=== PATIENT | male | born 1935 | race Caucasian/White ===

== ENCOUNTER 2023-09-01 16:44 | Inpatient (IN) ==
[2023-09-01] MEDS ORDERED: ACETAMINOPHEN 1,000 MG/100 ML VIAL IV STA (17:03)
[2023-09-01] MEDS ORDERED: ONDANSETRON INJ 2 MG/ML 2 ML VIAL IV STA (17:03)
[2023-09-01] MEDS ORDERED: LIDOCAINE/EPINEPH/TETRACAINE 1 EA SYR EXT STA (17:09)
--- NOTE | 2023-09-01 17:09 | Emergency Department Note ---
Impression & Plan Fall, Head injury, Contusion of scalp, Cervical strain, acute, Pneumonia ED Provider Note NAME: DWAYNE ASIF JR AGE: 87 SEX: M : 1935 ARRIVES VIA: Ambulance INFORMANT: Patient, the patient's significant other ED PROVIDER(S): Phill Zheng DO CHIEF COMPLAINT: Head injury HPI: The patient is an 87-year-old male who presented to the emergency department by ambulance after head injury. The patient was getting out of his vehicle. He tried to get his walker but states he fell backwards. He lost his balance and hit the back of his head. He also complains of upper neck pain. The patient arrived via ambulance. He complains of pain all over he has skin tears to both elbows. He complains of left hip pain which is not new. He also complains of headache. The patient does take anticoagulation. He was placed in a collar for cervical spine immobilization prior to arrival. ROS: See above HPI for pertinent positives & negatives. A total of 10 systems reviewed and were otherwise negative. PAST MEDICAL HISTORY: See Below PAST SURGICAL HISTORY: See Below FAMILY HISTORY: See Below SOCIAL HISTORY: See Below HOME MEDICATIONS: See Below ALLERGIES: See Below VITALS: See Below PHYSICAL EXAMINATION: GENERAL: Patient is awake alert in no acute distress patient is resting comfortably and showing no signs of anxiety EYES: The conjunctivae are clear. The pupils are round and reactive. EARS, NOSE, MOUTH AND THROAT: The nose is without any evidence of any deformity. There was swelling and hematoma noted to the back of the occipital scalp. There was a small abrasion but no active bleeding was noted. NECK: rigid cervical collar was placed prior to arrival. It remains in place at this time. RESPIRATORY: Normal respiratory effort is noted there is no evidence of wheezing rhonchi or rales CARDIOVASCULAR: Regular rate and rhythm noted there no murmurs rubs or gallops normal S1 normal S2. GASTROINTESTINAL: The abdomen is soft. Abdomen is nontender. BACK: No midline tenderness or or step-off noted range of motion in flexion extension as well as rotation no signs of muscle spasm noted MUSCULOSKELETAL/EXTREMITIES: There is no evidence of gross deformity full range of motion is noted in the hips and shoulders. There was pain with range of motion testing of the left hip as well as both elbows. No deformity was noted. SKIN: Pedal edema was noted bilaterally. Skin tears were noted on both elbows. NEUROLOGIC: Patient is awake alert and oriented x3. Strength was diminished but symmetric. MEDICAL DECISION MAKING: The patient is an 87-year-old male who presented to the emergency department for an evaluation after a fall. The patient had a fall where he struck the back of his head. He did have a hematoma on the back of his head. There is no area requiring suturing. The patient was placed in a cervical collar prior to arrival. He did have some neck pain. I discussed the patient's laboratory and radiographic studies with him. Given his age and comorbidities I do feel this pneumonia may require further inpatient management. For this reason I [facility] have agreed to evaluate the patient in the emergency department for further management and disposition. Triage Nursing notes reviewed. Prior medical records reviewed Vital Signs: reviewed and remarkable for bradycardia Differential diagnosis: Fracture, dislocation, contusion, intra-abdominal, pneumothorax, intrathoracic, intracranial, neurologic, compartment syndrome, rhabdomyolysis, as well as other pathologies. ER treatment provided: See below Diagnostics interpreted by me: ECG: EKG was obtained in the emergency department. My interpretation is ventricular paced rhythm at 50 bpm. There was no otoe-missouria beats noted. This was compared to a tracing from July 13, 2018. The earlier tracing does reveal atrial fibrillation with a right bundle branch block pattern. Cardiac Monitoring: An order was placed for continuous cardiac monitoring. The monitor shows a rate of 50 bpm with paced rhythm. Laboratory studies: As stated above and show below. Imaging studies: See below. Radiographic imaging was reviewed by myself Consultation(s): I discussed this case with Dr Lofton who [facility]. Past Med/Surg History Medical History (Updated 09/01/23 @ 21:49 by Phill Zheng DO) Arthritis Atrial fibrillation with rapid ventricular response Congestive heart failure Gait abnormality Ischemic cardiomyopathy Microcytic anemia Myocardial Infarction Pacemaker Permanent atrial fibrillation Systolic heart failure TIA (transient ischemic attack) Surgical History H/O hernia repair H/O percutaneous transluminal coronary angioplasty History of appendectomy Family History Father Stroke syndrome Sister Coronary heart disease Mother Cardiac disorder Social History Smoking Status: Unknown if ever smoked Cigarettes Per Day: 20; Second Hand Exposure: No; Do You Dip or Chew Tobacco: No; Hx Alcohol Use: No Hx Substance Use: No Preferred Language: Lao Communication Ability: Effective Visual Impairment: No Limitations Hearing Ability: Normal Quality Control Lead Required: No Beliefs That Will Affect Care: None Current Living Situation: Spouse Current Living Situation Comment: Michelle independent living Feels Safe at Home: Yes Childhood Exposure to Second-Hand Smoke: No caffeine: Yes Dental Care, Regularly: Yes Physical Activity Frequency: 1-2 Times per Week Seatbelt Use: always Sunscreen Use: No Assistive Devices: Walker Allergies Allergies Allergy/AdvReac Type Severity Reaction Status Date / Time No Known Allergies Allergy Verified 09/01/23 20:21 Home Meds Home Medications Medication Instructions Recorded Confirmed nitroglycerin 0.4 mg sublingual 0.4 mg PO UD PRN Chest Pain ##0 07/06/14 09/01/23 tablet rosuvastatin 5 mg tablet 5 mg PO MWF ##0 07/06/14 09/01/23 clopidogrel 75 mg tablet 75 mg PO HS #0 tabs 03/26/18 09/01/23 coenzyme Q10 200 mg capsule 200 mg PO DAILY ##0 03/26/18 09/01/23 digoxin 125 mcg (0.125 mg) tablet 0.125 mg PO 3XWK ##0 03/26/18 09/01/23 furosemide 20 mg tablet 40 mg PO QAM #0 tabs 03/26/18 09/01/23 cholecalciferol (vitamin D3) 50 2,000 units PO DAILY #0 tabs 07/14/19 09/01/23 mcg (2,000 unit) tablet cetirizine 10 mg tablet 10 mg PO DAILY 07/16/20 09/01/23 sacubitril 24 mg-valsartan 26 mg 0.5 tab PO BID 07/16/20 02/23/23 tablet (Entresto) ipratropium bromide 21 mcg (0.03 1 spray intranasal UD 09/01/23 09/01/23 %) nasal spray levothyroxine 75 mcg tablet 75 mcg PO DAILYBB 09/01/23 09/01/23 metoprolol succinate 50 mg 50 mg PO UD 09/01/23 09/01/23 tablet,extended release 24 hr warfarin 5 mg tablet See Rx Instructions .Route .COMPLEX 09/01/23 09/01/23 Previous Rx's Medication Instructions Recorded diclofenac sodium 1 % topical gel 2 g topical QID PRN back pain #100 02/10/22 grams Results & Data (ED) Vital Signs Vital Signs - 24 hr 09/01/23 16:57 09/01/23 17:03 09/01/23 17:08 Temperature 36.7 C Temperature Source Axillary Pulse Rate 51 L 57 L Pulse Rate from SpO2 Sensor Respiratory Rate 20 Blood Pressure 128/80 Blood Pressure [Left Arm] Blood Pressure Mean 96 Blood Pressure Mean [Left Arm] Pulse Oximetry 94 94 Oxygen Delivery Method Room Air Room Air Sepsis Recent Fever Within 48 Hours No Sepsis New/Unexplained Change in Mental Status N/A Sepsis Action Taken by Nursing No Action Required 09/01/23 19:47 09/01/23 16:56 09/01/23 17:00 Temperature Temperature Source Pulse Rate 51 L 50 L Pulse Rate from SpO2 Sensor 51 L 50 L Respiratory Rate 13 18 Blood Pressure Blood Pressure [Left Arm] 120/75 Blood Pressure Mean Blood Pressure Mean [Left Arm] 90 Pulse Oximetry 94 94 Oxygen Delivery Method Sepsis Recent Fever Within 48 Hours Sepsis New/Unexplained Change in Mental Status Sepsis Action Taken by Nursing 09/01/23 17:10 09/01/23 17:20 09/01/23 17:30 Temperature Temperature Source Pulse Rate 50 L 51 L Pulse Rate from SpO2 Sensor 50 L 50 L 50 L Respiratory Rate 20 21 Blood Pressure Blood Pressure [Left Arm] Blood Pressure Mean Blood Pressure Mean [Left Arm] Pulse Oximetry 95 97 95 Oxygen Delivery Method Sepsis Recent Fever Within 48 Hours Sepsis New/Unexplained Change in Mental Status Sepsis Action Taken by Nursing 09/01/23 17:40 09/01/23 17:50 09/01/23 18:00 Temperature Temperature Source Pulse Rate 51 L 50 L 50 L Pulse Rate from SpO2 Sensor 51 L 49 L 50 L Respiratory Rate 25 H 21 19 Blood Pressure Blood Pressure [Left Arm] Blood Pressure Mean Blood Pressure Mean [Left Arm] Pulse Oximetry 91 98 96 Oxygen Delivery Method Sepsis Recent Fever Within 48 Hours Sepsis New/Unexplained Change in Mental Status Sepsis Action Taken by Nursing 09/01/23 18:10 09/01/23 18:20 09/01/23 18:30 Temperature Temperature Source Pulse Rate 50 L 50 L 50 L Pulse Rate from SpO2 Sensor 50 L 50 L 50 L Respiratory Rate 22 22 22 Blood Pressure Blood Pressure [Left Arm] Blood Pressure Mean Blood Pressure Mean [Left Arm] Pulse Oximetry 95 95 97 Oxygen Delivery Method Sepsis Recent Fever Within 48 Hours Sepsis New/Unexplained Change in Mental Status Sepsis Action Taken by Nursing 09/01/23 18:40 09/01/23 18:50 09/01/23 19:17 Temperature Temperature Source Pulse Rate 50 L 50 L 54 L Pulse Rate from SpO2 Sensor 50 L Respiratory Rate 21 15 Blood Pressure Blood Pressure [Left Arm] Blood Pressure Mean Blood Pressure Mean [Left Arm] Pulse Oximetry 95 91 Oxygen Delivery Method Sepsis Recent Fever Within 48 Hours Sepsis New/Unexplained Change in Mental Status Sepsis Action Taken by Nursing 09/01/23 19:20 09/01/23 19:30 09/01/23 19:40 Temperature Temperature Source Pulse Rate 52 L 50 L 50 L Pulse Rate from SpO2 Sensor 50 L 50 L Respiratory Rate 23 21 14 Blood Pressure Blood Pressure [Left Arm] Blood Pressure Mean Blood Pressure Mean [Left Arm] Pulse Oximetry 96 96 Oxygen Delivery Method Sepsis Recent Fever Within 48 Hours Sepsis New/Unexplained Change in Mental Status Sepsis Action Taken by Nursing 09/01/23 21:00 Temperature Temperature Source Pulse Rate 50 L Pulse Rate from SpO2 Sensor Respiratory Rate Blood Pressure Blood Pressure [Left Arm] Blood Pressure Mean Blood Pressure Mean [Left Arm] Pulse Oximetry Oxygen Delivery Method Sepsis Recent Fever Within 48 Hours Sepsis New/Unexplained Change in Mental Status Sepsis Action Taken by Long-Term Medications Current Medication List: was personally reviewed by me Laboratory Data Attestation: I reviewed the patient's lab results. 09/01/23 15:01 09/01/23 15:01 Lab Results 09/01/23 09/01/23 09/01/23 Range/Units 15:01 15:01 15:01 WBC 6.92 (4.8-10.8) K/ul RBC 4.06 L (4.70-6.10) M/uL Hgb 14.1 (14.0-18.0) g/dl Hct 40.7 L (42.0-52.0) % MCV 100.2 H (80.0-100.0) fL MCH 34.7 H (25.0-34.0) pg MCHC 34.6 (32.0-36.0) g/dL RDW Std Deviation 50.9 H (36.4-46.3) fL RDW Coeff of Ming 13.8 (11.5-14.5) % Plt Count 167 (130-400) K/uL MPV 10.5 (9.4-12.4) fL Immature Gran % (Auto) 0.9 % Neut % (Auto) 69.8 % Lymph % (Auto) 19.9 % Island % (Auto) 7.1 % Eos % (Auto) 1.7 % Baso % (Auto) 0.6 % Neut # (Auto) 4.83 (1.40-6.50) K/uL Lymph # (Auto) 1.38 (1.20-3.40) K/uL Island # (Auto) 0.49 (0.11-0.59) K/uL Eos # (Auto) 0.12 (0.00-0.50) K/uL Baso # (Auto) 0.04 (0.00-0.20) K/uL Immature Gran # (Auto) 0.06 (0.01-0.20) K/uL PT 27.6 H (9.0-12.0) Seconds INR 2.7 H (0.9-1.1) APTT 32.3 H (21.0-31.0) Seconds PTT Ratio 1.1 Sodium 140 (136-145) mmol/L Potassium 4.4 (3.5-5.1) mmol/L Chloride 107 (98-107) mmol/L Carbon Dioxide 27 (21-32) mmol/L Anion Gap 6 (3-11) BUN 28 H (6-23) mg/dl Creatinine 1.05 (0.6-1.4) mg/dl Est Cr Clr Drug Dosing Not Reportable Est GFR ( Amer) 73.1 ml/min Est GFR (Non-Af Amer) 63.1 ml/min BUN/Creatinine Ratio 26.7 H (10-20) Glucose 109 H (70-99(Fasting)) mg/dl Lactate (0.4-2.0) mmol/L Calcium 9.5 (8.6-10.3) mg/dl Magnesium 2.1 (1.7-2.4) mg/dl Total Bilirubin 1.0 (0.2-1.0) mg/dl AST 24 (13-39) U/L ALT 17 (7-52) U/L Alkaline Phosphatase 76 (34-104) U/L Troponin I High Sens 55.6 H* (0-20) pg/ml C-Reactive Protein < 0.50 (0-0.5) mg/dl Total Protein 7.0 (6.0-8.3) gm/dl Albumin 3.9 (3.4-5.0) gm/dl Globulin 3.1 (2.5-4.0) gm/dl Albumin/Globulin Ratio 1.3 (0.9-2) Procalcitonin (0-0.5) ng/ml TSH 6.583 H (0.300-4.500) uIu/ml Free T4 1.03 (0.61-1.60) ng/dl Digoxin (0.8-2.0) ng/ml Adenovirus (PCR) (NotDetected) B. pertussis DNA (PCR) (NotDetected) B.parapertussis DNA PCR (NotDetected) C. pneumoniae DNA (PCR) (NotDetected) Coronavirus OC43 (PCR) (NotDetected) Coronavirus HKU1 (PCR) (NotDetected) Coronavirus 229E (PCR) (NotDetected) SARS-CoV-2 (PCR) (NotDetected) Coronavirus NL63 (PCR) (NotDetected) Human Metapneumovir PCR (NotDetected) Influenza Type A (PCR) (NotDetected) Influenza Type B (PCR) (NotDetected) M. pneumoniae (PCR) (NotDetected) Parainfluenza 1 (PCR) (NotDetected) Parainfluenza 2 (PCR) (NotDetected) Parainfluenza 3 (PCR) (NotDetected) Parainfluenza 4 (PCR) (NotDetected) RSV (PCR) (NotDetected) Entero/Rhino (PCR) (NotDetected) 09/01/23 09/01/23 09/01/23 Range/Units 15:01 15:01 18:43 WBC (4.8-10.8) K/ul RBC (4.70-6.10) M/uL Hgb (14.0-18.0) g/dl Hct (42.0-52.0) % MCV (80.0-100.0) fL MCH (25.0-34.0) pg MCHC (32.0-36.0) g/dL RDW Std Deviation (36.4-46.3) fL RDW Coeff of Ming (11.5-14.5) % Plt Count (130-400) K/uL MPV (9.4-12.4) fL Immature Gran % (Auto) % Neut % (Auto) % Lymph % (Auto) % Island % (Auto) % Eos % (Auto) % Baso % (Auto) % Neut # (Auto) (1.40-6.50) K/uL Lymph # (Auto) (1.20-3.40) K/uL Island # (Auto) (0.11-0.59) K/uL Eos # (Auto) (0.00-0.50) K/uL Baso # (Auto) (0.00-0.20) K/uL Immature Gran # (Auto) (0.01-0.20) K/uL PT (9.0-12.0) Seconds INR (0.9-1.1) APTT (21.0-31.0) Seconds PTT Ratio Sodium (136-145) mmol/L Potassium (3.5-5.1) mmol/L Chloride (98-107) mmol/L Carbon Dioxide (21-32) mmol/L Anion Gap (3-11) BUN (6-23) mg/dl Creatinine (0.6-1.4) mg/dl Est Cr Clr Drug Dosing Est GFR ( Amer) ml/min Est GFR (Non-Af Amer) ml/min BUN/Creatinine Ratio (10-20) Glucose (70-99(Fasting)) mg/dl Lactate (0.4-2.0) mmol/L Calcium (8.6-10.3) mg/dl Magnesium (1.7-2.4) mg/dl Total Bilirubin (0.2-1.0) mg/dl AST (13-39) U/L ALT (7-52) U/L Alkaline Phosphatase (34-104) U/L Troponin I High Sens (0-20) pg/ml C-Reactive Protein (0-0.5) mg/dl Total Protein (6.0-8.3) gm/dl Albumin (3.4-5.0) gm/dl Globulin (2.5-4.0) gm/dl Albumin/Globulin Ratio (0.9-2) Procalcitonin < 0.05 (0-0.5) ng/ml TSH (0.300-4.500) uIu/ml Free T4 (0.61-1.60) ng/dl Digoxin 0.5 L (0.8-2.0) ng/ml Adenovirus (PCR) Not Detected (NotDetected) B. pertussis DNA (PCR) Not Detected (NotDetected) B.parapertussis DNA PCR Not Detected (NotDetected) C. pneumoniae DNA (PCR) Not Detected (NotDetected) Coronavirus OC43 (PCR) Not Detected (NotDetected) Coronavirus HKU1 (PCR) Not Detected (NotDetected) Coronavirus 229E (PCR) Not Detected (NotDetected) SARS-CoV-2 (PCR) Not Detected (NotDetected) Coronavirus NL63 (PCR) Not Detected (NotDetected) Human Metapneumovir PCR Not Detected (NotDetected) Influenza Type A (PCR) Not Detected (NotDetected) Influenza Type B (PCR) Not Detected (NotDetected) M. pneumoniae (PCR) Not Detected (NotDetected) Parainfluenza 1 (PCR) Not Detected (NotDetected) Parainfluenza 2 (PCR) Not Detected (NotDetected) Parainfluenza 3 (PCR) Not Detected (NotDetected) Parainfluenza 4 (PCR) Not Detected (NotDetected) RSV (PCR) Not Detected (NotDetected) Entero/Rhino (PCR) Not Detected (NotDetected) 09/01/23 09/01/23 Range/Units 19:48 19:48 WBC (4.8-10.8) K/ul RBC (4.70-6.10) M/uL Hgb (14.0-18.0) g/dl Hct (42.0-52.0) % MCV (80.0-100.0) fL MCH (25.0-34.0) pg MCHC (32.0-36.0) g/dL RDW Std Deviation (36.4-46.3) fL RDW Coeff of Ming (11.5-14.5) % Plt Count (130-400) K/uL MPV (9.4-12.4) fL Immature Gran % (Auto) % Neut % (Auto) % Lymph % (Auto) % Island % (Auto) % Eos % (Auto) % Baso % (Auto) % Neut # (Auto) (1.40-6.50) K/uL Lymph # (Auto) (1.20-3.40) K/uL Island # (Auto) (0.11-0.59) K/uL Eos # (Auto) (0.00-0.50) K/uL Baso # (Auto) (0.00-0.20) K/uL Immature Gran # (Auto) (0.01-0.20) K/uL PT (9.0-12.0) Seconds INR (0.9-1.1) APTT (21.0-31.0) Seconds PTT Ratio Sodium (136-145) mmol/L Potassium (3.5-5.1) mmol/L Chloride (98-107) mmol/L Carbon Dioxide (21-32) mmol/L Anion Gap (3-11) BUN (6-23) mg/dl Creatinine (0.6-1.4) mg/dl Est Cr Clr Drug Dosing Est GFR ( Amer) ml/min Est GFR (Non-Af Amer) ml/min BUN/Creatinine Ratio (10-20) Glucose (70-99(Fasting)) mg/dl Lactate 1.5 (0.4-2.0) mmol/L Calcium (8.6-10.3) mg/dl Magnesium (1.7-2.4) mg/dl Total Bilirubin (0.2-1.0) mg/dl AST (13-39) U/L ALT (7-52) U/L Alkaline Phosphatase (34-104) U/L Troponin I High Sens 57.4 H* (0-20) pg/ml C-Reactive Protein < 0.50 (0-0.5) mg/dl Total Protein (6.0-8.3) gm/dl Albumin (3.4-5.0) gm/dl Globulin (2.5-4.0) gm/dl Albumin/Globulin Ratio (0.9-2) Procalcitonin (0-0.5) ng/ml TSH (0.300-4.500) uIu/ml Free T4 (0.61-1.60) ng/dl Digoxin (0.8-2.0) ng/ml Adenovirus (PCR) (NotDetected) B. pertussis DNA (PCR) (NotDetected) B.parapertussis DNA PCR (NotDetected) C. pneumoniae DNA (PCR) (NotDetected) Coronavirus OC43 (PCR) (NotDetected) Coronavirus HKU1 (PCR) (NotDetected) Coronavirus 229E (PCR) (NotDetected) SARS-CoV-2 (PCR) (NotDetected) Coronavirus NL63 (PCR) (NotDetected) Human Metapneumovir PCR (NotDetected) Influenza Type A (PCR) (NotDetected) Influenza Type B (PCR) (NotDetected) M. pneumoniae (PCR) (NotDetected) Parainfluenza 1 (PCR) (NotDetected) Parainfluenza 2 (PCR) (NotDetected) Parainfluenza 3 (PCR) (NotDetected) Parainfluenza 4 (PCR) (NotDetected) RSV (PCR) (NotDetected) Entero/Rhino (PCR) (NotDetected) Administered Medications Discontinued Medications Acetaminophen (Ofirmev) 1,000 mg in 100 mls @ 400 mls/hr IV NOW STA Stop: 09/01/23 17:17 Last Infusion: 09/01/23 18:02 Dose: 0 mls/hr Documented By: Admin: 09/01/23 17:47 Dose: 400 mls/hr Documented By: SAW Ceftriaxone Sodium (Rocephin) 2,000 mg in 50 mls @ 100 mls/hr IV NOW STA Stop: 09/01/23 20:18 Last Infusion: 09/01/23 20:50 Dose: 0 mls/hr Documented By: Admin: 09/01/23 20:04 Dose: 100 mls/hr Documented By: MELY Lidocaine (Lidocaine/Epineph/Tetracaine 1 Ea Syr) 1 each EXT NOW STA Stop: 09/01/23 17:10 Last Admin: 09/01/23 17:47 Dose: 1 each Documented By: ML Ondansetron HCl (Ondansetron Inj 2 Mg/Ml 2 Ml Vial) 4 mg IV NOW STA Stop: 09/01/23 17:04 Last Admin: 09/01/23 17:47 Dose: 4 mg Documented By: ML Imaging Data Attestation: I personally reviewed and interpreted this imaging study as follows: My Impression: 1 view chest x-ray was obtained in the emergency department. My interpretation is no free air, right upper lobe infiltrate was noted, final report below. CT of the brain was obtained in the emergency department. My interpretation is no intracranial hemorrhage or mass effect, final report below. X-ray of the left hip and pelvis was obtained in the emergency department. My interpretation is no definite fracture, final report below. Radiologist's Impression: Cervical Spine CT 09/01/23 17:03 Exam(s): CT C SPINE EXAM: CT Cervical Spine Without Intravenous Contrast CLINICAL HISTORY: Reason for exam: fall. TECHNIQUE: Axial computed tomography images of the cervical spine without intravenous contrast. CTDI is 37.22 mGy and DLP is 1229.05 mGy-cm. Automated exposure control was utilized for the study. A dose lowering technique was utilized adhering to the principles of ALARA. COMPARISON: No relevant prior studies available. FINDINGS: The vertebral body heights are maintained. The craniocervical junction is intact. The atlanto-dens interval is maintained. The dens is intact. There is no spondylolisthesis. Multilevel cervical spondylosis and degenerative disc disease. Straightening of the cervical lordosis. The unenhanced neck soft tissues are grossly unremarkable. The visualized lung apices are grossly clear. IMPRESSION: No acute fracture or subluxation of the cervical spine. Electronically signed by: Danial Kapoor MD 09/01/23 19:51 PM Chest X-Ray 09/01/23 17:03 XR chest 1V portable HISTORY: weakness COMPARISON: Chest 01/28/2022. FINDINGS: No pneumothorax. No pleural effusions. The cardiac silhouette remains enlarged. There is a left-sided pacemaker/defibrillator again noted. No evidence for pulmonary edema. The left lung is clear. There is a new right upper lobe hazy airspace opacity. This likely represents a pneumonia. IMPRESSION: 1. A new right upper lobe airspace opacity which likely represents a pneumonia. 1-2 month chest x-ray follow-up recommended to ensure resolution. 2. Stable cardiomegaly. ACT 112: Negative or not required by law. Electronically signed by: Anatoliy Cardoza M.D. 09/01/2023 5:52 PM Elbow X-Ray 09/01/23 17:03 XR elbow LT min 3V routine, XR elbow RT min 3V routine CLINICAL HISTORY: fall. Bilateral elbow pain. COMPARISON STUDY: None. FINDINGS: Posterior soft tissue swelling within the bilateral elbows. No fracture or dislocation within the right or left elbow. No elbow effusions. Vascular calcifications are noted. IMPRESSION: No fractures within the right or left elbow. ACT 112: Negative or not required by law. Electronically signed by: Anatoliy Cardoza M.D. 09/01/2023 5:54 PM Elbow X-Ray 09/01/23 17:03 XR elbow LT min 3V routine, XR elbow RT min 3V routine CLINICAL HISTORY: fall. Bilateral elbow pain. COMPARISON STUDY: None. FINDINGS: Posterior soft tissue swelling within the bilateral elbows. No fracture or dislocation within the right or left elbow. No elbow effusions. Vascular calcifications are noted. IMPRESSION: No fractures within the right or left elbow. ACT 112: Negative or not required by law. Electronically signed by: Anatoliy Cardoza M.D. 09/01/2023 5:[address] 09/01/23 17:03 Exam(s): CT HEAD Without Contrast EXAM: CT Head Without Intravenous Contrast CLINICAL HISTORY: Reason for exam: fall. TECHNIQUE: Axial computed tomography images of the head/brain without intravenous contrast. CTDI is 37.22 mGy and DLP is 1229.05 mGy-cm. Automated exposure control was utilized for the study. A dose lowering technique was utilized adhering to the principles of ALARA. COMPARISON: No relevant prior studies available. FINDINGS: No acute intracranial hemorrhage. No midline shift or mass effect. The territorial alcala-white matter differentiation is maintained throughout. Age-related cerebral volume loss. Periventricular and subcortical white matter hypoattenuation, consistent with chronic microangiopathy. The visualized orbits appear grossly unremarkable. The calvarium is intact. The visualized paranasal sinuses and mastoid air cells are grossly clear. IMPRESSION: No acute intracranial hemorrhage, midline shift, or mass effect. Electronically signed by: Danial Kapoor MD 09/01/23 19:51 PM Hip/Pelvis X-Ray 09/01/23 17:03 XR hip LT 2V w pelvis CLINICAL HISTORY: fall. Pelvic pain. COMPARISON STUDY: Pelvis and hips 12/07/2013. FINDINGS: No acute fracture or dislocation within the pelvis or hips. Vascular calcifications are noted. The sacrum appears intact. Moderate to severe right hip osteoarthritis. There is severe left hip osteoarthritis with [id number] articulation, large osteophytes, and subchondral sclerosis. There is flattening of the superior aspect of the femoral head which is likely due to the long- standing severe osteoarthritis. A superimposed avascular necrosis would be difficult to exclude. IMPRESSION: 1. No acute fracture or dislocation within the pelvis or hips. 2. 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 3. There is flattening of the superior aspect of the femoral head which is likely due to the long-standing severe osteoarthritis. A superimposed avascular necrosis would be difficult to exclude. ACT 112: Negative or not required by law. Electronically signed by: Anatoliy Cardoza M.D. 09/01/2023 5:57 PM Discharge Plan Visit Data Chief Complaint: Fall Stated Complaint: FALL ED Provider: Phill Zheng Discharge Problem: Fall, Head injury, Contusion of scalp, Cervical strain, acute, Pneumonia Patient Disposition: Being Evaluated by Hospitalist Forms Stand Alone Forms: [facility] [employer] Prescriptions Prescriptions: No Action nitroglycerin 0.4 mg Tablet, Sublingual 0.4 mg PO UD PRN (Reason: Chest Pain) Qty: 0 rosuvastatin 5 mg Tablet 5 mg PO MWF Qty: 0 Patient Comments: PM clopidogrel 75 mg Tablet 75 mg PO HS Qty: 0 digoxin 125 mcg Tablet 0.125 mg PO 3XWK Qty: 0 Patient Comments: TAKE , , WED Rx Instructions: PT TAKES Wednesday AND WEDNESDAY furosemide 20 mg Tablet 40 mg PO QAM Qty: 0 coenzyme Q10 200 mg Capsule 200 mg PO DAILY Qty: 0 cholecalciferol (vitamin D3) 2,000 unit tablet 2,000 units PO DAILY Qty: 0 Entresto 24-26 mg tablet 0.5 tab PO BID cetirizine 10 mg tablet 10 mg PO DAILY diclofenac sodium 1 % gel 2 g topical QID PRN (Reason: back pain) Qty: 100 2RF Rx Instructions: apply to back metoprolol succinate 50 mg tablet extended release 24 hr 50 mg PO UD Rx Instructions: take 2 tablets in the morning and 1 & 1/2 tablet in the evening ipratropium bromide 21 mcg (0.03 %) spray,non-aerosol 1 spray INTRANASAL UD levothyroxine 75 mcg tablet 75 mcg PO DAILYBB Rx Instructions: Take 1 tablet by mouth once daily warfarin 5 mg tablet See Rx Instructions .ROUTE .COMPLEX Rx Instructions: 2.5 mg orally in the evening of MON,WED,FRI....take 5 mg all other days Referrals Referrals: PCP,NO [Physician] -
[2023-09-01 17:38] LABS: Alanine Aminotransferase 17 U/L (7-52); Albumin Globulin Ratio 1.3 (0.9-2); Albumin Level 3.9 gm/dl (3.4-5.0); Alkaline Phosphatase 76 U/L (34-104); Anion Gap 6 (3-11); Aspartate Aminotransferase 24 U/L (13-39); BUN Creatinine Ratio 26.7 (10-20); Blood Urea Nitrogen 28 mg/dl (6-23); Calcium 9.5 mg/dl (8.6-10.3); Carbon Dioxide 27 mmol/L (21-32); Chloride 107 mmol/L (98-107); Est GFR (African American) 73.1 ml/min; Est GFR (Non-African American) 63.1 ml/min; Globulin 3.1 gm/dl (2.5-4.0); Glucose 109 mg/dl (70-99(Fasting)); Magnesium 2.1 mg/dl (1.7-2.4); Potassium 4.4 mmol/L (3.5-5.1); Sodium 140 mmol/L (136-145)
[2023-09-01 17:39] LABS: Basophils # (auto) 0.04 K/uL (0.00-0.20); Basophils % (auto) 0.6 %; Eosinophils # (auto) 0.12 K/uL (0.00-0.50); Eosinophils % (auto) 1.7 %; Hematocrit (blood only) 40.7 % (42.0-52.0); Hemoglobin 14.1 g/dl (14.0-18.0); Immature Granulocytes # (auto) 0.06 K/uL (0.01-0.20); Immature Granulocytes % (auto) 0.9 %; Lymphocytes # (auto) 1.38 K/uL (1.20-3.40); Lymphocytes % (auto) 19.9 %; Mean Corpuscular Hemoglobin 34.7 pg (25.0-34.0); Mean Corpuscular Hgb Conc 34.6 g/dL (32.0-36.0); Mean Corpuscular Volume 100.2 fL (80.0-100.0); Mean Platelet Volume 10.5 fL (9.4-12.4); Monocytes # (auto) 0.49 K/uL (0.11-0.59); Monocytes % (auto) 7.1 %; Neutrophils # (auto) 4.83 K/uL (1.40-6.50); Neutrophils % (auto) 69.8 %; Platelet Count 167 K/uL (130-400); RDW Coefficient of Variation 13.8 % (11.5-14.5); RDW Standard Deviation 50.9 fL (36.4-46.3); Red Blood Count 4.06 M/uL (4.70-6.10); White Blood Count 6.92 K/ul (4.8-10.8)
[2023-09-01 17:47] LABS: INR 2.7 (0.9-1.1); Partial Thromboplastin Ratio 1.1; Partial Thromboplastin Time 32.3 Seconds (21.0-31.0); Prothrombin Time 27.6 Seconds (9.0-12.0)
--- NOTE | 2023-09-01 17:53 | XRay Report ---
XR chest 1V portable HISTORY: weakness COMPARISON: Chest 01/28/2022. FINDINGS: No pneumothorax. No pleural effusions. The cardiac silhouette remains enlarged. There is a left-sided pacemaker/defibrillator again noted. No evidence for pulmonary edema. The left lung is bay ar. There is a new right upper lobe hazy airspace opacity. This likely represents a pneumonia. IMPRESSION: 1. A new right upper lobe airspace opacity which likely represents a pneumonia. 1-2 month chest x-ray follow-up recommended to ensure resolution. 2. Stable cardiomegaly. ACT 112: Negative or not required by law. Electronically signed by: Anatoliy Cardoza M.D. 09/01/2023 5:52 PM
[2023-09-01 17:54] LABS: Thyroid Stimulating Hormone 6.583 uIu/ml (0.300-4.500)
--- NOTE | 2023-09-01 17:55 | XRay Report ---
XR elbow LT min 3V routine, XR elbow RT min 3V routine CLINICAL HISTORY: fall. Bilateral elbow pain. COMPARISON STUDY: None. FINDINGS: Posterior soft tissue swelling within the bilateral elbows. No fracture or dislocation with in the right or left elbow. No elbow effusions. Vascular calcifications are noted. IMPRESSION: No fractures within the right or left elbow. ACT 112: Negative or not required by law. Electronically signed by: Anatoliy Cardoza M.D. 09/01/2023 5:54 PM
--- NOTE | 2023-09-01 17:58 | XRay Report ---
XR hip LT 2V w pelvis CLINICAL HISTORY: fall. Pelvic pain. COMPARISON STUDY: Pelvis and hips 12/07/2013. FINDINGS: No acute fracture or dislocation within the pelvis or hips. Vascular calcifications are not ed. The sacrum appears intact. Moderate to severe right hip osteoarthritis. There is severe left hip osteoarthritis with [id number]-bj-[id number] articulation, large osteophytes, and subchondral sclerosis. There is flattening of the superior aspect of the femoral head which is likely due to the long-standing sever e osteoarthritis. A superimposed avascular necrosis would be difficult to exclude. IMPRESSION: 1. No acute fracture or dislocation within the pelvis or hips. 2. 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 3. There is flattening of the superior aspect of the femoral head which is likely due to the long-sta nding severe osteoarthritis. A superimposed avascular necrosis would be difficult to exclude. ACT 112: Negative or not required by law. Electronically signed by: Anatoliy Cardoza M.D. 09/01/2023 5:57 PM
[2023-09-01 18:03] LABS: Troponin I High Sensitivity 55.6 pg/ml (0-20)
[2023-09-01 18:27] LABS: T4 Free Thyroxine 1.03 ng/dl (0.61-1.60)
[2023-09-01 18:55] LABS: C Reactive Protein < 0.50 mg/dl (0-0.5)
[2023-09-01] MEDS ORDERED: cefTRIAXone SODIUM 2,000 MG/50 ML BAG IV STA (19:49)
--- NOTE | 2023-09-01 19:51 | CT Scan Report ---
Exam(s): CT HEAD Without Contrast EXAM: CT Head Without Intravenous Contrast CLINICAL HISTORY: Reason for exam: fall. TECHNIQUE: Axial computed tomography images of the head/brain without intravenous contrast. CTDI is 37.22 mGy and DLP is 1229.05 mGy-cm. Automated exposure control was utilized for the study. A dose lowering technique was utilized adhering to the principles of ALARA. COMPARISON: No relevant prior studies available. FINDINGS: No acute intracranial hemorrhage. No midline shift or mass effect. The territorial alcala-white matter differentiation is maintained throughout. Age-related cerebral volume loss. Periventricular and subcortical white matter hypoattenuation, consistent with chronic microangiopathy. The visualized orbits appear grossly unremarkable. The calvarium is intact. The visualized paranasal sinuses and mastoid air cells are grossly clear. IMPRESSION: No acute intracranial hemorrhage, midline shift, or mass effect. Electronically signed by: Danial Kapoor MD 09/01/23 19:51 PM
[2023-09-01 19:53] LABS: Adenovirus PCR Not Detected (NotDetected); Bordetella parapertussis PCR Not Detected (NotDetected); Bordetella pertussis PCR Not Detected (NotDetected); Chlamydia pneumoniae PCR Not Detected (NotDetected); Coronavirus 229E PCR Not Detected (NotDetected); Coronavirus CoV-2 (COVID19)PCR Not Detected (NotDetected); Coronavirus HKU1 PCR Not Detected (NotDetected); Coronavirus NL63 PCR Not Detected (NotDetected); Coronavirus OC43PCR Not Detected (NotDetected); Human Metapneumovirus PCR Not Detected (NotDetected); Influenza A PCR Not Detected (NotDetected); Influenza B PCR Not Detected (NotDetected); Mycoplasma pneumoniae PCR Not Detected (NotDetected); Parainfluenza Virus 1 PCR Not Detected (NotDetected); Parainfluenza Virus 2 PCR Not Detected (NotDetected); Parainfluenza Virus 3 PCR Not Detected (NotDetected); Parainfluenza Virus 4 PCR Not Detected (NotDetected); Respiratory Syncytial VirusPCR Not Detected (NotDetected); Rhinovirus/Enterovirus PCR Not Detected (NotDetected)
--- NOTE | 2023-09-01 19:53 | CT Scan Report ---
Exam(s): CT C SPINE EXAM: CT Cervical Spine Without Intravenous Contrast CLINICAL HISTORY: Reason for exam: fall. TECHNIQUE: Axial computed tomography images of the cervical spine without intravenous contrast. CTDI is 37.22 mGy and DLP is 1229.05 mGy-cm. Automated exposure control was utilized for the study. A dose lowering technique was utilized adhering to the principles of ALARA. COMPARISON: No relevant prior studies available. FINDINGS: The vertebral body heights are maintained. The craniocervical junction is intact. The atlanto-dens interval is maintained. The dens is intact. There is no spondylolisthesis. Multilevel cervical spondylosis and degenerative disc disease. Straightening of the cervical lordosis. The unenhanced neck soft tissues are grossly unremarkable. The visualized lung apices are grossly clear. IMPRESSION: No acute fracture or subluxation of the cervical spine. Electronically signed by: Danial Kapoor MD 09/01/23 19:51 PM
[2023-09-01 20:25] LABS: C Reactive Protein < 0.50 mg/dl (0-0.5)
[2023-09-01 20:51] LABS: Troponin I High Sensitivity 57.4 pg/ml (0-20)
[2023-09-01 21:53] LABS: Creatine Kinase 60 U/L (30-223)
[2023-09-01] MEDS ORDERED: AMPICILLIN/SULBACTAM SOD 3,000 MG in SODIUM CHLOR 0.9% MINI-B 100 ML IV STA (22:32)
--- NOTE | 2023-09-01 22:32 | History & Physical Report ---
Date of Service September 01, 2023 Assessment & Plan (1) Aspiration pneumonia: Plan: Possible esophageal dysfunction No sepsis for now. Traumatic scalp hematoma secondary to recurrent falls/ambulatory dysfunction hx A-fib on Coumadin, INR therapeutic Asymptomatic troponin elevation chronic systolic heart failure (EF 20 to 24%, TTE 2021) status post ICD, patient euvolemic valvular heart disease (mild MR, severe TR) hypertension, stable hyperlipidemia, on statin Rx hypothyroidism, TSH slightly elevated memory impairment as per records past tobacco abuse OBS Medical telemetry given troponin elevation Unasyn followed by Augmentin course [employer] eval, aspiration precautions Appropriate to hold Plavix/Coumadin for now given scalp hematoma Follow H&H, vitamin K reversal if with significant hemoglobin drop Cardiology consult Re: Recurrent falls, ambulatory dysfunction, history Coumadin Rx PT OT eval DVT prophylaxis. SCDs if INR less than 2 while Coumadin on hold re: scalp hematoma Full code Patient family requesting updates providers. Ms. Cary Larson (spouse), contact #[phone]. Ms. Bea Brown (daughter), contact #[phone]. Text document was generated using [employer] voice recognition software. It may contain grammatical or spelling errors. Kindly contact undersigned for clarification of any documentation item in question. History of Present Illness Chief Complaint: Fall Primary Care Provider: Aftab Perla MD History obtained from patient, family, and records. 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 Last confinement 2017 for sepsis secondary to aspiration pneumonitis. Patient seen at [facility] last month for follow-up visit. Concern for ambulatory dysfunction secondary to left knee issues. Patient losing balance easily. 2 falls in 1 month as per documentation. Benefits of anticoagulation still appear to outweigh risks as per note. Patient coughing more than usual the last few days as per . Junky cough symptoms. Occasional sensation of food getting stuck in his throat as per . No recent COVID-19 contacts. Patient was getting out of the vehicle when he lost his balance causing him to fall backwards as he tried to get to his walker. Bleeding wound at the back of the head. Achy head and upper neck pain. No chest pain, no SOB. No syncope/LOC. IV ceftriaxone administered at the ER. 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 Allergies Allergy/AdvReac Type Severity Reaction Status Date / Time No Known Allergies Allergy Verified 09/02/23 08:02 Home Medications Medication Instructions Recorded Confirmed Type nitroglycerin 0.4 mg sublingual 0.4 mg PO UD PRN Chest Pain ##0 07/06/14 09/01/23 History tablet rosuvastatin 5 mg tablet 5 mg PO MWF ##0 07/06/14 09/01/23 History clopidogrel 75 mg tablet 75 mg PO HS #0 tabs 03/26/18 09/01/23 History coenzyme Q10 200 mg capsule 200 mg PO QAM ##0 03/26/18 09/01/23 History digoxin 125 mcg (0.125 mg) tablet 0.125 mg PO 3XWK ##0 03/26/18 09/01/23 History furosemide 20 mg tablet 40 mg PO QAM #0 tabs 03/26/18 09/01/23 History cholecalciferol (vitamin D3) 50 2,000 units PO DAILY #0 tabs 07/14/19 09/01/23 History mcg (2,000 unit) tablet cetirizine 10 mg tablet 10 mg PO QAM 07/16/20 09/01/23 History sacubitril 24 mg-valsartan 26 mg 0.5 tab PO AMPM 07/16/20 09/01/23 History tablet (Entresto) ipratropium bromide 21 mcg (0.03 2 spray intranasal BID PRN rhinitis 09/01/23 09/01/23 History %) nasal spray levothyroxine 75 mcg tablet 75 mcg PO DAILYBB 09/01/23 09/01/23 History metoprolol succinate 50 mg 50 mg PO UD 09/01/23 09/01/23 History tablet,extended release 24 hr warfarin 5 mg tablet See Rx Instructions .Route .COMPLEX 09/01/23 09/01/23 History Past Med/Surg History Medical History (System 09/02/23 @ 08:02 by Faiza Pompa) Microcytic anemia Gait abnormality Permanent atrial fibrillation Ischemic cardiomyopathy Systolic heart failure Arthritis Myocardial Infarction Pacemaker Congestive heart failure TIA (transient ischemic attack) Atrial fibrillation with rapid ventricular response Surgical History (System 09/02/23 @ 08:02 by Faiza Pompa) H/O hernia repair History of appendectomy H/O percutaneous transluminal coronary angioplasty Family History (System 09/02/23 @ 08:02 by Faiza Pompa) Father Stroke syndrome Sister Coronary heart disease Mother Cardiac disorder Social History (System 09/02/23 @ 08:02 by Faiza Pompa) Smoking Status: Former smoker Cigarettes Per Day: 20; Second Hand Exposure: Yes; Do You Dip or Chew Tobacco: No; Hx Alcohol Use: Yes Alcohol type: beer Hx Substance Use: No Preferred Language: Salvadorean Communication Ability: Effective Visual Impairment: No Limitations Hearing Ability: Normal Cardiology Specialist Required: No Beliefs That Will Affect Care: None Current Living Situation: Spouse Current Living Situation Comment: Independent living at [facility] Feels Safe at Home: Yes Childhood Exposure to Second-Hand Smoke: No caffeine: Yes Dental Care, Regularly: Yes Physical Activity Frequency: 1-2 Times per Week Seatbelt Use: always Sunscreen Use: No Assistive Devices: Walker Review of Systems Review of Systems: As per HPI, all other systems reviewed and negative Physical Exam Physical Exam: GENERAL: Comfortable, slightly anxious, no respiratory distress SKIN: Pallor, warm HEENT: Alopecia, tender contusion posterior scalp, pale palpebral conjunctivae, no ptosis, dry buccal mucosa NECK : Supple, no tenderness CHEST : CTA, no tenderness HEART : Bradycardic, systolic murmur ABDOMEN: Some distention, nontender EXTREMITIES : Dressing noted over elbows, no LE swelling/tenderness, no other conspicuous deformities noted NEUROLOGIC : Coherent, no facial asymmetry, gait and stance not assessed Results & Data Results & Data Vital Signs (Past 12 Hours) Vital Signs Temp Pulse Pulse Resp BP BP Pulse Ox 09/01/23 21:54 50 L 14 134/89 95 09/01/23 21:00 50 L 09/01/23 19:40 50 L 14 96 09/01/23 19:30 50 L 21 96 09/01/23 19:20 52 L 23 09/01/23 19:17 54 L 09/01/23 18:50 50 L 15 91 09/01/23 18:40 50 L 21 95 09/01/23 18:30 50 L 22 97 09/01/23 18:20 50 L 22 95 09/01/23 18:10 50 L 22 95 09/01/23 18:00 50 L 19 96 09/01/23 17:50 50 L 21 98 09/01/23 17:40 51 L 25 H 91 09/01/23 17:30 51 L 21 95 09/01/23 17:20 97 09/01/23 17:10 50 L 20 95 09/01/23 17:00 50 L 18 94 09/01/23 16:56 51 L 13 94 09/01/23 19:47 120/75 09/01/23 17:08 94 09/01/23 17:03 36.7 C 57 L 20 128/80 94 09/01/23 16:57 51 L O2 Del Method 09/01/23 21:54 Room Air 09/01/23 21:00 09/01/23 19:40 09/01/23 19:30 09/01/23 19:20 09/01/23 19:17 09/01/23 18:50 09/01/23 18:40 09/01/23 18:30 09/01/23 18:20 09/01/23 18:10 09/01/23 18:00 09/01/23 17:50 09/01/23 17:40 09/01/23 17:30 09/01/23 17:20 09/01/23 17:10 09/01/23 17:00 09/01/23 16:56 09/01/23 19:47 09/01/23 17:08 Room Air 09/01/23 17:03 Room Air 09/01/23 16:57 Laboratory Results Laboratory Results WBC 6.92 K/ul (4.8-10.8) 09/01/23 15:01 RBC 4.06 M/uL (4.70-6.10) L 09/01/23 15:01 Hgb 14.1 g/dl (14.0-18.0) 09/01/23 15:01 Hct 40.7 % (42.0-52.0) L 09/01/23 15:01 MCV 100.2 fL (80.0-100.0) H 09/01/23 15:01 MCH 34.7 pg (25.0-34.0) H 09/01/23 15:01 MCHC 34.6 g/dL (32.0-36.0) 09/01/23 15:01 RDW Std Deviation 50.9 fL (36.4-46.3) H 09/01/23 15:01 RDW Coeff of Ming 13.8 % (11.5-14.5) 09/01/23 15:01 Plt Count 167 K/uL (130-400) 09/01/23 15:01 MPV 10.5 fL (9.4-12.4) 09/01/23 15:01 Immature Gran % (Auto) 0.9 % 09/01/23 15:01 Neut % (Auto) 69.8 % 09/01/23 15:01 Lymph % (Auto) 19.9 % 09/01/23 15:01 Pondera % (Auto) 7.1 % 09/01/23 15:01 Eos % (Auto) 1.7 % 09/01/23 15:01 Baso % (Auto) 0.6 % 09/01/23 15:01 Neut # (Auto) 4.83 K/uL (1.40-6.50) 09/01/23 15:01 Lymph # (Auto) 1.38 K/uL (1.20-3.40) 09/01/23 15:01 Pondera # (Auto) 0.49 K/uL (0.11-0.59) 09/01/23 15:01 Eos # (Auto) 0.12 K/uL (0.00-0.50) 09/01/23 15:01 Baso # (Auto) 0.04 K/uL (0.00-0.20) 09/01/23 15:01 Immature Gran # (Auto) 0.06 K/uL (0.01-0.20) 09/01/23 15:01 PT 27.6 Seconds (9.0-12.0) H 09/01/23 15:01 INR 2.7 (0.9-1.1) H 09/01/23 15:01 APTT 32.3 Seconds (21.0-31.0) H 09/01/23 15:01 PTT Ratio 1.1 09/01/23 15:01 Sodium 140 mmol/L (136-145) 09/01/23 15:01 Potassium 4.4 mmol/L (3.5-5.1) 09/01/23 15:01 Chloride 107 mmol/L (98-107) 09/01/23 15:01 Carbon Dioxide 27 mmol/L (21-32) 09/01/23 15:01 Anion Gap 6 (3-11) 09/01/23 15:01 BUN 28 mg/dl (6-23) H 09/01/23 15:01 Creatinine 1.05 mg/dl (0.6-1.4) 09/01/23 15:01 Est Cr Clr Drug Dosing Not Reportable 09/01/23 15:01 Est GFR ( Amer) 73.1 ml/min 09/01/23 15:01 Est GFR (Non-Af Amer) 63.1 ml/min 09/01/23 15:01 BUN/Creatinine Ratio 26.7 (10-20) H 09/01/23 15:01 Glucose 109 mg/dl (70-99(Fasting)) H 09/01/23 15:01 Lactate 1.5 mmol/L (0.4-2.0) 09/01/23 19:48 Calcium 9.5 mg/dl (8.6-10.3) 09/01/23 15:01 Magnesium 2.1 mg/dl (1.7-2.4) 09/01/23 15:01 Total Bilirubin 1.0 mg/dl (0.2-1.0) 09/01/23 15:01 AST 24 U/L (13-39) 09/01/23 15:01 ALT 17 U/L (7-52) 09/01/23 15:01 Alkaline Phosphatase 76 U/L (34-104) 09/01/23 15:01 Total Creatine Kinase 60 U/L (30-223) 09/01/23 19:48 Troponin I High Sens 57.4 pg/ml (0-20) H* 09/01/23 19:48 C-Reactive Protein < 0.50 mg/dl (0-0.5) 09/01/23 19:48 Total Protein 7.0 gm/dl (6.0-8.3) 09/01/23 15:01 Albumin 3.9 gm/dl (3.4-5.0) 09/01/23 15:01 Globulin 3.1 gm/dl (2.5-4.0) 09/01/23 15:01 Albumin/Globulin Ratio 1.3 (0.9-2) 09/01/23 15:01 Procalcitonin < 0.05 ng/ml (0-0.5) 09/01/23 15:01 TSH 6.583 uIu/ml (0.300-4.500) H 09/01/23 15:01 Free T4 1.03 ng/dl (0.61-1.60) 09/01/23 15:01 Digoxin 0.5 ng/ml (0.8-2.0) L 09/01/23 15:01 Adenovirus (PCR) Not Detected (NotDetected) 09/01/23 18:43 B. pertussis DNA (PCR) Not Detected (NotDetected) 09/01/23 18:43 B.parapertussis DNA PCR Not Detected (NotDetected) 09/01/23 18:43 C. pneumoniae DNA (PCR) Not Detected (NotDetected) 09/01/23 18:43 Coronavirus OC43 (PCR) Not Detected (NotDetected) 09/01/23 18:43 Coronavirus HKU1 (PCR) Not Detected (NotDetected) 09/01/23 18:43 Coronavirus 229E (PCR) Not Detected (NotDetected) 09/01/23 18:43 SARS-CoV-2 (PCR) Not Detected (NotDetected) 09/01/23 18:43 Coronavirus NL63 (PCR) Not Detected (NotDetected) 09/01/23 18:43 Human Metapneumovir PCR Not Detected (NotDetected) 09/01/23 18:43 Influenza Type A (PCR) Not Detected (NotDetected) 09/01/23 18:43 Influenza Type B (PCR) Not Detected (NotDetected) 09/01/23 18:43 M. pneumoniae (PCR) Not Detected (NotDetected) 09/01/23 18:43 Parainfluenza 1 (PCR) Not Detected (NotDetected) 09/01/23 18:43 Parainfluenza 2 (PCR) Not Detected (NotDetected) 09/01/23 18:43 Parainfluenza 3 (PCR) Not Detected (NotDetected) 09/01/23 18:43 Parainfluenza 4 (PCR) Not Detected (NotDetected) 09/01/23 18:43 RSV (PCR) Not Detected (NotDetected) 09/01/23 18:43 Entero/Rhino (PCR) Not Detected (NotDetected) 09/01/23 18:[address] 09/01/23 17:03 Exam(s): CT C SPINE EXAM: CT Cervical Spine Without Intravenous Contrast CLINICAL HISTORY: Reason for exam: fall. TECHNIQUE: Axial computed tomography images of the cervical spine without intravenous contrast. CTDI is 37.22 mGy and DLP is 1229.05 mGy-cm. Automated exposure control was utilized for the study. A dose lowering technique was utilized adhering to the principles of ALARA. COMPARISON: No relevant prior studies available. FINDINGS: The vertebral body heights are maintained. The craniocervical junction is intact. The atlanto-dens interval is maintained. The dens is intact. There is no spondylolisthesis. Multilevel cervical spondylosis and degenerative disc disease. Straightening of the cervical lordosis. The unenhanced neck soft tissues are grossly unremarkable. The visualized lung apices are grossly clear. IMPRESSION: No acute fracture or subluxation of the cervical spine. Electronically signed by: Danial Kapoor MD 09/01/23 19:51 PM Chest X-Ray 09/01/23 17:03 XR chest 1V portable HISTORY: weakness COMPARISON: Chest 01/28/2022. FINDINGS: No pneumothorax. No pleural effusions. The cardiac silhouette remains enlarged. There is a left-sided pacemaker/defibrillator again noted. No evidence for pulmonary edema. The left lung is clear. There is a new right upper lobe hazy airspace opacity. This likely represents a pneumonia. IMPRESSION: 1. A new right upper lobe airspace opacity which likely represents a pneumonia. 1-2 month chest x-ray follow-up recommended to ensure resolution. 2. Stable cardiomegaly. ACT 112: Negative or not required by law. Electronically signed by: Anatoliy Cardoza M.D. 09/01/2023 5:52 PM Elbow X-Ray 09/01/23 17:03 XR elbow LT min 3V routine, XR elbow RT min 3V routine CLINICAL HISTORY: fall. Bilateral elbow pain. COMPARISON STUDY: None. FINDINGS: Posterior soft tissue swelling within the bilateral elbows. No fracture or dislocation within the right or left elbow. No elbow effusions. Vascular calcifications are noted. IMPRESSION: No fractures within the right or left elbow. ACT 112: Negative or not required by law. Electronically signed by: Anatoliy Cardoza M.D. 09/01/2023 5:[address] 09/01/23 17:03 Exam(s): CT HEAD Without Contrast EXAM: CT Head Without Intravenous Contrast CLINICAL HISTORY: Reason for exam: fall. TECHNIQUE: Axial computed tomography images of the head/brain without intravenous contrast. CTDI is 37.22 mGy and DLP is 1229.05 mGy-cm. Automated exposure control was utilized for the study. A dose lowering technique was utilized adhering to the principles of ALARA. COMPARISON: No relevant prior studies available. FINDINGS: No acute intracranial hemorrhage. No midline shift or mass effect. The territorial alcala-white matter differentiation is maintained throughout. Age-related cerebral volume loss. Periventricular and subcortical white matter hypoattenuation, consistent with chronic microangiopathy. The visualized orbits appear grossly unremarkable. The calvarium is intact. The visualized paranasal sinuses and mastoid air cells are grossly clear. IMPRESSION: No acute intracranial hemorrhage, midline shift, or mass effect. Electronically signed by: Danial Kapoor MD 09/01/23 19:51 PM Hip/Pelvis X-Ray 09/01/23 17:03 XR hip LT 2V w pelvis CLINICAL HISTORY: fall. Pelvic pain. COMPARISON STUDY: Pelvis and hips 12/07/2013. FINDINGS: No acute fracture or dislocation within the pelvis or hips. Vascular calcifications are noted. The sacrum appears intact. Moderate to severe right hip osteoarthritis. There is severe left hip osteoarthritis with [id number] articulation, large osteophytes, and subchondral sclerosis. There is flattening of the superior aspect of the femoral head which is likely due to the long- standing severe osteoarthritis. A superimposed avascular necrosis would be difficult to exclude. IMPRESSION: 1. No acute fracture or dislocation within the pelvis or hips. 2. 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 3. There is flattening of the superior aspect of the femoral head which is likely due to the long-standing severe osteoarthritis. A superimposed avascular necrosis would be difficult to exclude. ACT 112: Negative or not required by law. Electronically signed by: Anatoliy Cardoza M.D. 09/01/2023 5:57 PM Diagnostic Findings EKG as per my interpretation : Rate 50, paced rhythm
[2023-09-01 23:35] LABS: Hematocrit (blood only) 36.4 % (42.0-52.0); Hemoglobin 12.6 g/dl (14.0-18.0)
[2023-09-02] MEDS ORDERED: PHYTONADIONE 10 MG in DEXTROSE 5% 50 ML IV ONE (00:45)
[2023-09-02] MEDS ORDERED: PROMETHAZINE HCL 6.25 MG in SODIUM CHLORIDE 0.9% 50 ML IV PRN (00:47)
[2023-09-02 04:57] LABS: Basophils # (auto) 0.05 K/uL (0.00-0.20); Basophils % (auto) 0.6 %; Eosinophils # (auto) 0.18 K/uL (0.00-0.50); Eosinophils % (auto) 2.3 %; Hematocrit (blood only) 36.5 % (42.0-52.0); Hemoglobin 12.5 g/dl (14.0-18.0); Immature Granulocytes # (auto) 0.02 K/uL (0.01-0.20); Immature Granulocytes % (auto) 0.3 %; Lymphocytes # (auto) 1.22 K/uL (1.20-3.40); Lymphocytes % (auto) 15.5 %; Mean Corpuscular Hemoglobin 34.5 pg (25.0-34.0); Mean Corpuscular Hgb Conc 34.2 g/dL (32.0-36.0); Mean Corpuscular Volume 100.8 fL (80.0-100.0); Mean Platelet Volume 10.5 fL (9.4-12.4); Monocytes # (auto) 0.66 K/uL (0.11-0.59); Monocytes % (auto) 8.4 %; Neutrophils # (auto) 5.76 K/uL (1.40-6.50); Neutrophils % (auto) 72.9 %; Platelet Count 136 K/uL (130-400); RDW Coefficient of Variation 13.6 % (11.5-14.5); RDW Standard Deviation 50.8 fL (36.4-46.3); Red Blood Count 3.62 M/uL (4.70-6.10); White Blood Count 7.89 K/ul (4.8-10.8)
[2023-09-02 05:10] LABS: BUN Creatinine Ratio 26.4 (10-20); Calcium 9.1 mg/dl (8.6-10.3); Creatinine Clr Calc Pharmacy 49.4 ml/min; Est GFR (African American) 69.1 ml/min; Est GFR (Non-African American) 59.6 ml/min; Potassium 4.6 mmol/L (3.5-5.1)
[2023-09-02 05:42] LABS: INR 2.6 (0.9-1.1); Prothrombin Time 26.9 Seconds (9.0-12.0)
[2023-09-02 07:24] LABS: Troponin I High Sensitivity 59.7 pg/ml (0-20)
--- NOTE | 2023-09-02 09:36 | Hospitalist Progress Note ---
Date of Service September 02, 2023 Assessment & Plan (1) Aspiration pneumonia: Plan: He has a new right upper airspace opacity likely representing a pneumonia. Continues on Unasyn at this time remains afebrile and oxygenating 94% on room air. (2) Delirium: Plan: likely hospital induced delirium. With no focal neurologic deficits, and mental status unchanged throughout today, I don't feel a repeat CT head is needed at this time. (3) Contusion of scalp: Plan: Traumatic scalp hematoma secondary to recurrent falls/ambulatory dysfunction (4) Fall: Plan: PT OT (5) Warfarin-induced coagulopathy: Plan: INR this morning was 2.6. He received vitamin K 10 mg IV for reversal. No excessive bleeding is noted. (6) Anemia: Plan: Mild anemia with a hemoglobin of 12.5 initially 14.1 on admission. Continue to trend in setting of recent bleed on Coumadin. (7) CKD (chronic kidney disease), stage III: Plan: Chronic, creatinine at baseline. Continue to avoid nephrotoxic substances as able. (8) Coronary artery disease: Plan: Known history of ischemic cardiomyopathy. Elevated troponin likely secondary to acute illness in the setting of structural heart disease. Troponin trend reveals no acceleration upward. He is not demonstrating signs or symptoms of ACS at this time. Continue medical therapy. (9) ICD (implantable cardioverter-defibrillator) in place: (10) HTN (hypertension): Plan: Chronic, controlled, continue current therapy (11) Hypothyroidism: Plan: Slightly hypothyroid with a TSH of 6.5. Recheck in outpatient setting. For now continue home levothyroxine. (12) Ischemic cardiomyopathy: Plan: Chronic heart failure with reduced ejection fraction, compensated. Continue guideline directed medical therapy. (13) Permanent atrial fibrillation: Plan: Chronic, stable. Continue digoxin, metoprolol per home regimen. Warfarin reversal given head trauma and therapeutic INR. Cardiology had a long dis cussion with patient and regarding risk versus benefit of long-term anticoagulation as it relates to his frequent falls and risk of injury. Recommended at least temporarily holding warfarin at this time and will plan to reassess in the outpatient setting SCDs Full code Disposition-continue telemetry monitoring I discussed the plan with his who was seated at bedside and all questions w ere answered to her satisfaction. Zully Mcgill DO [facility] and Anticipated Discharge Date Admission Date: September 01, 2023 Subjective 87-year-old man presented status post fall with head injury and scalp abrasion on Coumadin. Today patient is delirious with no focal neurologic deficit on exam He is intermittently following instructions reports he has been this way since this morning when she arrived Some hallucinations present Physical Exam Physical Exam: CONSTITUTIONAL: WNWD, vitals as above, lying in bed, generally NAD EYES: EOMI bilaterally, PERRL, normal conjunctivae, no scleral icterus ENT: external ear and nose normal, NECK: trachea midline RESPIRATORY: clear to auscultation bilaterally, no crackles, rales or wheezes, normal respiratory effort CARDIOVASCULAR: regular rate and rhythm, S1 and 2 heard without murmurs, gallops or rubs, no JVD, no peripheral edema CHEST: inspection of chest was normal GASTROINTESTINAL: soft, nontender, ND, no guarding MUSCULOSKELETAL: strength 5/5 throughout, head is normocephalic and atraumatic SKIN: warm and dry, superficial laceration in crown of head-covered wtih optifoam. NEUROLOGIC: CN 2-12 grossly intact, no sensory deficit, awake, normal speech, no tremor PSYCHIATRIC: alert cooperative with exam for the most part, disoriented, language grossly intact Results & Data Results & Data Vital Signs (Past 12 Hours) Vital Signs Temp Pulse Pulse Resp BP Pulse Ox Pulse Ox 09/02/23 08:14 36.5 C 50 L 18 122/72 93 09/02/23 07:35 50 L 09/02/23 06:00 50 L 09/02/23 05:30 09/02/23 05:20 36.6 C 50 L 18 138/77 93 09/02/23 01:44 36.8 C 56 L 17 112/64 98 09/02/23 01:30 36.8 C 51 L 17 134/89 94 09/02/23 00:47 17 09/02/23 00:47 96 09/01/23 23:00 50 L 17 134/89 98 09/01/23 21:54 50 L 14 134/89 95 O2 Del Method O2 Del Method 09/02/23 08:14 Room Air 09/02/23 07:35 09/02/23 06:00 09/02/23 05:30 Room Air 09/02/23 05:20 Room Air 09/02/23 01:44 Room Air 09/02/23 01:30 Room Air 09/02/23 00:47 09/02/23 00:47 Room Air 09/01/23 23:00 Room Air 09/01/23 21:54 Room Air Laboratory Results Short CBC 09/01/23 09/01/23 09/02/23 Range/Units 15:01 23:25 04:12 WBC 6.92 7.89 (4.8-10.8) K/ul Hgb 14.1 12.6 L 12.5 L (14.0-18.0) g/dl Hct 40.7 L 36.4 L 36.5 L (42.0-52.0) % Plt Count 167 136 (130-400) K/uL BMP 09/01/23 09/02/23 15:01 04:12 Sodium 140 140 Potassium 4.4 4.6 Chloride 107 109 H Carbon Dioxide 27 25 BUN 28 H 29 H Creatinine 1.05 1.10 Glucose 109 H 111 H Calcium 9.5 9.1 Cardiac Enzymes 09/01/23 Range/Units 19:48 Total Creatine Kinase 60 (30-223) U/L Liver Function 09/01/23 Range/Units 15:01 Total Bilirubin 1.0 (0.2-1.0) mg/dl AST 24 (13-39) U/L ALT 17 (7-52) U/L Alkaline Phosphatase 76 (34-104) U/L Albumin 3.9 (3.4-5.0) gm/dl Medications Administered Current Inpatient Medications Acetaminophen (Acetaminophen 325 Mg Tab) 650 mg PO Q4H PRN PRN Reason: Pain or Fever Stop: 10/02/23 00:46 Amoxicillin/Clavulanate Potassium (Amoxicillin/Clavulanate 875 Mg Tab) 1 tab PO BIDM [facility]; Protocol Stop: 09/09/23 07:59 Cetirizine HCl (Cetirizine Hcl 10 Mg Tablet) 10 mg PO QAM [facility] Stop: 10/02/23 08:59 Digoxin (Digoxin 0.125 Mg Tab) 0.125 mg PO TuThSa@1600 [facility] Stop: 10/02/23 15:59 Promethazine HCl 6.25 mg/ (Sodium Chloride) 50.25 mls @ 201 mls/hr IV Q6H PRN PRN Reason: Nausea And Vomiting Stop: 10/02/23 00:46 Levothyroxine Sodium (Levothyroxine Sodium 75 Mcg Tablet) 75 mcg PO DAILYBB [facility] Stop: 10/02/23 06:29 Metoprolol Succinate (Metoprolol Succ 25mg Ext Rel Tab) 25 mg PO BID [facility] Stop: 10/02/23 08:59 Rosuvastatin Calcium (Rosuvastatin Calcium 5 Mg Tab) 5 mg PO MoWeFr@0900 [facility] Stop: 10/03/23 08:59 Sacubitril/Valsartan (Valsartan/Sacubitril 26/24mg Tab) 0.5 tab PO BID [facility] Stop: 10/02/23 08:59 (3) Contusion of scalp Encounter type: initial encounter Qualified Code(s): S00.03XA - Contusion of scalp, initial encounter (4) Fall Encounter type: initial encounter Qualified Code(s): W19.XXXA - Unspecified fall, initial encounter
[2023-09-02] MEDS: AMOXICILLIN/CLAVULANATE 875 MG TAB PO SCH ×2 (09:52→17:58)
[2023-09-02] MEDS: LEVOTHYROXINE SODIUM 75 MCG TABLET PO SCH (09:52)
[2023-09-02] MEDS: CETIRIZINE HCL 10 MG TABLET PO SCH (09:52)
[2023-09-02] MEDS: VALSARTAN/SACUBITRIL 26/24MG TAB PO SCH ×2 (09:53→20:31)
[2023-09-02] MEDS: METOPROLOL SUCC 25MG EXT REL TAB PO SCH ×2 (09:53→20:28)
--- NOTE | 2023-09-02 14:27 | Cardiology Consultation ---
Date of Consultation September 02, 2023 Assessment & Plan (1) Fall: (2) Head injury: (3) Warfarin-induced coagulopathy: (4) Permanent atrial fibrillation: (5) Gait abnormality: (6) Pneumonia: Plan Complex 79-year-old male admitted with mechanical fall and diagnosed with pneum onia via chest x-ray. Cardiology consultation requested regarding chronic anticoagulation. I had a long discussion with the patient and his regarding the risk versus benefit of long-term anticoagulation as relates to his frequent falls and risk of injury. Recommend at least temporarily holding warfarin at this time. Patient and his are agreeable. This can be reassessed in the outpatient setting with consideration for restarting oral anticoagulation if patient is placed in a monitored setting or fall risk can be mitigated. Recommend restart outpatient furosemide, 20 mg daily. Restart clopidogrel in a.m. 09/03/2023 pending review of repeat INR. Continue other cardiovascular medications including digoxin, Entresto, rosuvastatin, metoprolol succinate. History of Present Illness Reason for Consultation: Paroxysmal atrial fibrillation on Coumadin with recurrent falls Requesting Physician: Dr. Diggs Attending Physician: Zully Mcgill DO History of Present Illness 87-year-old patient with complex cardiovascular history noted below presents to the emergency department after a mechanical fall after trying to exit his vehicle. Patient apparently missed his walker, fell to the ground and struck his head. He is a poor historian due to underlying dementia. is present at bedside who aids with history. She reports frequent falls occurring on at least a biweekly basis. He is a excoriation/contusion of his left elbow currently. They continue to live independently at the [facility]. voiced concern regarding declining short-term memory over the past few weeks. Patient denies chest pain or shortness of breath. Patient has not received oral diuretic therapy since admission. voices concern. Telemetry reveals atrial fibrillation with ventricular paced rhythm at 50 bpm. Patient otherwise hemodynamically stable since admission with adequate blood pressure control. No significant hypotension. Cardiovascular history: 1. 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 2. History of acute decompensation in the setting of elevated heart rate, receiving stenting to the recannulated left anterior descending and attempted stent into the proximal right coronary artery in May 2014. 3. Severe ischemic cardiomyopathy, LVEF 20 to 24%, HFrEF 4. Volume status: Stable chronic mild hypervolemia. 5. History of atrial fibrillation and chronic atrial flutter 6. Chronic coumadin anticoagulation 7. Status post January 2013 single-chamber ICD implantation 8. Status post January 28, 2022 attempted upgrade to a biventricular ICD, unsuccessful, status post single-chamber ICD generator exchange by Dr. Davidson at [facility] 9. Frequent ventricular ectopy Allergies Allergy/AdvReac Type Severity Reaction Status Date / Time No Known Allergies Allergy Verified 09/02/23 08:02 Home Medications Medication Instructions Recorded Confirmed Type nitroglycerin 0.4 mg sublingual 0.4 mg PO UD PRN Chest Pain ##0 07/06/14 09/01/23 History tablet rosuvastatin 5 mg tablet 5 mg PO MWF ##0 07/06/14 09/01/23 History clopidogrel 75 mg tablet 75 mg PO HS #0 tabs 03/26/18 09/01/23 History coenzyme Q10 200 mg capsule 200 mg PO QAM ##0 03/26/18 09/01/23 History digoxin 125 mcg (0.125 mg) tablet 0.125 mg PO 3XWK ##0 03/26/18 09/01/23 History furosemide 20 mg tablet 40 mg PO QAM #0 tabs 03/26/18 09/01/23 History cholecalciferol (vitamin D3) 50 2,000 units PO DAILY #0 tabs 07/14/19 09/01/23 History mcg (2,000 unit) tablet cetirizine 10 mg tablet 10 mg PO QAM 07/16/20 09/01/23 History sacubitril 24 mg-valsartan 26 mg 0.5 tab PO AMPM 07/16/20 09/01/23 History tablet (Entresto) ipratropium bromide 21 mcg (0.03 2 spray intranasal BID PRN rhinitis 09/01/23 09/01/23 History %) nasal spray levothyroxine 75 mcg tablet 75 mcg PO DAILYBB 09/01/23 09/01/23 History metoprolol succinate 50 mg 50 mg PO UD 09/01/23 09/01/23 History tablet,extended release 24 hr warfarin 5 mg tablet See Rx Instructions .Route .COMPLEX 09/01/23 09/01/23 History Patient History Medical History Microcytic anemia Gait abnormality Permanent atrial fibrillation Ischemic cardiomyopathy Systolic heart failure Arthritis Myocardial Infarction Pacemaker Congestive heart failure TIA (transient ischemic attack) Atrial fibrillation with rapid ventricular response Surgical History H/O hernia repair History of appendectomy H/O percutaneous transluminal coronary angioplasty Family History Father Stroke syndrome Sister Coronary heart disease Mother Cardiac disorder Social History Smoking Status: Former smoker Cigarettes Per Day: 20; Second Hand Exposure: Yes; Do You Dip or Chew Tobacco: No; Hx Alcohol Use: Yes Alcohol type: beer Hx Substance Use: No Preferred Language: Greek Communication Ability: Effective Visual Impairment: No Limitations Hearing Ability: Normal Plasterer Stucco Required: No Beliefs That Will Affect Care: None Current Living Situation: Spouse Current Living Situation Comment: Independent living at [facility] Feels Safe at Home: Yes Childhood Exposure to Second-Hand Smoke: No caffeine: Yes Dental Care, Regularly: Yes Physical Activity Frequency: 1-2 Times per Week Seatbelt Use: always Sunscreen Use: No Assistive Devices: Cane and Walker Review of Systems Review of Systems: Unobtainable due to cognitive status Physical Exam Constitutional: well nourished; no acute distress Respiratory: normal respiratory effort; no respiratory distress and no labored breathing Auscultation: no crackles, no rales and no wheezes Cardiovascular: Rate/Rhythm: regular rate, regular rhythm and + bradycardic Heart Sounds: normal S1, normal S2 and + murmur (1/6 systolic ejection murmur) Vessels: femoral pulses present; no JVD and no carotid bruit Extremities: + edema (2+ bilateral ankle edema) Gastrointestinal (Abdomen): Inspection/Auscultation: normal bowel sounds; abdomen not distended Percussion/Palpation: abdomen soft; abdomen nontender, no guarding and abdomen not rigid Neurologic: CN's II-XI intact bilaterally and moves all extremities; no focal motor deficits Results & Data Vital Signs (Past 12 Hours) Vital Signs Temp Pulse Pulse Resp BP Pulse Ox O2 Del Method 09/02/23 11:01 36.5 C 50 L 16 111/68 95 Room Air 09/02/23 09:55 Room Air 09/02/23 08:14 36.5 C 50 L 18 122/72 93 Room Air 09/02/23 07:35 50 L 09/02/23 06:00 50 L 09/02/23 05:30 Room Air 09/02/23 05:20 36.6 C 50 L 18 138/77 93 Room Air Laboratory Results Cardiac Enzymes 09/01/23 09/01/23 09/01/23 Range/Units 15:01 19:48 23:25 AST 24 (13-39) U/L Troponin I High Sens 55.6 H* 57.4 H* 64.2 H* (0-20) pg/ml 09/02/23 Range/Units 04:12 AST (13-39) U/L Troponin I High Sens 59.7 H* (0-20) pg/ml Coagulation 09/01/23 09/02/23 Range/Units 15:01 04:12 PT 27.6 H 26.9 H (9.0-12.0) Seconds APTT 32.3 H (21.0-31.0) Seconds CBC 09/01/23 09/01/23 09/02/23 Range/Units 15:01 23:25 04:12 WBC 6.92 7.89 (4.8-10.8) K/ul RBC 4.06 L 3.62 L (4.70-6.10) M/uL Hgb 14.1 12.6 L 12.5 L (14.0-18.0) g/dl Hct 40.7 L 36.4 L 36.5 L (42.0-52.0) % Plt Count 167 136 (130-400) K/uL Neut # (Auto) 4.83 5.76 (1.40-6.50) K/uL Lymph # (Auto) 1.38 1.22 (1.20-3.40) K/uL [place] # (Auto) 0.49 0.66 H (0.11-0.59) K/uL Eos # (Auto) 0.12 0.18 (0.00-0.50) K/uL Baso # (Auto) 0.04 0.05 (0.00-0.20) K/uL Comprehensive Metabolic Panel 09/01/23 09/02/23 Range/Units 15:01 04:12 Sodium 140 140 (136-145) mmol/L Potassium 4.4 4.6 (3.5-5.1) mmol/L Chloride 107 109 H (98-107) mmol/L Carbon Dioxide 27 25 (21-32) mmol/L BUN 28 H 29 H (6-23) mg/dl Creatinine 1.05 1.10 (0.6-1.4) mg/dl Glucose 109 H 111 H (70-99(Fasting)) mg/dl Calcium 9.5 9.1 (8.6-10.3) mg/dl AST 24 (13-39) U/L ALT 17 (7-52) U/L Alkaline Phosphatase 76 (34-104) U/L Total Protein 7.0 (6.0-8.3) gm/dl Albumin 3.9 (3.4-5.0) gm/dl Intake and Output 09/01/23 09/02/23 09/02/23 22:59 06:59 14:59 Intake Total 150 / 301 151 / 301 240 / 240 Output Total 300 / 300 Balance 150 / 301 151 / 301 -60 / -60 Intake: IV 150 / 301 151 / 301 Acetaminophen 1,000 mg In 100 100 / 100 ml @ 400 mls/hr IV NOW STA Rx#: [id number] Ampicillin/Sulbactam Sod 3,000 100 / 100 mg In Sodium Chlor 0.9% Mini-B 100 ml @ 200 mls/hr IV NOW STA Rx#:[id number] Phytonadione 10 mg In Dextrose 51 / 51 5% 50 ml @ 102 mls/hr IV ONE ONE Rx#:[id number] cefTRIAXone SODIUM 2,000 mg In 50 / 50 50 ml @ 100 mls/hr IV NOW STA Rx#:[id number] Oral 0 / 0 240 / 240 Output: Urine 300 / 300 Other: # Unmeasured Voids 1 Weight 86.3 kg 86.3 kg Weight Measurement Method [facility] (1) Fall Encounter type: initial encounter Qualified Code(s): W19.XXXA - Unspecified fall, initial encounter (2) Head injury Encounter type: initial encounter Qualified Code(s): S09.90XA - Unspecified injury of head, initial encounter (6) Pneumonia Laterality: right Lung location: upper lobe of lung Pneumonia type: due to unspecified organism Qualified Code(s): J18.9 - Pneumonia, unspecified organism
[2023-09-02] MEDS ORDERED: FUROSEMIDE 20 MG TAB PO SCH (14:30)
[2023-09-02 14:58] LABS: Appearance Urine Clear (Clear); Bilirubin Urine Negative (Negative); Blood Urine Negative (Negative); Color Urine Dark Yellow; Glucose Urine UA Negative (Negative); Ketones Urine Trace (Negative); Leukocyte Esterase Urine Negative (Negative); Nitrite Urine Negative (Negative); Protein Urine Negative (Negative); Specific Gravity Urine 1.027 (1.000-1.030); Urobilinogen Urine Negative (Negative)
[2023-09-02] MEDS: DIGOXIN 0.125 MG TAB PO SCH (15:11)
[2023-09-02] MEDS: ACETAMINOPHEN 325 MG TAB PO PRN (20:30)
[2023-09-03] MEDS ORDERED: OLANZapine 10 MG/2.1 ML SDV IM PRN (02:32)
[2023-09-03] MEDS ORDERED: OLANZapine 10 MG/2.1 ML SDV IM STA (02:32)
[2023-09-03] MEDS ORDERED: ALBUT/IPRATROP 3MG/0.5MG NEB 3 ML VIAL NEB STA (02:32)
[2023-09-03] MEDS ORDERED: FUROSEMIDE INJ 20 MG/2 ML VIAL IV ONE (03:43)
[2023-09-03 05:04] LABS: BUN Creatinine Ratio 24.6 (10-20); Calcium 9.4 mg/dl (8.6-10.3); Creatinine Clr Calc Pharmacy 44.6 ml/min; Est GFR (Non-African American) 52.6 ml/min; Potassium 4.7 mmol/L (3.5-5.1)
[2023-09-03 05:56] LABS: Hematocrit (blood only) 38.9 % (42.0-52.0); Hemoglobin 13.1 g/dl (14.0-18.0); Mean Corpuscular Hemoglobin 34.3 pg (25.0-34.0); Mean Corpuscular Hgb Conc 33.7 g/dL (32.0-36.0); Mean Corpuscular Volume 101.8 fL (80.0-100.0); Mean Platelet Volume 10.8 fL (9.4-12.4); Platelet Count 132 K/uL (130-400); RDW Standard Deviation 52.4 fL (36.4-46.3); Red Blood Count 3.82 M/uL (4.70-6.10); White Blood Count 10.12 K/ul (4.8-10.8)
[2023-09-03] MEDS: LEVOTHYROXINE SODIUM 75 MCG TABLET PO SCH (06:57)
--- NOTE | 2023-09-03 07:14 | XRay Report ---
XR chest 1V portable HISTORY: Hypoxia. COMPARISON: Chest 09/01/2023. FINDINGS: No pneumothorax. No pleural effusions. The cardiac silhouette remains enlarged. Left-sided pacemaker again noted. Diffuse interstitial/vascular thickening and hazy airspace opacities have prog ressed. This is consistent with pulmonary edema. Right upper lobe airspace opacities are again noted likely representing a pneumonia. IMPRESSION: 1. Interval progression of the pulmonary edema. 2. Right upper lobe airspace opacities persist and likely represents a pneumonia. ACT 112: Negative or not required by law. Electronically signed by: Anatoliy Cardoza M.D. 09/03/2023 7:12 AM
--- NOTE | 2023-09-03 07:41 | Electrocardiogram Report ---
Test Reason : Blood Pressure : / mmHG Vent. Rate : 050 BPM Atrial Rate : 053 BPM P-R Int : 000 ms QRS Dur : 202 ms QT Int : 488 ms P-R-T Axes : 000 -77 122 degrees QTc Int : 444 ms Ventricular-paced rhythm Abnormal ECG When compared with ECG of 13-JUL-2018 14:43, Previous ECG has undetermined rhythm, needs review Confirmed by Faisal Fernandes ([id number]) on 09/02/2023 12:00:09 PM Referred By: REFERRED SELF Confirmed By:Yash Fernandse
[2023-09-03] MEDS: METOPROLOL SUCC 25MG EXT REL TAB PO SCH ×2 (09:07→21:33)
[2023-09-03] MEDS: AMOXICILLIN/CLAVULANATE 875 MG TAB PO SCH (09:16)
[2023-09-03] MEDS: ROSUVASTATIN CALCIUM 5 MG TAB PO SCH (09:17)
[2023-09-03] MEDS: CETIRIZINE HCL 10 MG TABLET PO SCH (09:17)
[2023-09-03] MEDS: VALSARTAN/SACUBITRIL 26/24MG TAB PO SCH ×2 (09:17→21:31)
[2023-09-03] MEDS ORDERED: AMPICILLIN SOD/SULBACTAM SOD 3 GM VIAL IV SCH (09:30)
--- NOTE | 2023-09-03 09:34 | Hospitalist Progress Note ---
Date of Service September 03, 2023 Assessment & Plan (1) Aspiration pneumonia: Plan: He has a new right upper airspace opacity likely representing a pneumonia. Was switched to Augmentin however not tolerating p.o. after being somnolent from Zyprexa overnight. Switch back to Unasyn and will continue until he is reliably tolerating p.o. again. Continues to oxygenate well on room air. (2) Delirium: Plan: likely hospital induced delirium. Received Zyprexa overnight. Repeat head CT was negative. Delirium appears to have resolved. High risk for recurrent delirium episodes while in the hospital. (3) Contusion of scalp: Plan: Traumatic scalp hematoma secondary to recurrent falls/ambulatory dysfunction (4) Fall: Plan: PT OT (5) Warfarin-induced coagulopathy: Plan: He received vitamin K 10 mg IV for reversal. No excessive bleeding is noted. Continue to avoid warfarin at this time (6) Anemia: Plan: Anemia has improved today to 13.1. Warfarin has been stopped at this time by cardiology. Plans to restart Plavix in AM. Continue to watch for any bleeding. (7) CKD (chronic kidney disease), stage III: Plan: Chronic, creatinine at baseline. Continue to avoid nephrotoxic substances as able. (8) Coronary artery disease: Plan: Known history of ischemic cardiomyopathy. Elevated troponin likely secondary to acute illness in the setting of structural heart disease. Troponin trend reveals no acceleration upward. He is not demonstrating signs or symptoms of ACS at this time. Continue medical therapy. (9) ICD (implantable cardioverter-defibrillator) in place: (10) HTN (hypertension): Plan: Chronic, controlled, continue current therapy (11) Hypothyroidism: Plan: Slightly hypothyroid with a TSH of 6.5. Recheck in outpatient setting. For now continue home levothyroxine. (12) Ischemic cardiomyopathy: Plan: Chronic heart failure with reduced ejection fraction, compensated. Continue guideline directed medical therapy. (13) Permanent atrial fibrillation: Plan: Chronic, stable. Continue digoxin, metoprolol per home regimen. Warfarin reversal given head trauma and therapeutic INR. Cardiology had a long discussion with patient and regarding risk versus benefit of long-term anticoagulation as it relates to his frequent falls and risk of injury. Recommended at least temporarily holding warfarin at this time and will plan to reassess in the outpatient setting SCDs Full code Disposition-continue telemetry monitoring I discussed the plan with his who was seated at bedside and all questions were answered to her satisfaction. Zully Mcgill DO [facility] and Anticipated Discharge Date Admission Date: September 02, 2023 Subjective 87-year-old man presented status post fall with head injury and scalp abrasion on Coumadin. Patient with some delirium overnight received Zyprexa and was somnolent per primary RN this morning. Repeat head CT revealed no intracranial abnormality When I arrived at bedside his was feeding him lunch and the patient was awake and oriented. He felt clinically improved and denied any pain shortness of breath or other issues agreed that he looked better. Physical Exam Physical Exam: CONSTITUTIONAL: WNWD, vitals as above, NAD EYES: EOMI bilaterally, PERRL, normal conjunctivae, no scleral icterus ENT: external ear and nose normal, NECK: trachea midline RESPIRATORY: clear to auscultation bilaterally, no crackles, rales or wheezes, normal respiratory effort CARDIOVASCULAR: regular rate and rhythm, S1 and 2 heard without murmurs, gallops or rubs, no JVD, no peripheral edema CHEST: inspection of chest was normal GASTROINTESTINAL: soft, nontender, ND, no guarding MUSCULOSKELETAL: strength 5/5 throughout, head is normocephalic and atraumatic SKIN: warm and dry, superficial laceration in crown of head-covered wtih optifoam. NEUROLOGIC: CN 2-12 grossly intact, no sensory deficit, awake, normal speech, no tremor PSYCHIATRIC: alert cooperative with exam for the most part, oriented, language grossly intact Results & Data Results & Data Vital Signs (Past 12 Hours) Vital Signs Temp Pulse Pulse Resp BP Pulse Ox O2 Del Method 09/03/23 07:54 62 09/03/23 07:20 36.9 C 49 L 17 118/57 L 93 Nasal Cannula 09/03/23 03:04 50 L 19 90 Nasal Cannula 09/03/23 02:26 36.5 C 50 L 20 136/62 89 L Nasal Cannula 09/03/23 00:00 50 L 09/02/23 23:00 36.3 C L 50 L 18 128/77 92 Nasal Cannula O2 Flow Rate 09/03/23 07:54 09/03/23 07:20 4 09/03/23 03:04 4 09/03/23 02:26 2 09/03/23 00:00 09/02/23 23:00 3 Laboratory Results Short CBC 09/03/23 Range/Units 04:27 WBC 10.12 (4.8-10.8) K/ul Hgb 13.1 L (14.0-18.0) g/dl Hct 38.9 L (42.0-52.0) % Plt Count 132 (130-400) K/uL BMP 09/03/23 04:27 Sodium 141 Potassium 4.7 Chloride 106 Carbon Dioxide 25 BUN 30 H Creatinine 1.22 Glucose 120 H Calcium 9.4 Urine 09/02/23 Range/Units 13:30 Urine Color Dark Yellow Urine Appearance Clear (Clear) Urine pH 5.0 (4.5-7.5) Ur Specific [place] 1.027 (1.000-1.030) Urine Protein Negative (Negative) Urine Glucose (UA) Negative (Negative) Diagnostic Findings Chest X-Ray 09/03/23 02:32 XR chest 1V portable HISTORY: Hypoxia. COMPARISON: Chest 09/01/2023. FINDINGS: No pneumothorax. No pleural effusions. The cardiac silhouette remains enlarged. Left-sided pacemaker again noted. Diffuse interstitial/vascular thickening and hazy airspace opacities have progressed. This is consistent with pulmonary edema. Right upper lobe airspace opacities are again noted likely representing a pneumonia. IMPRESSION: 1. Interval progression of the pulmonary edema. 2. Right upper lobe airspace opacities persist and likely represents a pneumonia. ACT 112: Negative or not required by law. Electronically signed by: Anatoliy Cardoza M.D. 09/03/2023 7:12 AM Medications Administered Current Inpatient Medications Acetaminophen (Acetaminophen 325 Mg Tab) 650 mg PO Q4H PRN PRN Reason: Pain or Fever Stop: 10/02/23 00:46 Last Admin: 09/02/23 20:30 Dose: 650 mg Amoxicillin/Clavulanate Potassium (Amoxicillin/Clavulanate 875 Mg Tab) 1 tab PO BIDM [facility]; Protocol Stop: 09/09/23 07:59 Last Admin: 09/03/23 09:16 Dose: Not Given Ampicillin Sodium/Sulbactam Sodium (Ampicillin Sod/Sulbactam Sod 3 Gm Vial) 3 mg IV Q6H [facility]; Protocol Stop: 09/10/23 09:29 Cetirizine HCl (Cetirizine Hcl 10 Mg Tablet) 10 mg PO QAM [facility] Stop: 10/02/23 08:59 Last Admin: 09/03/23 09:17 Dose: Not Given Digoxin (Digoxin 0.125 Mg Tab) 0.125 mg PO TuThSa@1600 [facility] Stop: 10/02/23 15:59 Last Admin: 09/02/23 15:11 Dose: Not Given Furosemide (Furosemide 20 Mg Tab) 20 mg PO QAM [facility] Stop: 10/04/23 14:29 Promethazine HCl 6.25 mg/ (Sodium Chloride) 50.25 mls @ 201 mls/hr IV Q6H PRN PRN Reason: Nausea And Vomiting Stop: 10/02/23 00:46 Levothyroxine Sodium (Levothyroxine Sodium 75 Mcg Tablet) 75 mcg PO DAILYBB [facility] Stop: 10/02/23 06:29 Last Admin: 09/03/23 06:57 Dose: 75 mcg Metoprolol Succinate (Metoprolol Succ 25mg Ext Rel Tab) 25 mg PO BID [facility] Stop: 10/02/23 08:59 Last Admin: 09/03/23 09:07 Dose: Not Given Olanzapine (Olanzapine 10 Mg/2.1 Ml Sdv) 2.5 mg IM Q4H PRN PRN Reason: Agitation Stop: 10/03/23 02:31 Rosuvastatin Calcium (Rosuvastatin Calcium 5 Mg Tab) 5 mg PO MoWeFr@0900 [facility] Stop: 10/03/23 08:59 Last Admin: 09/03/23 09:17 Dose: Not Given Sacubitril/Valsartan (Valsartan/Sacubitril 26/24mg Tab) 0.5 tab PO BID [facility] Stop: 10/02/23 08:59 Last Admin: 09/03/23 09:17 Dose: Not Given (3) Contusion of scalp Encounter type: initial encounter Qualified Code(s): S00.03XA - Contusion of scalp, initial encounter (4) Fall Encounter type: initial encounter Qualified Code(s): W19.XXXA - Unspecified fall, initial encounter
--- NOTE | 2023-09-03 10:57 | CT Scan Report ---
CT head/brain wo con CLINICAL HISTORY: 87 years-old Male with r/o bleed, change in MS after fall on warfarin. TECHNIQUE: Multiple axial CT images of the head were obtained without contrast. A dose lowering tech nique was utilized adhering to the principles of ALARA. CT DOSE: 627.18 mGy.cm COMPARISON: None. FINDINGS: No acute intracranial hemorrhage, midline shift, intracranial mass, hydrocephalus, territorial ischem ia or abnormal extra-axial collection. Involutional changes with white matter hypodensities. The calvarium is intact. Prior bilateral lens repair. The paranasal sinuses, mastoid air cells, and m iddle ear cavities are clear. IMPRESSION: No acute intracranial abnormality. ACT 112: Negative or not required by law. The above report was generated using voice recognition software. It may contain grammatical, syntax o r spelling errors. Electronically signed by: oRbb Hernández M.D. 09/03/2023 10:56 AM
[2023-09-03] MEDS: UNASYN 3000MG / NS q6h IV SCH ×3 (11:47→21:31)
--- NOTE | 2023-09-03 13:17 | Cardiology Progress Note ---
Date of Service September 03, 2023 Assessment & Plan (1) Fall: (2) Head injury: (3) Warfarin-induced coagulopathy: (4) Permanent atrial fibrillation: (5) Gait abnormality: (6) Pneumonia: Plan Complex 79-year-old male admitted with mechanical fall and diagnosed with pneumonia via chest x-ray. Cardiology consultation requested regarding chronic anticoagulation. Warfarin discontinued due to fall risk. Reassess as outpatient with consideration for restarting oral anticoagulation if patient is placed in a monitored setting. Outpatient furosemide 20 mg daily, restarted. Restart clopidogrel pending review of repeat INR. Continue other cardiovascular medications including digoxin, Entresto, rosuvastatin, metoprolol succinate. Cardiology will sign off. Please call with additional questions/concerns. Admission and Anticipated Discharge Date Admission Date: September 02, 2023 Subjective Patient seen and examined at the bedside. Agitated overnight receiving Zyprexa. Arousable to verbal stimuli. Currently not answering questions appropriately however following commands. Moves all extremities. Review of Systems Review of Systems: All systems reviewed & are unremarkable except as noted in Subjective Physical Exam Constitutional: well nourished; no acute distress Respiratory: normal respiratory effort; no respiratory distress and no labored breathing Auscultation: no crackles, no rales and no wheezes Cardiovascular: Rate/Rhythm: regular rate, regular rhythm and + bradycardic Heart Sounds: normal S1, normal S2 and + murmur (1/6 systolic ejection murmur) Vessels: femoral pulses present; no JVD and no carotid bruit Extremities: + edema (1+ bilateral ankle edema) Gastrointestinal (Abdomen): Inspection/Auscultation: normal bowel sounds; abdomen not distended Percussion/Palpation: abdomen soft; abdomen nontender, no guarding and abdomen not rigid Neurologic: CN's II-XI intact bilaterally and moves all extremities; no focal motor deficits Results & Data Vital Signs (Past 12 Hours) Vital Signs Temp Pulse Pulse Resp BP Pulse Ox O2 Del Method 09/03/23 11:25 37.5 C 51 L 16 138/81 94 Nasal Cannula 09/03/23 09:28 Nasal Cannula 09/03/23 07:54 62 09/03/23 07:20 36.9 C 49 L 17 118/57 L 93 Nasal Cannula 09/03/23 03:04 50 L 19 90 Nasal Cannula 09/03/23 02:26 36.5 C 50 L 20 136/62 89 L Nasal Cannula O2 Flow Rate 09/03/23 11:25 4 09/03/23 09:28 4 09/03/23 07:54 09/03/23 07:20 4 09/03/23 03:04 4 09/03/23 02:26 2 Laboratory Results CBC 09/03/23 Range/Units 04:27 WBC 10.12 (4.8-10.8) K/ul RBC 3.82 L (4.70-6.10) M/uL Hgb 13.1 L (14.0-18.0) g/dl Hct 38.9 L (42.0-52.0) % Plt Count 132 (130-400) K/uL Comprehensive Metabolic Panel 09/03/23 Range/Units 04:27 Sodium 141 (136-145) mmol/L Potassium 4.7 (3.5-5.1) mmol/L Chloride 106 (98-107) mmol/L Carbon Dioxide 25 (21-32) mmol/L BUN 30 H (6-23) mg/dl Creatinine 1.22 (0.6-1.4) mg/dl Glucose 120 H (70-99(Fasting)) mg/dl Calcium 9.4 (8.6-10.3) mg/dl Intake and Output 09/02/23 09/03/23 09/03/23 22:59 06:59 14:59 Intake Total 0 / 240 100 / 100 Output Total 100 / 1500 1100 / 1500 Balance -100 / -1260 -1100 / -1260 100 / 100 Intake: IV 100 / 100 Ampicillin/Sulbactam Sod 3,000 100 / 100 mg In Sodium Chlor 0.9% Mini-B 100 ml @ 200 mls/hr IV Q6H [facility] Rx#:[id number] Oral 0 / 240 Output: Urine 100 / 400 Urine Amount (Catheter) 1100 / 1100 Straight 1100 / 1100 Other: Other Intake Source sips # Unmeasured Voids 1 1 Weight 75.2 kg Weight Measurement Method Built in [facility] (1) Fall Encounter type: initial encounter Qualified Code(s): W19.XXXA - Unspecified fall, initial encounter (2) Head injury Encounter type: initial encounter Qualified Code(s): S09.90XA - Unspecified injury of head, initial encounter (6) Pneumonia Laterality: right Lung location: upper lobe of lung Pneumonia type: due to unspecified organism Qualified Code(s): J18.9 - Pneumonia, unspecified organism
[2023-09-03 15:49] LABS: INR 1.4 (0.9-1.1); Prothrombin Time 14.7 Seconds (9.0-12.0)
[2023-09-04] MEDS: UNASYN 3000MG / NS q6h IV SCH ×4 (04:36→21:57)
[2023-09-04] MEDS: LEVOTHYROXINE SODIUM 75 MCG TABLET PO SCH (04:37)
[2023-09-04 05:26] LABS: Hematocrit (blood only) 36.7 % (42.0-52.0); Hemoglobin 12.8 g/dl (14.0-18.0); Mean Corpuscular Hemoglobin 34.7 pg (25.0-34.0); Mean Corpuscular Hgb Conc 34.9 g/dL (32.0-36.0); Mean Corpuscular Volume 99.5 fL (80.0-100.0); Mean Platelet Volume 11.1 fL (9.4-12.4); Nucleated RBC # (auto) 0.02 K/uL (0.00-0.12); Nucleated RBC % (auto) 0.2 %; Platelet Count 125 K/uL (130-400); RDW Coefficient of Variation 13.6 % (11.5-14.5); RDW Standard Deviation 49.7 fL (36.4-46.3); Red Blood Count 3.69 M/uL (4.70-6.10); White Blood Count 11.83 K/ul (4.8-10.8)
[2023-09-04 05:41] LABS: BUN Creatinine Ratio 24.3 (10-20); Creatinine Clr Calc Pharmacy 47.2 ml/min; Est GFR (African American) 65.5 ml/min; Est GFR (Non-African American) 56.5 ml/min; Potassium 3.8 mmol/L (3.5-5.1)
[2023-09-04] MEDS: METOPROLOL SUCC 25MG EXT REL TAB PO SCH ×2 (07:37→19:57)
[2023-09-04] MEDS: VALSARTAN/SACUBITRIL 26/24MG TAB PO SCH ×2 (07:38→19:57)
[2023-09-04] MEDS: CETIRIZINE HCL 10 MG TABLET PO SCH (07:39)
[2023-09-04] MEDS: CLOPIDOGREL BISULFATE 75 MG TAB PO SCH (07:51)
--- NOTE | 2023-09-04 09:29 | Hospitalist Progress Note ---
Date of Service September 04, 2023 Assessment & Plan (1) Aspiration pneumonia: Plan: He has a new right upper airspace opacity likely representing a pneumonia. Was switched to Augmentin however not tolerating p.o. after being somnolent from Zyprexa overnight. Switch back to Unasyn and will continue until he is reliably tolerating p.o. again. Continues to oxygenate well on room air. (2) Delirium: Plan: likely hospital induced delirium. Received Zyprexa overnight. Repeat head CT was negative. Delirium appears to have resolved. High risk for recurrent delirium episodes while in the hospital. (3) Contusion of scalp: Plan: Traumatic scalp hematoma secondary to recurrent falls/ambulatory dysfunction (4) Fall: Plan: PT OT (5) Warfarin-induced coagulopathy: Plan: He received vitamin K 10 mg IV for reversal. No excessive bleeding is noted. Continue to avoid warfarin at this time (6) Anemia: Plan: Anemia has improved today to 13.1. Warfarin has been stopped at this time by cardiology. Plans to restart Plavix in AM. Continue to watch for any bleeding. (7) CKD (chronic kidney disease), stage III: Plan: Chronic, creatinine at baseline. Continue to avoid nephrotoxic substances as able. (8) Coronary artery disease: Plan: Known history of ischemic cardiomyopathy. Elevated troponin likely secondary to acute illness in the setting of structural heart disease. Troponin trend reveals no acceleration upward. He is not demonstrating signs or symptoms of ACS at this time. Continue medical therapy. (9) ICD (implantable cardioverter-defibrillator) in place: (10) HTN (hypertension): Plan: Chronic, controlled, continue current therapy (11) Hypothyroidism: Plan: Slightly hypothyroid with a TSH of 6.5. Recheck in outpatient setting. For now continue home levothyroxine. (12) Ischemic cardiomyopathy: Plan: Chronic heart failure with reduced ejection fraction, compensated. Continue guideline directed medical therapy. (13) Permanent atrial fibrillation: Plan: Chronic, stable. Continue digoxin, metoprolol per home regimen. Warfarin reversal given head trauma and therapeutic INR. Cardiology had a long discussion with patient and regarding risk versus benefit of long-term anticoagulation as it relates to his frequent falls and risk of injury. Recommended at least temporarily holding warfarin at this time and will plan to reassess in the outpatient setting SCDs Full code Disposition-continue telemetry monitoring I discussed the plan with his who was seated at bedside and all questions were answered to her satisfaction. Zully Mcgill DO [facility] Hospitalist Admission and Anticipated Discharge Date Admission Date: September 02, 2023 Subjective 87-year-old man presented status post fall with head injury and scalp abrasion on Coumadin. poor sleep overnight per his who is at bedside. patient is fatigued and confused unable to follow instructions removing his medical devices this am and placed in mitts for a period of time for safety now at bedside and helping to reorient him. he did eat lunch but didn't eat any breakfast this morning I reviewed the results of the head CT and labwork today with his . Physical Exam Physical Exam: CONSTITUTIONAL: WNWD, vitals as above, NAD EYES: pupils are round and equal bilaterally, normal conjunctivae, no scleral icterus ENT: external ear and nose normal, MMM NECK: trachea midline RESPIRATORY: clear to auscultation bilaterally, no crackles, rales or wheezes, normal respiratory effort CARDIOVASCULAR: regular rate and rhythm, S1 and 2 heard without murmurs, gallops or rubs, no JVD, no peripheral edema CHEST: inspection of chest was normal GASTROINTESTINAL: soft, nontender, ND, no guarding MUSCULOSKELETAL: strength 5/5 throughout, head is normocephalic and atraumatic SKIN: warm and dry, superficial laceration in crown of head-covered wtih optifoam. NEUROLOGIC: CN 2-12 grossly intact, no sensory deficit, awake, normal speech, no tremor PSYCHIATRIC: somnolent, delirious. Results & Data Results & Data Vital Signs (Past 12 Hours) Vital Signs Temp Pulse Pulse Resp BP Pulse Ox O2 Del Method 09/04/23 08:20 36.7 C 55 L 18 134/76 93 Nasal Cannula 09/04/23 07:46 61 09/04/23 02:56 36.5 C 64 18 145/71 H 92 Nasal Cannula 09/03/23 23:33 36.5 C 58 L 18 122/46 L 94 Nasal Cannula 09/03/23 22:00 68 09/03/23 21:30 Nasal Cannula O2 Flow Rate 09/04/23 08:20 5 09/04/23 07:46 09/04/23 02:56 4 09/03/23 23:33 4 09/03/23 22:00 09/03/23 21:30 4 Laboratory Results Short CBC 09/04/23 Range/Units 04:42 WBC 11.83 H (4.8-10.8) K/ul Hgb 12.8 L (14.0-18.0) g/dl Hct 36.7 L (42.0-52.0) % Plt Count 125 L (130-400) K/uL BMP 09/04/23 04:42 Sodium 140 Potassium 3.8 Chloride 106 Carbon Dioxide 25 BUN 28 H Creatinine 1.15 Glucose 77 Calcium 9.0 Medications Administered Current Inpatient Medications Acetaminophen (Acetaminophen 325 Mg Tab) 650 mg PO Q4H PRN PRN Reason: Pain or Fever Stop: 10/02/23 00:46 Last Admin: 09/02/23 20:30 Dose: 650 mg Cetirizine HCl (Cetirizine Hcl 10 Mg Tablet) 10 mg PO [facility] Stop: 10/02/23 08:59 Last Admin: 09/04/23 07:39 Dose: 10 mg Clopidogrel Bisulfate (Clopidogrel Bisulfate 75 Mg Tab) 75 mg PO [facility] Stop: 10/04/23 08:59 Last Admin: 09/04/23 07:51 Dose: 75 mg Digoxin (Digoxin 0.125 Mg Tab) 0.125 mg PO TuThSa@1600 [facility] Stop: 10/02/23 15:59 Last Admin: 09/02/23 15:11 Dose: Not Given Furosemide ([facility]ide 20 Mg Tab) [facility] Stop: 10/04/23 14:29 Promethazine HCl 6.25 mg/ (Sodium Chloride) 50.25 mls @ 201 mls/hr IV Q6H PRN PRN Reason: Nausea And Vomiting Stop: 10/02/23 00:46 Ampicillin Sodium/Sulbactam Sodium 3,000 mg/ Sodium Chloride 100 mls @ 200 mls/hr IV Q6H [facility] Stop: 09/10/23 09:59 Last Infusion: 09/04/23 05:18 Dose: Infused Levothyroxine Sodium (Levothyroxine Sodium 75 Mcg Tablet) 75 mcg PO DAILYBB [facility] Stop: 10/02/23 06:29 Last Admin: 09/04/23 04:37 Dose: 75 mcg Metoprolol Succinate (Metoprolol Succ 25mg Ext Rel Tab) 25 mg PO BID [facility] Stop: 10/02/23 08:59 Last Admin: 09/04/23 07:37 Dose: 25 mg Olanzapine (Olanzapine 10 Mg/2.1 Ml Sdv) 2.5 mg IM Q4H PRN PRN Reason: Agitation Stop: 10/03/23 02:31 Rosuvastatin Calcium (Rosuvastatin Calcium 5 Mg Tab) 5 mg PO MoWeFr@0900 [facility] Stop: 10/03/23 08:59 Last Admin: 09/03/23 09:17 Dose: Not Given Sacubitril/Valsartan (Valsartan/Sacubitril 26/24mg Tab) 0.5 tab PO BID [facility] Stop: 10/02/23 08:59 Last Admin: 09/04/23 07:38 Dose: 0.5 tab (1) Aspiration pneumonia Aspiration pneumonia type: unspecified (3) Contusion of scalp Encounter type: initial encounter Qualified Code(s): S00.03XA - Contusion of scalp, initial encounter (4) Fall Encounter type: initial encounter Qualified Code(s): W19.XXXA - Unspecified fall, initial encounter (10) HTN (hypertension) Hypertension type: primary hypertension Qualified Code(s): I10 - Essential (primary) hypertension (11) Hypothyroidism Hypothyroidism type: unspecified Qualified Code(s): E03.9 - Hypothyroidism, unspecified
[2023-09-04] MEDS: ACETAMINOPHEN 325 MG TAB PO PRN (10:27)
[2023-09-04] MEDS: FUROSEMIDE 20 MG TAB PO SCH (14:36)
[2023-09-04] MEDS: DIGOXIN 0.125 MG TAB PO SCH (15:50)
[2023-09-04] MEDS ORDERED: MELATONIN 3 MG TAB PO PRN (19:29)
[2023-09-04] MEDS ORDERED: ALBUT/IPRATROP 3MG/0.5MG NEB 3 ML VIAL NEB STA (19:30)
[2023-09-04] MEDS ORDERED: OLANZAPINE 2.5 MG TAB PO STA (19:41)
--- NOTE | 2023-09-04 19:53 | XRay Report ---
XR chest 1V portable CLINICAL HISTORY: low o2 TECHNIQUE: Single frontal radiograph of the chest was obtained. Comparison: Comparison is made to chest radiograph 09/03/2023 FINDINGS: Lines and tubes are stable. Cardiomegaly is noted. Reticular interstitial opacities are seen. Interva l improvement in multifocal airspace opacities. No evidence of pleural effusion or pneumothorax. IMPRESSION: Interval improvement in multifocal airspace opacities compatible with improving pneumonia. ACT 112: Negative or not required by law. Electronically signed by: Berny Aguila M.D. 09/04/2023 7:52 PM
[2023-09-04 19:54] LABS: Base Excess ABG 0.4 mEq/L (-9-1.8); HCO3 ABG 23 mmol/L (19-24); Oxygen Saturation ABG 95.8 % (90-95); PCO2 ABG 30 mmHg (35-46); PO2 ABG 71 mmHg (80-95); pH ABG 7.49 (7.35-7.45)
[2023-09-04 19:56] LABS: Allen Test Pos (Pos)
--- NOTE | 2023-09-05 01:34 | Communication Note ---
Date of Service: September 05, 2023 Dark red bloody drainage noted in patient's Vanegas catheter as per RN. Patient was pulling on his Vanegas catheter yesterday prior to mitts placement. Patient currently without pain complaints. AP Traumatic hematuria H&H now Hold Plavix for now Bladder irrigation as needed Urology consult
[2023-09-05 02:35] LABS: Appearance Urine Turbid (Clear); Bilirubin Urine 1+ (Negative); Blood Urine 3+ (Negative); Color Urine Red; Glucose Urine UA Negative (Negative); Ketones Urine Trace (Negative); Leukocyte Esterase Urine Trace (Negative); Nitrite Urine Positive (Negative); Protein Urine 3+ (Negative); Urobilinogen Urine Positive (Negative)
[2023-09-05 02:38] LABS: Bacteria Urine Negative (Negative); Epithelial Cell Urine 0-5 /lpf (0-5); RBC Urine >30 /hpf (0-4)
[2023-09-05 03:03] LABS: Calcium 8.2 mg/dl (8.6-10.3); Creatinine Clr Calc Pharmacy 98.7 ml/min; Est GFR (African American) 91.5 ml/min; Magnesium 1.8 mg/dl (1.7-2.4); Phosphorus 2.3 mg/dl (2.5-4.9); Potassium 3.9 mmol/L (3.5-5.1)
[2023-09-05 03:10] LABS: Hematocrit (blood only) 32.6 % (42.0-52.0); Hemoglobin 11.3 g/dl (14.0-18.0); Mean Corpuscular Hemoglobin 34.7 pg (25.0-34.0); Mean Corpuscular Hgb Conc 34.7 g/dL (32.0-36.0); Mean Platelet Volume 10.7 fL (9.4-12.4); Nucleated RBC # (auto) 0.02 K/uL (0.00-0.12); Nucleated RBC % (auto) 0.2 %; Platelet Count 109 K/uL (130-400); RDW Coefficient of Variation 13.6 % (11.5-14.5); RDW Standard Deviation 49.9 fL (36.4-46.3); Red Blood Count 3.26 M/uL (4.70-6.10); White Blood Count 9.16 K/ul (4.8-10.8)
[2023-09-05] MEDS: UNASYN 3000MG / NS q6h IV SCH ×4 (04:43→21:38)
[2023-09-05] MEDS: LEVOTHYROXINE SODIUM 75 MCG TABLET PO SCH ×3 (04:43→05:56)
[2023-09-05 07:57] LABS: Hematocrit (blood only) 35.4 % (42.0-52.0); Hemoglobin 12.6 g/dl (14.0-18.0)
--- NOTE | 2023-09-05 08:26 | Urology Consultation ---
Date of Consultation September 05, 2023 Assessment & Plan (1) Gross hematuria: Plan 87-year-old male who developed hematuria after pulling on his catheter Vanegas catheter is draining light pink urine. No clots in tubing. Recommend observation. Nursing can hand irrigate as necessary. Given that we have a cause for his hematuria he does not require hematuria work-up in the future Vanegas catheter management per primary team Anticoagulation per primary team. From urologic perspective, he can continue anticoagulation based on current consistency of urine Urology to sign off History of Present Illness Reason for Consultation: Hematuria Attending Physician: Zully Mcgill, History of Present Illness 87-year-old male admitted to the hospital for aspiration pneumonia on 09/01/2023. Based on hospital documentation, he was pulling on his catheter prior to mitts placement and then developed hematuria. Review of labs this morning shows a white blood cell count of 9.1, hemoglobin of 12.6, creatinine of 0.82 and a urinalysis that was positive for nitrates, trace leukocyte esterase, greater than 30 RBCs, 10-30 WBCs and negative for bacteria. Patient has not had any cross-sectional imaging of his abdomen or pelvis. Vanegas catheter is draining light pink urine. Patient is resting comfortably. Allergies Allergy/AdvReac Type Severity Reaction Status Date / Time No Known Allergies Allergy Verified 09/02/23 08:02 Home Medications Medication Instructions Recorded Confirmed Type nitroglycerin 0.4 mg sublingual 0.4 mg PO UD PRN Chest Pain ##0 07/06/14 09/01/23 History tablet rosuvastatin 5 mg tablet 5 mg PO MWF ##0 07/06/14 09/01/23 History clopidogrel 75 mg tablet 75 mg PO HS #0 tabs 03/26/18 09/01/23 History coenzyme Q10 200 mg capsule 200 mg PO QAM ##0 03/26/18 09/01/23 History digoxin 125 mcg (0.125 mg) tablet 0.125 mg PO 3XWK ##0 03/26/18 09/01/23 History furosemide 20 mg tablet 40 mg PO QAM #0 tabs 03/26/18 09/01/23 History cholecalciferol (vitamin D3) 50 2,000 units PO DAILY #0 tabs 07/14/19 09/01/23 History mcg (2,000 unit) tablet cetirizine 10 mg tablet 10 mg PO QAM 07/16/20 09/01/23 History sacubitril 24 mg-valsartan 26 mg 0.5 tab PO AMPM 07/16/20 09/01/23 History tablet (Entresto) ipratropium bromide 21 mcg (0.03 2 spray intranasal BID PRN rhinitis 09/01/23 09/01/23 History %) nasal spray levothyroxine 75 mcg tablet 75 mcg PO DAILYBB 09/01/23 09/01/23 History metoprolol succinate 50 mg 50 mg PO UD 09/01/23 09/01/23 History tablet,extended release 24 hr warfarin 5 mg tablet See Rx Instructions .Route .COMPLEX 09/01/23 09/01/23 History Patient History Medical History (Updated 09/05/23 @ 10:49 by Angel Fay MD) Microcytic anemia Gait abnormality Permanent atrial fibrillation Ischemic cardiomyopathy Systolic heart failure Arthritis Myocardial Infarction Pacemaker Congestive heart failure TIA (transient ischemic attack) Atrial fibrillation with rapid ventricular response Surgical History H/O hernia repair History of appendectomy H/O percutaneous transluminal coronary angioplasty Family History Father Stroke syndrome Sister Coronary heart disease Mother Cardiac disorder Social History Smoking Status: Former smoker Cigarettes Per Day: 20; Second Hand Exposure: Yes; Do You Dip or Chew Tobacco: No; Hx Alcohol Use: Yes Alcohol type: beer Hx Substance Use: No Preferred Language: Maori Communication Ability: Effective Visual Impairment: No Limitations Hearing Ability: Normal Closer On Required: No Beliefs That Will Affect Care: None Current Living Situation: Spouse Current Living Situation Comment: Independent living at [facility] Feels Safe at Home: Yes Childhood Exposure to Second-Hand Smoke: No caffeine: Yes Dental Care, Regularly: Yes Physical Activity Frequency: 1-2 Times per Week Seatbelt Use: always Sunscreen Use: No Assistive Devices: Cane and Walker Review of Systems Review of Systems: 14 point review of systems negative outs isidra of what is listed above in HPI Physical Exam Physical Exam: General: Alert and oriented, no acute distress HEENT: Normocephalic, mucous membranes moist Pulmonary: Nonlabored respirations Abdomen: Nondistended : Vanegas catheter draining light pink urine. Extremities: Moves all 4 spontaneously Neuro: No gross deficits Skin: Warm, dry, no rashes noted Results & Data Vital Signs (Past 12 Hours) Vital Signs Temp Pulse Pulse Resp BP Pulse Ox O2 Del Method 09/05/23 05:03 36.8 C 63 20 117/55 L 95 Nasal Cannula 09/04/23 23:17 36.5 C 62 18 129/82 94 Nasal Cannula 09/04/23 22:20 70 O2 Flow Rate 09/05/23 05:03 3 09/04/23 23:17 3 09/04/23 22:20 PG Care Time/CCT Total # of Minutes Spent Total Time Spent with Patient: Total time spent is greater than 50% in coordination of care (as documented) at patient's floor/unit and/or counseling patient: Coding Level of Care Code 46122 INT INP/OBS CARE 2/55MIN Diagnoses Gross hematuria R31.0
[2023-09-05] MEDS: VALSARTAN/SACUBITRIL 26/24MG TAB PO SCH ×2 (08:35→20:20)
[2023-09-05] MEDS: METOPROLOL SUCC 25MG EXT REL TAB PO SCH ×2 (08:35→20:20)
[2023-09-05] MEDS: FUROSEMIDE 20 MG TAB PO SCH (08:38)
[2023-09-05] MEDS: CETIRIZINE HCL 10 MG TABLET PO SCH (08:39)
--- NOTE | 2023-09-05 09:23 | Hospitalist Progress Note ---
Date of Service September 05, 2023 Assessment & Plan (1) Aspiration pneumonia: Plan: He has a new right upper airspace opacity likely representing a pneumonia. Cont Unasyn for now. Continues to oxygenate well on room air. (2) Delirium: Plan: likely hospital induced delirium in the setting of pneumonia. Repeat head CT was negative. Recurrent delirium state, cont to reorient and ensure pain is well controlled. (3) Contusion of scalp: Plan: Traumatic scalp hematoma-resolved and optifoam has been removed. secondary to recurrent falls/ambulatory dysfunction (4) Fall: Plan: PT OT (5) Warfarin-induced coagulopathy: Plan: He received vitamin K 10 mg IV for reversal. No excessive bleeding is noted. Continue to avoid warfarin at this time per cardiology. (6) Anemia: Plan: Hb stable-new gross hematuria 2/2 traumatic damian manipulation per patient. Warfarin has been stopped at this time by cardiology. hold plavix which was restarted on 09/04. Per urology there are no clots in tubing and observation is recommended. Nurses can hand irrigate as necessary. We will allow hematuria to resolve more prior to restarting Plavix. (7) CKD (chronic kidney disease), stage III: Plan: Chronic, creatinine at baseline. Continue to avoid nephrotoxic substances as able. (8) Gross hematuria: Plan: per plan above. (9) Coronary artery disease: Plan: Known history of ischemic cardiomyopathy. Elevated troponin likely secondary to acute illness in the setting of structural heart disease. Troponin trend reveals no acceleration upward. He is not demonstrating signs or symptoms of ACS at this time. Continue medical therapy. (10) ICD (implantable cardioverter-defibrillator) in place: (11) HTN (hypertension): Plan: Chronic, controlled, continue current therapy (12) Hypothyroidism: Plan: Slightly hypothyroid with a TSH of 6.5. Recheck in outpatient setting. For now continue home levothyroxine. (13) Ischemic cardiomyopathy: Plan: Chronic heart failure with reduced ejection fraction, compensated. Continue guideline directed medical therapy. (14) Permanent atrial fibrillation: Plan: Chronic, stable. Continue digoxin, metoprolol per home regimen. Warfarin reversal given head trauma and therapeutic INR. Cardiology had a long discu ssion with patient and regarding risk versus benefit of long-term anticoagulation as it relates to his frequent falls and risk of injury. No coumadin moving forward. SCDs Full code Disposition-rehab pending resolution of delirium Zully Mcgill DO [facility] Hospitalist Admission and Anticipated Discharge Date Admission Date: September 02, 2023 Subjective 87-year-old man presented status post fall with head injury and scalp abrasion on Coumadin. pt still somewhat confused but not currently combative he is not oriented but trying to cooperate, unable to fully follow instructions ROS limited secondary ongoing delirium Physical Exam Physical Exam: CONSTITUTIONAL: WNWD, vitals as above, NAD, restraint mitts are in place. EYES: pupils are round and equal bilaterally, normal conjunctivae, no scleral icterus ENT: external ear and nose normal, MMM NECK: trachea midline RESPIRATORY: clear to auscultation bilaterally, no crackles, rales or wheezes, normal respiratory effort CARDIOVASCULAR: regular rate and rhythm, S1 and 2 heard without murmurs, gallops or rubs, no JVD, no peripheral edema CHEST: inspection of chest was normal GASTROINTESTINAL: soft, nontender, ND, no guarding MUSCULOSKELETAL: strength 5/5 throughout, head is normocephalic and mild ecchymosis to crown of head-healing well SKIN: warm and dry, NEUROLOGIC: CN 2-12 grossly intact, no sensory deficit, awake, normal speech, no tremor PSYCHIATRIC: alert, disoriented, deliriuous Results & Data Results & Data Vital Signs (Past 12 Hours) Vital Signs Temp Pulse Resp BP Pulse Ox O2 Del Method O2 Flow Rate 09/05/23 05:03 36.8 C 63 20 117/55 L 95 Nasal Cannula 3 09/04/23 23:17 36.5 C 62 18 129/82 94 Nasal Cannula 3 Laboratory Results Short CBC 09/05/23 09/05/23 Range/Units 02:24 07:38 WBC 9.16 (4.8-10.8) K/ul Hgb 11.3 L 12.6 L (14.0-18.0) g/dl Hct 32.6 L 35.4 L (42.0-52.0) % Plt Count 109 L (130-400) K/uL BMP 09/05/23 02:24 Sodium 138 Potassium 3.9 Chloride 106 Carbon Dioxide 26 BUN 23 Creatinine 0.82 D Glucose 112 H Calcium 8.2 L Urine 09/05/23 Range/Units 02:09 Urine Color Red Urine Appearance Turbid A (Clear) Urine pH 7.0 (4.5-7.5) Ur Specific [place] 1.020 (1.000-1.030) Urine Protein 3+ H (Negative) Urine Glucose (UA) Negative (Negative) Medications Administered Current Inpatient Medications Acetaminophen (Acetaminophen 325 Mg Tab) 650 mg PO Q4H PRN PRN Reason: Pain or Fever Stop: 10/02/23 00:46 Last Admin: 09/04/23 10:27 Dose: 650 mg Cetirizine HCl (Cetirizine Hcl 10 Mg Tablet) 10 mg PO [facility] Stop: 10/02/23 08:59 Last Admin: 09/05/23 08:39 Dose: 10 mg Clopidogrel Bisulfate (Clopidogrel Bisulfate 75 Mg Tab) 75 mg PO [facility] Stop: 10/04/23 08:59 Last Admin: 09/04/23 07:51 Dose: 75 mg Digoxin (Digoxin 0.125 Mg Tab) 0.125 mg PO TuThSa@1600 [facility] Stop: 10/02/23 15:59 Last Admin: 09/04/23 15:50 Dose: Not Given Furosemide (Furosemide 20 Mg Tab) [facility] [place] [place] Stop: 10/04/23 14:29 Last Admin: 09/05/23 08:38 Dose: 20 mg Promethazine HCl 6.25 mg/ (Sodium Chloride) 50.25 mls @ 201 mls/hr IV Q6H PRN PRN Reason: Nausea And Vomiting Stop: 10/02/23 00:46 Ampicillin Sodium/Sulbactam Sodium 3,000 mg/ Sodium Chloride 100 mls @ 200 mls/hr IV Q6H [facility] Stop: 09/10/23 09:59 Last Admin: 09/05/23 08:39 Dose: 200 mls/hr Levothyroxine Sodium (Levothyroxine Sodium 75 Mcg Tablet) 75 mcg PO DAILYBB [facility] Stop: 10/02/23 06:29 Last Admin: 09/05/23 05:56 Dose: 75 mcg Melatonin (Melatonin 3 Mg Tab) 3 mg PO HS PRN PRN Reason: Sleep Stop: 10/04/23 19:28 Metoprolol Succinate (Metoprolol Succ 25mg Ext Rel Tab) 25 mg PO BID [facility] Stop: 10/02/23 08:59 Last Admin: 09/05/23 08:35 Dose: 25 mg Olanzapine (Olanzapine 10 Mg/2.1 Ml Sdv) 2.5 mg IM Q4H PRN PRN Reason: Agitation Stop: 10/03/23 02:31 Rosuvastatin Calcium (Rosuvastatin Calcium 5 Mg Tab) 5 mg PO MoWeFr@0900 [facility] Stop: 10/03/23 08:59 Last Admin: 09/03/23 09:17 Dose: Not Given Sacubitril/Valsartan (Valsartan/Sacubitril 26/24mg Tab) 0.5 tab PO BID [facility] Stop: 10/02/23 08:59 Last Admin: 09/05/23 08:35 Dose: 0.5 tab (1) Aspiration pneumonia Aspiration pneumonia type: unspecified (3) Contusion of scalp Encounter type: initial encounter Qualified Code(s): S00.03XA - Contusion of scalp, initial encounter (4) Fall Encounter type: initial encounter Qualified Code(s): W19.XXXA - Unspecified fall, initial encounter (11) HTN (hypertension) Hypertension type: primary hypertension Qualified Code(s): I10 - Essential (primary) hypertension (12) Hypothyroidism Hypothyroidism type: unspecified Qualified Code(s): E03.9 - Hypothyroidism, unspecified
[2023-09-05] MEDS ORDERED: ALBUMIN 25% 25 GM/100 ML VIAL IV ONE (23:42)
[2023-09-06] MEDS: UNASYN 3000MG / NS q6h IV SCH ×4 (02:59→21:07)
[2023-09-06] MEDS: LEVOTHYROXINE SODIUM 75 MCG TABLET PO SCH (05:19)
[2023-09-06] MEDS: VALSARTAN/SACUBITRIL 26/24MG TAB PO SCH ×2 (08:37→21:04)
[2023-09-06] MEDS: METOPROLOL SUCC 25MG EXT REL TAB PO SCH ×2 (08:37→21:04)
[2023-09-06] MEDS: FUROSEMIDE 20 MG TAB PO SCH (08:38)
[2023-09-06] MEDS: ROSUVASTATIN CALCIUM 5 MG TAB PO SCH (08:38)
--- NOTE | 2023-09-06 10:35 | Hospitalist Progress Note ---
Date of Service September 06, 2023 Assessment & Plan (1) Aspiration pneumonia: Plan: He has a new right upper airspace opacity likely representing a pneumonia. Cont Unasyn for now-EOT 09/07. Continues to oxygenate well on room air. (2) Delirium: Plan: likely hospital induced delirium in the setting of pneumonia. Repeat head CT was negative. Recurrent delirium state, cont to reorient and ensure pain is well controlled. Start empiric tylenol to treat pain related to damian trauma. notes he takes Tylenol regularly at home, also. (3) Contusion of scalp: Plan: Traumatic scalp hematoma-resolved and optifoam has been removed. secondary to recurrent falls/ambulatory dysfunction (4) Fall: Plan: PT OT (5) Warfarin-induced coagulopathy: Plan: He received vitamin K 10 mg IV for reversal. No excessive bleeding is noted. Continue to avoid warfarin at this time per cardiology. (6) Anemia: Plan: Hb stable-new gross hematuria 2/2 traumatic damian manipulation per patient. Warfarin has been stopped at this time by cardiology. hold plavix which was restarted on 09/04. Per urology there are no clots in tubing and observation is recommended. Nurses can hand irrigate as necessary. We will allow hematuria to resolve more prior to restarting Plavix. (7) CKD (chronic kidney disease), stage III: Plan: Chronic, creatinine at baseline. Continue to avoid nephrotoxic substances as able. (8) Gross hematuria: Plan: per plan above. (9) Coronary artery disease: Plan: Known history of ischemic cardiomyopathy. Elevated troponin likely secondary to acute illness in the setting of structural heart disease. Troponin trend reveals no acceleration upward. He is not demonstrating signs or symptoms of ACS at this time. Continue medical therapy. (10) ICD (implantable cardioverter-defibrillator) in place: (11) HTN (hypertension): Plan: Chronic, controlled, continue current therapy (12) Hypothyroidism: Plan: Slightly hypothyroid with a TSH of 6.5. Recheck in outpatient setting. For now continue home levothyroxine. (13) Ischemic cardiomyopathy: Plan: Chronic heart failure with reduced ejection fraction, compensated. Continue guideline directed medical therapy. (14) Permanent atrial fibrillation: Plan: Chronic, stable. Continue digoxin, metoprolol per home regimen. Warfarin reversal given head trauma and therapeutic INR. Cardiology had a long discussion with patient and regarding risk versus benefit of long-term anticoagulation as it relates to his frequent falls and risk of injury. No coumadin moving forward. SCDs Full code Disposition-rehab pending resolution of delirium DO Darci Willams Hospitalist Admission and Anticipated Discharge Date Admission Date: September 02, 2023 Subjective 87-year-old man presented status post fall with head injury and scalp abrasion on Coumadin. pt still somewhat confused but not currently combative failed TOV last night and had damian replaced for AUR persistent tugging and damian trauma overnight Urology updated about ongoing hematuria with clots. pt clearly has some pain but is on no pain medications. discussed with and daughter at bedside about scheduled IV APAP and they verbalized agreement. Physical Exam Physical Exam: CONSTITUTIONAL: WNWD, vitals as above, slightly distressed when trying to get out of bed. EYES: pupils are round and equal bilaterally, normal conjunctivae, no scleral icterus ENT: external ear and nose normal, MMM NECK: trachea midline RESPIRATORY: clear to auscultation bilaterally, no crackles, rales or wheezes, normal respiratory effort CARDIOVASCULAR: regular rate and rhythm, S1 and 2 heard without murmurs, gallops or rubs, no JVD, no peripheral edema CHEST: inspection of chest was normal GASTROINTESTINAL: soft, nontender, ND, no guarding : damian in place with gross hematuria present MUSCULOSKELETAL: strength 5/5 throughout, head is normocephalic and mild ecchymosis to crown of head-healing well SKIN: warm and dry, NEUROLOGIC: CN 2-12 grossly intact, no sensory deficit, awake, normal speech, no tremor PSYCHIATRIC: alert, disoriented, delirious Results & Data Results & Data Vital Signs (Past 12 Hours) Vital Signs Temp Pulse Resp BP Pulse Ox O2 Del Method 09/06/23 07:45 36.4 C L 66 18 147/78 H 90 Room Air 09/05/23 23:04 37 C 71 18 147/81 H 92 Room Air Medications Administered Current Inpatient Medications Acetaminophen (Acetaminophen 325 Mg Tab) 650 mg PO Q4H PRN PRN Reason: Pain or Fever Stop: 10/02/23 00:46 Last Admin: 09/04/23 10:27 Dose: 650 mg Clopidogrel Bisulfate (Clopidogrel Bisulfate 75 Mg Tab) 75 mg PO QAM [facility] Stop: 10/04/23 08:59 Last Admin: 09/04/23 07:51 Dose: 75 mg Digoxin (Digoxin 0.125 Mg Tab) 0.125 mg PO TuThSa@1600 [facility] Stop: 10/02/23 15:59 Last Admin: 09/04/23 15:50 Dose: Not Given Furosemide (Furosemide 20 Mg Tab) 20 mg PO QAM [facility] Stop: 10/04/23 14:29 Last Admin: 09/06/23 08:38 Dose: 20 mg Promethazine HCl 6.25 mg/ (Sodium Chloride) 50.25 mls @ 201 mls/hr IV Q6H PRN PRN Reason: Nausea And Vomiting Stop: 10/02/23 00:46 Ampicillin Sodium/Sulbactam Sodium 3,000 mg/ Sodium Chloride 100 mls @ 200 mls/hr IV Q6H [facility] Stop: 09/07/23 22:00 Last Infusion: 09/06/23 10:03 Dose: Infused Levothyroxine Sodium (Levothyroxine Sodium 75 Mcg Tablet) 75 mcg PO DAILYBB [facility] Stop: 10/02/23 06:29 Last Admin: 09/06/23 05:19 Dose: 75 mcg Melatonin (Melatonin 3 Mg Tab) 3 mg PO HS PRN PRN Reason: Sleep Stop: 10/04/23 19:28 Metoprolol Succinate (Metoprolol Succ 25mg Ext Rel Tab) 25 mg PO BID [facility] Stop: 10/02/23 08:59 Last Admin: 09/06/23 08:37 Dose: 25 mg Olanzapine (Olanzapine 10 Mg/2.1 Ml Sdv) 2.5 mg IM Q4H PRN PRN Reason: Agitation Stop: 10/03/23 02:31 Last Admin: 09/06/23 02:31 Dose: 2.5 mg Rosuvastatin Calcium (Rosuvastatin Calcium 5 Mg Tab) 5 mg PO [id number] [facility] Stop: 10/03/23 08:59 Last Admin: 09/06/23 08:38 Dose: 5 mg Sacubitril/Valsartan (Valsartan/Sacubitril 26/24mg Tab) 0.5 tab PO BID [facility] Stop: 10/02/23 08:59 Last Admin: 09/06/23 08:37 Dose: 0.5 tab (1) Aspiration pneumonia Aspiration pneumonia type: unspecified (3) Contusion of scalp Encounter type: initial encounter Qualified Code(s): S00.03XA - Contusion of scalp, initial encounter (4) Fall Encounter type: initial encounter Qualified Code(s): W19.XXXA - Unspecified fall, initial encounter (11) HTN (hypertension) Hypertension type: primary hypertension Qualified Code(s): I10 - Essential (primary) hypertension (12) Hypothyroidism Hypothyroidism type: unspecified Qualified Code(s): E03.9 - Hypothyroidism, unspecified
--- NOTE | 2023-09-06 12:22 | Urology Progress Note ---
Date of Service September 06, 2023 Assessment & Plan (1) Gross hematuria: Plan 87-year-old male who developed hematuria after pulling on his catheter. Urology asked to revisit patient due to worsening hematuria after pulling on catheter. Vanegas catheter is in place due to urinary retention. Patient was been pulling on his catheter again causing worsening hematuria. Vanegas catheter is currently draining light pink urine. No clots in tubing. Patient currently has bilateral mitts in place. Recommend continue with observation. Nursing can hand irrigate catheter as necessary. Given that we have a cause for his hematuria he does not require hematuria work-up in the future. Vanegas catheter management per primary team. Anticoagulation per primary team. From urologic perspective, he can continue anticoagulation based on current consistency of urine. Urology to sign off. Admission and Anticipated Discharge Date Admission Date: September 02, 2023 Subjective Urology asked by RN/hospitalist to reevaluate patient for hematuria. Per RN, patient had pulled at catheter and it was draining red urine with some clots noted. Patient is awake and sitting up in bed, no apparent distress. Family at bedside. He is alert. Offers no complaints. Vanegas patent and draining light pink urine in tubing. Review of Systems Review of Systems: Unobtainable due to cognitive status Physical Exam Physical Exam: General: well-appearing, no acute distress HEENT: Normocephalic Pulmonary: Nonlabored respirations Abdomen: Nondistended Extremities: Moves all 4 spontaneously, bilateral hands with mitts Psych: alert, oriented to person Skin: Warm, dry : Vanegas patent and draining clear pink urine Results & Data Vital Signs (Past 12 Hours) Vital Signs Temp Pulse Resp BP Pulse Ox O2 Del Method O2 Flow Rate 09/06/23 11:33 Nasal Cannula 3 09/06/23 11:27 36.8 C 60 17 138/76 92 Room Air 09/06/23 07:45 36.4 C L 66 18 147/78 H 90 Room Air PG Care Time/CCT Total # of Minutes Spent Total Time Spent with Patient: Total time spent is greater than 50% in coordination of care (as documented) at patient's floor/unit and/or counseling patient: Coding Level of Care Code 19953 SUB INP/OBS CARE 1/25MIN Diagnoses Gross hematuria R31.0
[2023-09-06] MEDS: ACETAMINOPHEN 1,000 MG/100 ML VIAL IV SCH (17:22)
[2023-09-07] MEDS: ACETAMINOPHEN 1,000 MG/100 ML VIAL IV SCH ×2 (01:11→08:33)
[2023-09-07] MEDS: UNASYN 3000MG / NS q6h IV SCH ×4 (04:55→21:43)
[2023-09-07 05:16] LABS: Hematocrit (blood only) 34.6 % (42.0-52.0); Hemoglobin 12.2 g/dl (14.0-18.0); Mean Corpuscular Hemoglobin 34.6 pg (25.0-34.0); Mean Corpuscular Hgb Conc 35.3 g/dL (32.0-36.0); Mean Platelet Volume 10.8 fL (9.4-12.4); Nucleated RBC # (auto) 0.02 K/uL (0.00-0.12); Nucleated RBC % (auto) 0.3 %; Platelet Count 121 K/uL (130-400); RDW Coefficient of Variation 13.6 % (11.5-14.5); Red Blood Count 3.53 M/uL (4.70-6.10); White Blood Count 7.75 K/ul (4.8-10.8)
[2023-09-07 05:37] LABS: BUN Creatinine Ratio 22.8 (10-20); Calcium 8.2 mg/dl (8.6-10.3); Creatinine Clr Calc Pharmacy 56.1 ml/min; Est GFR (African American) 85.8 ml/min; Potassium 3.5 mmol/L (3.5-5.1)
[2023-09-07] MEDS: LEVOTHYROXINE SODIUM 75 MCG TABLET PO SCH (06:05)
[2023-09-07] MEDS: FUROSEMIDE 20 MG TAB PO SCH (08:36)
[2023-09-07] MEDS: METOPROLOL SUCC 25MG EXT REL TAB PO SCH ×2 (08:36→21:47)
[2023-09-07] MEDS: VALSARTAN/SACUBITRIL 26/24MG TAB PO SCH ×2 (08:36→21:48)
--- NOTE | 2023-09-07 10:07 | Hospitalist Progress Note ---
Date of Service September 07, 2023 Assessment & Plan (1) Aspiration pneumonia: Plan: He has a new right upper airspace opacity likely representing a pneumonia. Cont Unasyn for now-EOT 09/07. Continues to oxygenate well on room air. (2) Delirium: Plan: likely hospital induced delirium in the setting of pneumonia. Repeat head CT was negative. Recurrent delirium state, cont to reorient and ensure pain is well controlled. Start empiric tylenol to treat pain related to damian trauma. notes he takes Tylenol regularly at home, also. *delirium resolved. (3) Contusion of scalp: Plan: Traumatic scalp hematoma-resolved and optifoam has been removed. secondary to recurrent falls/ambulatory dysfunction (4) Fall: Plan: PT OT (5) Warfarin-induced coagulopathy: Plan: He received vitamin K 10 mg IV for reversal. Continue to avoid warfarin at this time per cardiology. Currently with ongoinng hematuria but no decrease in H/H. Resume Plavix when able. (6) Anemia: Plan: Hb stable-new gross hematuria 2/2 traumatic damian manipulation per patient. Warfarin has been stopped at this time by cardiology. hold plavix which was restarted on 09/04. Per urology there are no clots in tubing and observation is recommended. Nurses can hand irrigate as necessary. We will allow hematuria to resolve more prior to restarting Plavix. (7) CKD (chronic kidney disease), stage III: Plan: Chronic, creatinine at baseline. Continue to avoid nephrotoxic substances as able. (8) Gross hematuria: Plan: per plan above. (9) Coronary artery disease: Plan: Known history of ischemic cardiomyopathy. Elevated troponin likely secondary to acute illness in the setting of structural heart disease. Troponin trend r eveals no acceleration upward. He is not demonstrating signs or symptoms of ACS at this time. Continue medical therapy. (10) ICD (implantable cardioverter-defibrillator) in place: (11) HTN (hypertension): Plan: Chronic, controlled, continue current therapy (12) Hypothyroidism: Plan: Slightly hypothyroid with a TSH of 6.5. Recheck in outpatient setting. For now continue home levothyroxine. (13) Ischemic cardiomyopathy: Plan: Chronic heart failure with reduced ejection fraction, compensated. Continue guideline directed medical therapy. (14) Permanent atrial fibrillation: Plan: Chronic, stable. Continue digoxin, metoprolol per home regimen. Warfarin reversal given head trauma and therapeutic INR. Cardiology had a long discussion with patient and regarding risk versus benefit of long-term anticoagulation as it relates to his frequent falls and risk of injury. No coumadin moving forward. SCDs Full code Disposition-rehab pending resolution of delirium Zully Mcgill DO [facility] Hospitalist Admission and Anticipated Discharge Date Admission Date: September 02, 2023 Subjective 87-year-old man presented status post fall with head injury and scalp abrasion on Coumadin. delirium resolved today although slightly fatigued on the scheduled Tylenol continuing this for now per and daughter who are excited for his improvement. patient denies pain today and is oriented and tolerating PO Physical Exam Physical Exam: CONSTITUTIONAL: WNWD, vitals as above, NAD EYES: pupils are round and equal bilaterally, normal conjunctivae, no scleral icterus ENT: external ear and nose normal, MMM NECK: trachea midline RESPIRATORY: clear to auscultation bilaterally, no crackles, rales or wheezes, normal respiratory effort CARDIOVASCULAR: regular rate and rhythm, S1 and 2 heard without murmurs, gallops or rubs, no JVD, no peripheral edema CHEST: inspection of chest was normal GASTROINTESTINAL: soft, nontender, ND, no guarding : damian in place with gross hematuria present MUSCULOSKELETAL: strength 5/5 throughout, head is normocephalic and mild ecchymosis to crown of head-healing well SKIN: warm and dry, NEUROLOGIC: CN 2-12 grossly intact, no sensory deficit, awake, normal speech, no tremor PSYCHIATRIC: alert, disoriented, delirious Results & Data Results & Data Vital Signs (Past 12 Hours) Vital Signs Temp Pulse Resp BP Pulse Ox O2 Del Method 09/07/23 07:46 36.5 C 57 L 17 112/67 94 Room Air 09/07/23 03:00 36.9 C 55 L 18 128/76 93 Room Air 09/06/23 22:53 36.7 C 66 20 126/64 95 Room Air 09/06/23 22:25 Room Air Laboratory Results Short CBC 09/07/23 Range/Units 04:32 WBC 7.75 (4.8-10.8) K/ul Hgb 12.2 L (14.0-18.0) g/dl Hct 34.6 L (42.0-52.0) % Plt Count 121 L (130-400) K/uL BMP 09/07/23 04:32 Sodium 137 Potassium 3.5 Chloride 105 Carbon Dioxide 25 BUN 21 Creatinine 0.92 Glucose 87 Calcium 8.2 L Medications Administered Current Inpatient Medications Clopidogrel Bisulfate (Clopidogrel Bisulfate 75 Mg Tab) 75 mg PO QAM [facility] Stop: 10/04/23 08:59 Last Admin: 09/04/23 07:51 Dose: 75 mg Digoxin (Digoxin 0.125 Mg Tab) 0.125 mg PO TuThSa@1600 [facility] Stop: 10/02/23 15:59 Last Admin: 09/04/23 15:50 Dose: Not Given Furosemide (F[facility]semide 20 Mg Tab) [facility] Stop: 10/04/23 14:29 Last Admin: 09/07/23 08:36 Dose: 20 mg Promethazine HCl 6.25 mg/ (Sodium Chloride) 50.25 mls @ 201 mls/hr IV Q6H PRN PRN Reason: Nausea And Vomiting Stop: 10/02/23 00:46 Ampicillin Sodium/Sulbactam Sodium 3,000 mg/ Sodium Chloride 100 mls @ 200 mls/hr IV Q6H [facility] Stop: 09/07/23 22:00 Last Infusion: 09/07/23 09:46 Dose: 200 mls/hr Acetaminophen (Ofirmev) 1,000 mg in 100 mls @ 400 mls/hr IV Q8H [facility] Stop: 09/07/23 16:59 Last Infusion: 09/07/23 08:54 Dose: Infused Levothyroxine Sodium (Levothyroxine Sodium 75 Mcg Tablet) 75 mcg PO DAILYBB [facility] Stop: 10/02/23 06:29 Last Admin: 09/07/23 06:05 Dose: 75 mcg Melatonin (Melatonin 3 Mg Tab) 3 mg PO HS PRN PRN Reason: Sleep Stop: 10/04/23 19:28 Last Admin: 09/06/23 21:10 Dose: 3 mg Metoprolol Succinate (Metoprolol Succ 25mg Ext Rel Tab) 25 mg PO BID [facility] Stop: 10/02/23 08:59 Last Admin: 09/07/23 08:36 Dose: 25 mg Olanzapine (Olanzapine 10 Mg/2.1 Ml Sdv) 2.5 mg IM Q4H PRN PRN Reason: Agitation Stop: 10/03/23 02:31 Last Admin: 09/06/23 02:31 Dose: 2.5 mg Rosuvastatin Calcium (Rosuvastatin Calcium 5 Mg Tab) 5 mg PO MoWeFr@0900 [facility] Stop: 10/03/23 08:59 Last Admin: 09/06/23 08:38 Dose: 5 mg Sacubitril/Valsartan (Valsartan/Sacubitril 26/24mg Tab) 0.5 tab PO BID [facility] Stop: 10/02/23 08:59 Last Admin: 09/07/23 08:36 Dose: 0.5 tab (1) Aspiration pneumonia Aspiration pneumonia type: unspecified (3) Contusion of scalp Encounter type: initial encounter Qualified Code(s): S00.03XA - Contusion of scalp, initial encounter (4) Fall Encounter type: initial encounter Qualified Code(s): W19.XXXA - Unspecified fall, initial encounter (11) HTN (hypertension) Hypertension type: primary hypertension Qualified Code(s): I10 - Essential (primary) hypertension (12) Hypothyroidism Hypothyroidism type: unspecified Qualified Code(s): E03.9 - Hypothyroidism, unspecified
--- NOTE | 2023-09-07 10:54 | XRay Report ---
SINGLE VIEW CHEST CLINICAL HISTORY: Follow-up pneumonia FINDINGS: An AP, portable, upright chest radiograph is compared to study dated 09/04/2023. Correlation is made with chest CT dated 07/11/2018. The examination is degraded by portable technique and patient rotation. A single lead cardiac AICD is unchanged in position and partially obscures the left upper chest. The heart is enlarged noting atherosclerotic calcification of the thoracic aorta. There is pul monary vascular congestion. Emphysema and chronic interstitial thickening similar to previous. There is increasing airspace consolidation in the right upper lobe. Consolidation is again seen at both brandan g bases. Small pleural effusions are suspected. No pneumothorax is seen. The skeletal structures are osteopenic. The bony thorax is grossly intact. IMPRESSION: 1. Cardiomegaly and AICD. There is mild pulmonary vascular congestion. 2. Emphysema. 3. There is increasing airspace consolidation in the right upper lobe as well as persistent bibasilar opacities. The appearance favors multifocal pneumonia. Clinical correlation will be essential and ra diographic follow-up to resolution is recommended. 4. Suspect small pleural effusions. ACT 112: Negative or not required by law. Electronically signed by: Venkata Timmons M.D. 09/07/2023 10:53 AM
[2023-09-07] MEDS: DIGOXIN 0.125 MG TAB PO SCH (16:40)
[2023-09-07] MEDS: ACETAMINOPHEN 500 MG TAB PO SCH (16:40)
--- OUTSIDE RECORDS SUMMARY | 2023-09-08 00:35 | External Medical Summary | Summary of Care ---
Author Name Unknown Organization [facility] Address [address] [facility] [place] [address] Phone [phone] Care Team Providers Care Credit Reference Clerk Name Role Phone Aftab Perla MD Primary Care Provider + Reason for Visit * Reason Onset Date Comments Test Results 08/31/2023 Encounter Details Date Type Department Care Team (Late st Contact Info) Description 08/31/2023 Telephone Cardiology, [facility] [address] [place] [address] Wilmar Lay PA-C [address] [place] [id number] Test Results Allergies No known active allergiesdocumented as of this encounter (statuses as of 09/01/2023) Medications Medication Sig Dispensed Refills Start Date End Date Status VITAMIN D 2000 UNITS PO TABS one tablet daily 0 Activ e nitroglycerin (NITROSTAT) 0.4 MG SUBLIndications:Cor onary artery disease involving [place] coronary artery of [place] heart without angina pectoris,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 25 Tab 11 07/21/2016 Active Additional Information Patient not taking.Reported on 08/31/2023 Coenzyme Q10 (COQ10) 200 MG CAPS Take 1 Cap by mouth daily. 0 Active Cetirizine HCl 10 MG Oral Capsule Take 1 Capsule by mouth in the morning. 0 Active Levothyroxine Sodium 75 MCG Oral Tablet (Levoxyl) Take 1 Tablet by mouth in the morning. 0 10/22/2022 Active Clopidogrel Bisulfate 75 MG Oral Tablet (pLAVix)Indications :Permanent atrial fibrillation (HCC) Take 1 tablet by mouth once daily 90 Tablet 3 12/29/2022 Active Metoprolol Succinate ER 50 MG Oral Tablet Extended Release 24 Hour (toPROL XL)Indications:Atri al fibrillation, unspecified type (HCC) Take 2 in the morning , 1 1/2 in the evening 315 Tablet 3 01/07/2023 Active Furosemide 20 MG Oral Tablet (Lasix)Indications: Heart failure, systolic, due to CAD Take 2 tablets by mouth in the morning. 180 Tablet 3 02/17/2023 Active Additional Information Patient taking differently: 20 mg Oral Daily(AM), Take 2 tablets by mouth in the morning., Reported on 08/09/2023 Warfarin Sodium 5 MG Oral Tablet (Coumadin)Indicatio ns:Atrial fibrillation (HCC) TAKE 1/2 (ONE-HALF) TABLET BY MOUTH ON WEDNESDAY, WEDNESDAY AND WEDNESDAY AND 1 TABLET ALL OTHER DAYS. 70 Tablet 3 03/08/2023 Active Rosuvastatin Calcium 5 MG Oral Tablet (Crestor)Indication s:Heart failure, systolic, due to CAD,Ischemic cardiomyopathy,AICD (automatic cardioverter/defibr illator) present,Coronary artery disease of [place] artery of [place] heart with stable angina pectoris (HCC) Take 1 Tablet by mouth once a day on Wednesday, Wednesday, and Wednesday only. TAKE 1 TABLET BY MOUTH ON WEDNESDAY, WEDNESDAY AND WEDNESDAY 39 Tablet 3 05/14/2023 Active Entresto 24-26 MG Oral Tablet (sacubitril-valsart an 24-26 mg per tab)Indications:Isc hemic cardiomyopathy,Hear t failure, systolic, due to CAD Take 1/2 tab each am and pm 90 Tablet 3 08/09/2023 Active Digoxin 125 MCG Oral Tablet (Lanoxin)Indication s:Coronary artery disease involving [place] coronary artery of [place] heart without angina pectoris,Chronic atrial fibrillation (HCC) TAKE 1 TABLET BY MOUTH ON WEDNESDAY, WEDNESDAY AND WEDNESDAY 30 Tablet 3 08/16/2023 Active Ipratropium [place] 0.03 % Nasal Solution (Atrovent)Indicatio ns:Post-nasal drip Administer 2 Sprays into each nostril 2 times a day as needed for Rhinitis. for runny nose 30 mL 1 08/31/2023 Active documented as of this encounter (statuses as of 09/01/2023) Active Problems Problem Noted Date Diagnosed Date Acquired hypothyroidism 08/31/2023 History of compression fracture of spine 023 AICD (automatic cardioverter/defibrillator) pres ent 02/10/2013 Heart failure, systolic, due to CAD 01/06/2013 Ischemic cardiomyopathy 01/06/2013 Atrial fibrillation 01/06/2013 CAD (coronary artery disease) 07/25/2012 documented as of this encounter (statuses as of 09/01/2023) Resolved Problems Problem Noted Date Diagnosed Date Resolved Date Myocardial infarction 07/25/20122022 documented as of this encounter (statuses as of 09/01/2023) Immunizations Name Administration Dates Next Due COVID-19 mRNA, LNP-s, No Pre serve, 2-Dose Series (Moderna) 04/14/2022,09/09/2021,01/21/2021,2020 DTaP Dipth/Tet/Acell Pertussis (Infanrix), Peds 07/29/2017 Seasonal Influenza, Quadriva lent Hd (Fluzone Hd) 08/09/2023 Seasonal Influenza, Quadriva lent Hd, 65+ Yrs 08/11/2022,08/05/2021 Seasonal Influenza, Split, I IV3, With Preserve, Inj 07/29/2017,08/08/2012 TDAP (age 10 and older)(Boostrix) 07/29/2017 documented as of this encounter Social History Tobacco Use Types Packs/Day Years Used Date Smoking Tobacco: Former Cigarettes 1 45 Q uit: 03/27/1995 Pipe Smokeless Tobacco: Never Alcohol Use Standard Drinks/Week Comments Not Currently 0 (1 standard drink = 0.6 oz pur e alcohol) occasionally Sex and Gender Information Value Date Recorded Sex Assigned at Male 08/31/2023 10:00 AM EDT Gender Identity Male 08/31/2023 10:00 AM EDT Sexual Orientation Straight 08/31/2023 10 :00 AM EDT Job Start Date Occupation Industry Not on file Not on file Not on file documented as of this encounter Miscellaneous Notes * Telephone Encounter - Nasra Barrios CMA - 09/01/2023 2:39 PM EDT Letter mailed. * Telephone Encounter - Nasra Barrios CMA - 09/01/2023 2:37 PM EDT ----- Message from Wilmar Lay PA-C sent at 08/31/2023 7:38 PM EDT ----- ok * Telephone Encounter - Nasra Barrios CMA - 08/31/2023 4:03 PM EDT ----- Message from Wilmar Lay PA-C sent at 08/31/2023 2:14 PM EDT ----- Stable documented in this encounter Plan of Treatment Upcoming Encounters Date Type Department Care Team (Late st Contact Info) Description 10/11/2023 11:30 AM EST Anticoagulation Pharmacy, [facility] [address] [place] [address] Pharmacist1, [facility] [address] [place] [address] 02/18/2024 1:00 PM EDT Office Visit Cardiology, [facility] [address] [facility] [facility] [place] [address] Wilmar Lay PA-C [address] [place] [address] 03/07/2024 3:00 PM EDT Office Visit General Internal Medicine [facility] [place] [address] [place] [address] Aftab Perla MD [address] [facility] [place] [address] 03/31/2024 11:00 AM EDT Cardiac Studies Cardiology, [facility] [address] [place] [address] [facility] [address] [place] [address] 09/29/2024 9:00 AM EST Office Visit Neurology [employer] [address] [place] [address] Clifton Bey, DO [address] [place] [address] Health Maintenance Due Date Last Done Comments Pneumococcal Vaccine: 65+ Years (1 - PCV) 1941 COVID-19 Vaccine (6 - 2022- season) 2023 09/29/2022, 04/14/2022, 09/09/2021, Additional history exists DIG LEVEL FOR MEDICATION MONITORING YEARLY 08/31/2024 08/31/2023, 06/12/2022, 01/27/2022, Additional history exists Depression Screening 08/31/2024 08/31/2023 TSH 08/31/2024 08/31/2023, /03/2023, 12/29/2022, Additional history exists DTaP,Tdap,and Td Vaccines (3 - Td or Tdap) 07/29/2027 07/29/2017, 07/29/2017 Zoster Vaccines Completed 01/28/2019, 11/06/2018 Influenza Vaccine (FLU shot) Completed 07/2023, 08/11/2022, 08/05/2021, Additional history exists GARDASIL-HPV IMMUNIZATION SERIES Aged Out No longer eligible based on patient's age to complete this topic Hepatitis B Aged Out No longer eligi ble based on patient's age to complete this topic MENINGOCOCCAL (MENACTRA/MENVEO) Aged Out No longer eligible based on patient's age to complete this topic documented as of this encounter Medical Devices Not on filedocumented as of this encounter Care Teams Credit Reference Clerk Relationship Specialty Start Date End Date Aftab Perla MD [address] [place] [address] [address] PCP - General Internal Medicine 08/09/23 documented as of this encounter
--- OUTSIDE RECORDS SUMMARY | 2023-09-08 00:35 | External Medical Summary | Summary of Care ---
Author Name Unknown Organization [facility] Address [address] [facility] [place] [address] Phone [phone] Care Team Providers Care Electric Serviceman Name Role Phone Aftab Perla MD Primary Care Provider + Reason for Visit * Reason Comments Dosage Adjustment In Person (Anticoag Cl inic) Encounter Details Date Type Department Care Team (Latest Contact Info) Description 08/31/2023 10:50 AM EDT Anticoagulation Pharmacy, [facility] [address] [place] [address] Pharmacist1, [facility] [address] [facility] [place] [address] Permanent atrial fibrillation (HCC)*; Myocardial infarction, unspecified MA type, unspecified artery (HCC); Atrial fibrillation, unspecified type (HCC); Anticoagulation management encounter; retirement 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 therapy Allergies No known active allergiesdocumented as of this encounter (statuses as of 08/31/2023) Medications Medication Sig Dispensed Refills Start Date End Date Status VITAMIN D 2000 UNITS PO TABS one tablet daily 0 Activ e nitroglycerin (NITROSTAT) 0.4 MG SUBLIndications:Cor onary artery disease involving [place] coronary artery of [place] heart without angina pectoris,Myocardial infarction involving other [...] (automatic cardioverter/defibr illator) present,Coronary artery disease of [place] artery of [place] heart with stable angina pectoris (HCC) Take [...] Oral Tablet (Lanoxin)Indication s:Coronary artery disease involving [place] coronary artery of [place] heart without angina pectoris,Chronic atrial fibrillation (HCC) TAKE 1 TABLET BY MOUTH ON WEDNESDAY, WEDNESDAY AND WEDNESDAY 30 Tablet 3 08/16/2023 Active Ipratropium [place] 0.03 % Nasal Solution (Atrovent)Indicatio ns:Post-nasal drip Administer 2 Sprays into each nostril 2 times a day as needed for Rhinitis. for runny nose 30 mL 1 08/31/2023 Active documented as of this encounter (statuses as of 08/31/2023) Active Problems Problem Noted Date Diagnosed Date Acquired hypothyroidism 08/31/2023 History of compression fracture of spine 023 AICD (automatic cardioverter/defibrillator) pres ent 02/10/2013 Heart failure, systolic, due to CAD 01/06/2013 Ischemic cardiomyopathy 01/06/2013 Atrial fibrillation 01/06/2013 CAD (coronary artery disease) 07/25/2012 documented as of this encounter (statuses as of 08/31/2023) Resolved Problems Problem Noted Date Diagnosed Date Resolved Date Myocardial infarction 07/25/20122022 documented as of this encounter (statuses as of 08/31/2023) Immunizations Name Administration Dates Next Due COVID-19 [...] on file documented as of this encounter Progress Notes * Anibal Mcfarland RPh - 08/31/2023 10:39 AM EDT Medication Therapy Disease Management - Anticoagulation Lucian Larson Jr. 1935 Patient Findings Negatives: Signs/symptoms of thrombosis, Signs/symptoms of bleeding, Change in health, Change in alcohol use, Change in activity, Upcoming invasive procedure, Missed doses, Extra doses, Change in medications, Change in diet/appetite, Bruising INR Result As of 08/31/2023 INR goal: 2.0-3.0 INR used for dosin.6 (08/31/2023) Warfarin Plan As of 08/31/2023 Full warfarin instructions: 5 mg every Wed, Wed, Wed; 2.5 mg all other days Next INR check: 10/11/2023 Repeat PT/INR in 6 week(s) Weekly dose: not changed Anibal Caceres RPh, CACP, CDE Clinical Pharmacist Medication Therapy Management [facility] 08/31/2023 11:01 AM documented in this encounter Plan of Treatment Upcoming Encounters Date Type Department Care Team (Late st Contact Info) Description 10/11/2023 11:30 AM EST Anticoagulation Pharmacy, [facility] [address] [place] [address] Pharmacist1, [facility] [address] [place] [address] 02/18/2024 1:00 PM EDT Office Visit Cardiology, [facility] [address] [place] [address] Wilmar Lay PA-C [address] [place] [address] 03/07/2024 3:00 PM EDT Office Visit General Internal Medicine [facility] [address] [place] [address] Aftab Perla MD [address] [place] [address] 03/31/2024 11:00 AM EDT Cardiac Studies Cardiology, [facility] [address] [place] [address] [facility] [address] [place] [address] 09/29/2024 9:00 AM EST Office Visit Neurology [facility] [place] [address] [place] [id number] Clifton Bey, DO [address] [place] [address] Health Maintenance Due Date Last Done Comments Pneumococcal Vaccine: 65+ Years (1 - PCV) 1941 DIG LEVEL FOR MEDICATION MONITORING YEARLY 06/12/2023 06/12/2022, 01/27/2022, 10/06/2021, Additional history exists COVID-19 Vaccine (2022- season) 2023 09/29/2022, 04/14/2022, 09/09/2021, Additional history exists TSH 02/24/2024 02/23/2023, 12/03, 10/28/2022, Additional history exists Depression Screening 08/31/2024 08/31/2023 DTaP,Tdap,and Td Vaccines (3 - Td or [...] Not on filedocumented as of this encounter Procedures Procedure Name Priority Date/Time Associated Diagnosis Comments INR FINGERSTICK, POINT OF CARE STAT 08/31/2023 10:41 AM EDT Myocardial infarction, unspecified MA type, unspecified artery (HCC) Atrial fibrillation, unspecified type (HCC) Anticoagulation management encounter retirement 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 therapy documented in this encounter Results * INR FINGERSTICK, POINT OF CARE (08/31/2023 10:41 AM EDT) Fingerstick INR 2.6 INR 11:28 AM EDT [facility] Blood 08/31/2023 10:4 1 AM EDT 08/31/2023 11:28 AM EDT Narrative [facility] - 08/31/2023 11:28 AM EDT Therapeutic ranges for non-operative patients: Prophylaxsis/treatment of DVT: (Range:2.0-3.0) Treatment of pulmonary embolism:(Range:2.0-3.0) Prevention of systemic embolism from: -tissue heart valves -acute myocardial infarction -valvular heart disease -atrial fibrillation (Range: 2.0-3.0) Mechanical prosthetic valves: (Range: 2.5-3.5) Anibal Caceres V, [facility] POINT OF CARE TE ST DOCKED DEVICE UNSOLICITED RESULTS [facility] [address] [place] [address] documented in this encounter Visit Diagnoses Diagnosis Permanent atrial fibrillation (HCC)- Primary Atrial fibrillation Myocardial infarction, unspecified MA type, unspecified artery (HCC) Atrial fibrillation, unspecified type (HCC) Anticoagulation management encounter Encounter for therapeutic drug monitoring retirement 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 therapy documented in this encounter Care Teams Electric Serviceman Relationship Specialty Start Date End Date Aftab Perla MD [address] [place] [address] PCP - General Internal Medicine 08/09/23 documented as of this encounter
--- OUTSIDE RECORDS SUMMARY | 2023-09-08 00:36 | External Medical Summary ---
Author Name Unknown Address Unknown Organization K09[facility] [place] [address] Laboratory Report Ordering Provider Test Date Status JENNIFER LOPEZ V 08/31/2023 10:41:29 Final Therapeutic ranges for non-o perative patients:
Prophylaxsis/treatment of DVT: (Range:2.0-3.0)
Treatment of pulmonary embolism:(Range:2.0-3.0)
Prevention of systemic embolism from:
-tissue heart valves
-acute myocardial infarction
-valvular heart disease
-atrial fibrillation
(Range: 2.0-3.0)
Mechanical prosthetic valves: (Range: 2.5-3.5) Observation Date Value Abnormality Reference (Units ) Status INR in Capillary blood by Coagulation assay 08/31/2023 10:41:29 2.6 (INR) Final Performing Location [facility] [place] [address]
--- OUTSIDE RECORDS SUMMARY | 2023-09-08 00:36 | External Medical Summary ---
Author Name Unknown Address Unknown Organization [id number]:[facility] [place] [address] Laboratory Report Ordering Provider Test Date Status ANDRÉS KEITH 08/31/2023 10:48:19 Final Observation Date Value Abnormality Reference (Units ) Status WBC, Total 08/31/2023 10:48:19 6.60 4.00-10.8 0 (K/uL) Final RBC 08/31/2023 10:48:19 3.86 4.50-5.25 (M/uL) Final Hemoglobin 08/31/2023 10:48:19 13.2 Below low normal 14 .0-16.8 (g/dL) Final HCT 08/31/2023 10:48:19 40.3 40.0-48.4 (%) Final MCV 08/31/2023 10:48:19 104.4 82.0-99.5 (fL) Final MCH 08/31/2023 10:48:19 34.2 27.0-34.0 (pg) Final MCHC 08/31/2023 10:48:19 32.8 32.0-36.0 (g/dL) Final RDW 08/31/2023 10:48:19 13.9 11.5-15.5 (%) Final Platelets 08/31/2023 10:48:19 165 140-400 (K /uL) Final MPV 08/31/2023 10:48:19 10.2 6.6-11.1 ( fL) Final Performing Location [facility] [place] [address]
--- OUTSIDE RECORDS SUMMARY | 2023-09-08 00:36 | External Medical Summary ---
Author Name Unknown Address Unknown Organization K01:[facility] [place] [address] [place] [address] Laboratory Report Ordering Provider Test Date Status ROXANA MAYA 08/31/2023 10:48:19 Final Recommended trough therapeut ic ranges:
0.5 to 0.8 for heart failure
0.5 to 1.1 for atrial fibrillation Observation Date Value Abnormality Reference (Units ) Status Digoxin 08/31/2023 10:48:19 <0.4 Below low normal 0.5 -1.1 (ng/mL) Final Performing Location [facility] [place] [address] [place] [address]
--- OUTSIDE RECORDS SUMMARY | 2023-09-08 00:36 | External Medical Summary | Summary of Care ---
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 25 Tab 11 07/21/2016 Active Coenzyme Q10 (COQ10) 200 MG CAPS Take 1 Cap by mouth daily. 0 Active Cetirizine HCl 10 MG Oral Capsule Take 1 Capsule by mouth in the morning. 0 Active Levothyroxine Sodium 75 MCG Oral Tablet (Levoxyl) Take 1 Tablet by mouth in the morning. 0 10/22/2022 Active Clopidogrel Bisulfate 75 MG Oral Tablet (pLAVix)Indicatio ns:Permanent atrial fibrillation (HCC) Take 1 tablet by mouth once daily 90 Tablet 3 12/29/2022 Active Metoprolol Succinate ER 50 MG Oral Tablet Extended Release 24 Hour (toPROL XL)Indications:At rial fibrillation, unspecified type (HCC) Take 2 in the morning , 1 1/2 in the evening 315 Tablet 3 01/07/2023 Active Furosemide 20 MG Oral Tablet (Lasix)Indication s:Heart failure, systolic, due to CAD Take 2 tablets by mouth in the morning. 180 Tablet 3 02/17/2023 Active Additional Information Patient taking differently: 20 mg Oral Daily(AM), Take 2 tablets by mouth in the morning., Reported on 08/09/2023 Warfarin Sodium 5 MG Oral Tablet (Coumadin)Indicat ions:Atrial fibrillation (HCC) TAKE 1/2 (ONE-HALF) TABLET BY MOUTH ON WEDNESDAY, WEDNESDAY AND WEDNESDAY AND 1 TABLET ALL OTHER DAYS. 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,Chronic atrial fibrillation (HCC) TAKE 1 TABLET BY MOUTH ON WEDNESDAY, WEDNESDAY AND WEDNESDAY 30 Tablet 3 08/16/2023 Active Digoxin 125 MCG Oral Tablet (Lanoxin)Indicati ons: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,Chronic atrial fibrillation (HCC) TAKE ONE TABLET BY MOUTH ON WEDNESDAY, WEDNESDAY AND WEDNESDAY 28 Tablet 11 07/01/2022 08/16/20 Discontinued documented as of this encounter (statuses as of 08/16/2023) Active Problems Problem Noted Date AICD (automatic cardioverter/defibrillat or) present 02/10/2013 Heart failure, systolic, due to CAD 06/2013 Ischemic cardiomyopathy 01/06/2013 Atrial fibrillation 01/06/2013 CAD (coronary artery disease) 07/25/2012 [place] (myocardial infarction) 07/25/2012 documented as of this encounter (statuses as of 08/16/2023) Immunizations Name Administration Dates Next Due COVID-19 mRNA, LNP-s, No Pre serve, 2-Dose Series (Moderna) 04/14/2022,09/09/2021,01/21/2021,2020 DTaP Dipth/Tet/Acell Pertussis (Infanrix), Peds 07/29/2017 Seasonal Influenza, Quadriva lent Hd (Fluzone Hd) 08/09/2023 Seasonal Influenza, Quadriva lent Hd, 65+ Yrs 08/11/2022,08/05/2021 Seasonal Influenza, Split, I IV3, With Preserve, Inj 07/29/2017,08/08/2012 documented as of this encounter Social History Tobacco Use Types Packs/Day Years Used Date Smoking Tobacco: Former Cigarettes 1 45 Q uit: 03/27/1995 Pipe Smokeless Tobacco: Never Alcohol Use Standard Drinks/Week Comments Yes 0 (1 standard drink = 0.6 oz pur e alcohol) occasionally Sex Assigned at Date Recorded Not on file Job Start Date Occupation Industry Not on file Not on file Not on file documented as of this encounter Miscellaneous Notes * Telephone Encounter - Zulma Lay PA-C - 08/16/2023 2:00 PM EDTSigned Prescriptions: Disp Refills Digoxin 125 MCG Oral Tablet (Lanoxin) 30 Tab*3 Sig: TAKE 1 TABLET BY MOUTH ON WEDNESDAY, WEDNESDAY AND WEDNESDAY Authorizing Provider: ZULMA LAY * Telephone Encounter - Nasra Barrios CMA - 08/16/2023 1:22 PM EDTPending Prescriptions: Disp Refills Digoxin 125 MCG Oral Tablet (Lanoxin) 30 Tab*3 Sig: TAKE 1 TABLET BY MOUTH ON WEDNESDAY, WEDNESDAY AND WEDNESDAY * Telephone Encounter - Nasra Barrios CMA - 08/16/2023 1:21 PM EDT Did you pend patient's preferred pharmacy and medication before forwarding?yes [facility] [id number] [address] [place] Pending Prescriptions: Disp Refills Digoxin 125 MCG Oral Tablet (Lanoxin) [Ph*30 Tab*3 Sig: TAKE 1 TABLET BY MOUTH ON WEDNESDAY, WEDNESDAY AND WEDNESDAY Last Visit: 08/09/2023 (in office), Visit date not found (telemedicine) Next Visit: 02/18/2024 If no future appointments scheduled, and last appointment is greater than a year ago, please schedule patient for a follow-up appointment Last date the medication was ordered: Is this request for a controlled substance?No Urine Drug Screen:No results found for this or any previous visit. Patient Phone Numbers Labs: Lab Results Component Value Date/Time CREAT 1.3 (H) 10/28/2022 03:16 PM CREAT 1.4 (H) 07/23/2020 11:28 AM POTASSIUM 4.4 11/05/2022 10:58 AM POTASSIUM 4.4 07/23/2020 11:28 AM TSH 3.75 12/29/2022 10:53 AM TSH 4.50 (H) 07/23/2020 11:28 AM LDLCALC 67 02/07/2021 11:35 AM LDLCALC 68 01/11/2018 11:41 AM LDLDIRECT 58 06/12/2022 11:41 AM LDLDIRECT 72 05/24/2019 01:32 PM ALT 13 06/12/2022 11:41 AM ALT 20 07/23/2020 11:28 AM HGBA1C 5.7 (H) 06/12/2022 11:41 AM HGBA1C 5.4 06/30/2016 10:59 AM documented in this encounter Plan of Treatment Upcoming Encounters Date Type Specialty Care Team Description 08/31/2023 Office Visit Internal Medicine Aftab Perla MD [address] [place] [address] 08/31/2023 Anticoagulation Pharmacy Pharmacist, [facility] [address] [facility] [place] [address] 02/18/2024 Office Visit Cardiology Zulma Lay PA-C [address] [place] [address] 03/31/2024 Cardiac Studies Cardiology [facility] [address] [place] [address] Health Maintenance Due Date Last Done Comments Pneumococcal Vaccine: 65+ Years (1 - PCV) 1941 Depression Screening 1947 DIG LEVEL FOR MEDICATION MONITORING YEARLY 06/12/2023 06/12/2022, 01/27/2022, 10/06/2021, Additional history exists COVID-19 Vaccine ( - 2022- season) 2023 09/29/2022, 04/14/2022, 09/09/2021, Additional history exists TSH 12/29/2023 12/29/2022, 10/02, 06/12/2022, Additional history exists DTaP,Tdap,and Td Vaccines (2 - Tdap) 07/29/2027 07/29/2017 Zoster Vaccines Completed 01/28/2019, 11/06/2018 Influenza [...] Not on filedocumented as of this encounter Visit Diagnoses Diagnosis 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
--- OUTSIDE RECORDS SUMMARY | 2023-09-08 00:36 | External Medical Summary ---
Author Name Unknown Address Unknown Organization K01:[facility] [place] [address] [place] [address] Laboratory Report Ordering Provider Test Date Status ANDRÉS KEITH 08/31/2023 10:48:19 Final Observation Date Value Abnormality Reference (Units ) Status Reagin Ab [Presence] in Serum by RPR 08/31/2023 10:48:19 Nonreactive Nonreactive Final Performing Location [facility] [place] [address] [place] [address]
--- OUTSIDE RECORDS SUMMARY | 2023-09-08 00:36 | External Medical Summary | Summary of Care ---
Author Name Unknown Organization [facility] Address [address] [facility] [place] [address] Phone [phone] Care Team Providers Care Business Process Engineer Name Role Phone Hank Oshea MD Primary Care Provider Reason for Visit * Reason Comments Dosage Adjustment In Person (Anticoag Cl inic) Encounter Details Date Type Department Care Team Description 06/01/2023 Anticoagulation Pharmacy, [facility] [address] [place] [address] Pharmacist1, [facility] [address] [facility] [place] [address] [place] (myocardial infarction) (HCC)*; Chronic atrial fibrillation (HCC); Myocardial infarction, unspecified [place] type, unspecified artery (HCC); Atrial fibrillation, unspecified type (HCC); Anticoagulation management encounter; USP 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 therapy Allergies No known active allergiesdocumented as of this encounter (statuses as of 06/01/2023) Medications Medication Sig Dispensed Refills Start Date End Date Status VITAMIN D 2000 UNITS PO TABS one tablet daily 0 Active nitroglycerin (NITROSTAT) 0.4 MG SUBLIndications:Salo nary artery disease involving three affiliated coronary artery of three affiliated heart without angina pectoris,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 25 Tab 11 07/21/2016 Active Coenzyme Q10 (COQ10) 200 MG CAPS Take 1 Cap by mouth daily. 0 Active Cetirizine HCl 10 MG Oral Capsule Take 1 Capsule by mouth in the morning. 0 Active Digoxin 125 MCG Oral Tablet (Lanoxin)Indications :Coronary artery disease involving three affiliated coronary artery of three affiliated heart without angina pectoris,Chronic atrial fibrillation (HCC) TAKE ONE TABLET BY MOUTH ON WEDNESDAY, WEDNESDAY AND WEDNESDAY 28 Tablet 11 07/01/2022 Active Entresto 24-26 MG Oral Tablet (sacubitril-valsarta n 24-26 mg per tab)Indications:Isch emic cardiomyopathy,Heart failure, systolic, due to CAD (HCC) Take 1/2 tab each am and pm 90 Tablet 3 09/07/2022 Active Levothyroxine Sodium 75 MCG Oral Tablet (Levoxyl) Take 1 Tablet by mouth in the morning. 0 10/22/2022 Active Clopidogrel Bisulfate 75 MG Oral Tablet (pLAVix)Indications: Permanent atrial fibrillation (HCC) Take 1 tablet by mouth once daily 90 Tablet 3 12/29/2022 Active Metoprolol Succinate ER 50 MG Oral Tablet Extended Release 24 Hour (toPROL XL)Indications:Atria l fibrillation, unspecified type (HCC) Take 2 in the morning , 1 1/2 in the evening 315 Tablet 3 01/07/2023 Active Furosemide 20 MG Oral Tablet (Lasix)Indications:H eart failure, systolic, due to CAD (HCC) Take 2 tablets by mouth in the morning. 180 Tablet 3 02/17/2023 Active Warfarin Sodium 5 MG Oral Tablet (Coumadin)Indication s:Atrial fibrillation (HCC) TAKE 1/2 (ONE-HALF) TABLET BY MOUTH ON WEDNESDAY, WEDNESDAY AND WEDNESDAY AND 1 TABLET ALL OTHER DAYS. 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 TAKE 1 TABLET BY MOUTH ON WEDNESDAY, WEDNESDAY AND WEDNESDAY 39 Tablet 3 05/14/2023 Active documented as of this encounter (statuses as of 06/01/2023) Active Problems Problem Noted Date AICD (automatic cardioverter/defibrillat or) present 02/10/2013 Heart failure, systolic, due to CAD 06/2013 Ischemic cardiomyopathy 01/06/2013 Atrial fibrillation 01/06/2013 CAD (coronary artery disease) 07/25/2012 [place] (myocardial infarction) 07/25/2012 documented as of this encounter (statuses as of 06/01/2023) Immunizations Name Administration Dates Next Due COVID-19 mRNA, LNP-s, No Pre serve, 2-Dose Series (Moderna) 04/14/2022,09/09/2021,01/21/2021,2020 DTaP - Dipth/Tet/Acell Pertussis 07/29/2017 Seasonal Influenza, Quadriva lent Hd, 65+ Yrs [...] of this encounter Progress Notes * Anibal Raymundo RPh - 06/01/2023 2:50 PM EDT [phone] ([place]) Agree with plan as documented. Anibal Caceres RPh, CACP, CDE Clinical Pharmacist Medication Therapy [facility] 06/01/2023 2:50 PM * Annie Banks, PHARM Student - 06/01/2023 2:13 PM EDT Images from the original note were not included. Medication Therapy Disease Management - Anticoagulation Patient: Lucian Reynolds Neo Navarro. | : 1935 Subjective Patient-Reported Symptoms: Patient Findings Negatives: Signs/symptoms of thrombosis, Signs/symptoms of bleeding, Change in health, Change in alcohol use, Change in activity, Upcoming invasive procedure, Missed doses, Extra doses, Change in medications, Change in diet/appetite, Bruising Objective Current Warfarin Dose As of 06/01/2023 Warfarin maintenance plan: 2.5 mg (5 mg x 0.5) every Mon, Wed, Fri; 5 mg (5 mg x 1) all other days INR Result As of 06/01/2023 INR goal: 2.0-3.0 INR used for dosin.5 (06/01/2023) Assessment & Plan Warfarin Plan As of 06/01/2023 Full warfarin instructions: 06/01: Hold; Otherwise 2.5 mg every Mon, Wed, Fri; 5 mg all other days Next INR check: 07/06/2023 Repeat PT/INR in 5 week(s) Weekly dose: not changed Additional Dosing Information: Annie Banks, PHARM Student Clinical Pharmacist 06/01/2023, 2:13 PM documented in this encounter Plan of Treatment Upcoming Encounters Date Type Specialty Care Team Description 07/06/2023 Anticoagulation Pharmacy Pharmacist1, [facility] [address] [place] [address] 08/23/2023 Office Visit Cardiology Wilmar Lay PA-C [address] [place] [address] 08/31/2023 Office Visit Internal Medicine Aftab Perla MD [address] [facility] [place] [address] 03/31/2024 Cardiac Studies [facility] [address] [place] [address] Health Maintenance Due Date Last Done Comments Pneumococcal Vaccine: 65+ Years (1 - PCV) 1941 Depression Screening, Annual for Pts 12 and Over 1947 DIG LEVEL FOR MEDICATION MONITORING YEARLY 06/12/2023 06/12/2022, 01/27/2022, 10/06/2021, Additional history exists Influenza Vaccine (FLU shot) (#1) 2023 08/11/2022, 08/05/2021, 07/16/2020, Additional history exists TSH 12/29/2023 12/29/2022, 10/02, 06/12/2022, Additional history exists DTaP,Tdap,and Td Vaccines (2 - Tdap) 07/29/2027 07/29/2017 Zoster Vaccines Completed 01/28/2019, 11/06/2018 COVID-19 Vaccine Completed 09/29/2022, , 09/09/2021, Additional history exists GARDASIL-HPV IMMUNIZATION SERIES Aged [...] Comments INR FINGERSTICK, POINT OF CARE STAT 06/01/2023 2:18 PM EDT Myocardial infarction, unspecified [place] type, unspecified artery (HCC) Atrial fibrillation, unspecified type (HCC) Anticoagulation management encounter vermin exterminator 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 therapy documented in this encounter Results * INR FINGERSTICK, POINT OF CARE (06/01/2023 2:18 PM EDT) Fingerstick INR 3.5 INR 2:28 PM EDT [facility] Blood 06/01/2023 2:18 PM EDT 06/01/2023 2:28 PM EDT Narrative [facility] - 06/01/2023 2:28 PM EDT Therapeutic ranges for non-operative patients: Prophylaxsis/treatment of DVT: (Range:2.0-3.0) Treatment of pulmonary embolism:(Range:2.0-3.0) Prevention of systemic embolism from: -tissue heart valves -acute myocardial infarction -valvular heart disease -atrial fibrillation (Range: 2.0-3.0) Mechanical prosthetic valves: (Range: 2.5-3.5) Anibal Raymundo RPh LAB POINT OF CARE TE ST DOCKED DEVICE UNSOLICITED RESULTS [facility] [address] [place] [address] documented in this encounter Visit Diagnoses Diagnosis [place] (myocardial infarction) (HCC)- Primary Acute myocardial infarction, unspecified site, episode of care unspecified Chronic atrial fibrillation (HCC) Atrial fibrillation Myocardial infarction, unspecified [place] type, unspecified artery (HCC) Atrial fibrillation, unspecified type (HCC) Anticoagulation management encounter Encounter for therapeutic drug monitoring USP 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 therapy documented in this encounter Care Teams Business Process Engineer Relationship Specialty Start Date End Date Hank Oshea MD [address] [address] PCP - General Internal Medicine 08/13/14 documented as of this encounter"
--- OUTSIDE RECORDS SUMMARY | 2023-09-08 00:36 | External Medical Summary | Summary of Care ---
Author Name Unknown Organization [facility] Address [address] [facility] [address] Phone [phone] Care Team Providers Care Senior Merchandiser Name Role Phone Aftab Perla MD Primary Care Provider + Encounter Details Date Type Department Care Team (Late st Contact Info) Description 08/31/2023 Orders Only General Internal Medicine [facility] [address] [facility] [place] [id number] Aftab Perla MD [facility] [address] Allergies No known active allergiesdocumented as of this encounter (statuses as of 08/31/2023) Medications Medication Sig Dispensed Refills Start Date End Date Status VITAMIN D 2000 UNITS PO TABS one tablet daily 0 Activ e nitroglycerin (NITROSTAT) 0.4 MG SUBLIndications:Cor onary artery disease involving [place] coronary artery of [place] heart without angina pectoris,Myocardial infarction involving other [...] (automatic cardioverter/defibr illator) present,Coronary artery disease of [place] artery of [place] heart with stable angina pectoris (HCC) Take [...] Oral Tablet (Lanoxin)Indication s:Coronary artery disease involving [place] coronary artery of [place] heart without angina pectoris,Chronic atrial fibrillation (HCC) TAKE 1 TABLET BY MOUTH ON WEDNESDAY, WEDNESDAY AND WEDNESDAY 30 Tablet 3 08/16/2023 Active documented as of this encounter (statuses as of 08/31/2023) Active Problems Problem Noted Date Diagnosed Date AICD (automatic cardioverter/defibrillator) pres ent 02/10/2013 Heart failure, systolic, due to CAD 01/06/2013 Ischemic cardiomyopathy 01/06/2013 Atrial fibrillation 01/06/2013 CAD (coronary artery disease) 07/25/2012 [place] (myocardial infarction) 07/25/2012 documented as of this [...] Information Value Date Recorded Sex Assigned at Not on file Gender Identity Not on file Sexual Orientation Not on file Job Start Date Occupation Industry Not on file Not on file Not on file documented as of this encounter Plan of Treatment Upcoming Encounters Date Type Department Care Team (Late st Contact Info) Description 08/31/2023 10:00 AM EDT Office Visit General Internal Medicine [facility] [address] [place] [address] Aftab Perla MD [address] [facility] [place] [address] 08/31/2023 10:50 AM EDT Anticoagulation Pharmacy, [facility] [place] [address] [place] [address] Pharmacist1, [facility] [address] [place] [address] 02/18/2024 1:00 PM EDT Office Visit Cardiology, [facility] [address] [place] [address] Wilmar Lay, PA-C [address] [place] [address] 03/31/2024 11:00 AM EDT Cardiac Studies Cardiology, [facility] [address] [place] [address] [place] [address] [place] [address] Health Maintenance Due Date Last Done Comments Pneumococcal Vaccine: 65+ Years (1 - PCV) 1941 Depression Screening 1947 DIG LEVEL FOR MEDICATION MONITORING YEARLY 06/12/2023 06/12/2022, 01/27/2022, 10/06/2021, Additional history exists COVID-19 Vaccine (2022- season) 2023 09/29/2022, 04/14/2022, 09/09/2021, Additional history exists TSH 12/29/2023 02/23/2023, 12/03, 10/28/2022, Additional history exists DTaP,Tdap,and Td Vaccines (2 [...] Procedure Name Priority Date/Time Associated Diagnosis Comments CHEMISTRY-OUTSIDE Routine 02/23/2023 TSH Routine 02/23/2023 XR CHEST 2 VIEWS Routine 08/15/2018 XR CHEST 2 VIEWS Routine 07/20/2018 XR CHEST 1 VIEW Routine 07/11/2018 XR CHEST 1 VIEW Routine 03/26/2018 XR CHEST 1 VIEW Routine 10/20/2016 documented in this encounter Results * (ABNORMAL) TSH (02/23/2023) TSH - OUTSIDE LAB 5.547(A) 0.300 - 4.500 UIU/ML OUTSIDE LAB (SEE SCANNED REPORT) Blood Venous blood specimen / Unknown 02/23/2023 Hank Oshea MD LAB BLOOD ORDERABLES OUTSIDE LAB (SEE SCANNED REPORT) * (ABNORMAL) CHEMISTRY-OUTSIDE (02/23/2023) Not all results display below - see scan for full detail OUTSIDE LAB (SEE SCANNED REPORT) Comment:SEE SCAN - CBC,CHEM, A1C,BILIRUBIN,TP,LIPID,TSH CREATININE-OUTSID E LAB 1.31 0.6 - 1.4 MG/DL OUTSIDE LAB (SEE SCANNED REPORT) EGFR-OUTSIDE LAB 48.3 ML/MIN OUT SIDE LAB (SEE SCANNED REPORT) POTASSIUM-OUTSIDE LAB 4.8 3.5 - 5.1 MMOL/L OUTSIDE LAB (SEE SCANNED REPORT) GLUCOSE-OUTSIDE LAB 96 70 - 99 MG/DL OUTSIDE LAB (SEE SCANNED REPORT) HOURS FASTING OUTSID E LAB (SEE SCANNED REPORT) TRIGLYCERIDES-OUT SIDE LAB 84 0 - 150 MG/DL OUTSIDE LAB (SEE SCANNED REPORT) CHOLESTEROL-OUTSI DE LAB 128 0 - 200 MG/DL OUTSIDE LAB (SEE SCANNED REPORT) HDL-OUTSIDE LAB 53 40 - 60 MG/DL OUTSIDE LAB (SEE SCANNED REPORT) CHOL/HDL RATIO-OUTSIDE LAB 2.4 0 - 5 OUTSIDE LA B (SEE SCANNED REPORT) LDL (CALCULATED)-OUTS ROMULO LAB 68 <100 MG/DL OUTSIDE LAB (SEE SCANNED REPORT) LDL (DIRECT MEASURE)-OUTSIDE LAB OUTSIDE LAB (SEE SCANNED REPORT) HEMOGLOBIN, M7Z-HEJUPTH LAB 5.9(A) 4.5 - 5.6 % OUTSIDE LAB (SEE SCANNED REPORT) PHOSPHORUS-OUTSID E LAB OUTSIDE LAB (SEE SCANNED REPORT) PTH-OUTSIDE LAB OUTS ROMULO LAB (SEE SCANNED REPORT) MICROALBUMIN RATIO-OUTSIDE LAB OUTSIDE LA B (SEE SCANNED REPORT) PROTEIN, UA-OUTSIDE LAB OUTSIDE LAB (SEE SCANNED REPORT) HEMOGLOBIN-OUTSID E LAB 14.1 14.0 - 18.0 G/DL OUTSIDE LAB (SEE SCANNED REPORT) 02/23/2023 Hank Oshea MD LABORATORY OUTSIDE LAB (SEE SCANNED REPORT) * XR CHEST 2 VIEWS (08/15/2018) Anatomical Region Laterality Modality Chest Other 08/15/2018 Hank Oshea MD RADIOLOGY (RAD GENER AL) * XR CHEST 2 VIEWS (07/20/2018) Anatomical Region Laterality Modality Chest Other 07/20/2018 Hank Oshea MD RADIOLOGY (RAD GENER AL) * XR CHEST 1 VIEW (07/11/2018) Anatomical Region Laterality Modality Chest Other 07/11/2018 Akilah Coppola MD RADIOLOGY ( RAD GENERAL) * XR CHEST 1 VIEW (03/26/2018) Anatomical Region Laterality Modality Chest Other 03/26/2018 Hemant Jo DO RADIOLOGY (RAD GE NERAL) * XR CHEST 1 VIEW (10/20/2016) Anatomical Region Laterality Modality Chest Other 10/20/2016 Oracio Chan Jr., MD RADIOLOG Y (RAD GENERAL) documented in this encounter Care Teams Senior Merchandiser Relationship Specialty Start Date End Date Aftab Perla MD [address] [place] [address] PCP - General Internal Medicine 08/09/23 documented as of this encounter
--- OUTSIDE RECORDS SUMMARY | 2023-09-08 00:36 | External Medical Summary | Summary of Care ---
Author Name Unknown Organization [facility] Address [address] [facility] [place] [address] Phone [phone] Care Team Providers Care Animal Assistant Name Role Phone Hank Oshae MD Primary Care Provider [phone] Encounter Details Date Type Department Care Team Description 08/06/2023 Result Scan Unspecified Department Denis Langston MD [address] [place], [place] [phone] <No scans attached> Allergies No known active allergiesdocumented as of this encounter (statuses as of 08/06/2023) Medications Medication Sig Dispensed Refills Start Date End Date Status VITAMIN D 2000 UNITS PO TABS one tablet daily 0 Active nitroglycerin (NITROSTAT) 0.4 MG SUBLIndications:Salo nary artery disease involving [place] coronary artery of [place] heart without angina pectoris,Myocardial infarction involving other [...] Oral Tablet (Lanoxin)Indications :Coronary artery disease involving [place] coronary artery of [place] heart without angina pectoris,Chronic atrial fibrillation (HCC) TAKE ONE TABLET BY MOUTH ON WEDNESDAY, WEDNESDAY AND WEDNESDAY 28 Tablet 11 07/01/2022 Active Entresto 24-26 MG Oral Tablet (sacubitril-valsarta n 24-26 mg per tab)Indications:Isch emic cardiomyopathy,Heart failure, systolic, due to CAD Take 1/2 [...] (Lasix)Indications:H eart failure, systolic, due to CAD Take 2 tablets by mouth in the morning. 180 Tablet 3 02/17/2023 Active Warfarin Sodium 5 MG Oral Tablet (Coumadin)Indication s:Atrial fibrillation (HCC) TAKE 1/2 (ONE-HALF) TABLET BY MOUTH ON WEDNESDAY, WEDNESDAY AND WEDNESDAY AND 1 TABLET ALL OTHER DAYS. 70 Tablet 3 03/08/2023 Active Rosuvastatin Calcium 5 MG Oral Tablet (Crestor)Indications :Heart failure, systolic, due to CAD,Ischemic cardiomyopathy,AICD (automatic cardioverter/defibri llator) present,Coronary artery disease of [place] artery of [place] heart with stable angina pectoris (HCC) Take 1 Tablet by mouth once a day on Wednesday, Wednesday, and Wednesday only. TAKE 1 TABLET BY MOUTH ON WEDNESDAY, WEDNESDAY AND WEDNESDAY 39 Tablet 3 05/14/2023 Active documented as of this encounter (statuses as of 08/06/2023) Active Problems Problem Noted Date AICD (automatic cardioverter/defibrillat or) present 02/10/2013 Heart failure, systolic, due to CAD 06/2013 Ischemic cardiomyopathy 01/06/2013 Atrial fibrillation 01/06/2013 CAD (coronary artery disease) 07/25/2012 [place] (myocardial infarction) 07/25/2012 documented as of this encounter (statuses as of 08/06/2023) Immunizations Name Administration Dates Next Due COVID-19 mRNA, LNP-s, No Pre serve, 2-Dose Series (Moderna) 04/14/2022,09/09/2021,01/21/2021,2020 DTaP Dipth/Tet/Acell Pertussis (Infanrix), Peds 07/29/2017 Seasonal Influenza, Quadriva kena Hd, 65+ Yrs 08/11/2022,08/05/2021 Seasonal Influenza, Split, [...] Encounters Date Type Specialty Care Team Description 08/09/2023 Office Visit Cardiology Wilmar Lay PA-C [address] [place] [phone] 08/31/2023 Office Visit Internal Medicine [facility] [address] 08/31/2023 [facility] Pharmac[facility], [facility] [address] 03/31/2024 Cardiac Studies Cardiology [facility] [address] [place] [address] Health Maintenance Due Date Last Done Comments Pneumococcal Vaccine: 65+ Years (1 - PCV) 1941 Depression Screening 1947 DIG LEVEL FOR MEDICATION MONITORING YEARLY 06/12/2023 06/12/2022, 01/27/2022, 10/06/2021, Additional history exists COVID-19 Vaccine (2022- season) 2023 09/29/2022, 04/14/2022, 09/09/2021, Additional history exists Influenza Vaccine (FLU shot) (#1) 2023 08/11/2022, 08/05/2021, 07/16/2020, Additional history exists TSH 12/29/2023 12/29/2022, 10/02, 06/12/2022, Additional history exists DTaP,Tdap,and Td Vaccines (2 - Tdap) 07/29/2027 07/29/2017 Zoster Vaccines Completed 01/28/2019, 11/06/2018 GARDASIL-HPV IMMUNIZATION SERIES Aged Out No longer [...] Procedure Name Priority Date/Time Associated Diagnosis Comments CARDIOLOGY SCANNED RESULT 08/06/2023 documented in this encounter Results * CARDIOLOGY SCANNED RESULT (08/06/2023) 08/06/2023 Denis Langston MD OTHER documented in this encounter Care Teams Animal Assistant Relationship Specialty Start Date End Date Hank Oshea MD [address] [address] PCP - General Internal Medicine 08/13/14 documented as of this encounter
--- OUTSIDE RECORDS SUMMARY | 2023-09-08 00:36 | External Medical Summary ---
Author Name Unknown Address Unknown Organization [id number]:LABORATORY [facility] - [address] [place] [address] Laboratory Report Ordering Provider Test Date Status ROXANA MAYA 08/31/2023 10:48:19 Final Observation Date Value Abnormality Reference (Units ) Status TSH 08/31/2023 10:48:19 5.37 Above high normal 0. 27-4.20 (uIU/mL) Final Performing Location LABORATORY [facility] - [address] [place] [address]
--- OUTSIDE RECORDS SUMMARY | 2023-09-08 00:36 | External Medical Summary | Summary of Care ---
Author Name Unknown Organization [facility] Address [address] [facility] [place] [address] Phone [phone] Care Team Providers Care Imposer Name Role Phone Hank Oshea MD Primary Care Provider Reason for Visit * Reason Comments Dosage Adjustment In Person (Anticoag Cl inic) Encounter Details Date Type Department Care Team Description 07/06/2023 Anticoagulation Pharmacy, [facility] 200 [facility] [place] [address] Pharmacist1, [facility] 200 [facility] [place] [address] Myocardial infarction, unspecified [place] type, unspecified artery (HCC)*; Chronic atrial fibrillation (HCC); Atrial fibrillation, unspecified type (HCC); Anticoagulation management encounter; intermodal customer service 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 therapy Allergies No known active allergiesdocumented as of this encounter (statuses as of 07/06/2023) Medications Medication Sig Dispensed Refills Start Date End Date Status VITAMIN D 2000 UNITS PO TABS one tablet daily 0 Active nitroglycerin (NITROSTAT) 0.4 MG SUBLIndications:Salo nary artery disease involving [place] coronary artery of [place] heart without angina pectoris,Myocardial infarction involving other [...] Oral Tablet (Lanoxin)Indications :Coronary artery disease involving [place] coronary artery of [place] heart without angina pectoris,Chronic atrial fibrillation (HCC) [...] (automatic cardioverter/defibri llator) present,Coronary artery disease of [place] artery of [place] heart with stable angina pectoris (HCC) Take 1 Tablet by mouth once a day on Wednesday, Wednesday, and Wednesday only. TAKE 1 TABLET BY MOUTH ON WEDNESDAY, WEDNESDAY AND WEDNESDAY 39 Tablet 3 05/14/2023 Active documented as of this encounter (statuses as of 07/06/2023) Active Problems Problem Noted Date AICD (automatic cardioverter/defibrillat or) present 02/10/2013 Heart failure, systolic, due to CAD 06/2013 Ischemic cardiomyopathy 01/06/2013 Atrial fibrillation 01/06/2013 CAD (coronary artery disease) 07/25/2012 [place] (myocardial infarction) 07/25/2012 documented as of this encounter (statuses as of 07/06/2023) Immunizations Name Administration Dates Next Due COVID-19 [...] Progress Notes * Anibal Raymundo RPh - 07/06/2023 1:53 PM EDT Images from the original note were not included. Medication Therapy Disease Management - Anticoagulation Lucian Larson Jr. 1935 Patient Findings Negatives: Signs/symptoms of thrombosis, Signs/symptoms of bleeding, Change in health, Change in alcohol use, Change in activity, Upcoming invasive procedure, Missed doses, Extra doses, Change in medications, Change in diet/appetite, Bruising INR Result As of 07/06/2023 INR goal: 2.0-3.0 INR used for dosin.5 (07/06/2023) Warfarin Plan As of 07/06/2023 Full warfarin instructions: 07/06: Hold; Otherwise 5 mg every Wed, Wed, Wed; 2.5 mg all other days Next INR check: 08/03/2023 Repeat PT/INR in 4 week(s) Weekly dose: decreased Anibal Caceres RPh, CACP, CDE Clinical Pharmacist Medication Therapy Management Clinic 07/06/2023 1:59 PM documented in this encounter Plan of Treatment Upcoming Encounters Date Type Specialty Care Team Description 08/03/2023 Anticoagulation Pharmacy Pharmacist1, [facility] [address] [facility] [place] [place] [address] 08/23/2023 Office Visit Cardiology Wilmar Lay PA-C [address] [place] [address] 08/31/2023 Office Visit Internal Medicine Aftab Perla MD 200 [facility] [place] [address] 03/31/2024 Cardiac Studies Cardiology [facility] [address] [place] [address] Health Maintenance Due Date Last Done Comments Pneumococcal Vaccine: 65+ Years (1 - PCV) 1941 Depression Screening, Annual for Pts 12 and Over 1947 DIG LEVEL FOR MEDICATION MONITORING YEARLY 06/12/2023 06/12/2022, 01/27/2022, 10/06/2021, Additional history exists Influenza Vaccine (FLU shot) (#1) 2023 08/11/2022, 08/05/2021, 07/16/2020, Additional history exists TSH 12/29/2023 12/29/2022, 12/06/2022, 06/12/2022, Additional history exists DTaP,Tdap,and Td Vaccines [...] Comments INR FINGERSTICK, POINT OF CARE STAT 07/06/2023 1:56 PM EDT Myocardial infarction, unspecified MN type, unspecified artery (HCC) Atrial fibrillation, unspecified type (HCC) Anticoagulation management encounter intermodal customer service 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 therapy documented in this encounter Results * INR FINGERSTICK, POINT OF CARE (07/06/2023 1:56 PM EDT) Fingerstick INR 3.5 INR 1:58 PM EDT [facility] 56- Blood 07/06/2023 1:56 PM EDT 07/06/2023 1:58 PM EDT Narrative [facility] 56- - 07/06/2023 1:58 PM EDT Therapeutic ranges for non-operative patients: Prophylaxsis/treatment of DVT: (Range:2.0-3.0) Treatment of pulmonary embolism:(Range:2.0-3.0) Prevention of systemic embolism from: -tissue heart valves -acute myocardial infarction -valvular heart disease -atrial fibrillation (Range: 2.0-3.0) Mechanical prosthetic valves: (Range: 2.5-3.5) Anibal Nicki V, [facility] LAB POINT OF CARE TE ST DOCKED DEVICE UNSOLICITED RESULTS [facility] 56- [address] [place] [address] documented in this encounter Visit Diagnoses Diagnosis Myocardial infarction, unspecified [place] type, unspecified artery (HCC)- Primary Chronic atrial fibrillation (HCC) Atrial fibrillation Atrial fibrillation, unspecified type (HCC) Anticoagulation management encounter Encounter for therapeutic drug monitoring [facility] 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 therapy documented in this encounter Care Teams Imposer Relationship Specialty Start Date End Date Hank Oshea MD [address] [place] [address] PCP - General Internal Medicine 08/13/14 documented as of this encounter
--- OUTSIDE RECORDS SUMMARY | 2023-09-08 00:36 | External Medical Summary | Summary of Care ---
Author Name Unknown Organization [facility] Address [address] [place] [address] Phone [phone] Care Team Providers Care Swing Frame Grinder Operator Name Role Phone Aftab Perla MD Primary Care Provider + Reason for Referral * Evaluate & Treat - Unlimited Visits (Within 30 days (routine)) - Authorized Specialty Diagnoses / Procedures Referred By Contmarilynn t Referred To Contact Neurology Diagnoses Memory change Aftab Perla MD [address] [place] [address] Dr [facility] [id number] Referral ID Status Reason Start Date Expiration Date Visits Requested Visits Authorized [id number] Authorized Specialty Services Required 3 [phone] Question Answer Referral Priority Within 30 days (routine) Where [facility] this [facility] be scheduled[facility] NEUROLOGY REFERRAL QUESTIONS Memory/Cognition Reason for Visit * Reason Comments NEW PATIENT Patient presents to establish care today due to previous PCP retiring. Patient's is presents and states concerns for Lucian having a constant nasal drip. Patient's also states that memory has been a concern, last memory test was in January of 2023. 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)*; AICD (automatic cardioverter/defibril lator) present; Heart failure, systolic, due to CAD ; Ischemic cardiomyopathy; Permanent atrial fibrillation (HCC); History of compression fracture of spine; Memory change; Hip arthritis; Acquired hypothyroidism; Post-nasal drip Allergies No known active allergiesdocumented as of this encounter (statuses as of 08/31/2023) Medications Medication Sig Dispensed Refills Start Date End Date Status VITAMIN D 2000 UNITS PO TABS one tablet daily 0 Activ e nitroglycerin (NITROSTAT) 0.4 MG SUBLIndications:Cor onary artery disease involving wales coronary artery of wales heart without angina pectoris,Myocardial infarction involving other [...] (automatic cardioverter/defibr illator) present,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) Take [...] Oral Tablet (Lanoxin)Indication s:Coronary artery disease involving wales coronary artery of wales heart without angina pectoris,Chronic atrial fibrillation (HCC) TAKE 1 TABLET BY MOUTH ON WEDNESDAY, WEDNESDAY AND WEDNESDAY 30 Tablet 3 08/16/2023 Active Ipratropium Massena 0.03 % Nasal Solution (Atrovent)Indicatio ns:Post-nasal drip [...] on file documented as of this encounter Last Filed Vital Signs Vital Sign Reading Time Taken Comments Blood Pressure 104/60 08/31/2023 9:55 AM EDT Pulse 53 08/31/2023 9:55 AM EDT Temperature 35.7 C (96.2 F) 08/31/2023 9:55 AM ED T Respiratory Rate - - Oxygen Saturation 98% 08/31/2023 9:55 AM EDT Inhaled Oxygen Concentration - - Weight 77.5 kg (170 lb 14.4 oz) 08/31/2023 9:55 AM EDT Height 171.5 cm (5' 7.5") 08/31/2023 9:55 AM EDT Body Mass Index 26.37 08/31/2023 9:55 AM EDT documented in this encounter Progress Notes * Aftab Perla MD - 08/31/2023 10:15 AM EDT Chief Complaint Patient presents with NEW PATIENT Patient presents to establish care today due to previous PCP retiring. Patient's is presents and states concerns for Lucian having a constant nasal drip. Patient's also states that memory has been a concern, last memory test was in January of 2023. SUBJECTIVE: Lucian Larson Jr. is a 87 year old male with PMH as below who presents for establishment. Feels ok overall. H/o cad, atrial fib, heart failure, has aicd. Sees cardiology. Occasional palpitations but chronic, no cp, pressure and no aicd firings. notes runny nose for long time mostly with eating. No nose bleeds, fevers, chills. Also memory slowly worse, trouble with short term. Not driving anymore. Didn't discuss with previous pcp. No wondering or getting lost. H/o chronic back pain 2/2 falls, compression, fx, uses walker Patient Active Problem List Diagnosis Code CAD (coronary artery disease) I25.10 Heart failure, systolic, due to CAD I50.20, I25.10 Ischemic cardiomyopathy I25.5 Atrial fibrillation (HCC) I48.91 AICD (automatic cardioverter/defibrillator) present Z95.810 Acquired hypothyroidism E03.9 History of compression fracture of spine Z87.81 Current Outpatient Medications Medication Sig Dispense Refill VITAMIN D 2000 UNITS PO TABS one tablet daily Coenzyme Q10 (COQ10) 200 MG CAPS Take 1 Cap by mouth daily. Cetirizine HCl 10 MG Oral Capsule Take 1 Capsule by mouth in the morning. Levothyroxine Sodium 75 MCG Oral Tablet (Levoxyl) Take 1 Tablet by mouth in the morning. Clopidogrel Bisulfate 75 MG Oral Tablet (pLAVix) Take 1 tablet by mouth once daily 90 Tablet 3 Metoprolol Succinate ER 50 MG Oral Tablet Extended Release 24 Hour (toPROL XL) Take 2 in the morning , 1 1/2 in the evening 315 Tablet 3 Furosemide 20 MG Oral Tablet (Lasix) Take 2 tablets by mouth in the morning. (Patient taking differently: Take 1 Tablet by mouth in the morning. Take 2 tablets by mouth in the morning..) 180 Tablet 3 Warfarin Sodium 5 MG Oral Tablet (Coumadin) TAKE 1/2 (ONE-HALF) TABLET BY MOUTH ON WEDNESDAY, WEDNESDAY AND WEDNESDAY AND 1 TABLET ALL OTHER DAYS. 70 Tablet 3 Rosuvastatin Calcium 5 MG Oral Tablet (Crestor) Take 1 Tablet by mouth once a day on Wednesday, Wednesday, and Wednesday only. TAKE 1 TABLET BY MOUTH ON WEDNESDAY, WEDNESDAY AND WEDNESDAY 39 Tablet 3 Entresto 24-26 MG Oral Tablet (sacubitril-valsartan 24-26 mg per tab) Take 1/2 tab each am and pm 90 Tablet 3 Digoxin 125 MCG Oral Tablet (Lanoxin) TAKE 1 TABLET BY MOUTH ON WEDNESDAY, WEDNESDAY AND WEDNESDAY 30 Tablet 3 Ipratropium Massena 0.03 % Nasal Solution (Atrovent) Administer 2 Sprays into each nostril 2 times a day as needed for Rhinitis. for runny nose 30 mL 1 nitroglycerin (NITROSTAT) 0.[address] 1 Tab under the tongue as needed for Pain, Chest. (Patient not taking: Reported on 08/31/2023) 25 Tab 11 No current facility-administered medications for this visit. Review of patient's allergies indicates: No Known Allergies Health Maintenance Due Topic Date Due Pneumococcal Vaccine: 65+ Years (1 - PCV) Never done Depression Screening Never done DIG LEVEL FOR MEDICATION MONITORING YEARLY 06/12/2023 COVID-19 Vaccine (2022-24 season) 2023 ROS: CONSTITUTIONAL: No weakness, and No fevers, sweats, or chills EYE: No recent significant change in vision and No eye pain, redness, discharge EARS: No ear pain, No drainage, No tinnitus or vertigo, and No recent change in hearing PULMONARY: No cough, sputum, or hemoptysis, No wheezing, No rales, No shortness of breath, and No recent change in breathing CARDIOVASCULAR: No chest pain, No shortness of breath, No dyspnea on exertion, No orthopnea, No paroxysmal nocturnal dyspnea, No edema, and No syncope GASTROINTESTINAL: No abdominal pain, No change in bowel habits, No significant heartburn, No significant change in appetite, No nausea, vomiting, diarrhea, or constipation, No hematemesis, No blood in stools or black tarry stools, No abdominal bloating or early satiety, and No dysphagia ALL OTHER SYSTEMS NEGATIVE I reviewed social, PMH, PSH, and family history and updated where needed. Social History Socioeconomic History Marital status: Spouse name: Not on file Number of children: Not on file Years of education: Not on file Highest education level: Not on file Occupational History Not on file Tobacco Use Smoking status: Former Packs/day: 1.00 Years: 45.00 Additional pack years: 0.00 Total pack years: 45.00 Types: Cigarettes, Pipe Quit date: 03/27/1995 Years since quittin.4 Smokeless tobacco: Never Vaping Use Vaping Use: Never used Substance and Sexual Activity Alcohol use: Not Currently Comment: occasionally Drug use: No Sexual activity: Not on file Other Topics Concern Not on file Social History Narrative Not on file Social Determinants of Health Financial Resource Strain: Not on file Food Insecurity: Not on file Transportation Needs: Not on file Physical Activity: Not on file Stress: Not on file Social Connections: Not on file Intimate Partner Violence: Not on file Housing Stability: Not on file Past Medical History: Diagnosis Date Acquired hypothyroidism 08/31/2023 Past Surgical History: Procedure Laterality Date INSERT/REPLACE DEFIBRILLATOR W/TRANSVERSE LEAD(S) 02/02/2013 NON-THOR ICD LEADS AND GENERATOR IMPLANT performed [place] Dre Gonzalez [place] [facility] [place] History Problem Relation Age of Onset Heart disease Mother Stroke Father Heart Disorder Sister Heart disease Sister Heart Disorder Sister Heart disease Sister OBJECTIVE: PHYSICAL EXAM: BP 104/60 | Pulse 53 | Temp 35.7 C (96.2 F) | Ht 1.715 m (5' 7.5") | Wt 77.5 kg (170 lb 14.4 oz) | SpO2 98% | BMI 26.37 kg/m | BSA 1.92 m General: alert and no distress Head: Normocephalic, No masses, lesions, or abnormalities Eye Exam: conjunctiva are pink and non-injected, sclera clear Ears: External ears normal, Canals clear, TM's Normal Heart: regular rate & rhythm, no murmur, no gallops, PMI non-displaced, S-1 normal, and S-2 normal Nose: mild erythema Lungs: normal respiratory rate and rhythm, lungs clear to auscultation Abdomen: abdomen soft and non-tender Extremities: no edema, no clubbing, no cyanosis Neuro Exam: alert with fluent speech, stands on own, needs aid to table,. Walks with walker Psych: normal affect, no flight of ideas or tangential thought, good eye contact, no pressured speech MMSE: 20/30 10.9.23 cardiology: Options of management discussed with patient and who was present for the entire visit. Via shared decision making, will continue current therapies as presently prescribed. Benefits of anticoagulation still appear to outweigh risks. DME order completed and provided for a rolling walker. Nonfasting laboratory work ordered to be obtained when evaluated by new PCP later this month. Seasonal influenza vaccination administered by the nursing staff as requested by the patient. Routine cardiology follow-up in 6 months time or as needed. ER with emergencies. 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) (Primary) Seems stable Cont coumadin, metoprolol, entresto, rosuvastatin Sees cardiology AICD (automatic cardioverter/defibrillator) present Follows with cardiology Heart failure, systolic, due to CAD Euvolemic here Cont entresto, furosemide, metoprolol, coumadin Ischemic cardiomyopathy As above Permanent atrial fibrillation (HCC) Cont metoprolol, warfarin History of compression fracture of spine Cont walker Memory change - VITAMIN B12; Future; Expected date: 08/31/2023 - COMPREHENSIVE METABOLIC PANEL; Future; Expected date: 08/31/2023 - RPR; Future; Expected date: 08/31/2023 - MINI-MENTAL QUESTIONNAIRE SCAN (MMSE) OP - CBC WITH WBC DIFFERENTIAL; Future; Expected date: 08/31/2023 Seems decreased, perhaps vascular dementia. Will check labs, get neurology aid Cont no driving Hip arthritis Cont walker Acquired hypothyroidism - TSH; Future; Expected date: 08/31/2023 Cont levothyroxine Post-nasal drip - Ipratropium Massena 0.03 % Nasal Solution (Atrovent); Administer 2 Sprays into each nostril 2 times a day as needed for Rhinitis. for runny nose Perhaps gustatory rhinitis, trial of above Follow Up: Return in about 6 months (around 02/29/2024), or if symptoms worsen or fail to improve, for Labs Today. | For: Labs Today Aftba Perla MD documented in this encounter Nursing Notes * Gen Vilchis CMA - 08/31/2023 9:49 AM EDT Chief Complaint Patient presents with NEW PATIENT Patient presents to establish care today due to previous PCP retiring. Patient's is presents and states concerns for Lucian having a constant nasal drip. Patient's also states that memory has been a concern, last memory test was in January of 2023. 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 [address] [place] [address] Wilmar Lay PA-C [address] [address] 03/07/2024 3:00 PM EDT Office Visit General Internal Medicine [facility] [place] [address] [place] [address] Aftab Perla MD [address] [facility] [address] [place] [address] 03/31/2024 11:00 AM EDT Cardiac Studies Cardiology, [facility] [address] [place] [place] [address] [facility] [address] [facility] [place] [address] [address] 09/29/2024 9:00 AM EST Office Visit Neurology [facility] [address] [facility], [place] [address] Clifton Bey, DO [address] [place] [address] Scheduled Orders Name Type Priority Associated Diagnoses Orde r Schedule VITAMIN B12 Lab Routine Memory change Expected: 08/31/2023 (Approximate), Expires: 08/30/2024 TSH Lab Routine Acquired hypothyroidism Expected: 08/31/2023 (Approximate), Expires: 08/30/2024 COMPREHENSIVE METABOLIC PANEL Lab Routine Memory change Expected: 08/31/2023 (Approximate), Expires: 08/30/2024 RPR Lab Routine Memory change Expected: 08/31/2023 (Approximate), Expires: 08/30/2024 CBC WITH WBC DIFFERENTIAL Lab Routine Memory change Expected: 08/31/2023 (Approximate), Expires: 08/31/2024 Scheduled Referrals Name Type Priority Associated Diagnoses Orde r Schedule NEUROLOGY REFERRAL OP Referral Within 30 days (routine) Memory change Ordered: 08/31/2023 Health Maintenance Due Date Last Done Comments Pneumococcal Vaccine: 65+ Years (1 - PCV) 1940 DIG LEVEL FOR MEDICATION MONITORING YEARLY 06/12/2023 06/12/2022, 01/27/2022, 10/06/2021, Additional history exists COVID-19 Vaccine ( - 2022-24 season) 2023 09/29/2022, 04/14/2022, 09/09/2021, Additional history [...] encounter Visit Diagnoses Diagnosis 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)- Primary AICD (automatic cardioverter/defibrillator) present Automatic implantable cardiac defibrillator in situ Heart failure, systolic, due to CAD Unspecified systolic heart failure Ischemic cardiomyopathy Other specified forms of chronic ischemic heart disease Permanent atrial fibrillation (HCC) Atrial fibrillation History of compression fracture of spine Personal history of traumatic fracture Memory change Memory loss Hip arthritis Unspecified arthropathy, pelvic region and thigh Acquired hypothyroidism Unspecified hypothyroidism Post-nasal drip Postnasal drip Permanent atrial fibrillation (HCC)- Primary Atrial fibrillation Myocardial infarction, unspecified VT type, unspecified artery (HCC) Atrial fibrillation, unspecified type (HCC) Anticoagulation management encounter Encounter for therapeutic drug monitoring 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
--- OUTSIDE RECORDS SUMMARY | 2023-09-08 00:36 | External Medical Summary | Summary of Care ---
Author Name Unknown Organization [facility] Address [address] [facility] [place] [address] Phone [phone] Care Team Providers Care All Terrain Vehicle Technician Name Role Phone Hank Oshea MD Primary Care Provider Reason for Visit * Reason Comments Dosage Adjustment In Person (Anticoag Cl inic) Encounter Details Date Type Department Care Team Description 08/03/2023 Anticoagulation Pharmacy, [facility] [address] [facility] [place] [address] Pharmacist1, [facility] [address] [facility] [place] [address] Myocardial infarction, unspecified SD type, unspecified artery (HCC)*; Chronic atrial fibrillation (HCC); Atrial fibrillation, unspecified type (HCC); Anticoagulation management encounter; nursing home 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 therapy Allergies No known active allergiesdocumented as of this encounter (statuses as of 08/03/2023) Medications Medication Sig Dispensed Refills Start Date End Date Status VITAMIN D 2000 UNITS PO TABS one tablet daily 0 Active nitroglycerin (NITROSTAT) 0.4 MG SUBLIndications:Salo nary artery disease involving ottawa coronary artery of ottawa heart without angina pectoris,Myocardial infarction involving other [...] Oral Tablet (Lanoxin)Indications :Coronary artery disease involving ottawa coronary artery of ottawa heart without angina pectoris,Chronic atrial fibrillation (HCC) [...] (automatic cardioverter/defibri llator) present,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 TAKE 1 TABLET BY MOUTH ON WEDNESDAY, WEDNESDAY AND WEDNESDAY 39 Tablet 3 05/14/2023 Active documented as of this encounter (statuses as of 08/03/2023) Active Problems Problem Noted Date AICD (automatic cardioverter/defibrillat or) present 02/10/2013 Heart failure, systolic, due to CAD 06/2013 Ischemic cardiomyopathy 01/06/2013 Atrial fibrillation 01/06/2013 CAD (coronary artery disease) 07/25/2012 SD (myocardial infarction) 07/25/2012 documented as of this encounter (statuses as of 08/03/2023) Immunizations Name Administration Dates Next Due COVID-19 mRNA, LNP-s, No Pre serve, 2-Dose Series (Moderna) 04/14/2022,09/09/2021,01/21/2021,2020 DTaP Dipth/Tet/Acell Pertussis (Infanrix), Peds 07/29/2017 Seasonal Influenza, Quadriva lent Hd, 65+ [...] Progress Notes * Anibal Raymundo RPh - 08/03/2023 1:34 PM EDT Medication Therapy Disease Management - Anticoagulation Lucian Larson Jr. 1935 Patient Findings Negatives: Signs/symptoms of thrombosis, Signs/symptoms of bleeding, Change in health, Change in alcohol use, Change in activity, Upcoming invasive procedure, Missed doses, Extra doses, Change in medications, Change in diet/appetite, Bruising INR Result As of 08/03/2023 INR goal: 2.0-3.0 INR used for dosin.9 (08/03/2023) Warfarin Plan As of 08/03/2023 Full warfarin instructions: 5 mg every Wed, Wed, Wed; 2.5 mg all other days No change documented: Anibal Raymundo RPh Next INR check: 08/31/2023 Repeat PT/INR in 4 week(s) Weekly dose: not changed Anibal Caceres RPh, CACP, CDE Clinical Pharmacist Medication Therapy Management [facility] 08/03/2023 1:39 PM documented in this encounter Plan of Treatment Upcoming Encounters Date Type Specialty Care Team Description 08/31/2023 Office Visit Internal Medicine [facility]ab Perla [facility] [address] [facility] [address] 08/31/2023 Anticoagulation Pharmacy Pharmacist1, [facility] [address] [facility] [place] [address] 02/14/2024 Office Visit Cardiology Wilmar Lay PA-C [address] [place] [address] 03/31/2024 Cardiac Studies Cardiology [facility] [address] [place] [address] Health Maintenance Due Date Last Done Comments [...] Comments INR FINGERSTICK, POINT OF CARE STAT 08/03/2023 1:37 PM EDT Myocardial infarction, unspecified SD type, unspecified artery (HCC) Atrial fibrillation, unspecified type (HCC) 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 documented in this encounter Results * INR FINGERSTICK, POINT OF CARE (08/03/2023 1:37 PM EDT) Fingerstick INR 2.9 INR 1:38 PM EDT [facility] Blood 08/03/2023 1:37 PM EDT 08/03/2023 1:38 PM EDT Narrative [facility] - 08/03/2023 1:38 PM EDT Therapeutic ranges for non-operative patients: Prophylaxsis/treatment of DVT: (Range:2.0-3.0) Treatment of pulmonary embolism:(Range:2.0-3.0) Prevention of systemic embolism from: -tissue heart valves -acute myocardial infarction -valvular heart disease -atrial fibrillation (Range: 2.0-3.0) Mechanical prosthetic valves: (Range: 2.5-3.5) Anibal Nicki V, [facility] LAB POINT OF CARE TE ST DOCKED DEVICE UNSOLICITED RESULTS [facility] [address] [place], [place] [id number] documented in this encounter Visit Diagnoses Diagnosis Myocardial infarction, unspecified SD type, unspecified artery (HCC)- Primary Chronic atrial fibrillation (HCC) Atrial fibrillation Atrial fibrillation, unspecified type (HCC) Anticoagulation management encounter Encounter for therapeutic drug monitoring nursing home 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 therapy documented in this encounter Care Teams All Terrain Vehicle Technician Relationship Specialty Start Date End Date Hank Oshea MD [address] [address] PCP - General Internal Medicine 08/13/14 documented as of this encounter
--- OUTSIDE RECORDS SUMMARY | 2023-09-08 00:36 | External Medical Summary ---
Author Name Unknown Address Unknown Organization [id number]:[facility] [place] [address] Laboratory Report Ordering Provider Test Date Status ANDRÉS KEITH 08/31/2023 10:48:19 Final Observation Date Value Abnormality Reference (Units ) Status SYNC LEUKOCYTES IN BLOOD BY AUTOMATED COUNT 08/31/2023 10:48:19 6.60 4.00-10.80 (K/uL) Final Segs 08/31/2023 10:48:19 57.5 40.0-75.0 (%) Final Lymphs % 08/31/2023 10:48:19 27.0 18.0-42.0 (%) Final Monos 08/31/2023 10:48:19 12.0 Above high normal 1.0-11.0 (%) Final Eosinophils 08/31/2023 10:48:19 3.0 0.0-6.0 (%) Final Basos 08/31/2023 10:48:19 0.5 0.0-2.0 (%) Final Absolute Segs 08/31/2023 10:48:19 3.80 1.80-7.70 (K/uL) Final Lymphs, absolute 08/31/2023 10:48:19 1.78 1.00-4.80 (K/ul) Final Monos, Abs 08/31/2023 10:48:19 0.79 0.00-1.10 (K/uL) Final Eos, Abs 08/31/2023 10:48:19 0.20 0.00-0.70 (K/uL) Final Basos, Abs 08/31/2023 10:48:19 0.03 0.00-0.20 (K/uL) Final Performing Location [facility] [place] [address]
--- OUTSIDE RECORDS SUMMARY | 2023-09-08 00:36 | External Medical Summary ---
Author Name Unknown Address Unknown Organization K01:[facility]ATORY [facility] - [address] [place] [address] Laboratory Report Ordering Provider Test Date Status ANDRÉS KEITH 08/31/2023 10:48:19 Final Observation Date Value Abnormality Reference (Units ) Status Vitamin B12 08/31/2023 10:48:19 [phone] (pg/mL) Final Performing Location [facility] - [address] [place] [address]
--- OUTSIDE RECORDS SUMMARY | 2023-09-08 00:36 | External Medical Summary | Summary of Care ---
Author Name Unknown Organization [facility] Address [address] [place] [address] Phone [phone] Care Team Providers Care Manager Of Development Name Role Phone Aftab Perla MD Primary Care Provider + Reason for Visit * Reason Comments Outpatient Testing Encounter Details Date Type Department Care Team (Late st Contact Info) Description 08/31/2023 10:40 AM EDT Laboratory Laboratory [facility] [address] [place] [address] [facility] Lab [facility] [address] [place] [address] Abnormal TSH; Acquired hypothyroidism; Ischemic cardiomyopathy; Encounter for monitoring diuretic therapy; Chronic atrial fibrillation (HCC); Memory change Allergies No known active allergiesdocumented as of this encounter (statuses as of 08/31/2023) Medications Medication Sig Dispensed Refills Start Date End Date Status VITAMIN D 2000 UNITS PO TABS one tablet daily 0 Activ e nitroglycerin (NITROSTAT) 0.4 MG SUBLIndications:Cor onary artery disease involving [place] coronary artery of [place] heart without angina pectoris,Myocardial infarction involving other [...] (automatic cardioverter/defibr illator) present,Coronary artery disease of [place] artery of [place] heart with stable angina pectoris (HCC) Take [...] Oral Tablet (Lanoxin)Indication s:Coronary artery disease involving [place] coronary artery of [place] heart without angina pectoris,Chronic atrial fibrillation (HCC) TAKE 1 TABLET BY MOUTH ON WEDNESDAY, WEDNESDAY AND WEDNESDAY 30 Tablet 3 08/16/2023 Active Ipratropium Harrison 0.03 % Nasal Solution (Atrovent)Indicatio ns:Post-nasal drip [...] Description 10/11/2023 11:30 AM EST Anticoagulation Pharmacy, [facility] [address] [facility] [place] [address] Pharmacist1, [facility] [address] [facility] [place] [address] 02/18/2024 1:00 PM EDT Office Visit Cardiology, [facility] [address] [facility] [place] [address] Wilmar Lay PA-C [address] [place] [address] 03/07/2024 3:00 PM EDT Office Visit General Internal Medicine [facility] [address] [facility] [place] [address] Aftab Perla MD [address] [facility] [place] [address] 03/31/2024 11:00 AM EDT Cardiac Studies Cardiology, [facility] [address] [facility] [place] [address] Gigi, [facility] [address] [facility] [place] [address] 09/29/2024 9:00 AM EST Office Visit Neurology [facility] [address] [facility] [place] [address] Clifton Bey, DO [address] [place] [address] Pending Results Name Type Priority Associated Diagnoses Date /Time TSH Lab Routine Abnormal TSH Acquired hypothyroidism 08/31/2023 10:48 AM EDT COMPREHENSIVE METABOLIC PANEL Lab Routine Ischemic cardiomyopathy Encounter for monitoring diuretic therapy 08/31/2023 10:48 AM EDT DIGOXIN LEVEL Lab Routine Ischemic cardiomyopathy Chronic atrial fibrillation (HCC) 08/31/2023 10:48 AM EDT VITAMIN B12 Lab Routine Memory change 08/31/2023 10:48 AM EDT RPR Lab Routine Memory change 08/31/2023 10:48 AM EDT Health Maintenance Due Date Last Done Comments Pneumococcal Vaccine: 65+ Years (1 - PCV) 1940 DIG LEVEL FOR MEDICATION MONITORING YEARLY 06/12/2023 06/12/2022, 01/27/2022, 10/06/2021, Additional history exists COVID-19 Vaccine (6 - 2022-24 season) 2023 09/29/2022, 04/14/2022, 09/09/2021, [...] Procedure Name Priority Date/Time Associated Diagnosis Comments DIFFERENTIAL, AUTOMATED Routine 08/31/2023 10:48 AM EDT Memory change CBC Routine 08/31/2023 10:48 AM EDT Memory change CBC Routine 08/31/2023 10:48 AM EDT Memory change documented in this encounter Results * (ABNORMAL) DIFFERENTIAL, AUTOMATED (08/31/2023 10:48 AM EDT) WBC 6.60 4.00 - 10.80 K/uL 08/31/2023 11:05 AM EDT [facility] [place] 56-02 Neutrophils % 57.5 40.0 - 75.0 % 08/31/2023 11:05 AM EDT [facility] 56- Lymphocytes % 27.0 18.0 - 42.0 % 08/31/2023 11:05 AM EDT [facility] 56-02 Monocytes % 12.0(H) 1.0 - 11.0 % 08/31/2023 11:05 AM EDT [facility] 56- Eosinophils % 3.0 0.0 - 6.0 % 08/31/2023 11:05 AM EDT [facility] 56- Basophils % 0.5 0.0 - 2.0 % 08/31/2023 11:05 AM EDT [facility] 56- Absolute Neutrophils 3.80 1.80 - 7.70 K/uL 08/31/2023 11:05 AM EDT [facility] 56- Absolute Lymphocytes 1.78 1.00 - 4.80 K/ul 08/31/2023 11:05 AM EDT [facility] 56- Absolute Monocytes 0.79 0.00 - 1.10 K/uL 08/31/2023 11:05 AM EDT [facility] 56-02 Absolute Eosinophils 0.20 0.00 - 0.70 K/uL 08/31/2023 11:05 AM EDT [facility] 56-02 Absolute Basophils 0.03 0.00 - 0.20 K/uL 08/31/2023 11:05 AM T [facility] 56-02 Blood Venous blood specimen / Unknown Venipuncture / Unknown 08/31/2023 10:48 AM EDT 08/31/2023 10:48 AM EDT Aftab Perla MD LAB BLOOD ORDERA BLES [facility] 56-[address] [place] [address] * (ABNORMAL) CBC (08/31/2023 10:48 AM EDT) WBC 6.60 4.00 - 10.80 K/uL 08/31/2023 11:05 AM EDT [facility] 56- RBC 3.86 4.50 - 5.25 M/uL 08/31/2023 11:05 AM EDT [facility] 56-02 HGB 13.2(L) 14.0 - 16.8 g/dL 08/31/2023 11:05 AM EDT [facility] 56 HCT 40.3 40.0 - 48.4 % 08/31/2023 11:05 AM EDT [facility] 56 MCV 104.4 82.0 - 99.5 fL 08/31/2023 11:05 AM EDT [address] MCH 34.2 27.0 - 34.0 pg 08/31/2023 11:05 AM EDT [address] MCHC 32.8 32.0 - 36.0 g/dL 08/31/2023 11:05 AM EDT [place] [address] RDW 13.9 11.5 - 15.5 % 08/31/2023 11:05 AM EDT [facility] 56 PLT 165 140 - 400 K/uL 08/31/2023 11:05 AM T [address] MPV 10.2 6.6 - 11.1 fL 08/31/2023 11:05 AM EDT [facility] 56 Blood Venous blood specimen / Unknown Venipuncture / Unknown 08/31/2023 10:48 AM EDT 08/31/2023 10:48 AM EDT Aftab Perla MD LAB BLOOD ORDERA BLES Performing Organization Address City/State/[facility] Co de Phone Number [facility] [address] [place] [address] documented in this encounter Visit Diagnoses Diagnosis Abnormal TSH Other abnormal clinical finding Acquired hypothyroidism Unspecified hypothyroidism Ischemic cardiomyopathy Other specified forms of chronic ischemic heart disease Encounter for monitoring diuretic therapy Encounter for therapeutic drug monitoring Chronic atrial fibrillation (HCC) Atrial fibrillation Memory change Memory loss documented in this encounter Care Teams Manager Of Development Relationship Specialty Start Date End Date [facility] Perla [facility] [address] [facility] [address] [facility] - General Internal Medicine 08/09/23 documented as of this encounter
--- OUTSIDE RECORDS SUMMARY | 2023-09-08 00:36 | External Medical Summary ---
Author Name Unknown Address Unknown Organization [id number]:[facility] [place] [address] Laboratory Report Ordering Provider Test Date Status JENNIFER LOPEZ V 07/06/2023 13:56:49 Final Therapeutic ranges for non-o perative patients:
Prophylaxsis/treatment of DVT: (Range:2.0-3.0)
Treatment of pulmonary embolism:(Range:2.0-3.0)
Prevention of systemic embolism from:
-tissue heart valves
-acute myocardial infarction
-valvular heart disease
-atrial fibrillation
(Range: 2.0-3.0)
Mechanical prosthetic valves: (Range: 2.5-3.5) Observation Date Value Abnormality Reference (Units ) Status INR in Capillary blood by Coagulation assay 07/06/2023 13:56:49 3.5 (INR) Final Performing Location [facility] [place] [address]
--- OUTSIDE RECORDS SUMMARY | 2023-09-08 00:36 | External Medical Summary | Summary of Care ---
Author Name Unknown Organization [facility] Address [address] [facility] [place] [address] Phone [phone] Care Team Providers Care Horse Trader Name Role Phone Aftab Perla MD Primary Care Provider + Reason for Visit * Reason Onset Date Comments Follow Up Medication Administration 08/09/2023 Flu an d/or Pneumo Inj Encounter Details Date Type Department Care Team Description 08/09/2023 Office Visit Cardiology, [facility] [address] [place] [address] Wilmar Lay PA-C [address] [place] [id number] Need for prophylactic vaccination and inoculation against influenza*; Ischemic cardiomyopathy; AICD (automatic cardioverter/defibrill ator) present; Chronic atrial fibrillation (HCC); Encounter for monitoring diuretic therapy; Abnormal TSH; Acquired hypothyroidism; Heart failure, systolic, due to CAD ; Ambulatory dysfunction Allergies No known active allergiesdocumented as of this encounter (statuses as of 08/09/2023) Medications Medication Sig Dispensed Refills Start Date End Date Status VITAMIN D 2000 UNITS PO TABS one tablet daily 0 Activ e nitroglycerin (NITROSTAT) 0.4 MG SUBLIndications:Co ronary artery disease involving tanacross coronary artery of tanacross heart without angina pectoris,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 25 Tab 11 07/21/2016 Active Coenzyme Q10 (COQ10) 200 MG CAPS Take 1 Cap by mouth daily. 0 Active Cetirizine HCl 10 MG Oral Capsule Take 1 Capsule by mouth in the morning. 0 Active Digoxin 125 MCG Oral Tablet (Lanoxin)Indicatio ns:Coronary artery disease involving tanacross coronary artery of tanacross heart without angina pectoris,Chronic atrial fibrillation (HCC) TAKE ONE TABLET BY MOUTH ON WEDNESDAY, WEDNESDAY AND WEDNESDAY 28 Tablet 11 07/01/2022 Active Levothyroxine Sodium 75 MCG Oral Tablet (Levoxyl) Take 1 Tablet by mouth in the morning. 0 10/22/2022 Active Clopidogrel Bisulfate 75 MG Oral Tablet (pLAVix)Indication s:Permanent atrial fibrillation (HCC) Take 1 tablet by mouth once daily 90 Tablet 3 12/29/2022 Active Metoprolol Succinate ER 50 MG Oral Tablet Extended Release 24 Hour (toPROL XL)Indications:Atr ial fibrillation, unspecified type (HCC) Take 2 in the morning , 1 1/2 in the evening 315 Tablet 3 01/07/2023 Active Furosemide 20 MG Oral Tablet (Lasix)Indications :Heart failure, systolic, due to CAD Take 2 tablets by mouth in the morning. 180 Tablet 3 02/17/2023 Active Additional Information Patient taking differently: 20 mg Oral Daily(AM), Take 2 tablets by mouth in the morning., Reported on 08/09/2023 Warfarin Sodium 5 MG Oral Tablet (Coumadin)Indicati ons:Atrial fibrillation (HCC) TAKE 1/2 (ONE-HALF) TABLET BY MOUTH ON WEDNESDAY, WEDNESDAY AND WEDNESDAY AND 1 TABLET ALL OTHER DAYS. 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 TAKE 1 TABLET BY MOUTH ON WEDNESDAY, WEDNESDAY AND WEDNESDAY 39 Tablet 3 05/14/2023 Active Entresto 24-26 MG Oral Tablet (sacubitril-valsar frazier 24-26 mg per tab)Indications:Is chemic cardiomyopathy,Hea rt failure, systolic, due to CAD Take 1/2 tab each am and pm 90 Tablet 3 08/09/2023 Active Entresto 24-26 MG Oral Tablet (sacubitril-valsar frazier 24-26 mg per tab)Indications:Is chemic cardiomyopathy,Hea rt failure, systolic, due to CAD Take 1/2 tab each am and pm 90 Tablet 3 09/07/2022 3 Discontinue d(Refill) documented as of this encounter (statuses as of 08/09/2023) Active Problems Problem Noted Date AICD (automatic cardioverter/defibrillat or) present 02/10/2013 Heart failure, systolic, due to CAD 06/2013 Ischemic cardiomyopathy 01/06/2013 Atrial fibrillation 01/06/2013 CAD (coronary artery disease) 07/25/2012 [place] (myocardial infarction) 07/25/2012 documented as of this encounter (statuses as of 08/09/2023) Immunizations Name Administration Dates Next Due COVID-19 [...] Q uit: 03/27/1995 Pipe Smokeless Tobacco: Never Tobacco Cessation:Counseling Given: Not Answered Alcohol Use Standard Drinks/Week Comments Yes 0 (1 standard drink = 0.6 oz pur e alcohol) occasionally Sex Assigned at Date Recorded Not on file Job Start Date Occupation Industry Not on file Not on file Not on file documented as of this encounter Last Filed Vital Signs Vital Sign Reading Time Taken Comments Blood Pressure 106/68 08/09/2023 10:28 AM EDT Pulse 54 08/09/2023 10:28 AM EDT Temperature - - Respiratory Rate 16 08/09/2023 10:28 AM EDT Oxygen Saturation - - Inhaled Oxygen Concentration - - Weight 75.5 kg (166 lb 8 oz) 08/09/2023 10:28 AM EDT Height - - Body Mass Index 23.89 01/13/2022 12:34 PM EDT documented in this encounter Patient Instructions * Patient Instructions* Eva Ortiz CMA - 08/09/2023 10:39 AM EDT ~~PATIENT INSTRUCTIONS FOR FLU SHOT~~ Possible side effects of influenza vaccine, (flu shot), are usually mild and include: 1. Soreness or redness at injection site 2. Low grade fever 3. Body aches You may use Tylenol/Acetaminophen as needed for these symptoms. LET YOUR DOCTOR KNOW IMMEDIATELY IF YOU HAVE DIFFICULTY BREATHING OR SWALLOWING, EXPERIENCE ITCHINGOF FEET OR HANDS, HAVE SWELLING OF EYES, FACE OR INSIDE OF NOSE. documented in this encounter Progress Notes * Eva Ortiz CMA - 08/09/2023 10:39 AM EDT PRE - ADMINISTRATION DOCUMENTATION Are you experiencing any cold symptoms or fever? No Have you had Guillain-[place] Syndrome (an illness that causes paralysis) within the last 6 weeks? No Have you had the flu shot in the past? YES Have you ever had a reaction to the flu shot? No Eva Ortiz CMA, 08/09/2023 10:39 AM Immunization Administration Documentation Time Out Procedure Performed: Yes Patient Identified (Ask Name/Date of ): Yes Does the patient have a fever greater than 101 degrees today? No Patient allergic to latex? No [facility] Stock: No Immunization(s) verified: Yes, Immunization Name: Flu, VIS Sheet(s) given: Yes Verified Side and Site: Yes Verified Shot(s) with Parent(s)/Patient: Yes * Wilmar Lay PA-C - 08/09/2023 10:38 AM EDT History of Present Illness: Lucian Larson Jr. Is a very pleasant 87-year-old male who was last seen in this office by Dr. Langston on January 07, 2023 Scheduled to establish care with Dr. Perla on 08/31/2023 following the halfway of Dr. Hank Oshea No chest pain. No tachypalpitations. Stable shortness of breath. Able to move from room to room in the house with a walker Chronic cough productive of phlegm only, unchanged. No orthopnea, PND, or increased edema. Down 5 pounds since last evaluation in this office in December 2022 No near syncope or syncope. No fevers or chills. No epistaxis, hemoptysis, melena, hematochezia, orhematuria. Ambulatory dysfunction. Back issues. Left knee issues. Notes that the left leg is "almost worthlessto me." Looses balance easily Fall x 2 about 1 month ago Patient Active Problem List Diagnosis Code CAD (coronary artery disease) I25.10 [place] (myocardial infarction) ([facility]) I21.9 Heart failure, systolic, due to CAD I50.20, I25.10 Ischemic cardiomyopathy I25.5 Atrial fibrillation ([facility]) I48.91 AICD (automatic cardioverter/defibrillator) present Z95.810 Review of patient's allergies indicates: No Known Allergies Current Outpatient Medications Medication Sig Dispense Refill VITAMIN D 2000 UNITS PO TABS one tablet daily nitroglycerin (NITROSTAT) 0.[address] 1 Tab under the tongue as needed for Pain, Chest. 25 Tab 11 Coenzyme Q10 (COQ10) 200 MG CAPS Take 1 Cap by mouth daily. Cetirizine HCl 10 MG Oral Capsule Take 1 Capsule by mouth in the morning. Digoxin 125 MCG Oral Tablet (Lanoxin) TAKE ONE TABLET BY MOUTH ON WEDNESDAY, WEDNESDAY AND WEDNESDAY 28Tablet 11 Levothyroxine Sodium 75 MCG Oral Tablet (Levoxyl) [...] each am and pm 90 Tablet 3 No current facility-administered medications for this visit. Reflective of today's changes OBJECTIVE/PHYSICAL EXAMINATION: BP 106/68 (BP Site: Left Arm, BP Position: Sitting, BP Cuff Size: Regular) | Pulse 54 | Resp 16 | Wt 75.5 kg (166 lb 8 oz) | BMI 23.89 kg/m | BSA 1.93 m General: A&Ox3. NAD. HENT: Normocephalic. Atraumatic. Eyes: PER. Conjunctiva pink, sclera clear. Neck: No carotid bruits. No overt JVD. Heart: Distant heart sounds. Regular at 50 bpm. Soft systolic murmur. No rub. No gallop. Lungs: Clear. Decreased at the left base. Abdomen: +BS. Soft. Nontender. No masses or organomegaly. Extremities: 1+ distal edema. No clubbing. No cyanosis. Limited neurological examination is without focal deficits. Pulses: radial=2/4, posterior tibial=2/4. Data: January 13, 2022 TTE Interpretation Summary (as per Dr. Langston): The left ventricular cavity size is mildly enlarged. The wall thickness is normal in segments with normal wall motion. The septal motion is abnormal consistent with right ventricular pacemaker. There is severe diffuse LV dysfunction withakinesis of the inferior, anteroseptal and inferoseptal orr and entire apex. The lateral wall contracts most vigorously is mildly hypokinetic. The qualitative LV ejection fraction is 20-24% (severely reduced). The left atrium is severely enlarged (>48 ml/m^2,). The aortic valve is mildly calcified. Aortic stenosis is absent. Mild mitral regurgitation is present. Severe tricuspid regurgitation is present. The estimated pulmonary artery systolic pressure is 35-40mm Hg. Patient status post January 28, 2022 attempted upgrade to a biventricular ICD, unsuccessful, undergoing status post single-chamber ICD generator exchange by Dr. Davidson Device interrogation on September 01, 2022 demonstrated appropriate function. Medtronic single-chamber ICD with backup pacemaker set VVIR, 50 bpm. Estimated remaining longevity: 10.9 years. RV paced 53.7%. Elevated average ventricular rates noted since August. Optivol below threshold. Device interrogation on August 04, 2023 personally reviewed. Appropriate function. Remaining longevity: 10.4 years. Mode: VVIR with lower rate set at 50 bpm. Ventricular paced 48%. Time in AT/AF 0. OptiVol 2.0 fluid index below threshold. PVC singles: 45.8 per hour from May 05, 2023 to August 04, 2023. Four reported episodes of nonsustained ventricular tachycardia. Selected laboratory work performed through PCP on February 23, 2023: H&H 14.1 and 41.1. Platelet count 177 K. sodium 141. Potassium 4.8. Chloride 104. Bicarb 28. BUN 27. Creatinine 1.31. Hemoglobin A1c 5.9%. Calcium 9.8. AST 23. ALT 13. Alk- phos 75. Total cholesterol 128. LDL 58. HDL 53. Triglycerides 84. TSH 5.547. EKG performed on August 09, 2023 personally reviewed, appears to reveal ventricular paced complexeswith occasional PVCs. ASSESSMENT: Atherosclerotic coronary disease with prior anterior myocardial infarction in 1994. History of acute decompensation in the setting of elevated heart rate, receiving stenting to the recannulated left anterior descending and attempted stent into the proximal right coronary artery in May 2014. Severe ischemic cardiomyopathy, LVEF 20 to 24%, HFrEF Volume status: Stable chronic mild hypervolemia. History of atrial fibrillation and chronic atrial flutter Chronic coumadin anticoagulation Status post January 2013 single-chamber ICD implantation Status post January 28, 2022 attempted upgrade to a biventricular ICD, unsuccessful, status post single-chamber ICD generator exchange by Dr. Davidson at [facility] Frequent ventricular ectopy Atherosclerotic coronary disease Dyslipidemia. LDL 58 mg/dL on 02/23/2023 Options discussed with patient and . Plan as outlined below. RECOMMENDATIONS/PLAN: Options of management discussed with patient and who was present for theentire visit. Via shared decision making, will continue [...] time or as needed. ER with emergencies. Wilmar Lay PA-C Department of Cardiology documented in this encounter Procedure Notes * Ramirez Richardson DO - 08/09/2023 10:43 AM EDTAssociated Order(s): EKG REASON FOR STUDY: check RV pacing CONCLUSIONS: Ventricular-paced rhythm with occasional Premature ventricular complexes with ventricular escape complexes Abnormal ECG When compared with ECG of 28-OCT-2022 14:46, Electronic pacemaker detected has replaced Atrial flutter Vent. rate has decreased BY 70 BPM Ventricular Rate: 50 Atrial Rate: 60 QRS Duration: 200 QT/QTc: 494/450 ms P-R-T [place]: 0 : -80 : 105 degrees documented in this encounter Nursing Notes * Eva Ortiz CMA - 08/09/2023 10:23 AM EDT Examination Room: 3 Name: Lucian Larson Date of : (1935). Reason for Visit: 7M f/u Interim Hospitalization(s): none Problems/Concerns: denies Chest Pain/SOB: Denies CP or unusual SOB [facility] Discussed: Not applicable [facility] is a way you can talk to your provider online through e-mail. Would you like to sign up? I can activate it for you? DECLINES Patient was instructed to not get up on the exam table until directed and assisted by their provider; patient is to remain seated in the chair/ wheelchair/ exam table for fall prevention and safety reasons. Patient is aware to have assistance to step down off exam table with personnel. Patient voiced full comprehension of instructions. documented in this encounter Plan of Treatment Upcoming Encounters Date Type Specialty Care Team Description 08/31/2023 Office Visit Internal Medicine Aftab Perla MD [address] [facility] [place] [id number] 08/31/2023 Anticoagulation Pharmacy Pharmacist1, [facility] [address] [facility] [place] [address] 02/18/2024 Office Visit Cardiology Wilmar Lay PA-C [address] [place] [address] 03/31/2024 Cardiac Studies Cardiology [facility] [address] [place] [address] Scheduled Orders Name Type Priority Associated Diagnoses Orde r Schedule TSH Lab Routine Abnormal TSH Acquired hypothyroidism Expected: 08/10/2023, Expires: 08/09/2024 COMPREHENSIVE METABOLIC PANEL Lab Routine Ischemic cardiomyopathy Encounter for monitoring diuretic therapy Expected: 08/10/2023, Expires: 08/09/2024 DIGOXIN LEVEL Lab Routine Ischemic cardiomyopathy Chronic atrial fibrillation (HCC) Expected: 08/10/2023, Expires: 08/09/2024 Health Maintenance Due Date Last Done Comments [...] Procedure Name Priority Date/Time Associated Diagnosis Comments MT ECG ROUTINE ECG W/LEAST 12 LDS I&R ONLY Routine 08/09/2023 10:43 AM EDT Ischemic cardiomyopathy AICD (automatic cardioverter/defibril lator) present Chronic atrial fibrillation (HCC) documented in this encounter Results * EKG (08/09/2023 10:43 AM EDT) 08/09/2023 10:4 3 AM EDT Procedure Note Ramirez Richardson DO - 08/09/2023 10:43 AM EDT REASON FOR STUDY: check RV pacing CONCLUSIONS: Ventricular-paced rhythm with occasional Premature ventricular complexeswith ventricular escape complexes Abnormal ECG When compared with ECG of 28-OCT-2022 14:46, Electronic pacemaker detected has replaced Atrial flutter Vent. rate has decreased BY 70 BPM Ventricular Rate: 50 Atrial Rate: 60 QRS Duration: 200 QT/QTc: 494/450 ms P-R-T [place]: 0 : -80 : 105 degrees Wilmar Lay PA-C EKG [facility] CARDIOLOG[facility] documented in this encounter Visit Diagnoses Diagnosis Need for prophylactic vaccination and inoculation against influenza- Primary Ischemic cardiomyopathy Other specified forms of chronic ischemic heart disease AICD (automatic cardioverter/defibrillator) present Automatic implantable cardiac defibrillator in situ Chronic atrial fibrillation (HCC) Atrial fibrillation Encounter for monitoring diuretic therapy Encounter for therapeutic drug monitoring Abnormal TSH Other abnormal clinical finding Acquired hypothyroidism Unspecified hypothyroidism Heart failure, systolic, due to CAD Unspecified systolic heart failure Ambulatory dysfunction documented in this encounter Care Teams Horse Trader Relationship Specialty Start Date End Date Aftab Perla MD [address] [place] [address] PCP - General Internal Medicine 08/09/23 documented as of this encounter
--- OUTSIDE RECORDS SUMMARY | 2023-09-08 00:36 | External Medical Summary ---
Author Name Unknown Address Unknown Organization [id number] [address] [place] [address] Laboratory Report Ordering Provider Test Date Status ROXANA MAYA 08/31/2023 10:48:19 Final Observation Date Value Abnormality Reference (Units ) Status BUN 08/31/2023 10:48:19 28 Above high normal 6-20 (mg/dL) Final Creatinine 08/31/2023 10:48:19 1.1 0.6-1.2 (mg/dL) Final Glomerular filtration rate/1.73 sq M.predicted [Volume Rate/Area] in Serum, Plasma or Blood by Creatinine-based formula (CKD-EPI) 08/31/2023 10:48:19 63 >=60 (mL/min) Final eGFR is calculated based on the CKD-EPI 2020 equation SODIUM 08/31/2023 10:48:19 142 135-146 (m mol/L) Final Potassium 08/31/2023 10:48:19 4.9 3.5-5.1 (m mol/L) Final Cl 08/31/2023 10:48:19 105 98-107 (mm ol/L) Final CO2 08/31/2023 10:48:19 27 22-32 (mmo l/L) Final Anion gap 08/31/2023 10:48:19 10 7-15 (mmol /L) Final Glucose 08/31/2023 10:48:19 69 Below low normal 70- 120 (mg/dL) Final Albumin 08/31/2023 10:48:19 4.1 3.8-5.0 (g /dL) Final AST (Aspartate aminotransferase) 08/31/2023 10:48:19 24 10-50 (U/L) Fin al Alk Phos 08/31/2023 10:48:19 87 35-130 (U/ L) Final Bilirubin, Total 08/31/2023 10:48:19 0.8 <=1 .2 (mg/dL) Final Calcium 08/31/2023 10:48:19 9.9 8.4-10.2 ( mg/dL) Final Protein 08/31/2023 10:48:19 6.7 6.0-8.3 (g /dL) Final ALT (Alanine aminotransferase) 08/31/2023 10:48:19 17 10-50 (U/L) Pedro geronimo Performing Location [facility] [address] [place] [address]
--- OUTSIDE RECORDS SUMMARY | 2023-09-08 00:36 | External Medical Summary ---
Author Name Unknown Address Unknown Organization [id number]:[facility] [place] [address] Laboratory Report Ordering Provider Test Date Status JENNIFER LOPEZ V 08/03/2023 13:37:57 Final Therapeutic ranges for non-o perative patients:
Prophylaxsis/treatment of DVT: (Range:2.0-3.0)
Treatment of pulmonary embolism:(Range:2.0-3.0)
Prevention of systemic embolism from:
-tissue heart valves
-acute myocardial infarction
-valvular heart disease
-atrial fibrillation
(Range: 2.0-3.0)
Mechanical prosthetic valves: (Range: 2.5-3.5) Observation Date Value Abnormality Reference (Units ) Status INR in Capillary blood by Coagulation assay 08/03/2023 13:37:57 2.9 (INR) Final Performing Location [facility] [address]
--- OUTSIDE RECORDS SUMMARY | 2023-09-08 00:37 | External Medical Summary ---
Author Name Unknown Address Unknown Organization [id number] [place] [address] Laboratory Report Ordering Provider Test Date Status JENNIFER LOPEZ V 06/01/2023 14:18:48 Final Therapeutic ranges for non-o perative patients:
Prophylaxsis/treatment of DVT: (Range:2.0-3.0)
Treatment of pulmonary embolism:(Range:2.0-3.0)
Prevention of systemic embolism from:
-tissue heart valves
-acute myocardial infarction
-valvular heart disease
-atrial fibrillation
(Range: 2.0-3.0)
Mechanical prosthetic valves: (Range: 2.5-3.5) Observation Date Value Abnormality Reference (Units ) Status INR in Capillary blood by Coagulation assay 06/01/2023 14:18:48 3.5 (INR) Final Performing Location [facility] [place] [address]
--- OUTSIDE RECORDS SUMMARY | 2023-09-08 00:37 | External Medical Summary | Summary of Care ---
Author Name Unknown Organization [facility] Address [address] [facility] [place] [address] Phone [phone] Care Team Providers Care Practice Managers Name Role Phone Hank Oshea MD Primary Care Provider [phone] Reason for Visit * Reason Comments Defibrillator Clinic Encounter Details Date Type Department Care Team Description 03/25/2023 Cardiac Studies Cardiology, [facility] [address] [place] [address] [place], [facility] [address] [place] [address] Ischemic cardiomyopathy*; Chronic atrial fibrillation (HCC); AICD (automatic cardioverter/defibril lator) present; [place] (myocardial infarction) ([facility]) Allergies No known active allergiesdocumented as of this encounter (statuses as of 03/25/2023) Medications Medication Sig Dispensed Refills Start Date End Date Status VITAMIN D 2000 UNITS PO TABS one tablet daily 0 Active nitroglycerin (NITROSTAT) 0.4 MG SUBLIndications:Salo nary artery disease involving [place] coronary artery of [place] heart without angina pectoris,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 25 Tab 11 07/21/2016 Active Coenzyme Q10 (COQ10) 200 MG CAPS Take 1 Cap by mouth daily. 0 Active Cetirizine HCl 10 MG Oral Capsule Take 1 Capsule by mouth in the morning. 0 Active Rosuvastatin Calcium 5 MG Oral Tablet (Crestor)Indications :Heart failure, systolic, due to CAD (HCC),Ischemic cardiomyopathy,AICD (automatic cardioverter/defibri llator) present,Coronary artery disease of [place] artery of [place] heart with stable angina pectoris (HCC) Take 1 tablet on Wed, Wed, and Wed 45 Tablet 3 04/17/2022 Active Digoxin 125 MCG Oral Tablet (Lanoxin)Indications :Coronary artery disease involving [place] coronary artery of [place] heart without angina pectoris,Chronic atrial fibrillation (HCC) [...] OTHER DAYS. 70 Tablet 3 03/08/2023 Active documented as of this encounter (statuses as of 03/25/2023) Active Problems Problem Noted Date AICD (automatic cardioverter/defibrillat or) present 02/10/2013 Heart failure, systolic, due to CAD 06/2013 Ischemic cardiomyopathy 01/06/2013 Atrial fibrillation 01/06/2013 CAD (coronary artery disease) 07/25/2012 [place] (myocardial infarction) 07/25/2012 documented as of this encounter (statuses as of 03/25/2023) Immunizations Name Administration Dates Next Due COVID-19 [...] as of this encounter Progress Notes * GHULAM Pino - 03/25/2023 11:01 AM EDT In office device check performed. Providers see scanned report in scans tab. Return in 1 year for an DC visit. Auto remotes every 91 days in [facility]. Tech: Addi Vaughn III Wafer Production Worker: Dr. Langston documented in this encounter Plan of Treatment Upcoming Encounters Date Type Specialty Care Team Description 04/20/2023 Anticoagulation Pharmacy Pharmacist1, [facility] [address] [facility] [place], [place] [address] 04/22/2023 Office Visit Cardiology Wilmar Lay PA-C [address] [place] [address] 03/31/2024 Cardiac Studies Cardiology [place], [facility] [address] [place] [address] Scheduled Orders Name Type Priority Associated Diagnoses Orde r Schedule SINGLE-LEAD DEFIBRILLATOR + REPROGRAM Procedures Routine Ischemic cardiomyopathy Chronic atrial fibrillation (HCC) AICD (automatic cardioverter/defibrilla tor) present [place] (myocardial infarction) (HCC) Ordered: 03/25/2023 Health Maintenance Due Date Last Done Comments Pneumococcal Vaccine: 65+ Years (1 - PCV) 1941 Depression Screening, Annual for Pts 12 and Over 1947 DIG LEVEL FOR MEDICATION MONITORING YEARLY 06/12/2023 06/12/2022, 01/27/2022, 10/06/2021, Additional history exists TSH 12/29/2023 12/29/2022, 10/02, 06/12/2022, Additional history exists DTaP,Tdap,and Td Vaccines (2 - Tdap) 07/29/2027 07/29/2017 Zoster Vaccines Completed 01/28/2019, 11/06/2018 Influenza Vaccine (FLU shot) Completed 09/2022, 08/05/2021, 07/16/2020, Additional history exists COVID-19 Vaccine Completed 09/29/2022, , 09/09/2021, Additional [...] as of this encounter Visit Diagnoses Diagnosis Ischemic cardiomyopathy- Primary Other specified forms of chronic ischemic heart disease Chronic atrial fibrillation (HCC) Atrial fibrillation AICD (automatic cardioverter/defibrillator) present Automatic implantable cardiac defibrillator in situ [place] (myocardial infarction) (HCC) Acute myocardial infarction, unspecified site, episode of care unspecified documented in this encounter Care Teams Practice Managers Relationship Specialty Start Date End Date Hank Oshea MD [address] [address] PCP - General Internal Medicine 08/13/14 documented as of this encounter
--- OUTSIDE RECORDS SUMMARY | 2023-09-08 00:37 | External Medical Summary | Summary of Care ---
Author Name Unknown Organization [facility] Address [address] [facility] [place] [address] Phone [phone] Care Team Providers Care Food Services Director Name Role Phone Hank Oshea MD Primary Care Provider [phone] Reason for Visit * Reason Comments eRx-Medication Refill Encounter Details Date Type Department Care Team Description 05/10/2023 Refill Cardiology, [facility] [address] [facility] [address] Zulma Lay PA-C [address] [place] [address] Heart failure, systolic, due to CAD (HCC); Ischemic cardiomyopathy; AICD (automatic cardioverter/defibrillat or) present; Coronary artery disease of [place] artery of [place] heart with stable angina pectoris (HCC) Allergies No known active allergiesdocumented as of this encounter (statuses as of 05/10/2023) Medications Medication Sig Dispensed Refills Start Date End Date Status VITAMIN D 2000 UNITS PO TABS one tablet daily 0 Active nitroglycerin (NITROSTAT) 0.4 MG SUBLIndications:Co ronary artery disease involving [place] coronary artery of [place] heart without angina pectoris,Myocardia l infarction involving [...] Oral Tablet (Lanoxin)Indicatio ns:Coronary artery disease involving [place] coronary artery of [place] heart without angina pectoris,Chronic atrial fibrillation (HCC) TAKE ONE TABLET BY MOUTH ON WEDNESDAY, WEDNESDAY AND WEDNESDAY 28 Tablet 11 07/01/2022 Active Entresto 24-26 MG Oral Tablet (sacubitril-valsar frazier 24-26 mg per tab)Indications:Is chemic cardiomyopathy,Hea rt failure, systolic, due to CAD (HCC) Take [...] (Lasix)Indications :Heart failure, systolic, due to CAD (HCC) Take 2 tablets by mouth in the morning. 180 Tablet 3 02/17/2023 Active Warfarin Sodium 5 MG Oral Tablet (Coumadin)Indicati ons:Atrial fibrillation (HCC) TAKE 1/2 (ONE-HALF) TABLET BY MOUTH ON WEDNESDAY, WEDNESDAY AND WEDNESDAY AND 1 TABLET ALL OTHER DAYS. 70 Tablet 3 03/08/2023 Active Rosuvastatin Calcium 5 MG Oral Tablet (Crestor)Indicatio ns:Heart failure, systolic, due to CAD (HCC),Ischemic cardiomyopathy,AIC D (automatic cardioverter/defib rillator) present,Coronary artery disease of [place] artery of [place] heart with stable angina pectoris (HCC) TAKE 1 TABLET BY MOUTH ON WEDNESDAY, WEDNESDAY AND WEDNESDAY 36 Tablet 0 05/10/2023 Active Rosuvastatin Calcium 5 MG Oral Tablet (Crestor)Indicatio ns:Heart failure, systolic, due to CAD (HCC),Ischemic cardiomyopathy,AIC D (automatic cardioverter/defib rillator) present,Coronary artery disease of [place] artery of [place] heart with stable angina pectoris (HCC) Take 1 tablet on Wed, Wed, and Wed 45 Tablet 3 04/17/2022 3 Discontinued documented as of this encounter (statuses as of 05/10/2023) Active Problems Problem Noted Date AICD (automatic cardioverter/defibrillat or) present 02/10/2013 Heart failure, systolic, due to CAD 06/2013 Ischemic cardiomyopathy 01/06/2013 Atrial fibrillation 01/06/2013 CAD (coronary artery disease) 07/25/2012 [place] (myocardial infarction) 07/25/2012 documented as of this encounter (statuses as of 05/10/2023) Immunizations Name Administration Dates Next Due COVID-19 [...] Telephone Encounter - Zulma Lay PA-C - 05/10/2023 11:59 AM EDTSigned Prescriptions: Disp Refills Rosuvastatin Calcium 5 MG Oral Tablet (Cre*36 Tab*0 Sig: TAKE 1 TABLET BY MOUTH ON WEDNESDAY, WEDNESDAY AND WEDNESDAY Authorizing Provider: ZULMA LAY * Telephone Encounter - Nasra Barrios CMA - 05/10/2023 11:33 AM EDTPending Prescriptions: Disp Refills Rosuvastatin Calcium 5 MG Oral Tablet 36 Tab*0 Sig: TAKE 1 TABLET BY MOUTH ON WEDNESDAY, WEDNESDAY AND WEDNESDAY * Telephone Encounter - Nasra Barrios CMA - 05/10/2023 11:32 AM EDT Did you pend patient's preferred pharmacy and medication before forwarding?yes Pharmacy: [facility] [phone] [address] [place] Pending Prescriptions: Disp Refills Rosuvastatin Calcium 5 MG Oral Tablet (Cr*36 Tab*0 Sig: TAKE 1 TABLET BY MOUTH ON WEDNESDAY, WEDNESDAY AND WEDNESDAY Last Visit: 01/07/2023 (in office), Visit date not found (telemedicine) Next Visit: 08/23/2023 If no future appointments scheduled, and last [...] Encounters Date Type Specialty Care Team Description 06/01/2023 [facility], [facility] [address] 08/23/2023 Office Visit Cardiology Zulma Lay PA-C [address] [place] [address] 08/31/2023 Office Visit Internal Medicine Aftab Perla MD [address] [facility] [place] [address] 03/31/2024 Cardiac Studies Cardiology [facility] [address] [place] [address] Health Maintenance Due Date Last Done Comments [...] as of this encounter Visit Diagnoses Diagnosis Heart failure, systolic, due to CAD (HCC) Unspecified systolic heart failure Ischemic cardiomyopathy Other specified forms of chronic ischemic heart disease AICD (automatic cardioverter/defibrillator) present Automatic implantable cardiac defibrillator in situ Coronary artery disease of [place] artery of [place] heart with stable angina pectoris (HCC) documented in this encounter Care Teams Food Services Director Relationship Specialty Start Date End Date Hank Oshea MD [address] [place] [address] PCP - General Internal Medicine 08/13/14 documented as of this encounter
--- OUTSIDE RECORDS SUMMARY | 2023-09-08 00:37 | External Medical Summary | Summary of Care ---
Author Name Unknown Organization [facility] Address [address] [facility] [place] [address] Phone [phone] Care Team Providers Care Emergency Service Restorer Name Role Phone Hank Oshea MD Primary Care Provider [phone] Reason for Visit * Reason Onset Date Comments Med Request 05/13/2023 Encounter Details Date Type Department Care Team Description 05/13/2023 Telephone Cardiology, [facility] [address] [place] [address] Wilmar Lay PA-C [address] [place] [address] Med Request Allergies No known active allergiesdocumented as of this encounter (statuses as of 05/13/2023) Medications Medication Sig Dispensed Refills Start Date End Date Status VITAMIN D 2000 UNITS PO TABS one tablet daily 0 Active nitroglycerin (NITROSTAT) 0.4 MG SUBLIndications:Co ronary artery disease involving [place] coronary artery of [place] heart without angina pectoris,Myocardia l infarction involving [...] Oral Tablet (Lanoxin)Indicatio ns:Coronary artery disease involving [place] coronary artery of [place] heart without angina pectoris,Chronic atrial fibrillation (HCC) [...] (automatic cardioverter/defib rillator) present,Coronary artery disease of [place] artery of [place] heart with stable angina pectoris (HCC) Take 1 Tablet by mouth once a day on Wednesday, Wednesday, and Wednesday only. TAKE 1 TABLET BY MOUTH ON WEDNESDAY, WEDNESDAY AND WEDNESDAY 39 Tablet 3 05/14/2023 Active Rosuvastatin Calcium 5 MG Oral Tablet (Crestor)Indicatio ns:Heart failure, systolic, due to CAD (HCC),Ischemic cardiomyopathy,AIC D (automatic cardioverter/defib rillator) present,Coronary artery disease of [place] artery of [place] heart with stable angina pectoris (HCC) TAKE 1 TABLET BY MOUTH ON WEDNESDAY, WEDNESDAY AND WEDNESDAY 36 Tablet 0 05/10/2023 3 Discontinue d(Refill) documented as of this encounter (statuses as of 05/13/2023) Active Problems Problem Noted Date AICD (automatic cardioverter/defibrillat or) present 02/10/2013 Heart failure, systolic, due to CAD 06/2013 Ischemic cardiomyopathy 01/06/2013 Atrial fibrillation 01/06/2013 CAD (coronary artery disease) 07/25/2012 [place] (myocardial infarction) 07/25/2012 documented as of this encounter (statuses as of 05/13/2023) Immunizations Name Administration Dates Next Due COVID-19 [...] encounter Miscellaneous Notes * Telephone Encounter - Rebel Durant LPN - 05/13/2023 1:39 PM EDT Added refills as last prescription sent with none. Did you pend patient's preferred pharmacy and medication before forwarding?yes Pharmacy: [facility] [address] [address] [place] Pending Prescriptions: Disp Refills Rosuvastatin Calcium 5 MG Oral Tablet (Cr*39 Tab*3 Sig: Take 1 Tablet by mouth once a [...] appointment Last date the medication was ordered: 05/10/23 Is this request for a controlled substance?No [...] Care Team Description 06/01/2023 Anticoagulation Pharmacy Pharmacist1, [facility] [address] [place] [address] 08/23/2023 Office Visit Cardiology Wilmar Lay PA-C [address] [place] [address] 08/31/2023 Office Visit Internal Medicine Aftab Perla MD [address] [place] [address] 03/31/2024 Cardiac Studies Cardiology [facility] [address] [place] [address] Health Maintenance Due Date Last Done Comments [...] defibrillator in situ Coronary artery disease of [place] artery of [place] heart with stable angina pectoris (HCC) documented in this encounter Care Teams Emergency Service Restorer Relationship Specialty Start Date End Date Hank Oshea MD [address] [address] PCP - General Internal Medicine 08/13/14 documented as of this encounter
--- OUTSIDE RECORDS SUMMARY | 2023-09-08 00:37 | External Medical Summary ---
Author Name Unknown Address Unknown Organization K09:[facility] [place] [address] Laboratory Report Ordering Provider Test Date Status JENNIFER LOPEZ V 04/20/2023 14:10:38 Final Therapeutic ranges for non-o perative patients:
Prophylaxsis/treatment of DVT: (Range:2.0-3.0)
Treatment of pulmonary embolism:(Range:2.0-3.0)
Prevention of systemic embolism from:
-tissue heart valves
-acute myocardial infarction
-valvular heart disease
-atrial fibrillation
(Range: 2.0-3.0)
Mechanical prosthetic valves: (Range: 2.5-3.5) Observation Date Value Abnormality Reference (Units ) Status INR in Capillary blood by Coagulation assay 04/20/2023 14:10:38 2.6 (INR) Final Performing Location [facility] [place] [address]
--- OUTSIDE RECORDS SUMMARY | 2023-09-08 00:37 | External Medical Summary | Summary of Care ---
Author Name Unknown Organization [facility] Address [address] [facility] [place] [address] Phone [phone] Care Team Providers Care Gas Furnace Installer Name Role Phone Hank Oshea MD Primary Care Provider Reason for Visit * Reason Comments eRx-Medication Refill Encounter Details Date Type Department Care Team Description 02/16/2023 Refill Cardiology, [facility] [address] [place] [address] Wilmar Lay PA-Nettie [address] [place] [address] Heart failure, systolic, due to CAD (HCC)* Allergies No known active allergiesdocumented as of this encounter (statuses as of 02/17/2023) Medications Medication Sig Dispensed Refills Start Date End Date Status VITAMIN D 2000 UNITS PO TABS one tablet daily 0 Active nitroglycerin (NITROSTAT) 0.4 MG SUBLIndications:Co ronary artery disease involving [place] coronary artery of [place] heart without angina pectoris,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 25 Tab 11 07/21/2016 Active Coenzyme Q10 (COQ10) 200 MG CAPS Take 1 Cap by mouth daily. 0 Active Cetirizine HCl 10 MG Oral Capsule Take 1 Capsule by mouth in the morning. 0 Active Warfarin Sodium 5 MG Oral Tablet (Coumadin)Indicati ons:Atrial fibrillation (HCC) TAKE 1/2 TAB MON, WED, FRI (2.5mg) AND ONE TAB (5MG) ALL OTHER DAYS 70 Tablet 3 03/06/2022 Active Rosuvastatin Calcium 5 MG Oral Tablet (Crestor)Indicatio ns:Heart failure, systolic, due to CAD (HCC),Ischemic cardiomyopathy,AIC D (automatic cardioverter/defib rillator) present,Coronary artery disease of [place] artery of [place] heart with stable angina pectoris (HCC) Take 1 tablet on Wed, Wed, and Wed 45 Tablet 3 04/17/2022 Active Digoxin 125 MCG Oral Tablet (Lanoxin)Indicatio ns:Coronary artery disease involving [place] coronary artery of [place] heart without angina pectoris,Chronic atrial fibrillation (HCC) [...] the morning. 180 Tablet 3 02/17/2023 Active Furosemide 20 MG Oral Tablet (Lasix) Take 2 Tablets by mouth in the morning. 270 Tablet 3 01/01/2022 3 Discontinued documented as of this encounter (statuses as of 02/17/2023) Active Problems Problem Noted Date AICD (automatic cardioverter/defibrillat or) present 02/10/2013 Heart failure, systolic, due to CAD 06/2013 Ischemic cardiomyopathy 01/06/2013 Atrial fibrillation 01/06/2013 CAD (coronary artery disease) 07/25/2012 [place] (myocardial infarction) 07/25/2012 documented as of this encounter (statuses as of 02/17/2023) Immunizations Name Administration Dates Next Due COVID-19 [...] encounter Miscellaneous Notes * Telephone Encounter - Wesly Mancia MD - 02/17/2023 2:08 PM EDTSigned Prescriptions: Disp Refills Furosemide 20 MG Oral Tablet (Lasix) 180 Ta*3 Sig: Take 2 tablets by mouth in the morning. Authorizing Provider: WESLY MANCIA * Telephone Encounter - JUAN Whitfield - 02/17/2023 11:28 AM EDTPending Prescriptions: Disp Refills Furosemide 20 MG Oral Tablet (Lasix) 180 Ta*3 Sig: Take 2 tablets by mouth in the morning. * Telephone Encounter - JUAN Whitfield - 02/17/2023 11:25 AM EDT Did you pend patient's preferred pharmacy and medication before forwarding?yes Pharmacy: [facility] [address] [address] [place] Pending Prescriptions: Disp Refills Furosemide 20 MG Oral Tablet (Lasix) [Pha*180 Ta*3 Sig: Take 2 tablets by mouth in the morning. Last Visit: 01/07/2023 (in office), Visit date not found (telemedicine) Next Visit: 03/25/2023 If no future appointments scheduled, and last appointment is greater than a year ago, please schedule patient for a follow-up appointment Last date the medication was ordered: 01-01-2022 Is this request for a controlled substance?No [...] Encounters Date Type Specialty Care Team Description 03/23/2023 Anticoagulation Pharmacy Pharmacist1, [facility] [address] [place] [address] 03/25/2023 Cardiac Studies Cardiology [facility] [address] [place] [address] 04/22/2023 Office Visit Cardiology Wilmar Lay PA-C [address] [place] [address] Health Maintenance Due Date Last Done Comments Pneumococcal Vaccine: 65+ Years (1 - PCV) 1941 Depression Screening, Annual for Pts 12 and Over 1947 Zoster Vaccines (1 of 2) 1984 COVID-19 Vaccine (5 - Booster for Moderna series) 06/09/2022 04/14/2022, 09/09/2021, 01/21/2021, Additional history exists DIG LEVEL FOR MEDICATION MONITORING YEARLY 06/12/2023 06/12/2022, 01/27/2022, 10/06/2021, Additional history exists TSH FOR THYROID MEDICATION MONITORING YEARLY 12/29/2023 12/29/2022, 10/28/2022, 06/12/2022, Additional history exists DTaP,Tdap,and Td Vaccines (2 - Tdap) 07/29/2027 07/29/2017 Influenza Vaccine (FLU shot) Completed 09/2022, 08/05/2021, 07/16/2020, Additional history exists GARDASIL-HPV IMMUNIZATION SERIES Aged [...] Diagnosis Heart failure, systolic, due to CAD (HCC)- Primary Unspecified systolic heart failure documented in this encounter Care Teams Gas Furnace Installer Relationship Specialty Start Date End Date Hank Oshae MD [address] [address] PCP - General Internal Medicine 08/13/14 documented as of this encounter
--- OUTSIDE RECORDS SUMMARY | 2023-09-08 00:37 | External Medical Summary | Summary of Care ---
Author Name Unknown Organization [facility] Address [address] [place] [address] Phone [phone] Care Team Providers Care Obiee Architect Name Role Phone Hank Oshea MD Primary Care Provider Reason for Visit * Reason Comments Dosage Adjustment In Person (Anticoag Cl inic) Encounter Details Date Type Department Care Team Description 04/20/2023 Anticoagulation Pharmacy, [facility] [address] [place] [address] Pharmacist1, [facility] [address] [facility] [place] [address] Myocardial infarction, unspecified [place] type, unspecified artery (HCC)*; Chronic atrial fibrillation (HCC); Atrial fibrillation, unspecified type (HCC); Anticoagulation management encounter; shelter 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 therapy Allergies No known active allergiesdocumented as of this encounter (statuses as of 04/20/2023) Medications Medication Sig Dispensed Refills Start Date End Date Status VITAMIN D 2000 UNITS PO TABS one tablet daily 0 Active nitroglycerin (NITROSTAT) 0.4 MG SUBLIndications:Salo nary artery disease involving [place] coronary artery of [place] heart without angina pectoris,Myocardial infarction involving other [...] (automatic cardioverter/defibri llator) present,Coronary artery disease of [place] artery of [place] heart with stable angina pectoris (HCC) Take 1 tablet on Wed, Wed, and Wed 45 Tablet 3 04/17/2022 Active Digoxin 125 MCG Oral Tablet (Lanoxin)Indications :Coronary artery disease involving [place] coronary artery of [place] heart without angina pectoris,Chronic atrial fibrillation (HCC) [...] as of this encounter (statuses as of 04/20/2023) Active Problems Problem Noted Date AICD (automatic cardioverter/defibrillat or) present 02/10/2013 Heart failure, systolic, due to CAD 06/2013 Ischemic cardiomyopathy 01/06/2013 Atrial fibrillation 01/06/2013 CAD (coronary artery disease) 07/25/2012 [place] (myocardial infarction) 07/25/2012 documented as of this encounter (statuses as of 04/20/2023) Immunizations Name Administration Dates Next Due COVID-19 [...] Progress Notes * Anibal Raymundo RPh - 04/20/2023 2:07 PM EDT Medication Therapy Disease Management - Anticoagulation Lucian Larson Jr. 1935 Patient Findings Negatives: Signs/symptoms of thrombosis, Signs/symptoms of bleeding, Change in health, Change in alcohol use, Change in activity, Upcoming invasive procedure, Missed doses, Extra doses, Change in medications, Change in diet/appetite, Bruising INR Result As of 04/20/2023 INR goal: 2.0-3.0 INR used for dosin.6 (04/20/2023) Warfarin Plan As of 04/20/2023 Full warfarin instructions: 2.5 mg every Mon, Wed, Fri; 5 mg all other days No change documented: Anibal Raymundo RPh Next INR check: 06/01/2023 Repeat PT/INR in 6 week(s) Weekly dose: not changed Anibal Caceres RPh, CACP, CDE Clinical Pharmacist Medication Therapy Management [facility] 04/20/2023 2:13 PM documented in this encounter Plan of Treatment Upcoming Encounters Date Type Specialty Care Team Description 06/01/2023 Anticoagulation Pharmacy Pharmacist1, [facility] [address] [facility] [place] [address] 08/23/2023 Office Visit Cardiology Wilmar Lay PA-C [address] [place] [address] 03/31/2024 Cardiac Studies Cardiology [facility] [address] [place] [address] Health Maintenance Due Date Last Done Comments [...] Comments INR FINGERSTICK, POINT OF CARE STAT 04/20/2023 2:10 PM EDT Myocardial infarction, unspecified NC type, unspecified artery (HCC) Atrial fibrillation, unspecified type (HCC) 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 documented in this encounter Results * INR FINGERSTICK, POINT OF CARE (04/20/2023 2:10 PM EDT) Fingerstick INR 2.6 INR 2:11 PM EDT [facility] 56 Blood 04/20/2023 2:10 PM EDT 04/20/2023 2:11 PM EDT Narrative [facility] 56- - 04/20/2023 2:11 PM EDT Therapeutic ranges for non-operative patients: Prophylaxsis/treatment of DVT: (Range:2.0-3.0) Treatment of pulmonary embolism:(Range:2.0-3.0) Prevention of systemic embolism from: -tissue heart valves -acute myocardial infarction -valvular heart disease -atrial fibrillation (Range: 2.0-3.0) Mechanical prosthetic valves: (Range: 2.5-3.5) Anibal Nicki V, RPh LAB POINT OF CARE TE ST DOCKED DEVICE UNSOLICITED RESULTS [facility] [address] [place] [address] documented in this encounter Visit Diagnoses Diagnosis Myocardial infarction, unspecified NC type, unspecified artery (HCC)- Primary Chronic atrial fibrillation (HCC) Atrial fibrillation Atrial fibrillation, unspecified type (HCC) Anticoagulation management encounter Encounter for therapeutic drug monitoring shelter 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 therapy documented in this encounter Care Teams Obiee Architect Relationship Specialty Start Date End Date Hank Oshea MD [address] [address] PCP - General Internal Medicine 08/13/14 documented as of this encounter
--- OUTSIDE RECORDS SUMMARY | 2023-09-08 00:37 | External Medical Summary | Summary of Care ---
Author Name Unknown Organization [facility] Address [address] [facility] [place] [address] Phone [phone] Care Team Providers Care Auto Fleet Manager Name Role Phone Hank Oshea MD Primary Care Provider Reason for Visit * Reason Comments Dosage Adjustment In Person (Anticoag Cl inic) Encounter Details Date Type Department Care Team Description 03/23/2023 Anticoagulation Pharmacy, [facility] [address] [place] [address] Pharmacist1, [facility] 200 [facility] [place] [address] Myocardial infarction, unspecified [place] type, unspecified artery (HCC)*; Chronic atrial fibrillation (HCC); Atrial fibrillation, unspecified type (HCC); Anticoagulation management encounter; 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 Allergies No known active allergiesdocumented as of this encounter (statuses as of 03/23/2023) Medications Medication Sig Dispensed Refills Start Date End Date Status VITAMIN D 2000 UNITS PO TABS one tablet daily 0 Active nitroglycerin (NITROSTAT) 0.4 MG SUBLIndications:Salo nary artery disease involving [place] coronary artery of [place] heart without angina pectoris,Myocardial infarction involving other [...] (automatic cardioverter/defibri llator) present,Coronary artery disease of [place] artery of [place] heart with stable angina pectoris (HCC) Take 1 tablet on Wed, Wed, and Wed 45 Tablet 3 04/17/2022 Active Digoxin 125 MCG Oral Tablet (Lanoxin)Indications :Coronary artery disease involving [place] coronary artery of [place] heart without angina pectoris,Chronic atrial fibrillation (HCC) [...] as of this encounter (statuses as of 03/23/2023) Active Problems Problem Noted Date AICD (automatic cardioverter/defibrillat or) present 02/10/2013 Heart failure, systolic, due to CAD 06/2013 Ischemic cardiomyopathy 01/06/2013 Atrial fibrillation 01/06/2013 CAD (coronary artery disease) 07/25/2012 [place] (myocardial infarction) 07/25/2012 documented as of this encounter (statuses as of 03/23/2023) Immunizations Name Administration Dates Next Due COVID-19 [...] Progress Notes * Anibal Raymundo RPh - 03/23/2023 10:56 AM EDT Images from the original note were not included. Medication Therapy Disease Management - Anticoagulation Lucian Larson Jr. 1935 Patient Findings Negatives: Signs/symptoms of thrombosis, Signs/symptoms of bleeding, Change in health, Change in alcohol use, Change in activity, Upcoming invasive procedure, Missed doses, Extra doses, Change in medications, Change in diet/appetite, Bruising INR Result As of 03/23/2023 INR goal: 2.0-3.0 INR used for dosin.4 (03/23/2023) Warfarin Plan As of 03/23/2023 Full warfarin instructions: 03/23: 10 mg; Otherwise 2.5 mg every Mon, Wed, Fri; 5 mg all other days Next INR check: 04/20/2023 Repeat PT/INR in 4 week(s) Weekly dose: not changed Anibal Caceres RPh, CACP, CDE Clinical Pharmacist Medication Therapy Management Clinic 03/23/2023 11:01 AM documented in this encounter Plan of Treatment Upcoming Encounters Date Type Specialty Care Team Description 03/25/2023 Cardiac Studies [facility]iology [facility] [address] [place] [phone] 04/20/2023 Anticoagulation Pharmacy Pharmacist1, [facility] [address] [place] [address] 04/22/2023 Office Visit Cardiology Wilmar Lay PA-C [address] [place] [address] Health Maintenance Due Date Last Done Comments Pneumococcal Vaccine: 65+ Years (1 - PCV) 1941 Depression Screening, Annual for Pts 12 and Over 1947 COVID-19 Vaccine (5 - Booster for Moderna [...] Comments INR FINGERSTICK, POINT OF CARE STAT 03/23/2023 10:59 AM EDT Myocardial infarction, unspecified SC type, unspecified artery (HCC) Atrial fibrillation, unspecified type (HCC) Anticoagulation management encounter senior living 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 therapy documented in this encounter Results * INR FINGERSTICK, POINT OF CARE (03/23/2023 10:59 AM EDT) Fingerstick INR 1.4 INR 11:00 AM EDT [facility] 56- Blood 03/23/2023 10:5 9 AM EDT 03/23/2023 11:00 AM EDT Narrative [facility] 56- - 03/23/2023 11:00 AM EDT Therapeutic ranges for non-operative patients: Prophylaxsis/treatment of DVT: (Range:2.0-3.0) Treatment of pulmonary embolism:(Range:2.0-3.0) Prevention of systemic embolism from: -tissue heart valves -acute myocardial infarction -valvular heart disease -atrial fibrillation (Range: 2.0-3.0) Mechanical prosthetic valves: (Range: 2.5-3.5) Anibal Nicki V, RPh LAB POINT OF CARE TE ST DOCKED DEVICE UNSOLICITED RESULTS [facility] [address] [place] [address] documented in this encounter Visit Diagnoses Diagnosis Myocardial infarction, unspecified SC type, unspecified artery (HCC)- Primary Chronic atrial fibrillation (HCC) Atrial fibrillation Atrial fibrillation, unspecified type (HCC) Anticoagulation management encounter Encounter for therapeutic drug monitoring 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
--- OUTSIDE RECORDS SUMMARY | 2023-09-08 00:37 | External Medical Summary | Summary of Care ---
Author Name Unknown Organization [facility] Address [address] [facility] [place] [address] Phone [phone] Care Team Providers Care National Accounts Recruiter Name Role Phone Hank Oshea MD Primary Care Provider [phone] Encounter Details Date Type Department Care Team Description 03/31/2023 Result Scan Unspecified Department Denis Langston MD [address] [place] [address] <No scans attached> Allergies No known active allergiesdocumented as of this encounter (statuses as of 04/08/2023) Medications Medication Sig Dispensed Refills Start Date End Date Status VITAMIN D 2000 UNITS PO TABS one tablet daily 0 Active nitroglycerin (NITROSTAT) 0.4 MG SUBLIndications:Salo nary artery disease involving [place] coronary artery of [place] heart without angina pectoris,Myocardial infarction involving other [...] (automatic cardioverter/defibri llator) present,Coronary artery disease of [place] artery of [place] heart with stable angina pectoris (HCC) Take 1 tablet on Mon, Wed, and Wed 45 Tablet 3 04/17/2022 Active Digoxin 125 MCG Oral Tablet (Lanoxin)Indications :Coronary artery disease involving [place] coronary artery of [place] heart without angina pectoris,Chronic atrial fibrillation (HCC) [...] as of this encounter (statuses as of 04/08/2023) Active Problems Problem Noted Date AICD (automatic cardioverter/defibrillat or) present 02/10/2013 Heart failure, systolic, due to CAD 06/2013 Ischemic cardiomyopathy 01/06/2013 Atrial fibrillation 01/06/2013 CAD (coronary artery disease) 07/25/2012 [place] (myocardial infarction) 07/25/2012 documented as of this encounter (statuses as of 04/08/2023) Immunizations Name Administration Dates Next Due COVID-19 [...] Care Team Description 04/20/2023 Anticoagulation Pharmacy Pharmacist1, [facility] [address] [facility] [address] 04/22/2023 Office Visit Cardiology Wilmar Lay PA-C [address] [place] [address] 03/31/2024 Cardiac Studies [facility] [address] [place] [address] Health Maintenance Due Date Last Done Comments [...] Date/Time Associated Diagnosis Comments CARDIOLOGY SCANNED RESULT 03/31/2023 documented in this encounter Results * CARDIOLOGY SCANNED RESULT (03/31/2023) 03/31/2023 Denis Langston MD OTHER documented in this encounter Care Teams National Accounts Recruiter Relationship Specialty Start Date End Date Hank Oshea MD [address] [place] [address] PCP - General Internal Medicine 08/13/14 documented as of this encounter
--- OUTSIDE RECORDS SUMMARY | 2023-09-08 00:37 | External Medical Summary | Summary of Care ---
Author Name Unknown Organization [facility] Address [address] [facility] [place] [address] Phone [phone] Care Team Providers Care Food And Nutrition Supervisor Name Role Phone Hank Oshea MD Primary Care Provider [phone] Encounter Details Date Type Department Care Team Description 02/11/2023 Result Scan Unspecified Department Denis Langston MD [address] [place] [address] <No scans attached> Allergies No known active allergiesdocumented as of this encounter (statuses as of 02/11/2023) Medications Medication Sig Dispensed Refills Start Date End Date Status VITAMIN D 2000 UNITS PO TABS one tablet daily 0 Active nitroglycerin (NITROSTAT) 0.4 MG SUBLIndications:Coron [place] artery disease involving [place] coronary artery of [place] heart without angina pectoris,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 25 Tab 11 07/21/2016 Active Coenzyme Q10 (COQ10) 200 MG CAPS Take 1 Cap by mouth daily. 0 Active Cetirizine HCl 10 MG Oral Capsule Take 1 Capsule by mouth in the morning. 0 Active Furosemide 20 MG Oral Tablet (Lasix) Take 2 Tablets by mouth in the morning. 270 Tablet 3 01/01/2022 Active Warfarin Sodium 5 MG Oral Tablet (Coumadin)Indications :Atrial fibrillation (HCC) TAKE 1/2 TAB MON, WED, FRI (2.5mg) AND ONE TAB (5MG) ALL OTHER DAYS 70 Tablet 3 03/06/2022 Active Rosuvastatin Calcium 5 MG Oral Tablet (Crestor)Indications: Heart failure, systolic, due to CAD (HCC),Ischemic cardiomyopathy,AICD (automatic cardioverter/defibril lator) present,Coronary artery disease of [place] artery of [place] heart with stable angina pectoris (HCC) Take 1 tablet on Mon, Wed, and Wed 45 Tablet 3 04/17/2022 Active Digoxin 125 MCG Oral Tablet (Lanoxin)Indications: Coronary artery disease involving [place] coronary artery of [place] heart without angina pectoris,Chronic atrial fibrillation (HCC) TAKE ONE TABLET BY MOUTH ON WEDNESDAY, WEDNESDAY AND WEDNESDAY 28 Tablet 11 07/01/2022 Active Entresto 24-26 MG Oral Tablet (sacubitril-valsartan 24-26 mg per tab)Indications:Ische maryam cardiomyopathy,Heart failure, systolic, due to CAD (HCC) Take 1/2 tab each am and pm 90 Tablet 3 09/07/2022 Active Levothyroxine Sodium 75 MCG Oral Tablet (Levoxyl) Take 1 Tablet by mouth in the morning. 0 10/22/2022 Active Clopidogrel Bisulfate 75 MG Oral Tablet (pLAVix)Indications:P ermanent atrial fibrillation (HCC) Take 1 tablet by mouth once daily 90 Tablet 3 12/29/2022 Active Metoprolol Succinate ER 50 MG Oral Tablet Extended Release 24 Hour (toPROL XL)Indications:Atrial fibrillation, unspecified type (HCC) Take 2 in the morning , 1 1/2 in the evening 315 Tablet 3 01/07/2023 Active documented as of this encounter (statuses as of 02/11/2023) Active Problems Problem Noted Date AICD (automatic cardioverter/defibrillat or) present 02/10/2013 Heart failure, systolic, due to CAD 06/2013 Ischemic cardiomyopathy 01/06/2013 Atrial fibrillation 01/06/2013 CAD (coronary artery disease) 07/25/2012 [place] (myocardial infarction) 07/25/2012 documented as of this encounter (statuses as of 02/11/2023) Immunizations Name Administration Dates Next Due COVID-19 [...] Care Team Description 03/23/2023 Anticoagulation Pharmacy Pharmacist1, [facility] [address] [facility], [place] [id number] 03/25/2023 Cardiac Studies [facility]iology [facility] [address] [place] [address] 04/22/2023 Office Visit Cardiology Wilmar Lay PA-C [address] [place] [phone] Health Maintenance Due Date Last Done Comments [...] Date/Time Associated Diagnosis Comments CARDIOLOGY SCANNED RESULT 02/11/2023 documented in this encounter Results * CARDIOLOGY SCANNED RESULT (02/11/2023) 02/11/2023 Denis Langston MD OTHER documented in this encounter Care Teams Food And Nutrition Supervisor Relationship Specialty Start Date End Date Hank Oshea MD [address] [place] [address] PCP - General Internal Medicine 08/13/14 documented as of this encounter
--- OUTSIDE RECORDS SUMMARY | 2023-09-08 00:37 | External Medical Summary | Summary of Care ---
Author Name Unknown Organization [facility] Address [address] [facility] [place] [address] Phone [phone] Care Team Providers Care Oncology Navigator Name Role Phone Hank Oshea MD Primary Care Provider [phone] Encounter Details Date Type Department Care Team Description 05/12/2023 Result Scan Unspecified Department Denis Langston MD [address] [place], [place] [id number] <No scans attached> Allergies No known active allergiesdocumented as of this encounter (statuses as of 05/12/2023) Medications Medication Sig Dispensed Refills Start Date End Date Status VITAMIN D 2000 UNITS PO TABS one tablet daily 0 Active nitroglycerin (NITROSTAT) 0.4 MG SUBLIndications:Salo nary artery disease involving [place] coronary artery of [place] heart without angina pectoris,Myocardial infarction involving other [...] Oral Tablet (Lanoxin)Indications :Coronary artery disease involving [place] coronary artery of [place] heart without angina pectoris,Chronic atrial fibrillation (HCC) [...] (automatic cardioverter/defibri llator) present,Coronary artery disease of [place] artery of [place] heart with stable angina pectoris (HCC) TAKE 1 TABLET BY MOUTH ON WEDNESDAY, WEDNESDAY AND WEDNESDAY 36 Tablet 0 05/10/2023 Active documented as of this encounter (statuses as of 05/12/2023) Active Problems Problem Noted Date AICD (automatic cardioverter/defibrillat or) present 02/10/2013 Heart failure, systolic, due to CAD 06/2013 Ischemic cardiomyopathy 01/06/2013 Atrial fibrillation 01/06/2013 CAD (coronary artery disease) 07/25/2012 [place] (myocardial infarction) 07/25/2012 documented as of this encounter (statuses as of 05/12/2023) Immunizations Name Administration Dates Next Due COVID-19 [...] Care Team Description 06/01/2023 Anticoagulation Pharmacy Pharmacist1, [facility] [address] [place] [address] 08/23/2023 Office Visit Cardiology Wilmar Lay PA-C [address] [place] [address] 08/31/2023 Office Visit Internal Medicine Aftab Perla MD [address] [facility] [place] [address] 03/31/2024 Cardiac Studies Cardiology [facility] [address] [facility] [place] [address] Health Maintenance Due Date Last Done Comments [...] Date/Time Associated Diagnosis Comments CARDIOLOGY SCANNED RESULT 05/12/2023 documented in this encounter Results * CARDIOLOGY SCANNED RESULT (05/12/2023) 05/12/2023 Denis Langston MD OTHER documented in this encounter Care Teams Oncology Navigator Relationship Specialty Start Date End Date Hank Oshea MD [address] [place] [address] PCP - General Internal Medicine 08/13/14 documented as of this encounter
--- OUTSIDE RECORDS SUMMARY | 2023-09-08 00:37 | External Medical Summary ---
Author Name Unknown Address Unknown Organization K[facility] [place] [address] Laboratory Report Ordering Provider Test Date Status JENNIFER LOPEZ V 03/23/2023 10:59:08 Final Therapeutic ranges for non-o perative patients:
Prophylaxsis/treatment of DVT: (Range:2.0-3.0)
Treatment of pulmonary embolism:(Range:2.0-3.0)
Prevention of systemic embolism from:
-tissue heart valves
-acute myocardial infarction
-valvular heart disease
-atrial fibrillation
(Range: 2.0-3.0)
Mechanical prosthetic valves: (Range: 2.5-3.5) Observation Date Value Abnormality Reference (Units ) Status INR in Capillary blood by Coagulation assay 03/23/2023 10:59:08 1.4 (INR) Final Performing Location [facility] [place] [address]
--- OUTSIDE RECORDS SUMMARY | 2023-09-08 00:38 | External Medical Summary | Summary of Care ---
Author Name Unknown Organization [facility] Address [address] [facility] [place] [address] Phone [phone] Care Team Providers Care Career Guidance Technician Name Role Phone Hank Oshea MD Primary Care Provider [phone] Reason for Visit * Reason Comments Follow Up Encounter Details Date Type Department Care Team Description 01/07/2023 Office Visit Cardiology, [facility] [place] [address] [place] [phone] Denis Langston MD [address] [place] [address] Ischemic cardiomyopathy*; Atrial fibrillation, unspecified type (HCC); ICD (implantable cardioverter-defibrill ator), single, in situ Allergies No known active allergiesdocumented as of this encounter (statuses as of 01/07/2023) Medications Medication Sig Dispensed Refills Start Date End Date Status VITAMIN D 2000 UNITS PO TABS one tablet daily 0 Active nitroglycerin (NITROSTAT) 0.4 MG SUBLIndications:Co ronary artery disease involving [place] coronary artery of [place] heart without angina pectoris,Myocardia l infarction involving [...] (Coumadin)Indicati ons:Atrial fibrillation (HCC) TAKE 1/2 TAB WED, WED, WED (2.5mg) AND ONE TAB (5MG) ALL OTHER DAYS 70 Tablet 3 03/06/2022 Active Rosuvastatin Calcium 5 MG Oral Tablet (Crestor)Indicatio ns:Heart failure, systolic, due to CAD (HCC),Ischemic cardiomyopathy,AIC D (automatic cardioverter/defib rillator) present,Coronary artery disease of [place] artery of [place] heart with stable angina pectoris (HCC) Take 1 tablet on Wed, Wed, and Wed 45 Tablet 3 04/17/2022 Active Digoxin 125 MCG Oral Tablet (Lanoxin)Indicatio ns:Coronary artery disease involving [place] coronary artery of [place] heart without angina pectoris,Chronic atrial fibrillation (HCC) TAKE ONE TABLET BY MOUTH ON WEDNESDAY, WEDNESDAY AND WEDNESDAY 28 Tablet 11 07/01/2022 Active Entresto 24-26 MG Oral Tablet (sacubitril-valsar fraizer 24-26 mg per tab)Indications:Is chemic cardiomyopathy,Hea rt [...] the evening 315 Tablet 3 01/07/2023 Active Metoprolol Succinate ER 50 MG Oral Tablet Extended Release 24 Hour (toPROL XL)Indications:Atr ial fibrillation, unspecified type (HCC) Take 1.5 Tablets by mouth in the morning and 1.5 Tablets before bedtime. 270 Tablet 3 10/28/2022 3 Discontinued documented as of this encounter (statuses as of 01/07/2023) Active Problems Problem Noted Date AICD (automatic cardioverter/defibrillat or) present 02/10/2013 Heart failure, systolic, due to CAD 06/2013 Ischemic cardiomyopathy 01/06/2013 Atrial fibrillation 01/06/2013 CAD (coronary artery disease) 07/25/2012 IA (myocardial infarction) 07/25/2012 documented as of this encounter (statuses as of 01/07/2023) Immunizations Name Administration Dates Next Due COVID-19 [...] Sign Reading Time Taken Comments Blood Pressure 112/66 01/07/2023 11:30 AM EST Pulse 112 01/07/2023 11:30 AM EST Temperature 36.5 C (97.7 F) 01/07/2023 11:[address] Respiratory Rate 20 01/07/2023 11:30 AM EST Oxygen Saturation 92% 01/07/2023 11:30 AM EST Inhaled Oxygen Concentration - - Weight 77.8 kg (171 lb 9.6 oz) 01/07/2023 11:30 AM EST Height - - Body Mass Index 24.62 01/13/2022 12:34 PM EDT documented in this encounter Progress Notes * Denis Langston MD - 01/07/2023 11:53 AM EST January 07, 2023 Cardiology Follow Up Referring Provider: PCP: HANK OSHEA [address] [place] [address] [phone] Chief Complaint: Follow-up ischemic cardiomyopathy SUBJECTIVE: Lucian Larson Jr. is a 85 year old year old male with ongoing cardiac issues 1. 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 2. Ischemic cardiomyopathy EF 20 to 25% with chronic systolic heart failure 3. Single lead prophylactic pacer/ cardiac defibrillator in January 2013. Generator exchange December 2021 4. Acute decompensation in the setting of elevated heart rate, receiving stenting to the recannulated left anterior descending and attempted stent into the proximal right coronary artery in May 2014. 5. Chronic atrial fibrillation/flutter 6. Hyperlipidemia, on therapy. Patient presents today doing relatively well. Denies any signs or symptoms of congestive heart failure. Weight has been stable. No worsening edema. No chest pains, dizziness, lightheadedness syncope or near syncope. No tachy palpitations. No defibrillator activation. No irritation at device insertion site He has been aware of chroni pain at prior area of excoriation on right metatarsal Patient Active Problem List Diagnosis Code CAD (coronary artery disease) I25.10 IA (myocardial infarction) ([facility]) I21.9 Heart failure, systolic, due to CAD ([facility]) I50.20, I25.10 Ischemic cardiomyopathy I25.5 Atrial fibrillation ([facility]) I48.91 AICD (automatic cardioverter/defibrillator) present Z95.810 Review [...] 1 Capsule by mouth in the morning. Furosemide 20 MG Oral Tablet (Lasix) Take 2 Tablets by mouth in the morning. 270 Tablet 3 Warfarin Sodium 5 MG Oral Tablet (Coumadin) TAKE 1/2 TAB MON, WED, WED (2.5mg) AND ONE TAB (5MG) ALL OTHER DAYS 70 Tablet 3 Rosuvastatin Calcium 5 MG Oral Tablet (Crestor) Take 1 tablet on Wed, Wed, and Wed 45 Tablet 3 Digoxin 125 MCG Oral Tablet (Lanoxin) TAKE ONE TABLET BY MOUTH ON WEDNESDAY, WEDNESDAY AND WEDNESDAY 28 Tablet 11 Entresto 24-26 MG Oral Tablet (sacubitril-valsartan 24-26 mg per tab) Take 1/2 tab each am and pm 90 Tablet 3 Levothyroxine Sodium 75 MCG Oral Tablet (Levoxyl) Take 1 Tablet by mouth in the morning. Metoprolol Succinate ER 50 MG Oral Tablet Extended Release 24 Hour (toPROL XL) Take 1.5 Tabletsby mouth in the morning and 1.5 Tablets before bedtime. 270 Tablet 3 Clopidogrel Bisulfate 75 MG Oral Tablet (pLAVix) Take 1 tablet by mouth once daily 90 Tablet 3 No current facility-administered medications for this visit. OBJECTIVE/PHYSICAL EXAMINATION: BP 112/66 (BP Site: Left Arm, BP Position: Sitting, BP Cuff Size: Regular) | Pulse 112 | Temp 36.5 C (97.7 F) | Resp 20 | Wt 77.8 kg (171 lb 9.6 oz) | SpO2 92% | BMI 24.62 kg/m | BSA 1.96 m General: Age-appropriate male in no acute distress Head: normocephalic, no masses, lesions, tenderness or abnormalities Eyes: conjunctiva are pink and non-injected, sclera clear Throat: clear Nares: without discharge Neck: supple, no adenopathy, no bruits, normal jugular venous pulse, no hepatojugular reflux, no carotid bruits Chest: normal shape and normal respiratory effort , defibrillator site without tenderness Lungs: clear to auscultation and percussion Cardiac Exam: -irregular no murmur, gallop or rub - normal S-1, normal S-2 Abdomen: abdomen soft, non-tender, no abnormal masses, no hepatosplenomegaly, no abdominal bruit, no femoral bruit Musculoskeletal: no gait disturbance, no joint inflammation, no deforming arthritis Extremities: Trivial only edema, no cyanosis, pulses intact 2+/4 Callus and abraded site over left metatarsal Neuro: grossly normal exam Data: Pacemaker defibrillator interrogation December 13, 2022 No high rate episodes of significance No device discharge 6% ventricular pacing Lipid Panel Results: February 07, 2021: LDL 67, HDL 52 ASSESSMENT: 87 year old year old male with chronic stable ischemic heart disease and Ischemic cardiomyopathy with stable compensated chronic congestive heart failure on optimal medicalregimen including Entresto, metoprolol succinate, rosuvastatin and clopidogrel. Patient appropriately anticoagulated with warfarin for atrial fibrillation No change in cardiac status PLAN: Increase metoprolol succinate to 100 mg a.m., 75 mg p.m. for further heart rate, blood pressure control and antiarrhythmic therapy Recommended podiatry appointment DISPOSITION: Return 6 months time or symptoms dictate otherwise Denis Langston MD Cardiology, [facility] [place] [address] [facility] [place] [address] documented in this encounter Nursing Notes * Eva Ortiz CMA - 01/07/2023 11:27 AM EST Examination Room: 14 Name: Lucian Rodolfo Larson Jr. Date of : (1935). Reason for Visit: 3M f/u Interim Hospitalization(s): none Problems/Concerns: States he has been having "problems" with his feet, more so on L foot. States L great toe had a wound that has healed but toes are still sore. Chest Pain/SOB: Denies unusual SOB [facility] Discussed: Not applicable [facility] is a way you can talk to [...] Encounters Date Type Specialty Care Team Description 02/09/2023 Anticoagulation Pharmacy Pharmacist1, [facility] [address] [place] [address] 03/25/2023 Cardiac Studies Cardiology [place], [facility] [address] [facility] [place] [address] 04/22/2023 Office Visit Cardiology Wilmar Lay PA-C [address] [place] [address] Health Maintenance Due Date Last Done Comments [...] specified forms of chronic ischemic heart disease Atrial fibrillation, unspecified type (HCC) ICD (implantable cardioverter-defibrillator), single, in situ documented in this encounter Care Teams Career Guidance Technician Relationship Specialty Start Date End Date Hank Oshea MD [address] [place] [address] PCP - General Internal Medicine 08/13/14 documented as of this encounter
--- OUTSIDE RECORDS SUMMARY | 2023-09-08 00:38 | External Medical Summary | Summary of Care ---
Author Name Unknown Organization [facility] Address [address] [facility] [address] Phone [phone] Care Team Providers Care Resistor Winder Name Role Phone Hank Oshea MD Primary Care Provider Reason for Visit * Reason Comments Outpatient Testing Encounter Details Date Type Department Care Team Description 12/29/2022 Laboratory Laboratory [facility] [address] [place] [address] [facility] [address] [place] [address] Acquired hypothyroidism Allergies No known active allergiesdocumented as of this encounter (statuses as of 12/29/2022) Medications Medication Sig Dispensed Refills Start Date End Date Status VITAMIN D 2000 UNITS PO TABS one tablet daily 0 Activ e nitroglycerin (NITROSTAT) 0.4 MG SUBLIndications:Cor onary artery disease involving [place] coronary artery of [place] heart without angina pectoris,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 25 Tab 11 07/21/2016 Active Additional Information Patient not taking.Reported on 10/28/2022 Coenzyme Q10 (COQ10) 200 MG CAPS Take 1 Cap by mouth daily. 0 Active Cetirizine HCl 10 MG Oral Capsule Take 1 Capsule by mouth in the morning. 0 Active Clopidogrel Bisulfate 75 MG Oral Tablet (pLAVix)Indications :Permanent atrial fibrillation (HCC) Take 1 Tablet by mouth daily. 90 Tablet 3 10/06/2021 Active Furosemide 20 MG Oral Tablet (Lasix) Take 2 Tablets by mouth in the morning. 270 Tablet 3 01/01/2022 Active Warfarin Sodium 5 MG Oral Tablet (Coumadin)Indicatio ns:Atrial fibrillation (HCC) TAKE 1/2 TAB MON, WED, WED (2.5mg) AND ONE TAB (5MG) ALL OTHER DAYS 70 Tablet 3 03/06/2022 Active Rosuvastatin Calcium 5 MG Oral Tablet (Crestor)Indication s:Heart failure, systolic, due to CAD (HCC),Ischemic cardiomyopathy,AICD (automatic cardioverter/defibr illator) present,Coronary artery disease of [place] artery of [place] heart with stable angina pectoris (HCC) Take 1 tablet on Mon, Wed, and Wed 45 Tablet 3 04/17/2022 Active Digoxin 125 MCG Oral Tablet (Lanoxin)Indication s:Coronary artery disease involving [place] coronary artery of [place] heart without angina pectoris,Chronic atrial fibrillation (HCC) TAKE ONE TABLET BY MOUTH ON WEDNESDAY, WEDNESDAY AND WEDNESDAY 28 Tablet 11 07/01/2022 Active Entresto 24-26 MG Oral Tablet (sacubitril-valsart an 24-26 mg per tab)Indications:Isc hemic cardiomyopathy,Hear t failure, systolic, due to CAD (HCC) Take 1/2 tab each am and pm 90 Tablet 3 09/07/2022 Active Levothyroxine Sodium 75 MCG Oral Tablet (Levoxyl) Take 1 Tablet by mouth in the morning. 0 10/22/2022 Active Metoprolol Succinate ER 50 MG Oral Tablet Extended Release 24 Hour (toPROL XL)Indications:Atri al fibrillation, unspecified type (HCC) Take 1.5 Tablets by mouth in the morning and 1.5 Tablets before bedtime. 270 Tablet 3 10/28/2022 Active documented as of this encounter (statuses as of 12/29/2022) Active Problems Problem Noted Date AICD (automatic cardioverter/defibrillat or) present 02/10/2013 Heart failure, systolic, due to CAD 06/2013 Ischemic cardiomyopathy 01/06/2013 Atrial fibrillation 01/06/2013 CAD (coronary artery disease) 07/25/2012 AR (myocardial infarction) 07/25/2012 documented as of this encounter (statuses as of 12/29/2022) Immunizations Name Administration Dates Next Due COVID-19 [...] Encounters Date Type Specialty Care Team Description 12/29/2022 Anticoagulation Pharmacy Pharmacist1, [facility] [address] [facility], [place] [id number] Myocardial infarction, unspecified AR type, unspecified artery (HCC)*; Chronic atrial fibrillation (HCC) 01/07/2023 Office Visit Cardiology Denis Langston MD [address] [place] [address] 03/25/2023 Cardiac Studies Cardiology [facility] [address] [place] [address] Pending Results Name Type Priority Associated Diagnoses Date /Time TSH Lab Routine Acquired hypothyroidism 12/29/2022 10:53 AM EST Health Maintenance Due Date Last Done Comments [...] exists TSH FOR THYROID MEDICATION MONITORING YEARLY 10/28/2023 10/28/2022, 06/12/2022, 10/06/2021, Additional history exists DTaP,Tdap,and Td Vaccines (2 [...] as of this encounter Visit Diagnoses Diagnosis Acquired hypothyroidism Unspecified hypothyroidism Myocardial infarction, unspecified AR type, unspecified artery (HCC)- Primary Chronic atrial fibrillation (HCC) Atrial fibrillation documented in this encounter Care Teams Resistor Winder Relationship Specialty Start Date End Date Hank Oshea MD [address] [place] [address] PCP - General Internal Medicine 08/13/14 documented as of this encounter
--- OUTSIDE RECORDS SUMMARY | 2023-09-08 00:38 | External Medical Summary ---
Author Name Unknown Address Unknown Organization K09:[facility] [place] [address] Laboratory Report Ordering Provider Test Date Status JENNIFER LOPEZ V 02/09/2023 11:03:11 Final Therapeutic ranges for non-o perative patients:
Prophylaxsis/treatment of DVT: (Range:2.0-3.0)
Treatment of pulmonary embolism:(Range:2.0-3.0)
Prevention of systemic embolism from:
-tissue heart valves
-acute myocardial infarction
-valvular heart disease
-atrial fibrillation
(Range: 2.0-3.0)
Mechanical prosthetic valves: (Range: 2.5-3.5) Observation Date Value Abnormality Reference (Units ) Status INR in Capillary blood by Coagulation assay 02/09/2023 11:03:11 2.6 (INR) Final Performing Location [facility] [place] [id number]
--- OUTSIDE RECORDS SUMMARY | 2023-09-08 00:38 | External Medical Summary | Summary of Care ---
Author Name Unknown Organization [facility] Address [address] [facility] [address] Phone [phone] Care Team Providers Care Booster Station Operator Name Role Phone Hank Oshea MD Primary Care Provider [phone] Reason for Visit * Reason Comments Dosage Adjustment In Person (Anticoag Cl inic) Encounter Details Date Type Department Care Team Description 12/29/2022 Anticoagulation Pharmacy, [facility] [address] [facility] [place] [address] Pharmacist1, [facility] [address] [facility] [place] [address] Myocardial infarction, unspecified [place] type, unspecified artery (HCC)*; Chronic atrial fibrillation (HCC); Atrial fibrillation, unspecified type (HCC); Anticoagulation management encounter; director long term care 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 therapy Allergies No known active allergiesdocumented as of this encounter (statuses as of 12/29/2022) Medications Medication Sig Dispensed Refills Start Date End Date Status VITAMIN D 2000 UNITS PO TABS one tablet daily 0 Activ e nitroglycerin (NITROSTAT) 0.4 MG SUBLIndications:Cor onary artery disease involving [place] coronary artery of [place] heart without angina pectoris,Myocardial infarction involving other [...] (automatic cardioverter/defibr illator) present,Coronary artery disease of [place] artery of [place] heart with stable angina pectoris (HCC) Take 1 tablet on Wed, Wed, and Wed 45 Tablet 3 04/17/2022 Active Digoxin 125 MCG Oral Tablet (Lanoxin)Indication s:Coronary artery disease involving [place] coronary artery of [place] heart without angina pectoris,Chronic atrial fibrillation (HCC) [...] fibrillation 01/06/2013 CAD (coronary artery disease) 07/25/2012 VA (myocardial infarction) 07/25/2012 documented as of this [...] Progress Notes * Anibal Raymundo RPh - 12/29/2022 11:08 AM EST Images from the original note were not included. Medication Therapy Disease Management - Anticoagulation Lucian Larson Jr. 1935 Patient Findings Negatives: Signs/symptoms of thrombosis, Signs/symptoms of bleeding, Change in health, Change in alcohol use, Change in activity, Upcoming invasive procedure, Missed doses, Extra doses, Change in medications, Change in diet/appetite, Bruising INR Result As of 12/29/2022 INR goal: 2.0-3.0 INR used for dosin.9 (12/29/2022) Warfarin Plan As of 12/29/2022 Full warfarin instructions: 2.5 mg every Mon, Wed, Fri; 5 mg all other days No change documented: Anibal Raymundo RPh Next INR check: 02/09/2023 Repeat PT/INR in 6 week(s) Weekly dose: not changed Anibal Caceres RPh, CACP, CDE Clinical Pharmacist Medication Therapy Management Clinic 12/29/2022 11:14 AM documented in this encounter Plan of Treatment Upcoming Encounters Date Type Specialty Care Team Description 01/07/2023 Office Visit Cardiology Denis Langston MD [address] [place] [address] 02/09/2023 Anticoagulation Pharmacy Pharmacist1, [facility] [address] [facility] [place] [address] 03/25/2023 Cardiac Studies [facility]iology [facility] [address] [place] [address] Health Maintenance Due Date Last Done Comments [...] Comments INR FINGERSTICK, POINT OF CARE STAT 12/29/2022 11:11 AM EST Myocardial infarction, unspecified VA type, unspecified artery (HCC) Atrial fibrillation, unspecified type (HCC) Anticoagulation management encounter assisted 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 therapy documented in this encounter Results * INR FINGERSTICK, POINT OF CARE (12/29/2022 11:11 AM EST) Fingerstick INR 1.9 INR 11:12 AM EST [facility] 56-02 Blood 12/29/2022 11:1 1 AM EST 12/29/2022 11:12 AM EST Narrative [facility] 56-02 - 12/29/2022 11:12 AM EST Therapeutic ranges for non-operative patients: Prophylaxsis/treatment of DVT: (Range:2.0-3.0) Treatment of pulmonary embolism:(Range:2.0-3.0) Prevention of systemic embolism from: -tissue heart valves -acute myocardial infarction -valvular heart disease -atrial fibrillation (Range: 2.0-3.0) Mechanical prosthetic valves: (Range: 2.5-3.5) Anibal Nicki V, RPh LAB POINT OF CARE TE ST DOCKED DEVICE UNSOLICITED RESULTS [facility] [address] [place] [address] documented in this encounter Visit Diagnoses Diagnosis Myocardial infarction, unspecified [place] type, unspecified artery (HCC)- Primary Chronic atrial fibrillation (HCC) Atrial fibrillation Atrial fibrillation, unspecified type (HCC) Anticoagulation management encounter Encounter for therapeutic drug monitoring director long term care 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 therapy documented in this encounter Care Teams Booster Station Operator Relationship Specialty Start Date End Date Hank Oshea MD [address] [address] PCP - General Internal Medicine 08/13/14 documented as of this encounter
--- OUTSIDE RECORDS SUMMARY | 2023-09-08 00:38 | External Medical Summary | Summary of Care ---
Author Name Unknown Organization [place] [address] Care Team Providers Care Crop And Soil Scientist Name Role Phone Hank Oshea MD Primary Care Provider [phone] Encounter Details Date Type Department Care Team Description 12/18/2022 Result Scan Unspecified Department Denis Langston MD [address] [place], [place] [id number] <No scans attached> Allergies No known active allergiesdocumented as of this encounter (statuses as of 12/18/2022) Medications Medication Sig Dispensed Refills Start Date End Date Status VITAMIN D 2000 UNITS PO TABS one tablet daily 0 Activ e nitroglycerin (NITROSTAT) 0.4 MG SUBLIndications:Cor onary artery disease involving [place] coronary artery of [place] heart without angina pectoris,Myocardial infarction involving other [...] (automatic cardioverter/defibr illator) present,Coronary artery disease of [place] artery of [place] heart with stable angina pectoris (HCC) Take 1 tablet on Wed, Wed, and Wed 45 Tablet 3 04/17/2022 Active Digoxin 125 MCG Oral Tablet (Lanoxin)Indication s:Coronary artery disease involving [place] coronary artery of [place] heart without angina pectoris,Chronic atrial fibrillation (HCC) [...] as of this encounter (statuses as of 12/18/2022) Active Problems Problem Noted Date AICD (automatic cardioverter/defibrillat or) present 02/10/2013 Heart failure, systolic, due to CAD 06/2013 Ischemic cardiomyopathy 01/06/2013 Atrial fibrillation 01/06/2013 CAD (coronary artery disease) 07/25/2012 [place] (myocardial infarction) 07/25/2012 documented as of this encounter (statuses as of 12/18/2022) Immunizations Name Administration Dates Next Due COVID-19 [...] Date Type Specialty Care Team Description 12/29/2022 Laboratory Laboratory [place], [facility] [address] [place] [address] 12/29/2022 Anticoagulation Pharmacy Pharmacist, [facility] [address] [place] [address] 01/07/2023 Office Visit Cardiology Denis Langston MD [address] [place] [address] 03/25/2023 Cardiac Studies Cardiology [facility] [address] [place] [address] Health Maintenance Due Date Last Done Comments [...] Date/Time Associated Diagnosis Comments CARDIOLOGY SCANNED RESULT 12/18/2022 documented in this encounter Results * CARDIOLOGY SCANNED RESULT (12/18/2022) 12/18/2022 Denis Langston MD OTHER documented in this encounter Care Teams Crop And Soil Scientist Relationship Specialty Start Date End Date Hank Oshea MD [address] [address] PCP - General Internal Medicine 08/13/14 documented as of this encounter
--- OUTSIDE RECORDS SUMMARY | 2023-09-08 00:38 | External Medical Summary | Summary of Care ---
Author Name Unknown Organization [facility] Address [address] [facility] [address] Phone [phone] Care Team Providers Care Painter Structural Steel Name Role Phone Hank Oshea MD Primary Care Provider Reason for Visit * Reason Comments Outpatient Testing Encounter Details Date Type Department Care Team Description 12/29/2022 Laboratory [facility] [place] [address] [place] [address] [facility] [address] [place] [address] Acquired hypothyroidism Allergies No known active allergiesdocumented as of this encounter (statuses as of 12/30/2022) Medications Medication Sig Dispensed Refills Start Date End Date Status VITAMIN D 2000 UNITS PO TABS one tablet daily 0 Activ e nitroglycerin (NITROSTAT) 0.4 MG SUBLIndications:C oronary artery disease involving [place] coronary artery of [place] heart without angina pectoris,Myocardi al infarction involving [...] Active Warfarin Sodium 5 MG Oral Tablet (Coumadin)Indicat ions:Atrial fibrillation (HCC) TAKE 1/2 TAB MON, WED, WED (2.5mg) AND ONE TAB (5MG) ALL OTHER DAYS 70 Tablet 3 03/06/2022 Active Rosuvastatin Calcium 5 MG Oral Tablet (Crestor)Indicati ons:Heart failure, systolic, due to CAD (HCC),Ischemic cardiomyopathy,AI CD (automatic cardioverter/defi brillator) present,Coronary artery disease of [place] artery of [place] heart with stable angina pectoris (HCC) Take 1 tablet on Wed, Wed, and Wed 45 Tablet 3 04/17/2022 Active Digoxin 125 MCG Oral Tablet (Lanoxin)Indicati ons:Coronary artery disease involving [place] coronary artery of [place] heart without angina pectoris,Chronic atrial fibrillation (HCC) TAKE ONE TABLET BY MOUTH ON WEDNESDAY, WEDNESDAY AND WEDNESDAY 28 Tablet 11 07/01/2022 Active Entresto 24-26 MG Oral Tablet (sacubitril-valsa rtan 24-26 mg per tab)Indications:I schemic cardiomyopathy,He art failure, systolic, due to CAD (HCC) Take 1/2 tab each am and pm 90 Tablet 3 09/07/2022 Active Levothyroxine Sodium 75 MCG Oral Tablet (Levoxyl) Take 1 Tablet by mouth in the morning. 0 10/22/2022 Active Metoprolol Succinate ER 50 MG Oral Tablet Extended Release 24 Hour (toPROL XL)Indications:At rial fibrillation, unspecified type (HCC) Take 1.5 Tablets by mouth in the morning and 1.5 Tablets before bedtime. 270 Tablet 3 10/28/2022 Active Clopidogrel Bisulfate 75 MG Oral Tablet (pLAVix)Indicatio ns:Permanent atrial fibrillation (HCC) Take 1 Tablet by mouth daily. 90 Tablet 3 10/06/2021 12/29/19 23 Discontinued documented as of this encounter (statuses as of 12/30/2022) Active Problems Problem Noted Date AICD (automatic cardioverter/defibrillat or) present 02/10/2013 Heart failure, systolic, due to CAD 06/2013 Ischemic cardiomyopathy 01/06/2013 Atrial fibrillation 01/06/2013 CAD (coronary artery disease) 07/25/2012 DC (myocardial infarction) 07/25/2012 documented as of this encounter (statuses as of 12/30/2022) Immunizations Name Administration Dates Next Due COVID-19 [...] as of this encounter Miscellaneous Notes * Result Encounter Note - Wilmar Lay PA-C - 12/29/2022 10:47 PM EST ok documented in this encounter Plan of Treatment Upcoming Encounters Date Type Specialty Care Team Description 01/07/2023 Office Visit Cardiology Denis Langston MD [address] [place] [address] 02/09/2023 Anticoagulation Pharmacy Pharmacist1, [facility] [address] [place] [address] 03/25/2023 Cardiac Studies Cardiology [place] [address] [place] [address] Health Maintenance Due Date Last Done Comments [...] Procedure Name Priority Date/Time Associated Diagnosis Comments TSH Routine 12/29/2022 10:53 AM EST Acquired hypothyroidism documented in this encounter Results * TSH (12/29/2022 10:53 AM EST) TSH 3.75 0.27 - 4.20 uIU/mL 12/29/2022 7:43 PM EST LABORATORY [facility] Blood Venous blood specimen / Unknown Venipuncture / Unknown 12/29/2022 10:53 AM EST 12/29/2022 10:53 AM EST Wilmar Lay PA-C LAB BLOOD ORDERABLE S [facility] [address] [facility] [place] [address] documented in this encounter Visit Diagnoses Diagnosis Acquired hypothyroidism Unspecified hypothyroidism documented in this encounter Care Teams Painter Structural Steel Relationship Specialty Start Date End Date Hank Oshea MD [address] [address] PCP - General Internal Medicine 08/13/14 documented as of this encounter
--- OUTSIDE RECORDS SUMMARY | 2023-09-08 00:38 | External Medical Summary ---
Author Name Unknown Address Unknown Organization [id number]:[facility] [address] Laboratory Report Ordering Provider Test Date Status ARSH MAYAO 11/05/2022 10:58:14 Final Observation Date Value Abnormality Reference (Units ) Status Potassium 11/05/2022 10:58:14 4.4 3.5-5.1 (m mol/L) Final Performing Location [facility] [place] [address]
--- OUTSIDE RECORDS SUMMARY | 2023-09-08 00:38 | External Medical Summary ---
Author Name Unknown Address Unknown Organization K09:[facility] [place] [address] Laboratory Report Ordering Provider Test Date Status JENNIFER LOPEZ V 11/16/2022 10:48:18 Final Therapeutic ranges for non-o perative patients:
Prophylaxsis/treatment of DVT: (Range:2.0-3.0)
Treatment of pulmonary embolism:(Range:2.0-3.0)
Prevention of systemic embolism from:
-tissue heart valves
-acute myocardial infarction
-valvular heart disease
-atrial fibrillation
(Range: 2.0-3.0)
Mechanical prosthetic valves: (Range: 2.5-3.5) Observation Date Value Abnormality Reference (Units ) Status INR in Capillary blood by Coagulation assay 11/16/2022 10:48:18 2.8 (INR) Final Performing Location [facility] [address]
--- OUTSIDE RECORDS SUMMARY | 2023-09-08 00:38 | External Medical Summary | Summary of Care ---
Author Name Unknown Organization [place] [address] Care Team Providers Care Neck Pinner Name Role Phone Hank Oshea MD Primary Care Provider [phone] Reason for Visit * Reason Onset Date Comments Test Results 10/29/2022 Encounter Details Date Type Department Care Team Description 10/29/2022 Telephone Cardiology, [facility] [address] [employer] [place] [address] Wilmar Lay PA-C [address] [place] [address] Test Results (/) Allergies No known active allergiesdocumented as of this encounter (statuses as of 11/16/2022) Medications Medication Sig Dispensed Refills Start Date End Date Status VITAMIN D 2000 UNITS PO TABS one tablet daily 0 Activ e nitroglycerin (NITROSTAT) 0.4 MG SUBLIndications:Cor onary artery disease involving [place] coronary artery of [place] heart without angina pectoris,Myocardial infarction involving other [...] (automatic cardioverter/defibr illator) present,Coronary artery disease of [place] artery of [place] heart with stable angina pectoris (HCC) Take 1 tablet on Wed, Wed, and Wed 45 Tablet 3 04/17/2022 Active Digoxin 125 MCG Oral Tablet (Lanoxin)Indication s:Coronary artery disease involving [place] coronary artery of [place] heart without angina pectoris,Chronic atrial fibrillation (HCC) [...] as of this encounter (statuses as of 11/16/2022) Active Problems Problem Noted Date AICD (automatic cardioverter/defibrillat or) present 02/10/2013 Heart failure, systolic, due to CAD 06/2013 Ischemic cardiomyopathy 01/06/2013 Atrial fibrillation 01/06/2013 CAD (coronary artery disease) 07/25/2012 LA (myocardial infarction) 07/25/2012 documented as of this encounter (statuses as of 11/16/2022) Immunizations Name Administration Dates Next Due COVID-19 [...] encounter Miscellaneous Notes * Telephone Encounter - KEITH Brown - 10/29/2022 10:47 AM EST Spoke with pt. Pt is scheduled for labs 11/05/22 and 12/29/22. * Telephone Encounter - Yina Elizondo RN - 10/29/2022 10:36 AM EST Called, spoke with patient's spouse. Spouse verbalizing understanding of given results/recommendations below. Denies use of MVI, salt substitutes, or NSAIDS. Agreeable to plan for repeat lab work as per below. -Scheduling, please assist with lab work appointment next week and in 2 months as per below. Orders placed. * Telephone Encounter - Yina Elizondo RN - 10/29/2022 10:30 AM EST ----- Message from Wilmar Lay PA-C sent at 10/29/2022 8:05 AM EST ----- Laboratory work shows mild hyperkalemia, ? true verses other (hemolysis). Kidney dysfunction is stable. Encourage a low potassium diet. No multi-vitamin. No salt substitutes. No NSAIDs. Repeat potassium level early next week. If persistent or progressive hyperkalemia will need to reduce/hold Entresto. TSH is mildly abnormal. Would not adjust levothyroxine dosing at this time. Reassess TSH in 2 months. Very mild anemia. Check ferritin, iron screen, TSH, and B12. documented in this encounter Plan of Treatment Upcoming Encounters Date Type Specialty Care Team Description 12/14/2022 Cardiac Studies Cardiology [facility] [address] [place] [address] 12/29/2022 Laboratory Laboratory [facility] [address] [place] [address] 12/29/2022 Anticoagulation Pharmacy Pharmacist, [facility] [address] [place] [address] 01/07/2023 Office Visit Cardiology Denis Langston MD [address] [place] [address] 03/25/2023 Cardiac Studies Cardiology [facility] [address] [facility] [place] [address] Scheduled Orders Name Type Priority Associated Diagnoses Orde r Schedule TSH Lab Routine Acquired hypothyroidism Expected: 12/29/2022 (Approximate), Expires: 10/29/2023 Health Maintenance Due Date Last Done Comments [...] Not on filedocumented as of this encounter Results * VITAMIN B12 (11/05/2022 10:58 AM EST) Vitamin B12 571 232 - 1,245 pg/mL 11/05/2022 10:09 PM EST [facility] Blood Venous blood specimen / Unknown Venipuncture / Unknown 11/05/2022 10:58 AM EST 11/05/2022 10:58 AM EST Wilmar Lay PA-C LAB BLOOD ORDERABLE S LAB[facility]ATORY [facility] [address] [place] [address] * IRON SCREEN, INCLUDING TIBC (11/05/2022 10:58 AM EST) Iron 93 45 - 176 ug/dL 11/05/2022 8:57 PM EST [facility] Iron Binding Capacity 257 250 - 425 ug/dL 11/05/2022 8:57 PM EST [facility] Transferrin Saturation Percent 36 15 - 55 % 11/05/2022 8:57 PM EST [facility] Blood Venous blood specimen / Unknown Venipuncture / Unknown 11/05/2022 10:58 AM EST 11/05/2022 10:58 AM EST Wilmar TERRE[place]-C LAB BLOOD ORDERABLE S [facility] [address] [place] [address] * FERRITIN (11/05/2022 10:58 AM EST) Ferritin 246 30 - 400 ng/mL 11/05/2022 10:09 PM EST [facility] Blood Venous blood specimen / Unknown Venipuncture / Unknown 11/05/2022 10:58 AM EST 11/05/2022 10:58 AM EST Wilmar TERRELL-C LAB BLOOD ORDERABLE S Performing Organization Address City/[facility]/ZIP Co de Phone Number [facility] [address] [place] [address] * POTASSIUM (11/05/2022 10:58 AM EST) Potassium 4.4 3.5 - 5.1 mmol/L 11/05/2022 1:14 PM EST [facility] Blood Venous blood specimen / Unknown Venipuncture / Unknown 11/05/2022 10:58 AM EST 11/05/2022 10:58 AM EST Wilmar TERRE[place]-C LAB BLOOD ORDERABLE S [facility] [address] [place] [address] documented in this encounter Visit Diagnoses Diagnosis Hyperkalemia- Primary Hyperpotassemia Mild anemia Anemia, unspecified Acquired hypothyroidism Unspecified hypothyroidism Other dietary vitamin B12 deficiency anemia documented in this encounter Care Teams Neck Pinner Relationship Specialty Start Date End Date Hank Oshea MD [address] [address] PCP - General Internal Medicine 08/13/14 documented as of this encounter
--- OUTSIDE RECORDS SUMMARY | 2023-09-08 00:38 | External Medical Summary ---
Author Name Unknown Address Unknown Organization K01:[facility] [address] [place] [address] Laboratory Report Ordering Provider Test Date Status ROXANA MAYA 11/05/2022 10:58:14 Final Observation Date Value Abnormality Reference (Units ) Status Ferritin 11/05/2022 10:58:14 246 30-400 (ng /mL) Final Performing Location [facility] - [address] [place] [address]
--- OUTSIDE RECORDS SUMMARY | 2023-09-08 00:38 | External Medical Summary ---
Author Name Unknown Address Unknown Organization K01:[facility] [address] [place] [address] Laboratory Report Ordering Provider Test Date Status ARSH MAYAO 11/05/2022 10:58:14 Final Observation Date Value Abnormality Reference (Units ) Status Vitamin B12 11/05/2022 10:58:14 255 610-8240 (pg/mL) Final Performing Location [facility] - [address] [place] [address]
--- OUTSIDE RECORDS SUMMARY | 2023-09-08 00:38 | External Medical Summary ---
Author Name Unknown Address Unknown Organization K09:[facility] [place] [address] Laboratory Report Ordering Provider Test Date Status JENNIFER LOPEZ V 12/29/2022 11:11:13 Final Therapeutic ranges for non-o perative patients:
Prophylaxsis/treatment of DVT: (Range:2.0-3.0)
Treatment of pulmonary embolism:(Range:2.0-3.0)
Prevention of systemic embolism from:
-tissue heart valves
-acute myocardial infarction
-valvular heart disease
-atrial fibrillation
(Range: 2.0-3.0)
Mechanical prosthetic valves: (Range: 2.5-3.5) Observation Date Value Abnormality Reference (Units ) Status INR in Capillary blood by Coagulation assay 12/29/2022 11:11:13 1.9 (INR) Final Performing Location [facility] [place] [address]
--- OUTSIDE RECORDS SUMMARY | 2023-09-08 00:38 | External Medical Summary | Summary of Care ---
Author Name Unknown Organization [place] [address] Care Team Providers Care Supervisor Assembly Name Role Phone Hank Oshea MD Primary Care Provider Reason for Visit * Reason Comments Dosage Adjustment In Person (Anticoag Cl inic) Encounter Details Date Type Department Care Team Description 10/05/2022 Anticoagulation Pharmacy, [facility] [address] [facility] [place] [address] Pharmacist1, [facility] [address] [facility] [place] [address] Myocardial infarction, unspecified NC type, unspecified artery (HCC)*; Chronic atrial fibrillation (HCC); Atrial fibrillation, unspecified type (HCC); Anticoagulation management encounter; director of institutional research 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 therapy Allergies No known active allergiesdocumented as of this encounter (statuses as of 11/03/2022) Medications Medication Sig Dispensed Refills Start Date End Date Status VITAMIN D 2000 UNITS PO TABS one tablet daily 0 Active nitroglycerin (NITROSTAT) 0.4 MG SUBLIndications: Coronary artery disease involving [place] coronary artery of [place] heart without angina pectoris,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 25 Tab 11 6 Active Additional Information Patient not taking.Reported on 10/28/2022 Coenzyme Q10 (COQ10) 200 MG CAPS Take 1 Cap by mouth daily. 0 Active Cetirizine HCl 10 MG Oral Capsule Take 1 Capsule by mouth in the morning. 0 Active Clopidogrel Bisulfate 75 MG Oral Tablet (pLAVix)Indicati ons:Permanent atrial fibrillation (HCC) Take 1 Tablet by mouth daily. 90 Tablet 3 1 Active Furosemide 20 MG Oral Tablet (Lasix) Take 2 Tablets by mouth in the morning. 270 Tablet 3 2 Active Warfarin Sodium 5 MG Oral Tablet (Coumadin)Indica tions:Atrial fibrillation (HCC) TAKE 1/2 TAB MON, WED, FRI (2.5mg) AND ONE TAB (5MG) ALL OTHER DAYS 70 Tablet 3 2 Active Rosuvastatin Calcium 5 MG Oral Tablet (Crestor)Indicat ions:Heart failure, systolic, due to CAD (HCC),Ischemic cardiomyopathy,A ICD (automatic cardioverter/def ibrillator) present,Coronary artery disease of [place] artery of [place] heart with stable angina pectoris (HCC) Take 1 tablet on Mon, Wed, and Wed 45 Tablet 3 2 Active Digoxin 125 MCG Oral Tablet (Lanoxin)Indicat ions:Coronary artery disease involving [place] coronary artery of [place] heart without angina pectoris,Chronic atrial fibrillation (HCC) TAKE ONE TABLET BY MOUTH ON WEDNESDAY, WEDNESDAY AND WEDNESDAY 28 Tablet 11 2 Active Entresto 24-26 MG Oral Tablet (sacubitril-vals ivon 24-26 mg per tab)Indications: Ischemic cardiomyopathy,H eart failure, systolic, due to CAD (HCC) Take 1/2 tab each am and pm 90 Tablet 3 2 Active levothyroxine (LEVOXYL) 50 MCG Tablet Take 75 mcg by mouth daily. 3 9 10/28/20 22 Discontinued(Med ication/Dose Changed) Metoprolol Succinate ER 50 MG Oral Tablet Extended Release 24 Hour (toPROL XL)Indications:A trial fibrillation, unspecified type (HCC) Take 1 tablet by mouth twice daily 180 Tablet 3 2 10/28/20 22 Discontinued documented as of this encounter (statuses as of 11/03/2022) Active Problems Problem Noted Date AICD (automatic cardioverter/defibrillat or) present 02/10/2013 Heart failure, systolic, due to CAD 06/2013 Ischemic cardiomyopathy 01/06/2013 Atrial fibrillation 01/06/2013 CAD (coronary artery disease) 07/25/2012 NC (myocardial infarction) 07/25/2012 documented as of this encounter (statuses as of 11/03/2022) Immunizations Name Administration Dates Next Due COVID-19 [...] as of this encounter Progress Notes * John Raymundo RPh - 10/05/2022 10:59 AM EST Images from the original note were not included. Medication Therapy Disease Management - Anticoagulation Lucian Larson Jr. 1935 Patient Findings Positives: Change in diet/appetite (eating less vitamin k foods.) Negatives: Signs/symptoms of thrombosis, Signs/symptoms of bleeding, Change in health, Change in alcohol use, Change in activity, Upcoming invasive procedure, Missed doses, Extra doses, Change in medications, Bruising INR Result As of 10/05/2022 INR goal: 2.0-3.0 INR used for dosin.5 (10/05/2022) Warfarin Plan As of 10/05/2022 Full warfarin instructions: 10/05: Hold; Otherwise 2.5 mg every Mon, Wed, Fri; 5 mg all other days; Starting 10/05/2022 Next INR check: 11/16/2022 Repeat PT/INR in 6 week(s) Weekly dose: not changed John Caceres RPh, CACP, CDE Clinical Pharmacist Medication Therapy Management [facility] 10/05/2022 11:06 AM documented in this encounter Miscellaneous Notes * Addendum Note - John Raymundo RPh - 11/03/2022 11:48 AM ESTAddended by: JOHN BUTTERFIELD on: 11/03/2022 11:48 AM Modules accepted: Level of Service documented in this encounter Plan of Treatment Upcoming Encounters Date Type Specialty Care Team Description 11/05/2022 Laboratory [facility] [place], Lab Scenery [address] [place] [address] 11/16/2022 Anticoagulation Pharmacy Pharmacist1, [facility] [address] [place] [address] 12/14/2022 Cardiac Studies Cardiology [facility] [address] [facility] [place] [address] 12/29/2022 Laboratory [facility] [place], Lab Scenery [address] [place] [address] 01/07/2023 Office Visit Cardiology Denis Langston MD [address] [facility] [place] [address] 03/25/2023 Cardiac Studies Cardiology [facility] [address] [facility] [place] [address] Health Maintenance Due Date Last Done Comments [...] Comments INR FINGERSTICK, POINT OF CARE STAT 10/05/2022 11:02 AM EST Myocardial infarction, unspecified NC type, unspecified artery (HCC) Atrial fibrillation, unspecified type (HCC) Anticoagulation management encounter director of institutional research 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 therapy documented in this encounter Results * INR FINGERSTICK, POINT OF CARE (10/05/2022 11:02 AM EST) Fingerstick INR 3.5 INR 11:04 AM EST [employer] [place] [address] Blood 10/05/2022 11:0 2 AM EST 10/05/2022 11:[address] [facility] [employer] [place] 56-[facility] - 10/05/2022 11:04 AM EST Therapeutic ranges for non-operative patients: Prophylaxsis/treatment of DVT: (Range:2.0-3.0) Treatment of pulmonary embolism:(Range:2.0-3.0) Prevention of systemic embolism from: -tissue heart valves -acute myocardial infarction -valvular heart disease -atrial fibrillation (Range: 2.0-3.0) Mechanical prosthetic valves: (Range: 2.5-3.5) John Caceres V [facility] LAB POINT OF CARE TE ST DOCKED DEVICE UNSOLICITED RESULTS [facility] [place] [address] [place] [address] documented in this encounter Visit Diagnoses Diagnosis Myocardial infarction, unspecified NC type, unspecified artery (HCC)- Primary Chronic atrial fibrillation (HCC) Atrial fibrillation Atrial fibrillation, unspecified type (HCC) Anticoagulation management encounter Encounter for therapeutic drug monitoring director of institutional research 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 therapy documented in this encounter Care Teams Supervisor Assembly Relationship Specialty Start Date End Date Hank Oshea MD [address] [address] PCP - General Internal Medicine 08/13/14 documented as of this encounter
--- OUTSIDE RECORDS SUMMARY | 2023-09-08 00:38 | External Medical Summary | Summary of Care ---
Author Name Unknown Organization [facility] Address [address] [facility] [address] Phone [phone] Care Team Providers Care Isolation Washer Name Role Phone Hank Oshea MD Primary Care Provider [phone] Reason for Visit * Reason Comments Dosage Adjustment In Person (Anticoag Cl inic) Encounter Details Date Type Department Care Team Description 02/09/2023 Anticoagulation Pharmacy, [facility] [address] [place] [address] Pharmacist1, [facility] 200 [facility] [place] [address] [address] elevation myocardial infarction involving left main coronary artery (HCC)*; Paroxysmal atrial fibrillation (HCC); Myocardial infarction, unspecified VA type, unspecified artery (HCC); Atrial fibrillation, unspecified type (HCC); Anticoagulation management encounter; technician terminal and repeater 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 therapy Allergies No known active allergiesdocumented as of this encounter (statuses as of 02/09/2023) Medications Medication Sig Dispensed Refills Start Date End Date Status VITAMIN D 2000 UNITS PO TABS one tablet daily 0 Active nitroglycerin (NITROSTAT) 0.4 MG SUBLIndications:Coron richardson artery disease involving samish coronary artery of samish heart without angina pectoris,Myocardial infarction involving other [...] (Coumadin)Indications :Atrial fibrillation (HCC) TAKE 1/2 TAB WED, WED, WED (2.5mg) AND ONE TAB (5MG) ALL OTHER DAYS 70 Tablet 3 03/06/2022 Active Rosuvastatin Calcium 5 MG Oral Tablet (Crestor)Indications: Heart failure, systolic, due to CAD (HCC),Ischemic cardiomyopathy,AICD (automatic cardioverter/defibril lator) present,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) Take 1 tablet on Wed, Wed, and Wed 45 Tablet 3 04/17/2022 Active Digoxin 125 MCG Oral Tablet (Lanoxin)Indications: Coronary artery disease involving samish coronary artery of samish heart without angina pectoris,Chronic atrial fibrillation (HCC) [...] as of this encounter (statuses as of 02/09/2023) Active Problems Problem Noted Date AICD (automatic cardioverter/defibrillat or) present 02/10/2013 Heart failure, systolic, due to CAD 06/2013 Ischemic cardiomyopathy 01/06/2013 Atrial fibrillation 01/06/2013 CAD (coronary artery disease) 07/25/2012 VA (myocardial infarction) 07/25/2012 documented as of this encounter (statuses as of 02/09/2023) Immunizations Name Administration Dates Next Due COVID-19 [...] Progress Notes * Anibal Raymundo RPh - 02/09/2023 11:00 AM EDT Medication Therapy Disease Management - Anticoagulation Lucian Larson Jr. 1935 Patient Findings Negatives: Signs/symptoms of thrombosis, Signs/symptoms of bleeding, Change in health, Change in alcohol use, Change in activity, Upcoming invasive procedure, Missed doses, Extra doses, Change in medications, Change in diet/appetite, Bruising INR Result As of 02/09/2023 INR goal: 2.0-3.0 INR used for dosin.6 (02/09/2023) Warfarin Plan As of 02/09/2023 Full warfarin instructions: 2.5 mg every Mon, Wed, Fri; 5 mg all other days No change documented: Anibal Raymundo RPh Next INR check: 03/23/2023 Repeat PT/INR in 6 week(s) Weekly dose: not changed nAibal Caceres RPh, CACP, CDE Clinical Pharmacist Medication Therapy Management Clinic 02/09/2023 11:05 AM documented in this encounter Plan of Treatment Upcoming Encounters Date Type Specialty Care Team Description 03/23/2023 Anticoagulation Pharmacy Pharmacist1, [facility] [address] [place], [place] [address] 03/25/2023 Cardiac Studies Cardiology Isi Yu [facility] [address] [place] [address] 04/22/2023 Office Visit Cardiology Wilmar Lay PA-C [address] [place] [address] Health Maintenance Due Date Last Done Comments [...] Comments INR FINGERSTICK, POINT OF CARE STAT 02/09/2023 11:03 AM EDT Myocardial infarction, unspecified VA type, unspecified artery (HCC) Atrial fibrillation, unspecified type (HCC) Anticoagulation management encounter technician terminal and repeater 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 therapy documented in this encounter Results * INR FINGERSTICK, POINT OF CARE (02/09/2023 11:03 AM EDT) Fingerstick INR 2.6 INR 11:04 AM EDT [facility] 56-02 Blood 02/09/2023 11:0 3 AM EDT 02/09/2023 11:04 AM EDT Narrative [facility] 56-02 - 02/09/2023 11:04 AM EDT Therapeutic ranges for non-operative patients: Prophylaxsis/treatment of DVT: (Range:2.0-3.0) Treatment of pulmonary embolism:(Range:2.0-3.0) Prevention of systemic embolism from: -tissue heart valves -acute myocardial infarction -valvular heart disease -atrial fibrillation (Range: 2.0-3.0) Mechanical prosthetic valves: (Range: 2.5-3.5) Anibal Nicki V, [facility] LAB POINT OF CARE TE ST DOCKED DEVICE UNSOLICITED RESULTS [facility] [address] [place], [place] [id number] documented in this encounter Visit Diagnoses Diagnosis ST elevation myocardial infarction involving left main coronary artery (HCC)- Primary Acute myocardial infarction of other anterior wall, initial episode of care Paroxysmal atrial fibrillation (HCC) Atrial fibrillation Myocardial infarction, unspecified VA type, unspecified artery (HCC) Atrial fibrillation, unspecified type (HCC) Anticoagulation management encounter Encounter for therapeutic drug monitoring [facility] 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 therapy documented in this encounter Care Teams Isolation Washer Relationship Specialty Start Date End Date Hank Oshea MD [address] [place] [address] PCP - General Internal Medicine 08/13/14 documented as of this encounter
--- OUTSIDE RECORDS SUMMARY | 2023-09-08 00:38 | External Medical Summary ---
Author Name Unknown Address Unknown Organization K01:[place] [place] [address] [place] [address] Laboratory Report Ordering Provider Test Date Status ARSH MAYAO 12/29/2022 10:53:33 Final Observation Date Value Abnormality Reference (Units ) Status TSH 12/29/2022 10:53:33 3.75 0.27-4.20 (uIU/mL) Final Performing Location LABORATORY [facility] - [address] [place] [address]
--- OUTSIDE RECORDS SUMMARY | 2023-09-08 00:38 | External Medical Summary | Summary of Care ---
Author Name Unknown Organization [place] [address] Care Team Providers Care Record Cutter Name Role Phone Hank Oshea MD Primary Care Provider [phone] Reason for Visit * Reason Comments Dosage Adjustment In Person (Anticoag Cl inic) Encounter Details Date Type Department Care Team Description 11/16/2022 Anticoagulation Pharmacy, [facility] 200 [facility] [place] [address] Pharmacist1, [facility] 200 [facility] [place] [address] Myocardial infarction, unspecified [place] type, unspecified artery (HCC)*; Atrial fibrillation, unspecified type (HCC); Anticoagulation management encounter; 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 Allergies No known active allergiesdocumented as of this encounter (statuses as of 11/16/2022) Medications Medication Sig Dispensed Refills Start Date End Date Status VITAMIN D 2000 UNITS PO TABS one tablet daily 0 Activ e nitroglycerin (NITROSTAT) 0.4 MG SUBLIndications:Cor onary artery disease involving kaibab coronary artery of kaibab heart without angina pectoris,Myocardial infarction involving other [...] (automatic cardioverter/defibr illator) present,Coronary artery disease of kaibab artery of kaibab heart with stable angina pectoris (HCC) Take 1 tablet on Wed, Wed, and Wed 45 Tablet 3 04/17/2022 Active Digoxin 125 MCG Oral Tablet (Lanoxin)Indication s:Coronary artery disease involving kaibab coronary artery of kaibab heart without angina pectoris,Chronic atrial fibrillation (HCC) [...] as of this encounter Progress Notes * Luiza Raza RPh - 11/16/2022 10:39 AM EST Medication Therapy Disease Management - Anticoagulation Patient: Lucian Larson Jr. : 1935 Current Warfarin Dose As of 11/16/2022 Warfarin maintenance plan: 2.5 mg (5 mg x 0.5) every Mon, Wed, Fri; 5 mg (5 mg x 1) all other days;Starting 11/16/2022 Patient-Reported Symptoms: Patient Findings Positives: Change in medications (Metoprolol increased by cardiology) Negatives: Signs/symptoms of thrombosis, Signs/symptoms of bleeding, Change in health, Change in alcohol use, Change in activity, Upcoming invasive procedure, Missed doses, Extra doses, Change in diet/appetite, Bruising INR Result As of 11/16/2022 INR goal: 2.0-3.0 INR used for dosin.8 (11/16/2022) Warfarin Plan As of 11/16/2022 Full warfarin instructions: 2.5 mg every Mon, Wed, Fri; 5 mg all other days; Starting 11/16/2022 No change documented: Luiza Raza RPh Next INR check: 12/29/2022 Additional Dosing Information: Repeat PT/INR in 6 week(s) Weekly dose: not changed Luiza Raza [facility] Clinical Pharmacist 11/16/2022, 10:44 AM documented in this encounter Plan of Treatment Upcoming Encounters Date Type Specialty Care Team Description 12/14/2022 Cardiac Studies Cardiology [facility] [address] [facility] [place] [address] 12/29/2022 Laboratory Laboratory [place], Lab Scenery [address] [place] [address] 12/29/2022 Anticoagulation Pharmacy Pharmacist, [facility] [address] [place] [address] 01/07/2023 Office Visit Cardiology Denis [facility]ston MD [facility] [place] [address] 03/25/2023 Cardiac Studies Cardiology [facility] [address] [place] [address] Health Maintenance Due Date Last Done Comments [...] Comments INR FINGERSTICK, POINT OF CARE STAT 11/16/2022 10:48 AM EST Myocardial infarction, unspecified IN type, unspecified artery (HCC) Atrial fibrillation, unspecified type (HCC) Anticoagulation management encounter [facility] 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 therapy documented in this encounter Results * INR FINGERSTICK, POINT OF CARE (11/16/2022 10:48 AM EST) Fingerstick INR 2.8 INR 10:53 AM EST [facility] 56-02 Blood 11/16/2022 10:4 8 AM EST 11/16/2022 10:53 AM EST Narrative [facility] 56-02 - 11/16/2022 10:53 AM EST Therapeutic ranges for non-operative patients: Prophylaxsis/treatment of DVT: (Range:2.0-3.0) Treatment of pulmonary embolism:(Range:2.0-3.0) Prevention of systemic embolism from: -tissue heart valves -acute myocardial infarction -valvular heart disease -atrial fibrillation (Range: 2.0-3.0) Mechanical prosthetic valves: (Range: 2.5-3.5) Anibal Caceres V [facility] LAB POINT OF CARE TE ST DOCKED DEVICE UNSOLICITED RESULTS [facility] [address] [place], [place] [phone] documented in this encounter Visit Diagnoses Diagnosis Myocardial infarction, unspecified IN type, unspecified artery (HCC)- Primary Atrial fibrillation, unspecified type (HCC) Anticoagulation management encounter Encounter for therapeutic drug monitoring [facility] 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 therapy documented in this encounter Care Teams Record Cutter Relationship Specialty Start Date End Date Hank Oshea MD [address] [place] [address] PCP - General Internal Medicine 08/13/14 documented as of this encounter
--- OUTSIDE RECORDS SUMMARY | 2023-09-08 00:38 | External Medical Summary | Summary of Care ---
Author Name Unknown Organization [facility] Address [address] [facility] [place] [address] Phone [phone] Care Team Providers Care Math Professor Name Role Phone Hank Oshea MD Primary Care Provider [phone] Reason for Visit * Reason Comments eRx-Medication Refill Encounter Details Date Type Department Care Team Description 12/28/2022 Refill Cardiology, [facility] [address] [facility] [place] [address] Zulma Lay PA-Nettie [address] [place] [address] Permanent atrial fibrillation (HCC) Allergies No known active allergiesdocumented as of this encounter (statuses as of 12/29/2022) Medications Medication Sig Dispensed Refills Start Date End Date Status VITAMIN D 2000 UNITS PO TABS one tablet daily 0 Activ e nitroglycerin (NITROSTAT) 0.4 MG SUBLIndications:C oronary artery disease involving aniak coronary artery of aniak heart without angina pectoris,Myocardi al infarction involving [...] (automatic cardioverter/defi brillator) present,Coronary artery disease of aniak artery of aniak heart with stable angina pectoris (HCC) Take 1 tablet on Mon, Wed, and Wed 45 Tablet 3 04/17/2022 Active Digoxin 125 MCG Oral Tablet (Lanoxin)Indicati ons:Coronary artery disease involving aniak coronary artery of aniak heart without angina pectoris,Chronic atrial fibrillation (HCC) [...] once daily 90 Tablet 3 12/29/2022 Active Clopidogrel Bisulfate 75 MG Oral Tablet [...] Telephone Encounter - Zulma Lay PA-C - 12/29/2022 4:42 PM ESTSigned Prescriptions: Disp Refills Clopidogrel Bisulfate 75 MG Oral Tablet (p*90 Tab*3 Sig: Take 1 tablet by mouth once daily Authorizing Provider: ZULMA LAY * Telephone Encounter - Beatrice Samuels LPN - 12/29/2022 9:34 AM ESTPending Prescriptions: Disp Refills Clopidogrel Bisulfate 75 MG Oral Tablet (p*90 Tab*3 Sig: Take 1 tablet by mouth once daily * Telephone Encounter - Beatrice Samuels LPN - 12/29/2022 9:33 AM EST Did you pend patient's preferred pharmacy and medication before forwarding?yes Pharmacy: [facility] [address] [place] [address] [place] Pending Prescriptions: Disp Refills Clopidogrel Bisulfate 75 MG Oral Tablet (*90 Tab*0 Sig: Take 1 tablet by mouth once daily Last Visit: 10/28/2022 (in office), Visit date not found (telemedicine) Next Visit: 01/07/2023 If no future appointments scheduled, and last appointment is greater than a year ago, please schedule patient for a follow-up appointment Last date the medication was ordered: 10/03/2021 Is this request for a controlled substance?No Urine Drug Screen:No results found for this or any previous visit. Patient Phone Numbers Labs: Lab Results Component Value Date/Time CREAT 1.3 (H) 10/28/2022 03:16 PM CREAT 1.4 (H) 07/23/2020 11:28 AM POTASSIUM 4.4 11/05/2022 10:58 AM POTASSIUM 4.4 07/23/2020 11:28 AM TSH 4.63 (H) 10/28/2022 03:16 PM TSH 4.50 (H) 07/23/2020 11:28 AM LDLCALC [...] Denis Langston MD [address] [place] [address] 02/09/2023 Anticoagulation Pharmacy Pharmacist1, [facility] 200 [place] [address] 03/25/2023 Cardiac Studies Cardiology [place] [address] [place] [address] Health Maintenance Due Date Last Done Comments [...] as of this encounter Visit Diagnoses Diagnosis Permanent atrial fibrillation (HCC) Atrial fibrillation documented in this encounter Care Teams Math Professor Relationship Specialty Start Date End Date Hank Oshea MD [address] [address] PCP - General Internal Medicine 08/13/14 documented as of this encounter
--- OUTSIDE RECORDS SUMMARY | 2023-09-08 00:38 | External Medical Summary ---
Author Name Unknown Address Unknown Organization K01:[place] [facility] [place] [address] [place] [address] Laboratory Report Ordering Provider Test Date Status ROXANA MAYA 11/05/2022 10:58:14 Final Observation Date Value Abnormality Reference (Units ) Status Iron 11/05/2022 10:58:14 93 45-176 (ug /dL) Final Iron-binding capacity 11/05/2022 10:58:14 257 250-425 (ug/dL) Final Transferrin Sat % 11/05/2022 10:58:14 36 15 -55 (%) Final Performing Location LABORATORY C - [address] [place] [address]
--- OUTSIDE RECORDS SUMMARY | 2023-09-08 00:38 | External Medical Summary | Summary of Care ---
Author Name Unknown Organization [facility] Address [address] [facility] [place] [address] Phone [phone] Care Team Providers Care Garbage Truck Dispatcher Name Role Phone Hank Oshea MD Primary Care Provider Reason for Visit * Reason Comments Defibrillator Clinic Encounter Details Date Type Department Care Team Description 02/04/2023 Documentation Cardiology, [facility] [address] [place] [address] Denis Langston MD [address] [place] [address] Allergies No known active allergiesdocumented as of this encounter (statuses as of 02/04/2023) Medications Medication Sig Dispensed Refills Start Date End Date Status VITAMIN D 2000 UNITS PO TABS one tablet daily 0 Active nitroglycerin (NITROSTAT) 0.4 MG SUBLIndications:Coron richardson artery disease involving ugashik coronary artery of ugashik heart without angina pectoris,Myocardial infarction involving other [...] (automatic cardioverter/defibril lator) present,Coronary artery disease of ugashik artery of ugashik heart with stable angina pectoris (HCC) Take 1 tablet on Mon, Wed, and Wed 45 Tablet 3 04/17/2022 Active Digoxin 125 MCG Oral Tablet (Lanoxin)Indications: Coronary artery disease involving ugashik coronary artery of ugashik heart without angina pectoris,Chronic atrial fibrillation (HCC) [...] as of this encounter (statuses as of 02/04/2023) Active Problems Problem Noted Date AICD (automatic cardioverter/defibrillat or) present 02/10/2013 Heart failure, systolic, due to CAD 06/2013 Ischemic cardiomyopathy 01/06/2013 Atrial fibrillation 01/06/2013 CAD (coronary artery disease) 07/25/2012 [place] (myocardial infarction) 07/25/2012 documented as of this encounter (statuses as of 02/04/2023) Immunizations Name Administration Dates Next Due COVID-19 [...] encounter Progress Notes * GHULAM Pino - 02/04/2023 3:55 PM EDT Remote transmission received and reviewed. Providers see scanned report in scans tab. documented in this encounter Plan of Treatment Upcoming Encounters Date Type Specialty Care Team Description 02/09/2023 Anticoagulation Pharmacy Pharmacist1, [facility] [address] [facility] [place] [address] 03/25/2023 Cardiac Studies Cardiology [facility] [address] [place] [address] 04/22/2023 Office Visit Cardiology Wilmar Lay PA-C [address] [place] [address] Health Maintenance Due Date Last Done Comments [...] filedocumented as of this encounter Care Teams Garbage Truck Dispatcher Relationship Specialty Start Date End Date Hank Oshea MD [address] [place] [address] PCP - General Internal Medicine 08/13/14 documented as of this encounter
--- OUTSIDE RECORDS SUMMARY | 2023-09-08 00:38 | External Medical Summary | Summary of Care ---
Author Name Unknown Organization [place] [address] Care Team Providers Care Airplane Captain Name Role Phone Hank Oshea MD Primary Care Provider [phone] Reason for Visit * Reason Comments Outpatient Testing Encounter Details Date Type Department Care Team Description 11/05/2022 Laboratory [facility] [place] [address] [place] [address] [facility] Lab [facility] [address] [place] [address] Hyperkalemia; Mild anemia; Other dietary vitamin B12 deficiency anemia Allergies No known active allergiesdocumented as of this encounter (statuses as of 11/05/2022) Medications Medication Sig Dispensed Refills Start Date End Date Status VITAMIN D 2000 UNITS PO TABS one tablet daily 0 Activ e nitroglycerin (NITROSTAT) 0.4 MG SUBLIndications:Cor onary artery disease involving havasupai coronary artery of havasupai heart without angina pectoris,Myocardial infarction involving other [...] (automatic cardioverter/defibr illator) present,Coronary artery disease of havasupai artery of havasupai heart with stable angina pectoris (HCC) Take 1 tablet on Mon, Wed, and Wed 45 Tablet 3 04/17/2022 Active Digoxin 125 MCG Oral Tablet (Lanoxin)Indication s:Coronary artery disease involving havasupai coronary artery of havasupai heart without angina pectoris,Chronic atrial fibrillation (HCC) [...] as of this encounter (statuses as of 11/05/2022) Active Problems Problem Noted Date AICD (automatic cardioverter/defibrillat or) present 02/10/2013 Heart failure, systolic, due to CAD 06/2013 Ischemic cardiomyopathy 01/06/2013 Atrial fibrillation 01/06/2013 CAD (coronary artery disease) 07/25/2012 [place] (myocardial infarction) 07/25/2012 documented as of this encounter (statuses as of 11/05/2022) Immunizations Name Administration Dates Next Due COVID-19 mRNA, LNP-s, No Pre serve, 2-Dose Series (Moderna) 04/14/2022,09/09/2021,01/21/2021,2020 DTaP - Dipth/Tet/Acell Pertussis 07/29/2017 Seasonal Influenza, Quadriva deborat Hd, 65+ Yrs 08/11/2022,08/05/2021 Seasonal Influenza, Split, [...] Encounters Date Type Specialty Care Team Description 11/16/2022 Anticoagulation Pharmacy Pharmacist1, [facility] [address] [place] [address] 12/14/2022 Cardiac Studies Cardiology [facility] [address] [facility] [address] 12/29/2022 Laboratory Laboratory [facility] 200 [facility] [place] [address] 01/07/2023 Office Visit Cardiology Denis Langston MD 132 [facility] [place] [address] 03/25/2023 Cardiac Studies Cardiology [facility] 132 [facility] [place] [address] Pending Results Name Type Priority Associated Diagnoses Date /Time POTASSIUM Lab Routine Hyperkalemia 11/05/2022 10:58 AM EST FERRITIN Lab Routine Mild anemia 11/05/2022 10:58 AM EST IRON SCREEN, INCLUDING TIBC Lab Routine Mild anemia 11/05/2022 10:58 AM EST VITAMIN B12 Lab Routine Mild anemia Other dietary vitamin B12 deficiency anemia 11/05/2022 10:58 AM EST Health Maintenance Due Date Last [...] as of this encounter Visit Diagnoses Diagnosis Hyperkalemia Hyperpotassemia Mild anemia Anemia, unspecified Other dietary vitamin B12 deficiency anemia documented in this encounter Care Teams Airplane Captain Relationship Specialty Start Date End Date Hank Oshea MD [address] [place] [address] PCP - General Internal Medicine 08/13/14 documented as of this encounter
--- OUTSIDE RECORDS SUMMARY | 2023-09-08 00:38 | External Medical Summary | Summary of Care ---
Author Name Unknown Organization [place] [address] Care Team Providers Care Meteorological Engineer Name Role Phone Hank Oshea MD Primary Care Provider [phone] Reason for Visit * Reason Onset Date Comments Test Results 11/06/2022 Encounter Details Date Type Department Care Team Description 11/06/2022 Telephone Cardiology, [facility] [address] [place] [address] Wilmar Lay PA-C [address] [place] [address] Test Results Allergies No known active allergiesdocumented as of this encounter (statuses as of 11/06/2022) Medications Medication Sig Dispensed Refills Start Date End Date Status VITAMIN D 2000 UNITS PO TABS one tablet daily 0 Activ e nitroglycerin (NITROSTAT) 0.4 MG SUBLIndications:Cor onary artery disease involving [place] coronary artery of [place] heart without angina pectoris,Myocardial infarction involving other [...] (automatic cardioverter/defibr illator) present,Coronary artery disease of [place] artery of [place] heart with stable angina pectoris (HCC) Take 1 tablet on Wed, Wed, and Wed 45 Tablet 3 04/17/2022 Active Digoxin 125 MCG Oral Tablet (Lanoxin)Indication s:Coronary artery disease involving [place] coronary artery of [place] heart without angina pectoris,Chronic atrial fibrillation (HCC) [...] as of this encounter (statuses as of 11/06/2022) Active Problems Problem Noted Date AICD (automatic cardioverter/defibrillat or) present 02/10/2013 Heart failure, systolic, due to CAD 06/2013 Ischemic cardiomyopathy 01/06/2013 Atrial fibrillation 01/06/2013 CAD (coronary artery disease) 07/25/2012 [place] (myocardial infarction) 07/25/2012 documented as of this encounter (statuses as of 11/06/2022) Immunizations Name Administration Dates Next Due COVID-19 [...] Telephone Encounter - Rebel Durant LPN - 11/06/2022 4:40 PM EST Called patient and informed of Wilmar's messages. Patient verbalized understanding. ----- Message from Wilmar Lay PA-C sent at 11/06/2022 8:34 AM EST ----- ok * Telephone Encounter - Rebel Durant LPN - 11/06/2022 4:40 PM EST ----- Message from Wilmar Lay PA-C sent at 11/05/2022 5:33 PM EST ----- Potassium level has returned to normal, 4.4 mmol/L. Continue as prescribed. documented in this encounter Plan of Treatment Upcoming Encounters Date Type Specialty Care Team Description 11/16/2022 Anticoagulation Pharmacy Pharmacist1, [facility] [address] [place], [place] [id number] 12/14/2022 Cardiac Studies Cardiology [facility] 132 [place] [address] 12/29/2022 Laboratory Laboratory [facility] [address] [place], [place] [address] 01/07/2023 Office Visit Cardiology Denis Langston MD [address] [place] [address] 03/25/2023 Cardiac Studies Cardiology [facility] Pacer [facility] [address] [place] [address] Health Maintenance Due Date Last Done Comments [...] filedocumented as of this encounter Care Teams Meteorological Engineer Relationship Specialty Start Date End Date Hank Oshea MD [address] [address] PCP - General Internal Medicine 08/13/14 documented as of this encounter
--- OUTSIDE RECORDS SUMMARY | 2023-09-08 00:38 | External Medical Summary | Summary of Care ---
Author Name Unknown Organization [place] [address] Care Team Providers Care Scanning Clerk Name Role Phone Hank Oshea MD Primary Care Provider Reason for Visit * Reason Comments Defibrillator Clinic Encounter Details Date Type Department Care Team Description 12/14/2022 Cardiac Studies Cardiology, [facility] [place] [address] [place], Pacer Clinic [facility] 132 [facility] [place] [address] Ischemic cardiomyopathy*; Chronic atrial fibrillation (HCC); AICD (automatic cardioverter/defibril lator) present Allergies No known active allergiesdocumented as of this encounter (statuses as of 12/14/2022) Medications Medication Sig Dispensed Refills Start Date End Date Status VITAMIN D 2000 UNITS PO TABS one tablet daily 0 Activ e nitroglycerin (NITROSTAT) 0.4 MG SUBLIndications:Cor onary artery disease involving [place] coronary artery of [place] heart without angina pectoris,Myocardial infarction involving other [...] (automatic cardioverter/defibr illator) present,Coronary artery disease of [place] artery of [place] heart with stable angina pectoris (HCC) Take 1 tablet on Mon, Wed, and Wed 45 Tablet 3 04/17/2022 Active Digoxin 125 MCG Oral Tablet (Lanoxin)Indication s:Coronary artery disease involving [place] coronary artery of [place] heart without angina pectoris,Chronic atrial fibrillation (HCC) [...] as of this encounter (statuses as of 12/14/2022) Active Problems Problem Noted Date AICD (automatic cardioverter/defibrillat or) present 02/10/2013 Heart failure, systolic, due to CAD 06/2013 Ischemic cardiomyopathy 01/06/2013 Atrial fibrillation 01/06/2013 CAD (coronary artery disease) 07/25/2012 [place] (myocardial infarction) 07/25/2012 documented as of this encounter (statuses as of 12/14/2022) Immunizations Name Administration Dates Next Due COVID-19 [...] encounter Progress Notes * GHULAM Pino - 12/14/2022 9:17 AM EST Remote received and reviewed. Please see scanned report under cardiac studies tab. documented in this encounter Plan of Treatment Upcoming Encounters Date Type Specialty Care Team Description 12/29/2022 Laboratory Laboratory [place], Lab Scenery [address] [place] [address] 12/29/2022 Anticoagulation Pharmacy Pharmacist, [facility] Sp [address] [place] [address] 01/07/2023 Office Visit Cardiology Denis Langston MD [address] [place] [address] 03/25/2023 Cardiac Studies Cardiology [facility] [address] [place] [address] Scheduled Orders Name Type Priority Associated Diagnoses Orde r Schedule DEFIBRILLATOR REMOTE INTERROGATION EVAL/INTERP,TO 90D Procedures Routine Ischemic cardiomyopathy Chronic atrial fibrillation (HCC) AICD (automatic cardioverter/defibrilla tor) present Ordered: 12/14/2022 PACER/ICD REMOTE DATA CAPTURE/TECH REVIEW,90D Procedures Routine Ischemic cardiomyopathy Chronic atrial fibrillation (HCC) AICD (automatic cardioverter/defibrilla tor) present Ordered: 12/14/2022 Health Maintenance Due Date Last Done Comments [...] present Automatic implantable cardiac defibrillator in situ documented in this encounter Care Teams Scanning Clerk Relationship Specialty Start Date End Date Hank Oshea MD [address] [address] PCP - General Internal Medicine 08/13/14 documented as of this encounter
--- OUTSIDE RECORDS SUMMARY | 2023-09-08 00:39 | External Medical Summary | Summary of Care ---
Author Name Unknown Organization [place] [address] Care Team Providers Care Pipeline Controller Name Role Phone Hank Oshea MD Primary Care Provider Reason for Visit * Reason Onset Date Comments FYI 10/28/2022 Encounter Details Date Type Department Care Team Description 10/28/2022 Telephone Cardiology, [facility] [address] [place] [address] Wilmar Lay PA-C [address] [facility] [place] [address] FYI Allergies No known active allergiesdocumented as of this encounter (statuses as of 10/29/2022) Medications Medication Sig Dispensed Refills Start Date End Date Status VITAMIN D 2000 UNITS PO TABS one tablet daily 0 Activ e nitroglycerin (NITROSTAT) 0.4 MG SUBLIndications:Cor onary artery disease involving [place] coronary artery of [place] heart without angina pectoris,Myocardial infarction involving other [...] (automatic cardioverter/defibr illator) present,Coronary artery disease of [place] artery of [place] heart with stable angina pectoris (HCC) Take 1 tablet on Wed, Wed, and Wed 45 Tablet 3 04/17/2022 Active Digoxin 125 MCG Oral Tablet (Lanoxin)Indication s:Coronary artery disease involving [place] coronary artery of [place] heart without angina pectoris,Chronic atrial fibrillation (HCC) [...] as of this encounter (statuses as of 10/29/2022) Active Problems Problem Noted Date AICD (automatic cardioverter/defibrillat or) present 02/10/2013 Heart failure, systolic, due to CAD 06/2013 Ischemic cardiomyopathy 01/06/2013 Atrial fibrillation 01/06/2013 CAD (coronary artery disease) 07/25/2012 CT (myocardial infarction) 07/25/2012 documented as of this encounter (statuses as of 10/29/2022) Immunizations Name Administration Dates Next Due COVID-19 [...] encounter Miscellaneous Notes * Telephone Encounter - Wilmar Lay PA-C - 10/29/2022 9:58 AM EST Noted. Wilmar Hoover * Telephone Encounter - KEITH Avelar - 10/28/2022 4:48 PM EST pts called the medication she said Wilmar Lay wanted to know Levothyroxine Sodium 75 MCG Oral Tablet (Levoxyl) Has been at 75 mcg for at least a year All the other medications are correct and pt has been taking them for at least a year or more Thank you KEITH Avelar documented in this encounter Plan of Treatment Upcoming Encounters Date Type Specialty Care Team Description 11/16/2022 Anticoagulation Pharmacy Pharmacist1, [facility] Sp [address] [place] [address] 12/14/2022 [facility] [address] [place] [address] 01/07/2023 Office Visit Cardiology Denis Langston MD [address] [place] [address] 03/25/2023 Cardiac Studies Cardiology Isi Yu [facility] [address] [place] [address] Health Maintenance Due Date Last Done Comments [...] filedocumented as of this encounter Care Teams Pipeline Controller Relationship Specialty Start Date End Date Hank Oshea MD [address] [place] [address] PCP - General Internal Medicine 08/13/14 documented as of this encounter
--- OUTSIDE RECORDS SUMMARY | 2023-09-08 00:39 | External Medical Summary | Summary of Care ---
Author Name Unknown Organization [place] [address] Care Team Providers Care Wafer Production Worker Name Role Phone Hank Oshea MD Primary Care Provider [phone] Reason for Visit * Reason Onset Date Comments FYI 10/28/2022 Encounter Details Date Type Department Care Team Description 10/28/2022 Telephone Cardiology, [facility] [address] [employer] [place] [address] Wilmar Lay PA-C [address] [employer] [facility] [place] [address] FYI Allergies No known active allergiesdocumented as of this encounter (statuses as of 10/28/2022) Medications Medication Sig Dispensed Refills Start Date End Date Status VITAMIN D 2000 UNITS PO TABS one tablet daily 0 Activ e nitroglycerin (NITROSTAT) 0.4 MG SUBLIndications:Cor onary artery disease involving [place] coronary artery of [place] heart without angina pectoris,Myocardial infarction involving other [...] (automatic cardioverter/defibr illator) present,Coronary artery disease of [place] artery of [place] heart with stable angina pectoris (HCC) Take 1 tablet on Wed, Wed, and Wed 45 Tablet 3 04/17/2022 Active Digoxin 125 MCG Oral Tablet (Lanoxin)Indication s:Coronary artery disease involving [place] coronary artery of [place] heart without angina pectoris,Chronic atrial fibrillation (HCC) [...] as of this encounter (statuses as of 10/28/2022) Active Problems Problem Noted Date AICD (automatic cardioverter/defibrillat or) present 02/10/2013 Heart failure, systolic, due to CAD 06/2013 Ischemic cardiomyopathy 01/06/2013 Atrial fibrillation 01/06/2013 CAD (coronary artery disease) 07/25/2012 [place] (myocardial infarction) 07/25/2012 documented as of this encounter (statuses as of 10/28/2022) Immunizations Name Administration Dates Next Due COVID-19 [...] Miscellaneous Notes * Telephone Encounter - KEITH Avelar - [...] Care Team Description 11/16/2022 Anticoagulation Pharmacy Pharmacist1, [facility] 200 [place] [address] 12/14/2022 Cardiac Studies Cardiology [facility] 132 [facility] [place] [address] 01/07/2023 Office Visit Cardiology Denis Langston MD 132 [facility] [place] [address] 03/25/2023 Cardiac Studies Cardiology [facility] Pacer [facility] 132 [facility] [place] [address] Health Maintenance Due Date Last Done Comments [...] exists TSH FOR THYROID MEDICATION MONITORING YEARLY 06/12/2023 06/12/2022, 10/06/2021, 03/21/2021, Additional history exists DTaP,Tdap,and Td Vaccines (2 [...] filedocumented as of this encounter Care Teams Wafer Production Worker Relationship Specialty Start Date End Date Hank Oshea MD [address] [address] PCP - General Internal Medicine 08/13/14 documented as of this encounter
--- OUTSIDE RECORDS SUMMARY | 2023-09-08 00:39 | External Medical Summary ---
Author Name Unknown Address Unknown Organization [id number]:[facility] [place] [address] [place] [address] Laboratory Report Ordering Provider Test Date Status ROXANA MAYA 10/28/2022 15:16:52 Final Observation Date Value Abnormality Reference (Units ) Status WBC, Total 10/28/2022 15:16:52 6.42 4.00-10.8 0 (K/uL) Final RBC 10/28/2022 15:16:52 3.96 4.50-5.25 (M/uL) Final Hemoglobin 10/28/2022 15:16:52 13.5 Below low normal 14 .0-16.8 (g/dL) Final HCT 10/28/2022 15:16:52 40.2 40.0-48.4 (%) Final MCV 10/28/2022 15:16:52 101.5 82.0-99.5 (fL) Final MCH 10/28/2022 15:16:52 34.1 27.0-34.0 (pg) Final MCHC 10/28/2022 15:16:52 33.6 32.0-36.0 (g/dL) Final RDW 10/28/2022 15:16:52 13.6 11.5-15.5 (%) Final Platelets 10/28/2022 15:16:52 154 140-400 (K /uL) Final MPV 10/28/2022 15:16:52 10.4 6.6-11.1 ( fL) Final Performing Location [facility] [address] [place] [address]
--- OUTSIDE RECORDS SUMMARY | 2023-09-08 00:39 | External Medical Summary | Summary of Care ---
Author Name Unknown Organization [place] [address] Care Team Providers Care Curriculum And Instruction Specialist Name Role Phone Hank Oshea MD Primary Care Provider Reason for Visit * Reason Comments Dosage Adjustment In Person (Anticoag Cl inic) Encounter Details Date Type Department Care Team Description 10/05/2022 Anticoagulation Pharmacy, [facility] 200 [place] [address] Pharmacist1, [facility] 200 [place] [address] Myocardial infarction, unspecified [place] type, unspecified artery (HCC)*; Chronic atrial fibrillation (HCC); Atrial fibrillation, unspecified type (HCC); Anticoagulation management encounter; [facility] 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 therapy Allergies No known active allergiesdocumented as of this encounter (statuses as of 10/05/2022) Medications Medication Sig Dispensed Refills Start Date End Date Status VITAMIN D 2000 UNITS PO TABS one tablet daily 0 Active nitroglycerin (NITROSTAT) 0.4 MG SUBLIndications:Coron [place] artery disease involving [place] coronary artery of [place] heart without angina pectoris,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 25 Tab 11 07/21/2016 Active Coenzyme Q10 (COQ10) 200 MG CAPS Take 1 Cap by mouth daily. 0 Active Cetirizine HCl (ZYRTEC ALLERGY) 10 MG Capsule Take 10 mg by mouth daily. 0 Active levothyroxine (LEVOXYL) 50 MCG Tablet Take 75 mcg by mouth daily. 3 07/30/2019 Active Clopidogrel Bisulfate 75 MG Oral Tablet (pLAVix)Indications:P ermanent atrial fibrillation (HCC) Take 1 Tablet by mouth daily. 90 Tablet 3 10/06/2021 Active Furosemide 20 MG Oral Tablet (Lasix) Take by mouth 40 mg daily . 270 Tablet 3 01/01/2022 Active Warfarin Sodium 5 MG Oral Tablet (Coumadin)Indications :Atrial fibrillation (HCC) TAKE 1/2 TAB MON, WED, WED (2.5mg) AND ONE TAB (5MG) ALL OTHER DAYS 70 Tablet 3 03/06/2022 Active Metoprolol Succinate ER 50 MG Oral Tablet Extended Release 24 Hour (toPROL XL)Indications:Atrial fibrillation, unspecified type (HCC) Take 1 tablet by mouth twice daily 180 Tablet 3 04/01/2022 Active Rosuvastatin Calcium 5 MG Oral Tablet (Crestor)Indications: Heart failure, systolic, due to CAD (HCC),Ischemic cardiomyopathy,AICD (automatic cardioverter/defibril lator) present,Coronary artery disease of [place] artery of [place] heart with stable angina pectoris (HCC) Take 1 tablet on Wed, Wed, and Wed 45 Tablet 3 04/17/2022 Active Digoxin 125 MCG Oral Tablet (Lanoxin)Indications: Coronary artery disease involving [place] coronary artery of [place] heart without angina pectoris,Chronic atrial fibrillation (HCC) TAKE ONE TABLET BY MOUTH ON WEDNESDAY, WEDNESDAY AND WEDNESDAY 28 Tablet 11 07/01/2022 Active Entresto 24-26 MG Oral Tablet (sacubitril-valsartan 24-26 mg per tab)Indications:Ische maryam cardiomyopathy,Heart failure, systolic, due to CAD (HCC) Take 1/2 tab each am and pm 90 Tablet 3 09/07/2022 Active documented as of this encounter (statuses as of 10/05/2022) Active Problems Problem Noted Date AICD (automatic cardioverter/defibrillat or) present 02/10/2013 Heart failure, systolic, due to CAD 06/2013 Ischemic cardiomyopathy 01/06/2013 Atrial fibrillation 01/06/2013 CAD (coronary artery disease) 07/25/2012 [place] (myocardial infarction) 07/25/2012 documented as of this encounter (statuses as of 10/05/2022) Immunizations Name Administration Dates Next Due COVID-19 mRNA, LNP-s, No Pre serve, 2-Dose Series (Moderna) 04/14/2022,09/09/2021,01/21/2021, 021 DTaP - Dipth/Tet/Acell Pertussis 07/29/2017 Seasonal Influenza, Split, I IV3, With Preserve, [...] Progress Notes * Anibal Raymundo RPh - 10/05/2022 10:59 AM EST [...] 10/05/2022 11:06 AM documented in this encounter Plan of Treatment Upcoming Encounters Date Type Specialty Care Team Description 10/15/2022 Pharmacy Mortgage Loan Counselor, Pharmacy Reimbursement [address] [place] [address] 10/28/2022 Office Visit Cardiology Wilmar Lay PA-C 132 [facility] [place] [address] 11/16/2022 Anticoagulation Pharmacy Pharmacist1, [facility] Sp 200 [facility], [place] [address] 12/14/2022 Cardiac Studies Cardiology [facility] [address] [place] [address] 01/07/2023 Office Visit Cardiology Denis Langston MD [address] [place] [address] 03/25/2023 Cardiac Studies Cardiology [facility] [address] [place] [address] Health Maintenance Due Date Last Done Comments Hepatitis B (1 of 3 - 3-dose series) 1935 Pneumococcal Vaccine: 65+ Years (1 - PCV) 1940 Depression Screening, Annual for Pts 12 and Over 1946 Zoster Vaccines (1 of 2) 1984 COVID-19 Vaccine (5 - Booster for Moderna series) 06/09/2022 04/14/2022, 09/09/2021, 01/21/2021, Additional history exists Influenza Vaccine (FLU shot) (#1) 2022 07/29/2017, 08/08/2012 DIG LEVEL FOR MEDICATION MONITORING YEARLY 06/12/2023 06/12/2022, 01/27/2022, 10/06/2021, Additional history exists TSH FOR THYROID MEDICATION MONITORING YEARLY 06/12/2023 06/12/2022, 10/06/2021, 03/21/2021, Additional history exists DTaP,Tdap,and Td Vaccines (2 - Tdap) 07/29/2027 07/29/2017 GARDASIL-HPV IMMUNIZATION SERIES Aged Out No longer [...] 10/05/2022 11:02 AM EST Myocardial infarction, unspecified [place] type, unspecified artery (HCC) Atrial fibrillation, unspecified type (HCC) Anticoagulation management encounter [facility] 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 therapy documented in this encounter Results * INR FINGERSTICK, POINT OF CARE (10/05/2022 11:02 AM EST) Fingerstick INR 3.5 INR 11:04 AM EST [facility] Blood 10/05/2022 11:0 2 AM EST 10/05/2022 11:04 AM EST Narrative [facility] - 10/05/2022 11:04 AM EST Therapeutic ranges for non-operative patients: Prophylaxsis/treatment of DVT: (Range:2.0-3.0) Treatment of pulmonary embolism:(Range:2.0-3.0) Prevention of systemic embolism from: -tissue heart valves -acute myocardial infarction -valvular heart disease -atrial fibrillation (Range: 2.0-3.0) Mechanical prosthetic valves: (Range: 2.5-3.5) Anibal Caceres V, [facility] POINT OF CARE TE ST DOCKED DEVICE UNSOLICITED RESULTS [facility] [address] [place], [place] [id number] documented in this encounter Visit Diagnoses Diagnosis Myocardial infarction, unspecified [place] type, unspecified artery (HCC)- Primary Chronic atrial fibrillation (HCC) Atrial fibrillation Atrial fibrillation, unspecified type (HCC) Anticoagulation management encounter Encounter for therapeutic drug monitoring ocean transportation intermediary 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 therapy documented in this encounter Care Teams Curriculum And Instruction Specialist Relationship Specialty Start Date End Date Hank Oshea MD PCP - General Internal Medicine 08/13/14 documented as of this encounter
--- OUTSIDE RECORDS SUMMARY | 2023-09-08 00:39 | External Medical Summary | Summary of Care ---
Author Name Unknown Organization [place] [address] Care Team Providers Care Environmental Journalist Name Role Phone Hank Oshea MD Primary Care Provider [phone] Reason for Visit * Reason Comments Follow Up 6 month follow up. O ff balance at times. Denies chest pain, palpitations, dizziness, SOB and edema. Encounter Details Date Type Department Care Team Description 10/28/2022 Office Visit Cardiology, [facility] [address] [facility] [place] [id number] Wilmar Lay PA-C [address] [facility] [place] [address] Ischemic cardiomyopathy*; Heart failure, systolic, due to CAD (HCC); Chronic atrial fibrillation (HCC); Dyslipidemia, goal LDL below 70; Atrial flutter, unspecified type (HCC); Other forms of dyspnea; Atrial fibrillation, unspecified type ([facility]) Allergies No known active allergiesdocumented as of this encounter (statuses as of 10/31/2022) Medications Medication Sig Dispensed Refills Start Date End Date Status VITAMIN D 2000 UNITS PO TABS one tablet daily 0 Active nitroglycerin (NITROSTAT) 0.4 MG SUBLIndications: Coronary artery disease involving levelock coronary artery of levelock heart without angina pectoris,Myocard ial infarction involving [...] (automatic cardioverter/def ibrillator) present,Coronary artery disease of levelock artery of levelock heart with stable angina pectoris (HCC) Take 1 tablet on Wed, Wed, and Wed 45 Tablet 3 2 Active Digoxin 125 MCG Oral Tablet (Lanoxin)Indicat ions:Coronary artery disease involving levelock coronary artery of levelock heart without angina pectoris,Chronic atrial fibrillation (HCC) TAKE ONE TABLET BY MOUTH ON WEDNESDAY, WEDNESDAY AND WEDNESDAY 28 Tablet 11 2 Active Entresto 24-26 MG Oral Tablet (sacubitril-vals ivon 24-26 mg per tab)Indications: Ischemic cardiomyopathy,H eart failure, systolic, due to CAD (HCC) Take 1/2 tab each am and pm 90 Tablet 3 2 Active Levothyroxine Sodium 75 MCG Oral Tablet (Levoxyl) Take 1 Tablet by mouth in the morning. 0 2 Active Metoprolol Succinate ER 50 MG Oral Tablet Extended Release 24 Hour (toPROL XL)Indications:A trial fibrillation, unspecified type (HCC) Take 1.5 Tablets by mouth in the morning and 1.5 Tablets before bedtime. 270 Tablet 3 2 Active levothyroxine (LEVOXYL) 50 MCG Tablet Take 75 mcg by mouth daily. 3 9 10/28/20 22 Discontinued(Med ication/Dose Changed) Metoprolol Succinate ER 50 MG Oral Tablet Extended Release 24 Hour (toPROL XL)Indications:A trial fibrillation, unspecified type (HCC) Take 1 tablet by mouth twice daily 180 Tablet 3 2 10/28/20 22 Discontinued documented as of this encounter (statuses as of 10/31/2022) Active Problems Problem Noted Date AICD (automatic cardioverter/defibrillat or) present 02/10/2013 Heart failure, systolic, due to CAD 06/2013 Ischemic cardiomyopathy 01/06/2013 Atrial fibrillation 01/06/2013 CAD (coronary artery disease) 07/25/2012 DC (myocardial infarction) 07/25/2012 documented as of this encounter (statuses as of 10/31/2022) Immunizations Name Administration Dates Next Due COVID-19 [...] Sign Reading Time Taken Comments Blood Pressure 110/64 10/28/2022 2:27 PM EST Pulse 72 10/28/2022 2:27 PM EST Temperature 36.2 C (97.2 F) 10/28/2022 2:27 PM ES T Respiratory Rate 16 10/28/2022 2:27 PM EST Oxygen Saturation - - Inhaled Oxygen Concentration - - Weight 77.6 kg (171 lb) 10/28/2022 2:27 PM EST Height - - Body Mass Index 24.54 01/13/2022 12:34 PM EDT documented in this encounter Progress Notes * Wilmar Lay PA-C - 10/28/2022 2:37 PM EST History of Present Illness: Lucian Larson Jr. Is a very pleasant 86-year-old male here today for general cardiology follow-up Device check in September 2022 reviewed today, notable for decreased percentage of pacing, increasedheart rates EKG obtained today (October 28, 2022) due to the above, personally reviewed, revealing atrial flutter with a ventricular rate of 120 bpm, with 2:1 conduction, LAD, RBBB, old septal infarct, lateral T wave changes. QTc 446 ms. No interim medication changes. Both the patient and believe he is taking metoprolol 50 mg twice a day and digoxin three days per week though will verify today. Feeling pretty good. No tachypalpitations. No increased or unusual shortness of breath. No chest pain. Chronic cough productive of phlegm only, unchanged. No orthopnea, PND, or increased edema. Weight unchanged compared to prior evaluation. No lightheadedness, dizziness, near syncope, or syncope. No fevers or chills. No epistaxis, hemoptysis, melena, hematochezia, or hematuria. + Ambulatory dysfunction, now utilizing a rolling walker with wheels and breaks. Patient Active Problem List Diagnosis Code CAD (coronary artery disease) I25.10 DC (myocardial infarction) ([facility]) I21.9 Heart failure, systolic, due to CAD ([facility]) I50.20, I25.10 Ischemic cardiomyopathy I25.5 Atrial fibrillation ([facility]) I48.91 AICD (automatic cardioverter/defibrillator) present Z95.810 Review of patient's allergies indicates: No Known Allergies Current Outpatient Medications Medication Sig Dispense Refill VITAMIN D 2000 UNITS PO TABS one tablet daily Coenzyme Q10 (COQ10) 200 MG CAPS Take 1 Cap by mouth daily. Cetirizine HCl 10 MG Oral Capsule Take 1 Capsule by mouth in the morning. Clopidogrel Bisulfate 75 MG Oral Tablet (pLAVix) Take 1 Tablet by mouth daily. 90 Tablet 3 Furosemide 20 MG Oral Tablet (Lasix) Take 2 Tablets by mouth in the morning. 270 Tablet 3 Warfarin Sodium 5 MG Oral Tablet (Coumadin) TAKE 1/2 TAB MON, WED, FRI (2.5mg) [...] 1.5 Tablets before bedtime. 270 Tablet 3 nitroglycerin (NITROSTAT) 0.[address] 1 Tab under the tongue as needed for Pain, Chest. (Patient not taking: Reported on 10/28/2022) 25 Tab 11 No current facility-administered medications for this visit. Reflective of today's changes OBJECTIVE/PHYSICAL EXAMINATION: BP 110/64 | Pulse 72 | Temp 36.2 C (97.2 F) | Resp 16 | Wt 77.6 kg (171 lb) | BMI 24.54 kg/m | BSA 1.96 m General: A&Ox3. NAD. HENT: Normocephalic. Atraumatic. Eyes: PER. Conjunctiva pink, sclera clear. Neck: No carotid bruits. No overt JVD. Heart: Distant heart sounds. Irregularly irregular 120 bpm. No murmur appreciated. No rub. No gallop. PMI is nondisplaced. Lungs: Bibasilar rales. Decreased at the left base. Abdomen: +BS. Soft. Nontender. No masses or organomegaly. Extremities: Trace to 1+ edema. No clubbing. No cyanosis. Limited neurological [...] pulmonary artery systolic pressure is 35-40mm Hg. Device interrogation on September 01, 2022 demonstrated appropriate function. Medtronic single-chamber ICD with backup pacemaker set VVIR, 50 bpm. Estimated remaining longevity: 10.9 years. RV paced 53.7%. Elevated average ventricular rates noted since August. Optivol below threshold. Component 06/12/2022 BUN 26 (H) Creatinine 1.3 (H) Estimated Glomerular Filtration Rate 53 (L) Sodium 140 Potassium 4.9 Chloride 101 CO2 26 Anion Gap 13 Glucose 82 Albumin 4.3 AST 20 Alkaline Phosphatase 108 Bilirubin, Total 0.9 Calcium 9.7 Protein 7.1 ALT 13 WBC 6.47 RBC 4.23 HGB 13.9 (L) HCT 41.8 MCV 98.8 MCH 32.9 MCHC 33.3 RDW 14.2 PLT 152 MPV 10.5 Hemoglobin A1C 5.7 (H) Estimated Average Glucose 117 LDL Cholesterol (Direct Measure) 58 Magnesium 2.3 Digoxin Level 0.9 TSH 2.08 ASSESSMENT: 1. Atrial flutter with rapid ventricular response, asymptomatic, chronically anticoagulated with Coumadin due to history of chronic atrial fibrillation 2. Systolic congestive heart failure. Volume status: Asymptomatic mild hypervolemia 3. 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 4. History of acute decompensation in the setting of elevated heart rate, receiving stenting to therecannulated left anterior descending and attempted stent into the proximal right coronary artery in May 2014. 5. Severe ischemic cardiomyopathy, with LVEF 20 to 24%. 6. Status post January 2013 single-chamber ICD implantation 7. Status post January 28, 2022 attempted upgrade to a biventricular ICD, unsuccessful, status post single-chamber ICD generator exchange by Dr. aDvidson at [facility] 8. Frequent ventricular ectopy 9. Atherosclerotic coronary disease 10. Dyslipidemia. LDL 58 mg/dL on 06/12/2022. Options discussed with patient and . Plan as outlined below. RECOMMENDATIONS/PLAN: 1. Nonfasting laboratory work today. 2. Verify all medications, specifically metoprolol and digoxin. 3. If taking metoprolol succinate 50 mg twice per day and digoxin 3 days per week, increase metoprolol succinate dosing to 75 mg twice per day for heart rate control. 4. Device interrogation due next on December 14, 2022. Benefits, use, and risks of the above explained. Instructions written. Medication list updated. Prescription for metoprolol sent to the pharmacy of his choice electronically. Laboratory work ordered.Cardiology follow-up in 2-3 months or as needed. ER with emergencies. Wilmar Lay PA-C Department of Cardiology documented in this encounter Procedure Notes * Rod Jane Jr., DO - 10/28/2022 2:46 PM ESTAssociated Order(s): EKG REASON FOR STUDY: elevated hr on device check CONCLUSIONS: Atrial flutter with 2:1 A-V conduction Left axis deviation Right bundle branch block Septal infarct , age undetermined T wave abnormality, consider lateral ischemia Abnormal ECG When compared with ECG of 13-JAN-2022 12:03, Atrial flutter has replaced Electronic pacemaker detected Vent. rate has increased BY 70 BPM Ventricular Rate: 120 Atrial Rate: 240 QRS Duration: 138 QT/QTc: 316/446 ms P-R-T [place]: -66 : -71 : 152 degrees documented in this encounter Nursing Notes * Rebel Durant LPN - 10/28/2022 2:27 PM EST Patient identified by full name and date of Chief Complaint Patient presents with Follow Up 6 month follow up. Off balance at times. Denies chest pain, palpitations, dizziness, SOB and edema. Examination Room: 2 Name: Lucian Larson Jr. Date of : (1935). Reason for Visit: 6 month follow up Interim Hospitalization(s): Denies Problems/Concerns: See chief complaint Chest Pain/SOB: Denies [facility] Discussed: Not applicable [...] Laboratory [facility] [place], Lab Scen[address] [place] [address] 11/16/2022 Anticoagulation Pharmacy Pharmacist1, [facility] [address] [place] [address] 12/14/2022 Cardiac Studies Cardiology [facility] [address] [facility] [address] 12/29/2022 Laboratory Laboratory [place], Lab Scenery [address] [place] [address] 01/07/2023 Office Visit Cardiology Denis Langston MD [address] [facility] [address] 03/25/2023 Cardiac Studies Cardiology [facility] [address] [facility] [place] [address] Health Maintenance Due Date Last Done Comments [...] Procedure Name Priority Date/Time Associated Diagnosis Comments [place] ECG ROUTINE ECG W/LEAST 12 LDS W/I&R Routine 10/28/2022 2:46 PM EST Atrial flutter, unspecified type (HCC) documented in this encounter Results * MAGNESIUM (10/28/2022 3:16 PM EST) Magnesium 2.5 1.5 - 2.6 mg/dL 10/28/2022 10:16 PM EST LAB[facility]AT[facility] Blood Venous blood specimen / Unknown Venipuncture / Unknown 10/28/2022 3:16 PM EST 10/28/2022 3:16 PM EST Wilmar Lay PA-C LAB BLOOD ORDERABLE S LABORATORY [facility] [address] [place] [address] * (ABNORMAL) BASIC METABOLIC PANEL (10/28/2022 3:16 PM EST) BUN 27(H) 6 - 20 mg/dL 10/28/2022 9:55 PM EST LABORATORY [facility] Creatinine 1.3(H) 0.6 - 1.2 mg/dL 10/28/2022 9:55 PM EST LAB[facility]ORY [facility] Estimated Glomerular Filtration Rate 52(L) >=60 mL/min 10/28/2022 9:55 PM EST LAB[facility]ORY [facility] Comment:eGFR is calculated b ased on the CKD-EPI 2020 equation Sodium 142 135 - 146 mmol/L 10/28/2022 9:55 PM EST [facility] Potassium 5.3(H) 3.5 - 5.1 mmol/L 10/28/2022 9:55 PM EST [facility] Chloride 105 98 - 107 mmol/L 10/28/2022 9:55 PM EST [facility] CO2 29 22 - 32 mmol/L 10/28/2022 9:55 PM EST [facility] Anion Gap 8 7 - 15 mmol/L 10/28/2022 9:55 PM EST [facility] Glucose 74 70 - 120 mg/dL 10/28/2022 9:55 PM EST [facility] Calcium 9.6 8.4 - 10.2 mg/dL 10/28/2022 9:55 PM EST [facility] Blood Venous blood specimen / Unknown Venipuncture / Unknown 10/28/2022 3:16 PM EST 10/28/2022 3:16 PM EST Wilmar Lay PA-C LAB BLOOD ORDERABLE S LABORATORY [facility] [address] [place] [address] * (ABNORMAL) CBC (10/28/2022 3:16 PM EST) WBC 6.42 4.00 - 10.80 K/uL 10/28/2022 3:23 PM EST LABORATORY [place] 57-10 RBC 3.96 4.50 - 5.25 M/uL 10/28/2022 3:23 PM EST LABORATORY [place] 57-10 HGB 13.5(L) 14.0 - 16.8 g/dL 10/28/2022 3:23 PM EST LABORATORY [place] 57-10 HCT 40.2 40.0 - 48.4 % 10/28/2022 3:23 PM EST LABORATORY [place] 57-10 MCV 101.5 82.0 - 99.5 fL 10/28/2022 3:23 PM EST LAB[facility]ORY [facility] 57-10 MCH 34.1 27.0 - 34.0 pg 10/28/2022 3:23 PM EST LABORATORY [facility] 57-10 MCHC 33.6 32.0 - 36.0 g/dL 10/28/2022 3:23 PM EST LABORATORY [facility] 57-10 RDW 13.6 11.5 - 15.5 % 10/28/2022 3:23 PM EST LABORATORY [facility] 57-10 PLT 154 140 - 400 K/uL 10/28/2022 3:23 PM EST LABORATORY [facility] 57-10 MPV 10.4 6.6 - 11.1 fL 10/28/2022 3:23 PM EST LABORATORY [facility] 57-10 Blood Venous blood specimen / Unknown Venipuncture / Unknown 10/28/2022 3:16 PM EST 10/28/2022 3:16 PM EST Wilmar Shah Rosanne TERRELL-C LAB BLOOD ORDERABLE S LABORATORY [place] 57-10 [address] [place] [address] * (ABNORMAL) TSH (10/28/2022 3:16 PM EST) TSH 4.63(H) 0.27 - 4.20 uIU/mL 10/28/2022 10:48 PM EST LABORATORY [facility] Blood Venous blood specimen / Unknown Venipuncture / Unknown 10/28/2022 3:16 PM EST 10/28/2022 3:16 PM EST Wilmar Shah Rosanne PA-C LAB BLOOD ORDERABLE S LAB[facility]ATORY [facility] [address] [place] [address] * EKG (10/28/2022 2:46 PM EST) 10/28/2022 2:46 PM EST Procedure Note Rod José Miguel Buck Jr., DO - 10/28/2022 2:46 PM EST REASON FOR STUDY: elevated hr on device check CONCLUSIONS: Atrial flutter with 2:1 A-V conduction Left axis deviation Right bundle branch block Septal infarct , age undetermined T wave abnormality, consider lateral ischemia Abnormal ECG When compared with ECG of 13-JAN-2022 12:03, Atrial flutter has replaced Electronic pacemaker detected Vent. rate has increased BY 70 BPM Ventricular Rate: 120 Atrial Rate: 240 QRS Duration: 138 QT/QTc: 316/446 ms P-R-T [place]: -66 : -71 : 152 degrees Wilmar Lay PA-C EKG Performing Organization Address City/State/[facility] Co de Phone Number [facility] documented in this encounter Visit Diagnoses Diagnosis Ischemic cardiomyopathy- Primary Other specified forms of chronic ischemic heart disease Heart failure, systolic, due to CAD (HCC) Unspecified systolic heart failure Chronic atrial fibrillation (HCC) Atrial fibrillation Dyslipidemia, goal LDL below 70 Other and unspecified hyperlipidemia Atrial flutter, unspecified type (HCC) Other forms of dyspnea Atrial fibrillation, unspecified type (HCC) documented in this encounter Care Teams Environmental Journalist Relationship Specialty Start Date End Date Hank Oshea MD [address] [place] [address] PCP - General Internal Medicine 08/13/14 documented as of this encounter"
--- OUTSIDE RECORDS SUMMARY | 2023-09-08 00:39 | External Medical Summary | Summary of Care ---
Author Name Unknown Organization [place] [address] Care Team Providers Care Dental Manager Name Role Phone Hank Oshea MD Primary Care Provider Reason for Visit * Reason Comments Defibrillator Clinic Encounter Details Date Type Department Care Team Description 09/02/2022 Cardiac Studies Cardiology, [facility] [place] [address] [place], Pacer Clinic [facility] 132 [facility] [address] Ischemic cardiomyopathy*; Chronic atrial fibrillation (HCC); AICD (automatic cardioverter/defibril lator) present Allergies No known active allergiesdocumented as of this encounter (statuses as of 09/02/2022) Medications Medication Sig Dispensed Refills Start Date End Date Status VITAMIN D 2000 UNITS PO TABS one tablet daily 0 Active nitroglycerin (NITROSTAT) 0.4 MG SUBLIndications:Coron richardson artery disease involving tanana coronary artery of tanana heart without angina pectoris,Myocardial infarction involving other [...] mouth daily. 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) Take 1 tablet on Wed, Wed, and Wed 45 Tablet 3 04/17/2022 Active Digoxin 125 MCG Oral Tablet (Lanoxin)Indications: Coronary artery disease involving tanana coronary artery of tanana heart without angina pectoris,Chronic atrial fibrillation (HCC) TAKE ONE TABLET BY MOUTH ON WEDNESDAY, WEDNESDAY AND WEDNESDAY 28 Tablet 11 07/01/2022 Active documented as of this encounter (statuses as of 09/02/2022) Active Problems Problem Noted Date AICD (automatic cardioverter/defibrillat or) present 02/10/2013 Heart failure, systolic, due to CAD 06/2013 Ischemic cardiomyopathy 01/06/2013 Atrial fibrillation 01/06/2013 CAD (coronary artery disease) 07/25/2012 NV (myocardial infarction) 07/25/2012 documented as of this encounter (statuses as of 09/02/2022) Immunizations Name Administration Dates Next Due COVID-19 mRNA, LNP-s, No Pre serve, 2-Dose Series (Moderna) 04/14/2022,09/09/2021,01/21/2021, 021 DTaP - Dipth/Tet/Acell Pertussis 07/29/2017 Seasonal Influenza, Split, I IV3, With Preserve, Inj 07/29/2017,08/08/2012 documented as of this encounter Social History Tobacco Use Types Packs/Day Years Used Date Former Smoker Cigarettes, Pipe 1 45 Quit: 03/27/1995 Smokeless Tobacco: Never Used Alcohol Use Standard Drinks/Week Comments Yes 0 (1 standard drink = 0.6 oz pur e alcohol) occasionally Alcohol Habits Answer Date Recorded How often do you have a drink containing alcohol ? Not asked How many drinks containing a lcohol do you have on a typical day when you are drinking? Not asked How often do you have six or more drinks on one occasion? Not asked Comment: occasionally 11/17/2012 Sex Assigned at Date Recorded Not on file Job Start Date Occupation Industry Not on file Not on file Not on file documented as of this encounter Progress Notes * GHULAM Pino - 09/02/2022 1:41 PM EDT REMOTE MONITORING TRANSMISSION - DEFIBRILLATOR -- 09/02/2022 TYPE OF VISIT: This is a scheduled remote monitoring transmission. INDICATION: I25.5 Ischemic cardiomyopathy (primary encounter diagnosis) I48.20 Chronic atrial fibrillation (HCC) Z95.810 AICD (automatic cardioverter/defibrillator) present IMPLANTING PHYSICIAN:Dr. Cindi Davidson DO. IMPLANT/DEVICE HISTORY:January 28, 2022 CURRENT SYSTEM: ICD:MedtronicModel:Vis ia AF MRI [id number] RV lead:MedtronicModel:[id number] SN: [id number](02-02-2013) OLDSYSTEM: ICD: Medtronic, model - Eric II VR [id number] SN: [id number] Implant: 02-02-2013(Explanted 01/28/22) Abandoned leads: None ALERTS/ADVISORIES:None PATIENT EVALUATION: Presenting rhythm : RV paced rhythm DEVICE EVALUATION: RV Auto threshold: 0.625 volts at 0.4 msec Sensin.8 mV Pacing impedance:475 ohms Percentage paced:53.7 % HVLI: 52 ohms Battery: 3.02 volts (10.9 years) PANCHO: 2.73 volts Charge time: 3.9 seconds Short V-V intervals: 0 PVC singles: 150.9 / hour in a 105 day period (this is an increase) AF episodes:16 with an Atrial Fibrillation [place] of 0.1 %. The longest episode is 24 minutes. Thoracic impedance monitoring: Fluid index reveals a baseline thoracic impedance indicating normal fluid status. VT/VF episodes (since last evaluation): 7 VT nonsustained episodes of which the longest is 3 seconds with a ventricular rate of 162 bpm. 145 VT episodes of which the longest is 1 minute and 38 seconds with a ventricular rate of 135 bpm (Report showing night heart rates over 85 bpm for 7 days) Past VT/VF episodes: First shock: 0 Most recent shock: 0 Total ICD shocks/ATP therapy: Appropriate shocks: 0 Inappropriate shocks: 0 ATP therapy: 0 FINAL ICD PARAMETERS: Pacemaker mode/rate:VVIRat 50bpm RV Amplitude: 1.5Volts Pulse width:0. 4msec VT detection:ON Rate - 167 - 200 bpm(Burst ( 3 ), 35 joules x5) FVT detection:OFF VF detection:ON Rate - >200bpm ( ATP during charging, 35 joules x 6 ) Mode switch:OFF IMPRESSION: Normal defibrillator function. Adequate battery reserve PLAN: The next remote monitoring transmission is scheduled for 3 months. Nurse: Addi Vaughn [facility] PATROL JUDGE: Dr. Langston This patient was seen in the Heart Rhythm Device clinic by the device hazardous waste technician. The device function was found to be normal. No changes were made to the programmed parameters. I have personally reviewed the results of the device evaluation and I agree with the hazardous waste technician's finding, conclusions and disposition. Denis Langston MD documented in this encounter Plan of Treatment Upcoming Encounters Date Type Specialty Care Team Description 10/05/2022 Anticoagulation Pharmacy Pharmacist1, [facility] 200 [facility] [place] [place] [address] 10/15/2022 Pharmacy Ssis Developer, Pharmacy Reimbursement [address] [place] [address] 10/28/2022 Office Visit Cardiology Wilmar Lay PA-C [address] [place] [address] 12/14/2022 Cardiac Studies Cardiology [facility] [address] [place] [address] 01/07/2023 Office Visit Cardiology Denis Langston MD [address] [place] [address] 03/25/2023 Cardiac Studies Cardiology [facility] [address] [place] [address] Scheduled Orders Name Type Priority Associated Diagnoses Orde r Schedule DEFIBRILLATOR REMOTE INTERROGATION EVAL/INTERP,TO 90D Procedures Routine Ischemic cardiomyopathy Chronic atrial fibrillation (HCC) AICD (automatic cardioverter/defibrilla tor) present Ordered: 09/02/2022 PACER/ICD REMOTE DATA CAPTURE/TECH REVIEW,90D Procedures Routine Ischemic cardiomyopathy Chronic atrial fibrillation (HCC) AICD (automatic cardioverter/defibrilla tor) present Ordered: 09/02/2022 Health Maintenance Due Date Last Done Comments [...] this topic documented as of this encounter Implants Not on filedocumented as of this encounter Visit Diagnoses Diagnosis Ischemic cardiomyopathy- Primary Other specified forms of chronic ischemic heart disease Chronic atrial fibrillation (HCC) Atrial fibrillation AICD (automatic cardioverter/defibrillator) present Automatic implantable cardiac defibrillator in situ documented in this encounter Advance Directives Documents on File Type Date Recorded Patient Intermediate Card Tender Expl anation Advanced Directive Advanced Directive Advanced Directive Advanced Directive Advanced Directive Advanced Directive Advanced Directive Advanced Directive Advanced Directive Advanced Directive Advanced Directive Advanced Directive Advanced Directive Advanced Directive Advanced Directive Advanced Directive Advanced Directive Advanced Directive Advanced Directive Advanced Directive Advanced Directive Advanced Directive Advanced Directive Advanced Directive Advanced Directive Advanced Directive Advanced Directive Advanced Directive Advanced Directive Advanced Directive Advanced Directive Advanced Directive Advanced Directive Advanced Directive Advanced Directive Advanced Directive Advanced Directive Advanced Directive Advanced Directive Advanced Directive Advanced Directive Advanced Directive Advanced Directive Advanced Directive Advanced Directive Advanced Directive Advanced Directive Advanced Directive Advanced Directive Advanced Directive Advanced Directive Advanced Directive Advanced Directive Advanced Directive Advanced Directive Advanced Directive Advanced Directive Advanced Directive Advanced Directive Advanced Directive Advanced Directive Advanced Directive Advanced Directive Advanced Directive Advanced Directive Advanced Directive Advanced Directive Advanced Directive Advanced Directive Advanced Directive Advanced Directive Advanced Directive Advanced Directive Advanced Directive Advanced Directive Advanced Directive Advanced Directive Advanced Directive Advanced Directive Advanced Directive Advanced Directive Advanced Directive Advanced Directive Advanced Directive Advanced Directive Advanced Directive Advanced Directive Advanced Directive Advanced Directive Advanced Directive Advanced Directive Advanced Directive Advanced Directive Advanced Directive Advanced Directive Advanced Directive Advanced Directive Advanced Directive 01/26/2013 11:57 AM Care Teams Dental Manager Relationship Specialty Start Date End Date Hank Oshea MD PCP - General Internal Medicine 08/13/14 documented as of this encounter
--- OUTSIDE RECORDS SUMMARY | 2023-09-08 00:39 | External Medical Summary ---
Author Name Unknown Address Unknown Organization K09:[facility] [place] [address] Laboratory Report Ordering Provider Test Date Status JENNIFER LOPEZ V 10/05/2022 11:02:53 Final Therapeutic ranges for non-o perative patients:
Prophylaxsis/treatment of DVT: (Range:2.0-3.0)
Treatment of pulmonary embolism:(Range:2.0-3.0)
Prevention of systemic embolism from:
-tissue heart valves
-acute myocardial infarction
-valvular heart disease
-atrial fibrillation
(Range: 2.0-3.0)
Mechanical prosthetic valves: (Range: 2.5-3.5) Observation Date Value Abnormality Reference (Units ) Status INR in Capillary blood by Coagulation assay 10/05/2022 11:02:53 3.5 (INR) Final Performing Location [facility] [place] [address]
--- OUTSIDE RECORDS SUMMARY | 2023-09-08 00:39 | External Medical Summary ---
Author Name Unknown Address Unknown Organization K01:[facility] [address] [place] [address] Laboratory Report Ordering Provider Test Date Status ROXANA MAYA 10/28/2022 15:16:52 Final Observation Date Value Abnormality Reference (Units ) Status Magnesium 10/28/2022 15:16:52 2.5 1.5-2.6 (m g/dL) Final Performing Location [facility] [address] [place] [address]
--- OUTSIDE RECORDS SUMMARY | 2023-09-08 00:39 | External Medical Summary | Summary of Care ---
Author Name Unknown Organization [place] [address] Care Team Providers Care Pv Design Engineer Name Role Phone Hank Oshea MD Primary Care Provider Reason for Visit * Reason Comments Dosage Adjustment In Person (Anticoag Cl inic) Encounter Details Date Type Department Care Team Description 08/24/2022 Anticoagulation Pharmacy, [facility] 200 [facility] [place] [address] Pharmacist1, [facility] 200 [facility] [address] Myocardial infarction, unspecified MS type, unspecified artery (HCC)*; Atrial fibrillation, unspecified type (HCC); Anticoagulation management encounter; 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 Allergies No known active allergiesdocumented as of this encounter (statuses as of 08/24/2022) Medications Medication Sig Dispensed Refills Start Date End Date Status VITAMIN D 2000 UNITS PO TABS one tablet daily 0 Active nitroglycerin (NITROSTAT) 0.4 MG SUBLIndications:Coron richardson artery disease involving lumbee coronary artery of lumbee heart without angina pectoris,Myocardial infarction involving other [...] (automatic cardioverter/defibril lator) present,Coronary artery disease of lumbee artery of lumbee heart with stable angina pectoris (HCC) Take 1 tablet on Wed, Wed, and Wed 45 Tablet 3 04/17/2022 Active Digoxin 125 MCG Oral Tablet (Lanoxin)Indications: Coronary artery disease involving lumbee coronary artery of lumbee heart without angina pectoris,Chronic atrial fibrillation (HCC) TAKE ONE TABLET BY MOUTH ON WEDNESDAY, WEDNESDAY AND WEDNESDAY 28 Tablet 11 07/01/2022 Active documented as of this encounter (statuses as of 08/24/2022) Active Problems Problem Noted Date AICD (automatic cardioverter/defibrillat or) present 02/10/2013 Heart failure, systolic, due to CAD 06/2013 Ischemic cardiomyopathy 01/06/2013 Atrial fibrillation 01/06/2013 CAD (coronary artery disease) 07/25/2012 MS (myocardial infarction) 07/25/2012 documented as of this encounter (statuses as of 08/24/2022) Immunizations Name Administration Dates Next Due COVID-19 [...] Progress Notes * Anibal Raymundo RPh - 08/24/2022 10:55 AM EDT Medication Therapy Disease Management - Anticoagulation Lucian Larson Jr. 1935 Patient Findings Negatives: Signs/symptoms of thrombosis, Signs/symptoms of bleeding, Change in health, Change in alcohol use, Change in activity, Upcoming invasive procedure, Missed doses, Extra doses, Change in medications, Change in diet/appetite, Bruising INR Result As of 08/24/2022 INR goal: 2.0-3.0 INR used for dosin.4 (08/24/2022) Warfarin Plan As of 08/24/2022 Full warfarin instructions: 2.5 mg every Mon, Wed, Fri; 5 mg all other days No change documented: Anibal Raymundo RPh Next INR check: 10/05/2022 Repeat PT/INR in 6 week(s) Weekly dose: not changed Anibal Caceres RPh, CACP, CDE Clinical Pharmacist Medication Therapy Management Clinic 08/24/2022 11:01 AM documented in this encounter Plan of Treatment Upcoming Encounters Date Type Specialty Care Team Description 09/02/2022 Cardiac Studies Cardiology [place], Pacer Clinic Antonella [place] 132 [facility] [place] [address] 10/05/2022 Anticoagulation Pharmacy Pharmacist1, [facility] 200 [facility] [address] 10/15/2022 Pharmacy Turret Lathe Machinist, Pharmacy Reimbursement [address] [place], [place] [id number] 10/28/2022 Office Visit Cardiology [facility] [address] 12/14/2022 Cardiac Studies Cardiology [facility] 132 [facility] [place] [address] 01/07/2023 Office Visit Cardiology Denis Langston MD 132 [facility] [place] [address] 03/25/2023 Cardiac Studies Cardiology [facility] [place] [address] Scheduled Orders Name Type Priority Associated Diagnoses Orde r Schedule PT INR Lab Routine Myocardial infarction, unspecified MS type, unspecified artery (HCC) Atrial fibrillation, unspecified type (HCC) Anticoagulation management encounter 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 Every 6 Weeks for 26 Occurrences starting 08/24/2022 until 08/24/2023 INR FINGERSTICK, POINT OF CARE Point of Care Testing - Unsolicited Results STAT Myocardial infarction, unspecified MS type, unspecified artery (HCC) Atrial fibrillation, unspecified type (HCC) Anticoagulation management encounter intermediate 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 therapy Every 2 Weeks for 26 Occurrences starting 08/24/2022 until 08/24/2023, 1 completed Health Maintenance Due Date Last Done Comments [...] Comments INR FINGERSTICK, POINT OF CARE STAT 08/24/2022 11:00 AM EDT Myocardial infarction, unspecified MS type, unspecified artery (HCC) Atrial fibrillation, unspecified type (HCC) Anticoagulation management encounter 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 documented in this encounter Results * INR FINGERSTICK, POINT OF CARE (08/24/2022 11:00 AM EDT) Fingerstick INR 2.4 INR [facility] 56-02 Specimen Blood Narrative [facility] [place] [facility]-02 - 08/24/2022 11:01 AM EDT Therapeutic ranges for non-operative patients: Prophylaxsis/treatment of DVT: (Range:2.0-3.0) Treatment of pulmonary embolism:(Range:2.0-3.0) Prevention of systemic embolism from: -tissue heart valves -acute myocardial infarction -valvular heart disease -atrial fibrillation (Range: 2.0-3.0) Mechanical prosthetic valves: (Range: 2.5-3.5) Performing Organization Address City/State/[facility] Co de Phone Number [facility] [place] [phone] [place] [address] documented in this encounter Visit Diagnoses Diagnosis Myocardial infarction, unspecified MS type, unspecified artery (HCC)- Primary Atrial fibrillation, unspecified type (HCC) Anticoagulation management encounter Encounter for therapeutic drug monitoring intermediate 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 therapy documented in this encounter Advance Directives Documents on File Type Date Recorded Patient Cosmetologist Expl anation Advanced Directive Advanced Directive Advanced [...] Advanced Directive 01/26/2013 11:57 AM Care Teams Pv Design Engineer Relationship Specialty Start Date End Date Hank Oshea MD PCP - General Internal Medicine 08/13/14 documented as of this encounter
--- OUTSIDE RECORDS SUMMARY | 2023-09-08 00:39 | External Medical Summary | Summary of Care ---
Author Name Unknown Organization [place] [address] Care Team Providers Care Inspector And Sorter Name Role Phone Hank Oshea MD Primary Care Provider Reason for Visit * Reason Comments Outpatient Testing Encounter Details Date Type Department Care Team Description 10/28/2022 Laboratory Laboratory, [facility] 132 [facility] [place] [address] [facility] [address] Atrial flutter, unspecified type (HCC); Other forms of dyspnea Allergies No known active allergiesdocumented as of this encounter (statuses as of 10/28/2022) Medications Medication Sig Dispensed Refills Start Date End Date Status VITAMIN D 2000 UNITS PO TABS one tablet daily 0 Activ e nitroglycerin (NITROSTAT) 0.4 MG SUBLIndications:Cor onary artery disease involving pamunkey coronary artery of pamunkey heart without angina pectoris,Myocardial infarction involving other [...] (automatic cardioverter/defibr illator) present,Coronary artery disease of pamunkey artery of pamunkey heart with stable angina pectoris (HCC) Take 1 tablet on Wed, Wed, and Wed 45 Tablet 3 04/17/2022 Active Digoxin 125 MCG Oral Tablet (Lanoxin)Indication s:Coronary artery disease involving pamunkey coronary artery of pamunkey heart without angina pectoris,Chronic atrial fibrillation (HCC) [...] fibrillation 01/06/2013 CAD (coronary artery disease) 07/25/2012 AL (myocardial infarction) 07/25/2012 documented as of this [...] Care Team Description 11/16/2022 Anticoagulation Pharmacy Pharmacist1, [facility] [address] [place] [address] 12/14/2022 Cardiac Studies Cardiology [facility] 132 [place] [address] 01/07/2023 Office Visit Cardiology Denis Langston MD [address] [place] [address] 03/25/2023 Cardiac Studies Cardiology [facility] [address] [place] [address] Pending Results Name Type Priority Associated Diagnoses Date /Time TSH Lab Routine Atrial flutter, unspecified type (HCC) Other forms of dyspnea 10/28/2022 3:16 PM EST BASIC METABOLIC PANEL Lab Routine Atrial flutter, unspecified type (HCC) 10/28/2022 3:16 PM EST MAGNESIUM Lab Routine Atrial flutter, unspecified type (HCC) 10/28/2022 3:16 PM EST Health Maintenance Due Date Last Done [...] Procedure Name Priority Date/Time Associated Diagnosis Comments CBC Routine 10/28/2022 3:16 PM EST Atrial flutter, unspecified type (HCC) documented in this encounter Results * (ABNORMAL) CBC (10/28/2022 3:16 PM EST) [...] fL 10/28/2022 3:23 PM EST [facility] [place] [facility]10 MCH 34.1 27.0 - 34.0 pg 10/28/2022 3:23 PM EST [facility] [place] 57-10 MCHC 33.6 32.0 - 36.0 g/dL 10/28/2022 3:23 PM EST [facility] [place] [facility]10 RDW 13.6 11.5 - 15.5 % 10/28/2022 3:23 PM EST [facility] [place] [facility]-10 PLT 154 140 - 400 K/uL 10/28/2022 3:23 PM EST [facility] [place] [facility]-10 MPV 10.4 6.6 - 11.1 fL 10/28/2022 3:23 PM EST [facility] [place] [facility]10 Blood Venous blood specimen / Unknown Venipuncture / Unknown 10/28/2022 3:16 PM EST 10/28/2022 3:16 PM EST [place] Alyssa Rosanne ZHENG LAB BLOOD ORDERABLE S [facility] [place] [facility]10 132 [facility] [place] [address] documented in this encounter Visit Diagnoses Diagnosis Atrial flutter, unspecified type (HCC) Other forms of dyspnea documented in this encounter Care Teams Inspector And Sorter Relationship Specialty Start Date End Date Hank Oshea MD [address] [address] PCP - General Internal Medicine 08/13/14 documented as of this encounter
--- OUTSIDE RECORDS SUMMARY | 2023-09-08 00:39 | External Medical Summary | Summary of Care ---
Author Name Unknown Organization [place] [address] Care Team Providers Care It Systems Administrator Name Role Phone Hank Oshea MD Primary Care Provider [phone] Reason for Visit * Reason Onset Date Comments FYI 10/28/2022 Encounter Details Date Type Department Care Team Description 10/28/2022 Telephone Cardiology, [facility] [address] [place] [address] Wilmar Lay PA-C [address] [place] [address] FYI Allergies No known active allergiesdocumented as of this encounter (statuses as of 10/29/2022) Medications Medication Sig Dispensed Refills Start Date End Date Status VITAMIN D 2000 UNITS PO TABS one tablet daily 0 Activ e nitroglycerin (NITROSTAT) 0.4 MG SUBLIndications:Cor onary artery disease involving [place] coronary artery of [place] heart without angina pectoris,Myocardial infarction involving [...] (automatic cardioverter/defibr illator) present,Coronary artery disease of [place] artery of [place] heart with stable angina pectoris (HCC) Take 1 tablet on Wed, Wed, and Wed 45 Tablet 3 04/17/2022 Active Digoxin 125 MCG Oral Tablet (Lanoxin)Indication s:Coronary artery disease involving [place] coronary artery of [place] heart without angina pectoris,Chronic atrial fibrillation [...] Care Team Description 11/16/2022 Anticoagulation Pharmacy Pharmacist1, [facility] 200 [place] [address] 12/14/2022 Cardiac Studies Cardiology [facility]i [facility] 132 [facility] [place] [address] 01/07/2023 Office Visit Cardiology Denis Langston MD 132 [facility] [place] [address] 03/25/2023 Cardiac Studies Cardiology [facility] Pacer [facility] 132 [facility] [place] [address] Health Maintenance Due Date Last Done Comments [...] filedocumented as of this encounter Care Teams It Systems Administrator Relationship Specialty Start Date End Date Hank Oshea MD [address] [address] PCP - General Internal Medicine 08/13/14 documented as of this encounter
--- OUTSIDE RECORDS SUMMARY | 2023-09-08 00:39 | External Medical Summary | Summary of Care ---
Author Name Unknown Organization [place] [address] Care Team Providers Care Cable Splicer Name Role Phone Hank Oshea MD Primary Care Provider [phone] Reason for Visit * Reason Comments Patient Assistance Program Encounter Details Date Type Department Care Team Description 10/15/2022 Pharmacy Pharmacy, [place] [address] [place] [address] Coordinator, Pharmacy Reimbursement [address], [place] [id number] Myocardial infarction, unspecified NV type, unspecified artery (HCC)* Allergies No known active allergiesdocumented as of this encounter (statuses as of 10/16/2022) Medications Medication Sig Dispensed Refills Start Date End Date Status VITAMIN D 2000 UNITS PO TABS one tablet daily 0 Active nitroglycerin (NITROSTAT) 0.4 MG SUBLIndications:Coron richardson artery disease involving [place] coronary artery of [place] heart without angina pectoris,Myocardial infarction involving other [...] (automatic cardioverter/defibril lator) present,Coronary artery disease of [place] artery of [place] heart with stable angina pectoris (HCC) Take 1 tablet on Wed, Wed, and Wed 45 Tablet 3 04/17/2022 Active Digoxin 125 MCG Oral Tablet (Lanoxin)Indications: Coronary artery disease involving [place] coronary artery of mak[place] heart without angina pectoris,Chronic atrial fibrillation (HCC) TAKE ONE TABLET BY MOUTH ON WEDNESDAY, WEDNESDAY AND WEDNESDAY 28 Tablet 11 07/01/2022 Active Entresto 24-26 MG Oral Tablet (sacubitril-valsartan 24-26 mg per tab)Indications:Ische maryam cardiomyopathy,Heart failure, systolic, due to CAD (HCC) Take 1/2 tab each am and pm 90 Tablet 3 09/07/2022 Active documented as of this encounter (statuses as of 10/16/2022) Active Problems Problem Noted Date AICD (automatic cardioverter/defibrillat or) present 02/10/2013 Heart failure, systolic, due to CAD 06/2013 Ischemic cardiomyopathy 01/06/2013 Atrial fibrillation 01/06/2013 CAD (coronary artery disease) 07/25/2012 NV (myocardial infarction) 07/25/2012 documented as of this encounter (statuses as of 10/16/2022) Immunizations Name Administration Dates Next Due COVID-19 [...] as of this encounter Progress Notes * KEITH Palomares - 10/15/2022 4:33 PM EST Follow up needs to be made topatient Coverage:[facility] [address] [place] [address] Patient Phone Numbers RX:Entresto 11/25-Recvd pt raj message, pt approved with [employer] until 10/31/22 per approval office recvd and scanned. Added pt to sched for end of year for re-enrollment 10/15-spoke with pt and spouse, advsd they brought forms to Dr. Lay;s office a few weeks ago. Not showing scanned in chart. Called [employer], everything has been recvd and is approved. Pt to recvapproval in November per rep. Made pt aware. KEITH Palomares [facility] 10/15/2022, 4:37 PM documented in this encounter Plan of Treatment Upcoming Encounters Date Type Specialty Care Team Description 10/28/2022 Office Visit Cardiology Wilmar Lay PA-C [address] [place] [address] 11/16/2022 Anticoagulation Pharmacy Pharmacist1, [facility] [address] [facility] [place] [address] 12/14/2022 Cardiac Studies Cardiology [facility] [address] [place] [address] 01/07/2023 Office Visit Cardiology Denis Langston MD [address] [place] [address] 03/25/2023 Cardiac Studies Cardiology Gigi Pacer [facility] [address] [place] [address] Health Maintenance Due Date Last Done Comments [...] as of this encounter Visit Diagnoses Diagnosis Myocardial infarction, unspecified NV type, unspecified artery (HCC)- Primary documented in this encounter Care Teams Cable Splicer Relationship Specialty Start Date End Date Hank Oshea MD PCP - General Internal Medicine 08/13/14 documented as of this encounter
--- OUTSIDE RECORDS SUMMARY | 2023-09-08 00:39 | External Medical Summary | Summary of Care ---
Author Name Unknown Organization [place] [address] Care Team Providers Care Design Leader Name Role Phone Hank Oshea MD Primary Care Provider [phone] Reason for Visit * Reason Onset Date Comments Medication Refill 09/07/2022 Encounter Details Date Type Department Care Team Description 09/07/2022 Refill Cardiology, [facility] [address] [employer] [facility] [place] [address] Zulma Lay PA-C [address] [employer] [place] [address] Ischemic cardiomyopathy; Heart failure, systolic, due to CAD (HCC) Allergies No known active allergiesdocumented as of this encounter (statuses as of 09/07/2022) Medications Medication Sig Dispensed Refills Start Date End Date Status VITAMIN D 2000 UNITS PO TABS one tablet daily 0 Active nitroglycerin (NITROSTAT) 0.4 MG SUBLIndications:Co ronary artery disease involving [place] coronary artery of [place] heart without angina pectoris,Myocardia l infarction involving [...] (pLAVix)Indication s:Permanent atrial fibrillation (HCC) Take 1 Tablet by [...] XL)Indications:Atr ial fibrillation, unspecified type (HCC) Take 1 tablet by mouth twice daily 180 Tablet 3 04/01/2022 Active Rosuvastatin Calcium 5 MG Oral Tablet (Crestor)Indicatio ns:Heart failure, systolic, due to CAD (HCC),Ischemic cardiomyopathy,AIC D (automatic cardioverter/defib rillator) present,Coronary artery disease of [place] artery of [place] heart with stable angina pectoris (HCC) Take 1 tablet on Wed, Wed, and Wed 45 Tablet 3 04/17/2022 Active Digoxin 125 MCG Oral Tablet (Lanoxin)Indicatio ns:Coronary artery disease involving [place] coronary artery of [place] heart without angina pectoris,Chronic atrial fibrillation (HCC) TAKE ONE TABLET BY MOUTH ON WEDNESDAY, WEDNESDAY AND WEDNESDAY 28 Tablet 11 07/01/2022 Active Entresto 24-26 MG Oral Tablet (sacubitril-valsar frazier 24-26 mg per tab)Indications:Is chemic cardiomyopathy,Hea rt failure, systolic, due to CAD (HCC) Take 1/2 tab each am and pm 90 Tablet 3 09/07/2022 Active Entresto 24-26 MG Oral Tablet (sacubitril-valsar frazier 24-26 mg per tab)Indications:Is chemic cardiomyopathy,Hea rt failure, systolic, due to CAD (HCC) Take 1/2 tab each am and pm 90 Tablet 3 10/06/2021 09/07/2022 Discontinue d(Refill) documented as of this encounter (statuses as of 09/07/2022) Active Problems Problem Noted Date AICD (automatic cardioverter/defibrillat or) present 02/10/2013 Heart failure, systolic, due to CAD 06/2013 Ischemic cardiomyopathy 01/06/2013 Atrial fibrillation 01/06/2013 CAD (coronary artery disease) 07/25/2012 [place] (myocardial infarction) 07/25/2012 documented as of this encounter (statuses as of 09/07/2022) Immunizations Name Administration Dates Next Due COVID-19 [...] Telephone Encounter - Zulma Lay PA-C - 09/07/2022 3:04 PM ESTSigned Prescriptions: Disp Refills Entresto 24-26 MG Oral Tablet (sacubitril-*90 Tab*3 Sig: Take 1/2 tab each am and pm Authorizing Provider: ZULMA LAY * Telephone Encounter - Rebel Durant LPN - 09/07/2022 2:02 PM EST Did you pend patient's preferred pharmacy and medication before forwarding?yes Pharmacy: Pending Prescriptions: Disp Refills Entresto 24-26 MG Oral Tablet (sacubitril*90 Tab*3 Sig: Take 1/2 tab each am and pm Last Visit: 04/17/2022 (in office), Visit date not found (telemedicine) Next Visit: 10/28/2022 If no future appointments scheduled, and last appointment is greater than a year ago, please schedule patient for a follow-up appointment Last date the medication was ordered: 10/06/21 Is this request for a controlled substance?No Urine Drug Screen:No results found for this or any previous visit. Patient Phone Numbers Labs: Lab Results Component Value Date/Time CREAT 1.3 (H) 06/12/2022 11:41 AM CREAT 1.4 (H) 07/23/2020 11:28 AM POTASSIUM 4.9 06/12/2022 11:41 AM POTASSIUM 4.4 07/23/2020 11:28 AM TSH 2.08 06/12/2022 11:41 AM TSH 4.50 (H) 07/23/2020 11:28 AM [...] Care Team Description 10/05/2022 Anticoagulation Pharmacy Pharmacist1, [facility] [address] [facility] [place] [address] 10/15/2022 Pharmacy Security Systems Integrator, Pharmacy Reimbursement [address] [place] [address] 10/28/2022 Office Visit Cardiology Zulma Lay PA-C [address] [facility] [address] 12/14/2022 Cardiac Studies Cardiology [place], [facility] [address] [place] [address] 01/07/2023 Office Visit Cardiology Denis Langston MD [address] [place] [address] 03/25/2023 Cardiac Studies Cardiology Marcelino [facility] [address] [place] [address] Health Maintenance Due Date Last Done Comments [...] of this encounter Visit Diagnoses Diagnosis Ischemic cardiomyopathy Other specified forms of chronic ischemic heart disease Heart failure, systolic, due to CAD (HCC) Unspecified systolic heart failure documented in this encounter Care Teams Design Leader Relationship Specialty Start Date End Date Hank Oshea MD PCP - General Internal Medicine 08/13/14 documented as of this encounter
--- OUTSIDE RECORDS SUMMARY | 2023-09-08 00:39 | External Medical Summary ---
Author Name Unknown Address Unknown Organization [id number][place] [place] [address] [place] [address] Laboratory Report Ordering Provider Test Date Status ROXANA MAYA 10/28/2022 15:16:52 Final Observation Date Value Abnormality Reference (Units ) Status BUN 10/28/2022 15:16:52 27 Above high normal 6-20 (mg/dL) Final Creatinine 10/28/2022 15:16:52 1.3 Above high normal 0.6-1.2 (mg/dL) Final Glomerular filtration rate/1.73 sq M.predicted [Volume Rate/Area] in Serum, Plasma or Blood by Creatinine-based formula (CKD-EPI) 10/28/2022 15:16:52 52 Below low normal >=60 (mL/min) Final eGFR is calculated based on the CKD-EPI 2020 equation SODIUM 10/28/2022 15:16:52 142 135-146 (m mol/L) Final Potassium 10/28/2022 15:16:52 5.3 Above high normal 3. 5-5.1 (mmol/L) Final Cl 10/28/2022 15:16:52 105 98-107 (mm ol/L) Final CO2 10/28/2022 15:16:52 29 22-32 (mmo l/L) Final Anion gap 10/28/2022 15:16:52 8 7-15 (mmol /L) Final Glucose 10/28/2022 15:16:52 74 70-120 (mg /dL) Final Calcium 10/28/2022 15:16:52 9.6 8.4-10.2 ( mg/dL) Final Performing Location [facility] [place] [address] [place] [address]
--- OUTSIDE RECORDS SUMMARY | 2023-09-08 00:39 | External Medical Summary ---
Author Name Unknown Address Unknown Organization K09:[facility] [place] [address] Laboratory Report Ordering Provider Test Date Status JENNIFER LOPEZ V 08/24/2022 11:00:17 Final Therapeutic ranges for non-o perative patients:
Prophylaxsis/treatment of DVT: (Range:2.0-3.0)
Treatment of pulmonary embolism:(Range:2.0-3.0)
Prevention of systemic embolism from:
-tissue heart valves
-acute myocardial infarction
-valvular heart disease
-atrial fibrillation
(Range: 2.0-3.0)
Mechanical prosthetic valves: (Range: 2.5-3.5) Observation Date Value Abnormality Reference (Units ) Status INR in Capillary blood by Coagulation assay 08/24/2022 11:00:17 2.4 (INR) Final Performing Location [facility] [place] [address]
--- OUTSIDE RECORDS SUMMARY | 2023-09-08 00:39 | External Medical Summary ---
Author Name Unknown Address Unknown Organization K01[place] [place] [address] [place] [address] Laboratory Report Ordering Provider Test Date Status ROXANA MAYA 10/28/2022 15:16:52 Final Observation Date Value Abnormality Reference (Units ) Status TSH 10/28/2022 15:16:52 4.63 Above high normal 0. 27-4.20 (uIU/mL) Final Performing Location LAB[facility]ATORY [facility] - [address] [place] [address]
--- OUTSIDE RECORDS SUMMARY | 2023-09-08 00:40 | External Medical Summary | Summary of Care ---
Author Name Unknown Organization [place] [address] Care Team Providers Care Technology Education Teacher Name Role Phone Hank Oshea MD Primary Care Provider [phone] Encounter Details Date Type Department Care Team Description 06/12/2022 Orders Only Laboratory [facility] Deborah Stapleton [address] [facility] [address] Hank Oshea MD [address] [facility] [address] [place] [address] Hyperglycemia*; Iron deficiency anemia; Essential (primary) hypertension; Hypothyroidism Allergies No known active allergiesdocumented as of this encounter (statuses as of 06/12/2022) Medications Medication Sig Dispensed Refills Start Date End Date Status VITAMIN D 2000 UNITS PO TABS one tablet daily 0 Active nitroglycerin (NITROSTAT) 0.4 MG SUBLIndications:Coron richardson artery disease involving [place] coronary artery of [place] heart without angina pectoris,Myocardial infarction involving [...] mcg by mouth daily. 3 07/30/2019 Active Digoxin 125 MCG Oral Tablet (Lanoxin)Indications: Coronary artery disease involving [place] coronary artery of [place] heart without angina pectoris,Chronic atrial fibrillation (HCC) TAKE 1 TABLET BY MOUTH ON WEDNESDAY, WEDNESDAY AND WEDNESDAY. 28 Tab 11 05/12/2021 Active Clopidogrel Bisulfate 75 MG Oral Tablet [...] (automatic cardioverter/defibril lator) present,Coronary artery disease of [place] artery of [place] heart with stable angina pectoris (HCC) Take 1 tablet on Mon, Wed, and Fri 45 Tablet 3 04/17/2022 Active documented as of this encounter (statuses as of 06/12/2022) Active Problems Problem Noted Date AICD (automatic cardioverter/defibrillat or) present 02/10/2013 Heart failure, systolic, due to CAD 06/2013 Ischemic cardiomyopathy 01/06/2013 Atrial fibrillation 01/06/2013 CAD (coronary artery disease) 07/25/2012 [place] (myocardial infarction) 07/25/2012 documented as of this encounter (statuses as of 06/12/2022) Immunizations Name Administration Dates Next Due COVID-19 [...] Encounters Date Type Specialty Care Team Description 07/16/2022 Anticoagulation Pharmacy Pharmacist1, [facility] [address] [place] [address] 07/21/2022 Office Visit Cardiology Wilmar Lay PA-C [address] [facility] [address] 09/02/2022 Cardiac Studies Cardiology [facility] [address] 10/15/2022 Pharmacy [place]on, Pharmacy Reimbursement [address] [place], [place] [phone] 12/14/2022 Cardiac Studies Cardiology [facility] [address] [facility] [place] [address] 01/07/2023 Office Visit Cardiology Denis Langston MD [address] [facility] [place] [address] 03/25/2023 Cardiac Studies Cardiology [place], Pacer [address] [place] [address] Pending Results Name Type Priority Associated Diagnoses Date /Time HEMOGLOBIN A1C Lab Routine Hyperglycemia Iron deficiency anemia Essential (primary) hypertension Hypothyroidism 06/12/2022 11:41 AM EDT Scheduled Orders Name Type Priority Associated Diagnoses Orde r Schedule HEMOGLOBIN A1C Lab Routine Hyperglycemia Iron deficiency anemia Essential (primary) hypertension Hypothyroidism Expected: 06/12/2022, Expires: 06/12/2023 Health Maintenance Due Date Last Done Comments Pneumococcal Vaccine: 65+ Years (1 - PCV) 1940 Depression Screening, Annual for Pts 12 and Over 1946 Zoster Vaccines (1 of 2) 1984 Influenza Vaccine (FLU shot) (#1) 2022 07/29/2017, 08/08/2012 TSH FOR THYROID MEDICATION MONITORING YEARLY 10/06/2022 10/06/2021, 03/21/2021, 02/07/2021, Additional history exists DIG LEVEL FOR MEDICATION MONITORING YEARLY 01/27/2023 01/27/2022, 10/06/2021, 03/14/2020, Additional history exists DTaP,Tdap,and Td Vaccines (2 - Tdap) 07/29/2027 07/29/2017 COVID-19 Vaccine Completed 04/14/2022, 07/2021, 01/21/2021, Additional history exists GARDASIL-HPV IMMUNIZATION SERIES Aged [...] filedocumented as of this encounter Results * (ABNORMAL) CBC (06/12/2022 11:41 AM EDT) WBC 6.47 4.00 - 10.80 K/uL LAB[facility] [place] 56-02 RBC 4.23 4.50 - 5.25 M/uL [facility] [place] 56-02 HGB 13.9(L) 14.0 - 16.8 g/dL [facility] [place] 56-02 HCT 41.8 40.0 - 48.4 % LABORATORY [facility] 56- MCV 98.8 82.0 - 99.5 fL LABORATORY [facility] 56- MCH 32.9 27.0 - 34.0 pg LABORATORY [facility] 56- MCHC 33.3 32.0 - 36.0 g/dL [facility] [place] 56- RDW 14.2 11.5 - 15.5 % LABORATORY [facility] 56- PLT 152 140 - 400 K/uL LABORATORY [facility] 56- MPV 10.5 6.6 - 11.1 fL LABORATORY [facility] 56- Specimen Blood - Venous blood specime n (specimen) Performing Organization Address City/State/[facility] Co de Phone Number LAB[facility]ATORY [place] [address] [address] [place], [place] [phone] documented in this encounter Visit Diagnoses Diagnosis Hyperglycemia- Primary Other abnormal glucose Iron deficiency anemia Iron deficiency anemia, unspecified Essential (primary) hypertension Unspecified essential hypertension Hypothyroidism Unspecified hypothyroidism documented in this encounter Advance Directives Documents on File Type Date Recorded Patient Composite Technician Expl anation Advanced Directive Advanced Directive Advanced [...] Advanced Directive 01/26/2013 11:57 AM Care Teams Technology Education Teacher Relationship Specialty Start Date End Date Hank Oshea MD [address] [facility] [address] [facility] [address] [place] [address] PCP - General Internal Medicine 08/13/14 documented as of this encounter
--- OUTSIDE RECORDS SUMMARY | 2023-09-08 00:40 | External Medical Summary | Summary of Care ---
Author Name Unknown Organization [place] [address] Care Team Providers Care Bonding Agent Name Role Phone Hank Oshea MD Primary Care Provider [phone] Reason for Visit * Reason Comments Outpatient Testing Encounter Details Date Type Department Care Team Description 06/12/2022 Laboratory Laboratory [address] [place] [address] [place] [address] [facility] Lab [facility] [address] [place] [address] Hyperglycemia; Iron deficiency anemia; Essential (primary) hypertension; Hypothyroidism Allergies No known active allergiesdocumented as of this encounter (statuses as of 06/12/2022) Medications Medication Sig Dispensed Refills Start Date End Date Status VITAMIN D 2000 UNITS PO TABS one tablet daily 0 Active nitroglycerin (NITROSTAT) 0.4 MG SUBLIndications:Coron richardson artery disease involving [place] coronary artery of [place] heart without angina pectoris,Myocardial infarction involving other [...] Oral Tablet (Lanoxin)Indications: Coronary artery disease involving [place] coronary artery of [place] heart without angina pectoris,Chronic atrial fibrillation (HCC) [...] (automatic cardioverter/defibril lator) present,Coronary artery disease of [place] artery of [place] heart with stable angina pectoris (HCC) Take [...] Care Team Description 07/16/2022 Anticoagulation Pharmacy Pharmacist1, [facility] [address] [address] 07/21/2022 Office Visit Cardiology Wilmar Lay PA-C [facility] [address] 09/02/2022 Cardiac Studies Cardiology [facility] [address] 10/15/2022 Pharmacy Guillotine Operator, Pharmacy Reimbursement [address] [place], [place] [id number] 12/14/2022 Cardiac Studies Cardiology [facility] [address] [facility] [place] [address] 01/07/2023 Office Visit Cardiology Denis Langston MD [address] [facility] [place] [address] 03/25/2023 Cardiac Studies Cardiology [facility], Pac[facility] [address] [place] [address] Pending Results Name Type Priority Associated Diagnoses Date /Time HEMOGLOBIN A1C Lab Routine Hyperglycemia Iron deficiency anemia Essential (primary) hypertension Hypothyroidism 06/12/2022 11:41 AM EDT Health Maintenance Due Date Last [...] Priority Date/Time Associated Diagnosis Comments CBC Routine 06/12/2022 11:41 AM EDT Hyperglycemia Iron deficiency anemia Essential (primary) hypertension Hypothyroidism documented in this encounter Results * (ABNORMAL) CBC (06/12/2022 11:41 AM EDT) WBC 6.47 4.00 - 10.80 K/uL LAB[facility] [place] 56-02 RBC 4.23 4.50 - 5.25 M/uL [facility] [place] 56-02 HGB 13.9(L) 14.0 - 16.8 g/dL [facility] [place] 56-02 HCT 41.8 40.0 - 48.4 % [facility] 56- MCV 98.8 82.0 - 99.5 fL LABORATORY [facility]3] 56- MCH 32.9 27.0 - 34.0 pg LABORATORY [facility]3] 56- MCHC 33.3 32.0 - 36.0 g/dL LAB[facility] [place] 56- RDW 14.2 11.5 - 15.5 % LAB[facility]ORY [facility] 56- PLT 152 140 - 400 K/uL LABORATORY [facility]3] 56- MPV 10.5 6.6 - 11.1 fL LABORATORY [facility] 56- Specimen Blood - Venous blood specime n (specimen) LAB[facility]ATORY [place] [address] [address] [place] [address] documented in this encounter Visit Diagnoses Diagnosis Hyperglycemia Other abnormal glucose Iron deficiency anemia Iron deficiency anemia, unspecified Essential (primary) hypertension Unspecified essential hypertension Hypothyroidism Unspecified hypothyroidism documented in this encounter Advance Directives Documents on File Type Date Recorded Patient Supervisor Carbon Paper Coating Expl anation Advanced Directive Advanced Directive Advanced [...] Advanced Directive 01/26/2013 11:57 AM Care Teams Bonding Agent Relationship Specialty Start Date End Date Hank Oshea MD [address] [place] [address] PCP - General Internal Medicine 08/13/14 documented as of this encounter
--- OUTSIDE RECORDS SUMMARY | 2023-09-08 00:40 | External Medical Summary | Summary of Care ---
Author Name Unknown Organization [place] [address] Care Team Providers Care Culturist Name Role Phone Hank Oshea MD Primary Care Provider [phone] Reason for Visit * Reason Comments Dosage Adjustment In Person (Anticoag Cl inic) Encounter Details Date Type Department Care Team Description 06/12/2022 Anticoagulation Pharmacy, [facility] [address] [place] [address] Pharmacist2, [facility] [address] [place] [address] Myocardial infarction, unspecified [place] type, unspecified artery (HCC)*; Atrial fibrillation, unspecified type (HCC); Anticoagulation management encounter; 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 Allergies No known active allergiesdocumented as of this encounter (statuses as of 06/12/2022) Medications Medication Sig Dispensed Refills Start Date End Date Status VITAMIN D 2000 UNITS PO TABS one tablet daily 0 Active nitroglycerin (NITROSTAT) 0.4 MG SUBLIndications:Coron richards[place] artery disease involving [place] coronary artery of [place] heart without angina pectoris,Myocardial infarction involving other [...] Oral Tablet (Lanoxin)Indications: Coronary artery disease involving [place] coronary artery of [place] heart without angina pectoris,Chronic atrial fibrillation (HCC) [...] (automatic cardioverter/defibril lator) present,Coronary artery disease of [place] artery of [place] heart with stable angina pectoris (HCC) Take [...] as of this encounter Progress Notes * Faisal Ramos RPh - 06/12/2022 11:19 AM EDT Images from the original note were not included. Medication Therapy Disease Management - Anticoagulation Patient: Lucian Larson Jr. : 1935 Current Warfarin Dose As of 06/12/2022 Warfarin maintenance plan: 2.5 mg (5 mg x 0.5) every Mon, Wed, Fri; 5 mg (5 mg x 1) all other days Patient-Reported Symptoms: Patient Findings Negatives: Signs/symptoms of thrombosis, Signs/symptoms of bleeding, Change in health, Change in alcohol use, Change in activity, Upcoming invasive procedure, Missed doses, Extra doses, Change in medications, Change in diet/appetite, Bruising INR Result As of 06/12/2022 INR goal: 2.0-3.0 INR used for dosin.4 (06/12/2022) Warfarin Plan As of 06/12/2022 Full warfarin instructions: 06/12: Hold; Otherwise 2.5 mg every Mon, Wed, Fri; 5 mg all other days Next INR check: 07/16/2022 Additional Dosing Information: Repeat PT/INR in 5 week(s) Weekly dose: not changed [facility] Clinical Pharmacist 06/12/2022, 11:19 AM Electronically signed by [facility] at 06/12/2022 11:28 AM EDT documented in this encounter Plan of Treatment Upcoming Encounters Date Type Specialty Care Team Description 07/16/2022 Anticoagulation Pharmacy Pharmacist1, [facility] [address] [facility] [place] [address] 07/21/2022 Office Visit Cardiology Wilmar Lay PA-C [address] [place] [address] 09/02/2022 Cardiac Studies [facility] [address] [facility] [address] 10/15/2022 Pharmacy Labor Conciliator, Pharmacy Reimbursement [address] [place] [address] 12/14/2022 Cardiac Studies Cardiology [facility] [address] [place] [address] 01/07/2023 Office Visit Cardiology [facility] [address] [facility] [address] 03/25/2023 Cardiac Studies Cardiology [facility] [address] [facility] [address] Health Maintenance Due Date Last Done Comments [...] Comments INR FINGERSTICK, POINT OF CARE STAT 06/12/2022 11:23 AM EDT Atrial fibrillation, unspecified type (HCC) Myocardial infarction, unspecified [place] type, unspecified artery (HCC) 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 documented in this encounter Results * INR FINGERSTICK, POINT OF CARE (06/12/2022 11:23 AM EDT) Fingerstick INR 3.4 INR [facility] 56-02 Specimen Blood Narrative [facility] 56-02 - 06/12/2022 11:27 AM EDT Therapeutic ranges for non-operative patients: Prophylaxsis/treatment of DVT: (Range:2.0-3.0) Treatment of pulmonary embolism:(Range:2.0-3.0) Prevention of systemic embolism from: -tissue heart valves -acute myocardial infarction -valvular heart disease -atrial fibrillation (Range: 2.0-3.0) Mechanical prosthetic valves: (Range: 2.5-3.5) [facility] 56-[address] [place], [place] [id number] documented in this encounter Visit Diagnoses Diagnosis Myocardial infarction, unspecified [place] type, unspecified artery (HCC)- Primary Atrial fibrillation, unspecified type (HCC) Anticoagulation management encounter Encounter for therapeutic drug monitoring 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 documented in this encounter Advance Directives Documents on File Type Date Recorded Patient Cable 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
--- OUTSIDE RECORDS SUMMARY | 2023-09-08 00:40 | External Medical Summary | Summary of Care ---
Author Name Unknown Organization [facility] [address] Care Team Providers Care Energy Derivatives Trader Name Role Phone Hank Oshea MD Primary Care Provider [phone] Reason for Visit * Reason Comments eRx-Medication Refill Encounter Details Date Type Department Care Team Description 06/28/2022 Refill Cardiology, [facility] [address] [place] [address] Denis Langston MD [address] [facility] [place] [address] Coronary artery disease involving [place] coronary artery of [place] heart without angina pectoris; Chronic atrial fibrillation (HCC) Allergies No known active allergiesdocumented as of this encounter (statuses as of 07/01/2022) Medications Medication Sig Dispensed Refills Start Date End Date Status VITAMIN D 2000 UNITS PO TABS one tablet daily 0 Active nitroglycerin (NITROSTAT) 0.4 MG SUBLIndications:Co ronary artery disease involving [place] coronary artery of [place] heart without angina pectoris,Myocardia l infarction involving [...] 10/06/2021 Active Entresto 24-26 MG Oral Tablet (sacubitril-valsar [...] (automatic cardioverter/defib rillator) present,Coronary artery disease of [place] artery of [place] heart with stable angina pectoris (HCC) Take 1 tablet on Wed, Wed, and Wed 45 Tablet 3 04/17/2022 Active Digoxin 125 MCG Oral Tablet (Lanoxin)Indicatio ns:Coronary artery disease involving [place] coronary artery of [place] heart without angina pectoris,Chronic atrial fibrillation (HCC) TAKE ONE TABLET BY MOUTH ON WEDNESDAY, WEDNESDAY AND WEDNESDAY 28 Tablet 11 07/01/2022 Active Digoxin 125 MCG Oral Tablet (Lanoxin)Indicatio ns:Coronary artery disease involving [place] coronary artery of [place] heart without angina pectoris,Chronic atrial fibrillation (HCC) TAKE 1 TABLET BY MOUTH ON WEDNESDAY, WEDNESDAY AND WEDNESDAY. 28 Tab 11 05/12/2021 2 Discontinued documented as of this encounter (statuses as of 07/01/2022) Active Problems Problem Noted Date AICD (automatic cardioverter/defibrillat or) present 02/10/2013 Heart failure, systolic, due to CAD 06/2013 Ischemic cardiomyopathy 01/06/2013 Atrial fibrillation 01/06/2013 CAD (coronary artery disease) 07/25/2012 SC (myocardial infarction) 07/25/2012 documented as of this encounter (statuses as of 07/01/2022) Immunizations Name Administration Dates Next Due COVID-19 [...] Telephone Encounter - Zulma Lay PA-C - 07/01/2022 10:34 AM EDT Signed Prescriptions: Disp Refills Digoxin 125 MCG Oral Tablet (Lanoxin) 28 Tab*11 Sig: TAKE ONE TABLET BY MOUTH ON WEDNESDAY, WEDNESDAY AND WEDNESDAY Authorizing Provider: ZULMA LAY * Telephone Encounter - Rafiq Miramontes RN - 07/01/2022 9:13 AM EDT Pending Prescriptions: Disp Refills Digoxin 125 MCG Oral Tablet (Lanoxin) [Ph*28 Tab*11 Sig: TAKE ONE TABLET BY MOUTH ON WEDNESDAY, WEDNESDAY AND WEDNESDAY * Telephone Encounter - Rafiq Miramontes RN - 07/01/2022 9:13 AM EDT Pending Prescriptions: Disp Refills Digoxin 125 MCG Oral Tablet (Lanoxin) [Ph*28 Tab*11 Sig: TAKE ONE TABLET BY MOUTH ON WEDNESDAY, WEDNESDAY AND WEDNESDAY Last Visit: 04/17/2022 (in office), Visit date not found (telemedicine) Next Visit: 07/21/2022 Last medication order date: 05/12/2021 Have you choosen a preferred pharm?? yes Patient Active Problem List Diagnosis Code CAD (coronary artery disease) I25.10 SC (myocardial infarction) ([facility]) I21.9 Heart failure, systolic, due to CAD ([facility]) I50.20, I25.10 Ischemic cardiomyopathy I25.5 Atrial fibrillation ([facility]) I48.91 AICD (automatic cardioverter/defibrillator) present Z95.810 Labs: Lab Results Component Value Date/Time CREATININE - [facility] 1.3 (H) 06/12/2022 11:41 AM CREATININE - [facility] 1.4 (H) 07/23/2020 11:28 AM Lab Results Component Value Date/Time POTASSIUM - [facility] 4.9 06/12/2022 11:41 AM POTASSIUM - [facility] 4.4 07/23/2020 11:28 AM Lab Results Component Value Date/Time TSH - [facility] 2.08 06/12/2022 11:41 AM TSH - [facility] 4.50 (H) 07/23/2020 11:28 AM Lab Results Component Value Date/Time LDL CHOLESTEROL (CALCULATED) - [facility] 67 02/07/2021 11:35 AM LDL CHOLESTEROL (CALCULATED) - [facility] 68 01/11/2018 11:41 AM LDL CHOLESTEROL (CALCULATED) - [facility] 60 06/30/2016 10:59 AM LDL CHOLESTEROL (DIRECT MEASURE) - [facility] 58 06/12/2022 11:41 AM LDL CHOLESTEROL (DIRECT MEASURE) - [facility] 72 05/24/2019 01:32 PM Lab Results Component Value Date/Time ALT - [facility] 13 06/12/2022 11:41 AM ALT - [facility] 20 07/23/2020 11:28 AM Hemoglobin AIC Results: Lab Results Component Value Date/Time HEMOGLOBIN A1C - [facility] 5.7 (H) 06/12/2022 11:41 AM HEMOGLOBIN A1C - [facility] 5.4 06/30/2016 10:59 AM documented in this encounter Plan of Treatment Upcoming Encounters Date Type Specialty Care Team Description 07/16/2022 Anticoagulation Pharmacy Pharmacist1, [address] [address] 07/21/2022 Office Visit Cardiology Zulma Lay PANan [address] [facility] [place] [address] 09/02/2022 Cardiac Studies Cardiology [facility] [address] [facility] [place] [address] 10/15/2022 Pharmacy Heel Breaster, Pharmacy Reimbursement [address] [place], [place] [id number] 12/14/2022 Cardiac Studies Cardiology [facility] [address] [facility] [place] [address] 01/07/2023 Office Visit Cardiology Denis Langston MD [address] [facility] [place] [address] 03/25/2023 Cardiac Studies Cardiology [facility] [address] [facility] [place] [address] Health Maintenance Due Date Last Done Comments [...] Visit Diagnoses Diagnosis Coronary artery disease involving [place] coronary artery of [place] heart without angina pectoris Chronic atrial fibrillation (HCC) Atrial fibrillation documented in this encounter Advance Directives Documents on File Type Date Recorded Patient Birdcage Assembler Expl anation Advanced Directive Advanced Directive Advanced [...] Advanced Directive 01/26/2013 11:57 AM Care Teams Energy Derivatives Trader Relationship Specialty Start Date End Date Hank Oshea MD PCP - General Internal Medicine 08/13/14 documented as of this encounter
--- OUTSIDE RECORDS SUMMARY | 2023-09-08 00:40 | External Medical Summary | Summary of Care ---
Author Name Unknown Organization [place] [address] Care Team Providers Care Spot Welder Body Assembly Name Role Phone Hank Oshea MD Primary Care Provider [phone] Reason for Visit * Reason Comments Follow Up Encounter Details Date Type Department Care Team Description 04/17/2022 Office Visit Cardiology, [facility] [address] [place] [address] Wilmar Lay PA-Nettie [address] [place] [address] Coronary artery disease of [place] artery of [place] heart with stable angina pectoris (HCC)*; Heart failure, systolic, due to CAD (HCC); Ischemic cardiomyopathy; AICD (automatic cardioverter/defibrill ator) present; Chronic atrial fibrillation (HCC); Acquired hypothyroidism; Dyslipidemia, goal LDL below 70; Hypomagnesemia Allergies No known active allergiesdocumented as of this encounter (statuses as of 06/15/2022) Medications Medication Sig Dispensed Refills Start Date End Date Status VITAMIN D 2000 UNITS PO TABS one tablet daily 0 Active nitroglycerin (NITROSTAT) 0.4 MG SUBLIndications:Co ronary artery disease involving [place] coronary artery of [place] heart without angina pectoris,Myocardia l infarction involving [...] 07/30/2019 Active Digoxin 125 MCG Oral Tablet (Lanoxin)Indicatio ns:Coronary artery disease involving [place] coronary artery of [place] heart without angina pectoris,Chronic atrial fibrillation (HCC) [...] Active Rosuvastatin Calcium 5 MG Oral Tablet (Crestor)Tseringtio ns:Heart failure, systolic, due to CAD (HCC),Ischemic cardiomyopathy,AIC D (automatic cardioverter/defib rillator) present,Coronary artery disease of [place] artery of [place] heart with stable angina pectoris (HCC) Take 1 tablet on Mon, Wed, and Fri 45 Tablet 3 04/17/2022 Active Rosuvastatin Calcium 5 MG Oral Tablet (Crestor)Tseringtio ns:Heart failure, systolic, due to CAD (HCC),Ischemic cardiomyopathy,AIC D (automatic cardioverter/defib rillator) present,CAD (coronary artery disease) TAKE 1 TABLET BY MOUTH EVERY OTHER DAY 45 Tab 4 03/24/2021 04/17/2022 Discontinue d(Refill) documented as of this encounter (statuses as of 06/15/2022) Active Problems Problem Noted Date AICD (automatic cardioverter/defibrillat or) present 02/10/2013 Heart failure, systolic, due to CAD 06/2013 Ischemic cardiomyopathy 01/06/2013 Atrial fibrillation 01/06/2013 CAD (coronary artery disease) 07/25/2012 ME (myocardial infarction) 07/25/2012 documented as of this encounter (statuses as of 06/15/2022) Immunizations Name Administration Dates Next Due COVID-19 mRNA, LNP-s, No Pre serve, 2-Dose Series (Moderna) 04/14/2022,09/09/2021,01/21/2021, 021 DTaP - Dipth/Tet/Acell Pertussis 07/29/2017 Seasonal Influenza, Split, I IV3, With Preserve, Inj 07/29/2017,08/08/2012 documented as of this encounter Social History Tobacco Use Types Packs/Day Years Used Date Former Smoker Cigarettes, Pipe 1 45 Quit: 03/27/1995 Smokeless Tobacco: Never Used Tobacco Cessation:Counseling Given: Yes Alcohol Use Standard Drinks/Week Comments Yes 0 [...] Sign Reading Time Taken Comments Blood Pressure 100/58 04/17/2022 1:27 PM EDT Pulse 74 04/17/2022 1:27 PM EDT Temperature - - Respiratory Rate 18 04/17/2022 1:27 PM EDT Oxygen Saturation - - Inhaled Oxygen Concentration - - Weight 77.6 kg (171 lb) 04/17/2022 1:27 PM EDT Height - - Body Mass Index 24.54 01/13/2022 12:34 PM EDT documented in this encounter Progress Notes * Wilmar Lay PA-C - 04/17/2022 1:30 PM EDT History of Present Illness: Lucian Larson Jr. Is a very pleasant 86-year-old male here today for general cardiology follow-up Status post January 28, 2022 attempted upgrade to a biventricular ICD, unsuccessful, status post single-chamber ICD generator exchange by Dr. Davidson at [facility] Notes plans to go to [facility] today for the flounder. notes that he has cut furosemide downto 40 mg/day due to urinary issues. Weight is actually down 9 lb from last evaluation in this office by the undersigned, without worsening of the chronic lower extremity peripheral edema. He continues to have a mild intermittent cough. Dyspnea is stable. No significant lightheadedness or dizziness with positional changes. No near syncope or syncope. No fevers or chills. No exertional chest pain. No pleuritic chest pain. No palpitations. No device discharges. No orthopnea. No PND. No melena or hematochezia. Patient Active Problem List Diagnosis Code CAD (coronary artery disease) I25.10 ME (myocardial infarction) ([facility]) I21.9 Heart failure, systolic, due to CAD ([facility]) I50.20, I25.10 Ischemic cardiomyopathy I25.5 Atrial fibrillation ([facility]) I48.91 AICD (automatic cardioverter/defibrillator) present Z95.810 [...] 1 Cap by mouth daily. Cetirizine HCl (ZYRTEC ALLERGY) 10 MG Capsule Take 10 mg by mouth daily. levothyroxine (LEVOXYL) 50 MCG Tablet Take 75 mcg by mouth daily. 3 Digoxin 125 MCG Oral Tablet (Lanoxin) TAKE 1 TABLET BY MOUTH ON WEDNESDAY, WEDNESDAY AND WEDNESDAY.28 Tab 11 Clopidogrel Bisulfate 75 MG Oral Tablet (pLAVix) Take 1 Tablet by mouth daily. 90 Tablet 3 Entresto 24-26 MG Oral Tablet (sacubitril-valsartan 24-26 mg per tab) Take 1/2 tab each am and pm 90 Tablet 3 Furosemide 20 MG Oral Tablet (Lasix) Take by mouth 40 mg daily . 270 Tablet 3 Warfarin Sodium 5 MG Oral Tablet (Coumadin) TAKE 1/2 TAB MON, WED, WED (2.5mg) AND ONE TAB (5MG) ALL OTHER DAYS 70 Tablet 3 Metoprolol Succinate ER 50 MG Oral Tablet Extended Release 24 Hour (toPROL XL) Take 1 tablet bymouth twice daily 180 Tablet 3 Rosuvastatin Calcium 5 MG Oral Tablet (Crestor) Take 1 tablet on Wed, Wed, and Wed 45 Tablet 3 No current facility-administered medications for this visit. OBJECTIVE/PHYSICAL EXAMINATION: BP 100/58 (BP Site: Left Arm, BP Position: Sitting, BP Cuff Size: Large) | Pulse 74 | Resp 18 | Wt 77.6 kg (171 lb) | BMI 24.54 kg/m | BSA 1.96 m BP on my examination was 110/60 General: A&Ox3. NAD. HENT: Normocephalic. Atraumatic. Eyes: PER. Conjunctiva pink, sclera clear. Neck: No carotid bruits. + JVD. Heart: Distant heart sounds. Irregularly irregular 76 bpm. No murmur appreciated. No rub. No gallop. PMI is nondisplaced. Lungs: Bibasilar rales. Decreased at the left base. Abdomen: +BS. Soft. Nontender. No masses or organomegaly. Extremities: 1+ edema. No clubbing. No cyanosis. There is what appears to be a healing blister/wound over the medial most aspect of the distal left 1st metatarsal, without evidence drainage, infection/cellulitis Limited neurological examination is without focal deficits. [...] pressure is 35-40mm Hg. Device interrogation on February 05, 2022 demonstrated appropriate function. This is a Medtronic single-chamber ICD with backup pacemaker set VVIR, 50 bpm. Estimated remaining longevity: 11.1 years. RV paced 87.5%. ASSESSMENT: 1. Systolic congestive heart failure. Volume status: Asymptomatic mild hypervolemia 2. 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 3. History of acute decompensation in the setting of elevated heart rate, receiving stenting to therecannulated left anterior descending and attempted stent into the proximal right coronary artery in May 2014. 4. Severe ischemic cardiomyopathy, with LVEF 20 to 24%. 5. Status post January 2013 single-chamber ICD implantation, generator exchange on January 28, 2022 6. Chronic atrial fibrillation. 7. Chronic coumadin anticoagulation 8. Frequent ventricular ectopy 9. Atherosclerotic coronary disease 10. Dyslipidemia. LDL 67 mg/dL on 02/07/2021 Options discussed with patient and . Plan as outlined below. RECOMMENDATIONS/PLAN: Options of management discussed with patient and . Via shared decision making we have decided to continue current therapies as prescribed. Laboratory work ordered with orders printed and provided, to be obtained when evaluated by PCP in May. Device interrogation due next on May 20, 2022. General measures discussed regarding the healing wound on the left foot. Routine cardiology follow-up in 3 months time or as needed. ER with emergencies. Wilmar Lay PA-C Department of Cardiology documented in this encounter Nursing Notes * Marquis Pratt LPN - 04/17/2022 1:28 PM EDT Examination Room: 2 Name: Lucian Larson JrDylan Date of : (1935) Reason for Visit: f/u Interim Hospitalization(s): denies Problems/Concerns: denies at appt this time Chest Pain/SOB: denies My [facility] is a way you can [...] comprehension of instructions. documented in this encounter Miscellaneous Notes * Result QuickNote - Wilmar Lay PA-C - 06/15/2022 9:37 AM EDT OK/stable documented in this encounter Plan of Treatment Upcoming Encounters Date Type Specialty Care Team Description 07/16/2022 Anticoagulation Pharmacy Pharmacist1, [facility] [address] [facility] [place] [address] 07/21/2022 Office Visit Cardiology Wilmar Lay PA-C 132 [facility] [place] [address] 09/02/2022 Cardiac Studies Cardiology [facility] 132 [facility] [place] [address] 10/15/2022 Pharmacy Bread Wrapping Machine Feeder, Pharmacy Reimbursement [address], [place] [id number] 12/14/2022 Cardiac Studies Cardiology [facility] 132 [facility] [place] [address] 01/07/2023 Office Visit Cardiology Denis Langston MD 132 [facility] [place] [address] 03/25/2023 Cardiac Studies Cardiology [facility] 132 [facility] [place] [id number] Health Maintenance Due Date Last Done Comments [...] Procedure Name Priority Date/Time Associated Diagnosis Comments COMPREHENSIVE METABOLIC PANEL Routine 06/12/2022 11:41 AM EDT Chronic atrial fibrillation (HCC) Dyslipidemia, goal LDL below 70 TSH Routine 06/12/2022 11:41 AM EDT Acquired hypothyroidism MAGNESIUM Routine 06/12/2022 11:41 AM EDT Hypomagnesemia LDL CHOLESTEROL (DIRECT MEASURE) Routine 06/12/2022 11:41 AM EDT Dyslipidemia, goal LDL below 70 DIGOXIN LEVEL Routine 06/12/2022 11:41 AM EDT Heart failure, systolic, due to CAD (HCC) Chronic atrial fibrillation (HCC) documented in this encounter Results * TSH (06/12/2022 11:41 AM EDT) TSH 2.08 0.27 - 4.20 uIU/mL [facility] Specimen Blood - Venous blood specime n (specimen) Performing Organization Address City/[facility]/ZIP Co de Phone Number [facility] [address] [place] [address] * DIGOXIN LEVEL (06/12/2022 11:41 AM EDT) Digoxin Level 0.9 0.5 - 2.0 ng/mL [facility] Specimen Blood - Venous blood specime n (specimen) Performing Organization Address City/[facility]/ZIP Co de Phone Number [facility] [address] [place] [address] * MAGNESIUM (06/12/2022 11:41 AM EDT) Magnesium 2.3 1.5 - 2.6 mg/dL [facility]ORY [facility] 56-02 Specimen Blood - Venous blood specime n (specimen) Performing Organization Address [facility]/ZIP Co de Phone Number [facility] [address]- [address] [place] [address] * (ABNORMAL) COMPREHENSIVE METABOLIC PANEL (06/12/2022 11:41 AM EDT) Pathologist [facility] BUN 26(H) 6 - 20 mg/dL LABORATORY STAT E [facility] - Creatinine 1.3(H) 0.6 - 1.2 mg/dL [place] [address] Estimated Glomerular Filtration Rate 53(L)Comment:eGFR is calculated based on the CKD-EPI 2020 equation >=60 mL/min [facility] [place] 56- Sodium 140 135 - 146 mmol/L [facility] 56- Potassium 4.9 3.5 - 5.1 mmol/L [facility] 56- Chloride 101 98 - 107 mmol/L [facility] [place] 56- CO2 26 22 - 32 mmol/L [facility] 56- Anion Gap 13 7 - 15 mmol/L LAB[facility]ATORY [facility] TE [facility] 56- Glucose 82 70 - 120 mg/dL [facility] 56- Albumin 4.3 3.8 - 5.0 g/dL [facility] [place] 56-02 AST 20 10 - 50 U/L LAB[facility]ATORY STAT E [facility] 56- Alkaline Phosphatase 108 35 - 130 U/L LAB[facility]ATORY [place] [address] Bilirubin, Total 0.9 <=1.2 mg/dL [facility] [place] [address] Calcium 9.7 8.4 - 10.2 mg/dL [facility] [place] [address] Protein 7.1 6.0 - 8.3 g/dL [facility] [place] [address] ALT 13 10 - 50 U/L LAB[facility]ORY [facility] 56- Specimen Blood - Venous blood specime n (specimen) Performing Organization Address City/[facility] Co de Phone Number LAB[facility]ATORY [place] [address] [place] [address] * LDL CHOLESTEROL (DIRECT MEASURE) (06/12/2022 11:41 AM EDT) LDL Cholesterol (Direct Measure) 58 Comment: LDL Cholesterol Reference Ranges (mg/dL): <70 Target level for high risk ASCVD patient <100 Optimal for general population 100-129 Near optimal for general population 130-159 Borderline high 160-189 High >=190 Very high <=129 mg/dL [facility] Specimen Blood - Venous blood specime n (specimen) Performing Organization Address City/[facility] Co de Phone Number [facility] [address] [place] [address] documented in this encounter Visit Diagnoses Diagnosis Coronary artery disease of [place] artery of [place] heart with stable angina pectoris (HCC)- Primary Heart failure, systolic, due to CAD (HCC) Unspecified systolic heart failure Ischemic cardiomyopathy Other specified forms of chronic ischemic heart disease AICD (automatic cardioverter/defibrillator) present Automatic implantable cardiac defibrillator in situ Chronic atrial fibrillation (HCC) Atrial fibrillation Acquired hypothyroidism Unspecified hypothyroidism Dyslipidemia, goal LDL below 70 Other and unspecified hyperlipidemia Hypomagnesemia Disorders of magnesium metabolism documented in this encounter Advance Directives Documents on File Type Date Recorded Patient Hypercil Core Transformer Assembler Expl anation Advanced Directive Advanced Directive [...] Advanced Directive 01/26/2013 11:57 AM Care Teams Spot Welder Body Assembly Relationship Specialty Start Date End Date Hank Oshea MD [address] [address] PCP - General Internal Medicine 08/13/14 documented as of this encounter"
--- OUTSIDE RECORDS SUMMARY | 2023-09-08 00:40 | External Medical Summary ---
Author Name Unknown Address Unknown Organization K01:LABORATORY C - [address] [place] [address] Laboratory Report Ordering Provider Test Date Status ROXANA MAYA 06/12/2022 11:41:15 Final Observation Date Value Abnormality Reference (Units ) Status LDL, (direct) 06/12/2022 11:41:15 58 <=129 (mg/dL) Final LDL Cholesterol Reference Ra nges (mg/dL):
<70 Target level for high risk ASCVD patient
<100 Optimal for general population
100-129 Near optimal for general population
130-159 Borderline high
160-189 High
>=190 Very high Performing Location [facility] - [address] [place] [address]
--- OUTSIDE RECORDS SUMMARY | 2023-09-08 00:40 | External Medical Summary ---
Author Name Unknown Address Unknown Organization [id number]:LAB[facility]ATORY [facility] - [address] [place] [address] Laboratory Report Ordering Provider Test Date Status ROXANA MAYA 06/12/2022 11:41:15 Final Observation Date Value Abnormality Reference (Units ) Status TSH 06/12/2022 11:41:15 2.08 0.27-4.20 (uIU/mL) Final Performing Location [facility] - [address] [place] [address]
--- OUTSIDE RECORDS SUMMARY | 2023-09-08 00:40 | External Medical Summary ---
Author Name Unknown Address Unknown Organization K09:[facility] [place] [address] Laboratory Report Ordering Provider Test Date Status DOV JORGE 06/12/2022 11:41:15 Final Observation Date Value Abnormality Reference (Units ) Status WBC, Total 06/12/2022 11:41:15 6.47 4.00-10.8 0 (K/uL) Final RBC 06/12/2022 11:41:15 4.23 4.50-5.25 (M/uL) Final Hemoglobin 06/12/2022 11:41:15 13.9 Below low normal 14 .0-16.8 (g/dL) Final HCT 06/12/2022 11:41:15 41.8 40.0-48.4 (%) Final MCV 06/12/2022 11:41:15 98.8 82.0-99.5 (fL) Final MCH 06/12/2022 11:41:15 32.9 27.0-34.0 (pg) Final MCHC 06/12/2022 11:41:15 33.3 32.0-36.0 (g/dL) Final RDW 06/12/2022 11:41:15 14.2 11.5-15.5 (%) Final Platelets 06/12/2022 11:41:15 152 140-400 (K /uL) Final MPV 06/12/2022 11:41:15 10.5 6.6-11.1 ( fL) Final Performing Location [facility] [place] [address]
--- OUTSIDE RECORDS SUMMARY | 2023-09-08 00:40 | External Medical Summary ---
Author Name Unknown Address Unknown Organization K01:LABORATORY [facility] - [address] [place] [address] Laboratory Report Ordering Provider Test Date Status DOV JORGE 06/12/2022 11:41:16 Final Observation Date Value Abnormality Reference (Units ) Status HbA1C 06/12/2022 11:41:16 5.7 Above high normal 4. 0-5.6 (%) Final The use of HbA1c to monitor glycemic status is based on normal hemoglobin and HbA composition. This test should not be used in patients with abnormal hemoglobin that affects the half life of the red blood cell or the in vivo glycation rates. Glucose, estimated average 06/12/2022 11:41:16 117 <126 (mg/dL) Final Performing Location [facility]ORY [facility] - [address] [facility] [address]
--- OUTSIDE RECORDS SUMMARY | 2023-09-08 00:40 | External Medical Summary | Summary of Care ---
Author Name Unknown Organization [place] [address] Care Team Providers Care Mechanical Manager Name Role Phone Hank Oshea MD Primary Care Provider [phone] Reason for Visit * Reason Comments Outpatient Testing Encounter Details Date Type Department Care Team Description 06/12/2022 Laboratory [address] [place] [address] [place] [address] [facility] [address] [place] [address] Hyperglycemia; Iron deficiency anemia; Essential (primary) hypertension; Hypothyroidism Allergies No known active allergiesdocumented as of this encounter (statuses as of 06/12/2022) Medications Medication Sig Dispensed Refills Start Date End Date Status VITAMIN D 2000 UNITS PO TABS one tablet daily 0 Active nitroglycerin (NITROSTAT) 0.4 MG SUBLIndications:Coron richard[place] artery disease involving [place] coronary artery of [place] heart without angina pectoris,Myocardial infarction involving other [...] Oral Tablet (Lanoxin)Indications: Coronary artery disease involving [place] coronary artery of [place] heart without angina pectoris,Chronic atrial fibrillation (HCC) [...] (automatic cardioverter/defibril lator) present,Coronary artery disease of [place] artery of [place] heart with stable angina pectoris (HCC) Take 1 tablet on Mon, Wed, and Fri 45 Tablet 3 04/17/2022 Active documented as of this encounter (statuses as of 06/12/2022) Active Problems Problem Noted Date AICD (automatic cardioverter/defibrillat or) present 02/10/2013 Heart failure, systolic, due to CAD 06/2013 Ischemic cardiomyopathy 01/06/2013 Atrial fibrillation 01/06/2013 CAD (coronary artery disease) 07/25/2012 IL (myocardial infarction) 07/25/2012 documented as of this [...] Care Team Description 07/16/2022 Anticoagulation Pharmacy Pharmacist1, [facility] [address] [address] 07/21/2022 Office Visit Cardiology Wilmar Lay PA-C [facility] [address] 09/02/2022 Cardiac Studies Cardiology [facility] [address] 10/15/2022 Pharmacy Land Lease Information Clerk, Pharmacy Reimbursement [address] [place], [place] [id number] 12/14/2022 Cardiac Studies Cardiology [facility] 132 [facility] [place] [address] 01/07/2023 Office Visit Cardiology Denis Langston MD 132 [facility] [place] [address] 03/25/2023 Cardiac Studies Cardiology [facility] [address] [place] [address] Pending Results Name Type Priority Associated Diagnoses Date /Time CBC Lab Routine Hyperglycemia Iron deficiency anemia Essential (primary) hypertension Hypothyroidism 06/12/2022 11:41 AM EDT HEMOGLOBIN A1C Lab Routine Hyperglycemia Iron deficiency [...] as of this encounter Visit Diagnoses Diagnosis Hyperglycemia Other abnormal glucose Iron deficiency anemia Iron deficiency anemia, unspecified Essential (primary) hypertension Unspecified essential hypertension Hypothyroidism Unspecified hypothyroidism documented in this encounter Advance Directives Documents on File Type Date Recorded Patient Non Destructive Evaluation Technician Expl anation Advanced Directive Advanced Directive [...] Advanced Directive 01/26/2013 11:57 AM Care Teams Mechanical Manager Relationship Specialty Start Date End Date Hank Oshea MD [address] [place] [address] PCP - General Internal Medicine 08/13/14 documented as of this encounter
--- OUTSIDE RECORDS SUMMARY | 2023-09-08 00:40 | External Medical Summary | Summary of Care ---
Author Name Unknown Organization [place] [address] Care Team Providers Care Revenue Cycle Administrator Name Role Phone Hank Oshea MD Primary Care Provider [phone] Reason for Visit * Reason Onset Date Comments Medication Refill 06/15/2022 Encounter Details Date Type Department Care Team Description 06/15/2022 Refill Cardiology, [facility] [address] [facility] [place] [address] Wilmar Lay PA-C 132 [facility] [place] [address] Allergies No known active allergiesdocumented as of this encounter (statuses as of 06/15/2022) Medications Medication Sig Dispensed Refills Start Date End Date Status VITAMIN D 2000 UNITS PO TABS one tablet daily 0 Active nitroglycerin (NITROSTAT) 0.4 MG SUBLIndications:Coron richardson artery disease involving [place] coronary artery of [place] heart without angina pectoris,Myocardial infarction involving other [...] Oral Tablet (Lanoxin)Indications: Coronary artery disease involving [place] coronary artery of [place] heart without angina pectoris,Chronic atrial fibrillation (HCC) [...] (automatic cardioverter/defibril lator) present,Coronary artery disease of [place] artery of [place] heart with stable angina pectoris (HCC) Take [...] encounter Miscellaneous Notes * Telephone Encounter - DENISE Rojo - 06/15/2022 9:24 AM EDT Pt calling to request Rosuvastatin. Informed pt that RX is available at their pharmacy. Pt verbalized understanding and stated they will check with their pharmacy regarding this medication. Thanks, William Drummond t [facility] Refill Call Center 06/15/2022,9:24 AM documented in this encounter Plan of Treatment Upcoming Encounters Date Type Specialty Care Team Description 07/16/2022 Anticoagulation Pharmacy Pharmacist1, [facility] [address] [place] [address] 07/21/2022 Office Visit Cardiology Wilmar Lay PA-C 132 [facility] [place] [address] 09/02/2022 Cardiac Studies Cardiology [facility] [address] [place] [address] 10/15/2022 Pharmacy Communications Tower Climber, Pharmacy Reimbursement [facility] [address] 12/14/2022 Cardiac Studies Cardiology [facility] 132 [facility] [place] [address] 01/07/2023 Office Visit Cardiology Denis Langston MD 132 [facility] [place] [address] 03/25/2023 Cardiac Studies Cardiology [facility] 132 [facility] [place] [address] Health Maintenance Due Date Last Done Comments [...] Not on filedocumented as of this encounter Advance Directives Documents on File Type Date Recorded Patient Theatre Instructor Expl anation Advanced Directive Advanced Directive Advanced [...] Advanced Directive 01/26/2013 11:57 AM Care Teams Revenue Cycle Administrator Relationship Specialty Start Date End Date Hank Oshea MD [address] [address] PCP - General Internal Medicine 08/13/14 documented as of this encounter
--- OUTSIDE RECORDS SUMMARY | 2023-09-08 00:40 | External Medical Summary ---
Author Name Unknown Address Unknown Organization K01:[facility] - [address] [place] [address] Laboratory Report Ordering Provider Test Date Status ROXANA MAYA 06/12/2022 11:41:15 Final Observation Date Value Abnormality Reference (Units ) Status Digoxin 06/12/2022 11:41:15 0.9 0.5-2.0 (n g/mL) Final Performing Location [facility] - [address] [place] [address]
--- OUTSIDE RECORDS SUMMARY | 2023-09-08 00:40 | External Medical Summary | Summary of Care ---
Author Name Unknown Organization [place] [address] Care Team Providers Care Ream Cutter Name Role Phone Hank Oshea MD Primary Care Provider [phone] Reason for Visit * Reason Comments Appointment Encounter Details Date Type Department Care Team Description 07/16/2022 Anticoagulation Pharmacy, [facility] 200 [facility] [place] [address] Pharmacist1, [facility] 200 [facility] [place] [address] Myocardial infarction, unspecified [place] type, unspecified artery (HCC)*; Chronic atrial fibrillation (HCC); Atrial fibrillation, unspecified type (HCC); Anticoagulation management encounter; terminal gauger 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 therapy Allergies No known active allergiesdocumented as of this encounter (statuses as of 07/16/2022) Medications Medication Sig Dispensed Refills Start Date End Date Status VITAMIN D 2000 UNITS PO TABS one tablet daily 0 Active nitroglycerin (NITROSTAT) 0.4 MG SUBLIndications:Coron richardson artery disease involving [place] coronary artery of [place] heart without angina pectoris,Myocardial infarction involving other [...] (automatic cardioverter/defibril lator) present,Coronary artery disease of [place] artery of [place] heart with stable angina pectoris (HCC) Take 1 tablet on Wed, Wed, and Wed 45 Tablet 3 04/17/2022 Active Digoxin 125 MCG Oral Tablet (Lanoxin)Indications: Coronary artery disease involving [place] coronary artery of [place] heart without angina pectoris,Chronic atrial fibrillation (HCC) TAKE ONE TABLET BY MOUTH ON WEDNESDAY, WEDNESDAY AND WEDNESDAY 28 Tablet 11 07/01/2022 Active documented as of this encounter (statuses as of 07/16/2022) Active Problems Problem Noted Date AICD (automatic cardioverter/defibrillat or) present 02/10/2013 Heart failure, systolic, due to CAD 06/2013 Ischemic cardiomyopathy 01/06/2013 Atrial fibrillation 01/06/2013 CAD (coronary artery disease) 07/25/2012 OK (myocardial infarction) 07/25/2012 documented as of this encounter (statuses as of 07/16/2022) Immunizations Name Administration Dates Next Due COVID-19 [...] Progress Notes * Anibal Raymundo RPh - 07/16/2022 11:26 AM EDT Medication Therapy Disease Management - Anticoagulation Lucian Larson Jr. 1935 Patient Findings Negatives: Signs/symptoms of thrombosis, Signs/symptoms of bleeding, Change in health, Change in alcohol use, Change in activity, Upcoming invasive procedure, Missed doses, Extra doses, Change in medications, Change in diet/appetite, Bruising INR Result As of 07/16/2022 INR goal: 2.0-3.0 INR used for dosin.5 (07/16/2022) Warfarin Plan As of 07/16/2022 Full warfarin instructions: 2.5 mg every Mon, Wed, Fri; 5 mg all other days No change documented: Anibal Raymundo RPh Next INR check: 08/27/2022 Repeat PT/INR in 6 week(s) Weekly dose: not changed Anibal Caceres RPh, CACP, CDE Clinical Pharmacist Medication Therapy [facility] 07/16/2022 11:32 AM documented in this encounter Plan of Treatment Upcoming Encounters Date Type Specialty Care Team Description 07/21/2022 Office Visit [facility] [address] 08/27/2022 Anticoagulation Pharmacy Pharmacist1, [facility] 200 [facility], [place] [address] 09/02/2022 Cardiac Studies Cardiology [facility] [address] 10/15/2022 Pharmacy Bailing Machine Operator, Pharmacy Reimbursement [address] [place] [address] 12/14/2022 Cardiac Studies Cardiology [facility] 132 [facility] [place] [address] 01/07/2023 Office Visit Cardiology Denis [facility] [address] 03/25/2023 Cardiac Studies Cardiology [facility] 132 [facility] [place] [address] Health Maintenance Due Date Last Done Comments [...] Comments INR FINGERSTICK, POINT OF CARE STAT 07/16/2022 11:30 AM EDT Atrial fibrillation, unspecified type (HCC) Myocardial infarction, unspecified [place] type, unspecified artery (HCC) Anticoagulation management encounter [facility] 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 therapy documented in this encounter Results * INR FINGERSTICK, POINT OF CARE (07/16/2022 11:30 AM EDT) Fingerstick INR 2.5 INR LAB[facility]ORY [facility] 56-02 Specimen Blood Narrative [facility] [place] [facility]- - 07/16/2022 11:33 AM EDT Therapeutic ranges for non-operative patients: Prophylaxsis/treatment of DVT: (Range:2.0-3.0) Treatment of pulmonary embolism:(Range:2.0-3.0) Prevention of systemic embolism from: -tissue heart valves -acute myocardial infarction -valvular heart disease -atrial fibrillation (Range: 2.0-3.0) Mechanical prosthetic valves: (Range: 2.5-3.5) LAB[facility] [place] [facility]- [address] [place], [place] [id number] documented in this encounter Visit Diagnoses Diagnosis Myocardial infarction, unspecified [place] type, unspecified artery (HCC)- Primary Chronic atrial fibrillation (HCC) Atrial fibrillation Atrial fibrillation, unspecified type (HCC) Anticoagulation management encounter Encounter for therapeutic drug monitoring [facility] 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 therapy documented in this encounter Advance Directives Documents on File Type Date Recorded Patient Clearance Center Manager Expl anation Advanced Directive Advanced Directive Advanced [...] Advanced Directive 01/26/2013 11:57 AM Care Teams Ream Cutter Relationship Specialty Start Date End Date Hank Oshea MD PCP - General Internal Medicine 08/13/14 documented as of this encounter
--- OUTSIDE RECORDS SUMMARY | 2023-09-08 00:40 | External Medical Summary ---
Author Name Unknown Address Unknown Organization K09:[facility] [place] [address] Laboratory Report Ordering Provider Test Date Status SHANIA MEYRE 07/16/2022 11:30:30 Final Therapeutic ranges for non-o perative patients:
Prophylaxsis/treatment of DVT: (Range:2.0-3.0)
Treatment of pulmonary embolism:(Range:2.0-3.0)
Prevention of systemic embolism from:
-tissue heart valves
-acute myocardial infarction
-valvular heart disease
-atrial fibrillation
(Range: 2.0-3.0)
Mechanical prosthetic valves: (Range: 2.5-3.5) Observation Date Value Abnormality Reference (Units ) Status INR in Capillary blood by Coagulation assay 07/16/2022 11:30:30 2.5 (INR) Final Performing Location [facility] [place] [address]
--- OUTSIDE RECORDS SUMMARY | 2023-09-08 00:41 | External Medical Summary ---
Author Name Unknown Address Unknown Organization K09:[facility] [place] [address] Laboratory Report Ordering Provider Test Date Status SHANIA MEYER 06/12/2022 11:23:05 Final Therapeutic ranges for non-o perative patients:
Prophylaxsis/treatment of DVT: (Range:2.0-3.0)
Treatment of pulmonary embolism:(Range:2.0-3.0)
Prevention of systemic embolism from:
-tissue heart valves
-acute myocardial infarction
-valvular heart disease
-atrial fibrillation
(Range: 2.0-3.0)
Mechanical prosthetic valves: (Range: 2.5-3.5) Observation Date Value Abnormality Reference (Units ) Status INR in Capillary blood by Coagulation assay 06/12/2022 11:23:05 3.4 (INR) Final Performing Location [facility] [place] [address]
--- OUTSIDE RECORDS SUMMARY | 2023-09-08 00:41 | External Medical Summary ---
Author Name Unknown Address Unknown Organization K09:[facility] [place] [address] Laboratory Report Ordering Provider Test Date Status ARSH MAYAO 06/12/2022 11:41:15 Final Observation Date Value Abnormality Reference (Units ) Status Magnesium 06/12/2022 11:41:15 2.3 1.5-2.6 (m g/dL) Final Performing Location [facility] [place] [address]
--- OUTSIDE RECORDS SUMMARY | 2023-09-08 00:41 | External Medical Summary ---
Author Name Unknown Address Unknown Organization K09:[facility] [place] [address] Laboratory Report Ordering Provider Test Date Status SHANIA MEYER 02/19/2022 13:18:50 Final Therapeutic ranges for non-o perative patients:
Prophylaxsis/treatment of DVT: (Range:2.0-3.0)
Treatment of pulmonary embolism:(Range:2.0-3.0)
Prevention of systemic embolism from:
-tissue heart valves
-acute myocardial infarction
-valvular heart disease
-atrial fibrillation
(Range: 2.0-3.0)
Mechanical prosthetic valves: (Range: 2.5-3.5) Observation Date Value Abnormality Reference (Units ) Status INR in Capillary blood by Coagulation assay 02/19/2022 13:18:50 4.8 (INR) Final Performing Location [facility] [place] [address]
--- OUTSIDE RECORDS SUMMARY | 2023-09-08 00:41 | External Medical Summary ---
Author Name Unknown Address Unknown Organization K09:[facility] [place] [address] Laboratory Report Ordering Provider Test Date Status SHANIA MEYER 03/06/2022 13:56:33 Final Therapeutic ranges for non-o perative patients:
Prophylaxsis/treatment of DVT: (Range:2.0-3.0)
Treatment of pulmonary embolism:(Range:2.0-3.0)
Prevention of systemic embolism from:
-tissue heart valves
-acute myocardial infarction
-valvular heart disease
-atrial fibrillation
(Range: 2.0-3.0)
Mechanical prosthetic valves: (Range: 2.5-3.5) Observation Date Value Abnormality Reference (Units ) Status INR in Capillary blood by Coagulation assay 03/06/2022 13:56:33 2.3 (INR) Final Performing Location [facility] [place] [address]
--- OUTSIDE RECORDS SUMMARY | 2023-09-08 00:41 | External Medical Summary | Summary of Care ---
Author Name Unknown Organization [place] [address] Care Team Providers Care Ring Attacher Name Role Phone Hank Oshea MD Primary Care Provider [phone] Reason for Visit * Reason Comments Defibrillator Clinic Encounter Details Date Type Department Care Team Description 05/20/2022 Cardiac Studies Cardiology, [facility] [place] [address] [place], [facility] 132 [facility] [place] [address] Ischemic cardiomyopathy*; Chronic atrial fibrillation (HCC); AICD (automatic cardioverter/defibril lator) present Allergies No known active allergiesdocumented as of this encounter (statuses as of 05/20/2022) Medications Medication Sig Dispensed Refills Start Date End Date Status VITAMIN D 2000 UNITS PO TABS one tablet daily 0 Active nitroglycerin (NITROSTAT) 0.4 MG SUBLIndications:Coron richardson artery disease involving [place] coronary artery of [place] heart without angina pectoris,Myocardial infarction involving other [...] Oral Tablet (Lanoxin)Indications: Coronary artery disease involving [place] coronary artery of [place] heart without angina pectoris,Chronic atrial fibrillation (HCC) [...] (automatic cardioverter/defibril lator) present,Coronary artery disease of [place] artery of [place] heart with stable angina pectoris (HCC) Take 1 tablet on Mon, Wed, and Fri 45 Tablet 3 04/17/2022 Active documented as of this encounter (statuses as of 05/20/2022) Active Problems Problem Noted Date AICD (automatic cardioverter/defibrillat or) present 02/10/2013 Heart failure, systolic, due to CAD 06/2013 Ischemic cardiomyopathy 01/06/2013 Atrial fibrillation 01/06/2013 CAD (coronary artery disease) 07/25/2012 NC (myocardial infarction) 07/25/2012 documented as of this encounter (statuses as of 05/20/2022) Immunizations Name Administration Dates Next Due COVID-19 [...] as of this encounter Progress Notes * Addi Vaughn TECH - 05/20/2022 10:45 AM EDT REMOTE MONITORING TRANSMISSION - DEFIBRILLATOR -- 05/20/2022 TYPE OF VISIT: This is a scheduled remote monitoring transmission. INDICATION: I25.5 Ischemic cardiomyopathy (primary encounter diagnosis) I48.20 Chronic atrial fibrillation (HCC) Z95.810 AICD (automatic cardioverter/defibrillator) present IMPLANTING PHYSICIAN: Dr. Cindi Davidson DO. IMPLANT/DEVICE HISTORY: January 28, 2022 CURRENT SYSTEM: ICD: Medtronic Model: Visia AF MRI [id number] SN: [id number] RV lead: Medtronic Model: 6935-65 SN: [id number] (02-02-2013) OLD SYSTEM: ICD: Medtronic, model - Eric II VR [id number] SN: [id number] Implant: 02-02-2013 (Explanted 01/28/22) Abandoned leads: None ALERTS/ADVISORIES: None PATIENT EVALUATION: Presenting rhythm : RV paced rhythm DEVICE EVALUATION: RV Auto threshold: 0.5 volts at 0.4 msec Sensin.1 mV Pacing impedance:475 ohms Percentage paced:96.2 % HVLI: 52 ohms Battery: 3.13 volts (11 years) PANCHO: 2.73 volts Charge time: 3.9 seconds Short V-V intervals: 0 PVC singles: 33.6 / hour in a 88 day period Mode switch episodes: N/A Thoracic impedance monitoring: Fluid index reveals a baseline thoracic impedance indicating normal fluid status. VT/VF episodes (since last evaluation): 2 VT nonsustained episodes of which the longest is 1 seconds with a ventricular rate of 200 bpm. 65 VT episodes of which the longest is 1 minute and 31 secondswith a ventricular rate of 142 bpm Past VT/VF episodes: First shock: 0 Most recent shock: 0 Total ICD shocks/ATP therapy: Appropriate shocks: 0 Inappropriate shocks: 0 ATP therapy: 0 FINAL ICD PARAMETERS: Pacemaker mode/rate: VVIR at 50 bpm RV Amplitude: 1.5 Volts Pulse width: 0.4 msec VT detection: ON Rate - 167 - 200 bpm (Burst ( 3 ), 35 joules x 5 ) FVT detection: OFF VF detection: ON Rate - >200 bpm ( ATP during charging, 35 joules x 6 ) Mode switch: OFF IMPRESSION: Normal defibrillator function. Adequate battery reserve Patient has had a significant increase in the number of VT episodes. PLAN: The next remote monitoring transmission is scheduled for 3 months. Nurse: Addi Vaughn [facility] SWIM INSTRUCTOR: Dr. Langston This patient was interrogated remotely via the Heart Rhythm Device clinic by the device clinic nurse. The device function was found to be normal. No changes were made to the programmed parameters. I have personally reviewed the results of the device evaluation and I agree with the nurse's finding, conclusions and disposition. Denis Langston MD documented in this encounter Plan of Treatment Upcoming Encounters Date Type Specialty Care Team Description 06/12/2022 Anticoagulation Pharmacy Pharmacist2, [facility] 200 [facility] [place] [address] 07/21/2022 Office Visit Cardiology Wilmar Lay PA-C 132 [facility] [place] [address] 09/02/2022 Cardiac Studies Cardiology [place], [facility] 132 [facility] [place] [address] 10/15/2022 Pharmacy Manager Of Merchandising, Pharmacy Reimbursement [address] [place] [address] 12/14/2022 Cardiac Studies Cardiology [facility] 132 [facility] [place] [address] 01/07/2023 Office Visit Cardiology [facility] [place] [address] 03/25/2023 Cardiac Studies Cardiology [facility] 132 [facility] [place] [address] Scheduled Orders Name Type Priority Associated Diagnoses Orde r Schedule DEFIBRILLATOR REMOTE INTERROGATION EVAL/INTERP,TO 90D Procedures Routine Ischemic cardiomyopathy Chronic atrial fibrillation (HCC) AICD (automatic cardioverter/defibrilla tor) present Ordered: 05/20/2022 PACER/ICD REMOTE DATA CAPTURE/TECH REVIEW,90D Procedures Routine Ischemic cardiomyopathy Chronic atrial fibrillation (HCC) AICD (automatic cardioverter/defibrilla tor) present Ordered: 05/20/2022 Health Maintenance Due Date Last Done Comments [...] Documents on File Type Date Recorded Patient Jewel Sawyer Expl anation Advanced Directive Advanced Directive Advanced [...] Advanced Directive 01/26/2013 11:57 AM Care Teams Ring Attacher Relationship Specialty Start Date End Date Hank Oshea MD [address] [address] PCP - General Internal Medicine 08/13/14 documented as of this encounter
--- OUTSIDE RECORDS SUMMARY | 2023-09-08 00:41 | External Medical Summary ---
Author Name Unknown Address Unknown Organization K0G:[facility] [place] [facility] - [address] [place] [address] Laboratory Report Ordering Provider Test Date Status SHANIA MEYER 02/05/2022 12:00:53 Final Warfarin Therapy
INR: 2 .0-3.0 conventional anticoagulation
INR: 2.5- 3.5 high intensity anticoagulation Observation Date Value Abnormality Reference (Units ) Status PT 02/05/2022 12:00:53 32.0 Above high normal 11 .5-14.6 (seconds) Final INR 02/05/2022 12:00:53 3.12 Above high normal 0. 84-1.14 Final Performing Location [facility] 0 - [address] [place] [address]
--- OUTSIDE RECORDS SUMMARY | 2023-09-08 00:41 | External Medical Summary | Summary of Care ---
Author Name Unknown Organization [place] [address] Care Team Providers Care Destination Imagination Coordinator Name Role Phone Hank Oshea MD Primary Care Provider [phone] Reason for Visit * Reason Comments Defibrillator Clinic Encounter Details Date Type Department Care Team Description 02/05/2022 Cardiac Studies Cardiology, [facility] [place] [address] [place], Pacer [facility] 132 [facility] [place] [place] [address] Ischemic cardiomyopathy*; Chronic atrial fibrillation (HCC); AICD (automatic cardioverter/defibril lator) present Allergies No known active allergiesdocumented as of this encounter (statuses as of 02/12/2022) Medications Medication Sig Dispensed Refills Start Date End Date Status VITAMIN D 2000 UNITS PO TABS one tablet daily 0 Activ e nitroglycerin (NITROSTAT) 0.4 MG SUBLIndications:Cor onary artery disease involving [place] coronary artery of [place] heart without angina pectoris,Myocardial infarction involving other [...] mcg by mouth daily. 3 07/30/2019 Active Metoprolol Succinate ER 50 MG Oral Tablet Extended Release 24 Hour (toPROL XL)Indications:Atri al fibrillation, unspecified type (HCC) Take 1 tablet by mouth twice daily 182 Tab 3 03/21/2021 Active Rosuvastatin Calcium 5 MG Oral Tablet (Crestor)Indication s:Heart failure, systolic, due to CAD (HCC),Ischemic cardiomyopathy,AICD (automatic cardioverter/defibr illator) present,CAD (coronary artery disease) TAKE 1 TABLET BY MOUTH EVERY OTHER DAY 45 Tab 4 03/24/2021 Active Additional Information Patient taking differently: (No instructions reported), Reported on 01/13/2022 Warfarin Sodium 5 MG Oral Tablet (Coumadin)Indicatio ns:Atrial fibrillation (HCC) TAKE TWO TABS (10MG) BY MOUTH ON WEDNESDAY AND ONE TAB (5MG) ALL OTHER DAYS 40 Tab 11 05/12/2021 Active Additional Information Patient taking differently: 5 mg Oral DAILY, (No instructions reported), Reported on 10/06/2021 Digoxin 125 MCG Oral Tablet (Lanoxin)Indication s:Coronary artery disease involving [place] coronary artery of [place] heart without angina pectoris,Chronic atrial fibrillation (HCC) TAKE 1 TABLET BY MOUTH ON WEDNESDAY, WEDNESDAY AND WEDNESDAY. 28 Tab 11 05/12/2021 Active Clopidogrel Bisulfate 75 MG Oral Tablet (pLAVix)Indications :Permanent atrial fibrillation (HCC) Take 1 Tablet by mouth daily. 90 Tablet 3 10/06/2021 Active Entresto 24-26 MG Oral Tablet (sacubitril-valsart an 24-26 mg per tab)Indications:Isc hemic cardiomyopathy,Hear t failure, systolic, due to CAD (HCC) Take 1/2 tab each am and pm 90 Tablet 3 10/06/2021 Active Furosemide 20 MG Oral Tablet (Lasix) Take by mouth 3 Tablets in the morning. 270 Tablet 3 01/01/2022 Active documented as of this encounter (statuses as of 02/12/2022) Active Problems Problem Noted Date AICD (automatic cardioverter/defibrillat or) present 02/10/2013 Heart failure, systolic, due to CAD 06/2013 Ischemic cardiomyopathy 01/06/2013 Atrial fibrillation 01/06/2013 CAD (coronary artery disease) 07/25/2012 [place] (myocardial infarction) 07/25/2012 documented as of this encounter (statuses as of 02/12/2022) Immunizations Name Administration Dates Next Due COVID-19 mRNA, LNP-s, No Pre serve, 2-Dose Series (Moderna) 01/21/2021,12/24/2020 DTaP - Dipth/Tet/Acell Pertussis 07/29/2017 Seasonal Influenza, Split, IIV3, With Preserve, Inj 07/29/2017,08/08/2012 documented as of [...] encounter Progress Notes * GHULAM Pino - 02/05/2022 3:11 PM EDT HEART RHYTHM DEVICE CLINIC - SINGLE CHAMBER DEFIBRILLATOR -- 02/05/2022 TYPE OF VISIT:Post implant - wound/pacemaker (1 -3 weeks) Routine single chamber defibrillator follow. INDICATION: I25.5 Ischemic cardiomyopathy (primary encounter diagnosis) I48.20 Chronic atrial fibrillation (HCC) Z95.810 AICD (automatic cardioverter/defibrillator) present IMPLANTING PHYSICIAN: Dr. Cindi Davidson DO. IMPLANT/DEVICE HISTORY: January 28, 2022 CURRENT SYSTEM: ICD: Medtronic Model: Visia AF MRI [id number] SN: [id number] RV lead: Medtronic Model: 6935-65 SN: [id number] (02-02-2013) OLD SYSTEM: ICD: Medtronic, model - Eric II VR [id number] SN: [id number] Implant: 02-02-2013 (Explanted 01/28/22) Abandoned leads: None ALERTS/ADVISORIES: None PATIENT EVALUATION: Symptoms: No dizziness, palpitations, syncope, or presyncope. Pocket evaluation: Left pectoral device pocket appears to be healing. Tegaderm and telfa dressing removed. No drainage is noted. Incision edges are in approximation. Surgical adhesive is intact to incision. Resolving ecchymosis is noted. Area is soft to palpation. Patient denies any problems upon questioning. Patient had a rash on his lower abdomen and back and was instructed to call if it did not improve or if it got worse. Intrinsic rhythm: Atrial FIbrillation with intact AV node function. DEVICE EVALUATION: R V Pacing threshold: 0.5 volts at 0.4 msec Sensin.3 mV Pacing impedance: 456 ohms Percentage paced: 87.5 % HVLI: 50 ohms Thoracic impedance monitoring: initializing Battery: 3.15 volts PANCHO: 2.73 volts Charge time: Not yet measured- seconds Short V-V intervals: 0 PVC singles: 35.1 / hour in a 8 day period (this is a new device ) Oral anticoagulant therapy: Plavix, Coumadin Rate/Rhythm medication: Digoxin, Metoprolol VT/VF episodes (since last evaluation): 1VT nonsustained episodes of which the longest is 2 secondswith a ventricular rate of 169 bpm. 6 VT episodes of which the longest is 9 hours with a ventricular rate of 158 bpm Past VT/VF episodes: First shock: 0 [...] joules x 6 ) Mode switch: OFF PARAMETER CHANGES: None IMPRESSION: Normal single chamber defibrillator function. Adequate battery reserve PLAN: Patient teaching about new devices and device follow explained. Cleanse area with antibacterial soap and pat dry Advoidance of dental procedures for 6 months Carry an ID card that contains information about your pacemaker. You can show this card if your pacemaker sets off a metal detector. You should also show it to avoid screening with a hand-held security wand. Keep your cell phone away from your pacemaker. Dont carry the phone in your shirt pocket, even when its turned off. Avoid strong magnets. Examples are those used in MRIs or in hand-held security wands. Avoid strong electrical higgins. Examples are those made by radio transmitting towers, ham radios, and heavy-duty electrical equipment. Avoid leaning over the open dennis of a running car. A running engine creates an electrical field. Patient given a new remote monitoring transmission schedule for every 14 weeks until next Heart Rhythm Device Clinic. Return to Heart Rhythm Device Clinic in 56 weeks. Nurse: Addi Vaughn [facility] INSTRUCTOR: Dr. Davidson The patient was seen in Heart Rhythm clinic by the automotive paint technician. The ICD function, including battery reserve, lead impedence, pacemaker thresholds and amplitudes, were found to be normal. No changes were made in the device parameters. I have personally reviewed the results of the device evaluation, and I agree with the automotive paint technician's findings, conclusions and disposition. Cindi Davidson [place] [address] documented in this encounter Plan of Treatment Upcoming Encounters Date Type Specialty Care Team Description 02/19/2022 Anticoagulation Pharmacy Pharmacist1, [facility] [address] [facility], [place] [address] 04/17/2022 Office Visit Cardiology Wilmar Lay PA-C [address] [place] [address] 05/20/2022 Cardiac Studies Cardiology Nirali Y[facility] 132 [place] [address] 09/02/2022 Cardiac Studies Cardiology Marcelino [facility] [address] 10/15/2022 Pharmacy Machine Castings Plasterer, Pharmacy Reimbursement [address], [place] [id number] 12/14/2022 Cardiac Studies Cardiology [facility] [address] [place] [address] 03/25/2023 Cardiac Studies Cardiology [facility] [address] [place] [address] Scheduled Orders Name Type Priority Associated Diagnoses Orde r Schedule POSTOP F-UP VISIT IN GLOBAL Procedures Routine Ischemic cardiomyopathy Chronic atrial fibrillation (HCC) AICD (automatic cardioverter/defibrillato r) present Ordered: 02/05/2022 Health Maintenance Due Date Last Done Comments Depression Screening, Annual for Pts 12 and Over 1946 Zoster Vaccines (1 of 2) 1984 Pneumococcal Vaccine: 65+ Years (1 of 1 - PPSV23) 1999 COVID-19 Vaccine (3 - Booster for Moderna series) 06/23/2021 01/21/2021, 12/24/2020 Influenza Vaccine (FLU shot) (Season Ended) 2022 07/29/2017, 08/08/2012 TSH FOR THYROID MEDICATION MONITORING YEARLY 10/06/2022 10/06/2021, 03/21/2021, 02/07/2021, Additional history exists DIG LEVEL FOR MEDICATION MONITORING YEARLY 01/27/2023 01/27/2022, 10/06/2021, 03/14/2020, Additional history exists DIABETES SCREEN EVERY 3 YRS-AGE 45 AND ABOVE 01/27/2025 01/27/2022, 01/13/2022, 01/01/2022, Additional history exists DTaP,Tdap,and Td Vaccines (2 - Tdap) 07/29/2027 07/29/2017 GARDASIL-HPV IMMUNIZATION SERIES Aged Out No longer eligible based on patient's age to complete this topic MENINGOCOCCAL (MENACTRA/MENVEO) Aged Out No longer eligible based on patient's age to complete this topic documented as of this encounter Implants Not on filedocumented as of this encounter Procedures Procedure Name Priority Date/Time Associated Diagnosis Comments SINGLE-LEAD DEFIBRILLATOR + REPROGRAM Routine 02/05/2022 Ischemic cardiomyopathy Chronic atrial fibrillation (HCC) AICD (automatic cardioverter/defibrill ator) present documented in this encounter Results * SINGLE-LEAD DEFIBRILLATOR + REPROGRAM (02/05/2022) Specimen Narrative documented in this encounter Visit Diagnoses Diagnosis Ischemic cardiomyopathy- Primary Other specified forms of chronic ischemic heart disease Chronic atrial fibrillation (HCC) Atrial fibrillation AICD (automatic cardioverter/defibrillator) present Automatic implantable cardiac defibrillator in situ documented in this encounter Advance Directives Documents on File Type Date Recorded Patient Manager Intermediate Expl anation Advanced Directive Advanced Directive Advanced [...] Advanced Directive 01/26/2013 11:57 AM Care Teams Destination Imagination Coordinator Relationship Specialty Start Date End Date Hank Oshea MD [address] [address] PCP - General Internal Medicine 08/13/14 documented as of this encounter
--- OUTSIDE RECORDS SUMMARY | 2023-09-08 00:41 | External Medical Summary | Summary of Care ---
Author Name Unknown Organization [place] [address] Care Team Providers Care Gun Repair Clerk Name Role Phone Hank Oshea MD Primary Care Provider Reason for Visit * Reason Comments Dosage Adjustment Via Phone (anticoag Cl inic) Encounter Details Date Type Department Care Team Description 02/05/2022 Anticoagulation Pharmacy, [facility] 200 [facility] [place] [address] Pharmacist2, [facility] [address] [facility] [place] [address] Atrial fibrillation, unspecified type (HCC)* Allergies No known active allergiesdocumented as of this encounter (statuses as of 02/05/2022) Medications Medication Sig Dispensed Refills Start Date [...] as of this encounter (statuses as of 02/05/2022) Active Problems Problem Noted Date AICD (automatic cardioverter/defibrillat or) present 02/10/2013 Heart failure, systolic, due to CAD 06/2013 Ischemic cardiomyopathy 01/06/2013 Atrial fibrillation 01/06/2013 CAD (coronary artery disease) 07/25/2012 NM (myocardial infarction) 07/25/2012 documented as of this encounter (statuses as of 02/05/2022) Immunizations Name Administration Dates Next Due COVID-19 [...] of this encounter Progress Notes * Luiza Masters, [facility] - 02/05/2022 3:15 PM EDT Images from the original note were not included. Medication Therapy Disease Management - Anticoagulation Patient: Lucian Larson Jr. : 1935 Contacts Type Contact Phone 02/05/2022 03:16 PM EDT Phone (Outgoing) Lucian Larson Jr. (Self) [phone] (H) spoke to Current Warfarin Dose As of 02/05/2022 Warfarin maintenance plan: 2.5 mg (5 mg x 0.5) every Mon; 5 mg (5 mg x 1) all other days Patient-Reported Symptoms: Patient Findings Negatives: Signs/symptoms of thrombosis, Signs/symptoms of bleeding, Change in health, Change in alcohol use, Change in activity, Upcoming invasive procedure, Missed doses, Extra doses, Change in medications, Change in diet/appetite, Bruising INR Result As of 02/05/2022 INR goal: 2.0-3.0 INR used for dosin.12 (02/05/2022) Warfarin Plan As of 02/05/2022 Full warfarin instructions: 2.5 mg every Mon, Fri; 5 mg all other days Next INR check: 02/19/2022 Additional Dosing Information: Repeat PT/INR in 2 week(s) Weekly dose: decreased Luiza Paz [facility] Clinical Pharmacist 02/05/2022, 3:15 PM documented in this encounter Plan of Treatment Upcoming Encounters Date Type Specialty Care Team Description 02/19/2022 Anticoagulation Pharmacy Pharmacist1, [facility] 200 [place] [address] 04/17/2022 Office Visit Cardiology Wilmar Lay PA-C [address] [place] [address] 05/20/2022 Cardiac Studies Cardiology [facility] [address] [facility] [address] 09/02/2022 Cardiac Studies Cardiology [facility] [address] [place] [address] 10/15/2022 Pharmacy Hearing Examiner, Pharmacy Reimbursement [address] [place], [place] [id number] 12/14/2022 Cardiac Studies Cardiology [facility] [address] [place] [address] 03/25/2023 Cardiac Studies Cardiology [facility] [address] [place] [address] Health Maintenance Due Date Last Done Comments [...] as of this encounter Visit Diagnoses Diagnosis Atrial fibrillation, unspecified type (HCC)- Primary documented in this encounter Advance Directives Documents on File Type Date Recorded Patient Software Controls Engineer Expl anation Advanced Directive Advanced Directive Advanced [...] Advanced Directive 01/26/2013 11:57 AM Care Teams Gun Repair Clerk Relationship Specialty Start Date End Date Hank Oshea MD [address] [address] PCP - General Internal Medicine 08/13/14 documented as of this encounter
--- OUTSIDE RECORDS SUMMARY | 2023-09-08 00:41 | External Medical Summary | Summary of Care ---
Author Name Unknown Organization [place] [address] Care Team Providers Care Dental Prosthetist Name Role Phone Hank Oshea MD Primary Care Provider [phone] Reason for Visit * Reason Comments Dosage Adjustment In Person (Anticoag Cl inic) Encounter Details Date Type Department Care Team Description 03/06/2022 Anticoagulation Pharmacy, [facility] 200 [facility] [place] [address] Pharmacist[address], [facility] 200 [facility] [place] [address] Atrial fibrillation, unspecified type (HCC)*; Myocardial infarction, unspecified [place] type, unspecified artery (HCC); Anticoagulation management encounter; extermination inspector 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 therapy; Atrial fibrillation (HCC) Allergies No known active allergiesdocumented as of this encounter (statuses as of 03/06/2022) Medications Medication Sig Dispensed Refills Start Date End Date Status VITAMIN D 2000 UNITS PO TABS one tablet daily 0 Activ e nitroglycerin (NITROSTAT) 0.4 MG SUBLIndications:C oronary artery disease involving [place] coronary artery of [place] heart without angina pectoris,Myocardi al infarction involving [...] XL)Indications:At rial fibrillation, unspecified type (HCC) Take 1 tablet by mouth twice daily 182 Tab 3 03/21/2021 Active Rosuvastatin Calcium 5 MG Oral Tablet (Crestor)Indicati ons:Heart failure, systolic, due to CAD (HCC),Ischemic cardiomyopathy,AI CD (automatic cardioverter/defi brillator) present,CAD (coronary artery disease) TAKE 1 TABLET BY MOUTH EVERY OTHER DAY 45 Tab 4 03/24/2021 Active Additional Information Patient taking differently: (No instructions reported), Reported on 01/13/2022 Digoxin 125 MCG Oral Tablet (Lanoxin)Indicati ons:Coronary artery disease involving [place] coronary artery of [place] heart without angina pectoris,Chronic atrial fibrillation (HCC) TAKE 1 TABLET BY MOUTH ON WEDNESDAY, WEDNESDAY AND WEDNESDAY. 28 Tab 11 05/12/2021 Active Clopidogrel Bisulfate 75 MG Oral Tablet (pLAVix)Indicatio ns:Permanent atrial fibrillation (HCC) Take 1 Tablet by mouth daily. 90 Tablet 3 10/06/2021 Active Entresto 24-26 MG Oral Tablet (sacubitril-valsa [...] (Coumadin)Indicat ions:Atrial fibrillation (HCC) TAKE 1/2 TAB WED, WED, WED (2.5mg) AND ONE TAB (5MG) ALL OTHER DAYS 70 Tablet 3 03/06/2022 Active Warfarin Sodium 5 MG Oral Tablet (Coumadin)Indicat ions:Atrial fibrillation (HCC) TAKE TWO TABS (10MG) BY MOUTH ON WEDNESDAY AND ONE TAB (5MG) ALL OTHER DAYS 40 Tab 11 05/12/2021 2 Discontinue d(Refill) documented as of this encounter (statuses as of 03/06/2022) Active Problems Problem Noted Date AICD (automatic cardioverter/defibrillat or) present 02/10/2013 Heart failure, systolic, due to CAD 06/2013 Ischemic cardiomyopathy 01/06/2013 Atrial fibrillation 01/06/2013 CAD (coronary artery disease) 07/25/2012 PA (myocardial infarction) 07/25/2012 documented as of this encounter (statuses as of 03/06/2022) Immunizations Name Administration Dates Next Due COVID-19 [...] this encounter Progress Notes * Luiza Masters, [facility] - 03/06/2022 1:53 PM EDT Medication Therapy Disease Management - Anticoagulation Patient: Lucian Larson Jr. : 1935 Current Warfarin Dose As of 03/06/2022 Warfarin maintenance plan: 2.5 mg (5 mg x 0.5) every Mon, Wed, Fri; 5 mg (5 mg x 1) all other days Patient-Reported Symptoms: Patient Findings Positives: Change in medications (reports PCP stopped his back cream which he said was interacting (possibly voltaren?)) Negatives: Signs/symptoms of thrombosis, Signs/symptoms of bleeding, Change in health, Change in alcohol use, Change in activity, Upcoming invasive procedure, Missed doses, Extra doses, Change in diet/appetite, Bruising INR Result As of 03/06/2022 INR goal: 2.0-3.0 INR used for dosin.3 (03/06/2022) Warfarin Plan As of 03/06/2022 Full warfarin instructions: 2.5 mg every Mon, Wed, Fri; 5 mg all other days No change documented: Luiza Masters RPh Next INR check: 04/03/2022 Additional Dosing Information: Repeat PT/INR in 4 week(s) Weekly dose: not changed Luiza Paz RPh Clinical Pharmacist 03/06/2022, 1:54 PM documented in this encounter Plan of Treatment Upcoming Encounters Date Type Specialty Care Team Description 04/03/2022 Anticoagulation Pharmacy Pharmacist1, [facility] [address] 04/17/2022 Office Visit Cardiology [facility]C [facility] [place] [address] 05/20/2022 Cardiac Studies Cardiology Marcelino [facility] 132 [facility] [place] [address] 09/02/2022 Cardiac Studies Cardiology [facility] [address] [place] [address] 10/15/2022 Pharmacy Development Director, Pharmacy Reimbursement [address] [place], [place] [id number] 12/14/2022 Cardiac Studies Cardiology [facility] [address] [place] [address] 03/25/2023 Cardiac Studies Cardiology [facility] [place] [address] Health Maintenance Due Date Last Done Comments [...] Comments INR FINGERSTICK, POINT OF CARE STAT 03/06/2022 1:56 PM EDT Atrial fibrillation, unspecified type (HCC) Myocardial infarction, unspecified [place] type, unspecified artery (HCC) Anticoagulation management encounter [facility] 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 therapy documented in this encounter Results * INR FINGERSTICK, POINT OF CARE (03/06/2022 1:56 PM EDT) Fingerstick INR 2.3 INR [facility] 56-02 Specimen Blood Narrative [facility] [place] [facility]-02 - 03/06/2022 1:58 PM EDT Therapeutic ranges for non-operative patients: Prophylaxsis/treatment of DVT: (Range:2.0-3.0) Treatment of pulmonary embolism:(Range:2.0-3.0) Prevention of systemic embolism from: -tissue heart valves -acute myocardial infarction -valvular heart disease -atrial fibrillation (Range: 2.0-3.0) Mechanical prosthetic valves: (Range: 2.5-3.5) Performing Organization Address City/State/[facility] de Phone Number [facility] [place] [phone] [place] [address] documented in this encounter Visit Diagnoses Diagnosis Atrial fibrillation, unspecified type (HCC)- Primary Myocardial infarction, unspecified [place] type, unspecified artery (HCC) Anticoagulation management encounter Encounter for therapeutic drug monitoring extermination inspector 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 therapy documented in this encounter Advance Directives Documents on File Type Date Recorded Patient Payroll Accounting Manager Expl anation Advanced Directive Advanced Directive [...] Directive 01/26/2013 11:57 AM Care Teams Dental Prosthetist Relationship Specialty Start Date End Date Hank Oshea MD [address] [address] PCP - General Internal Medicine 08/13/14 documented as of this encounter
--- OUTSIDE RECORDS SUMMARY | 2023-09-08 00:41 | External Medical Summary | Summary of Care ---
Author Name Unknown Organization [place] [address] Care Team Providers Care Bolt Machine Operator Name Role Phone Hank Oshea MD Primary Care Provider [phone] Reason for Visit * Reason Comments Outpatient Testing Encounter Details Date Type Department Care Team Description 02/05/2022 Laboratory Laboratory, [facility] 132 [facility] [place] [address] [facility] [address] Atrial fibrillation, unspecified type (HCC); Myocardial infarction, unspecified ID type, unspecified artery (HCC); Anticoagulation management encounter; truck terminal manager 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 therapy Allergies No known active allergiesdocumented as of this encounter (statuses as of 02/05/2022) Medications Medication Sig Dispensed Refills Start Date End Date Status VITAMIN D 2000 UNITS PO TABS one tablet daily 0 Activ e nitroglycerin (NITROSTAT) 0.4 MG SUBLIndications:Cor onary artery disease involving creek coronary artery of creek heart without angina pectoris,Myocardial infarction involving other [...] Oral Tablet (Lanoxin)Indication s:Coronary artery disease involving creek coronary artery of creek heart without angina pectoris,Chronic atrial fibrillation (HCC) [...] fibrillation 01/06/2013 CAD (coronary artery disease) 07/25/2012 ID (myocardial infarction) 07/25/2012 documented as of this [...] Encounters Date Type Specialty Care Team Description 02/05/2022 Anticoagulation Pharmacy Pharmacist2, [facility] [place] [address] Atrial fibrillation, unspecified type (HCC)* 02/19/2022 Anticoagulation Pharmacy Pharmacist1, [facility] 200 [facility] [place] [address] 04/17/2022 Office Visit Cardiology Wilmar Lay PA-C [address] [place] [address] 05/20/2022 [facility]iac Studies [facility] 132 [place] [address] 09/02/2022 Cardiac Studies Cardiology Gigi [facility] [address] [place] [address] 10/15/2022 Pharmacy Golf Tournament Consultant, Pharmacy Reimbursement [address] [place] [address] 12/14/2022 Cardiac Studies Cardiology [facility] [address] 03/25/2023 Cardiac Studies Cardiology [facility] 132 [facility] [place] [address] Health Maintenance Due Date Last Done Comments [...] Procedure Name Priority Date/Time Associated Diagnosis Comments PT INR Routine 02/05/2022 12:00 PM EDT Atrial fibrillation, unspecified type (HCC) Myocardial infarction, unspecified ID type, unspecified artery (HCC) Anticoagulation management encounter truck terminal manager 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 therapy documented in this encounter Results * (ABNORMAL) PT INR (02/05/2022 12:00 PM EDT) Prothrombin Time 32.0(H) 11.5 - 14.6 seconds [facility] [place] [facility] INR 3.12(H) 0.84 - 1.14 [facility] [place] [facility] [facility] Specimen Blood - Venous blood specime n (specimen) Narrative [facility]-10 - 02/05/2022 12:38 PM EDT Warfarin Therapy INR: 2.0-3.0 conventional anticoagulation INR: 2.5-3.5 high intensity anticoagulation Performing Organization Address City/State/[facility] Co de Phone Number [facility] [place] [facility]10 [address] [place] [address] documented in this encounter Visit Diagnoses Diagnosis Atrial fibrillation, unspecified type (HCC) Myocardial infarction, unspecified ID type, unspecified artery (HCC) Anticoagulation management encounter Encounter for therapeutic drug monitoring truck terminal manager 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 therapy Atrial fibrillation, unspecified type (HCC)- Primary documented in this encounter Advance Directives Documents on File Type Date Recorded Patient Student Records Coordinator Expl anation Advanced Directive Advanced Directive Advanced [...] Advanced Directive 01/26/2013 11:57 AM Care Teams Bolt Machine Operator Relationship Specialty Start Date End Date Hank Oshea MD [address] [place] [address] PCP - General Internal Medicine 08/13/14 documented as of this encounter
--- OUTSIDE RECORDS SUMMARY | 2023-09-08 00:41 | External Medical Summary | Summary of Care ---
Author Name Unknown Organization [place] [address] Care Team Providers Care Lime Kiln Operator Name Role Phone Hank Oshea MD Primary Care Provider [phone] Reason for Visit * Reason Comments Follow Up Encounter Details Date Type Department Care Team Description 04/17/2022 Office Visit Cardiology, [facility] [address] [place] [address] Wilmar Lay PA-Nettie [address] [place] [address] Coronary artery disease of [place] artery of [place] heart with stable angina pectoris (HCC)*; Heart failure, systolic, due to CAD (HCC); Ischemic cardiomyopathy; AICD (automatic cardioverter/defibrill ator) present; Chronic atrial fibrillation (HCC); Acquired hypothyroidism; Dyslipidemia, goal LDL below 70; Hypomagnesemia Allergies No known active allergiesdocumented as of this encounter (statuses as of 04/18/2022) Medications Medication Sig Dispensed Refills Start Date End Date Status VITAMIN D 2000 UNITS PO TABS one tablet daily 0 Active nitroglycerin (NITROSTAT) 0.4 MG SUBLIndications:Co ronary artery disease involving [place] coronary artery of [place] heart without angina pectoris,Myocardia l infarction involving [...] Oral Tablet (Lanoxin)Indicatio ns:Coronary artery disease involving [place] coronary artery of [place] heart without angina pectoris,Chronic atrial fibrillation [...] (automatic cardioverter/defib rillator) present,Coronary artery disease of [place] artery of [place] heart with stable angina pectoris (HCC) Take [...] as of this encounter (statuses as of 04/18/2022) Active Problems Problem Noted Date AICD (automatic cardioverter/defibrillat or) present 02/10/2013 Heart failure, systolic, due to CAD 06/2013 Ischemic cardiomyopathy 01/06/2013 Atrial fibrillation 01/06/2013 CAD (coronary artery disease) 07/25/2012 MS (myocardial infarction) 07/25/2012 documented as of this encounter (statuses as of 04/18/2022) Immunizations Name Administration Dates Next Due COVID-19 [...] ICD generator exchange by Dr. Davidson at [facility] Notes plans to go to [facility] today for the flounder. notes that he [...] Diagnosis Code CAD (coronary artery disease) I25.10 MS (myocardial infarction) ([facility]) I21.9 Heart failure, systolic, due to CAD ([facility]) I50.20, I25.10 Ischemic cardiomyopathy I25.5 Atrial fibrillation ([facility]) I48.91 AICD (automatic cardioverter/defibrillator) present [...] Encounters Date Type Specialty Care Team Description 05/01/2022 Anticoagulation Pharmacy Pharmacist1, [facility] [address] [facility] [place] [address] 05/20/2022 Cardiac Studies Cardiology [facility] 132 [facility] [place] [address] 07/21/2022 Office Visit Cardiology Wilmar Lay PA-C 132 [facility] [place] [address] 09/02/2022 Cardiac Studies Cardiology [facility] 132 [facility] [place] [address] 10/15/2022 Pharmacy Physicians Assistant, Pharmacy Reimbursement [address] [place], [place] [id number] 12/14/2022 Cardiac Studies Cardiology [facility] 132 [facility] [place] [address] 01/07/2023 Office Visit Cardiology Denis Langston MD 132 [facility] [place] [address] 03/25/2023 Cardiac Studies Cardiology [facility] 132 [facility] [place] [address] Scheduled Orders Name Type Priority Associated Diagnoses Orde r Schedule LDL CHOLESTEROL (DIRECT MEASURE) Lab Routine Dyslipidemia, goal LDL below 70 Ordered: 04/17/2022 COMPREHENSIVE METABOLIC PANEL Lab Routine Chronic atrial fibrillation (HCC) Dyslipidemia, goal LDL below 70 Ordered: 04/17/2022 MAGNESIUM Lab Routine Hypomagnesemia Ordered: 04/17/2022 DIGOXIN LEVEL Lab Routine Heart failure, systolic, due to CAD (HCC) Chronic atrial fibrillation (HCC) Ordered: 04/17/2022 TSH Lab Routine Acquired hypothyroidism Ordered: 04/17/2022 Health Maintenance Due Date Last Done Comments Pneumococcal Vaccine: 65+ Years (1 - PCV) 1940 Depression Screening, Annual for Pts 12 and Over 1946 Zoster Vaccines (1 of 2) 1984 Influenza Vaccine (FLU shot) (Season Ended) 2022 [...] Visit Diagnoses Diagnosis Coronary artery disease of [place] artery of [place] heart with stable angina pectoris (HCC)- Primary [...] Documents on File Type Date Recorded Patient Record Changer Expl anation Advanced Directive Advanced Directive Advanced [...] Advanced Directive 01/26/2013 11:57 AM Care Teams Lime Kiln Operator Relationship Specialty Start Date End Date Hank Oshea MD [address] [place] [address] PCP - General Internal Medicine 08/13/14 documented as of this encounter"
--- OUTSIDE RECORDS SUMMARY | 2023-09-08 00:41 | External Medical Summary | Summary of Care ---
Author Name Unknown Organization [place] [address] Care Team Providers Care Arranger Assembler Name Role Phone Hank Oshea MD Primary Care Provider [phone] Reason for Visit * Reason Comments Dosage Adjustment In Person (Anticoag Cl inic) Encounter Details Date Type Department Care Team Description 04/03/2022 Anticoagulation Pharmacy, [facility] 200 [facility] [place] [address] Pharmacist1, [facility] 200 [place] [address] Myocardial infarction, unspecified [place] type, unspecified artery (HCC)*; Atrial fibrillation, unspecified type (HCC); Anticoagulation management encounter; occupational work experience teacher 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 therapy Allergies No known active allergiesdocumented as of this encounter (statuses as of 04/03/2022) Medications Medication Sig Dispensed Refills Start Date End Date Status VITAMIN D 2000 UNITS PO TABS one tablet daily 0 Activ e nitroglycerin (NITROSTAT) 0.4 MG SUBLIndications:Cor onary artery disease involving enterprise coronary artery of enterprise heart without angina pectoris,Myocardial infarction involving other [...] mcg by mouth daily. 3 07/30/2019 Active Rosuvastatin Calcium 5 MG Oral Tablet (Crestor)Indication s:Heart failure, systolic, due to CAD (HCC),Ischemic cardiomyopathy,AICD (automatic cardioverter/defibr illator) present,CAD (coronary artery disease) TAKE 1 TABLET BY MOUTH EVERY OTHER DAY 45 Tab 4 03/24/2021 Active Additional Information Patient taking differently: (No instructions reported), Reported on 01/13/2022 Digoxin 125 MCG Oral Tablet (Lanoxin)Indication s:Coronary artery disease involving enterprise coronary artery of enterprise heart without angina pectoris,Chronic atrial fibrillation (HCC) [...] twice daily 180 Tablet 3 04/01/2022 Active documented as of this encounter (statuses as of 04/03/2022) Active Problems Problem Noted Date AICD (automatic cardioverter/defibrillat or) present 02/10/2013 Heart failure, systolic, due to CAD 06/2013 Ischemic cardiomyopathy 01/06/2013 Atrial fibrillation 01/06/2013 CAD (coronary artery disease) 07/25/2012 TN (myocardial infarction) 07/25/2012 documented as of this encounter (statuses as of 04/03/2022) Immunizations Name Administration Dates Next Due COVID-19 [...] Progress Notes * Anibal Raymundo RPh - 04/03/2022 10:54 AM EDT Images from the original note were not included. Medication Therapy Disease Management - Anticoagulation Lucian Larson Jr. 1935 Patient Findings Negatives: Signs/symptoms of thrombosis, Signs/symptoms of bleeding, Change in health, Change in alcohol use, Change in activity, Upcoming invasive procedure, Missed doses, Extra doses, Change in medications, Change in diet/appetite, Bruising INR Result As of 04/03/2022 INR goal: 2.0-3.0 INR used for dosin.8 (04/03/2022) Warfarin Plan As of 04/03/2022 Full warfarin instructions: 04/03: 5 mg; Otherwise 2.5 mg every Mon, Wed, Fri; 5 mg all other days Next INR check: 05/01/2022 Repeat PT/INR in 4 week(s) Weekly dose: not changed Anibal Caceres RPh, CACP, CDE Clinical Pharmacist [facility] 04/03/2022 11:00 AM documented in this encounter Plan of Treatment Upcoming Encounters Date Type Specialty Care Team Description 04/17/2022 Office Visit Cardiology Wilmar Lay PA-C 132 [facility] [place] [address] 05/01/2022 Anticoagulation Pharmacy Pharmacist1, [facility] 200 [facility] [address] 05/20/2022 Cardiac Studies Cardiology [facility] 132 [facility] [place] [address] 09/02/2022 Cardiac Studies Cardiology [facility] 132 [facility] [place] [address] 10/15/2022 Pharmacy Didactic Program In Dietetics Director, Pharmacy Reimbursement [address] [place] [address] 12/14/2022 Cardiac Studies Cardiology [facility] 132 [facility] [place] [address] 03/25/2023 Cardiac Studies Cardiology [facility] 132 [facility] [address] Health Maintenance Due Date Last Done Comments Pneumococcal Vaccine: 65+ Years (1 - PCV) 1940 Depression Screening, Annual for Pts 12 and Over 1946 Zoster Vaccines (1 of 2) 1984 COVID-19 Vaccine (3 - Booster for Moderna [...] Comments INR FINGERSTICK, POINT OF CARE STAT 04/03/2022 10:57 AM EDT Atrial fibrillation, unspecified type (HCC) Myocardial infarction, unspecified TN type, unspecified artery (HCC) Anticoagulation management encounter occupational work experience teacher 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 therapy documented in this encounter Results * INR FINGERSTICK, POINT OF CARE (04/03/2022 10:57 AM EDT) Fingerstick INR 1.8 INR [facility] 56-02 Specimen Blood Narrative [facility] 56- - 04/03/2022 10:59 AM EDT Therapeutic ranges for non-operative patients: Prophylaxsis/treatment of DVT: (Range:2.0-3.0) Treatment of pulmonary embolism:(Range:2.0-3.0) Prevention of systemic embolism from: -tissue heart valves -acute myocardial infarction -valvular heart disease -atrial fibrillation (Range: 2.0-3.0) Mechanical prosthetic valves: (Range: 2.5-3.5) Performing Organization Address City/State/[facility] Co de Phone Number [facility] [place] [address] [place] [address] documented in this encounter Visit Diagnoses Diagnosis Myocardial infarction, unspecified TN type, unspecified artery (HCC)- Primary Atrial fibrillation, unspecified type (HCC) Anticoagulation management encounter Encounter for therapeutic drug monitoring detention 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 therapy documented in this encounter Advance Directives Documents on File Type Date Recorded Patient Dye Range Operator Cloth Expl anation Advanced Directive Advanced Directive Advanced [...] Advanced Directive 01/26/2013 11:57 AM Care Teams Arranger Assembler Relationship Specialty Start Date End Date Hank Oshea MD [address] [address] PCP - General Internal Medicine 08/13/14 documented as of this encounter
--- OUTSIDE RECORDS SUMMARY | 2023-09-08 00:41 | External Medical Summary ---
Author Name Unknown Address Unknown Organization K09:[facility]- [address] [place] [address] Laboratory Report Ordering Provider Test Date Status ROXANA MAYA 06/12/2022 11:41:15 Final Observation Date Value Abnormality Reference (Units ) Status BUN 06/12/2022 11:41:15 26 Above high normal 6-20 (mg/dL) Final Creatinine 06/12/2022 11:41:15 1.3 Above high normal 0.6-1.2 (mg/dL) Final Glomerular filtration rate/1.73 sq M.predicted [Volume Rate/Area] in Serum, Plasma or Blood by Creatinine-based formula (CKD-EPI) 06/12/2022 11:41:15 53 Below low normal >=60 (mL/min) Final eGFR is calculated based on the CKD-EPI 2020 equation Sodium 06/12/2022 11:41:15 140 135-146 (m mol/L) Final Potassium 06/12/2022 11:41:15 4.9 3.5-5.1 (m mol/L) Final Cl 06/12/2022 11:41:15 101 98-107 (mm ol/L) Final CO2 06/12/2022 11:41:15 26 22-32 (mmo l/L) Final Anion gap 06/12/2022 11:41:15 13 7-15 (mmol /L) Final Glucose 06/12/2022 11:41:15 82 70-120 (mg /dL) Final Albumin 06/12/2022 11:41:15 4.3 3.8-5.0 (g /dL) Final AST (Aspartate aminotransferase) 06/12/2022 11:41:15 20 10-50 (U/L) Final Alk Phos 06/12/2022 11:41:15 108 35-130 (U/ L) Final Bilirubin, Total 06/12/2022 11:41:15 0.9 <=1 .2 (mg/dL) Final Calcium 06/12/2022 11:41:15 9.7 8.4-10.2 ( mg/dL) Final Protein 06/12/2022 11:41:15 7.1 6.0-8.3 (g /dL) Final ALT (Alanine aminotransferase) 06/12/2022 11:41:15 13 10-50 (U/L) Final Performing Location [facility]- 76 [address] [place] [address]
--- OUTSIDE RECORDS SUMMARY | 2023-09-08 00:41 | External Medical Summary | Summary of Care ---
Author Name Unknown Organization [place] [address] Care Team Providers Care Dumping Machine Operator Name Role Phone Hank Oshea MD Primary Care Provider [phone] Reason for Visit * Reason Comments Dosage Adjustment In Person (Anticoag Cl inic) Encounter Details Date Type Department Care Team Description 05/01/2022 Anticoagulation Pharmacy, [facility] 200 [facility] [place] [address] Pharmacist1, [facility] 200 [facility] [place] [address] Type 2 myocardial infarction (HCC)*; Longstanding persistent atrial fibrillation (HCC); Atrial fibrillation, unspecified type (HCC); Myocardial infarction, unspecified [place] type, unspecified artery (HCC); Anticoagulation management encounter; [facility] 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 therapy Allergies No known active allergiesdocumented as of this encounter (statuses as of 05/01/2022) Medications Medication Sig Dispensed Refills Start Date End Date Status VITAMIN D 2000 UNITS PO TABS one tablet daily 0 Active nitroglycerin (NITROSTAT) 0.4 MG SUBLIndications:Coron richardson artery disease involving [place] coronary artery of [place] heart without angina pectoris,Myocardial infarction involving other [...] Oral Tablet (Lanoxin)Indications: Coronary artery disease involving [place] coronary artery of [place] heart without angina pectoris,Chronic atrial fibrillation (HCC) [...] (automatic cardioverter/defibril lator) present,Coronary artery disease of [place] artery of [place] heart with stable angina pectoris (HCC) Take 1 tablet on Mon, Wed, and Fri 45 Tablet 3 04/17/2022 Active documented as of this encounter (statuses as of 05/01/2022) Active Problems Problem Noted Date AICD (automatic cardioverter/defibrillat or) present 02/10/2013 Heart failure, systolic, due to CAD 06/2013 Ischemic cardiomyopathy 01/06/2013 Atrial fibrillation 01/06/2013 CAD (coronary artery disease) 07/25/2012 SC (myocardial infarction) 07/25/2012 documented as of this encounter (statuses as of 05/01/2022) Immunizations Name Administration Dates Next Due COVID-19 [...] Progress Notes * Anibal Raymundo RPh - 05/01/2022 11:39 AM EDT Medication Therapy Disease Management - Anticoagulation Lucian Larson Jr. 1935 Patient Findings Negatives: Signs/symptoms of thrombosis, Signs/symptoms of bleeding, Change in health, Change in alcohol use, Change in activity, Upcoming invasive procedure, Missed doses, Extra doses, Change in medications, Change in diet/appetite, Bruising INR Result As of 05/01/2022 INR goal: 2.0-3.0 INR used for dosin.3 (05/01/2022) Warfarin Plan As of 05/01/2022 Full warfarin instructions: 2.5 mg every Mon, Wed, Fri; 5 mg all other days No change documented: Anibal Raymundo RPh Next INR check: 06/12/2022 Repeat PT/INR in 6 week(s) Weekly dose: not changed Anibal Caceres RPh, CACP, CDE Clinical Pharmacist [facility] 05/01/2022 11:47 AM documented in this encounter Plan of Treatment Upcoming Encounters Date Type Specialty Care Team Description 05/20/2022 Cardiac Studies Cardiology [facility] [address] [place] [address] 06/12/2022 Anticoagulation Pharmacy Pharmacist2, [facility] 200 [place] [address] 07/21/2022 Office Visit Cardiology Wilmar Lay PALashawnC 132 [facility] [place] [address] 09/02/2022 Cardiac Studies Cardiology [facility] 132 [facility] [place] [address] 10/15/2022 Pharmacy Waiter/Waitress Cocktail Lounge, Pharmacy Reimbursement [address] [place], [place] [phone] 12/14/2022 Cardiac Studies Cardiology [facility] 132 [facility] [place] [address] 01/07/2023 Office Visit Cardiology Denis Langston MD 132 [facility] [place] [address] 03/25/2023 Cardiac Studies Cardiology [facility] 132 [facility] [place] [address] Health Maintenance Due Date Last Done Comments [...] Comments INR FINGERSTICK, POINT OF CARE STAT 05/01/2022 11:44 AM EDT Atrial fibrillation, unspecified type (HCC) Myocardial infarction, unspecified SC type, unspecified artery (HCC) Anticoagulation management encounter [facility] 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 therapy documented in this encounter Results * INR FINGERSTICK, POINT OF CARE (05/01/2022 11:44 AM EDT) Fingerstick INR 2.3 [facility]R [facility] Specimen Blood Narrative [facility] 56- - 05/01/2022 11:50 AM EDT Therapeutic ranges for non-operative patients: Prophylaxsis/treatment of DVT: (Range:2.0-3.0) Treatment of pulmonary embolism:(Range:2.0-3.0) Prevention of systemic embolism from: -tissue heart valves -acute myocardial infarction -valvular heart disease -atrial fibrillation (Range: 2.0-3.0) Mechanical prosthetic valves: (Range: 2.5-3.5) [facility] [address]- [address] [place], [place] [phone] documented in this encounter Visit Diagnoses Diagnosis Myocardial infarction, unspecified SC type, unspecified artery (HCC) Longstanding persistent atrial fibrillation (HCC) Atrial fibrillation, unspecified type (HCC) Anticoagulation management encounter Encounter for therapeutic drug monitoring [facility] 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 therapy documented in this encounter Advance Directives Documents on File Type Date Recorded Patient Scratcher Expl anation Advanced Directive Advanced Directive Advanced [...] Advanced Directive 01/26/2013 11:57 AM Care Teams Dumping Machine Operator Relationship Specialty Start Date End Date Hank Oshea MD [address] [address] PCP - General Internal Medicine 08/13/14 documented as of this encounter
--- OUTSIDE RECORDS SUMMARY | 2023-09-08 00:41 | External Medical Summary | Summary of Care ---
Author Name Unknown Organization [place] [address] Care Team Providers Care Sandblast Or Shotblast Equipment Tender Name Role Phone Hank Oshea MD Primary Care Provider Reason for Visit * Reason Comments Dosage Adjustment In Person (Anticoag Cl inic) Encounter Details Date Type Department Care Team Description 02/19/2022 Anticoagulation Pharmacy, [facility] [address] [place] [address] Pharmacist1, [facility] [address] [place] [address] ST elevation myocardial infarction involving left main coronary artery (HCC)*; Paroxysmal atrial fibrillation (HCC); Atrial fibrillation, unspecified type (HCC); Myocardial infarction, unspecified ND type, unspecified artery (HCC); Anticoagulation management encounter; oil heaterman 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 therapy Allergies No known active allergiesdocumented as of this encounter (statuses as of 02/19/2022) Medications Medication Sig Dispensed Refills Start Date End Date Status VITAMIN D 2000 UNITS PO TABS one tablet daily 0 Activ e nitroglycerin (NITROSTAT) 0.4 MG SUBLIndications:Cor onary artery disease involving yocha dehe coronary artery of yocha dehe heart without angina pectoris,Myocardial infarction involving other [...] Oral Tablet (Lanoxin)Indication s:Coronary artery disease involving yocha dehe coronary artery of yocha dehe heart without angina pectoris,Chronic atrial fibrillation (HCC) [...] as of this encounter (statuses as of 02/19/2022) Active Problems Problem Noted Date AICD (automatic cardioverter/defibrillat or) present 02/10/2013 Heart failure, systolic, due to CAD 06/2013 Ischemic cardiomyopathy 01/06/2013 Atrial fibrillation 01/06/2013 CAD (coronary artery disease) 07/25/2012 ND (myocardial infarction) 07/25/2012 documented as of this encounter (statuses as of 02/19/2022) Immunizations Name Administration Dates Next Due COVID-19 [...] as of this encounter Progress Notes * Ellen Gutierrez, [facility] - 02/19/2022 1:06 PM EDT Images from the original note were not included. Medication Therapy Disease Management - Anticoagulation Patient: Lucian Rodolfo Larson Jr. : 1935 Current Warfarin Dose As of 02/19/2022 Warfarin maintenance plan: 2.5 mg (5 mg x 0.5) every Mon, Fri; 5 mg (5 mg x 1) all other days Patient-Reported Symptoms: Patient Findings Negatives: Signs/symptoms of thrombosis, Signs/symptoms of bleeding, Change in health, Change in alcohol use, Change in activity, Upcoming invasive procedure, Missed doses, Extra doses, Change in medications, Change in diet/appetite, Bruising INR Result As of 02/19/2022 INR goal: 2.0-3.0 INR used for dosin.8 (02/19/2022) Warfarin Plan As of 02/19/2022 Full warfarin instructions: 02/19: Hold; Otherwise 2.5 mg every Mon, Wed, Wed; 5 mg all other days Next INR check: 03/06/2022 Additional Dosing Information: Repeat PT/INR in 2 week(s) Weekly dose: decreased Ellen Gutierrez RPh Clinical Pharmacist 02/19/2022, 1:06 PM documented in this encounter Plan of Treatment Upcoming Encounters Date Type Specialty Care Team Description 03/06/2022 Anticoagulation Pharmacy Pharmacist1, [facility] [address] [place] [address] 04/17/2022 Office Visit Cardiology Wilmar Lay PA-C [address] [facility] [place] [address] 05/20/2022 Cardiac Studies Cardiology [facility] [address] 09/02/2022 Cardiac Studies Cardiology [facility] [address] [facility] [address] 10/15/2022 Pharmacy Straw Hat Washer Operator, Pharmacy Reimbursement [address] [place], [place] [id number] 12/14/2022 Cardiac Studies Cardiology [facility] [address] [facility] [address] 03/25/2023 Cardiac Studies Cardiology [facility] [address] [facility] [address] Health Maintenance Due Date Last Done Comments [...] Comments INR FINGERSTICK, POINT OF CARE STAT 02/19/2022 1:18 PM EDT Atrial fibrillation, unspecified type (HCC) Myocardial infarction, unspecified ND type, unspecified artery (HCC) Anticoagulation management encounter oil heaterman 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 therapy documented in this encounter Results * INR FINGERSTICK, POINT OF CARE (02/19/2022 1:18 PM EDT) Fingerstick INR 4.8 INR [facility]02 Specimen Blood Narrative [facility] 56- - 02/19/2022 1:25 PM EDT Therapeutic ranges for non-operative patients: Prophylaxsis/treatment of DVT: (Range:2.0-3.0) Treatment of pulmonary embolism:(Range:2.0-3.0) Prevention of systemic embolism from: -tissue heart valves -acute myocardial infarction -valvular heart disease -atrial fibrillation (Range: 2.0-3.0) Mechanical prosthetic valves: (Range: 2.5-3.5) [facility] [place] [address] [place] [address] documented in this encounter Visit Diagnoses Diagnosis Myocardial infarction, unspecified ND type, unspecified artery (HCC) Paroxysmal atrial fibrillation (HCC) Atrial fibrillation Atrial fibrillation, unspecified type (HCC) Anticoagulation management encounter Encounter for therapeutic drug monitoring oil heaterman 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 therapy documented in this encounter Advance Directives Documents on File Type Date Recorded Patient Impregnating Machine Operator Expl anation Advanced Directive Advanced Directive Advanced [...] Advanced Directive 01/26/2013 11:57 AM Care Teams Sandblast Or Shotblast Equipment Tender Relationship Specialty Start Date End Date Hank Oshea MD [address] [address] PCP - General Internal Medicine 08/13/14 documented as of this encounter
--- OUTSIDE RECORDS SUMMARY | 2023-09-08 00:41 | External Medical Summary ---
Author Name Unknown Address Unknown Organization K09:[facility] [place] [address] Laboratory Report Ordering Provider Test Date Status SHANIA MEYER 05/01/2022 11:44:27 Final Therapeutic ranges for non-o perative patients:
Prophylaxsis/treatment of DVT: (Range:2.0-3.0)
Treatment of pulmonary embolism:(Range:2.0-3.0)
Prevention of systemic embolism from:
-tissue heart valves
-acute myocardial infarction
-valvular heart disease
-atrial fibrillation
(Range: 2.0-3.0)
Mechanical prosthetic valves: (Range: 2.5-3.5) Observation Date Value Abnormality Reference (Units ) Status INR in Capillary blood by Coagulation assay 05/01/2022 11:44:27 2.3 (INR) Final Performing Location [facility] [place] [address]
--- OUTSIDE RECORDS SUMMARY | 2023-09-08 00:41 | External Medical Summary | Summary of Care ---
Author Name Unknown Organization [place] [address] Care Team Providers Care Livestock Agent Name Role Phone Hank Oshea MD Primary Care Provider [phone] Reason for Visit * Reason Comments eRx-Medication Refill Encounter Details Date Type Department Care Team Description 03/30/2022 Refill Cardiology, 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 25 Tab 11 6 Active Coenzyme Q10 (COQ10) 200 MG CAPS Take 1 Cap by mouth daily. 0 Active Cetirizine HCl (ZYRTEC ALLERGY) 10 MG Capsule Take 10 mg by mouth daily. 0 Active levothyroxine (LEVOXYL) 50 MCG Tablet Take 75 mcg by mouth daily. 3 9 Active Rosuvastatin Calcium 5 MG Oral Tablet (Crestor)Indicati ons:Heart failure, systolic, due to CAD (HCC),Ischemic cardiomyopathy,AI CD (automatic cardioverter/defi brillator) present,CAD (coronary artery disease) TAKE 1 TABLET BY MOUTH EVERY OTHER DAY 45 Tab 4 1 Active Additional Information Patient taking differently: (No instructions reported), Reported on 01/13/2022 Digoxin 125 MCG Oral Tablet (Lanoxin)Indicati ons:Coronary artery disease involving apache coronary artery of apache heart without angina pectoris,Chronic atrial fibrillation (HCC) TAKE 1 TABLET BY MOUTH ON WEDNESDAY, WEDNESDAY AND WEDNESDAY. 28 Tab 11 1 Active Clopidogrel Bisulfate 75 MG Oral Tablet (pLAVix)Indicatio ns:Permanent atrial fibrillation (HCC) Take 1 Tablet by mouth daily. 90 Tablet 3 1 Active Entresto 24-26 MG Oral Tablet (sacubitril-valsa rtan 24-26 mg per tab)Indications:I schemic cardiomyopathy,He art failure, systolic, due to CAD (HCC) Take 1/2 tab each am and pm 90 Tablet 3 1 Active Furosemide 20 MG Oral Tablet (Lasix) Take by mouth 3 Tablets in the morning. 270 Tablet 3 2 Active Warfarin Sodium 5 MG Oral Tablet (Coumadin)Indicat ions:Atrial fibrillation (HCC) TAKE 1/2 TAB MON, WED, WED (2.5mg) AND ONE TAB (5MG) ALL OTHER DAYS 70 Tablet 3 2 Active Metoprolol Succinate ER 50 MG Oral Tablet Extended Release 24 Hour (toPROL XL)Indications:At rial fibrillation, unspecified type (HCC) Take 1 tablet by mouth twice daily 180 Tablet 3 2 Active Metoprolol Succinate ER 50 MG Oral Tablet Extended Release 24 Hour (toPROL XL)Indications:At rial fibrillation, unspecified type (HCC) Take 1 tablet by mouth twice daily 182 Tab 3 1 04/01/20 22 Discontinued documented as of this encounter (statuses as of 04/01/2022) Active Problems Problem Noted Date AICD (automatic cardioverter/defibrillat or) present 02/10/2013 Heart failure, systolic, due to CAD 06/2013 Ischemic cardiomyopathy 01/06/2013 Atrial fibrillation 01/06/2013 CAD (coronary artery disease) 07/25/2012 [place] (myocardial infarction) 07/25/2012 documented as of this encounter (statuses as of 04/01/2022) Immunizations Name Administration Dates Next Due COVID-19 [...] Telephone Encounter - Zulma Lay PA-C - 04/01/2022 1:57 PM EDT Signed Prescriptions: Disp Refills Metoprolol Succinate ER 50 MG Oral Tablet *180 Ta*3 Sig: Take 1 tablet by mouth twice daily Authorizing Provider: ZULMA LAY * Telephone Encounter - Beatrice Samuels LPN - 04/01/2022 1:50 PM EDT Pending Prescriptions: Disp Refills Metoprolol Succinate ER 50 MG Oral Tablet*180 Ta*3 Sig: Take 1 tablet by mouth twice daily * Telephone Encounter - Beatrice Samuels LPN - 04/01/2022 1:49 PM EDT Pending Prescriptions: Disp Refills Metoprolol Succinate ER 50 MG Oral Tablet *180 Ta*3 Sig: Take 1 tablet by mouth twice daily * Telephone Encounter - Herlinda Palmer CPhT - 04/01/2022 10:07 AM EDT Did you pend patient's preferred pharmacy and medication before forwarding?yes Pending Prescriptions: Disp Refills Metoprolol Succinate ER 50 MG Oral Tablet*8 Tabl*0 Sig: Take 1 tablet by mouth twice daily Last Visit: 01/13/2022 (in office), Visit date not found (telemedicine) Next Visit: 04/17/2022 If no future appointments scheduled, and last appointment is greater than a year ago, please schedule patient for a follow-up appointment Last date the medication was ordered: 03.21.21 Pharmacy: [facility] [address] [place] [address] [address] Is this request for a controlled substance?No Urine Drug Screen:No results found for this or any previous visit. Patient Phone Numbers Labs: Lab Results Component Value Date/Time CREAT 1.4 (H) 01/27/2022 09:36 AM CREAT 1.4 (H) 07/23/2020 11:28 AM POTASSIUM 4.4 01/27/2022 09:36 AM POTASSIUM 4.4 07/23/2020 11:28 AM TSH 3.11 10/06/2021 02:17 PM TSH 4.50 (H) 07/23/2020 11:28 AM LDLCALC 67 02/07/2021 11:35 AM LDLCALC 68 01/11/2018 11:41 AM LDLDIRECT 72 05/24/2019 01:32 PM ALT 14 01/27/2022 09:36 AM ALT 20 07/23/2020 11:28 AM HGBA1C 5.4 06/30/2016 10:59 AM documented in this encounter Plan of Treatment Upcoming Encounters Date Type Specialty Care Team Description 04/03/2022 Anticoagulation Pharmacy Pharmacist1, [facility] [address] [place] [address] 04/17/2022 Office Visit Cardiology Zulma Lay PA-C 132 [facility] [place] [address] 05/20/2022 Cardiac Studies Cardiology Marcelino [facility] 132 [facility] [place] [address] 09/02/2022 Cardiac Studies Cardiology Gigi [facility] [address] 10/15/2022 Pharmacy Sales Vice President, Pharmacy Reimbursement [address] [facility] [place] [id number] 12/14/2022 Cardiac Studies Cardiology Gigi [facility] 132 [facility] [place] [address] 03/25/2023 Cardiac Studies Cardiology Gigi [facility] [address] [facility] [place] [address] Health Maintenance Due Date Last Done Comments [...] Diagnoses Diagnosis Atrial fibrillation, unspecified type (HCC) documented in this encounter Advance Directives Documents on File Type Date Recorded 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
--- OUTSIDE RECORDS SUMMARY | 2023-09-08 00:41 | External Medical Summary ---
Author Name Unknown Address Unknown Organization K09:[facility] [place] [address] Laboratory Report Ordering Provider Test Date Status SHANIA MEYER 04/03/2022 10:57:13 Final Therapeutic ranges for non-o perative patients:
Prophylaxsis/treatment of DVT: (Range:2.0-3.0)
Treatment of pulmonary embolism:(Range:2.0-3.0)
Prevention of systemic embolism from:
-tissue heart valves
-acute myocardial infarction
-valvular heart disease
-atrial fibrillation
(Range: 2.0-3.0)
Mechanical prosthetic valves: (Range: 2.5-3.5) Observation Date Value Abnormality Reference (Units ) Status INR in Capillary blood by Coagulation assay 04/03/2022 10:57:13 1.8 (INR) Final Performing Location [facility] [place] [address]
--- OUTSIDE RECORDS SUMMARY | 2023-09-08 00:42 | External Medical Summary | Summary of Care ---
Author Name Unknown Organization [place] [address] Care Team Providers Care Rest Room Attendant Name Role Phone Hank Oshea MD Primary Care Provider [phone] Reason for Visit * Reason Onset Date Comments Patient Instructions 01/13/2022 Encounter Details Date Type Department Care Team Description 01/13/2022 Telephone Cardiology Giancarlo Patel [address] [place] [address] Cindi Davidson DO [address] [place] [id number] Patient Instructions Allergies No known active allergiesdocumented as of this encounter (statuses as of 01/13/2022) Medications Medication Sig Dispensed Refills Start Date End Date Status VITAMIN D 2000 UNITS PO TABS one tablet daily 0 Activ e nitroglycerin (NITROSTAT) 0.4 MG SUBLIndications:Cor onary artery disease involving venetie ira coronary artery of venetie ira heart without angina pectoris,Myocardial infarction involving other [...] Oral Tablet (Lanoxin)Indication s:Coronary artery disease involving venetie ira coronary artery of venetie ira heart without angina pectoris,Chronic atrial fibrillation (HCC) [...] the morning. 270 Tablet 3 01/01/2022 Active Hospital, Clinic, or Other Facility Administered Medication Ordered Dose Route Frequency Start Date End Date Status perflutren lipid microsphere inj SUSP 1.956 mgIndications:Other ill-defined heart diseases,Ischemic cardiomyopathy 1.956 mg IV ONCE PRN 01/13/2022 01/13/2022 Active documented as of this encounter (statuses as of 01/13/2022) Active Problems Problem Noted Date AICD (automatic cardioverter/defibrillat or) present 02/10/2013 Heart failure, systolic, due to CAD 06/2013 Ischemic cardiomyopathy 01/06/2013 Atrial fibrillation 01/06/2013 CAD (coronary artery disease) 07/25/2012 [place] (myocardial infarction) 07/25/2012 documented as of this encounter (statuses as of 01/13/2022) Immunizations Name Administration Dates Next Due COVID-19 [...] encounter Miscellaneous Notes * Telephone Encounter - DIANNA Stark - 01/13/2022 1:33 PM EDT Device Instructions Procedure Date: 01/28/22 Time: 10 am Location: [facility] Main Entrance- Outpatient Registration [address] [place] [address] Patient/Family member was notified via phone/written instructions given at office visit. Nothing to eat or drink after midnight, You may have clear liquids 4 hours prior to procedure No caffeine 24 hours prior to procedure Arrive at [facility] at 9 am in the Medical Treatment Unit/Same Day Surgery Desk and check in at the registration desk. Arrive at the time given to you by the PAT dept and check in at the registration desk. Meds to hold AM of procedure include- Lasix (furosemide) and any over the counter vitamins, Fish oil and/or Vit E. Pt may take all other medications regularly scheduled that morning including aspirin and Plavix. Additional labs or testing needed: due by 01/20/22 Have INR (warfarin/coumadin lab work) drawn 01/26 at [facility] Bring all of your medications with you in their original containers. Use Chlorhexidine wipes after shower the evening prior to the procedure. Follow instructions onthe wipes. DO NOT BATH/SHOWER the morning of the procedure. You may remain at [facility] Overnight for observation. Wound check in [facility] with Clinic Nurse will be scheduled. You will need a COVID screening 4 days prior to the procedure. Call Neema at [phone] ext [phone] with any questions or concerns. documented in this encounter Plan of Treatment Upcoming Encounters Date Type Specialty Care Team Description 01/13/2022 Laboratory Laboratory Woody Morrell [address] [place] [address] Arrived 01/24/2022 Nurse Only Ancillary Petros, Pre Surgical Covid Testing Antonella [address] [place] [address] 01/29/2022 Anticoagulation Pharmacy Pharmacist1, [facility] [address] [facility] [address] 02/05/2022 Cardiac Studies Cardiology Isi Yu [facility] Antonella Morrell [address] [place] [address] 02/16/2022 Cardiac Studies Cardiology Isi Yu [facility] Antonella Morrell [address] [place] [address] 03/18/2022 Cardiac Studies Cardiology Isi Yu [facility] Antonella Morrell [address] [place] [address] 04/17/2022 Office Visit Cardiology Wilmar Lay PA-C [address] [place] [address] 04/20/2022 Cardiac Studies Cardiology [facility] 132 [facility] [place] [address] 05/20/2022 Cardiac Studies Cardiology [facility] 132 [facility] [place], [place] [address] 06/22/2022 Cardiac Studies [facility]iology [facility] [place] [address] 08/04/2022 Cardiac Studies Cardiology [facility] [place] [address] 10/15/2022 Pharmacy Design Cell Engineer, Pharmacy Reimbursement [address] [place], [place] [phone] Health Maintenance Due Date Last Done Comments Depression Screening, Annual for Pts 12 and Over 1947 Zoster Vaccines (1 of 2) 1984 Pneumococcal Vaccine: 65+ Years (1 of 1 - PPSV23) 1999 COVID-19 Vaccine (3 - Booster for Moderna series) 06/23/2021 01/21/2021, 12/24/2020 Influenza Vaccine (FLU shot) (#1) 2021 07/29/2017, 08/08/2012 DIG LEVEL FOR MEDICATION MONITORING YEARLY 10/06/2022 10/06/2021, 03/14/2020, 05/24/2019, Additional history exists TSH FOR THYROID MEDICATION MONITORING YEARLY 10/06/2022 10/06/2021, 03/21/2021, 02/07/2021, Additional history exists DIABETES SCREEN EVERY 3 YRS-AGE 45 AND ABOVE 01/01/2025 01/01/2022, 10/20/2021, 10/06/2021, Additional history exists DTaP,Tdap,and Td Vaccines [...] Documents on File Type Date Recorded 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
--- OUTSIDE RECORDS SUMMARY | 2023-09-08 00:42 | External Medical Summary | Summary of Care ---
Author Name Unknown Organization [place] [address] Care Team Providers Care Consulting Analyst Name Role Phone Hank Oshea MD Primary Care Provider [phone] Reason for Visit * Reason Comments Consultation Encounter Details Date Type Department Care Team Description 01/13/2022 Office Visit Cardiology, [facility] [address] [facility] [place] [id number] Cindi Davidson, [address] [facility] [place] [id number] ICD (implantable cardioverter-defibrilla tor) battery depletion*; Bradycardia; Ischemic cardiomyopathy; Chronic atrial fibrillation (HCC); 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; Heart failure, systolic, due to CAD (HCC); Pre-operative cardiovascular examination Allergies No known active allergiesdocumented as of this encounter (statuses as of 01/28/2022) Medications Medication Sig Dispensed Refills Start Date End Date Status VITAMIN D 2000 UNITS PO TABS one tablet daily 0 Activ e nitroglycerin (NITROSTAT) 0.4 MG SUBLIndications:C oronary artery disease involving nondalton coronary artery of 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 pectoris,Myocardi al infarction involving [...] 01/13/2022 Warfarin Sodium 5 MG Oral Tablet (Coumadin)Indicat ions:Atrial fibrillation (HCC) TAKE TWO TABS (10MG) BY MOUTH ON WEDNESDAY AND ONE TAB (5MG) ALL OTHER DAYS 40 Tab 11 05/12/2021 Active Additional Information Patient taking differently: 5 mg Oral DAILY, (No instructions reported), Reported on 10/06/2021 Digoxin 125 MCG Oral Tablet (Lanoxin)Indicati ons: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 270 Tablet 3 01/01/2022 Active Doxycycline Hyclate 100 MG Oral CapsuleIndication s:Community acquired pneumonia of left upper lobe of lung Take 1 Capsule by mouth 2 times a day. 20 Capsule 0 10/21/2021 2 Discontinue d(Medicatio n List Clean Up) Hospital, Clinic, or Other Facility Administered Medication Ordered Dose Route Frequency Start Date End Date Status perflutren lipid microsphere inj SUSP 1.956 mgIndications:Other ill-defined heart diseases,Ischemic cardiomyopathy 1.956 mg IV ONCE PRN 01/13/2022 01/13/2022 Ended documented as of this encounter (statuses as of 01/28/2022) Active Problems Problem Noted Date AICD (automatic cardioverter/defibrillat or) present 02/10/2013 Heart failure, systolic, due to CAD 06/2013 Ischemic cardiomyopathy 01/06/2013 Atrial fibrillation 01/06/2013 CAD (coronary artery disease) 07/25/2012 OR (myocardial infarction) 07/25/2012 documented as of this encounter (statuses as of 01/28/2022) Immunizations Name Administration Dates Next Due COVID-19 [...] Sign Reading Time Taken Comments Blood Pressure 108/62 01/13/2022 12:34 PM EDT Pulse 60 01/13/2022 12:34 PM EDT Temperature - - Respiratory Rate 16 01/13/2022 12:34 PM EDT Oxygen Saturation - - Inhaled Oxygen Concentration - - Weight 81.6 kg (180 lb) 01/13/2022 12:34 PM EDT Height 177.8 cm (5' 10") 01/13/2022 12:34 PM EDT Body Mass Index 25.83 01/13/2022 12:34 PM EDT documented in this encounter Patient Instructions * Patient Instructions* Cindi Davidson DO - 01/13/2022 1:22 PM EDT Lab work Friday 01/26 and COVID test documented in this encounter Progress Notes * Cindi Davidson DO - 01/13/2022 12:54 PM EDT Subjective Lucian Larsno Jr. is a 86 year old male. Chief Complaint Patient presents with Consultation Pt referred to EP due to ICD nearing PANCHO and consideration of upgrade Referring Providers: Wilmar Lay Cardiac Problems; CAD OR in 1994 with PCI to LAD and attempted PCI to RCA in 05/2014 Permanent AF/flutter on digoxin and toprol and coumadin [id number] 4 (age, CAD CHF) ICM EF 20-24% s/p VVI ICD 01/2013 Chronic heart failure with reduced EF, NYHA Class II HPI: HPI Pt presents with his today Pt has had some lightheadedness and dizziness with unsteady balance as falls Pt has been seen by general cardiology a few times in the last month where lasix has had to be titrate up due to possible CHF. His ICD is nearing PANCHO He is ventricular pacing a lot and was referred to EP for possible upgrade to BiV ICD Pt reports SOB and cough but has improved since the increase in lasix PMH: Patient Active Problem List Diagnosis Code CAD (coronary artery disease) I25.10 OR (myocardial infarction) ([facility]) I21.9 Heart failure, systolic, due to CAD ([facility]) I50.20, I25.10 Ischemic cardiomyopathy I25.5 Atrial fibrillation ([facility]) I48.91 AICD (automatic cardioverter/defibrillator) present Z95.810 Current Outpatient Medications Medication Sig Dispense Refill [...] Take 75 mcg by mouth daily. 3 Metoprolol Succinate ER 50 MG Oral Tablet Extended Release 24 Hour (toPROL XL) Take 1 tablet bymouth twice daily 182 Tab 3 Rosuvastatin Calcium 5 MG Oral Tablet (Crestor) TAKE 1 TABLET BY MOUTH EVERY OTHER DAY (Patienttaking differently: ) 45 Tab 4 Warfarin Sodium 5 MG Oral Tablet (Coumadin) TAKE TWO TABS (10MG) BY MOUTH ON WEDNESDAY AND ONE TAB(5MG) ALL OTHER DAYS (Patient taking differently: Take 5 mg by mouth daily.) 40 Tab 11 Digoxin 125 MCG Oral Tablet (Lanoxin) TAKE [...] Tablets in the morning. 270 Tablet 3 Current Facility-Administered Medications Medication Dose Route Frequency Provider Last Rate Last Admin perflutren lipid microsphere inj SUSP 1.956 mg 1.956 mg Intravenous Once PRN Denis Langston MD 1.956 mg at 01/13/22 1217 PMH CAD OR in 1994 with PCI to LAD and attempted PCI to RCA in 05/2014 Permanent AF/flutter on digoxin and toprol and coumadin [id number] 4 (age, CAD CHF) ICM EF 20-24% s/p VVI ICD 01/2013 Chronic heart failure with reduced EF, NYHA Class II Past Surgical History: Procedure Laterality Date INSERT/REPLACE DEFIBRILLATOR W/TRANSVERSE LEAD(S) 02/02/2013 NON-THOR ICD LEADS AND GENERATOR IMPLANT performed by Dre Gonzalez MD at [facility] Review of patient's allergies indicates: No Known Allergies FMH: No SCD Social History Socioeconomic History Marital status: Spouse name: Not on file Number of children: Not on file Years of education: Not on file Highest education level: Not on file Occupational History Not on file Tobacco Use Smoking status: Former Smoker Packs/day: 1.00 Years: 45.00 Pack years: 45.00 Types: Cigarettes, Pipe Quit date: 03/27/1995 Years since quittin.8 Smokeless tobacco: Never Used Substance and Sexual Activity Alcohol use: Yes Comment: occasionally Drug use: No Sexual activity: [...] on file Housing Stability: Not on file Review of Systems Constitutional: Positive for activity change and fatigue. Negative for chills, fever and unexpectedweight change. HENT: Negative for postnasal drip, rhinorrhea and sinus pressure. Eyes: Negative for visual disturbance. Respiratory: Positive for shortness of breath. Cardiovascular: Positive for leg swelling. Negative for chest pain and palpitations. Gastrointestinal: Negative for blood in stool, constipation, diarrhea, nausea and vomiting. Genitourinary: Negative for dysuria and hematuria. Musculoskeletal: Positive for gait problem. Skin: Negative for rash. Neurological: Positive for dizziness, weakness and light-headedness. Negative for syncope. Objective BP 108/62 | Pulse 60 | Resp 16 | Ht 1.778 m (5' 10") | Wt 81.6 kg (180 lb) | BMI 25.83 kg/m | BSA2.01 m Physical Exam Vitals and nursing note reviewed. Constitutional: General: He is awake. Appearance: Normal appearance. He is well-developed. HENT: Head: Normocephalic and atraumatic. Eyes: General: No scleral icterus. Extraocular Movements: Extraocular movements intact. Neck: Vascular: Normal carotid pulses. No carotid bruit or JVD. Cardiovascular: Rate and Rhythm: Regular rhythm. Bradycardia present. Pulses: Carotid pulses are 2+ on the right side and 2+ on the left side. Radial pulses are 2+ on the right side and 2+ on the left side. Posterior tibial pulses are 2+ on the right side and 2+ on the left side. Heart sounds: S1 normal and S2 normal. Murmur heard. Systolic murmur is present with a grade of 2/6. Pulmonary: Effort: Pulmonary effort is normal. Breath sounds: Normal breath sounds. No decreased breath sounds, wheezing, rhonchi or rales. Chest: Comments: Left pectoral region; ICD site no evidence of threatened erosion Abdominal: General: Abdomen is flat. Palpations: Abdomen is soft. Musculoskeletal: Cervical back: Neck supple. Skin: General: Skin is warm and dry. Neurological: General: No focal deficit present. Mental Status: He is alert and oriented to person, place, and time. Psychiatric: Attention and Perception: Attention normal. Mood and Affect: Mood normal. Speech: Speech normal. Behavior: Behavior normal. Behavior is cooperative. Thought Content: Thought content normal. Cognition and Memory: Cognition normal. Judgment: Judgment normal. RESULTS: ECG: Today: [employer] 40bpm With underlying AF/flutter 03/14/2020: ST 103bpm? Based on my review cannot exclude Atrial flutter not ST 1st degree AV block RBBB 05/24/2019: AF 84bpm RBBB LAFB 07/05/2015: [employer]IVER 40bpm 06/07/2014: Atrial flutter 107bpm RBBB ICD Interrogation: 01/12/2022: ICD implanted 02/02/2013 [employer] 91% Battery 2.6V has not flipped to PANCHO yet Echocardiogram: 01/13/2022: The left ventricular cavity size is mildly enlarged. The wall thickness is normal in segments with normal wall motion. The septal motion is abnormal consistent with right ventricular pacemaker. There is severe diffuse LV dysfunction with akinesis of the inferior , anteroseptal and inferoseptal orr and entire apex. The lateral wall contracts most vigorously is mildly hypokinetic The qualitative LV ejection fraction is 20-24% (severely reduced). The left atrium is severely enlarged (>48 ml/m^2,). The aortic valve is mildly calcified. Aortic stenosis is absent. Mild mitral regurgitation is present. Severe tricuspid regurgitation is present. The estimated pulmonary artery systolic pressure is 35-40mm Hg. IV Septum 1.1cm 07/10/2019: The rhythm during the transthoracic echo examination was atrial fibrillation with controlled ventriculr response. The qualitative LV ejection fraction is 20-24% (severely reduced). The anterior septum appears thinned and severely hypokinetic to akinetic. The base and mid inferoseptum appears thinned and akinetic. The base and mid inferior wall is akinetic. The base posterior wall is akinetic. The remaining left ventricular myocardial wall segments are severely hypokinetic. Mild aortic valve sclerosis is present. Mild mitral regurgitation is present. Mild tricuspid regurgitation is present. The estimated pulmonary artery systolic pressure is 36mm Hg. Compared to last available study changes are noted as follows: Moderate left atrial enlargement andmild pulmonary hypertension now present. IV septum 1cm Lab Work Reviewed: Component Latest Ref Rng & Units 02/07/2021 10/06/2021 01/01/2022 BUN 6 - 20 mg/dL 23 (H) 30 (H) Creatinine 0.6 - 1.2 mg/dL 1.3 (H) 1.5 (H) Estimated Glomerular Filtration Rate >=60 mL/min 50 (L) 46 (L) Sodium 135 - 146 mmol/L 141 141 Potassium 3.5 - 5.1 mmol/L 4.9 5.2 (H) Chloride 98 - 107 mmol/L 104 102 CO2 22 - 32 mmol/L 27 29 Anion Gap 7 - 15 mmol/L 10 10 Glucose 70 - 120 mg/dL 121 (H) 81 Albumin 3.8 - 5.0 g/dL 4.1 AST 10 - 50 U/L 22 Alkaline Phosphatase 35 - 130 U/L 109 Bilirubin, Total <=1.2 mg/dL 0.7 Calcium 8.4 - 10.2 mg/dL 9.9 9.9 Protein 6.0 - 8.3 g/dL 6.9 ALT 10 - 50 U/L 15 WBC 4.00 - 10.80 K/uL 6.74 RBC 4.50 - 5.25 M/uL 4.24 (L) HGB 14.0 - 16.8 g/dL 14.0 HCT 40.0 - 48.4 % 41.4 MCV 82.0 - 99.5 fL 97.6 MCH 27.0 - 34.0 pg 33.0 MCHC 32.0 - 36.0 g/dL 33.8 RDW 11.5 - 15.5 % 14.3 PLT 140 - 400 K/uL 173 MPV 6.6 - 11.1 fL 10.1 Triglycerides <=174 mg/dL 90 Cholesterol <200 mg/dL 137 HDL Cholesterol >39 mg/dL 52 Non-HDL Cholesterol <=159 mg/dL 85 LDL Cholesterol <=129 mg/dL 67 BNP (NT-PRO-BNP) <300 pg/mL 2,939 (H) Digoxin Level 0.5 - 2.0 ng/mL <0.4 (L) Magnesium 1.5 - 2.6 mg/dL 2.6 TSH 0.27 - 4.20 uIU/mL 3.11 ASSESSMENT: 1. Bradycardia-CHB 2. ICD PANCHO 3. CAD OR in 1994 with PCI to LAD and attempted PCI to RCA in 05/2014 4. Permanent AF/flutter on digoxin and toprol and coumadin [id number] 4 (age, CAD CHF) 5. ICM EF 20-24% s/p VVI ICD 01/2013 6. Chronic heart failure with reduced EF, NYHA Class II PLAN: -I reviewed the cardiac conduction system with the patient and his and how it relates to his condition of TBS -Recommend upgrade to a BiV ICD -Discussed procedure and risks which include but are not limited to arrhythmias, strokes, heart attacks, injury to with blood vessels/lungs or chamber of the heart, , bleeding and infection withthe patient and the family; they expressed an understanding and wish to proceed. -Procedure 01/28 -Hold coumadin night before; goal INR for the procedure 2-2.3 -Lab work closer to procedure -COVID test closer to procedure -Device and wound check 1 week after the procedure -Continue with general cardiology f/u -EP f/u PRN Cindi Davidson DO documented in this encounter Procedure Notes * Denis Langston MD - 01/13/2022 12:03 PM EDT Associated Order(s): EKG REASON FOR STUDY: AF, icm CONCLUSIONS: Ventricular-paced rhythm Abnormal ECG When compared with ECG of 14-MAR-2020 14:20, Electronic pacemaker detected has replaced Sinus rhythm Vent. rate has decreased BY 53 BPM Ventricular Rate: 50 Atrial Rate: 32 QRS Duration: 208 QT/QTc: 502/457 ms P-R-T Crawford: 0 : -74 : 124 degrees documented in this encounter Plan of Treatment Upcoming Encounters Date Type Specialty Care Team Description 02/05/2022 Cardiac Studies Cardiology Gigi Paceekta [address] [place] [address] 02/10/2022 Anticoagulation Pharmacy Pharmacist1, [facility] [address] [facility], [place] [address] 02/16/2022 [facility]iac [facility] [place] [address] 03/18/2022 Cardiac Studies Cardiology [facility] [address] [place] [address] 04/17/2022 Office Visit Cardiology Wilmar Lay PA-C [address] [place] [address] 04/20/2022 [facility]iac Studies [facility] [address] [place] [address] 05/20/2022 Cardiac Studies Cardiology [facility] [address] [place] [address] 06/22/2022 Cardiac Studies [facility] [address] [place] [address] 08/04/2022 Cardiac Studies Cardiology [facility] [address] [facility] [address] 10/15/2022 Pharmacy Pediatric Hospitalist, Pharmacy Reimbursement [address] [facility] [place] [address] Scheduled Procedures Name Priority Associated Diagnoses Date/Ti me ONE LV LEAD REPLACEMENT Ischemic cardiomyopathy Atrial fibrillation, unspecified type (HCC) CHF (congestive heart failure) (HCC) 01/28/2022 10:00 AM EDT Health Maintenance Due Date Last Done Comments Depression Screening, Annual for Pts 12 and Over 1947 Zoster Vaccines (1 of 2) 1984 Pneumococcal Vaccine: 65+ Years (1 of 1 - PPSV23) 1999 COVID-19 Vaccine (3 - Booster for Moderna series) 06/23/2021 01/21/2021, 12/24/2020 Influenza Vaccine (FLU shot) (#1) 2021 07/29/2017, 08/08/2012 TSH FOR THYROID MEDICATION MONITORING [...] Procedure Name Priority Date/Time Associated Diagnosis Comments SC ECG ROUTINE ECG W/LEAST 12 LDS W/I&R Routine 01/13/2022 12:03 PM EDT 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 Ischemic cardiomyopathy Chronic atrial fibrillation (HCC) Heart failure, systolic, due to CAD (HCC) documented in this encounter Results * (ABNORMAL) COMPREHENSIVE METABOLIC PANEL (01/27/2022 9:36 AM EDT) BUN 30(H) 6 - 20 mg/dL [facility] 56-02 Creatinine 1.4(H) 0.6 - 1.2 mg/dL [facility] 56-02 Estimated Glomerular Filtration Rate 50(L)Comment:eGFR is calculated based on the CKD-EPI 2020 equation >=60 mL/min [place] [address] Sodium 143 135 - 146 mmol/L [place] [address] Potassium 4.4 3.5 - 5.1 mmol/L [place] [address] Chloride 103 98 - 107 mmol/L [place] [address] CO2 27 22 - 32 mmol/L [place] [address] Anion Gap 13 7 - 15 mmol/L [place] [address] Glucose 109 70 - 120 mg/dL [place] [address] Albumin 4.3 3.8 - 5.0 g/dL [place] [address] AST 23 10 - 50 U/L [place] [address] Alkaline Phosphatase 93 35 - 130 U/L [place] [address] Bilirubin, Total 0.8 <=1.2 mg/dL [place] [address] Calcium 10.0 8.4 - 10.2 mg/dL [place] [address] Protein 6.8 6.0 - 8.3 g/dL [place] [address] ALT 14 10 - 50 U/L [address] Specimen Blood - Venous blood specime n (specimen) Performing Organization Address [facility]/ZIP Co de Phone Number [place] [address] [place] [address] * (ABNORMAL) DIGOXIN LEVEL (01/27/2022 9:36 AM EDT) Digoxin Level <0.4(L) 0.5 - 2.0 ng/mL [facility] Specimen Blood - Venous blood specime n (specimen) Performing Organization Address City/[facility]/ZIP Co de Phone Number [facility] [address] [place] [address] * (ABNORMAL) PT INR (01/27/2022 9:36 AM EDT) Prothrombin Time 24.3(H) 11.5 - 14.[address] INR 2.18(H) 0.84 - 1.14 [facility] 56- Specimen Blood - Venous blood specime n (specimen) Narrative [facility] 56 - 01/27/2022 10:08 AM EDT Warfarin Therapy INR: 2.0-3.0 conventional anticoagulation INR: 2.5-3.5 high intensity anticoagulation Performing Organization Address City/[facility] Co de Phone Number [place] [address] [address] [place] [address] * (ABNORMAL) CBC (01/27/2022 9:36 AM EDT) [facility] WBC 7.10 4.00 - 10.80 K/uL [place] [address] RBC 4.42(L) 4.50 - 5.25 M/uL [place] [address] HGB 14.3 14.0 - 16.8 g/dL [place] [address] HCT 43.0 40.0 - 48.4 % [facility] [place] [address] MCV 97.3 82.0 - 99.5 fL [facility] [place] [address] MCH 32.4 27.0 - 34.0 pg [facility] [place] [address] MCHC 33.3 32.0 - 36.0 g/dL [place] [address] RDW 14.1 11.5 - 15.5 % [facility] [place] [address] PLT 161 140 - 400 K/uL [place] [address] MPV 10.4 6.6 - 11.1 fL [facility] [place] [address] Specimen Blood - Venous blood specime n (specimen) Performing Organization Address [facility] de Phone Number [place] [address] [address] [place] [address] * SARS-COV-2 (COVID-19), NAAT (01/24/2022 11:28 AM EDT) [facility] SARS-CoV-2 (COVID-19) Result Negative Comment: 2019 Novel Coronavirus not detected. This automated test was developed and its performance characteristics determined by [employer]. It has not been cleared or approved by the U.S. Food and Drug Administration (FDA). FDA does not require this test to go thru premarket FDA review. This test is used for clinical purposes. It should not be regarded as investigational or for research. This laboratory is certified under the Clinical Laboratory Improvement Amendments (CLIA) as qualified to perform high complexity clinical laboratory testing. This test is a nucleic acid amplification test (NAAT), a reverse transcriptase polymerase chain reaction (RT-PCR) test, or a Centers for Disease Control-acceptable equivalent. The test is performed in a high complexity Clinical Laboratory Improvement Amendments-(CLIA) certified laboratory. The test is acceptable for SARS-CoV-2 diagnosis, surveillance, and travel within the [place] and to most countries. Please check with local testing authorities about requirements before travel. Negative LABORATORY [facility] Specimen Upper Respiratory - Swab spe cimen from nasal mid-turbinate (specimen) Performing Organization Address [facility] de Phone Number LABORATORY [facility] [address] [place] [address] * EKG (01/13/2022 12:03 PM EDT) Specimen Procedure Note Denis Langston MD - 01/13/2022 12:03 PM EDT REASON FOR STUDY: AF, icm CONCLUSIONS: Ventricular-paced rhythm Abnormal ECG When compared with ECG of 14-MAR-2020 14:20, Electronic pacemaker detected has replaced Sinus rhythm Vent. rate has decreased BY 53 BPM Ventricular Rate: 50 Atrial Rate: 32 QRS Duration: 208 QT/QTc: 502/457 ms P-R-T Crawford: 0 : -74 : 124 degrees Performing Organization Address [facility] de Phone Number [facility] documented in this encounter Visit Diagnoses Diagnosis ICD (implantable cardioverter-defibrillator) battery depletion- Primary Bradycardia Other specified cardiac dysrhythmias Ischemic cardiomyopathy Other specified forms of chronic ischemic heart disease Chronic atrial fibrillation (HCC) Atrial fibrillation 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
--- OUTSIDE RECORDS SUMMARY | 2023-09-08 00:42 | External Medical Summary | Summary of Care ---
Author Name Unknown Organization [place] [address] Care Team Providers Care Materials Inspector Name Role Phone Hank Oshea MD Primary Care Provider [phone] Reason for Visit * Reason Comments Defibrillator Clinic remote Encounter Details Date Type Department Care Team Description 01/12/2022 Cardiac Studies Cardiology, [facility] [place] [address] [place], Pacer Clinic [facility] [address] [facility] [place] [address] AICD (automatic cardioverter/defibril lator) present*; Ischemic cardiomyopathy; Chronic atrial fibrillation (HCC) Allergies No known active allergiesdocumented as of this encounter (statuses as of 01/12/2022) Medications Medication Sig Dispensed Refills Start Date End Date Status VITAMIN D 2000 UNITS PO TABS one tablet daily 0 Activ e nitroglycerin (NITROSTAT) 0.4 MG SUBLIndications:Cor onary artery disease involving [place] coronary artery of [place] heart without angina pectoris,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 25 Tab 11 07/21/2016 Active Additional Information Patient not taking. Reported on 01/01/2022 Coenzyme Q10 (COQ10) 200 MG CAPS Take [...] 03/24/2021 Active Additional Information Patient taking differently: TAKES 1/2 TABLET BY MOUTH EVERY OTHER DAY, Reported on 01/01/2022 Warfarin Sodium 5 MG Oral Tablet (Coumadin)Indicatio ns:Atrial fibrillation (HCC) TAKE TWO TABS (10MG) BY MOUTH ON WEDNESDAY AND ONE TAB (5MG) ALL OTHER DAYS 40 Tab 11 05/12/2021 Active Additional Information Patient taking differently: 5 mg Oral DAILY, (No instructions reported), Reported on 10/06/2021 Digoxin 125 MCG Oral Tablet (Lanoxin)Indication s:Coronary artery disease involving [place] coronary artery of [place] heart without angina pectoris,Chronic atrial fibrillation (HCC) [...] and pm 90 Tablet 3 10/06/2021 Active Doxycycline Hyclate 100 MG Oral CapsuleIndications: Community acquired pneumonia of left upper lobe of lung Take 1 Capsule by mouth 2 times a day. 20 Capsule 0 10/21/2021 Active Additional Information Patient not taking. Reported on 12/02/2021 Furosemide 20 MG Oral Tablet (Lasix) Take by mouth 3 Tablets in the morning. 270 Tablet 3 01/01/2022 Active documented as of this encounter (statuses as of 01/12/2022) Active Problems Problem Noted Date AICD (automatic cardioverter/defibrillat or) present 02/10/2013 Heart failure, systolic, due to CAD 06/2013 Ischemic cardiomyopathy 01/06/2013 Atrial fibrillation 01/06/2013 CAD (coronary artery disease) 07/25/2012 [place] (myocardial infarction) 07/25/2012 documented as of this encounter (statuses as of 01/12/2022) Immunizations Name Administration Dates Next Due COVID-19 [...] as of this encounter Progress Notes * Taylor Blunt LPN - 01/12/2022 10:51 AM EDT REMOTE MONITORING TRANSMISSION - DEFIBRILLATOR -- 01/12/2022 TYPE OF VISIT: Scheduled transmission. INDICATION: Z95.810 AICD (automatic cardioverter/defibrillator) present (primary encounter diagnosis) I25.5 Ischemic cardiomyopathy I48.20 Chronic atrial fibrillation (HCC) DEVICE INFORMATION: IMPLANTING PHYSICIAN: Dr. Gonzalez IMPLANT/DEVICE HISTORY: February 02, 2013 CURRENT SYSTEM: ICD: Medtronic, model - Eric II VR [id number] SN: [id number] Implant: 02-02-2013 RV Lead: Medtronic, Model - [id number] SN: [id number]: 02-02-2013 Abandoned leads: none ALERTS/ADVISORIES:none PATIENT EVALUATION: Presenting rhythm : ventricular paced. DEVICE EVALUATION: R V Auto threshold: Not measured Sensin.8 mV Pacing impedance: 532 ohms Percentage paced: 91 % HVLI: 59 ohms Battery: 2.60 volts PANCHO: 2.63 volts Charge time: 12.8 seconds Short V-V intervals: 0 PVC singles: 84 / hour in a 30 day period which shows an increase. Mode switch episodes: 0 VT/VF episodes (since last evaluation): 0 Past VT/VF episodes: First shock: 0 Most recent shock: 0 Total ICD shocks/ATP therapy: Appropriate shocks: 0 Inappropriate shocks: 0 ATP therapy: 0 FINAL ICD PARAMETERS: Pacemaker mode/rate: VVI at 20 bpm RV Amplitude: 1.5 volts Pulse width: 0.5 msec VT detection: OFF FVT detection: ON Rate - 188-231 bpm VF detection: ON Rate - 188 bpm IMPRESSION: Normal defibrillator function Battery: 2.60 volts - Medtronic devices must measure elective replacement voltage on 3 consecutive days to trigger the PANCHO status. PLAN: The next remote monitoring transmission is scheduled for 02/16/2022. Nurse: Taylor Blunt LPN CLOTHING SALES ASSISTANT: Dr Langston This patient was interrogated remotely via the Heart Rhythm Device clinic by the device clinic nurse. The device function was found to be normal with battery life approaching PANCHO. No changes were made to the programmed parameters. I have personally reviewed the results of the device evaluation and I agree with the nurse's finding, conclusions and disposition. Expect device to reach PANCHO shortly Denis Langston MD documented in this encounter Plan of Treatment Upcoming Encounters Date Type Specialty Care Team Description 01/13/2022 Cardiac Studies Cardiac Studies 01/13/2022 Office Visit Cardiology Cindi Davidson, DO [address] [facility] [place] [address] 01/29/2022 Anticoagulation Pharmacy Pharmacist1, [facility] 200 [facility] [place] [address] 02/16/2022 Cardiac Studies Cardiology [place], Pacer Clinic [address] [place] [address] 03/18/2022 Cardiac Studies Cardiology Gigi [facility] [address] [place], [place] [address] 04/17/2022 Office Visit Cardiology Wilmar Lay PA-C [address] [place] [address] 04/20/[address] [facility] [address] [place] [address] 05/20/2022 Cardiac [facility] [address] [place], [place] [address] 06/22/2022 Cardiac Studies Cardiology Marcelino [facility] [address] [place] [address] 08/04/2022 Cardiac Studies Cardiology Marcelino [facility] [address] [place] [address] 10/15/2022 Pharmacy Geothermal Technician, Pharmacy Reimbursement [address] [place], [place] [id number] Scheduled Orders Name Type Priority Associated Diagnoses Orde r Schedule DEFIBRILLATOR REMOTE INTERROGATION EVAL/INTERP,TO 90D Procedures Routine Ischemic cardiomyopathy AICD (automatic cardioverter/defibrilla tor) present Chronic atrial fibrillation (HCC) Ordered: 01/12/2022 PACER/ICD REMOTE DATA CAPTURE/TECH REVIEW,90D Procedures Routine Ischemic cardiomyopathy AICD (automatic cardioverter/defibrilla tor) present Chronic atrial fibrillation (HCC) Ordered: 01/12/2022 Health Maintenance Due Date Last Done Comments [...] as of this encounter Visit Diagnoses Diagnosis AICD (automatic cardioverter/defibrillator) present- Primary Automatic implantable cardiac defibrillator in situ Ischemic cardiomyopathy Other specified forms of chronic ischemic heart disease Chronic atrial fibrillation (HCC) Atrial fibrillation documented in this encounter Advance Directives Documents on File Type Date Recorded Patient Supervisor Records Change Expl anation Advanced Directive Advanced Directive Advanced [...] Advanced Directive 01/26/2013 11:57 AM Care Teams Materials Inspector Relationship Specialty Start Date End Date Hank Oshea MD [address], [place] [address] PCP - General Internal Medicine 08/13/14 documented as of this encounter
--- OUTSIDE RECORDS SUMMARY | 2023-09-08 00:42 | External Medical Summary | Summary of Care ---
Author Name Unknown Organization [place] [address] Care Team Providers Care Child Therapist Name Role Phone Hank Oshea MD Primary Care Provider Reason for Visit * Reason Comments Outpatient Testing Encounter Details Date Type Department Care Team Description 01/01/2022 Laboratory Laboratory, [facility] 132 [facility] [place] [address] [facility] [address] Encounter for monitoring diuretic therapy Allergies No known active allergiesdocumented as of this encounter (statuses as of 01/01/2022) Medications Medication Sig Dispensed Refills Start Date End Date Status VITAMIN D 2000 UNITS PO TABS one tablet daily 0 Activ e nitroglycerin (NITROSTAT) 0.4 MG SUBLIndications:Cor onary artery disease involving [place] coronary artery of [place] heart without angina pectoris,Myocardial infarction involving other [...] Oral Tablet (Lanoxin)Indication s:Coronary artery disease involving [place] coronary artery of [place] heart without angina pectoris,Chronic atrial fibrillation (HCC) [...] as of this encounter (statuses as of 01/01/2022) Active Problems Problem Noted Date AICD (automatic cardioverter/defibrillat or) present 02/10/2013 Heart failure, systolic, due to CAD 06/2013 Ischemic cardiomyopathy 01/06/2013 Atrial fibrillation 01/06/2013 CAD (coronary artery disease) 07/25/2012 [place] (myocardial infarction) 07/25/2012 documented as of this encounter (statuses as of 01/01/2022) Immunizations Name Administration Dates Next Due COVID-19 [...] Encounters Date Type Specialty Care Team Description 01/12/2022 Cardiac Studies Cardiology [address]igi [address] [address] 01/13/2022 Office Visit Cardiology Cindi Davidson, DO [address] [place], [place] [address] [address] 01/29/2022 Anticoagulation Pharmacy Pharmacist1, [facility] [address] [facility] [place] [address] 02/16/2022 Cardiac Studies Cardiology Marcelino [facility] 132 [place] [address] 03/18/2022 Cardiac Studies Cardiology [facility] [address] [place] [address] 04/20/2022 Cardiac Studies Cardiology Gigi [facility] [address] [place] [address] 05/07/2022 Office Visit Cardiology Wilmar Lay PA-C [address] [place] [address] 05/20/2022 Cardiac Studies Cardiology Gigi [facility] [address] [place] [address] 06/22/2022 Cardiac [facility] [address] [place] [address] 08/04/2022 Cardiac Studies Cardiology Gigi [facility] [address] [place] [address] 10/15/2022 Pharmacy Note Specialist, Pharmacy Reimbursement [address] [place], [place] [id number] Pending Results Name Type Priority Associated Diagnoses Date /Time BASIC METABOLIC PANEL Lab Routine Encounter for monitoring diuretic therapy 01/01/2022 3:46 PM EST Health Maintenance Due Date Last [...] SCREEN EVERY 3 YRS-AGE 45 AND ABOVE 10/20/2024 10/20/2021, 10/06/2021, 02/07/2021, Additional history exists DTaP,Tdap,and Td Vaccines (2 - Tdap) 07/29/2027 07/29/2017 GARDASIL-HPV IMMUNIZATION SERIES Aged Out No longer eligible based on patient's age to complete this topic MENINGOCOCCAL (MENACTRA/MENVEO) Aged Out No longer eligible based on patient's age to complete this topic documented as of this encounter Implants Not on filedocumented as of this encounter Visit Diagnoses Diagnosis Encounter for monitoring diuretic therapy Encounter for therapeutic drug monitoring documented in this encounter Advance Directives Documents on File Type Date Recorded Patient Bulk Loader Expl anation Advanced Directive Advanced Directive Advanced [...] Advanced Directive 01/26/2013 11:57 AM Care Teams Child Therapist Relationship Specialty Start Date End Date Hank Oshea MD [address] [address] PCP - General Internal Medicine 08/13/14 documented as of this encounter
--- OUTSIDE RECORDS SUMMARY | 2023-09-08 00:42 | External Medical Summary | Summary of Care ---
Author Name Unknown Organization [place] [address] Care Team Providers Care Fish Straightener Name Role Phone Hank Oshea MD Primary Care Provider [phone] Reason for Visit * Reason Onset Date Comments COVID-19 Screening 01/25/2022 Encounter Details Date Type Department Care Team Description 01/25/2022 Telephone COVID19 Screening [facility] DEPT CLOSED 08/12/21 [address] [place] [id number], Automated Provider COVID-19 Screening Allergies No known active allergiesdocumented as of this encounter (statuses as of 01/26/2022) Medications Medication Sig Dispensed Refills Start Date End Date Status VITAMIN D 2000 UNITS PO TABS one tablet daily 0 Activ e nitroglycerin (NITROSTAT) 0.4 MG SUBLIndications:Cor onary artery disease involving [place] coronary artery of [place] heart without angina pectoris,Myocardial infarction involving other [...] Oral Tablet (Lanoxin)Indication s:Coronary artery disease involving [place] coronary artery of [place] heart without angina pectoris,Chronic atrial fibrillation (HCC) [...] as of this encounter (statuses as of 01/26/2022) Active Problems Problem Noted Date AICD (automatic cardioverter/defibrillat or) present 02/10/2013 Heart failure, systolic, due to CAD 06/2013 Ischemic cardiomyopathy 01/06/2013 Atrial fibrillation 01/06/2013 CAD (coronary artery disease) 07/25/2012 [place] (myocardial infarction) 07/25/2012 documented as of this encounter (statuses as of 01/26/2022) Immunizations Name Administration Dates Next Due COVID-19 [...] encounter Miscellaneous Notes * Telephone Encounter - [facility] - 01/26/2022 12:44 AM EDT Outreach Attempts IVR Call Jan 25 2022 9:09AM Answered - Success Results COVID: Negative IVR Message: Frank Epstein. Your COVID-19 from 01/24/2022 00:00:00 results are negative. This means you are NOT infected with coronavirus 19. If your cold/flu symptoms last longer than 7 days or get worse, contact your primary care physician. If you don't have a primary care physician, [facility] to the nearest [facility] or urgent care clinic. To establish care with a [facility] provider, please call [phone]. Practice social distancing and good hand hygiene to keep yourself and others safe. Your results are also available for your reference in your [email or web address] account under 'Test & Lab Results.' If you are not enrolled in [email or web address], you can create an account by going to [email or web address]. You will also receive a letter in the mail with your results. If you are a [employer] staff member or employee, when you receive your result, please call [facility] between 7 a.m. and 4 p.m. at [phone]. Notify them of your test results and for instructions on returning to work after your quarantine period. Press 1 if you would like to speak with a nurse, press 2 to hear this message again. documented in this encounter Plan of Treatment Upcoming Encounters Date Type Specialty Care Team Description 01/26/2022 Anticoagulation Pharmacy Pharmacist1, [facility] [address] [place] [address] 01/28/2022 Surgery Surgery Cindi Davidson, DO 400 [facility] [place] [address] ONE LV LEAD REPLACEMENT 02/05/2022 Cardiac Studies Cardiology Gigi Pacer [facility] Petros [address] [place] [address] 02/16/2022 Cardiac Studies Cardiology Gigi Pacer [facility] [address] [place] [address] 03/18/2022 Cardiac Studies Cardiology Gigi Pacer [facility] Antonella [place] [address] [place] [address] 04/17/2022 Office Visit Cardiology Wilmar Lay PA-C [address] [place] [address] 04/20/2022 Cardiac Studies Cardiology Marcelino Pacer [facility] [place] [address] [place] [address] 05/20/2022 Cardiac Studies Cardiology Gigi Pacer [facility] Antonella [place] [address] [place] [address] 06/22/2022 Cardiac Studies [facility]iology [facility] [place] [address] [place] [address] 08/04/2022 Cardiac Studies Cardiology [facility], Pacer [facility] 132 [place] [address] 10/15/2022 Pharmacy Microsoft Systems Engineer, Pharmacy Reimbursement [address] [place] [address] Scheduled Procedures Name Priority Associated Diagnoses [...] SCREEN EVERY 3 YRS-AGE 45 AND ABOVE 01/13/2025 01/13/2022, 01/01/2022, 10/20/2021, Additional history exists DTaP,Tdap,and Td Vaccines (2 [...] Documents on File Type Date Recorded Patient Risk Prevention Engineer Expl anation Advanced Directive Advanced Directive [...] Advanced Directive 01/26/2013 11:57 AM Care Teams Fish Straightener Relationship Specialty Start Date End Date Hank Oshea MD [address] [address] PCP - General Internal Medicine 08/13/14 documented as of this encounter
--- OUTSIDE RECORDS SUMMARY | 2023-09-08 00:42 | External Medical Summary ---
Author Name Unknown Address Unknown Organization K09:[facility] [place] [address] Laboratory Report Ordering Provider Test Date Status BETSYSHANIA 01/26/2022 12:00:42 Final Therapeutic ranges for non-o perative patients:
Prophylaxsis/treatment of DVT: (Range:2.0-3.0)
Treatment of pulmonary embolism:(Range:2.0-3.0)
Prevention of systemic embolism from:
-tissue heart valves
-acute myocardial infarction
-valvular heart disease
-atrial fibrillation
(Range: 2.0-3.0)
Mechanical prosthetic valves: (Range: 2.5-3.5) Observation Date Value Abnormality Reference (Units ) Status INR in Capillary blood by Coagulation assay 01/26/2022 12:00:42 3.2 (INR) Final Performing Location [place] [address]
--- OUTSIDE RECORDS SUMMARY | 2023-09-08 00:42 | External Medical Summary | Summary of Care ---
Author Name Unknown Organization [place] [address] Care Team Providers Care Ski Patroller Name Role Phone Hank Oshea MD Primary Care Provider [phone] Reason for Visit * Reason Onset Date Comments Procedure 01/22/202201/28 Encounter Details Date Type Department Care Team Description 01/22/2022 Telephone Pharmacy, [facility] Deborah [place] 200 [place] [address] Pharmacist1, [facility] 200 [facility] [place] [address] Procedure (01/28) Allergies No known active allergiesdocumented as of this encounter (statuses as of 01/22/2022) Medications Medication Sig Dispensed Refills Start Date [...] as of this encounter (statuses as of 01/22/2022) Active Problems Problem Noted Date AICD (automatic cardioverter/defibrillat or) present 02/10/2013 Heart failure, systolic, due to CAD 06/2013 Ischemic cardiomyopathy 01/06/2013 Atrial fibrillation 01/06/2013 CAD (coronary artery disease) 07/25/2012 [place] (myocardial infarction) 07/25/2012 documented as of this encounter (statuses as of 01/22/2022) Immunizations Name Administration Dates Next Due COVID-19 [...] encounter Miscellaneous Notes * Telephone Encounter - Luiza Masters RPh - 01/22/2022 3:32 PM EDT Medication Therapy Disease Management - Anticoagulation Patient: Lucian Reynolds Neo Whitney : 1935 Current Warfarin Dose As of 01/22/2022 Warfarin maintenance plan: 5 mg (5 mg x 1) every day Patient-Reported Symptoms: Patient Findings Positives: Upcoming invasive procedure (ICD change on 01/28. Dr. Davidson wants INR 2.0-2.3 on 01/26. Patient to hold warfarin night before. ) INR Result As of 01/22/2022 INR goal: 2.0-3.0 INR used for dosing: No new INR was available at the time of this encounter. Warfarin Plan As of 01/22/2022 Full warfarin instructions: 01/24: 2.5 mg; 01/25: 2.5 mg; 01/27: Hold; Otherwise 5 mg every day Next INR check: 01/26/2022 Additional Dosing Information: Repeat PT/INR in 4 day(s) Weekly dose: patient's dose slightly in preparation for INR on Wednesday as he's been high last two INRs. Spoke to patient's , she's aware. Luiza Paz [facility] Clinical Pharmacist 01/22/2022, 3:32 PM * Telephone Encounter - KEITH Sofia - 01/22/2022 1:39 PM EDT [facility] on 01/28. It states on the paperwork that labs are due by 01/26. Does he need to do anything with his coumadin? Please advise. Thanks! Patient Phone Numbers documented in this encounter Plan of Treatment Upcoming Encounters Date Type Specialty Care Team Description 01/24/2022 Nurse Only Ancillary [place], Pre Surgical Covid Testing Antonella [address] [place] [address] 01/26/2022 Anticoagulation Pharmacy Pharmacist1, [facility] 200 [place] [address] 01/28/2022 Surgery Surgery Cindi Davidson, DO 400 [facility] [place] [id number] ONE LV LEAD REPLACEMENT 02/05/2022 Cardiac Studies Cardiology Marcel[facility], [facility] [address] [place] [address] 02/16/2022 Cardiac Studies Cardiology [facility], Pacer [facility] Antonella [place] [address] [place] [address] 03/18/2022 Cardiac Studies Cardiology Marcelino Pacer [facility] Antonella [place] [address] [place] [address] 04/17/2022 Office Visit Cardiology Wilmar Lay PA-C [address] [place] [address] 04/20/2022 Cardiac Studies Cardiology [facility] [address] [place] [address] 05/20/2022 Cardiac Studies Cardiology [facility] [address] [place] [address] 06/22/2022 Cardiac Studies Cardiology [facility] [address] [place] [address] 08/04/2022 Cardiac Studies Cardiology [facility] [address] [place] [address] 10/15/2022 Pharmacy Monorail Crane Operator, Pharmacy Reimbursement [address] [place], [place] [id number] Scheduled Procedures Name Priority Associated Diagnoses Date/Ti [...] Diagnosis Atrial fibrillation, unspecified type (HCC)- Primary Ischemic cardiomyopathy Other specified forms of chronic ischemic heart disease Atrial fibrillation, unspecified type (HCC) CHF (congestive heart failure) (HCC) Congestive heart failure, unspecified documented in this encounter Advance Directives Documents on File Type Date Recorded Patient Hot Top Liner Expl anation Advanced Directive Advanced Directive Advanced [...] Advanced Directive 01/26/2013 11:57 AM Care Teams Ski Patroller Relationship Specialty Start Date End Date Hank Oshea MD [address] [address] PCP - General Internal Medicine 08/13/14 documented as of this encounter
--- OUTSIDE RECORDS SUMMARY | 2023-09-08 00:42 | External Medical Summary | Summary of Care ---
Author Name Unknown Organization [place] [address] Care Team Providers Care Business Systems Advisor Name Role Phone Hank Oshea MD Primary Care Provider [phone] Reason for Referral * Precert (Within 10 days (routine)) - Authorized Specialty Diagnoses / Procedures Referred By Contac t Referred To Contact Cardiac Studies Diagnoses Ischemic cardiomyopathy Procedures ECHO, COMPLETE (2D), TRANS-THORACIC Wilmar Lay PA-C [address] [place] [id number] Referral ID Status Reason Start Date Expiration Date V isits Requested Visits Authorized [id number] Authorized Precert 01/15/2022 1 1 Reason for Visit * Reason Comments Follow Up Encounter Details Date Type Department Care Team Description 01/01/2022 Office Visit Cardiology, [facility] [address] [place] [address] Wilmar Lay PA-C [address] [place] [address] Encounter for monitoring diuretic therapy*; Ischemic cardiomyopathy; Chronic atrial fibrillation (HCC); AICD (automatic cardioverter/defibrill ator) present; Coronary artery disease involving [place] coronary artery of [place] heart without angina pectoris; Heart failure, systolic, due to CAD (HCC) Allergies No known active allergiesdocumented as of this encounter (statuses as of 01/04/2022) Medications Medication Sig Dispensed Refills Start Date End Date Status VITAMIN D 2000 UNITS PO TABS one tablet daily 0 Activ e nitroglycerin (NITROSTAT) 0.4 MG SUBLIndications:C oronary artery disease involving [place] coronary artery of [place] heart without angina pectoris,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 25 Tab 11 6 Active Additional Information Patient not taking. Reported on 01/01/2022 Coenzyme Q10 (COQ10) 200 MG CAPS Take 1 Cap by mouth daily. 0 Active Cetirizine HCl (ZYRTEC ALLERGY) 10 MG Capsule Take 10 mg by mouth daily. 0 Active levothyroxine (LEVOXYL) 50 MCG Tablet Take 75 mcg by mouth daily. 3 9 Active Metoprolol Succinate ER 50 MG Oral Tablet Extended Release 24 Hour (toPROL XL)Indications:At rial fibrillation, unspecified type (HCC) Take 1 tablet by mouth twice daily 182 Tab 3 1 Active Rosuvastatin Calcium 5 MG Oral Tablet (Crestor)Indicati ons:Heart failure, systolic, due to CAD (HCC),Ischemic cardiomyopathy,AI CD (automatic cardioverter/defi brillator) present,CAD (coronary artery disease) TAKE 1 TABLET BY MOUTH EVERY OTHER DAY 45 Tab 4 1 Active Additional Information Patient taking differently: TAKES 1/2 TABLET BY MOUTH EVERY OTHER DAY, Reported on 01/01/2022 Warfarin Sodium 5 MG Oral Tablet (Coumadin)Indicat ions:Atrial fibrillation (HCC) TAKE TWO TABS (10MG) BY MOUTH ON WEDNESDAY AND ONE TAB (5MG) ALL OTHER DAYS 40 Tab 11 1 Active Additional Information Patient taking differently: 5 mg Oral DAILY, (No instructions reported), Reported on 10/06/2021 Digoxin 125 MCG Oral Tablet (Lanoxin)Indicati ons:Coronary artery disease involving [place] coronary artery of [place] heart without angina pectoris,Chronic atrial fibrillation [...] and pm 90 Tablet 3 1 Active Doxycycline Hyclate 100 MG Oral CapsuleIndication s:Community acquired pneumonia of left upper lobe of lung Take 1 Capsule by mouth 2 times a day. 20 Capsule 0 1 Active Additional Information Patient not taking. Reported on 12/02/2021 Furosemide 20 MG Oral Tablet (Lasix) Take by mouth 3 Tablets in the morning. 270 Tablet 3 2 Active Furosemide 20 MG Oral Tablet (Lasix) Take by mouth 3 Tablets in the morning. 270 Tablet 3 2 01/02/20 22 Discontinued documented as of this encounter (statuses as of 01/04/2022) Active Problems Problem Noted Date AICD (automatic cardioverter/defibrillat or) present 02/10/2013 Heart failure, systolic, due to CAD 06/2013 Ischemic cardiomyopathy 01/06/2013 Atrial fibrillation 01/06/2013 CAD (coronary artery disease) 07/25/2012 MA (myocardial infarction) 07/25/2012 documented as of this encounter (statuses as of 01/04/2022) Immunizations Name Administration Dates Next Due COVID-19 [...] Sign Reading Time Taken Comments Blood Pressure 100/54 01/01/2022 3:06 PM EST Pulse 72 01/01/2022 3:06 PM EST irreg ular Temperature 36.6 C (97.9 F) 01/01/2022 3:06 PM ES T Respiratory Rate 16 01/01/2022 3:06 PM EST Oxygen Saturation - - Inhaled Oxygen Concentration - - Weight 81.6 kg (180 lb) 01/01/2022 3:06 PM EST Height - - Body Mass Index 25.83 03/21/2018 12:57 PM EDT documented in this encounter Progress Notes * Wilmar Lay PA-C - 01/01/2022 3:20 PM EST History of Present Illness: Lucian Larson Jr. Is a very pleasant 86-year-old male here today for close cardiology follow-up. The patient was last seen in this office on December 02, 2021, presentingat that time with volume overload. Furosemide was increased to 60 mg per day without difficulty, without adverse reaction. He returns today noting some improvement in the cough productive of mucus, perhaps some improvement in dyspnea, and improvement in the lower extremity peripheral edema. His weight is down 5 lb from last evaluation. He has stable lightheadedness/dizziness with some positional changes, unchanged. No near syncope or syncope. No chest pain. No palpitations. No orthopnea. No PND. No melena. No hematochezia. No device alarms or discharges. Device interrogation scheduled for January 12, 2022. Patient scheduled to see Electrophysiology on January 13, 2022. Patient Active Problem List Diagnosis Code CAD (coronary artery disease) I25.10 MA (myocardial infarction) ([facility]) I21.9 Heart failure, systolic, due to CAD ([facility]) I50.20, I25.10 Ischemic cardiomyopathy I25.5 Atrial fibrillation ([facility]) I48.91 AICD (automatic cardioverter/defibrillator) present [...] tablet bymouth twice daily 182 Tab 3 Warfarin Sodium 5 MG Oral Tablet [...] Tablets in the morning. 270 Tablet 3 nitroglycerin (NITROSTAT) 0.[address] 1 Tab under the tongue as needed for Pain, Chest. (Patient not taking: Reported on 01/01/2022 ) 25 Tab 11 Rosuvastatin Calcium 5 MG Oral Tablet (Crestor) TAKE 1 TABLET BY MOUTH EVERY OTHER DAY (Patienttaking differently: TAKES 1/2 TABLET BY MOUTH EVERY OTHER DAY ) 45 Tab 4 Doxycycline Hyclate 100 MG Oral Capsule Take 1 Capsule by mouth 2 times a day. (Patient not taking: Reported on 12/02/2021 ) 20 Capsule 0 No current facility-administered medications for this visit. OBJECTIVE/PHYSICAL EXAMINATION: BP 100/54 (BP Site: Left Arm, BP Position: Sitting, BP Cuff Size: Large) | Pulse 72 Comment: irregular | Temp 36.6 C (97.9 F) (Infrared ) | Resp 16 | Wt 81.6 kg (180 lb) | BMI 25.83 kg/m | BSA 2.01 m General: A&Ox3. NAD. HENT: Normocephalic. Atraumatic. Eyes: PER. Conjunctiva pink, sclera clear. Neck: No carotid bruits. + JVD. Heart: Distant heart sounds. Irregularly irregular 80 bpm. No murmur appreciated. No rub. No gallop. PMI is nondisplaced. Lungs: Bibasilar rales. Decreased at the left base. Abdomen: +BS. Soft. Nontender. No masses or organomegaly. Extremities: 1+ pitting edema. No clubbing. No cyanosis. Limited neurological examination is without focal deficits. Pulses: radial=2/4, posterior tibial=2/4. Data: July 10, 2019 TTE Interpretation Summary (as per Dr. Richardson): The rhythm during the transthoracic echo examination was atrial fibrillation with controlled ventriculr response. The qualitative LV ejection fraction is 20-24% (severely reduced). The anterior septum appears thinned and severely hypokinetic to akinetic. The base and mid inferoseptum appears thinned and akinetic. The base and midinferior wall is akinetic. The base posterior wall is akinetic. The remaining left ventricular myocardial wall segments are severely hypokinetic. Mild aortic valve sclerosis is present. Mild mitral regurgitation is present. Mild tricuspid regurgitation is present. The estimated pulmonary artery systolic pressure is 36mm Hg. Compared to last available study changes are noted as follows: Moderate left atrial enlargement and mild pulmonary hypertension now present. December 12, 2021 device interrogation. Medtronic Model - Eric II VR [id number] (SN: [id number]). RVLead: Medtronic, Model - 6935 (SN: [id number]). Implant Date: 02-02-2013. Battery voltage: 2.61 V. PANCHO 2.63 V. Backup pacemaker set VVI, 50 bpm. Ventricular paced 98.1%. ASSESSMENT: 1. Improved evidence of acute decompensated systolic congestive heart failure 2. 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 3. History of acute decompensation in the setting of elevated heart rate, receiving stenting to therecannulated left anterior descending and attempted stent into the proximal right coronary artery in May 2014. 4. Severe ischemic cardiomyopathy, with LVEF 20 to 24%. 5. Status post January 2013 single-chamber ICD implantation, with dwindling battery longevity. 6. Chronic atrial fibrillation. 7. Chronic coumadin anticoagulation 8. Frequent ventricular ectopy 9. Atherosclerotic coronary disease 10. Dyslipidemia. Options discussed with patient and . Plan as outlined below. RECOMMENDATIONS/PLAN: 1. Basic metabolic panel today, considering further titration of furosemide 80 mg/day. If hypokalemia noted would reconsider very low dose spironolactone. 2. Continue the reduced dose of Entresto, 1/2 tablet twice per day for now. Reconsider titration back to 1 tablet twice per day if/when blood pressure permits. 3. ? Resting echocardiography when in to see Dr. Davidson on January 13, 2022 4. Future generator exchange verses device upgrade discussed once again. 5. General cardiology follow-up in 2-3 months or as needed. 6. ER with emergencies. Wilmar Lay PA-C Department of Cardiology documented in this encounter Nursing Notes * aRfiq Miramontes RN - 01/01/2022 3:05 PM EST Examination Room: room 2 Name: Lucian Larson Jr. Date of : (1935). Reason for Visit: for follow-up Interim Hospitalization(s): denies Problems/Concerns: denies Chest Pain/SOB: denies [facility] Discussed: Not applicable [facility] is a way you can talk to your provider online through e-mail. Would you like to sign up? I can activate it for you? ALREADY ACTIVE Patient was instructed to not get up [...] Care Team Description 01/12/2022 Cardiac Studies Cardiology Isi Yu [address] [place] [address] 01/13/2022 Cardiac Studies Cardiac Studies 01/13/2022 Office Visit Cardiology Cindi Davidson DO [address] [place], [place] [address] [address] 01/29/2022 [facility] Pharmacist1, [address] [place] [address] 02/16/2022 Cardiac Studies Cardiology N[facility]i [facility] [address] [place], [place] [address] 03/18/2022 Cardiac Studies [facility] [address] [place] [address] 04/17/2022 Office Visit Cardiology Wilmar Lay PA-C [address] [place], [place] [address] 04/20/2022 Cardiac Studies Cardiology Gigi [facility] [address] [place] [address] 05/20/2022 [facility] [address] [place] [address] 06/22/2022 Cardiac Studies Cardiology Gigi [facility] [address] [facility] [place] [address] 08/04/2022 [facility]iac [facility] [address] [place] [address] 10/15/2022 Pharmacy Batch Operator, Pharm[facility] Reimbursement [id number] Scheduled Orders Name Type Priority Associated Diagnoses Orde r Schedule ECHO, COMPLETE (2D), TRANS-THORACIC Echocardiology Routine Ischemic cardiomyopathy Expected: 01/15/2022, Expires: 01/01/2023 Health Maintenance Due Date Last Done Comments [...] as of this encounter Results * (ABNORMAL) BASIC METABOLIC PANEL (01/01/2022 3:46 PM EST) BUN 30(H) 6 - 20 mg/dL [facility] Creatinine 1.5(H) 0.6 - 1.2 mg/dL [facility] Estimated Glomerular Filtration Rate 46(L)Comment:eGFR is calculated based on the CKD-EPI 2020 equation >=60 mL/min [facility] Sodium 141 135 - 146 mmol/L [facility] Potassium 5.2(H) 3.5 - 5.1 mmol/L [facility] Chloride 102 98 - 107 mmol/L [facility] CO2 29 22 - 32 mmol/L [facility] Anion Gap 10 7 - 15 mmol/L [facility] Glucose 81 70 - 120 mg/dL [facility] Calcium 9.9 8.4 - 10.2 mg/dL [facility] Specimen Blood - Venous blood specime n (specimen) Performing Organization Address City/State/[facility] Co de Phone Number [facility]ATORY [facility] [address] [place] [address] documented in this encounter Visit Diagnoses Diagnosis Encounter for monitoring diuretic therapy- Primary Encounter for therapeutic drug monitoring Ischemic cardiomyopathy Other specified forms of chronic ischemic heart disease Chronic atrial fibrillation (HCC) Atrial fibrillation AICD (automatic cardioverter/defibrillator) present Automatic implantable cardiac defibrillator in situ Coronary artery disease involving [place] coronary artery of [place] heart without angina pectoris Heart failure, systolic, due to CAD (HCC) Unspecified systolic heart failure documented in this encounter Advance Directives Documents on File Type Date Recorded Patient Provider Engagement Executive Expl anation Advanced Directive Advanced Directive Advanced [...] Advanced Directive 01/26/2013 11:57 AM Care Teams Business Systems Advisor Relationship Specialty Start Date End Date Hank Oshea MD [address] [address] PCP - General Internal Medicine 08/13/14 documented as of this encounter"
--- OUTSIDE RECORDS SUMMARY | 2023-09-08 00:42 | External Medical Summary ---
Author Name Unknown Address Unknown Organization [id number]:LABORATORY [facility] [address] - [address] [place] [address] Laboratory Report Ordering Provider Test Date Status ROXANA MAYA 01/13/2022 14:02:22 Final Observation Date Value Abnormality Reference (Units ) Status BUN 01/13/2022 14:02:22 27 Above high normal 6-20 (mg/dL) Final Creatinine 01/13/2022 14:02:22 1.3 Above high normal 0.6-1.2 (mg/dL) Final Glomerular filtration rate/1.73 sq M.predicted [Volume Rate/Area] in Serum, Plasma or Blood by Creatinine-based formula (CKD-EPI) 01/13/2022 14:02:22 52 Below low normal >=60 (mL/min) Final eGFR is calculated based on the CKD-EPI 2020 equation Sodium 01/13/2022 14:02:22 140 135-146 (m mol/L) Final Potassium 01/13/2022 14:02:22 4.7 3.5-5.1 (m mol/L) Final Cl 01/13/2022 14:02:22 101 98-107 (mm ol/L) Final CO2 01/13/2022 14:02:22 27 22-32 (mmo l/L) Final Anion gap 01/13/2022 14:02:22 12 7-15 (mmol /L) Final Glucose 01/13/2022 14:02:22 92 70-120 (mg /dL) Final Calcium 01/13/2022 14:02:22 10.0 8.4-10.2 ( mg/dL) Final Performing Location [facility] [address] - [address] [place] [address]
--- OUTSIDE RECORDS SUMMARY | 2023-09-08 00:42 | External Medical Summary ---
Author Name Unknown Address Unknown Organization [id number]:[facility] [place] [address] Laboratory Report Ordering Provider Test Date Status CAROLINE BEVERLY 01/27/2022 09:36:30 Final Observation Date Value Abnormality Reference (Units ) Status WBC, Total 01/27/2022 09:36:30 7.10 4.00-10.8 0 (K/uL) Final RBC 01/27/2022 09:36:30 4.42 Below low normal 4.5 0-5.25 (M/uL) Final Hemoglobin 01/27/2022 09:36:30 14.3 14.0-16.8 (g/dL) Final HCT 01/27/2022 09:36:30 43.0 40.0-48.4 (%) Final MCV 01/27/2022 09:36:30 97.3 82.0-99.5 (fL) Final MCH 01/27/2022 09:36:30 32.4 27.0-34.0 (pg) Final MCHC 01/27/2022 09:36:30 33.3 32.0-36.0 (g/dL) Final RDW 01/27/2022 09:36:30 14.1 11.5-15.5 (%) Final Platelets 01/27/2022 09:36:30 161 140-400 (K /uL) Final MPV 01/27/2022 09:36:30 10.4 6.6-11.1 ( fL) Final Performing Location [facility] [place] [address]
--- OUTSIDE RECORDS SUMMARY | 2023-09-08 00:42 | External Medical Summary | Summary of Care ---
Author Name Unknown Organization [place] [address] Care Team Providers Care Express Manager Name Role Phone Hank Oshea MD Primary Care Provider [phone] Reason for Visit * Reason Onset Date Comments Test Results 01/05/2022 Encounter Details Date Type Department Care Team Description 01/05/2022 Telephone Cardiology, [facility] [address] [place] [address] Wilmar Lay PA-C [address] [place] [address] Test Results Allergies No known active allergiesdocumented as of this encounter (statuses as of 01/05/2022) Medications Medication Sig Dispensed Refills Start Date End Date Status VITAMIN D 2000 UNITS PO TABS one tablet daily 0 Activ e nitroglycerin (NITROSTAT) 0.4 MG SUBLIndications:Cor onary artery disease involving [place] coronary artery of [place] heart without angina pectoris,Myocardial infarction involving other [...] Oral Tablet (Lanoxin)Indication s:Coronary artery disease involving [place] coronary artery of [place] heart without angina pectoris,Chronic atrial fibrillation (HCC) [...] as of this encounter (statuses as of 01/05/2022) Active Problems Problem Noted Date AICD (automatic cardioverter/defibrillat or) present 02/10/2013 Heart failure, systolic, due to CAD 06/2013 Ischemic cardiomyopathy 01/06/2013 Atrial fibrillation 01/06/2013 CAD (coronary artery disease) 07/25/2012 NV (myocardial infarction) 07/25/2012 documented as of this encounter (statuses as of 01/05/2022) Immunizations Name Administration Dates Next Due COVID-19 [...] encounter Miscellaneous Notes * Telephone Encounter - Yina Elizondo RN - 01/05/2022 12:48 PM EST Called, spoke with patient's spouse. Spouse verbalizing understanding of given results/recommendations. Lab order placed. 01/12/22 appointment is remote device check. Will have lab work done 01/13/22 when here for echo. * Telephone Encounter - Yina Elizondo RN - 01/05/2022 12:45 PM EST ----- Message from Wilmar Lay PA-C sent at 01/02/2022 7:50 AM EST ----- Stable renal dysfunction. Mild hyperkalemia - 5.2mmol/L, ? secondary to hemolysis Check a basic metabolic panel on January 12, 2022 Continue medications as prescribed for now. documented in this encounter Plan of Treatment Upcoming Encounters Date Type Specialty Care Team Description 01/12/2022 [facility] [address] [place] [address] 01/13/2022 Cardiac Studies Cardiac Studies 01/13/2022 Office Visit Cardiology Cindi Davidson, DO [address] [facility] [place] [address] 01/29/2022 Anticoagulation Pharmacy Pharmacist1, [address] [place] [address] 02/16/2022 Cardiac Studies Cardiology [facility]ella [place] [place] [address] 03/18/2022 Cardiac Studies Cardiology [facility] Antonella Morrell [address] [place] [address] 04/17/2022 Office Visit Cardiology Wilmar Lay PA-C [facility] [place] [address] 04/20/2022 Cardiac Studies Cardiology [facility] Antonella Morrell [address] [place] [address] 05/20/2022 Cardiac Studies Cardiology [facility] Antonella Morrell [address] [place] [address] 06/22/2022 [facility] [address] [place] [address] 08/04/2022 Cardiac Studies Cardiology [facility], [facility] [address] [facility] [place] [address] 10/15/2022 Pharmacy Youth Support Worker, Pharmacy Reimbursement [address] [facility] [place] [address] Scheduled Orders Name Type Priority Associated Diagnoses Orde r Schedule BASIC METABOLIC PANEL Lab Routine Hyperkalemia Expected: 01/13/2022 (Approximate), Expires: 01/05/2023 Health Maintenance Due Date Last Done Comments [...] as of this encounter Visit Diagnoses Diagnosis Hyperkalemia- Primary Hyperpotassemia documented in this encounter Advance Directives Documents on File Type Date Recorded Patient Outbound Sales Advisor Expl anation Advanced Directive Advanced Directive Advanced [...] Advanced Directive 01/26/2013 11:57 AM Care Teams Express Manager Relationship Specialty Start Date End Date Hank Oshea MD [address] [address] PCP - General Internal Medicine 08/13/14 documented as of this encounter
--- OUTSIDE RECORDS SUMMARY | 2023-09-08 00:42 | External Medical Summary ---
Author Name Unknown Address Unknown Organization K01:[facility] [address] [place] [address] Laboratory Report Ordering Provider Test Date Status SIRIA,ZAJOHNNIE 01/27/2022 09:36:30 Final Observation Date Value Abnormality Reference (Units ) Status Digoxin 01/27/2022 09:36:30 <0.4 Below low normal 0.5 -2.0 (ng/mL) Final Performing Location [facility] [address] [place] [address]
--- OUTSIDE RECORDS SUMMARY | 2023-09-08 00:42 | External Medical Summary | Summary of Care ---
Author Name Unknown Organization [place] [address] Care Team Providers Care Management Coordinator Name Role Phone Hank Oshea MD Primary Care Provider [phone] Encounter Details Date Type Department Care Team Description 01/28/2022 Result Scan Cardiology Giancarlo Patel [address] [place] [address] Cindi Davidson, [address] [place] [address] <No scans attached> Allergies No known active allergiesdocumented as of this encounter (statuses as of 01/30/2022) Medications Medication Sig Dispensed Refills Start Date End Date Status VITAMIN D 2000 UNITS PO TABS one tablet daily 0 Activ e nitroglycerin (NITROSTAT) 0.4 MG SUBLIndications:Cor onary artery disease involving [place] coronary artery of [place] heart without angina pectoris,Myocardial infarction involving other [...] Oral Tablet (Lanoxin)Indication s:Coronary artery disease involving [place] coronary artery of [place] heart without angina pectoris,Chronic atrial fibrillation (HCC) [...] as of this encounter (statuses as of 01/30/2022) Active Problems Problem Noted Date AICD (automatic cardioverter/defibrillat or) present 02/10/2013 Heart failure, systolic, due to CAD 06/2013 Ischemic cardiomyopathy 01/06/2013 Atrial fibrillation 01/06/2013 CAD (coronary artery disease) 07/25/2012 IA (myocardial infarction) 07/25/2012 documented as of this encounter (statuses as of 01/30/2022) Immunizations Name Administration Dates Next Due COVID-19 [...] Team Description 02/05/2022 Cardiac Studies Cardiology [facility] [address] [place] [address] 02/10/2022 Anticoagulation Pharmacy Pharmacist1, [address] [address] 02/16/2022 Cardiac Studies Cardiology [facility] [address] [place] [address] 03/18/2022 Cardiac Studies Cardiology [facility] [place] [address] [facility] [place] [address] 04/17/2022 Office Visit Cardiology Wilmar Lay PA-C [address] [place] [address] 04/20/2022 [facility] [place] [address] [place] [address] 05/20/2022 Cardiac Studies Cardiology [facility] [address] [place] [address] 06/22/2022 Cardiac Studies Cardiology [facility] 132 [facility] [place] [address] 08/04/2022 Cardiac Studies Cardiology [facility] [place] [address] 10/15/2022 Pharmacy Cutter Brake Lining, Pharmacy Reimbursement [address] [place] [address] Health Maintenance Due Date Last Done [...] Procedure Name Priority Date/Time Associated Diagnosis Comments OUTSIDE LAB RESULTS 01/28/2022 RADIOLOGY SCANNED RESULT 01/28/2022 documented in this encounter Results * RADIOLOGY SCANNED RESULT (01/28/2022) Specimen Narrative * OUTSIDE LAB RESULTS (01/28/2022) Specimen Narrative documented in this encounter Advance Directives Documents on File Type Date Recorded Patient Metal Sander Expl anation Advanced Directive Advanced Directive Advanced [...] Advanced Directive 01/26/2013 11:57 AM Care Teams Management Coordinator Relationship Specialty Start Date End Date Hank Oshea MD [address] [address] PCP - General Internal Medicine 08/13/14 documented as of this encounter
--- OUTSIDE RECORDS SUMMARY | 2023-09-08 00:42 | External Medical Summary ---
Author Name Unknown Address Unknown Organization [id number]:[facility] [place] [address] Laboratory Report Ordering Provider Test Date Status CAROLINE BEVERLY 01/27/2022 09:36:30 Final Warfarin Therapy
INR: 2 .0-3.0 conventional anticoagulation
INR: 2.5- 3.5 high intensity anticoagulation Observation Date Value Abnormality Reference (Units ) Status PT 01/27/2022 09:36:30 24.3 Above high normal 11 .5-14.6 (seconds) Final INR 01/27/2022 09:36:30 2.18 Above high normal 0. 84-1.14 Final Performing Location [facility] [place] [address]
--- OUTSIDE RECORDS SUMMARY | 2023-09-08 00:42 | External Medical Summary | Summary of Care ---
Author Name Unknown Organization [place] [address] Care Team Providers Care Hatchery Supervisor Name Role Phone Hank Oshea MD Primary Care Provider Reason for Visit * Reason Comments Dosage Adjustment In Person (Anticoag Cl inic) Encounter Details Date Type Department Care Team Description 01/26/2022 Anticoagulation Pharmacy, [facility] [address] [facility] [place] [address] Pharmacist1, [facility] 200 [facility] [place] [address] Atrial fibrillation, unspecified type (HCC)*; Myocardial infarction, unspecified ME type, unspecified artery (HCC); Anticoagulation management encounter; custodial 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 therapy Allergies No known active allergiesdocumented as of this encounter (statuses as of 01/26/2022) Medications Medication Sig Dispensed Refills Start Date End Date Status VITAMIN D 2000 UNITS PO TABS one tablet daily 0 Activ e nitroglycerin (NITROSTAT) 0.4 MG SUBLIndications:Cor onary artery disease involving [place] coronary artery of [place] heart without angina pectoris,Myocardial infarction involving other [...] Oral Tablet (Lanoxin)Indication s:Coronary artery disease involving [place] coronary artery of [place] heart without angina pectoris,Chronic atrial fibrillation (HCC) [...] as of this encounter Progress Notes * Haven Vallejo, [facility] - 01/26/2022 11:55 AM EDT Images from the original note were not included. Medication Therapy Disease Management - Anticoagulation Patient: Lucian Larson Jr. : 1935 Current Warfarin Dose As of 01/26/2022 Warfarin maintenance plan: 5 mg (5 mg x 1) every day Per last [facility] note, "Upcoming invasive procedure (ICD change on 01/28. Dr. Davidson wants INR 2.0-2.3 on 01/26. Patient to hold warfarin night before." Patient-Reported Symptoms: Patient Findings Negatives: Signs/symptoms of thrombosis, Signs/symptoms of bleeding, Change in health, Change in alcohol use, Change in activity, Upcoming invasive procedure, Missed doses, Extra doses, Change in medications, Change in diet/appetite, Bruising Comments: Patient still supratherapeutic despite decreased dose. Message sent to Dr Davidson. Will plan to have patient hold today 01/26 and tomorrow 01/27. Maintenance dose decreased as well due to supratherapeutic INR. INR Result As of 01/26/2022 INR goal: 2.0-3.0 INR used for dosin.2 (01/26/2022) Warfarin Plan As of 01/26/2022 Full warfarin instructions: 01/26: Hold; 01/27: Hold; Otherwise 2.5 mg every Mon; 5 mg all other days Next INR check: 02/10/2022 Additional Dosing Information: Repeat PT/INR in 2 week(s) Weekly dose: decreased Haven Vallejo [facility] Clinical Pharmacist 01/26/2022, 11:55 AM documented in this encounter Plan of Treatment Upcoming Encounters Date Type Specialty Care Team Description 01/28/2022 Surgery Surgery Cindi Davidson, DO [address] [place] [address] [place] [address] ONE LV LEAD REPLACEMENT 02/05/2022 Cardiac Studies Cardiology [facility] [address] [place] [address] 02/10/2022 Anticoagulation Pharmacy Pharmacist1, [facility] 200 [place] [address] 02/16/2022 Cardiac Studies Cardiology [facility] [address] [place] [address] 03/18/2022 Cardiac Studies Cardiology [facility] [address] [place] [address] 04/17/2022 Office Visit Cardiology Wilmar Lay PA-C [address] [place] [address] 04/20/2022 Cardiac Studies Cardiology [facility] [address] [place] [address] 05/20/2022 Cardiac Studies [facility] [address] 06/22/2022 Cardiac Studies Cardiology [facility] 132 [facility] [place] [address] 08/04/2022 Cardiac Studies Cardiology [facility] 132 [facility] [place] [address] 10/15/2022 Pharmacy Driver Service Technician, Pharmacy Reimbursement [address] [place] [address] Scheduled Procedures Name Priority Associated [...] Comments INR FINGERSTICK, POINT OF CARE STAT 01/26/2022 12:00 PM EDT Atrial fibrillation, unspecified type (HCC) Myocardial infarction, unspecified ME type, unspecified artery (HCC) 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 documented in this encounter Results * INR FINGERSTICK, POINT OF CARE (01/26/2022 12:00 PM EDT) Fingerstick INR 3.2 INR [facility] 56-02 Specimen Blood Narrative [facility] [place] 56-02 - 01/26/2022 12:10 PM EDT Therapeutic ranges for non-operative patients: Prophylaxsis/treatment of DVT: (Range:2.0-3.0) Treatment of pulmonary embolism:(Range:2.0-3.0) Prevention of systemic embolism from: -tissue heart valves -acute myocardial infarction -valvular heart disease -atrial fibrillation (Range: 2.0-3.0) Mechanical prosthetic valves: (Range: 2.5-3.5) Performing Organization Address City/State/[facility] Co de Phone Number [facility] [place] [address] [place], [place] [phone] documented in this encounter Visit Diagnoses Diagnosis Atrial fibrillation, unspecified type (HCC)- Primary Myocardial infarction, unspecified ME type, unspecified artery (HCC) Anticoagulation management encounter Encounter for therapeutic drug monitoring custodial 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 therapy Ischemic cardiomyopathy Other specified forms of chronic ischemic heart disease Atrial fibrillation, unspecified type (HCC) CHF (congestive heart failure) (HCC) Congestive heart failure, unspecified documented in this encounter Advance Directives Documents on File Type Date Recorded Patient Environmental Remediation Specialist Expl anation Advanced Directive Advanced Directive Advanced [...] Advanced Directive 01/26/2013 11:57 AM Care Teams Hatchery Supervisor Relationship Specialty Start Date End Date Hank Oshea MD [address] [facility] [address] [place] [address] PCP - General Internal Medicine 08/13/14 documented as of this encounter
--- OUTSIDE RECORDS SUMMARY | 2023-09-08 00:42 | External Medical Summary ---
Author Name Unknown Address Unknown Organization K09:[facility] [place] [address] [place] [address] Laboratory Report Ordering Provider Test Date Status CAROLINE BEVERLY 01/27/2022 09:36:30 Final Observation Date Value Abnormality Reference (Units ) Status BUN 01/27/2022 09:36:30 30 Above high normal 6-20 (mg/dL) Final Creatinine 01/27/2022 09:36:30 1.4 Above high normal 0.6-1.2 (mg/dL) Final Glomerular filtration rate/1.73 sq M.predicted [Volume Rate/Area] in Serum, Plasma or Blood by Creatinine-based formula (CKD-EPI) 01/27/2022 09:36:30 50 Below low normal >=60 (mL/min) Final eGFR is calculated based on the CKD-EPI 2020 equation Sodium 01/27/2022 09:36:30 143 135-146 (m mol/L) Final Potassium 01/27/2022 09:36:30 4.4 3.5-5.1 (m mol/L) Final Cl 01/27/2022 09:36:30 103 98-107 (mm ol/L) Final CO2 01/27/2022 09:36:30 27 22-32 (mmo l/L) Final Anion gap 01/27/2022 09:36:30 13 7-15 (mmol /L) Final Glucose 01/27/2022 09:36:30 109 70-120 (mg /dL) Final Albumin 01/27/2022 09:36:30 4.3 3.8-5.0 (g /dL) Final AST (Aspartate aminotransferase) 01/27/2022 09:36:30 23 10-50 (U/L) Final Alk Phos 01/27/2022 09:36:30 93 35-130 (U/ L) Final Bilirubin, Total 01/27/2022 09:36:30 0.8 <=1 .2 (mg/dL) Final Calcium 01/27/2022 09:36:30 10.0 8.4-10.2 ( mg/dL) Final Protein 01/27/2022 09:36:30 6.8 6.0-8.3 (g /dL) Final ALT (Alanine aminotransferase) 01/27/2022 09:36:30 14 10-50 (U/L) Final Performing Location [facility] [place] [address] [place] [address]
--- OUTSIDE RECORDS SUMMARY | 2023-09-08 00:42 | External Medical Summary ---
Author Name Unknown Address Unknown Organization K01:[facility] - [address] [facility] [address] Laboratory Report Ordering Provider Test Date Status CAROLINE BEVERLY 01/24/2022 11:28:54 Final For PreSurgery, Procedure, O B Admit, or Surveillance testing - Nasal Turbinate source preferred.

For Symptomatic testing - Nasopharyngeal source preferred.
null Observation Date Value Abnormality Reference (Units ) Status SARS Coronavirus 2 01/24/2022 11:28:54 Negative N egative Final 2018 Novel Coronavirus not d etected.

This automated test was developed and its performance characteristics determined by [employer]. It has not been cleared or approved [...] local testing authorities about requirements before travel. Performing Location [facility] - [address] [facility] [address]
--- OUTSIDE RECORDS SUMMARY | 2023-09-08 00:42 | External Medical Summary | Summary of Care ---
Author Name Unknown Organization [place] [address] Care Team Providers Care Supervisor Dental Laboratory Name Role Phone Hank Oshea MD Primary Care Provider Encounter Details Date Type Department Care Team Description 01/26/2022 Telephone Pharmacy, [facility] [place] [address] [place] [address] [facility] [address] [facility] [place] [address] Allergies No known active allergiesdocumented as of this encounter (statuses as of 01/26/2022) Medications Medication Sig Dispensed Refills Start Date End Date Status VITAMIN D 2000 UNITS PO TABS one tablet daily 0 Activ e nitroglycerin (NITROSTAT) 0.4 MG SUBLIndications:Cor onary artery disease involving [place] coronary artery of [place] heart without angina pectoris,Myocardial infarction involving other [...] Oral Tablet (Lanoxin)Indication s:Coronary artery disease involving [place] coronary artery of [place] heart without angina pectoris,Chronic atrial fibrillation [...] fibrillation 01/06/2013 CAD (coronary artery disease) 07/25/2012 [place] (myocardial infarction) 07/25/2012 documented as of this [...] encounter Miscellaneous Notes * Telephone Encounter - Cindi Davidson DO - 01/26/2022 4:06 PM EDT Ok thank you * Telephone Encounter - Haven Vallejo RPh - 01/26/2022 12:30 PM EDT Images from the original note were not included. Frank Davidson, Patient seen by coumadin clinic today and despite decreased dose INR was still supratherapeutic at 3.2. Will plan for patient to HOLD coumadin both today (01/26) and tomorrow (01/27) prior to his procedure with you 01/28. INR Result As of 01/26/2022 INR goal: 2.0-3.0 INR used for dosin.2 (01/26/2022) Warfarin Plan As of 01/26/2022 Full warfarin instructions: 01/26: Hold; 01/27: Hold; Otherwise 2.5 mg every Mon; 5 mg all other days Next INR check: 02/10/2022 Please let us know if you would like us to proceed differently. Thank you! Haven Vallejo RPh, PharmD -[employer] Application Development Team Lead Medication Therapy Disease Management 01/26/2022, 12:32 PM [phone] documented in this encounter Plan of Treatment Upcoming Encounters Date Type Specialty Care Team Description 01/28/2022 Surgery [facility]indi Davidson[facility] DO [facility] [phone] ONE LV LEAD REPLACEMENT 02/05/2022 Cardiac Studies Cardiology [facility] [address] [place], [place] [address] 02/10/2022 Anticoagulation Pharmacy Pharmacist1, [employer] 200 [place] [address] 02/16/2022 Cardiac Studies Cardiology [facility] [address] [place] [address] 03/18/2022 Cardiac Studies [facility] [address] [place], [place] [address] 04/17/2022 Office Visit Cardiology Wilmar Lay PA-C [address] [place], [place] [address] 04/20/2022 Cardiac Studies Cardiology [facility] Pacer [facility] [address] [place], [place] [address] 05/20/2022 Cardiac Studies [facility] [address] [place] [address] 06/22/2022 Cardiac Studies Cardiology [facility] [address] [place] [address] 08/04/2022 Cardiac Studies Cardiology [place] [address] [place] [address] 10/15/2022 Pharmacy Retail Service Technician, Pharmacy Reimbursement [address] [facility] [place] [address] Scheduled Procedures Name Priority Associated Diagnoses [...] Documents on File Type Date Recorded Patient Technology Manager Expl anation Advanced Directive Advanced Directive [...] Advanced Directive 01/26/2013 11:57 AM Care Teams Supervisor Dental Laboratory Relationship Specialty Start Date End Date Hank Oshea MD [address] [address] PCP - General Internal Medicine 08/13/14 documented as of this encounter
--- OUTSIDE RECORDS SUMMARY | 2023-09-08 00:43 | External Medical Summary | Summary of Care ---
Author Name Unknown Organization [place] [address] Care Team Providers Care Telecom Network Manager Name Role Phone Hank Oshea MD Primary Care Provider [phone] Reason for Visit * Reason Comments Defibrillator Clinic device is nearing R RT Encounter Details Date Type Department Care Team Description 12/12/2021 Cardiac Studies Cardiology, [facility] [place] [address] [place] [address] [place], [facility] [address] [facility] [place] [address] Ischemic cardiomyopathy*; Chronic atrial fibrillation (HCC); AICD (automatic cardioverter/defibril lator) present Allergies No known active allergiesdocumented as of this encounter (statuses as of 12/12/2021) Medications Medication Sig Dispensed Refills Start Date End Date Status VITAMIN D 2000 UNITS PO TABS one tablet daily 0 Activ e nitroglycerin (NITROSTAT) 0.4 MG SUBLIndications:Cor onary artery disease involving upper [place] coronary artery of upper [place] heart without angina pectoris,Myocardial infarction involving [...] OTHER DAY 45 Tab 4 03/24/2021 Active Warfarin Sodium 5 MG Oral Tablet (Coumadin)Indicatio ns:Atrial fibrillation (HCC) TAKE TWO TABS (10MG) BY MOUTH ON WEDNESDAY AND ONE TAB (5MG) ALL OTHER DAYS 40 Tab 11 05/12/2021 Active Additional Information Patient taking differently: 5 mg Oral DAILY, (No instructions reported), Reported on 10/06/2021 Digoxin 125 MCG Oral Tablet (Lanoxin)Indication s:Coronary artery disease involving upper [place] coronary artery of upper [place] heart without angina pectoris,Chronic atrial fibrillation [...] Tablets in the morning. 270 Tablet 3 12/02/2021 Active documented as of this encounter (statuses as of 12/12/2021) Active Problems Problem Noted Date AICD (automatic cardioverter/defibrillat or) present 02/10/2013 Heart failure, systolic, due to CAD 06/2013 Ischemic cardiomyopathy 01/06/2013 Atrial fibrillation 01/06/2013 CAD (coronary artery disease) 07/25/2012 [place] (myocardial infarction) 07/25/2012 documented as of this encounter (statuses as of 12/12/2021) Immunizations Name Administration Dates Next Due DTaP - Dipth/Tet/Acell Pertussis 07/29/2017 Seasonal Influenza, [...] encounter Progress Notes * GHULAM Pino - 12/12/2021 1:30 PM EST HEART RHYTHM DEVICE [facility] - SINGLE CHAMBER DEFIBRILLATOR -- 12/12/2021 TYPE OF VISIT:Evaluation of battery status / abnormal magnet rate Routine single chamber defibrillator follow. INDICATION: I25.5 Ischemic cardiomyopathy (primary encounter diagnosis) I48.20 Chronic atrial fibrillation (HCC) Z95.810 AICD (automatic cardioverter/defibrillator) present IMPLANTING PHYSICIAN: Dr. Gonzalez IMPLANT/DEVICE HISTORY: February 02, 2013 CURRENT SYSTEM: ICD: Medtronic, model - Eric II VR [id number] SN: [id number] RV Lead: Medtronic, Model - 6935 SN: [id number]: 02-02-2013 Abandoned leads: none ALERTS/ADVISORIES:none PATIENT EVALUATION: Symptoms:No dizziness, palpitations, syncope, or presyncope. Pocket evaluation:Left pectoral device pocket is healthy without erythema, swelling, pain, or drainage. Patient denies any problems upon questioning. Intrinsic rhythm:Atrial fibrillation. DEVICE EVALUATION: R V Pacing threshold:0.5volts at 0.4msec Sensin.0 mV Pacing impedance:551ohms Percentage paced:98.1% HVLI: 62ohms Thoracic impedance monitoring:N/A Battery:2.61volts PANCHO:2.63volts Charge time:12.8seconds Short V-V intervals:0 PVC singles counter :49.2per hour over a 10 day period.(This is a decrease.) Oral anticoagulant therapy:Coumadin, Plavix Rate/Rhythm medication: Digoxin,Metoprolol VT/VF episodes (since last evaluation):0 Past VT/VF episodes: First shock: Most recent shock: Total ICD shocks/ATP therapy: Appropriate shocks: Inappropriate shocks: ATP therapy: FINAL ICD PARAMETERS: Pacemaker mode/rate:VVIat 40bpm RV Amplitude:1.5Volts Pulse width:0.5msec VT detection: Off FVT detection: 188-231 bpm (Burst x 1, 25J, 35J x 4) VF detection: >188 bpm (ATP during charging, 25J, 35J x 5) Mode switch:OFF PARAMETER CHANGES: None IMPRESSION: Normal single chamber defibrillator function. Adequate battery reserve PLAN: Patient given a new[employer] monitoring transmission schedule for every month until next [facility].Return to [facility] Device [facility] in 7 months if the device doesn't reach ORDER RUNNER by that time. Alert tone demonstrated so the pateint knows what it will sound like when his device reaches ORDER RUNNER. Nurse: Addi Vaughn [facility] PASSENGER LOCOMOTIVE ENGINEER:Dr. Langston This patient was seen in the [...] Encounters Date Type Specialty Care Team Description 12/18/2021 Anticoagulation Pharmacy Pharmacist1, [facility] [address] [facility] [place] [address] 01/01/2022 Office Visit Cardiology Wilmar Lay PA-C [address] [facility] [place] [address] 01/12/2022 Cardiac Studies Cardiology [facility] [address] [facility] [place] [address] 01/13/2022 Office Visit Cardiology Cindi Davidson, DO [address] [facility] [place] [id number] 02/16/2022 Cardiac Studies Cardiology [facility] [address] [facility] [place] [address] 03/18/2022 Cardiac Studies Cardiology [facility] [place] [address] 04/20/2022 Cardiac Studies Cardiology [facility] [place] [address] 05/20/2022 Cardiac Studies Cardiology [facility] [address] [facility] [place] [address] 06/22/2022 Cardiac Studies Cardiology Gigi [address] [place] [address] 08/04/2022 Cardiac Studies Cardiology [facility] [address] [facility] [place] [address] 10/15/2022 Pharmacy Clinic Specialist, Pharmacy Reimbursement [address] [place] [address] Scheduled Orders Name Type Priority Associated Diagnoses Orde r Schedule SINGLE-LEAD DEFIBRILLATOR + REPROGRAM Procedures Routine Ischemic cardiomyopathy Chronic atrial fibrillation (HCC) AICD (automatic cardioverter/defibrilla tor) present Ordered: 12/12/2021 Health Maintenance Due Date Last Done Comments COVID-19 Vaccine (1) 1940 Pneumococcal Vaccine: 65+ Years (1 of 2 - PPSV23) 1941 Depression Screening, Annual for Pts 12 and Over 1946 Zoster Vaccines (1 of 2) 1984 Influenza Vaccine (FLU shot) (#1) 2021 07/29/2017, [...] Documents on File Type Date Recorded Patient Haz Tech Expl anation Advanced Directive Advanced Directive Advanced [...] Advanced Directive 01/26/2013 11:57 AM Care Teams Telecom Network Manager Relationship Specialty Start Date End Date Hank Oshea MD [address] [place] [address] PCP - General Internal Medicine 08/13/14 documented as of this encounter
--- OUTSIDE RECORDS SUMMARY | 2023-09-08 00:43 | External Medical Summary | Summary of Care ---
Author Name Unknown Organization [place] [address] Care Team Providers Care Lap Cutter Name Role Phone Hank Oshea MD Primary Care Provider [phone] Reason for Visit * Reason Comments Patient Assistance Program Encounter Details Date Type Department Care Team Description 11/25/2021 Pharmacy Pharmacy, [place] [address] [place] [address] Coordinator, Pharmacy Reimbursement [address] [place], [place] [id number] Atrial fibrillation, unspecified type (HCC)* Allergies No known active allergiesdocumented as of this encounter (statuses as of 11/25/2021) Medications Medication Sig Dispensed Refills Start Date End Date Status VITAMIN D 2000 UNITS PO TABS one tablet daily 0 Activ e nitroglycerin (NITROSTAT) 0.4 MG SUBLIndications:Cor onary artery disease involving [place] coronary artery of [place] heart without angina pectoris,Myocardial infarction involving other [...] mcg by mouth daily. 3 07/30/2019 Active Furosemide 20 MG Oral Tablet (Lasix)Indications: Heart failure, systolic, due to CAD (HCC) Take 1 tablet by mouth once daily 90 Tab 4 03/24/2021 Active Metoprolol Succinate ER 50 MG Oral [...] Oral Tablet (Lanoxin)Indication s:Coronary artery disease involving [place] coronary artery of [place] heart without angina pectoris,Chronic atrial fibrillation (HCC) [...] a day. 20 Capsule 0 10/21/2021 Active documented as of this encounter (statuses as of 11/25/2021) Active Problems Problem Noted Date AICD (automatic cardioverter/defibrillat or) present 02/10/2013 Heart failure, systolic, due to CAD 06/2013 Ischemic cardiomyopathy 01/06/2013 Atrial fibrillation 01/06/2013 CAD (coronary artery disease) 07/25/2012 [place] (myocardial infarction) 07/25/2012 documented as of this encounter (statuses as of 11/25/2021) Immunizations Name Administration Dates Next Due DTaP [...] encounter Progress Notes * KEITH Palomares - 11/25/2021 3:35 PM EST Follow up needs to be made topatient Coverage:[facility] a and b[facility] [address] [facility] [place] [address] Patient Phone Numbers RX:Entresto 11/25-Recvd pt raj message, pt approved with [employer] until 10/31/22 per approval office recvd and scanned. Added pt to sched for end of year for re-enrollment. KEITH Palomares Pharmaceutical Sizing Machine Tender 11/25/2021, 3:36 PM documented in this encounter Plan of Treatment Upcoming Encounters Date Type Specialty Care Team Description 12/02/2021 Cardiac Studies Cardiology [facility] [address] [place] [address] 12/02/2021 Office Visit Cardiology Wilmar Lay PA-C [address] [place] [address] 12/18/2021 Anticoagulation Pharmacy Pharmacist1, [facility] [address] [place] [address] 10/15/2022 Pharmacy Power Operator, Pharmacy Reimbursement [address] [place] [address] Health Maintenance Due Date Last Done Comments COVID-19 Vaccine (1) 1940 Pneumococcal Vaccine: 65+ Years (1 of 2 - PPSV23) 1940 Depression Screening, Annual for Pts 12 and Over 1946 Zoster Vaccines (1 of 2) 1984 Influenza Vaccine (FLU shot) (#1) 2021 07/29/2017, 08/08/2012 DIABETES SCREEN EVERY 3 YRS-AGE 45 AND [...] Documents on File Type Date Recorded Patient Welding Lead Burner Expl anation Advanced Directive Advanced Directive Advanced [...] Advanced Directive 01/26/2013 11:57 AM Care Teams Lap Cutter Relationship Specialty Start Date End Date Hank Oshea MD [address] [facility] [address] [place] [address] [place] [address] PCP - General Internal Medicine 08/13/14 documented as of this encounter
--- OUTSIDE RECORDS SUMMARY | 2023-09-08 00:43 | External Medical Summary | Summary of Care ---
Author Name Unknown Organization [place] [address] Care Team Providers Care Bush And Vine Fruit Crop Farmer Name Role Phone Hank Oshea MD Primary Care Provider [phone] Reason for Visit * Reason Comments Follow Up Encounter Details Date Type Department Care Team Description 12/02/2021 Office Visit Cardiology, [facility] [address] [place] [address] Wilmar Lay PA-C [address] [facility] [place] [address] Ischemic cardiomyopathy*; Chronic atrial fibrillation (HCC); AICD (automatic cardioverter/defibrill ator) present; Coronary artery disease involving [place] coronary artery of still[place] heart without angina pectoris; Heart failure, systolic, due to CAD (HCC) Allergies No known active allergiesdocumented as of this encounter (statuses as of 12/04/2021) Medications Medication Sig Dispensed Refills Start Date End Date Status VITAMIN D 2000 UNITS PO TABS one tablet daily 0 Activ e nitroglycerin (NITROSTAT) 0.4 MG SUBLIndications:C oronary artery disease involving [place] coronary artery of [place] heart without angina pectoris,Myocardi al infarction involving [...] OTHER DAY 45 Tab 4 1 Active Warfarin Sodium 5 MG Oral Tablet (Coumadin)Indicat ions:Atrial fibrillation (HCC) TAKE TWO TABS (10MG) BY MOUTH ON WEDNESDAY AND ONE TAB (5MG) ALL OTHER DAYS 40 Tab 11 1 Active Additional Information Patient taking differently: 5 mg Oral DAILY, (No instructions reported), Reported on 10/06/2021 Digoxin 125 MCG Oral Tablet (Lanoxin)Indicati ons:Coronary artery disease involving [place] coronary artery of [place] heart without angina pectoris,Chronic atrial fibrillation (HCC) [...] 2 Active Furosemide 20 MG Oral Tablet (Lasix)Indication s:Heart failure, systolic, due to CAD (HCC) Take 1 tablet by mouth once daily 90 Tab 4 12/02/19 22 Discontinued documented as of this encounter (statuses as of 12/04/2021) Active Problems Problem Noted Date AICD (automatic cardioverter/defibrillat or) present 02/10/2013 Heart failure, systolic, due to CAD 06/2013 Ischemic cardiomyopathy 01/06/2013 Atrial fibrillation 01/06/2013 CAD (coronary artery disease) 07/25/2012 [place] (myocardial infarction) 07/25/2012 documented as of this encounter (statuses as of 12/04/2021) Immunizations Name Administration Dates Next Due DTaP [...] Sign Reading Time Taken Comments Blood Pressure 110/58 12/02/2021 2:22 PM EST Pulse 65 12/02/2021 2:22 PM EST Temperature 35.7 C (96.3 F) 12/02/2021 2:22 PM ES T Respiratory Rate 12 12/02/2021 2:22 PM EST Oxygen Saturation - - Inhaled Oxygen Concentration - - Weight 84 kg (185 lb 1.9 oz) 12/02/2021 2:22 PM EST Height - - Body Mass Index 26.56 03/21/2018 12:57 PM EDT documented in this encounter Progress Notes * Wilmar Lay PA-C - 12/02/2021 2:34 PM EST History of Present Illness: Lucian Reynolds Neo Whitney Is a very pleasant 86-year-old male here today for close cardiology follow-up. Patient returns today feeling okay. He continues to have a cough productive of mucus, stable dyspnea, ongoing lower extremity peripheral edema. Weight is up 2 lb from last evaluation in this office. No chest pain. No palpitations. No device alarms or discharges. No orthopnea. No PND. No positional dizziness. No syncope. No melena. No hematochezia. Patient Active Problem List Diagnosis Code CAD (coronary artery disease) I25.10 [place] (myocardial infarction) ([facility]) I21.9 Heart failure, systolic, due to CAD ([facility]) I50.20, I25.10 Ischemic cardiomyopathy I25.5 Atrial fibrillation ([facility]) I48.91 AICD (automatic cardioverter/defibrillator) present Z95.810 [...] Take 75 mcg by mouth daily. 3 Furosemide 20 MG Oral Tablet (Lasix) Take 1 tablet by mouth once daily (Patient taking differently: 40 mg . ) 90 Tab 4 Metoprolol Succinate ER 50 MG Oral Tablet Extended Release 24 Hour (toPROL XL) Take 1 tablet bymouth twice daily 182 Tab 3 Rosuvastatin Calcium 5 MG Oral Tablet (Crestor) TAKE 1 TABLET BY MOUTH EVERY OTHER DAY 45 Tab 4 Warfarin Sodium 5 MG [...] each am and pm 90 Tablet 3 Doxycycline Hyclate 100 MG Oral Capsule Take 1 Capsule by mouth 2 times a day. (Patient not taking: Reported on 12/02/2021 ) 20 Capsule 0 No current facility-administered medications for this visit. OBJECTIVE/PHYSICAL EXAMINATION: BP 110/58 | Pulse 65 | Temp 35.7 C (96.3 F) (Tympanic) | Resp 12 | Wt 84 kg (185 lb 1.9 oz) | BMI 26.56 kg/m | BSA 2.04 m General: A&Ox3. NAD. HENT: Normocephalic. Atraumatic. Eyes: PER. Conjunctiva pink, sclera clear. Neck: No carotid bruits. + JVD. Heart: Distant heart sounds. Irregularly irregular 80 bpm. No murmur appreciated. No rub. No gallop. PMI is nondisplaced. Lungs: Bibasilar rales. Decreased at the left base. Abdomen: +BS. Soft. Nontender. No masses or organomegaly. Extremities: 2+ left greater than right lower extremity edema. No clubbing. No cyanosis. Limited neurological [...] enlargement and mild pulmonary hypertension now present. November 02, 2021 device interrogation. [employer] Model - Eric II VR [id number] (SN: [id number]). RV Lead: Medtronic, Model - 6935 (SN: [id number]). Implant Date: 02-02-2013. Battery voltage: 2.62 V, nearing MACHINE BOBBIN WINDER. PANCHO 2.63 V. Backup pacemaker set VVI, 50 bpm. RV paced 0.2%. No VT or VF. PVC singles: 92.8per hour which is down from 489.[address] scan of the chest from October 20, 2021 independently reviewed, discussed with patient and wifetoday. ASSESSMENT: 1. Decompensated systolic congestive heart failure signs and symptoms. 2. 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 3. History of acute decompensation in the setting of elevated heart rate, receiving stenting to therecannulated left anterior descending and attempted stent into the proximal right coronary artery in May 2014. 4. Severe ischemic cardiomyopathy, with LVEF 20 to 24%. 5. Status post January 2013 ICD implantation, with dwindling battery longevity. 6. Chronic atrial fibrillation. 7. Chronic coumadin anticoagulation 8. Frequent ventricular ectopy 9. Atherosclerotic coronary disease 10. Dyslipidemia. Options discussed with patient and . Plan as outlined below. RECOMMENDATIONS/PLAN: 1. Increase furosemide from 40 mg/day to 60 mg/day. 2. Continue Entresto at 1/2 tablet twice a day for now, reconsidering titration back to one tablet twice per day at follow-up. 3. Nonfasting laboratory work and general cardiology follow-up in 3 to 4 weeks, or as needed. 4. Appointment with Electrophysiology, Dr. Davidson, RE: battery depletion, ? Future device upgrade 5. ER with emergencies. Wilmar Lay PA-C Department of Cardiology Component Latest Ref Rng & Units 02/07/2021 10/06/2021 10/20/2021 BUN 6 - 20 mg/dL 26 (H) 23 (H) 24 (H) Creatinine 0.6 - 1.2 mg/dL 1.3 (H) 1.3 (H) 1.3 (H) Estimated Glomerular Filtration Rate >=60 mL/min 49.4 (L) 50 (L) 50 (L) Sodium 135 - 146 mmol/L 141 141 142 Potassium 3.5 - 5.1 mmol/L 5.0 4.9 4.9 Chloride 98 - 107 mmol/L 104 104 104 CO2 22 - 32 mmol/L 27 27 29 Anion Gap 7 - 15 mmol/L 10 10 9 Glucose 70 - 120 mg/dL 58 (L) 121 (H) 87 Albumin 3.8 - 5.0 g/dL 4.4 4.1 AST 10 - 50 U/L 30 22 Alkaline Phosphatase 35 - 130 U/L 98 109 Bilirubin, Total <=1.2 mg/dL 0.7 0.7 Calcium 8.4 - 10.2 mg/dL 10.1 9.9 9.8 Protein 6.0 - 8.3 g/dL 7.1 6.9 ALT 10 - 50 U/L 21 15 WBC 4.00 - 10.80 K/uL 6.74 RBC 4.50 - 5.25 M/uL 4.24 (L) HGB 14.0 - 16.8 g/dL 14.0 HCT 40.0 - 48.4 % 41.4 MCV 82.0 - 99.5 fL 97.6 MCH 27.0 - 34.0 pg 33.0 MCHC 32.0 - 36.0 g/dL 33.8 RDW 11.5 - 15.5 % 14.3 Plt 140 - 400 K/uL 173 MPV 6.6 - 11.1 fL 10.1 BNP (NT-PRO-BNP) <300 pg/mL 2,939 (H) Digoxin Level 0.5 - 2.0 ng/mL <0.4 (L) Magnesium 1.5 - 2.6 mg/dL 2.6 TSH 0.27 - 4.20 uIU/mL 3.11 documented in this encounter Nursing Notes * Sosa Cotter LPN - 12/02/2021 3:48 PM EST Device interrogation completed today to check for MACHINE BOBBIN WINDER. I demonstrated alert tone for pt and . Neither were able to heat it on high. Advised pt keep rescheduled appt on 12/12 for follow up. * Sosa Cotter LPN - 12/02/2021 2:21 PM EST Examination Room: 1 Name: Lucian Reynolds Neo Whitney Date of : (1935). Reason for Visit: follow up Interim Hospitalization(s): denies Problems/Concerns: none Chest Pain/SOB: denies [facility] Discussed: Not applicable [facility] is a way you can talk to your provider online through e-mail. Would you like to sign up? I can activate it for you? NO Patient was instructed to not get up [...] Encounters Date Type Specialty Care Team Description 12/12/2021 Cardiac Studies Cardiology [facility] [address] [facility] [place] [address] 12/18/2021 Anticoagulation Pharmacy Pharmacist1, [facility] [address] [facility] [address] 01/01/2022 Office Visit Cardiology Wilmar Lay PA-C [address] [facility] [place] [address] 01/13/2022 Office Visit Cardiology Cindi Davidson Gabriela, DO [facility] [id number] 10/15/2022 Pharmacy Sole Molding Machine Operator, Pharmacy Reimbursement [address] [place] [address] Health Maintenance Due Date Last [...] defibrillator in situ Coronary artery disease involving [place] coronary artery of still[place] heart without angina pectoris Heart failure, systolic, due to CAD (HCC) Unspecified systolic heart failure documented in this encounter Advance Directives Documents on File Type Date Recorded Patient Studio Receptionist Expl anation Advanced Directive Advanced Directive Advanced [...] Advanced Directive 01/26/2013 11:57 AM Care Teams Bush And Vine Fruit Crop Farmer Relationship Specialty Start Date End Date Hank Oshea MD [address] [address] PCP - General Internal Medicine 08/13/14 documented as of this encounter"
--- OUTSIDE RECORDS SUMMARY | 2023-09-08 00:43 | External Medical Summary | Summary of Care ---
Author Name Unknown Organization [place] [address] Care Team Providers Care Debate Director Name Role Phone Hank Oshea MD Primary Care Provider [phone] Reason for Visit * Reason Onset Date Comments Information 11/25/2021 Encounter Details Date Type Department Care Team Description 11/25/2021 Telephone Cardiology, [facility] [address] [place] [address] Denis Langston MD [address] [facility] [place] [address] Information Allergies No known active allergiesdocumented as of this encounter (statuses as of 11/26/2021) Medications Medication Sig Dispensed Refills Start Date End Date Status VITAMIN D 2000 UNITS PO TABS one tablet daily 0 Activ e nitroglycerin (NITROSTAT) 0.4 MG SUBLIndications:Cor onary artery disease involving [place] coronary artery of [place] heart without angina pectoris,Myocardial infarction involving other [...] Oral Tablet (Lanoxin)Indication s:Coronary artery disease involving [place] coronary artery of [place] heart without angina pectoris,Chronic atrial fibrillation (HCC) [...] as of this encounter (statuses as of 11/26/2021) Active Problems Problem Noted Date AICD (automatic cardioverter/defibrillat or) present 02/10/2013 Heart failure, systolic, due to CAD 06/2013 Ischemic cardiomyopathy 01/06/2013 Atrial fibrillation 01/06/2013 CAD (coronary artery disease) 07/25/2012 [place] (myocardial infarction) 07/25/2012 documented as of this encounter (statuses as of 11/26/2021) Immunizations Name Administration Dates Next Due DTaP [...] encounter Miscellaneous Notes * Telephone Encounter - Rafiq Miramontes RN - 11/25/2021 12:27 PM EST Received a letter from [employer] and it stated the patient has been approved for Entresto until 10/31/2022. Copy of the letter sent to [facility] documented in this encounter Plan of Treatment Upcoming Encounters Date Type Specialty Care Team Description 12/02/2021 [facility] [address] [place] [address] 12/02/2021 Office Visit Cardiology Wilmar Lay PA-C [address] [place] [address] 12/18/2021 Anticoagulation Pharmacy Pharmacist1, [facility] [address] 10/15/2022 Pharmacy Book Sorter, [facility]imbursement [address] [facility] [address] Health Maintenance Due Date Last Done [...] Documents on File Type Date Recorded Patient Apprenticeship Training Representative Expl anation Advanced Directive Advanced Directive Advanced [...] Advanced Directive 01/26/2013 11:57 AM Care Teams Debate Director Relationship Specialty Start Date End Date Hank Oshea MD [address] [address] PCP - General Internal Medicine 08/13/14 documented as of this encounter
--- OUTSIDE RECORDS SUMMARY | 2023-09-08 00:43 | External Medical Summary ---
Author Name Unknown Address Unknown Organization [id number]:[facility] - [facility] [address] [place] [address] Laboratory Report Ordering Provider Test Date Status ROXANA MAYA 01/01/2022 15:46:06 Final Observation Date Value Abnormality Reference (Units ) Status BUN 01/01/2022 15:46:06 30 Above high normal 6-20 (mg/dL) Final Creatinine 01/01/2022 15:46:06 1.5 Above high normal 0.6-1.2 (mg/dL) Final Glomerular filtration rate/1.73 sq M.predicted [Volume Rate/Area] in Serum, Plasma or Blood by Creatinine-based formula (CKD-EPI) 01/01/2022 15:46:06 46 Below low normal >=60 (mL/min) Final eGFR is calculated based on the CKD-EPI 2020 equation Sodium 01/01/2022 15:46:06 141 135-146 (m mol/L) Final Potassium 01/01/2022 15:46:06 5.2 Above high normal 3. 5-5.1 (mmol/L) Final Cl 01/01/2022 15:46:06 102 98-107 (mm ol/L) Final CO2 01/01/2022 15:46:06 29 22-32 (mmo l/L) Final Anion gap 01/01/2022 15:46:06 10 7-15 (mmol /L) Final Glucose 01/01/2022 15:46:06 81 70-120 (mg /dL) Final Calcium 01/01/2022 15:46:06 9.9 8.4-10.2 ( mg/dL) Final Performing Location [facility] - [address] [place] [address]
--- OUTSIDE RECORDS SUMMARY | 2023-09-08 00:43 | External Medical Summary | Summary of Care ---
Author Name Unknown Organization [place] [address] Care Team Providers Care Tire Center Supervisor Name Role Phone Hank Oshea MD Primary Care Provider [phone] Reason for Visit * Reason Comments Dosage Adjustment In Person (Anticoag Cl inic) Encounter Details Date Type Department Care Team Description 12/18/2021 Anticoagulation Pharmacy, [facility] [address] [place] [address] Pharmacist1, [facility] [address] [place] [address] Atrial fibrillation, unspecified type (HCC)*; Myocardial infarction, unspecified [place] type, unspecified artery (HCC); Anticoagulation management encounter; 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 Allergies No known active allergiesdocumented as of this encounter (statuses as of 12/18/2021) Medications Medication Sig Dispensed Refills Start Date End Date Status VITAMIN D 2000 UNITS PO TABS one tablet daily 0 Activ e nitroglycerin (NITROSTAT) 0.4 MG SUBLIndications:Cor onary artery disease involving [place] coronary artery of [place] heart without angina pectoris,Myocardial infarction involving other [...] Tablet (Lanoxin)Indication s:Coronary artery disease involving [place] coronary artery of [place] heart without angina pectoris,Chronic atrial fibrillation (HCC) [...] as of this encounter (statuses as of 12/18/2021) Active Problems Problem Noted Date AICD (automatic cardioverter/defibrillat or) present 02/10/2013 Heart failure, systolic, due to CAD 06/2013 Ischemic cardiomyopathy 01/06/2013 Atrial fibrillation 01/06/2013 CAD (coronary artery disease) 07/25/2012 [place] (myocardial infarction) 07/25/2012 documented as of this encounter (statuses as of 12/18/2021) Immunizations Name Administration Dates Next Due DTaP [...] of this encounter Progress Notes * Luiza Masters RPh - 12/18/2021 11:31 AM EST Medication Therapy Disease Management - Anticoagulation Patient: Lucian Larson Jr. : 1935 Current Warfarin Dose As of 12/18/2021 Warfarin maintenance plan: 5 mg (5 mg x 1) every day Patient-Reported Symptoms: Patient Findings Negatives: Signs/symptoms of thrombosis, Signs/symptoms of bleeding, Change in health, Change in alcohol use, Change in activity, Upcoming invasive procedure, Missed doses, Extra doses, Change in medications, Change in diet/appetite, Bruising INR Result As of 12/18/2021 INR goal: 2.0-3.0 INR used for dosin.0 (12/18/2021) Warfarin Plan As of 12/18/2021 Full warfarin instructions: 5 mg every day Next INR check: 01/29/2022 Additional Dosing Information: Repeat PT/INR in 6 week(s) Weekly dose: not changed Luiza Paz RPh Clinical Pharmacist 12/18/2021, 11:31 AM documented in this encounter Plan of Treatment Upcoming Encounters Date Type Specialty Care Team Description 01/01/2022 Office Visit Cardiology Wilmar Lay PA-C [address] [place] [address] 01/12/2022 Cardiac Studies Cardiology Gigi Pacer [facility] Antonella Morrell [address] [place] [address] 01/13/2022 Office Visit Cardiology Cindi Davidson, DO [address] [facility] [place] [id number] 01/29/2022 Anticoagulation Pharmacy Pharmacist1, [facility] 200 [place] [address] 02/16/2022 Cardiac Studies Cardiology [facility] Pacer [facility] Antonella Morrell [address] [place] [address] 03/18/2022 Cardiac Studies Cardiology Gigi Pacer [facility] Antonella Morrell [address] [place] [address] 04/20/2022 Cardiac Studies Cardiology Gigi Pacer [facility] Antonella Morrell [address] [place] [address] 05/20/2022 Cardiac Studies Cardiology Gigi Pacer [facility] Antonella Morrell [address] [place] [address] 06/22/2022 Cardiac Studies Cardiology Gigi Pacer [facility] Antonella Morrell [address] [place] [address] 08/04/2022 Cardiac Studies Cardiology Marcelino, [facility] [address] [facility] [place] [address] 10/15/2022 Pharmacy Medical Unit Secretary, Pharmacy Reimbursement [address] [facility] [place] [address] Health Maintenance Due Date Last Done Comments [...] Comments INR FINGERSTICK, POINT OF CARE STAT 12/18/2021 11:34 AM EST Atrial fibrillation, unspecified type (HCC) Myocardial infarction, unspecified [place] type, unspecified artery (HCC) Anticoagulation management encounter senior care 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 therapy documented in this encounter Results * INR FINGERSTICK, POINT OF CARE (12/18/2021 11:34 AM EST) Fingerstick INR 3.0 INR [facility]-02 Specimen Blood Narrative [facility] [place] [facility] - 12/18/2021 11:46 AM EST Therapeutic ranges for non-operative patients: Prophylaxsis/treatment of DVT: (Range:2.0-3.0) Treatment of pulmonary embolism:(Range:2.0-3.0) Prevention of systemic embolism from: -tissue heart valves -acute myocardial infarction -valvular heart disease -atrial fibrillation (Range: 2.0-3.0) Mechanical prosthetic valves: (Range: 2.5-3.5) Performing Organization Address City/State/[facility] Co de Phone Number [facility] [place] [address] [place] [address] documented in this encounter Visit Diagnoses Diagnosis Atrial fibrillation, unspecified type (HCC)- Primary Myocardial infarction, unspecified [place] type, unspecified artery (HCC) Anticoagulation management encounter Encounter for therapeutic drug monitoring 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
--- OUTSIDE RECORDS SUMMARY | 2023-09-08 00:43 | External Medical Summary | Summary of Care ---
Author Name Unknown Organization [place] [address] Care Team Providers Care Miller Wood Flour Name Role Phone Hank Oshea MD Primary Care Provider [phone] Encounter Details Date Type Department Care Team Description 12/02/2021 Result Scan Unspecified Department <No scans attached> Allergies No known active allergiesdocumented as of this encounter (statuses as of 12/03/2021) Medications Medication Sig Dispensed Refills Start Date [...] as of this encounter (statuses as of 12/03/2021) Active Problems Problem Noted Date AICD (automatic cardioverter/defibrillat or) present 02/10/2013 Heart failure, systolic, due to CAD 06/2013 Ischemic cardiomyopathy 01/06/2013 Atrial fibrillation 01/06/2013 CAD (coronary artery disease) 07/25/2012 [place] (myocardial infarction) 07/25/2012 documented as of this encounter (statuses as of 12/03/2021) Immunizations Name Administration Dates Next Due DTaP [...] Description 12/12/2021 Cardiac Studies Cardiology Isi Yu [facility] [address] [place] [address] 12/18/2021 Anticoagulation Pharmacy Pharmacist1, [facility] [address] [place] [address] 01/01/2022 Office Visit Cardiology Wilmar Lay PA-C [address] [place] [address] 01/13/2022 Office Visit Cardiology Cindi Davidson, DO [address] [place], [place] [phone] 10/15/2022 Pharmacy Therapist Rrt, Pharmacy Reimbursement [address] [place] [address] Health Maintenance Due Date Last [...] Date/Time Associated Diagnosis Comments CARDIOLOGY SCANNED RESULT 12/02/2021 documented in this encounter Results * CARDIOLOGY SCANNED RESULT (12/02/2021) Specimen Narrative documented in this encounter Advance Directives Documents on File Type Date Recorded Patient Used Car Lot Attendant Expl anation Advanced Directive Advanced Directive Advanced [...] Advanced Directive 01/26/2013 11:57 AM Care Teams Miller Wood Flour Relationship Specialty Start Date End Date Hank Oshea MD [address] [address] PCP - General Internal Medicine 08/13/14 documented as of this encounter
--- OUTSIDE RECORDS SUMMARY | 2023-09-08 00:43 | External Medical Summary ---
Author Name Unknown Address Unknown Organization K09:[facility] [place] [address] Laboratory Report Ordering Provider Test Date Status SHANIA MEYER 12/18/2021 11:34:32 Final Observation Date Value Abnormality Reference (Units ) Status INR in Capillary blood by Coagulation assay 12/18/2021 11:34:32 3.0 (INR) Final Performing Location [facility] [place] [address]
--- OUTSIDE RECORDS SUMMARY | 2023-09-08 00:44 | External Medical Summary | Summary of Care ---
Author Name Unknown Organization [place] [address] Care Team Providers Care Oracle Fusion Middleware Developer Name Role Phone Hank Oshea MD Primary Care Provider [phone] Reason for Visit * Reason Comments Patient Assistance Program Encounter Details Date Type Department Care Team Description 11/18/2021 Pharmacy Pharmacy, [place] [address], [place] [phone] Coordinator, Pharmacy Reimbursement [address] [place], [place] [phone] Ischemic cardiomyopathy* Allergies No known active allergiesdocumented as of this encounter (statuses as of 11/20/2021) Medications Medication Sig Dispensed Refills Start Date End Date Status VITAMIN D 2000 UNITS PO TABS one tablet daily 0 Activ e nitroglycerin (NITROSTAT) 0.4 MG SUBLIndications:Cor onary artery disease involving [place] coronary artery of [...] Oral Tablet (Lanoxin)Indication s:Coronary artery disease involving [place] coronary artery of [...] as of this encounter (statuses as of 11/20/2021) Active Problems Problem Noted Date AICD (automatic cardioverter/defibrillat or) present 02/10/2013 Heart failure, systolic, due to CAD 06/2013 Ischemic cardiomyopathy 01/06/2013 Atrial fibrillation 01/06/2013 CAD (coronary artery disease) 07/25/2012 [place] (myocardial infarction) 07/25/2012 documented as of this encounter (statuses as of 11/20/2021) Immunizations Name Administration Dates Next Due DTaP [...] as of this encounter Progress Notes * Ana Hagen, KEITH - 11/18/2021 11:29 AM EST Follow up needs to be made topatient Coverage:mdcr a and b/[address] [facility] [address] Patient Phone Numbers RX:Entresto Patient needs to re-enroll w/ [employer] pap, will call and assess for pace/pacenet first, then pursue pap if needed. 10/07-Tried to call patient, keeps ringing and then automated message stating mailbox not in service. Mailed pap forms for [employer] to home with return envelope. Will attempt again in two week to check on forms. 10/21-called pt, confirmed he did recv forms in mail and brought to 's office in which they tld pt they will complete and fax in. Will check back next week to check for forms to be scannedand ensure were faxed. 10/30-Unable to locate any scan of forms in chart, called Dr. Lay's office spoke with Rachana who reached out to nurse in office, navdeep forms were completed and faxed. He will send to me so I can follow up with Brunilda on status. Added pt to my schedule for next week to call Brunilda and check status 11/06-Call Brunilda spoke with Fredrick she doesn't see anytihng on file, advsd will re-fax as I cannot account for the initial fax sent by drs office. Refaxed, rep advsd 7-10 days to follow up and check status 11/18-Called [employer]-per automated message, they will have re-enrollment decisions made by end of December and will contact patient at the time their re- enrollment is processed. Spoke with spouse made aware of time frame, Added to sched to follow up in Dec. KEITH Palomares Pharmaceutical Applications Engineering Manager 11/18/2021, 11:56 AM documented in this encounter Plan of Treatment Upcoming Encounters Date Type Specialty Care Team Description 12/02/2021 Cardiac Studies Cardiology Isi Yu [facility] [address] [place] [address] 12/02/2021 Office Visit Cardiology Wilmar Lay PA-C [address] [place] [address] 12/18/2021 Anticoagulation Pharmacy Pharmacist1, [facility] [address] [facility], [place] [phone] Health Maintenance Due Date Last Done Comments [...] specified forms of chronic ischemic heart disease documented in this encounter Advance Directives Documents on File Type Date Recorded Patient Hot Sealing Machine Operator Expl anation Advanced Directive Advanced [...] Advanced Directive 01/26/2013 11:57 AM Care Teams Oracle Fusion Middleware Developer Relationship Specialty Start Date End Date Hank Oshea MD [address] [place] [address] PCP - General Internal Medicine 08/13/14 documented as of this encounter
--- OUTSIDE RECORDS SUMMARY | 2023-09-08 00:44 | External Medical Summary | Summary of Care ---
Author Name Unknown Organization [place] [address] Care Team Providers Care Clothing Examiner Name Role Phone Hank Oshea MD Primary Care Provider [phone] Reason for Visit * Reason Comments Patient Assistance Program Encounter Details Date Type Department Care Team Description 11/18/2021 Pharmacy Pharmacy, [place] [address] [place] [address] Coordinator, Pharmacy Reimbursement [address] [place], [place] [phone] Ischemic cardiomyopathy* Allergies No known active allergiesdocumented as of this encounter (statuses as of 11/18/2021) Medications Medication Sig Dispensed Refills Start Date End Date Status VITAMIN D 2000 UNITS PO TABS one tablet daily 0 Activ e nitroglycerin (NITROSTAT) 0.4 MG SUBLIndications:Cor onary artery disease involving [place] coronary artery [...] Oral Tablet (Lanoxin)Indication s:Coronary artery disease involving [place] coronary artery [...] as of this encounter (statuses as of 11/18/2021) Active Problems Problem Noted Date AICD (automatic cardioverter/defibrillat or) present 02/10/2013 Heart failure, systolic, due to CAD 06/2013 Ischemic cardiomyopathy 01/06/2013 Atrial fibrillation 01/06/2013 CAD (coronary artery disease) 07/25/2012 [place] (myocardial infarction) 07/25/2012 documented as of this encounter (statuses as of 11/18/2021) Immunizations Name Administration Dates Next Due DTaP [...] to be made topatient Coverage:mdcr a and b/[address] [facility] [address] Patient Phone Numbers [email or web address]:Entresto Patient needs to [...] the time their re- enrollment is processed. Added to sched to follow up in Dec. KEITH Palomares Pharmaceutical Skid Worker 11/18/2021, 11:56 AM documented in this encounter Plan of Treatment Upcoming Encounters Date Type Specialty Care Team Description 11/20/2021 Anticoagulation Pharmacy Pharmacist1, [facility] [address] [facility] [address] 12/02/2021 Cardiac Studies Cardiology Isi [facility] [address] [place] [address] 12/02/2021 Office Visit Cardiology Wilmar Lay PA-C [address] [place] [address] Health Maintenance Due Date Last Done Comments [...] Documents on File Type Date Recorded Patient Boiler Attendant Expl anation Advanced Directive Advanced Directive [...] Advanced Directive 01/26/2013 11:57 AM Care Teams Clothing Examiner Relationship Specialty Start Date End Date Hank Oshea MD [address] [address] PCP - General Internal Medicine 08/13/14 documented as of this encounter
--- OUTSIDE RECORDS SUMMARY | 2023-09-08 00:44 | External Medical Summary | Summary of Care ---
Author Name Unknown Organization [place] [address] Care Team Providers Care Visual Display Associate Name Role Phone Hank Oshea MD Primary Care Provider [phone] Reason for Visit * Reason Comments Patient Assistance Program Encounter Details Date Type Department Care Team Description 11/06/2021 Pharmacy Pharmacy, [place] [address] [place] [address] Coordinator, Pharmacy Reimbursement [address] [place], [place] [phone] Ischemic cardiomyopathy* Allergies No known active allergiesdocumented as of this encounter (statuses as of 11/06/2021) Medications Medication Sig Dispensed Refills Start Date End Date Status VITAMIN D 2000 UNITS PO TABS one tablet daily 0 Activ e nitroglycerin (NITROSTAT) 0.4 MG SUBLIndications:Cor onary artery disease involving [place] coronary artery of [place] heart without angina pectoris,Myocardial infarction involving other [...] Oral Tablet (Lanoxin)Indication s:Coronary artery disease involving [place] coronary artery of [place] heart without angina pectoris,Chronic atrial fibrillation (HCC) [...] as of this encounter (statuses as of 11/06/2021) Active Problems Problem Noted Date AICD (automatic cardioverter/defibrillat or) present 02/10/2013 Heart failure, systolic, due to CAD 06/2013 Ischemic cardiomyopathy 01/06/2013 Atrial fibrillation 01/06/2013 CAD (coronary artery disease) 07/25/2012 [place] (myocardial infarction) 07/25/2012 documented as of this encounter (statuses as of 11/06/2021) Immunizations Name Administration Dates Next Due DTaP [...] Progress Notes * Ana Hagen, KEITH - 11/06/2021 10:17 AM EST Follow up needs to be made topatient Coverage:mdcr a and b/[address] [facility] [address] Patient Phone Numbers [email or web address]:Entresto Patient needs to [...] 7-10 days to follow up and check status. KEITH Palomares Pharmaceutical Process Engineering Manager 11/06/2021, 2:11 PM documented in this encounter Plan of Treatment Upcoming Encounters Date Type Specialty Care Team Description 11/17/2021 Anticoagulation Pharmacy Pharmacist1, [facility] [address] [place] [address] 11/18/2021 Pharmacy Tram Operator, Pharmacy Reimbursement [address] [facility] [place] [phone] 12/02/2021 [facility] [address] [facility] [place] [address] 12/02/2021 Office Visit Cardiology Wilmar Lay PA-C [address] [facility] [place] [place] [address] Health Maintenance Due Date Last Done Comments [...] Documents on File Type Date Recorded Patient Home Service Consultant Expl anation Advanced Directive Advanced Directive Advanced [...] Advanced Directive 01/26/2013 11:57 AM Care Teams Visual Display Associate Relationship Specialty Start Date End Date Hank Oshea MD [address] [address] PCP - General Internal Medicine 08/13/14 documented as of this encounter
--- OUTSIDE RECORDS SUMMARY | 2023-09-08 00:44 | External Medical Summary ---
Author Name Unknown Address Unknown Organization K09:[facility] [place] [address] Laboratory Report Ordering Provider Test Date Status SHANIA MEYER 11/20/2021 11:42:28 Final Observation Date Value Abnormality Reference (Units ) Status INR in Capillary blood by Coagulation assay 11/20/2021 11:42:28 3.7 (INR) Final Performing Location [facility] [place] [address]
--- OUTSIDE RECORDS SUMMARY | 2023-09-08 00:44 | External Medical Summary | Summary of Care ---
Author Name Unknown Organization [facility] [address] Care Team Providers Care Airveyor Operator Name Role Phone Hank Oshea MD Primary Care Provider [phone] Reason for Visit * Reason Comments Defibrillator Clinic Encounter Details Date Type Department Care Team Description 11/03/2021 Cardiac Studies Cardiology, [facility] [address] [facility] [place] [address] [place], [facility]er [facility] [address] [facility] [place] [address] Ischemic cardiomyopathy*; Chronic atrial fibrillation (HCC); AICD (automatic cardioverter/defibril lator) present Allergies No known active allergiesdocumented as of this encounter (statuses as of 11/03/2021) Medications Medication Sig Dispensed Refills Start Date End Date Status VITAMIN D 2000 UNITS PO TABS one tablet daily 0 Activ e nitroglycerin (NITROSTAT) 0.4 MG SUBLIndications:Cor onary artery disease involving [place] coronary artery of [place] heart without angina pectoris,Myocardial infarction involving other [...] Oral Tablet (Lanoxin)Indication s:Coronary artery disease involving [place] coronary artery of [place] heart without angina pectoris,Chronic atrial fibrillation (HCC) [...] as of this encounter (statuses as of 11/03/2021) Active Problems Problem Noted Date AICD (automatic cardioverter/defibrillat or) present 02/10/2013 Heart failure, systolic, due to CAD 06/2013 Ischemic cardiomyopathy 01/06/2013 Atrial fibrillation 01/06/2013 CAD (coronary artery disease) 07/25/2012 [place] (myocardial infarction) 07/25/2012 documented as of this encounter (statuses as of 11/03/2021) Immunizations Name Administration Dates Next Due DTaP [...] encounter Progress Notes * GHULAM Pino - 11/03/2021 9:08 AM EST REMOTE MONITORING TRANSMISSION - DEFIBRILLATOR -- 11/03/2021 TYPE OF VISIT: This is a scheduled remote monitoring transmission. INDICATION: I25.5 Ischemic cardiomyopathy (primary encounter diagnosis) I48.20 Chronic atrial fibrillation (HCC) Z95.810 AICD (automatic cardioverter/defibrillator) present IMPLANTING PHYSICIAN:Dre Gonzalez M.D. IMPLANT/DEVICE HISTORY:02/02/2013 CURRENT SYSTEM: ICD:MedtronicModel:[id number] SN:[id number] RV lead:MedtronicModel:[id number] SN:[id number] Abandoned leads:None ALERTS/ADVISORIES:None PATIENT EVALUATION: Presenting rhythm :RV sensed. DEVICE EVALUATION: R V Auto threshold: Not measured Sensin.4mV Pacing impedance:532ohms Percentage paced:0.2% HVLI:60ohms Battery:2.62volts PANCHO:2.63volts Charge time:12.8seconds Short V-V intervals:1 PVC singles counter :92.8per hour over a35day period. (this is a decrease) Thoracic impedance monitoring:N/A VT/VF episodes (since last evaluation):0 Past VT/VF episodes: First shock:02/02/2013with implant procedure. Most recent shock:same Total ICD shocks/ATP therapy: Appropriate shocks:1 Inappropriate shocks:0 ATP therapy:0 FINAL ICD PARAMETERS: Pacemaker mode/rate:[id number] RV Amplitude:1.5volts Pulse width:0.5msec VT detection:OFF FVT detection:ON Rate - 188- 231bpm(Burst (1), 25joules, 35 joules x 4 ) VF detection:ON Rate - 188bpm ( ATP during charging,25 joules,35 joules x5) Mode switch:Not available IMPRESSION: Normal defibrillator function. Battery is nearing STRATEGIC MARKETING SPECIALIST PLAN: The patient is scheduled for an [facility] visit in 1 month to monitor device longevity. Nurse: Addi Vaughn [facility] PULP MAKER: Dr. Langston This patient was interrogated remotely [...] Encounters Date Type Specialty Care Team Description 11/06/2021 Pharmacy Commercial Sales Representative, Pharmacy Reimbursement [address] [place] [address] 11/17/2021 Anticoagulation Pharmacy Pharmacist1, [facility] [address] [place] [address] 12/02/2021 Office Visit Cardiology [facility] [place] [address] 12/04/2021 Cardiac Studies Cardiology [place], [facility] 132 [facility] [place] [address] Scheduled Orders Name Type Priority Associated Diagnoses Orde r Schedule DEFIBRILLATOR REMOTE INTERROGATION EVAL/INTERP,TO 90D Procedures Routine Ischemic cardiomyopathy Chronic atrial fibrillation (HCC) AICD (automatic cardioverter/defibrilla tor) present Ordered: 11/03/2021 PACER/ICD REMOTE DATA CAPTURE/TECH REVIEW,90D Procedures Routine Ischemic cardiomyopathy Chronic atrial fibrillation (HCC) AICD (automatic cardioverter/defibrilla tor) present Ordered: 11/03/2021 Health Maintenance Due Date Last Done Comments [...] Documents on File Type Date Recorded Patient Natural Gas Basis Trader Expl anation Advanced Directive Advanced Directive Advanced [...] Advanced Directive 01/26/2013 11:57 AM Care Teams Airveyor Operator Relationship Specialty Start Date End Date Hank Oshea MD [address] [place] [address] [place], [place] [address] PCP - General Internal Medicine 08/13/14 documented as of this encounter
--- OUTSIDE RECORDS SUMMARY | 2023-09-08 00:44 | External Medical Summary | Summary of Care ---
Author Name Unknown Organization [place] [address] Care Team Providers Care Auto Tire Recapper Name Role Phone Hank Oshea MD Primary Care Provider [phone] Reason for Visit * Reason Comments Patient Assistance Program Encounter Details Date Type Department Care Team Description 10/21/2021 Pharmacy Pharmacy, [place] [address] [place] [address] Coordinator, Pharmacy Reimbursement [address], [place] [id number] Ischemic cardiomyopathy* Allergies No known active allergiesdocumented as of this encounter (statuses as of 10/21/2021) Medications Medication Sig Dispensed Refills Start Date End Date Status VITAMIN D 2000 UNITS PO TABS one tablet daily 0 Activ e nitroglycerin (NITROSTAT) 0.4 MG SUBLIndications:Cor onary artery disease involving [place] coronary artery of [place] heart without angina pectoris,Myocardial infarction involving other [...] Oral Tablet (Lanoxin)Indication s:Coronary artery disease involving [place] coronary artery of [place] heart without angina pectoris,Chronic atrial fibrillation (HCC) [...] as of this encounter (statuses as of 10/21/2021) Active Problems Problem Noted Date AICD (automatic cardioverter/defibrillat or) present 02/10/2013 Heart failure, systolic, due to CAD 06/2013 Ischemic cardiomyopathy 01/06/2013 Atrial fibrillation 01/06/2013 CAD (coronary artery disease) 07/25/2012 [place] (myocardial infarction) 07/25/2012 documented as of this encounter (statuses as of 10/21/2021) Immunizations Name Administration Dates Next Due DTaP [...] encounter Progress Notes * KEITH Palomares - 10/21/2021 12:42 PM EST Follow up needs to be made to patient Coverage:mdcr a and b/[address] [address] Patient Phone Numbers RX:Entresto Patient needs to [...] forms to be scannedand ensure were faxed. KEITH Palomares Pharmaceutical Airport Refueling Handler 10/21/2021, 12:44 PM documented in this encounter Plan of Treatment Upcoming Encounters Date Type Specialty Care Team Description 10/29/2021 Pharmacy Tight Cooper, Pharmacy Reimbursement [address] [place] [address] 11/03/2021 Cardiac Studies Cardiology [place] [facility] [address] [facility] [place] [address] 11/17/2021 Anticoagulation Pharmacy Pharmacist1, [facility] [address] [facility] [place] [address] 12/02/2021 Office Visit Cardiology Wil[facility] Lay [facility]-C [address] [facility] [place] [address] 12/04/2021 Cardiac Studies Cardiology [place] [facility] [address] [place] [address] Health Maintenance Due Date Last Done Comments [...] Td Vaccines (2 - Tdap) 07/29/2027 07/29/2017 MENINGOCOCCAL (MENACTRA/MENVEO) Aged Out No longer eligible based on patient's age to complete this topic documented as of this encounter Implants Not on filedocumented as of this encounter Visit Diagnoses Diagnosis Ischemic cardiomyopathy- Primary Other specified forms of chronic ischemic heart disease documented in this encounter Advance Directives Documents on File Type Date Recorded Patient Gate Supervisor Expl anation Advanced Directive Advanced Directive Advanced [...] Advanced Directive 01/26/2013 11:57 AM Care Teams Auto Tire Recapper Relationship Specialty Start Date End Date Hank Oshea MD [address] [facility] [address] [place] [address] PCP - General Internal Medicine 08/13/14 documented as of this encounter
--- OUTSIDE RECORDS SUMMARY | 2023-09-08 00:44 | External Medical Summary | Summary of Care ---
Author Name Unknown Organization [place] [address] Care Team Providers Care Handbag Stitcher Name Role Phone Hank Oshea MD Primary Care Provider [phone] Reason for Visit * Reason Comments Patient Assistance Program Encounter Details Date Type Department Care Team Description 11/18/2021 Pharmacy Pharmacy, [place] [address] [place], [place] [phone] Coordinator, Pharmacy Reimbursement [address] [place], [place] [phone] Ischemic cardiomyopathy* Allergies No known active allergiesdocumented as of this encounter (statuses as of 11/25/2021) Medications Medication Sig Dispensed Refills Start Date End Date Status VITAMIN D 2000 UNITS PO TABS one tablet daily 0 Activ e nitroglycerin (NITROSTAT) 0.4 MG SUBLIndications:Cor onary artery disease involving [place] coronary artery of [place] heart without angina pectoris,Myocardial infarction involving other [...] Oral Tablet (Lanoxin)Indication s:Coronary artery disease involving [place] coronary artery of [place] heart without angina pectoris,Chronic atrial fibrillation (HCC) [...] to be made topatient Coverage:mdcr a and b/[address] [facility] [address] Patient Phone Numbers RX:Entresto Patient needs to [...] follow up in Dec. KEITH Palomares Pharmaceutical Facility Coordinator 11/18/2021, 11:56 AM documented in this encounter Plan of Treatment Upcoming Encounters Date Type Specialty Care Team Description 12/02/2021 Cardiac Studies Cardiology [facility] [address] [place] [address] 12/02/2021 Office Visit Cardiology Wilmar Lay PA-C [address] [place] [address] 12/18/2021 Anticoagulation Pharmacy Pharmacist1, [facility] [address] [facility], [place] [phone] Health Maintenance Due Date Last Done Comments [...] Documents on File Type Date Recorded Patient International Project Manager Expl anation Advanced Directive Advanced Directive [...] Advanced Directive 01/26/2013 11:57 AM Care Teams Handbag Stitcher Relationship Specialty Start Date End Date Hank Oshea MD [address] [place] [address] PCP - General Internal Medicine 08/13/14 documented as of this encounter
--- OUTSIDE RECORDS SUMMARY | 2023-09-08 00:44 | External Medical Summary | Summary of Care ---
Author Name Unknown Organization [place] [address] Care Team Providers Care Computer Lab Assistant Name Role Phone Hank Oshea MD Primary Care Provider [phone] Reason for Visit * Reason Comments Follow Up Encounter Details Date Type Department Care Team Description 10/20/2021 Office Visit Cardiology, [facility] [address] [place] [address] Wilmar Lay PA-C [address] [facility] [place] [address] Heart failure, systolic, due to CAD (HCC)*; Ischemic cardiomyopathy; Rib deformity; Chronic atrial fibrillation (HCC); AICD (automatic cardioverter/defibrill ator) present; Coronary artery disease involving [place] coronary artery of [place] heart without angina pectoris Allergies No known active allergiesdocumented as of this encounter (statuses as of 10/21/2021) Medications Medication Sig Dispensed Refills Start Date End Date Status VITAMIN D 2000 UNITS PO TABS one tablet daily 0 Activ e nitroglycerin (NITROSTAT) 0.4 MG SUBLIndications:Cor onary artery disease involving [place] coronary artery of [place] heart without angina pectoris,Myocardial infarction involving other [...] Oral Tablet (Lanoxin)Indication s:Coronary artery disease involving [place] coronary artery of [place] heart without angina pectoris,Chronic atrial fibrillation (HCC) [...] and pm 90 Tablet 3 10/06/2021 Active documented as of this encounter (statuses [...] Sign Reading Time Taken Comments Blood Pressure 106/58 10/20/2021 12:47 PM EST Pulse 84 10/20/2021 12:47 PM EST Temperature 35.4 C (95.7 F) 10/20/2021 1 2:47 PM EST Respiratory Rate 12 10/20/2021 12:4 7 PM EST Oxygen Saturation - - Inhaled Oxygen Concentration - - Weight 83.4 kg (183 lb 12.8 oz) 021 12:47 PM EST Height - - Body Mass Index 26.37 03/21/2018 12:57 PM EDT documented in this encounter Progress Notes * Wilmar Lay PA-C - 10/20/2021 1:00 PM EST History of Present Illness: Lucian Larson Jr. Is a 85 year old male here today for close cardiology follow-up. The patient was last seen in this office on October 06, 2021, presenting at that time with evidence of volume overload, acute decompensated systolic congestive heart failure. Laboratory work at that time was OK/stable and is available in the EMR for review (also faxed to the patient's PCP - FYI) Furosemide was increased to 40 mg/day. Chest x-ray showed mild age indeterminate deformities of a couple lower left ribs for which follow- up CT scan of the chest is being obtained to evaluate further. Patient returns today, accompanied by his , feeling okay. He notes that every day heseems to get better and better. Peripheral edema has improved but not resolved. Exertional dyspnea has been stable. No chest pain. No palpitations. No device alarms or discharges. No orthopnea. No PND. No positional dizziness. No syncope. No melena. No hematochezia. No constipation unless he eats cheese. Patient Active Problem List Diagnosis Code CAD (coronary artery disease) I25.10 [place] (myocardial infarction) ([facility]) I21.9 Heart failure, systolic, due to CAD ([facility]) I50.20, I25.10 Ischemic cardiomyopathy I25.5 Atrial fibrillation ([facility]) I48.91 AICD (automatic cardioverter/defibrillator) present Z95.810 [...] by mouth once daily 90 Tab 4 Metoprolol Succinate ER 50 [...] medications for this visit. OBJECTIVE/PHYSICAL EXAMINATION: BP 106/58 | Pulse 84 | Temp 35.4 C (95.7 F) (Tympanic) | Resp 12 | Wt 83.4 kg (183 lb 12.8 oz) | BMI 26.37 kg/m | BSA 2.03 m General: A&Ox3. NAD. HENT: Normocephalic. Atraumatic. Eyes: PER. Conjunctiva pink, sclera clear. Neck: No carotid bruits. + JVD. Heart: Distant heart sounds. Irregularly irregular 80 bpm. No murmur appreciated. No rub. No gallop. PMI is nondisplaced. Lungs: Right basilar rales. Decreased at the left base. Abdomen: +BS. Soft. Nontender. No masses or organomegaly. Extremities: 1+ left greater than right lower extremity edema. [...] enlargement and mild pulmonary hypertension now present. Device interrogation on 09/29/2021 demonstrated normal ICD function. Medtronic Model - Eric II [id number] (SN: [id number]). RV Lead: Medtronic, Model - 6935 (SN: [id number]). Implant Date: 02-02-2013. Battery voltage: 2.63 V. PANCHO 2.63 V. Backup pacemaker set VVI, 50 bpm. RV paced 0.1%. One episode of NS-VT on 09/23/2021 at 03:55, one second in duration. PVC singles: 489.8 per hour. ASSESSMENT: 1. Improved evidence of acute decompensated [...] and . Plan as outlined below. RECOMMENDATIONS/PLAN: Continue as prescribed for now. Basic metabolic panel today. If hypokalemia observed would consider the addition of low-dose spironolactone. Follow-up CT scan of the chest is lidya obtained later on this afternoon, RE: Abnormal CXR. Cardiology follow-up with the above, in 4-6 weeks, or as needed. ER with emergencies. Wilmar Lay PA-C Department of Cardiology documented in this encounter Nursing Notes * Sosa Cotter LPN - 10/20/2021 12:46 PM EST Pt here for close follow up HF. Denies any c/o. Currently Lasix dose is 40mg daily. documented in this encounter Plan of Treatment Upcoming Encounters Date Type Specialty Care Team Description 10/21/2021 Pharmacy Education Department Chair, Pharmacy Reimbursement [address] [place] [facility] [place] [facility] [place] [address] Ischemic cardiomyopathy* 10/29/2021 Pharmacy Education Department Chair, Pharmacy Reimbursement [address] [place] [address] 11/03/2021 Cardiac [facility]er [address] [place] [address] 11/17/2021 Anticoagulation Pharmacy Pharmacist1, [facility] [address] [facility] [address] 12/02/2021 Office Visit Cardiology Wilmar Lay PA-C [address] [place] [address] 12/04/2021 Cardiac Studies Cardiology [place], Pacer Clinic [facility] [address] [place] [address] Health Maintenance Due Date Last Done Comments [...] filedocumented as of this encounter Results * BASIC METABOLIC PANEL (10/20/2021 1:50 PM EST) BUN 24(H) 6 - 20 mg/dL [facility] Creatinine 1.3(H) 0.6 - 1.2 mg/dL [facility] Estimated Glomerular Filtration Rate 50(L)Comment:If patient is , multiply estimated GFR by 1.159. >=60 mL/min [facility]10 Sodium 142 135 - 146 mmol/L [facility] Potassium 4.9 3.5 - 5.1 mmol/L [facility]10 Chloride 104 98 - 107 mmol/L [facility] CO2 29 22 - 32 mmol/L [facility] Anion Gap 9 7 - 15 mmol/L [facility] Glucose 87 70 - 120 mg/dL [facility] Calcium 9.8 8.4 - 10.2 mg/dL [facility] Specimen Blood - Venous blood specime n (specimen) [facility] [address] [place] [address] documented in this encounter Visit Diagnoses Diagnosis Heart failure, systolic, due to CAD (HCC)- Primary Unspecified systolic heart failure Ischemic cardiomyopathy Other specified forms of chronic ischemic heart disease 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 Chronic atrial fibrillation (HCC) Atrial fibrillation AICD (automatic cardioverter/defibrillator) present Automatic implantable cardiac defibrillator in situ Coronary artery disease involving pal[place] coronary artery of pala heart without angina pectoris Ischemic cardiomyopathy- Primary Other specified forms of chronic ischemic heart disease documented in this encounter Advance Directives Documents on File Type Date Recorded Patient Screw Machine Adjuster Automatic Expl anation Advanced Directive Advanced Directive Advanced [...] Advanced Directive 01/26/2013 11:57 AM Care Teams Computer Lab Assistant Relationship Specialty Start Date End Date Hank Oshea MD [address] [place] [address] PCP - General Internal Medicine 08/13/14 documented as of this encounter"
--- OUTSIDE RECORDS SUMMARY | 2023-09-08 00:44 | External Medical Summary | Summary of Care ---
Author Name Unknown Organization [place] [address] Care Team Providers Care Medical Nurse Name Role Phone Hank Oshea MD Primary Care Provider [phone] Reason for Visit * Reason Onset Date Comments Test Results 10/21/2021 Encounter Details Date Type Department Care Team Description 10/21/2021 Telephone Cardiology, [facility] [address] [employer] [place] [address] Wilmar Lay PA-C [address] [employer] [facility] [place] [address] Test Results Allergies No known active allergiesdocumented as of this encounter (statuses as of 10/21/2021) Medications Medication Sig Dispensed Refills Start Date End Date Status VITAMIN D 2000 UNITS PO TABS one tablet daily 0 Activ e nitroglycerin (NITROSTAT) 0.4 MG SUBLIndications:Cor onary artery disease involving [place] coronary artery of [place] heart without angina pectoris,Myocardial infarction involving other [...] Oral Tablet (Lanoxin)Indication s:Coronary artery disease involving [place] coronary artery of [place] heart without angina pectoris,Chronic atrial fibrillation (HCC) [...] 02/10/2013 Heart failure, systolic, due to CAD /06/2013 Ischemic cardiomyopathy 01/06/2013 Atrial fibrillation 01/06/2013 CAD (coronary artery disease) 07/25/2012 [place] (myocardial infarction) 07/25/2012 documented as of this [...] encounter Miscellaneous Notes * Telephone Encounter - Anibal Raymundo RPh - 10/21/2021 2:16 PM EST Patient Phone Numbers Patient was started on Doxycycline 100mg BID today for 10 days. Spoke to patient's and instructed her to contact the clinic if patient develops any unusual bruising or bleeding. If not, continuecurrent dose of Coumadin and come to clinic as scheduled. Anibal Caceres RPh, LIZZIE, ANSONE Clinical Pharmacist Medication Therapy Management [facility] 10/21/2021, 2:18 PM * Telephone Encounter - Rebel Durant LPN - 10/21/2021 10:40 AM EST Called patient and informed of Wilmar's message. Patient verbalized understanding. Medication pended.Faxed to PCP. JOII to [facility] Pharmacist. ----- Message from Wilmar Lay PA-C sent at 10/21/2021 10:34 AM EST ----- CT scan confirms subacute left 6th and 7th ribs fracture deformities A small consolidation is seen in the anterior left upper lobe most consistent with early pneumonia. Additional findings include a couple of sub 4 mm pulmonary nodules, mild emphysema, scattered basilar scarring and postinflammatory/infectious changes, Bochdalek hernia, known ischemic cardiomyopathy. Recommend Doxycycline 100 mg twice a day x 10 days for the left upper lobe pneumonia. CC: [facility], PCP documented in this encounter Plan of Treatment Upcoming Encounters Date Type Specialty Care Team Description 10/21/2021 Pharmacy Ladies Locker Room Attendant, Pharmacy Reimbursement [address] [place] [address] Ischemic cardiomyopathy* 10/29/2021 Pharmacy Ladies Locker Room Attendant, Pharmacy Reimbursement [address] [place], [place] [id number] 11/03/2021 [facility] [address] 11/17/2021 Anticoagulation Pharmacy Pharmacist1, [facility] [address] [place] [address] 12/02/2021 Office Visit Cardiology Wilmar Lay [facility]C [facility] [address] 12/04/2021 Cardiac Studies Cardiology [facility] [address] [facility] [place] [address] Health Maintenance Due Date Last Done Comments [...] specified forms of chronic ischemic heart disease Community acquired pneumonia of left upper lobe of lung- Primary documented in this encounter Advance Directives Documents on File Type Date Recorded Patient Banking Manager Expl anation Advanced Directive Advanced Directive [...] Advanced Directive 01/26/2013 11:57 AM Care Teams Medical Nurse Relationship Specialty Start Date End Date Hank Oshea MD [address] [place] [address] PCP - General Internal Medicine 08/13/14 documented as of this encounter
--- OUTSIDE RECORDS SUMMARY | 2023-09-08 00:44 | External Medical Summary | Summary of Care ---
Author Name Unknown Organization [place] [address] Care Team Providers Care Channel Layer Name Role Phone Hank Oshea MD Primary Care Provider [phone] Reason for Visit * Reason Comments Patient Assistance Program Encounter Details Date Type Department Care Team Description 10/29/2021 Pharmacy Pharmacy, [place] [address] [place] [address] Coordinator, Pharmacy Reimbursement [address], [place] [id number] Ischemic cardiomyopathy* Allergies No known active allergiesdocumented as of this encounter (statuses as of 10/30/2021) Medications Medication Sig Dispensed Refills Start Date End Date Status VITAMIN D 2000 UNITS PO TABS one tablet daily 0 Activ e nitroglycerin (NITROSTAT) 0.4 MG SUBLIndications:Cor onary artery disease involving [place] coronary artery of [place] heart without angina pectoris,Myocardial infarction involving other [...] Oral Tablet (Lanoxin)Indication s:Coronary artery disease involving [place] coronary artery of [place] heart without angina pectoris,Chronic atrial fibrillation (HCC) [...] as of this encounter (statuses as of 10/30/2021) Active Problems Problem Noted Date AICD (automatic cardioverter/defibrillat or) present 02/10/2013 Heart failure, systolic, due to CAD 06/2013 Ischemic cardiomyopathy 01/06/2013 Atrial fibrillation 01/06/2013 CAD (coronary artery disease) 07/25/2012 MS (myocardial infarction) 07/25/2012 documented as of this encounter (statuses as of 10/30/2021) Immunizations Name Administration Dates Next Due DTaP [...] encounter Progress Notes * KEITH Palomares - 10/30/2021 12:42 PM EST Follow up needs to be made topatient Coverage:mdcr a and b/[address] [facility] [id number] Patient Phone Numbers RX:Entresto Patient needs to [...] who reached out to nurse in office, advsd forms were completed and faxed. He will send to me so I can follow up with [employer] on status. Added pt to my schedule for next week to call [employer] and check status. KEITH Palomares Pharmaceutical English Lecturer 10/30/2021, 1:10 PM documented in this encounter Plan of Treatment Upcoming Encounters Date Type Specialty Care Team Description 11/03/2021 Cardiac Studies Cardiology [facility] [place] [address] 11/06/2021 Pharmacy Food Service Representative, Pharmacy Reimbursement [address] [facility] [place] [phone] 11/17/2021 Anticoagulation Pharmacy Pharmacist1, [address], [place] [phone] 12/02/2021 Office Visit Cardiology [facility] Lay [facility]C [facility] [address] 12/04/2021 Cardiac Studies Cardiology Gigi Balsam [place] [facility] 132 [facility] [place] [address] Health Maintenance Due Date Last Done Comments [...] Documents on File Type Date Recorded Patient Electrical Systems Drafter Expl anation Advanced Directive Advanced Directive Advanced [...] Advanced Directive 01/26/2013 11:57 AM Care Teams Channel Layer Relationship Specialty Start Date End Date Hank Oshea MD [address] [address] PCP - General Internal Medicine 08/13/14 documented as of this encounter
--- OUTSIDE RECORDS SUMMARY | 2023-09-08 00:44 | External Medical Summary | Summary of Care ---
Author Name Unknown Organization [place] [address] Care Team Providers Care Oil Changer Name Role Phone Hank Oshea MD Primary Care Provider [phone] Reason for Visit * Reason Comments Dosage Adjustment In Person (Anticoag Cl inic) Encounter Details Date Type Department Care Team Description 11/20/2021 Anticoagulation Pharmacy, [facility] 200 [facility] [place] [address] Pharmacist1, [facility] 200 [facility] [place] [address] Atrial fibrillation, unspecified type (HCC)*; Myocardial infarction, unspecified OR type, unspecified artery (HCC); Anticoagulation management encounter; alf 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 therapy Allergies No [...] Progress Notes * Luiza Masters RPh - 11/20/2021 11:39 AM EST Images from the original note were not included. Medication Therapy Disease Management - Anticoagulation Patient: Lucian Larson Jr. : 1935 Current Warfarin Dose As of 11/20/2021 Warfarin maintenance plan: 5 mg (5 mg x 1) every day Patient-Reported Symptoms: Patient Findings Negatives: Signs/symptoms of thrombosis, Signs/symptoms of bleeding, Change in health, Change in alcohol use, Change in activity, Upcoming invasive procedure, Missed doses, Extra doses, Change in medications, Change in diet/appetite, Bruising INR Result As of 11/20/2021 INR goal: 2.0-3.0 INR used for dosin.7 (11/20/2021) Warfarin Plan As of 11/20/2021 Full warfarin instructions: 11/20: Hold; Otherwise 5 mg every day Next INR check: 12/18/2021 Additional Dosing Information: Repeat PT/INR in 4 week(s) Weekly dose: not changed Luiza Paz RP Clinical Pharmacist 11/20/2021, 11:39 AM documented in this encounter Plan of Treatment Upcoming Encounters Date Type Specialty Care Team Description 12/02/2021 Cardiac Studies Cardiology [facility] [place] [facility] [address] [place] [address] 12/02/2021 Office Visit Cardiology Wilmar Lay PA-C [address] [place] [address] 12/18/2021 Anticoagulation Pharmacy Pharmacist1, [facility] 200 [facility] [phone] Health Maintenance Due Date Last Done Comments [...] Comments INR FINGERSTICK, POINT OF CARE STAT 11/20/2021 11:42 AM EST Atrial fibrillation, unspecified type (HCC) Myocardial infarction, unspecified OR type, unspecified artery (HCC) Anticoagulation management encounter alf 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 therapy documented in this encounter Results * INR FINGERSTICK, POINT OF CARE (11/20/2021 11:42 AM EST) Fingerstick INR 3.7 INR [facility] 56-02 Specimen Blood Narrative LAB[facility] [place] 56- - 11/20/2021 11:51 AM EST Therapeutic ranges for non-operative patients: Prophylaxsis/treatment of DVT: (Range:2.0-3.0) Treatment of pulmonary embolism:(Range:2.0-3.0) Prevention of systemic embolism from: -tissue heart valves -acute myocardial infarction -valvular heart disease -atrial fibrillation (Range: 2.0-3.0) Mechanical prosthetic valves: (Range: 2.5-3.5) [facility] [place] [address] [place] [address] documented in this encounter Visit Diagnoses Diagnosis Atrial fibrillation, unspecified type (HCC)- Primary Myocardial infarction, unspecified OR type, unspecified artery (HCC) Anticoagulation management encounter Encounter for therapeutic drug monitoring termite helper 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 therapy documented in this encounter Advance Directives Documents on File Type Date Recorded Patient Machine Marker Expl anation Advanced Directive Advanced Directive Advanced [...] Advanced Directive 01/26/2013 11:57 AM Care Teams Oil Changer Relationship Specialty Start Date End Date Hank Oshea MD [address] [place] [address] PCP - General Internal Medicine 08/13/14 documented as of this encounter
--- OUTSIDE RECORDS SUMMARY | 2023-09-08 00:45 | External Medical Summary ---
Author Name Unknown Address Unknown Organization K0G:LAB[facility]ATORY [facility] [address] - [address] [place] [address] Laboratory Report Ordering Provider Test Date Status ROXANA MAYA 10/06/2021 14:17:45 Final Observation Date Value Abnormality Reference (Units ) Status PT 10/06/2021 14:17:45 26.6 Above high normal 11 .5-14.6 (seconds) Final INR 10/06/2021 14:17:45 2.45 Above high normal 0. 84-1.14 Final Performing Location [facility] 57-[address] 0 - [address] [place] [address]
--- OUTSIDE RECORDS SUMMARY | 2023-09-08 00:45 | External Medical Summary | Summary of Care ---
Author Name Unknown Organization [place] [address] Care Team Providers Care Ore Grader Name Role Phone Hank Oshea MD Primary Care Provider [phone] Reason for Visit * Reason Comments Outpatient Testing Encounter Details Date Type Department Care Team Description 10/20/2021 Laboratory Laboratory, [facility] [place] [address] [facility] 132 [facility] [address] Heart failure, systolic, due to CAD (HCC) Allergies No known active allergiesdocumented as of this encounter (statuses as of 10/20/2021) Medications Medication Sig Dispensed Refills Start Date End Date Status VITAMIN D 2000 UNITS PO TABS one tablet daily 0 Activ e nitroglycerin (NITROSTAT) 0.4 MG SUBLIndications:Cor onary artery disease involving [place] coronary artery of [place] heart without angina pectoris,Myocardial infarction involving other [...] Oral Tablet (Lanoxin)Indication s:Coronary artery disease involving [place] coronary artery of [place] heart without angina pectoris,Chronic atrial fibrillation (HCC) [...] as of this encounter (statuses as of 10/20/2021) Active Problems Problem Noted Date AICD (automatic cardioverter/defibrillat or) present 02/10/2013 Heart failure, systolic, due to CAD 06/2013 Ischemic cardiomyopathy 01/06/2013 Atrial fibrillation 01/06/2013 CAD (coronary artery disease) 07/25/2012 [place] (myocardial infarction) 07/25/2012 documented as of this encounter (statuses as of 10/20/2021) Immunizations Name Administration Dates Next Due DTaP [...] Encounters Date Type Specialty Care Team Description 10/20/2021 Imaging Radiology Rib deformity; Abnormal chest x-ray 10/21/2021 Pharmacy Metal Alloy Scientist, Pharmacy Reimbursement [address] [place], [place] [phone] 11/03/2021 Cardiac Studies Cardiology [facility] 132 [facility] [place] [address] 11/17/2021 Anticoagulation Pharmacy Pharmacist1, [facility] [address] [place] [address] 12/02/2021 Office Visit Cardiology Wilmar Lay PA-C 132 [facility] [place] [address] 12/04/2021 Cardiac Studies Cardiology [facility] 132 [facility] [place] [address] Pending Results Name Type Priority Associated Diagnoses Date /Time BASIC METABOLIC PANEL Lab Routine Heart failure, systolic, due to CAD (HCC) 10/20/2021 1:50 PM EST Health Maintenance Due Date Last Done Comments COVID-19 Vaccine (1) 1940 Pneumococcal Vaccine: 65+ Years (1 of 2 - PPSV23) 1941 Zoster Vaccines (1 of 2) 1984 *DEPRESSION SCREENING,ANNUAL FOR PTS 12 AND OVER 12/02/2014 Influenza Vaccine (FLU shot) (#1) 2021 07/29/2017, 08/08/2012 DIABETES SCREEN EVERY 3 YRS-AGE 45 AND ABOVE 10/06/2024 10/06/2021, 02/07/2021, 07/23/2020, Additional history exists DTaP,Tdap,and Td Vaccines (2 - Tdap) 07/29/2027 07/29/2017 MENINGOCOCCAL (MENACTRA/MENVEO) Aged Out No longer eligible based on patient's age to complete this topic documented as of this encounter Implants Not on filedocumented as of this encounter Visit Diagnoses Diagnosis 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
--- OUTSIDE RECORDS SUMMARY | 2023-09-08 00:45 | External Medical Summary ---
Author Name Unknown Address Unknown Organization K0G:[facility] [place] [address] - [address] [place] [address] Laboratory Report Ordering Provider Test Date Status ROXANA MAYA 10/20/2021 13:50:31 Final Observation Date Value Abnormality Reference (Units ) Status BUN 10/20/2021 13:50:31 24 Above high normal 6-20 (mg/dL) Final Creatinine 10/20/2021 13:50:31 1.3 Above high normal 0.6-1.2 (mg/dL) Final Glomerular filtration rate/1.73 sq M.predicted [Volume Rate/Area] in Serum, Plasma or Blood by Creatinine-based formula (CKD-EPI) 10/20/2021 13:50:31 50 Below low normal >=60 (mL/min) Final If patient is Americ an, multiply estimated GFR by 1.159. Sodium 10/20/2021 13:50:31 142 135-146 (m mol/L) Final Potassium 10/20/2021 13:50:31 4.9 3.5-5.1 (m mol/L) Final Cl 10/20/2021 13:50:31 104 98-107 (mm ol/L) Final CO2 10/20/2021 13:50:31 29 22-32 (mmo l/L) Final Anion gap 10/20/2021 13:50:31 9 7-15 (mmol /L) Final Glucose 10/20/2021 13:50:31 87 70-120 (mg /dL) Final Calcium 10/20/2021 13:50:31 9.8 8.4-10.2 ( mg/dL) Final Performing Location [facility] 0 - [address] [place] [address]
--- OUTSIDE RECORDS SUMMARY | 2023-09-08 00:45 | External Medical Summary ---
Author Name Unknown Address Unknown Organization K01:LABORATORY C - [address] [place] [address] Laboratory Report Ordering Provider Test Date Status ROXANA MAYA 10/06/2021 14:17:45 Final Observation Date Value Abnormality Reference (Units ) Status BNP, Pro-hormone 10/06/2021 14:17:45 2939 Above high no rmal <300 (pg/mL) Final Performing Location [facility] - [address] [place] [address]
--- OUTSIDE RECORDS SUMMARY | 2023-09-08 00:45 | External Medical Summary ---
Author Name Unknown Address Unknown Organization K01:LABORATORY [facility] - [address] [place] [address] Laboratory Report Ordering Provider Test Date Status ROXANA MAYA 10/06/2021 14:17:45 Final Observation Date Value Abnormality Reference (Units ) Status Digoxin 10/06/2021 14:17:45 <0.4 Below low normal 0.5 -2.0 (ng/mL) Final Performing Location LABORATORY C - [address] [place] [address]
--- OUTSIDE RECORDS SUMMARY | 2023-09-08 00:45 | External Medical Summary ---
Author Name Unknown Address Unknown Organization K01:LABORATORY [facility] [place] [place] - [address] [place] [address] Laboratory Report Ordering Provider Test Date Status ROXANA MAYA 10/06/2021 14:17:45 Final Observation Date Value Abnormality Reference (Units ) Status TSH 10/06/2021 14:17:45 3.11 0.27-4.20 (uIU/mL) Final Performing Location [facility] - [address] [place] [address]
--- OUTSIDE RECORDS SUMMARY | 2023-09-08 00:45 | External Medical Summary ---
Author Name Unknown Address Unknown Organization K01:[facility] - [address] [place] [address] Laboratory Report Ordering Provider Test Date Status ROXANA MAYA 10/06/2021 14:17:45 Final Observation Date Value Abnormality Reference (Units ) Status Magnesium 10/06/2021 14:17:45 2.6 1.5-2.6 (m g/dL) Final Performing Location [facility] - [address] [place] [address]
--- OUTSIDE RECORDS SUMMARY | 2023-09-08 00:45 | External Medical Summary | Summary of Care ---
Author Name Unknown Organization [place] [address] Care Team Providers Care Cherry Picker Operator Name Role Phone Hank Oshea MD Primary Care Provider [phone] Reason for Visit * Reason Comments Defibrillator Clinic Encounter Details Date Type Department Care Team Description 09/29/2021 Cardiac Studies Cardiology, [facility] 132 [facility] [place] [address] [place], Pac[facility] 132 [facility] [place] [address] Ischemic cardiomyopathy*; Chronic atrial fibrillation (HCC); AICD (automatic cardioverter/defibril lator) present Allergies No known active allergiesdocumented as of this encounter (statuses as of 09/29/2021) Medications Medication Sig Dispensed Refills Start Date End Date Status VITAMIN D 2000 UNITS PO TABS one tablet daily 0 Active nitroglycerin (NITROSTAT) 0.4 MG SUBLIndications:Coronar y artery disease involving [place] coronary artery of [place] heart without angina pectoris,Myocardial infarction involving other [...] Active Clopidogrel Bisulfate 75 MG Oral Tablet (pLAVix)Indications:Per manent atrial fibrillation (HCC) Take 1 Tab by mouth daily. 90 Tab 3 12/16/2020 Active Furosemide 20 MG Oral Tablet (Lasix)Indications:Hear t failure, systolic, due to CAD (HCC) Take 1 tablet by mouth once daily 90 Tab 4 03/24/2021 Active Metoprolol Succinate ER 50 MG Oral Tablet Extended Release 24 Hour (toPROL XL)Indications:Atrial fibrillation, unspecified type (HCC) Take 1 tablet by mouth twice daily 182 Tab 3 03/21/2021 Active Rosuvastatin Calcium 5 MG Oral Tablet (Crestor)Indications:He art failure, systolic, due to CAD (HCC),Ischemic cardiomyopathy,AICD (automatic cardioverter/defibrilla tor) present,CAD (coronary artery disease) TAKE 1 TABLET BY MOUTH EVERY OTHER DAY 45 Tab 4 03/24/2021 Active Entresto 24-26 MG Oral Tablet (sacubitril-valsartan 24-26 mg per tab)Indications:Heart failure, systolic, due to CAD (HCC),Ischemic cardiomyopathy Take 1/2 tab each am and pm 90 Tab 3 04/04/2021 Active Warfarin Sodium 5 MG Oral Tablet (Coumadin)Indications:A trial fibrillation (HCC) TAKE TWO TABS (10MG) BY MOUTH ON WEDNESDAY AND ONE TAB (5MG) ALL OTHER DAYS 40 Tab 11 05/12/2021 Active Digoxin 125 MCG Oral Tablet (Lanoxin)Indications:Co ronary artery disease involving camp[place] coronary artery of campo heart without angina pectoris,Chronic atrial fibrillation (HCC) TAKE 1 TABLET BY MOUTH ON WEDNESDAY, WEDNESDAY AND WEDNESDAY. 28 Tab 11 05/12/2021 Active documented as of this encounter (statuses as of 09/29/2021) Active Problems Problem Noted Date AICD (automatic cardioverter/defibrillat or) present 02/10/2013 Heart failure, systolic, due to CAD 06/2013 Ischemic cardiomyopathy 01/06/2013 Atrial fibrillation 01/06/2013 CAD (coronary artery disease) 07/25/2012 OR (myocardial infarction) 07/25/2012 documented as of this encounter (statuses as of 09/29/2021) Immunizations Name Administration Dates Next Due DTaP [...] encounter Progress Notes * GHULAM Pino - 09/29/2021 8:57 AM EST REMOTE MONITORING TRANSMISSION - DEFIBRILLATOR -- 09/29/2021 TYPE OF VISIT: This is a scheduled remote monitoring transmission. INDICATION: I25.5 Ischemic cardiomyopathy (primary encounter diagnosis) I48.20 Chronic atrial fibrillation (HCC) Z95.810 AICD (automatic cardioverter/defibrillator) present IMPLANTING PHYSICIAN:Dre Gonzalez M.D. IMPLANT/DEVICE HISTORY:02/02/2013 CURRENT SYSTEM: ICD:MedtronicModel:[id number] SN:[id number] RV lead:MedtronicModel:[id number] SN:[id number] Abandoned leads:None ALERTS/ADVISORIES:None PATIENT EVALUATION: Presenting rhythm :Atrial fibrillation. DEVICE EVALUATION: R V Auto threshold: Not measured Sensin.5mV Pacing impedance:475ohms Percentage paced: 0.1% HVLI:52ohms Battery:2.63volts PANCHO:2.63volts Charge time:11.9seconds Short V-V intervals:0 PVC singles counter :489.8per hour over a 26day period. (this is an increase) Thoracic impedance monitoring:N/A VT/VF episodes (since last evaluation):1 VT nonsustained episodes of which the longest is 1 seconds with a ventricular rate of 214 bpm Past VT/VF episodes: First shock:02/02/2013with implant procedure. Most recent shock:same Total ICD shocks/ATP therapy: Appropriate shocks:1 Inappropriate shocks:0 ATP therapy:0 FINAL ICD PARAMETERS: Pacemaker mode/rate:[id number] RV Amplitude:1.5volts Pulse width:0.5msec VT detection:OFF FVT detection:ON Rate - 188- 231bpm(Burst (1), 25joules, 35 joules x 4 ) VF detection:ON Rate - 188bpm ( ATP during charging,25 joules,35 joules x5) Mode switch:Not available IMPRESSION: Normal defibrillator function. Battery is nearing KITCHEN SUPERVISOR PLAN: The next remote monitoring transmission is scheduled for 1 month to monitor device longevity. Nurse: Addi Vaughn [facility] BAND LOG MILL AND CARRIAGE OPERATOR: Dr. Langston This patient was interrogated remotely [...] Encounters Date Type Specialty Care Team Description 10/06/2021 Office Visit Cardiology [facility] Lay [facility]C [facility] [address] 10/10/2021 Anticoagulation Pharmacy Pharmacist1, [facility] [address] 11/03/2021 Cardiac Studies Cardiology [place], Pacer [facility] 132 [facility] [place] [address] 12/04/2021 Cardiac Studies Cardiology [place], Pac[facility] 132 [facility] [place] [address] Scheduled Orders Name Type Priority Associated Diagnoses Orde r Schedule DEFIBRILLATOR REMOTE INTERROGATION EVAL/INTERP,TO 90D Procedures Routine Ischemic cardiomyopathy Chronic atrial fibrillation (HCC) AICD (automatic cardioverter/defibrilla tor) present Ordered: 09/29/2021 PACER/ICD REMOTE DATA CAPTURE/TECH REVIEW,90D Procedures Routine Ischemic cardiomyopathy Chronic atrial fibrillation (HCC) AICD (automatic cardioverter/defibrilla tor) present Ordered: 09/29/2021 Health Maintenance Due Date Last Done Comments Pneumococcal Vaccine: 65+ Years (1 of 2 - PPSV23) 1941 COVID-19 Vaccine (1) 1947 Zoster Vaccines (1 of 2) 1984 *DEPRESSION SCREENING,ANNUAL FOR PTS 12 AND OVER 12/02/2014 Influenza Vaccine (FLU shot) (#1) 2021 07/29/2017, 08/08/2012 DIABETES SCREEN EVERY 3 YRS-AGE 45 AND ABOVE 02/08/2024 02/07/2021, 07/23/2020, 04/15/2020, Additional history exists DTaP,Tdap,and Td Vaccines (2 [...] Documents on File Type Date Recorded Patient Billiard Parlor Manager Expl anation Advanced Directive Advanced Directive [...] Advanced Directive 01/26/2013 11:57 AM Care Teams Cherry Picker Operator Relationship Specialty Start Date End Date Hank Oshea MD [address] [address] PCP - General Internal Medicine 08/13/14 documented as of this encounter
--- OUTSIDE RECORDS SUMMARY | 2023-09-08 00:45 | External Medical Summary | Summary of Care ---
Author Name Unknown Organization [place] [address] Care Team Providers Care Impact Hammer Operator Name Role Phone Hank Oshea MD Primary Care Provider [phone] Reason for Referral * Precert (Within 10 days (routine)) - Authorized Specialty Diagnoses / Procedures Referred By Sandy maki Referred To Contact Radiology Diagnoses Rib deformity Abnormal chest x-ray Procedures CT CHEST WO CONTRAST Wilmar Lay PA-C [address] [facility] [place] [place] [address] Referral ID Status Reason Start Date Expiration Date V isits Requested Visits Authorized [id number] Authorized 10/10/2021 1 1 Reason for Visit * Reason Onset Date Comments Test Results 10/08/2021 Encounter Details Date Type Department Care Team Description 10/08/2021 Telephone Cardiology, [facility] [address] [place] [address] Wilmar Lay PA-C [address] [facility] [place] [place] [address] Test Results Allergies No known active allergiesdocumented as of this encounter (statuses as of 10/09/2021) Medications Medication Sig Dispensed Refills Start Date End Date Status VITAMIN D 2000 UNITS PO TABS one tablet daily 0 Activ e nitroglycerin (NITROSTAT) 0.4 MG SUBLIndications:Cor onary artery disease involving dry creek coronary artery of dry creek heart without angina pectoris,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 25 Tab 11 07/21/2016 Active Additional Information Patient not taking. Reported on 10/06/2021 Coenzyme Q10 (COQ10) 200 MG CAPS Take [...] Oral Tablet (Lanoxin)Indication s:Coronary artery disease involving dry creek coronary artery of dry creek heart without angina pectoris,Chronic atrial fibrillation [...] as of this encounter (statuses as of 10/09/2021) Active Problems Problem Noted Date AICD (automatic cardioverter/defibrillat or) present 02/10/2013 Heart failure, systolic, due to CAD 06/2013 Ischemic cardiomyopathy 01/06/2013 Atrial fibrillation 01/06/2013 CAD (coronary artery disease) 07/25/2012 NJ (myocardial infarction) 07/25/2012 documented as of this encounter (statuses as of 10/09/2021) Immunizations Name Administration Dates Next Due DTaP [...] * Telephone Encounter - KEITH Brown - 10/09/2021 3:12 PM EST Spoke with pt's . Pt is scheduled 10/20/[address] * Telephone Encounter - Yina Elizondo RN - 10/09/2021 11:00 AM EST Called, spoke with patient/spouse. Both verbalizing understanding of results/recommendations. Agreeable to proceed with Chest CT. Order pended. Will contact [facility] CT department to push images from 2018 over. MELVIN Corado [facility] Radiology. Scheduling, please assist in arranging. Patient/spouse prefer to schedule CT for 10/20/21 to match around time of follow up with Wilmar if possible to lessen travel. * Telephone Encounter - Yina Elizondo RN - 10/09/2021 10:56 AM EST Images from the original note were not included. MARCE Dickinson Pool/Class Age indeterminate deformities of the posterolateral left 9th and 10th ribs. A CT scan of the chest would be needed to evaluate further. Note: Patient has previously undergone a CT scan of the chest at [facility] on July 11, 2018. Itwould be best if these images were made available so that the radiologist can compare, if patient elects to proceed. * Telephone Encounter - KEITH Schmitt - 10/08/2021 3:47 PM EST Who is Requesting Test Results: Patient's Primary Care Provider : Dr. Hank Oshea Tests Results Requested : XR ribs/chest Date of Test : 10/06/21 Location of Test: [facility] Ordering Provider: Wilmar Lay PA-C Callback Number: [phone] Patient has been made aware that the turnaround time for test results are typically as follows: Laboratory results = within 2 days Urine Cultures = within 2-3 days depending on growth within the culture Pathology results (biopsy results/PAP) = 1-2 weeks Radiology results = within 1 week Cologuard results = within 2 weeks from the shipment date COVID testing = results are on average 7 days documented in this encounter Plan of Treatment Upcoming Encounters Date Type Specialty Care Team Description 10/20/2021 Office Visit Cardiology Wilmar Lay PA-C [address] [place] [address] [place] [address] 10/20/2021 Imaging Radiology 10/21/2021 Pharmacy Training Designer, Pharmacy Reimbursement [address] [place] [address] 11/03/2021 Cardiac Studies Cardiology [facility] [address] [place] [address] 11/17/2021 Anticoagulation Pharmacy Pharmacist1, [facility] [address] [place] [address] 12/04/2021 Cardiac Studies Cardiology [facility] [address] [place] [address] Scheduled Orders Name Type Priority Associated Diagnoses Orde r Schedule CT CHEST WO CONTRAST Medical Imaging Routine Rib deformity Abnormal chest x-ray Expected: 10/10/2021 (Approximate), Expires: 11/09/2022 Health Maintenance Due Date Last Done Comments [...] of this encounter Visit Diagnoses Diagnosis 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
--- OUTSIDE RECORDS SUMMARY | 2023-09-08 00:45 | External Medical Summary | Summary of Care ---
Author Name Unknown Organization [place] [address] Care Team Providers Care Radio Communication Coordinator Name Role Phone Hank Oshea MD Primary Care Provider [phone] Reason for Visit * Reason Onset Date Comments Test Results 10/21/2021 Encounter Details Date Type Department Care Team Description 10/21/2021 Telephone Cardiology, [facility] [address] [employer] [place] [address] Wilmar Lay PA-C [address] [employer] [facility] [place] [address] Test Results Allergies No known active allergiesdocumented [...] Patient verbalized understanding. Medication pended.Faxed to PCP. FYI to [facility]ag Clinic Pharmacist. ----- Message from [...] Type Specialty Care Team Description 10/21/2021 Pharmacy Shipping Services Sales Representative, Pharmacy Reimbursement [address] [facility] [place] [address] 11/03/2021 Cardiac Studies Cardiology [facility] [address] [facility] [place] [address] 11/17/2021 Anticoagulation Pharmacy Pharmacist1, [facility] [address] [place] [address] 12/02/2021 Office Visit Cardiology Wilmar Lay PA-C [address] [facility] [place] [address] 12/04/2021 Cardiac Studies Cardiology [facility] [address] [facility] [place] [address] Health Maintenance Due Date Last Done Comments [...] as of this encounter Visit Diagnoses Diagnosis Community acquired pneumonia of left upper lobe of lung- Primary documented in this encounter Advance Directives Documents on File Type Date Recorded Patient Communications Planner Expl anation Advanced Directive Advanced Directive Advanced [...] Advanced Directive 01/26/2013 11:57 AM Care Teams Radio Communication Coordinator Relationship Specialty Start Date End Date Hank Oshea MD [address] [address] PCP - General Internal Medicine 08/13/14 documented as of this encounter
--- OUTSIDE RECORDS SUMMARY | 2023-09-08 00:45 | External Medical Summary | Summary of Care ---
Author Name Unknown Organization [place] [address] Care Team Providers Care Deaf And Hard Of Hearing Teacher Name Role Phone Hank Oshea MD Primary Care Provider [phone] Reason for Visit * Reason Comments Follow Up Encounter Details Date Type Department Care Team Description 10/06/2021 Office Visit Cardiology, [facility] [address] [place] [address] Wilmar Lay PA-C [address] [facility] [place] [address] Ischemic cardiomyopathy*; Chronic atrial fibrillation (HCC); AICD (automatic cardioverter/defibrill ator) present; Coronary artery disease involving [place] coronary artery of [place] heart without angina pectoris; ICD (implantable cardioverter-defibrill ator) battery depletion; Heart failure, systolic, due to CAD (HCC); ICD (implantable cardioverter-defibrill ator), single, in situ; Cough; Fall from ground level; Encounter for monitoring diuretic therapy; Permanent atrial fibrillation (HCC) Allergies No known active allergiesdocumented as of this encounter (statuses as of 10/07/2021) Medications Medication Sig Dispensed Refills Start Date End Date Status VITAMIN D 2000 UNITS PO TABS one tablet daily 0 Activ e nitroglycerin (NITROSTAT) 0.4 MG SUBLIndications:Cor onary artery disease involving [place] coronary artery of [place] heart without angina pectoris,Myocardial infarction involving other [...] Oral Tablet (Lanoxin)Indication s:Coronary artery disease involving [place] coronary artery of sen[place] heart without angina pectoris,Chronic atrial fibrillation (HCC) [...] and pm 90 Tablet 3 10/06/2021 Active Clopidogrel Bisulfate 75 MG Oral Tablet (pLAVix)Indications :Permanent atrial fibrillation (HCC) Take 1 Tab by mouth daily. 90 Tab 3 12/16/2020 Discontinu ed(Refill) Entresto 24-26 MG Oral Tablet (sacubitril-valsart an 24-26 mg per tab)Indications:Hea rt failure, systolic, due to CAD (HCC),Ischemic cardiomyopathy Take 1/2 tab each am and pm 90 Tab 3 04/04/2021 Discontinu ed(Refill) documented as of this encounter (statuses as of 10/07/2021) Active Problems Problem Noted Date AICD (automatic cardioverter/defibrillat or) present 02/10/2013 Heart failure, systolic, due to CAD 06/2013 Ischemic cardiomyopathy 01/06/2013 Atrial fibrillation 01/06/2013 CAD (coronary artery disease) 07/25/2012 NJ (myocardial infarction) 07/25/2012 documented as of this encounter (statuses as of 10/07/2021) Immunizations Name Administration Dates Next Due DTaP [...] Sign Reading Time Taken Comments Blood Pressure 120/72 10/06/2021 1:10 PM EST Pulse - - Temperature 36.2 C (97.1 F) 10/06/2021 1:10 PM ES T Respiratory Rate 18 10/06/2021 1:10 PM EST Oxygen Saturation - - Inhaled Oxygen Concentration - - Weight 83 kg (183 lb) 10/06/2021 1:10 PM EST Height - - Body Mass Index 26.26 03/21/2018 12:57 PM EDT documented in this encounter Progress Notes * Wilmar Lay PA-C - 10/06/2021 1:33 PM EST History of Present Illness: Lucian Larson Jr. Is a 85 year old male here today for routine cardiology follow-up evaluation. Ambulation is via a rolling walker. Fell a few weeks ago, on a rainy day like this, over at friends, mechanical in etiology, falling on the driveway on to his left side. He did not hit his head. Concerned about his left anterior ribs. INR scheduled for Wednesday. of Osiel ye ars concerned about volume overload, noting that he typically furosemide at least 1 day per week when leaving the house. + Cough. + Exertional dyspnea. No chest pain. No palpitations. No device alarms or discharges. No orthopnea. No PND. No dizziness. No syncope. No melena or hematochezia. Patient Active Problem List Diagnosis Code CAD (coronary artery disease) I25.10 NJ (myocardial infarction) ([facility]) I21.9 Heart failure, systolic, due to CAD ([facility]) I50.20, I25.10 Ischemic cardiomyopathy I25.5 Atrial fibrillation ([facility]) I48.91 AICD (automatic cardioverter/defibrillator) present Z95.810 Review of patient's allergies indicates: No Known Allergies Current Outpatient Medications Medication Sig Dispense Refill Coenzyme Q10 (COQ10) 200 MG CAPS Take [...] each am and pm 90 Tablet 3 VITAMIN D 2000 UNITS PO TABS one tablet daily nitroglycerin (NITROSTAT) 0.[address] 1 Tab under the tongue as needed for Pain, Chest. (Patient not taking: Reported on 10/06/2021) 25 Tab 11 No current facility-administered medications for this visit. OBJECTIVE/PHYSICAL EXAMINATION: BP 120/72 (BP Site: Left Arm, BP Position: Sitting, BP Cuff Size: Regular) | Temp 36.2 C (97.1 F) (Infrared ) | Resp 18 | Wt 83 kg (183 lb) | BMI 26.26 kg/m | BSA 2.02 m General: A&Ox3. NAD. HENT: Normocephalic. Atraumatic. [...] ICD function. Medtronic Model - Eric II [id number] (SN: [id number]). RV Lead: Medtronic, Model - 6935 (SN: [id number]). Implant Date: 02-02-2013. Battery voltage: 2.63 V. PANCHO 2.63 V. Backup pacemaker set VVI, 50 bpm. RV paced 0.1%. One episode of NS-VT on 09/23/2021 at 03:55, one second in duration. PVC singles: 489.8 per hour. ASSESSMENT: 1. Volume overload, acute decompensated systolic congestive heart failure 2. [...] . Plan as outlined below. RECOMMENDATIONS/PLAN: 1. Chest x-rays today 2. Nonfasting laboratory work today 3. Increase furosemide to 40 mg/day at least until follow-up. 4. If hypokalemia observed would consider the addition of low-dose spironolactone next. 5. Future device exchange discussed. 6. General measures discussed regarding ambulatory dysfunction. Instructions written. Benefits, use, and risks of the above explained to patient and . Medication list updated. Clopidogrel refilled as requested. Entresto to be sent to the pharmacy assistance program through [employer]. Cardiology follow-up with the above, in 2 weeks, or as needed. ER with emergencies. Wilmar Lay PA-C Department of Cardiology documented in this encounter Nursing Notes * Rafiq Miramontes RN - 10/06/2021 1:08 PM EST Examination Room: room 3 Name: Lucian Larson Jr. Date of : (1935). Reason for Visit: for follow up Interim Hospitalization(s): denies Problems/Concerns: fewll A few weeks asgo did not seek medical care. Bruising of hsi left leg foot and toes. Has a lump on his left bottom rib cage. Chest Pain/SOB: denies [facility] Discussed: Not applicable [facility] is a way you can talk to your provider online through e-mail. Would you like to sign up? I can activate it for you? NO INTERNET ACCESS Patient was instructed to not get up [...] Encounters Date Type Specialty Care Team Description 10/07/2021 Pharmacy Sheep Sorter, Pharmacy Reimbursement [address] [place] [address] 10/07/2021 Anticoagulation Pharmacy Pharmacist1, [facility] [address] [facility] [address] Myocardial infarction, unspecified NJ type, unspecified artery (HCC)*; Atrial fibrillation, unspecified type (HCC) 10/20/2021 Office Visit Cardiology Wilmar Lay PA-C [address] [facility] [place] [address] 11/03/2021 Cardiac Studies Cardiology [facility] [place] [address] 11/17/2021 Anticoagulation Pharmacy Pharmacist1, [facility] [address] [facility] [address] 12/04/2021 Cardiac Studies Cardiology [facility] [address] [facility] [place] [address] Pending Results Name Type Priority Associated Diagnoses Date /Time XR RIBS UNILATERAL W/PA CHEST MINIMUM 3 VIEWS Medical Imaging Routine Cough Fall from ground level 10/06/2021 2:51 PM EST Health Maintenance Due Date Last [...] filedocumented as of this encounter Results * PT INR (10/06/2021 2:17 PM EST) Prothrombin Time 26.6(H) 11.5 - 14.6 seconds [facility] INR 2.45(H) 0.84 - 1.14 [facility] Specimen Blood - Venous blood specime n (specimen) Narrative [facility] - 10/06/2021 2:48 PM EST Warfarin Therapy INR: 2.0-3.0 conventional anticoagulation INR: 2.5-3.5 high intensity anticoagulation [facility] 57-[address] [place] [address] * TSH WITH FREE T4 IF INDICATED (10/06/2021 2:17 PM EST) TSH 3.11 0.27 - 4.20 uIU/mL [facility] Specimen Blood - Venous blood specime n (specimen) Performing Organization Address [facility] de Phone Number [facility] [address] [place] [address] * MAGNESIUM (10/06/2021 2:17 PM EST) Magnesium 2.6 1.5 - 2.6 mg/dL [facility] Specimen Blood - Venous blood specime n (specimen) Performing Organization Address [facility] Phone Number [facility] [address] [place] [address] * DIGOXIN LEVEL (10/06/2021 2:17 PM EST) Digoxin Level <0.4(L) 0.5 - 2.0 ng/mL [facility] Specimen Blood - Venous blood specime n (specimen) Performing Organization Address [facility] Phone Number [facility] [address] [place] [address] * BNP (NT-PROBNP) (10/06/2021 2:17 PM EST) BNP (NT-PRO-BNP) 2,939(H) <300 pg/mL [facility] Specimen Blood - Venous blood specime n (specimen) [facility] - 10/07/2021 9:44 AM EST Exclude Heart Failure: <300 pg/mL Diagnose Heart Failure: Age <50 yr: >450 pg/mL 50-75 yr: >900 pg/mL >75 yr: >1800 pg/mL GFR is 30-59 mL/min: >1200 pg/mL or Age-adjusted values GFR <30 mL/min: do not use, not reliable Prognostic threshold: 1000 pg/mL Performing Organization Address [facility] de Phone Number [facility] [address] [place] [address] * CBC (10/06/2021 2:17 PM EST) WBC 6.74 4.00 - 10.80 K/uL [facility] RBC 4.24(L) 4.50 - 5.25 M/uL [facility] HGB 14.0 14.0 - 16.8 g/dL [facility] HCT 41.4 40.0 - 48.4 % [facility] MCV 97.6 82.0 - 99.5 fL [facility] MCH 33.0 27.0 - 34.0 pg [facility]10 MCHC 33.8 32.0 - 36.0 g/dL [facility]10 RDW 14.3 11.5 - 15.5 % [facility]10 Plt 173 140 - 400 K/uL [facility]10 MPV 10.1 6.6 - 11.1 fL [facility]10 Specimen Blood - Venous blood specime n (specimen) [facility]10 [address] [facility] [place] [address] * COMPREHENSIVE METABOLIC PANEL (10/06/2021 2:17 PM EST) BUN 23(H) 6 - 20 mg/dL [facility] Creatinine 1.3(H) 0.6 - 1.2 mg/dL [facility] 57[facility]10 Estimated Glomerular Filtration Rate 50(L)Comment:If patient is , multiply estimated GFR by 1.159. >=60 mL/min [facility] 57[facility]10 Sodium 141 135 - 146 mmol/L [facility] 57[facility]10 Potassium 4.9 3.5 - 5.1 mmol/L [facility] 57[facility]10 Chloride 104 98 - 107 mmol/L [facility] 57[facility]10 CO2 27 22 - 32 mmol/L [facility]10 Anion Gap 10 7 - 15 mmol/L [facility] Glucose 121(H) 70 - 120 mg/dL [facility] 57[facility]10 Albumin 4.1 3.8 - 5.0 g/dL [facility] 57[facility]10 AST 22 10 - 50 U/L [facility] [place] [facility] Alkaline Phosphatase 109 35 - 130 U/L [facility] 57[facility]10 Bilirubin, Total 0.7 <=1.2 mg/dL [facility] 57[facility]10 Calcium 9.9 8.4 - 10.2 mg/dL [facility]10 Protein 6.9 6.0 - 8.3 g/dL [facility]10 ALT 15 10 - 50 U/L [facility]10 Specimen Blood - Venous blood specime n (specimen) Performing Organization Address City/State/[facility] Co de Phone Number [facility] [address] [place] [address] documented in this encounter Visit Diagnoses Diagnosis Ischemic cardiomyopathy- Primary Other specified forms of chronic ischemic heart disease Chronic atrial fibrillation (HCC) Atrial fibrillation AICD (automatic cardioverter/defibrillator) present Automatic implantable cardiac defibrillator in situ Coronary artery disease involving [place]-cay[place] coronary artery of seneca-cay[place] heart without angina pectoris ICD (implantable cardioverter-defibrillator) battery depletion Heart failure, systolic, due to CAD (HCC) Unspecified systolic heart failure ICD (implantable cardioverter-defibrillator), single, in situ Cough Fall from ground level Encounter for monitoring diuretic therapy Encounter for therapeutic drug monitoring Permanent atrial fibrillation (HCC) Atrial fibrillation Myocardial infarction, unspecified NJ type, unspecified artery (HCC)- Primary Atrial fibrillation, unspecified type (HCC) documented in this encounter Advance Directives Documents on File Type Date Recorded Patient Neuropsychology Medical Consultant Expl anation Advanced Directive Advanced Directive [...] Advanced Directive 01/26/2013 11:57 AM Care Teams Deaf And Hard Of Hearing Teacher Relationship Specialty Start Date End Date Hank Oshea MD [address], [place] [id number] PCP - General Internal Medicine 08/13/14 documented as of this encounter"
--- OUTSIDE RECORDS SUMMARY | 2023-09-08 00:45 | External Medical Summary | Summary of Care ---
Author Name Unknown Organization [place] [address] Care Team Providers Care Media Sales Consultant Name Role Phone Hank Oshea MD Primary Care Provider [phone] Encounter Details Date Type Department Care Team Description 10/06/2021 [facility]ation [facility] [place] [address] [facility] [address] Encounter for monitoring diuretic therapy; Chronic atrial fibrillation (HCC); Cough Allergies No known active allergiesdocumented as of this encounter (statuses as of 10/08/2021) Medications Medication Sig Dispensed Refills Start Date End Date Status VITAMIN D 2000 UNITS PO TABS one tablet daily 0 Activ e nitroglycerin (NITROSTAT) 0.4 MG SUBLIndications:Cor onary artery disease involving [place] coronary artery of ho-chunk heart without angina pectoris,Myocardial infarction involving other [...] Oral Tablet (Lanoxin)Indication s:Coronary artery disease involving ho-[place] coronary artery of ho-chunk heart without angina pectoris,Chronic atrial fibrillation (HCC) [...] by mouth daily. 90 Tab 3 12/16/2020 1 Discontinu ed(Refill) Entresto 24-26 MG Oral Tablet (sacubitril-valsart an 24-26 mg per tab)Indications:Hea rt failure, systolic, due to CAD (HCC),Ischemic cardiomyopathy Take 1/2 tab each am and pm 90 Tab 3 04/04/2021 1 Discontinu ed(Refill) documented as of this encounter (statuses as of 10/08/2021) Active Problems Problem Noted Date AICD (automatic cardioverter/defibrillat or) present 02/10/2013 Heart failure, systolic, due to CAD 06/2013 Ischemic cardiomyopathy 01/06/2013 Atrial fibrillation 01/06/2013 CAD (coronary artery disease) 07/25/2012 CA (myocardial infarction) 07/25/2012 documented as of this encounter (statuses as of 10/08/2021) Immunizations Name Administration Dates Next Due DTaP [...] on file documented as of this encounter Nursing Notes * Entry Data - 10/07/2021 5:33 AM EST Automated conversion to a Documentation Encounter documented in this encounter Miscellaneous Notes * Result Andre - Wilmar Lay PA-C - 10/07/2021 12:23 PM EST ok * Result Andre - Wilmar Lay PA-C - 10/07/2021 10:51 AM EST Labs are OK/stable. Repeat a basic metabolic panel at follow-up Please fax laboratory work results to PCP, Dr. Hank Oshea MD ([facility]) documented in this encounter Plan of Treatment Upcoming Encounters Date Type Specialty Care Team Description 10/20/2021 Office Visit Cardiology [facility] Lay [facility] [place] [address] 10/21/2021 Pharmacy Granite Sandblaster Apprentice, Pharmacy Reimbursement [address] [place], [place] [id number] 11/03/2021 Cardiac Studies Cardiology [facility] [place] [facility] [place] [address] 11/17/2021 Anticoagulation Pharmacy Pharmacist1, [facility] 200 [facility] [place] [address] 12/04/2021 Cardiac Studies Cardiology [facility] 132 [facility] [address] Health Maintenance Due Date Last Done Comments [...] Name Priority Date/Time Associated Diagnosis Comments TSH WITH FREE T4 IF INDICATED Routine 10/06/2021 2:17 PM EST Chronic atrial fibrillation (HCC) BNP (NT-PROBNP) Routine 10/06/2021 2:17 PM EST Cough COMPREHENSIVE METABOLIC PANEL Routine 10/06/2021 2:17 PM EST Encounter for monitoring diuretic therapy PT INR Routine 10/06/2021 2:17 PM EST Chronic atrial fibrillation (HCC) CBC Routine 10/06/2021 2:17 PM EST Chronic atrial fibrillation (HCC) MAGNESIUM Routine 10/06/2021 2:17 PM EST Encounter for monitoring diuretic therapy DIGOXIN LEVEL Routine 10/06/2021 2:17 PM EST Chronic atrial fibrillation (HCC) documented in this encounter Results * PT INR (10/06/2021 2:17 PM EST) Prothrombin Time 26.6(H) 11.5 - 14.6 seconds [facility] 57-10 INR 2.45(H) 0.84 - 1.14 [facility] 57-10 Specimen Blood - Venous blood specime n (specimen) Narrative [facility] 57-10 - 10/06/2021 2:48 PM EST Warfarin Therapy INR: 2.0-3.0 conventional anticoagulation INR: 2.5-3.5 high intensity anticoagulation Performing Organization Address City/[facility]/ZIP Co de Phone Number [facility] 57-10 [address] [place] [address] * TSH WITH FREE T4 IF INDICATED (10/06/2021 2:17 PM EST) TSH 3.11 0.27 - 4.20 uIU/mL [facility] Specimen Blood - Venous blood specime n (specimen) [facility] [address] [place] [address] * MAGNESIUM (10/06/2021 2:17 PM EST) Magnesium 2.6 1.5 - 2.6 mg/dL [facility] Specimen Blood - Venous blood specime n (specimen) Performing Organization Address [facility] de Phone Number LAB[facility] [address] [place] [address] * DIGOXIN LEVEL (10/06/2021 2:17 PM EST) Digoxin Level <0.4(L) 0.5 - 2.0 ng/mL [facility] Specimen Blood - Venous blood specime n (specimen) Performing Organization Address [facility] de Phone Number [facility] [address] [place] [address] * BNP (NT-PROBNP) (10/06/2021 2:17 PM EST) BNP (NT-PRO-BNP) 2,939(H) <300 pg/mL [facility] Specimen Blood - Venous blood specime n (specimen) [facility] - 10/07/2021 9:44 AM EST Exclude Heart Failure: <300 pg/mL Diagnose Heart Failure: Age <50 yr: >450 pg/mL 50-75 yr: >900 pg/mL >75 yr: >1800 pg/mL GFR is 30-59 mL/min: >1200 pg/mL or Age-adjusted values GFR <30 mL/min: do not use, not reliable Prognostic threshold: 1000 pg/mL Performing Organization Address [facility] de Phone Number [facility] [address] [place] [address] * CBC (10/06/2021 2:17 PM EST) WBC [...] 33.8 32.0 - 36.0 g/dL [facility] [place] 57-10 RDW 14.3 11.5 - 15.5 % [facility] P[facility] [place] 57-10 Plt 173 140 - 400 K/uL LAB[facility]ORY PO [facility] [place] 57-10 MPV 10.1 6.6 - 11.1 fL [facility] [place] 57-10 Specimen Blood - Venous blood specime n (specimen) Performing Organization Address City/[facility]/ZIP Co de Phone Number [facility] [place] 57-10 [facility] [place] [address] * COMPREHENSIVE METABOLIC PANEL (10/06/2021 2:17 PM EST) BUN 23(H) 6 - 20 mg/dL [facility] [place] 57-10 Creatinine 1.3(H) 0.6 - 1.2 mg/dL [facility] [place] 57-10 Estimated Glomerular Filtration Rate 50(L)Comment:If patient is , multiply estimated GFR by 1.159. >=60 mL/min [facility] [place] 57-10 Sodium 141 135 - 146 mmol/L [facility] [place] 57-10 Potassium 4.9 3.5 - 5.1 mmol/L [facility] [place] 57-10 Chloride 104 98 - 107 mmol/L [facility] [place] 57-10 CO2 27 22 - 32 mmol/L [facility] [place] 57-10 Anion Gap 10 7 - 15 mmol/L [facility] [place] 57-10 Glucose 121(H) 70 - 120 mg/dL [facility] [place] 57-10 Albumin 4.1 3.8 - 5.0 g/dL [facility] [place] 57-10 AST 22 10 - 50 U/L [facility] [place] 57-10 Alkaline Phosphatase 109 35 - 130 U/L [facility] [place] 57-10 Bilirubin, Total 0.7 <=1.2 mg/dL [facility] [place] 57-10 Calcium 9.9 8.4 - 10.2 mg/dL [facility] [place] 57-10 Protein 6.9 6.0 - 8.3 g/dL [facility] [place] 57-10 ALT 15 10 - 50 U/L [facility] [place] 57-10 Specimen Blood - Venous blood specime n (specimen) Performing Organization Address City/[facility]/ZIP Co de Phone Number [facility] [place] 57-10 [address] [place] [address] documented in this encounter Visit Diagnoses Diagnosis Encounter for monitoring diuretic therapy Encounter for therapeutic drug monitoring Chronic atrial fibrillation (HCC) Atrial fibrillation Cough documented in this encounter Advance Directives Documents on File Type Date Recorded Patient Chief Clinical Dietitian Expl anation Advanced Directive Advanced Directive Advanced [...] Advanced Directive 01/26/2013 11:57 AM Care Teams Media Sales Consultant Relationship Specialty Start Date End Date Hank Oshea MD [address] [address] PCP - General Internal Medicine 08/13/14 documented as of this encounter
--- OUTSIDE RECORDS SUMMARY | 2023-09-08 00:45 | External Medical Summary | Summary of Care ---
Author Name Unknown Organization [place] [address] Care Team Providers Care Clinical Medical Assistant Name Role Phone Hank Oshea MD Primary Care Provider Reason for Referral * Precert (Within 10 days (routine)) - Authorized Specialty Diagnoses / Procedures Referred By Sandy maki Referred To Contact Radiology Diagnoses Rib deformity Abnormal chest x-ray Procedures CT CHEST WO CONTRAST Wilmar Lay PA-C 132 [employer] [place] [address] Referral ID Status Reason Start Date Expiration Date V isits Requested Visits Authorized [id number] Authorized 10/10/2021 1 1 Reason for Visit * Reason Onset Date Comments Test Results 10/08/2021 Encounter Details Date Type Department Care Team Description 10/08/2021 Telephone Cardiology, [facility] [address] [place] [address] Wilmar Lay PA-C [address] [facility] [address] Test Results Allergies No known active allergiesdocumented as of this encounter (statuses as of 10/10/2021) Medications Medication Sig Dispensed Refills Start Date End Date Status VITAMIN D 2000 UNITS PO TABS one tablet daily 0 Activ e nitroglycerin (NITROSTAT) 0.4 MG SUBLIndications:Cor onary artery disease involving [place] coronary artery of wiyot heart without angina pectoris,Myocardial infarction involving other [...] Oral Tablet (Lanoxin)Indication s:Coronary artery disease involving wiyot coronary artery of wiyot heart without angina pectoris,Chronic atrial fibrillation (HCC) [...] as of this encounter (statuses as of 10/10/2021) Active Problems Problem Noted Date AICD (automatic cardioverter/defibrillat or) present 02/10/2013 Heart failure, systolic, due to CAD 06/2013 Ischemic cardiomyopathy 01/06/2013 Atrial fibrillation 01/06/2013 CAD (coronary artery disease) 07/25/2012 MS (myocardial infarction) 07/25/2012 documented as of this encounter (statuses as of 10/10/2021) Immunizations Name Administration Dates Next Due DTaP [...] Miscellaneous Notes * Telephone Encounter - KEITH Maradiaga - 10/10/2021 9:15 AM EST 07/11/18 CT Imaging and report loaded into PACS and now can be viewed through [employer]. * Telephone Encounter - KEITH Brown - 10/09/2021 3:12 PM EST Spoke with pt's . Pt is scheduled 10/20/[address] * Telephone Encounter - Yina Elizondo RN - 10/09/2021 11:00 AM EST Called, spoke with patient/spouse. Both verbalizing understanding of results/recommendations. Agreeable to proceed with Chest CT. Order pended. Will contact [facility] CT department to push images from 2018 over. [facility]. Scheduling, please assist in arranging. Patient/spouse [...] a CT scan of the chest at [facility] on July 11, 2018. Itwould be best [...] Ordering Provider: Wilmar Lay PA-C Callback Number: [phone] Patient has been made aware that the [...] Office Visit Cardiology Wil[facility] Lay [facility]-C [facility] [address] 10/20/2021 Imaging Radiology 10/21/2021 Pharmacy Senior Producer, Pharmacy Reimbursement [address] [place] [address] 11/03/2021 Cardiac Studies Cardiology [facility] [address] 11/17/2021 Anticoagulation Pharmacy Pharmacist1, [facility] 200 [place] [address] 12/04/2021 Cardiac Studies Cardiology [facility] [address] [facility] [address] Scheduled Orders Name Type Priority Associated Diagnoses [...] Documents on File Type Date Recorded Patient Media/Instructional Designer Expl anation Advanced Directive Advanced Directive Advanced [...] Advanced Directive 01/26/2013 11:57 AM Care Teams Clinical Medical Assistant Relationship Specialty Start Date End Date Hank Oshea MD [address] [address] PCP - General Internal Medicine 08/13/14 documented as of this encounter
--- OUTSIDE RECORDS SUMMARY | 2023-09-08 00:45 | External Medical Summary ---
Author Name Unknown Address Unknown Organization K0G:[facility] [place] 57-10 - [address] [place] [address] Laboratory Report Ordering Provider Test Date Status ROXANA MAYA 10/06/2021 14:17:45 Final Observation Date Value Abnormality Reference (Units ) Status BUN 10/06/2021 14:17:45 23 Above high normal 6-20 (mg/dL) Final Creatinine 10/06/2021 14:17:45 1.3 Above high normal 0.6-1.2 (mg/dL) Final Glomerular filtration rate/1.73 sq M.predicted [Volume Rate/Area] in Serum, Plasma or Blood by Creatinine-based formula (CKD-EPI) 10/06/2021 14:17:45 50 Below low normal >=60 (mL/min) Final If patient is [place] an, multiply estimated GFR by 1.159. Sodium 10/06/2021 14:17:45 141 135-146 (m mol/L) Final Potassium 10/06/2021 14:17:45 4.9 3.5-5.1 (m mol/L) Final Cl 10/06/2021 14:17:45 104 98-107 (mm ol/L) Final CO2 10/06/2021 14:17:45 27 22-32 (mmo l/L) Final Anion gap 10/06/2021 14:17:45 10 7-15 (mmol /L) Final Glucose 10/06/2021 14:17:45 121 Above high normal 70 -120 (mg/dL) Final Albumin 10/06/2021 14:17:45 4.1 3.8-5.0 (g /dL) Final AST (Aspartate aminotransferase) 10/06/2021 14:17:45 22 10-50 (U/L) Fin al Alk Phos 10/06/2021 14:17:45 109 35-130 (U/ L) Final Bilirubin, Total 10/06/2021 14:17:45 0.7 <=1 .2 (mg/dL) Final Calcium 10/06/2021 14:17:45 9.9 8.4-10.2 ( mg/dL) Final Protein 10/06/2021 14:17:45 6.9 6.0-8.3 (g /dL) Final ALT (Alanine aminotransferase) 10/06/2021 14:17:45 15 10-50 (U/L) Pedro geronimo Performing Location [facility] 57-1 0 - [address] [place] [address]
--- OUTSIDE RECORDS SUMMARY | 2023-09-08 00:45 | External Medical Summary | Summary of Care ---
Author Name Unknown Organization [place] [address] Care Team Providers Care Telegraphic Service Dispatcher Name Role Phone Hank Oshea MD Primary Care Provider [phone] Reason for Visit * Reason Onset Date Comments Test Results 10/21/2021 Encounter Details Date Type Department Care Team Description 10/21/2021 Telephone Cardiology, [facility] [address] [employer] [address] [place] [address] Wilmar Lay PA-C [address] [employer] [facility] [place] [address] Test Results Allergies No known active allergiesdocumented as of this encounter (statuses as of 10/21/2021) Medications Medication Sig Dispensed Refills Start Date End Date Status VITAMIN D 2000 UNITS PO TABS one tablet daily 0 Activ e nitroglycerin (NITROSTAT) 0.4 MG SUBLIndications:Cor onary artery disease involving [place] coronary artery of [place] heart without angina pectoris,Myocardial infarction involving other [...] Oral Tablet (Lanoxin)Indication s:Coronary artery disease involving [place] coronary artery of [place] heart without angina pectoris,Chronic atrial fibrillation (HCC) [...] Encounter - Rebel Durant LPN - 10/21/2021 8:03 AM EST Called patient and spoke to his spouse and informed of Wilmar's message. Patient's spouse verbalized understanding. ----- Message from Wilmar Lay PA-C sent at 10/20/2021 10:10 PM EST ----- Stable. Continue as prescribed. Please notify via telephone. documented in this encounter Plan of Treatment Upcoming Encounters Date Type Specialty Care Team Description 10/21/2021 Pharmacy Cash Management Associate, Pharmacy Reimbursement [address] [place], [place] [id number] 11/03/2021 Cardiac Studies Cardiology [place], [facility] [address] [place] [address] 11/17/2021 Anticoagulation Pharmacy Pharmacist1, [facility] [address] 12/02/2021 Office Visit Cardiology Wilmar Lay PA-C [address] [place] [address] 12/04/2021 [facility] [address] [place] [address] Health Maintenance Due Date Last Done Comments [...] Documents on File Type Date Recorded Patient Business Office Coordinator Expl anation Advanced Directive Advanced Directive [...] Advanced Directive 01/26/2013 11:57 AM Care Teams Telegraphic Service Dispatcher Relationship Specialty Start Date End Date Hank Oshea MD [address] [place] [address] PCP - General Internal Medicine 08/13/14 documented as of this encounter
--- OUTSIDE RECORDS SUMMARY | 2023-09-08 00:45 | External Medical Summary | Summary of Care ---
Author Name Unknown Organization [place] [address] Care Team Providers Care High School Coordinator Name Role Phone Hank Oshea MD Primary Care Provider [phone] Reason for Visit * Reason Comments Patient Assistance Program Encounter Details Date Type Department Care Team Description 10/07/2021 Pharmacy Pharmacy, [facility] [address] [place] [address] Coordinator, Pharmacy Reimbursement [address] [place], [place] [id number] Ischemic cardiomyopathy* Allergies No known active allergiesdocumented as of this encounter (statuses as of 10/07/2021) Medications Medication Sig Dispensed Refills Start Date End Date Status VITAMIN D 2000 UNITS PO TABS one tablet daily 0 Activ e nitroglycerin (NITROSTAT) 0.4 MG SUBLIndications:Cor onary artery disease involving [place] coronary artery of [...] Oral Tablet (Lanoxin)Indication s:Coronary artery disease involving [place] coronary artery of [...] encounter Progress Notes * KEITH Palomares - 10/07/2021 11:47 AM EST Follow up needs to be made to [place] [place] [address] [place] [address] Patient Phone Numbers RX:Entresto Patient needs to re-enroll w/ [employer] pap, will call and assess for pace/pacenet first, then pursue pap if needed. 10/07-Tried to call patient, keeps ringing and then automated message stating mailbox not in service. Mailed pap forms for [employer] to home with return envelope. Will attempt again in two week to check on forms. KEITH Palomares Pharmaceutical Pathological Technician 10/07/2021, 1:54 PM documented in this encounter Plan of Treatment Upcoming Encounters Date Type Specialty Care Team Description 10/07/2021 Anticoagulation Pharmacy Pharmacist1, [facility] 200 [facility] [place] [address] Myocardial infarction, unspecified VT type, unspecified artery (HCC)*; Atrial fibrillation, unspecified type (HCC) 10/20/2021 Office Visit Cardiology Wilmar Lay PA-C 132 [facility] [place] [address] 10/21/2021 Pharmacy Phone Specialist, Pharmacy Reimbursement [address] [place] [address] 11/03/2021 Cardiac Studies Cardiology [facility] [address] [place] [address] 11/17/2021 Anticoagulation Pharmacy Pharmacist1, [facility] [address] [place] [address] 12/04/2021 Cardiac Studies Cardiology [facility] [address] [place] [address] Health Maintenance Due Date Last Done Comments [...] specified forms of chronic ischemic heart disease Myocardial infarction, unspecified VT type, unspecified artery (HCC)- Primary Atrial fibrillation, unspecified type (HCC) documented in this encounter Advance Directives Documents on File Type Date Recorded Patient Bark Skinner Expl anation Advanced Directive Advanced Directive Advanced [...] Advanced Directive 01/26/2013 11:57 AM Care Teams High School Coordinator Relationship Specialty Start Date End Date Hank Oshea MD [address] [facility] [address] [place] [address] PCP - General Internal Medicine 08/13/14 documented as of this encounter
--- OUTSIDE RECORDS SUMMARY | 2023-09-08 00:45 | External Medical Summary ---
Author Name Unknown Address Unknown Organization K0G:[facility]ORY [facility] [place] 57-10 - [address] [place] [address] Laboratory Report Ordering Provider Test Date Status ROXANA MAYA 10/06/2021 14:17:45 Final Observation Date Value Abnormality Reference (Units ) Status WBC, Total 10/06/2021 14:17:45 6.74 4.00-10.8 0 (K/uL) Final RBC 10/06/2021 14:17:45 4.24 Below low normal 4.5 0-5.25 (M/uL) Final Hemoglobin 10/06/2021 14:17:45 14.0 14.0-16.8 (g/dL) Final HCT 10/06/2021 14:17:45 41.4 40.0-48.4 (%) Final MCV 10/06/2021 14:17:45 97.6 82.0-99.5 (fL) Final MCH 10/06/2021 14:17:45 33.0 27.0-34.0 (pg) Final MCHC 10/06/2021 14:17:45 33.8 32.0-36.0 (g/dL) Final RDW 10/06/2021 14:17:45 14.3 11.5-15.5 (%) Final Platelets 10/06/2021 14:17:45 173 140-400 (K /uL) Final MPV 10/06/2021 14:17:45 10.1 6.6-11.1 ( fL) Final Performing Location [facility]ORY [facility] [place] 57-1 0 - [address] [place] [address]
--- OUTSIDE RECORDS SUMMARY | 2023-09-08 00:45 | External Medical Summary | Summary of Care ---
Author Name Unknown Organization [place] [address] Care Team Providers Care Make Up Worker Name Role Phone Hank Oshea MD Primary Care Provider [phone] Reason for Visit * Reason Comments Defibrillator Clinic device nearing BIT SHARPENER Encounter Details Date Type Department Care Team Description 09/01/2021 Cardiac Studies Cardiology, [facility] [address] [place] [address] [place], Pacer Clinic [facility] 132 [facility] [place] [address] Ischemic cardiomyopathy*; Chronic atrial fibrillation (HCC); AICD (automatic cardioverter/defibril lator) present Allergies No known active allergiesdocumented as of this encounter (statuses as of 09/08/2021) Medications Medication Sig Dispensed Refills Start Date End Date Status VITAMIN D 2000 UNITS PO TABS one tablet daily 0 Active nitroglycerin (NITROSTAT) 0.4 MG SUBLIndications:Coronar y artery disease involving [place] coronary artery [...] Oral Tablet (Lanoxin)Indications:Co ronary artery disease involving [place] coronary artery of [place] heart without angina pectoris,Chronic atrial fibrillation (HCC) TAKE 1 TABLET BY MOUTH ON WEDNESDAY, WEDNESDAY AND WEDNESDAY. 28 Tab 11 05/12/2021 Active documented as of this encounter (statuses as of 09/08/2021) Active Problems Problem Noted Date AICD (automatic cardioverter/defibrillat or) present 02/10/2013 Heart failure, systolic, due to CAD 06/2013 Ischemic cardiomyopathy 01/06/2013 Atrial fibrillation 01/06/2013 CAD (coronary artery disease) 07/25/2012 NC (myocardial infarction) 07/25/2012 documented as of this encounter (statuses as of 09/08/2021) Immunizations Name Administration Dates Next Due DTaP [...] encounter Progress Notes * GHULAM Pino - 09/04/2021 2:55 PM EDT REMOTE MONITORING TRANSMISSION - DEFIBRILLATOR -- 09/02/2021 TYPE OF VISIT: This is a scheduled remote monitoring transmission. INDICATION: I25.5 Ischemic cardiomyopathy (primary encounter diagnosis) I48.20 Chronic atrial fibrillation (HCC) Z95.810 AICD (automatic cardioverter/defibrillator) present IMPLANTING PHYSICIAN:Dre Gonzaelz M.D. IMPLANT/DEVICE HISTORY:02/02/2013 CURRENT SYSTEM: ICD:MedtronicModel:[id number] SN:[id number] RV lead:MedtronicModel:[id number] SN:[id number] Abandoned leads:None ALERTS/ADVISORIES:None PATIENT EVALUATION: Presenting rhythm :Atrial fibrillation. DEVICE EVALUATION: R V Auto threshold: Not measured Sensin.8mV Pacing impedance:532ohms Percentage paced: 0.3 % HVLI:65ohms Battery:2.63volts PANCHO:2.63volts Charge time:12.8seconds Short V-V intervals:0 PVC singles counter :163.6per hour over a 36day period. (this is an increase) Thoracic impedance monitoring:N/A VT/VF episodes (since last evaluation):0 Past VT/VF episodes: First shock:02/02/2013with implant procedure. Most recent shock:same Total ICD shocks/ATP therapy: Appropriate shocks:1 Inappropriate shocks:0 ATP therapy:0 FINAL ICD PARAMETERS: Pacemaker mode/rate:[id number] RV Amplitude:1.5volts Pulse width:0.5msec VT detection:OFF FVT detection:ON Rate - 188- 231bpm(Burst (1), 25joules, 35 joules x 4 ) VF detection:ON Rate - 188bpm ( ATP during charging,25 joules,35 joules x5) Mode switch:Not available IMPRESSION: Normal defibrillator function. Battery is nearing BIT SHARPENER PLAN: The next remote monitoring transmission is scheduled for 1 month to monitor device longevity. Nurse: [facility] M[facility]KER:Dr. Langston This patient was interrogated remotely via [...] Encounters Date Type Specialty Care Team Description 09/29/2021 Cardiac Studies Cardiology [facility], Pacer [facility] [address] [facility] [address] 10/06/2021 Office Visit Cardiology Wilmar Lay PA-C [address] [facility] [address] 10/10/2021 Anticoagulation Pharmacy Pharmacist1, [facility] [address] [place] [address] 11/03/2021 Cardiac Studies Cardiology [facility], Pacer [facility] [address] [facility] [place] [address] 12/04/2021 Cardiac Studies [facility], Pacer [facility] 132 [place] [address] Scheduled Orders Name Type Priority Associated Diagnoses Orde r Schedule DEFIBRILLATOR REMOTE INTERROGATION EVAL/INTERP,TO 90D Procedures Routine Ischemic cardiomyopathy Chronic atrial fibrillation (HCC) AICD (automatic cardioverter/defibrilla tor) present Ordered: 09/04/2021 PACER/ICD REMOTE DATA CAPTURE/TECH REVIEW,90D Procedures Routine Ischemic cardiomyopathy Chronic atrial fibrillation (HCC) AICD (automatic cardioverter/defibrilla tor) present Ordered: 09/04/2021 Health Maintenance Due Date Last Done Comments [...] Documents on File Type Date Recorded Patient Hydraulic Controls Technician Expl anation Advanced Directive Advanced Directive [...] Advanced Directive 01/26/2013 11:57 AM Care Teams Make Up Worker Relationship Specialty Start Date End Date Hank Oshea MD [address] [facility] [address] [place] [address] PCP - General Internal Medicine 08/13/14 documented as of this encounter
--- OUTSIDE RECORDS SUMMARY | 2023-09-08 00:46 | External Medical Summary | Summary of Care ---
Author Name Unknown Organization [place] [address] Care Team Providers Care Acting Section Chief Name Role Phone Hank Oshea MD Primary Care Provider Reason for Visit * Reason Comments Dosage Adjustment In Person (Anticoag Cl inic) Encounter Details Date Type Department Care Team Description 08/29/2021 Anticoagulation Pharmacy, [facility] [address] [facility] [place] [place] [address] Pharmacist1, [facility] 200 [facility] [place] [id number] Myocardial infarction, unspecified AR type, unspecified artery (HCC)*; Chronic atrial fibrillation (HCC); Atrial fibrillation, unspecified type (HCC); Anticoagulation management encounter; ocean transportation intermediary 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 therapy Allergies No Known Active Allergiesdocumented as of this encounter (statuses as of 08/29/2021) Medications Medication Sig Dispensed Refills Start Date End Date Status VITAMIN D 2000 UNITS PO TABS one tablet daily 0 Active nitroglycerin (NITROSTAT) 0.4 MG SUBLIndications:Coronar y artery disease involving [place] coronary artery of [place] heart without angina pectoris,Myocardial infarction involving other [...] Oral Tablet (Lanoxin)Indications:Co ronary artery disease involving [place] coronary artery of [place] heart without angina pectoris,Chronic atrial fibrillation (HCC) TAKE 1 TABLET BY MOUTH ON WEDNESDAY, WEDNESDAY AND WEDNESDAY. 28 Tab 11 05/12/2021 Active documented as of this encounter (statuses as of 08/29/2021) Active Problems Problem Noted Date AICD (automatic cardioverter/defibrillat or) present 02/10/2013 Heart failure, systolic, due to CAD 06/2013 Ischemic cardiomyopathy 01/06/2013 Atrial fibrillation 01/06/2013 CAD (coronary artery disease) 07/25/2012 AR (myocardial infarction) 07/25/2012 documented as of this encounter (statuses as of 08/29/2021) Immunizations Name Administration Dates Next Due DTaP - Dipth/Tet/Acell Pertussis 07/29/2017 Seasonal Influenza, Split, IIV3, With Preserve, Inj 07/29/2017,08/08/2012 documented as of this encounter Social History Tobacco Use Types Packs/Day Years Used Date Former Smoker Cigarettes, Pipe 1 44 Quit: 03/27/1995 Smokeless Tobacco: Never Used Alcohol Use Drinks/Week oz/Week Comments Yes occasionally Sex Assigned at Date Recorded Not on file Job Start Date Occupation Industry Not on file Not on file Not on file documented as of this encounter Progress Notes * Anibal Mcfarland RPh - 08/29/2021 11:53 AM EDT Images from the original note were not included. Medication Therapy Disease Management - Anticoagulation Lucian Larson Jr. 1935 Patient Findings Negatives: Signs/symptoms of thrombosis, Signs/symptoms of bleeding, Change in health, Change in alcohol use, Change in activity, Upcoming invasive procedure, Missed doses, Extra doses, Change in medications, Change in diet/appetite, Bruising INR Result As of 08/29/2021 INR goal: 2.0-3.0 INR used for dosin.3 (08/29/2021) Warfarin Plan As of 08/29/2021 Full warfarin instructions: 08/29: 2.5 mg; Otherwise 5 mg every day Next INR check: 10/10/2021 Repeat PT/INR in 6 week(s) Weekly dose: not changed Anibal Caceres RPh, CACP, CDE Clinical Pharmacist Medication Therapy Management Clinic 08/29/2021 11:59 AM documented in this encounter Plan of Treatment Upcoming Encounters Date Type Specialty Care Team Description 09/01/2021 [facility] [address] [facility] [place] [address] [phone] 09/29/2021 [facility] [address] [place] [address] [phone] 10/06/2021 Office Visit Cardiology Wilmar Lay PA-C [address] [facility] [place] [address] [phone] 10/10/2021 Anticoagulation Pharmacy Pharmacist1, [facility] 200 [place] [address] 11/03/2021 Cardiac Studies Cardiology [facility] 132 [facility], [place] [address] [phone] 12/04/2021 Cardiac Studies Cardiology [facility] 132 [place] [address] [phone] Health Maintenance Due Date Last Done Comments [...] Comments INR FINGERSTICK, POINT OF CARE STAT 08/29/2021 11:56 AM EDT Atrial fibrillation, unspecified type (HCC) Myocardial infarction, unspecified AR type, unspecified artery (HCC) Anticoagulation management encounter half-way 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 therapy documented in this encounter Results * INR FINGERSTICK, POINT OF CARE (08/29/2021 11:56 AM EDT) Fingerstick INR 3.3 INR [facility]-02 Specimen Blood Narrative Performed At Therapeutic ranges for non-operative patients: Prophylaxsis/treatment of DVT: (Range:2.0-3.0) Treatment of pulmonary embolism:(Range:2.0-3.0) Prevention of systemic embolism from: -tissue heart valves -acute myocardial infarction -valvular heart disease -atrial fibrillation (Range: 2.0-3.0) Mechanical prosthetic valves: (Range: 2.5-3.5) [facility] 56- Performing Organization Address City/State/[facility] Co de Phone Number [facility] [address]- [address] [place] [address] documented in this encounter Visit Diagnoses Diagnosis Myocardial infarction, unspecified AR type, unspecified artery (HCC)- Primary Chronic atrial fibrillation (HCC) Atrial fibrillation Atrial fibrillation, unspecified type (HCC) Anticoagulation management encounter Encounter for therapeutic drug monitoring half-way 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 therapy documented in this encounter Advance Directives Documents on File Type Date Recorded Patient Electrical Accessories I Assembler Expl anation Advanced Directive Advanced Directive 01/26/2013 11:57 AM Advanced Directive Advanced Directive Advanced Directive Advanced [...]
--- OUTSIDE RECORDS SUMMARY | 2023-09-08 00:46 | External Medical Summary ---
Author Name Unknown Address Unknown Organization K09:[facility] [address] Laboratory Report Ordering Provider Test Date Status SHEKHAR COLBERT 06/17/2021 11:24:00 Final Observation Date Value Abnormality Reference (Units ) Status INR in Capillary blood by Coagulation assay 06/17/2021 11:24:00 2.7 (INR) Final Performing Location [facility] [address]
--- OUTSIDE RECORDS SUMMARY | 2023-09-08 00:46 | External Medical Summary | Summary of Care ---
Author Name Unknown Organization [place] [address] Care Team Providers Care Ceramic Engineering Professor Name Role Phone Hank Oshea MD Primary Care Provider [phone] Reason for Visit * Reason Comments Defibrillator Clinic Encounter Details Date Type Department Care Team Description 05/12/2021 Cardiac Studies Cardiology, [facility] 132 [facility] [place] [address] [place], Pacer Clinic [facility] [address] [facility] [place] [address] [phone] Ischemic cardiomyopathy*; AICD (automatic cardioverter/defibril lator) present; ICD (implantable cardioverter-defibril lator) battery depletion Allergies No Known Active Allergiesdocumented as of this encounter (statuses as of 05/12/2021) Medications Medication Sig Dispensed Refills Start Date End Date Status VITAMIN D 2000 UNITS PO TABS one tablet daily 0 Active nitroglycerin (NITROSTAT) 0.4 MG SUBLIndications:Coronar y artery disease involving [place] coronary artery of [place] heart without angina pectoris,Myocardial infarction involving other [...] Oral Tablet (Lanoxin)Indications:Co ronary artery disease involving [place] coronary artery of [place] heart without angina pectoris,Chronic atrial fibrillation (HCC) TAKE 1 TABLET BY MOUTH ON WEDNESDAY, WEDNESDAY AND WEDNESDAY. 28 Tab 11 05/12/2021 Active documented as of this encounter (statuses as of 05/12/2021) Active Problems Problem Noted Date AICD (automatic cardioverter/defibrillat or) present 02/10/2013 Heart failure, systolic, due to CAD 06/2013 Ischemic cardiomyopathy 01/06/2013 Atrial fibrillation 01/06/2013 CAD (coronary artery disease) 07/25/2012 [place] (myocardial infarction) 07/25/2012 documented as of this encounter (statuses as of 05/12/2021) Immunizations Name Administration Dates Next Due DTaP [...] as of this encounter Progress Notes * Sosa Cotter, SHAMA - 05/12/2021 10:21 AM EDT This patient was interrogated remotely via the Heart Rhythm Device clinic by the device clinic nurse. The device function was found to be normal. No changes were made to the programmed parameters. I have personally reviewed the results of the device evaluation and I agree with the nurse's finding, conclusions and disposition. Denis Langston MD REMOTE MONITORING TRANSMISSION - DEFIBRILLATOR -- 05/12/2021 TYPE OF VISIT: This is a scheduled remote monitoring transmission. INDICATION: I25.5 Ischemic cardiomyopathy (primary encounter diagnosis) I48.91 Atrial fibrillation (HCC) Z95.810 AICD (automatic cardioverter/defibrillator) present Z45.02 ICD (implantable cardioverter-defibrillator) battery depletion IIMPLANTING PHYSICIAN:Dre Gonzalez M.D. IMPLANT/DEVICE HISTORY:02/02/2013 CURRENT SYSTEM: ICD:MedtronicModel:[id number] SN:[id number] RV lead:MedtronicModel:[id number] SN:[id number] Abandoned leads: None ALERTS/ADVISORIES: none PATIENT EVALUATION: Presenting rhythm : Normal sinus rhythm with intact AV node function. DEVICE EVALUATION: Atrial R V Auto threshold: --- volts at --- msec Sensin.4 mV Pacing impedance: 532 ohms Percentage paced 1.7 % HVLI: 58 ohms Battery: 2.64 volts PANCHO: 2.63 volts Charge time: 11.9 seconds Short V-V intervals: 0 PVC singles: 176 / hour in a 30 day period (this is increased ) Mode switch episodes: 0 Thoracic impedance monitoring: NA VT/VF episodes (since last evaluation): 0 Past VT/VF episodes: First shock: 02/02/2013 @ impalnt Most recent shock: same Total ICD shocks/ATP therapy: Appropriate shocks: 1 Inappropriate shocks: ATP therapy: FINAL ICD PARAMETERS: Pacemaker mode/rate: VVI at 50 bpm Atrial RV Amplitude: 1.5 volts Pulse width: 0.4 msec VT detection:OFF FVT detection:ON Rate - 188-231bpm(Burst (1), 25joules, 35 joules x 4 ) VF detection:ON Rate - 188bpm ( ATP during charging,25 joules,35 joules x5) Mode switch:Not available IMPRESSION: Normal defibrillator function. Stable pacing and sensing thresholds PLAN: The next remote monitoring transmission is scheduled for 1 mo. Nurse: Sosa Cotter LPN SLAG WHEELER: documented in this encounter Plan of Treatment Upcoming Encounters Date Type Specialty Care Team Description 05/16/2021 Anticoagulation Pharmacy Pharmacist1, [facility] [address] [place] [address] 06/16/2021 [facility] [address] [place] [address] [phone] 07/28/2021 Cardiac Studies Cardiology [facility], Pacer [facility] [address] [place] [address] [phone] 10/06/2021 Office Visit Cardiology Wilmar Lay PA-C [address] [place] [address] [phone] Scheduled Orders Name Type Priority Associated Diagnoses Orde r Schedule PACER/ICD REMOTE DATA CAPTURE/TECH REVIEW,90D Procedures Routine Ischemic cardiomyopathy AICD (automatic cardioverter/defibrillat or) present ICD (implantable cardioverter-defibrillat or) battery depletion Ordered: 05/12/2021 Health Maintenance Due Date Last Done Comments Pneumococcal Vaccine: 65+ Years (1 of 2 - PPSV23) 1941 COVID-19 Vaccine (1) 1947 Zoster Vaccines (1 of 2) 1984 *DEPRESSION SCREENING,ANNUAL FOR PTS 12 AND OVER 12/02/2014 *DIG LEVEL FOR MEDICATION MONITORING EVERY 6 MONTHS 03/17/2021 Influenza Vaccine (FLU shot) (#1) 2021 07/29/2017, [...] Procedure Name Priority Date/Time Associated Diagnosis Comments DEFIBRILLATOR REMOTE INTERROGATION EVAL/INTERP,TO 90D Routine 05/11/2021 Ischemic cardiomyopathy AICD (automatic cardioverter/defibril lator) present ICD (implantable cardioverter-defibril lator) battery depletion documented in this encounter Results * DEFIBRILLATOR REMOTE INTERROGATION EVAL/INTERP,TO 90D (05/11/2021) Specimen Narrative Performed At documented in this encounter Visit Diagnoses Diagnosis Ischemic cardiomyopathy- Primary Other specified forms of chronic ischemic heart disease AICD (automatic cardioverter/defibrillator) present Automatic implantable cardiac defibrillator in situ ICD (implantable cardioverter-defibrillator) battery depletion documented in this encounter Advance Directives Documents on File Type Date Recorded Patient Assistant Store Leader Expl 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 Advanced Directive Advanced Directive Advanced Directive Advanced Directive
--- OUTSIDE RECORDS SUMMARY | 2023-09-08 00:46 | External Medical Summary | Summary of Care ---
Author Name Unknown Organization [place] [address] Care Team Providers Care Merchandise For Resale Purchasing Agent Name Role Phone Hank Oshea MD Primary Care Provider [phone] Reason for Visit * Reason Comments eRx-Medication Refill Encounter Details Date Type Department Care Team Description 05/12/2021 Refill Cardiology, [facility] [place] [address] Wilmar Lay PA-C [address] [facility] [place] [address] [phone] Coronary artery disease involving quinault coronary artery of quinault heart without angina pectoris; Chronic atrial fibrillation (HCC) Allergies No Known Active Allergiesdocumented as of this encounter (statuses as of 05/12/2021) Medications Medication Sig Dispensed Refills Start Date End Date Status VITAMIN D 2000 UNITS PO TABS one tablet daily 0 Active nitroglycerin (NITROSTAT) 0.4 MG SUBLIndications:Salo nary artery disease involving quina[place] coronary artery of [...] (pLAVix)Indications: Permanent atrial fibrillation (HCC) Take 1 Tab by mouth daily. 90 Tab 3 12/16/2020 Active Furosemide 20 MG Oral Tablet (Lasix)Indications:H eart failure, systolic, due to CAD (HCC) Take 1 tablet by mouth once daily 90 Tab 4 03/24/2021 Active Metoprolol Succinate ER 50 MG Oral Tablet Extended Release 24 Hour (toPROL XL)Indications:Atria l fibrillation, unspecified type (HCC) Take 1 tablet by mouth twice daily 182 Tab 3 03/21/2021 Active Rosuvastatin Calcium 5 MG Oral Tablet (Crestor)Indications :Heart failure, systolic, due to CAD (HCC),Ischemic cardiomyopathy,AICD (automatic cardioverter/defibri llator) present,CAD (coronary artery disease) TAKE 1 TABLET BY MOUTH EVERY OTHER DAY 45 Tab 4 03/24/2021 Active Entresto 24-26 MG Oral Tablet (sacubitril-valsarta n 24-26 mg per tab)Indications:Hear t failure, systolic, due to CAD (HCC),Ischemic cardiomyopathy Take 1/2 tab each am and pm 90 Tab 3 04/04/2021 Active Digoxin 125 MCG Oral Tablet (Lanoxin)Indications :Coronary artery disease involving quina[place] coronary artery of quinault heart without angina pectoris,Chronic atrial fibrillation (HCC) TAKE 1 TABLET BY MOUTH ON WEDNESDAY, WEDNESDAY AND WEDNESDAY. 28 Tab 11 05/12/2021 Active digoxin (LANOXIN) 125 mcg TabletIndications:Co ronary artery disease involving quina[place] coronary artery of quina[place] heart without angina pectoris,Chronic atrial fibrillation (HCC) TAKE ONE TABLET BY MOUTH ON ., ., AND WED. 45 Tab 3 03/14/2020 Discontinued documented as of this encounter (statuses as of 05/12/2021) Active Problems Problem Noted Date AICD (automatic cardioverter/defibrillat or) present 02/10/2013 Heart failure, systolic, due to CAD 06/2013 Ischemic cardiomyopathy 01/06/2013 Atrial fibrillation 01/06/2013 CAD (coronary artery disease) 07/25/2012 HI (myocardial infarction) 07/25/2012 documented as of this [...] Telephone Encounter - Wesly Mancia MD - 05/12/2021 9:57 AM EDT Signed Prescriptions: Disp Refills Digoxin 125 MCG Oral Tablet (Lanoxin) 28 Tab 11 Sig: TAKE 1 TABLET BY MOUTH ON WEDNESDAY, WEDNESDAY AND WEDNESDAY. Authorizing Provider: WESLY MANCIA * Telephone Encounter - Yina Elizondo RN - 05/12/2021 9:40 AM EDT Pending Prescriptions: Disp Refills Digoxin 125 MCG Oral Tablet (Lanoxin) [Ph*28 Tab 11 Sig: TAKE 1 TABLET BY MOUTH ON WEDNESDAY, WEDNESDAY AND WEDNESDAY. * Telephone Encounter - Yina Elizondo RN - 05/12/2021 9:39 AM EDT Pending Prescriptions: Disp Refills Digoxin 125 MCG Oral Tablet (Lanoxin) [Ph*28 Tab 0 Sig: TAKE 1 TABLET BY MOUTH ON WEDNESDAY, WEDNESDAY AND WEDNESDAY. Last Office/Telemedicine Visit: 04/04/2021 Next Office Visit: 06/16/2021 Scheduled Provider(s): Isi Yu If no future appointments scheduled, and last appointment is greater than a year ago, please schedule patient for a follow-up appointment Last date the medication was ordered: Pharmacy: [facility] [id number] Is this request for a controlled substance?No Urine Drug Screen:No results found for this or any previous visit. Patient Phone Numbers Labs: Lab Results Component Value Date/Time CREAT 1.3 (H) 02/07/2021 11:36 AM CREAT 1.4 (H) 07/23/2020 11:28 AM POTASSIUM 5.0 02/07/2021 11:36 AM POTASSIUM 4.4 07/23/2020 11:28 AM TSH 2.94 03/21/2021 11:34 AM TSH 4.50 (H) 07/23/2020 11:28 AM LDLCALC 67 02/07/2021 11:35 AM LDLCALC 68 01/11/2018 11:41 AM LDLDIRECT 72 05/24/2019 01:32 PM ALT 21 02/07/2021 11:36 AM ALT 20 07/23/2020 11:28 AM HGBA1C 5.4 06/30/2016 10:59 AM documented in this encounter Plan of Treatment Upcoming Encounters Date Type Specialty Care Team Description 05/12/2021 Cardiac Studies Cardiology Isi Yu [address] [facility] [place] [address] [phone] 05/16/2021 Anticoagulation Pharmacy Pharmacist1, [facility] [address] [place] [address] 06/16/2021 Cardiac Studies Cardiology Isi Yu [address] [place] [address] [phone] 07/28/2021 Cardiac Studies Cardiology Isi Yu [address] [facility] [place] [address] [phone] 10/06/2021 Office Visit Cardiology Wilmar Lay PA-C [address] [facility] [place] [address] [phone] Health Maintenance Due Date Last Done Comments [...] Visit Diagnoses Diagnosis Coronary artery disease involving [place] coronary artery of quina[place] heart without angina pectoris Chronic atrial fibrillation (HCC) Atrial fibrillation documented in this encounter Advance Directives Documents on File Type Date Recorded Patient Animal Control Licensing Worker Expl 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 Advanced Directive Advanced Directive Advanced Directive Advanced Directive
--- OUTSIDE RECORDS SUMMARY | 2023-09-08 00:46 | External Medical Summary | Summary of Care ---
Author Name Unknown Organization [place] [address] Care Team Providers Care Glass Glazier Name Role Phone Hank Oshea MD Primary Care Provider [phone] Reason for Visit * Reason Comments Dosage Adjustment In Person (Anticoag Cl inic) Encounter Details Date Type Department Care Team Description 05/16/2021 Anticoagulation Pharmacy, [facility] [address] [facility] [place] [address] Pharmacist1, [facility] [address] [facility] [place], [place] [id number] Atrial fibrillation, unspecified type (HCC)*; Anticoagulation management encounter; assisted 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 therapy Allergies No Known Active Allergiesdocumented as of this encounter (statuses as of 05/16/2021) Medications Medication Sig Dispensed Refills Start Date End Date Status VITAMIN D 2000 UNITS PO TABS one tablet daily 0 Active nitroglycerin (NITROSTAT) 0.4 MG SUBLIndications:Coronar y artery disease involving [place] coronary artery of [place] heart without angina pectoris,Myocardial infarction involving other [...] Oral Tablet (Lanoxin)Indications:Co ronary artery disease involving [place] coronary artery of ely sh[place]one heart without angina pectoris,Chronic atrial fibrillation (HCC) TAKE 1 TABLET BY MOUTH ON WEDNESDAY, WEDNESDAY AND WEDNESDAY. 28 Tab 11 05/12/2021 Active documented as of this encounter (statuses as of 05/16/2021) Active Problems Problem Noted Date AICD (automatic cardioverter/defibrillat or) present 02/10/2013 Heart failure, systolic, due to CAD 06/2013 Ischemic cardiomyopathy 01/06/2013 Atrial fibrillation 01/06/2013 CAD (coronary artery disease) 07/25/2012 DC (myocardial infarction) 07/25/2012 documented as of this encounter (statuses as of 05/16/2021) Immunizations Name Administration Dates Next Due DTaP [...] of this encounter Progress Notes * Luiza Nguyen RPh - 05/16/2021 11:17 AM EDT Medication Therapy Disease Management - Anticoagulation Patient: Lucian Larson JrDylan : 1935 Current Warfarin Dose As of 05/16/2021 Warfarin maintenance plan: 2.5 mg (5 mg x 0.5) every Fri; 5 mg (5 mg x 1) all other days Patient-Reported Symptoms: Patient Findings Negatives: Signs/symptoms of thrombosis, Signs/symptoms of bleeding, Change in health, Change in alcohol use, Change in activity, Upcoming invasive procedure, Missed doses, Extra doses, Change in medications, Change in diet/appetite, Bruising INR Result As of 05/16/2021 INR goal: 2.0-3.0 INR used for dosin.6 (05/16/2021) Warfarin Plan As of 05/16/2021 Full warfarin instructions: 2.5 mg every Fri; 5 mg all other days No change documented: Luiza Masters RPh Next INR check: 06/17/2021 Additional Dosing Information: Repeat PT/INR in 4 week(s) Weekly dose: not changed Luiza Paz татьяна Clinical Pharmacist 05/16/2021, 11:17 AM documented in this encounter Plan of Treatment Upcoming Encounters Date Type Specialty Care Team Description 06/16/2021 Cardiac Studies Cardiology Isi Yu [address] [place] [address] [phone] 06/17/2021 Anticoagulation Pharmacy Pharmacist, [facility] [address] [facility] [place] [address] 07/28/2021 Cardiac Studies Cardiology G[facility] Morrell [address] [place] [address] [phone] 10/06/2021 Office Visit Cardiology Wilmar Lay PA-C [address] [place] [address] [phone] Health Maintenance Due Date Last Done Comments [...] Comments INR FINGERSTICK, POINT OF CARE STAT 05/16/2021 11:20 AM EDT Anticoagulation management encounter rn long term care 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 therapy documented in this encounter Results * INR FINGERSTICK, POINT OF CARE (05/16/2021 11:20 AM EDT) Fingerstick INR 2.6 INR [facility]-02 Specimen Blood Narrative Performed At Therapeutic ranges for non-operative patients: Prophylaxsis/treatment of DVT: (Range:2.0-3.0) Treatment of pulmonary embolism:(Range:2.0-3.0) Prevention of systemic embolism from: -tissue heart valves -acute myocardial infarction -valvular heart disease -atrial fibrillation (Range: 2.0-3.0) Mechanical prosthetic valves: (Range: 2.5-3.5) [facility] [place] [address] [facility] [address] [place] [address] documented in this encounter Visit Diagnoses Diagnosis Atrial fibrillation, unspecified type (HCC)- Primary Anticoagulation management encounter Encounter for therapeutic drug monitoring rn long term care 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 therapy documented in this encounter Advance Directives Documents on File Type Date Recorded Patient Bit Bender Expl anation Advanced Directive Advanced Directive 01/26/2013 [...]
--- OUTSIDE RECORDS SUMMARY | 2023-09-08 00:46 | External Medical Summary | Summary of Care ---
Author Name Unknown Organization [place] [address] Care Team Providers Care Medical Terminologist Name Role Phone Hank Oshea MD Primary Care Provider [phone] Reason for Visit * Reason Comments Defibrillator Clinic Encounter Details Date Type Department Care Team Description 07/28/2021 Cardiac Studies Cardiology, [facility] [address] [facility] [place] [address] [place] [address] [facility] [place] [address] [phone] Ischemic cardiomyopathy*; Chronic atrial fibrillation (HCC); AICD (automatic cardioverter/defibril lator) present Allergies No Known Active Allergiesdocumented as of this encounter (statuses as of 07/28/2021) Medications Medication Sig Dispensed Refills Start Date End Date Status VITAMIN D 2000 UNITS PO TABS one tablet daily 0 Active nitroglycerin (NITROSTAT) 0.4 MG SUBLIndications:Coronar y artery disease involving [place] coronary artery of [place] heart without angina pectoris,Myocardial infarction involving other [...] Oral Tablet (Lanoxin)Indications:Co ronary artery disease involving [place] coronary artery of que[place] heart without angina pectoris,Chronic atrial fibrillation (HCC) TAKE 1 TABLET BY MOUTH ON WEDNESDAY, WEDNESDAY AND WEDNESDAY. 28 Tab 11 05/12/2021 Active documented as of this encounter (statuses as of 07/28/2021) Active Problems Problem Noted Date AICD (automatic cardioverter/defibrillat or) present 02/10/2013 Heart failure, systolic, due to CAD 06/2013 Ischemic cardiomyopathy 01/06/2013 Atrial fibrillation 01/06/2013 CAD (coronary artery disease) 07/25/2012 [place] (myocardial infarction) 07/25/2012 documented as of this encounter (statuses as of 07/28/2021) Immunizations Name Administration Dates Next Due DTaP [...] Progress Notes * Addi Vaughn TECH - 07/28/2021 11:15 AM EDT HEART RHYTHM DEVICE CLINIC - SINGLE CHAMBER DEFIBRILLATOR -- 07/28/2021 TYPE OF VISIT:Evaluation of battery status / abnormal magnet rate Routine single chamber defibrillator follow. INDICATION: I25.5 Ischemic cardiomyopathy (primary encounter diagnosis) I48.20 Chronic atrial fibrillation (HCC) Z95.810 AICD (automatic cardioverter/defibrillator) present IMPLANTING PHYSICIAN: Dr. Gonzalez IMPLANT/DEVICE HISTORY: February 02, 2013 CURRENT SYSTEM: ICD: Medtronic, model - Eric II VR [id number] SN: [id number] RV Lead: Medtronic, Model - [id number] SN: [id number]: 02-02-2013 Abandoned leads: none ALERTS/ADVISORIES:none PATIENT EVALUATION: Symptoms:No dizziness, palpitations, syncope, or presyncope. Pocket evaluation:Left pectoral device pocket is healthy without erythema, swelling, pain, or drainage. Patient denies any problems upon questioning. Intrinsic rhythm:Atrial fibrillation. DEVICE EVALUATION: R V Pacing threshold:0.5volts at 0.4msec Sensin.3 mV Pacing impedance:532ohms Percentage paced:27.8% HVLI: 66ohms Thoracic impedance monitoring:N/A Battery:2.63volts PANCHO:2.63volts Charge time:11.9seconds Short V-V intervals:0 PVC singles counter : 125.7 per hour over a 13 month period. (This is an increase.) Oral anticoagulant therapy:Coumadin, Plavix Rate/Rhythm medication: Digoxin, Metoprolol VT/VF episodes (since last evaluation): 1 VT nonsustained episodes of which the longest is <1 seconds with a ventricular rate of 194 bpm Past VT/VF episodes: First shock: Most recent [...] chamber defibrillator function. Adequate battery reserve PLAN: Patient's device doesn't give an estimated longevity. Patient given a new auto remote monitoring transmission schedule for every 4 weeks until next Heart Rhythm Device Clinic. Return to Heart Rhythm Device Clinic in 16 weeks if the device doesn't reach SECURITY OPERATIONS SPECIALIST by then. Alert tone demonstrated so the pateint knows wheat it will sound like when his device reaches SECURITY OPERATIONS SPECIALIST. Patient is requesting Dr. Davidson for [facility] generator [facility]. [facility]: Dr. Langston This patient was seen in [...] Encounters Date Type Specialty Care Team Description 08/27/2021 Cardiac Studies Cardiology N[facility]i [facility] [address] [facility] [place] [address] [phone] 08/29/2021 Anticoagulation Pharmacy Pharmacist1, [facility] [address] 09/29/2021 Cardiac Studies Cardiology [facility]i [facility] [address] [place] [address] [phone] 10/06/2021 Office Visit Cardiology Wilmar Lay PA-C [address] [facility] [place] [address] [phone] 11/03/2021 Cardiac Studies Cardiology [facility] [address] [facility] [place] [address] [phone] 12/04/2021 [facility] [address] [facility] [place] [address] [phone] Scheduled Orders Name Type Priority Associated Diagnoses Orde r Schedule SINGLE-LEAD DEFIBRILLATOR + REPROGRAM Procedures Routine Ischemic cardiomyopathy Chronic atrial fibrillation (HCC) AICD (automatic cardioverter/defibrilla tor) present Ordered: 07/28/2021 Health Maintenance Due Date Last Done Comments [...] Documents on File Type Date Recorded Patient Bag Filler Expl anation Advanced Directive Advanced Directive 01/26/2013 [...]
--- OUTSIDE RECORDS SUMMARY | 2023-09-08 00:46 | External Medical Summary | Summary of Care ---
Author Name Unknown Organization [place] [address] Care Team Providers Care Air Defense Artillery Senior Sergeant Name Role Phone Hank Oshea MD Primary Care Provider [phone] Reason for Visit * Reason Onset Date Comments Fax 05/12/2021 TSH result/Dr Gabo carcamo Encounter Details Date Type Department Care Team Description 05/12/2021 Telephone Access Center, [place] [facility] [address] [facility] [address] *DO NOT REMOVE THIS DEPARTMENT* [place] [address] Name, No Fax (TSH result/Dr Oshea) Allergies No Known Active Allergiesdocumented as of this encounter (statuses as of 05/12/2021) Medications Medication Sig Dispensed Refills Start Date End Date Status VITAMIN D 2000 UNITS PO TABS one tablet daily 0 Active nitroglycerin (NITROSTAT) 0.4 MG SUBLIndications:Coronar y artery disease involving [place] coronary artery [...] Oral Tablet (Lanoxin)Indications:Co ronary artery disease involving [place] coronary artery [...] encounter Miscellaneous Notes * Telephone Encounter - Christine Cochran OSA - 05/12/2021 1:03 PM EDT Caller requesting the following information to be faxed: Name/Company of caller: [employer]/ Information requested to be faxed: 03/21/21 lab results, was supposed to go to PCP and it didnt Fax number: [phone] Attention to Name/Company: Dr Hank Oshea Any additional information?: I faxed it and got confirmation of receipt. documented in this encounter Plan of Treatment Upcoming Encounters Date Type Specialty Care Team Description 05/12/2021 Cardiac Studies Cardiology G[facility] [address] [facility] [place] [address] [phone] Ischemic cardiomyopathy*; AICD (automatic cardioverter/defibrillato r) present; ICD (implantable cardioverter-defibrillato r) battery depletion 05/16/2021 Anticoagulation Pharmacy Pharmacist1, [facility] [address] [facility] [address] 06/16/2021 Cardiac Studies Cardiology [facility] [address] [place] [address] [phone] 07/28/2021 Cardiac Studies Cardiology G[facility] Antonella Morrell [address] [place] [address] [phone] 10/06/2021 Office Visit Cardiology Wilmar Lay PA-C [address] [place] [address] [phone] Health Maintenance Due Date Last Done Comments [...] Documents on File Type Date Recorded Patient Speech Instructor Expl 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 Advanced Directive Advanced Directive Advanced Directive Advanced Directive
--- OUTSIDE RECORDS SUMMARY | 2023-09-08 00:46 | External Medical Summary | Summary of Care ---
Author Name Unknown Organization [place] [address] Care Team Providers Care Postdoctoral Research Associate Name Role Phone Hank Oshea MD Primary Care Provider [phone] Reason for Visit * Reason Comments Follow Up Encounter Details Date Type Department Care Team Description 04/04/2021 Office Visit Cardiology, [facility] [address] [place] [address] Denis Langston MD [address] [facility] [place] [address] [phone] Ischemic cardiomyopathy*; Heart failure, systolic, due to CAD (HCC); ICD (implantable cardioverter-defibrill ator), single, in situ Allergies No Known Active Allergiesdocumented as of this encounter (statuses as of 04/04/2021) Medications Medication Sig Dispensed Refills Start Date End Date Status VITAMIN D 2000 UNITS PO TABS one tablet daily 0 Active nitroglycerin (NITROSTAT) 0.4 MG SUBLIndications:Coron richardson artery disease involving [place] coronary artery [...] mcg by mouth daily. 3 07/30/2019 Active warfarin sodium (COUMADIN) 5 MG TabletIndications:Atr ial fibrillation (HCC) TAKE 10MG (2 TABLETS) BY MOUTH ON WEDNESDAY AND 5MG (1 TABLET) ALL OTHER DAYS. 110 Tab 3 02/13/2020 Active digoxin (LANOXIN) 125 mcg TabletIndications:Cor onary artery disease involving [place] coronary artery of [place] heart without angina pectoris,Chronic atrial fibrillation (HCC) TAKE ONE TABLET BY MOUTH ON ., ., AND SAT. 45 Tab 3 03/14/2020 Active Clopidogrel Bisulfate 75 MG Oral Tablet (pLAVix)Indications:P ermanent atrial fibrillation (HCC) Take 1 Tab by mouth daily. 90 Tab 3 12/16/2020 Active Furosemide 20 MG Oral Tablet (Lasix)Indications:He art failure, systolic, due to CAD (HCC) [...] to CAD (HCC),Ischemic cardiomyopathy,AICD (automatic cardioverter/defibril lator) present,CAD (coronary artery disease) TAKE 1 TABLET BY MOUTH EVERY OTHER DAY 45 Tab 4 03/24/2021 Active Entresto 24-26 MG Oral Tablet (sacubitril-valsartan 24-26 mg per tab)Indications:Heart failure, systolic, due to CAD (HCC),Ischemic cardiomyopathy Take 1/2 tab each am and pm 90 Tab 3 04/04/2021 Active sacubitril-valsartan 24-26 mg per tab (ENTRESTO) 24-26 MG TABSIndications:Heart failure, systolic, due to CAD (HCC),Ischemic cardiomyopathy Take 1 Tab by mouth 2 times a day. 180 Tab 3 02/05/2020 04/04/2021 Discontinued (Refill) documented as of this encounter (statuses as of 04/04/2021) Active Problems Problem Noted Date AICD (automatic cardioverter/defibrillat or) present 02/10/2013 Heart failure, systolic, due to CAD 06/2013 Ischemic cardiomyopathy 01/06/2013 Atrial fibrillation 01/06/2013 CAD (coronary artery disease) 07/25/2012 [place] (myocardial infarction) 07/25/2012 documented as of this encounter (statuses as of 04/04/2021) Immunizations Name Administration Dates Next Due DTaP [...] Sign Reading Time Taken Comments Blood Pressure 122/84 04/04/2021 2:47 PM EDT Pulse 68 04/04/2021 2:47 PM EDT regul ar Temperature 36.6 C (97.8 F) 04/04/2021 2:47 PM ED T Respiratory Rate 16 04/04/2021 2:47 PM EDT Oxygen Saturation - - Inhaled Oxygen Concentration - - Weight 84.4 kg (186 lb) 04/04/2021 2:47 PM EDT Height - - Body Mass Index 26.69 03/21/2018 12:57 PM EDT documented in this encounter Progress Notes * Denis Langston MD - 04/04/2021 3:02 PM EDT April 04, 2021 Cardiology Follow Up Referring Provider: PCP: HANK OSHEA [address] [place] [address] [phone] Chief Complaint: Follow-up ischemic cardiomyopathy SUBJECTIVE: Lucian Larson Jr. is a 85 year old year old male with ongoing cardiac issues 1. 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 2. Ischemic cardiomyopathy secondary to #1. 3. Single lead prophylactic pacer/ cardiac defibrillator in January 2013. [employer] D 284 VRC 4. Acute decompensation in the setting of elevated heart rate, receiving stenting to the recannulated left anterior descending and attempted stent into the proximal right coronary artery in May 2014. 5. Chronic atrial fibrillation. 6. Hyperlipidemia, on therapy. Patient presents today doing well. Denies any signs or symptoms of congestive heart failure. Weighthas been stable. No worsening edema. No chest pains, dizziness, lightheadedness syncope or near syncope. Has been taking medications as prescribed without difficulty. No fevers or chills. Has slowed somewhat with ambulation and activities but otherwise no complaints. Patient Active Problem List Diagnosis Code CAD (coronary artery disease) I25.10 [place] (myocardial infarction) ([facility]) I21.9 Heart failure, systolic, due to CAD ([facility]) I50.20, I25.10 Ischemic cardiomyopathy I25.5 Atrial fibrillation ([facility]) I48.91 AICD (automatic cardioverter/defibrillator) present Z95.810 Review of patient's allergies indicates: No Known Allergies Current Outpatient Medications Medication Sig Dispense Refill Furosemide 20 MG Oral Tablet (Lasix) Take 1 tablet by mouth once daily 90 Tab 4 Rosuvastatin Calcium 5 MG Oral Tablet (Crestor) TAKE 1 TABLET BY MOUTH EVERY OTHER DAY 45 Tab 4 Metoprolol Succinate ER 50 MG Oral Tablet Extended Release 24 Hour (toPROL XL) Take 1 tablet bymouth twice daily 182 Tab 3 Clopidogrel Bisulfate 75 MG Oral Tablet (pLAVix) Take 1 Tab by mouth daily. 90 Tab 3 digoxin (LANOXIN) 125 mcg Tablet TAKE ONE TABLET BY MOUTH ON ., ., AND SAT. 45 Tab 3 warfarin sodium (COUMADIN) 5 MG Tablet TAKE 10MG (2 TABLETS) BY MOUTH ON WEDNESDAY AND 5MG (1 TABLET) ALL OTHER DAYS. 110 Tab 3 sacubitril-valsartan 24-26 mg per tab (ENTRESTO) 24-26 MG TABS Take 1 Tab by mouth 2 times a day. (Patient taking differently: Take 1 Tab by mouth 2 times a day. Take 1/2 tab each am and pm) 180 Tab 3 Cetirizine HCl (ZYRTEC ALLERGY) 10 MG Capsule Take 10 mg by mouth daily. levothyroxine (LEVOXYL) 50 MCG Tablet Take 75 mcg by mouth daily. 3 Coenzyme Q10 (COQ10) 200 MG CAPS Take 1 Cap by mouth daily. VITAMIN D 2000 UNITS PO TABS one tablet daily nitroglycerin (NITROSTAT) 0.[address] 1 Tab under the tongue as needed for Pain, Chest. 25 Tab 11 OBJECTIVE/PHYSICAL EXAMINATION: BP 122/84 (BP Site: Left Arm, BP Position: Sitting, BP Cuff Size: Regular) | Pulse 68 Comment: regular | Temp 36.6 C (97.8 F) (Tympanic) | Resp 16 | Wt 84.4 kg (186 lb) | BMI 26.69 kg/m | BSA 2.04 m General: Age-appropriate male in no acute [...] no joint inflammation, no deforming arthritis Extremities: no edema, no cyanosis, pulses intact 2+/4 Neuro: grossly normal exam Data: Pacemaker defibrillator interrogation April 03, 2021 No high rate episodes of significance No device discharge Battery voltage 2.64 volts/PANCHO 2.63 volts Lipid Panel Results: February 07, 2021: LDL 67, HDL 52 ASSESSMENT: 85 year old year old male with chronic stable ischemic heart disease and Ischemic cardiomyopathy with stable compensated chronic congestive heart failure on optimal medicalregimen including Entresto, metoprolol succinate, rosuvastatin and clopidogrel. Patient appropriately anticoagulated with warfarin for atrial fibrillation No change in cardiac status PLAN: Continue all current therapies Prophylactic defibrillator approaching PANCHO. Discussed management in detail with patient and . DISPOSITION: Return 6 months time or symptoms dictate otherwise Denis Langston MD Cardiology, [address] [address] documented in this encounter Nursing Notes * Rafiq Miramontes RN - 04/04/2021 2:46 PM EDT Examination Room: room 14 Name: Lucian Larson Jr. Date of : (1935). Reason for Visit: for follow up Interim Hospitalization(s): denies Problems/Concerns: denies Chest Pain/SOB: denies My [facility] is a [...] Encounters Date Type Specialty Care Team Description 05/02/2021 Anticoagulation Pharmacy Pharmacist1, [facility] [address] [facility] [address] 05/12/2021 Cardiac Studies Cardiology [facility] [address] [facility] [facility] [place] [address] [phone] 06/16/2021 [facility] [address] [facility] [place] [address] [phone] 07/28/2021 Cardiac Studies [facility] [address] [facility] [facility] [place] [address] [phone] 10/06/2021 Office Visit Cardiology Wilmar Lay PA-C [address] [place] [address] [phone] Health Maintenance Due Date Last Done Comments Pneumococcal Vaccine: 65+ Years (1 of 2 - PPSV23) 1941 COVID-19 Vaccine (1) 1946 Zoster Vaccines (1 of 2) 1984 *DEPRESSION SCREENING,ANNUAL FOR PTS 12 AND OVER 12/02/2014 *DIG LEVEL FOR MEDICATION MONITORING EVERY 6 MONTHS 03/17/2021 Influenza Vaccine (FLU shot) (Season Ended) 2021 07/29/2017, 08/08/2012 DIABETES SCREEN EVERY 3 [...] failure ICD (implantable cardioverter-defibrillator), single, in situ documented in this encounter Advance Directives Documents on File Type Date Recorded Patient Polyethylene Combiner Expl 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 Advanced Directive Advanced Directive Advanced Directive"
--- OUTSIDE RECORDS SUMMARY | 2023-09-08 00:46 | External Medical Summary ---
Author Name Unknown Address Unknown Organization K09:[facility] [place] [place] [address] Laboratory Report Ordering Provider Test Date Status SHANIA MEYER 07/18/2021 11:48:27 Final Observation Date Value Abnormality Reference (Units ) Status INR in Capillary blood by Coagulation assay 07/18/2021 11:48:27 2.6 (INR) Final Performing Location [facility] [place] [address]
--- OUTSIDE RECORDS SUMMARY | 2023-09-08 00:46 | External Medical Summary | Summary of Care ---
Author Name Unknown Organization [place] [address] Care Team Providers Care Needle Grinder Name Role Phone Hank Oshea MD Primary Care Provider Reason for Visit * Reason Comments Dosage Adjustment In Person (Anticoag Cl inic) Encounter Details Date Type Department Care Team Description 07/18/2021 Anticoagulation Pharmacy, [facility] [address] [facility] [place] [address] Pharmacist1, [facility] [address] [facility] [place] [id number] Atrial fibrillation, unspecified type (HCC)*; Myocardial infarction, unspecified [place] type, unspecified artery (HCC); Anticoagulation management encounter; 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 28 Tab 11 05/12/2021 Active documented as of this encounter (statuses as of 07/18/2021) Active Problems Problem Noted Date AICD (automatic cardioverter/defibrillat or) present 02/10/2013 Heart failure, systolic, due to CAD 06/2013 Ischemic cardiomyopathy 01/06/2013 Atrial fibrillation 01/06/2013 CAD (coronary artery disease) 07/25/2012 [place] (myocardial infarction) 07/25/2012 documented as of this encounter (statuses as of 07/18/2021) Immunizations Name Administration Dates Next Due DTaP [...] Progress Notes * Luiza Nguyen RPh - 07/18/2021 11:32 AM EDT Medication Therapy Disease Management - Anticoagulation Patient: Lucian Larson JrDylan : 1935 Current Warfarin Dose As of 07/18/2021 Warfarin maintenance plan: 5 mg (5 mg x 1) every day Patient-Reported Symptoms: Patient Findings Negatives: Signs/symptoms of thrombosis, Signs/symptoms of bleeding, Change in health, Change in alcohol use, Change in activity, Upcoming invasive procedure, Missed doses, Extra doses, Change in medications, Change in diet/appetite, Bruising INR Result As of 07/18/2021 INR goal: 2.0-3.0 INR used for dosin.6 (07/18/2021) Warfarin Plan As of 07/18/2021 Full warfarin instructions: 5 mg every day No change documented: Luiza Masters RPh Next INR check: 08/29/2021 Additional Dosing Information: Repeat PT/INR in 6 week(s) Weekly dose: not changed Luiza Paz RPh Clinical Pharmacist 07/18/2021, 11:32 AM documented in this encounter Plan of Treatment Upcoming Encounters Date Type Specialty Care Team Description 07/28/2021 Cardiac Studies Cardiology [facility] 132 [facility] [place] [address] [phone] 08/29/2021 Anticoagulation Pharmacy Pharmacist, [facility] [address] [facility] [place] [address] 10/06/2021 Office Visit Cardiology Wilmar Lay PA-C 132 [facility] [place] [address] [phone] Scheduled Orders Name Type Priority Associated Diagnoses Orde r Schedule PT INR Lab Routine Atrial fibrillation, unspecified type (HCC) Myocardial infarction, unspecified [place] type, unspecified artery (HCC) Anticoagulation management encounter alf 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 therapy 26 Occurrences starting 07/18/2021 until 07/18/2022 INR FINGERSTICK, POINT OF CARE Point of Care Testing - Unsolicited Results STAT Atrial fibrillation, unspecified type (HCC) Myocardial infarction, unspecified [place] type, unspecified artery (HCC) Anticoagulation management encounter alf 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 therapy Every 2 Weeks for 26 Occurrences starting 07/18/2021 until 07/18/2022, 1 completed Health Maintenance Due Date Last [...] Comments INR FINGERSTICK, POINT OF CARE STAT 07/18/2021 11:48 AM EDT Atrial fibrillation, unspecified type (HCC) Myocardial infarction, unspecified [place] type, unspecified artery (HCC) Anticoagulation management encounter alf 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 therapy documented in this encounter Results * INR FINGERSTICK, POINT OF CARE (07/18/2021 11:48 AM EDT) Fingerstick INR 2.6 INR [facility] Specimen Blood Narrative Performed At Therapeutic ranges for non-operative patients: Prophylaxsis/treatment of DVT: (Range:2.0-3.0) Treatment of pulmonary embolism:(Range:2.0-3.0) Prevention of systemic embolism from: -tissue heart valves -acute myocardial infarction -valvular heart disease -atrial fibrillation (Range: 2.0-3.0) Mechanical prosthetic valves: (Range: 2.5-3.5) [facility] [place] 56- Performing Organization Address City/State/[facility] Co de Phone Number [facility] [address]- [address] [place] [address] documented in this encounter Visit Diagnoses Diagnosis Atrial fibrillation, unspecified type (HCC)- Primary Myocardial infarction, unspecified [place] type, unspecified artery (HCC) Anticoagulation management encounter Encounter for therapeutic drug monitoring 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
--- OUTSIDE RECORDS SUMMARY | 2023-09-08 00:46 | External Medical Summary | Summary of Care ---
Author Name Unknown Organization [place] [address] Care Team Providers Care Physician Office Secretary Name Role Phone Hank Oshea MD Primary Care Provider Reason for Visit * Reason Comments Dosage Adjustment In Person (Anticoag Cl inic) Encounter Details Date Type Department Care Team Description 06/17/2021 Anticoagulation Pharmacy, [facility] 200 [facility] [place] [address] Pharmacist1, [facility] 200 [facility] [place] [phone] Myocardial infarction, unspecified [place] type, unspecified artery (HCC)*; Atrial fibrillation, unspecified type (HCC); Anticoagulation management encounter; 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 Allergies No Known Active Allergiesdocumented as of this encounter (statuses as of 06/17/2021) Medications Medication Sig Dispensed Refills Start Date End Date Status VITAMIN D 2000 UNITS PO TABS one tablet daily 0 Active nitroglycerin (NITROSTAT) 0.4 MG SUBLIndications:Coronar y artery disease involving [place] coronary artery of [place] heart without angina pectoris,Myocardial infarction involving other [...] Oral Tablet (Lanoxin)Indications:Co ronary artery disease involving [place] coronary artery of [place] heart without angina pectoris,Chronic atrial fibrillation (HCC) TAKE 1 TABLET BY MOUTH ON WEDNESDAY, WEDNESDAY AND WEDNESDAY. 28 Tab 11 05/12/2021 Active documented as of this encounter (statuses as of 06/17/2021) Active Problems Problem Noted Date AICD (automatic cardioverter/defibrillat or) present 02/10/2013 Heart failure, systolic, due to CAD 06/2013 Ischemic cardiomyopathy 01/06/2013 Atrial fibrillation 01/06/2013 CAD (coronary artery disease) 07/25/2012 [place] (myocardial infarction) 07/25/2012 documented as of this encounter (statuses as of 06/17/2021) Immunizations Name Administration Dates Next Due DTaP [...] Progress Notes * Anibal Mcfarland RPh - 06/17/2021 11:20 AM EDT Medication Therapy Disease Management - Anticoagulation Lucian Larson Jr. 1935 Patient Findings Negatives: Signs/symptoms of thrombosis, Signs/symptoms of bleeding, Change in health, Change in alcohol use, Change in activity, Upcoming invasive procedure, Missed doses, Extra doses, Change in medications, Change in diet/appetite, Bruising INR Result As of 06/17/2021 INR goal: 2.0-3.0 INR used for dosin.7 (06/17/2021) Warfarin Plan As of 06/17/2021 Full warfarin instructions: 5 mg every day Next INR check: 07/18/2021 Repeat PT/INR in 4 week(s) Weekly dose: not changed Anibal Caceres RPh, CACP, CDE Clinical Pharmacist Medication Therapy Management Clinic 06/17/2021 11:28 AM documented in this encounter Plan of Treatment Upcoming Encounters Date Type Specialty Care Team Description 07/18/2021 Anticoagulation Pharmacy Pharmacist, [facility] [address] [facility] [place] [address] 07/28/2021 Cardiac Studies Cardiology [facility] [address] [place] [address] [phone] 10/06/2021 Office Visit Cardiology Wilmar Lay PA-C 132 [facility] [place] [address] [phone] Health Maintenance Due Date Last Done Comments [...] Comments INR FINGERSTICK, POINT OF CARE STAT 06/17/2021 11:24 AM EDT Anticoagulation management encounter 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 documented in this encounter Results * INR FINGERSTICK, POINT OF CARE (06/17/2021 11:24 AM EDT) Fingerstick INR 2.7 INR [facility]-02 Specimen Blood Narrative Performed At Therapeutic ranges for non-operative patients: Prophylaxsis/treatment of DVT: (Range:2.0-3.0) Treatment of pulmonary embolism:(Range:2.0-3.0) Prevention of systemic embolism from: -tissue heart valves -acute myocardial infarction -valvular heart disease -atrial fibrillation (Range: 2.0-3.0) Mechanical prosthetic valves: (Range: 2.5-3.5) [facility] [place] [address] [facility] [address] [place] [address] documented in this encounter Visit Diagnoses Diagnosis Myocardial infarction, unspecified [place] type, unspecified artery (HCC)- Primary Atrial fibrillation, unspecified type (HCC) Anticoagulation management encounter Encounter for therapeutic drug monitoring snf 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 therapy documented in this encounter Advance Directives Documents on File Type Date Recorded Patient Rate Inserter Expl anation Advanced Directive Advanced Directive 01/26/2013 [...]
--- OUTSIDE RECORDS SUMMARY | 2023-09-08 00:46 | External Medical Summary | Summary of Care ---
Author Name Unknown Organization [place] [address] Care Team Providers Care Overhead Crane Truck Loader Name Role Phone Hank Oshea MD Primary Care Provider [phone] Reason for Visit * Reason Comments Defibrillator Clinic Encounter Details Date Type Department Care Team Description 04/03/2021 Cardiac Studies Cardiology, [facility] [address] [facility] [place] [address] [place], Pacer Clinic [facility] [address] [facility] [place] [address] [phone] Ischemic cardiomyopathy*; Atrial fibrillation, unspecified type (HCC); AICD (automatic cardioverter/defibril lator) present Allergies No Known Active Allergiesdocumented as of this encounter (statuses as of 04/03/2021) Medications Medication Sig Dispensed Refills Start Date End Date Status VITAMIN D 2000 UNITS PO TABS one tablet daily 0 Active nitroglycerin (NITROSTAT) 0.4 MG SUBLIndications:Rascon ry artery disease involving false pass coronary artery of false pass heart without angina pectoris,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 25 Tab 11 07/21/2016 Active Coenzyme Q10 (COQ10) 200 MG CAPS Take 1 Cap by mouth daily. 0 Active Cetirizine HCl (ZYRTEC ALLERGY) 10 MG Capsule Take 10 mg by mouth daily. 0 Active levothyroxine (LEVOXYL) 50 MCG Tablet Take 1 Tab by mouth daily. 3 07/30/2019 Active sacubitril-valsartan 24-26 mg per tab (ENTRESTO) 24-26 MG TABSIndications:Heart failure, systolic, due to CAD (HCC),Ischemic cardiomyopathy Take 1 Tab by mouth 2 times a day. 180 Tab 3 02/05/2020 Active Additional Information Patient taking differently: 1 Tab Oral BID, Take 1/2 tab each am and pm, Reported on 08/12/2020 warfarin sodium (COUMADIN) 5 MG TabletIndications:Atri al fibrillation (HCC) TAKE 10MG (2 TABLETS) BY MOUTH ON WEDNESDAY AND 5MG (1 TABLET) ALL OTHER DAYS. 110 Tab 3 02/13/2020 Active digoxin (LANOXIN) 125 mcg TabletIndications:Salo nary artery disease involving false pass coronary artery of false pass heart without angina pectoris,Chronic atrial fibrillation (HCC) TAKE ONE TABLET BY MOUTH ON ., ., AND SAT. 45 Tab 3 03/14/2020 Active Clopidogrel Bisulfate 75 MG Oral Tablet (pLAVix)Indications:Pe rmanent atrial fibrillation (HCC) Take 1 Tab by mouth daily. 90 Tab 3 12/16/2020 Active Furosemide 20 MG Oral Tablet (Lasix)Indications:Hea rt failure, systolic, due to CAD (HCC) Take 1 tablet by mouth once daily 90 Tab 4 03/24/2021 Active Metoprolol Succinate ER 50 MG Oral Tablet Extended Release 24 Hour (toPROL XL)Indications:Atrial fibrillation, unspecified type (HCC) Take 1 tablet by mouth twice daily 182 Tab 3 03/21/2021 Active Rosuvastatin Calcium 5 MG Oral Tablet (Crestor)Indications:H eart failure, systolic, due to CAD (HCC),Ischemic cardiomyopathy,AICD (automatic cardioverter/defibrill ator) present,CAD (coronary artery disease) TAKE 1 TABLET BY MOUTH EVERY OTHER DAY 45 Tab 4 03/24/2021 Active documented as of this encounter (statuses as of 04/03/2021) Active Problems Problem Noted Date AICD (automatic cardioverter/defibrillat or) present 02/10/2013 Heart failure, systolic, due to CAD 06/2013 Ischemic cardiomyopathy 01/06/2013 Atrial fibrillation 01/06/2013 CAD (coronary artery disease) 07/25/2012 ND (myocardial infarction) 07/25/2012 documented as of this encounter (statuses as of 04/03/2021) Immunizations Name Administration Dates Next Due DTaP [...] of this encounter Progress Notes * Addi Vaughn, GHULAM - 04/03/2021 12:35 PM EDT REMOTE MONITORING TRANSMISSION - DEFIBRILLATOR -- 04/03/2021 TYPE OF VISIT: This is a scheduled remote monitoring transmission. INDICATION: I25.5 Ischemic cardiomyopathy (primary encounter diagnosis) I48.91 Atrial fibrillation, unspecified type (HCC) Z95.810 AICD (automatic cardioverter/defibrillator) present IMPLANTING PHYSICIAN:Dre Gonzalez M.D. IMPLANT/DEVICE HISTORY:02/02/2013 CURRENT SYSTEM: ICD:MedtronicModel:[id number] SN:[id number] RV lead:MedtronicModel:[id number] SN:[id number] Abandoned leads:None ALERTS/ADVISORIES:None PATIENT EVALUATION: Presenting rhythm :Normal sinus rhythm. DEVICE EVALUATION: R V Auto threshold: Not measured Sensin.0mV Pacing impedance: 494ohms Percentage paced: 0.5 % HVLI:57ohms Battery:2.64volts PANCHO:2.63volts Charge time:11.9seconds Short V-V intervals:0 PVC singles counter :132.2per hour over a 90 day period. (this is a decrease) Thoracic impedance monitoring:N/A VT/VF episodes (since last evaluation):1 VT nonsustained episodes of which the longest is 2 seconds with a ventricular rate of 205 bpm Past VT/VF episodes: First shock:02/02/2013with implant procedure. Most recent shock:same Total ICD shocks/ATP therapy: Appropriate shocks:1 Inappropriate shocks:0 ATP therapy:0 FINAL ICD PARAMETERS: Pacemaker mode/rate:[id number] RV Amplitude:1.5volts Pulse width:0.5msec VT detection:OFF FVT detection:ON Rate - 188- 231bpm(Burst (1), 25joules, 35 joules x 4 ) VF detection:ON Rate - 188bpm ( ATP during charging,25 joules,35 joules x5) Mode switch:Not available IMPRESSION: Normal defibrillator function. Adequate battery reserve PLAN: The patient is scheduled for an DC visit in 3 months. Device is nearing ELECTROSTATIC PAINTER and will send an autoalert if it reaches ELECTROSTATIC PAINTER prior to there patient's next visit. I will schedule two auto remotes to monitor device longevity. Nurse: Addi Vaughn [facility] AUTOMATIC FOLDER SEAMER: Dr. Langston This patient was interrogated remotely [...] Encounters Date Type Specialty Care Team Description 04/04/2021 Office Visit Cardiology Denis Langston MD [address] [facility] [place] [address] [phone] 05/02/2021 Anticoagulation Pharmacy Pharmacist1, [facility] [address] [facility] [place] [address] 05/12/2021 Cardiac Studies Cardiology Isi Yu [facility] [address] [facility] [place] [address] [phone] 06/16/2021 Cardiac Studies Cardiology Isi Yu [facility] Antonella Morrell [address] [facility] [place] [address] [phone] 07/28/2021 Cardiac Studies Cardiology Gigi Pacer [facility] [address] [place] [address] [phone] Scheduled Orders Name Type Priority Associated Diagnoses Orde r Schedule DEFIBRILLATOR REMOTE INTERROGATION EVAL/INTERP,TO 90D Procedures Routine Ischemic cardiomyopathy Atrial fibrillation, unspecified type (HCC) AICD (automatic cardioverter/defibrill ator) present Ordered: 04/03/2021 PACER/ICD REMOTE DATA CAPTURE/TECH REVIEW,90D Procedures Routine Ischemic cardiomyopathy Atrial fibrillation, unspecified type (HCC) AICD (automatic cardioverter/defibrill ator) present Ordered: 04/03/2021 Health Maintenance Due Date Last Done Comments [...] heart disease Atrial fibrillation, unspecified type (HCC) AICD (automatic cardioverter/defibrillator) present Automatic implantable cardiac defibrillator in situ documented in this encounter Advance Directives Documents on File Type Date Recorded Patient Golf Player Assistant Expl 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 Advanced Directive Advanced Directive
--- OUTSIDE RECORDS SUMMARY | 2023-09-08 00:46 | External Medical Summary ---
Author Name Unknown Address Unknown Organization K[facility] [place] [address] Laboratory Report Ordering Provider Test Date Status SHEKHAR COLBERT 05/16/2021 11:20:55 Final Observation Date Value Abnormality Reference (Units ) Status INR in Capillary blood by Coagulation assay 05/16/2021 11:20:55 2.6 (INR) Final Performing Location [facility] [place] [address]
--- OUTSIDE RECORDS SUMMARY | 2023-09-08 00:46 | External Medical Summary | Summary of Care ---
Author Name Unknown Organization [place] [address] Care Team Providers Care Web Content Specialist Name Role Phone Hank Oshea MD Primary Care Provider [phone] Reason for Visit * Reason Comments eRx-Medication Refill Encounter Details Date Type Department Care Team Description 05/12/2021 Refill Cardiology, [facility] [address] [facility] [place] [address] Wesly Langston MD [address] [facility] [place] [address] [phone] Atrial fibrillation (HCC) Allergies No Known Active Allergiesdocumented as of this encounter (statuses as of 05/12/2021) Medications Medication Sig Dispensed Refills Start Date End Date Status VITAMIN D 2000 UNITS PO TABS one tablet daily 0 Active nitroglycerin (NITROSTAT) 0.4 MG SUBLIndications:Coron richardson artery disease involving [place] coronary artery of [place] heart without angina pectoris,Myocardial infarction involving other [...] Oral Tablet (Coumadin)Indications :Atrial fibrillation (HCC) TAKE TWO TABS (10MG) BY MOUTH ON WEDNESDAY AND ONE TAB (5MG) ALL OTHER DAYS 40 Tab 11 05/12/2021 Active warfarin sodium (COUMADIN) 5 MG TabletIndications:Atr ial fibrillation (HCC) TAKE 10MG (2 TABLETS) BY MOUTH ON WEDNESDAY AND 5MG (1 TABLET) ALL OTHER DAYS. 110 Tab 3 02/13/2020 05/12/2021 Discontinued digoxin (LANOXIN) 125 mcg TabletIndications:Cor onary artery disease involving [place] coronary artery of [place] heart without angina pectoris,Chronic atrial fibrillation (HCC) TAKE ONE TABLET BY MOUTH ON ., ., AND SAT. 45 Tab 3 03/14/2020 05/12/2021 Discontinued documented as of this encounter (statuses [...] Miscellaneous Notes * Telephone Encounter - Wesly Langston MD - 05/12/2021 9:57 AM EDT Signed Prescriptions: Disp Refills Warfarin Sodium 5 MG Oral Tablet (Coumadin)40 Tab 11 Sig: TAKE TWO TABS (10MG) BY MOUTH ON WEDNESDAY AND ONE TAB (5MG) ALL OTHER DAYS Authorizing Provider: WESLY LANGSTON * Telephone Encounter - Yina Elizondo RN - 05/12/2021 9:38 AM EDT Pending Prescriptions: Disp Refills Warfarin Sodium 5 MG Oral Tablet (Coumadi*40 Tab 11 Sig: TAKE TWO TABS (10MG) BY MOUTH ON WEDNESDAY AND ONE TAB (5MG) ALL OTHER DAYS * Telephone Encounter - Yina Elizondo RN - 05/12/2021 9:38 AM EDT Pending Prescriptions: Disp Refills Warfarin Sodium 5 MG Oral Tablet (Coumadi*32 Tab 0 Sig: TAKE TWO TABS (10MG) BY MOUTH ON WEDNESDAY AND ONE TAB (5MG) ALL OTHER DAYS Last Office/Telemedicine Visit: 04/04/2021 Next Office Visit: 06/16/2021 Scheduled Provider(s): Isi Yu If no future appointments scheduled, and last appointment is greater than a year ago, please schedule patient for a follow-up appointment Last date the medication was ordered: Pharmacy: [facility] [address] [address] [place] [address] Is this request for a [...] Description 05/12/2021 Cardiac Studies Cardiology Isi Yu [facility] Antonella Morrell [address] [place] [address] [phone] 05/16/2021 Anticoagulation Pharmacy Pharmacist1, [facility] [address] [facility] [place] [address] 06/16/2021 Cardiac Studies Cardiology Isi Yu [facility] Antonella Morrell [address] [place] [address] [phone] 07/28/2021 Cardiac Studies Cardiology Isi Yu [facility] [address] [place] [address] [phone] 10/06/2021 Office Visit Cardiology Wilmar Lay PA-C [address] [place] [address] [phone] Health Maintenance Due Date Last Done Comments [...] of this encounter Visit Diagnoses Diagnosis Atrial fibrillation (HCC) Atrial fibrillation documented in this encounter Advance Directives Documents on File Type Date Recorded Patient Mechanical Maintenance Technician Expl 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 Advanced Directive Advanced Directive Advanced Directive Advanced Directive
--- OUTSIDE RECORDS SUMMARY | 2023-09-08 00:46 | External Medical Summary | Summary of Care ---
Author Name Unknown Organization [place] [address] Care Team Providers Care Senior Wind Turbine Technician Name Role Phone Hank Oshea MD Primary Care Provider [phone] Reason for Visit * Reason Comments Defibrillator Clinic Encounter Details Date Type Department Care Team Description 06/16/2021 Cardiac Studies Cardiology, [facility] [address] [facility] [place] [address] [place], Pacer Clinic [facility] [address] [facility] [place] [address] [phone] Ischemic cardiomyopathy*; Chronic atrial fibrillation (HCC); AICD (automatic cardioverter/defibril lator) present Allergies No Known Active Allergiesdocumented as of this encounter (statuses as of 06/16/2021) Medications Medication Sig Dispensed Refills Start Date End Date Status VITAMIN D 2000 UNITS PO TABS one tablet daily 0 Active nitroglycerin (NITROSTAT) 0.4 MG SUBLIndications:Coronar y artery disease involving [place] coronary artery of [place] heart without angina pectoris,Myocardial infarction involving other [...] Oral Tablet (Lanoxin)Indications:Co ronary artery disease involving [place] coronary artery of [place] heart without angina pectoris,Chronic atrial fibrillation (HCC) TAKE 1 TABLET BY MOUTH ON WEDNESDAY, WEDNESDAY AND WEDNESDAY. 28 Tab 11 05/12/2021 Active documented as of this encounter (statuses as of 06/16/2021) Active Problems Problem Noted Date AICD (automatic cardioverter/defibrillat or) present 02/10/2013 Heart failure, systolic, due to CAD 06/2013 Ischemic cardiomyopathy 01/06/2013 Atrial fibrillation 01/06/2013 CAD (coronary artery disease) 07/25/2012 MS (myocardial infarction) 07/25/2012 documented as of this encounter (statuses as of 06/16/2021) Immunizations Name Administration Dates Next Due DTaP [...] Progress Notes * Addi Vaughn TECH - 06/16/2021 4:15 PM EDT REMOTE MONITORING TRANSMISSION - DEFIBRILLATOR -- 06/16/2021 TYPE OF VISIT: This is a scheduled remote monitoring transmission. INDICATION: I25.5 Ischemic cardiomyopathy (primary encounter diagnosis) I48.20 Chronic atrial fibrillation (HCC) Z95.810 AICD (automatic cardioverter/defibrillator) present IMPLANTING PHYSICIAN:Dre Gonzalez M.D. IMPLANT/DEVICE HISTORY:02/02/2013 CURRENT SYSTEM: ICD:MedtronicModel:[id number] SN:[id number] RV lead:MedtronicModel:[id number] SN:[id number] Abandoned leads:None ALERTS/ADVISORIES:None PATIENT EVALUATION: Presenting rhythm :Normalsinus rhythm. DEVICE EVALUATION: R V Auto threshold: Not measured Sensin.5mV Pacing impedance: 551ohms Percentage paced: 22 % HVLI:60ohms Battery:2.63volts PANCHO:2.63volts Charge time:11.9seconds Short V-V intervals:0 PVC singles counter :121.9per hour over a 39day period. (this is a decrease) Thoracic impedance monitoring:N/A VT/VF episodes (since last evaluation):0 Past VT/VF episodes: First shock:02/02/2013with implant procedure. Most recent shock:same Total ICD shocks/ATP therapy: Appropriate shocks:1 Inappropriate shocks:0 ATP therapy:0 FINAL ICD PARAMETERS: Pacemaker mode/rate:[id number] RV Amplitude:1.5volts Pulse width:0.5msec VT detection:OFF FVT detection:ON Rate - 188- 231bpm(Burst (1), 25joules, 35 joules x 4 ) VF detection:ON Rate - 188bpm ( ATP during charging,25 joules,35 joules x5) Mode switch:Not available IMPRESSION: Normal defibrillator function. Adequate battery reserve PLAN: The patient is scheduled frank [facility] visit in 1 months to monitor device longevity. Nurse: Addi Vaughn [facility] COMPLAINT COORDINATOR:Dr. Langston This patient was interrogated remotely via [...] Encounters Date Type Specialty Care Team Description 06/17/2021 Anticoagulation Pharmacy Pharmacist1, [facility] [address] [facility] [place] [address] 07/28/2021 Cardiac Studies Cardiology [place], Pacer Clinic [facility] [address] [place] [address] [phone] 10/06/2021 Office Visit Cardiology Wilmar Lay PA-C [address] [facility] [place] [address] [phone] Scheduled Orders Name Type Priority Associated Diagnoses Orde r Schedule DEFIBRILLATOR REMOTE INTERROGATION EVAL/INTERP,TO 90D Procedures Routine Ischemic cardiomyopathy Chronic atrial fibrillation (HCC) AICD (automatic cardioverter/defibrilla tor) present Ordered: 06/16/2021 PACER/ICD REMOTE DATA CAPTURE/[facility] REVIEW,90D Procedures Routine Ischemic cardiomyopathy Chronic atrial fibrillation (HCC) AICD (automatic cardioverter/defibrilla tor) present Ordered: 06/16/2021 Health Maintenance Due Date Last Done Comments [...] Documents on File Type Date Recorded Patient Hr Operations Advisor Expl anation Advanced Directive Advanced Directive 01/26/2013 [...]
--- OUTSIDE RECORDS SUMMARY | 2023-09-08 00:46 | External Medical Summary ---
Author Name Unknown Address Unknown Organization K09[facility] [place] [address] Laboratory Report Ordering Provider Test Date Status SHEKHAR COLBERT 05/02/2021 11:19:08 Final Observation Date Value Abnormality Reference (Units ) Status INR in Capillary blood by Coagulation assay 05/02/2021 11:19:08 3.7 (INR) Final Performing Location [facility] [place] [address]
--- OUTSIDE RECORDS SUMMARY | 2023-09-08 00:46 | External Medical Summary | Summary of Care ---
Author Name Unknown Organization [place] [address] Care Team Providers Care Airframe And Powerplant Mechanic Name Role Phone Hank Oshea MD Primary Care Provider [phone] Reason for Visit * Reason Comments Dosage Adjustment In Person (Anticoag Cl inic) Encounter Details Date Type Department Care Team Description 05/02/2021 Anticoagulation Pharmacy, [facility] [address] [facility] [place] [address] Pharmacist1, [facility] 200 [facility] [place] [id number] Atrial fibrillation, unspecified type (HCC)*; Anticoagulation management encounter; custodial 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 therapy Allergies No Known Active Allergiesdocumented as of this encounter (statuses as of 05/02/2021) Medications Medication Sig Dispensed Refills Start Date End Date Status VITAMIN D 2000 UNITS PO TABS one tablet daily 0 Active nitroglycerin (NITROSTAT) 0.4 MG SUBLIndications:Coronary artery disease involving [place] coronary artery of [place] heart without angina pectoris,Myocardial infarction involving [...] 07/30/2019 Active warfarin sodium (COUMADIN) 5 MG TabletIndications:Atrial fibrillation (HCC) TAKE 10MG (2 TABLETS) BY MOUTH ON WEDNESDAY AND 5MG (1 TABLET) ALL OTHER DAYS. 110 Tab 3 02/13/2020 Active digoxin (LANOXIN) 125 mcg TabletIndications:Rascon ry artery disease involving [place] coronary artery of [place] heart without angina pectoris,Chronic atrial fibrillation (HCC) TAKE ONE TABLET BY MOUTH ON ., ., AND SAT. 45 Tab 3 03/14/2020 Active Clopidogrel Bisulfate 75 MG Oral Tablet (pLAVix)Indications:Perm anent atrial fibrillation (HCC) Take 1 Tab by mouth daily. 90 Tab 3 12/16/2020 Active Furosemide 20 MG Oral Tablet (Lasix)Indications:Heart failure, systolic, due to CAD (HCC) Take 1 tablet by mouth once daily 90 Tab 4 03/24/2021 Active Metoprolol Succinate ER 50 MG Oral Tablet Extended Release 24 Hour (toPROL XL)Indications:Atrial fibrillation, unspecified type (HCC) Take 1 tablet by mouth twice daily 182 Tab 3 03/21/2021 Active Rosuvastatin Calcium 5 MG Oral Tablet (Crestor)Indications:Hea rt failure, systolic, due to CAD (HCC),Ischemic cardiomyopathy,AICD (automatic cardioverter/defibrillat or) present,CAD (coronary artery disease) TAKE 1 TABLET BY MOUTH EVERY OTHER DAY 45 Tab 4 03/24/2021 Active Entresto 24-26 MG Oral Tablet (sacubitril-valsartan 24-26 mg per tab)Indications:Heart failure, systolic, due to CAD (HCC),Ischemic cardiomyopathy Take 1/2 tab each am and pm 90 Tab 3 04/04/2021 Active documented as of this encounter (statuses as of 05/02/2021) Active Problems Problem Noted Date AICD (automatic cardioverter/defibrillat or) present 02/10/2013 Heart failure, systolic, due to CAD 06/2013 Ischemic cardiomyopathy 01/06/2013 Atrial fibrillation 01/06/2013 CAD (coronary artery disease) 07/25/2012 [place] (myocardial infarction) 07/25/2012 documented as of this encounter (statuses as of 05/02/2021) Immunizations Name Administration Dates Next Due DTaP [...] as of this encounter Progress Notes * Reina Barrios RPh - 05/02/2021 11:15 AM EDT Images from the original note were not included. Medication Therapy Disease Management - Anticoagulation Patient: Lucian aLrson : 1935 Current Warfarin Dose As of 05/02/2021 Warfarin maintenance plan: 5 mg (5 mg x 1) every day Patient-Reported Symptoms: Patient Findings Negatives: Signs/symptoms of thrombosis, Signs/symptoms of bleeding, Change in health, Change in alcohol use, Change in activity, Upcoming invasive procedure, Missed doses, Extra doses, Change in medications, Change in diet/appetite, Bruising INR Result As of 05/02/2021 INR goal: 2.0-3.0 INR used for dosin.7 (05/02/2021) Warfarin Plan As of 05/02/2021 Full warfarin instructions: 05/02: Hold; Otherwise 2.5 mg every Wed; 5 mg all other days Next INR check: 05/16/2021 Additional Dosing Information: Repeat PT/INR in 2 week(s) Weekly dose: decreased Reina Barrios [facility] Clinical Pharmacist 05/02/2021, 11:15 AM documented in this encounter Plan of Treatment Upcoming Encounters Date Type Specialty Care Team Description 05/12/2021 Cardiac Studies Cardiology Nirali Yur [facility] [address] [place] [address] [phone] 05/16/2021 Anticoagulation Pharmacy Pharmacist1, [facility] [address] [facility] [address] 06/16/2021 Cardiac Studies Cardiology Gigi Pomeroyr [facility] [address] [facility] [place] [address] [phone] 07/28/2021 [facility] [address] [place] [address] [phone] 10/06/2021 Office Visit Cardiology Wilmar Lay PA-C [address] [place] [address] [phone] Health Maintenance Due Date Last Done Comments [...] Comments INR FINGERSTICK, POINT OF CARE STAT 05/02/2021 11:19 AM EDT Anticoagulation management encounter terminal operator 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 therapy documented in this encounter Results * INR FINGERSTICK, POINT OF CARE (05/02/2021 11:19 AM EDT) Fingerstick INR 3.7 INR [facility] Specimen Blood Narrative Performed At Therapeutic ranges for non-operative patients: Prophylaxsis/treatment of DVT: (Range:2.0-3.0) Treatment of pulmonary embolism:(Range:2.0-3.0) Prevention of systemic embolism from: -tissue heart valves -acute myocardial infarction -valvular heart disease -atrial fibrillation (Range: 2.0-3.0) Mechanical prosthetic valves: (Range: 2.5-3.5) [facility] 56-02 Performing Organization Address City/State/[facility] Co de Phone Number [facility] [address]- [address] [place] [address] documented in this encounter Visit Diagnoses Diagnosis Atrial fibrillation, unspecified type (HCC)- Primary Anticoagulation management encounter Encounter for therapeutic drug monitoring terminal operator 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 therapy documented in this encounter Advance Directives Documents on File Type Date Recorded Patient Extrusion Process Operator Expl 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 Advanced Directive Advanced Directive Advanced Directive Advanced Directive
--- OUTSIDE RECORDS SUMMARY | 2023-09-08 00:46 | External Medical Summary ---
Author Name Unknown Address Unknown Organization [id number]:[facility] [place] [address] Laboratory Report Ordering Provider Test Date Status SHANIA MEYER 08/29/2021 11:56:42 Final Observation Date Value Abnormality Reference (Units ) Status INR in Capillary blood by Coagulation assay 08/29/2021 11:56:42 3.3 (INR) Final Performing Location [facility] [place] [address]
--- OUTSIDE RECORDS SUMMARY | 2023-09-08 00:47 | External Medical Summary ---
Author Name Unknown Address Unknown Organization [id number]:[facility] [place] [address] [place] [address] Laboratory Report Ordering Provider Test Date Status NATALIE KENDALL 02/07/2021 11:35:58 Final Observation Date Value Abnormality Reference (Units ) Status TSH 02/07/2021 11:35:58 6.15 Above high normal 0. 27-4.20 (uIU/mL) Final Performing Location [facility] [address] [place] [address]
--- OUTSIDE RECORDS SUMMARY | 2023-09-08 00:47 | External Medical Summary ---
Author Name Unknown Address Unknown Organization [id number]:[facility] [place] [address] [place] [address] Laboratory Report Ordering Provider Test Date Status NATALIE KENDALL 03/21/2021 11:34:30 Final Observation Date Value Abnormality Reference (Units ) Status TSH 03/21/2021 11:34:30 2.94 0.27-4.20 (uIU/mL) Final Performing Location [facility] - [address] [place] [address]
--- OUTSIDE RECORDS SUMMARY | 2023-09-08 00:47 | External Medical Summary | Summary of Care ---
Author Name Unknown Organization [place] [address] Care Team Providers Care Ocean Fishing Guide Name Role Phone Hank Oshea MD Primary Care Provider [phone] Reason for Visit * Reason Comments Dosage Adjustment In Person (Anticoag Cl inic) Encounter Details Date Type Department Care Team Description 02/07/2021 Anticoagulation Pharmacy, [facility] [address] [facility] [place] [address] Pharmacist1, [facility] [address] [facility] [place], [place] [id number] Atrial fibrillation, unspecified type (HCC)*; Anticoagulation management encounter; prison 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 therapy Allergies No Known Active Allergiesdocumented as of this encounter (statuses as of 02/07/2021) Medications Medication Sig Dispensed Refills Start Date End Date Status VITAMIN D 2000 UNITS PO TABS one tablet daily 0 Active nitroglycerin (NITROSTAT) 0.4 MG SUBLIndications:Rascon ry artery disease involving [place] coronary artery of [place] heart without angina pectoris,Myocardial infarction involving other [...] Tab by mouth daily. 3 07/30/2019 Active furosemide (LASIX) 20 MG Tablet Take 1 Tab by mouth daily. 90 Tab 3 01/02/2020 Active sacubitril-valsartan 24-26 mg per tab (ENTRESTO) [...] OTHER DAYS. 110 Tab 3 02/13/2020 Active rosuvastatin (CRESTOR) 5 MG TabletIndications:Hear t failure, systolic, due to CAD (HCC),Ischemic cardiomyopathy,AICD (automatic cardioverter/defibrill ator) present,CAD (coronary artery disease) TAKE 1 TABLET BY MOUTH EVERY OTHER DAY 45 Tab 5 02/13/2020 Active digoxin (LANOXIN) 125 mcg TabletIndications:Salo nary artery disease involving [place] coronary artery of [place] heart without angina pectoris,Chronic atrial fibrillation (HCC) TAKE ONE TABLET BY MOUTH ON ., ., AND SAT. 45 Tab 3 03/14/2020 Active metoprolol succinate XL (TOPROL XL) 50 MG [id number]:Atrial fibrillation, unspecified type (HCC) Take 1 Tab by mouth 2 times a day. 182 Tab 3 03/22/2020 Active Clopidogrel Bisulfate 75 MG Oral Tablet (pLAVix)Indications:Pe rmanent atrial fibrillation (HCC) Take 1 Tab by mouth daily. 90 Tab 3 12/16/2020 Active documented as of this encounter (statuses as of 02/07/2021) Active Problems Problem Noted Date AICD (automatic cardioverter/defibrillat or) present 02/10/2013 Heart failure, systolic, due to CAD 06/2013 Ischemic cardiomyopathy 01/06/2013 Atrial fibrillation 01/06/2013 CAD (coronary artery disease) 07/25/2012 ND (myocardial infarction) 07/25/2012 documented as of this encounter (statuses as of 02/07/2021) Immunizations Name Administration Dates Next Due DTaP - Dipth/Tet/Acell Pertussis 07/29/2017 Seasonal Influenza, Trivalen t, with Preserve, 3yr & Above, Split 07/29/2017,08/08/2012 documented as of this encounter Social [...] as of this encounter Progress Notes * Chelsy Bradshaw RPh - 02/07/2021 11:27 AM EDT Medication Therapy Disease Management - Anticoagulation Patient: Lucian Larson : 1935 Current Warfarin Dose As of 02/07/2021 Warfarin maintenance plan: 5 mg (5 mg x 1) every day Patient-Reported Symptoms: Patient Findings Negatives: Signs/symptoms of thrombosis, Signs/symptoms of bleeding, Change in health, Change in alcohol use, Change in activity, Upcoming invasive procedure, Missed doses, Extra doses, Change in medications, Change in diet/appetite, Bruising INR Result As of 02/07/2021 INR goal: 2.0-3.0 INR used for dosin.4 (02/07/2021) Warfarin Plan As of 02/07/2021 Full warfarin instructions: 5 mg every day No change documented: Chelsy Bradshaw RPh Next INR check: 03/21/2021 Additional Dosing Information: Repeat PT/INR in 6 week(s) Weekly dose: not changed Chelsy Bradshaw RPh Clinical Pharmacist 02/07/2021, 11:27 AM documented in this encounter Plan of Treatment Upcoming Encounters Date Type Specialty Care Team Description 03/21/2021 Anticoagulation Pharmacy Pharmacist1, [facility] [address] [facility] [place] [address] 04/03/2021 Cardiac Studies Cardiology Isi Yu [facility] [address] [place] [address] [phone] 04/04/2021 Office Visit Cardiology Denis Langston MD [address] [place] [address] [phone] 07/28/2021 Cardiac Studies Cardiology [facility], Pacer [address] [place] [address] [phone] Health Maintenance Due Date Last Done Comments Pneumococcal Vaccine: 65+ Years (1 of 2 - PPSV23) 1941 Zoster Vaccines (1 of 2) 1984 *DEPRESSION SCREENING,ANNUAL FOR PTS 12 AND OVER 12/02/2014 Influenza Vaccine (FLU shot) (#1) 2020 07/29/2017, 08/08/2012 DIABETES SCREEN EVERY 3 YRS-AGE 45 AND ABOVE 07/23/2023 07/23/2020, 04/15/2020, 03/14/2020, Additional history exists DTaP,Tdap,and Td Vaccines (2 - Tdap) 07/29/2027 07/29/2017 MENINGOCOCCAL (MENACTRA/MENVEO) Aged Out No longer eligible based on patient's age to complete this topic documented as of this encounter Implants Not on filedocumented as of this encounter Visit Diagnoses Diagnosis Atrial fibrillation, unspecified type (HCC)- Primary Anticoagulation management encounter 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
--- OUTSIDE RECORDS SUMMARY | 2023-09-08 00:47 | External Medical Summary ---
Author Name Unknown Address Unknown Organization K09:[facility] [place] [place] [address] Laboratory Report Ordering Provider Test Date Status NATALIE KENDALL 02/07/2021 11:35:57 Final Observation Date Value Abnormality Reference (Units ) Status SYNC LEUKOCYTES IN BLOOD BY AUTOMATED COUNT 02/07/2021 11:35:57 7.38 4.00-10.80 (K/uL) Final Segs 02/07/2021 11:35:57 50.0 40.0-75.0 (%) Final Lymphs % 02/07/2021 11:35:57 34.1 18.0-42.0 (%) Final Monos 02/07/2021 11:35:57 11.8 Above high normal 1.0-11.0 (%) Final Eosinophils 02/07/2021 11:35:57 3.8 0.0-6.0 (%) Final Basos 02/07/2021 11:35:57 0.3 0.0-2.0 (%) Final Absolute Segs 02/07/2021 11:35:57 3.69 1.80-7.70 (K/uL) Final Lymphs, absolute 02/07/2021 11:35:57 2.52 1.00-4.80 (K/ul) Final Monos, Abs 02/07/2021 11:35:57 0.87 0.00-1.10 (K/uL) Final Eos, Abs 02/07/2021 11:35:57 0.28 0.00-0.70 (K/uL) Final Basos, Abs 02/07/2021 11:35:57 0.02 0.00-0.20 (K/uL) Final Performing Location [facility] [place] [address]
--- OUTSIDE RECORDS SUMMARY | 2023-09-08 00:47 | External Medical Summary | Summary of Care ---
Author Name Unknown Organization [place] [address] Care Team Providers Care Scrap Separator Name Role Phone Hank Oshea MD Primary Care Provider [phone] Reason for Visit * Reason Onset Date Comments Medication Refill 12/16/2020 Encounter Details Date Type Department Care Team Description 12/16/2020 Refill Cardiology, [facility] [address] [place] [address] Wesly Langston MD 132 [facility] [place] [address] [phone] Permanent atrial fibrillation (HCC) Allergies No Known Active Allergiesdocumented as of this encounter (statuses as of 12/16/2020) Medications Medication Sig Dispensed Refills Start Date End Date Status VITAMIN D 2000 UNITS PO TABS one tablet daily 0 Active nitroglycerin (NITROSTAT) 0.4 MG SUBLIndications:Salo nary artery disease involving ramona coronary artery of ramona heart without angina pectoris,Myocardial infarction involving other [...] 24-26 mg per tab (ENTRESTO) 24-26 MG TABSIndications:Hear t failure, systolic, due to CAD (HCC),Ischemic cardiomyopathy Take 1 Tab by mouth 2 times a day. 180 Tab 3 02/05/2020 Active Additional Information Patient taking differently: 1 Tab Oral BID, Take 1/2 tab each am and pm, Reported on 08/12/2020 warfarin sodium (COUMADIN) 5 MG TabletIndications:At rial fibrillation (HCC) TAKE 10MG (2 TABLETS) BY MOUTH ON WEDNESDAY AND 5MG (1 TABLET) ALL OTHER DAYS. 110 Tab 3 02/13/2020 Active rosuvastatin (CRESTOR) 5 MG TabletIndications:He art failure, systolic, due to CAD (HCC),Ischemic cardiomyopathy,AICD (automatic cardioverter/defibri llator) present,CAD (coronary artery disease) TAKE 1 TABLET BY MOUTH EVERY OTHER DAY 45 Tab 5 02/13/2020 Active digoxin (LANOXIN) 125 mcg TabletIndications:Co ronary artery disease involving ramona coronary artery of ramona heart without angina pectoris,Chronic atrial fibrillation (HCC) TAKE ONE TABLET BY MOUTH ON ., ., AND SAT. 45 Tab 3 03/14/2020 Active metoprolol succinate XL (TOPROL XL) 50 MG [id number]:Atri al fibrillation, unspecified type (HCC) Take 1 Tab by mouth 2 times a day. 182 Tab 3 03/22/2020 Active Clopidogrel Bisulfate 75 MG Oral Tablet (pLAVix)Indications: Permanent atrial fibrillation (HCC) Take 1 Tab by mouth daily. 90 Tab 3 12/16/2020 Active clopidogrel (PLAVIX) 75 MG TabletIndications:Pe rmanent atrial fibrillation (HCC) Take 1 Tab by mouth daily. 90 Tab 3 12/14/2019 1 Discontinue d(Refill) documented as of this encounter (statuses as of 12/16/2020) Active Problems Problem Noted Date AICD (automatic cardioverter/defibrillat or) present 02/10/2013 Heart failure, systolic, due to CAD 06/2013 Ischemic cardiomyopathy 01/06/2013 Atrial fibrillation 01/06/2013 CAD (coronary artery disease) 07/25/2012 PR (myocardial infarction) 07/25/2012 documented as of this encounter (statuses as of 12/16/2020) Immunizations Name Administration Dates Next Due DTaP [...] Telephone Encounter - Wesly Langston MD - 12/16/2020 3:09 PM EST Signed Prescriptions: Disp Refills Clopidogrel Bisulfate 75 MG Oral Tablet (p*90 Tab 3 Sig: Take 1 Tab by mouth daily. Authorizing Provider: WESLY LANGSTON * Telephone Encounter - Rafiq Miramontes RN - 12/16/2020 11:36 AM EST Pending Prescriptions: Disp Refills Clopidogrel Bisulfate 75 MG Oral Tablet (*90 Tab 3 Sig: Take 1 Tab by mouth daily. * Telephone Encounter - Rafiq Miramontes RN - 12/16/2020 11:35 AM EST Pending Prescriptions: Disp Refills Clopidogrel Bisulfate 75 MG Oral Tablet (*90 Tab 3 Sig: Take 1 Tab by mouth daily. Last Office/Telemedicine Visit: 08/12/2020 Next Office Visit: 01/02/2021 Scheduled Provider(s): Pacer Amberly Yu Last medication order date: 12/14/2019 Have you choosen a preferred pharm?? yes Patient Active Problem List Diagnosis Code CAD (coronary artery disease) I25.10 PR (myocardial infarction) ([facility]) I21.9 Heart failure, systolic, due to CAD ([facility]) I50.20, I25.10 Ischemic cardiomyopathy I25.5 Atrial fibrillation ([facility]) I48.91 AICD (automatic cardioverter/defibrillator) present Z95.810 Labs: Lab Results Component Value Date/Time CREATININE - [facility] 1.4 (H) 07/23/2020 11:28 AM Lab Results Component Value Date/Time POTASSIUM - [facility] 4.4 07/23/2020 11:28 AM Lab Results Component Value Date/Time TSH - [facility] 4.50 (H) 07/23/2020 11:28 AM Lab Results Component Value Date/Time LDL CHOLESTEROL (CALCULATED) - [facility] 68 01/11/2018 11:41 AM LDL CHOLESTEROL (CALCULATED) - [facility] 60 06/30/2016 10:59 AM LDL CHOLESTEROL (DIRECT MEASURE) - [facility] 72 05/24/2019 01:32 PM Lab Results Component Value Date/Time ALT - [facility] 20 07/23/2020 11:28 AM Hemoglobin AIC Results: Lab Results Component Value Date/Time HEMOGLOBIN A1C - [facility] 5.4 06/30/2016 10:59 AM * Telephone Encounter - Cindy Roche, spray technician - 12/16/2020 11:19 AM EST Pending Prescriptions: Disp Refills Clopidogrel Bisulfate 75 MG Oral Tablet (*90 Tab 3 Sig: Take 1 Tab by mouth daily. Last Office/Telemedicine Visit: 08/12/2020 Next Office Visit: 01/02/2021 Scheduled Provider(s): Pacer Amberly Yu If no future appointments scheduled, and last appointment is greater than a year ago, please schedule patient for a follow-up appointment Last date the medication was ordered: 12/14/2019 Pharmacy: [facility] [address] [place] Is this request for a controlled substance?No Urine Drug Screen:No results found for this or any previous visit. Patient Phone Numbers Labs: Lab Results Component Value Date/Time CREAT 1.4 (H) 07/23/2020 11:28 AM POTASSIUM 4.4 07/23/2020 11:28 AM TSH 4.50 (H) 07/23/2020 11:28 AM LDLCALC 68 01/11/2018 11:41 AM LDLDIRECT 72 05/24/2019 01:32 PM ALT 20 07/23/2020 11:28 AM HGBA1C 5.4 06/30/2016 10:59 AM documented in this encounter Plan of Treatment Upcoming Encounters Date Type Specialty Care Team Description 12/27/2020 Anticoagulation Pharmacy Pharmacist1, [facility] [address] [place] [address] 01/02/2021 Cardiac Studies Cardiology [facility] [address] [facility] [place] [address] [phone] 04/03/2021 Cardiac Studies Cardiology [facility] [address] [facility] [place] [address] [phone] 04/04/2021 Office Visit Cardiology Wesly Lansgton [facility] [address] [facility] [place] [address] [phone] 07/28/2021 Cardiac Studies Cardiology [facility] [address] [facility] [place] [address] [phone] Health Maintenance Due Date Last Done Comments Zoster Vaccines (1 of 2) 1984 Pneumococcal Vaccine: 65+ Years (1 of 1 - PPSV23) 1999 *DEPRESSION SCREENING,ANNUAL FOR PTS 12 AND OVER [...] Documents on File Type Date Recorded Patient Roaster Supervisor Expl anation Advanced Directive Advanced Directive 01/26/2013 11:57 AM Advanced Directive Advanced Directive Advanced Directive Advanced Directive Advanced Directive Advanced Directive Advanced Directive Advanced Directive Advanced Directive Advanced Directive Advanced Directive Advanced Directive Advanced Directive Advanced Directive Advanced Directive
--- OUTSIDE RECORDS SUMMARY | 2023-09-08 00:47 | External Medical Summary | Summary of Care ---
Author Name Unknown Organization [place] [address] Care Team Providers Care Dental Associate Name Role Phone Hank Oshea MD Primary Care Provider [phone] Reason for Visit * Reason Comments eRx-Medication Refill Encounter Details Date Type Department Care Team Description 03/21/2021 Refill Cardiology, [facility] [address] [facility] [place] [address] [address] [place], [address] [facility] [place] [address] [phone] Heart failure, systolic, due to CAD (HCC)* Allergies No Known Active Allergiesdocumented as of this encounter (statuses as of 03/24/2021) Medications Medication Sig Dispensed Refills Start Date End Date Status VITAMIN D 2000 UNITS PO TABS one tablet daily 0 Activ e nitroglycerin (NITROSTAT) 0.4 MG SUBLIndications:Cor onary artery disease involving [place] coronary artery of [place] heart without angina pectoris,Myocardial infarction involving other [...] Tab by mouth daily. 3 07/30/2019 Active sacubitril-valsarta n 24-26 mg per tab (ENTRESTO) 24-26 MG TABSIndications:Hea rt failure, systolic, due to CAD (HCC),Ischemic cardiomyopathy Take 1 Tab by mouth 2 times a day. 180 Tab 3 02/05/2020 Active Additional Information Patient taking differently: 1 Tab Oral BID, Take 1/2 tab each am and pm, Reported on 08/12/2020 warfarin sodium (COUMADIN) 5 MG TabletIndications:A trial fibrillation (HCC) TAKE 10MG (2 TABLETS) BY MOUTH ON WEDNESDAY AND 5MG (1 TABLET) ALL OTHER DAYS. 110 Tab 3 02/13/2020 Active digoxin (LANOXIN) 125 mcg TabletIndications:C oronary artery disease involving [place] coronary artery of [place] heart without angina pectoris,Chronic atrial fibrillation (HCC) TAKE ONE TABLET BY MOUTH ON ., ., AND WED. 45 Tab 3 03/14/2020 Active Clopidogrel Bisulfate 75 MG Oral Tablet (pLAVix)Indications :Permanent atrial fibrillation (HCC) Take 1 Tab by mouth daily. 90 Tab 3 12/16/2020 Active Furosemide 20 MG Oral Tablet (Lasix)Indications: Heart failure, systolic, due to CAD (HCC) Take 1 tablet by mouth once daily 90 Tab 4 03/24/2021 Active Metoprolol Succinate ER 50 MG Oral Tablet Extended Release 24 Hour (toPROL XL)Indications:Atri al fibrillation, unspecified type (HCC) Take 1 tablet by mouth twice daily 182 Tab 3 03/21/2021 Active furosemide (LASIX) 20 MG Tablet Take 1 Tab by mouth daily. 90 Tab 3 01/02/2020 1 Discontinued rosuvastatin (CRESTOR) 5 MG TabletIndications:H eart failure, systolic, due to CAD (HCC),Ischemic cardiomyopathy,AICD (automatic cardioverter/defibr illator) present,CAD (coronary artery disease) TAKE 1 TABLET BY MOUTH EVERY OTHER DAY 45 Tab 5 02/13/2020 1 Discontinued documented as of this encounter (statuses as of 03/24/2021) Active Problems Problem Noted Date AICD (automatic cardioverter/defibrillat or) present 02/10/2013 Heart failure, systolic, due to CAD 06/2013 Ischemic cardiomyopathy 01/06/2013 Atrial fibrillation 01/06/2013 CAD (coronary artery disease) 07/25/2012 [place] (myocardial infarction) 07/25/2012 documented as of this encounter (statuses as of 03/24/2021) Immunizations Name Administration Dates Next Due DTaP [...] Telephone Encounter - Zulma Lay PA-C - 03/24/2021 11:54 AM EDT Signed Prescriptions: Disp Refills Furosemide 20 MG Oral Tablet (Lasix) 90 Tab 4 Sig: Take 1 tablet by mouth once daily Authorizing Provider: ZULMA LAY * Telephone Encounter - Sosa Cotter LPN - 03/24/2021 8:16 AM EDT Pending Prescriptions: Disp Refills Furosemide 20 MG Oral Tablet (Lasix) [Pha*90 Tab 4 Sig: Take 1 tablet by mouth once daily * Telephone Encounter - Sosa Cotter LPN - 03/24/2021 8:15 AM EDT Pending Prescriptions: Disp Refills Furosemide 20 MG Oral Tablet (Lasix) [Pha*90 Tab 0 Sig: Take 1 tablet by mouth once daily Last Office/Telemedicine Visit: 08/12/2020 Next Office Visit: 04/03/2021 Scheduled Provider(s): Isi Yu If no future appointments scheduled, and last appointment is greater than a year ago, please schedule patient for a follow-up appointment Last date the medication was ordered: 1 yr Pharmacy: [facility] [address] Is this request for a controlled [...] Encounters Date Type Specialty Care Team Description 04/03/2021 Cardiac Studies Cardiology Isi Yu [address] [place] [address] [phone] 04/04/2021 Office Visit Cardiology Denis Langston MD [address] [place] [address] [phone] 05/02/2021 Anticoagulation Pharmacy Pharmacist, [facility] [address] [facility] [address] 07/28/2021 Cardiac Studies Cardiology [place] [address] [place] [address] [phone] Health Maintenance Due Date Last Done Comments [...] Documents on File Type Date Recorded Patient 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
--- OUTSIDE RECORDS SUMMARY | 2023-09-08 00:47 | External Medical Summary ---
Author Name Unknown Address Unknown Organization [id number]:[facility] [address] [place] [address] Laboratory Report Ordering Provider Test Date Status NATALIE KENDALL 02/07/2021 11:36:00 Final Observation Date Value Abnormality Reference (Units ) Status BUN 02/07/2021 11:36:00 26 Above high normal 6-20 (mg/dL) Final Creatinine 02/07/2021 11:36:00 1.3 Above high normal 0.6-1.2 (mg/dL) Final Glomerular filtration rate/1.73 sq M.predicted [Volume Rate/Area] in Serum, Plasma or Blood by Creatinine-based formula (CKD-EPI) 02/07/2021 11:36:00 49.4 Below low normal >=60.0 (mL/min) Final If patient is Americ an, multiply estimated GFR by 1.159. Sodium 02/07/2021 11:36:00 141 135-146 (m mol/L) Final Potassium 02/07/2021 11:36:00 5.0 3.5-5.1 (m mol/L) Final Cl 02/07/2021 11:36:00 104 98-107 (mm ol/L) Final CO2 02/07/2021 11:36:00 27 22-32 (mmo l/L) Final Anion gap 02/07/2021 11:36:00 10 7-15 (mmol /L) Final Glucose 02/07/2021 11:36:00 58 Below low normal 70- 120 (mg/dL) Final Albumin 02/07/2021 11:36:00 4.4 3.8-5.0 (g /dL) Final AST (Aspartate aminotransferase) 02/07/2021 11:36:00 30 10-50 (U/L) Fin al Alk Phos 02/07/2021 11:36:00 98 35-130 (U/ L) Final Bilirubin, Total 02/07/2021 11:36:00 0.7 <=1 .2 (mg/dL) Final Calcium 02/07/2021 11:36:00 10.1 8.4-10.2 ( mg/dL) Final Protein 02/07/2021 11:36:00 7.1 6.0-8.3 (g /dL) Final ALT (Alanine aminotransferase) 02/07/2021 11:36:00 21 10-50 (U/L) Pedro geronimo Performing Location [facility] [address] [place] [address]
--- OUTSIDE RECORDS SUMMARY | 2023-09-08 00:47 | External Medical Summary | Summary of Care ---
Author Name Unknown Organization [place] [address] Care Team Providers Care Structural Technician Name Role Phone Hank Oshea MD Primary Care Provider [phone] Reason for Visit * Reason Comments Dosage Adjustment In Person (Anticoag Cl inic) Encounter Details Date Type Department Care Team Description 12/27/2020 Anticoagulation Pharmacy, [facility] [address] [facility] [place] [address] Pharmacist1, [facility] [address] [facility] [place], [place] [id number] Anticoagulation management encounter*; custodial 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 therapy Allergies No Known Active Allergiesdocumented as of this encounter (statuses as of 12/27/2020) Medications Medication Sig Dispensed Refills Start Date End Date Status VITAMIN D 2000 UNITS PO TABS one tablet daily 0 Active nitroglycerin (NITROSTAT) 0.4 MG SUBLIndications:Rascon ry artery disease involving [place] coronary artery of [...] 125 mcg TabletIndications:Salo nary artery disease involving [place] coronary artery of [place] heart without angina pectoris,Chronic atrial fibrillation (HCC) TAKE ONE TABLET BY MOUTH ON ., ., AND SAT. 45 Tab 3 03/14/2020 Active metoprolol succinate XL (TOPROL XL) 50 MG [id number]:Atrial fibrillation, unspecified type (HCC) Take 1 Tab by mouth 2 times a day. 182 Tab 3 03/22/2020 Active Clopidogrel Bisulfate 75 MG Oral Tablet (pLAVix)Indications:Pe rmanent atrial fibrillation (HCC) Take 1 Tab by mouth daily. 90 Tab 3 12/16/2020 Active documented as of this encounter (statuses as of 12/27/2020) Active Problems Problem Noted Date AICD (automatic cardioverter/defibrillat or) present 02/10/2013 Heart failure, systolic, due to CAD 06/2013 Ischemic cardiomyopathy 01/06/2013 Atrial fibrillation 01/06/2013 CAD (coronary artery disease) 07/25/2012 [place] (myocardial infarction) 07/25/2012 documented as of this encounter (statuses as of 12/27/2020) Immunizations Name Administration Dates Next Due DTaP [...] as of this encounter Progress Notes * Kindra Garcia RP - 12/27/2020 11:36 AM EST Medication Therapy Disease Management - Anticoagulation Patient: Lucian Larson : 1935 Current Warfarin Dose As of 12/27/2020 Warfarin maintenance plan: 5 mg (5 mg x 1) every day Patient-Reported Symptoms: Patient Findings Negatives: Signs/symptoms of thrombosis, Signs/symptoms of bleeding, Change in health, Change in alcohol use, Change in activity, Upcoming invasive procedure, Missed doses, Extra doses, Change in medications, Change in diet/appetite, Bruising INR Result As of 12/27/2020 INR goal: 2.0-3.0 INR used for dosin.8 (12/27/2020) Warfarin Plan As of 12/27/2020 Full warfarin instructions: 5 mg every day No change documented: Kindra Garcia татьяна Next INR check: 02/07/2021 Additional Dosing Information: Repeat PT/INR in 6 week(s) Weekly dose: not changed Kindra Garcia [facility] Clinical Pharmacist 12/27/2020, 11:36 AM documented in this encounter Plan of Treatment Upcoming Encounters Date Type Specialty Care Team Description 01/02/2021 Cardiac Studies Cardiology [place], [facility] [address] [place] [address] [phone] 02/07/2021 Anticoagulation Pharmacy Pharmacist1, [facility] [address] [facility] [place] [address] 04/03/2021 Cardiac Studies Cardiology [facility] [place] [address] [facility] [place] [address] [phone] 04/04/2021 Office Visit Cardiology Denis Langston MD [address] [place] [address] [phone] 07/28/2021 Cardiac Studies Cardiology Isi Yu [facility] [address] [place] [address] [phone] Scheduled Orders Name Type Priority Associated Diagnoses Orde r Schedule PT INR Lab Routine Anticoagulation management encounter custodial 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 therapy 26 Occurrences starting 12/27/2020 until 12/27/2021 INR FINGERSTICK, POINT OF CARE Point of Care Testing - Unsolicited Results STAT Anticoagulation management encounter custodial 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 therapy Every 2 Weeks for 26 Occurrences starting 12/27/2020 until 12/27/2021, 1 completed Health Maintenance Due Date Last [...] Comments INR FINGERSTICK, POINT OF CARE STAT 12/27/2020 11:40 AM EST Anticoagulation management encounter 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 therapy documented in this encounter Results * INR FINGERSTICK, POINT OF CARE (12/27/2020 11:40 AM EST) Fingerstick INR 2.8 INR [facility] Specimen Blood Narrative Performed At Therapeutic ranges for non-operative patients: Prophylaxsis/treatment of DVT: (Range:2.0-3.0) Treatment of pulmonary embolism:(Range:2.0-3.0) Prevention of systemic embolism from: -tissue heart valves -acute myocardial infarction -valvular heart disease -atrial fibrillation (Range: 2.0-3.0) Mechanical prosthetic valves: (Range: 2.5-3.5) [facility] [address] Performing Organization Address City/State/[facility] Co de Phone Number [facility] [address] [place] [address] documented in this encounter Visit Diagnoses Diagnosis Anticoagulation management encounter- Primary Encounter for therapeutic drug monitoring 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 therapy documented in this encounter Advance Directives Documents on File Type Date Recorded Patient Dianetic Counselor Expl anation Advanced Directive Advanced Directive 01/26/2013 11:57 AM Advanced Directive Advanced Directive Advanced Directive Advanced Directive Advanced Directive Advanced Directive Advanced Directive Advanced Directive Advanced Directive Advanced Directive Advanced Directive Advanced Directive Advanced Directive Advanced Directive Advanced Directive Advanced Directive
--- OUTSIDE RECORDS SUMMARY | 2023-09-08 00:47 | External Medical Summary ---
Author Name Unknown Address Unknown Organization K09:[facility] [place] [address] Laboratory Report Ordering Provider Test Date Status SHEKHAR COLBERT 03/21/2021 11:29:46 Final Observation Date Value Abnormality Reference (Units ) Status INR in Capillary blood by Coagulation assay 03/21/2021 11:29:46 3.1 (INR) Final Performing Location [facility] [place] [address]
--- OUTSIDE RECORDS SUMMARY | 2023-09-08 00:47 | External Medical Summary ---
Author Name Unknown Address Unknown Organization K09:[facility] [place] [address] Laboratory Report Ordering Provider Test Date Status NATALIE KENDALL 02/07/2021 11:35:57 Final Observation Date Value Abnormality Reference (Units ) Status WBC, Total 02/07/2021 11:35:57 7.38 4.00-10.8 0 (K/uL) Final RBC 02/07/2021 11:35:57 4.41 Below low normal 4.5 0-5.25 (M/uL) Final Hemoglobin 02/07/2021 11:35:57 14.4 14.0-16.8 (g/dL) Final HCT 02/07/2021 11:35:57 43.6 40.0-48.4 (%) Final MCV 02/07/2021 11:35:57 98.9 82.0-99.5 (fL) Final MCH 02/07/2021 11:35:57 32.7 27.0-34.0 (pg) Final MCHC 02/07/2021 11:35:57 33.0 32.0-36.0 (g/dL) Final RDW 02/07/2021 11:35:57 13.7 11.5-15.5 (%) Final Platelets 02/07/2021 11:35:57 171 140-400 (K /uL) Final MPV 02/07/2021 11:35:57 10.2 6.6-11.1 ( fL) Final Performing Location [facility] [place] [address]
--- OUTSIDE RECORDS SUMMARY | 2023-09-08 00:47 | External Medical Summary | Summary of Care ---
Author Name Unknown Organization [place] [address] Care Team Providers Care Electrotyper Name Role Phone Hank Oshea MD Primary Care Provider [phone] Reason for Visit * Reason Comments Dosage Adjustment In Person (Anticoag Cl inic) Encounter Details Date Type Department Care Team Description 03/21/2021 Anticoagulation Pharmacy, [facility] 200 [place] [address] Pharmacist1, [facility] 200 [facility] [place] [id number] Atrial fibrillation, unspecified type (HCC)*; Anticoagulation management encounter; 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; Hypothyroidism Allergies No Known Active Allergiesdocumented as of this encounter (statuses as of 03/21/2021) Medications Medication Sig Dispensed Refills Start Date End Date Status VITAMIN D 2000 UNITS PO TABS one tablet daily 0 Active nitroglycerin (NITROSTAT) 0.4 MG SUBLIndications:Rascon ry artery disease involving [place] coronary artery of [place] heart without angina pectoris,Myocardial infarction involving [...] 125 mcg TabletIndications:Salo nary artery disease involving [place] coronary artery of [place] heart without angina pectoris,Chronic atrial fibrillation (HCC) TAKE ONE TABLET BY MOUTH ON ., ., AND SAT. 45 Tab 3 03/14/2020 Active metoprolol succinate XL (TOPROL XL) 50 MG [id number]:Atrial fibrillation, unspecified type (HCC) Take 1 Tab by mouth 2 times a day. 182 Tab 3 03/22/2020 Active Clopidogrel Bisulfate 75 MG Oral Tablet (pLAVix)Indications:Pe rmanent atrial fibrillation (HCC) Take 1 Tab by mouth daily. 90 Tab 3 12/16/2020 Active documented as of this encounter (statuses as of 03/21/2021) Active Problems Problem Noted Date AICD (automatic cardioverter/defibrillat or) present 02/10/2013 Heart failure, systolic, due to CAD 06/2013 Ischemic cardiomyopathy 01/06/2013 Atrial fibrillation 01/06/2013 CAD (coronary artery disease) 07/25/2012 [place] (myocardial infarction) 07/25/2012 documented as of this encounter (statuses as of 03/21/2021) Immunizations Name Administration Dates Next Due DTaP [...] Progress Notes * Luiza Nguyen RPh - 03/21/2021 11:26 AM EDT Images from the original note were not included. Medication Therapy Disease Management - Anticoagulation Patient: Lucian Larson : 1935 Current Warfarin Dose As of 03/21/2021 Warfarin maintenance plan: 5 mg (5 mg x 1) every day Patient-Reported Symptoms: Patient Findings Negatives: Signs/symptoms of thrombosis, Signs/symptoms of bleeding, Change in health, Change in alcohol use, Change in activity, Upcoming invasive procedure, Missed doses, Extra doses, Change in medications, Change in diet/appetite, Bruising INR Result As of 03/21/2021 INR goal: 2.0-3.0 INR used for dosin.1 (03/21/2021) Warfarin Plan As of 03/21/2021 Full warfarin instructions: 5 mg every day No change documented: Luiza Masters RPh Next INR check: 05/02/2021 Additional Dosing Information: Repeat PT/INR in 6 week(s) Weekly dose: not changed Luiza Paz RPh Clinical Pharmacist 03/21/2021, 11:26 AM documented in this encounter Plan of Treatment Upcoming Encounters Date Type Specialty Care Team Description 04/03/2021 Cardiac Studies Cardiology Isi Yu [facility] [address] [place] [address] [phone] 04/04/2021 Office Visit Cardiology Denis Langston MD [address] [place] [address] [phone] 05/02/2021 Anticoagulation Pharmacy Pharmacist1, [facility] [address] [place] [address] 07/28/2021 Cardiac Studies Cardiology [facility] 132 [facility] [place] [address] [phone] Pending Results Name Type Priority Associated Diagnoses Date /Time TSH Lab Routine Hypothyroidism 03/21/2021 11:34 AM EDT Health Maintenance Due Date Last [...] Comments INR FINGERSTICK, POINT OF CARE STAT 03/21/2021 11:29 AM EDT Anticoagulation management encounter [facility] 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 therapy documented in this encounter Results * INR FINGERSTICK, POINT OF CARE (03/21/2021 11:29 AM EDT) Fingerstick INR 3.1 INR [facility] Specimen Blood Narrative Performed At Therapeutic ranges for non-operative patients: Prophylaxsis/treatment of DVT: (Range:2.0-3.0) Treatment of pulmonary embolism:(Range:2.0-3.0) Prevention of systemic embolism from: -tissue heart valves -acute myocardial infarction -valvular heart disease -atrial fibrillation (Range: 2.0-3.0) Mechanical prosthetic valves: (Range: 2.5-3.5) [facility] Performing Organization Address City/State/[facility] Co de Phone Number [facility] [address] [place] [address] documented in this encounter Visit Diagnoses Diagnosis Atrial fibrillation, unspecified type (HCC)- Primary Anticoagulation management encounter Encounter for therapeutic drug monitoring 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 Hypothyroidism Unspecified hypothyroidism documented in this encounter Advance Directives Documents on File Type Date Recorded Patient Machine Operator General Expl 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
--- OUTSIDE RECORDS SUMMARY | 2023-09-08 00:47 | External Medical Summary | Summary of Care ---
Author Name Unknown Organization [place] [address] Care Team Providers Care Cement Or Concrete Finishing Supervisor Name Role Phone Hank Oshea MD Primary Care Provider [phone] Reason for Visit * Reason Comments eRx-Medication Refill Encounter Details Date Type Department Care Team Description 03/21/2021 Refill Cardiology, [facility] [address] [facility] [place] [address] Zulma Lay PA-C [address] [facility] [place] [address] [phone] Atrial fibrillation, unspecified type (HCC) Allergies No Known Active Allergiesdocumented as of this encounter (statuses as of 03/21/2021) Medications Medication Sig Dispensed Refills Start Date End Date Status VITAMIN D 2000 UNITS PO TABS one tablet daily 0 Activ e nitroglycerin (NITROSTAT) 0.4 MG SUBLIndications:Cor onary artery disease involving [place] coronary artery of [place] heart without angina pectoris,Myocardial infarction involving other [...] mouth daily. 90 Tab 3 01/02/2020 Active sacubitril-valsarta n 24-26 mg per tab [...] 3 02/13/2020 Active rosuvastatin (CRESTOR) 5 MG TabletIndications:H eart failure, systolic, due to CAD (HCC),Ischemic cardiomyopathy,AICD (automatic cardioverter/defibr illator) present,CAD (coronary artery disease) TAKE 1 TABLET BY MOUTH EVERY OTHER DAY 45 Tab 5 02/13/2020 Active digoxin (LANOXIN) 125 mcg TabletIndications:C oronary artery disease involving [place] coronary artery of [place] heart without angina pectoris,Chronic atrial fibrillation (HCC) TAKE ONE TABLET BY MOUTH ON ., ., AND SAT. 45 Tab 3 03/14/2020 Active Clopidogrel Bisulfate 75 MG Oral Tablet (pLAVix)Indications :Permanent atrial fibrillation (HCC) Take 1 Tab by mouth daily. 90 Tab 3 12/16/2020 Active Metoprolol Succinate ER 50 MG Oral Tablet Extended Release 24 Hour (toPROL XL)Indications:Atri al fibrillation, unspecified type (HCC) Take 1 tablet by mouth twice daily 182 Tab 3 03/21/2021 Active metoprolol succinate XL (TOPROL XL) 50 MG [id number]:Atr ial fibrillation, unspecified type (HCC) Take 1 Tab by mouth 2 times a day. 182 Tab 3 03/22/2020 1 Discontinued documented as of this encounter (statuses as of 03/21/2021) Active Problems Problem Noted Date AICD (automatic cardioverter/defibrillat or) present 02/10/2013 Heart failure, systolic, due to CAD 06/2013 Ischemic cardiomyopathy 01/06/2013 Atrial fibrillation 01/06/2013 CAD (coronary artery disease) 07/25/2012 [place] (myocardial infarction) 07/25/2012 documented as of this [...] Telephone Encounter - Zulma Lay PA-C - 03/21/2021 3:58 PM EDT Signed Prescriptions: Disp Refills Metoprolol Succinate ER 50 MG Oral Tablet *182 Tab3 Sig: Take 1 tablet by mouth twice daily Authorizing Provider: ZULMA LAY * Telephone Encounter - Campbell Maharaj RP - 03/21/2021 3:06 PM EDT Pending Prescriptions: Disp Refills Metoprolol Succinate ER 50 MG Oral Tablet*182 Tab3 Sig: Take 1 tablet by mouth twice daily * Telephone Encounter - Campbell Maharaj RP - 03/21/2021 3:06 PM EDT Telepharmacy is not delegated to approve refills for medications from this specialty. Please approve if appropriate. Thanks, Campbell Maharaj, January.Ph. Clinical Pharmacist Telepharmacy [phone] 03/21/2021,3:06 PM Electronically signed by Campbell Maharaj [facility] at 03/21/2021 3:06 PM EDT * Telephone Encounter - Herlinda Palmer CPhT - 03/21/2021 1:58 PM EDT Pending Prescriptions: Disp Refills Metoprolol Succinate ER 50 MG Oral Tablet*182 Tab0 Sig: Take 1 tablet by mouth twice daily Last Office/Telemedicine Visit: 08/12/2020 Next Office Visit: 04/03/2021 Scheduled Provider(s): Pacejanuary Yu If no future appointments scheduled, and last appointment is greater than a year ago, please schedule patient for a follow-up appointment Last date the medication was ordered: 03.22.2020 Pharmacy: [facility] Is this request for a controlled substance?No Urine Drug Screen:No results found for this or any previous visit. Patient Phone Numbers Labs: Lab Results Component Value Date/Time CREAT 1.3 (H) 02/07/2021 11:36 AM CREAT 1.4 (H) 07/23/2020 11:28 AM POTASSIUM 5.0 02/07/2021 11:36 AM POTASSIUM 4.4 07/23/2020 11:28 AM TSH 6.15 (H) 02/07/2021 11:35 AM TSH 4.50 (H) 07/23/2020 11:28 AM LDLCALC 67 02/07/2021 11:35 AM LDLCALC 68 01/11/2018 11:41 AM LDLDIRECT 72 05/24/2019 01:32 PM ALT 21 02/07/2021 11:36 AM ALT 20 07/23/2020 11:28 AM HGBA1C 5.4 06/30/2016 10:59 AM documented in this encounter Plan of Treatment Upcoming Encounters Date Type Specialty Care Team Description 04/03/2021 Cardiac Studies Cardiology [facility], [facility] [address] [place] [address] [phone] 04/04/2021 Office Visit Cardiology Denis Langston MD [address] [place] [address] [phone] 05/02/2021 Anticoagulation Pharmacy Pharmacist1, [facility] [address] [place] [address] 07/28/2021 Cardiac Studies Cardiology [facility] [address] [place] [address] [phone] Health Maintenance Due Date Last Done Comments [...] Documents on File Type Date Recorded Patient Well Drill Operator Rotary Drill Expl 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
--- OUTSIDE RECORDS SUMMARY | 2023-09-08 00:47 | External Medical Summary ---
Author Name Unknown Address Unknown Organization [id number]:[facility] - [address] [place] [address] Laboratory Report Ordering Provider Test Date Status NATALIE KENDALL 02/07/2021 11:35:58 Final Observation Date Value Abnormality Reference (Units ) Status Triglyceride 02/07/2021 11:35:58 90 <=174 ( mg/dL) Final Triglyceride Reference Range s (mg/dL):
<150 Acceptable
150-174 Borderline high
175-499 High
>=500 Very high Cholesterol 02/07/2021 11:35:58 137 <200 (mg /dL) Final Total Cholesterol Reference Ranges (mg/dL):
<200 Desirable
200-239 Borderline high
>=240 High HDL 02/07/2021 11:35:58 52 >39 (mg/dL ) Final HDL Cholesterol Reference Ra nges (mg/dL):
>=60 High (Desirable)
<50 Low (Undesirable) For Females
<40 Low (Undesirable) For Males NON-HDL CHOLESTEROL 02/07/2021 11:35:58 85 <=159 (mg/dL) Final Non-HDL Cholesterol Referenc e Range (mg/dL):
<100 Target level for high risk ASCVD patient
<130 Optimal for general population
130-159 Near optimal for general population
160-189 Borderline High
190-219 High
>=220 Very High LDL, (calculated) 02/07/2021 11:35:58 67 <= 129 (mg/dL) Final LDL Cholesterol Reference Ra nges (mg/dL):
<70 Target level for high risk ASCVD patient
<100 Optimal for general population
100-129 Near optimal for general population
130-159 Borderline high
160-189 High
>=190 Very high Performing Location [facility] - [address] [facility] [address]
--- OUTSIDE RECORDS SUMMARY | 2023-09-08 00:47 | External Medical Summary | Summary of Care ---
Author Name Unknown Organization [place] [address] Care Team Providers Care Collection Systems Administrator Name Role Phone Hank Oshea MD Primary Care Provider [phone] Reason for Visit * Reason Comments Defibrillator Clinic Encounter Details Date Type Department Care Team Description 01/02/2021 Cardiac Studies Cardiology, [facility] [address] [facility] [place] [address] [place], [facility] [address] [facility] [place] [address] [phone] Ischemic cardiomyopathy*; Atrial fibrillation, unspecified type (HCC); AICD (automatic cardioverter/defibril lator) present Allergies No Known Active Allergiesdocumented as of this encounter (statuses as of 01/02/2021) Medications Medication Sig Dispensed Refills Start Date End Date Status VITAMIN D 2000 UNITS PO TABS one tablet daily 0 Active nitroglycerin (NITROSTAT) 0.4 MG SUBLIndications:Rascon ry artery disease involving [place] coronary artery of [place] heart without angina pectoris,Myocardial infarction involving other [...] 125 mcg TabletIndications:Salo nary artery disease involving [place] coronary artery of [place] heart without angina pectoris,Chronic atrial fibrillation (HCC) TAKE ONE TABLET BY MOUTH ON ., ., AND SAT. 45 Tab 3 03/14/2020 Active metoprolol succinate XL (TOPROL XL) 50 MG [id number]:Atrial fibrillation, unspecified type (HCC) Take 1 Tab by mouth 2 times a day. 182 Tab 3 03/22/2020 Active Clopidogrel Bisulfate 75 MG Oral Tablet (pLAVix)Indications:Pe rmanent atrial fibrillation (HCC) Take 1 Tab by mouth daily. 90 Tab 3 12/16/2020 Active documented as of this encounter (statuses as of 01/02/2021) Active Problems Problem Noted Date AICD (automatic cardioverter/defibrillat or) present 02/10/2013 Heart failure, systolic, due to CAD 06/2013 Ischemic cardiomyopathy 01/06/2013 Atrial fibrillation 01/06/2013 CAD (coronary artery disease) 07/25/2012 [place] (myocardial infarction) 07/25/2012 documented as of this encounter (statuses as of 01/02/2021) Immunizations Name Administration Dates Next Due DTaP [...] Progress Notes * Addi Vaughn TECH - 01/02/2021 9:15 AM EST REMOTE MONITORING TRANSMISSION - DEFIBRILLATOR -- 01/02/2021 TYPE OF VISIT: This is a scheduled remote monitoring transmission. INDICATION: I25.5 Ischemic cardiomyopathy (primary encounter diagnosis) I48.91 Atrial fibrillation, unspecified type (HCC) Z95.810 AICD (automatic cardioverter/defibrillator) present IMPLANTING PHYSICIAN:Dre Gonzalez M.D. IMPLANT/DEVICE HISTORY:02/02/2013 CURRENT SYSTEM: ICD:MedtronicModel:[id number] SN:[id number] RV lead:MedtronicModel:[id number] SN:[id number] Abandoned leads:None ALERTS/ADVISORIES:None PATIENT EVALUATION: Presenting rhythm :Normal sinus rhythm. DEVICE EVALUATION: R V Auto threshold:Not measured Sensin.1mV Pacing impedance:551ohms Percentage paced:0.5 % HVLI:63ohms Battery:2.67volts PANCHO:2.63volts Charge time:11.4seconds Short V-V intervals:0 PVC singles counter : 240 per hour over a 92 day period. (this is a significant increase) Thoracic impedance monitoring:N/A VT/VF episodes (since last evaluation):2 VT nonsustained episodes of which the longest is 1 seconds with a ventricular rate of 194 bpm Past VT/VF episodes: First shock:02/02/2013with implant procedure. Most recent shock:same Total ICD shocks/ATP therapy: Appropriate shocks:1 Inappropriate shocks:0 ATP therapy:0 FINAL ICD PARAMETERS: Pacemaker mode/rate:VVIat 50bpm RV Amplitude:1.5volts Pulse width:0.5msec VT detection:OFF FVT detection:ON Rate - 188- 231bpm(Burst (1), 25joules, 35 joules x 4 ) VF detection:ON Rate - 188bpm ( ATP during charging,25 joules,35 joules x5) Mode switch:Not available IMPRESSION: Normal defibrillator function. Adequate battery reserve PLAN: The next remote monitoring transmission is scheduled for 3 months. Nurse: GHULAM Pino TIN PLATER: Dr. Langston This patient was interrogated remotely [...] Encounters Date Type Specialty Care Team Description 02/07/2021 Anticoagulation Pharmacy Pharmacist1, [facility] [address] [facility] [address] 04/03/2021 Cardiac Studies Cardiology [place], [facility] [address] [place] [address] [phone] 04/04/2021 Office Visit Cardiology Denis Langston MD [address] [facility] [address] [phone] 07/28/2021 Cardiac Studies Cardiology [facility] [place] [address] [address] [phone] Scheduled Orders Name Type Priority Associated Diagnoses Orde r Schedule DEFIBRILLATOR REMOTE INTERROGATION EVAL/INTERP,TO 90D Procedures Routine Ischemic cardiomyopathy Atrial fibrillation, unspecified type (HCC) AICD (automatic cardioverter/defibrill ator) present Ordered: 01/02/2021 PACER/ICD REMOTE DATA CAPTURE/TECH REVIEW,90D Procedures Routine Ischemic cardiomyopathy Atrial fibrillation, unspecified type (HCC) AICD (automatic cardioverter/defibrill ator) present Ordered: 01/02/2021 Health Maintenance Due Date Last Done Comments [...] Documents on File Type Date Recorded Patient Vacuum Extractor Operator Expl anation Advanced Directive Advanced Directive 01/26/2013 11:57 AM Advanced Directive Advanced Directive Advanced Directive Advanced Directive Advanced Directive Advanced Directive Advanced Directive Advanced Directive Advanced Directive Advanced Directive Advanced Directive Advanced Directive Advanced Directive Advanced Directive Advanced Directive Advanced Directive
--- OUTSIDE RECORDS SUMMARY | 2023-09-08 00:47 | External Medical Summary ---
Author Name Unknown Address Unknown Organization K09:[facility] [place] [address] Laboratory Report Ordering Provider Test Date Status SHEKHAR COLBERT 02/07/2021 11:33:44 Final Observation Date Value Abnormality Reference (Units ) Status INR in Capillary blood by Coagulation assay 02/07/2021 11:33:44 2.4 (INR) Final Performing Location [facility] [place] [address]
--- OUTSIDE RECORDS SUMMARY | 2023-09-08 00:47 | External Medical Summary ---
Author Name Unknown Address Unknown Organization K09:[facility] [place] [address] Laboratory Report Ordering Provider Test Date Status SHEKHAR COLBERT 12/27/2020 11:40:16 Final Observation Date Value Abnormality Reference (Units ) Status INR in Capillary blood by Coagulation assay 12/27/2020 11:40:16 2.8 (INR) Final Performing Location [facility] [place] [address]
--- OUTSIDE RECORDS SUMMARY | 2023-09-08 00:47 | External Medical Summary | Summary of Care ---
Author Name Unknown Organization [place] [address] Care Team Providers Care E Mail System Administrator Name Role Phone Hank Oshea MD Primary Care Provider [phone] Reason for Visit * Reason Comments eRx-Medication Refill Encounter Details Date Type Department Care Team Description 03/21/2021 Refill Cardiology, [facility] [address] [place] [address] Denis Langston MD [address] [facility] [place] [address] [phone] Heart failure, systolic, due to CAD (HCC); Ischemic cardiomyopathy; AICD (automatic cardioverter/defibrillat or) present; CAD (coronary artery disease) Allergies No Known Active Allergiesdocumented as of this encounter (statuses as of 03/24/2021) Medications Medication Sig Dispensed Refills Start Date End Date Status VITAMIN D 2000 UNITS PO TABS one tablet daily 0 Activ e nitroglycerin (NITROSTAT) 0.4 MG SUBLIndications:Cor onary artery disease involving [place] coronary artery of [place] heart without angina pectoris,Myocardial infarction involving [...] 125 mcg TabletIndications:C oronary artery disease involving [place] coronary artery of [place] heart without angina pectoris,Chronic atrial fibrillation [...] OTHER DAY 45 Tab 4 03/24/2021 Active furosemide (LASIX) 20 MG Tablet Take [...] 11:54 AM EDT Signed Prescriptions: Disp Refills Rosuvastatin Calcium 5 MG Oral Tablet (Cre*45 Tab 4 Sig: TAKE 1 TABLET BY MOUTH EVERY OTHER DAY Authorizing Provider: ZULMA LAY * Telephone Encounter - Sosa Cotter LPN - 03/24/2021 8:11 AM EDT Pending Prescriptions: Disp Refills Rosuvastatin Calcium 5 MG Oral Tablet (Cr*45 Tab 4 Sig: TAKE 1 TABLET BY MOUTH EVERY OTHER DAY * Telephone Encounter - Sosa Cotter LPN - 03/24/2021 8:10 AM EDT Pending Prescriptions: Disp Refills Rosuvastatin Calcium 5 MG Oral Tablet (Cr*45 Tab 0 Sig: TAKE 1 TABLET BY MOUTH EVERY OTHER DAY Last Office/Telemedicine Visit: 08/12/2020 Next Office Visit: 04/03/2021 Scheduled Provider(s): Isi Yu If no future appointments scheduled, and last appointment is greater than a year ago, please schedule patient for a follow-up appointment Last date the medication was ordered: 11 mo Pharmacy: [facility] [address] [address] [place] Is this request for a [...] Studies Cardiology Isi Yu [address] [place] [address] [phone] 04/04/2021 Office Visit Cardiology Denis Langston MD [address] [place] [address] [phone] 05/02/2021 Anticoagulation Pharmacy Pharmacist1, [facility] [address] [facility] [place] [address] 07/28/2021 Cardiac Studies Cardiology Isi [facility] [address] [facility] [place] [address] [phone] Health Maintenance Due Date Last Done Comments [...] present Automatic implantable cardiac defibrillator in situ CAD (coronary artery disease) Coronary atherosclerosis of unspecified type of vessel, [place] or graft documented in this encounter Advance Directives Documents on File Type Date Recorded Patient Geophysical Laboratory Chief Expl 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
--- OUTSIDE RECORDS SUMMARY | 2023-09-08 00:48 | External Medical Summary | Summary of Care ---
Author Name Unknown Organization [place] [address] Care Team Providers Care Mobile Lounge Driver Name Role Phone Hank Oshea MD Primary Care Provider [phone] Reason for Visit * Reason Comments Congestive Heart Failure Encounter Details Date Type Department Care Team Description 08/13/2020 Pharmacy Pharmacy[facility] [address] [facility] [address] [facility] [address] [facility] [address] Atrial fibrillation, unspecified type (HCC)* Allergies No Known Active Allergiesdocumented as of this encounter (statuses as of 08/13/2020) Medications Medication Sig Dispensed Refills Start Date End Date Status VITAMIN D 2000 UNITS PO TABS one tablet daily 0 Active nitroglycerin (NITROSTAT) 0.4 MG SUBLIndications:Rascon ry artery disease involving [place] coronary artery of [place] heart without angina pectoris,Myocardial infarction involving other [...] Tab by mouth daily. 3 07/30/2019 Active clopidogrel (PLAVIX) 75 MG TabletIndications:Perm anent atrial fibrillation (HCC) Take 1 Tab by mouth daily. 90 Tab 3 12/14/2019 Active furosemide (LASIX) 20 MG Tablet Take [...] 125 mcg TabletIndications:Salo nary artery disease involving [place] coronary artery of [place] heart without angina pectoris,Chronic atrial fibrillation (HCC) TAKE ONE TABLET BY MOUTH ON ., ., AND SAT. 45 Tab 3 03/14/2020 Active metoprolol succinate XL (TOPROL XL) 50 MG [id number]:Atrial fibrillation, unspecified type (HCC) Take 1 Tab by mouth 2 times a day. 182 Tab 3 03/22/2020 Active documented as of this encounter (statuses as of 08/13/2020) Active Problems Problem Noted Date AICD (automatic cardioverter/defibrillat or) present 02/10/2013 Heart failure, systolic, due to CAD 06/2013 Ischemic cardiomyopathy 01/06/2013 Atrial fibrillation 01/06/2013 CAD (coronary artery disease) 07/25/2012 [place] (myocardial infarction) 07/25/2012 documented as of this encounter (statuses as of 08/13/2020) Immunizations Name Administration Dates Next Due DTaP [...] as of this encounter Progress Notes * Viola Hernandez [facility] - 08/13/2020 8:[address] Langston's notes: patient is doing very well. Tolerating medication regimen and he recommends no changes at this time. At this time, [facility] will sign off as patient is no longer actively requiring medication changes, if he does in future would be happy to resume care with a new referral. Viola Hernandez, Pharm D Clinical Pharmacist 08/13/2020, 8:26 AM documented in this encounter Plan of Treatment Upcoming Encounters Date Type Specialty Care Team Description 09/03/2020 Anticoagulation Pharmacy Pharmacist1, [facility] [address] [facility] [address] 10/03/2020 Cardiac Studies [facility] [address] [facility] [address] [phone] 01/02/2021 Cardiac Studies Cardiology [facility] [address] [facility] [place] [address] [phone] 04/03/2021 Cardiac Studies Cardiology [facility] [address] [facility] [place] [address] [phone] 04/04/2021 Office Visit Cardiology [facility] MD [address] [facility] [place] [address] [phone] 07/28/2021 Cardiac Studies Cardiology [facility] [address] [facility] [place] [address] [phone] Health Maintenance Due Date Last Done Comments [...] Documents on File Type Date Recorded Patient Electronic Funds Transfer Coordinator Expl anation Advanced Directive Advanced Directive 01/26/2013 11:57 AM Advanced Directive Advanced Directive Advanced Directive Advanced Directive Advanced Directive Advanced Directive Advanced Directive Advanced Directive Advanced Directive Advanced Directive
--- OUTSIDE RECORDS SUMMARY | 2023-09-08 00:48 | External Medical Summary | Summary of Care ---
Author Name Unknown Organization [place] [address] Care Team Providers Care Sensitized Paper Tester Name Role Phone Hank Oshea MD Primary Care Provider Reason for Visit * Reason Comments Defibrillator Clinic Encounter Details Date Type Department Care Team Description 10/03/2020 Cardiac Studies Cardiology, [facility] [address] [facility] [place] [address] [place], Pacer Clinic [facility] 132 [facility] [place] [address] [phone] Ischemic cardiomyopathy*; Atrial fibrillation (HCC); AICD (automatic cardioverter/defibril lator) present Allergies No Known Active Allergiesdocumented as of this encounter (statuses as of 10/03/2020) Medications Medication Sig Dispensed Refills Start Date End Date Status VITAMIN D 2000 UNITS PO TABS one tablet daily 0 Active nitroglycerin (NITROSTAT) 0.4 MG SUBLIndications:Rascon ry artery disease involving [place] coronary artery of [place] heart without angina pectoris,Myocardial infarction involving other [...] 125 mcg TabletIndications:Salo nary artery disease involving [place] coronary artery of [place] heart without angina pectoris,Chronic atrial fibrillation (HCC) TAKE ONE TABLET BY MOUTH ON ., ., AND SAT. 45 Tab 3 03/14/2020 Active metoprolol succinate XL (TOPROL XL) 50 MG [id number]:Atrial fibrillation, unspecified type (HCC) Take 1 Tab by mouth 2 times a day. 182 Tab 3 03/22/2020 Active documented as of this encounter (statuses as of 10/03/2020) Active Problems Problem Noted Date AICD (automatic cardioverter/defibrillat or) present 02/10/2013 Heart failure, systolic, due to CAD 06/2013 Ischemic cardiomyopathy 01/06/2013 Atrial fibrillation 01/06/2013 CAD (coronary artery disease) 07/25/2012 NE (myocardial infarction) 07/25/2012 documented as of this encounter (statuses as of 10/03/2020) Immunizations Name Administration Dates Next Due DTaP [...] this encounter Progress Notes * Addi Vaughn, TECH - 10/02/2020 3:54 PM EST REMOTE MONITORING TRANSMISSION - DEFIBRILLATOR -- 10/03/2020 TYPE OF VISIT: This is a scheduled remote monitoring transmission. INDICATION: I25.5 Ischemic cardiomyopathy (primary encounter diagnosis) I48.91 Atrial fibrillation (HCC) Z95.810 AICD (automatic cardioverter/defibrillator) present IMPLANTING PHYSICIAN: Dre Gonzalez M.D. IMPLANT/DEVICE HISTORY: 02/02/2013 CURRENT SYSTEM: ICD: Medtronic Model: I930EVD SN: [id number] RV lead: Medtronic Model: 6935 SN: [id number] Abandoned leads: None ALERTS/ADVISORIES: None PATIENT EVALUATION: Presenting rhythm : Normal sinus rhythm with intact AV node function. DEVICE EVALUATION: R V Auto threshold: Not measured Sensin.8 mV Pacing impedance:627 ohms Percentage paced:96.1 % HVLI: 67 ohms Battery: 2.71 volts PANCHO: 2.63 volts Charge time: 11.4 seconds Short V-V intervals: 0 PVC singles counter : 18.0 per hour over a 96 day period. Thoracic impedance monitoring: N/A VT/VF episodes (since last evaluation): 0 Past VT/VF episodes: First shock: 02/02/2013 with implant procedure. Most recent shock: same Total ICD shocks/ATP therapy: Appropriate shocks: 1 Inappropriate shocks: 0 ATP therapy: 0 FINAL ICD PARAMETERS: Pacemaker mode/rate: VVI at 50 bpm RV Amplitude: 1.5 volts Pulse width: 0.5 msec VT detection: OFF FVT detection: ON Rate - 188-231 bpm (Burst ( 1 ), 25 joules, 35 joules x 4 ) VF detection: ON Rate - 188 bpm ( ATP during charging, 25 joules, 35 joules x 5 ) Mode switch:Not available IMPRESSION: Normal defibrillator function. Adequate battery reserve PLAN: The next remote monitoring transmission is scheduled for 3 months. Nurse: GHULAM Pino GEAR NICKER: Dr. Langston This patient was interrogated remotely [...] Encounters Date Type Specialty Care Team Description 10/15/2020 Anticoagulation Pharmacy Pharmacist1, [facility] [address] [place] [address] 01/02/2021 Cardiac Studies Cardiology [place], Pacer [facility] [address] [facility], [place] [address] [phone] 04/03/2021 Cardiac Studies Cardiology [facility] Pacer [facility] [address] [place] [address] [phone] 04/04/2021 Office Visit Cardiology Denis Langston MD [address] [place] [address] [phone] 07/28/2021 [facility] [address] [place] [address] [phone] Scheduled Orders Name Type Priority Associated Diagnoses Orde r Schedule DEFIBRILLATOR REMOTE INTERROGATION EVAL/INTERP,TO 90D Procedures Routine Ischemic cardiomyopathy Atrial fibrillation (HCC) AICD (automatic cardioverter/defibrilla tor) present Ordered: 10/02/2020 PACER/ICD REMOTE DATA CAPTURE/TECH REVIEW,90D Procedures Routine Ischemic cardiomyopathy Atrial fibrillation (HCC) AICD (automatic cardioverter/defibrilla tor) present Ordered: 10/02/2020 Health Maintenance Due Date Last Done Comments [...] forms of chronic ischemic heart disease Atrial fibrillation (HCC) Atrial fibrillation AICD (automatic cardioverter/defibrillator) present Automatic implantable cardiac defibrillator in situ documented in this encounter Advance Directives Documents on File Type Date Recorded Patient Farm Implement Engine Mechanic Expl anation Advanced Directive Advanced Directive 01/26/2013 11:57 AM Advanced Directive Advanced Directive Advanced Directive Advanced Directive Advanced Directive Advanced Directive Advanced Directive Advanced Directive Advanced Directive Advanced Directive Advanced Directive Advanced Directive
--- OUTSIDE RECORDS SUMMARY | 2023-09-08 00:48 | External Medical Summary | Summary of Care ---
Author Name Unknown Organization [place] [address] Care Team Providers Care Management Architect Name Role Phone Hank Oshea MD Primary Care Provider [phone] Reason for Visit * Reason Comments Dosage Adjustment In Person (Anticoag Cl inic) Encounter Details Date Type Department Care Team Description 11/29/2020 Anticoagulation Pharmacy, [facility] [address] [facility] [place] [address] Pharmacist1, [facility] [address] [facility] [place] [id number] Atrial fibrillation, unspecified type (HCC)*; Anticoagulation management encounter; intermission coordinator 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 therapy; Myocardial infarction, unspecified DE type, unspecified artery (HCC) Allergies No Known Active Allergiesdocumented as of this encounter (statuses as of 11/29/2020) Medications Medication Sig Dispensed Refills Start Date End Date Status VITAMIN D 2000 UNITS PO TABS one tablet daily 0 Active nitroglycerin (NITROSTAT) 0.4 MG SUBLIndications:Rascon ry artery disease involving [place] coronary artery of [place] heart without angina pectoris,Myocardial infarction involving other [...] 125 mcg TabletIndications:Salo nary artery disease involving [place] coronary artery of [place] heart without angina pectoris,Chronic atrial fibrillation (HCC) TAKE ONE TABLET BY MOUTH ON ., ., AND SAT. 45 Tab 3 03/14/2020 Active metoprolol succinate XL (TOPROL XL) 50 MG [id number]:Atrial fibrillation, unspecified type (HCC) Take 1 Tab by mouth 2 times a day. 182 Tab 3 03/22/2020 Active documented as of this encounter (statuses as of 11/29/2020) Active Problems Problem Noted Date AICD (automatic cardioverter/defibrillat or) present 02/10/2013 Heart failure, systolic, due to CAD 06/2013 Ischemic cardiomyopathy 01/06/2013 Atrial fibrillation 01/06/2013 CAD (coronary artery disease) 07/25/2012 DE (myocardial infarction) 07/25/2012 documented as of this encounter (statuses as of 11/29/2020) Immunizations Name Administration Dates Next Due DTaP [...] Progress Notes * Luiza Nguyen RPh - 11/29/2020 11:41 AM EST Medication Therapy Disease Management - Anticoagulation Patient: Lucian Larson : 1935 Current Warfarin Dose As of 11/29/2020 Warfarin maintenance plan: 5 mg (5 mg x 1) every day Patient-Reported Symptoms: Patient Findings Positives: Change in diet/appetite (possibly less greens) Negatives: Signs/symptoms of thrombosis, Signs/symptoms of bleeding, Change in health, Change in alcohol use, Change in activity, Upcoming invasive procedure, Missed doses, Extra doses, Change in medications, Bruising INR Result As of 11/29/2020 INR goal: 2.0-3.0 INR used for dosin.4 (11/29/2020) Warfarin Plan As of 11/29/2020 Full warfarin instructions: 11/29: Hold; Otherwise 5 mg every day Next INR check: 12/27/2020 Additional Dosing Information: Repeat PT/INR in 4 week(s) Weekly dose: not changed - hold warfarin today Haven Vallejo PharmD Candidate 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 Clinical Pharmacist 11/29/2020, 11:41 AM documented in this encounter Plan of Treatment Upcoming Encounters Date Type Specialty Care Team Description 12/27/2020 Anticoagulation Pharmacy Pharmacist1, [facility] [address] [facility] [place] [address] 01/02/2021 Cardiac Studies Cardiology [facility] [address] [place] [address] [phone] 04/03/2021 Cardiac Studies Cardiology [facility] [address] [place], [place] [address] [phone] 04/04/2021 Office Visit Cardiology Denis Langston MD [address] [place] [address] [phone] 07/28/2021 Cardiac Studies Cardiology [facility] [address] [place] [address] [phone] Health Maintenance Due Date Last Done Comments [...] Name Priority Date/Time Associated Diagnosis Comments INR FINGERSTICK STAT 11/29/2020 11:39 AM EST Anticoagulation management encounter intermission coordinator 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 therapy documented in this encounter Results * INR FINGERSTICK (11/29/2020 11:39 AM EST) FINGERSTICK INR 3.4 INR [facility] THERAPEUTIC RANGE Comment: Therapeutic ranges for non-operative patients: Prophylaxsis/treatmen t of DVT: (Range:2.0-3.0) Treatment of pulmonary embolism:(Range:2.0-3 .0) Prevention of systemic embolism from: -tissue heart valves -acute myocardial infarction -valvular heart disease -atrial fibrillation (Range: 2.0-3.0) Mechanical prosthetic valves: (Range: 2.5-3.5) [facility] Specimen Performing Organization Address City/State/[facility] Co de Phone Number [facility] [address] [place] [address] documented in this encounter Visit Diagnoses Diagnosis Atrial fibrillation, unspecified type (HCC)- Primary Anticoagulation management encounter Encounter for therapeutic drug monitoring intermission coordinator 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 therapy Myocardial infarction, unspecified DE type, unspecified artery (HCC) documented in this encounter Advance Directives Documents on File Type Date Recorded Patient Psychiatric Orderly Expl anation Advanced Directive Advanced Directive 01/26/2013 11:57 AM Advanced Directive Advanced Directive Advanced Directive Advanced Directive Advanced Directive Advanced Directive Advanced Directive Advanced Directive Advanced Directive Advanced Directive Advanced Directive Advanced Directive Advanced Directive Advanced Directive Advanced Directive
--- OUTSIDE RECORDS SUMMARY | 2023-09-08 00:48 | External Medical Summary ---
Author Name Unknown Address Unknown Organization R:IT USE ONLY!!! Laboratory Report Ordering Provider Test Date Status FIDELINA HOBSON [facility] 09/03/2020 11:37:00 Final Observation Date Value Abnormality Reference (Units ) Status INR in Capillary blood by Coagulation assay 09/03/2020 11:51 2.3 (INR) Final Days in therapeutic INR range/Days INR result determined [Ratio] 09/03/2020 11:51 Final Therapeutic ranges for non-o perative patients:
Prophylaxsis/treatment of DVT: (Range:2.0-3.0)
Treatment of pulmonary embolism:(Range:2.0-3.0)
Prevention of systemic embolism from:
-tissue heart valves
-acute myocardial infarction
-valvular heart disease
-atrial fibrillation
(Range: 2.0-3.0)
Mechanical prosthetic valves: (Range: 2.5-3.5) Performing Location IT USE ONLY!!!
--- OUTSIDE RECORDS SUMMARY | 2023-09-08 00:48 | External Medical Summary | Summary of Care ---
Author Name Unknown Organization [place] [address] Care Team Providers Care Mower Mechanic Name Role Phone Hank Oshea MD Primary Care Provider [phone] Reason for Visit * Reason Comments Dosage Adjustment In Person (Anticoag Cl inic) Encounter Details Date Type Department Care Team Description 10/15/2020 Anticoagulation Pharmacy, [facility] [address] [place] [address] Pharmacist1, [facility] 200 [facility] [place] [id number] Atrial fibrillation, unspecified type (HCC)*; Anticoagulation management encounter; terminal superintendent 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 therapy Allergies No Known Active Allergiesdocumented as of this encounter (statuses as of 10/15/2020) Medications Medication Sig Dispensed Refills Start Date End Date Status VITAMIN D 2000 UNITS PO TABS one tablet daily 0 Active nitroglycerin (NITROSTAT) 0.4 MG SUBLIndications:Rascon ry artery disease involving [place] coronary artery of [place] heart without angina pectoris,Myocardial infarction involving other [...] 125 mcg TabletIndications:Salo nary artery disease involving [place] coronary artery of [place] heart without angina pectoris,Chronic atrial fibrillation (HCC) TAKE ONE TABLET BY MOUTH ON ., ., AND SAT. 45 Tab 3 03/14/2020 Active metoprolol succinate XL (TOPROL XL) 50 MG [id number]:Atrial fibrillation, unspecified type (HCC) Take 1 Tab by mouth 2 times a day. 182 Tab 3 03/22/2020 Active documented as of this encounter (statuses as of 10/15/2020) Active Problems Problem Noted Date AICD (automatic cardioverter/defibrillat or) present 02/10/2013 Heart failure, systolic, due to CAD 06/2013 Ischemic cardiomyopathy 01/06/2013 Atrial fibrillation 01/06/2013 CAD (coronary artery disease) 07/25/2012 NC (myocardial infarction) 07/25/2012 documented as of this encounter (statuses as of 10/15/2020) Immunizations Name Administration Dates Next Due DTaP [...] as of this encounter Progress Notes * Juany Richards [facility] - 10/15/2020 12:02 PM EST Medication Therapy Disease Management - Anticoagulation Patient: Lucian Larson : 1935 Current Warfarin Dose As of 10/15/2020 Warfarin maintenance plan: 5 mg (5 mg x 1) every day Patient-Reported Symptoms: Patient Findings Negatives: Signs/symptoms of thrombosis, Signs/symptoms of bleeding, Change in health, Change in alcohol use, Change in activity, Upcoming invasive procedure, Missed doses, Extra doses, Change in medications, Change in diet/appetite, Bruising INR Result As of 10/15/2020 INR goal: 2.0-3.0 INR used for dosin.8 (10/15/2020) Warfarin Plan As of 10/15/2020 Full warfarin instructions: 5 mg every day Next INR check: 11/26/2020 Additional Dosing Information: Repeat PT/INR in 6 week(s) Weekly dose: not changed Juany Richards [facility] Clinical Pharmacist 10/15/2020, 12:02 PM documented in this encounter Plan of Treatment Upcoming Encounters Date Type Specialty Care Team Description 11/26/2020 Anticoagulation Pharmacy Pharmacist1, [facility] [address] [place] [address] 01/02/2021 Cardiac Studies Cardiology [facility] 132 [facility] [place] [address] [phone] 04/03/2021 Cardiac Studies Cardiology [facility], [facility] [address] [place] [address] [phone] 04/04/2021 Office Visit Cardiology Denis Langston MD [address] [place] [address] [phone] 07/28/2021 Cardiac Studies Cardiology [facility] [address] [place] [address] [phone] Health Maintenance Due Date Last Done Comments [...] Date/Time Associated Diagnosis Comments INR FINGERSTICK STAT 10/15/2020 11:31 AM EST Anticoagulation management encounter terminal superintendent 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 therapy documented in this encounter Results * INR FINGERSTICK (10/15/2020 11:31 AM EST) FINGERSTICK INR 2.8 INR [facility] THERAPEUTIC RANGE Comment: Therapeutic ranges for non-operative patients: Prophylaxsis/treatmen t of DVT: (Range:2.0-3.0) Treatment of pulmonary embolism:(Range:2.0-3 .0) Prevention of systemic embolism from: -tissue heart valves -acute myocardial infarction -valvular heart disease -atrial fibrillation (Range: 2.0-3.0) Mechanical prosthetic valves: (Range: 2.5-3.5) [facility] Specimen [facility] [address] [facility] [address] documented in this encounter Visit Diagnoses Diagnosis Atrial fibrillation, unspecified type (HCC)- Primary Anticoagulation management encounter Encounter for therapeutic drug monitoring terminal superintendent 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 therapy documented in this encounter Advance Directives Documents on File Type Date Recorded Patient Aerosol Line Operator Expl anation Advanced Directive Advanced Directive 01/26/2013 11:57 AM Advanced Directive Advanced Directive Advanced Directive Advanced Directive Advanced Directive Advanced Directive Advanced Directive Advanced Directive Advanced Directive Advanced Directive Advanced Directive Advanced Directive Advanced Directive
--- OUTSIDE RECORDS SUMMARY | 2023-09-08 00:48 | External Medical Summary ---
Author Name Unknown Address Unknown Organization R:IT USE ONLY!!! Laboratory Report Ordering Provider Test Date Status FIDELINA HOBSON [facility] 11/29/2020 11:39:00 Final Observation Date Value Abnormality Reference (Units ) Status INR in Capillary blood by Coagulation assay 11/29/2020 12:05 3.4 (INR) Final Days in therapeutic INR range/Days INR result determined [Ratio] 11/29/2020 12:05 Final Therapeutic ranges for non-o perative patients:
Prophylaxsis/treatment of DVT: (Range:2.0-3.0)
Treatment of pulmonary embolism:(Range:2.0-3.0)
Prevention of systemic embolism from:
-tissue heart valves
-acute myocardial infarction
-valvular heart disease
-atrial fibrillation
(Range: 2.0-3.0)
Mechanical prosthetic valves: (Range: 2.5-3.5) Performing Location IT USE ONLY!!!
--- OUTSIDE RECORDS SUMMARY | 2023-09-08 00:48 | External Medical Summary | Summary of Care ---
Author Name Unknown Organization [facility] [place] [address] Care Team Providers Care Pet Technologist Name Role Phone Hank Oshea MD Primary Care Provider [phone] Reason for Visit * Reason Comments Follow Up 4 month folklow up Encounter Details Date Type Department Care Team Description 08/12/2020 Office Visit Cardiology, [facility] 132 [facility] [place] [address] Denis Langston MD 132 [facility] [place] [address] [phone] Ischemic cardiomyopathy*; Heart failure, systolic, due to CAD (HCC) Allergies No Known Active Allergiesdocumented as of this encounter (statuses as of 08/12/2020) Medications Medication Sig Dispensed Refills Start Date End Date Status VITAMIN D 2000 UNITS PO TABS one tablet daily 0 Active nitroglycerin (NITROSTAT) 0.4 MG SUBLIndications:Rascon ry artery disease involving [place] coronary artery of yurok heart without angina pectoris,Myocardial infarction involving other [...] 125 mcg TabletIndications:Salo nary artery disease involving yurok coronary artery of yurok heart without angina pectoris,Chronic atrial fibrillation (HCC) TAKE ONE TABLET BY MOUTH ON ., ., AND SAT. 45 Tab 3 03/14/2020 Active metoprolol succinate XL (TOPROL XL) 50 MG [id number]:Atrial fibrillation, unspecified type (HCC) Take 1 Tab by mouth 2 times a day. 182 Tab 3 03/22/2020 Active documented as of this encounter (statuses as of 08/12/2020) Active Problems Problem Noted Date AICD (automatic cardioverter/defibrillat or) present 02/10/2013 Heart failure, systolic, due to CAD 06/2013 Ischemic cardiomyopathy 01/06/2013 Atrial fibrillation 01/06/2013 CAD (coronary artery disease) 07/25/2012 PA (myocardial infarction) 07/25/2012 documented as of this encounter (statuses as of 08/12/2020) Immunizations Name Administration Dates Next Due DTaP [...] Sign Reading Time Taken Comments Blood Pressure 124/86 08/12/2020 4:00 PM EDT Pulse 56 08/12/2020 4:00 PM EDT regul ar Temperature 36.8 C (98.2 F) 08/12/2020 4:00 PM ED T Respiratory Rate 16 08/12/2020 4:00 PM EDT Oxygen Saturation - - Inhaled Oxygen Concentration - - Weight 82.6 kg (182 lb) 08/12/2020 4:00 PM EDT Height - - Body Mass Index 26.11 03/21/2018 12:57 PM EDT documented in this encounter Progress Notes * Denis Langston MD - 08/12/2020 4:14 PM EDT 08/12/2020 Cardiology Follow Up Referring Provider: PCP: HANK OSHEA [address] [place] [address] [phone] Chief Complaint: Follow-up ischemic cardiomyopathy SUBJECTIVE: Lucian Reynolds Neo Dylan is a 84 year old year old male with ongoing cardiac issues 1. 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 2. Ischemic cardiomyopathy secondary to #1. 3. Prior implantable cardiac defibrillator in January 2013. 4. Acute decompensation in the setting of elevated heart rate, receiving stenting to the recannulated left anterior descending and attempted stent into the proximal right coronary artery in May 2014. 5. Chronic atrial fibrillation. 6. Hyperlipidemia, on therapy. Patient presents today doing well. Denies any signs or symptoms of congestive heart failure. Weightis been stable. No worsening edema. Tolerating medications no significant dizziness or lightheadedness. No chest pains tachy palpitations syncope or near syncope. Appetite is good. No difficulties taking medications on current regimen. No bleeding issues melena hematochezia A Complete Review of 10 Systems is as stated above or negative. Patient Active Problem List Diagnosis Code CAD (coronary artery disease) I25.10 PA (myocardial infarction) ([facility]) I21.9 Heart failure, systolic, due to CAD ([facility]) I50.20, I25.10 Ischemic cardiomyopathy I25.5 Atrial fibrillation ([facility]) I48.91 AICD (automatic cardioverter/defibrillator) present Z95.810 Review of patient's allergies indicates: No Known Allergies Current Outpatient Medications Medication Sig Dispense Refill metoprolol succinate XL (TOPROL XL) 50 MG TB24 Take 1 Tab by mouth 2 times a day. 182 Tab 3 digoxin (LANOXIN) 125 mcg Tablet TAKE ONE TABLET BY MOUTH ON ., ., AND SAT. 45 Tab 3 rosuvastatin (CRESTOR) 5 MG Tablet TAKE 1 TABLET BY MOUTH EVERY OTHER DAY 45 Tab 5 warfarin sodium (COUMADIN) 5 MG Tablet TAKE [...] each am and pm) 180 Tab 3 furosemide (LASIX) 20 MG Tablet Take 1 Tab by mouth daily. 90 Tab 3 clopidogrel (PLAVIX) 75 MG Tablet Take 1 Tab by mouth daily. 90 Tab 3 Cetirizine HCl (ZYRTEC ALLERGY) 10 MG Capsule Take 10 mg by mouth daily. levothyroxine (LEVOXYL) 50 MCG Tablet Take 1 Tab by mouth daily. 3 Coenzyme Q10 (COQ10) 200 MG CAPS Take 1 Cap by mouth daily. VITAMIN D 2000 UNITS PO TABS one tablet daily nitroglycerin (NITROSTAT) 0.[address] 1 Tab under the tongue as needed for Pain, Chest. 25 Tab 11 OBJECTIVE/PHYSICAL EXAMINATION: BP 124/86 (BP Site: Left Arm, BP Position: Sitting, BP Cuff Size: Regular) | Pulse 56 Comment: regular | Temp 36.8 C (98.2 F) (Tympanic) | Resp 16 | Wt 82.6 kg (182 lb) | BMI 26.11 kg/m | BSA 2.02 m General: no acute distress and stated age Head: normocephalic, no masses, lesions, tenderness or abnormalities Eyes: conjunctiva are pink and non-injected, sclera clear Throat: clear Nares: without discharge Neck: supple, no adenopathy, no bruits, normal jugular venous pulse, no hepatojugular reflux, no carotid bruits Chest: normal shape and normal respiratory effort Lungs: clear to auscultation and percussion Cardiac Exam: - regular rate & rhythm, no murmur, gallop or rub - normal S-1, normal S-2 Abdomen: abdomen soft, non-tender, no abnormal masses, no hepatosplenomegaly, no abdominal bruit, no femoral bruit Musculoskeletal: no gait disturbance, no joint inflammation, no deforming arthritis Extremities: no edema, no cyanosis, pulses intact 2+/4 Neuro: grossly normal exam Data: Pacemaker defibrillator interrogation June 27, 2009 No high rate episodes of significance No device discharge Battery voltage 2.79 volts/PANCHO 2.63 volts Lipid Panel Results: LIPID PANEL Boris Dt/Tm Resulted Value Status HOURS FASTING (hours) 01/11/18 11:41A 01/11/18 0 F TRIGLYCERIDES (mg/dL) 01/11/18 11:41A 01/11/18 79 F CHOLESTEROL (mg/dL) 01/11/18 11:41A 01/11/18 133 F HDL (mg/dL) 01/11/18 11:41A 01/11/18 49 F CHOL/HDL RATIO ( ) 01/11/18 11:41A 01/11/18 2.7 F LDL (CALCULATED) (mg/dL) 01/11/18 11:41A 01/11/18 68 F ASSESSMENT: 84 year old year old male Ischemic cardiomyopathy with stable compensated chronic congestive heart failure on optimal medicalregimen including Entresto, metoprolol succinate, rosuvastatin and clopidogrel. Patient appropriately anticoagulated with warfarin for atrial fibrillation PLAN: Continue all current therapies Patient report any change in symptoms with CHF instructions well reinforce DISPOSITION: Return 6 months time or symptoms dictate otherwise Denis Langston MD Cardiology, [address] [place] [address] documented in this encounter Nursing Notes * Rafiq Miramontes RN - 08/12/2020 4:10 PM EDT Examination Room: room 15 Name: Lucian Larson Jr. Date of : (1935). Reason for Visit: 4 month return Interim Hospitalization(s): denies Problems/Concerns: denies Chest Pain/SOB: denies My [facility] is a way you can talk to your provider online through e-mail. Would you like to sign up? I can activate it for you? NO INTERNET ACCESS documented in this encounter Plan of Treatment Upcoming Encounters Date Type Specialty Care Team Description 08/13/2020 Pharmacy Pharmacy [facility] 132 [facility] [place] [address] 09/03/2020 Anticoagulation Pharmacy Pharmacist, [facility] 200 [facility] [place] [address] 10/03/2020 Cardiac Studies Cardiology [facility] [address] [place] [address] [phone] 01/02/2021 Cardiac Studies [facility]iology [facility] [place] [address] [phone] 04/03/2021 Cardiac Studies Cardiology [facility] [address] [facility] [place] [address] [phone] 04/04/2021 Office Visit Cardiology Denis Langston MD [address] [place] [address] [phone] 07/28/2021 Cardiac Studies Cardiology [facility] [address] [place] [address] [phone] Health Maintenance Due Date Last Done Comments [...] Documents on File Type Date Recorded Patient Shop Manager Expl anation Advanced Directive Advanced Directive 01/26/2013 11:57 AM Advanced Directive Advanced Directive Advanced Directive Advanced Directive Advanced Directive Advanced Directive Advanced Directive Advanced Directive Advanced Directive Advanced Directive"
--- OUTSIDE RECORDS SUMMARY | 2023-09-08 00:48 | External Medical Summary | Summary of Care ---
Author Name Unknown Organization [place] [address] Care Team Providers Care Crew Person Name Role Phone Hank Oshea MD Primary Care Provider [phone] Reason for Visit * Reason Comments Dosage Adjustment In Person (Anticoag Cl inic) Encounter Details Date Type Department Care Team Description 09/03/2020 Anticoagulation Pharmacy, [facility] 200 [place] [address] Pharmacist1, [facility] 200 [facility] [place] [id number] Myocardial infarction, unspecified [place] type, unspecified artery (HCC)*; Anticoagulation management encounter; terminal operations supervisor 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 therapy; Atrial fibrillation, unspecified type (HCC) Allergies No Known Active Allergiesdocumented as of this encounter (statuses as of 09/17/2020) Medications Medication Sig Dispensed Refills Start Date End Date Status VITAMIN D 2000 UNITS PO TABS one tablet daily 0 Active nitroglycerin (NITROSTAT) 0.4 MG SUBLIndications:Rascon ry artery disease involving [place] coronary artery of [place] heart without angina pectoris,Myocardial infarction involving [...] 125 mcg TabletIndications:Salo nary artery disease involving [place] coronary artery of [place] heart without angina pectoris,Chronic atrial fibrillation (HCC) TAKE ONE TABLET BY MOUTH ON ., ., AND SAT. 45 Tab 3 03/14/2020 Active metoprolol succinate XL (TOPROL XL) 50 MG [id number]:Atrial fibrillation, unspecified type (HCC) Take 1 Tab by mouth 2 times a day. 182 Tab 3 03/22/2020 Active documented as of this encounter (statuses as of 09/17/2020) Active Problems Problem Noted Date AICD (automatic cardioverter/defibrillat or) present 02/10/2013 Heart failure, systolic, due to CAD 06/2013 Ischemic cardiomyopathy 01/06/2013 Atrial fibrillation 01/06/2013 CAD (coronary artery disease) 07/25/2012 [place] (myocardial infarction) 07/25/2012 documented as of this encounter (statuses as of 09/17/2020) Immunizations Name Administration Dates Next Due DTaP [...] Progress Notes * Anibal Mcfarland RPh - 09/03/2020 11:34 AM EST Medication Therapy Disease Management - Anticoagulation Lucian Larson Jr. 1935 Patient Findings Negatives: Signs/symptoms of thrombosis, Signs/symptoms of bleeding, Change in health, Change in alcohol use, Change in activity, Upcoming invasive procedure, Missed doses, Extra doses, Change in medications, Change in diet/appetite, Bruising INR Result As of 09/03/2020 INR goal: 2.0-3.0 INR used for dosin.3 (09/03/2020) Warfarin Plan As of 09/03/2020 Full warfarin instructions: 5 mg every day No change documented: Anibal Raymundo RPh Next INR check: 10/15/2020 Repeat PT/INR in 6 week(s) Weekly dose: not changed Marcy Gauthier Student Pharmacist [facility] 09/03/2020, 11:43 AM Anibal Caceres RPh, JUVEP, CDE Clinical Pharmacist [facility] 09/03/2020 11:42 AM documented in this encounter Miscellaneous Notes * Addendum Note - Luiza Weir RPh - 09/17/2020 10:25 AM EST Addended by: LUIZA WEIR on: 09/17/2020 10:25 AM Modules accepted: Level of Service documented in this encounter Plan of Treatment Upcoming Encounters Date Type Specialty Care Team Description 10/03/2020 [facility] [address] [place] [address] [phone] 10/15/2020 Anticoagulation Pharmacy Pharmacist1, [facility] 200 [place] [address] 01/02/2021 Cardiac Studies Cardiology [facility] 132 [place] [address] [phone] 04/03/2021 Cardiac Studies Cardiology [facility] 132 [place] [address] [phone] 04/04/2021 Office Visit Cardiology Denis Langston MD 132 [place] [address] [phone] 07/28/2021 Cardiac Studies Cardiology [facility] 132 [place] [address] [phone] Health Maintenance Due Date Last Done Comments Zoster Vaccines (1 of 2) 1984 Pneumococcal Vaccine: 65+ Years (1 of 1 - PPSV23) 1999 *DEPRESSION SCREENING,ANNUAL FOR PTS 12 AND OVER 12/02/2014 Influenza Vaccine (FLU shot) (#1) 2020 07/29/2017, 08/08/2012 *URINE PROTEIN ONCE FOR HTN-DIPSTICK ACCEPTABLE 09/04/2020 DIABETES SCREEN EVERY 3 YRS-AGE 45 AND ABOVE 07/23/2023 07/23/2020, 04/15/2020, 03/14/2020, Additional history exists DTaP,Tdap,and Td Vaccines (2 - Tdap) 07/29/2027 07/29/2017 MENINGOCOCCAL (MENACTRA/MENVEO) Aged Out No longer eligible based on patient's age to complete this topic documented as of this encounter Implants Not on filedocumented as of this encounter Visit Diagnoses Diagnosis Myocardial infarction, unspecified [place] type, unspecified artery (HCC)- Primary Anticoagulation management encounter Encounter for therapeutic drug monitoring group home 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 therapy Atrial fibrillation, unspecified type (HCC) documented in this encounter Advance Directives Documents on File Type Date Recorded Patient Administrative Receptionist Expl anation Advanced Directive Advanced Directive 01/26/2013 11:57 AM Advanced Directive Advanced Directive Advanced Directive Advanced Directive Advanced Directive Advanced Directive Advanced Directive Advanced Directive Advanced Directive Advanced Directive Advanced Directive
--- OUTSIDE RECORDS SUMMARY | 2023-09-08 00:48 | External Medical Summary | Summary of Care ---
Author Name Unknown Organization [place] [address] Care Team Providers Care Healthcare Business Analyst Name Role Phone Hank Oshea MD Primary Care Provider [phone] Reason for Visit * Reason Comments Dosage Adjustment Via Phone (anticoag Cl inic) Encounter Details Date Type Department Care Team Description 07/24/2020 Anticoagulation Pharmacy, [facility] 200 [facility] [place] [address] Pharmacist2, [facility] 200 [facility] [place] [id number] Myocardial infarction, unspecified [place] type, unspecified artery (HCC)*; Atrial fibrillation, unspecified type (HCC) Allergies No Known Active Allergiesdocumented as of this encounter (statuses as of 07/23/2020) Medications Medication Sig Dispensed Refills Start Date End Date Status VITAMIN D 2000 UNITS PO TABS one tablet daily 0 Active nitroglycerin (NITROSTAT) 0.4 MG SUBLIndications:Coronary artery disease involving eastern [place] coronary artery of [place] heart without angina pectoris,Myocardial infarction involving other [...] 3 07/30/2019 Active clopidogrel (PLAVIX) 75 MG TabletIndications:Perman ent atrial fibrillation Take 1 Tab by mouth daily. 90 Tab 3 12/14/2019 Active furosemide (LASIX) 20 MG Tablet Take 1 Tab by mouth daily. 90 Tab 3 01/02/2020 Active sacubitril-valsartan 24-26 mg per tab (ENTRESTO) 24-26 MG TABSIndications:Heart failure, systolic, due to CAD (HCC),Ischemic cardiomyopathy Take 1 Tab by mouth 2 times a day. 180 Tab 3 02/05/2020 Active warfarin sodium (COUMADIN) 5 MG TabletIndications:Atrial fibrillation (HCC) TAKE 10MG (2 TABLETS) BY MOUTH ON WEDNESDAY AND 5MG (1 TABLET) ALL OTHER DAYS. 110 Tab 3 02/13/2020 Active rosuvastatin (CRESTOR) 5 MG TabletIndications:Heart failure, systolic, due to CAD (HCC),Ischemic cardiomyopathy,AICD (automatic cardioverter/defibrillat or) present,CAD (coronary artery disease) TAKE 1 TABLET BY MOUTH EVERY OTHER DAY 45 Tab 5 02/13/2020 Active digoxin (LANOXIN) 125 mcg TabletIndications:Rascon ry artery disease involving eastern [place] coronary artery of eastern [place] heart without angina pectoris,Chronic atrial fibrillation TAKE ONE TABLET BY MOUTH ON ., ., AND SAT. 45 Tab 3 03/14/2020 Active metoprolol succinate XL (TOPROL XL) 50 MG [id number]:Atrial fibrillation, unspecified type (HCC) Take 1 Tab by mouth 2 times a day. 182 Tab 3 03/22/2020 Active documented as of this encounter (statuses as of 07/23/2020) Active Problems Problem Noted Date AICD (automatic cardioverter/defibrillat or) present 02/10/2013 Heart failure, systolic, due to CAD 06/2013 Ischemic cardiomyopathy 01/06/2013 Atrial fibrillation 01/06/2013 CAD (coronary artery disease) 07/25/2012 [place] (myocardial infarction) 07/25/2012 documented as of this encounter (statuses as of 07/23/2020) Immunizations Name Administration Dates Next Due DTaP [...] file Not on file Not on file COVID-19 Exposure Response Date Recorded In the last month, have you been in contact with someone who was confirmed or suspected to have Coronavirus / COVID-19? No / Unsure 06/27/2020 12:59 PM EDT documented as of this encounter Progress Notes * Anibal Mcfarland RPh - 07/23/2020 3:56 PM EDT Medication Therapy Disease Management - Anticoagulation Lucian Larson Jr. 1935 Patient Findings Negatives: Signs/symptoms of thrombosis, Signs/symptoms of bleeding, Change in health, Change in alcohol use, Change in activity, Upcoming invasive procedure, Missed doses, Extra doses, Change in medications, Change in diet/appetite, Bruising INR Result As of 07/24/2020 INR goal: 2.0-3.0 INR used for dosin.66 (07/23/2020) Warfarin Plan As of 07/24/2020 Full warfarin instructions: 5 mg every day No change documented: Anibal Raymundo RPh Next INR check: 09/03/2020 Repeat PT/INR in 6 week(s) Weekly dose: not changed Anibal Caceres RPh, CACP, CDE Clinical Pharmacist [facility] 07/23/2020 4:01 PM documented in this encounter Plan of Treatment Upcoming Encounters Date Type Specialty Care Team Description 08/12/2020 Office Visit Cardiology Denis Langston MD 132 [place] [address] [phone] 08/13/2020 Pharmacy Pharmacy [facility] [address] [place] [address] 09/03/2020 Anticoagulation Pharmacy Pharmacist, [facility] 200 [facility] [address] 10/03/2020 Cardiac Studies Cardiology [facility] 132 [place] [address] [phone] 01/02/[address] [facility] [address] [place] [address] [phone] 04/03/2021 [facility] [address] [facility] [place] [address] [phone] 07/28/[address] [facility] [address] [facility] [place] [address] [phone] Health Maintenance Due Date Last Done Comments [...] unspecified [place] type, unspecified artery (HCC)- Primary Atrial fibrillation, unspecified type (HCC) documented in this encounter Advance Directives Documents on File Type Date Recorded Patient Personal Care Service Provider Expl anation Advanced Directive Advanced Directive 01/26/2013 11:57 AM Advanced Directive Advanced Directive Advanced Directive Advanced Directive Advanced Directive Advanced Directive Advanced Directive Advanced Directive
--- OUTSIDE RECORDS SUMMARY | 2023-09-08 00:48 | External Medical Summary | Summary of Care ---
Author Name Unknown Organization [place] [address] Care Team Providers Care Child Care Development Specialist Name Role Phone Hank Oshea MD Primary Care Provider [phone] Reason for Visit * Reason Comments Dosage Adjustment In Person (Anticoag Cl inic) Encounter Details Date Type Department Care Team Description 09/03/2020 Anticoagulation Pharmacy, [facility] 200 [place] [address] Pharmacist1, [facility] 200 [facility] [place] [id number] Myocardial infarction, unspecified [place] type, unspecified artery (HCC)*; Anticoagulation management encounter; watermelon inspector 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 therapy; Atrial fibrillation, unspecified type (HCC) Allergies No Known Active Allergiesdocumented as of this encounter (statuses as of 09/03/2020) Medications Medication Sig Dispensed Refills Start Date End Date Status VITAMIN D 2000 UNITS PO TABS one tablet daily 0 Active nitroglycerin (NITROSTAT) 0.4 MG SUBLIndications:Rascon ry artery disease involving [place] coronary artery of [place]osh[place] heart without angina pectoris,Myocardial infarction involving other [...] 125 mcg TabletIndications:Salo nary artery disease involving [place]osh[place]ai[place] coronary artery of [place]osh[place]-paiute heart without angina pectoris,Chronic atrial fibrillation (HCC) TAKE ONE TABLET BY MOUTH ON ., ., AND SAT. 45 Tab 3 03/14/2020 Active metoprolol succinate XL (TOPROL XL) 50 MG [id number]:Atrial fibrillation, unspecified type (HCC) Take 1 Tab by mouth 2 times a day. 182 Tab 3 03/22/2020 Active documented as of this encounter (statuses as of 09/03/2020) Active Problems Problem Noted Date AICD (automatic cardioverter/defibrillat or) present 02/10/2013 Heart failure, systolic, due to CAD 06/2013 Ischemic cardiomyopathy 01/06/2013 Atrial fibrillation 01/06/2013 CAD (coronary artery disease) 07/25/2012 [place] (myocardial infarction) 07/25/2012 documented as of this encounter (statuses as of 09/03/2020) Immunizations Name Administration Dates Next Due DTaP [...] Clinic 09/03/2020, 11:43 AM Anibal Caceres RPh, CACOlivier, CDE Clinical Pharmacist [facility] 09/03/2020 11:42 AM documented in this encounter Plan of Treatment Upcoming Encounters Date Type Specialty Care Team Description 10/03/2020 Cardiac Studies Cardiology [place], [facility] 132 [facility] [place] [address] [phone] 10/15/2020 Anticoagulation Pharmacy Pharmacist1, [facility] 200 [facility] [place] [address] 01/02/2021 Cardiac Studies Cardiology [place], [facility] 132 [facility] [place] [address] [phone] 04/03/2021 Cardiac Studies Cardiology [facility] [address] [place] [address] [phone] 04/04/2021 Office Visit Cardiology Denis Langston MD [address] [place], [place] [address] [phone] 07/28/2021 Cardiac Studies Cardiology [facility] [address] [place] [address] [phone] Health Maintenance Due Date Last Done Comments [...] encounter Visit Diagnoses Diagnosis Myocardial infarction, unspecified [place] type, unspecified artery (HCC)- Primary Anticoagulation management encounter Encounter for therapeutic drug monitoring watermelon inspector 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 therapy Atrial fibrillation, unspecified type (HCC) documented in this encounter Advance Directives Documents on File Type Date Recorded Patient Supervisor Wound Expl anation Advanced Directive Advanced Directive 01/26/2013 11:57 AM Advanced Directive Advanced Directive Advanced Directive Advanced Directive Advanced Directive Advanced Directive Advanced Directive Advanced Directive Advanced Directive Advanced Directive Advanced Directive
--- OUTSIDE RECORDS SUMMARY | 2023-09-08 00:48 | External Medical Summary ---
Author Name Unknown Address Unknown Organization R:IT USE ONLY!!! Laboratory Report Ordering Provider Test Date Status FIDELINA HOBSON [facility] 10/15/2020 11:31:00 Final Observation Date Value Abnormality Reference (Units ) Status INR in Capillary blood by Coagulation assay 10/15/2020 11:36 2.8 (INR) Final Days in therapeutic INR range/Days INR result determined [Ratio] 10/15/2020 11:36 Final Therapeutic ranges for non-o perative patients:
Prophylaxsis/treatment of DVT: (Range:2.0-3.0)
Treatment of pulmonary embolism:(Range:2.0-3.0)
Prevention of systemic embolism from:
-tissue heart valves
-acute myocardial infarction
-valvular heart disease
-atrial fibrillation
(Range: 2.0-3.0)
Mechanical prosthetic valves: (Range: 2.5-3.5) Performing Location IT USE ONLY!!!
--- OUTSIDE RECORDS SUMMARY | 2023-09-08 00:48 | External Medical Summary | Summary of Care ---
Author Name Unknown Organization [place] [address] Care Team Providers Care Glass Cutting Machine Feeder Name Role Phone Hank Oshea MD Primary Care Provider [phone] Encounter Details Date Type Department Care Team Description 09/03/2020 Orders Only Pharmacy, [place] Braulio Nicole [address] [place] [address] Pharmacist1, [facility] [address] [facility] [place] [address] Allergies No Known Active Allergiesdocumented as of this encounter (statuses as of 09/03/2020) Medications Medication Sig Dispensed Refills Start Date End Date Status VITAMIN D 2000 UNITS PO TABS one tablet daily 0 Active nitroglycerin (NITROSTAT) 0.4 MG SUBLIndications:Rascon ry artery disease involving [place] coronary artery of [place] heart without angina pectoris,Myocardial infarction involving other [...] 125 mcg TabletIndications:Salo nary artery disease involving [place] coronary artery of [place] heart without angina pectoris,Chronic atrial fibrillation (HCC) TAKE ONE TABLET BY MOUTH ON ., ., AND SAT. 45 Tab 3 03/14/2020 Active metoprolol succinate XL (TOPROL XL) 50 MG [id number]:Atrial fibrillation, unspecified type (HCC) Take 1 Tab [...] Care Team Description 10/03/2020 Cardiac Studies Cardiology [facility] 132 [facility] [place] [address] [phone] 10/15/2020 Anticoagulation Pharmacy Pharmacist1, [facility] 200 [facility] [place] [address] 01/02/2021 [facility] [address] [phone] 04/03/2021 Cardiac Studies Cardiology [facility] 132 [facility] [place] [address] [phone] 04/04/2021 Office Visit Cardiology Denis [facility]ston [facility] [address] [phone] 07/28/2021 Cardiac Studies Cardiology [facility] [place] [address] [phone] Health Maintenance Due Date Last Done Comments [...] Priority Date/Time Associated Diagnosis Comments INR FINGERSTICK Routine 09/03/2020 11:37 AM EST documented in this encounter Results * INR FINGERSTICK (09/03/2020 11:37 AM EST) FINGERSTICK INR 2.3 INR [facility] THERAPEUTIC RANGE Comment: Therapeutic ranges for non-operative patients: Prophylaxsis/treatmen t of DVT: (Range:2.0-3.0) Treatment of pulmonary embolism:(Range:2.0-3 .0) Prevention of systemic embolism from: -tissue heart valves -acute myocardial infarction -valvular heart disease -atrial fibrillation (Range: 2.0-3.0) Mechanical prosthetic valves: (Range: 2.5-3.5) [facility] Specimen [facility] [address] [facility] [place] [address] documented in this encounter Advance Directives Documents on File Type Date Recorded Patient Supervising Nurse Expl anation Advanced Directive Advanced Directive 01/26/2013 11:57 AM Advanced Directive Advanced Directive Advanced Directive Advanced Directive Advanced Directive Advanced Directive Advanced Directive Advanced Directive Advanced Directive Advanced Directive Advanced Directive
--- OUTSIDE RECORDS SUMMARY | 2023-09-08 00:49 | External Medical Summary | Summary of Care ---
Author Name Unknown Organization [place] [address] Care Team Providers Care Daily Release And Dupe Printer Name Role Phone Hank Oshea MD Primary Care Provider [phone] Encounter Details Date Type Department Care Team Description 03/14/2020 CardioDiagnostic Study Unspecified Department EKG Report Allergies No Known Allergiesdocumented as of this encounter (statuses as of 04/01/2020) Medications Medication Sig Dispensed Refills Start Date End Date Status VITAMIN D 2000 UNITS PO TABS one tablet daily 0 Active nitroglycerin (NITROSTAT) 0.4 MG SUBLIndications:Coronary artery disease involving venetie ira coronary artery [...] 125 mcg TabletIndications:Rascon ry artery disease involving venetie ira coronary artery of ven[place] ir[place] heart without angina pectoris,Chronic atrial fibrillation TAKE ONE TABLET BY MOUTH ON ., ., AND SAT. 45 Tab 3 03/14/2020 Active documented as of this encounter (statuses as of 04/01/2020) Active Problems Problem Noted Date AICD (automatic cardioverter/defibrillat or) present 02/10/2013 Heart failure, systolic, due to CAD 06/2013 Ischemic cardiomyopathy 01/06/2013 Atrial fibrillation 01/06/2013 CAD (coronary artery disease) 07/25/2012 NV (myocardial infarction) 07/25/2012 documented as of this encounter (statuses as of 04/01/2020) Immunizations Name Administration Dates Next Due DTaP [...] file Not on file Not on file Travel History Travel Start Travel End No recent travel history rafael ilable. COVID-19 Exposure Response Date Recorded In the last month, have you been in contact with someone who was confirmed or suspected to have Coronavirus / COVID-19? No / Unsure 03/14/2020 1:30 PM EDT documented as of this encounter Procedure Notes * Sheldon Orozco, - 03/14/2020 2:20 PM EDT Associated Order(s): EKG REPORT REASON FOR STUDY: CONCLUSIONS: Sinus tachycardia with 1st degree AV block Left axis deviation Right bundle branch block Septal infarct , age undetermined T wave abnormality, consider inferolateral ischemia unchanged Ventricular Rate: 103 Atrial Rate: 103 MD Interval: 252 QRS Duration: 156 QT/QTc: 370/484 ms P-R-T [place]: -22 : -40 : 192 degrees documented in this encounter Plan of Treatment Upcoming Encounters Date Type Specialty Care Team Description 04/18/2020 Anticoagulation Pharmacy , [facility] [address] [place] [address] [phone] 04/24/2020 Pharmacy Pharmacy [facility] [address] [place] [address] 06/24/2020 Cardiac Studies Cardiology [facility] [address] [place] [address] [phone] 08/12/2020 Office Visit Cardiology Denis Langston MD [address] [facility] [place] [address] [phone] Health Maintenance Due Date Last Done Comments Zoster Vaccines (1 of 2) 1984 Pneumococcal Vaccine: 65+ Years (1 of 2 - PCV13) 1999 *DEPRESSION SCREENING,ANNUAL FOR PTS 12 AND OVER 12/02/2014 Influenza Vaccine (FLU shot) (Season Ended) 2020 07/29/2017, 08/08/2012 DIABETES SCREEN EVERY 3 YRS-AGE 45 AND ABOVE 03/14/2023 03/14/2020, 09/12/2019, 05/24/2019, Additional history exists DTaP,Tdap,and Td Vaccines (2 - Tdap) 07/29/2027 07/29/2017 MENINGOCOCCAL (MENACTRA/MENVEO) Aged Out No longer eligible based on patient's age to complete this topic documented as of this encounter Implants Not on filedocumented as of this encounter Procedures Procedure Name Priority Date/Time Associated Diagnosis Comments EKG REPORT 03/14/2020 2:20 PM EDT documented in this encounter Results * EKG REPORT (03/14/2020 2:20 PM EDT) Specimen Procedure Note Sheldon Orozco, DO - 03/14/2020 2:20 PM EDT REASON FOR STUDY: CONCLUSIONS: Sinus tachycardia with 1st degree AV block Left axis deviation Right bundle branch block Septal infarct , age undetermined T wave abnormality, consider inferolateral ischemia unchanged Ventricular Rate: 103 Atrial Rate: 103 MD Interval: 252 QRS Duration: 156 QT/QTc: 370/484 ms P-R-T [place]: -22 : -40 : 192 degrees documented in this encounter Advance Directives Documents on File Type Date Recorded Patient Wheel Of Fortune Dealer Expl anation Advanced Directive Advanced Directive 01/26/2013 11:57 AM Advanced Directive Advanced Directive Advanced Directive Advanced Directive Advanced Directive Advanced Directive
--- OUTSIDE RECORDS SUMMARY | 2023-09-08 00:49 | External Medical Summary | Summary of Care ---
Author Name Unknown Organization [place] [address] Care Team Providers Care Heater Operator Helper Name Role Phone Hank Oshea MD Primary Care Provider [phone] Reason for Visit * Reason Comments medication change Encounter Details Date Type Department Care Team Description 03/20/2020 Refill Cardiology, [facility] [place] [address] Zulma Lay PA-C [address] [facility] [place] [address] [phone] Atrial fibrillation, unspecified type (HCC)*; Heart failure, systolic, due to CAD (HCC); Ischemic cardiomyopathy Allergies No Known Allergiesdocumented as of this encounter (statuses as of 03/22/2020) Medications Medication Sig Dispensed Refills Start Date End Date Status VITAMIN D 2000 UNITS PO TABS one tablet daily 0 Active nitroglycerin (NITROSTAT) 0.4 MG SUBLIndications:Coron richardson artery disease involving [place] coronary artery of [...] 3 07/30/2019 Active clopidogrel (PLAVIX) 75 MG TabletIndications:Per manent atrial fibrillation Take 1 Tab by mouth [...] 02/05/2020 Active warfarin sodium (COUMADIN) 5 MG TabletIndications:Atr ial fibrillation (HCC) TAKE 10MG (2 TABLETS) BY MOUTH ON WEDNESDAY AND 5MG (1 TABLET) ALL OTHER DAYS. 110 Tab 3 02/13/2020 Active rosuvastatin (CRESTOR) 5 MG TabletIndications:Hea rt failure, systolic, due to CAD (HCC),Ischemic cardiomyopathy,AICD (automatic cardioverter/defibril lator) present,CAD (coronary artery disease) TAKE 1 TABLET BY MOUTH EVERY OTHER DAY 45 Tab 5 02/13/2020 Active digoxin (LANOXIN) 125 mcg TabletIndications:Cor onary artery disease involving [place]osh[place] coronary artery of [place]osh[place] heart without angina pectoris,Chronic atrial fibrillation TAKE ONE TABLET BY MOUTH ON ., ., AND SAT. 45 Tab 3 03/14/2020 Active metoprolol succinate XL (TOPROL XL) 50 MG [id number]:Atria l fibrillation, unspecified type (HCC) Take 1 Tab by mouth 2 times a day. 182 Tab 3 03/22/2020 Active carvedilol (COREG) 12.5 MG TabletIndications:Cor onary artery disease involving [place]osh[place] coronary artery of [place]osh[place] heart without angina pectoris,Chronic atrial fibrillation Take 1 Tab by mouth 2 times a day. with food 180 Tab 3 03/14/2020 03/22/2020 Discontinued (Medication/ Dose Changed) documented as of this encounter (statuses as of 03/22/2020) Active Problems Problem Noted Date AICD (automatic cardioverter/defibrillat or) present 02/10/2013 Heart failure, systolic, due to CAD 06/2013 Ischemic cardiomyopathy 01/06/2013 Atrial fibrillation 01/06/2013 CAD (coronary artery disease) 07/25/2012 NV (myocardial infarction) 07/25/2012 documented as of this encounter (statuses as of 03/22/2020) Immunizations Name Administration Dates Next Due DTaP [...] PM EDT documented as of this encounter Miscellaneous Notes * Telephone Encounter - Zulma Lay PA-C - 03/22/2020 9:56 AM EDT Signed Prescriptions: Disp Refills metoprolol succinate XL (TOPROL XL) 50 MG *182 Tab3 Sig: Take 1 Tab by mouth 2 times a day. Authorizing Provider: ZULMA LAY * Telephone Encounter - Luis Rodgers RN - 03/22/2020 9:38 AM EDT Spoke with Loren. Explained all instructions below. They are agreeable. Sent to [facility]. They requested 90 day supply. Explained to take Coreg until Metoprolol available. Verbalized understanding of all instructions. Luis Rodgers RN * Telephone Encounter - Luis Rodgers RN - 03/20/2020 1:56 PM EDT From Zulma Lay PAC: Replace Carvedilol (Coreg) 12.5 mg twice a day with metoprolol succinate 50 mg twice a day. Do NOT let any time lapse when changing from carvedilol to metoprolol. Zulma Lay PA-C Department of Cardiology Called pt on phone to discuss above med changes. No answer, left VM. Provided the [phone] ([phone]) phone number for call back. -Nicolas Rodgers RN documented in this encounter Plan of Treatment Upcoming Encounters Date Type Specialty Care Team Description 04/18/2020 Anticoagulation Pharmacy [address] [place] [address] [phone] 04/24/2020 Pharmacy Pharmacy [facility] [place] [address] 06/24/2020 Cardiac Studies Cardiology [facility] [address] [facility] [place] [address] [phone] 08/12/2020 Office Visit Cardiology Denis [facility]ston MD [facility] [place] [address] [phone] Health Maintenance Due Date Last Done Comments [...] Diagnosis Atrial fibrillation, unspecified type (HCC)- Primary Heart failure, systolic, due to CAD (HCC) Unspecified systolic heart failure Ischemic cardiomyopathy Other specified forms of chronic ischemic heart disease documented in this encounter Advance Directives Documents on File Type Date Recorded Patient Jewelry Manager Expl anation Advanced Directive Advanced Directive 01/26/2013 11:57 AM Advanced Directive Advanced Directive Advanced Directive Advanced Directive Advanced Directive Advanced Directive
--- OUTSIDE RECORDS SUMMARY | 2023-09-08 00:49 | External Medical Summary | Summary of Care ---
Author Name Unknown Organization [place] [address] Care Team Providers Care Education Assistant Name Role Phone Hank Oshea MD Primary Care Provider [phone] Reason for Visit * Reason Comments medication change Encounter Details Date Type Department Care Team Description 03/20/2020 Refill Cardiology, [facility] [place] [address] Zulma Lay PA-C [address] [facility] [place] [address] [phone] Atrial fibrillation, unspecified type (HCC)*; Heart failure, systolic, due to CAD (HCC); Ischemic cardiomyopathy Allergies No Known Allergiesdocumented as of this encounter (statuses as of 03/22/2020) Medications Medication Sig Dispensed Refills Start Date End Date Status VITAMIN D 2000 UNITS PO TABS one tablet daily 0 Active nitroglycerin (NITROSTAT) 0.4 MG SUBLIndications:Coron richardson artery disease involving torres martinez coronary artery of torres martinez heart without angina pectoris,Myocardial infarction involving other [...] 125 mcg TabletIndications:Cor onary artery disease involving torres martinez coronary artery of torres martinez heart without angina pectoris,Chronic atrial fibrillation TAKE ONE TABLET BY MOUTH ON ., ., AND SAT. 45 Tab 3 03/14/2020 Active metoprolol succinate XL (TOPROL XL) 50 MG [id number]:Atria l fibrillation, unspecified type (HCC) Take 1 Tab by mouth 2 times a day. 182 Tab 3 03/22/2020 Active carvedilol (COREG) 12.5 MG TabletIndications:Cor onary artery disease involving torres martinez coronary artery of torres martinez heart without angina pectoris,Chronic atrial fibrillation Take [...] instructions below. They are agreeable. Sent to [facility]. They requested 90 day supply. Explained to [...] changes. No answer, left VM. Provided the [phone] ([phone]) phone number for call back. -Nicolas Rodgers RN documented in this encounter Plan of Treatment Upcoming Encounters Date Type Specialty Care Team Description 04/18/2020 Anticoagulation Pharmacy [address] [place] [address] [phone] 04/24/2020 Pharmacy Pharmacy [facility] [address] [facility] [place] [address] 06/24/2020 Cardiac Studies Cardiology Isi [facility] [address] [facility] [place] [address] [phone] 08/12/2020 Office Visit Cardiology Denis [facility] [place] [address] [phone] Health Maintenance Due Date Last Done Comments [...] Documents on File Type Date Recorded Patient Naturalist Expl anation Advanced Directive Advanced Directive 01/26/2013 11:57 AM Advanced Directive Advanced Directive Advanced Directive Advanced Directive Advanced Directive Advanced Directive
--- OUTSIDE RECORDS SUMMARY | 2023-09-08 00:49 | External Medical Summary | Summary of Care ---
Author Name Unknown Organization [facility] [address] Care Team Providers Care Affiliate Marketing Coordinator Name Role Phone Hank Oshea MD Primary Care Provider [phone] Reason for Visit * Reason Comments Dosage Adjustment Via Phone (anticoag Cl inic) Congestive Heart Failure Encounter Details Date Type Department Care Team Description 06/25/2020 Pharmacy Pharmacy, [facility] [address] [facility] 132 [place] [address] Heart failure, systolic, due to CAD (HCC)* Allergies No Known Allergiesdocumented as of this encounter (statuses as of 06/25/2020) Medications Medication Sig Dispensed Refills Start Date End Date Status VITAMIN D 2000 UNITS PO TABS one tablet daily 0 Active nitroglycerin (NITROSTAT) 0.4 MG SUBLIndications:Coronary artery disease involving robinson coronary artery of robinson heart without angina pectoris,Myocardial infarction involving other [...] 125 mcg TabletIndications:Rascon ry artery disease involving robinson coronary artery of robinson heart without angina pectoris,Chronic atrial fibrillation TAKE ONE TABLET BY MOUTH ON ., ., AND SAT. 45 Tab 3 03/14/2020 Active metoprolol succinate XL (TOPROL XL) 50 MG [id number]:Atrial fibrillation, unspecified type (HCC) Take 1 Tab by mouth 2 times a day. 182 Tab 3 03/22/2020 Active documented as of this encounter (statuses as of 06/25/2020) Active Problems Problem Noted Date AICD (automatic cardioverter/defibrillat or) present 02/10/2013 Heart failure, systolic, due to CAD 06/2013 Ischemic cardiomyopathy 01/06/2013 Atrial fibrillation 01/06/2013 CAD (coronary artery disease) 07/25/2012 NC (myocardial infarction) 07/25/2012 documented as of this encounter (statuses as of 06/25/2020) Immunizations Name Administration Dates Next Due DTaP [...] have Coronavirus / COVID-19? No / Unsure 06/11/2020 11:26 AM EDT documented as of this encounter Progress Notes * Viola Hernandez RPh - 06/25/2020 8:17 AM EDT No updates at this time. Follow up after Dr. Langston appointment on 08/12. Viola Hernandez, Pharm D Clinical Pharmacist 06/25/2020, 8:18 AM documented in this encounter Plan of Treatment Upcoming Encounters Date Type Specialty Care Team Description 06/27/2020 Cardiac Studies Cardiology [facility] 132 [facility] [place] [address] [phone] 07/23/2020 Anticoagulation Pharmacy [address] [place] [address] [address] [place] [address] 08/12/2020 Office Visit Cardiology [facility] [place] [address] [phone] 08/13/[address] [facility] 132 [place] [address] Health Maintenance Due Date Last Done Comments Zoster Vaccines (1 of 2) 1984 Pneumococcal Vaccine: 65+ Years (1 of 2 - PCV13) 1999 *DEPRESSION SCREENING,ANNUAL FOR PTS 12 AND OVER 12/02/2014 Influenza Vaccine (FLU shot) (#1) 2020 07/29/2017, 08/08/2012 DIABETES SCREEN EVERY 3 YRS-AGE 45 AND ABOVE 04/15/2023 04/15/2020, 03/14/2020, 09/12/2019, Additional history exists DTaP,Tdap,and Td Vaccines (2 [...] Documents on File Type Date Recorded Patient Manufacturing Group Leader Expl anation Advanced Directive Advanced Directive 01/26/2013 11:57 AM Advanced Directive Advanced Directive Advanced Directive Advanced Directive Advanced Directive Advanced Directive
--- OUTSIDE RECORDS SUMMARY | 2023-09-08 00:49 | External Medical Summary ---
Author Name Unknown Address [address] [place] [address] [address] Phone Organization K09:[facility] [address] [place] [address] Laboratory Report Ordering Provider Test Date Status DOV JORGE 07/23/2020 11:28:00 Final Observation Date Value Abnormality Reference (Units ) Status BUN 07/23/2020 12:41 25 Above high normal 6-20 (mg/dL) Final Creatinine 07/23/2020 12:41 1.4 Above high normal 0.6- 1.2 (mg/dL) Final E Glom Filt Rate 07/23/2020 12:41 45.1 Below low normal >60 Final If patient is [place], multiply estimated GFR by 1.159. Sodium 07/23/2020 12:41 142 135-146 (mmol /L) Final Potassium 07/23/2020 12:41 4.4 3.5-5.1 (mmol /L) Final Cl 07/23/2020 12:41 103 98-107 (mmol/ L) Final CO2 07/23/2020 12:41 28 22-32 (mmol/L ) Final Anion gap 07/23/2020 12:41 11 7-15 (mmol/L) Final Glucose 07/23/2020 12:41 40 Below lower panic limits 70-120 (mg/dL) Final Albumin 07/23/2020 12:41 4.7 3.8-5.0 (g/dL ) Final AST (Aspartate aminotransferase) 07/23/2020 12:41 27 10-50 (U/L) Final Alk Phos 07/23/2020 12:41 87 0-153 (U/L) F inal Bilirubin, Total 07/23/2020 12:41 0.8 0-1.2 (mg/dL) Final Calcium 07/23/2020 12:41 10.2 8.4-10.2 (mg/ dL) Final Protein 07/23/2020 12:41 7.4 6.0-8.3 (g/dL ) Final ALT (Alanine aminotransferase) 07/23/2020 12:41 20 10-50 (U/L) Final Performing Location [facility] [address] [place] [address]
--- OUTSIDE RECORDS SUMMARY | 2023-09-08 00:49 | External Medical Summary ---
Author Name Unknown Address [address] [place] [address] Phone Organization K09:[facility] 200 [facility] [place] [address] Laboratory Report Ordering Provider Test Date Status DOV JORGE 07/23/2020 11:28:00 Final Observation Date Value Abnormality Reference (Units ) Status WBC, Total 07/23/2020 11:39 8.42 4.00-10.80 ( K/uL) Final RBC 07/23/2020 11:39 4.64 4.50-5.25 (M/ uL) Final Hemoglobin 07/23/2020 11:39 15.1 14.0-16.8 (g /dL) Final HCT 07/23/2020 11:39 44.9 40.0-48.4 (%) Final MCV 07/23/2020 11:39 96.8 82.0-99.5 (fL ) Final MCH 07/23/2020 11:39 32.5 27.0-34.0 (pg ) Final MCHC 07/23/2020 11:39 33.6 32.0-36.0 (g/ dL) Final RDW 07/23/2020 11:39 14.3 11.5-15.5 (%) Final Platelets 07/23/2020 11:39 155 140-400 (K/uL ) Final MPV 07/23/2020 11:39 10.4 6.6-11.1 (fL) Final Segs 07/23/2020 11:39 48.5 40-75 (%) Fin al Lymphs % 07/23/2020 11:39 37.6 18-42 (%) Fin al Monos 07/23/2020 11:39 11.0 1-11 (%) Fin al Eosinophils 07/23/2020 11:39 2.5 0-6 (%) F inal Basos 07/23/2020 11:39 0.4 0-2 (%) Fin al Neutrophils [#/volume] in Blood 07/23/2020 11:39 4.08 1.8-7.7 (K/uL) Final Lymphs, absolute 07/23/2020 11:39 3.17 1.0-4. 8 (K/uL) Final Monos, Abs 07/23/2020 11:39 0.93 0.0-1.1 (K/u L) Final Eos, Abs 07/23/2020 11:39 0.21 0.0-0.7 (K/uL ) Final Basos, Abs 07/23/2020 11:39 0.03 0.0-0.2 (K/u L) Final Performing Location [facility] [address] [place] [address]
--- OUTSIDE RECORDS SUMMARY | 2023-09-08 00:49 | External Medical Summary ---
Author Name Unknown Address [address] [place] [address] [address] Phone Organization [id number]:[facility] State Brooke martins [address] [place] [address] Laboratory Report Ordering Provider Test Date Status KIMMY TURNER 07/23/2020 11:25:00 Final Observation Date Value Abnormality Reference (Units ) Status PT 07/23/2020 12:06 28.7 Above high normal 11.5- 14.6 (seconds) Final INR 07/23/2020 12:06 2.66 Above high normal 0.84- 1.14 Final Performing Location [facility] [address] [place] [address]
--- OUTSIDE RECORDS SUMMARY | 2023-09-08 00:49 | External Medical Summary | Summary of Care ---
Author Name Unknown Organization [place] [address] Care Team Providers Care Skip Pit Worker Name Role Phone Hank Oshea MD Primary Care Provider [phone] Reason for Visit * Reason Comments Follow Up Encounter Details Date Type Department Care Team Description 03/14/2020 Office Visit Cardiology, [facility] [address] [place] [address] Wilmar Lay PA-C [address] [facility] [place] [address] [phone] Coronary artery disease involving [place] coronary artery of [place] heart without angina pectoris*; Chronic atrial fibrillation; Heart failure, systolic, due to CAD (HCC); Ischemic cardiomyopathy; Acquired hypothyroidism; Anemia, unspecified type; Encounter for monitoring diuretic therapy; Bradycardia Allergies No Known Allergiesdocumented as of this encounter (statuses as of 03/18/2020) Medications Medication Sig Dispensed Refills Start Date End Date Status VITAMIN D 2000 UNITS PO TABS one tablet daily 0 Active nitroglycerin (NITROSTAT) 0.4 MG SUBLIndications:Coron richardson artery disease involving [place] coronary artery [...] OTHER DAY 45 Tab 5 02/13/2020 Active carvedilol (COREG) 12.5 MG TabletIndications:Cor onary artery disease involving [place] coronary artery of [place] heart without angina pectoris,Chronic atrial fibrillation Take 1 Tab by mouth 2 times a day. with food 180 Tab 3 03/14/2020 Active digoxin (LANOXIN) 125 mcg TabletIndications:Cor onary artery disease involving [place] coronary artery of [place] heart without angina pectoris,Chronic atrial fibrillation TAKE ONE TABLET BY MOUTH ON TUES., THURS., AND SAT. 45 Tab 3 03/14/2020 Active carvedilol (COREG) 12.5 MG TabletIndications:Cor onary artery disease involving [place] coronary artery of [place] heart without angina pectoris,Chronic atrial fibrillation Take 1 Tab by mouth 2 times a day. with food 180 Tab 3 05/24/2019 03/14/2020 Discontinued (Refill) digoxin (LANOXIN) 125 mcg TabletIndications:Cor onary artery disease involving [place] coronary artery of [place] heart without angina pectoris,Chronic atrial fibrillation TAKE ONE TABLET BY MOUTH ON TUES., THURS., AND SAT. 45 Tab 3 05/24/2019 03/14/2020 Discontinued (Refill) documented as of this encounter (statuses as of 03/18/2020) Active Problems Problem Noted Date AICD (automatic cardioverter/defibrillat or) present 02/10/2013 Heart failure, systolic, due to CAD 06/2013 Ischemic cardiomyopathy 01/06/2013 Atrial fibrillation 01/06/2013 CAD (coronary artery disease) 07/25/2012 DE (myocardial infarction) 07/25/2012 documented as of this encounter (statuses as of 03/18/2020) Immunizations Name Administration Dates Next Due DTaP - Dipth/Tet/Acell Pertussis 07/29/2017 Seasonal Influenza, Trivalen t, with Preserve, 3yr & Above, Split 07/29/2017,08/08/2012 documented as of this encounter Social History Tobacco Use Types Packs/Day Years Used Date Former Smoker Cigarettes, Pipe 1 45 Quit: 03/27/1995 Smokeless Tobacco: Never Used Tobacco Cessation:Counseling Given: Yes Alcohol Use Drinks/Week oz/Week Comments Yes occasionally [...] PM EDT documented as of this encounter Last Filed Vital Signs Vital Sign Reading Time Taken Comments Blood Pressure 108/64 03/14/2020 2:02 PM EDT Pulse 58 03/14/2020 2:02 PM EDT Temperature - - Respiratory Rate 16 03/14/2020 2:02 PM EDT Oxygen Saturation - - Inhaled Oxygen Concentration - - Weight 80 kg (176 lb 6.4 oz) 03/14/2020 2:02 PM EDT Height - - Body Mass Index 25.31 03/21/2018 12:57 PM EDT documented in this encounter Progress Notes * Densi Langston MD - 03/18/2020 11:44 AM EDT Yes that would be good * Wilmar Lay PA-C - 03/14/2020 2:29 PM EDT SUBJECTIVE: Lucian Rodolfo Larson Jr. Is a 84 year old male here today for cardiology evaluation. Coat Maker is Dr. Denis Langston. Last seen in this office by the undersigned on August 31, 2019. Ramipril transition to Entresto. + Intermittently tired, off balance, and weak. No syncope. No chest pain. No sublingual nitroglycerin use. No palpitations. No ICD discharges. Stable shortness of breath withactivity. No resting or nocturnal dyspnea, orthopnea, or PND. Chronic distal left lower extremity peripheral edema. Ambulation is via cane. No melena or hematochezia. History: 1. Atherosclerotic coronary disease with prior anterior [...] atrial fibrillation. 6. Hyperlipidemia, on therapy. Patient Active Problem List Diagnosis Code CAD (coronary artery disease) I25.10 DE (myocardial infarction) ([facility]) I21.9 Heart failure, systolic, due to CAD ([facility]) I50.20, I25.10 Ischemic cardiomyopathy I25.5 Atrial fibrillation ([facility]) I48.91 AICD (automatic cardioverter/defibrillator) present Z95.810 Review of patient's allergies indicates: No Known Allergies Current Outpatient Medications Medication Sig Dispense Refill carvedilol (COREG) 12.5 MG Tablet Take 1 Tab by mouth 2 times a day. with food 180 Tab 3 digoxin (LANOXIN) 125 mcg Tablet [...] 2 times a day. 180 Tab 3 furosemide (LASIX) 20 MG [...] CAPS Take 1 Cap by mouth daily. nitroglycerin (NITROSTAT) 0.[address] 1 Tab under the tongue as needed for Pain, Chest. 25 Tab 11 VITAMIN D 2000 UNITS PO TABS one tablet daily OBJECTIVE/PHYSICAL EXAMINATION: BP 108/64 | Pulse 58 | Resp 16 | Wt 176 lbs 6.4 oz (80.015kg) | BMI 25.31 kg/m | BSA 1.99 m Blood pressure my evaluation was 86/50, equal in both arms. Heart rate was around 100 bpm. General:A&Ox3. NAD. HEENT: Normocephalic. Atraumatic. PER. Conjunctiva pink, sclera clear. No carotid bruits. No JVD. No HJR. Heart: Regular around 100 bpm. No murmur. No rub. No gallop. PMI is nondisplaced. Lungs: Clear to auscultation. Abdomen: +BS. Soft. Nontender. No masses or organomegaly. Extremities: Mild edema. No clubbing. No cyanosis. Limited neurological [...] pulmonary hypertension now present. Device interrogation on December 18, 2019 revealed normal ICD function. Medtronic Model - Eric IIVR [id number] (SN: [id number]). RV Lead: Medtronic, Model - 6935 (SN: [id number]). Implant Date: 02-02-2013. Battery voltage: 2.91 V. PANCHO 2.63 V. Backup pacemaker set VVI, 40 bpm. RV paced 21.4%. No ventricular arrhythmias. PVC singles: 82.4 per hour. EKG today demonstrates atrial fibrillation with a ventricular rate of 103 bpm ASSESSMENT: 1. Symptomatic hypotension 2. 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 His backup pacer is set at 40 bpm with patient RV pacing 21.4% of the time. 3. Severe ischemic cardiomyopathy with LVEF 20% 4. Systolic congestive heart failure with stable mild decompensated. 5. Chronic atrial fibrillation. 6. Chronic coumadin anticoagulation 7. Stable atherosclerotic coronary disease 8. Dyslipidemia. Options discussed with patient and . Plan as outlined below. RECOMMENDATIONS/PLAN: 1. Nonfasting laboratory work today 2. Device interrogation and reprogramming today by the [employer] abrasives sales representative, increasing the lower rate on the backup pacemaker from 40 bpm to 50 bpm. 3. Decrease Entresto to 1/2 tablet twice per day due to the symptomatic hypotension 4. ? titration of digoxin versus switching Carvedilol to metoprolol 5. ? Future device upgrade to a biventricular pacemaker Instructions written. Benefits, use, and risks of the above explained to patient and . Prescriptions for carvedilol digoxin refilled and printed as requested. Cardiology follow-up with the above,with Dr. Langston in 3 months, or as needed. ER with emergencies. Wilmar Lay PA-C Department of Cardiology Device interrogation today demonstrates appropriate function with adequate battery reserve. Batteryvoltage is 2.83 V with an HAZARDOUS MATERIAL TECHNICIAN of 2.63 V. Backup pacemaker set VVI with lower rate of 40 bpm. Rhythmis now ventricular paced 10.7% of the time. Since March 03, 2019 the device is detected 9 episodes of n onsustained ventricular tachycardia and 2 episodes of FVT however upon further review these episodes of FVT are actually atrial fibrillation with a rapid ventricular response. No shocks were delivered however antitachycardia pacing was deployed. PVC singles: 254.4 per hour over the last 12 months. Programming changes made today included increasing the lower rate from 40 bpm to 50 bpm. Addendum: With the patient's low blood pressure and intermittently increased heart rates I think hemay be best served by switching carvedilol to metoprolol succinate. Will change Coreg 12.5 mg twicea day to Toprol XL 50 mg twice a day. Wilmar Lay PA-C Department of Cardiology documented in this encounter Nursing Notes * Marquis Pratt LPN - 03/14/2020 2:04 PM EDT Examination Room: 7 Name: Lucian Larson Jr. Date of : (1935) Reason for Visit: f/u Interim Hospitalization(s): denies Problems/Concerns: denies cardiac concerns at this time Chest Pain/SOB: denies My [facility] is a way you can talk to your provider online through e-mail. Would you like to sign up? I can activate it for you? DECLINES documented in this encounter Miscellaneous Notes * Result DavinNoteliezer - Wilmar Lay PA-C - 03/18/2020 10:33 AM EDT Recheck TSH and PRP in 1 month documented in this encounter Plan of Treatment Upcoming Encounters Date Type Specialty Care Team Description 03/20/2020 Pharmacy Pharmacy [facility] [address] [place] [address] 04/18/2020 Anticoagulation Pharmacy [facility] [address] [facility] [address] [phone] 06/24/2020 Cardiac Studies Cardiology Isi Yu [facility] [address] [place] [address] [phone] 08/12/2020 Office Visit Cardiology Denis Langston MD [address] [place] [address] [phone] Scheduled Orders Name Type Priority Associated Diagnoses Orde r Schedule EKG EKG Routine Bradycardia Ordered: 03/14/2020 Health Maintenance Due Date Last Done Comments [...] Procedure Name Priority Date/Time Associated Diagnosis Comments BASIC METAB PANEL, BMP Routine 03/14/2020 3:18 PM EDT Heart failure, systolic, due to CAD (HCC) Encounter for monitoring diuretic therapy HGB Routine 03/14/2020 3:18 PM EDT Anemia, unspecified type HCT Routine 03/14/2020 3:18 PM EDT Anemia, unspecified type TSH Routine 03/14/2020 3:18 PM EDT Acquired hypothyroidism DIGOXIN-LEVEL Routine 03/14/2020 3:18 PM EDT Chronic atrial fibrillation documented in this encounter Results * TSH (03/14/2020 3:18 PM EDT) TSH 4.34(H) 0.27 - 4.2 uIU/mL [facility] Specimen Performing Organization Address City/State/Zipcod e Phone Number [facility] [address] [place] [address] * HCT (03/14/2020 3:18 PM EDT) HCT 40.7 40.0 - 48.4 % [facility] Specimen Performing Organization Address [facility] e Phone Number [facility] Room [address] [place] [address] * HGB (03/14/2020 3:18 PM EDT) HGB 14.0 14.0 - 16.8 g/dL [facility] Specimen Performing Organization Address [facility] e Phone Number [facility] [address] [place] [address] * DIGOXIN-LEVEL (03/14/2020 3:18 PM EDT) DIGOXIN <0.2(L) 0.5 - 2.0 ng/mL [facility] Specimen Performing Organization Address [facility] e Phone Number [facility] [address] [place] [address] * BASIC METAB PANEL, BMP (03/14/2020 3:18 PM EDT) BUN 26(H) 6 - 20 mg/dL [facility] CREATININE 1.5(H) 0.6 - 1.2 mg/dL [facility] E GLOM FILT RATE 41.8(L)Comment:If patient is , multiply estimated GFR by 1.159. >60 [facility] SODIUM 141 135 - 146 mmol/L [facility] POTASSIUM 4.9 3.5 - 5.1 mmol/L [facility] CHLORIDE 103 98 - 107 mmol/L [facility] CO2 27 22 - 32 mmol/L [facility] ANION GAP 11 7 - 15 mmol/L [facility] GLUCOSE 84 70 - 120 mg/dL [facility] CALCIUM 9.6 8.4 - 10.2 mg/dL [facility] Specimen Performing Organization Address [facility] e Phone Number [facility] [address] [place] [address] documented in this encounter Visit Diagnoses Diagnosis Coronary artery disease involving [place] coronary artery of [place] heart without angina pectoris- Primary Chronic atrial fibrillation Atrial fibrillation Heart failure, systolic, due to CAD (HCC) Unspecified systolic heart failure Ischemic cardiomyopathy Other specified forms of chronic ischemic heart disease Acquired hypothyroidism Unspecified hypothyroidism Anemia, unspecified type Encounter for monitoring diuretic therapy Encounter for therapeutic drug monitoring Bradycardia Other specified cardiac dysrhythmias documented in this encounter Advance Directives Documents on File Type Date Recorded Patient Renewable Energy Consultant Expl anation Advanced Directive Advanced Directive 01/26/2013 11:57 AM Advanced Directive Advanced Directive Advanced Directive Advanced Directive Advanced Directive Advanced Directive"
--- OUTSIDE RECORDS SUMMARY | 2023-09-08 00:49 | External Medical Summary | Summary of Care ---
Author Name Unknown Organization [facility] [place] [address] Care Team Providers Care Truck Despatcher Name Role Phone Hank Oshea MD Primary Care Provider [phone] Reason for Visit * Reason Comments Dosage Adjustment Via Phone (anticoag Cl inic) Congestive Heart Failure Encounter Details Date Type Department Care Team Description 04/24/2020 Pharmacy Pharm[facility], [facility] [address] [facility] [address] [employer] [place] [address] Myocardial infarction, unspecified [place] type, unspecified artery (HCC)* Allergies No Known Allergiesdocumented as of this encounter (statuses as of 04/24/2020) Medications Medication Sig Dispensed Refills Start Date End Date Status VITAMIN D 2000 UNITS PO TABS one tablet daily 0 Active nitroglycerin (NITROSTAT) 0.4 MG SUBLIndications:Coronary artery disease involving [place] coronary artery of [place] heart without angina pectoris,Myocardial infarction involving other [...] 125 mcg TabletIndications:Rascon [place] artery disease involving [place] coronary artery of [place] heart without angina pectoris,Chronic atrial fibrillation TAKE ONE TABLET BY MOUTH ON ., ., AND SAT. 45 Tab 3 03/14/2020 Active metoprolol succinate XL (TOPROL XL) 50 MG [id number]:Atrial fibrillation, unspecified type (HCC) Take 1 Tab by mouth 2 times a day. 182 Tab 3 03/22/2020 Active documented as of this encounter (statuses as of 04/24/2020) Active Problems Problem Noted Date AICD (automatic cardioverter/defibrillat or) present 02/10/2013 Heart failure, systolic, due to CAD 06/2013 Ischemic cardiomyopathy 01/06/2013 Atrial fibrillation 01/06/2013 CAD (coronary artery disease) 07/25/2012 TN (myocardial infarction) 07/25/2012 documented as of this encounter (statuses as of 04/24/2020) Immunizations Name Administration Dates Next Due DTaP [...] have Coronavirus / COVID-19? No / Unsure 04/15/2020 1:06 PM EDT documented as of this encounter Progress Notes * Viola Hernandez, [facility] - 04/24/2020 9:28 AM EDT BP Readings from Last 3 Encounters: 03/14/20 108/64 08/31/19 112/70 05/24/19 120/72 Pulse Readings from Last 3 Encounters: 03/14/20 58 08/31/19 50 05/24/19 68 Wt Readings from Last 3 Encounters: 03/14/20 80 kg (176 lb 6.4 oz) 08/31/19 77.6 kg (171 lb) 05/24/19 75.9 kg (167 lb 6.4 oz) CREATININE(mg/dL) Boris Dt/Tm Resulted Value Status 04/15/20 1:08P 04/15/20 1.3* FINAL 03/14/20 3:18P 03/14/20 1.5* FINAL 09/12/19 11:41A 09/12/19 1.2 FINAL SODIUM(mmol/L) Boris Dt/Tm Resulted Value Status 04/15/20 1:08P 04/15/20 141 FINAL 03/14/20 3:18P 03/14/20 141 FINAL 09/12/19 11:41A 09/12/19 141 FINAL POTASSIUM(mmol/L) Boris Dt/Tm Resulted Value Status 04/15/20 1:08P 04/15/20 4.4 FINAL 03/14/20 3:18P 03/14/20 4.9 FINAL 09/12/19 11:41A 09/12/19 4.9 FINAL Patient had repeat labs which are stable at this time. Follow up after pacer clinic on 06/24. Viola Hernandez, Pharm D Clinical Pharmacist 04/24/2020, 9:38 AM Electronically signed by Viola Hernandez [facility] at 04/24/2020 9:39 AM EDT documented in this encounter Plan of Treatment Upcoming Encounters Date Type Specialty Care Team Description 06/11/2020 Anticoagulation Pharmacy Radha Cabrera [facility] [address] [facility], [place] [address] 06/24/2020 Cardiac Studies Cardiology [facility] [place] [address] [phone] 06/25/2020 Pharmacy Pharmacy [facility] [address] 08/12/2020 Office Visit Cardiology [facility] Langston [facility] [address] [facility] [place] [address] [phone] Health Maintenance Due Date Last Done Comments [...] unspecified [place] type, unspecified artery (HCC)- Primary documented in this encounter Advance Directives Documents on File Type Date Recorded Patient Computer Forensics Investigator Expl anation Advanced Directive Advanced Directive 01/26/2013 11:57 AM Advanced Directive Advanced Directive Advanced Directive Advanced Directive Advanced Directive Advanced Directive
--- OUTSIDE RECORDS SUMMARY | 2023-09-08 00:49 | External Medical Summary | Summary of Care ---
Author Name Unknown Organization [place] [address] Care Team Providers Care Desk Monitor Name Role Phone Hank Oshea MD Primary Care Provider [phone] Encounter Details Date Type Department Care Team Description 06/11/2020 Orders Only Pharmacy, [place] Braulio Nicole [address] [place] [address] Pharmacist1, [facility] [address] [facility] [place] [address] Allergies No Known Allergiesdocumented as of this encounter (statuses as of 06/11/2020) Medications Medication Sig Dispensed Refills Start Date End Date Status VITAMIN D 2000 UNITS PO TABS one tablet daily 0 Active nitroglycerin (NITROSTAT) 0.4 MG SUBLIndications:Coronary artery disease involving [place] coronary artery [...] 125 mcg TabletIndications:Ras[place] ry artery disease involving [place] coronary artery of [place] heart without angina pectoris,Chronic atrial fibrillation TAKE ONE TABLET BY MOUTH ON ., ., AND SAT. 45 Tab 3 03/14/2020 Active metoprolol succinate XL (TOPROL XL) 50 MG [id number]:Atrial fibrillation, unspecified type (HCC) Take 1 Tab by mouth 2 times a day. 182 Tab 3 03/22/2020 Active documented as of this encounter (statuses as of 06/11/2020) Active Problems Problem Noted Date AICD (automatic cardioverter/defibrillat or) present 02/10/2013 Heart failure, systolic, due to CAD 06/2013 Ischemic cardiomyopathy 01/06/2013 Atrial fibrillation 01/06/2013 CAD (coronary artery disease) 07/25/2012 [place] (myocardial infarction) 07/25/2012 documented as of this encounter (statuses as of 06/11/2020) Immunizations Name Administration Dates Next Due DTaP [...] AM EDT documented as of this encounter Plan of Treatment Upcoming Encounters Date Type Specialty Care Team Description 06/24/2020 Cardiac Studies Cardiology [facility] [place] [address] [phone] 06/25/2020 Pharmacy Pharmacy [facility] [address] 07/23/2020 Anticoagulation Pharmacy Pharmacist, [facility] [address] [facility] [place] [address] 08/12/2020 Office Visit Cardiology Denis [facility]ston MD [address] [facility] [address] [phone] Health Maintenance Due Date Last Done Comments [...] Date/Time Associated Diagnosis Comments INR FINGERSTICK Routine 06/11/2020 11:42 AM EDT documented in this encounter Results * INR FINGERSTICK (06/11/2020 11:42 AM EDT) FINGERSTICK INR 3.2 INR [facility] THERAPEUTIC RANGE Comment: Therapeutic ranges for non-operative patients: Prophylaxsis/treatmen t of DVT: (Range:2.0-3.0) Treatment of pulmonary embolism:(Range:2.0-3 .0) Prevention of systemic embolism from: -tissue heart valves -acute myocardial infarction -valvular heart disease -atrial fibrillation (Range: 2.0-3.0) Mechanical prosthetic valves: (Range: 2.5-3.5) [facility] Specimen Performing Organization Address City/State[facility] e Phone Number [facility] [address] [place] [address] documented in this encounter Advance Directives Documents on File Type Date Recorded Patient Crib Attendant Expl anation Advanced Directive Advanced Directive 01/26/2013 11:57 AM Advanced Directive Advanced Directive Advanced Directive Advanced Directive Advanced Directive Advanced Directive
--- OUTSIDE RECORDS SUMMARY | 2023-09-08 00:49 | External Medical Summary ---
Author Name Unknown Address Unknown Organization R:IT USE ONLY!!! Laboratory Report Ordering Provider Test Date Status [facility] 06/11/2020 11:42:00 Final Observation Date Value Abnormality Reference (Units ) Status INR in Capillary blood by Coagulation assay 06/11/2020 11:54 3.2 (INR) Final Days in therapeutic INR range/Days INR result determined [Ratio] 06/11/2020 11:54 Final Therapeutic ranges for non-o perative patients:
Prophylaxsis/treatment of DVT: (Range:2.0-3.0)
Treatment of pulmonary embolism:(Range:2.0-3.0)
Prevention of systemic embolism from:
-tissue heart valves
-acute myocardial infarction
-valvular heart disease
-atrial fibrillation
(Range: 2.0-3.0)
Mechanical prosthetic valves: (Range: 2.5-3.5) Performing Location IT USE ONLY!!!
--- OUTSIDE RECORDS SUMMARY | 2023-09-08 00:49 | External Medical Summary ---
Author Name Unknown Address [address] [facility] [place] [address] Phone Organization [id number]:[facility] [employer] [address] [facility] [place] [address] Laboratory Report Ordering Provider Test Date Status ROXANA MAYA 04/15/2020 13:08:00 Final Observation Date Value Abnormality Reference (Units ) Status BUN 04/15/2020 14:15 22 Above high normal 6-20 (mg/dL) Final Creatinine 04/15/2020 14:15 1.3 Above high normal 0.6- 1.2 (mg/dL) Final E Glom Filt Rate 04/15/2020 14:15 48.4 Below low normal >60 Final If patient is [place] an, multiply estimated GFR by 1.159. Sodium 04/15/2020 14:15 141 135-146 (mmol /L) Final Potassium 04/15/2020 14:15 4.4 3.5-5.1 (mmol /L) Final Cl 04/15/2020 14:15 103 98-107 (mmol/ L) Final CO2 04/15/2020 14:15 26 22-32 (mmol/L ) Final Anion gap 04/15/2020 14:15 12 7-15 (mmol/L) Final Glucose 04/15/2020 14:15 96 70-120 (mg/dL ) Final Calcium 04/15/2020 14:15 9.6 8.4-10.2 (mg/ dL) Final Performing Location [facility] [employer] [address] [facility] [place] [address]
--- OUTSIDE RECORDS SUMMARY | 2023-09-08 00:49 | External Medical Summary | Summary of Care ---
Author Name Unknown Organization [place] [address] Care Team Providers Care Doughnut Glazier Name Role Phone Hank Oshea MD Primary Care Provider [phone] Reason for Visit * Reason Comments Follow Up Encounter Details Date Type Department Care Team Description 03/14/2020 Office Visit Cardiology, [facility] [address] [place] [address] Wilmar Lay PA-C [address] [facility] [place] [address] [phone] Coronary artery disease involving [place] coronary artery of [place] heart without angina pectoris*; Chronic atrial fibrillation; [...] 0.4 MG SUBLIndications:Coron richardson artery disease involving [place] coronary artery of [place] heart without angina pectoris,Myocardial infarction involving other [...] 12.5 MG TabletIndications:Cor onary artery disease involving [place] coronary artery of [place] heart without angina pectoris,Chronic atrial fibrillation Take 1 Tab by mouth 2 times a day. with food 180 Tab 3 03/14/2020 Active digoxin (LANOXIN) 125 mcg TabletIndications:Cor onary artery disease involving [place] coronary artery of [place] heart without angina pectoris,Chronic atrial fibrillation TAKE ONE TABLET BY MOUTH ON TUES., THURS., AND SAT. 45 Tab 3 03/14/2020 Active carvedilol (COREG) 12.5 MG TabletIndications:Cor onary artery disease involving [place] coronary artery of [place] heart without angina pectoris,Chronic atrial fibrillation Take 1 Tab by mouth 2 times a day. with food 180 Tab 3 05/24/2019 03/14/2020 Discontinued (Refill) digoxin (LANOXIN) 125 mcg TabletIndications:Cor onary artery disease involving [place] coronary artery of [place] heart without angina pectoris,Chronic atrial fibrillation TAKE [...] Progress Notes * Denis Langston MD - 03/18/2020 11:44 AM EDT Yes that would be good * Wilmar Lay PA-C - 03/14/2020 2:29 PM EDT SUBJECTIVE: Lucian Rodolfo Larson Jr. Is a 84 year old male here today for cardiology evaluation. Surg Tech is Dr. Denis Langston. Last seen in [...] (coronary artery disease) I25.10 [place] (myocardial infarction) ([facility]) I21.9 Heart failure, systolic, due to CAD ([facility]) I50.20, I25.10 Ischemic cardiomyopathy I25.5 Atrial fibrillation ([facility]) I48.91 AICD (automatic cardioverter/defibrillator) present [...] ICD function. Medtronic Model - Eric IIVR [id number] (SN: [id number]). RV Lead: Medtronic, Model - 6935 (SN: [id number]). Implant Date: 02-02-2013. Battery voltage: 2.91 V. [...] interrogation and reprogramming today by the Medtronic site safety representative, increasing the lower rate on the [...] reserve. Batteryvoltage is 2.83 V with an SOUND TESTER of 2.63 V. Backup pacemaker set VVI [...] Specialty Care Team Description 03/20/2020 Pharmacy Pharmacy [facility] [address] [place] [address] 04/18/2020 [facility]ticoagulation Pharm[facility] [address] [phone] 06/24/2020 Cardiac Studies Cardiology [facility] [address] [place] [address] [phone] 08/12/2020 Office Visit Cardiology Denis Langston MD [address] [place] [address] [phone] Scheduled Orders Name Type Priority Associated Diagnoses [...] EDT) TSH 4.34(H) 0.27 - 4.2 uIU/mL [facility] Specimen Performing Organization Address City/State/Zipcod e Phone Number [facility] [address] [place] [address] * HCT (03/14/2020 3:18 PM EDT) HCT 40.7 40.0 - 48.4 % [facility] OM Specimen Performing Organization Address [facility] e Phone Number [facility] ROOM [facility] Quinn [facility]le[facility] Room [address] [place] [address] * HGB (03/14/2020 3:18 PM EDT) HGB 14.0 14.0 - 16.8 g/dL [facility] WOOD [facility] PHLE[facility] ROOM Specimen Performing Organization Address [facility] e Phone Number [facility] QUINN [facility] PHLE[facility] ROOM [facility] [address] [place] [address] * DIGOXIN-LEVEL (03/14/2020 3:18 PM EDT) DIGOXIN <0.2(L) 0.5 - 2.0 ng/mL [facility] NTER Specimen Performing Organization Address [facility] e Phone Number [facility] [address] [place] [address] * BASIC METAB PANEL, BMP (03/14/2020 3:18 [...] WOOD LAB PROCESSING Specimen Performing Organization Address [facility] e Phone Number [facility]ella [facility] Processing [address] [place] [address] documented in this encounter Visit Diagnoses Diagnosis Coronary artery disease involving [place] coronary artery of [place] heart without angina pectoris- Primary Chronic atrial [...] Documents on File Type Date Recorded Patient Forms Designer Expl anation Advanced Directive Advanced Directive 01/26/2013 11:57 AM Advanced Directive Advanced Directive Advanced Directive Advanced Directive Advanced Directive Advanced Directive"
--- OUTSIDE RECORDS SUMMARY | 2023-09-08 00:49 | External Medical Summary | Summary of Care ---
Author Name Unknown Organization [place] [address] Care Team Providers Care Retail Sales Associate Name Role Phone Hank Oshea MD Primary Care Provider [phone] Reason for Visit * Reason Comments Dosage Adjustment Via Phone (anticoag Cl inic) Encounter Details Date Type Department Care Team Description 03/14/2020 Anticoagulation Pharmacy, [facility] [address] [place] [address] Sp, [facility] [address] [facility] [place] [id number] Atrial fibrillation, unspecified type (HCC)*; Myocardial infarction, unspecified [place] type, unspecified artery (HCC) Allergies No Known Allergiesdocumented as of this encounter (statuses as of 03/14/2020) Medications Medication Sig Dispensed Refills Start Date End Date Status VITAMIN D 2000 UNITS PO TABS one tablet daily 0 Active nitroglycerin (NITROSTAT) 0.4 MG SUBLIndications:Coronary artery disease involving [place] coronary artery of [place] heart without angina pectoris,Myocardial infarction involving other [...] 5 02/13/2020 Active carvedilol (COREG) 12.5 MG TabletIndications:[place] artery disease involving [place] coronary artery of [place] heart without angina pectoris,Chronic atrial fibrillation Take 1 Tab by mouth 2 times a day. with food 180 Tab 3 03/14/2020 Active digoxin (LANOXIN) 125 mcg TabletIndications:[place] artery disease involving [place] coronary artery of [place] heart without angina pectoris,Chronic atrial fibrillation TAKE ONE TABLET BY MOUTH ON ., TH., AND SAT. 45 Tab 3 03/14/2020 Active documented as of this encounter (statuses as of 03/14/2020) Active Problems Problem Noted Date AICD (automatic cardioverter/defibrillat or) present 02/10/2013 Heart failure, systolic, due to CAD 06/2013 Ischemic cardiomyopathy 01/06/2013 Atrial fibrillation 01/06/2013 CAD (coronary artery disease) 07/25/2012 [place] (myocardial infarction) 07/25/2012 documented as of this encounter (statuses as of 03/14/2020) Immunizations Name Administration Dates Next Due DTaP [...] Progress Notes * Luiza Nguyen RPh - 03/14/2020 3:30 PM EDT Medication Therapy Disease Management - Anticoagulation Patient: Lucian Larson Jr. : 1935 Contacts Type Contact Phone 03/14/2020 03:32 PM Phone (Outgoing) Lucian Larson Jr. (Self) [phone] (H) Left Message Current Warfarin Dose As of 03/14/2020 Warfarin maintenance plan: 5 mg (5 mg x 1) every day Patient-Reported Symptoms: INR Result As of 03/14/2020 INR goal: 2.0-3.0 INR used for dosin.25 (03/14/2020) Warfarin Plan As of 03/14/2020 Full warfarin instructions: 5 mg every day No change documented: Luiza Masters RPh Next INR check: 05/09/2020 Additional Dosing Information: Repeat PT/INR in 8 week(s) [temp extended testing freq due to COVID-19 concerns] Weekly dose: not changed Luiza Paz RPh Clinical Pharmacist 03/14/2020, 3:31 PM documented in this encounter Plan of Treatment Upcoming Encounters Date Type Specialty Care Team Description 03/15/2020 Pharmacy Pharmacy [facility]ella [address] [facility] [place] [address] 04/18/2020 Anticoagulation Pharmacy [facility] [address] [facility] [address] [phone] 06/24/2020 [facility] [address] [place] [address] [phone] 08/12/2020 Office Visit Cardiology Denis Langston MD [address] [place] [address] [phone] Health Maintenance Due Date Last Done Comments Zoster Vaccines (1 of 2) 1984 Pneumococcal Vaccine: 65+ Years (1 of 2 - PCV13) 1999 *DEPRESSION SCREENING,ANNUAL FOR PTS 12 AND OVER 12/02/2014 Influenza Vaccine (FLU shot) (Season Ended) 2020 07/29/2017, 08/08/2012 DIABETES SCREEN EVERY 3 YRS-AGE 45 AND ABOVE 09/12/2022 09/12/2019, 05/24/2019, 01/11/2018, Additional history exists DTaP,Tdap,and Td Vaccines (2 - Tdap) 07/29/2027 07/29/2017 MENINGOCOCCAL (MENACTRA/MENVEO) Aged Out No longer eligible based on patient's age to complete this topic documented as of this encounter Implants Not on filedocumented as of this encounter Visit Diagnoses Diagnosis Atrial fibrillation, unspecified type (HCC)- Primary Myocardial infarction, unspecified [place] type, unspecified artery (HCC) documented in this encounter Advance Directives Documents on File Type Date Recorded Patient Milling General Superintendent Expl anation Advanced Directive Advanced Directive 01/26/2013 11:57 AM Advanced Directive Advanced Directive Advanced Directive Advanced Directive Advanced Directive Advanced Directive
--- OUTSIDE RECORDS SUMMARY | 2023-09-08 00:49 | External Medical Summary ---
Author Name Unknown Address [address] [facility] [place] [address] Phone Organization K0G:[facility] [employer] [facility] [place] [address] Laboratory Report Ordering Provider Test Date Status KIMMY TURNER 04/15/2020 13:13:00 Final Observation Date Value Abnormality Reference (Units ) Status PT 04/15/2020 13:52 26.5 Above high normal 11.5- 14.6 (seconds) Final INR 04/15/2020 13:52 2.41 Above high normal 0.84- 1.14 Final Performing Location [facility] Antonella Morrell [address] [facility] [place] [address]
--- OUTSIDE RECORDS SUMMARY | 2023-09-08 00:49 | External Medical Summary | Summary of Care ---
Author Name Unknown Organization [place] [address] Care Team Providers Care Foreign Agent Name Role Phone Hank Oshea MD Primary Care Provider [phone] Reason for Visit * Reason Comments Dosage Adjustment In Person (Anticoag Cl inic) Encounter Details Date Type Department Care Team Description 06/11/2020 Anticoagulation Pharmacy, [facility] [address] [facility] [place] [address] Pharmacist1, [facility] 200 [facility] [place] [id number] Atrial fibrillation, unspecified type (HCC)*; Myocardial infarction, unspecified [place] type, unspecified artery (HCC) Allergies No Known Allergiesdocumented as of this encounter (statuses as of 06/11/2020) Medications Medication Sig Dispensed Refills Start Date End Date Status VITAMIN D 2000 UNITS PO TABS one tablet daily 0 Active nitroglycerin (NITROSTAT) 0.4 MG SUBLIndications:Coronary artery disease involving [place] coronary artery of [place] heart without angina pectoris,Myocardial infarction involving other [...] 125 mcg TabletIndications:Rascon ry artery disease involving [place] coronary artery of [place] heart without angina pectoris,Chronic atrial fibrillation TAKE ONE TABLET BY MOUTH ON ., ., AND SAT. 45 Tab 3 03/14/2020 Active metoprolol succinate XL (TOPROL XL) 50 MG [id number]:Atrial fibrillation, unspecified type (HCC) Take 1 Tab [...] Progress Notes * Anibal Mcfarland RPh - 06/11/2020 1:36 PM EDT I agree with the medication decision and date of next INR. Anibal Caceres RPh, CACP, CDE Clinical Pharmacist Medication Therapy Management [facility] 06/11/2020, 1:36 PM * Juany Richards RPh - 06/11/2020 11:36 AM EDT Medication Therapy Disease Management - Anticoagulation Patient: Lucian Larson Jr. : 1935 Current Warfarin Dose As of 06/11/2020 Warfarin maintenance plan: 5 mg (5 mg x 1) every day Patient-Reported Symptoms: Patient Findings Negatives: Signs/symptoms of thrombosis, Signs/symptoms of bleeding, Change in health, Change in alcohol use, Change in activity, Upcoming invasive procedure, Missed doses, Extra doses, Change in medications, Change in diet/appetite, Bruising INR Result As of 06/11/2020 INR goal: 2.0-3.0 INR used for dosin.2! (06/11/2020) Warfarin Plan As of 06/11/2020 Full warfarin instructions: 06/11: 2.5 mg; Otherwise 5 mg every day Next INR check: 07/23/2020 Additional Dosing Information: Repeat PT/INR in 6 week(s) Weekly dose: not changed Juany Richards [facility] Clinical Pharmacist 06/11/2020, 11:45 AM documented in this encounter Plan of Treatment Upcoming Encounters Date Type Specialty Care Team Description 06/24/2020 Cardiac Studies Cardiology [facility], [facility] [address] [place] [address] [phone] 06/25/2020 [facility] [address] [place] [address] 07/23/2020 Anticoagulation Pharmacy Pharmacist, [facility] [address] [facility] [place] [address] 08/12/2020 Office Visit Cardiology Denis Langston MD [address] [place] [address] [phone] Health Maintenance Due Date Last Done Comments [...] unspecified type (HCC)- Primary Myocardial infarction, unspecified ND type, unspecified artery (HCC) documented in this encounter Advance Directives Documents on File Type Date Recorded Patient Demand Generator Manager Expl anation Advanced Directive Advanced Directive 01/26/2013 11:57 AM Advanced Directive Advanced Directive Advanced Directive Advanced Directive Advanced Directive Advanced Directive
--- OUTSIDE RECORDS SUMMARY | 2023-09-08 00:49 | External Medical Summary ---
Author Name Unknown Address [facility] [place] [facility] [place] [address] Phone Organization K01:[place] [address] [address] [place] [id number] Laboratory Report Ordering Provider Test Date Status ARSH MAYAO 04/15/2020 13:08:00 Final Observation Date Value Abnormality Reference (Units ) Status TSH 04/15/2020 18:38 3.95 0.27-4.2 (uIU /mL) Final Performing Location [address] [address]
--- OUTSIDE RECORDS SUMMARY | 2023-09-08 00:49 | External Medical Summary | Summary of Care ---
Author Name Unknown Organization [facility] [place] [address] Care Team Providers Care Biological Inspector Name Role Phone Hank Oshea MD Primary Care Provider [phone] Reason for Visit * Reason Comments Defibrillator Clinic Encounter Details Date Type Department Care Team Description 06/27/2020 Cardiac Studies Cardiology, [facility] [address] [facility] [place] [address] [place], [facility] 132 [facility] [place] [address] [phone] Ischemic cardiomyopathy*; Atrial fibrillation, unspecified type (HCC); AICD (automatic cardioverter/defibril lator) present Allergies No Known Allergiesdocumented as of this encounter (statuses as of 06/27/2020) Medications Medication Sig Dispensed Refills Start Date End Date Status VITAMIN D 2000 UNITS PO TABS one tablet daily 0 Active nitroglycerin (NITROSTAT) 0.4 MG SUBLIndications:Coronary artery disease involving [place] coronary artery of [place] heart without angina pectoris,Myocardial infarction involving other [...] 125 mcg TabletIndications:Rascon ry artery disease involving [place] coronary artery of [place] heart without angina pectoris,Chronic atrial fibrillation TAKE ONE TABLET BY MOUTH ON ., ., AND SAT. 45 Tab 3 03/14/2020 Active metoprolol succinate XL (TOPROL XL) 50 MG [id number]:Atrial fibrillation, unspecified type (HCC) Take 1 Tab by mouth 2 times a day. 182 Tab 3 03/22/2020 Active documented as of this encounter (statuses as of 06/27/2020) Active Problems Problem Noted Date AICD (automatic cardioverter/defibrillat or) present 02/10/2013 Heart failure, systolic, due to CAD 06/2013 Ischemic cardiomyopathy 01/06/2013 Atrial fibrillation 01/06/2013 CAD (coronary artery disease) 07/25/2012 [place] (myocardial infarction) 07/25/2012 documented as of this encounter (statuses as of 06/27/2020) Immunizations Name Administration Dates Next Due DTaP [...] this encounter Progress Notes * Addi Vaughn Alyssa, TECH - 06/27/2020 1:33 PM EDT HEART RHYTHM DEVICE CLINIC - SINGLE CHAMBER DEFIBRILLATOR -- 06/27/2020 TYPE OF VISIT:Threshold testing. Routine single chamber defibrillator follow. INDICATION: I25.5 Ischemic cardiomyopathy (primary encounter diagnosis) I48.91 Atrial fibrillation, unspecified type (HCC) Z95.810 AICD (automatic cardioverter/defibrillator) present IMPLANTING PHYSICIAN: Dr. Gonzalez IMPLANT/DEVICE HISTORY: February 02, 2013 CURRENT SYSTEM: ICD: Medtronic, model - Eric II VR [id number] SN: [id number] RV Lead: Medtronic, Model - 6935 SN: [id number]: 02-02-2013 Abandoned leads: none ALERTS/ADVISORIES:none PATIENT EVALUATION: Symptoms: No dizziness, palpitations, syncope, or presyncope. Pocket evaluation: Left pectoral device pocket is healthy without erythema, swelling, pain, or drainage. Patient denies any problems upon questioning. Intrinsic rhythm: RV paced still at 30 bpm. DEVICE EVALUATION: R V Pacing threshold: 0.5 volts at 0.4 msec Sensing: paced at 30 bpm Pacing impedance: 494 ohms Percentage paced: 22.2 % HVLI: 60 ohms Thoracic impedance monitoring: N/A Battery: 2.79 volts PANCHO: 2.63 volts Charge time: 10.5 seconds Short V-V intervals: 0 PVC singles counter : 109.5 per hour over a 105 day period. (This is a decrease.) Oral anticoagulant therapy: Coumadin, Plavix Rate/Rhythm medication: Digoxin, Metoprolol VT/VF episodes (since last evaluation): 1 VT nonsustained episodes of which the longest is 1 seconds with a ventricular rate of 200 bpm Past VT/VF episodes: First shock: Most recent shock: Total ICD shocks/ATP therapy: Appropriate shocks: Inappropriate shocks: ATP therapy: FINAL ICD PARAMETERS: Pacemaker mode/rate: VVI at 40 bpm RV Amplitude: 2.0 Volts Pulse width: 0.5 msec VT detection: Off FVT detection: 188-231 bpm (Burst x 1, 25J, 35J x 4) VF detection: >188 bpm (ATP during charging, 25J, 35J x 5) Mode switch: OFF PARAMETER CHANGES: None IMPRESSION: Normal single chamber defibrillator function. Adequate battery reserve PLAN: Patient given a new auto remote monitoring transmission schedule for every 14 weeks until next Heart Rhythm Device Clinic. Return to Heart Rhythm Device Clinic in 56 weeks. Nurse: Addi Vaughn [facility] CAR RENTAL SALES ASSISTANT: Dr. Langston This patient was seen in [...] Encounters Date Type Specialty Care Team Description 07/23/2020 Anticoagulation Pharmacy Pharmacist, [facility] [address] 08/12/2020 Office Visit Cardiology [facility] [address] [phone] 08/13/2020 Pharmacy Pharm[facility] [address] 10/03/2020 Cardiac Studies Cardiology [facility] [address] [facility] [place] [address] [phone] 01/02/2021 Cardiac Studies Cardiology [facility] [place] [address] [phone] 04/03/2021 Cardiac Studies Cardiology [facility] 132 [place] [address] [phone] 07/28/2021 [facility] 132 [place] [address] [phone] Scheduled Orders Name Type Priority Associated Diagnoses Orde r Schedule SINGLE-LEAD DEFIBRILLATOR + REPROGRAM Procedures Routine Ischemic cardiomyopathy Atrial fibrillation, unspecified type (HCC) AICD (automatic cardioverter/defibrill ator) present Ordered: 06/27/2020 Health Maintenance Due Date Last Done Comments [...] Documents on File Type Date Recorded Patient Director Of Donor Relations Expl anation Advanced Directive Advanced Directive 01/26/2013 11:57 AM Advanced Directive Advanced Directive Advanced Directive Advanced Directive Advanced Directive Advanced Directive
--- OUTSIDE RECORDS SUMMARY | 2023-09-08 00:49 | External Medical Summary | Summary of Care ---
Author Name Unknown Organization [place] [address] Care Team Providers Care Wood Dowel Machine Operator Name Role Phone Hank Oshea MD Primary Care Provider [phone] Reason for Visit * Reason Comments Dosage Adjustment Via Phone (anticoag Cl inic) Encounter Details Date Type Department Care Team Description 04/18/2020 Anticoagulation Pharmacy, [facility] [address] [facility] [place] [address] [facility] [address] [facility] [place] [id number] Myocardial infarction, unspecified MA type, unspecified artery (HCC)*; Atrial fibrillation, unspecified type (HCC) Allergies No Known Allergiesdocumented as of this encounter (statuses as of 04/18/2020) Medications Medication Sig Dispensed Refills Start Date End Date Status VITAMIN D 2000 UNITS PO TABS one tablet daily 0 Active nitroglycerin (NITROSTAT) 0.4 MG SUBLIndications:Coronary artery disease involving [place] coronary artery of [place] heart without angina pectoris,Myocardial infarction involving other [...] 125 mcg TabletIndications:Rascon ry artery disease involving [place] coronary artery of [place] heart without angina pectoris,Chronic atrial fibrillation TAKE ONE TABLET BY MOUTH ON ., ., AND SAT. 45 Tab 3 03/14/2020 Active metoprolol succinate XL (TOPROL XL) 50 MG [id number]:Atrial fibrillation, unspecified type (HCC) Take 1 Tab by mouth 2 times a day. 182 Tab 3 03/22/2020 Active documented as of this encounter (statuses as of 04/18/2020) Active Problems Problem Noted Date AICD (automatic cardioverter/defibrillat or) present 02/10/2013 Heart failure, systolic, due to CAD 06/2013 Ischemic cardiomyopathy 01/06/2013 Atrial fibrillation 01/06/2013 CAD (coronary artery disease) 07/25/2012 MA (myocardial infarction) 07/25/2012 documented as of this encounter (statuses as of 04/18/2020) Immunizations Name Administration Dates Next Due DTaP [...] Progress Notes * Luiza Nguyen RPh - 04/18/2020 11:50 AM EDT Medication Therapy Disease Management - Anticoagulation Patient: Lucian Larson Jr. : 1935 Contacts Type Contact Phone 04/18/2020 12:26 PM Phone (Outgoing) Lucian Larson Jr. (Self) [phone] (H) Spoke to Patient Current Warfarin Dose As of 04/18/2020 Warfarin maintenance plan: 5 mg (5 mg x 1) every day Patient-Reported Symptoms: Patient Findings Negatives: Signs/symptoms of thrombosis, Signs/symptoms of bleeding, Change in health, Change in alcohol use, Change in activity, Upcoming invasive procedure, Missed doses, Extra doses, Change in medications, Change in diet/appetite, Bruising INR Result As of 04/18/2020 INR goal: 2.0-3.0 INR used for dosin.41 (04/15/2020) Warfarin Plan As of 04/18/2020 Full warfarin instructions: 5 mg every day No change documented: Luiza Masters RPh Next INR check: 06/11/2020 Additional Dosing Information: Repeat PT/INR in 7 week(s) Weekly dose: not changed Luiza Paz RPh Clinical Pharmacist 04/18/2020, 12:26 PM documented in this encounter Plan of Treatment Upcoming Encounters Date Type Specialty Care Team Description 04/24/2020 Pharmacy Pharmacy Amanda Morrell [address] [place] [id number] 06/11/2020 Anticoagulation Pharmacy [facility] [address] [place] [address] 06/24/2020 Cardiac Studies Cardiology [facility] [address] [place] [address] [phone] 08/12/2020 Office Visit Cardiology Denis Langston MD [address] [place] [address] [phone] Health Maintenance Due Date Last Done Comments [...] encounter Visit Diagnoses Diagnosis Myocardial infarction, unspecified MA type, unspecified artery (HCC)- Primary Atrial fibrillation, unspecified type (HCC) documented in this encounter Advance Directives Documents on File Type Date Recorded Patient Laboratory Assistant Expl anation Advanced Directive Advanced Directive 01/26/2013 11:57 AM Advanced Directive Advanced Directive Advanced Directive Advanced Directive Advanced Directive Advanced Directive
--- OUTSIDE RECORDS SUMMARY | 2023-09-08 00:49 | External Medical Summary | Summary of Care ---
Author Name Unknown Organization [place] [address] Care Team Providers Care Software Consultant Name Role Phone Hank Oshea MD Primary Care Provider [phone] Reason for Visit * Reason Comments Dosage Adjustment Via Phone (anticoag Cl inic) Congestive Heart Failure Encounter Details Date Type Department Care Team Description 03/20/2020 [facility] [address] [facility] 132 [facility] [place] [address] Heart failure, systolic, due to CAD (HCC)* Allergies No Known Allergiesdocumented as of this encounter (statuses as of 03/20/2020) Medications Medication Sig Dispensed Refills Start Date End Date Status VITAMIN D 2000 UNITS PO TABS one tablet daily 0 Active nitroglycerin (NITROSTAT) 0.4 MG SUBLIndications:Coronary artery disease involving [place] coronary artery of [place] heart without angina pectoris,Myocardial infarction involving other [...] 12.5 MG TabletIndications:Rascon ry artery disease involving [place] coronary artery of [place] heart without angina pectoris,Chronic atrial fibrillation Take 1 Tab by mouth 2 times a day. with food 180 Tab 3 03/14/2020 Active digoxin (LANOXIN) 125 mcg TabletIndications:Rascon ry artery disease involving [place] coronary artery of [place] heart without angina pectoris,Chronic atrial fibrillation TAKE ONE TABLET BY MOUTH ON ., ., AND SAT. 45 Tab 3 03/14/2020 Active documented as of this encounter (statuses as of 03/20/2020) Active Problems Problem Noted Date AICD (automatic cardioverter/defibrillat or) present 02/10/2013 Heart failure, systolic, due to CAD 06/2013 Ischemic cardiomyopathy 01/06/2013 Atrial fibrillation 01/06/2013 CAD (coronary artery disease) 07/25/2012 SC (myocardial infarction) 07/25/2012 documented as of this encounter (statuses as of 03/20/2020) Immunizations Name Administration Dates Next Due DTaP [...] this encounter Progress Notes * Viola Hernandez RP - 03/20/2020 8:15 AM EDT Per cardiology, patient to repeat lab work in 1 month. No changes to medications. Due to low BP, if not improved would rotate from carvedilol to metoprolol. Also digoxin level was low as well, would consider increase in frequency of digoxin for symptom management. Follow up in 1 month with repeat lab work. Viola Hernandez, Pharm D Clinical Pharmacist 03/20/2020, 8:16 AM documented in this encounter Plan of Treatment Upcoming Encounters Date Type Specialty Care Team Description 04/18/2020 [address] [address] [phone] 04/24/2020 Pharmacy Pharmacy [facility] [address] 06/24/2020 Cardiac Studies Cardiology [facility] 132 [facility] [place] [address] [phone] 08/12/2020 Office Visit Cardiology Denis Langston MD 132 [facility] [place] [address] [phone] Health Maintenance Due Date Last Done Comments [...] Documents on File Type Date Recorded Patient Police Booking Officer Expl anation Advanced Directive Advanced Directive 01/26/2013 11:57 AM Advanced Directive Advanced Directive Advanced Directive Advanced Directive Advanced Directive Advanced Directive
--- OUTSIDE RECORDS SUMMARY | 2023-09-08 00:50 | External Medical Summary ---
Author Name Unknown Address [address] [place] [address] Phone Organization K0G:IRAIS Morrell [address] [place] [address] [place] [address] Laboratory Report Ordering Provider Test Date Status ROXANA MAYA 03/14/2020 15:18:00 Final Observation Date Value Abnormality Reference (Units ) Status Hemoglobin 03/14/2020 15:24 14.0 14.0-16.8 (g /dL) Final Performing Location [facility] Antonella Morrell 132 [facility] [place] [address]
--- OUTSIDE RECORDS SUMMARY | 2023-09-08 00:50 | External Medical Summary | Summary of Care ---
Author Name Unknown Organization [place] [address] Care Team Providers Care Line Painting Machine Operator Name Role Phone Hank Oshea MD Primary Care Provider [phone] Reason for Visit * Reason Comments Dosage Adjustment Via Phone (anticoag Cl inic) Congestive Heart Failure Encounter Details Date Type Department Care Team Description 02/01/2020 Pharmacy Pharmacy, [facility] [address] [facility] [address] [place] [address] Atrial fibrillation, unspecified type (HCC)* Allergies No Known Allergiesdocumented as of this encounter (statuses as of 02/01/2020) Medications Medication Sig Dispensed Refills Start Date End Date Status VITAMIN D 2000 UNITS PO TABS one tablet daily 0 Active nitroglycerin (NITROSTAT) 0.4 MG SUBLIndications:Coronar y artery disease involving [place] coronary artery of [place] heart without angina pectoris,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 25 Tab 11 07/21/2016 Active warfarin sodium (COUMADIN) 5 MG TabletIndications:Atria l fibrillation (HCC) 10 mg F, 5mg all other days 110 Tab 3 03/03/2019 Active Coenzyme Q10 (COQ10) 200 MG CAPS Take by mouth daily. 0 Active carvedilol (COREG) 12.5 MG TabletIndications:Coron richardson artery disease involving [place] coronary artery of [place] heart without angina pectoris,Chronic atrial fibrillation Take 1 Tab by mouth 2 times a day. with food 180 Tab 3 05/24/2019 Active digoxin (LANOXIN) 125 mcg TabletIndications:Coron richardson artery disease involving [place] coronary artery of [place] heart without angina pectoris,Chronic atrial fibrillation TAKE ONE TABLET BY MOUTH ON ., ., AND SAT. 45 Tab 3 05/24/2019 Active rosuvastatin (CRESTOR) 5 MG TabletIndications:Heart failure, systolic, due to CAD (HCC),Ischemic cardiomyopathy,AICD (automatic cardioverter/defibrilla tor) present,CAD (coronary artery disease) Take 1 tablet every other day 45 Tab 3 08/22/2019 Active Cetirizine HCl (ZYRTEC ALLERGY) 10 MG Capsule Take 10 mg by mouth daily. 0 Active levothyroxine (LEVOXYL) 50 MCG Tablet Take 1 Tab by mouth daily. 3 07/30/2019 Active clopidogrel (PLAVIX) 75 MG TabletIndications:Perma nent atrial fibrillation Take 1 Tab by mouth daily. 90 Tab 3 12/14/2019 Active furosemide (LASIX) 20 MG Tablet Take 1 Tab by mouth daily. 90 Tab 3 01/02/2020 Active sacubitril-valsartan 24-26 mg per tab (ENTRESTO) 24-26 MG TABS Take 1 Tab by mouth 2 times a day. 60 Tab 5 01/26/2020 Active documented as of this encounter (statuses as of 02/01/2020) Active Problems Problem Noted Date AICD (automatic cardioverter/defibrillat or) present 02/10/2013 Heart failure, systolic, due to CAD 06/2013 Ischemic cardiomyopathy 01/06/2013 Atrial fibrillation 01/06/2013 CAD (coronary artery disease) 07/25/2012 MA (myocardial infarction) 07/25/2012 documented as of this encounter (statuses as of 02/01/2020) Immunizations Name Administration Dates Next Due DTaP [...] End No recent travel history rafael ilable. documented as of this encounter Progress Notes * Viola Hernandez RPh - 02/01/2020 9:35 AM EDT Cards appointment cancelled. Follow up after appointment on 03/14 Viola Hernandez, Pharm D Clinical Pharmacist 02/01/2020, 9:36 AM documented in this encounter Plan of Treatment Upcoming Encounters Date Type Specialty Care Team Description 02/12/2020 [facility]ticoagulation Pharmacy [facility] [address] [facility] [address] 03/14/2020 [facility] Visit [facility]iology [facility] [address] [phone] 03/15/2020 Pharmacy Pharmacy [facility] [address] 03/22/2020 Cardiac Studies Cardiology [facility] [address] [facility] [place] [address] [phone] 08/12/2020 Office Visit Cardiology Denis Langston MD [address] [facility] [place] [address] [phone] Health Maintenance Due Date Last Done Comments Zoster Vaccines (1 of 2) 1984 Pneumococcal Vaccine: 65+ Years (1 of 2 - PCV13) 1999 *DEPRESSION SCREENING,ANNUAL FOR PTS 12 AND OVER 12/02/2014 Influenza Vaccine (FLU shot) (#1) 2019 07/29/2017, 08/08/2012 DIABETES SCREEN EVERY 3 YRS-AGE [...] Documents on File Type Date Recorded Patient Seed Expert Expl anation Advanced Directive Advanced Directive 01/26/2013 11:57 AM Advanced Directive Advanced Directive Advanced Directive Advanced Directive Advanced Directive Advanced Directive
--- OUTSIDE RECORDS SUMMARY | 2023-09-08 00:50 | External Medical Summary | Summary of Care ---
Author Name Unknown Organization [place] [address] Care Team Providers Care Clearance Cutter Name Role Phone Hank Oshea MD Primary Care Provider [phone] Reason for Visit * Reason Comments Medication Refill Encounter Details Date Type Department Care Team Description 01/26/2020 [facility], [facility] [place] [address] Zulma Lay PA-C [facility] [place] [address] [phone] Allergies No Known Allergiesdocumented as of this encounter (statuses as of 01/26/2020) Medications Medication Sig Dispensed Refills Start Date End Date Status VITAMIN D 2000 UNITS PO TABS one tablet daily 0 Active nitroglycerin (NITROSTAT) 0.4 MG SUBLIndications:Cor onary artery disease involving [place] coronary artery of [place] heart without angina pectoris,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 25 Tab 11 07/21/2016 Active warfarin sodium (COUMADIN) 5 MG TabletIndications:A trial fibrillation (HCC) 10 mg F, 5mg all other days 110 Tab 3 03/03/2019 Active Coenzyme Q10 (COQ10) 200 MG CAPS Take by mouth daily. 0 Active carvedilol (COREG) 12.5 MG TabletIndications:C oronary artery disease involving [place] coronary artery of [place] heart without angina pectoris,Chronic atrial fibrillation Take 1 Tab by mouth 2 times a day. with food 180 Tab 3 05/24/2019 Active digoxin (LANOXIN) 125 mcg TabletIndications:C oronary artery disease involving [place] coronary artery of [place] heart without angina pectoris,Chronic atrial fibrillation TAKE ONE TABLET BY MOUTH ON ., ., AND SAT. 45 Tab 3 05/24/2019 Active rosuvastatin (CRESTOR) 5 MG TabletIndications:H eart failure, systolic, due to CAD (HCC),Ischemic cardiomyopathy,AICD (automatic cardioverter/defibr illator) present,CAD (coronary artery disease) Take 1 tablet every other day 45 Tab 3 08/22/2019 Active Cetirizine HCl (ZYRTEC ALLERGY) 10 MG Capsule Take 10 mg by mouth daily. 0 Active levothyroxine (LEVOXYL) 50 MCG Tablet Take 1 Tab by mouth daily. 3 07/30/2019 Active clopidogrel (PLAVIX) 75 MG TabletIndications:P ermanent atrial fibrillation Take 1 Tab by mouth daily. 90 Tab 3 12/14/2019 Active furosemide (LASIX) 20 MG Tablet Take 1 Tab by mouth daily. 90 Tab 3 01/02/2020 Active sacubitril-valsarta n 24-26 mg per tab (ENTRESTO) 24-26 MG TABS Take 1 Tab by mouth 2 times a day. 60 Tab 5 01/26/2020 Active sacubitril-valsarta n 24-26 mg per tab (ENTRESTO) 24-26 MG TABS Take 1 Tab by mouth 2 times a day. 60 Tab 1 07/12/2019 01/26/2020 Discontinued( Refill) documented as of this encounter (statuses as of 01/26/2020) Active Problems Problem Noted Date AICD (automatic cardioverter/defibrillat or) present 02/10/2013 Heart failure, systolic, due to CAD 06/2013 Ischemic cardiomyopathy 01/06/2013 Atrial fibrillation 01/06/2013 CAD (coronary artery disease) 07/25/2012 [place] (myocardial infarction) 07/25/2012 documented as of this encounter (statuses as of 01/26/2020) Immunizations Name Administration Dates Next Due DTaP [...] Travel End No recent travel history rafael campa. documented as of this encounter Miscellaneous Notes * Telephone Encounter - Zulma Lay PA-C - 01/26/2020 4:01 PM EDT Signed Prescriptions: Disp Refills sacubitril-valsartan 24-26 mg per tab (ENT*60 Tab 5 Sig: Take 1 Tab by mouth 2 times a day. Authorizing Provider: ZULMA LAY * Telephone Encounter - Yina Elizondo RN - 01/26/2020 3:48 PM EDT Pending Prescriptions: Disp Refills sacubitril-valsartan 24-26 mg per tab (EN*60 Tab 5 Sig: Take 1 Tab by mouth 2 times a day. * Telephone Encounter - Yina Elizondo RN - 01/26/2020 3:47 PM EDT Requesting hard copy of script. Do not sign until in office. * Telephone Encounter - Carlita Betancourt CPhT - 01/26/2020 3:06 PM EDT is requesting a hard copy mailed to her. The address is [address] [place] [address] Pending Prescriptions: Disp Refills sacubitril-valsartan 24-26 mg per tab (EN*60 Tab 1 Sig: Take 1 Tab by mouth 2 times a day. Last Office Visit: 08/31/2019 Next Office Visit: 03/14/2020 Scheduled Provider(s): Zulma Lay PA-C If no future appointments scheduled, and last appointment is greater than a year ago, please schedule patient for a follow-up appointment Last date the medication was ordered: 07/12/2019 Pharmacy: Is this request for a controlled substance?No Urine Drug Screen:No results found for this or any previous visit. Patient Phone Numbers Labs: Lab Results Component Value Date/Time CREAT 1.2 09/12/2019 11:41 AM POTASSIUM 4.9 09/12/2019 11:41 AM TSH 2.62 05/24/2019 01:32 PM LDLCALC 68 01/11/2018 11:41 AM LDLDIRECT 72 05/24/2019 01:32 PM ALT 21 05/24/2019 01:32 PM HGBA1C 5.4 06/30/2016 10:59 AM documented in this encounter Plan of Treatment Upcoming Encounters Date Type Specialty Care Team Description 02/01/2020 Pharmacy [facility] [address] [place] [address] 02/12/2020 Anticoagulation Pharmacy [facility] [address] 03/14/2020 Office Visit Cardiology Zulma Lay PA-C [address] [place] [address] [phone] 03/22/2020 Cardiac Studies Cardiology [facility] [address] [place] [address] [phone] 08/12/2020 Office Visit Cardiology Denis Langston MD [address] [place] [address] [phone] Health Maintenance Due Date Last Done Comments [...] Documents on File Type Date Recorded Patient Display Department Manager Expl anation Advanced Directive Advanced Directive 01/26/2013 11:57 AM Advanced Directive Advanced Directive Advanced Directive Advanced Directive Advanced Directive Advanced Directive
--- OUTSIDE RECORDS SUMMARY | 2023-09-08 00:50 | External Medical Summary ---
Author Name Unknown Address [facility] [place] [address] Phone Organization K01:[place] [address] [facility] [address] Laboratory Report Ordering Provider Test Date Status ROXANA MAYA 03/14/2020 15:18:00 Final Observation Date Value Abnormality Reference (Units ) Status Digoxin 03/14/2020 20:48 <0.2 Below low normal 0.5-2. 0 (ng/mL) Final Performing Location [address] [address]
--- OUTSIDE RECORDS SUMMARY | 2023-09-08 00:50 | External Medical Summary ---
Author Name Unknown Address 132 [facility] [place] [address] Phone Organization K0G:Katiuska [place] Morrell 132 [facility] [place] [address] Laboratory Report Ordering Provider Test Date Status JOHNNYONEAL 03/14/2020 14:27:00 Final Observation Date Value Abnormality Reference (Units ) Status PT 03/14/2020 15:07 25.1 Above high normal 11.5- 14.6 (seconds) Final INR 03/14/2020 15:07 2.25 Above high normal 0.84- 1.14 Final Performing Location [facility] Antonella Morrell [address] [place] [address]
--- OUTSIDE RECORDS SUMMARY | 2023-09-08 00:50 | External Medical Summary | Summary of Care ---
Author Name Unknown Organization [place] [address] Care Team Providers Care Ham Passer Name Role Phone Hank Oshea MD Primary Care Provider [phone] Reason for Visit * Reason Comments Dosage Adjustment In Person (Anticoag Cl inic) Encounter Details Date Type Department Care Team Description 01/01/2020 Anticoagulation Pharmacy, [facility] 200 [facility] [place] [address] [facility] [address] [place] [address] Myocardial infarction, unspecified NM type, unspecified artery (HCC)*; Atrial fibrillation, unspecified type (HCC); Anticoagulation management encounter; skilled nursing 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 therapy Allergies No Known Allergiesdocumented as of this encounter (statuses as of 01/01/2020) Medications Medication Sig Dispensed Refills Start Date End Date Status VITAMIN D 2000 UNITS PO TABS one tablet daily 0 Active nitroglycerin (NITROSTAT) 0.4 MG SUBLIndications:Coronar y artery disease involving [place] coronary artery of [place] heart without angina pectoris,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 25 Tab 11 07/21/2016 Active furosemide (LASIX) 20 MG Tablet Take 1 Tab by mouth daily. 90 Tab 3 11/24/2018 Active warfarin sodium (COUMADIN) 5 MG TabletIndications:Atria l fibrillation (HCC) 10 mg F, 5mg all other days 110 Tab 3 03/03/2019 Active Coenzyme Q10 (COQ10) 200 MG CAPS Take by mouth daily. 0 Active carvedilol (COREG) 12.5 MG TabletIndications:Coron richardson artery disease involving [place] coronary artery of klam[place] heart without angina pectoris,Chronic atrial fibrillation Take 1 Tab by mouth 2 times a day. with food 180 Tab 3 05/24/2019 Active digoxin (LANOXIN) 125 mcg TabletIndications:Coron richardson artery disease involving [place] coronary artery of [place] heart without angina pectoris,Chronic atrial fibrillation TAKE ONE TABLET BY MOUTH ON TUES., THURS., AND SAT. 45 Tab 3 05/24/2019 Active sacubitril-valsartan 24-26 mg per tab (ENTRESTO) 24-26 MG TABS Take 1 Tab by mouth 2 times a day. 60 Tab 1 07/12/2019 Active rosuvastatin (CRESTOR) 5 MG TabletIndications:Heart failure, [...] mouth daily. 90 Tab 3 12/14/2019 Active documented as of this encounter (statuses as of 01/01/2020) Active Problems Problem Noted Date AICD (automatic cardioverter/defibrillat or) present 02/10/2013 Heart failure, systolic, due to CAD 06/2013 Ischemic cardiomyopathy 01/06/2013 Atrial fibrillation 01/06/2013 CAD (coronary artery disease) 07/25/2012 NM (myocardial infarction) 07/25/2012 documented as of this encounter (statuses as of 01/01/2020) Immunizations Name Administration Dates Next Due DTaP [...] Progress Notes * Anibal Mcfarland RPh - 01/01/2020 11:36 AM EST Medication Therapy Disease Management - Anticoagulation Lucian Larson 1935 Description 5mg daily (5mg tabs) Patient Findings Negatives: Signs/symptoms of thrombosis, Signs/symptoms of bleeding, Change in health, Change in alcohol use, Change in activity, Upcoming invasive procedure, Missed doses, Extra doses, Change in medications, Change in diet/appetite, Bruising INR Result As of 01/01/2020 INR goal: 2.0-3.0 INR used for dosin.2 (01/01/2020) Warfarin Plan As of 01/01/2020 Full warfarin instructions: 5 mg every day No change documented: Anibal Raymundo RPh Next INR check: 02/12/2020 Repeat PT/INR in 6 week(s) Weekly dose: not changed Anibal Caceres RPh, CACP, CDE Clinical Pharmacist Medication Therapy Management [facility] 01/01/2020 11:41 AM documented in this encounter Plan of Treatment Upcoming Encounters Date Type Specialty Care Team Description 01/31/2020 Office Visit Cardiology Wilmar Lay PA-C [address] [place] [address] [phone] 02/01/2020 Pharmacy Pharmacy [facility] [address] [place] [address] 02/12/2020 Anticoagulation Pharmacy Radha Cabrera [facility] [address] [facility] [place] [address] 03/22/2020 Cardiac Studies Cardiology Isi Yu [facility] [address] [place] [address] [phone] 08/12/2020 Office Visit Cardiology Denis Langston MD [address] [place] [address] [phone] Health Maintenance Due Date Last Done Comments [...] Date/Time Associated Diagnosis Comments INR FINGERSTICK STAT 01/01/2020 11:39 AM EST Atrial fibrillation, unspecified type (HCC) Myocardial infarction, unspecified NM type, unspecified artery (HCC) Anticoagulation management encounter skilled nursing 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 therapy documented in this encounter Results * INR FINGERSTICK (01/01/2020 11:39 AM EST) FINGERSTICK INR 2.2 INR [facility] THERAPEUTIC RANGE Comment: Therapeutic ranges for non-operative patients: Prophylaxsis/treatmen t of DVT: (Range:2.0-3.0) Treatment of pulmonary embolism:(Range:2.0-3 .0) Prevention of systemic embolism from: -tissue heart valves -acute myocardial infarction -valvular heart disease -atrial fibrillation (Range: 2.0-3.0) Mechanical prosthetic valves: (Range: 2.5-3.5) [facility] Specimen Performing Organization Address City/State/Zipcod e Phone Number [facility] [address] [place] [address] documented in this encounter Visit Diagnoses Diagnosis Myocardial infarction, unspecified NM type, unspecified artery (HCC)- Primary Atrial fibrillation, unspecified type (HCC) Anticoagulation management encounter Encounter for therapeutic drug monitoring medical terminologist 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 therapy documented in this encounter Advance Directives Documents on File Type Date Recorded Patient Disability Examiner Expl anation Advanced Directive Advanced Directive 01/26/2013 11:57 AM Advanced Directive Advanced Directive Advanced Directive Advanced Directive Advanced Directive Advanced Directive
--- OUTSIDE RECORDS SUMMARY | 2023-09-08 00:50 | External Medical Summary | Summary of Care ---
Author Name Unknown Organization [place] [address] Care Team Providers Care Solutions Executive Security Name Role Phone Hank Oshea MD Primary Care Provider [phone] Reason for Visit * Reason Comments eRx-Medication Refill Encounter Details Date Type Department Care Team Description 02/12/2020 Refill Cardiology, [facility] 132 [facility] [place] [address] Wesly Langston MD 132 [facility] [place] [address] [phone] Heart failure, systolic, due to CAD (HCC); Ischemic cardiomyopathy; AICD (automatic cardioverter/defibrillat or) present; CAD (coronary artery disease) Allergies No Known Allergiesdocumented as of this encounter (statuses as of 02/13/2020) Medications Medication Sig Dispensed Refills Start Date End Date Status VITAMIN D 2000 UNITS PO TABS one tablet daily 0 Active nitroglycerin (NITROSTAT) 0.4 MG SUBLIndications:Coron richardson artery disease involving [place] coronary artery of [place] heart without angina pectoris,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 25 Tab 11 07/21/2016 Active Coenzyme Q10 (COQ10) 200 MG CAPS Take by mouth daily. 0 Active carvedilol (COREG) 12.5 MG TabletIndications:Cor onary artery disease involving [place] coronary artery of [place] heart without angina pectoris,Chronic atrial fibrillation Take 1 Tab by mouth 2 times a day. with food 180 Tab 3 05/24/2019 Active digoxin (LANOXIN) 125 mcg TabletIndications:Cor onary artery disease involving [place] coronary artery of [place] heart without angina pectoris,Chronic atrial fibrillation TAKE ONE TABLET BY MOUTH ON ., ., AND SAT. 45 Tab 3 05/24/2019 Active Cetirizine HCl (ZYRTEC ALLERGY) 10 MG [...] OTHER DAY 45 Tab 5 02/13/2020 Active rosuvastatin (CRESTOR) 5 MG TabletIndications:Hea rt failure, systolic, due to CAD (HCC),Ischemic cardiomyopathy,AICD (automatic cardioverter/defibril lator) present,CAD (coronary artery disease) Take 1 tablet every other day 45 Tab 3 08/22/2019 02/13/2020 Discontinued documented as of this encounter (statuses as of 02/13/2020) Active Problems Problem Noted Date AICD (automatic cardioverter/defibrillat or) present 02/10/2013 Heart failure, systolic, due to CAD 06/2013 Ischemic cardiomyopathy 01/06/2013 Atrial fibrillation 01/06/2013 CAD (coronary artery disease) 07/25/2012 IA (myocardial infarction) 07/25/2012 documented as of this encounter (statuses as of 02/13/2020) Immunizations Name Administration Dates Next Due DTaP [...] have Coronavirus / COVID-19? No / Unsure 01/26/2020 3:02 PM EDT documented as of this encounter Miscellaneous Notes * Telephone Encounter - Wesly Langston MD - 02/13/2020 9:13 AM EDT Signed Prescriptions: Disp Refills rosuvastatin (CRESTOR) 5 MG Tablet 45 Tab 5 Sig: TAKE 1 TABLET BY MOUTH EVERY OTHER DAY Authorizing Provider: WESLY LANGSTON * Telephone Encounter - Yina Elizondo RN - 02/13/2020 8:52 AM EDT Pending Prescriptions: Disp Refills rosuvastatin (CRESTOR) 5 MG Tablet [Pharm*45 Tab 5 Sig: TAKE 1 TABLET BY MOUTH EVERY OTHER DAY * Telephone Encounter - Yina Elizondo RN - 02/13/2020 8:43 AM EDT Pending Prescriptions: Disp Refills rosuvastatin (CRESTOR) 5 MG Tablet [Pharm*45 Tab 0 Sig: TAKE 1 TABLET BY MOUTH EVERY OTHER DAY Last Office Visit: 08/31/2019 Next Office Visit: 03/14/2020 Scheduled Provider(s): Wilmar Lay PA-C If no future appointments scheduled, and last appointment is greater than a year ago, please schedule patient for a follow-up appointment Last date the medication was ordered: Pharmacy: [facility] [address] [place] [address] BISI KASHIF TERRELL Is this request for a controlled [...] Encounters Date Type Specialty Care Team Description 03/14/2020 Office Visit Cardiology Wilmar Lay PA-C [address] [place] [address] [phone] 03/14/2020 Laboratory Laboratory Woody Morrell [address] [place] [address] [phone] 03/14/2020 Anticoagulation Pharmacy [facility] [address] [facility] [address] 03/15/2020 Pharmacy Pharmacy [facility] [place] [address] [place] [address] 03/22/2020 Cardiac Studies Cardiology Isi Yu [facility] [address] [place] [address] [phone] 08/12/2020 Office Visit Cardiology Wesly Langston MD [address] [place] [address] [phone] Health Maintenance Due Date Last Done Comments [...] Coronary atherosclerosis of unspecified type of vessel, [place] or graft documented in this encounter Advance Directives Documents on File Type Date Recorded Patient Councillor [employer] Expl anation Advanced Directive Advanced Directive 01/26/2013 11:57 AM Advanced Directive Advanced Directive Advanced Directive Advanced Directive Advanced Directive Advanced Directive
--- OUTSIDE RECORDS SUMMARY | 2023-09-08 00:50 | External Medical Summary | Summary of Care ---
Author Name Unknown Organization [place] [address] Care Team Providers Care Scheduler Conveyor Name Role Phone Hank Oshea MD Primary Care Provider Reason for Visit * Reason Comments Dosage Adjustment Via Phone (anticoag Cl inic) Congestive Heart Failure Encounter Details Date Type Department Care Team Description 12/19/2019 [facility] [address] [facility] 132 [facility] [place] [address] Heart failure, systolic, due to CAD (HCC)* Allergies No Known Allergiesdocumented as of this encounter (statuses as of 12/19/2019) Medications Medication Sig Dispensed Refills Start Date End Date Status VITAMIN D 2000 UNITS PO TABS one tablet daily 0 Active nitroglycerin (NITROSTAT) 0.4 MG SUBLIndications:Coronar y artery disease involving [place] [...] 12.5 MG TabletIndications:Coron richardson artery disease involving [place] coronary artery of [place] heart without angina pectoris,Chronic atrial fibrillation Take 1 Tab by mouth 2 times a day. with food 180 Tab 3 05/24/2019 Active digoxin (LANOXIN) 125 mcg TabletIndications:Coron richardson artery disease involving [place] coronary artery of [place] heart without angina pectoris,Chronic atrial fibrillation TAKE ONE TABLET BY MOUTH ON TU., TH., AND SAT. 45 Tab 3 05/24/2019 Active [...] as of this encounter (statuses as of 12/19/2019) Active Problems Problem Noted Date AICD (automatic cardioverter/defibrillat or) present 02/10/2013 Heart failure, systolic, due to CAD 06/2013 Ischemic cardiomyopathy 01/06/2013 Atrial fibrillation 01/06/2013 CAD (coronary artery disease) 07/25/2012 CA (myocardial infarction) 07/25/2012 documented as of this encounter (statuses as of 12/19/2019) Immunizations Name Administration Dates Next Due DTaP [...] this encounter Progress Notes * Viola Hernandez татьяна - 12/19/2019 1:56 PM EST No cardiac updates at this time. Follow up after appointment on 01/30 with cards. Viloa Hernandez, Pharm D Clinical Pharmacist 12/19/2019, 1:59 PM documented in this encounter Plan of Treatment Upcoming Encounters Date Type Specialty Care Team Description 01/01/2020 Anticoagulation Pharmacy [facility] [address] [facility] [place] [address] 01/31/2020 Office Visit Cardiology Wilmar Lay PA-C [address] [facility] [place] [address] [phone] 02/01/2020 Pharmacy Pharmacy Morrell, [facility] [address] [facility] [place] [address] 03/22/2020 Cardiac Studies Cardiology Isi Yu [facility] [address] [facility] [place] [address] [phone] 08/12/2020 Office Visit Cardiology Denis Langston MD [address] [facility] [place] [address] [phone] Health Maintenance Due Date Last Done Comments [...] Documents on File Type Date Recorded Patient Public Health Director Expl anation Advanced Directive Advanced Directive 01/26/2013 11:57 AM Advanced Directive Advanced Directive Advanced Directive Advanced Directive Advanced Directive
--- OUTSIDE RECORDS SUMMARY | 2023-09-08 00:50 | External Medical Summary ---
Author Name Unknown Address [address] [facility] [place] [address] Phone Organization K0G:[facility] Antonella Morrell 132 [facility] [place] [address] Laboratory Report Ordering Provider Test Date Status ROXANA MAYA 03/14/2020 15:18:00 Final Observation Date Value Abnormality Reference (Units ) Status HCT 03/14/2020 15:24 40.7 40.0-48.4 (%) Final Performing Location [facility] [employer] [address] [place] [address]
--- OUTSIDE RECORDS SUMMARY | 2023-09-08 00:50 | External Medical Summary | Summary of Care ---
Author Name Unknown Organization [place] [address] Care Team Providers Care Chief Airline Radio Operator Name Role Phone Hank Oshea MD Primary Care Provider [phone] Reason for Visit * Reason Comments eRx-Medication Refill Encounter Details Date Type Department Care Team Description 02/12/2020 Refill Cardiology, [facility] 132 [facility] [place] [address] Buck Whitney, Rod Valdez DO 132 [place] [address] [phone] Atrial fibrillation (HCC) Allergies No Known Allergiesdocumented as of this encounter (statuses as of 02/13/2020) Medications Medication Sig Dispensed Refills Start Date End Date Status VITAMIN D 2000 UNITS PO TABS one tablet daily 0 Active nitroglycerin (NITROSTAT) 0.4 MG SUBLIndications:Coron richardson artery disease involving [place] coronary artery of [place] heart without angina pectoris,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 25 Tab 11 07/21/2016 Active Coenzyme Q10 (COQ10) 200 MG CAPS Take by mouth daily. 0 Active carvedilol (COREG) 12.5 MG TabletIndications:Cor onary artery disease involving [place] coronary artery of klamath heart without angina pectoris,Chronic atrial fibrillation Take 1 Tab by mouth 2 times a day. with food 180 Tab 3 05/24/2019 Active digoxin (LANOXIN) 125 mcg TabletIndications:Cor onary artery disease involving [place] coronary artery of [place] heart without angina pectoris,Chronic atrial fibrillation TAKE ONE TABLET BY MOUTH ON ., ., AND SAT. 45 Tab 3 05/24/2019 Active rosuvastatin (CRESTOR) 5 MG TabletIndications:Hea rt [...] OTHER DAYS. 110 Tab 3 02/13/2020 Active warfarin sodium (COUMADIN) 5 MG TabletIndications:Atr ial fibrillation (HCC) 10 mg F, 5mg all other days 110 Tab 3 03/03/2019 02/13/2020 Discontinued documented as of this encounter [...] Telephone Encounter - Wesly Mancia MD - 02/13/2020 8:44 AM EDT Signed Prescriptions: Disp Refills warfarin sodium (COUMADIN) 5 MG Tablet 110 Tab3 Sig: TAKE 10MG (2 TABLETS) BY MOUTH ON WEDNESDAY AND 5MG (1 TABLET) ALL OTHER DAYS. Authorizing Provider: WESLY MANCIA * Telephone Encounter - Yina Elizondo RN - 02/13/2020 8:43 AM EDT Pending Prescriptions: Disp Refills warfarin sodium (COUMADIN) 5 MG Tablet [P*110 Tab3 Sig: TAKE 10MG (2 TABLETS) BY MOUTH ON WEDNESDAY AND 5MG (1 TABLET) ALL OTHER DAYS. * Telephone Encounter - Yina Elizondo RN - 02/13/2020 8:42 AM EDT Pending Prescriptions: Disp Refills warfarin sodium (COUMADIN) 5 MG Tablet [P*110 Tab3 Sig: TAKE 10MG (2 TABLETS) BY MOUTH ON WEDNESDAY AND 5MG (1 TABLET) ALL OTHER DAYS. Last Office Visit: 08/31/2019 Next Office Visit: 03/14/2020 Scheduled Provider(s): Wilmar Lay PA-C If no future appointments scheduled, and last appointment is greater than a year ago, please schedule patient for a follow-up appointment Last date the medication was ordered: Pharmacy: [facility] [address] [place] [address] BISI TERRELL Is this request for a [...] Wilmar Lay PA-C [address] [place] [address] [phone] 03/14/2020 Laboratory Laboratory Woody Morrell [address] [place] [address] [phone] 03/14/2020 Anticoagulation Pharmacy [facility] [address] [place] [address] 03/15/2020 Pharmacy Pharmacy Petros Neligia [facility] [place] [address] [place] [address] 03/22/2020 Cardiac Studies Cardiology Isi Yu [facility] Morrell [address] [place] [address] [phone] 08/12/2020 Office Visit Cardiology Wesly Mancia MD [address] [place] [address] [phone] Health Maintenance Due Date Last Done Comments [...] Documents on File Type Date Recorded Patient Welder Apprentice Arc Expl anation Advanced Directive Advanced Directive 01/26/2013 11:57 AM Advanced Directive Advanced Directive Advanced Directive Advanced Directive Advanced Directive Advanced Directive
--- OUTSIDE RECORDS SUMMARY | 2023-09-08 00:50 | External Medical Summary ---
Author Name Unknown Address 132 [facility] [place] [address] Phone Organization K0G:[facility] [employer] [facility] [place] [address] Laboratory Report Ordering Provider Test Date Status ROXANA MAYA 03/14/2020 15:18:00 Final Observation Date Value Abnormality Reference (Units ) Status BUN 03/14/2020 16:38 26 Above high normal 6-20 (mg/dL) Final Creatinine 03/14/2020 16:38 1.5 Above high normal 0.6- 1.2 (mg/dL) Final E Glom Filt Rate 03/14/2020 16:38 41.8 Below low normal >60 Final If patient is [place] an, multiply estimated GFR by 1.159. Sodium 03/14/2020 16:38 141 135-146 (mmol /L) Final Potassium 03/14/2020 16:38 4.9 3.5-5.1 (mmol /L) Final Cl 03/14/2020 16:38 103 98-107 (mmol/ L) Final CO2 03/14/2020 16:38 27 22-32 (mmol/L ) Final Anion gap 03/14/2020 16:38 11 7-15 (mmol/L) Final Glucose 03/14/2020 16:38 84 70-120 (mg/dL ) Final Calcium 03/14/2020 16:38 9.6 8.4-10.2 (mg/ dL) Final Performing Location [facility] [employer] [address] [facility] [place] [address]
--- OUTSIDE RECORDS SUMMARY | 2023-09-08 00:50 | External Medical Summary | Summary of Care ---
Author Name Unknown Organization [place] [address] Care Team Providers Care Wardrobe Specialist Name Role Phone Hank Oshea MD Primary Care Provider [phone] Reason for Visit * Reason Comments Fax Encounter Details Date Type Department Care Team Description 01/01/2020 Telephone Cardiology, [facility] [place] [address] Wilmar Lay PA-C [address] [facility] [place] [address] [phone] Fax Allergies No Known Allergiesdocumented as of this encounter (statuses as of 01/01/2020) Medications Medication Sig Dispensed Refills Start Date End Date Status VITAMIN D 2000 UNITS PO TABS one tablet daily 0 Active nitroglycerin (NITROSTAT) 0.4 MG SUBLIndications:Coronar y artery disease involving [place] coronary artery of [place] heart without angina pectoris,Myocardial infarction involving other [...] 12.5 MG TabletIndications:Coron richardson artery disease involving [place] coronary artery of [place] heart without angina pectoris,Chronic atrial fibrillation Take 1 Tab by mouth 2 times a day. with food 180 Tab 3 05/24/2019 Active digoxin (LANOXIN) 125 mcg TabletIndications:Coron richardson artery disease involving [place] coronary artery of [place] heart without angina pectoris,Chronic atrial fibrillation TAKE ONE TABLET BY MOUTH ON ., TH., AND SAT. 45 Tab 3 05/24/2019 [...] rafael ilable. documented as of this encounter Miscellaneous Notes * Telephone Encounter - Christine Cochran OSA - 01/01/2020 7:26 AM EST FAX CONFIRMATION RECEIVED * Telephone Encounter - Christine Cochran OSA - 01/01/2020 7:21 AM EST Caller requesting the following information to be faxed: Name/Company of caller: [employer] Information requested to be faxed: Last cardio note Fax number: [phone] Attention to Name/Company: [employer] Any additional information?: n/a documented in this encounter Plan of Treatment Upcoming Encounters Date Type Specialty Care Team Description 01/01/2020 Anticoagulation Pharmacy [facility] [address] [facility] [address] 01/31/2020 Office Visit Cardiology Wilmar Lay PA-C 132 [facility] [place] [address] [phone] 02/01/2020 Pharmacy [facility] 132 [facility] [place] [address] 03/22/2020 Cardiac Studies Cardiology Isi Yu [facility] [place] [address] [phone] 08/12/2020 Office Visit Cardiology [facility] [address] [facility] [place] [address] [phone] Health Maintenance Due Date Last Done Comments [...] Documents on File Type Date Recorded Patient [place] Operator Expl anation Advanced Directive Advanced Directive 01/26/2013 11:57 AM Advanced Directive Advanced Directive Advanced Directive Advanced Directive Advanced Directive
--- OUTSIDE RECORDS SUMMARY | 2023-09-08 00:50 | External Medical Summary | Summary of Care ---
Author Name Unknown Organization [place] [address] Care Team Providers Care [employer] Team Member Name Role Phone Hank Oshea MD Primary Care Provider [phone] Reason for Visit * Reason Comments Patient Assistance Program Encounter Details Date Type Department Care Team Description 11/22/2019 Pharmacy Pharmacy, [facility] [address] [place] [address] Coordinator, Pharmacy Reimbursement, [facility] [address] [place] [address] Heart failure, systolic, due to CAD (HCC)* Allergies No Known Allergiesdocumented as of this encounter (statuses as of 11/24/2019) Medications Medication Sig Dispensed Refills Start Date End Date Status VITAMIN D 2000 UNITS PO TABS one tablet daily 0 Active nitroglycerin (NITROSTAT) 0.4 MG SUBLIndications:Coronar y artery disease involving [place] coronary artery of [place] heart without angina pectoris,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 25 Tab 11 07/21/2016 Active furosemide (LASIX) 20 MG Tablet Take 1 Tab by mouth daily. 90 Tab 3 11/24/2018 Active clopidogrel (PLAVIX) 75 MG TabletIndications:Perma nent atrial fibrillation Take 1 Tab by mouth daily. 90 Tab 3 11/24/2018 Active warfarin sodium (COUMADIN) 5 MG TabletIndications:Atria l fibrillation (HCC) 10 mg F, 5mg all other days 110 Tab 3 03/03/2019 Active Coenzyme Q10 (COQ10) 200 MG CAPS Take by mouth daily. 0 Active carvedilol (COREG) 12.5 MG TabletIndications:Coron richardson artery disease involving [place] coronary artery of [place] heart without angina pectoris,Chronic atrial fibrillation Take 1 Tab by mouth 2 times a day. with food 180 Tab 3 05/24/2019 Active digoxin (LANOXIN) 125 mcg TabletIndications:Coron richardson artery disease involving [place] coronary artery of [place] heart without angina pectoris,Chronic atrial fibrillation TAKE [...] other day 45 Tab 3 08/22/2019 Active documented as of this encounter (statuses as of 11/24/2019) Active Problems Problem Noted Date AICD (automatic cardioverter/defibrillat or) present 02/10/2013 Heart failure, systolic, due to CAD 06/2013 Ischemic cardiomyopathy 01/06/2013 Atrial fibrillation 01/06/2013 CAD (coronary artery disease) 07/25/2012 [place] (myocardial infarction) 07/25/2012 documented as of this encounter (statuses as of 11/24/2019) Immunizations Name Administration Dates Next Due DTaP [...] as of this encounter Progress Notes * Faiza Apple, KEITH - 11/22/2019 8:[address] refill: Company:[employer]-Phone number Id# [id number] [address] [place] [address] Patient Phone Numbers Rx: Entresto Dose:24-26 BID Quantity: 60 Provider: Denis Langston RX:Entresto Dose: 24-26mg BID Quanity 60 Provider Zip Code: Provider Phone Number: Refill # 1 Next Refill:01/12/20 Enrollment Expires Called [employer] and placed Refill -patient was sent refill November 09-3 month supply. Patient had called on the to request. documented in this encounter Plan of Treatment Upcoming Encounters Date Type Specialty Care Team Description 12/18/2019 Cardiac Studies Cardiology [facility] [address] [facility] [address] [phone] 12/19/2019 [facility] [address] 01/01/2020 Anticoagulation Pharmacy [facility] [address] [place] [address] 03/22/2020 Cardiac Studies Cardiology [facility] [address] [facility] [address] [phone] 08/12/2020 Office Visit Cardiology Denis Langston MD [address] [facility] [place] [address] [phone] Health Maintenance Due Date Last Done Comments [...] Documents on File Type Date Recorded Patient Furniture Arranger Expl anation Advanced Directive Advanced Directive 01/26/2013 11:57 AM Advanced Directive Advanced Directive Advanced Directive Advanced Directive Advanced Directive
--- OUTSIDE RECORDS SUMMARY | 2023-09-08 00:50 | External Medical Summary | Summary of Care ---
Author Name Unknown Organization [place] [address] Care Team Providers Care Band Straightener Name Role Phone Hank Oshea MD Primary Care Provider [phone] Reason for Visit * Reason Comments Medication Refill Encounter Details Date Type Department Care Team Description 12/14/2019 Refill Cardiology, [facility] [address] [facility] [place] [address] Wesly Langston MD 132 [facility] [place] [id number] Permanent atrial fibrillation Allergies No Known Allergiesdocumented as of this encounter (statuses as of 12/14/2019) Medications Medication Sig Dispensed Refills Start Date End Date Status VITAMIN D 2000 UNITS PO TABS one tablet daily 0 Active nitroglycerin (NITROSTAT) 0.4 MG SUBLIndications:Cor onary artery disease involving [place] coronary artery of [place] heart without angina pectoris,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 25 Tab 11 07/21/2016 Active furosemide (LASIX) 20 MG Tablet Take 1 Tab by mouth daily. 90 Tab 3 11/24/2018 Active warfarin sodium (COUMADIN) 5 MG TabletIndications:A trial fibrillation (HCC) 10 mg F, 5mg all other days 110 Tab 3 03/03/2019 Active Coenzyme Q10 (COQ10) 200 MG CAPS Take by mouth daily. 0 Active carvedilol (COREG) 12.5 MG TabletIndications:C oronary artery disease involving [place] coronary artery of [place] heart without angina pectoris,Chronic atrial fibrillation Take 1 Tab by mouth 2 times a day. with food 180 Tab 3 05/24/2019 Active digoxin (LANOXIN) 125 mcg TabletIndications:C oronary artery disease involving [place] coronary artery of [place] heart without angina pectoris,Chronic atrial fibrillation TAKE ONE TABLET BY MOUTH ON ., TH., AND SAT. 45 Tab 3 05/24/2019 Active sacubitril-valsarta n 24-26 mg per tab (ENTRESTO) 24-26 MG TABS Take 1 Tab by mouth 2 times a day. 60 Tab 1 07/12/2019 Active rosuvastatin (CRESTOR) 5 MG TabletIndications:H eart [...] mouth daily. 90 Tab 3 12/14/2019 Active clopidogrel (PLAVIX) 75 MG TabletIndications:P ermanent atrial fibrillation Take 1 Tab by mouth daily. 90 Tab 3 11/24/2018 12/14/2019 Discontinued( Refill) documented as of this encounter (statuses as of 12/14/2019) Active Problems Problem Noted Date AICD (automatic cardioverter/defibrillat or) present 02/10/2013 Heart failure, systolic, due to CAD 06/2013 Ischemic cardiomyopathy 01/06/2013 Atrial fibrillation 01/06/2013 CAD (coronary artery disease) 07/25/2012 [place] (myocardial infarction) 07/25/2012 documented as of this encounter (statuses as of 12/14/2019) Immunizations Name Administration Dates Next Due DTaP [...] Travel End No recent travel history rafael katheryn. documented as of this encounter Miscellaneous Notes * Telephone Encounter - Wesly Langston MD - 12/14/2019 12:24 PM EST Signed Prescriptions: Disp Refills clopidogrel (PLAVIX) 75 MG Tablet 90 Tab 3 Sig: Take 1 Tab by mouth daily. Authorizing Provider: WESLY LANGSTON * Telephone Encounter - Rose Mary Newman CPhT - 12/14/2019 11:02 AM EST Pending Prescriptions: Disp Refills clopidogrel (PLAVIX) 75 MG Tablet 90 Tab 3 Sig: Take 1 Tab by mouth daily. Last Office Visit: 08/31/2019 Next Office Visit: 12/18/2019 Scheduled Provider(s): [facility] If no future appointments scheduled, and last appointment is greater than a year ago, please schedule patient for a follow-up appointment Last date the medication was ordered: 11/24/18 Pharmacy: [facility] [address] [address] [place] Is this request for a controlled substance?No [...] Description 12/18/2019 Cardiac Studies Cardiology [facility] [address] [place] [address] [phone] 12/19/2019 Pharmacy Pharmacy [facility], [facility] [address] [place] [address] 01/01/2020 Anticoagulation Pharmacy Radha Cabrera [facility] [address] [place] [address] 01/31/2020 Office Visit Cardiology Wilmar Lay PA-C [address] [address] [phone] 03/22/2020 Cardiac Studies Cardiology [facility] [address] [place] [address] [phone] 08/12/2020 Office Visit Cardiology Wesly Langston MD 132 [facility] [address] [place] [address] [phone] Health Maintenance Due Date Last Done Comments [...] encounter Visit Diagnoses Diagnosis Permanent atrial fibrillation Atrial fibrillation documented in this encounter Advance Directives Documents on File Type Date Recorded Patient Wardrobe Attendant Expl anation Advanced Directive Advanced Directive 01/26/2013 11:57 AM Advanced Directive Advanced Directive Advanced Directive Advanced Directive Advanced Directive
--- OUTSIDE RECORDS SUMMARY | 2023-09-08 00:50 | External Medical Summary | Summary of Care ---
Author Name Unknown Organization [place] [address] Care Team Providers Care Automotive Parts Counter Person Name Role Phone Hank Oshea MD Primary Care Provider [phone] Reason for Visit * Reason Comments Defibrillator Clinic Encounter Details Date Type Department Care Team Description 12/18/2019 Cardiac Studies Cardiology, [facility] [address] [place] [address] [place] [address] [facility] [place] [address] [phone] Ischemic cardiomyopathy*; ICD (implantable cardioverter-defibril lator), single, in situ Allergies No Known Allergiesdocumented as of this encounter (statuses as of 12/19/2019) Medications Medication Sig Dispensed Refills Start Date End Date Status VITAMIN D 2000 UNITS PO TABS one tablet daily 0 Active nitroglycerin (NITROSTAT) 0.4 MG SUBLIndications:Coronar y artery disease involving [place] coronary artery of [place] heart without angina pectoris,Myocardial infarction involving other [...] 12.5 MG TabletIndications:Coron richardson artery disease involving [place] coronary artery of [place] heart without angina pectoris,Chronic atrial fibrillation Take 1 Tab by mouth 2 times a day. with food 180 Tab 3 05/24/2019 Active digoxin (LANOXIN) 125 mcg TabletIndications:Coron richardson artery disease involving [place] coronary artery of [place] heart without angina pectoris,Chronic atrial fibrillation TAKE [...] as of this encounter Progress Notes * Leeann Gates RN - 12/18/2019 9:37 AM EST REMOTE MONITORING TRANSMISSION - DEFIBRILLATOR -- 12/18/2019 TYPE OF VISIT: This is a scheduled remote monitoring transmission. INDICATION: I25.5 Ischemic cardiomyopathy (primary encounter diagnosis) Z95.810 ICD (implantable cardioverter-defibrillator), single, in situ IMPLANTING PHYSICIAN: Dre Gonzalez M.D. IMPLANT/DEVICE HISTORY: 02/02/2013 CURRENT SYSTEM: ICD: Medtronic Model: [id number] SN: [id number] RV lead: Medtronic Model: 6935 SN: [id number] Abandoned leads: None ALERTS/ADVISORIES: None PATIENT EVALUATION: Presenting rhythm : Normal sinus rhythm with intact AV node function. DEVICE EVALUATION: R V Auto threshold: Not measured Sensin.6 mV Pacing impedance:532 ohms Percentage paced:21.4 % HVLI: 51 ohms Battery: 2.91 volts PANCHO: 2.63 volts Charge time: 10.0 seconds Short V-V intervals: 0 Thoracic impedance monitoring: Not available with this device VT/VF episodes (since last evaluation): 0 Past VT/VF episodes: First shock: 02/02/2013 with implant procedure. Most recent shock: same Total ICD shocks/ATP therapy: Appropriate shocks: 1 Inappropriate shocks: 0 ATP therapy: 0 FINAL ICD PARAMETERS: Pacemaker mode/rate: VVI at 40 bpm RV Amplitude: 1.5 volts Pulse width: 0.5 msec VT detection: OFF FVT detection: ON Rate - 188-231 bpm (Burst ( 1 ), 25 joules, 35 joules x 4 ) VF detection: ON Rate - 188 bpm ( ATP during charging, 25 joules, 35 joules x 5 ) Mode switch:Not available IMPRESSION: Normal defibrillator function. Adequate battery reserve Stable sensing thresholds PLAN: The next remote monitoring transmission is scheduled for 03/22/2020. Nurse: Leeann Gates RN AQUACULTURE PROGRAM DIRECTOR: Denis Langston DO This patient was interrogated remotely via the [...] Encounters Date Type Specialty Care Team Description 12/19/2019 Pharmacy [facility] [address] [place] [address] Heart failure, systolic, due to CAD (HCC)* 01/01/2020 Anticoagulation Pharmacy [place] [address] [place] [address] 01/31/2020 Office Visit Cardiology Wilmar Lay PA-C [address] [place] [address] [phone] 02/01/2020 Pharmacy [facility] [address] [facility] [place] [address] 03/22/2020 Cardiac Studies Cardiology [place], Pac[facility] [address] [facility] [address] [phone] 08/12/2020 Office Visit Cardiology Denis Langston MD [address] [place] [address] [phone] Scheduled Orders Name Type Priority Associated Diagnoses Orde r Schedule PACER/ICD REMOTE DATA CAPTURE/TECH REVIEW,90D Procedures Routine Ischemic cardiomyopathy ICD (implantable cardioverter-defibrillat or), single, in situ Ordered: 12/18/2019 Health Maintenance Due Date Last Done Comments [...] Comments DEFIBRILLATOR REMOTE INTERROGATION EVAL/INTERP,TO 90D Routine 12/18/2019 Ischemic cardiomyopathy ICD (implantable cardioverter-defibril lator), single, in situ documented in this encounter Results * DEFIBRILLATOR REMOTE INTERROGATION EVAL/INTERP,TO 90D (12/18/2019) Specimen Narrative Performed At documented in this encounter Visit Diagnoses Diagnosis Ischemic cardiomyopathy- Primary Other specified forms of chronic ischemic heart disease ICD (implantable cardioverter-defibrillator), single, in situ documented in this encounter Advance Directives Documents on File Type Date Recorded Patient R&D Lab Technician Expl anation Advanced Directive Advanced Directive 01/26/2013 11:57 AM Advanced Directive Advanced Directive Advanced Directive Advanced Directive Advanced Directive
--- OUTSIDE RECORDS SUMMARY | 2023-09-08 00:50 | External Medical Summary | Summary of Care ---
Author Name Unknown Organization [place] [address] Care Team Providers Care Secretary Of State Name Role Phone Hank Oshea MD Primary Care Provider [phone] Reason for Visit * Reason Comments Med Request Encounter Details Date Type Department Care Team Description 02/05/2020 Telephone Cardiology, [facility] [address] [facility] [place] [address] Wilmar Lay PA-C [address] [facility] [address] [phone] Med Request Allergies No Known Allergiesdocumented as of this encounter (statuses as of 02/05/2020) Medications Medication Sig Dispensed Refills Start Date End Date Status VITAMIN D 2000 UNITS PO TABS one tablet daily 0 Active nitroglycerin (NITROSTAT) 0.4 MG SUBLIndications:Coron richardson artery disease involving [place] coronary artery of [place] heart without angina pectoris,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 25 Tab 11 07/21/2016 Active warfarin sodium (COUMADIN) 5 MG TabletIndications:Atr ial fibrillation (HCC) 10 mg F, 5mg all other days 110 Tab 3 03/03/2019 Active Coenzyme Q10 (COQ10) 200 MG CAPS Take by mouth daily. 0 Active carvedilol (COREG) 12.5 MG TabletIndications:Cor onary artery disease involving [place] coronary artery of [place] heart without angina pectoris,Chronic atrial fibrillation Take 1 Tab by mouth 2 times a day. with food 180 Tab 3 05/24/2019 Active digoxin (LANOXIN) 125 mcg TabletIndications:Cor onary artery disease involving [place] coronary artery of [place] heart without angina pectoris,Chronic atrial fibrillation TAKE [...] a day. 180 Tab 3 02/05/2020 Active sacubitril-valsartan 24-26 mg per tab (ENTRESTO) 24-26 MG TABS Take 1 Tab by mouth 2 times a day. 60 Tab 5 01/26/2020 02/05/2020 Discontinued (Refill) documented as of this encounter (statuses as of 02/05/2020) Active Problems Problem Noted Date AICD (automatic cardioverter/defibrillat or) present 02/10/2013 Heart failure, systolic, due to CAD 06/2013 Ischemic cardiomyopathy 01/06/2013 Atrial fibrillation 01/06/2013 CAD (coronary artery disease) 07/25/2012 [place] (myocardial infarction) 07/25/2012 documented as of this encounter (statuses as of 02/05/2020) Immunizations Name Administration Dates Next Due DTaP [...] Telephone Encounter - Rafiq Miramontes RN - 02/05/2020 12:10 PM EDT Paper script mailed to the patient today. * Telephone Encounter - Marquis Pratt LPN - 02/05/2020 11:20 AM EDT Order for PAPER script pended. To be mailed to pt's address, as previously listed. * Telephone Encounter - Cindy Chou PHARM Tech - 02/05/2020 10:39 AM EDT Pt's requesting hard copy of his sacubitril-valsartan 24-26 mg per tab (ENTRESTO) 24-26 MG TABS to be mailed to their home at: [address] [facility] [address] Pt's stating she has to mail this along with her check to new pharmacy. Please advise at your earliest convenience. Thank you, Cindy Chou Resaw Carriage Operator [facility] 02/05/2020, 10:41 AM documented in this encounter Plan of Treatment Upcoming Encounters Date Type Specialty Care Team Description 02/12/2020 Anticoagulation Pharmacy [facility] [address] [place] [address] 03/14/2020 Office Visit Cardiology Wilmar Lay PA-C [address] [place] [address] [phone] 03/15/2020 Pharmacy Pharmacy [facility] [place] [address] [place] [address] 03/22/2020 [facility] [address] [address] [phone] 08/12/2020 Office Visit Cardiology Denis Langston MD [address] [place] [address] [phone] Health Maintenance Due Date Last Done Comments [...] Documents on File Type Date Recorded Patient Hvac Services Professional Expl anation Advanced Directive Advanced Directive 01/26/2013 11:57 AM Advanced Directive Advanced Directive Advanced Directive Advanced Directive Advanced Directive Advanced Directive
--- OUTSIDE RECORDS SUMMARY | 2023-09-08 00:50 | External Medical Summary | Summary of Care ---
Author Name Unknown Organization [facility] [place] [address] Care Team Providers Care Letter Of Credit Document Examiner Name Role Phone Hank Oshea MD Primary Care Provider [phone] Reason for Visit * Reason Comments Order Request Encounter Details Date Type Department Care Team Description 03/14/2020 Telephone Pharmacy, [facility] [address] [facility] [place] [address] [facility] [address] [facility] [place] [address] Order Request Allergies No Known Allergiesdocumented as of this encounter (statuses as of 03/14/2020) Medications Medication Sig Dispensed Refills Start Date End Date Status VITAMIN D 2000 UNITS PO TABS one tablet daily 0 Active nitroglycerin (NITROSTAT) 0.4 MG SUBLIndications:Coronary artery disease involving [place] coronary artery of [place] heart without angina pectoris,Myocardial infarction involving other [...] OTHER DAY 45 Tab 5 02/13/2020 Active documented as of this encounter (statuses [...] encounter Miscellaneous Notes * Telephone Encounter - Viola Hernandez, [facility] - 03/14/2020 2:22 PM EDT INR order placed. Viola Hernandez, Pharm D Clinical Pharmacist 03/14/2020, 2:22 PM * Telephone Encounter - Tierney Davidson OSA - 03/14/2020 2:01 PM EDT Lab calling, please place standing PTINR order in Epic. documented in this encounter Plan of Treatment Upcoming Encounters Date Type Specialty Care Team Description 03/14/2020 Anticoagulation Pharmacy , [facility] [address] [place] [address] [phone] 03/15/2020 Pharmacy Pharmacy [facility] [address] 03/22/2020 Cardiac Studies Cardiology [facility] [address] [facility] [address] [phone] 08/12/2020 Office Visit Cardiology [facility]ensi Langston MD [address] [facility] [place] [address] [phone] Pending Results Name Type Priority Associated Diagnoses Date /Time PT/INR Lab Routine Anticoagulation management encounter [facility] 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 therapy 03/14/2020 2:27 PM EDT Scheduled Orders Name Type Priority Associated Diagnoses Orde r Schedule INR [facility] Lab STAT Anticoagulation management encounter [facility] 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 therapy Every 2 Weeks for 26 Occurrences starting 03/14/2020 until 03/14/2021 PT/INR Lab Routine Anticoagulation management encounter [facility] 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 therapy 26 Occurrences starting 03/14/2020 until 03/14/2021 Health Maintenance Due Date Last Done Comments [...] as of this encounter Visit Diagnoses Diagnosis Anticoagulation management encounter Encounter for therapeutic drug monitoring [facility] 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 therapy documented in this encounter Advance Directives Documents on File Type Date Recorded Patient Teacher Public Health Expl anation Advanced Directive Advanced Directive 01/26/2013 11:57 AM Advanced Directive Advanced Directive Advanced Directive Advanced Directive Advanced Directive Advanced Directive
--- OUTSIDE RECORDS SUMMARY | 2023-09-08 00:50 | External Medical Summary | Summary of Care ---
Author Name Unknown Organization [place] [address] Care Team Providers Care Shoe Polisher Name Role Phone Hank Oshea MD Primary Care Provider [phone] Reason for Visit * Reason Comments Medication Refill Encounter Details Date Type Department Care Team Description 01/02/2020 Refill Cardiology, [facility] 132 [facility] [place] [address] Denis Langston MD 132 [place] [address] [phone] Allergies No Known Allergiesdocumented as of this encounter (statuses as of 01/02/2020) Medications Medication Sig Dispensed Refills Start Date End Date Status VITAMIN D 2000 UNITS PO TABS one tablet daily 0 Active nitroglycerin (NITROSTAT) 0.4 MG SUBLIndications:Cor onary artery disease involving lower brule coronary artery of lower brule heart without angina pectoris,Myocardial infarction involving other [...] 12.5 MG TabletIndications:C oronary artery disease involving lower brule coronary artery of lower b[place] heart without angina pectoris,Chronic atrial fibrillation Take 1 Tab by mouth 2 times a day. with food 180 Tab 3 05/24/2019 Active digoxin (LANOXIN) 125 mcg TabletIndications:C oronary artery disease involving lower b[place] coronary artery of lower b[place] heart without angina pectoris,Chronic atrial fibrillation TAKE [...] mouth daily. 90 Tab 3 01/02/2020 Active furosemide (LASIX) 20 MG Tablet Take 1 Tab by mouth daily. 90 Tab 3 11/24/2018 01/02/2020 Discontinued( Refill) documented as of this encounter (statuses as of 01/02/2020) Active Problems Problem Noted Date AICD (automatic cardioverter/defibrillat or) present 02/10/2013 Heart failure, systolic, due to CAD 06/2013 Ischemic cardiomyopathy 01/06/2013 Atrial fibrillation 01/06/2013 CAD (coronary artery disease) 07/25/2012 DE (myocardial infarction) 07/25/2012 documented as of this encounter (statuses as of 01/02/2020) Immunizations Name Administration Dates Next Due DTaP [...] encounter Miscellaneous Notes * Telephone Encounter - Ramirez De Leon DO - 01/02/2020 4:21 PM EST Signed Prescriptions: Disp Refills furosemide (LASIX) 20 MG Tablet 90 Tab 3 Sig: Take 1 Tab by mouth daily. Authorizing Provider: RAMIREZ DE LEON * Telephone Encounter - Rose Mary Newman CPhT - 01/02/2020 4:07 PM EST Pending Prescriptions: Disp Refills furosemide (LASIX) 20 MG Tablet 90 Tab 3 Sig: Take 1 Tab by mouth daily. Last Office Visit: 08/31/2019 Next Office Visit: 01/31/2020 Scheduled Provider(s): Wilmar Lay PA-C If no future appointments scheduled, and last appointment is greater than a year ago, please schedule patient for a follow-up appointment Last date the medication was ordered: 11/24/18 Pharmacy: [facility] [address] [address] Is this request for a [...] Wilmar Lay PA-C [address] [place] [address] [phone] 02/01/2020 Pharmacy Pharmacy [facility], [facility] [address] [place] [address] 02/12/2020 Anticoagulation Pharmacy [facility] [address] [facility] [place] [address] 03/22/2020 Cardiac Studies Cardiology Isi [facility] [address] [place] [address] [phone] 08/12/2020 Office Visit Cardiology Denis Langston MD [address] [place] [address] [phone] Health Maintenance Due Date Last Done Comments [...] Documents on File Type Date Recorded Patient Acid Conditioning Worker Expl anation Advanced Directive Advanced Directive 01/26/2013 11:57 AM Advanced Directive Advanced Directive Advanced Directive Advanced Directive Advanced Directive Advanced Directive
--- OUTSIDE RECORDS SUMMARY | 2023-09-08 00:50 | External Medical Summary | Summary of Care ---
Author Name Unknown Organization [place] [address] Care Team Providers Care Human Resources Assistant Name Role Phone Hank Oshea MD Primary Care Provider [phone] Reason for Visit * Reason Comments Medication Pre-auth Encounter Details Date Type Department Care Team Description 02/09/2020 Telephone Cardiology, [facility] 132 [facility] [place] [address] Wilmar Lay PA-C [address] [facility] [place] [address] [phone] Medication Pre-auth Allergies No Known Allergiesdocumented as of this encounter (statuses as of 02/09/2020) Medications Medication Sig Dispensed Refills Start Date End Date Status VITAMIN D 2000 UNITS PO TABS one tablet daily 0 Active nitroglycerin (NITROSTAT) 0.4 MG SUBLIndications:Coronary artery disease involving apache coronary artery of apache heart without angina pectoris,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 25 Tab 11 07/21/2016 Active warfarin sodium (COUMADIN) 5 MG TabletIndications:Atrial fibrillation (HCC) 10 mg F, 5mg all other days 110 Tab 3 03/03/2019 Active Coenzyme Q10 (COQ10) 200 MG CAPS Take by mouth daily. 0 Active carvedilol (COREG) 12.5 MG TabletIndications:Rascon ry artery disease involving apache coronary artery of apache heart without angina pectoris,Chronic atrial fibrillation Take 1 Tab by mouth 2 times a day. with food 180 Tab 3 05/24/2019 Active digoxin (LANOXIN) 125 mcg TabletIndications:Rascon ry artery disease involving apache coronary artery of apache heart without angina pectoris,Chronic atrial fibrillation TAKE ONE TABLET BY MOUTH ON ., TH., AND SAT. 45 Tab 3 05/24/2019 Active rosuvastatin (CRESTOR) 5 MG TabletIndications:Heart failure, systolic, due to CAD (HCC),Ischemic cardiomyopathy,AICD (automatic cardioverter/defibrillat or) present,CAD (coronary artery disease) Take 1 tablet [...] a day. 180 Tab 3 02/05/2020 Active documented as of this encounter (statuses as of 02/09/2020) Active Problems Problem Noted Date AICD (automatic cardioverter/defibrillat or) present 02/10/2013 Heart failure, systolic, due to CAD 06/2013 Ischemic cardiomyopathy 01/06/2013 Atrial fibrillation 01/06/2013 CAD (coronary artery disease) 07/25/2012 DE (myocardial infarction) 07/25/2012 documented as of this encounter (statuses as of 02/09/2020) Immunizations Name Administration Dates Next Due DTaP [...] encounter Miscellaneous Notes * Telephone Encounter - Jeffrey Gallagher LPN - 02/09/2020 10:04 AM EDT Received paper from [employer] Pt has been approved to receive Entresto at no cost until 10/31/2020. Paper sent to [facility] and copy mailed to pt. documented in this encounter Plan of Treatment Upcoming Encounters Date Type Specialty Care Team Description 03/14/2020 Office Visit Cardiology Wilmar Lay PA-C 132 [place] [address] [phone] 03/14/2020 Laboratory Laboratory [facility] [address] [place] [address] [phone] 03/14/2020 Anticoagulation Pharmacy [place], Coag [facility] [address] [place] [address] 03/15/2020 Pharmacy Pharmacy [facility], [facility] 132 [place] [address] 03/22/2020 Cardiac Studies Cardiology Isi Yu [facility] [place] [address] [phone] 08/12/2020 Office Visit Cardiology Denis Langston MD [address] [place] [address] [phone] Health Maintenance Due Date Last Done Comments [...] Documents on File Type Date Recorded Patient Electric Wheelchair Repairer Expl anation Advanced Directive Advanced Directive 01/26/2013 11:57 AM Advanced Directive Advanced Directive Advanced Directive Advanced Directive Advanced Directive Advanced Directive
--- OUTSIDE RECORDS SUMMARY | 2023-09-08 00:50 | External Medical Summary ---
Author Name Unknown Address Unknown Organization R:IT USE ONLY!!! Laboratory Report Ordering Provider Test Date Status FIDELINA [facility] 01/01/2020 11:39:00 Final Observation Date Value Abnormality Reference (Units ) Status INR BldC 01/01/2020 11:40 2.2 (INR) Fin al Ds INR range/Ds INR det Patient-Rto 01/01/2020 11:40 Final Therapeutic ranges for non-o perative patients:
Prophylaxsis/treatment of DVT: (Range:2.0-3.0)
Treatment of pulmonary embolism:(Range:2.0-3.0)
Prevention of systemic embolism from:
-tissue heart valves
-acute myocardial infarction
-valvular heart disease
-atrial fibrillation
(Range: 2.0-3.0)
Mechanical prosthetic valves: (Range: 2.5-3.5) Performing Location IT USE ONLY!!!
--- OUTSIDE RECORDS SUMMARY | 2023-09-08 00:50 | External Medical Summary ---
Author Name Unknown Address [facility] [place] [address] Phone Organization K01:[facility] [address] [facility] [address] Laboratory Report Ordering Provider Test Date Status ROXANA MAYA 03/14/2020 15:18:00 Final Observation Date Value Abnormality Reference (Units ) Status TSH 03/14/2020 21:19 4.34 Above high normal 0.27- 4.2 (uIU/mL) Final Performing Location [address] [address]
--- OUTSIDE RECORDS SUMMARY | 2023-09-08 00:51 | External Medical Summary | Summary of Care ---
Author Name Unknown Organization [facility] [place] [address] Care Team Providers Care Machine Rebuilder Name Role Phone Hank Oshea MD Primary Care Provider [phone] Reason for Visit * Reason Comments Forms Request [facility] Patient Ass istance Program Encounter Details Date Type Department Care Team Description 11/09/2019 Telephone Cardiology, [facility] 132 [place] [address] Wilmar Lay PA-C 132 [facility] [place] [address] [phone] Forms Request ([facility] Patient Assistance... Allergies No Known Allergiesdocumented as of this encounter (statuses as of 11/21/2019) Medications Medication Sig Dispensed Refills Start Date End Date Status VITAMIN D 2000 UNITS PO TABS one tablet daily 0 Active nitroglycerin (NITROSTAT) 0.4 MG SUBLIndications:Coronar y artery disease involving coqu[place] coronary artery of [place] heart without angina pectoris,Myocardial infarction involving other [...] 12.5 MG TabletIndications:Coron richardson artery disease involving co[place] coronary artery of [place]qu[place] heart without angina pectoris,Chronic atrial fibrillation Take 1 Tab by mouth 2 times a day. with food 180 Tab 3 05/24/2019 Active digoxin (LANOXIN) 125 mcg TabletIndications:Coron richardson artery disease involving coqu[place] coronary artery of coqu[place] heart without angina pectoris,Chronic atrial fibrillation TAKE [...] Tab by mouth daily. 3 07/30/2019 Active documented as of this encounter (statuses as of 11/21/2019) Active Problems Problem Noted Date AICD (automatic cardioverter/defibrillat or) present 02/10/2013 Heart failure, systolic, due to CAD 06/2013 Ischemic cardiomyopathy 01/06/2013 Atrial fibrillation 01/06/2013 CAD (coronary artery disease) 07/25/2012 DE (myocardial infarction) 07/25/2012 documented as of this encounter (statuses as of 11/21/2019) Immunizations Name Administration Dates Next Due DTaP [...] Telephone Encounter - Yina Elizondo RN - 11/21/2019 10:42 AM EST Forms mailed back as requested. Copy placed for scanning. * Telephone Encounter - Marquis Pratt LPN - 11/09/2019 9:30 AM EST Fax rec'd from [employer] patient assistance program for Entresto. Forms awaiting provider signature. Mail to pt's home address upon completion of pre scriber portion. documented in this encounter Plan of Treatment Upcoming Encounters Date Type Specialty Care Team Description 11/22/2019 Pharmacy Oil Rig Driller, Pharmacy Reimbursement, [facility] [address] [facility] [place] [address] [phone] 12/18/2019 Cardiac Studies Cardiology Movcharan, Pacer [address] [address] [phone] 12/19/2019 [address]acy [address] [address] 01/01/2020 Anticoagulation Pharmacy [facility] [address] [facility] [address] 03/22/2020 Cardiac Studies Cardiology Movall Gattmanr [address] [address] [phone] Health Maintenance Due Date Last Done Comments [...] on File Type Date Recorded Patient Software Engineer Backend Expl anation Advanced Directive Advanced Directive 01/26/2013 11:57 AM Advanced Directive Advanced Directive Advanced Directive Advanced Directive Advanced Directive
--- OUTSIDE RECORDS SUMMARY | 2023-09-08 00:51 | External Medical Summary | Summary of Care ---
Author Name Unknown Organization [place] [address] Care Team Providers Care Rehab Office Coordinator Name Role Phone Hank Oshea MD Primary Care Provider [phone] Reason for Visit * Reason Comments Dosage Adjustment In Person (Anticoag Cl inic) Encounter Details Date Type Department Care Team Description 11/20/2019 Anticoagulation Pharmacy, [facility] [address] [facility] [place] [address] [place] [facility] [address] [facility] [place] [address] Myocardial infarction, unspecified PR type, unspecified artery (HCC)*; Atrial fibrillation, unspecified type (HCC); Anticoagulation management encounter; superintendent terminal 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 therapy Allergies No Known Allergiesdocumented as of this encounter (statuses as of 11/20/2019) Medications Medication Sig Dispensed Refills Start Date End Date Status VITAMIN D 2000 UNITS PO TABS one tablet daily 0 Active nitroglycerin (NITROSTAT) 0.4 MG SUBLIndications:Coronar y artery disease involving [place] coronary artery of [place] heart without angina pectoris,Myocardial infarction involving other [...] 12.5 MG TabletIndications:Coron richardson artery disease involving [place] coronary artery of [place] heart without angina pectoris,Chronic atrial fibrillation Take 1 Tab by mouth 2 times a day. with food 180 Tab 3 05/24/2019 Active digoxin (LANOXIN) 125 mcg TabletIndications:Coron richardson artery disease involving [place] coronary artery of [place] heart without angina pectoris,Chronic atrial fibrillation TAKE [...] as of this encounter (statuses as of 11/20/2019) Active Problems Problem Noted Date AICD (automatic cardioverter/defibrillat or) present 02/10/2013 Heart failure, systolic, due to CAD 06/2013 Ischemic cardiomyopathy 01/06/2013 Atrial fibrillation 01/06/2013 CAD (coronary artery disease) 07/25/2012 PR (myocardial infarction) 07/25/2012 documented as of this encounter (statuses as of 11/20/2019) Immunizations Name Administration Dates Next Due DTaP [...] Progress Notes * Anibal Mcfarland RPh - 11/20/2019 11:23 AM EST Medication Therapy Disease Management - Anticoagulation Lucian Larson 1935 Description 5mg daily (5mg tabs) Patient Findings Negatives: Signs/symptoms of thrombosis, Signs/symptoms of bleeding, Change in health, Change in alcohol use, Change in activity, Upcoming invasive procedure, Missed doses, Extra doses, Change in medications, Change in diet/appetite, Bruising INR Result As of 11/20/2019 INR goal: 2.0-3.0 INR used for dosin.1 (11/20/2019) Warfarin Plan As of 11/20/2019 Full warfarin instructions: 5 mg every day No change documented: Anibal Raymundo RPh Next INR check: 01/01/2020 Repeat PT/INR in 6 week(s) Weekly dose: not changed Anibal Caceres RPh, CACP, CDE Clinical Pharmacist Medication Therapy Management [facility] 11/20/2019 11:29 AM documented in this encounter Plan of Treatment Upcoming Encounters Date Type Specialty Care Team Description 11/22/2019 Pharmacy Punch Operator, Pharmacy [facility], [facility] [address] [facility] [place] [address] 12/18/2019 Cardiac Studies Cardiology Isi Yu [facility] 132 [facility] [place] [address] [phone] 12/19/2019 Pharmacy Pharmacy [facility] [address] [facility] [place] [address] 01/01/2020 Anticoagulation Pharmacy Fonda, [facility] Clinic Scenery [address] [place] [address] 03/22/2020 Cardiac Studies Cardiology Isi Yu [facility] 132 [facility] [place] [address] [phone] Health Maintenance Due Date Last Done Comments Zoster Vaccines (1 of 2) 1984 Pneumococcal Vaccine: 65+ Years (1 of 2 - PCV13) 1999 *DEPRESSION SCREENING,ANNUAL FOR PTS 12 AND OVER 12/02/2014 Influenza Vaccine (FLU shot) (#1) 2019 07/29/2017, 08/08/2012 DIABETES SCREEN EVERY 3 YRS-AGE 45 AND ABOVE 09/12/2022 09/12/2019, 05/24/2019, 01/11/2018, Additional history exists DTaP,Tdap,and Td Vaccines (2 - Tdap) 07/29/2027 07/29/2017 MENINGOCOCCAL (MENACTRA) Aged Out No longer eligible based on patient's age to complete this topic documented as of this encounter Implants Not on filedocumented as of this encounter Procedures Procedure Name Priority Date/Time Associated Diagnosis Comments INR FINGERSTICK STAT 11/20/2019 11:25 AM EST Atrial fibrillation, unspecified type (HCC) Myocardial infarction, unspecified PR type, unspecified artery (HCC) Anticoagulation management encounter superintendent terminal 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 therapy documented in this encounter Results * INR FINGERSTICK (11/20/2019 11:25 AM EST) FINGERSTICK INR 2.1 INR [facility] THERAPEUTIC RANGE Comment: Therapeutic ranges for non-operative patients: Prophylaxsis/treatmen t of DVT: (Range:2.0-3.0) Treatment of pulmonary embolism:(Range:2.0-3 .0) Prevention of systemic embolism from: -tissue heart valves -acute myocardial infarction -valvular heart disease -atrial fibrillation (Range: 2.0-3.0) Mechanical prosthetic valves: (Range: 2.5-3.5) [facility] Specimen Performing Organization Address City/State/Zipcod e Phone Number [facility], [address] [facility] [place] [address] documented in this encounter Visit Diagnoses Diagnosis Myocardial infarction, unspecified PR type, unspecified artery (HCC)- Primary Atrial fibrillation, unspecified type (HCC) Anticoagulation management encounter Encounter for therapeutic drug monitoring prison 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 therapy documented in this encounter Advance Directives Documents on File Type Date Recorded Patient Strand Galvanizer Expl anation Advanced Directive Advanced Directive 01/26/2013 11:57 AM Advanced Directive Advanced Directive Advanced Directive Advanced Directive Advanced Directive
--- OUTSIDE RECORDS SUMMARY | 2023-09-08 00:51 | External Medical Summary | Summary of Care ---
Author Name Unknown Organization [place] [address] Care Team Providers Care Inspector Hairspring Truing Name Role Phone Hank Oshea MD Primary Care Provider [phone] Reason for Visit * Reason Comments Defibrillator Clinic home monitor showin g as disconnected Encounter Details Date Type Department Care Team Description 11/09/2019 Telephone Cardiology, [facility] [address] [facility] [place] [address] Denis Langston MD [address] [facility] [place] [address] [phone] Defibrillator Clinic (home monitor showing... Allergies No Known Allergiesdocumented as of this encounter (statuses as of 11/09/2019) Medications Medication Sig Dispensed Refills Start Date End Date Status VITAMIN D 2000 UNITS PO TABS one tablet daily 0 Active nitroglycerin (NITROSTAT) 0.4 MG SUBLIndications:Coronar y artery disease involving [place] coronary artery of [place] heart without angina pectoris,Myocardial infarction involving other [...] 12.5 MG TabletIndications:Coron richardson artery disease involving [place] coronary artery of [place] heart without angina pectoris,Chronic atrial fibrillation Take 1 Tab by mouth 2 times a day. with food 180 Tab 3 05/24/2019 Active digoxin (LANOXIN) 125 mcg TabletIndications:Coron richardson artery disease involving [place] coronary artery of newtok heart without angina pectoris,Chronic atrial fibrillation TAKE [...] as of this encounter (statuses as of 11/09/2019) Active Problems Problem Noted Date AICD (automatic cardioverter/defibrillat or) present 02/10/2013 Heart failure, systolic, due to CAD 06/2013 Ischemic cardiomyopathy 01/06/2013 Atrial fibrillation 01/06/2013 CAD (coronary artery disease) 07/25/2012 GA (myocardial infarction) 07/25/2012 documented as of this encounter (statuses as of 11/09/2019) Immunizations Name Administration Dates Next Due DTaP [...] encounter Miscellaneous Notes * Telephone Encounter - Addi Vaughn TECH - 11/09/2019 4:19 PM EST I called the patient to ask about his monitor showing on the [employer] network site. He went and checked it and everything was plugged in. Nothing was working. I gave him the number for [employer] support to call and see if they can troubleshoot his home monitor. He is going to call. documented in this encounter Plan of Treatment Upcoming Encounters Date Type Specialty Care Team Description 11/20/2019 Anticoagulation Pharmacy Deborah, Coag Clinic Scenery [address] [place] [address] 11/22/2019 Pharmacy Boot Trimmer, Pharmacy [facility], [facility] [address] [facility] [place] [address] [phone] 12/18/2019 Cardiac Studies Cardiology Julianealllidia, Pacer [facility] 132 [facility] [place] [address] [phone] 12/19/2019 Pharmacy Pharmacy [facility] [address] [facility] [place] [address] 01/05/2020 Office Visit Cardiology [facility] [place] [address] [phone] 03/22/2020 Cardiac Studies Cardiology Julianealley, Pacer [facility] [address] [facility] [place] [address] [phone] Health Maintenance Due Date Last Done Comments [...] Documents on File Type Date Recorded Patient Porcelain Enamel Installer Expl anation Advanced Directive Advanced Directive 01/26/2013 11:57 AM Advanced Directive Advanced Directive Advanced Directive Advanced Directive Advanced Directive
--- OUTSIDE RECORDS SUMMARY | 2023-09-08 00:51 | External Medical Summary | Summary of Care ---
Author Name Unknown Organization [facility] [address] Care Team Providers Care Crm System Administrator Name Role Phone Hank Oshea MD Primary Care Provider [phone] Reason for Visit * Reason Comments Forms Request Encounter Details Date Type Department Care Team Description 09/25/2019 Telephone Cardiology, [facility] 132 [facility] [place] [address] Denis Langston MD 132 [facility] [place] [address] Forms Request Allergies No Known Allergiesdocumented as of this encounter (statuses as of 09/25/2019) Medications Medication Sig Dispensed Refills Start Date End Date Status VITAMIN D 2000 UNITS PO TABS one tablet daily 0 Active nitroglycerin (NITROSTAT) 0.4 MG SUBLIndications:Coronar y artery disease involving [place] band coronary artery of prairie band heart without angina pectoris,Myocardial infarction involving other [...] 12.5 MG TabletIndications:Coron richardson artery disease involving [place] band coronary artery of prairie band heart without angina pectoris,Chronic atrial fibrillation Take 1 Tab by mouth 2 times a day. with food 180 Tab 3 05/24/2019 Active digoxin (LANOXIN) 125 mcg TabletIndications:Coron richardson artery disease involving pra[place] band coronary artery of prairie band heart without angina pectoris,Chronic atrial fibrillation TAKE ONE TABLET BY MOUTH ON ., THURS., AND SAT. 45 Tab 3 05/24/2019 [...] as of this encounter (statuses as of 09/25/2019) Active Problems Problem Noted Date AICD (automatic cardioverter/defibrillat or) present 02/10/2013 Heart failure, systolic, due to CAD 06/2013 Ischemic cardiomyopathy 01/06/2013 Atrial fibrillation 01/06/2013 CAD (coronary artery disease) 07/25/2012 WI (myocardial infarction) 07/25/2012 documented as of this encounter (statuses as of 09/25/2019) Immunizations Name Administration Dates Next Due DTaP [...] Telephone Encounter - Jeffrey Gallagher LPN - 09/25/2019 11:34 AM EST Called patient today regarding his packet for [employer] Patient Assistance Program for his Entresto.We filled out as much as we can on our end, he needs to fill out the rest. Patient did not answer, left a message for him to tell him the packet is ready and to call back if he had any questions. documented in this encounter Plan of Treatment Upcoming Encounters Date Type Specialty Care Team Description 10/16/2019 Anticoagulation Pharmacy [place], [facility] [address] [place] [address] 10/18/2019 Pharmacy Pharmacy [facility] 132 [facility] [place] [address] 11/22/2019 Pharmacy Computer Repair Instructor, Pharmacy [facility] [address] [facility] [place] [address] 12/18/2019 Cardiac Studies Cardiology [facility] [place] [address] [phone] 01/05/2020 Office Visit Cardiology Denis Langston MD [facility] [place] [address] [phone] 03/22/2020 Cardiac Studies Cardiology [facility] [place] [address] [phone] Health Maintenance Due Date Last Done Comments [...] Documents on File Type Date Recorded Patient Fingerprint Expert Expl anation Advanced Directive Advanced Directive 01/26/2013 11:57 AM Advanced Directive Advanced Directive Advanced Directive Advanced Directive Advanced Directive
--- OUTSIDE RECORDS SUMMARY | 2023-09-08 00:51 | External Medical Summary | Summary of Care ---
Author Name Unknown Organization [place] [address] Care Team Providers Care Remote Sensing Technician Name Role Phone Hank Oshea MD Primary Care Provider [phone] Reason for Visit * Reason Comments Forms Request Encounter Details Date Type Department Care Team Description 09/25/2019 Telephone Cardiology, [facility] 132 [facility] [place] [address] Denis Langston MD 132 [place] [address] Forms Request Allergies No Known Allergiesdocumented [...] encounter Miscellaneous Notes * Telephone Encounter - Amy Garcia OSA - 09/25/2019 1:29 PM EST PT returning phone call asking if this paperwork can be mailed to him. Pt verbally verified the address in chart. Please mail. * Telephone Encounter - Jeffrey Gallagher LPN [...] Specialty Care Team Description 10/16/2019 Anticoagulation Pharmacy [place], [facility] [address] [facility] [address] 10/18/2019 Pharmacy Pharmacy [address] [place] [address] 11/22/2019 Pharmacy Machine Sprayer, Pharmacy [facility], [address] [place] [address] [phone] 12/18/2019 Cardiac Studies Cardiology [facility]i Yu [facility] 132 [facility] [address] [phone] 01/05/2020 Office Visit Cardiology Denis Langston MD 132 [facility] [place] [address] [phone] 03/22/2020 Cardiac Studies Cardiology Gigi [facility] [place] [address] [phone] Health Maintenance Due Date Last Done Comments [...] Documents on File Type Date Recorded Patient Kennel Worker Expl anation Advanced Directive Advanced Directive 01/26/2013 11:57 AM Advanced Directive Advanced Directive Advanced Directive Advanced Directive Advanced Directive
--- OUTSIDE RECORDS SUMMARY | 2023-09-08 00:51 | External Medical Summary | Summary of Care ---
Author Name Unknown Organization [place] [address] Care Team Providers Care Change Release Manager Name Role Phone Hank Oshea MD Primary Care Provider [phone] Reason for Visit * Reason Comments Forms Request Encounter Details Date Type Department Care Team Description 09/25/2019 Telephone Cardiology, [facility] 132 [facility] [place] [address] Denis Langston MD 132 [place] [address] Forms Request Allergies No Known Allergiesdocumented as of this encounter (statuses as of 09/25/2019) Medications Medication Sig Dispensed Refills Start Date End Date Status VITAMIN D 2000 UNITS PO TABS one tablet daily 0 Active nitroglycerin (NITROSTAT) 0.4 MG SUBLIndications:Coronar y artery disease involving [place] coronary artery of [place] heart without angina pectoris,Myocardial infarction involving other [...] 12.5 MG TabletIndications:Coron richardson artery disease involving [place] coronary artery of [place] heart without angina pectoris,Chronic atrial fibrillation Take 1 Tab by mouth 2 times a day. with food 180 Tab 3 05/24/2019 Active digoxin (LANOXIN) 125 mcg TabletIndications:Coron richardson artery disease involving [place] coronary artery of [place] heart without angina pectoris,Chronic atrial fibrillation TAKE [...] Specialty Care Team Description 10/16/2019 Anticoagulation Pharmacy [place], [facility] [address] [facility] [address] 10/18/2019 Pharmacy Pharmacy [address] [place] [address] 11/22/2019 Pharmacy Flying Squad Worker, Pharmacy [facility], [address] [place] [address] [phone] 12/18/2019 Cardiac Studies Cardiology Isi [facility] 132 [facility] [address] [phone] 01/05/2020 Office Visit Cardiology Denis Langston MD 132 [facility] [place] [address] [phone] 03/22/2020 Cardiac Studies Cardiology Gigi [facility] 132 [facility] [place] [address] [phone] Health Maintenance Due Date Last Done Comments [...] Documents on File Type Date Recorded Patient Citrus Picker Expl anation Advanced Directive Advanced Directive 01/26/2013 11:57 AM Advanced Directive Advanced Directive Advanced Directive Advanced Directive Advanced Directive
--- OUTSIDE RECORDS SUMMARY | 2023-09-08 00:51 | External Medical Summary ---
Author Name Unknown Address Unknown Organization R:IT USE ONLY!!! Laboratory Report Ordering Provider Test Date Status FIDELINA [facility]BSON [facility] 10/16/2019 11:15:00 Final Observation Date Value Abnormality Reference Status INR BldC 10/16/2019 11:16 3.3 Fin al Ds INR range/Ds INR det Patient-Rto 10/16/2019 11:16 Final Therapeutic ranges for non-o perative patients: Prophylaxsis/treatment of DVT: (Range:2.0-3.0) Treatment of pulmonary embolism:(Range:2.0-3.0) Prevention of systemic embolism from: -tissue heart valves -acute myocardial infarction -valvular heart disease -atrial fibrillation (Range: 2.0-3.0) Mechanical prosthetic valves: (Range: 2.5-3.5) Performing Location IT USE ONLY!!!
--- OUTSIDE RECORDS SUMMARY | 2023-09-08 00:51 | External Medical Summary | Summary of Care ---
Author Name Unknown Organization [place] [address] Care Team Providers Care Truss Assembler Name Role Phone Hank Oshea MD Primary Care Provider [phone] Reason for Visit * Reason Comments Defibrillator Clinic Encounter Details Date Type Department Care Team Description 09/13/2019 Cardiac Studies Cardiology, [facility] 132 [facility] [place] [address] [place], [facility] 132 [facility] [place] [address] [phone] Ischemic cardiomyopathy*; AICD (automatic cardioverter/defibril lator) present Allergies No Known Allergiesdocumented as of this encounter (statuses as of 09/14/2019) Medications Medication Sig Dispensed Refills Start Date End Date Status VITAMIN D 2000 UNITS PO TABS one tablet daily 0 Active nitroglycerin (NITROSTAT) 0.4 MG SUBLIndications:Coronar y artery disease involving [place] coronary artery of [place] heart without angina pectoris,Myocardial infarction involving other [...] 12.5 MG TabletIndications:Coron richardson artery disease involving [place] coronary artery of [place] heart without angina pectoris,Chronic atrial fibrillation Take 1 Tab by mouth 2 times a day. with food 180 Tab 3 05/24/2019 Active digoxin (LANOXIN) 125 mcg TabletIndications:Coron richardson artery disease involving [place] coronary artery of [place] heart without angina pectoris,Chronic atrial fibrillation TAKE [...] as of this encounter (statuses as of 09/14/2019) Active Problems Problem Noted Date AICD (automatic cardioverter/defibrillat or) present 02/10/2013 Heart failure, systolic, due to CAD 06/2013 Ischemic cardiomyopathy 01/06/2013 Atrial fibrillation 01/06/2013 CAD (coronary artery disease) 07/25/2012 [place] (myocardial infarction) 07/25/2012 documented as of this encounter (statuses as of 09/14/2019) Immunizations Name Administration Dates Next Due DTaP [...] Progress Notes * Addi Vaughn TECH - 09/13/2019 9:44 AM EST REMOTE MONITORING TRANSMISSION - DEFIBRILLATOR -- 09/13/2019 TYPE OF VISIT: This is a scheduled remote monitoring transmission. INDICATION: I25.5 Ischemic cardiomyopathy (primary encounter diagnosis) Z95.810 AICD (automatic cardioverter/defibrillator) present IMPLANTING PHYSICIAN: Dr. Gonzalez IMPLANT/DEVICE HISTORY: February 02, 2013 CURRENT SYSTEM: ICD: Medtronic, model - Eric II VR [id number] SN: [id number] RV Lead: Medtronic, Model - [id number] SN: [id number]: 02-02-2013 Abandoned leads: none ALERTS/ADVISORIES:none PATIENT EVALUATION: Presenting rhythm : Normal sinus rhythm with intact AV node function. DEVICE EVALUATION: R V Pacing threshold:-----volts at ----msec Sensin.5mV Pacing impedance:494ohms Percentage paced:0.2% Battery:2.94 volts PANCHO:2.63volts Charge time:10seconds HVLI: 58 ohms Short V-V intervals: 0 PVC singles: 276.4 / hour in a 98 day period (this is a decrease ) Mode switch episodes:0 Monitored episodes: 1 VT nonsustained episodes of which the longest is 2 seconds with a ventricularrate of 211 bpm VT/VF episodes (since last evaluation): 0 Past VT/VF episodes: First shock: 0 Most recent shock: 0 Total ICD shocks/ATP therapy: Appropriate shocks: 0 Inappropriate shocks: 0 ATP therapy: 0 FINAL ICD PARAMETERS: Pacemaker mode/rate:VVIat 40bpm RV Amplitude: 1.5Volts Pulse width:0. 5msec VT detection: Off FVT detection: 188-231 bpm (Burst x 1, 25J, 35J x 4) VF detection: >188 bpm (ATP during charging, 25J, 35J x 5) Mode switch:OFF IMPRESSION: Normal defibrillator function. Normal pacemaker function Adequate battery reserve PLAN: The next remote monitoring transmission is scheduled for 3 months. Nurse: GHULAM Pino RN DIABETES: Dr. Langston This patient was interrogated remotely [...] Specialty Care Team Description 10/16/2019 Anticoagulation Pharmacy [place], [facility]ery [address] [place] [address] 10/18/2019 Pharmacy Pharmacy [facility] [address] 11/22/2019 Pharmacy Bleach Boiler Packer, Pharmacy [facility], [facility] [address] [facility] [place] [address] [phone] 12/18/2019 Cardiac Studies Cardiology [facility]i [facility] [address] [facility] [place] [address] [phone] 01/05/2020 Office Visit Cardiology Denis Langston MD [address] [facility] [place] [address] [phone] 03/22/2020 Cardiac Studies Cardiology [facility]i Yu [facility] [address] [facility] [place] [address] [phone] Scheduled Orders Name Type Priority Associated Diagnoses Orde r Schedule PACER/ICD REMOTE DATA CAPTURE/TECH REVIEW,90D Procedures Routine Ischemic cardiomyopathy AICD (automatic cardioverter/defibrillat or) present Ordered: 09/13/2019 Health Maintenance Due Date Last Done Comments [...] Comments DEFIBRILLATOR REMOTE INTERROGATION EVAL/INTERP,TO 90D Routine 09/13/2019 Ischemic cardiomyopathy AICD (automatic cardioverter/defibril lator) present documented in this encounter Results * DEFIBRILLATOR REMOTE INTERROGATION EVAL/INTERP,TO 90D (09/13/2019) Specimen Narrative Performed At documented in this encounter Visit Diagnoses Diagnosis Ischemic cardiomyopathy- Primary Other specified forms of chronic ischemic heart disease AICD (automatic cardioverter/defibrillator) present Automatic implantable cardiac defibrillator in situ documented in this encounter Advance Directives Documents on File Type Date Recorded Patient Battery Test Engineer Expl anation Advanced Directive Advanced Directive 01/26/2013 11:57 AM Advanced Directive Advanced Directive Advanced Directive Advanced Directive Advanced Directive
--- OUTSIDE RECORDS SUMMARY | 2023-09-08 00:51 | External Medical Summary | Summary of Care ---
Author Name Unknown Organization [place] [address] Care Team Providers Care Administrator Name Role Phone Hank Oshea MD Primary Care Provider [phone] Reason for Visit * Reason Comments Dosage Adjustment Via Phone (anticoag Cl inic) Congestive Heart Failure Encounter Details Date Type Department Care Team Description 10/18/2019 Pharmacy Pharmacy, [facility] [address] [facility] 132 [place] [address] Atrial fibrillation, unspecified type (HCC)* Allergies No Known Allergiesdocumented as of this encounter (statuses as of 10/18/2019) Medications Medication Sig Dispensed Refills Start Date End Date Status VITAMIN D 2000 UNITS PO TABS one tablet daily 0 Active nitroglycerin (NITROSTAT) 0.4 MG SUBLIndications:Coronar y artery disease involving [place] coronary artery of [place] heart without angina pectoris,Myocardial infarction involving other [...] 12.5 MG TabletIndications:Coron richardson artery disease involving [place] coronary artery of [place] heart without angina pectoris,Chronic atrial fibrillation Take 1 Tab by mouth 2 times a day. with food 180 Tab 3 05/24/2019 Active digoxin (LANOXIN) 125 mcg TabletIndications:Coron richardson artery disease involving [place] coronary artery of [place] heart without angina pectoris,Chronic atrial fibrillation TAKE [...] as of this encounter (statuses as of 10/18/2019) Active Problems Problem Noted Date AICD (automatic cardioverter/defibrillat or) present 02/10/2013 Heart failure, systolic, due to CAD 06/2013 Ischemic cardiomyopathy 01/06/2013 Atrial fibrillation 01/06/2013 CAD (coronary artery disease) 07/25/2012 [place] (myocardial infarction) 07/25/2012 documented as of this encounter (statuses as of 10/18/2019) Immunizations Name Administration Dates Next Due DTaP [...] Progress Notes * Viola Hernandez, [facility] - 10/18/2019 9:20 AM EST No updates in status at this time from a cardiology prespective. Follow up in 2 months for status check. Viola Hernandez, Pharm D Clinical Pharmacist 10/18/2019, 9:21 AM documented in this encounter Plan of Treatment Upcoming Encounters Date Type Specialty Care Team Description 11/20/2019 Anticoagulation Pharmacy [place], [facility] Scenery [address] [place] [address] 11/22/2019 Pharmacy Front Office Developer, Pharmacy [facility], [facility] [address] [facility] [place] [address] [phone] 12/18/2019 Cardiac Studies Cardiology Isi Yu [facility] 132 [facility] [place] [address] [phone] 12/19/2019 Pharmacy Pharmacy [facility] 132 [facility] [place] [address] 01/05/2020 Office Visit Cardiology Denis Langston MD 132 [facility] [place] [address] [phone] 03/22/2020 Cardiac Studies Cardiology Isi Yu [facility] 132 [facility] [place] [address] [phone] Health Maintenance Due Date Last Done Comments [...] Documents on File Type Date Recorded Patient Unit Control Clerk Expl anation Advanced Directive Advanced Directive 01/26/2013 11:57 AM Advanced Directive Advanced Directive Advanced Directive Advanced Directive Advanced Directive
--- OUTSIDE RECORDS SUMMARY | 2023-09-08 00:51 | External Medical Summary ---
Author Name Unknown Address Unknown Organization R:IT USE ONLY!!! Laboratory Report Ordering Provider Test Date Status FIDELINA HOBSON [facility] 11/20/2019 11:25:00 Final Observation Date Value Abnormality Reference (Units ) Status INR BldC 11/20/2019 11:27 2.1 (INR) Fin al Ds INR range/Ds INR det Patient-Rto 11/20/2019 11:27 Final Therapeutic ranges for non-o perative patients:
Prophylaxsis/treatment of DVT: (Range:2.0-3.0)
Treatment of pulmonary embolism:(Range:2.0-3.0)
Prevention of systemic embolism from:
-tissue heart valves
-acute myocardial infarction
-valvular heart disease
-atrial fibrillation
(Range: 2.0-3.0)
Mechanical prosthetic valves: (Range: 2.5-3.5) Performing Location IT USE ONLY!!!
--- OUTSIDE RECORDS SUMMARY | 2023-09-08 00:51 | External Medical Summary | Summary of Care ---
Author Name Unknown Organization [place] [address] Care Team Providers Care Hoop Punch And Coiler Operator Name Role Phone Hank Oshea MD Primary Care Provider [phone] Reason for Visit * Reason Comments Forms Request Encounter Details Date Type Department Care Team Description 09/25/2019 Telephone Cardiology, [facility] 132 [facility] [place] [address] Denis Langston MD 132 [place] [address] Forms Request Allergies No Known Allergiesdocumented as of this encounter (statuses as of 09/27/2019) Medications Medication Sig Dispensed Refills Start Date End Date Status VITAMIN D 2000 UNITS PO TABS one tablet daily 0 Active nitroglycerin (NITROSTAT) 0.4 MG SUBLIndications:Coronar y artery disease involving [place] coronary artery of [place] heart without angina pectoris,Myocardial infarction involving other [...] 12.5 MG TabletIndications:Coron richardson artery disease involving [place] coronary artery of [place] heart without angina pectoris,Chronic atrial fibrillation Take 1 Tab by mouth 2 times a day. with food 180 Tab 3 05/24/2019 Active digoxin (LANOXIN) 125 mcg TabletIndications:Coron richardson artery disease involving [place] coronary artery of [place] heart without angina pectoris,Chronic atrial fibrillation TAKE [...] as of this encounter (statuses as of 09/27/2019) Active Problems Problem Noted Date AICD (automatic cardioverter/defibrillat or) present 02/10/2013 Heart failure, systolic, due to CAD 06/2013 Ischemic cardiomyopathy 01/06/2013 Atrial fibrillation 01/06/2013 CAD (coronary artery disease) 07/25/2012 VT (myocardial infarction) 07/25/2012 documented as of this encounter (statuses as of 09/27/2019) Immunizations Name Administration Dates Next Due DTaP [...] Telephone Encounter - Jeffrey Gallagher LPN - 09/27/2019 10:36 AM EST Letters were placed in mail today, sent to address in chart. * Telephone Encounter - Amy Garcia OSA [...] Specialty Care Team Description 10/16/2019 Anticoagulation Pharmacy [place], [facility] [address] [facility] [address] 10/18/2019 [address] [address] 11/22/2019 Pharmacy Energy Administrator, Pharmacy [facility], [facility] [address] [place] [address] [place] [address] [phone] 12/18/2019 Cardiac Studies Cardiology [facility] [address] [phone] 01/05/2020 Office Visit Cardiology Denis Langston MD 132 [facility] [place] [address] [phone] 03/22/2020 [facility] [address] [place] [address] [phone] Health Maintenance Due Date Last Done Comments [...] Documents on File Type Date Recorded Patient Filling Hauler Expl anation Advanced Directive Advanced Directive 01/26/2013 11:57 AM Advanced Directive Advanced Directive Advanced Directive Advanced Directive Advanced Directive
--- OUTSIDE RECORDS SUMMARY | 2023-09-08 00:51 | External Medical Summary | Summary of Care ---
Author Name Unknown Organization [place] [address] Care Team Providers Care Professional Shopper Name Role Phone Hank Oshea MD Primary Care Provider [phone] Reason for Visit * Reason Comments Dosage Adjustment In Person (Anticoag Cl inic) Encounter Details Date Type Department Care Team Description 10/16/2019 Anticoagulation Pharmacy, [facility] 200 [facility] [place] [address] [place] [facility] [address] [facility] [place] [address] Myocardial infarction, unspecified SD type, unspecified artery (HCC)*; Atrial fibrillation, unspecified type (HCC); Anticoagulation management encounter; long term care pharmacist 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 therapy Allergies No Known Allergiesdocumented as of this encounter (statuses as of 10/16/2019) Medications Medication Sig Dispensed Refills Start Date End Date Status VITAMIN D 2000 UNITS PO TABS one tablet daily 0 Active nitroglycerin (NITROSTAT) 0.4 MG SUBLIndications:Coronar y artery disease involving [place] coronary artery of [...] 12.5 MG TabletIndications:Coron richardson artery disease involving [place] coronary artery of [place] heart without angina pectoris,Chronic atrial fibrillation Take 1 Tab by mouth 2 times a day. with food 180 Tab 3 05/24/2019 Active digoxin (LANOXIN) 125 mcg TabletIndications:Coron richardson artery disease involving [place] coronary artery of [place] heart without angina pectoris,Chronic atrial fibrillation TAKE [...] as of this encounter (statuses as of 10/16/2019) Active Problems Problem Noted Date AICD (automatic cardioverter/defibrillat or) present 02/10/2013 Heart failure, systolic, due to CAD 06/2013 Ischemic cardiomyopathy 01/06/2013 Atrial fibrillation 01/06/2013 CAD (coronary artery disease) 07/25/2012 SD (myocardial infarction) 07/25/2012 documented as of this encounter (statuses as of 10/16/2019) Immunizations Name Administration Dates Next Due DTaP [...] Progress Notes * Anibal Mcfarland RPh - 10/16/2019 11:11 AM EST Medication Therapy Disease Management - Anticoagulation Lucian Larson Dylan 1935 Description 10mg F, 5mg all other days (5mg tabs) Patient Findings Negatives: Signs/symptoms of thrombosis, Signs/symptoms of bleeding, Change in health, Change in alcohol use, Change in activity, Upcoming invasive procedure, Missed doses, Extra doses, Change in medications, Change in diet/appetite, Bruising INR Result As of 10/16/2019 INR goal: 2.0-3.0 INR used for dosin.3! (10/16/2019) Warfarin Plan As of 10/16/2019 Full warfarin instructions: 10/16: Hold; Otherwise 5 mg every day Next INR check: 11/20/2019 Repeat PT/INR in 5 week(s) Weekly dose: decreased Anibal Caceres RPh, CACP, CDE Clinical Pharmacist Medication Therapy Management Clinic 10/16/2019 11:18 AM documented in this encounter Plan of Treatment Upcoming Encounters Date Type Specialty Care Team Description 10/18/2019 Pharmacy Pharmacy [facility] 132 [facility] [place] [address] 11/20/2019 Anticoagulation Pharmacy [place] [facility] [address] [place] [address] 11/22/2019 Pharmacy Continuing Education Instructor, Pharmacy [facility] [address] [facility] [place] [address] [phone] 12/18/2019 Cardiac Studies Cardiology [facility] [address] [place] [address] [phone] 01/05/2020 Office Visit Cardiology Denis Langston MD 132 [facility] [place] [address] [phone] 03/22/2020 Cardiac Studies Cardiology [facility], [address] [place] [address] [phone] Scheduled Orders Name Type Priority Associated Diagnoses Orde r Schedule INR FINGERSTICK Lab STAT Atrial fibrillation, unspecified type (HCC) Myocardial infarction, unspecified SD type, unspecified artery (HCC) Anticoagulation management encounter long term care pharmacist 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 therapy Every 2 Weeks for 26 Occurrences starting 10/16/2019 until 10/15/2020, 1 completed Health Maintenance Due Date Last [...] Date/Time Associated Diagnosis Comments INR FINGERSTICK STAT 10/16/2019 11:15 AM EST Atrial fibrillation, unspecified type (HCC) Myocardial infarction, unspecified SD type, unspecified artery (HCC) Anticoagulation management encounter long term care pharmacist 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 therapy documented in this encounter Results * INR FINGERSTICK (10/16/2019 11:15 AM EST) FINGERSTICK INR 3.3 INR [facility] THERAPEUTIC RANGE Comment: Therapeutic ranges for non-operative patients: Prophylaxsis/treatmen t of DVT: (Range:2.0-3.0) Treatment of pulmonary embolism:(Range:2.0-3 .0) Prevention of systemic embolism from: -tissue heart valves -acute myocardial infarction -valvular heart disease -atrial fibrillation (Range: 2.0-3.0) Mechanical prosthetic valves: (Range: 2.5-3.5) [facility] Specimen Performing Organization Address City/State/[facility] Phone Number [facility], [address] [place] [address] documented in this encounter Visit Diagnoses Diagnosis Myocardial infarction, unspecified SD type, unspecified artery (HCC)- Primary Atrial fibrillation, unspecified type (HCC) Anticoagulation management encounter Encounter for therapeutic drug monitoring long term care pharmacist 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 therapy documented in this encounter Advance Directives Documents on File Type Date Recorded Patient Fur Trimmer Expl anation Advanced Directive Advanced Directive 01/26/2013 11:57 AM Advanced Directive Advanced Directive Advanced Directive Advanced Directive Advanced Directive
--- OUTSIDE RECORDS SUMMARY | 2023-09-08 00:52 | External Medical Summary | Summary of Care ---
Author Name Unknown Organization [facility] [place] [address] Care Team Providers Care Food And Beverage Service Manager Name Role Phone Hank Oshea MD Primary Care Provider [phone] Reason for Visit * Reason Comments Dosage Adjustment Via Phone (anticoag Cl inic) Congestive Heart Failure Encounter Details Date Type Department Care Team Description 09/13/2019 Pharmacy Pharmacy, [facility] [place] [address] [facility] [place] [address] Heart failure, systolic, due to CAD (HCC)* Allergies No Known Allergiesdocumented as of this encounter (statuses as of 09/13/2019) Medications Medication Sig Dispensed Refills Start Date End Date Status VITAMIN D 2000 UNITS PO TABS one tablet daily 0 Active nitroglycerin (NITROSTAT) 0.4 MG SUBLIndications:Coronar y artery disease involving [place] coronary artery of iroquois heart without angina pectoris,Myocardial infarction involving other [...] 12.5 MG TabletIndications:Coron richardson artery disease involving [place] coronary artery of iroquois heart without angina pectoris,Chronic atrial fibrillation Take 1 Tab by mouth 2 times a day. with food 180 Tab 3 05/24/2019 Active digoxin (LANOXIN) 125 mcg TabletIndications:Coron richardson artery disease involving [place]ois coronary artery of iroquois heart without angina pectoris,Chronic atrial fibrillation TAKE [...] as of this encounter (statuses as of 09/13/2019) Active Problems Problem Noted Date AICD (automatic cardioverter/defibrillat or) present 02/10/2013 Heart failure, systolic, due to CAD 06/2013 Ischemic cardiomyopathy 01/06/2013 Atrial fibrillation 01/06/2013 CAD (coronary artery disease) 07/25/2012 CT (myocardial infarction) 07/25/2012 documented as of this encounter (statuses as of 09/13/2019) Immunizations Name Administration Dates Next Due DTaP [...] this encounter Progress Notes * Viola Hernandez, [facility] - 09/13/2019 10:40 AM EST BP Readings from Last 3 Encounters: 08/31/19 112/70 05/24/19 120/72 11/24/18 112/66 Pulse Readings from Last 3 Encounters: 08/31/19 50 05/24/19 68 11/24/18 84 Wt Readings from Last 3 Encounters: 08/31/19 77.6 kg (171 lb) 05/24/19 75.9 kg (167 lb 6.4 oz) 11/24/18 76.7 kg (169 lb) CREATININE(mg/dL) Boris Dt/Tm Resulted Value Status 09/12/19 11:41A 09/12/19 1.2 FINAL 05/24/19 1:32P 05/24/19 1.2 FINAL 01/11/18 11:41A 01/11/18 1.3* FINAL POTASSIUM(mmol/L) Boris Dt/Tm Resulted Value Status 09/12/19 11:41A 09/12/19 4.9 FINAL 05/24/19 1:32P 05/24/19 5.0 FINAL 01/11/18 11:41A 01/11/18 4.5 FINAL DIGOXIN(ng/mL) Boris Dt/Tm Resulted Value Status 05/24/19 1:32P 05/24/19 0.4* FINAL 10/27/16 2:27P 10/27/16 <0.3* FINAL 05/16/15 10:57A 05/16/15 0.3* FINAL Patient Phone Numbers Spoke to patient via phone. Reviewed above bmp results that were WNL. Recommending to continue entresto at this time. Patient will contact clinic with any questions/concerns. Will follow up in 4 weeks with status check. Viola Hernandez, Pharm D Clinical Pharmacist 09/13/2019, 10:43 AM documented in this encounter Plan of Treatment Upcoming Encounters Date Type Specialty Care Team Description 10/16/2019 [facility] [place] [address] [place] [address] 10/18/2019 Pharmacy Pharmacy [facility] 132 [facility] [place] [address] 11/22/2019 Pharmacy Bulb Tester, Pharmacy Reimbursement, [facility] [address] [facility] [place] [address] [phone] 12/18/2019 Cardiac Studies Cardiology Isi Yu [facility] 132 [facility] [place] [address] [phone] 01/05/2020 Office Visit Cardiology Denis Langston MD 132 [facility] [place] [address] [phone] 03/22/2020 Cardiac Studies Cardiology [facility] 132 [facility] [place] [address] [phone] Health Maintenance Due Date Last Done Comments [...] Documents on File Type Date Recorded Patient Commercial Sales Consultant Expl anation Advanced Directive Advanced Directive 01/26/2013 11:57 AM Advanced Directive Advanced Directive Advanced Directive Advanced Directive Advanced Directive
--- OUTSIDE RECORDS SUMMARY | 2023-09-08 00:52 | External Medical Summary | Summary of Care ---
Author Name Unknown Organization [place] [address] Care Team Providers Care Social Work Therapist Name Role Phone Hank Oshea MD Primary Care Provider [phone] Reason for Visit * Reason Comments Medication Refill Encounter Details Date Type Department Care Team Description 08/22/2019 Refill Cardiology, [facility] [address] [place] [address] Wilmar Lay PA-C [address] [facility] [place] [address] [phone] Heart failure, systolic, due to CAD (HCC); Ischemic cardiomyopathy; AICD (automatic cardioverter/defibrillat or) present; CAD (coronary artery disease) Allergies No Known Allergiesdocumented as of this encounter (statuses as of 08/22/2019) Medications Medication Sig Dispensed Refills Start Date End Date Status VITAMIN D 2000 UNITS PO TABS one tablet daily 0 Active nitroglycerin (NITROSTAT) 0.4 MG SUBLIndications:Co ronary artery disease involving [place] coronary artery of [place] heart without angina pectoris,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 25 Tab 11 07/21/2016 Active levothyroxine (SYNTHROID) 75 MCG Tablet Take 50 mcg by mouth daily first thing in the morning. (at least 30 min prior to breakfast or other meds) 0 Active ramipril (ALTACE) 2.5 MG Capsule Take 1 Cap by mouth daily. 90 Cap 3 11/03/2018 Active furosemide (LASIX) 20 MG Tablet Take 1 Tab by mouth daily. 90 Tab 3 11/24/2018 Active clopidogrel (PLAVIX) 75 MG TabletIndications: Permanent atrial fibrillation Take 1 Tab by mouth daily. 90 Tab 3 11/24/2018 Active warfarin sodium (COUMADIN) 5 MG TabletIndications: Atrial fibrillation (HCC) 10 mg F, 5mg all other days 110 Tab 3 03/03/2019 Active Coenzyme Q10 (COQ10) 200 MG CAPS Take by mouth daily. 0 Active carvedilol (COREG) 12.5 MG TabletIndications: Coronary artery disease involving [place] coronary artery of [place] heart without angina pectoris,Chronic atrial fibrillation Take 1 Tab by mouth 2 times a day. with food 180 Tab 3 05/24/2019 Active digoxin (LANOXIN) 125 mcg TabletIndications: Coronary artery disease involving [place] coronary artery of [place] heart without angina pectoris,Chronic atrial fibrillation TAKE ONE TABLET BY MOUTH ON ., ., AND SAT. 45 Tab 3 05/24/2019 Active sacubitril-valsart an 24-26 mg per tab (ENTRESTO) 24-26 MG TABS Take 1 Tab by mouth 2 times a day. 60 Tab 1 07/12/2019 Active rosuvastatin (CRESTOR) 5 MG TabletIndications: Heart failure, systolic, due to CAD (HCC),Ischemic cardiomyopathy,AIC D (automatic cardioverter/defib rillator) present,CAD (coronary artery disease) Take 1 tablet every other day 45 Tab 3 08/22/2019 Active rosuvastatin (CRESTOR) 5 MG TabletIndications: Heart failure, systolic, due to CAD (HCC),Ischemic cardiomyopathy,AIC D (automatic cardioverter/defib rillator) present,CAD (coronary artery disease) Take 1 tablet every other day 45 Tab 3 07/24/2019 08/22/2019 Discontinued documented as of this encounter (statuses as of 08/22/2019) Active Problems Problem Noted Date AICD (automatic cardioverter/defibrillat or) present 02/10/2013 Heart failure, systolic, due to CAD 06/2013 Ischemic cardiomyopathy 01/06/2013 Atrial fibrillation 01/06/2013 CAD (coronary artery disease) 07/25/2012 [place] (myocardial infarction) 07/25/2012 documented as of this encounter (statuses as of 08/22/2019) Immunizations Name Administration Dates Next Due DTaP [...] Telephone Encounter - Wesly Mancia MD - 08/22/2019 4:10 PM EDT Signed Prescriptions: Disp Refills rosuvastatin (CRESTOR) 5 MG Tablet 45 Tab 3 Sig: Take 1 tablet every other day Authorizing Provider: WESLY MANCIA * Telephone Encounter - Jasmina Jennings, computer networker - 08/22/2019 3:29 PM EDT Pending Prescriptions: Disp Refills rosuvastatin (CRESTOR) 5 MG Tablet 45 Tab 3 Sig: Take 1 tablet every other day Last Office Visit: 05/24/2019 Next Office Visit: 09/13/2019 Scheduled Provider(s): [facility] If no future appointments scheduled, and last appointment is greater than a year ago, please schedule patient for a follow-up appointment Last date the medication was ordered: 07/24/2019 [facility] [address] [address] Is this request for a controlled substance?No Urine Drug Screen:No results found for this or any previous visit. Patient Phone Numbers Labs: Lab Results Component Value Date/Time CREAT 1.2 05/24/2019 01:32 PM POTASSIUM 5.0 05/24/2019 01:32 PM TSH 2.62 05/24/2019 01:32 PM LDLCALC 68 01/11/2018 11:41 AM LDLDIRECT 72 05/24/2019 01:32 PM ALT 21 05/24/2019 01:32 PM HGBA1C 5.4 06/30/2016 10:59 AM documented in this encounter Plan of Treatment Upcoming Encounters Date Type Specialty Care Team Description 08/24/2019 Pharmacy Pharmacy [facility], [facility] 132 [facility] [place] [address] 08/29/2019 Pharmacy Manager Copy, Pharmacy [facility], [address] [place] [address] [phone] 09/04/2019 Pharmacy Pharmacy [place], [facility] 200 [facility] [place] [place] [address] 09/13/2019 Cardiac Studies Cardiology [facility] [address] [facility] [place] [address] [phone] 12/18/2019 Cardiac Studies Cardiology [facility] 132 [facility] [place] [address] [phone] 01/05/2020 Office Visit Cardiology Wesly Mancia MD 132 [facility] [place] [address] [phone] 03/22/2020 Cardiac Studies [facility] [address] [facility] [place] [address] [phone] Health Maintenance Due Date Last Done Comments Pneumococcal Vaccine: 65+ Years (1 of 2 - PCV13) 1999 *DEPRESSION SCREENING,ANNUAL FOR PTS 12 AND OVER 12/02/2014 Influenza Vaccine (FLU shot) (#1) 2019 07/29/2017, 08/08/2012 DIABETES SCREEN EVERY 3 YRS-AGE 45 AND ABOVE 05/24/2022 05/24/2019, 01/11/2018, 09/21/2017, Additional history exists DTaP,Tdap,and Td Vaccines (2 [...] Coronary atherosclerosis of unspecified type of vessel, [place] or graft documented in this encounter Advance Directives Documents on File Type Date Recorded Patient Director Web Expl anation Advanced Directive Advanced Directive 01/26/2013 11:57 AM Advanced Directive Advanced Directive Advanced Directive Advanced Directive
--- OUTSIDE RECORDS SUMMARY | 2023-09-08 00:52 | External Medical Summary | Summary of Care ---
Author Name Unknown Organization [place] [address] Care Team Providers Care Feeder Operator Automatic Name Role Phone Hank Oshea MD Primary Care Provider [phone] Reason for Visit * Reason Comments Dosage Adjustment Via Phone (anticoag Cl inic) Congestive Heart Failure Encounter Details Date Type Department Care Team Description 08/24/2019 Pharmacy Pharmacy, [facility] [address] [facility] [address] [facility] [place] [address] Heart failure, systolic, due to CAD (HCC)* Allergies No Known Allergiesdocumented as of this encounter (statuses as of 08/24/2019) Medications Medication Sig Dispensed Refills Start Date End Date Status VITAMIN D 2000 UNITS PO TABS one tablet daily 0 Active nitroglycerin (NITROSTAT) 0.4 MG SUBLIndications:Rascon ry artery disease involving [place] coronary artery of [...] 3 11/24/2018 Active clopidogrel (PLAVIX) 75 MG TabletIndications:Perm anent atrial fibrillation Take 1 Tab by mouth daily. 90 Tab 3 11/24/2018 Active warfarin sodium (COUMADIN) 5 MG TabletIndications:Atri al fibrillation (HCC) 10 mg F, 5mg all other days 110 Tab 3 03/03/2019 Active Coenzyme Q10 (COQ10) 200 MG CAPS Take by mouth daily. 0 Active carvedilol (COREG) 12.5 MG TabletIndications:Salo nary artery disease involving [place] coronary artery of [place] heart without angina pectoris,Chronic atrial fibrillation Take 1 Tab by mouth 2 times a day. with food 180 Tab 3 05/24/2019 Active digoxin (LANOXIN) 125 mcg TabletIndications:Salo nary artery disease involving [place] coronary artery of [place]zan[place] heart without angina pectoris,Chronic atrial fibrillation TAKE ONE TABLET BY MOUTH ON ., ., AND SAT. 45 Tab 3 05/24/2019 Active sacubitril-valsartan 24-26 mg per tab (ENTRESTO) 24-26 MG TABS Take 1 Tab by mouth 2 times a day. 60 Tab 1 07/12/2019 Active rosuvastatin (CRESTOR) 5 MG TabletIndications:Hear t failure, systolic, due to CAD (HCC),Ischemic cardiomyopathy,AICD (automatic cardioverter/defibrill ator) present,CAD (coronary artery disease) Take 1 tablet every other day 45 Tab 3 08/22/2019 Active documented as of this encounter (statuses as of 08/24/2019) Active Problems Problem Noted Date AICD (automatic cardioverter/defibrillat or) present 02/10/2013 Heart failure, systolic, due to CAD 06/2013 Ischemic cardiomyopathy 01/06/2013 Atrial fibrillation 01/06/2013 CAD (coronary artery disease) 07/25/2012 MD (myocardial infarction) 07/25/2012 documented as of this encounter (statuses as of 08/24/2019) Immunizations Name Administration Dates Next Due DTaP [...] this encounter Progress Notes * Viola Hernandez [facility] - 08/24/2019 8:11 AM EDT No updates at this time. Follow up in 1 week to see if Entresto will be coming from [employer]. Viola Hernandez, Pharm D Clinical Pharmacist 08/24/2019, 8:12 AM Electronically signed by Viola Hernandez [facility] at 08/24/2019 8:13 AM EDT documented in this encounter Plan of Treatment Upcoming Encounters Date Type Specialty Care Team Description 08/29/2019 Pharmacy Incident Response Manager, Pharmacy [facility], [facility] [address] [facility] [place] [address] [phone] 08/31/2019 Pharmacy Pharmacy [facility] 132 [facility] [place] [address] 09/04/2019 Pharmacy Pharmacy [place], [facility] [address] [facility] [address] 09/13/2019 Cardiac Studies Cardiology [facility] [place] 132 [facility] [place] [address] [phone] 12/18/2019 Cardiac Studies [facility] [address] [facility] [place] [address] [phone] 01/05/2020 Office Visit Cardiology Denis Langston MD 132 [facility] [place] [address] [phone] 03/22/2020 Cardiac Studies Cardiology Isi Yu [facility] [place] 132 [facility] [place] [address] [phone] Health Maintenance Due Date Last Done Comments [...] Documents on File Type Date Recorded Patient Family Support Coordinator Expl anation Advanced Directive Advanced Directive 01/26/2013 11:57 AM Advanced Directive Advanced Directive Advanced Directive Advanced Directive
--- OUTSIDE RECORDS SUMMARY | 2023-09-08 00:52 | External Medical Summary | Summary of Care ---
Author Name Unknown Organization [facility] [address] Care Team Providers Care Body Repairer Name Role Phone Hank Oshea MD Primary Care Provider [phone] Reason for Visit * Reason Comments Defibrillator Clinic Encounter Details Date Type Department Care Team Description 09/13/2019 Cardiac Studies Cardiology, [facility] 132 [place] [address] [place], Pac[facility] 132 [facility] [place] [address] [phone] Ischemic cardiomyopathy*; AICD (automatic cardioverter/defibril lator) present Allergies No Known Allergiesdocumented as of this encounter (statuses as of 09/13/2019) Medications Medication Sig Dispensed Refills Start Date End Date Status VITAMIN D 2000 UNITS PO TABS one tablet daily 0 Active nitroglycerin (NITROSTAT) 0.4 MG SUBLIndications:Coronar y artery disease involving [place] coronary artery of [place] heart without angina pectoris,Myocardial infarction involving other [...] 12.5 MG TabletIndications:Coron richardson artery disease involving [place] coronary artery of [place] heart without angina pectoris,Chronic atrial fibrillation Take 1 Tab by mouth 2 times a day. with food 180 Tab 3 05/24/2019 Active digoxin (LANOXIN) 125 mcg TabletIndications:Coron richardson artery disease involving [place] coronary artery of [place] heart without angina pectoris,Chronic atrial fibrillation TAKE [...] ICD: Medtronic, model - Eric II VR [id number] SN: [id number] RV Lead: Medtronic, Model - [id number] SN: [id number]: 02-02-2013 Abandoned leads: none ALERTS/ADVISORIES:none PATIENT EVALUATION: [...] scheduled for 3 months. Nurse: GHULAM Pino DIE CAST DIE MAKER: Dr. Langsotn This patient was interrogated remotely via the [...] Encounters Date Type Specialty Care Team Description 09/13/2019 Pharmacy [facility] [address] Heart failure, systolic, due to CAD (HCC)* 10/16/2019 Anticoagulation Pharmacy [place], [facility] [address] [facility] [address] 10/18/2019 [facility] [address] 11/22/[address] Jumper, Pharmacy Reimbursement, [address] [place] [address] [phone] 12/18/2019 Cardiac Studies Cardiology [facility] [place] [address] [phone] 01/05/2020 Office Visit Cardiology Denis [facility] [place] [address] [phone] 03/22/2020 Cardiac Studies Cardiology G[facility] [place] [address] [phone] Scheduled Orders Name Type Priority Associated Diagnoses Orde r Schedule DEFIBRILLATOR REMOTE INTERROGATION EVAL/INTERP,TO 90D Procedures Routine Ischemic cardiomyopathy AICD (automatic cardioverter/defibril lator) present Ordered: 09/13/2019 PACER/ICD REMOTE DATA CAPTURE/TECH REVIEW,90D Procedures Routine Ischemic cardiomyopathy AICD (automatic cardioverter/defibril lator) present Ordered: 09/13/2019 Health Maintenance Due Date [...] Documents on File Type Date Recorded Patient Bale Opener Expl anation Advanced Directive Advanced Directive 01/26/2013 11:57 AM Advanced Directive Advanced Directive Advanced Directive Advanced Directive Advanced Directive
--- OUTSIDE RECORDS SUMMARY | 2023-09-08 00:52 | External Medical Summary | Summary of Care ---
Author Name Unknown Organization [place] [address] Care Team Providers Care Supervisor Rose Grading Name Role Phone Hank Oshea MD Primary Care Provider [phone] Reason for Visit * Reason Comments Dosage Adjustment In Person (Anticoag Cl inic) Encounter Details Date Type Department Care Team Description 09/04/2019 Anticoagulation Pharmacy, [facility] 200 [facility] [place] [address] [place] [facility] 200 [facility] [place] [address] Myocardial infarction, unspecified ID type, unspecified artery (HCC)*; Atrial fibrillation, unspecified type (HCC) Allergies No Known Allergiesdocumented as of this encounter (statuses as of 09/04/2019) Medications Medication Sig Dispensed Refills Start Date End Date Status VITAMIN D 2000 UNITS PO TABS one tablet daily 0 Active nitroglycerin (NITROSTAT) 0.4 MG SUBLIndications:Coronar y artery disease involving [place] coronary artery of [...] 12.5 MG TabletIndications:Coron richardson artery disease involving [place] coronary artery of [place] heart without angina pectoris,Chronic atrial fibrillation Take 1 Tab by mouth 2 times a day. with food 180 Tab 3 05/24/2019 Active digoxin (LANOXIN) 125 mcg TabletIndications:Coron richardson artery disease involving [place] coronary artery of [place] heart without angina pectoris,Chronic atrial fibrillation TAKE [...] as of this encounter (statuses as of 09/04/2019) Active Problems Problem Noted Date AICD (automatic cardioverter/defibrillat or) present 02/10/2013 Heart failure, systolic, due to CAD 06/2013 Ischemic cardiomyopathy 01/06/2013 Atrial fibrillation 01/06/2013 CAD (coronary artery disease) 07/25/2012 ID (myocardial infarction) 07/25/2012 documented as of this encounter (statuses as of 09/04/2019) Immunizations Name Administration Dates Next Due DTaP [...] Progress Notes * Anibal Mcfarland RPh - 09/04/2019 11:16 AM EST Medication Therapy Disease Management - Anticoagulation Patient: Lucian Larson Jr. : 1935 Current Warfarin Dose As of 09/04/2019 Warfarin maintenance plan: 10 mg (5 mg x 2) every Fri; 5 mg (5 mg x 1) all other days Patient-Reported Symptoms: Patient Findings Positives: Change in medications Comments: Encresto started, Ramipril stopped INR Result As of 09/04/2019 INR goal: 2.0-3.0 INR used for dosin.1! (09/04/2019) Warfarin Plan As of 09/04/2019 Full warfarin instructions: 10 mg every Fri; 5 mg all other days Next INR check: Additional Dosing Information: Description 10mg F, 5mg all other days (5mg tabs) Anibal Caceres [facility] Clinical Pharmacist 09/04/2019, 11:22 AM documented in this encounter Plan of Treatment Upcoming Encounters Date Type Specialty Care Team Description 09/11/2019 Pharmacy Pharmacy Amanda Morrell [facility] 132 [facility] [place] [address] 09/13/2019 Cardiac Studies Cardiology Iis Yu [facility] 132 [facility] [place] [address] [phone] 10/16/2019 Anticoagulation Pharmacy [place], [facility] [address] [place] [address] 11/22/2019 Pharmacy Health Sciences Department Chair, Pharmacy [facility], [facility] [address] [facility] [place] [address] [phone] 12/18/2019 Cardiac Studies Cardiology Nirali Yur [facility] 132 [facility] [place] [address] [phone] 01/05/2020 Office Visit Cardiology Denis Langston MD [address] [place] [address] [phone] 03/22/2020 Cardiac Studies Cardiology Isi Yu [facility] 132 [place] [address] [phone] Health Maintenance Due Date Last Done Comments [...] encounter Visit Diagnoses Diagnosis Myocardial infarction, unspecified ID type, unspecified artery (HCC)- Primary Atrial fibrillation, unspecified type (HCC) documented in this encounter Advance Directives Documents on File Type Date Recorded Patient Debt Collection Specialist Expl anation Advanced Directive Advanced Directive 01/26/2013 11:57 AM Advanced Directive Advanced Directive Advanced Directive Advanced Directive Advanced Directive
--- OUTSIDE RECORDS SUMMARY | 2023-09-08 00:52 | External Medical Summary | Summary of Care ---
Author Name Unknown Organization [place] [address] Care Team Providers Care Sash Repairer Name Role Phone Hank Oshea MD Primary Care Provider [phone] Reason for Visit * Reason Comments Dosage Adjustment Via Phone (anticoag Cl inic) Congestive Heart Failure Encounter Details Date Type Department Care Team Description 08/31/2019 Pharmacy Pharmacy, [facility] [address] [facility] [place] [address] Heart failure, systolic, due to CAD (HCC)* Allergies No Known Allergiesdocumented as of this encounter (statuses as of 08/31/2019) Medications Medication Sig Dispensed Refills Start Date End Date Status VITAMIN D 2000 UNITS PO TABS one tablet daily 0 Active nitroglycerin (NITROSTAT) 0.4 MG SUBLIndications:Co ronary artery disease involving [place] coronary artery of [place] heart without angina pectoris,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 25 Tab 11 07/21/2016 Active levothyroxine (SYNTHROID) 75 MCG Tablet Take 50 mcg by mouth daily first thing in the morning. (at least 30 min prior to breakfast or other meds) 0 Active furosemide (LASIX) 20 MG Tablet Take [...] 12.5 MG TabletIndications: Coronary artery disease involving [place] coronary artery of [place] heart without angina pectoris,Chronic atrial fibrillation Take 1 Tab by mouth 2 times a day. with food 180 Tab 3 05/24/2019 Active digoxin (LANOXIN) 125 mcg TabletIndications: Coronary artery disease involving [place] coronary artery of [place] heart without angina pectoris,Chronic atrial fibrillation TAKE [...] other day 45 Tab 3 08/22/2019 Active ramipril (ALTACE) 2.5 MG Capsule Take 1 Cap by mouth daily. 90 Cap 3 11/03/2018 08/31/2019 Discontinued documented as of this encounter (statuses as of 08/31/2019) Active Problems Problem Noted Date AICD (automatic cardioverter/defibrillat or) present 02/10/2013 Heart failure, systolic, due to CAD 06/2013 Ischemic cardiomyopathy 01/06/2013 Atrial fibrillation 01/06/2013 CAD (coronary artery disease) 07/25/2012 ID (myocardial infarction) 07/25/2012 documented as of this encounter (statuses as of 08/31/2019) Immunizations Name Administration Dates Next Due DTaP [...] encounter Progress Notes * Viola Hernandez [facility] - 08/31/2019 11:52 AM EDT Patient Phone Numbers Spoke to patient and via phone. They received entresto but had not started yet. Recommend to start rampril now. Patient has not taken yet today. Recommending 36 hour washout period for entresto starting now. Patient will then start entresto BID on 09/03. Patient is agreeable to this plan. Will follow up in 1 week from start date and recommend bmp within 2 weeks of start date. Viola Hernandez, Pharm D Clinical Pharmacist 08/31/2019, 11:58 AM documented in this encounter Plan of Treatment Upcoming Encounters Date Type Specialty Care Team Description 08/31/2019 Office Visit Cardiology Wilmar Lay PA-C [facility] [place] [address] [phone] 09/04/2019 Pharmacy Pharmacy [place], [facility] 200 [facility] [address] 09/11/2019 Pharmacy Pharmacy [facility] 132 [facility] [place] [address] 09/13/2019 Cardiac Studies Cardiology Gigi Pacer [facility] [address] [place] [address] [phone] 11/22/2019 Pharmacy Medical Insurance Coder, Pharmacy [facility], [facility] 531 [facility] [place] [address] [phone] 12/18/2019 Cardiac Studies Cardiology Gigi [facility] [place] [address] [phone] 01/05/2020 Office Visit Cardiology Denis Langston MD [address] [place] [address] [phone] 03/22/2020 Cardiac Studies Cardiology Isi Yu [facility] 132 [place] [address] [phone] Scheduled Orders Name Type Priority Associated Diagnoses Orde r Schedule BASIC METAB PANEL, BMP Lab Routine Heart failure, systolic, due to CAD (HCC) Expected: 09/07/2019 (Approximate), Expires: 08/31/2020 Health Maintenance Due Date Last Done Comments [...] Documents on File Type Date Recorded Patient Seam Closer Expl anation Advanced Directive Advanced Directive 01/26/2013 11:57 AM Advanced Directive Advanced Directive Advanced Directive Advanced Directive
--- OUTSIDE RECORDS SUMMARY | 2023-09-08 00:52 | External Medical Summary | Summary of Care ---
Author Name Unknown Organization [place] [address] Care Team Providers Care Director Of Market Analysis Name Role Phone Hank Oshea MD Primary Care Provider [phone] Reason for Visit * Reason Comments Patient Assistance Program Encounter Details Date Type Department Care Team Description 08/28/2019 Pharmacy Pharmacy, [facility] [address] [place] [address] Coordinator, Pharmacy Reimbursement, [facility] [address] [place] [address] Coronary artery disease involving [place] coronary artery of [place] heart without angina pectoris* Allergies No Known Allergiesdocumented as of this encounter (statuses as of 08/28/2019) Medications Medication Sig Dispensed Refills Start Date End Date Status VITAMIN D 2000 UNITS PO TABS one tablet daily 0 Active nitroglycerin (NITROSTAT) 0.4 MG SUBLIndications:Rascon ry artery disease involving [place] coronary artery of [place] heart without angina pectoris,Myocardial infarction involving other [...] 12.5 MG TabletIndications:Salo nary artery disease involving [place] coronary artery of [place] heart without angina pectoris,Chronic atrial fibrillation Take 1 Tab by mouth 2 times a day. with food 180 Tab 3 05/24/2019 Active digoxin (LANOXIN) 125 mcg TabletIndications:Salo nary artery disease involving [place] coronary artery of [place] heart without angina pectoris,Chronic atrial fibrillation TAKE [...] as of this encounter (statuses as of 08/28/2019) Active Problems Problem Noted Date AICD (automatic cardioverter/defibrillat or) present 02/10/2013 Heart failure, systolic, due to CAD 06/2013 Ischemic cardiomyopathy 01/06/2013 Atrial fibrillation 01/06/2013 CAD (coronary artery disease) 07/25/2012 [place] (myocardial infarction) 07/25/2012 documented as of this encounter (statuses as of 08/28/2019) Immunizations Name Administration Dates Next Due DTaP [...] of this encounter Progress Notes * Faiza Apple OSA - 08/28/2019 2:30 PM EDT Follow up needs made to company Coverage:Medicare Patient ID: [id number] [place] [address] Patient Phone Numbers RX:Entresto Dose: 24-26mg BID Quanity 60 Provider:Denis Langston ID# [id number] Please call [facility] to verify status of application. Phone number: Entresto shipped 08/22 approved 08/18/19. Refill 11/22/19. documented in this encounter Plan of Treatment Upcoming Encounters Date Type Specialty Care Team Description 08/29/2019 Pharmacy Cutter V Groove, Pharmacy Reimbursement, [facility] [address] [place] [address] [phone] Canceled (Barrel Straightener Error) 08/31/2019 Office Visit Cardiology Wilmar Lay PA-C 132 [facility] [place] [address] [phone] 08/31/2019 Pharmacy Pharmacy [facility] 132 [facility] [place] [address] 09/04/2019 Pharmacy Pharmacy [facility] [address] [facility] [address] 09/13/2019 Cardiac Studies Cardiology Nirali Yur [facility] [address] [place] [address] [phone] 11/22/2019 Pharmacy Cutter V Groove, Pharmacy Reimbursement, [facility] [address] [place] [address] [phone] 12/18/2019 Cardiac Studies Cardiology Gigi, Pacer [facility] 132 [place] [address] [phone] 01/05/2020 Office Visit Cardiology Denis Langston MD [address] [address] [phone] 03/22/2020 Cardiac Studies Cardiology Isi Yu [facility] 132 [place] [address] [phone] Health Maintenance Due Date Last Done Comments [...] Visit Diagnoses Diagnosis Coronary artery disease involving [place] coronary artery of [place] heart without angina pectoris- Primary documented in this encounter Advance Directives Documents on File Type Date Recorded Patient Lactation Coordinator Expl anation Advanced Directive Advanced Directive 01/26/2013 11:57 AM Advanced Directive Advanced Directive Advanced Directive Advanced Directive
--- OUTSIDE RECORDS SUMMARY | 2023-09-08 00:52 | External Medical Summary | Summary of Care ---
Author Name Unknown Organization [place] [address] Care Team Providers Care Hides Soaker Name Role Phone Hank Oshea MD Primary Care Provider [phone] Reason for Visit * Reason Comments Dosage Adjustment Via Phone (anticoag Cl inic) Congestive Heart Failure Encounter Details Date Type Department Care Team Description 08/17/2019 Pharmacy Pharmacy, [facility] [place] [address] [facility] [place] [address] Heart failure, systolic, due to CAD (HCC)* Allergies No Known Allergiesdocumented as of this encounter (statuses as of 08/17/2019) Medications Medication Sig Dispensed Refills Start Date End Date Status VITAMIN D 2000 UNITS PO TABS one tablet daily 0 Active nitroglycerin (NITROSTAT) 0.4 MG SUBLIndications:Rascon ry artery disease involving [place] coronary artery of [place] heart without angina pectoris,Myocardial infarction involving other [...] 12.5 MG TabletIndications:Salo nary artery disease involving [place] coronary artery of [place] heart without angina pectoris,Chronic atrial fibrillation Take 1 Tab by mouth 2 times a day. with food 180 Tab 3 05/24/2019 Active digoxin (LANOXIN) 125 mcg TabletIndications:Salo nary artery disease involving [place] coronary artery of [place] heart without angina pectoris,Chronic atrial fibrillation TAKE [...] every other day 45 Tab 3 07/24/2019 Active documented as of this encounter (statuses as of 08/17/2019) Active Problems Problem Noted Date AICD (automatic cardioverter/defibrillat or) present 02/10/2013 Heart failure, systolic, due to CAD 06/2013 Ischemic cardiomyopathy 01/06/2013 Atrial fibrillation 01/06/2013 CAD (coronary artery disease) 07/25/2012 [place] (myocardial infarction) 07/25/2012 documented as of this encounter (statuses as of 08/17/2019) Immunizations Name Administration Dates Next Due DTaP [...] Progress Notes * Viola Hernandez [facility] - 08/17/2019 8:12 AM EDT Patient's pharmacy reimbursement information was sent to [facility] on 08/15. Follow up in 1 week for status check. Viola Hernandez, Pharm D Clinical Pharmacist 08/17/2019, 8:13 AM documented in this encounter Plan of Treatment Upcoming Encounters Date Type Specialty Care Team Description 08/24/2019 Pharmacy Pharmacy [facility] [address] [facility] [place] [address] 08/29/2019 Pharmacy Latex Foam Worker, Pharmacy Reimbursement, [facility] 531 [facility] [place] [address] [phone] 09/04/2019 Pharmacy Pharmacy [place], [facility] 200 [facility] [address] 09/13/2019 Cardiac Studies Cardiology Gigi [facility] 132 [facility] [place] [address] [phone] 12/18/2019 Cardiac Studies [facility] 132 [facility] [place] [address] [phone] 01/05/2020 Office Visit Cardiology Denis Langston MD [address] [facility] [place] [address] [phone] 03/22/2020 Cardiac Studies Cardiology G[facility] [address] [facility] [place] [address] [phone] Health Maintenance Due Date Last Done Comments [...] Documents on File Type Date Recorded Patient Do All Operator Expl anation Advanced Directive Advanced Directive 01/26/2013 11:57 AM Advanced Directive Advanced Directive Advanced Directive Advanced Directive
--- OUTSIDE RECORDS SUMMARY | 2023-09-08 00:52 | External Medical Summary ---
Author Name Unknown Address Unknown Organization R:IT USE ONLY!!! Laboratory Report Ordering Provider Test Date Status FIDELINA HOBSON [facility] 09/04/2019 11:19:00 Final Observation Date Value Abnormality Reference Status INR BldC 09/04/2019 11:20 3.1 Fin al Ds INR range/Ds INR det Patient-Rto 09/04/2019 11:20 Final Therapeutic ranges for non-o perative patients: Prophylaxsis/treatment of DVT: (Range:2.0-3.0) Treatment of pulmonary embolism:(Range:2.0-3.0) Prevention of systemic embolism from: -tissue heart valves -acute myocardial infarction -valvular heart disease -atrial fibrillation (Range: 2.0-3.0) Mechanical prosthetic valves: (Range: 2.5-3.5) Performing Location IT USE ONLY!!!
--- OUTSIDE RECORDS SUMMARY | 2023-09-08 00:52 | External Medical Summary | Summary of Care ---
Author Name Unknown Organization [facility] [place] [address] Care Team Providers Care Mold Stamper Name Role Phone Hank Oshea MD Primary Care Provider [phone] Reason for Visit * Reason Comments Follow Up medication question Encounter Details Date Type Department Care Team Description 08/31/2019 Office Visit Cardiology, [facility] [address] [place] [address] Wilmar Lay PA-C [address] [facility] [place] [address] [phone] Heart failure, systolic, due to CAD (HCC)*; Ischemic cardiomyopathy; AICD (automatic cardioverter/defibrill ator) present; Coronary artery disease involving [place] coronary artery of [place] heart without angina pectoris; Chronic atrial fibrillation Allergies No Known Allergiesdocumented as of this encounter (statuses as of 09/03/2019) Medications Medication Sig Dispensed Refills Start Date End Date Status VITAMIN D 2000 UNITS PO TABS one tablet daily 0 Active nitroglycerin (NITROSTAT) 0.4 MG SUBLIndications:Cor onary artery disease involving [place] coronary artery of [place] heart without angina pectoris,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 25 Tab 11 07/21/2016 Active furosemide (LASIX) 20 MG Tablet Take 1 Tab by mouth daily. 90 Tab 3 11/24/2018 Active clopidogrel (PLAVIX) 75 MG TabletIndications:P ermanent atrial fibrillation Take 1 Tab by mouth daily. 90 Tab 3 11/24/2018 Active warfarin sodium (COUMADIN) 5 MG TabletIndications:A trial fibrillation (HCC) 10 mg F, 5mg all other days 110 Tab 3 03/03/2019 Active Coenzyme Q10 (COQ10) 200 MG CAPS Take by mouth daily. 0 Active carvedilol (COREG) 12.5 MG TabletIndications:C oronary artery disease involving [place] coronary artery of [place] heart without angina pectoris,Chronic atrial fibrillation Take 1 Tab by mouth 2 times a day. with food 180 Tab 3 05/24/2019 Active digoxin (LANOXIN) 125 mcg TabletIndications:C oronary artery disease involving [place] coronary artery of [place] heart without angina pectoris,Chronic atrial fibrillation TAKE [...] Tab by mouth daily. 3 07/30/2019 Active levothyroxine (SYNTHROID) 75 MCG Tablet Take 50 mcg by mouth daily first thing in the morning. (at least 30 min prior to breakfast or other meds) 0 08/31/2019 Discontinued (Medication/ Dose Changed) documented as of this encounter (statuses as of 09/03/2019) Active Problems Problem Noted Date AICD (automatic cardioverter/defibrillat or) present 02/10/2013 Heart failure, systolic, due to CAD 06/2013 Ischemic cardiomyopathy 01/06/2013 Atrial fibrillation 01/06/2013 CAD (coronary artery disease) 07/25/2012 AL (myocardial infarction) 07/25/2012 documented as of this encounter (statuses as of 09/03/2019) Immunizations Name Administration Dates Next Due DTaP [...] rafael ilable. documented as of this encounter Last Filed Vital Signs Vital Sign Reading Time Taken Comments Blood Pressure 112/70 08/31/2019 2:00 PM EDT Pulse 50 08/31/2019 2:00 PM EDT Temperature - - Respiratory Rate 16 08/31/2019 2:00 PM EDT Oxygen Saturation - - Inhaled Oxygen Concentration - - Weight 77.6 kg (171 lb) 08/31/2019 2:00 PM EDT Height - - Body Mass Index 24.54 03/21/2018 12:57 PM EDT documented in this encounter Progress Notes * Wilmar Lay PA-C - 08/31/2019 2:15 PM EDT SUBJECTIVE: Lucian Larson . Is a 83 year old male here today for cardiology evaluation. Route Contractor is Dr. Denis Langston. Last evaluation in this office was with the undersigned on May 24, 2019. Resting echocardiogram obtained at that time revealing severely reduced LV systolic function. Entresto has been approved. He has off of ramipril with plans to start Entresto Wednesday evening. He returns today feeling about the same. No chest pain. No sublingual nitroglycerin use. No palpitations. NoICD discharges. Stable shortness of breath with activity; he describes developing dyspnea requiringhim to rest when walking from the handicapped parking place to the check-in desk. No resting or nocturnal dyspnea, orthopnea, or PND. Chronic distal left lower extremity peripheral edema. Weight is up 4 lb from last evaluation, attributed to eating better with patient stating they had the pressure on me to eat after I lost all that weight.Chronic stable balance issues. Ambulation is via cane. No overt dizziness or syncope. No melena or hematochezia. History: 1. Atherosclerotic [...] Diagnosis Code CAD (coronary artery disease) I25.10 AL (myocardial infarction) ([facility]) I21.9 Heart failure, systolic, due to CAD ([facility]) I50.20, I25.10 Ischemic cardiomyopathy I25.5 Atrial fibrillation ([facility]) I48.91 AICD (automatic cardioverter/defibrillator) present Z95.810 Review of patient's allergies indicates: No Known Allergies Current Outpatient Medications Medication Sig Dispense Refill Cetirizine HCl (ZYRTEC ALLERGY) 10 MG Capsule Take 10 mg by mouth daily. levothyroxine (LEVOXYL) 50 MCG Tablet Take 1 Tab by mouth daily. 3 rosuvastatin (CRESTOR) 5 MG Tablet Take 1 tablet every other day 45 Tab 3 carvedilol (COREG) 12.5 MG Tablet Take 1 Tab by mouth 2 times a day. with food 180 Tab 3 Coenzyme Q10 (COQ10) 200 MG CAPS Take by mouth daily. digoxin (LANOXIN) 125 mcg Tablet TAKE ONE TABLET BY MOUTH ON ., ., AND SAT. 45 Tab 3 warfarin sodium (COUMADIN) 5 MG Tablet 10 mg F, 5mg all other days 110 Tab 3 clopidogrel (PLAVIX) 75 MG Tablet Take 1 Tab by mouth daily. 90 Tab 3 furosemide (LASIX) 20 MG Tablet Take 1 Tab by mouth daily. 90 Tab 3 VITAMIN D 2000 UNITS PO TABS one tablet daily sacubitril-valsartan 24-26 mg per tab (ENTRESTO) 24-26 MG TABS Take 1 Tab by mouth 2 times a day. 60 Tab 1 nitroglycerin (NITROSTAT) 0.[address] 1 Tab under the tongue as needed for Pain, Chest. 25 Tab 11 OBJECTIVE/PHYSICAL EXAMINATION: BP 112/70 | Pulse 50 | Resp 16 | Wt 171 lbs (77.565kg) | BMI 24.54 kg/m | BSA 1.96 m General: A&Ox3. NAD. HEENT: Normocephalic. Atraumatic. PER. Conjunctiva pink, sclera clear. No carotid bruits. No JVD. No HJR. Heart: RRR. No murmur. No rub. No gallop. PMI is nondisplaced. Lungs: Clear to auscultation. Abdomen: +BS. Soft. Nontender. No masses or organomegaly. Extremities: Mildedema. No clubbing. No cyanosis. Limited neurological examination [...] pulmonary hypertension now present. Device interrogation on June 07, 2019 revealed normal ICD function. Medtronic Model - Eric II [id number] (SN: [id number]). RV Lead: Medtronic, Model - 6935 (SN: [id number]). Implant Date: 02-02-2013. Battery voltage: 2.98 V. PANCHO 2.63 V. Backup pacemaker set VVI, 40 bpm. RV paced 0.3%. Three episodes of NS-VT since March 2019, all lasting 2nd. Two occurred on April 20, 2019 in 1 occurred on March 07, 2019. PVC singles: 474.9 per hour which is down from 554 per hour. ASSESSMENT: 1. Stable atherosclerotic coronary disease 2. Severe ischemic cardiomyopathy with LVEF 20% 3. Systolic congestive heart failure with stable mild decompensated. 4. Status post single chamber ICD. 5. Chronic atrial fibrillation. 6. Chronic coumadin anticoagulation 7. Dyslipidemia. LDL 72 mg/dl on 05/24/2019. RECOMMENDATIONS/PLAN: The patient is in the process of transitioning ramipril to Entresto, beginning Entresto Wednesday evening. A basic metabolic panel will be obtained 1 to 2 weeks after starting Entresto. Device interrogation due next on September 13, 2019. Cardiology follow-up with the above, as scheduled with Dr. Langston on January 05, 2020, or as needed with the undersigned in the interim. ER with emergencies. Wilmar Lay PA-C Department of Cardiology documented in this encounter Nursing Notes * Caterina Quigley RN - 08/31/2019 1:58 PM EDT Examination Room: 1 Name: Lucian Reynolds Neo Whitney Date of : (1935). Reason for Visit: Follow up Interim Hospitalization(s): Denied Problems/Concerns: Entresto has been approved and will be strated on Wednesday Chest Pain/SOB: Denied [facility] is a way you can talk to your provider online through e-mail. Would you like to sign up? I can activate it for you? NO documented in this encounter Plan of Treatment Upcoming Encounters Date Type Specialty Care Team Description 09/04/2019 Anticoagulation Pharmacy [place], [facility] Scenery [address] [place] [address] 09/11/2019 Pharmacy Pharmacy [address] [place] [address] 09/13/2019 Cardiac Studies Cardiology [place], Pacer [facility] 132 [facility] [place] [address] [phone] 11/22/2019 Pharmacy Size Cutter, Pharmacy [address] [place] [address] 12/18/2019 Cardiac Studies Cardiology [place], Pacer [facility] 132 [facility] [place] [address] [phone] 01/05/2020 Office Visit Cardiology Denis Langston MD [address] [place] [address] [phone] 03/22/2020 Cardiac Studies Cardiology Isi Yu [facility] [address] [place] [address] [phone] Health Maintenance Due Date Last Done Comments [...] defibrillator in situ Coronary artery disease involving [place] coronary artery of [place] heart without angina pectoris Chronic atrial fibrillation Atrial fibrillation documented in this encounter Advance Directives Documents on File Type Date Recorded Patient Package Liner Expl anation Advanced Directive Advanced Directive 01/26/2013 11:57 AM Advanced Directive Advanced Directive Advanced Directive Advanced Directive"
--- OUTSIDE RECORDS SUMMARY | 2023-09-08 00:52 | External Medical Summary ---
Author Name Unknown Address [address] [place] [address] Phone Organization K09:[facility] [address] [place] [address] Laboratory Report Ordering Provider Test Date Status KIMMY TURNER 09/12/2019 11:41:00 Final Observation Date Value Abnormality Reference Status BUN 09/12/2019 13:46 20 6-20 Fin al Creatinine 09/12/2019 13:46 1.2 0.6-1.2 Fi nal E Glom Filt Rate 09/12/2019 13:46 58.1 Below low normal >60 Final If patient is [place], multiply estimated GFR by 1.159. Sodium 09/12/2019 13:46 141 135-146 Fin al Potassium 09/12/2019 13:46 4.9 3.5-5.1 Fin al Cl 09/12/2019 13:46 104 98-107 Fin al CO2 09/12/2019 13:46 27 22-32 Fin al Anion gap 09/12/2019 13:46 10 7-15 Fin al Glucose 09/12/2019 13:46 48 Below low normal 70-120 Final Calcium 09/12/2019 13:46 9.2 8.4-10.[address]forming [address] [facility] [address] [place] [address]
--- OUTSIDE RECORDS SUMMARY | 2023-09-08 00:52 | External Medical Summary | Summary of Care ---
Author Name Unknown Organization [place] [address] Care Team Providers Care Project Accountant Name Role Phone Hank Oshea MD Primary Care Provider [phone] Reason for Visit * Reason Comments Dosage Adjustment Via Phone (anticoag Cl inic) Congestive Heart Failure Encounter Details Date Type Department Care Team Description 09/11/2019 Pharmacy Pharm[facility] [address] [facility] 132 [place] [address] Atrial fibrillation, unspecified type (HCC)* Allergies No Known Allergiesdocumented as of this encounter (statuses as of 09/11/2019) Medications Medication Sig Dispensed Refills Start Date End Date Status VITAMIN D 2000 UNITS PO TABS one tablet daily 0 Active nitroglycerin (NITROSTAT) 0.4 MG SUBLIndications:Coronar y artery disease involving [place] coronary artery of [place] heart without angina pectoris,Myocardial infarction involving other [...] 12.5 MG TabletIndications:Coron richardson artery disease involving [place] coronary artery of [place] heart without angina pectoris,Chronic atrial fibrillation Take 1 Tab by mouth 2 times a day. with food 180 Tab 3 05/24/2019 Active digoxin (LANOXIN) 125 mcg TabletIndications:Coron [place] artery disease involving [place] coronary artery of [place] heart without angina pectoris,Chronic atrial fibrillation TAKE [...] as of this encounter (statuses as of 09/11/2019) Active Problems Problem Noted Date AICD (automatic cardioverter/defibrillat or) present 02/10/2013 Heart failure, systolic, due to CAD 06/2013 Ischemic cardiomyopathy 01/06/2013 Atrial fibrillation 01/06/2013 CAD (coronary artery disease) 07/25/2012 NM (myocardial infarction) 07/25/2012 documented as of this encounter (statuses as of 09/11/2019) Immunizations Name Administration Dates Next Due DTaP [...] Progress Notes * Viola Hernandez RP - 09/11/2019 11:42 AM EST Patient Phone Numbers Spoke to patient and via phone. Doing well with entresto, states overall feels better. Patientdoes state had some dizziness and vision changes, seem to have improved. Only slight vision change today so far, would like to continue it and will let HF clinic know if continues. Requested bmp, patient will get at [facility] in the next week when able. Will check for BMP results in 1 week. Viola Hernandez, Pharm D Clinical Pharmacist 09/11/2019, 11:46 AM documented in this encounter Plan of Treatment Upcoming Encounters Date Type Specialty Care Team Description 09/13/2019 Cardiac Studies Cardiology Isi Yu [facility] 132 [facility] [place] [address] [phone] 09/18/2019 Pharmacy Pharmacy [facility] [address] [place] [address] [place] [address] 10/16/2019 Anticoagulation Pharmacy [place], [facility] Clinic Scenery [address] [place] [address] 11/22/2019 Pharmacy Hedge Trimmer, Pharmacy [facility], [facility] [address] [facility] [place] [address] [phone] 12/18/2019 Cardiac Studies Cardiology Isi Yu [facility] Antonella [place] [address] [place] [address] [phone] 01/05/2020 Office Visit Cardiology Denis Langston MD [address] [place] [address] [phone] 03/22/2020 Cardiac Studies Cardiology [facility] [address] [place] [address] [phone] Health Maintenance Due Date Last Done Comments [...] Documents on File Type Date Recorded Patient Filler Blender Expl anation Advanced Directive Advanced Directive 01/26/2013 11:57 AM Advanced Directive Advanced Directive Advanced Directive Advanced Directive Advanced Directive
--- OUTSIDE RECORDS SUMMARY | 2023-09-08 00:52 | External Medical Summary | Summary of Care ---
Author Name Unknown Organization [place] [address] Care Team Providers Care Software Configuration Specialist Name Role Phone Hank Oshea MD Primary Care Provider [phone] Encounter Details Date Type Department Care Team Description 09/04/2019 Orders Only Pharmacy, [place] [address] [place] [address] [place] [place] [facility] [address] [place] [address] Allergies No Known Allergiesdocumented as of this [...] rafael ilable. documented as of this encounter Plan of Treatment Upcoming Encounters Date Type Specialty Care Team Description 09/11/2019 Pharmacy Pharmacy [place], [facility] [place] [address] 09/13/2019 Cardiac Studies Cardiology MarcelinolidiaIsi [facility] [address] [place] [address] [phone] 10/16/2019 Anticoagulation Pharmacy [place], [facility] Sc[facility] [address] [place] [address] 11/22/2019 Pharmacy Patternmaker Metal Bench, Pharmacy Reimbursement, [facility] [address] [place] [address] [phone] 12/18/2019 [facility] [address] [place] [address] [phone] 01/05/2020 Office Visit Cardiology Denis Langston MD 132 [facility] [place] [address] [phone] 03/22/2020 [facility] [address] [facility] [place] [address] [phone] Health Maintenance Due Date Last Done Comments [...] Date/Time Associated Diagnosis Comments INR FINGERSTICK Routine 09/04/2019 11:19 AM EST documented in this encounter Results * INR FINGERSTICK (09/04/2019 11:19 AM EST) FINGERSTICK INR 3.1 INR [facility] THERAPEUTIC RANGE Comment: Therapeutic ranges for non-operative patients: Prophylaxsis/treatmen t of DVT: (Range:2.0-3.0) Treatment of pulmonary embolism:(Range:2.0-3 .0) Prevention of systemic embolism from: -tissue heart valves -acute myocardial infarction -valvular heart disease -atrial fibrillation (Range: 2.0-3.0) Mechanical prosthetic valves: (Range: 2.5-3.5) [facility] Specimen Performing Organization Address City/State/Zipcod e Phone Number [facility], [address] [facility] [place] [address] documented in this encounter Advance Directives Documents on File Type Date Recorded Patient Personnel Counselor Expl anation Advanced Directive Advanced Directive 01/26/2013 11:57 AM Advanced Directive Advanced Directive Advanced Directive Advanced Directive Advanced Directive
--- OUTSIDE RECORDS SUMMARY | 2023-09-08 00:53 | External Medical Summary | Summary of Care ---
Author Name Unknown Organization [place] [address] Care Team Providers Care Surgical Coder Name Role Phone Hank Oshea MD Primary Care Provider [phone] Reason for Visit * Reason Comments Patient Assistance Program Encounter Details Date Type Department Care Team Description 08/02/2019 Pharmacy Pharmacy, [place] [address] [place] [address] Coordinator, Pharmacy Reimbursement, [facility] [address] [place] [address] Heart failure, systolic, due to CAD (HCC)* Allergies No Known Allergiesdocumented as of this encounter (statuses as of 08/02/2019) Medications Medication Sig Dispensed Refills Start Date End Date Status VITAMIN D 2000 UNITS PO TABS one tablet daily 0 Active nitroglycerin (NITROSTAT) 0.4 MG SUBLIndications:[place]as[place] ry artery disease involving [place] coronary artery of [place] heart without angina pectoris,Myocardial infarction involving other [...] 12.5 MG TabletIndications:Salo nary artery disease involving [place] coronary artery of [place] heart without angina pectoris,Chronic atrial fibrillation Take 1 Tab by mouth 2 times a day. with food 180 Tab 3 05/24/2019 Active digoxin (LANOXIN) 125 mcg TabletIndications:Salo nary artery disease involving [place] coronary artery of [place] heart without angina pectoris,Chronic atrial fibrillation TAKE [...] as of this encounter (statuses as of 08/02/2019) Active Problems Problem Noted Date AICD (automatic cardioverter/defibrillat or) present 02/10/2013 Heart failure, systolic, due to CAD 06/2013 Ischemic cardiomyopathy 01/06/2013 Atrial fibrillation 01/06/2013 CAD (coronary artery disease) 07/25/2012 AK (myocardial infarction) 07/25/2012 documented as of this encounter (statuses as of 08/02/2019) Immunizations Name Administration Dates Next Due DTaP [...] Progress Notes * Faiza Apple OSA - 08/02/2019 10:00 AM EDT Received call from patient [phone] (home) Patient Phone Numbers Coverage:Medicare Medication:Entresto I spoke to the patients today who advised she mailed the Entresto PAP into 's office and included the self addressed envelope to mail back to me. KEITH Mullins [employer] Laboratory Technician 08/02/2019, 9:37 AM documented in this encounter Plan of Treatment Upcoming Encounters Date Type Specialty Care Team Description 08/04/2019 Pharmacy Pharmacy [place], [facility] [address] [facility] [place] [address] 09/04/2019 Pharmacy Pharmacy Radha Cabrera [facility] [address] [facility] [address] 09/13/2019 [facility] [address] [place] [address] [phone] 12/18/2019 Cardiac Studies Cardiology Gw, [facility] [address] [place] [address] [phone] 01/05/2020 Office Visit Cardiology Denis Langston MD [address] [place] [address] [phone] 03/22/2020 Cardiac Studies [facility]iology [facility] [address] [place] [address] [phone] Health Maintenance Due Date Last Done Comments [...] Documents on File Type Date Recorded Patient Physician In Private Practice Expl anation Advanced Directive Advanced Directive 01/26/2013 11:57 AM Advanced Directive Advanced Directive Advanced Directive Advanced Directive
--- OUTSIDE RECORDS SUMMARY | 2023-09-08 00:53 | External Medical Summary | Summary of Care ---
Author Name Unknown Organization [place] [address] Care Team Providers Care Steaming Cabinet Tender Name Role Phone Hank Oshea MD Primary Care Provider [phone] Reason for Visit * Reason Comments Patient Assistance Program Encounter Details Date Type Department Care Team Description 07/13/2019 Pharmacy Pharmacy, [place] Leif Harding [address] [place] [address] Coordinator, Pharmacy Reimbursement, [facility] [address] [place] [address] Heart failure, systolic, due to CAD (HCC)* Allergies No Known Allergiesdocumented as of this encounter (statuses as of 07/14/2019) Medications Medication Sig Dispensed Refills Start Date End Date Status VITAMIN D 2000 UNITS PO TABS one tablet daily 0 Active nitroglycerin (NITROSTAT) 0.4 MG SUBLIndications:Rascon ry artery disease involving lower [place] coronary artery of [place] heart without angina pectoris,Myocardial infarction involving other [...] mouth daily. 90 Cap 3 11/03/2018 Active rosuvastatin (CRESTOR) 5 MG TabletIndications:Hear t failure, systolic, due to CAD (HCC),Ischemic cardiomyopathy,AICD (automatic cardioverter/defibrill ator) present,CAD (coronary artery disease) Take 1 tablet every other day 45 Tab 3 11/24/2018 Active furosemide (LASIX) 20 MG Tablet Take [...] 12.5 MG TabletIndications:Salo nary artery disease involving lower [place] coronary artery of [place] heart without angina pectoris,Chronic atrial fibrillation (HCC) Take 1 Tab by mouth 2 times a day. with food 180 Tab 3 05/24/2019 Active digoxin (LANOXIN) 125 mcg TabletIndications:Salo nary artery disease involving lower [place] coronary artery of [place] heart without angina pectoris,Chronic atrial fibrillation (HCC) TAKE ONE TABLET BY MOUTH ON ., ., AND SAT. 45 Tab 3 05/24/2019 Active sacubitril-valsartan 24-26 mg per tab (ENTRESTO) 24-26 MG TABS Take 1 Tab by mouth 2 times a day. 60 Tab 1 07/12/2019 Active documented as of this encounter (statuses as of 07/14/2019) Active Problems Problem Noted Date AICD (automatic cardioverter/defibrillat or) present 02/10/2013 Heart failure, systolic, due to CAD 06/2013 Ischemic cardiomyopathy 01/06/2013 Atrial fibrillation 01/06/2013 CAD (coronary artery disease) 07/25/2012 MA (myocardial infarction) 07/25/2012 documented as of this encounter (statuses as of 07/14/2019) Immunizations Name Administration Dates Next Due DTaP [...] Progress Notes * Faiza Apple OSA - 07/13/2019 4:30 PM EDT A [facility] Was wondering if you could look into this patient's Entresto, which is going to cost 250/month and is unaffordable? Could we see if he qualifies for any assistance with that? Thanks much appreciated, Viola [facility] staff will discuss available assistance. Coverage: Medicare RX: Entresto Pace: Provider: Wilmar Lay I called the patient and confirmed according to his income level he should qualify for free drug through [employer]. I mailed him an application with a self addressed return envelope so he can send it back to me once completed so I can forward on to the maltster for consideration. KEITH Mullins Pharmaceutical Heel Builder 07/14/2019, 10:05 AM documented in this encounter Plan of Treatment Upcoming Encounters Date Type Specialty Care Team Description 07/20/2019 Pharmacy Pharmacy Petros [facility] [place] [address] [address] 07/24/2019 Pharmacy Pharmacy Deborah [facility] [address] [facility] [address] 07/28/2019 Pharmacy High Density Finishing Operator, Pharmacy [address] [place] [address] [phone] 09/13/2019 Cardiac Studies Cardiology Gw, [facility] [address] [address] [phone] 12/18/2019 Cardiac Studies Cardiology Gw, [facility] [address] [address] [phone] 01/05/2020 Office Visit Cardiology Denis Langston MD [address] [address] [phone] 03/22/2020 Cardiac Studies Cardiology [place] [address] [place] [address] [phone] Health Maintenance Due Date Last Done Comments [...] Documents on File Type Date Recorded Patient Refrigeration Mechanic Helper Expl anation Advanced Directive Advanced Directive 01/26/2013 11:57 AM Advanced Directive Advanced Directive Advanced Directive Advanced Directive
--- OUTSIDE RECORDS SUMMARY | 2023-09-08 00:53 | External Medical Summary | Summary of Care ---
Author Name Unknown Organization [facility] [address] Care Team Providers Care Yard Attendant Name Role Phone Hank Oshea MD Primary Care Provider Reason for Visit * Reason Comments Patient Assistance Program Encounter Details Date Type Department Care Team Description 07/28/2019 Pharmacy Pharmacy, [place] Leif Harding [address] [address] [address] Coordinator, Pharmacy Reimbursement, [facility] [address] [place] [address] [address] Atrial fibrillation (HCC)* Allergies No Known Allergiesdocumented as of this encounter (statuses as of 07/28/2019) Medications Medication Sig Dispensed Refills Start Date End Date Status VITAMIN D 2000 UNITS PO TABS one tablet daily 0 Active nitroglycerin (NITROSTAT) 0.4 MG SUBLIndications:Rascon ry artery disease involving [place] coronary artery of [place] heart without angina pectoris,Myocardial infarction involving other [...] 12.5 MG TabletIndications:Salo nary artery disease involving [place] coronary artery of hab[place] heart without angina pectoris,Chronic atrial fibrillation Take 1 Tab by mouth 2 times a day. with food 180 Tab 3 05/24/2019 Active digoxin (LANOXIN) 125 mcg TabletIndications:Salo nary artery disease involving [place] coronary artery of [place] heart without angina pectoris,Chronic atrial fibrillation TAKE [...] as of this encounter (statuses as of 07/28/2019) Active Problems Problem Noted Date AICD (automatic cardioverter/defibrillat or) present 02/10/2013 Heart failure, systolic, due to CAD 06/2013 Ischemic cardiomyopathy 01/06/2013 Atrial fibrillation 01/06/2013 CAD (coronary artery disease) 07/25/2012 DE (myocardial infarction) 07/25/2012 documented as of this encounter (statuses as of 07/28/2019) Immunizations Name Administration Dates Next Due DTaP [...] Progress Notes * Faiza Apple OSA - 07/28/2019 9:00 AM EDT Follow up needs made to patient [phone] (home) , Patient Phone Numbers Coverage:Medicare RX:Entresto Provider: Please call patient to verify status of [employer] PAP application for Entresto. Forms sent: 07/14/19 I called and left a message for the patient to advise checking stat of PAP. KEITH Mullins Pharmaceutical Corporate Financial Analyst 07/28/2019, 12:13 PM documented in this encounter Plan of Treatment Upcoming Encounters Date Type Specialty Care Team Description 07/28/2019 Pharmacy Pharmacy [facility] [address] [facility] [place] [address] Heart failure, systolic, due to CAD (HCC)* 08/04/2019 Pharmacy Pharmacy [facility] [address] [place] [address] 09/04/2019 [facility] [address] [place] [address] 09/13/2019 [facility] [address] [place] [address] [phone] 12/18/2019 Cardiac Studies Cardiology Gw, [facility] [address] [place] [address] [phone] 01/05/2020 Office Visit Cardiology Denis Langston MD [address] [address] [phone] 03/22/2020 Cardiac Studies Cardiology [facility] [address] [address] [phone] Health Maintenance Due Date Last Done Comments [...] this encounter Visit Diagnoses Diagnosis Atrial fibrillation (HCC)- Primary Atrial fibrillation documented in this encounter Advance Directives Documents on File Type Date Recorded Patient Poll Clerk Expl anation Advanced Directive Advanced Directive 01/26/2013 11:57 AM Advanced Directive Advanced Directive Advanced Directive Advanced Directive
--- OUTSIDE RECORDS SUMMARY | 2023-09-08 00:53 | External Medical Summary | Summary of Care ---
Author Name Unknown Organization [facility] [place] [address] Care Team Providers Care Keycase Assembler Name Role Phone Hank Oshea MD Primary Care Provider [phone] Reason for Visit * Reason Comments Dosage Adjustment Via Phone (anticoag Cl inic) Congestive Heart Failure Encounter Details Date Type Department Care Team Description 08/04/2019 Pharmacy Pharmacy, [facility] [address] [place] [address] [facility] [address] [place] [address] Heart failure, systolic, due to CAD (HCC)* Allergies No Known Allergiesdocumented as of this encounter (statuses as of 08/04/2019) Medications Medication Sig Dispensed Refills Start Date End Date Status VITAMIN D 2000 UNITS PO TABS one tablet daily 0 Active nitroglycerin (NITROSTAT) 0.4 MG SUBLIndications:Rascon ry artery disease involving [place] coronary artery of [place] heart without angina pectoris,Myocardial infarction involving other [...] 12.5 MG TabletIndications:Salo nary artery disease involving [place] coronary artery of [place] heart without angina pectoris,Chronic atrial fibrillation Take 1 Tab by mouth 2 times a day. with food 180 Tab 3 05/24/2019 Active digoxin (LANOXIN) 125 mcg TabletIndications:Salo nary artery disease involving [place] coronary artery of [place] heart without angina pectoris,Chronic atrial fibrillation TAKE [...] as of this encounter (statuses as of 08/04/2019) Active Problems Problem Noted Date AICD (automatic cardioverter/defibrillat or) present 02/10/2013 Heart failure, systolic, due to CAD 06/2013 Ischemic cardiomyopathy 01/06/2013 Atrial fibrillation 01/06/2013 CAD (coronary artery disease) 07/25/2012 [place] (myocardial infarction) 07/25/2012 documented as of this encounter (statuses as of 08/04/2019) Immunizations Name Administration Dates Next Due DTaP [...] this encounter Progress Notes * Viola Hernandez [facility] - 08/04/2019 8:28 AM EDT Per Pharmacy Reimbursement: patient's mailed Entresto PAP to Dr Langston office. Awaiting case managers to fill out and will then return to pharmacy reimbursement. Follow up in 1 week with status check. Viola Hernandez, Pharm D Clinical Pharmacist 08/04/2019, 8:29 AM documented in this encounter Plan of Treatment Upcoming Encounters Date Type Specialty Care Team Description 08/11/2019 Pharmacy Pharmacy [place], [facility] [place] [address] 09/04/2019 Pharmacy Pharmacy Radha Cabrera [facility] [address] [facility] [address] 09/13/2019 Cardiac Studies Cardiology [place], [facility] [place] [address] [phone] 12/18/2019 Cardiac Studies Cardiology Gw, [facility] 132 [facility] [place] [address] [phone] 01/05/2020 Office Visit Cardiology Denis Langston MD [facility] [place] [address] [phone] 03/22/2020 [facility] 132 [facility] [place] [address] [phone] Health Maintenance Due Date Last Done Comments [...] Documents on File Type Date Recorded Patient Registered Medical Assistant Expl anation Advanced Directive Advanced Directive 01/26/2013 11:57 AM Advanced Directive Advanced Directive Advanced Directive Advanced Directive
--- OUTSIDE RECORDS SUMMARY | 2023-09-08 00:53 | External Medical Summary | Summary of Care ---
Author Name Unknown Organization [facility] [place] [address] Care Team Providers Care Vice President Research Name Role Phone Hank Oshea MD Primary Care Provider [phone] Reason for Visit * Reason Comments Dosage Adjustment Via Phone (anticoag Cl inic) Congestive Heart Failure Encounter Details Date Type Department Care Team Description 08/11/2019 Pharmacy Pharm[facility], [facility] [address] [facility] [address] Heart failure, systolic, due to CAD (HCC)* Allergies No Known Allergiesdocumented as of this encounter (statuses as of 08/11/2019) Medications Medication Sig Dispensed Refills Start Date End Date Status VITAMIN D 2000 UNITS PO TABS one tablet daily 0 Active nitroglycerin (NITROSTAT) 0.4 MG SUBLIndications:Rascon ry artery disease involving [place] coronary artery of [place] heart without angina pectoris,Myocardial infarction involving other [...] 12.5 MG TabletIndications:Salo nary artery disease involving [place] coronary artery of [place] heart without angina pectoris,Chronic atrial fibrillation Take 1 Tab by mouth 2 times a day. with food 180 Tab 3 05/24/2019 Active digoxin (LANOXIN) 125 mcg TabletIndications:Salo nary artery disease involving [place] coronary artery of [place] heart without angina pectoris,Chronic atrial fibrillation TAKE [...] as of this encounter (statuses as of 08/11/2019) Active Problems Problem Noted Date AICD (automatic cardioverter/defibrillat or) present 02/10/2013 Heart failure, systolic, due to CAD 06/2013 Ischemic cardiomyopathy 01/06/2013 Atrial fibrillation 01/06/2013 CAD (coronary artery disease) 07/25/2012 MO (myocardial infarction) 07/25/2012 documented as of this encounter (statuses as of 08/11/2019) Immunizations Name Administration Dates Next Due DTaP [...] Progress Notes * Viola Hernandez RPh - 08/11/2019 8:25 AM EDT No updates at this time regarding pharmacy reimbursement of Entresto. Follow up in 1 week. Viola Hernandez, Pharm D Clinical Pharmacist 08/11/2019, 8:25 AM documented in this encounter Plan of Treatment Upcoming Encounters Date Type Specialty Care Team Description 08/17/2019 Pharmacy Pharmacy [facility] [address] [place] [address] 09/04/2019 Pharmacy Pharmacy Radha [facility] [address] [facility] [address] 09/13/2019 Cardiac Studies Cardiology Gigi [place] [facility] [address] [place] [address] [phone] 12/18/2019 Cardiac Studies Cardiology Gigi [facility] [address] [place] [address] [phone] 01/05/2020 Office Visit Cardiology Denis Langston MD [address] [place] [address] [phone] 03/22/2020 Cardiac Studies Cardiology G[facility] [address] [facility] [place] [address] [phone] Health Maintenance Due Date Last Done Comments [...] Documents on File Type Date Recorded Patient Needleworker Expl anation Advanced Directive Advanced Directive 01/26/2013 11:57 AM Advanced Directive Advanced Directive Advanced Directive Advanced Directive
--- OUTSIDE RECORDS SUMMARY | 2023-09-08 00:53 | External Medical Summary | Summary of Care ---
Author Name Unknown Organization [facility] [address] Care Team Providers Care Prepress Supervisor Name Role Phone Hank Oshea MD Primary Care Provider [phone] Reason for Visit * Reason Comments Patient Assistance Program Encounter Details Date Type Department Care Team Description 08/15/2019 Pharmacy Pharmacy, [place] Leif Harding [address] [place] [address] [address] Coordinator, Pharmacy Reimbursement, [facility] [address] [place] [place] [address] [address] Atrial fibrillation (HCC)* Allergies No Known Allergiesdocumented as of this encounter (statuses as of 08/15/2019) Medications Medication Sig Dispensed Refills Start Date End Date Status VITAMIN D 2000 UNITS PO TABS one tablet daily 0 Active nitroglycerin (NITROSTAT) 0.4 MG SUBLIndications:Rascon ry artery disease involving [place] coronary artery of jackson heart without angina pectoris,Myocardial infarction involving other [...] 12.5 MG TabletIndications:Salo nary artery disease involving [place] coronary artery of jackson heart without angina pectoris,Chronic atrial fibrillation Take 1 Tab by mouth 2 times a day. with food 180 Tab 3 05/24/2019 Active digoxin (LANOXIN) 125 mcg TabletIndications:Salo nary artery disease involving [place] coronary artery of jackson heart without angina pectoris,Chronic atrial fibrillation TAKE [...] as of this encounter (statuses as of 08/15/2019) Active Problems Problem Noted Date AICD (automatic cardioverter/defibrillat or) present 02/10/2013 Heart failure, systolic, due to CAD 06/2013 Ischemic cardiomyopathy 01/06/2013 Atrial fibrillation 01/06/2013 CAD (coronary artery disease) 07/25/2012 NV (myocardial infarction) 07/25/2012 documented as of this encounter (statuses as of 08/15/2019) Immunizations Name Administration Dates Next Due DTaP [...] Progress Notes * Faiza Apple OSA - 08/15/2019 3:15 PM EDT Completed [employer] application for [employer] and proof of income were received on 08/15/19. Scanned to patient files and faxed to [facility] put on schedule to follow up with [facility] for status. KEITH Mullins Pharmaceutical Instrument Maker And Repairer 08/15/2019, 1:17 PM documented in this encounter Plan of Treatment Upcoming Encounters Date Type Specialty Care Team Description 08/17/2019 Pharmacy Pharmacy [facility] [address] [facility] [place] [address] 08/29/2019 Pharmacy Adjutant General, Pharmacy Reimbursement, [facility] [address] [facility] [place] [address] 09/04/2019 Pharmacy Pharmacy [place], [facility] [address] [facility] [address] 09/13/2019 Cardiac Studies Cardiology [facility] [address] [facility] [place] [address] [phone] 12/18/2019 Cardiac Studies Cardiology Gigi [facility] [address] [facility] [place] [address] [phone] 01/05/2020 Office Visit Cardiology Denis Langston MD [address] [facility] [place] [address] [phone] 03/22/2020 Cardiac Studies Cardiology [facility] [address] [facility] [place] [address] [phone] Health Maintenance Due Date Last Done Comments [...] Documents on File Type Date Recorded Patient Yarn Dyer Expl anation Advanced Directive Advanced Directive 01/26/2013 11:57 AM Advanced Directive Advanced Directive Advanced Directive Advanced Directive
--- OUTSIDE RECORDS SUMMARY | 2023-09-08 00:53 | External Medical Summary | Summary of Care ---
Author Name Unknown Organization [place] [address] Care Team Providers Care Chute Worker Name Role Phone Hank Oshea MD Primary Care Provider [phone] Reason for Visit * Reason Comments Medication Refill Encounter Details Date Type Department Care Team Description 07/24/2019 Refill Cardiology, [facility] 132 [facility] [place] [address] Wesly Langston MD 132 [place] [address] [phone] Heart failure, systolic, due to CAD (HCC); Ischemic cardiomyopathy; AICD (automatic cardioverter/defibrillat or) present; CAD (coronary artery disease) Allergies No Known Allergiesdocumented as of this encounter (statuses as of 07/24/2019) Medications Medication Sig Dispensed Refills Start Date End Date Status VITAMIN D 2000 UNITS PO TABS one tablet daily 0 Active nitroglycerin (NITROSTAT) 0.4 MG SUBLIndications:Co ronary artery disease involving assiniboine and sioux coronary artery of assiniboine and sioux heart without angina pectoris,Myocardia l infarction [...] (PLAVIX) 75 MG TabletIndications: Permanent atrial fibrillation (HCC) Take 1 Tab by mouth daily. 90 Tab 3 11/24/2018 Active warfarin sodium (COUMADIN) 5 MG TabletIndications: Atrial fibrillation (HCC) 10 mg F, 5mg all other days 110 Tab 3 03/03/2019 Active Coenzyme Q10 (COQ10) 200 MG CAPS Take by mouth daily. 0 Active carvedilol (COREG) 12.5 MG TabletIndications: Coronary artery disease involving assiniboine and sioux coronary artery of assiniboine and sioux heart without angina pectoris,Chronic atrial fibrillation (HCC) Take 1 Tab by mouth 2 times a day. with food 180 Tab 3 05/24/2019 Active digoxin (LANOXIN) 125 mcg TabletIndications: Coronary artery disease involving assiniboine and sioux coronary artery of assiniboine and sioux heart without angina pectoris,Chronic atrial fibrillation [...] other day 45 Tab 3 07/24/2019 Active rosuvastatin (CRESTOR) 5 MG TabletIndications: Heart failure, systolic, due to CAD (HCC),Ischemic cardiomyopathy,AIC D (automatic cardioverter/defib rillator) present,CAD (coronary artery disease) Take 1 tablet every other day 45 Tab 3 11/24/2018 07/24/2019 Discontinued documented as of this encounter (statuses as of 07/24/2019) Active Problems Problem Noted Date AICD (automatic cardioverter/defibrillat or) present 02/10/2013 Heart failure, systolic, due to CAD 06/2013 Ischemic cardiomyopathy 01/06/2013 Atrial fibrillation 01/06/2013 CAD (coronary artery disease) 07/25/2012 [place] (myocardial infarction) 07/25/2012 documented as of this encounter (statuses as of 07/24/2019) Immunizations Name Administration Dates Next Due DTaP [...] Telephone Encounter - Wesly Langston MD - 07/24/2019 1:10 PM EDT Signed Prescriptions: Disp Refills rosuvastatin (CRESTOR) 5 MG Tablet 45 Tab 3 Sig: Take 1 tablet every other day Authorizing Provider: WESLY LANGSTON * Telephone Encounter - Yina Elizondo RN - 07/24/2019 12:47 PM EDT Pending Prescriptions: Disp Refills rosuvastatin (CRESTOR) 5 MG Tablet 45 Tab 3 Sig: Take 1 tablet every other day * Telephone Encounter - Uzma Flores, cooling tower operator - 07/24/2019 8:32 AM EDT Pt states he was not given the hard copy of the prescription in November. Please review and approve if appropriate. Pending Prescriptions: Disp Refills rosuvastatin (CRESTOR) 5 MG Tablet 45 Tab 3 Sig: Take 1 tablet every other day Last Office Visit: 05/24/2019 Next Office Visit: 09/13/2019 Scheduled Provider(s): [facility] Gw If no future appointments scheduled, and last appointment is greater than a year ago, please schedule patient for a follow-up appointment Last date the medication was ordered: 11/24/2018 Pharmacy: [facility] [address] [place] [address] BISI TERRELL Is this request for a [...] Type Specialty Care Team Description 07/28/2019 Pharmacy Boiler Riveter, Pharmacy [facility], [facility] [address] [facility] [place] [address] [phone] 07/28/2019 Pharmacy Pharmacy [facility] [place] [address] [place] [address] 09/04/2019 Pharmacy Pharmacy Radha Cabrera [facility] Scenery [address] [place] [address] 09/13/2019 Cardiac Studies Cardiology Gw, [facility] [address] [place] [address] [phone] 12/18/2019 Cardiac Studies Cardiology , [facility] [address] [place] [address] [phone] 01/05/2020 Office Visit Cardiology Wesly Langston MD [address] [place] [address] [phone] 03/22/2020 Cardiac Studies Cardiology [facility], [facility] [address] [place] [address] [phone] Health Maintenance Due Date Last Done Comments [...] Coronary atherosclerosis of unspecified type of vessel, assiniboine and sioux or graft documented in this encounter Advance Directives Documents on File Type Date Recorded Patient Bpm Developer Expl anation Advanced Directive Advanced Directive 01/26/2013 11:57 AM Advanced Directive Advanced Directive Advanced Directive Advanced Directive
--- OUTSIDE RECORDS SUMMARY | 2023-09-08 00:53 | External Medical Summary | Summary of Care ---
Author Name Unknown Organization [place] [address] Care Team Providers Care Trouble Shooting Mechanic Name Role Phone Hank Oshea MD Primary Care Provider [phone] Reason for Referral * Evaluate & Treat - Unlimited Visits (Within 10 days (routine)) Status Reason Specialty Diagnoses / Procedures Referred By Contact Referred To Contact Pending Review Specialty Services Required Pharmacist / Pharmacy Diagnoses Ischemic cardiomyopathy Heart failure, systolic, due to CAD (HCC) Wilmar Lay PA-C [address] [facility] [place] [address] Reason for Visit * Reason Comments Test Results Encounter Details Date Type Department Care Team Description 07/11/2019 Telephone Cardiology, [facility] [address] [facility] [address] Caterina Quigley, RN 200 [place] [address] [phone] Test Results Allergies No Known Allergiesdocumented as of this encounter (statuses as of 07/12/2019) Medications Medication Sig Dispensed Refills Start Date End Date Status VITAMIN D 2000 UNITS PO TABS one tablet daily 0 Active nitroglycerin (NITROSTAT) 0.4 MG SUBLIndications:Rascon ry artery disease involving [place] coronary artery of [place] heart without angina pectoris,Myocardial infarction involving [...] 12.5 MG TabletIndications:Salo nary artery disease involving [place] coronary artery of [place] heart without angina pectoris,Chronic atrial fibrillation (HCC) Take 1 Tab by mouth 2 times a day. with food 180 Tab 3 05/24/2019 Active digoxin (LANOXIN) 125 mcg TabletIndications:Salo nary artery disease involving [place] coronary artery of [place] heart without angina pectoris,Chronic atrial fibrillation (HCC) TAKE ONE TABLET BY MOUTH ON ., THURS., AND SAT. 45 Tab 3 05/24/2019 Active documented as of this encounter (statuses as of 07/12/2019) Active Problems Problem Noted Date AICD (automatic cardioverter/defibrillat or) present 02/10/2013 Heart failure, systolic, due to CAD 06/2013 Ischemic cardiomyopathy 01/06/2013 Atrial fibrillation 01/06/2013 CAD (coronary artery disease) 07/25/2012 [place] (myocardial infarction) 07/25/2012 documented as of this encounter (statuses as of 07/12/2019) Immunizations Name Administration Dates Next Due DTaP [...] encounter Miscellaneous Notes * Telephone Encounter - Caterina Quigley RN - 07/11/2019 9:18 AM EDT Spoke to patient and . He is agreeable to [facility] referral and initiation of Entresto. * Telephone Encounter - Caterina Quigley RN - 07/11/2019 9:15 AM EDT ----- Message from Wilmar Lay PA-C sent at 07/11/2019 8:49 AM EDT ----- Systolic function remains severely reduced (ischemic cardiomyopathy). EF 20-24%. Refer to [facility] Clinic, RE: Utilization of Entresto documented in this encounter Plan of Treatment Upcoming Encounters Date Type Specialty Care Team Description 07/12/2019 Pharmacy Pharm[facility] [address] Heart failure, systolic, due to CAD (HCC)* 07/13/2019 Pharmacy Pharmacy [facility] 132 [facility] [place] [address] 07/24/[address] [facility] [address] [facility] [address] 09/13/2019 Cardiac Studies Cardiology , [facility] [address] [place] [address] [phone] 12/18/2019 Cardiac Studies Cardiology , [facility] [address] [place] [address] [phone] 01/05/2020 Office Visit Cardiology Denis Langston MD [address] [place] [address] [phone] 03/22/2020 Cardiac Studies Cardiology Isi Yu [facility] [address] [place] [address] [phone] Scheduled Referrals Name Type Priority Associated Diagnoses Orde r Schedule PHARMACIST MEDS THERAPY MGMT REFERRAL OP Referral Within 10 days (routine) Ischemic cardiomyopathy Heart failure, systolic, due to CAD (HCC) Ordered: 07/11/2019 Health Maintenance Due Date Last Done Comments PNEUMOCOCCAL ADULT 65 YRS AND OVER (1 of 2 - PCV13) 1999 *DEPRESSION [...] Documents on File Type Date Recorded Patient Interior Design Coordinator Expl anation Advanced Directive Advanced Directive 01/26/2013 11:57 AM Advanced Directive Advanced Directive Advanced Directive Advanced Directive
--- OUTSIDE RECORDS SUMMARY | 2023-09-08 00:53 | External Medical Summary | Summary of Care ---
Author Name Unknown Organization [place] [address] Care Team Providers Care Slot Floor Attendant Name Role Phone Hank Oshea MD Primary Care Provider [phone] Reason for Visit * Reason Comments Dosage Adjustment In Person (Anticoag Cl inic) Encounter Details Date Type Department Care Team Description 07/24/2019 Pharmacy Pharmacy, [address] [place] [address] [facility] [address] [place] [address] Atrial fibrillation, unspecified type (HCC)*; Myocardial infarction, unspecified AL type, unspecified artery (HCC); Anticoagulation management encounter; residential 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 therapy Allergies No Known Allergiesdocumented as of this encounter (statuses as of 07/24/2019) Medications Medication Sig Dispensed Refills Start Date End Date Status VITAMIN D 2000 UNITS PO TABS one tablet daily 0 Active nitroglycerin (NITROSTAT) 0.4 MG SUBLIndications:Rascon ry artery disease involving redding coronary artery of redding heart without angina pectoris,Myocardial infarction involving other [...] 12.5 MG TabletIndications:Salo nary artery disease involving redding coronary artery of redding heart without angina pectoris,Chronic atrial fibrillation (HCC) Take 1 Tab by mouth 2 times a day. with food 180 Tab 3 05/24/2019 Active digoxin (LANOXIN) 125 mcg TabletIndications:Salo nary artery disease involving redding coronary artery of redding heart without angina pectoris,Chronic atrial fibrillation (HCC) [...] Progress Notes * Anibal Mcfarland RPh - 07/24/2019 11:26 AM EDT Medication Therapy Disease Management - Anticoagulation Lucian Larson Jr. is an 83 year old male who presents to clinic for anticoagulation management and education. Current Anticoagulation Regimen: warfarin 10mg F, 5mg all other days (5mg tabs) Anticoagulation Medication Adherence: Patient compliant Patient-Reported Symptoms: Bruising: no Bleeding: no Miscellaneous: no Interval Health and/or Dietary Status Changes: No significant health status or dietary changes noted today INR: 3.2 Target range: 2.0-3.0 Recommendations: Skip dose today then resume the current dose of warfarin 10mg F, 5mg all other days (5mg tabs) Follow-up: Patient to repeat PT/INR in 6 week(s) to assess dosing of warfarin for anticoagulation management. Anibal Caceres RPh, CDE, CACP Clinical Pharmacist Medication Therapy Disease Management 07/24/2019, 11:27 AM documented in this encounter Plan of Treatment Upcoming Encounters Date Type Specialty Care Team Description 07/28/2019 Pharmacy Seamless Tube Mill Operator, Pharmacy [facility], [facility] [address] [facility] [place] [address] [phone] 07/28/2019 Pharmacy Pharmacy [place], [facility] Antonella 132 [facility] [place] [address] 09/04/2019 Pharmacy Pharmacy Radha Cabrera Clinic Scenery [address] [place] [address] 09/13/2019 Cardiac Studies Cardiology , [facility] [address] [place] [address] [phone] 12/18/2019 Cardiac Studies Cardiology Gw, [facility] [address] [place] [address] [phone] 01/05/2020 Office Visit Cardiology Denis Langston MD [address] [place] [address] [phone] 03/22/2020 [facility] [address] [place] [address] [phone] Health Maintenance Due Date Last Done Comments [...] Date/Time Associated Diagnosis Comments INR FINGERSTICK STAT 07/24/2019 11:30 AM EDT Atrial fibrillation, unspecified type (HCC) Myocardial infarction, unspecified AL type, unspecified artery (HCC) Anticoagulation management encounter long term care administrator 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 therapy documented in this encounter Results * INR FINGERSTICK (07/24/2019 11:30 AM EDT) FINGERSTICK INR 3.2 INR [facility] THERAPEUTIC RANGE Comment: Therapeutic ranges for non-operative patients: Prophylaxsis/treatmen t of DVT: (Range:2.0-3.0) Treatment of pulmonary embolism:(Range:2.0-3 .0) Prevention of systemic embolism from: -tissue heart valves -acute myocardial infarction -valvular heart disease -atrial fibrillation (Range: 2.0-3.0) Mechanical prosthetic valves: (Range: 2.5-3.5) [facility] Specimen Performing Organization Address City/State/[facility] Phone Number [facility], [address] [facility] [place] [address] documented in this encounter Visit Diagnoses Diagnosis Atrial fibrillation, unspecified type (HCC)- Primary Myocardial infarction, unspecified AL type, unspecified artery (HCC) Anticoagulation management encounter Encounter for therapeutic drug monitoring residential 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 therapy documented in this encounter Advance Directives Documents on File Type Date Recorded Patient Medicine Worker Expl anation Advanced Directive Advanced Directive 01/26/2013 11:57 AM Advanced Directive Advanced Directive Advanced Directive Advanced Directive
--- OUTSIDE RECORDS SUMMARY | 2023-09-08 00:53 | External Medical Summary | Summary of Care ---
Author Name Unknown Organization [place] [address] Care Team Providers Care Final Touch Up Painter Name Role Phone Hank Oshea MD Primary Care Provider [phone] Reason for Visit * Reason Comments Other fax Encounter Details Date Type Department Care Team Description 07/20/2019 Telephone Cardiology, [facility] [address] [place] [address] Wilmar Lay PA-C [address] [facility] [place] [address] [phone] Other (fax) Allergies No Known Allergiesdocumented as of this encounter (statuses as of 07/20/2019) Medications Medication Sig Dispensed Refills Start Date End Date Status VITAMIN D 2000 UNITS PO TABS one tablet daily 0 Active nitroglycerin (NITROSTAT) 0.4 MG SUBLIndications:Rascon ry artery disease involving wy[place] coronary artery of [place] heart without angina pectoris,Myocardial infarction involving other [...] 12.5 MG TabletIndications:Salo nary artery disease involving [place] coronary artery of [place] heart without angina pectoris,Chronic atrial fibrillation (HCC) Take 1 Tab by mouth 2 times a day. with food 180 Tab 3 05/24/2019 Active digoxin (LANOXIN) 125 mcg TabletIndications:Salo nary artery disease involving wy[place] coronary artery of wy[place] heart without angina pectoris,Chronic atrial fibrillation (HCC) TAKE ONE TABLET BY MOUTH ON ., ., AND SAT. 45 Tab 3 05/24/2019 Active sacubitril-valsartan 24-26 mg per tab (ENTRESTO) 24-26 MG TABS Take 1 Tab by mouth 2 times a day. 60 Tab 1 07/12/2019 Active documented as of this encounter (statuses as of 07/20/2019) Active Problems Problem Noted Date AICD (automatic cardioverter/defibrillat or) present 02/10/2013 Heart failure, systolic, due to CAD 06/2013 Ischemic cardiomyopathy 01/06/2013 Atrial fibrillation 01/06/2013 CAD (coronary artery disease) 07/25/2012 [place] (myocardial infarction) 07/25/2012 documented as of this encounter (statuses as of 07/20/2019) Immunizations Name Administration Dates Next Due DTaP [...] Telephone Encounter - Caterina Quigley RN - 07/20/2019 10:30 AM EDT Information faxed as requested * Telephone Encounter - Beatrice Paz OSA - 07/20/2019 7:04 AM EDT Caller requesting the following information faxed: Name/Company of caller: [employer] [facility] office Information requested to be faxed: Cardiology note from 05/24/19, ECHO from 07/10/19 and all labs from05/24/19 Fax number: [phone] Attention to Name/Company: [facility] [facility] office Any additional information?: no documented in this encounter Plan of Treatment Upcoming Encounters Date Type Specialty Care Team Description 07/20/2019 Pharmacy Pharmacy [facility] [address] [place] [address] 07/24/2019 Pharmacy Pharmacy Radha Cabrera [facility] Scene [address] [place] [address] 07/28/2019 Pharmacy Skin Lap Bonder, Pharmacy Reimbursement, [facility] [address] [facility] [place] [address] [phone] 09/13/2019 Cardiac Studies Cardiology Gw, [facility] [address] [place] [address] [phone] 12/18/2019 Cardiac Studies Cardiology Gw, [facility] [address] [place] [address] [phone] 01/05/2020 Office Visit Cardiology Denis Langston MD [address] [place] [address] [phone] 03/22/2020 Cardiac Studies Cardiology Isi Yu [address] [place] [address] [phone] Health Maintenance Due Date Last Done Comments [...]
--- OUTSIDE RECORDS SUMMARY | 2023-09-08 00:53 | External Medical Summary | Summary of Care ---
Author Name Unknown Organization [facility] [place] [address] Care Team Providers Care Tray Filler Name Role Phone Hank Oshea MD Primary Care Provider [phone] Reason for Visit * Reason Comments Medication Question Encounter Details Date Type Department Care Team Description 07/13/2019 Telephone Pharmacy, [facility] 132 [facility] [place] [address] [facility] [address] [facility] [place] [address] Medication Question Allergies No Known Allergiesdocumented as of this encounter (statuses as of 07/27/2019) Medications Medication Sig Dispensed Refills Start Date End Date Status VITAMIN D 2000 UNITS PO TABS one tablet daily 0 Active nitroglycerin (NITROSTAT) 0.4 MG SUBLIndications:Rascon ry artery disease involving bois forte coronary artery of bo[place]te heart without angina pectoris,Myocardial infarction involving other [...] 12.5 MG TabletIndications:Salo nary artery disease involving bo[place] for[place] coronary artery of bois for[place] heart without angina pectoris,Chronic atrial fibrillation Take 1 Tab by mouth 2 times a day. with food 180 Tab 3 05/24/2019 Active digoxin (LANOXIN) 125 mcg TabletIndications:Salo nary artery disease involving bois forte coronary artery of bois forte heart without angina pectoris,Chronic atrial fibrillation TAKE ONE TABLET BY MOUTH ON ., TH., AND SAT. 45 Tab 3 05/24/2019 Active sacubitril-valsartan 24-26 mg per tab (ENTRESTO) 24-26 MG TABS Take 1 Tab by mouth 2 times a day. 60 Tab 1 07/12/2019 Active documented as of this encounter (statuses as of 07/27/2019) Active Problems Problem Noted Date AICD (automatic cardioverter/defibrillat or) present 02/10/2013 Heart failure, systolic, due to CAD 06/2013 Ischemic cardiomyopathy 01/06/2013 Atrial fibrillation 01/06/2013 CAD (coronary artery disease) 07/25/2012 [place] (myocardial infarction) 07/25/2012 documented as of this encounter (statuses as of 07/27/2019) Immunizations Name Administration Dates Next Due DTaP [...] encounter Miscellaneous Notes * Telephone Encounter - iVola Hernandez [facility] - 07/13/2019 9:36 AM EDT Frank, Was wondering if you could look into this patient's Entresto, which is going to cost 250/month and is unaffordable? Could we see if he qualifies for any assistance with that? Thanks much appreciated, Viola CHARLES documented in this encounter Plan of Treatment Upcoming Encounters Date Type Specialty Care Team Description 07/28/2019 Pharmacy Physicist [facility], Pharmacy Reimbursement, [facility] [address] [facility] [place] [address] [phone] 07/28/2019 Pharmacy Pharmacy [facility], [facility] [address] [place] [address] 09/04/2019 Pharmacy Pharmacy Deborah, [facility] [address] [place] [address] 09/13/2019 Cardiac Studies Cardiology , [facility] [address] [place] [address] [phone] 12/18/2019 Cardiac Studies Cardiology , [facility] [address] [place] [address] [phone] 01/05/2020 Office Visit Cardiology Denis Langston MD [address] [place] [address] [phone] 03/22/2020 Cardiac Studies Cardiology Isi Yu [facility] [address] [place] [address] [phone] Health Maintenance Due Date Last Done Comments [...] Documents on File Type Date Recorded Patient Negative Developer Expl anation Advanced Directive Advanced Directive 01/26/2013 11:57 AM Advanced Directive Advanced Directive Advanced Directive Advanced Directive
--- OUTSIDE RECORDS SUMMARY | 2023-09-08 00:53 | External Medical Summary ---
Author Name Unknown Address Unknown Organization R:IT USE ONLY!!! Laboratory Report Ordering Provider Test Date Status [facility] 07/24/2019 11:30:00 Final Observation Date Value Abnormality Reference Status INR BldC 07/24/2019 11:31 3.2 Fin al Ds INR range/Ds INR det Patient-Rto 07/24/2019 11:31 Final Therapeutic ranges for non-o perative patients: Prophylaxsis/treatment of DVT: (Range:2.0-3.0) Treatment of pulmonary embolism:(Range:2.0-3.0) Prevention of systemic embolism from: -tissue heart valves -acute myocardial infarction -valvular heart disease -atrial fibrillation (Range: 2.0-3.0) Mechanical prosthetic valves: (Range: 2.5-3.5) Performing Location IT USE ONLY!!!
--- OUTSIDE RECORDS SUMMARY | 2023-09-08 00:53 | External Medical Summary | Summary of Care ---
Author Name Unknown Organization [place] [address] Care Team Providers Care Detective Chief Name Role Phone Hank Oshea MD Primary Care Provider [phone] Reason for Visit * Reason Comments Pre Cert/Prior Auth ENTRESTO Encounter Details Date Type Department Care Team Description 07/12/2019 Telephone Cardiology, [facility] [place] [address] Wilmar Lay PA-C [address] [facility] [place] [address] [phone] Pre Cert/Prior Auth (ENTRESTO) Allergies No Known Allergiesdocumented as of this encounter (statuses as of 07/25/2019) Medications Medication Sig Dispensed Refills Start Date End Date Status VITAMIN D 2000 UNITS PO TABS one tablet daily 0 Active nitroglycerin (NITROSTAT) 0.4 MG SUBLIndications:Co ronary artery disease involving [place] coronary artery of [place] heart without angina pectoris,Myocardia l infarction involving [...] 12.5 MG TabletIndications: Coronary artery disease involving [place] coronary artery of [place] heart without angina pectoris,Chronic atrial fibrillation (HCC) Take 1 Tab by mouth 2 times a day. with food 180 Tab 3 05/24/2019 Active digoxin (LANOXIN) 125 mcg TabletIndications: Coronary artery disease involving [place] coronary artery of [place] heart without angina pectoris,Chronic atrial fibrillation (HCC) [...] as of this encounter (statuses as of 07/25/2019) Active Problems Problem Noted Date AICD (automatic cardioverter/defibrillat or) present 02/10/2013 Heart failure, systolic, due to CAD 06/2013 Ischemic cardiomyopathy 01/06/2013 Atrial fibrillation 01/06/2013 CAD (coronary artery disease) 07/25/2012 AK (myocardial infarction) 07/25/2012 documented as of this encounter (statuses as of 07/25/2019) Immunizations Name Administration Dates Next Due DTaP [...] Miscellaneous Notes * Telephone Encounter - Viola Hernandez RPh - 07/13/2019 9:35 AM EDT No alternative to Entresto. Will send message to pharmacy reimbursement to see if patient qualifies for assistance with this medication. Viola Hoover * Telephone Encounter - Blanca Henry CPhT - 07/13/2019 9:24 AM EDT [facility] calling saying ENTRESTO, even though approved by drug plan, will cost pt $250. Can something else be prescribed? Thank you, Blanca Henry Property Inspector Pharmacy Refill Call Center 07/13/2019, 9:26 AM * Telephone Encounter - Yina Elizondo RN - 07/12/2019 2:23 PM EDT Fax received in office. Prior authorization approved for Entresto, will place for scanning. * Telephone Encounter - Viola Hernandez RP - 07/12/2019 1:49 PM EDT Will complete PA Viola Hoover * Telephone Encounter - Yina Elizondo RN - 07/12/2019 1:16 PM EDT Prior auth initiated via CoverMyMeds. Prior auth questions available for answering at this time. Prior auth del cid [id number] * Telephone Encounter - Luiza Burkett LPN - 07/12/2019 12:48 PM EDT Received fax from [facility] [address] about needing a pior auth for the entresto 24-26 mg. Insurance plan federal employee program Insurance contact [phone] documented in this encounter Plan of Treatment Upcoming Encounters Date Type Specialty Care Team Description 07/28/2019 Pharmacy Transportation Program Director, Pharmacy [facility], [facility] [address] [facility] [place] [id number] [phone] 07/28/2019 Pharmacy Pharmacy [facility], [facility] [address] [place] [address] 09/04/2019 Pharmacy Pharmacy Radha Cabrera [facility] [address] [place] [address] 09/13/2019 Cardiac Studies Cardiology Gw, [facility] [address] [place] [address] [phone] 12/18/2019 Cardiac Studies Cardiology [facility], [facility] [place] [address] [phone] 01/05/2020 Office Visit Cardiology Denis Langston MD [address] [place] [address] [phone] 03/22/2020 Cardiac Studies Cardiology Isi Yu [facility] [address] [place] [address] [phone] Health Maintenance Due Date Last Done Comments [...] Documents on File Type Date Recorded Patient Training And Quality Manager Expl anation Advanced Directive Advanced Directive 01/26/2013 11:57 AM Advanced Directive Advanced Directive Advanced Directive Advanced Directive
--- OUTSIDE RECORDS SUMMARY | 2023-09-08 00:53 | External Medical Summary | Summary of Care ---
Author Name Unknown Organization [place] [address] Care Team Providers Care Physician Liaison Name Role Phone Hank Oshea MD Primary Care Provider [phone] Reason for Referral * Precert (Routine) Status Reason Specialty Diagnoses / Procedures Referred By Contact Referred To Contact Pending Review Precert Cardiac Studies Diagnoses Heart failure, systolic, due to CAD (HCC) Ischemic cardiomyopathy Procedures ECHO, COMPLETE (2D), TRANS-THORACIC Wilmar Lay PA-C [address] [place] [address] Reason for Visit * Reason Comments Cardiology Study Echo Encounter Details Date Type Department Care Team Description 07/10/2019 Cardiac Studies Cardiac Studies, [facility] [address] [place] [address] Gw, Physical Chemist 1 [address] [place] [address] [phone] Ischemic cardiomyopathy*; Heart failure, systolic, due to CAD (HCC) Allergies No Known Allergiesdocumented as of this encounter (statuses as of 07/10/2019) Medications Medication Sig Dispensed Refills Start Date End Date Status VITAMIN D 2000 UNITS PO TABS one tablet daily 0 Active nitroglycerin (NITROSTAT) 0.4 MG SUBLIndications:Rascon ry artery disease involving [place] coronary artery of [...] 12.5 MG TabletIndications:Salo nary artery disease involving [place] coronary artery of [place] heart without angina pectoris,Chronic atrial fibrillation (HCC) Take 1 Tab by mouth 2 times a day. with food 180 Tab 3 05/24/2019 Active digoxin (LANOXIN) 125 mcg TabletIndications:Salo nary artery disease involving [place] coronary artery of [place] heart without angina pectoris,Chronic atrial fibrillation (HCC) TAKE ONE TABLET BY MOUTH ON ., ., AND SAT. 45 Tab 3 05/24/2019 Active documented as of this encounter (statuses as of 07/10/2019) Active Problems Problem Noted Date AICD (automatic cardioverter/defibrillat or) present 02/10/2013 Heart failure, systolic, due to CAD 06/2013 Ischemic cardiomyopathy 01/06/2013 Atrial fibrillation 01/06/2013 CAD (coronary artery disease) 07/25/2012 [place] (myocardial infarction) 07/25/2012 documented as of this encounter (statuses as of 07/10/2019) Immunizations Name Administration Dates Next Due DTaP [...] of this encounter Progress Notes * Ana Tinsley TECH - 07/10/2019 3:40 PM EDT Echo completed today by food technician per provider order. documented in this encounter Plan of Treatment Upcoming Encounters Date Type Specialty Care Team Description 07/24/2019 Pharmacy Pharmacy [place], [facility] [address] [place] [address] 09/13/2019 Cardiac Studies Cardiology Gw, [facility] [address] [facility] [place] [address] [phone] 12/18/2019 Cardiac Studies Cardiology , [facility] [address] [place] [address] [phone] 01/05/2020 Office Visit Cardiology Denis Langston MD [address] [place] [address] [phone] 03/22/2020 Cardiac Studies Cardiology Isi Yu [facility] [address] [place] [address] [phone] Health Maintenance Due Date Last Done Comments [...] Documents on File Type Date Recorded Patient Perianesthesia Manager Expl anation Advanced Directive Advanced Directive 01/26/2013 11:57 AM Advanced Directive Advanced Directive Advanced Directive Advanced Directive
--- OUTSIDE RECORDS SUMMARY | 2023-09-08 00:53 | External Medical Summary | Summary of Care ---
Author Name Unknown Organization [place] [address] Care Team Providers Care Public Information Director Name Role Phone Hank Oshea MD Primary Care Provider [phone] Reason for Visit * Reason Comments Patient Assistance Program Encounter Details Date Type Department Care Team Description 07/13/2019 Pharmacy Pharmacy, [place] [facility] [address] [place] [address] Coordinator, Pharmacy Reimbursement, formerly [facility] [address] [place] [address] Heart failure, systolic, due to CAD (HCC)* Allergies No Known Allergiesdocumented as of this encounter (statuses as of 07/14/2019) Medications Medication Sig Dispensed Refills Start Date End Date Status VITAMIN D 2000 UNITS PO TABS one tablet daily 0 Active nitroglycerin (NITROSTAT) 0.4 MG SUBLIndications:Rascon ry artery disease involving [place] coronary artery of [place] heart without angina pectoris,Myocardial infarction involving other [...] 12.5 MG TabletIndications:Salo nary artery disease involving [place] coronary artery of [place] heart without angina pectoris,Chronic atrial fibrillation (HCC) Take 1 Tab by mouth 2 times a day. with food 180 Tab 3 05/24/2019 Active digoxin (LANOXIN) 125 mcg TabletIndications:Salo nary artery disease involving [place] coronary artery of [place] heart without angina pectoris,Chronic atrial fibrillation (HCC) [...] new referral was received from Viola Hernandez, [facility], Was wondering if you could look into this patient's Entresto, which is going to cost 250/month and is unaffordable? Could we see if he qualifies for any assistance with that? Thanks much appreciated, Viola [facility] staff will discuss available assistance. Coverage: Medicare RX: Entresto Pace: Provider: Wilmar Lay I called the patient and confirmed according to his income level he should qualify for free drug through [employer]. I mailed him an application with a self addressed return envelope so he can send it back to me once completed so I can forward on to the dye mixer for consideration. KEITH Mullins Pharmaceutical Private Advisor 07/14/2019, 10:05 AM documented in this encounter Plan of Treatment Upcoming Encounters Date Type Specialty Care Team Description 07/20/2019 Pharmacy Pharmacy Petros [facility] [address] [place] [address] 07/24/2019 Pharmacy Pharmacy Radha Cabrera [facility] [address] [address] 09/13/2019 Cardiac Studies Cardiology , [facility] [address] [place] [address] [phone] 12/18/2019 Cardiac Studies Cardiology Gw, [facility] [address] [place] [address] [phone] 01/05/2020 Office Visit Cardiology Denis Langston MD [address] [place] [address] [phone] 03/22/2020 Cardiac Studies Cardiology Isi Yu [facility] [address] [place] [address] [phone] Health Maintenance Due Date Last Done Comments [...] Documents on File Type Date Recorded Patient Retail Custodial Associate Expl anation Advanced Directive Advanced Directive 01/26/2013 11:57 AM Advanced Directive Advanced Directive Advanced Directive Advanced Directive
--- OUTSIDE RECORDS SUMMARY | 2023-09-08 00:53 | External Medical Summary | Summary of Care ---
Author Name Unknown Organization [place] [address] Care Team Providers Care Salon Receptionist Name Role Phone Hank Oshea MD Primary Care Provider [phone] Reason for Visit * Reason Comments Patient Assistance Program Encounter Details Date Type Department Care Team Description 07/21/2019 Pharmacy Pharmacy, [place] [facility] [address] [place] [address] Coordinator, Pharmacy Reimbursement, [facility] [address] [place] [address] Heart failure, systolic, due to CAD (HCC)* Allergies No Known Allergiesdocumented as of this encounter (statuses as of 07/21/2019) Medications Medication Sig Dispensed Refills Start Date End Date Status VITAMIN D 2000 UNITS PO TABS one tablet daily 0 Active nitroglycerin (NITROSTAT) 0.4 MG SUBLIndications:Rascon ry artery disease involving [place] coronary artery of [place] heart without angina pectoris,Myocardial infarction involving other [...] 12.5 MG TabletIndications:Salo nary artery disease involving [place] coronary artery of [place] heart without angina pectoris,Chronic atrial fibrillation (HCC) Take 1 Tab by mouth 2 times a day. with food 180 Tab 3 05/24/2019 Active digoxin (LANOXIN) 125 mcg TabletIndications:Salo nary artery disease involving [place] coronary artery of [place] heart without angina pectoris,Chronic atrial fibrillation (HCC) TAKE ONE TABLET BY MOUTH ON ., ., AND SAT. 45 Tab 3 05/24/2019 Active sacubitril-valsartan 24-26 mg per tab (ENTRESTO) 24-26 MG TABS Take 1 Tab by mouth 2 times a day. 60 Tab 1 07/12/2019 Active documented as of this encounter (statuses as of 07/21/2019) Active Problems Problem Noted Date AICD (automatic cardioverter/defibrillat or) present 02/10/2013 Heart failure, systolic, due to CAD 06/2013 Ischemic cardiomyopathy 01/06/2013 Atrial fibrillation 01/06/2013 CAD (coronary artery disease) 07/25/2012 [place] (myocardial infarction) 07/25/2012 documented as of this encounter (statuses as of 07/21/2019) Immunizations Name Administration Dates Next Due DTaP [...] Progress Notes * Faiza Apple OSA - 07/21/2019 2:30 PM EDT Received call from patient [phone] (home) Patient Phone Numbers Coverage: Medicare Medication:Entresto Patient called and left a message has some questions on [employer] PAP. Called back and left message. KEITH Mullins Pharmaceutical Inspector Wire Products 07/21/2019, 12:10 PM documented in this encounter Plan of Treatment Upcoming Encounters Date Type Specialty Care Team Description 07/24/2019 Pharmacy Pharmacy [place], [facility] [address] [facility] [address] [place] [facility] [address] 07/28/2019 Pharmacy Cartridge [place], Pharmacy [address] [place] [address] [phone] 07/28/2019 Pharmacy Pharmacy [facility] [address] [place] [address] 09/13/2019 Cardiac Studies Cardiology , [facility] [address] [place] [address] [phone] 12/18/2019 Cardiac Studies Cardiology Gw, [facility] [address] [place] [address] [phone] 01/05/2020 Office Visit Cardiology Denis Langston MD [address] [place] [address] [phone] 03/22/2020 Cardiac Studies Cardiology Isi Yu [facility] [address] [place] [address] [phone] Health Maintenance Due Date Last Done Comments [...] Documents on File Type Date Recorded Patient Pediatrician Expl anation Advanced Directive Advanced Directive 01/26/2013 11:57 AM Advanced Directive Advanced Directive Advanced Directive Advanced Directive
--- OUTSIDE RECORDS SUMMARY | 2023-09-08 00:53 | External Medical Summary | Summary of Care ---
Author Name Unknown Organization [place] [address] Care Team Providers Care Mushroom Farmer Name Role Phone Hank Oshae MD Primary Care Provider [phone] Reason for Visit * Reason Comments Dosage Adjustment Via Phone (anticoag Cl inic) Congestive Heart Failure Encounter Details Date Type Department Care Team Description 07/13/2019 Pharmacy Pharmacy, [facility] [address] [facility] [address] Heart failure, systolic, due to CAD (HCC)* Allergies No Known Allergiesdocumented as of this encounter (statuses as of 07/13/2019) Medications Medication Sig Dispensed Refills Start Date End Date Status VITAMIN D 2000 UNITS PO TABS one tablet daily 0 Active nitroglycerin (NITROSTAT) 0.4 MG SUBLIndications:Rascon ry artery disease involving [place] coronary artery of [place] heart without angina pectoris,Myocardial infarction involving other [...] 12.5 MG TabletIndications:Salo nary artery disease involving [place] coronary artery of [place] heart without angina pectoris,Chronic atrial fibrillation (HCC) Take 1 Tab by mouth 2 times a day. with food 180 Tab 3 05/24/2019 Active digoxin (LANOXIN) 125 mcg TabletIndications:Salo nary artery disease involving [place] coronary artery of [place] heart without angina pectoris,Chronic atrial fibrillation (HCC) TAKE ONE TABLET BY MOUTH ON ., TH., AND SAT. 45 Tab 3 05/24/2019 Active sacubitril-valsartan 24-26 mg per tab (ENTRESTO) 24-26 MG TABS Take 1 Tab by mouth 2 times a day. 60 Tab 1 07/12/2019 Active documented as of this encounter (statuses as of 07/13/2019) Active Problems Problem Noted Date AICD (automatic cardioverter/defibrillat or) present 02/10/2013 Heart failure, systolic, due to CAD 06/2013 Ischemic cardiomyopathy 01/06/2013 Atrial fibrillation 01/06/2013 CAD (coronary artery disease) 07/25/2012 [place] (myocardial infarction) 07/25/2012 documented as of this encounter (statuses as of 07/13/2019) Immunizations Name Administration Dates Next Due DTaP [...] encounter Progress Notes * Viola Hernandez [facility] - 07/13/2019 8:34 AM EDT [place] approved for Entresto. Called [facility] pharmacy cost of entresto per month is $250/ Will send message to pharmacy reimbursement to see if patient qualifies for any assistance with this cost. Viola Hernandez, Pharm D Clinical Pharmacist 07/13/2019, 9:35 AM documented in this encounter Plan of Treatment Upcoming Encounters Date Type Specialty Care Team Description 07/20/2019 Pharmacy Pharmacy [place], [facility] [address] [facility] [place] [address] 07/24/2019 Pharmacy Pharmacy Radha Cabrera [facility] [address] [facility] [place] [address] 09/13/2019 Cardiac Studies Cardiology , Remote Card[facility] [address] [facility] [place] [address] [phone] 12/18/2019 Cardiac Studies Cardiology , [facility] [address] [facility] [place] [address] [phone] 01/05/2020 Office Visit Cardiology Denis Langston MD [address] [place] [address] [phone] 03/22/2020 Cardiac Studies Cardiology Gigi [facility] [address] [place] [address] [phone] Health Maintenance Due Date Last Done Comments [...] Documents on File Type Date Recorded Patient Recoverer Expl anation Advanced Directive Advanced Directive 01/26/2013 11:57 AM Advanced Directive Advanced Directive Advanced Directive Advanced Directive
--- OUTSIDE RECORDS SUMMARY | 2023-09-08 00:53 | External Medical Summary | Summary of Care ---
Author Name Unknown Organization [place] [address] Care Team Providers Care Inventory Worker Name Role Phone Hank Oshea MD Primary Care Provider [phone] Reason for Visit * Reason Comments Dosage Adjustment Via Phone (anticoag Cl inic) Congestive Heart Failure Encounter Details Date Type Department Care Team Description 07/12/2019 Pharmacy Pharmacy, [facility] [place] [address] [facility] [place] [address] Heart failure, systolic, due to CAD (HCC)* Allergies No Known Allergiesdocumented as of this encounter (statuses as of 07/12/2019) Medications Medication Sig Dispensed Refills Start Date End Date Status VITAMIN D 2000 UNITS PO TABS one tablet daily 0 Active nitroglycerin (NITROSTAT) 0.4 MG SUBLIndications:Rascon ry artery disease involving [place] coronary artery [...] 12.5 MG TabletIndications:Salo nary artery disease involving [place] coronary artery of [place] heart without angina pectoris,Chronic atrial fibrillation (HCC) Take 1 Tab by mouth 2 times a day. with food 180 Tab 3 05/24/2019 Active digoxin (LANOXIN) 125 mcg TabletIndications:Salo nary artery disease involving [place] coronary artery of [place] heart without angina pectoris,Chronic atrial fibrillation (HCC) [...] Progress Notes * Viola Hernandez RPh - 07/12/2019 8:48 AM EDT Indication for Pharmacist Medication Therapy Management: Diagnosis: heart failure other Initiate Entresto Relevant History: Echo with severely reduced heart function 20-25% Target LDL: LDL less than 70 Other Target: Increase EF Minimum frequency patient should be seen in person for medication management: as appropriate per clinical condition and patient status Current HF Medications: Coreg 12.5 mg BID diogxin 125 mcg daily plavix 75 mg daily Lasix 20 mg daily crestor 5 mg QOD Ramipril 2.5 mg daily Will send Entresto prescription to pharmacy and work on getting PA. Follow up in 1 day with PA status. Viola Hernandez, Pharm D Clinical Pharmacist 07/12/2019, 8:51 AM documented in this encounter Plan of Treatment Upcoming Encounters Date Type Specialty Care Team Description 07/13/2019 Pharmacy Pharmacy [facility] [address] [place] [address] 07/24/2019 Pharmacy Pharmacy Radha Cabrera [facility] [address] [facility] [address] 09/13/2019 Cardiac Studies Cardiology , [facility] [address] [place] [address] [phone] 12/18/2019 Cardiac Studies Cardiology , [facility] [address] [place] [address] [phone] 01/05/2020 Office Visit Cardiology Denis Langston MD [address] [place] [address] [phone] 03/22/2020 Cardiac Studies Cardiology Isi Yu [facility] [address] [place] [address] [phone] Health Maintenance Due Date Last Done Comments [...] Documents on File Type Date Recorded Patient Sampler Ovens Expl anation Advanced Directive Advanced Directive 01/26/2013 11:57 AM Advanced Directive Advanced Directive Advanced Directive Advanced Directive
--- OUTSIDE RECORDS SUMMARY | 2023-09-08 00:53 | External Medical Summary | Summary of Care ---
Author Name Unknown Organization [place] [address] Care Team Providers Care Income Auditor Name Role Phone Hank Oshea MD Primary Care Provider Reason for Visit * Reason Comments Dosage Adjustment Via Phone (anticoag Cl inic) Encounter Details Date Type Department Care Team Description 07/28/2019 Pharmacy Pharmacy, [facility] [address] [facility] [place] [address] [facility] [address] Heart failure, systolic, due to CAD (HCC)* Allergies No Known Allergiesdocumented as of this encounter (statuses as of 07/28/2019) Medications Medication Sig Dispensed Refills Start Date End Date Status VITAMIN D 2000 UNITS PO TABS one tablet daily 0 Active nitroglycerin (NITROSTAT) 0.4 MG SUBLIndications:Rascon ry artery disease involving [place] coronary artery of [place] heart without angina pectoris,Myocardial infarction involving other [...] 12.5 MG TabletIndications:Salo nary artery disease involving [place] coronary artery of [place] heart without angina pectoris,Chronic atrial fibrillation Take 1 Tab by mouth 2 times a day. with food 180 Tab 3 05/24/2019 Active digoxin (LANOXIN) 125 mcg TabletIndications:Salo nary artery disease involving [place] coronary artery of [place] heart without angina pectoris,Chronic atrial fibrillation TAKE [...] this encounter Progress Notes * Viola Hernandez [facility] - 07/28/2019 7:59 AM EDT Patient current filling out [employer] PAP for Entresto per Pharm Reimbursement. Follow up in 1 week with status. Viola Hernandez, Pharm D Clinical Pharmacist 07/28/2019, 8:00 AM documented in this encounter Plan of Treatment Upcoming Encounters Date Type Specialty Care Team Description 07/28/2019 Pharmacy [facility], Pharmacy [facility], [facility] [address] [facility] [place] [address] [phone] 08/04/2019 Pharmacy Pharmacy [facility] [address] [facility] [place] [address] 09/04/2019 Pharmacy Pharmacy Cass[place], [facility] [address] [facility] [address] 09/13/2019 Cardiac Studies Cardiology [facility] [address] [facility] [place] [address] [phone] 12/18/2019 Cardiac Studies Cardiology Gw, [facility] [address] [facility] [place] [address] [phone] 01/05/2020 Office Visit Cardiology Denis Langston MD [address] [facility] [place] [address] [phone] 03/22/2020 Cardiac Studies Cardiology [facility] [address] [facility] [place] [address] [phone] Health Maintenance Due Date Last Done Comments [...] Documents on File Type Date Recorded Patient Component Prep Operator Expl anation Advanced Directive Advanced Directive 01/26/2013 11:57 AM Advanced Directive Advanced Directive Advanced Directive Advanced Directive
--- OUTSIDE RECORDS SUMMARY | 2023-09-08 00:54 | External Medical Summary | Summary of Care ---
Author Name Unknown Organization [place] [address] Care Team Providers Care Purchasing Assistant Name Role Phone Hank Oshea MD Primary Care Provider Reason for Visit * Reason Comments Dosage Adjustment In Person (Anticoag Cl inic) Encounter Details Date Type Department Care Team Description 06/13/2019 Pharmacy Pharmacy, [facility] [address] [place] [address] [facility] [address] [facility] [place] [id number] Myocardial infarction, unspecified IA type, unspecified artery (HCC)*; Chronic atrial fibrillation (HCC); Atrial fibrillation, unspecified type (HCC); Anticoagulation management encounter; 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 with food 180 Tab 3 05/24/2019 Active digoxin (LANOXIN) 125 mcg TabletIndications:Salo nary artery disease involving te[place] coronary artery of te[place] heart without angina pectoris,Chronic atrial fibrillation (HCC) TAKE ONE TABLET BY MOUTH ON ., TH., AND SAT. 45 Tab 3 05/24/2019 Active documented as of this encounter (statuses as of 06/13/2019) Active Problems Problem Noted Date AICD (automatic cardioverter/defibrillat or) present 02/10/2013 Heart failure, systolic, due to CAD 06/2013 Ischemic cardiomyopathy 01/06/2013 Atrial fibrillation 01/06/2013 CAD (coronary artery disease) 07/25/2012 IA (myocardial infarction) 07/25/2012 documented as of this encounter (statuses as of 06/13/2019) Immunizations Name Administration Dates Next Due DTaP [...] Progress Notes * Anibal Mcfarland RPh - 06/13/2019 11:14 AM EDT Medication Therapy Disease Management - Anticoagulation Lucian Larson Jr. is an 83 year old male who presents to clinic for anticoagulation management and education. Current Anticoagulation Regimen: warfarin 10mg F, 5mg all other days (5mg tabs) Anticoagulation Medication Adherence: Patient compliant Patient-Reported Symptoms: Bruising: yes; he has a couple on his left arm, unknown reason Bleeding: yes; his upper left arm bled at [employer] Wednesday, unknown reason Miscellaneous: no Interval Health and/or Dietary Status Changes: No significant health status or dietary changes noted today INR: 3.3 Target range: 2.0-3.0 Recommendations: Skip today's dose then resume the current dose of warfarin 10mg F, 5mg all other days (5mg tabs) Follow-up: Patient to repeat PT/INR in 6 week(s) to assess dosing of warfarin for anticoagulation management. Anibal Caceres RPh, CDE, CACP Clinical Pharmacist Medication Therapy Disease Management 06/13/2019, 11:14 AM documented in this encounter Plan of Treatment Upcoming Encounters Date Type Specialty Care Team Description 07/10/2019 Cardiac Studies Cardiac Studies , Manager [facility] [address] [place] [address] [phone] 07/24/2019 Pharmacy Pharmacy Radha Cabrera [facility] [address] [address] [facility] [place] [address] 09/13/2019 Cardiac Studies Cardiology [facility], [facility] [address] [place] [address] [phone] 12/18/2019 Cardiac Studies Cardiology [facility], [facility] [address] [place] [address] [phone] 01/05/2020 Office Visit Cardiology Denis Langston MD [address] [place] [address] [phone] 03/22/2020 Cardiac Studies Cardiology Isi [facility] [address] [place] [address] [phone] Health Maintenance Due Date Last Done Comments [...] Date/Time Associated Diagnosis Comments INR FINGERSTICK STAT 06/13/2019 11:28 AM EDT Atrial fibrillation, unspecified type (HCC) Myocardial infarction, unspecified IA type, unspecified artery (HCC) Anticoagulation management encounter custodial 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 therapy documented in this encounter Results * INR FINGERSTICK (06/13/2019 11:28 AM EDT) FINGERSTICK INR 3.3 INR [facility] THERAPEUTIC RANGE Comment: Therapeutic ranges for non-operative patients: Prophylaxsis/treatmen t of DVT: (Range:2.0-3.0) Treatment of pulmonary embolism:(Range:2.0-3 .0) Prevention of systemic embolism from: -tissue heart valves -acute myocardial infarction -valvular heart disease -atrial fibrillation (Range: 2.0-3.0) Mechanical prosthetic valves: (Range: 2.5-3.5) [facility] Specimen Performing Organization Address City/State/Zipcod e Phone Number [facility], [address] [facility] [place] [address] documented in this encounter Visit Diagnoses Diagnosis Myocardial infarction, unspecified IA type, unspecified artery (HCC)- Primary Chronic atrial fibrillation (HCC) Atrial fibrillation Atrial fibrillation, unspecified type (HCC) Anticoagulation management encounter Encounter for therapeutic drug monitoring custodial 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 therapy documented in this encounter Advance Directives Documents on File Type Date Recorded Patient Box Tender Expl anation Advanced Directive Advanced Directive 01/26/2013 11:57 AM Advanced Directive Advanced Directive Advanced Directive Advanced Directive
--- OUTSIDE RECORDS SUMMARY | 2023-09-08 00:54 | External Medical Summary ---
Author Name Unknown Address Unknown Organization R:IT USE ONLY!!! Laboratory Report Ordering Provider Test Date Status FIDELINA HOBSON [facility] 05/02/2019 11:29:00 Final Observation Date Value Abnormality Reference Status INR BldC 05/02/2019 11:30 2.5 Fin al Ds INR range/Ds INR det Patient-Rto 05/02/2019 11:30 Final Therapeutic ranges for non-o perative patients: Prophylaxsis/treatment of DVT: (Range:2.0-3.0) Treatment of pulmonary embolism:(Range:2.0-3.0) Prevention of systemic embolism from: -tissue heart valves -acute myocardial infarction -valvular heart disease -atrial fibrillation (Range: 2.0-3.0) Mechanical prosthetic valves: (Range: 2.5-3.5) Performing Location IT USE ONLY!!!
--- OUTSIDE RECORDS SUMMARY | 2023-09-08 00:54 | External Medical Summary | Summary of Care ---
Author Name Unknown Organization [place] [address] Care Team Providers Care First Leveler Name Role Phone Hank Oshea MD Primary Care Provider [phone] Reason for Referral * Precert (Routine) Status Reason Specialty Diagnoses / Procedures Referred By Contact Referred To Contact Pending Review Precert Cardiac Studies Diagnoses Heart failure, systolic, due to CAD (HCC) Ischemic cardiomyopathy Procedures ECHO, COMPLETE (2D), TRANS-THORACIC Wilmar Lay PA-C [address] [address] Reason for Visit * Reason Comments Follow Up 6 month return Encounter Details Date Type Department Care Team Description 05/24/2019 Office Visit Cardiology, [facility] [address] [address] Wilmar Lay PA-C [address] [place] [address] [phone] Ischemic cardiomyopathy*; Coronary artery disease involving telida coronary artery of telida heart without angina pectoris; Chronic atrial fibrillation (HCC); Heart failure, systolic, due to CAD (HCC); Myocardial infarction, unspecified CA type, unspecified artery (HCC); Acquired hypothyroidism; Dyslipidemia, goal LDL below 70; Anticoagulated on Coumadin Allergies No Known Allergiesdocumented as of this encounter (statuses as of 05/28/2019) Medications Medication Sig Dispensed Refills Start Date End Date Status VITAMIN D 2000 UNITS PO TABS one tablet daily 0 Active nitroglycerin (NITROSTAT) 0.4 MG SUBLIndications:Co ronary artery disease involving telida coronary artery of telida heart without angina pectoris,Myocardia l infarction involving [...] 3 11/03/2018 Active rosuvastatin (CRESTOR) 5 MG TabletIndications: Heart [...] 12.5 MG TabletIndications: Coronary artery disease involving telida coronary artery of telida heart without angina pectoris,Chronic atrial fibrillation (HCC) Take 1 Tab by mouth 2 times a day. with food 180 Tab 3 05/24/2019 Active digoxin (LANOXIN) 125 mcg TabletIndications: Coronary artery disease involving telida coronary artery of telida heart without angina pectoris,Chronic atrial fibrillation (HCC) TAKE ONE TABLET BY MOUTH ON TUES., THURS., AND SAT. 45 Tab 3 05/24/2019 Active carvedilol (COREG) 12.5 MG TabletIndications: Coronary artery disease involving telida coronary artery of telida heart without angina pectoris Take 1 Tab by mouth 2 times a day. with food 180 Tab 3 06/08/2018 05/24/2019 Discontinued digoxin (LANOXIN) 125 mcg Tablet TAKE ONE TABLET BY MOUTH ON TUES., THURS., AND SAT. 40 Tab 5 09/26/2018 05/24/2019 Discontinued documented as of this encounter (statuses as of 05/28/2019) Active Problems Problem Noted Date AICD (automatic cardioverter/defibrillat or) present 02/10/2013 Heart failure, systolic, due to CAD 06/2013 Ischemic cardiomyopathy 01/06/2013 Atrial fibrillation 01/06/2013 CAD (coronary artery disease) 07/25/2012 CA (myocardial infarction) 07/25/2012 documented as of this encounter (statuses as of 05/28/2019) Immunizations Name Administration Dates Next Due DTaP [...] Reading Time Taken Comments Blood Pressure 120/72 05/24/2019 12:47 PM EDT Pulse 68 05/24/2019 12:47 PM EDT Temperature - - Respiratory Rate 16 05/24/2019 12:47 PM EDT Oxygen Saturation - - Inhaled Oxygen Concentration - - Weight 75.9 kg (167 lb 6.4 oz) 05/24/2019 12:47 PM EDT Height - - Body Mass Index 24.02 03/21/2018 12:57 PM EDT documented in this encounter Progress Notes * Wilmar Lay PA-C - 05/24/2019 12:54 PM EDT SUBJECTIVE: Lucina Rodolfo Larson Jr. Is a 83 year old male here today for cardiology evaluation. User Experience Lead is Dr. Denis Langston. No chest pain. No sublingual nitroglycerin use. No palpitations. No ICD discharges. Stable shortness of breath. No orthopnea or PND to accompany the increased edema associated with skipping furosemide 1-2 days per week and the recent intake of ham. He notes a chronic stable cough productive of mucous when laying down. No hemoptysis. No night sweats. Weight is down two pounds from last evaluation in this office. Chronic balance issues. Ambulation is via a cane. No overt dizziness, near syncope, or syncope. No melena, hematochezia, or hematuria. History: 1. Atherosclerotic coronary disease with prior [...] Diagnosis Code CAD (coronary artery disease) I25.10 CA (myocardial infarction) ([facility]) I21.9 Heart failure, systolic, due to CAD ([facility]) I50.20, I25.10 Ischemic cardiomyopathy I25.5 Atrial fibrillation ([facility]) I48.91 AICD (automatic cardioverter/defibrillator) present Z95.810 Review [...] ., TH., AND SAT. 45 Tab 3 warfarin sodium (COUMADIN) 5 MG Tablet 10 mg F, 5mg all other days 110 Tab 3 clopidogrel (PLAVIX) 75 MG Tablet Take 1 Tab by mouth daily. 90 Tab 3 furosemide (LASIX) 20 MG Tablet Take 1 Tab by mouth daily. 90 Tab 3 rosuvastatin (CRESTOR) 5 MG Tablet Take 1 tablet every other day 45 Tab 3 ramipril (ALTACE) 2.5 MG Capsule Take 1 Cap by mouth daily. 90 Cap 3 levothyroxine (SYNTHROID) 75 MCG Tablet Take 50 mcg by mouth daily first thing in the morning. (at least 30 min prior to breakfast or other meds) VITAMIN D 2000 UNITS PO TABS one tablet daily nitroglycerin (NITROSTAT) 0.[address] 1 Tab under the tongue as needed for Pain, Chest. 25 Tab 11 OBJECTIVE/PHYSICAL EXAMINATION: BP 120/72 | Pulse 68 | Resp 16 | Wt 167 lbs 6.4 oz (75.932kg) | BMI 24.02 kg/m | BSA 1.94 m General: A&Ox3. NAD. HEENT: Normocephalic. Atraumatic. PER. Conjunctiva pink, sclera clear. No carotid bruits. No JVD. No HJR. Heart: RRR. No murmur. No rub. No gallop. PMI is nondisplaced. Lungs: Clear to auscultation. Abdomen: +BS. Soft. Nontender. No masses or organomegaly. Extremities: Mildedema. No clubbing. No cyanosis. Limited neurological examination is without focal deficits. Pulses: radial=2/4, posterior tibial=2/4. Data: Device interrogation on 03/03/2019 revealed normal ICD function. Medtronic Model - Eric II VR Q340SLP (SN: [id number]). RV Lead: [employer], Model - 6935 (SN: [id number]). Implant Date: 02-02-2013. Battery voltage: 2.97 V. PANCHO 2.63 V. Backup pacemaker set VVI, 40 bpm. RV paced 0.3%. Two episodes of NS-VT since January 2018. EKG today reveals atrial fibrillation with ventricular rate of 84 bpm. Right bundle branch block, left anterior fascicular block, bifascicular block. Old anterior septal infarct. Anterolateral T-waveabnormality, ischemia versus digitalis effect. QTc is 437 ms ASSESSMENT: 1. Stable atherosclerotic coronary disease 2. Severe ischemic cardiomyopathy with LVEF 15-20% in October 2016 3. Mild acute decompensated systolic congestive heart failure. 4. Status post single chamber ICD. 5. Chronic atrial fibrillation. 6. Chronic coumadin anticoagulation 7. Dyslipidemia. LDL 30 mg/dL on March 28, 2018 8. Cough suggestive of allergic rhinitis, postnasal drainage. RECOMMENDATIONS/PLAN: 1. Double furosemide x 2-3 days then resume prior dosing. 2. Reduce sodium intake. 3. Check a CBC, CMP, digoxin level, TSH, and LDL direct today. 4. Refer for resting echocardiogram, reassessment of LV systolic function, considering switching ramipril to Entresto 5. Device interrogation due next on 06/07/2019. 6. Routine cardiology follow-up in [address] Langston or as needed with the undersigned in theinterim 7. ER with emergencies. Wilmar Lay PA-C Department of Cardiology documented in this encounter Procedure Notes * Sheldon Orozco DO - 05/24/2019 12:59 PM EDT Associated Order(s): EKG REASON FOR STUDY: A-fib CONCLUSIONS: Atrial fibrillation Right bundle branch block Left anterior fascicular block Bifascicular block Anteroseptal infarct , age undetermined T wave abnormality, consider lateral ischemia Abnormal ECG When compared with ECG of 05-JUL-2015 11:55, Atrial fibrillation has replaced Electronic pacemaker detected Vent. rate has increased BY 44 BPM Ventricular Rate: 84 Atrial Rate: 241 QRS Duration: 156 QT/QTc: 370/437 ms P-R-T [place]: 0 : -46 : 153 degrees documented in this encounter Nursing Notes * Caterina Quigley RN - 05/24/2019 12:48 PM EDT Examination Room: 2 Name: Lucian Larson JrDylan Date of : (1935). Reason for Visit: 6 month return Interim Hospitalization(s): Denied Problems/Concerns: No problem voiced Chest Pain/SOB: Denied [facility] is a way you can talk to your provider online through e-mail. Would you like to sign up? I can activate it for you? Declined documented in this encounter Miscellaneous Notes * Result Yina Lucero RN - 05/25/2019 3:40 PM EDT Letter sent. Copy faxed to PCP. 05/25/2019 * Result Wilmar Handy PA-C - 05/25/2019 12:08 PM EDT OK Please send lab results to PCP, Dr. Hank Oshea MD documented in this encounter Plan of Treatment Upcoming Encounters Date Type Specialty Care Team Description 06/07/2019 Cardiac Studies Cardiology [facility] [address] [place] [address] [phone] 06/13/2019 Pharmacy Pharmacy [place], [facility] [address] [facility] [place] [address] 07/10/2019 Cardiac Studies Cardiac Studies [facility], Drain Cleaner 1 [address] [address] [phone] 09/13/2019 Cardiac Studies Cardiology [facility], [facility] [address] [place] [address] [phone] 12/18/2019 Cardiac Studies Cardiology [facility] [address] [address] [phone] 01/05/2020 Office Visit Cardiology Denis Langston MD [address] [place] [address] [phone] 03/22/2020 Cardiac Studies Cardiology [facility] [address] [place] [address] [phone] Scheduled Orders Name Type Priority Associated Diagnoses Orde r Schedule ECHO, COMPLETE (2D), TRANS-THORACIC Echocardiology Routine Heart failure, systolic, due to CAD (HCC) Ischemic cardiomyopathy Expected: 05/31/2019, Expires: 11/24/2019 Health Maintenance Due Date Last Done Comments PNEUMOCOCCAL ADULT 65 YRS AND OVER (1 of 2 - PCV13) 1999 *DEPRESSION SCREENING, ANNUAL FOR PTS 18 AND OVER 12/02/2014 *BASIC METABOLIC PANEL (BMP) FOR HTN YEARLY 01/13/2019 *DIG LEVEL FOR MEDICATION MONITORING EVERY 6 MONTHS 03/28/2019 Influenza Vaccine (FLU shot) (#1) 2019 07/29/2017, [...] Procedure Name Priority Date/Time Associated Diagnosis Comments COMPR METAB PANEL Routine 05/24/2019 1:3 2 PM EDT Ischemic cardiomyopathy Dyslipidemia, goal LDL below 70 CBC Routine 05/24/2019 1:32 PM EDT Chronic atrial fibrillation (HCC) Anticoagulated on Coumadin TSH Routine 05/24/2019 1:32 PM EDT Acquired hypothyroidism LDL (DIRECT MEASURE) Routine 05/24/2019 1:32 PM EDT Dyslipidemia, goal LDL below 70 DIGOXIN-LEVEL Routine 05/24/2019 1:32 PM EDT Heart failure, systolic, due to CAD (HCC) Ischemic cardiomyopathy EKG Routine 05/24/2019 12:59 PM EDT Coronary artery disease involving telida coronary artery of telida heart without angina pectoris Chronic atrial fibrillation (HCC) documented in this encounter Results * LDL (DIRECT MEASURE) (05/24/2019 1:32 PM EDT) LDL (DIRECT MEASURE) 72 Comment: LDL CHOLESTEROL REFERENCE RANGES(mg/dL) <100 OPTIMAL GOAL FOR HIGH RISK PATIENTS 100-129NEAR OR ABOVE NORMAL 130-159BORDERLI NE HIGH 160-189HIGH >189 VERY HIGH 0 - 129 mg/dL [facility] Specimen Performing Organization Address City/State/Zipcod e Phone Number [facility], [address] [facility] [address] [place] [address] * TSH (05/24/2019 1:32 PM EDT) TSH 2.62 0.27 - 4.2 uIU/mL [facility] Specimen Performing Organization Address City/[facility] e Phone Number [facility], [address] [place] [address] * DIGOXIN-LEVEL (05/24/2019 1:32 PM EDT) DIGOXIN 0.4(L) 0.5 - 2.0 ng/mL [facility] NTER Specimen Performing Organization Address [facility] e Phone Number [facility], [address] [place] [address] * COMPR METAB PANEL (05/24/2019 1:32 PM EDT) BUN 20 6 - 20 mg/dL [facility] CREATININE 1.2 Comment: GFR should be used to assess renal function.Plasm a/Serum creatinine may not be able to properly reflect renal function in some cases. 0.6 - 1.2 mg/dL [facility] E GLOM FILT RATE 58.1(L)Comment:If patient is , multiply estimated GFR by 1.159. >60 [facility] SODIUM 141 135 - 146 mmol/L [facility] POTASSIUM 5.0 3.5 - 5.1 mmol/L [facility] CHLORIDE 102 98 - 107 mmol/L [facility] CO2 27 22 - 32 mmol/L [facility] ANION GAP 12 7 - 15 mmol/L [facility] GLUCOSE 90 70 - 120 mg/dL [facility] ALBUMIN 4.2 3.8 - 5.0 g/dL [facility] AST 24 10 - 50 U/L [facility] ALKALINE PHOSPHATASE 103 0 - 153 U/L [facility] BILIRUBIN, TOTAL 0.7 0 - 1.2 mg/dL [facility] CALCIUM 9.6 8.4 - 10.2 mg/dL [facility] PROTEIN 7.2 6.0 - 8.3 g/dL [facility] ALT 21 10 - 50 U/L [facility] Specimen Performing Organization Address City/[facility] e Phone Number [facility], [address] [place] [address] * CBC (05/24/2019 1:32 PM EDT) WBC 6.65 4.00 - 10.80 K/uL [facility] RBC 4.36(L) 4.50 - 5.25 M/uL [facility] HGB 14.1 14.0 - 16.8 g/dL [facility] HCT 42.0 40.0 - 48.4 % [facility] MCV 96.3 82.0 - 99.5 fL [facility] MCH 32.3 27.0 - 34.0 pg [facility] MCHC 33.6 32.0 - 36.0 g/dL [facility] RDW 13.8 11.5 - 15.5 % [facility] PLATELET COUNT 182 140 - 400 K/uL [facility] MPV 10.3 6.6 - 11.1 fL [facility] Specimen Performing Organization Address [facility] e Phone Number [facility] Room, [address] [place] [address] * EKG (05/24/2019 12:59 PM EDT) Specimen Procedure Note Sheldon Orozco, - 05/24/2019 12:59 PM EDT REASON FOR STUDY: A-fib CONCLUSIONS: Atrial fibrillation Right bundle branch block Left anterior fascicular block Bifascicular block Anteroseptal infarct , age undetermined T wave abnormality, consider lateral ischemia Abnormal ECG When compared with ECG of 05-JUL-2015 11:55, Atrial fibrillation has replaced Electronic pacemaker detected Vent. rate has increased BY 44 BPM Ventricular Rate: 84 Atrial Rate: 241 QRS Duration: 156 QT/QTc: 370/437 ms P-R-T [place]: 0 : -46 : 153 degrees Performing Organization Address City/[facility] e Phone Number [facility] documented in this encounter Visit Diagnoses Diagnosis Ischemic cardiomyopathy- Primary Other specified forms of chronic ischemic heart disease Coronary artery disease involving telida coronary artery of telida heart without angina pectoris Chronic atrial fibrillation (HCC) Atrial fibrillation Heart failure, systolic, due to CAD (HCC) Unspecified systolic heart failure Myocardial infarction, unspecified CA type, unspecified artery (HCC) Acquired hypothyroidism Unspecified hypothyroidism Dyslipidemia, goal LDL below 70 Other and unspecified hyperlipidemia Anticoagulated on Coumadin Encounter for therapeutic drug monitoring documented in this encounter Advance Directives Documents on File Type Date 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
--- OUTSIDE RECORDS SUMMARY | 2023-09-08 00:54 | External Medical Summary ---
Author Name Unknown Address Unknown Organization R:IT USE ONLY!!! Laboratory Report Ordering Provider Test Date Status [facility] 06/13/2019 11:28:00 Final Observation Date Value Abnormality Reference Status INR BldC 06/13/2019 11:29 3.3 Fin al Ds INR range/Ds INR det Patient-Rto 06/13/2019 11:29 Final Therapeutic ranges for non-o perative patients: Prophylaxsis/treatment of DVT: (Range:2.0-3.0) Treatment of pulmonary embolism:(Range:2.0-3.0) Prevention of systemic embolism from: -tissue heart valves -acute myocardial infarction -valvular heart disease -atrial fibrillation (Range: 2.0-3.0) Mechanical prosthetic valves: (Range: 2.5-3.5) Performing Location IT USE ONLY!!!
--- OUTSIDE RECORDS SUMMARY | 2023-09-08 00:54 | External Medical Summary ---
Author Name Unknown Address [facility] [place] [address] Phone Organization K01:[facility] [address] [id number] Laboratory Report Ordering Provider Test Date Status ROXANA MAYA 05/24/2019 13:32:00 Final Observation Date Value Abnormality Reference Status TSH 05/25/2019 00:17 2.62 0.27-4.2 Fin al Performing Location [address] [address]
--- OUTSIDE RECORDS SUMMARY | 2023-09-08 00:54 | External Medical Summary ---
Author Name Unknown Address [address] [place] [address] Phone Organization K01:[facility] [address] [id number] Laboratory Report Ordering Provider Test Date Status ROXANA MAYA 05/24/2019 13:32:00 Final Observation Date Value Abnormality Reference Status LDL, (direct) 05/24/2019 23:50 72 0-129 Final LDL CHOLESTEROL REFERENCE RA NGES(mg/dL) <100 OPTIMAL GOAL FOR HIGH RISK PATIENTS 100-129 NEAR OR ABOVE NORMAL 130-159 BORDERLINE HIGH 160-189 HIGH >189 VERY HIGH Performing Location [facility] [address] [facility] [address]
--- OUTSIDE RECORDS SUMMARY | 2023-09-08 00:54 | External Medical Summary | Summary of Care ---
Author Name Unknown Organization [place] [address] Care Team Providers Care Market Analyst Name Role Phone Hank Oshea MD Primary Care Provider [phone] Reason for Visit * Reason Comments Dosage Adjustment In Person (Anticoag Cl inic) Encounter Details Date Type Department Care Team Description 05/02/2019 Pharmacy Pharmacy, [address] [place] [address] [place] [facility] [address] [place] [address] Atrial fibrillation, unspecified type (HCC)*; Myocardial infarction, unspecified MT type, unspecified artery (HCC); Anticoagulation management encounter; attache 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 therapy Allergies No Known Allergiesdocumented as of this encounter (statuses as of 05/02/2019) Medications Medication Sig Dispensed Refills Start Date End Date Status VITAMIN D 2000 UNITS PO TABS one tablet daily 0 Active nitroglycerin (NITROSTAT) 0.4 MG SUBLIndications:Rascon ry artery disease involving koy[place] coronary artery of [place] heart without angina pectoris,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 25 Tab 11 07/21/2016 Active levothyroxine (SYNTHROID) 75 MCG Tablet Take 50 mcg by mouth daily first thing in the morning. (at least 30 min prior to breakfast or other meds) 0 Active carvedilol (COREG) 12.5 MG TabletIndications:Salo nary artery disease involving [place] coronary artery of [place] heart without angina pectoris Take 1 Tab by mouth 2 times a day. with food 180 Tab 3 06/08/2018 Active digoxin (LANOXIN) 125 mcg Tablet TAKE ONE TABLET BY MOUTH ON TUES., THURS., AND SAT. 40 Tab 5 09/26/2018 Active ramipril (ALTACE) 2.5 MG Capsule Take [...] other days 110 Tab 3 03/03/2019 Active documented as of this encounter (statuses as of 05/02/2019) Active Problems Problem Noted Date AICD (automatic cardioverter/defibrillat or) present 02/10/2013 Heart failure, systolic, due to CAD 06/2013 Ischemic cardiomyopathy 01/06/2013 Atrial fibrillation 01/06/2013 CAD (coronary artery disease) 07/25/2012 MT (myocardial infarction) 07/25/2012 documented as of this encounter (statuses as of 05/02/2019) Immunizations Name Administration Dates Next Due DTaP [...] this encounter Progress Notes * Anibal Mcfarland RP - 05/02/2019 11:25 AM EDT Medication Therapy Disease Management - Anticoagulation Lucian Larson Jr. is an 83 year old male who presents to clinic for anticoagulation management and education. Current Anticoagulation Regimen: warfarin 10mg F, 5mg all other days (5mg tabs) Anticoagulation Medication Adherence: Patient compliant Patient-Reported Symptoms: Bruising: no Bleeding: no Miscellaneous: no Interval Health and/or Dietary Status Changes: he was more active recently. INR: 2.5 Target range: 2.0-3.0 Recommendations: Continue 10mg F, 5mg all other days (5mg tabs) Follow-up: Patient to repeat PT/INR in 6 week(s) to assess dosing of warfarin for anticoagulation management. Anibal Caceres RPh, CDE, CACP Clinical Pharmacist Medication Therapy Disease Management 05/02/2019, 11:25 AM documented in this encounter Plan of Treatment Upcoming Encounters Date Type Specialty Care Team Description 05/24/2019 Office Visit Cardiology Wilmar Lay PA-C [address] [place] [address] [phone] 06/07/2019 Cardiac Studies Cardiology [facility] [address] [address] [phone] 06/13/2019 Pharmacy Pharmacy [place], [facility] [address] [facility] [place] [address] 09/13/2019 Cardiac Studies Cardiology [facility] [address] [place] [address] [phone] 12/18/2019 Cardiac Studies Cardiology [facility] [address] [place] [address] [phone] 03/22/2020 Cardiac Studies Cardiology [place] [address] [place] [address] [phone] Health Maintenance Due Date Last Done Comments PNEUMOCOCCAL ADULT 65 YRS AND OVER (1 of 2 - PCV13) 1999 *DEPRESSION SCREENING, ANNUAL FOR PTS 18 AND OVER 12/02/2014 *BASIC METABOLIC PANEL (BMP) FOR HTN YEARLY 01/13/2019 *DIG LEVEL FOR MEDICATION MONITORING EVERY 6 MONTHS 03/28/2019 Influenza Vaccine (FLU shot) (#1) 2019 07/29/2017, 08/08/2012 DIABETES SCREEN EVERY 3 YRS-AGE 45 AND ABOVE 01/11/2021 01/11/2018, 09/21/2017, 11/25/2016, Additional history exists DTaP,Tdap,and Td Vaccines (2 - Tdap) 07/29/2027 07/29/2017 MENINGOCOCCAL (MENACTRA) Aged Out No longer eligible based on patient's age to complete this topic documented as of this encounter Implants Not on filedocumented as of this encounter Procedures Procedure Name Priority Date/Time Associated Diagnosis Comments INR FINGERSTICK STAT 05/02/2019 11:29 AM EDT Atrial fibrillation, unspecified type (HCC) Myocardial infarction, unspecified MT type, unspecified artery (HCC) Anticoagulation management encounter snf 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 therapy documented in this encounter Results * INR FINGERSTICK (05/02/2019 11:29 AM EDT) FINGERSTICK INR 2.5 INR [facility] THERAPEUTIC RANGE Comment: Therapeutic ranges for non-operative patients: Prophylaxsis/treatmen t of DVT: (Range:2.0-3.0) Treatment of pulmonary embolism:(Range:2.0-3 .0) Prevention of systemic embolism from: -tissue heart valves -acute myocardial infarction -valvular heart disease -atrial fibrillation (Range: 2.0-3.0) Mechanical prosthetic valves: (Range: 2.5-3.5) [facility] Specimen Performing Organization Address City/State/Zipcod e Phone Number [facility], [address] [place] [address] documented in this encounter Visit Diagnoses Diagnosis Atrial fibrillation, unspecified type (HCC)- Primary Myocardial infarction, unspecified MT type, unspecified artery (HCC) Anticoagulation management encounter Encounter for therapeutic drug monitoring attache 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 therapy documented in this encounter Advance Directives Documents on File Type Date Recorded Patient Pediatric Ophthalmologist Expl anation Advanced Directive Advanced Directive 01/26/2013 11:57 AM Advanced Directive Advanced Directive Advanced Directive Advanced Directive
--- OUTSIDE RECORDS SUMMARY | 2023-09-08 00:54 | External Medical Summary | Summary of Care ---
Author Name Unknown Organization [place] [address] Care Team Providers Care Billet Heater Operator Name Role Phone Hank Oshea MD Primary Care Provider [phone] Reason for Visit * Reason Comments Dosage Adjustment In Person (Anticoag Cl inic) Encounter Details Date Type Department Care Team Description 03/21/2019 Pharmacy Pharmacy, [facility] [address] [place] [address] [place] [facility] [address] [facility] [place] [address] Myocardial infarction, unspecified [place] type, unspecified artery (HCC)*; Atrial fibrillation, unspecified type (HCC); Anticoagulation management encounter; prison 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 therapy Allergies No Known Allergiesdocumented as of this encounter (statuses as of 03/21/2019) Medications Medication Sig Dispensed Refills Start Date End Date Status VITAMIN D 2000 UNITS PO TABS one tablet daily 0 Active nitroglycerin (NITROSTAT) 0.4 MG SUBLIndications:Rascon ry artery disease involving [place] coronary artery of [...] 12.5 MG TabletIndications:Salo nary artery disease involving [place] coronary artery of [place] heart without angina pectoris Take 1 Tab [...] as of this encounter (statuses as of 03/21/2019) Active Problems Problem Noted Date AICD (automatic cardioverter/defibrillat or) present 02/10/2013 Heart failure, systolic, due to CAD 06/2013 Ischemic cardiomyopathy 01/06/2013 Atrial fibrillation 01/06/2013 CAD (coronary artery disease) 07/25/2012 [place] (myocardial infarction) 07/25/2012 documented as of this encounter (statuses as of 03/21/2019) Immunizations Name Administration Dates Next Due DTaP [...] Progress Notes * Anibal Mcfarland RP - 03/21/2019 11:27 AM EDT Medication Therapy Disease Management [...] status or dietary changes noted today INR: 2.5 Target range: 2.0-3.0 Recommendations: Continue 10mg F, 5mg all other days (5mg tabs) Follow-up: Patient to repeat PT/INR in 6 week(s) to assess dosing of warfarin for anticoagulation management. Anibal Caceres RPh, CDE, CACP Clinical Pharmacist Medication Therapy Disease Management 03/21/2019, 11:27 AM documented in this encounter Plan of Treatment Upcoming Encounters Date Type Specialty Care Team Description 05/02/2019 [facility] [address] [facility] [address] 05/24/2019 Office Visit Cardiology Wilmar Lay PA-C [address] [place] [address] [phone] 06/07/2019 Cardiac Studies Cardiology , [facility] [address] [place] [address] [phone] 09/13/2019 Cardiac Studies Cardiology Huang, [facility] [address] [place] [address] [phone] 12/18/2019 Cardiac Studies Cardiology [place], [facility] [address] [place] [address] [phone] 03/22/2020 Cardiac Studies Cardiology [place], [facility] [address] [place] [address] [phone] Health Maintenance Due Date Last Done Comments PNEUMOCOCCAL ADULT 65 YRS AND OVER (1 of 2 - PCV13) 1999 *DEPRESSION SCREENING, ANNUAL FOR PTS 18 AND OVER 12/02/2014 *BASIC METABOLIC PANEL (BMP) FOR HTN YEARLY 01/13/2019 Influenza Vaccine (FLU shot) (Season Ended) 2019 07/29/2017, 08/08/2012 DIABETES SCREEN EVERY 3 [...] Date/Time Associated Diagnosis Comments INR FINGERSTICK STAT 03/21/2019 11:31 AM EDT Atrial fibrillation, unspecified type (HCC) Myocardial infarction, unspecified [place] type, unspecified artery (HCC) Anticoagulation management encounter 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 therapy documented in this encounter Results * INR FINGERSTICK (03/21/2019 11:31 AM EDT) FINGERSTICK INR 2.5 INR [facility] THERAPEUTIC RANGE Comment: Therapeutic ranges for non-operative patients: Prophylaxsis/treatmen t of DVT: (Range:2.0-3.0) Treatment of pulmonary embolism:(Range:2.0-3 .0) Prevention of systemic embolism from: -tissue heart valves -acute myocardial infarction -valvular heart disease -atrial fibrillation (Range: 2.0-3.0) Mechanical prosthetic valves: (Range: 2.5-3.5) [facility] Specimen Performing Organization Address City/State/Zipcod e Phone Number [facility], [address] [place] [address] documented in this encounter Visit Diagnoses Diagnosis Myocardial infarction, unspecified [place] type, unspecified artery (HCC)- Primary Atrial fibrillation, unspecified type (HCC) Anticoagulation management encounter Encounter for therapeutic drug monitoring 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 therapy documented in this encounter Advance Directives Documents on File Type Date Recorded Patient Music Engineer Expl anation Advanced Directive Advanced Directive 01/26/2013 11:57 AM Advanced Directive Advanced Directive Advanced Directive Advanced Directive
--- OUTSIDE RECORDS SUMMARY | 2023-09-08 00:54 | External Medical Summary | Summary of Care ---
Author Name Unknown Organization [place] [address] Care Team Providers Care Veterinary Physiologist Name Role Phone Hank Oshea MD Primary Care Provider [phone] Reason for Visit * Reason Comments Defibrillator Clinic Encounter Details Date Type Department Care Team Description 06/07/2019 Cardiac Studies Card[facility], [facility] [place] [address] [place] [address] [phone] Chronic atrial fibrillation (HCC)*; Ischemic cardiomyopathy; Coronary artery disease involving [place]osh[place]pai[place] coronary artery of shosh[place]paiute heart without angina pectoris; Permanent atrial fibrillation (HCC); AICD (automatic cardioverter/defibril lator) present Allergies No Known Allergiesdocumented as of this encounter (statuses as of 06/09/2019) Medications Medication Sig Dispensed Refills Start Date [...] 12.5 MG TabletIndications:Salo nary artery disease involving [place] coronary artery of shosh[place]paiute heart without angina pectoris,Chronic atrial fibrillation (HCC) Take 1 Tab by mouth 2 times a day. with food 180 Tab 3 05/24/2019 Active digoxin (LANOXIN) 125 mcg TabletIndications:Salo nary artery disease involving [place]ai[place] coronary artery of shoshone[place]paiute heart without angina pectoris,Chronic atrial fibrillation (HCC) TAKE ONE TABLET BY MOUTH ON ES., THURS., AND SAT. 45 Tab 3 05/24/2019 Active documented as of this encounter (statuses as of 06/09/2019) Active Problems Problem Noted Date AICD (automatic cardioverter/defibrillat or) present 02/10/2013 Heart failure, systolic, due to CAD 06/2013 Ischemic cardiomyopathy 01/06/2013 Atrial fibrillation 01/06/2013 CAD (coronary artery disease) 07/25/2012 [place] (myocardial infarction) 07/25/2012 documented as of this encounter (statuses as of 06/09/2019) Immunizations Name Administration Dates Next Due DTaP [...] Progress Notes * Addi Vaughn TECH - 06/07/2019 10:12 AM EDT REMOTE MONITORING TRANSMISSION - DEFIBRILLATOR -- 06/07/2019 TYPE OF VISIT: This is a scheduled remote monitoring transmission. INDICATION: Chronic atrial fibrillation (HCC) [I48.2] - Primary Ischemic cardiomyopathy [I25.5] Coronary artery disease involving shosh[place]pai[place] coronary artery of shosh[place]paiute heart without angina pectoris [I25.10] Permanent atrial fibrillation (HCC) [I48.2] AICD (automatic cardioverter/defibrillator) present [Z95.810] IMPLANTING PHYSICIAN: Dr. Gonzalez IMPLANT/DEVICE HISTORY: February 02, 2013 CURRENT SYSTEM: ICD: Medtronic, model - Eric II VR [id number] SN: [id number] RV Lead: Medtronic, Model - [id number] SN: [id number]: 02-02-2013 Abandoned leads: none ALERTS/ADVISORIES:none PATIENT EVALUATION: Presenting rhythm : Normal sinus rhythm with intact AV node function. DEVICE EVALUATION: R V Pacing threshold: 0.5 volts at 0.4 msec Sensin.0 mV Pacing impedance: 439 ohms Percentage paced: 0.3 % Battery: 2.98 volts PANCHO: 2.63 volts Charge time: 9.8 seconds HVLI: 87 ohms Short V-V intervals: 0 PVC singles: 474.9 / hour in a 96 day period (this is a decrease ) Mode switch episodes:0 Monitored episodes: 3 VT nonsustained episodes of which the longest is 1 seconds with a ventricularrate of 214 bpm VT/VF episodes (since last evaluation): 0 [...] 25J, 35J x 5) Mode switch: OFF IMPRESSION: Normal defibrillator function. Normal pacemaker function Stable pacing and sensing thresholds Adequate battery reserve PLAN: The next remote monitoring transmission is scheduled for 3 months. Nurse: Addi Vaughn [facility] RIP MACHINE OPERATOR: Dr. Langston This patient was interrogated [...] Encounters Date Type Specialty Care Team Description 06/13/2019 Pharmacy [facility]acy [place] [address] [facility] [address] 07/10/2019 Cardiac Studies Cardiac Studies , [employer] [address] [place] [address] [phone] 09/13/2019 Cardiac Studies Cardiology Gw, [facility] [address] [place] [address] 12/18/2019 Cardiac Studies Cardiology Gw, [facility] [address] [place] [address] 01/05/2020 Office Visit Cardiology Denis Langston MD [address] [place] [address] 03/22/2020 Cardiac Studies Cardiology [place], [facility] [address] [place] [address] [phone] Scheduled Orders Name Type Priority Associated Diagnoses Orde r Schedule PACER/ICD REMOTE DATA CAPTURE/TECH REVIEW,90D Procedures Routine Chronic atrial fibrillation (HCC) Ischemic cardiomyopathy Coronary artery disease involving shosh[place] coronary artery of shoshone[place]paiute heart without angina pectoris Permanent atrial fibrillation (HCC) AICD (automatic cardioverter/defibrillato r) present Ordered: 06/07/2019 Health Maintenance Due Date Last Done Comments [...] Comments DEFIBRILLATOR REMOTE INTERROGATION EVAL/INTERP,TO 90D Routine 06/07/2019 Chronic atrial fibrillation (HCC) Ischemic cardiomyopathy Coronary artery disease involving sh[place] coronary artery of shosh[place]paiute heart without angina pectoris Permanent atrial fibrillation (HCC) AICD (automatic cardioverter/defibrill ator) present documented in this encounter Results * DEFIBRILLATOR REMOTE INTERROGATION EVAL/INTERP,TO 90D (06/07/2019) Specimen Narrative Performed At documented in this encounter Visit Diagnoses Diagnosis Chronic atrial fibrillation (HCC)- Primary Atrial fibrillation Ischemic cardiomyopathy Other specified forms of chronic ischemic heart disease Coronary artery disease involving shosh[place]paiute coronary artery of shoshone[place]paiute heart without angina pectoris Permanent atrial fibrillation (HCC) Atrial fibrillation AICD (automatic cardioverter/defibrillator) present Automatic implantable cardiac defibrillator in situ documented in this encounter Advance Directives Documents on File Type Date Recorded Patient Armature Winder Repair Helper Expl anation Advanced Directive Advanced Directive 01/26/2013 11:57 AM Advanced Directive Advanced Directive Advanced Directive Advanced Directive
--- OUTSIDE RECORDS SUMMARY | 2023-09-08 00:54 | External Medical Summary ---
Author Name Unknown Address [facility] [address] [place] [address] Phone Organization K01:[facility] [address] [facility] [place] [address] Laboratory Report Ordering Provider Test Date Status ROXANA MAYA 05/24/2019 13:32:00 Final Observation Date Value Abnormality Reference Status Digoxin 05/24/2019 23:50 0.4 Below low normal 0.5-2. 0 Final Performing Location [facility] [address] [facility] [place] [address]
--- OUTSIDE RECORDS SUMMARY | 2023-09-08 00:54 | External Medical Summary ---
Author Name Unknown Address [address] [facility] [place] [address] Phone Organization K0G:[facility] [address] [facility] [place] [address] Laboratory Report Ordering Provider Test Date Status ROXANA MAYA 05/24/2019 13:32:00 Final Observation Date Value Abnormality Reference Status WBC, Total 05/24/2019 13:51 6.65 4.00-10.80 F inal RBC 05/24/2019 13:51 4.36 Below low normal 4.50-5 .25 Final Hemoglobin 05/24/2019 13:51 14.1 14.0-16.8 Fi nal HCT 05/24/2019 13:51 42.0 40.0-48.4 Fin al MCV 05/24/2019 13:51 96.3 82.0-99.5 Fin al MCH 05/24/2019 13:51 32.3 27.0-34.0 Fin al MCHC 05/24/2019 13:51 33.6 32.0-36.0 Fin al RDW 05/24/2019 13:51 13.8 11.5-15.5 Fin al Platelets 05/24/2019 13:51 182 140-400 Fin al MPV 05/24/2019 13:51 10.3 6.6-11.1 Fin al Performing Location [facility] [address] [facility] [place] [address]
--- OUTSIDE RECORDS SUMMARY | 2023-09-08 00:54 | External Medical Summary ---
Author Name Unknown Address [address] [place] [address] Phone Organization K01:[facility] [address] [facility] [address] Laboratory Report Ordering Provider Test Date Status ROXANA MAYA 05/24/2019 13:32:00 Final Observation Date Value Abnormality Reference Status BUN 05/24/2019 23:50 20 6-20 Fin al Creatinine 05/24/2019 23:50 1.2 0.6-1.2 Fi nal GFR should be used to assess renal function. Plasma/Serum creatinine may not be able to properly reflect renal function in some cases. E Glom Filt Rate 05/24/2019 23:50 58.1 Below low normal >60 Final If patient is [place] an, multiply estimated GFR by 1.159. Sodium 05/24/2019 23:50 141 135-146 Fin al Potassium 05/24/2019 23:50 5.0 3.5-5.1 Fin al Cl 05/24/2019 23:50 102 98-107 Fin al CO2 05/24/2019 23:50 27 22-32 Fin al Anion gap 05/24/2019 23:50 12 7-15 Fin al Glucose 05/24/2019 23:50 90 70-120 Fin al Albumin 05/24/2019 23:50 4.2 3.8-5.0 Fin al AST (Aspartate aminotransferase) 05/24/2019 23:50 24 10-50 Final Alk Phos 05/24/2019 23:50 103 0-153 Fin al Bilirubin, Total 05/24/2019 23:50 0.7 0-1.2 Final Calcium 05/24/2019 23:50 9.6 8.4-10.2 Fin al Protein 05/24/2019 23:50 7.2 6.0-8.3 Fin al ALT (Alanine aminotransferase) 05/24/2019 23:50 21 10-50 Final Performing Location [facility] [address] [facility] [place] [address]
--- OUTSIDE RECORDS SUMMARY | 2023-09-08 00:55 | External Medical Summary ---
Author Name Unknown Address Unknown Organization R:IT USE ONLY!!! Laboratory Report Ordering Provider Test Date Status [facility] 12/06/2018 11:33:00 Final Observation Date Value Abnormality Reference Status INR BldC 12/06/2018 11:34 2.5 Fin al Ds INR range/Ds INR det Patient-Rto 12/06/2018 11:34 Final Therapeutic ranges for non-o perative patients: Prophylaxsis/treatment of DVT: (Range:2.0-3.0) Treatment of pulmonary embolism:(Range:2.0-3.0) Prevention of systemic embolism from: -tissue heart valves -acute myocardial infarction -valvular heart disease -atrial fibrillation (Range: 2.0-3.0) Mechanical prosthetic valves: (Range: 2.5-3.5) Performing Location IT USE ONLY!!!
--- OUTSIDE RECORDS SUMMARY | 2023-09-08 00:55 | External Medical Summary | Summary of Care ---
Author Name Unknown Organization [facility] [address] Care Team Providers Care Compact Assembler Name Role Phone Hank Oshea MD Primary Care Provider Reason for Visit * Reason Comments eRx-Medication Refill Encounter Details Date Type Department Care Team Description 09/26/2018 Refill Cardiology, [facility] [address] [facility] [place] [address] Wesly Mancia MD [address] [place] [address] [phone] Allergies No Known Allergiesas of this encounter Medications Medication Sig Dispensed Refills Start Date End Date Status VITAMIN D 2000 UNITS PO TABS one tablet daily 0 Active nitroglycerin (NITROSTAT) 0.4 MG SUBLIndications:Co ronary artery disease involving ven[place] ir[place] coronary artery of [place] heart without angina pectoris,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 25 Tab 11 07/21/2016 Active ramipril (ALTACE) 2.5 MG Capsule Take 1 Cap by mouth daily. 90 Cap 3 09/13/2017 Active furosemide (LASIX) 20 MG Tablet Take 1 Tab by mouth daily. 90 Tab 3 09/13/2017 Active levothyroxine (SYNTHROID) 75 MCG Tablet Take 50 mcg by mouth daily first thing in the morning. (at least 30 min prior to breakfast or other meds) 0 Active clopidogrel (PLAVIX) 75 MG TabletIndications: Permanent atrial fibrillation (HCC) Take 1 Tab by mouth daily. 90 Tab 3 02/14/2018 Active warfarin sodium (COUMADIN) 5 MG TabletIndications: Atrial fibrillation (HCC) 10 mg F, 5mg all other days 110 Tab 3 03/21/2018 Active rosuvastatin (CRESTOR) 5 MG TabletIndications: Heart failure, systolic, due to CAD (HCC),Ischemic cardiomyopathy,AIC D (automatic cardioverter/defib rillator) present,CAD (coronary artery disease) Take 1 tablet every other day 45 Tab 3 05/02/2018 Active carvedilol (COREG) 12.5 MG TabletIndications: Coronary artery disease involving ven[place] ir[place] coronary artery of ven[place] ir[place] heart without angina pectoris Take 1 Tab by mouth 2 times a day. with food 180 Tab 3 06/08/2018 Active digoxin (LANOXIN) 125 mcg Tablet TAKE ONE TABLET BY MOUTH ON ., ., AND SAT. 40 Tab 5 09/26/2018 Active digoxin (LANOXIN) 125 mcg Tablet 1 tablet on Wednesday, , Wednesday 40 Tab 5 09/13/2017 09/26/2018 Discontinued as of this encounter Active Problems Problem Noted Date AICD (automatic cardioverter/defibrillat or) present 02/10/2013 Heart failure, systolic, due to CAD 06/2013 Ischemic cardiomyopathy 01/06/2013 Atrial fibrillation 01/06/2013 CAD (coronary artery disease) 07/25/2012 [place] (myocardial infarction) 07/25/2012 as of this encounter Immunizations Name Dates Previously Given Next Due DTaP - Dipth/Tet/Acell Pertussis 07/29/2017 Seasonal Influenza, Trivalen t, with Preserve, 3yr & Above, Split 07/29/2017,08/08/2012 as of this encounter Social History Tobacco [...] End No recent travel history rafael ilable. as of this encounter Miscellaneous Notes * Telephone Encounter - Adrian Kuhn DO - 09/26/2018 11:18 AM EST Signed Prescriptions: Disp Refills digoxin (LANOXIN) 125 mcg Tablet 40 Tab 5 Sig: TAKE ONE TABLET BY MOUTH ON TUES., THURS., AND SAT.Authorizing Provider: WESLY MANCIA * Telephone Encounter - Yina Elizondo RN - 09/26/2018 11:06 AM EST Pending Prescriptions: Disp Refills digoxin (LANOXIN) 125 mcg Tablet [Pharmac*40 Tab 5 Sig: TAKE ONE TABLET BY MOUTH ON TUES., THURS., AND SAT. * Telephone Encounter - Kalyani Pool LPN - 09/26/2018 11:05 AM EST Pending Prescriptions: Disp Refills digoxin (LANOXIN) 125 mcg Tablet [Pharmac*40 Tab 5 Sig: TAKE ONE TABLET BY MOUTH ON TUES., THURS., AND SAT. * Telephone Encounter - Kalyani Pool LPN - 09/26/2018 11:05 AM EST Pending Prescriptions: Disp Refills digoxin (LANOXIN) 125 mcg Tablet [Pharmac*40 Tab 5 Sig: TAKE ONE TABLET BY MOUTH ON TUES., THURS., AND SAT. Last Office Visit: 03/21/2018 Next Office Visit: 11/24/2018 Scheduled Provider(s): Wesly Mancia MD Last date the medication was ordered: 09/13/17 Patient Active Problem List Diagnosis Code CAD (coronary artery disease) I25.10 [place] (myocardial infarction) ([facility]) I21.9 Heart failure, systolic, due to CAD ([facility]) I50.20, I25.10 Ischemic cardiomyopathy I25.5 Atrial fibrillation ([facility]) I48.91 AICD (automatic cardioverter/defibrillator) present Z95.810 Labs: CREATININE(mg/dL) Boris Dt/Tm Resulted Value Status 01/11/18 11:41A 01/11/18 1.3* FINAL POTASSIUM(mmol/L) Boris Dt/Tm Resulted Value Status 01/11/18 11:41A 01/11/18 4.5 FINAL TSH(uIU/mL) Boris Dt/Tm Resulted Value Status 07/20/18 11:03A 07/20/18 3.25 FINAL LDL (CALCULATED)(mg/dL) Boris Dt/Tm Resulted Value Status 01/11/18 11:41A 01/11/18 68 FINAL 06/30/16 10:59A 06/30/16 60 FINAL ALT(U/L) Boris Dt/Tm Resulted Value Status 01/11/18 11:41A 01/11/18 <5* FINAL Hemoglobin AIC Results: HEMOGLOBIN, A1C(%) Boris Dt/Tm Resulted Value Status 06/30/16 10:59A 06/30/16 5.4 FINAL in this encounter Plan of Treatment Upcoming Encounters Date Type Specialty Care Team Description 10/11/2018 Pharmacy Pharmacy [facility] [address] [facility] [place] [address] 11/24/2018 Office Visit Cardiology Wesly Mancia MD [address] [facility] [place] [address] Health Maintenance Due Date Last Done Comments PNEUMOCOCCAL ADULT 65 YRS AN D OVER (1 of 2 - PCV13) 1999 *DEPRESSION SCREENING, KRYSTYNA Yoder FOR PTS 18 AND OVER 12/02/2014 *DIG LEVEL FOR MEDICATION MONITORING EVERY 6 MONTHS 03/15/2018 Influenza Vaccine (FLU shot) (#1) 2018 017, 08/08/2012 DIABETES SCREEN EVERY 3 YRS- AGE 45 AND ABOVE 01/11/2021 01/11/2018, 09/21/2017, 11/25/2016, Additional history exists DTaP,Tdap,and Td Vaccines (2 - Tdap) 07/29/2027 07/29/2017 as of this encounter Implants Not on fileas of this encounter Advance Directives Patient has advance care planning documents on file. For more information, please contact: [place] [address]
--- OUTSIDE RECORDS SUMMARY | 2023-09-08 00:55 | External Medical Summary | Summary of Care ---
Author Name Unknown Organization [place] [address] Care Team Providers Care Sfdc Technical Architect Name Role Phone Hank Oshea MD Primary Care Provider [phone] Reason for Visit * Reason Comments Dosage Adjustment In Person (Anticoag Cl inic) Encounter Details Date Type Department Care Team Description 11/08/2018 Pharmacy Pharmacy, [facility] [address] [facility] [place] [address] [facility] [address] [place] [address] Paroxysmal atrial fibrillation (HCC)*; ST elevation myocardial infarction (STEMI), unspecified artery (HCC); Anticoagulation management encounter; manager terminal 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 therapy Allergies No Known Allergiesas of this encounter Medications Medication Sig Dispensed Refills Start Date End Date Status VITAMIN D 2000 UNITS PO TABS one tablet daily 0 Active nitroglycerin (NITROSTAT) 0.4 MG SUBLIndications:Rascon ry artery disease involving [place] coronary artery of [place] heart without angina pectoris,Myocardial infarction involving other [...] meds) 0 Active clopidogrel (PLAVIX) 75 MG TabletIndications:Perm anent atrial fibrillation (HCC) Take 1 Tab by mouth daily. 90 Tab 3 02/14/2018 Active warfarin sodium (COUMADIN) 5 MG TabletIndications:Atri al fibrillation (HCC) 10 mg F, 5mg all other days 110 Tab 3 03/21/2018 Active rosuvastatin (CRESTOR) 5 MG TabletIndications:Hear t failure, systolic, due to CAD (HCC),Ischemic cardiomyopathy,AICD (automatic cardioverter/defibrill ator) present,CAD (coronary artery disease) Take 1 tablet every other day 45 Tab 3 05/02/2018 Active carvedilol (COREG) 12.5 MG TabletIndications:Salo nary artery disease involving [place] coronary artery of sob[place] heart without angina pectoris Take 1 Tab by mouth 2 times a day. with food 180 Tab 3 06/08/2018 Active digoxin (LANOXIN) 125 mcg Tablet TAKE ONE TABLET BY MOUTH ON ., TH., AND SAT. 40 Tab 5 09/26/2018 Active ramipril (ALTACE) 2.5 MG Capsule Take 1 Cap by mouth daily. 90 Cap 3 11/03/2018 Active as of this encounter Active Problems Problem Noted Date AICD (automatic cardioverter/defibrillat or) present 02/10/2013 Heart failure, systolic, due to CAD 06/2013 Ischemic cardiomyopathy 01/06/2013 Atrial fibrillation 01/06/2013 CAD (coronary artery disease) 07/25/2012 [place] (myocardial infarction) 07/25/2012 as of this encounter [...] history rafael ilable. as of this encounter Progress Notes * Anibal Mcfarland RP - 11/08/2018 11:20 AM EST Medication Therapy Disease Management - Anticoagulation Lucian Rodolfo Larson Jr. is an 82 year old male who presents to clinic for anticoagulation management and education. Current Anticoagulation Regimen: warfarin 10mg F, 5mg all other days (5mg tabs) Anticoagulation Medication Adherence: Patient compliant Patient-Reported Symptoms: Bruising: no Bleeding: no Miscellaneous: no Interval Health and/or Dietary Status Changes: Dietary vitamin K intake decreased since last follow-up INR: 3.6 Target range: 2.0-3.0 Recommendations: Skip today's dose then resume the current dose of warfarin 10mg F, 5mg all other days (5mg tabs) Follow-up: Patient to repeat PT/INR in 4 week(s) to assess dosing of warfarin for anticoagulation management. Anibal Caceres, RPh, CDE, CACP Clinical Pharmacist Medication Therapy Disease Management 11/08/2018, 11:20 AM in this encounter Plan of Treatment Upcoming Encounters Date Type Specialty Care Team Description 11/24/2018 Office Visit Cardiology Denis Langston MD [address] [facility] [place] [id number] 12/06/2018 Pharmacy Pharmacy [facility] [address] [facility] [id number] Health Maintenance Due Date Last Done Comments PNEUMOCOCCAL ADULT 65 YRS AN D OVER (1 of 2 - PCV13) 1999 *DEPRESSION SCREENING, KRYSTYNA Yoder FOR PTS 18 AND OVER 12/02/2014 Influenza Vaccine (FLU shot) (#1) 2018 017, 08/08/2012 DIABETES SCREEN EVERY 3 YRS- AGE 45 AND ABOVE 01/11/2021 01/11/2018, 09/21/2017, 11/25/2016, Additional history exists DTaP,Tdap,and Td Vaccines (2 - Tdap) 07/29/2027 07/29/2017 as of this encounter Implants Not on fileas of this encounter Procedures Procedure Name Priority Date/Time Associated Diagnosis Comments INR FINGERSTICK STAT 11/08/2018 11:23 AM EST Paroxysmal atrial fibrillation (HCC) ST elevation myocardial infarction (STEMI), unspecified artery (HCC) Anticoagulation management encounter manager terminal 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 therapy in this encounter Results * INR FINGERSTICK (11/08/2018 11:23 AM EST) FINGERSTICK INR 3.6 INR [facility] THERAPEUTIC RANGE Comment: Therapeutic ranges for non-operative patients: Prophylaxsis/treatment of DVT: (Range:2.0-3.0) Treatment of pulmonary embolism:(Range:2.0-3.0) Prevention of systemic embolism from: -tissue heart valves -acute myocardial infarction -valvular heart disease -atrial fibrillation (Range: 2.0-3.0) Mechanical prosthetic valves: (Range: 2.5-3.5) [facility] Performing Organization Address City/State/[facility] Phone Number [facility], [address] [facility] [place] [address] in this encounter Visit Diagnoses Diagnosis Paroxysmal atrial fibrillation (HCC)- Primary Atrial fibrillation ST elevation myocardial infarction (STEMI), unspecified artery (HCC) Anticoagulation management encounter Encounter for therapeutic drug monitoring manager terminal 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 therapy in this encounter Advance Directives Patient has advance care planning documents on file. For more information, please contact: [facility] [place] [id number]
--- OUTSIDE RECORDS SUMMARY | 2023-09-08 00:55 | External Medical Summary | Summary of Care ---
Author Name Unknown Organization [place] [address] Care Team Providers Care Director Of Procurement Name Role Phone Hank Oshea MD Primary Care Provider [phone] Reason for Visit * Reason Comments Dosage Adjustment In Person (Anticoag Cl inic) Encounter Details Date Type Department Care Team Description 03/21/2019 Pharmacy Pharmacy, [facility] [address] [facility] [place] [address] [facility] [address] [facility] [address] Myocardial infarction, unspecified [place] type, unspecified artery (HCC)*; Atrial fibrillation, unspecified type (HCC); Anticoagulation management encounter; senior care 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 therapy Allergies No Known Allergiesdocumented as of this encounter (statuses as of 03/21/2019) Medications Medication Sig Dispensed Refills Start Date End Date Status VITAMIN D 2000 UNITS PO TABS one tablet daily 0 Active nitroglycerin (NITROSTAT) 0.4 MG SUBLIndications:Rascon ry artery disease involving [place] coronary artery of [place] heart without angina pectoris,Myocardial infarction involving other [...] 12.5 MG TabletIndications:Salo nary artery disease involving [place] coronary artery of [place] heart without angina pectoris Take 1 Tab [...] Specialty Care Team Description 05/02/2019 Pharmacy [facility] [address] [facility] [address] 05/24/2019 Office Visit Cardiology Wilmar Lay PA-C [address] [place] [address] [phone] 06/07/2019 Cardiac Studies Cardiology , [facility] [address] [place] [address] [phone] 09/13/2019 Cardiac Studies Cardiology Huang, [facility] [address] [place] [address] [phone] 12/18/2019 Cardiac Studies Cardiology Huang, [facility] [address] [place] [address] [phone] 03/22/2020 Cardiac Studies Cardiology Gigi, [facility] [address] [place] [address] [phone] Health Maintenance Due Date Last Done Comments [...] type, unspecified artery (HCC) Anticoagulation management encounter rat exterminator 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 therapy documented in this encounter Results * INR FINGERSTICK (03/21/2019 11:31 AM EDT) FINGERSTICK INR 2.5 INR [facility] THERAPEUTIC RANGE Comment: Therapeutic ranges for non-operative patients: Prophylaxsis/treatmen t of DVT: (Range:2.0-3.0) Treatment of pulmonary embolism:(Range:2.0-3 .0) Prevention of systemic embolism from: -tissue heart valves -acute myocardial infarction -valvular heart disease -atrial fibrillation (Range: 2.0-3.0) Mechanical prosthetic valves: (Range: 2.5-3.5) [facility] Specimen Performing Organization Address City/State/Zipcod e Phone Number [facility], [address] [place] [address] documented in this encounter Visit Diagnoses Diagnosis Myocardial infarction, unspecified [place] type, unspecified artery (HCC)- Primary Atrial fibrillation, unspecified type (HCC) Anticoagulation management encounter Encounter for therapeutic drug monitoring rat exterminator 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 therapy documented in this encounter Advance Directives Documents on File Type Date Recorded Patient Bobbin Collector Expl anation Advanced Directive Advanced Directive 01/26/2013 11:57 AM Advanced Directive Advanced Directive Advanced Directive Advanced Directive
--- OUTSIDE RECORDS SUMMARY | 2023-09-08 00:55 | External Medical Summary | Summary of Care ---
Author Name Unknown Organization [place] [address] Care Team Providers Care Aviation Mechanic Name Role Phone Hank Oshea MD Primary Care Provider [phone] Reason for Visit * Reason Comments Dosage Adjustment In Person (Anticoag Cl inic) Encounter Details Date Type Department Care Team Description 10/11/2018 Pharmacy Pharmacy, [facility] [address] [facility] [place] [address] [place] [facility] [address] [place] [address] Paroxysmal atrial fibrillation (HCC)*; ST elevation myocardial infarction (STEMI), unspecified artery (HCC); Anticoagulation management encounter; USP 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 therapy Allergies No Known Allergiesas of this encounter Medications Medication Sig Dispensed Refills Start Date End Date Status VITAMIN D 2000 UNITS PO TABS one tablet daily 0 Active nitroglycerin (NITROSTAT) 0.4 MG SUBLIndications:Rascon ry artery disease involving [place] coronary artery [...] 12.5 MG TabletIndications:Salo nary artery disease involving [place] coronary artery of [place] heart without angina pectoris Take 1 Tab by mouth 2 times a day. with food 180 Tab 3 06/08/2018 Active digoxin (LANOXIN) 125 mcg Tablet TAKE ONE TABLET BY MOUTH ON ., TH., AND SAT. 40 Tab 5 09/26/2018 Active as of this encounter Active Problems Problem Noted Date AICD (automatic cardioverter/defibrillat or) present 02/10/2013 Heart failure, systolic, due to CAD 06/2013 Ischemic cardiomyopathy 01/06/2013 Atrial fibrillation 01/06/2013 CAD (coronary artery disease) 07/25/2012 [place] (myocardial infarction) 07/25/2012 as of this encounter [...] Progress Notes * Anibal Mcfarland RPh - 10/11/2018 11:26 AM EST Medication Therapy Disease Management - Anticoagulation Lucian Rodolfo Larson Jr. is an 82 year old male who presents to clinic for anticoagulation management and education. Current Anticoagulation Regimen: warfarin 10mg F, 5mg all other days (5mg tabs) Anticoagulation Medication Adherence: Patient non-compliant: admits to missing 1 dose 10/04. Patient-Reported Symptoms: Bruising: no Bleeding: no Miscellaneous: no Interval Health and/or Dietary Status Changes: No significant health status or dietary changes noted today INR: 2.4 Target range: 2.0-3.0 Recommendations: Continue 10mg F, 5mg all other days (5mg tabs) Follow-up: Patient to repeat PT/INR in 4 week(s) to assess dosing of warfarin for anticoagulation management. Anibal Caceres, RPh, CDE, CACP Clinical Pharmacist Medication Therapy Disease Management 10/11/2018, 11:26 AM in this encounter Plan of Treatment Upcoming Encounters Date Type Specialty Care Team Description 11/08/2018 Pharmacy [facility]acy [facility] [address] [place] [address] 11/24/2018 Office Visit [facility] [address] Health Maintenance Due Date Last Done [...] Date/Time Associated Diagnosis Comments INR FINGERSTICK STAT 10/11/2018 11:29 AM EST Paroxysmal atrial fibrillation (HCC) ST elevation myocardial infarction (STEMI), unspecified artery (HCC) Anticoagulation management encounter USP 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 therapy in this encounter Results * INR FINGERSTICK (10/11/2018 11:29 AM EST) FINGERSTICK INR 2.4 INR [facility] THERAPEUTIC RANGE Comment: Therapeutic ranges for non-operative patients: Prophylaxsis/treatment of DVT: (Range:2.0-3.0) Treatment of pulmonary embolism:(Range:2.0-3.0) Prevention of systemic embolism from: -tissue heart valves -acute myocardial infarction -valvular heart disease -atrial fibrillation (Range: 2.0-3.0) Mechanical prosthetic valves: (Range: 2.5-3.5) [facility] Performing Organization Address City/State/[facility] Phone Number [facility], [address] [facility] [place] [address] in this encounter Visit Diagnoses Diagnosis Paroxysmal atrial fibrillation (HCC)- Primary Atrial fibrillation ST elevation myocardial infarction (STEMI), unspecified artery (HCC) Anticoagulation management encounter Encounter for therapeutic drug monitoring USP 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 therapy in this encounter Advance Directives Patient has advance care planning documents on file. For more information, please contact: [facility] [place] [phone]
--- OUTSIDE RECORDS SUMMARY | 2023-09-08 00:55 | External Medical Summary ---
Author Name Unknown Address Unknown Organization R:IT USE ONLY!!! Laboratory Report Ordering Provider Test Date Status FIDELINA HOBSON [facility] 03/21/2019 11:31:00 Final Observation Date Value Abnormality Reference Status INR BldC 03/21/2019 15:02 2.5 Fin al Ds INR range/Ds INR det Patient-Rto 03/21/2019 15:02 Final Therapeutic ranges for non-o perative patients: Prophylaxsis/treatment of DVT: (Range:2.0-3.0) Treatment of pulmonary embolism:(Range:2.0-3.0) Prevention of systemic embolism from: -tissue heart valves -acute myocardial infarction -valvular heart disease -atrial fibrillation (Range: 2.0-3.0) Mechanical prosthetic valves: (Range: 2.5-3.5) Performing Location IT USE ONLY!!!
--- OUTSIDE RECORDS SUMMARY | 2023-09-08 00:55 | External Medical Summary ---
Author Name Unknown Address Unknown Organization R:IT USE ONLY!!! Laboratory Report Ordering Provider Test Date Status FIDELINA HOBSON [facility] 02/07/2019 10:58:00 Final Observation Date Value Abnormality Reference Status INR BldC 02/07/2019 11:00 2.2 Fin al Ds INR range/Ds INR det Patient-Rto 02/07/2019 11:00 Final Therapeutic ranges for non-o perative patients: Prophylaxsis/treatment of DVT: (Range:2.0-3.0) Treatment of pulmonary embolism:(Range:2.0-3.0) Prevention of systemic embolism from: -tissue heart valves -acute myocardial infarction -valvular heart disease -atrial fibrillation (Range: 2.0-3.0) Mechanical prosthetic valves: (Range: 2.5-3.5) Performing Location IT USE ONLY!!!
--- OUTSIDE RECORDS SUMMARY | 2023-09-08 00:55 | External Medical Summary ---
Author Name Unknown Address Unknown Organization R:IT USE ONLY!!! Laboratory Report Ordering Provider Test Date Status FIDELINA HOBSON [facility] 11/08/2018 11:23:00 Final Observation Date Value Abnormality Reference Status INR BldC 11/08/2018 11:24 3.6 Fin al Ds INR range/Ds INR det Patient-Rto 11/08/2018 11:24 Final Therapeutic ranges for non-o perative patients: Prophylaxsis/treatment of DVT: (Range:2.0-3.0) Treatment of pulmonary embolism:(Range:2.0-3.0) Prevention of systemic embolism from: -tissue heart valves -acute myocardial infarction -valvular heart disease -atrial fibrillation (Range: 2.0-3.0) Mechanical prosthetic valves: (Range: 2.5-3.5) Performing Location IT USE ONLY!!!
--- OUTSIDE RECORDS SUMMARY | 2023-09-08 00:55 | External Medical Summary | Summary of Care ---
Author Name Unknown Organization [place] [address] Care Team Providers Care Mattress Spring Encaser Name Role Phone Hank Oshea MD Primary Care Provider [phone] Reason for Visit * Reason Comments Dosage Adjustment In Person (Anticoag Cl inic) Encounter Details Date Type Department Care Team Description 12/06/2018 Pharmacy Pharmacy, [facility] [address] [facility] [place] [address] [facility] [address] [facility] [place] [address] Atrial fibrillation, unspecified type (HCC)*; Myocardial infarction, unspecified [place] type, unspecified artery (HCC); Anticoagulation management encounter; 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 Allergies No Known Allergiesdocumented as of this encounter (statuses as of 12/06/2018) Medications Medication Sig Dispensed Refills Start Date [...] coronary artery of [place] heart without angina pectoris Take 1 Tab [...] 5mg all other days 110 Tab 3 11/24/2018 Active documented as of this encounter (statuses as of 12/06/2018) Active Problems Problem Noted Date AICD (automatic cardioverter/defibrillat or) present 02/10/2013 Heart failure, systolic, due to CAD 06/2013 Ischemic cardiomyopathy 01/06/2013 Atrial fibrillation 01/06/2013 CAD (coronary artery disease) 07/25/2012 [place] (myocardial infarction) 07/25/2012 documented as of this encounter (statuses as of 12/06/2018) Immunizations Name Dates Previously Given Next Due [...] this encounter Progress Notes * Anibal Mcfarland [facility] - 12/06/2018 11:31 AM EST Medication Therapy Disease Management - Anticoagulation Lucian Larson Jr. is an 83 year old male who presents to clinic for anticoagulation management and education. Current Anticoagulation Regimen: warfarin 10mg F, 5mg all other days (5mg tabs) Anticoagulation Medication Adherence: Patient compliant Patient-Reported Symptoms: Bruising: no Bleeding: yes, bumped left wrist and it bled some. Miscellaneous: no Interval Health and/or Dietary Status Changes: Previous PT/INR significantly above goal goal, necessitating closer follow-up today INR: 2.5 Target range: 2.0-3.0 Recommendations: Continue 10mg F, 5mg all other days (5mg tabs) Follow-up: Patient to repeat PT/INR in 4 week(s) to assess dosing of warfarin for anticoagulation management. Anibal Caceres RPh, CDE, CACP Clinical Pharmacist Medication Therapy Disease Management 12/06/2018, 11:31 AM documented in this encounter Plan of Treatment Upcoming Encounters Date Type Specialty Care Team Description 12/12/2018 Cardiac Studies Cardiology G[facility], [facility] [address] [place] [address] [phone] 01/03/2019 [facility] [address] [facility] [facility] [address] 03/03/2019 Cardiac Studies Cardiology [facility] [address] [place] [address] [phone] 05/24/2019 Office Visit Cardiology Wilmar Lay PA-C [address] [place] [address] [phone] Health Maintenance Due Date Last Done Comments PNEUMOCOCCAL ADULT 65 YRS AND OVER (1 of 2 - PCV13) 1999 *DEPRESSION SCREENING, ANNUAL FOR PTS 18 AND OVER 12/02/2014 Influenza Vaccine (FLU shot) (#1) 2018 07/29/2017, 08/08/2012 DIABETES SCREEN EVERY 3 YRS-AGE [...] Date/Time Associated Diagnosis Comments INR FINGERSTICK STAT 12/06/2018 11:33 AM EST Atrial fibrillation, unspecified type (HCC) Myocardial infarction, unspecified [place] type, unspecified artery (HCC) Anticoagulation management encounter 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 documented in this encounter Results * INR FINGERSTICK (12/06/2018 11:33 AM EST) FINGERSTICK INR 2.5 INR [facility] THERAPEUTIC RANGE Comment: Therapeutic ranges for non-operative patients: Prophylaxsis/treatment of DVT: (Range:2.0-3.0) Treatment of pulmonary embolism:(Range:2.0-3.0) Prevention of systemic embolism from: -tissue heart valves -acute myocardial infarction -valvular heart disease -atrial fibrillation (Range: 2.0-3.0) Mechanical prosthetic valves: (Range: 2.5-3.5) [facility] Performing Organization Address City/State/[facility] Phone Number [facility], [address] [place] [address] documented in this encounter Visit Diagnoses Diagnosis Atrial fibrillation, unspecified type (HCC)- Primary Myocardial infarction, unspecified [place] type, unspecified artery (HCC) Anticoagulation management encounter Encounter for therapeutic drug monitoring senior living 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 therapy documented in this encounter Advance Directives Patient has advance care planning documents on file. For more information, please contact: [place] [address]
--- OUTSIDE RECORDS SUMMARY | 2023-09-08 00:55 | External Medical Summary | Summary of Care ---
Author Name Unknown Organization [place] [address] Care Team Providers Care Trimming Assembler Name Role Phone Hank Oshea MD Primary Care Provider [phone] Reason for Visit * Reason Comments Medication Refill Encounter Details Date Type Department Care Team Description 03/03/2019 Refill Cardiology, [facility] 132 [facility] [place] [address] Denis Langstno MD [facility] [place] [id number] Atrial fibrillation (HCC) Allergies No Known Allergiesdocumented as of this encounter (statuses as of 03/03/2019) Medications Medication Sig Dispensed Refills Start Date End Date Status VITAMIN D 2000 UNITS PO TABS one tablet daily 0 Active nitroglycerin (NITROSTAT) 0.4 MG SUBLIndications:Co ronary artery disease involving [place] coronary artery of [place] heart without angina pectoris,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 25 Tab 11 07/21/2016 Active levothyroxine (SYNTHROID) 75 MCG Tablet Take 50 mcg by mouth daily first thing in the morning. (at least 30 min prior to breakfast or other meds) 0 Active carvedilol (COREG) 12.5 MG TabletIndications: Coronary artery disease involving [place] coronary artery of [place] heart without angina pectoris Take 1 Tab [...] other days 110 Tab 3 03/03/2019 Active warfarin sodium (COUMADIN) 5 MG TabletIndications: Atrial fibrillation (HCC) 10 mg F, 5mg all other days 110 Tab 3 11/24/2018 03/03/2019 Discontinued documented as of this encounter (statuses as of 03/03/2019) Active Problems Problem Noted Date AICD (automatic cardioverter/defibrillat or) present 02/10/2013 Heart failure, systolic, due to CAD 06/2013 Ischemic cardiomyopathy 01/06/2013 Atrial fibrillation 01/06/2013 CAD (coronary artery disease) 07/25/2012 ID (myocardial infarction) 07/25/2012 documented as of this encounter (statuses as of 03/03/2019) Immunizations Name Dates Previously Given Next Due [...] encounter Miscellaneous Notes * Telephone Encounter - Jayce Sparks Jr., DO - 03/03/2019 1:18 PM EDT Signed Prescriptions: Disp Refills warfarin sodium (COUMADIN) 5 MG Tablet 110 Tab3 Si mg F, 5mg all other daysAuthorizing Provider: JAYCE SPARKS JR documented in this encounter Plan of Treatment Upcoming Encounters Date Type Specialty Care Team Description 03/21/2019 [facility] [place] [address] [facility], [place] [address] 05/24/2019 Office Visit Cardiology Wilmar Lay PA-C [address] [place] [address] [phone] 06/07/2019 Cardiac Studies Cardiology , [facility] [address] [place] [address] [phone] 09/13/2019 Cardiac Studies Cardiology [place], [facility] [address] [place] [address] [phone] 12/18/2019 Cardiac Studies Cardiology [place], [facility] [address] [place] [address] [phone] 03/22/2020 Cardiac Studies Cardiology [place], [facility] [address] [place] [address] [phone] Health Maintenance Due Date Last Done Comments [...] fibrillation documented in this encounter Advance Directives Patient has advance care planning documents on file. For more information, please contact: [place] [phone]
--- OUTSIDE RECORDS SUMMARY | 2023-09-08 00:55 | External Medical Summary ---
Author Name Unknown Address Unknown Organization R:IT USE ONLY!!! Laboratory Report Ordering Provider Test Date Status FIDELINA [facility]BSON [facility] 01/05/2019 11:26:00 Final Observation Date Value Abnormality Reference Status INR BldC 01/05/2019 11:27 2.9 Fin al Ds INR range/Ds INR det Patient-Rto 01/05/2019 11:27 Final Therapeutic ranges for non-o perative patients: Prophylaxsis/treatment of DVT: (Range:2.0-3.0) Treatment of pulmonary embolism:(Range:2.0-3.0) Prevention of systemic embolism from: -tissue heart valves -acute myocardial infarction -valvular heart disease -atrial fibrillation (Range: 2.0-3.0) Mechanical prosthetic valves: (Range: 2.5-3.5) Performing Location IT USE ONLY!!!
--- OUTSIDE RECORDS SUMMARY | 2023-09-08 00:55 | External Medical Summary | Summary of Care ---
Author Name Unknown Organization [place] [address] Care Team Providers Care Qual Field Manager Name Role Phone Hank Oshea MD Primary Care Provider [phone] Reason for Visit * Reason Comments Medication Refill Encounter Details Date Type Department Care Team Description 11/02/2018 Refill Cardiology, [facility] 132 [facility] [place] [address] Wesly Mancia MD 132 [facility] [place] [address] [phone] Allergies No Known Allergiesas of this encounter Medications Medication Sig Dispensed Refills Start Date End Date Status VITAMIN D 2000 UNITS PO TABS one tablet daily 0 Active nitroglycerin (NITROSTAT) 0.4 MG SUBLIndications:Co ronary artery disease involving mo[place] coronary artery of [place] heart without angina pectoris,Myocardia l infarction involving [...] 12.5 MG TabletIndications: Coronary artery disease involving mo[place] coronary artery of mo[place] heart without angina pectoris Take 1 Tab by mouth 2 times a day. with food 180 Tab 3 06/08/2018 Active digoxin (LANOXIN) 125 mcg Tablet TAKE ONE TABLET BY MOUTH ON ., TH., AND SAT. 40 Tab 5 09/26/2018 Active ramipril (ALTACE) 2.5 MG Capsule Take 1 Cap by mouth daily. 90 Cap 3 11/03/2018 Active ramipril (ALTACE) 2.5 MG Capsule Take 1 Cap by mouth daily. 90 Cap 3 09/13/2017 11/02/2018 Discontinued as of this encounter Active Problems Problem Noted Date AICD (automatic cardioverter/defibrillat or) present 02/10/2013 Heart failure, systolic, due to CAD 06/2013 Ischemic cardiomyopathy 01/06/2013 Atrial fibrillation 01/06/2013 CAD (coronary artery disease) 07/25/2012 NV (myocardial infarction) 07/25/2012 as of this encounter [...] encounter Miscellaneous Notes * Telephone Encounter - Pretty Banks, outreach assistant - 11/03/2018 2:45 PM EST Pt calling to check on status of prescription. Pt can be reached at the following number(s): Patient Phone Numbers Please advise. Thank you, Pretty Banks Social Research Assistant Pharmacy Refill Call Center 11/03/2018,2:45 PM * Telephone Encounter - Wesly Mancia MD - 11/03/2018 1:46 PM EST Signed Prescriptions: Disp Refills ramipril (ALTACE) 2.5 MG Capsule 90 Cap 3 Sig: Take 1 Cap by mouth daily. Authorizing Provider: WESLY MANCIA * Telephone Encounter - Anushka Champion [facility] - 11/03/2018 11:39 AM EST Pending Prescriptions: Disp Refills ramipril (ALTACE) 2.5 MG Capsule 90 Cap 3 Sig: Take 1 Cap by mouth daily. * Telephone Encounter - Anushka Champion [facility] - 11/03/2018 11:39 AM EST Patient requesting refills for Ramipril. As per protocol, refill pharmacists only permitted to authorize prescriptions written by family practice PCPs. Please approve if appropriate. Thank you, Anushka Champion, PharmD Staff Pharmacist Refill Call Center 11/03/2018, 11:39 AM * Telephone Encounter - Melanie Spring outreach assistant - 11/02/2018 1:32 PM EST Pending Prescriptions: Disp Refills ramipril (ALTACE) 2.5 MG Capsule 90 Cap 3 Sig: Take 1 Cap by mouth daily. Last Office Visit: 03/21/2018 Next Office Visit: 11/24/2018 Scheduled Provider(s): Wesly Mancia MD If no future appointments scheduled, and last appointment is greater than a year ago, please schedule patient for a follow-up appointment Last date the medication was ordered: 09/13/2017 Patient Phone Numbers Labs: Lab Results Component Value Date/Time CREAT 1.3 (H) 01/11/2018 11:41 AM POTASSIUM 4.5 01/11/2018 11:41 AM TSH 3.25 07/20/2018 11:03 AM LDLCALC 68 01/11/2018 11:41 AM ALT <5 (L) 01/11/2018 11:41 AM HGBA1C 5.4 06/30/2016 10:59 AM in this encounter Plan of Treatment Upcoming Encounters Date Type Specialty Care Team Description 11/08/2018 Pharmacy [facility]acy [facility] [address] [place] [address] 11/24/2018 Office Visit Cardiology Wesly Mancia MD 132 [facility] [place] [address] Health Maintenance Due Date [...] For more information, please contact: [place] [address]
--- OUTSIDE RECORDS SUMMARY | 2023-09-08 00:55 | External Medical Summary | Summary of Care ---
Author Name Unknown Organization [place] [address] Care Team Providers Care Hospice Liaison Name Role Phone Hank Oshea MD Primary Care Provider Reason for Visit * Reason Comments Follow Up Encounter Details Date Type Department Care Team Description 11/24/2018 Office Visit Cardiology, [facility] [address] [place] [address] Denis Langston MD 132 [facility] [place] [address] [phone] Heart failure, systolic, due to CAD (HCC)*; Ischemic cardiomyopathy; AICD (automatic cardioverter/defibrill ator) present; CAD (coronary artery disease); Permanent atrial fibrillation (HCC); Atrial fibrillation (HCC) Allergies No Known Allergiesdocumented as of this encounter (statuses as of 11/24/2018) Medications Medication Sig Dispensed Refills Start Date End Date Status VITAMIN D 2000 UNITS PO TABS one tablet daily 0 Active nitroglycerin (NITROSTAT) 0.4 MG SUBLIndications:Co ronary artery disease involving [place] coronary artery of [place] heart without angina pectoris,Myocardia l infarction involving [...] 12.5 MG TabletIndications: Coronary artery disease involving [place] coronary artery of [place] heart without angina pectoris Take 1 Tab [...] other days 110 Tab 3 11/24/2018 Active furosemide (LASIX) 20 MG Tablet Take 1 Tab by mouth daily. 90 Tab 3 09/13/2017 11/24/2018 Discontinued clopidogrel (PLAVIX) 75 MG TabletIndications: Permanent atrial fibrillation (HCC) Take 1 Tab by mouth daily. 90 Tab 3 02/14/2018 11/24/2018 Discontinued warfarin sodium (COUMADIN) 5 MG TabletIndications: Atrial fibrillation (HCC) 10 mg F, 5mg all other days 110 Tab 3 03/21/2018 11/24/2018 Discontinued rosuvastatin (CRESTOR) 5 MG TabletIndications: Heart failure, systolic, due to CAD (HCC),Ischemic cardiomyopathy,AIC D (automatic cardioverter/defib rillator) present,CAD (coronary artery disease) Take 1 tablet every other day 45 Tab 3 05/02/2018 11/24/2018 Discontinued documented as of this encounter (statuses as of 11/24/2018) Active Problems Problem Noted Date AICD (automatic cardioverter/defibrillat or) present 02/10/2013 Heart failure, systolic, due to CAD 06/2013 Ischemic cardiomyopathy 01/06/2013 Atrial fibrillation 01/06/2013 CAD (coronary artery disease) 07/25/2012 IA (myocardial infarction) 07/25/2012 documented as of this encounter (statuses as of 11/24/2018) Immunizations Name Dates Previously Given Next Due [...] Vital Signs Vital Sign Reading Time Taken Blood Pressure 112/66 11/24/2018 1:38 PM EST Pulse 84 11/24/2018 1:38 PM EST Temperature - - Respiratory Rate 16 11/24/2018 1:38 PM EST Oxygen Saturation - - Inhaled Oxygen Concentration - - Weight 76.7 kg (169 lb) 11/24/2018 1:38 PM EST Height - - Body Mass Index 24.25 11/24/2018 1:38 PM EST documented in this encounter Progress Notes * Denis Langston MD - 11/24/2018 6:30 PM EST 11/24/2018 Cardiology Follow Up Referring Provider: PCP: HANK OSHEA [address] [place] [address] [phone] Chief Complaint: Follow-up ischemic cardiomyopathy SUBJECTIVE: Lucian Rodolfo Larson Jr. is a 82 year old year old male with cardiac history 1. 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 2. Ischemic cardiomyopathy , EF 15 to 20% 3. Prior single-chamber implantable cardiac defibrillator in January 2013. 4. Acute decompensation in the setting of elevated heart rate, receiving stenting to the recannulated left anterior descending and attempted stent into the proximal right coronary artery in May 2014. 5. Chronic atrial fibrillation. 6. Hyperlipidemia, on therapy. Patient presents today in routine followup. Notes having been treated for cellulitis in March of 2018, and hospitalization with pneumonia in July 2018. He has had gradual weight reduction for the past 2 years time. Notes no anginal symptoms notes no tachy palpitations syncope or near syncope hashad no defibrillator activation appetite has been fair. Continues to have balance issues in ambulates with cane and walker. Notes no bleeding difficulties melena hematochezia. Remains chronically anticoagulated A Complete Review of 10 Systems is as stated above or negative. Patient Active Problem List Diagnosis Code CAD (coronary artery disease) I25.10 IA (myocardial infarction) ([facility]) I21.9 Heart failure, systolic, due to CAD ([facility]) I50.20, I25.10 Ischemic cardiomyopathy I25.5 Atrial fibrillation ([facility]) I48.91 AICD (automatic cardioverter/defibrillator) present Z95.810 Review of patient's allergies indicates: No Known Allergies Current Outpatient Medications Medication Sig Dispense Refill clopidogrel (PLAVIX) 75 MG Tablet Take 1 Tab by mouth daily. 90 Tab 3 furosemide (LASIX) 20 MG Tablet Take 1 Tab by mouth daily. 90 Tab 3 rosuvastatin (CRESTOR) 5 MG Tablet Take 1 tablet every other day 45 Tab 3 warfarin sodium (COUMADIN) 5 MG Tablet 10 mg F, 5mg all other days 110 Tab 3 ramipril (ALTACE) 2.5 MG Capsule Take 1 Cap by mouth daily. 90 Cap 3 digoxin (LANOXIN) 125 mcg Tablet TAKE ONE TABLET BY MOUTH ON ., ., AND SAT. 40 Tab 5 carvedilol (COREG) 12.5 MG Tablet Take 1 Tab by mouth 2 times a day. with food 180 Tab 3 levothyroxine (SYNTHROID) 75 MCG Tablet Take 50 mcg by mouth daily first thing in the morning. (at least 30 min prior to breakfast or other meds) nitroglycerin (NITROSTAT) 0.[address] 1 Tab under the tongue as needed for Pain, Chest. 25 Tab 11 VITAMIN D 2000 UNITS PO TABS one tablet daily OBJECTIVE/PHYSICAL EXAMINATION: BP 112/66 | Pulse 84 | Resp 16 | Wt 169 lbs (76.658kg) | BMI 24.25 kg/m | BSA 1.95 m General: no acute distress and stated age Head: normocephalic, no masses, lesions, tenderness or abnormalities Eyes: conjunctiva are pink and non-injected, sclera clear Throat: clear Nares: without discharge Neck: Thin, supple, no adenopathy, no bruits, normal jugular venous pulse, no hepatojugular reflux,no carotid bruits Chest: normal shape and mildly diminished respiratory effort pacer defibrillator site without tenderness Lungs: clear to auscultation and percussion Cardiac Exam: Irregular irregular with grade 1/6 systolic murmur no diastolic murmur no S3 gallop Abdomen: abdomen soft, non-tender, no abnormal masses, no hepatosplenomegaly, no abdominal bruit, no femoral bruit Musculoskeletal: no gait disturbance, no joint inflammation, no deforming arthritis Extremities: no edema, no cyanosis, pulses intact 2+/4 Neuro: grossly normal exam Data: Device check: August 22, 2018 CURRENT SYSTEM: ICD: Medtronic, model - Eric II VR [id number] SN: [id number] RV Lead: Medtronic, Model - 6935 SN: [id number]: 02-02-2013 Normal device function with minimal ventricular pacing Lipid Panel Results: LIPID PANEL Boris Dt/Tm Resulted Value Status HOURS FASTING (hours) 01/11/18 11:41A 01/11/18 0 F TRIGLYCERIDES (mg/dL) 01/11/18 11:41A 01/11/18 79 F CHOLESTEROL (mg/dL) 01/11/18 11:41A 01/11/18 133 F HDL (mg/dL) 01/11/18 11:41A 01/11/18 49 F CHOL/HDL RATIO ( ) 01/11/18 11:41A 01/11/18 2.7 F LDL (CALCULATED) (mg/dL) 01/11/18 11:41A 01/11/18 68 F ASSESSMENT: 82 year old year old male History of ischemic cardiomyopathy compensated class 2 congestive heart failure, chronic atrial fibrillation with controlled ventricular response rate Patient is on appropriate medical therapies concurrently compensated will make no adjustments patient report any acute decline or change PLAN: Continue all current medications May consider Entresto after next visit DISPOSITION: Follow-up 6 months with ongoing device management through [facility] Denis Langston MD [facility] Cardiology, [address] [place] [address] documented in this encounter Nursing Notes * Carmen Felix LPN - 11/24/2018 1:37 PM EST Examination Room: Name: Lucian Larson Jr. Date of : (1935). Reason for Visit: follow up Interim Hospitalization(s): 03/26/2018 cellulitis [facility], May 2018 hernia repair [facility], Problems/Concerns: Jul 2018 PNX Chest Pain/SOB: denies My [facility] is a way you can talk to your provider online through e-mail. Would you like to sign up? I can activate it for you? NO documented in this encounter Plan of Treatment Upcoming Encounters Date Type Specialty Care Team Description 2018 Cardiac Studies Cardiology , [facility] [address] [place] [address] [phone] 12/06/2018 Pharmacy Pharmacy [place] [address] [facility] [address] 03/03/2019 Cardiac Studies Cardiology [facility], [facility] [place] [address] [place] [address] [phone] 05/24/2019 Office Visit Cardiology Wilmar Lay PA-C [address] [place] [address] [phone] Health Maintenance Due Date Last Done Comments [...] Coronary atherosclerosis of unspecified type of vessel, [place] or graft Permanent atrial fibrillation (HCC) Atrial fibrillation Atrial fibrillation (HCC) Atrial fibrillation documented in this encounter Advance Directives Patient has advance care planning documents on file. For more information, please contact: [place] [address]"
--- OUTSIDE RECORDS SUMMARY | 2023-09-08 00:55 | External Medical Summary ---
Author Name Unknown Address Unknown Organization R:IT USE ONLY!!! Laboratory Report Ordering Provider Test Date Status FIDELINA HOBSON [facility] 10/11/2018 11:29:00 Final Observation Date Value Abnormality Reference Status INR BldC 10/11/2018 11:30 2.4 Fin al Ds INR range/Ds INR det Patient-Rto 10/11/2018 11:30 Final Therapeutic ranges for non-o perative patients: Prophylaxsis/treatment of DVT: (Range:2.0-3.0) Treatment of pulmonary embolism:(Range:2.0-3.0) Prevention of systemic embolism from: -tissue heart valves -acute myocardial infarction -valvular heart disease -atrial fibrillation (Range: 2.0-3.0) Mechanical prosthetic valves: (Range: 2.5-3.5) Performing Location IT USE ONLY!!!
--- OUTSIDE RECORDS SUMMARY | 2023-09-08 00:55 | External Medical Summary | Summary of Care ---
Author Name Unknown Organization [place] [address] Care Team Providers Care Pelt Salter Name Role Phone Hank Oshea MD Primary Care Provider Reason for Visit * Reason Comments Defibrillator Clinic Encounter Details Date Type Department Care Team Description 03/03/2019 Cardiac Studies Cardiology, [facility] 132 [facility] [place] [address] [place], [facility] 132 [facility] [place] [address] [phone] Ischemic cardiomyopathy*; Atrial fibrillation (HCC); AICD (automatic cardioverter/defibril lator) present Allergies No Known Allergiesdocumented as of this encounter (statuses as of 03/06/2019) Medications Medication Sig Dispensed Refills Start Date End Date Status VITAMIN D 2000 UNITS PO TABS one tablet daily 0 Active nitroglycerin (NITROSTAT) 0.4 MG SUBLIndications:[place]as[place] ry artery disease involving [place] coronary artery of [place] heart without angina pectoris,Myocardial infarction involving [...] 12.5 MG TabletIndications:Salo nary artery disease involving [place]osh[place] coronary artery of [place]osh[place] heart without angina pectoris Take 1 Tab [...] as of this encounter (statuses as of 03/06/2019) Active Problems Problem Noted Date AICD (automatic cardioverter/defibrillat or) present 02/10/2013 Heart failure, systolic, due to CAD 06/2013 Ischemic cardiomyopathy 01/06/2013 Atrial fibrillation 01/06/2013 CAD (coronary artery disease) 07/25/2012 SC (myocardial infarction) 07/25/2012 documented as of this encounter (statuses as of 03/06/2019) Immunizations Name Dates Previously Given Next Due [...] of this encounter Progress Notes * Sosa Cotter LPN - 03/03/2019 12:10 PM EDT [facility] - SINGLE CHAMBER DEFIBRILLATOR -- 03/03/2019 TYPE OF VISIT:Threshold testing rep. INDICATION: I25.5 Ischemic cardiomyopathy (primary encounter diagnosis) I48.91 Atrial fibrillation (HCC) Z95.810 AICD (automatic cardioverter/defibrillator) present IMPLANTING PHYSICIAN: Dr. Gonzalez IMPLANT/DEVICE HISTORY: February 02, 2013 CURRENT SYSTEM: ICD: Medtronic, model - Eric II VR [id number] SN: [id number] Lead: Medtronic, Model - 6935 SN: [id number]: 02-02-2013 Abandoned leads: none ALERTS/ADVISORIES: none PATIENT EVALUATION: Symptoms: No dizziness, palpitations, syncope, or presyncope. Pocket evaluation: Well healed without drainage. No ecchymosis noted . Incision well approximated Intrinsic rhythm: Atrial FIbrillation with intact AV node function. DEVICE EVALUATION: R V Pacing threshold: 0.5 volts at 0.4 msec Sensin.0 mV Pacing impedance: 439 ohms Percentage paced: 0.3 % HVLI: 55 ohms Thoracic impedance monitoring: stable Battery: 2.97 volts PANCHO: 2.63 volts Charge time: 9.8 seconds Short V-V intervals: 0 Oral anticoagulant therapy: Coumadin,Plavix Rate/Rhythm medication: Digoxin,Coreg VT/VF episodes (since last evaluation): 0 Past VT/VF episodes: First shock: Most recent [...] x 5) Mode switch: OFF PARAMETER CHANGES: none IMPRESSION: Normal single chamber defibrillator function. Stable pacing and sensing thresholds PLAN: Return to [facility] Device Clinic in 3 months. Nurse: Sosa Cotter LPN MANAGER LINE: This patient was seen in the Heart [...] Specialty Care Team Description 03/21/2019 Pharmacy Pharmacy [place], [facility] [address] [place] [address] 05/24/2019 Office Visit Cardiology [place]mar Lay PA-C [address] [place] [address] [phone] 06/07/2019 Cardiac Studies Cardiology [place], [facility] [address] [place] [address] [phone] 09/13/2019 Cardiac Studies Cardiology [place], [facility] [address] [place] [address] [phone] 12/18/2019 Cardiac Studies Cardiology [place], [facility] [address] [place] [address] [phone] 03/22/2020 Cardiac Studies Cardiology [facility] [address] [place] [address] [phone] Health Maintenance Due Date Last Done Comments [...] Diagnosis Comments SINGLE-LEAD DEFIBRILLATOR + REPROGRAM Routine 03/03/2019 Ischemic cardiomyopathy Atrial fibrillation (HCC) AICD (automatic cardioverter/defibrill ator) present documented in this encounter Results * SINGLE-LEAD DEFIBRILLATOR + REPROGRAM (03/03/2019) Narrative Performed At documented in this encounter Visit Diagnoses Diagnosis Ischemic cardiomyopathy- Primary Other specified forms of chronic ischemic heart disease Atrial fibrillation (HCC) Atrial fibrillation AICD (automatic cardioverter/defibrillator) present Automatic implantable cardiac defibrillator in situ documented in this encounter Advance Directives Patient has advance care planning documents on file. For more information, please contact: [place] [address]
--- OUTSIDE RECORDS SUMMARY | 2023-09-08 00:55 | External Medical Summary | Summary of Care ---
Author Name Unknown Organization [place] [address] Care Team Providers Care Tonnage Compilation Clerk Name Role Phone Hank Oshea MD Primary Care Provider [phone] Reason for Visit * Reason Comments Defibrillator Clinic Encounter Details Date Type Department Care Team Description 12/12/2018 Cardiac Studies Cardiology, [facility] [address] [facility] [place] [address] Gw, Remote [facility] Devices 132 [facility] [place] [address] [phone] Ischemic cardiomyopathy*; Atrial fibrillation (HCC); AICD (automatic cardioverter/defibril lator) present Allergies No Known Allergiesdocumented as of this encounter (statuses as of 12/13/2018) Medications Medication Sig Dispensed Refills Start Date End Date Status VITAMIN D 2000 UNITS PO TABS one tablet daily 0 Active nitroglycerin (NITROSTAT) 0.4 MG SUBLIndications:Rascon ry artery disease involving [place] coronary artery [...] 12.5 MG TabletIndications:Salo nary artery disease involving [place] coronary artery of [place] heart without angina pectoris Take 1 Tab [...] as of this encounter (statuses as of 12/13/2018) Active Problems Problem Noted Date AICD (automatic cardioverter/defibrillat or) present 02/10/2013 Heart failure, systolic, due to CAD 06/2013 Ischemic cardiomyopathy 01/06/2013 Atrial fibrillation 01/06/2013 CAD (coronary artery disease) 07/25/2012 [place] (myocardial infarction) 07/25/2012 documented as of this encounter (statuses as of 12/13/2018) Immunizations Name Dates Previously Given Next Due [...] Progress Notes * Sosa Cotter LPN - 12/12/2018 8:28 AM EST REMOTE MONITORING TRANSMISSION - DEFIBRILLATOR -- 12/12/2018 TYPE OF VISIT: This is a scheduled remote monitoring transmission. INDICATION: I25.5 Ischemic cardiomyopathy (primary encounter diagnosis) I48.91 Atrial fibrillation (HCC) Z95.810 AICD (automatic cardioverter/defibrillator) present IMPLANTING PHYSICIAN: Dr. Gonzalez IMPLANT/DEVICE HISTORY: February 02, 2013 CURRENT SYSTEM: ICD: Medtronic, model - Eric II VR [id number] SN: [id number] RV Lead: Medtronic, Model - [id number] SN: [id number]: 02-02-2013 Abandoned leads: none ALERTS/ADVISORIES: none PATIENT EVALUATION: Presenting rhythm : Atrial FIbrillation with intact AV node function. DEVICE EVALUATION: R V Auto threshold: --- volts at --- msec Sensin.9 mV Pacing impedance: 494 ohms Percentage paced 0.3 % HVLI: 58 ohms Battery: 3.01 volts PANCHO: 2.63 volts Charge time: 9.7 seconds Short V-V intervals: 0 Mode switch episodes: 0 VT/VF episodes (since last evaluation): 1 NsVT Past VT/VF episodes: First shock: Most recent shock: Total ICD shocks/ATP therapy: Appropriate shocks: Inappropriate shocks: ATP therapy: FINAL ICD PARAMETERS: Pacemaker mode/rate: VVI at 40 bpm RV Amplitude: 2.0 volts Pulse width: 0.4 msec VT detection: Off FVT detection: 188-231 bpm (Burst x 1, 25J, 35J x 4) VF detection: >188 bpm (ATP during charging, 25J, 35J x 5) Mode switch:OFF IMPRESSION: Normal defibrillator function. Stable pacing and sensing thresholds PLAN: The next remote monitoring transmission is scheduled for 3 months. Nurse: Sosa Cotter LPN GROUP LEADER SEMICONDUCTOR PROCESSING: This patient was interrogated remotely via the [...] Encounters Date Type Specialty Care Team Description 01/03/2019 Pharmacy [facility] [address] [place], [place] [address] 03/03/2019 Cardiac Studies Cardiology [facility] [address] [place] [address] [phone] 05/24/2019 Office Visit Cardiology Wilmar Lay PA-C [address] [place] [address] [phone] Health Maintenance Due Date Last Done Comments [...] For more information, please contact: [place] [address]
--- OUTSIDE RECORDS SUMMARY | 2023-09-08 00:55 | External Medical Summary | Summary of Care ---
Author Name Unknown Organization [place] [address] Care Team Providers Care Cementer Machine Name Role Phone Hank Oshea MD Primary Care Provider [phone] Reason for Visit * Reason Comments Medication Refill Encounter Details Date Type Department Care Team Description 11/02/2018 Refill Cardiology, [facility] 132 [facility] [place] [address] Wesly Mancia MD 132 [facility] [place] [address] [phone] Allergies No Known Allergiesas of this encounter Medications Medication Sig Dispensed Refills Start Date End Date Status VITAMIN D 2000 UNITS PO TABS one tablet daily 0 Active nitroglycerin (NITROSTAT) 0.4 MG SUBLIndications:Co ronary artery disease involving [place] coronary artery of [place] heart without angina pectoris,Myocardia l infarction involving [...] 12.5 MG TabletIndications: Coronary artery disease involving [place] coronary artery of [place] heart without angina pectoris Take 1 Tab [...] artery disease) 07/25/2012 [place] (myocardial infarction) 07/25/2012 as of this encounter [...] WESLY MANCIA * Telephone Encounter - Anushka Champion, [facility] - 11/03/2018 11:39 AM EST Pending Prescriptions: Disp Refills ramipril (ALTACE) 2.5 MG Capsule 90 Cap 3 Sig: Take 1 Cap by mouth daily. * Telephone Encounter - Anushka Champion, [facility] - 11/03/2018 11:39 AM EST Patient requesting refills for Ramipril. As per protocol, refill pharmacists only permitted to authorize prescriptions written by family practice PCPs. Please approve if appropriate. Thank you, Anushka Champion, PharmD Staff Pharmacist Refill Call Center 11/03/2018, 11:39 AM * Telephone Encounter - Melanie Spring, weaving supervisor - 11/02/2018 1:32 PM EST Pending Prescriptions: [...] Pharmacy [facility] [address] [place] [address] 11/24/2018 Office Visit Cardiology Wesly Mancia MD 132 [facility] [place] [address] Health Maintenance Due Date [...] For more information, please contact: [place] [address]
--- OUTSIDE RECORDS SUMMARY | 2023-09-08 00:55 | External Medical Summary | Summary of Care ---
Author Name Unknown Organization [place] [address] Care Team Providers Care Driver Medic Name Role Phone Hank Oshea MD Primary Care Provider [phone] Reason for Visit * Reason Comments Dosage Adjustment In Person (Anticoag Cl inic) Encounter Details Date Type Department Care Team Description 01/05/2019 Pharmacy Pharmacy, [facility] 200 [facility] [place] [address] [facility] 200 [facility] [address] Atrial fibrillation, unspecified type (HCC)*; Myocardial infarction, unspecified SD type, unspecified artery (HCC); Anticoagulation management encounter; skilled nursing 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 therapy Allergies No Known Allergiesdocumented as of this encounter (statuses as of 01/05/2019) Medications Medication Sig Dispensed Refills Start Date End Date Status VITAMIN D 2000 UNITS PO TABS one tablet daily 0 Active nitroglycerin (NITROSTAT) 0.4 MG SUBLIndications:Rascon ry artery disease involving [place] coronary artery of [place] heart without angina pectoris,Myocardial infarction involving other [...] 12.5 MG TabletIndications:Salo nary artery disease involving [place] coronary artery of [place] heart without angina pectoris Take 1 Tab [...] as of this encounter (statuses as of 01/05/2019) Active Problems Problem Noted Date AICD (automatic cardioverter/defibrillat or) present 02/10/2013 Heart failure, systolic, due to CAD 06/2013 Ischemic cardiomyopathy 01/06/2013 Atrial fibrillation 01/06/2013 CAD (coronary artery disease) 07/25/2012 [place] (myocardial infarction) 07/25/2012 documented as of this encounter (statuses as of 01/05/2019) Immunizations Name Dates Previously Given Next Due [...] Progress Notes * Anibal Mcfarland RP - 01/05/2019 11:22 AM EST Medication Therapy Disease Management - [...] K intake decreased since last follow-up INR: 2.9 Target range: 2.0-3.0 Recommendations: Continue 10mg F, 5mg all other days (5mg tabs) Follow-up: Patient to repeat PT/INR in 5 week(s) to assess dosing of warfarin for anticoagulation management. Anibal Caceres RPh, CDE, CACP Clinical Pharmacist Medication Therapy Disease Management 01/05/2019, 11:22 AM documented in this encounter Plan of Treatment Upcoming Encounters Date Type Specialty Care Team Description 02/07/2019 Pharmacy [facility] [address] [facility] [address] 03/03/2019 Cardiac Studies [facility]iology [facility] [address] [place] [address] [phone] 05/24/2019 Office Visit Cardiology Wilmar Lay PA-C [address] [place] [address] [phone] Health Maintenance Due Date Last Done Comments [...] Date/Time Associated Diagnosis Comments INR FINGERSTICK STAT 01/05/2019 11:26 AM EST Atrial fibrillation, unspecified type (HCC) Myocardial infarction, unspecified SD type, unspecified artery (HCC) Anticoagulation management encounter skilled nursing 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 therapy documented in this encounter Results * INR FINGERSTICK (01/05/2019 11:26 AM EST) FINGERSTICK INR 2.9 INR [facility] THERAPEUTIC RANGE Comment: Therapeutic ranges for non-operative patients: Prophylaxsis/treatment of DVT: (Range:2.0-3.0) Treatment of pulmonary embolism:(Range:2.0-3.0) Prevention of systemic embolism from: -tissue heart valves -acute myocardial infarction -valvular heart disease -atrial fibrillation (Range: 2.0-3.0) Mechanical prosthetic valves: (Range: 2.5-3.5) [facility] Performing Organization Address City/State[facility] Phone Number [facility], [address] [place] [address] documented in this encounter Visit Diagnoses Diagnosis Atrial fibrillation, unspecified type (HCC)- Primary Myocardial infarction, unspecified SD type, unspecified artery (HCC) Anticoagulation management encounter Encounter for therapeutic drug monitoring termite exterminator 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 therapy documented in this encounter Advance Directives Patient has advance care planning documents on file. For more information, please contact: [place] [address]
--- OUTSIDE RECORDS SUMMARY | 2023-09-08 00:55 | External Medical Summary | Summary of Care ---
Author Name Unknown Organization [place] [address] Care Team Providers Care Site Technician Name Role Phone Hank Oshea MD Primary Care Provider [phone] Reason for Visit * Reason Comments Dosage Adjustment In Person (Anticoag Cl inic) Encounter Details Date Type Department Care Team Description 02/07/2019 Pharmacy Pharmacy, [facility] 200 [facility] [place] [address] [facility] 200 [facility] [place] [address] Atrial fibrillation, unspecified type (HCC)*; Myocardial infarction, unspecified [place] type, unspecified artery (HCC); Anticoagulation management encounter; [facility] 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 therapy Allergies No Known Allergiesdocumented as of this encounter (statuses as of 02/07/2019) Medications Medication Sig Dispensed Refills Start Date End Date Status VITAMIN D 2000 UNITS PO TABS one tablet daily 0 Active nitroglycerin (NITROSTAT) 0.4 MG SUBLIndications:Rascon ry artery disease involving [place] coronary artery of [place] heart without angina pectoris,Myocardial infarction involving other [...] 12.5 MG TabletIndications:Salo nary artery disease involving [place] coronary artery of [place] heart without angina pectoris Take 1 Tab [...] as of this encounter (statuses as of 02/07/2019) Active Problems Problem Noted Date AICD (automatic cardioverter/defibrillat or) present 02/10/2013 Heart failure, systolic, due to CAD 06/2013 Ischemic cardiomyopathy 01/06/2013 Atrial fibrillation 01/06/2013 CAD (coronary artery disease) 07/25/2012 [place] (myocardial infarction) 07/25/2012 documented as of this encounter (statuses as of 02/07/2019) Immunizations Name Dates Previously Given Next Due [...] this encounter Progress Notes * Anibal Mcfarland [facility] - 02/07/2019 10:55 AM EDT Medication Therapy Disease Management [...] status or dietary changes noted today INR: 2.2 Target range: 2.0-3.0 Recommendations: Continue 10mg F, 5mg all other days (5mg tabs) Follow-up: Patient to repeat PT/INR in 6 week(s) to assess dosing of warfarin for anticoagulation management. Anibal Caceres RPh, CDE, CACP Clinical Pharmacist Medication Therapy Disease Management 02/07/2019, 10:55 AM documented in this encounter Plan of Treatment Upcoming Encounters Date Type Specialty Care Team Description 03/03/2019 Cardiac Studies [facility]iology [facility] [address] [place] [address] [phone] 03/21/2019 Pharmacy Pharmacy [facility] [address] 05/24/2019 Office Visit Cardiology Wilmar Lay PA-C [address] [place] [address] [phone] Health Maintenance Due Date Last Done Comments PNEUMOCOCCAL ADULT 65 YRS AND OVER (1 of 2 - PCV13) 1999 *DEPRESSION SCREENING, ANNUAL FOR PTS 18 AND OVER 12/02/2014 Influenza Vaccine (FLU shot) (#1) 2018 07/29/2017, 08/08/2012 *BASIC METABOLIC PANEL (BMP) FOR HTN YEARLY 01/13/2019 DIABETES SCREEN EVERY 3 YRS-AGE 45 AND ABOVE 01/11/2021 01/11/2018, 09/21/2017, 11/25/2016, Additional history exists DTaP,Tdap,and Td Vaccines (2 - Tdap) 07/29/2027 07/29/2017 MENINGOCOCCAL (MENACTRA) Aged Out No longer eligible based on patient's age to complete this topic documented as of this encounter Implants Not on filedocumented as of this encounter Procedures Procedure Name Priority Date/Time Associated Diagnosis Comments INR FINGERSTICK STAT 02/07/2019 10:58 AM EDT Atrial fibrillation, unspecified type (HCC) Myocardial infarction, unspecified [place] type, unspecified artery (HCC) Anticoagulation management encounter penitentiary 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 therapy documented in this encounter Results * INR FINGERSTICK (02/07/2019 10:58 AM EDT) FINGERSTICK INR 2.2 INR [facility] THERAPEUTIC RANGE Comment: Therapeutic ranges for non-operative patients: Prophylaxsis/treatment of DVT: (Range:2.0-3.0) Treatment of pulmonary embolism:(Range:2.0-3.0) Prevention of systemic embolism from: -tissue heart valves -acute myocardial infarction -valvular heart disease -atrial fibrillation (Range: 2.0-3.0) Mechanical prosthetic valves: (Range: 2.5-3.5) [facility] Performing Organization Address City/State[facility] Phone Number [facility], [address] [facility] [place] [address] documented in this encounter Visit Diagnoses Diagnosis Atrial fibrillation, unspecified type (HCC)- Primary Myocardial infarction, unspecified [place] type, unspecified artery (HCC) Anticoagulation management encounter Encounter for therapeutic drug monitoring penitentiary 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 therapy documented in this encounter Advance Directives Patient has advance care planning documents on file. For more information, please contact: [place] [address]
--- OUTSIDE RECORDS SUMMARY | 2023-09-08 00:56 | External Medical Summary | Summary of Care ---
Author Name Unknown Organization [place] [address] Phone Care Team Providers Care Armed Security Officer Name Role Phone Hank Oshea MD Primary Care Provider [phone] Reason for Visit * Reason Comments MEDICATION REFILL Encounter Details Date Type Department Care Team Description 05/02/2018 Refill Cardiology, [facility] 132 [facility] [place] [address] Wesly Langston MD 132 [place] [address] [phone] Heart failure, systolic, due to CAD (HCC);Ischemic cardiomyopathy;AICD (automatic cardioverter/defibrillat or) present;CAD (coronary artery disease) Allergies No Known Allergiesas of this encounter Medications Prescription Sig. Disp. 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 25 Tab 11 07/21/2016 Active ramipril (ALTACE) 2.5 MG Capsule Take 1 Cap by mouth daily. 90 Cap 3 09/13/2017 Active digoxin (LANOXIN) 125 mcg Tablet 1 tablet on Wednesday, , Wednesday 40 Tab 5 09/13/2017 Active furosemide (LASIX) 20 MG Tablet Take 1 Tab by mouth daily. 90 Tab 3 09/13/2017 Active levothyroxine (SYNTHROID) 75 MCG Tablet Take 50 mcg by mouth daily first thing in the morning. (at least 30 min prior to breakfast or other meds) Active clopidogrel (PLAVIX) 75 MG TabletIndications: Permanent atrial fibrillation (HCC) Take 1 Tab by mouth daily. 90 Tab 3 02/14/2018 Active carvedilol (COREG) 25 MG TabletIndications: Heart failure, systolic, due to CAD (HCC) Take 0.5 Tabs by mouth 2 times a day. 90 Tab 3 02/21/2018 Active warfarin sodium (COUMADIN) 5 MG TabletIndications: Atrial fibrillation (HCC) 10 mg F, 5mg all other days 110 Tab 3 03/21/2018 Active rosuvastatin (CRESTOR) 5 MG TabletIndications: Heart failure, systolic, due to CAD (HCC),Ischemic cardiomyopathy,AIC D (automatic cardioverter/defib rillator) present,CAD (coronary artery disease) Take 1 tablet every other day 45 Tab 3 05/02/2018 Active rosuvastatin (CRESTOR) 5 MG TabletIndications: Heart failure, systolic, due to CAD (HCC),Ischemic cardiomyopathy,AIC D (automatic cardioverter/defib rillator) present,CAD (coronary artery disease) Take 1 tablet every three days 45 Tab 3 10/06/2017 05/02/2018 Discontinued as of this encounter Active Problems Problem Noted Date AICD (automatic cardioverter/defibrillat or) present 02/10/2013 Heart failure, systolic, due to CAD (HCC ) 01/06/2013 Ischemic cardiomyopathy 01/06/2013 Atrial fibrillation (HCC) 01/06/2013 CAD (coronary artery disease) 07/25/2012 [place] (myocardial infarction) ([facility]) 012 as of this encounter Immunizations Name Dates [...] Assigned at Date Recorded Not on file as of this encounter Miscellaneous Notes * Telephone Encounter - Wesly Langston MD - 05/02/2018 1:56 PM EDT Signed Prescriptions: Disp Refills rosuvastatin (CRESTOR) 5 MG Tablet 45 Tab 3 Sig: Take 1 tablet every other day Authorizing Provider: WESLY LANGSTON * Telephone Encounter - Haven Jasmine CPhT - 05/02/2018 1:22 PM EDT Formatting of this note may be different from the original. Pt's calling and is requesting the following Rx. She stated he is taking it 1 every other day.I have pended an Rx for approval Pending Prescriptions: Disp Refills rosuvastatin (CRESTOR) 5 MG Tablet 45 Tab 3 Sig: Take 1 tablet every other day Last Office Visit: 03/21/2018 Next Office Visit: 05/19/2018 Scheduled Provider(s): Remote Cardiac [facility] Huang If no future appointments scheduled, and last appointment is greater than a year ago, please schedule patient for a follow-up appointment Last date the medication was ordered: N/A Patient Phone Numbers Labs: Lab Results Component Value Date/Time CREAT 1.3 (H) 01/11/2018 11:41 AM POTASSIUM 4.5 01/11/2018 11:41 AM TSH 2.93 03/31/2018 11:30 AM LDLCALC 68 01/11/2018 11:41 AM ALT <5 (L) 01/11/2018 11:41 AM HGBA1C 5.4 06/30/2016 10:59 AM in this encounter Plan of Treatment Upcoming Encounters Date Type Specialty Care Team Description 05/19/2018 Cardiac Studies Cardiology Huang, [facility] [address] [place] [address] [phone] 05/24/2018 Pharmacy [facility]acy [facility] [address] [place] [address] 08/22/2018 Cardiac Studies Cardiology Huang, [facility] [address] [place] [address] [phone] 11/24/2018 Office Visit Cardiology Wesly Langston MD [address] [place] [address] [phone] Health Maintenance Due Date Last Done Comments PNEUMOCOCCAL ADULT 65 YRS AN D OVER (1 of 2 - PCV13) 1999 *DEPRESSION SCREENING, ANNUA L FOR PTS 18 AND OVER 12/02/2014 *DIG LEVEL FOR MEDICATION MONITORING EVERY 6 MONTHS 03/15/2018 Influenza Vaccine (FLU shot) (#1) 2018 017, 08/08/2012 DIABETES SCREEN EVERY 3 YRS- AGE 45 AND ABOVE 01/11/2021 01/11/2018, 09/21/2017, 11/25/2016, Additional history exists DTaP,Tdap,and Td Vaccines (2 - Tdap) 07/29/2027 07/29/2017 as of this encounter Implants Not on fileas of this encounter Visit Diagnoses Diagnosis Heart failure, systolic, due to CAD (HCC) Unspecified systolic heart failure Ischemic cardiomyopathy Other specified forms of chronic ischemic heart disease AICD (automatic cardioverter /defibrillator) present Automatic implantable cardiac defibrillator in situ CAD (coronary artery disease ) Coronary atherosclerosis of unspecified type of vessel, [place] or graft in this encounter
--- OUTSIDE RECORDS SUMMARY | 2023-09-08 00:56 | External Medical Summary | Summary of Care ---
Author Name Unknown Organization [place] [address] Phone Care Team Providers Care Sales Store Checker Name Role Phone Hank Oshea MD Primary Care Provider [phone] Reason for Visit * Reason Comments Dosage Adjustment In Person (Anticoag Cl inic) Encounter Details Date Type Department Care Team Description 05/24/2018 Pharmacy Pharmacy, [facility] [address] [place] [address] [place] [facility] [address] [place] [address] Paroxysmal atrial fibrillation (HCC)*;ST elevation myocardial infarction (STEMI), unspecified artery (HCC);Anticoagulation management encounter;USP 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 therapy Allergies No Known Allergiesas of this encounter Medications Prescription Sig. Disp. Refills Start Date End Date Status VITAMIN D 2000 UNITS PO TABS one tablet daily Active nitroglycerin (NITROSTAT) 0.4 MG SUBLIndications:Rascon ry artery disease involving [place] coronary artery of [place] heart without angina pectoris,Myocardial infarction involving other [...] other meds) Active clopidogrel (PLAVIX) 75 MG TabletIndications:Perm anent atrial fibrillation (HCC) Take 1 Tab by mouth daily. 90 Tab 3 02/14/2018 Active carvedilol (COREG) 25 MG TabletIndications:Hear t failure, systolic, due to CAD (HCC) Take 0.5 Tabs by mouth 2 times a day. 90 Tab 3 02/21/2018 Active warfarin sodium (COUMADIN) 5 MG TabletIndications:Atri al fibrillation (HCC) 10 mg F, 5mg all other days 110 Tab 3 03/21/2018 Active rosuvastatin (CRESTOR) 5 MG TabletIndications:Hear t failure, systolic, due to CAD (HCC),Ischemic cardiomyopathy,AICD (automatic cardioverter/defibrill ator) present,CAD (coronary artery disease) Take 1 tablet every other day 45 Tab 3 05/02/2018 Active as of this encounter Active Problems Problem Noted Date AICD (automatic cardioverter/defibrillat or) present 02/10/2013 Heart failure, systolic, due to CAD (HCC ) 01/06/2013 Ischemic cardiomyopathy 01/06/2013 Atrial fibrillation (HCC) 01/06/2013 CAD (coronary artery disease) 07/25/2012 [place] (myocardial infarction) (HCC) 012 as of this encounter Immunizations Name [...] Not on file as of this encounter Progress Notes * Anibal Mcfarland RPh - 05/24/2018 11:19 AM EDT Formatting of this note may be different from the original. Medication Therapy Disease Management - Anticoagulation Lucian Larson Jr. is an 82 year old male who presents to clinic for anticoagulation management and education. Current Anticoagulation Regimen: warfarin 10mg F, 5mg all other days (5mg tabs) Anticoagulation Medication Adherence: Patient compliant. Procedure 05/09 - see previous note for dosing Patient-Reported Symptoms: Bruising: no Bleeding: no Miscellaneous: no Interval Health and/or Dietary Status Changes: Medication/Co-morbidity change since last follow-up: hernia repair surgery - decreased activity. Most recent CBC: CBC/DIFF Boris Dt/Tm Resulted Value Status WBC (K/uL) 01/11/18 11:41A 01/11/18 6.48 F RBC (M/uL) 01/11/18 11:41A 01/11/18 4.31* F HGB (g/dL) 01/11/18 11:41A 01/11/18 14.2 F HCT (%) 01/11/18 11:41A 01/11/18 42.0 F MCV (fL) 01/11/18 11:41A 01/11/18 97.4 F MCH (pg) 01/11/18 11:41A 01/11/18 32.9 F MCHC (g/dL) 01/11/18 11:41A 01/11/18 33.8 F RDW (%) 01/11/18 11:41A 01/11/18 13.8 F PLATELET COUNT (K/uL) 01/11/18 11:41A 01/11/18 170 F MPV (fL) 01/11/18 11:41A 01/11/18 9.7 F NEUTS (%) 01/11/18 11:41A 01/11/18 58.4 F LYMPHS (%) 01/11/18 11:41A 01/11/18 27.5 F MONOS (%) 01/11/18 11:41A 01/11/18 11.3* F EOS (%) 01/11/18 11:41A 01/11/18 2.3 F BASOS (%) 01/11/18 11:41A 01/11/18 0.5 F ABS. NEUTS (K/uL) 01/11/18 11:41A 01/11/18 3.79 F ABS. LYMPHS (K/uL) 01/11/18 11:41A 01/11/18 1.78 F ABS. MONOS (K/uL) 01/11/18 11:41A 01/11/18 0.73 F ABS. EOS (K/uL) 01/11/18 11:41A 01/11/18 0.15 F ABS. BASOS (K/uL) 01/11/18 11:41A 01/11/18 0.03 F INR: 2.9 Target range: 2.0-3.0 Recommendations: Continue 10mg F, 5mg all other days (5mg tabs) Follow-up: Patient to repeat PT/INR in 4 week(s). Anibal Caceres, RPh, CDE, CACP Clinical Pharmacist Medication Therapy Disease Management 05/24/2018, 11:19 AM in this encounter Plan of Treatment Upcoming Encounters Date Type Specialty Care Team Description 05/24/2018 Pharmacy [facility] [place] [address] [place] [address] Paroxysmal atrial fibrillation (HCC)*;ST elevation myocardial infarction (STEMI), unspecified artery (HCC);Anticoagulation management encounter;USP 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 therapy 06/21/2018 Pharmacy Pharmacy [place], [facility] [address] [place] [address] 08/22/2018 Cardiac Studies Cardiology Gw, Remote Cardiac Devices [address] [place] [address] [phone] 11/24/2018 Office Visit Cardiology Denis Langston MD [address] [address] [phone] Health Maintenance Due Date Last Done Comments [...] Implants Not on fileas of this encounter Results * INR FINGERSTICK (05/24/2018 11:22 AM) Component Value Ref Range FINGERSTICK INR 2.9 INR THERAPEUTIC RANGE Comment: Therapeutic ranges for non-operative patients: Prophylaxsis/treatment of DVT: (Range:2.0-3.0) Treatment of pulmonary embolism:(Range:2.0-3.0) Prevention of systemic embolism from: -tissue heart valves -acute myocardial infarction -valvular heart disease -atrial fibrillation (Range: 2.0-3.0) Mechanical prosthetic valves: (Range: 2.5-3.5) Specimen Performing Laborator y [facility] [address] [place] [address] in this encounter Visit Diagnoses Diagnosis Paroxysmal atrial fibrillati on (HCC) - Primary Atrial fibrillation ST elevation myocardial infa rction (STEMI), unspecified artery (HCC) Anticoagulation management e ncounter Encounter for therapeutic drug monitoring clinical sciences professor 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 ant icoagulant therapy in this encounter
--- OUTSIDE RECORDS SUMMARY | 2023-09-08 00:56 | External Medical Summary ---
Author Name Unknown Address Unknown Organization R:IT USE ONLY!!! Laboratory Report Ordering Provider Test Date Status JOHNJENNIFER 07/20/2018 11:00:00 Final Observation Date Value Abnormality Reference Status INR in Capillary blood by Coagulation assay 07/20/2018 11:01 2.1 Final Days in therapeutic INR range/Days INR result determined [Ratio] 07/20/2018 11:01 Final Therapeutic ranges for non-o perative patients: Prophylaxsis/treatment of DVT: (Range:2.0-3.0) Treatment of pulmonary embolism:(Range:2.0-3.0) Prevention of systemic embolism from: -tissue heart valves -acute myocardial infarction -valvular heart disease -atrial fibrillation (Range: 2.0-3.0) Mechanical prosthetic valves: (Range: 2.5-3.5) Performing Location IT USE ONLY!!!
--- OUTSIDE RECORDS SUMMARY | 2023-09-08 00:56 | External Medical Summary ---
Author Name Unknown Address Unknown Organization R:IT USE ONLY!!! Laboratory Report Ordering Provider Test Date Status [facility]INA [facility]BSON [facility] 05/24/2018 11:22:00 Final Observation Date Value Abnormality Reference Status INR in Capillary blood by Coagulation assay 05/24/2018 11:23 2.9 Final Days in therapeutic INR range/Days INR result determined [Ratio] 05/24/2018 11:23 Final Therapeutic ranges for non-o perative patients: Prophylaxsis/treatment of DVT: (Range:2.0-3.0) Treatment of pulmonary embolism:(Range:2.0-3.0) Prevention of systemic embolism from: -tissue heart valves -acute myocardial infarction -valvular heart disease -atrial fibrillation (Range: 2.0-3.0) Mechanical prosthetic valves: (Range: 2.5-3.5) Performing Location IT USE ONLY!!!
--- OUTSIDE RECORDS SUMMARY | 2023-09-08 00:56 | External Medical Summary | Summary of Care ---
Author Name Unknown Organization [place] [address] Phone Care Team Providers Care Adjunct Spanish Instructor Name Role Phone Hank Oshea MD Primary Care Provider [phone] Reason for Visit * Reason Comments ADVICE Encounter Details Date Type Department Care Team Description 04/21/2018 Telephone Cardiology, [facility] [address] [facility] [place] [address] Denis Langston MD [address] [facility] [place] [id number] ADVICE Allergies No Known Allergiesas of this encounter Medications Prescription Sig. Disp. Refills Start Date End Date Status VITAMIN D 2000 UNITS PO TABS one tablet daily Active nitroglycerin (NITROSTAT) 0.4 MG SUBLIndications:Rascon ry artery disease involving [place] coronary artery of [place] heart without angina pectoris,Myocardial infarction involving other [...] mouth daily. 90 Tab 3 09/13/2017 Active rosuvastatin (CRESTOR) 5 MG TabletIndications:Hear t failure, systolic, due to CAD (HCC),Ischemic cardiomyopathy,AICD (automatic cardioverter/defibrill ator) present,CAD (coronary artery disease) Take 1 tablet every three days 45 Tab 3 10/06/2017 Active levothyroxine (SYNTHROID) 75 MCG Tablet Take [...] other days 110 Tab 3 03/21/2018 Active as of this encounter Active Problems Problem Noted Date AICD (automatic cardioverter/defibrillat or) present 02/10/2013 Heart failure, systolic, due to CAD (HCC ) 01/06/2013 Ischemic cardiomyopathy 01/06/2013 Atrial fibrillation (HCC) 01/06/2013 CAD (coronary artery disease) 07/25/2012 [place] (myocardial infarction) ([facility]) 012 as [...] Miscellaneous Notes * Telephone Encounter - Luiza Nguyen [facility] - 04/22/2018 3:34 PM EDT Thank you - will communicate this to patient. Luiza Masters, Pharm D, BCACP Clinical Pharmacist Medication Therapy Management Clinic 04/22/2018, 3:34 PM * Telephone Encounter - Denis Langston MD - 04/22/2018 3:27 PM EDT Would not recommend Lovenox bridge. Stop plavix 5 days prior to surgery * Telephone Encounter - Luiza Nguyen [facility] - 04/22/2018 12:06 PM EDT Spoke to nurse at Dr. Hua's office to clarify their orders - she states Dr. Hua wants plavix heldx 1 week and warfarin held x [address] Langston - just want to confirm you are okay with patient holding coumadin without lovenox. CHADSVAsc = 4 (HF, age > 75, vasc disease) with [place] in 1994. Thank you Luiza Masters, Pharm D, BCACP Clinical Pharmacist Medication Therapy Management Clinic 04/22/2018, 12:08 PM * Telephone Encounter - Denis Langston MD - 04/21/2018 3:18 PM EDT Patient at elevated risk for surgery. Okay to hold Plavix for 5 days prior to procedure. What are there plans for warfarin? * Telephone Encounter - Rustam Le TECH - 04/21/2018 2:11 PM EDT Patient having hernia repair with [facility] they would like him to stop Plavix for 1 week before surgeryon May 09. Please advise and call Dr.Robert Hua's office at [phone] in this encounter Plan of Treatment Upcoming Encounters Date Type Specialty Care Team Description 04/22/2018 Pharmacy Pharmacy , [facility] [address] [place] [address] [phone] Myocardial infarction, unspecified [place] type, unspecified artery (HCC)*;Atrial fibrillation, unspecified type (HCC) 05/03/2018 Pharmacy Pharmacy [facility] [address] [place] [address] 05/19/2018 Cardiac Studies Cardiology Gw, [facility] Card[facility] [address] [facility] [place] [address] [phone] 08/22/2018 Cardiac Studies Cardiology Gw, [facility] Card[facility] [address] [place] [address] [phone] 11/24/2018 Office Visit Cardiology Denis Langston MD [address] [place] [address] [phone] Health Maintenance Due Date Last Done Comments PNEUMOCOCCAL ADULT 65 YRS AN D OVER ( 2 - PCV13) 1999 *DEPRESSION SCREENING, KRYSTYNA Yoder FOR PTS 18 AND OVER 12/02/2014 *DIG LEVEL FOR MEDICATION MONITORING EVERY 6 MONTHS 03/15/2018 DIABETES SCREEN EVERY 3 YRS- AGE 45 AND ABOVE 01/11/2021 01/11/2018, 09/21/2017, 11/25/2016, Additional history exists DTaP,Tdap,and Td Vaccines (2 - Tdap) 07/29/2027 07/29/2017 Influenza Vaccine (FLU shot) Completed 07/29/2017, 08/08/2012 as of this encounter Implants Not on fileas of this encounter
--- OUTSIDE RECORDS SUMMARY | 2023-09-08 00:56 | External Medical Summary | Summary of Care ---
Author Name Unknown Organization [place] [address] Phone Care Team Providers Care Geological Drafter Name Role Phone Hank Oshea MD Primary Care Provider [phone] Reason for Visit * Reason Comments ADVICE Encounter Details Date Type Department Care Team Description 04/21/2018 Telephone Cardiology, [facility] [address] [facility] [place] [address] Denis Langston MD 132 [facility] [place] [id number] ADVICE Allergies No Known Allergiesas of this encounter Medications Prescription Sig. Disp. Refills Start Date End Date Status VITAMIN D 2000 UNITS PO TABS one tablet daily Active nitroglycerin (NITROSTAT) 0.4 MG SUBLIndications:Rascon ry artery disease involving [place] coronary artery of [place] heart without angina pectoris,Myocardial infarction involving other [...] (HCC) 01/06/2013 CAD (coronary artery disease) 07/25/2012 [place] (myocardial infarction) ([facility]) 012 as of this encounter Immunizations Name [...] encounter Miscellaneous Notes * Telephone Encounter - Carmen Felix LPN - 04/27/2018 11:24 AM EDT Information faxed to [facility] today * Telephone Encounter - Yina Elizondo RN - 04/25/2018 10:47 AM EDT Detailed message left of secure voicemail at Dr. Hua's office for Uzma regarding below recommendations. * Telephone Encounter - Luiza Nguyen [facility] - 04/22/2018 3:34 PM EDT Thank you - will communicate this to patient. Luiza Krahe Guerrero, Pharm D, BCACP Clinical Pharmacist Medication Therapy Management Clinic 04/22/2018, 3:34 PM * Telephone Encounter - Denis Langston MD - 04/22/2018 3:27 PM EDT Would not recommend Lovenox bridge. Stop plavix 5 days prior to surgery * Telephone Encounter - Luiza Nguyen [place], [facility] - 04/22/2018 12:06 PM EDT Spoke to nurse at Dr. Hua's office to clarify their orders - she states Dr. Hua wants plavix heldx 1 week and warfarin held x [address] Langston - just want to confirm you are okay with patient holding coumadin without lovenox. CHADSVAsc = 4 (HF, age > 75, vasc disease) with [place] in 1994. Thank you Luiza Masters, Pharm [...] advise and call Dr.Robert Hua's office at [phone] in this encounter Plan of Treatment Upcoming Encounters Date Type Specialty Care Team Description 05/19/2018 Cardiac Studies Cardiology , [facility] [address] [place] [address] [phone] 05/24/2018 Pharmacy Pharmacy [place] [address] [place] [address] 08/22/2018 Cardiac Studies Cardiology [place], [facility] [address] [place] [address] [phone] 11/24/2018 Office Visit Cardiology Denis Langston MD [address] [place] [address] [phone] Health Maintenance Due Date Last Done Comments [...]
--- OUTSIDE RECORDS SUMMARY | 2023-09-08 00:56 | External Medical Summary ---
Author Name Unknown Address [facility] [place] [address] Phone Organization K01:[facility] [address] [id number] Laboratory Report Ordering Provider Test Date Status Dayo Mckinney 07/20/2018 11:03:00 Final Observation Date Value Abnormality Reference Status TSH 07/20/2018 18:51 3.25 0.27-4.2 Fin al Performing Location [address] [address]
--- OUTSIDE RECORDS SUMMARY | 2023-09-08 00:56 | External Medical Summary | Summary of Care ---
Author Name Unknown Organization [place] [address] Phone Care Team Providers Care Sweater Designer Name Role Phone Hank Oshea MD Primary Care Provider [phone] Reason for Visit * Reason Comments ADVICE Encounter Details Date Type Department Care Team Description 04/21/2018 Telephone Cardiology, [facility] [address] [facility] [place] [address] Denis Langston MD 132 [facility] [place] [id number] ADVICE Allergies No Known Allergiesas of this encounter Medications Prescription Sig. Disp. Refills Start Date End Date Status VITAMIN D 2000 UNITS PO TABS one tablet daily Active nitroglycerin (NITROSTAT) 0.4 MG SUBLIndications:Rascon ry artery disease involving [place] coronary artery of [place] heart without angina pectoris,Myocardial infarction involving other [...] (HCC) 01/06/2013 CAD (coronary artery disease) 07/25/2012 [place] (myocardial infarction) ([facility]) 012 as of this encounter Immunizations [...] Miscellaneous Notes * Telephone Encounter - Luiza Nguyen, [facility] - 04/22/2018 12:06 PM EDT Spoke to nurse at Dr. Hua's office to clarify their orders - she states Dr. Hua wants plavix heldx 1 week and warfarin held x [address] Langston - just want to confirm you are okay with patient holding coumadin without lovenox. CHADSVAsc = 4 (HF, age > 75, vasc disease) with [place] in 1994. Thank you Luiza Masters, Pharm D, BCACP Clinical Pharmacist Medication Therapy Management Clinic 04/22/2018, 12:08 PM * Telephone Encounter - Denis Langston MD - 04/21/2018 3:18 PM EDT Patient at elevated risk for surgery. Okay to hold Plavix for 5 days prior to procedure. What are there plans for warfarin? * Telephone Encounter - Rustam Le GHULAM - 04/21/2018 2:11 PM EDT Patient having hernia repair with [facility] they would like him to stop Plavix for 1 week before surgeryon May 09. Please advise and call Dr.Robert Hua's office at [phone] in this encounter Plan of Treatment Upcoming Encounters Date Type Specialty Care Team Description 04/22/2018 Pharmacy Pharmacy [facility] [address] [place] [address] [phone] Myocardial infarction, unspecified [place] type, unspecified artery (HCC)*;Atrial fibrillation, unspecified type (HCC) 05/03/2018 Pharmacy [facility]acy [facility] Sc[facility] [address] [place] [address] 05/19/2018 Cardiac Studies Cardiology G[facility] [address] [phone] 08/22/2018 Cardiac Studies Cardiology Gw, [facility] [address] [facility] [place] [address] [phone] 11/24/2018 Office Visit Cardiology Denis Langston MD [address] [facility] [place] [address] [phone] Health Maintenance Due Date Last Done Comments [...]
--- OUTSIDE RECORDS SUMMARY | 2023-09-08 00:56 | External Medical Summary | Summary of Care ---
Author Name Unknown Organization [place] [address] Phone Care Team Providers Care Instrument Installer Name Role Phone Hank Oshea MD Primary Care Provider [phone] Reason for Visit * Reason Comments ADVICE Encounter Details Date Type Department Care Team Description 04/21/2018 Telephone Cardiology, [facility] 132 [facility] [place] [address] Denis Langston MD 132 [facility] [place] [id number] ADVICE Allergies No Known Allergiesas of this encounter Medications Prescription Sig. Disp. Refills Start Date End Date Status VITAMIN D 2000 UNITS PO TABS one tablet daily Active nitroglycerin (NITROSTAT) 0.4 MG SUBLIndications:Rascon ry artery disease involving [place] coronary artery of [place] heart without angina pectoris,Myocardial infarction involving other [...] (HCC) 01/06/2013 CAD (coronary artery disease) 07/25/2012 [place] (myocardial infarction) ([facility]) 012 as of this encounter Immunizations Name [...] recommendations. * Telephone Encounter - Luiza Nguyen [facility] - 04/22/2018 3:34 PM EDT Thank you - will communicate this to patient. Luiza Masters, Pharm D, BCACP Clinical Pharmacist Medication Therapy Management Clinic 04/22/2018, 3:34 PM * Telephone Encounter - Denis Langston MD - 04/22/2018 3:27 PM EDT Would not recommend Lovenox bridge. Stop plavix 5 days prior to surgery * Telephone Encounter - Luiza Nguyen [facility] - 04/22/2018 12:06 PM EDT Spoke to nurse at Dr. Hua's office to clarify their orders - she states Dr. Hua wants plavix heldx 1 week and warfarin held x [address] Langston - just want to confirm you are okay with patient holding coumadin without lovenox. CHADSVAsc = 4 (HF, age > 75, vasc disease) with [place] in 1994. Thank you Luiza Masters, Pharm [...] advise and call Dr.Robert Hua's office at [phone] in this encounter Plan of Treatment Upcoming Encounters Date Type Specialty Care Team Description 05/19/2018 Cardiac Studies Cardiology , [facility] [address] [place] [address] [phone] 05/24/2018 Pharmacy [facility]acy [facility] [address] [place] [place] [address] 08/22/2018 Cardiac Studies Cardiology , [facility] Card[facility] [address] [place] [address] [phone] 11/24/2018 Office Visit Cardiology Denis Langston MD [address] [place] [address] [phone] Health Maintenance Due Date Last Done Comments [...]
--- OUTSIDE RECORDS SUMMARY | 2023-09-08 00:56 | External Medical Summary | Summary of Care ---
Author Name Unknown Organization [place] [address] Care Team Providers Care Designer Writer Name Role Phone Hank Oshea MD Primary Care Provider [phone] Reason for Visit * Reason Comments Dosage Adjustment In Person (Anticoag Cl inic) Encounter Details Date Type Department Care Team Description 09/12/2018 Pharmacy Pharmacy, [facility] [address] [facility] [place] [address] [place] [facility] [address] [place] [address] Myocardial infarction, unspecified MO type, unspecified artery (HCC)*; Atrial fibrillation, unspecified type (HCC); Anticoagulation management encounter; retirement 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 therapy Allergies No Known Allergiesas of this encounter Medications Medication Sig Dispensed Refills Start Date End Date Status VITAMIN D 2000 UNITS PO TABS one tablet daily 0 Active nitroglycerin (NITROSTAT) 0.4 MG SUBLIndications:Rascon ry artery disease involving [place] coronary artery [...] 12.5 MG TabletIndications:Salo nary artery disease involving [place] coronary artery of [place] heart without angina pectoris Take 1 Tab by mouth 2 times a day. with food 180 Tab 3 06/08/2018 Active as of this encounter Active Problems Problem Noted Date AICD (automatic cardioverter/defibrillat or) present 02/10/2013 Heart failure, systolic, due to CAD 06/2013 Ischemic cardiomyopathy 01/06/2013 Atrial fibrillation 01/06/2013 CAD (coronary artery disease) 07/25/2012 MO (myocardial infarction) 07/25/2012 as of this encounter [...] of this encounter Progress Notes * Luiza Nguyen, [facility] - 09/12/2018 11:22 AM EST Medication Therapy Disease Management [...] goal goal, necessitating closer follow-up today INR: 2.9 Target range: 2.0-3.0 Recommendations: Continue 10mg F, 5mg all other days (5mg tabs) Follow-up: Patient to repeat PT/INR in 4 week(s) Luiza Paz [facility] Clinical Pharmacist 09/12/2018, 11:23 AM in this encounter Plan of Treatment Upcoming Encounters Date Type Specialty Care Team Description 09/12/2018 Pharmacy Pharmacy [place], [facility] [address] [facility] [address] Myocardial infarction, unspecified MO type, unspecified artery (HCC)*; Atrial fibrillation, unspecified type (HCC); Anticoagulation management encounter; 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 10/11/2018 Pharmacy Pharmacy [place], [facility] 200 [facility] [place] [address] 11/24/2018 Office Visit Cardiology [facility] [address] Scheduled Tests Name Priority Associated Diagnoses Order S [facility] PTINR Routine Atrial fibrillation, unspecified type (HCC) Myocardial infarction, unspecified [place] type, unspecified artery (HCC) Anticoagulation management encounter retirement 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 therapy Every 2 to [facility] Occurrences starting 09/12/2018 until 09/12/2019 INR FINGERSTICK STAT Atrial fibrillation, unspecified type (HCC) Myocardial infarction, unspecified [place] type, unspecified artery (HCC) Anticoagulation management encounter retirement 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 therapy Every 2 Weeks for 26 Occurrences starting 09/12/2018 until 09/12/2019, 1 completed Health Maintenance Due Date Last Done Comments PNEUMOCOCCAL ADULT 65 YRS AN D OVER (1 of 2 - PCV13) 1999 *DEPRESSION SCREENING, MENDEZUA Beba FOR PTS 18 AND OVER 12/02/2014 *DIG [...] Date/Time Associated Diagnosis Comments INR FINGERSTICK STAT 09/12/2018 11:26 AM EST Atrial fibrillation, unspecified type (HCC) Myocardial infarction, unspecified [place] type, unspecified artery (HCC) Anticoagulation management encounter 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 in this encounter Results * INR FINGERSTICK (09/12/2018 11:26 AM EST) FINGERSTICK INR 2.9 INR [facility] THERAPEUTIC RANGE Comment: Therapeutic ranges for non-operative patients: Prophylaxsis/treatment of DVT: (Range:2.0-3.0) Treatment of pulmonary embolism:(Range:2.0-3.0) Prevention of systemic embolism from: -tissue heart valves -acute myocardial infarction -valvular heart disease -atrial fibrillation (Range: 2.0-3.0) Mechanical prosthetic valves: (Range: 2.5-3.5) [facility] Performing Organization Address City/State/Zipcod e Phone Number [facility], [address] [facility] [place] [address] in this encounter Visit Diagnoses Diagnosis Myocardial infarction, unspecified [place] type, unspecified artery (HCC)- Primary Atrial fibrillation, unspecified type (HCC) Anticoagulation management encounter Encounter for therapeutic drug monitoring 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 For more information, please contact: [place] [address]
--- OUTSIDE RECORDS SUMMARY | 2023-09-08 00:56 | External Medical Summary ---
Author Name Unknown Address Unknown Organization R:IT USE ONLY!!! Laboratory Report Ordering Provider Test Date Status FIDELINA HOBSON [facility] 09/12/2018 11:26:00 Final Observation Date Value Abnormality Reference Status INR BldC 09/12/2018 11:27 2.9 Fin al Ds INR range/Ds INR det Patient-Rto 09/12/2018 11:27 Final Therapeutic ranges for non-o perative patients: Prophylaxsis/treatment of DVT: (Range:2.0-3.0) Treatment of pulmonary embolism:(Range:2.0-3.0) Prevention of systemic embolism from: -tissue heart valves -acute myocardial infarction -valvular heart disease -atrial fibrillation (Range: 2.0-3.0) Mechanical prosthetic valves: (Range: 2.5-3.5) Performing Location IT USE ONLY!!!
--- OUTSIDE RECORDS SUMMARY | 2023-09-08 00:56 | External Medical Summary | Summary of Care ---
Author Name Unknown Organization [place] [address] Phone Care Team Providers Care Hide Cleaner Name Role Phone Hank Oshea MD Primary Care Provider [phone] Reason for Visit * Reason Comments Dosage Adjustment In Person (Anticoag Cl inic) Encounter Details Date Type Department Care Team Description 06/21/2018 Pharmacy Pharmacy, [facility] 200 [facility] [place] [address] [facility] [address] [place] [address] Paroxysmal atrial fibrillation (HCC)*;ST elevation myocardial infarction (STEMI), unspecified artery (HCC);Anticoagulation management encounter;senior care 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 therapy Allergies No Known Allergiesas of this encounter Medications Prescription Sig. Disp. Refills Start Date End Date Status VITAMIN D 2000 UNITS PO TABS one tablet daily Active nitroglycerin (NITROSTAT) 0.4 MG SUBLIndications:Rascon ry artery disease involving [place] coronary artery of [place] heart without angina pectoris,Myocardial infarction involving other [...] 12.5 MG TabletIndications:Salo nary artery disease involving [place] coronary artery of [place] heart without angina pectoris Take 1 Tab by mouth 2 times a day. with food 180 Tab 3 06/08/2018 Active as of this encounter Active Problems Problem Noted Date AICD (automatic cardioverter/defibrillat or) present 02/10/2013 Heart failure, systolic, due to CAD (HCC ) 01/06/2013 Ischemic cardiomyopathy 01/06/2013 Atrial fibrillation (HCC) 01/06/2013 CAD (coronary artery disease) 07/25/2012 [place] (myocardial infarction) ([facility]) 012 as of this encounter Immunizations Name [...] Progress Notes * Anibal Mcfarland RP - 06/21/2018 11:18 AM EDT Formatting of this note may [...] vitamin K intake decreased since last follow-up decreased activity Most recent CBC: CBC/DIFF Boris Dt/Tm Resulted [...] (K/uL) 01/11/18 11:41A 01/11/18 0.03 F INR: 4.7 Target range: 2.0-3.0 Recommendations: Skip today's dose then resume the current dose of warfarin 10mg F, 5mg all other days (5mg tabs) Follow-up: Patient to repeat PT/INR in 3 week(s). Anibal Raymundo Nicki, RPh, CDE, CACP Clinical Pharmacist Medication Therapy Disease Management 06/21/2018, 11:18 AM in this encounter Plan of Treatment Upcoming Encounters Date Type Specialty Care Team Description 07/13/2018 Pharmacy Pharmacy [facility] [address] [place] [address] 08/22/2018 Cardiac Studies Cardiology Gw, Remote Cardiac Devices [address] [place] [address] [phone] 11/24/2018 Office Visit Cardiology Denis Langston MD [address] [place] [address] [phone] Health Maintenance Due Date Last Done Comments [...] of this encounter Results * INR FINGERSTICK (06/21/2018 11:21 AM) Component Value Ref Range FINGERSTICK INR 4.7 INR THERAPEUTIC RANGE Comment: Therapeutic ranges for non-operative patients: Prophylaxsis/treatment of DVT: (Range:2.0-3.0) Treatment of pulmonary embolism:(Range:2.0-3.0) Prevention of systemic embolism from: -tissue heart valves -acute myocardial infarction -valvular heart disease -atrial fibrillation (Range: 2.0-3.0) Mechanical prosthetic valves: (Range: 2.5-3.5) Specimen Performing Laborator y 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
--- OUTSIDE RECORDS SUMMARY | 2023-09-08 00:56 | External Medical Summary | Summary of Care ---
Author Name Unknown Organization [place] [address] Phone Care Team Providers Care Senior Controls Analyst Name Role Phone Hank Oshea MD Primary Care Provider [phone] Reason for Visit * Reason Comments Dosage Adjustment In Person (Anticoag Cl inic) Encounter Details Date Type Department Care Team Description 08/16/2018 Pharmacy Pharmacy, [facility] 200 [place] [address] [facility] [address] [place] [address] Paroxysmal atrial fibrillation (HCC)*;ST elevation myocardial infarction (STEMI), unspecified artery (HCC);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 Disp. Refills Start Date End Date Status VITAMIN D 2000 UNITS PO TABS one tablet daily Active nitroglycerin (NITROSTAT) 0.4 MG SUBLIndications:Rascon ry artery disease involving [place] coronary artery of [place] heart without angina pectoris,Myocardial infarction involving [...] 12.5 MG TabletIndications:Salo nary artery disease involving [place] coronary artery of [place] heart without angina pectoris Take 1 Tab by mouth 2 times a day. with food 180 Tab 3 06/08/2018 Active as of this encounter Active Problems Problem Noted Date AICD (automatic cardioverter/defibrillat or) present 02/10/2013 Heart failure, systolic, due to CAD (HCC ) 01/06/2013 Ischemic cardiomyopathy 01/06/2013 Atrial fibrillation (HCC) 01/06/2013 CAD (coronary artery disease) 07/25/2012 NM (myocardial infarction) ([facility]) 012 as of this encounter [...] Progress Notes * Anibal Mcfarland RP - 08/16/2018 11:28 AM EDT Formatting of this note may [...] vitamin K intake decreased since last follow-up . His told him he needed to eat more greens. INR: 3.9 Target range: 2.0-3.0 Recommendations: Skip today's dose then resume the current dose of warfarin 10mg F, 5mg all other days (5mg tabs) Follow-up: Patient to repeat PT/INR in 4 week(s). Anibal Caceres, RPh, CDE, CACP Clinical Pharmacist Medication Therapy Disease Management 08/16/2018, 11:28 AM in this encounter Plan of Treatment Upcoming Encounters Date Type Specialty Care Team Description 08/22/2018 Cardiac Studies Cardiology Gw, Remote Cardiac Devices [address] [place] [address] [phone] 09/12/2018 Pharmacy Pharmacy [place] Sc[facility] [address] [facility] [address] 11/24/2018 Office Visit Cardiology Denis Langston MD [address] [place] [address] [phone] Health Maintenance Due Date Last Done Comments PNEUMOCOCCAL ADULT 65 YRS AN D OVER (1 of 2 - PCV13) 1999 *DEPRESSION SCREENINGKRYSTYNA FOR PTS 18 AND OVER 12/02/2014 *DIG LEVEL FOR MEDICATION MONITORING EVERY 6 MONTHS 03/15/2018 Influenza Vaccine (FLU shot) (#1) 2018 017, 08/08/2012 DIABETES SCREEN EVERY 3 YRS- AGE 45 AND ABOVE 01/11/2021 01/11/2018, 09/21/2017, 11/25/2016, Additional history exists DTaP,Tdap,and Td Vaccines (2 - Tdap) 07/29/2027 07/29/2017 as of this encounter Implants Not on fileas of this encounter Results * INR FINGERSTICK (08/16/2018 11:30 AM) Component Value Ref Range FINGERSTICK INR 3.9 INR THERAPEUTIC RANGE Comment: Therapeutic ranges for non-operative patients: Prophylaxsis/treatment of DVT: (Range:2.0-3.0) Treatment of pulmonary embolism:(Range:2.0-3.0) Prevention of systemic embolism from: -tissue heart valves -acute myocardial infarction -valvular heart disease -atrial fibrillation (Range: 2.0-3.0) Mechanical prosthetic valves: (Range: 2.5-3.5) Specimen Performing Laborator y [facility] [address] [place] [facility] [place] [place] [address] in this encounter Visit Diagnoses Diagnosis Paroxysmal atrial fibrillati on (HCC) - Primary Atrial fibrillation ST elevation myocardial infa rction (STEMI), unspecified artery (HCC) Anticoagulation management e ncounter Encounter for therapeutic drug monitoring 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
--- OUTSIDE RECORDS SUMMARY | 2023-09-08 00:56 | External Medical Summary ---
Author Name Unknown Address Unknown Organization R:IT USE ONLY!!! Laboratory Report Ordering Provider Test Date Status FIDELINA HOBSON [facility] 08/16/2018 11:30:00 Final Observation Date Value Abnormality Reference Status INR in Capillary blood by Coagulation assay 08/16/2018 11:32 3.9 Final Days in therapeutic INR range/Days INR result determined [Ratio] 08/16/2018 11:32 Final Therapeutic ranges for non-o perative patients: Prophylaxsis/treatment of DVT: (Range:2.0-3.0) Treatment of pulmonary embolism:(Range:2.0-3.0) Prevention of systemic embolism from: -tissue heart valves -acute myocardial infarction -valvular heart disease -atrial fibrillation (Range: 2.0-3.0) Mechanical prosthetic valves: (Range: 2.5-3.5) Performing Location IT USE ONLY!!!
--- OUTSIDE RECORDS SUMMARY | 2023-09-08 00:56 | External Medical Summary | Summary of Care ---
Author Name Unknown Organization [place] [address] Phone Care Team Providers Care Roving Teller Name Role Phone Hank Oshea MD Primary Care Provider Reason for Visit * Reason Comments Dosage Adjustment In Person (Anticoag Cl inic) Encounter Details Date Type Department Care Team Description 07/20/2018 Pharmacy Pharmacy, [address] [place] [address] [facility] [address] [place] [address] Myocardial infarction involving other coronary artery, unspecified [place] type (HCC)*;Atrial fibrillation, unspecified type (HCC);Paroxysmal atrial fibrillation (HCC);ST elevation myocardial infarction (STEMI), unspecified artery (HCC);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 - 07/20/2018 10:56 AM EDT Formatting of this note may [...] above goal goal, necessitating closer follow-up today Medication/Co-morbidity change since last follow-up: patient was recently in the hospital INR: 2.1 Target range: 2.0-3.0 Recommendations: Continue 10mg F, 5mg all other days (5mg tabs) Follow-up: Patient to repeat PT/INR in 4 week(s). Luiza Paz 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 08/16/2018 Pharmacy Pharmacy [place], [facility] Scenery [address] [facility] [place] [address] 08/22/2018 Cardiac Studies Cardiology Gw, Remote Cardiac Devices [address] [place] [address] [phone] 11/24/2018 Office Visit Cardiology Denis Langston MD [address] [place] [address] [phone] Pending Results Name Priority Associated Diagnoses Date/Ti me TSH Routine 07/20/2018 11:0 3 AM EDT Health Maintenance Due Date Last Done Comments Zoster Vaccines HMT (1 of 2) 1985 PNEUMOCOCCAL ADULT 65 YRS AN D OVER [...] fileas of this encounter Visit Diagnoses Diagnosis Myocardial infarction involv ing other coronary artery, unspecified [place] type (HCC) - Primary Atrial fibrillation, unspeci fied type (HCC) Paroxysmal atrial fibrillati on (HCC) Atrial fibrillation ST elevation myocardial infa rction (STEMI), unspecified artery (HCC) Anticoagulation management e ncounter Encounter for therapeutic drug monitoring [facility] 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 ant icoagulant therapy in this encounter
--- OUTSIDE RECORDS SUMMARY | 2023-09-08 00:56 | External Medical Summary | Summary of Care ---
Author Name Unknown Organization [place] [address] Phone Care Team Providers Care Performance Improvement Manager Name Role Phone Hank Oshea MD Primary Care Provider [phone] Reason for Visit * Reason Comments Defibrillator Clinic Encounter Details Date Type Department Care Team Description 08/22/2018 Cardiac Studies Cardiology, [facility] [address] [facility] [place] [address] , Remote Cardiac Devices [address] [facility] [place] [address] [phone] Ischemic cardiomyopathy*;Atria l fibrillation (HCC);AICD (automatic cardioverter/defibril lator) present Allergies No Known Allergiesas of this encounter Medications Prescription Sig. Disp. Refills Start Date End Date Status VITAMIN D 2000 UNITS PO TABS one tablet daily Active nitroglycerin (NITROSTAT) 0.4 MG SUBLIndications:Rascon ry artery disease involving [place] coronary artery of [place] heart without angina pectoris,Myocardial infarction involving other [...] 12.5 MG TabletIndications:Salo nary artery disease involving [place] coronary artery of [place] heart without angina pectoris Take 1 Tab by mouth 2 times a day. with food 180 Tab 3 06/08/2018 Active as of this encounter Active Problems Problem Noted Date AICD (automatic cardioverter/defibrillat or) present 02/10/2013 Heart failure, systolic, due to CAD (HCC ) 01/06/2013 Ischemic cardiomyopathy 01/06/2013 Atrial fibrillation (HCC) 01/06/2013 CAD (coronary artery disease) 07/25/2012 NM (myocardial infarction) ([facility]) 012 as of this encounter Immunizations [...] Progress Notes * Sosa Cotter LPN - 08/22/2018 7:32 AM EDT REMOTE MONITORING TRANSMISSION - DEFIBRILLATOR -- 08/22/2018 TYPE OF VISIT: This is a scheduled remote monitoring transmission. INDICATION: I25.5 Ischemic cardiomyopathy (primary encounter diagnosis) I48.91 Atrial fibrillation (HCC) Z95.810 AICD (automatic cardioverter/defibrillator) present IMPLANTING PHYSICIAN: Dr. Gonzalez IMPLANT/DEVICE HISTORY: February 02, 2013 CURRENT SYSTEM: ICD: Medtronic, model - Eric II VR [id number] SN: [id number] RV Lead: Medtronic, Model - [id number] SN: [id number] Implant: 02-02-2013 Abandoned leads: none ALERTS/ADVISORIES: none PATIENT EVALUATION: Presenting rhythm : Normal sinus rhythm with intact AV node function. DEVICE EVALUATION: R V Auto threshold: --- volts at --- msec Sensin.1 mV Pacing impedance: 551 ohms Percentage paced 0.3 % HVLI: 60 ohms Battery: 3.00 volts PANCHO: 2.63 volts Charge time: 9.7 [...] for 3 months. Nurse: Sosa Cotter LPN ANESTHESIOLOGY MEDICAL DOCTOR: This patient was interrogated remotely via the Heart Rhythm Device clinic by the device clinic nurse. The device function was found to be normal. No changes were made to the programmed parameters. I have personally reviewed the results of the device evaluation and I agree with the nurse's finding, conclusions and disposition. Denis Langston MD in this encounter Plan of Treatment Upcoming Encounters Date Type Specialty Care Team Description 09/12/2018 Pharmacy [facility]acy [facility] [address] [place] [address] 11/24/2018 Office Visit Cardiology [facility] [address] [facility] [address] [phone] Scheduled Tests Name Priority Associated Diagnoses Order S chedule DEFIBRILLATOR REMOTE INTERROGATION EVAL/INTERP,TO 90D Routine Ischemic cardiomyopathy Atrial fibrillation (HCC) AICD (automatic cardioverter/defibrillator) present Ordered: 08/22/2018 PACER/ICD REMOTE DATA CAPTURE/TECH REVIEW,90D Routine Ischemic cardiomyopathy Atrial fibrillation (HCC) AICD (automatic cardioverter/defibrillator) present Ordered: 08/22/2018 Health Maintenance Due Date Last Done Comments [...] fileas of this encounter Visit Diagnoses Diagnosis Ischemic cardiomyopathy - Pr imary Other specified forms of chronic ischemic heart disease Atrial fibrillation (HCC) Atrial fibrillation AICD (automatic cardioverter /defibrillator) present Automatic implantable cardiac defibrillator in situ in this encounter
--- OUTSIDE RECORDS SUMMARY | 2023-09-08 00:56 | External Medical Summary ---
Author Name Unknown Address Unknown Organization R:IT USE ONLY!!! Laboratory Report Ordering Provider Test Date Status FIDELINA HOBSON [facility] 06/21/2018 11:21:00 Final Observation Date Value Abnormality Reference Status INR in Capillary blood by Coagulation assay 06/21/2018 12:01 4.7 Final Days in therapeutic INR range/Days INR result determined [Ratio] 06/21/2018 12:01 Final Therapeutic ranges for non-o perative patients: Prophylaxsis/treatment of DVT: (Range:2.0-3.0) Treatment of pulmonary embolism:(Range:2.0-3.0) Prevention of systemic embolism from: -tissue heart valves -acute myocardial infarction -valvular heart disease -atrial fibrillation (Range: 2.0-3.0) Mechanical prosthetic valves: (Range: 2.5-3.5) Performing Location IT USE ONLY!!!
--- OUTSIDE RECORDS SUMMARY | 2023-09-08 00:56 | External Medical Summary ---
Author Name Unknown Address [address] [place] [address] Phone Organization K09:[facility] [address] [place] [address] Laboratory Report Ordering Provider Test Date Status DOV JORGE 07/22/2018 13:41:00 Final Observation Date Value Abnormality Reference Status WBC, Total 07/22/2018 13:49 6.68 4.00-10.80 F inal RBC 07/22/2018 13:49 3.89 Below low normal 4.50-5 .25 Final Hemoglobin 07/22/2018 13:49 12.8 Below low normal 14.0- 16.8 Final HCT 07/22/2018 13:49 37.5 Below low normal 40.0-4 8.4 Final MCV 07/22/2018 13:49 96.4 82.0-99.5 Fin al MCH 07/22/2018 13:49 32.9 27.0-34.0 Fin al MCHC 07/22/2018 13:49 34.1 32.0-36.0 Fin al RDW 07/22/2018 13:49 14.1 11.5-15.5 Fin al Platelets 07/22/2018 13:49 309 140-400 Fin al MPV 07/22/2018 13:49 9.3 6.6-11.1 Fin al Segs 07/22/2018 13:49 60.7 40-75 Fin al Lymphs % 07/22/2018 13:49 28.3 18-42 Fin al Monos 07/22/2018 13:49 7.8 1-11 Fin al Eosinophils 07/22/2018 13:49 2.8 0-6 F inal Basos 07/22/2018 13:49 0.4 0-2 Fin al Absolute Segs 07/22/2018 13:49 4.05 1.8-7.7 Final Lymphs, absolute 07/22/2018 13:49 1.89 1.0-4. 8 Final Monos, Abs 07/22/2018 13:49 0.52 0.0-1.1 Fi nal Steve, Abs 07/22/2018 13:49 0.19 0.0-0.7 Fin juanpablo Cavazos, Abs 07/22/2018 13:49 0.03 0.0-0.2 Fi nal Performing Location [facility] [address] [place] [address]
--- OUTSIDE RECORDS SUMMARY | 2023-09-08 00:56 | External Medical Summary | Summary of Care ---
Author Name Unknown Organization [place] [address] Phone Care Team Providers Care Qualitative Field Coordinator Name Role Phone Hank Oshea MD Primary Care Provider [phone] Reason for Visit * Reason Comments MEDICATION QUESTION Encounter Details Date Type Department Care Team Description 06/08/2018 Telephone Cardiology, [facility] [address] [facility] [place] [address] Denis Langston MD 132 [place] [address] MEDICATION QUESTION Allergies No Known Allergiesas of this encounter Medications Prescription Sig. Disp. Refills Start Date End Date Status VITAMIN D 2000 UNITS PO TABS one tablet daily Active nitroglycerin (NITROSTAT) 0.4 MG SUBLIndications:Co ronary artery disease involving [place] coronary artery of [place] heart without angina pectoris,Myocardia l infarction involving [...] 12.5 MG TabletIndications: Coronary artery disease involving [place] coronary artery of [place] heart without angina pectoris Take 1 Tab by mouth 2 times a day. with food 180 Tab 3 06/08/2018 Active carvedilol (COREG) 25 MG TabletIndications: Heart failure, systolic, due to CAD (HCC) Take 0.5 Tabs by mouth 2 times a day. 90 Tab 3 02/21/2018 06/08/2018 Discontinued as of this encounter Active Problems Problem Noted Date AICD (automatic cardioverter/defibrillat or) present 02/10/2013 Heart failure, systolic, due to CAD (HCC ) 01/06/2013 Ischemic cardiomyopathy 01/06/2013 Atrial fibrillation (HCC) 01/06/2013 CAD (coronary artery disease) 07/25/2012 [place] (myocardial infarction) ([facility]) 012 as of this encounter Immunizations [...] encounter Miscellaneous Notes * Telephone Encounter - Denis Langston MD - 06/08/2018 12:00 PM EDT Thanks * Telephone Encounter - Luiza Burkett LPN - 06/08/2018 9:50 AM EDT [facility]ju pharm calling. Pt is having trouble cut carvedilol in half. Pharm inquiring if a 12.5 tab could be ordered. Order pending if agreeable. in this encounter Plan of Treatment Upcoming Encounters Date Type Specialty Care Team Description 06/21/2018 Pharmacy [facility] [address] [place], [place] [address] 08/22/2018 Cardiac Studies Cardiology Gw, [facility] [address] [place] [address] [phone] 11/24/2018 Office Visit Cardiology Denis Langston MD [address] [place] [address] [phone] Health Maintenance Due Date Last Done Comments [...] fileas of this encounter Visit Diagnoses Diagnosis Coronary artery disease invo lving [place] coronary artery of [place] heart without angina pectoris - Primary in this encounter
--- OUTSIDE RECORDS SUMMARY | 2023-09-08 00:57 | External Medical Summary ---
Author Name Unknown Address [facility] [place] [address] Phone Organization K01:[facility] [address] [id number] Laboratory Report Ordering Provider Test Date Status DOV JORGE 01/11/2018 11:41:00 Final Observation Date Value Abnormality Reference Status TSH 01/11/2018 18:01 5.51 Above high normal 0.27- 4.2 Final Performing Location [place] [address] [address] [facility] [address]
--- OUTSIDE RECORDS SUMMARY | 2023-09-08 00:57 | External Medical Summary | Summary of Care ---
Author Name Unknown Organization [place] [address] Phone Care Team Providers Care Director Auto Name Role Phone Hank Oshea MD Primary Care Provider [phone] Reason for Visit * Reason Comments ADVICE Encounter Details Date Type Department Care Team Description 04/21/2018 Telephone Cardiology, [facility] 132 [facility] [place] [address] Denis Langston MD 132 [facility] [place] [id number] ADVICE Allergies No Known Allergiesas of this encounter Medications Prescription Sig. Disp. Refills Start Date End Date Status VITAMIN D 2000 UNITS PO TABS one tablet daily Active nitroglycerin (NITROSTAT) 0.4 MG SUBLIndications:Rascon ry artery disease involving [place] coronary artery of [place] heart without angina pectoris,Myocardial infarction involving other [...] (HCC) 01/06/2013 CAD (coronary artery disease) 07/25/2012 [place] (myocardial infarction) ([facility]) 012 as of this encounter [...] surgery * Telephone Encounter - Luiza Nguyen [facility] - 04/22/2018 12:06 PM EDT Spoke to nurse at Dr. Hua's office to clarify their orders - she states Dr. Hua wants plavix heldx 1 week and warfarin held x [address] Langston - just want to confirm you are okay with patient holding coumadin without lovenox. CHADSVAsc = 4 (HF, age > 75, vasc disease) with [place] in 1994. Thank you Luiza Masters, Pharm [...] advise and call Dr.Robert Hua's office at [phone] in this encounter Plan of Treatment Upcoming Encounters Date Type Specialty Care Team Description 04/22/2018 Pharmacy Pharmacy , [facility] [address] [place] [address] [phone] Myocardial infarction, unspecified [place] type, unspecified artery (HCC)*;Atrial fibrillation, unspecified type (HCC) 05/03/2018 Pharmacy [facility] [address] [place] [address] 05/19/2018 Cardiac Studies Cardiology Gw, [facility] [address] [place] [address] [phone] 08/22/2018 Cardiac Studies Cardiology , [facility] [address] [place] [address] [phone] 11/24/2018 Office Visit Cardiology Denis Langston MD [address] [place] [address] [phone] Health Maintenance Due Date Last Done Comments [...]
--- OUTSIDE RECORDS SUMMARY | 2023-09-08 00:57 | External Medical Summary | Summary of Care ---
Author Name Unknown Organization [place] [address] Phone Care Team Providers Care Gift Officer Name Role Phone Hank Oshea MD Primary Care Provider [phone] Reason for Visit * Reason Comments MEDICATION REFILL Encounter Details Date Type Department Care Team Description 02/21/2018 Refill Cardiology, [facility] 132 [facility] [place] [address] Wesly Langston MD 132 [place] [address] [phone] Heart failure, systolic, due to CAD (HCC) Allergies No Known Allergiesas of this encounter Medications Prescription Sig. Disp. Refills Start Date End Date Status VITAMIN D 2000 UNITS PO TABS one tablet daily Active nitroglycerin (NITROSTAT) 0.4 MG SUBLIndications:Co ronary artery disease involving [place] coronary artery of [place] heart without angina pectoris,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 25 Tab 11 07/21/2016 Active warfarin sodium (COUMADIN) 5 MG TabletIndications: Atrial fibrillation (HCC) warfarin 7.5mg SuTh, 5mg all other days or as directed by anti-coag clinic 110 Tab 3 02/18/2017 Active ramipril (ALTACE) 2.5 MG Capsule Take 1 Cap by mouth daily. 90 Cap 3 09/13/2017 Active digoxin (LANOXIN) 125 mcg Tablet 1 tablet on Wednesday, , Wednesday 40 Tab 5 09/13/2017 Active furosemide (LASIX) 20 MG Tablet Take 1 Tab by mouth daily. 90 Tab 3 09/13/2017 Active rosuvastatin (CRESTOR) 5 MG TabletIndications: Heart failure, systolic, due to CAD (HCC),Ischemic cardiomyopathy,AIC D (automatic cardioverter/defib rillator) present,CAD (coronary artery disease) Take 1 tablet every three days 45 Tab 3 10/06/2017 Active levothyroxine (SYNTHROID) 75 MCG Tablet Take 75 mcg by mouth daily first thing in [...] a day. 90 Tab 3 02/21/2018 Active carvedilol (COREG) 25 MG TabletIndications: Heart failure, systolic, due to CAD (HCC) Take 0.5 Tabs by mouth 2 times a day. 90 Tab 3 02/18/2017 02/21/2018 Discontinued as of this encounter Active Problems Problem Noted Date AICD (automatic cardioverter/defibrillat or) present 02/10/2013 Heart failure, systolic, due to CAD (HCC ) 01/06/2013 Ischemic cardiomyopathy 01/06/2013 Atrial fibrillation (HCC) 01/06/2013 CAD (coronary artery disease) 07/25/2012 [place] (myocardial infarction) ([facility]) 012 as of this encounter [...] Telephone Encounter - Wesly Langston MD - 02/21/2018 3:08 PM EDT Signed Prescriptions: Disp Refills carvedilol (COREG) 25 MG Tablet 90 Tab 3 Sig: Take 0.5 Tabs by mouth 2 times a day. Authorizing Provider: WESLY LANGSTON * Telephone Encounter - Oanh Gurrola [facility] - 02/21/2018 2:14 PM EDT Formatting of this note may be different from the original. Pending Prescriptions: Disp Refills carvedilol (COREG) 25 MG Tablet 90 Tab 3 Sig: Take 0.5 Tabs by mouth 2 times a day. Last Office Visit: 09/13/2017 Next Office Visit: 03/21/2018 Scheduled Provider(s): Wilmar Lay PA-C If no future appointments scheduled, and last appointment is greater than a year ago, please schedule patient for a follow-up appointment Last date the medication was ordered: 02/18/17 Patient Phone Numbers Labs: Lab Results Component Value Date/Time CREAT 1.3 (H) 01/11/2018 11:41 AM POTASSIUM 4.5 01/11/2018 11:41 AM TSH 5.51 (H) 01/11/2018 11:41 AM LDLCALC 68 01/11/2018 11:41 AM ALT <5 (L) 01/11/2018 11:41 AM HGBA1C 5.4 06/30/2016 10:59 AM in this encounter Plan of Treatment Upcoming Encounters Date Type Specialty Care Team Description 03/08/2018 Pharmacy [facility] [address] [facility] [place], [place] [address] 03/21/2018 Office Visit Cardiology Wilmar Lay PA-C [address] [place] [address] [phone] 05/19/2018 Cardiac Studies Cardiology [place], [facility] [address] [place] [address] [phone] 08/22/2018 Cardiac Studies Cardiology [place], [facility] [address] [place] [address] [phone] Health Maintenance Due Date Last Done Comments PNEUMOCOCCAL ADULT 65 YRS AN D OVER (1 of 2 - PCV13) 1999 *ADVANCE DIRECTIVE NOT ON FILE 11/22/2014 *DEPRESSION SCREENING, KRYSTYNA Yoder FOR PTS 18 AND OVER 12/02/2014 DIABETES SCREEN EVERY 3 YRS- AGE 45 AND ABOVE 01/11/2021 01/11/2018, 09/21/2017, 11/25/2016, Additional history exists DTaP,Tdap,and Td Vaccines (2 - Tdap) 07/29/2027 07/29/2017 Influenza Vaccine (FLU shot) Completed 07/29/2017, 08/08/2012 as of this encounter Implants Not on fileas of this encounter Visit Diagnoses Diagnosis Heart failure, systolic, due to CAD (HCC) Unspecified systolic heart failure in this encounter Insurance Payer Benefit Plan / Group Subscriber ID Type Phone Address MEDICARE MEDICARE A AND B [id number] Medicare [place], [place] [facility] [id number] [facility] [id number] as of this encounter
--- OUTSIDE RECORDS SUMMARY | 2023-09-08 00:57 | External Medical Summary ---
Author Name Unknown Address Unknown Organization R:IT USE ONLY!!! Laboratory Report Ordering Provider Test Date Status DOV JORGE 02/08/2018 11:18:00 Final Observation Date Value Abnormality Reference Status INR in Capillary blood by Coagulation assay 02/08/2018 11:18 2.6 Final Days in therapeutic INR range/Days INR result determined [Ratio] 02/08/2018 11:18 Final Therapeutic ranges for non-o perative patients: Prophylaxsis/treatment of DVT: (Range:2.0-3.0) Treatment of pulmonary embolism:(Range:2.0-3.0) Prevention of systemic embolism from: -tissue heart valves -acute myocardial infarction -valvular heart disease -atrial fibrillation (Range: 2.0-3.0) Mechanical prosthetic valves: (Range: 2.5-3.5) Performing Location IT USE ONLY!!!
--- OUTSIDE RECORDS SUMMARY | 2023-09-08 00:57 | External Medical Summary | Summary of Care ---
Author Name Unknown Organization [place] [address] Phone Care Team Providers Care Bacteriologist Soil Name Role Phone Hank Oshea MD Primary Care Provider [phone] Reason for Visit * Reason Comments Dosage Adjustment Via Phone (anticoag Cl inic) PROCEDURE Encounter Details Date Type Department Care Team Description 04/22/2018 Pharmacy Pharmacy, [facility] 200 [facility] [place] [address] [facility] 200 [place] [address] [phone] Myocardial infarction, unspecified [place] type, unspecified artery (HCC)*;Atrial fibrillation, unspecified type ([facility]) Allergies No Known Allergiesas of this encounter Medications Prescription Sig. Disp. Refills Start Date End Date Status VITAMIN D 2000 UNITS PO TABS one tablet daily Active nitroglycerin (NITROSTAT) 0.4 MG SUBLIndications:Rascon ry artery disease involving [place] coronary artery of ruby heart without angina pectoris,Myocardial infarction involving other [...] (HCC) 01/06/2013 CAD (coronary artery disease) 07/25/2012 [place] (myocardial infarction) (HCC) 012 as of this [...] this encounter Progress Notes * Luiza Nguyen, [facility] - 04/22/2018 12:00 PM EDT Formatting of this note may be different from the original. Patient Phone Numbers Patient to have hernia [facility] [place] 05[facility]09 [facility]. Hua's orders are to stop plavix x 1 week and warfarin x 5 days. Diagosis for coumadin therapy is atrial fibrillation. No hx of recent DVT, PE, MVR, OR or CVA. CHADSVasc score of 4 (age> 75, HF, vasc disease) plus [place] in 1994. Dr. Langston also okay with no bridge. Patient to hold plavix [address] Langston. Patient will take their last dose of coumadin 05/03, then restart coumadin the evening of the procedure with 10 mg for 2 days, then resume previous dose 10mg F, 5mg all other days (5mg tabs). Repeat pt/inr 2 weeks after procedure. Spoke to patient and and confirmed above. Luiza Paz [facility] Clinical Pharmacist 04/22/2018, 12:13 PM in this encounter Plan of Treatment Upcoming Encounters Date Type Specialty Care Team Description 04/22/2018 Pharmacy Pharmacy , [facility] [address] [place] [address] [phone] Myocardial infarction, unspecified OR type, unspecified artery (HCC)*;Atrial fibrillation, unspecified type (HCC) 05/19/2018 Cardiac Studies Cardiology , [facility] [address] [place] [address] [phone] 05/24/2018 Pharmacy Pharmacy [place], [facility] [address] [place] [address] 08/22/2018 Cardiac Studies Cardiology , [facility] [address] [place] [address] [phone] 11/24/2018 Office Visit Cardiology Denis Langston MD [address] [place] [address] [phone] Health Maintenance Due Date Last Done Comments [...] this encounter Visit Diagnoses Diagnosis Myocardial infarction, unspe cified OR type, unspecified artery (HCC) - Primary Atrial fibrillation, unspeci fied type (HCC) in this encounter
--- OUTSIDE RECORDS SUMMARY | 2023-09-08 00:57 | External Medical Summary | Summary of Care ---
Author Name Unknown Organization [place] [address] Phone Care Team Providers Care Preflight Inspector Name Role Phone Hank Oshea MD Primary Care Provider [phone] Reason for Visit * Reason Comments Dosage Adjustment In Person (Anticoag Cl inic) Encounter Details Date Type Department Care Team Description 02/08/2018 Pharmacy Pharmacy, [address] [place] [address] [facility] [address] [place] [address] Paroxysmal atrial fibrillation (HCC)*;ST elevation myocardial infarction (STEMI), unspecified artery (HCC);Anticoagulation management encounter;detention 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 therapy Allergies No Known Allergiesas of this encounter Medications Prescription Sig. Disp. Refills Start Date End Date Status VITAMIN D 2000 UNITS PO TABS one tablet daily Active nitroglycerin (NITROSTAT) 0.4 MG SUBLIndications:Rascon ry artery disease involving [place] coronary artery of [place] heart without angina pectoris,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 25 Tab 11 07/21/2016 Active carvedilol (COREG) 25 MG TabletIndications:Hear t failure, systolic, due to CAD (HCC) Take 0.5 Tabs by mouth 2 times a day. 90 Tab 3 02/18/2017 Active warfarin sodium (COUMADIN) 5 MG TabletIndications:Atri al fibrillation (HCC) warfarin 7.5mg SuTh, 5mg all other days or as directed by anti-coag clinic 110 Tab 3 02/18/2017 Active clopidogrel (PLAVIX) 75 MG TabletIndications:Atri al fibrillation (HCC) Take 1 Tab by mouth daily. 90 Tab 3 02/18/2017 Active ramipril (ALTACE) 2.5 [...] three days 45 Tab 3 10/06/2017 Active as of this encounter Active Problems Problem Noted Date AICD (automatic cardioverter/defibrillat or) present 02/10/2013 Heart failure, systolic, due to CAD (HCC ) 01/06/2013 Ischemic cardiomyopathy 01/06/2013 Atrial fibrillation (HCC) 01/06/2013 CAD (coronary artery disease) 07/25/2012 [place] [...] of this encounter Progress Notes * Anibal Mcfarland, [facility] - 02/08/2018 11:14 AM EDT Formatting of this note may [...] Dietary Status Changes: Dietary vitamin K intake increased since last follow-up Most recent CBC: CBC/DIFF Boris Dt/Tm Resulted [...] (K/uL) 01/11/18 11:41A 01/11/18 0.03 F INR: 2.6 Target range: 2.0-3.0 Recommendations: Continue 10mg F, 5mg all other days (5mg tabs) Follow-up: Patient to repeat PT/INR in 4 week(s). Anibal Caceres, RPh, CDE, CACP Clinical Pharmacist Medication Therapy Disease Management 02/08/2018, 11:14 AM in this encounter Plan of Treatment Upcoming Encounters Date Type Specialty Care Team Description 02/08/2018 Pharmacy Pharmacy [place], [facility] [address] [place] [address] Paroxysmal atrial fibrillation (HCC)*;ST elevation myocardial infarction (STEMI), unspecified artery (HCC);Anticoagulation management encounter;ocean transportation intermediary 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 therapy 02/14/2018 Cardiac Studies Cardiology [facility] [place] [address] [place] [address] [phone] 03/08/2018 Pharmacy Pharmacy [place], [facility] [address] [place] [address] 03/21/2018 Office Visit Cardiology Wilmar Lay PA-C [address] [place] [address] [phone] 05/19/2018 Cardiac Studies Cardiology , [facility] [address] [place] [address] [phone] 08/22/2018 Cardiac Studies Cardiology , [facility] [address] [place] [address] [phone] Health Maintenance Due Date Last Done Comments [...] fileas of this encounter Visit Diagnoses Diagnosis Paroxysmal atrial fibrillati on (HCC) - Primary Atrial fibrillation ST elevation myocardial infa rction (STEMI), unspecified artery (HCC) Anticoagulation management e ncounter Encounter for therapeutic drug monitoring ocean transportation intermediary 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 ant icoagulant therapy in this encounter Insurance Payer Benefit Plan / Group Subscriber ID Type Phone Address MEDICARE MEDICARE A AND B [id number] Medicare [place] BLUE [employer]UE [employer]IELD [id number] [facility][1] [id number] as of this encounter
--- OUTSIDE RECORDS SUMMARY | 2023-09-08 00:57 | External Medical Summary ---
Author Name Unknown Address [address] [place] [address] Phone Organization K09:[facility] [address] [facility] [address] [place] [address] Laboratory Report Ordering Provider Test Date Status DOV JORGE 01/11/2018 11:41:00 Final Observation Date Value Abnormality Reference Status WBC, Total 01/11/2018 11:47 6.48 4.00-10.80 F inal RBC 01/11/2018 11:47 4.31 Below low normal 4.50-5 .25 Final Hemoglobin 01/11/2018 11:47 14.2 14.0-16.8 Fi nal HCT 01/11/2018 11:47 42.0 40.0-48.4 Fin al MCV 01/11/2018 11:47 97.4 82.0-99.5 Fin al MCH 01/11/2018 11:47 32.9 27.0-34.0 Fin al MCHC 01/11/2018 11:47 33.8 32.0-36.0 Fin al RDW 01/11/2018 11:47 13.8 11.5-15.5 Fin al Platelets 01/11/2018 11:47 170 140-400 Fin al MPV 01/11/2018 11:47 9.7 6.6-11.1 Fin al Segs 01/11/2018 11:47 58.4 40-75 Fin al Lymphs % 01/11/2018 11:47 27.5 18-42 Fin al Monos 01/11/2018 11:47 11.3 Above high normal 1-11 Final Eosinophils 01/11/2018 11:47 2.3 0-6 F inal Basos 01/11/2018 11:47 0.5 0-2 Fin al Absolute Segs 01/11/2018 11:47 3.79 1.8-7.7 Final Lymphs, absolute 01/11/2018 11:47 1.78 1.0-4. 8 Final Monos, Abs 01/11/2018 11:47 0.73 0.0-1.1 Fi nal Steve, Abs 01/11/2018 11:47 0.15 0.0-0.7 Fin juanpablo Cavazos, Abs 01/11/2018 11:47 0.03 0.0-0.2 Fi nal Performing Location [facility] [address] [place] [address]
--- OUTSIDE RECORDS SUMMARY | 2023-09-08 00:57 | External Medical Summary | Summary of Care ---
Author Name Unknown Organization [place] [address] Phone Care Team Providers Care Drum Attendant Name Role Phone Hank Oshea MD Primary Care Provider [phone] Reason for Visit * Reason Comments FOLLOW UP Encounter Details Date Type Department Care Team Description 03/21/2018 Office Visit Cardiology, [facility] [place] [address] Wilmar Lay PA-Nettie [address] [facility] [place] [address] [phone] Ischemic cardiomyopathy*;Atrial fibrillation (HCC);Heart failure, systolic, due to CAD (HCC);Coronary artery disease involving [place] coronary artery of [place] heart without angina pectoris;AICD (automatic cardioverter/defibrill ator) present Allergies No Known Allergiesas of this encounter Medications Prescription Sig. Disp. Refills Start Date End Date Status VITAMIN D 2000 UNITS PO TABS one tablet daily Active nitroglycerin (NITROSTAT) 0.4 MG SUBLIndications:Co ronary artery disease involving [place] coronary artery of [place] heart without angina pectoris,Myocardia l infarction involving [...] other days 110 Tab 3 03/21/2018 Active warfarin sodium (COUMADIN) 5 MG TabletIndications: Atrial fibrillation (HCC) warfarin 7.5mg SuTh, 5mg all other days or as directed by anti-coag clinic 110 Tab 3 02/18/2017 03/21/2018 Discontinued as of this encounter Active Problems Problem Noted Date AICD (automatic cardioverter/defibrillat or) present 02/10/2013 Heart failure, systolic, due to CAD (HCC ) 01/06/2013 Ischemic cardiomyopathy 01/06/2013 Atrial fibrillation (HCC) 01/06/2013 CAD (coronary artery disease) 07/25/2012 [place] (myocardial infarction) (HCC) 012 as of this [...] Not on file as of this encounter Last Filed Vital Signs Vital Sign Reading Time Taken Blood Pressure 104/66 03/21/2018 12:57 PM EDT Pulse 72 03/21/2018 12:57 PM EDT Temperature - - Respiratory Rate 16 03/21/2018 12:5 7 PM EDT Oxygen Saturation - - Inhaled Oxygen Concentration - - Weight 79.4 kg (175 lb) 03/21/2018 12:5 7 PM EDT Height 177.8 cm (5' 10") 03/21/2018 12: 57 PM EDT Body Mass Index 25.11 03/21/2018 12:57 PM EDT in this encounter Progress Notes * Wilmar Lay PA-C - 03/21/2018 1:26 PM EDT Formatting of this note may be different from the original. SUBJECTIVE: Lucian Larson Jr. Is a 82 year old male here today for routine cardiology follow-up. Followed by Dr. Langston with last evaluation on September 13, 2017. He is being evaluated by the undersigned for the 1st time today. History is complex, outlined by Dr. Langston as follows: 1. 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 2. Ischemic cardiomyopathy secondary to #1. 3. Prior implantable cardiac defibrillator in January 2013. 4. Acute decompensation in the setting of elevated heart rate, receiving stenting to the recannulated left anterior descending and attempted stent into the proximal right coronary artery in May 2014. 5. Chronic atrial fibrillation. 6. Hyperlipidemia, on therapy. No interim ER evaluations or hospitalizations. No chest pain. No interim sublingual nitroglycerin use. No palpitations. No ICD discharges. Stable shortness of breath. No orthopnea, PND, or increased edema. Balance issues; no overt dizziness, near syncope, or true syncope. No epistaxis, hemoptysis, m alyssa, hematochezia, or hematuria. One interim fall in the living room approximately two months ago. Ambulation is via a cane. He also has a walker at home. Patient Active Problem List Diagnosis Code CAD (coronary artery disease) I25.10 [place] (myocardial infarction) (HCC) I21.9 Heart failure, systolic, due to CAD ([facility]) I50.20, I25.10 Ischemic cardiomyopathy I25.5 Atrial fibrillation (HCC) I48.91 AICD (automatic cardioverter/defibrillator) present Z95.810 Review of patient's allergies indicates: No Known Allergies Current Outpatient Prescriptions Medication Sig Dispense Refill carvedilol (COREG) 25 MG Tablet Take 0.5 Tabs by mouth 2 times a day. 90 Tab 3 clopidogrel (PLAVIX) 75 MG Tablet Take 1 Tab by mouth daily. 90 Tab 3 digoxin (LANOXIN) 125 mcg Tablet 1 tablet on Wednesday, , Wednesday 40 Tab 5 furosemide (LASIX) 20 MG Tablet Take 1 Tab by mouth daily. 90 Tab 3 levothyroxine (SYNTHROID) 75 MCG Tablet Take 50 mcg by mouth daily first thing in the morning. (at least 30 min prior to breakfast or other meds) ramipril (ALTACE) 2.5 MG Capsule Take 1 Cap by mouth daily. 90 Cap 3 rosuvastatin (CRESTOR) 5 MG Tablet Take 1 tablet every three days 45 Tab 3 VITAMIN D 2000 UNITS PO TABS one tablet daily warfarin sodium (COUMADIN) 5 MG Tablet warfarin 7.5mg SuTh, 5mg all other days or as directed by anti-coag clinic 110 Tab 3 nitroglycerin (NITROSTAT) 0.[address] 1 Tab under the tongue as needed for Pain, Chest. 25 Tab 11 OBJECTIVE/PHYSICAL EXAMINATION: BP 104/66 | Pulse 72 | Resp 16 | Ht 5' 10" (1.778m) | Wt 175 lbs (79.379kg) | BMI 25.11 kg/m | BSA 1.98 m General: A&Ox3. NAD. HEENT: Normocephalic. Atraumatic. PER. Conjunctiva pink, sclera clear. No carotid bruits. No JVD. No HJR. Heart: RRR. No murmur. No rub. No gallop. PMI is nondisplaced. Lungs: Clear to auscultation. Abdomen: +BS. Soft. Nontender. No masses or organomegaly. Extremities: Mildedema. No clubbing. No cyanosis. Limited neurological examination is without focal deficits. Pulses: radial=2/4, posterior tibial=2/4. Data: February 14, 2018 Device interrogation revealed normal ICD function. This is a Medtronic Model - Eric II VR [id number] (SN: [id number]). RV Lead: Medtronic, Model - 6935 (SN: [id number]). Implant Date: 02-02-2013. Battery voltage: 3.03 V. PANCHO 2.63 V. Backup pacemaker set VVI, 40 bpm. RV paced 0.5%. Component 01/11/2018 HOURS FASTING 0 TRIGLYCERIDES 79 CHOLESTEROL 133 HDL-CHOLESTEROL 49 CHOL/HDL RATIO 2.7 LDL (CALCULATED) 68 ASSESSMENT: Stable cardiac signs and symptoms RECOMMENDATIONS/PLAN: Continue current therapies as prescribed. Device interrogation due May 19, 2018. Routine cardiology follow-up in 6 months time or as needed. Wilmar Lay PA-C Department of Cardiology in this encounter Nursing Notes * Caterina Quigley RN - 03/21/2018 1:02 PM EDT Examination Room: 2 Name: Lucian Larson Date of : (1935). Reason for Visit: 6 month return Interim Hospitalization(s): Denied Problems/Concerns: No problems voiced Chest Pain/SOB: Denied [facility] is a way you can talk to your provider online through e-mail. Would you like to sign up? I can activate it for you? NO in this encounter Plan of Treatment Upcoming Encounters Date Type Specialty Care Team Description 04/05/2018 Pharmacy Pharmacy [facility] [address] [place] [address] 05/19/2018 Cardiac Studies Cardiology , [facility] [address] [place] [address] [phone] 08/22/2018 Cardiac Studies Cardiology , [facility] [address] [place] [address] [phone] 11/24/2018 Office Visit Cardiology Denis Langston MD [address] [place] [address] [phone] Health Maintenance Due Date Last Done Comments [...] heart disease Atrial fibrillation (HCC) Atrial fibrillation Heart failure, systolic, due to CAD (HCC) Unspecified systolic heart failure Coronary artery disease invo lving [place] coronary artery of [place] heart without angina pectoris AICD (automatic cardioverter /defibrillator) present Automatic implantable cardiac defibrillator in situ in this encounter
--- OUTSIDE RECORDS SUMMARY | 2023-09-08 00:57 | External Medical Summary ---
Author Name Unknown Address [facility] [place] [address] Phone Organization K01:[facility] [address] [id number] Laboratory Report Ordering Provider Test Date Status DOV JORGE 02/21/2018 11:50:00 Final Observation Date Value Abnormality Reference Status TSH 02/21/2018 21:29 5.02 Above high normal 0.27- 4.2 Final Performing Location [place] [address] [address] [facility] [address]
--- OUTSIDE RECORDS SUMMARY | 2023-09-08 00:57 | External Medical Summary | Summary of Care ---
Author Name Unknown Organization [place] [address] Phone Care Team Providers Care Handle Bar Assembler Name Role Phone Hank Oshea MD Primary Care Provider [phone] Reason for Visit * Reason Comments ADVICE Encounter Details Date Type Department Care Team Description 04/21/2018 Telephone Cardiology, [facility] 132 [facility] [place] [address] Denis Langston MD 132 [facility] [place] [id number] ADVICE Allergies No Known Allergiesas of this encounter Medications Prescription Sig. Disp. Refills Start Date End Date Status VITAMIN D 2000 UNITS PO TABS one tablet daily Active nitroglycerin (NITROSTAT) 0.4 MG SUBLIndications:[place] artery disease involving [place] coronary artery of [place] heart without angina pectoris,Myocardial infarction involving other [...] (HCC) 01/06/2013 CAD (coronary artery disease) 07/25/2012 [place] (myocardial infarction) ([facility]) 012 as of this encounter [...] (HF, age > 75, vasc disease) with AL in 1994. Thank you Luiza Masters, Pharm [...] advise and call Dr.Robert Hua's office at [phone] in this encounter Plan of Treatment Upcoming Encounters Date Type Specialty Care Team Description 04/22/2018 Pharmacy Pharmacy [facility], [facility] [address] [place] [address] [phone] Myocardial infarction, unspecified AL type, unspecified artery (HCC)*;Atrial fibrillation, unspecified type (HCC) 05/03/2018 Pharmacy Pharmacy [facility] [address] [place] [address] 05/19/2018 Cardiac Studies Cardiology [facility] [place] [address] [phone] 08/22/2018 Cardiac Studies Cardiology Gw, [facility] [address] [place] [place] [address] [phone] 11/24/2018 Office Visit Cardiology Denis Langston MD [address] [place] [address] [phone] Health Maintenance Due Date Last Done Comments [...]
--- OUTSIDE RECORDS SUMMARY | 2023-09-08 00:57 | External Medical Summary ---
Author Name Unknown Address [address] [place] [address] Phone Organization K09:[facility] [address] [place] [address] Laboratory Report Ordering Provider Test Date Status DOV JORGE 01/11/2018 11:41:00 Final Observation Date Value Abnormality Reference Status BUN 01/11/2018 12:24 20 6-20 Fin al Creatinine 01/11/2018 12:24 1.3 Above high normal 0.6- 1.2 Final GFR should be used to assess renal function. Plasma/Serum creatinine may not be able to properly reflect renal function in some cases. Sodium 01/11/2018 12:24 140 135-146 Fin al Potassium 01/11/2018 12:24 4.5 3.5-5.1 Fin al Cl 01/11/2018 12:24 100 98-107 Fin al CO2 01/11/2018 12:24 28 22-32 Fin al Anion gap 01/11/2018 12:24 12 7-15 Fin al Glucose 01/11/2018 12:24 80 70-120 Fin al Albumin 01/11/2018 12:24 4.1 3.8-5.0 Fin al AST (Aspartate aminotransferase) 01/11/2018 12:24 18 10-50 Final Alk Phos 01/11/2018 12:24 89 0-153 Fin al Bilirubin, Total 01/11/2018 12:24 0.8 0-1.2 Final Calcium 01/11/2018 12:24 9.6 8.4-10.2 Fin al Protein 01/11/2018 12:24 7.2 6.0-8.3 Fin al ALT (Alanine aminotransferase) 01/11/2018 12:24 <5 Be low low normal 10-50 Final E Glom Filt Rate 01/11/2018 12:24 52.9 Below low normal >60 Final If patient is [place] an, multiply estimated GFR by 1.159. Performing Location [facility] [address] [place] [address]
--- OUTSIDE RECORDS SUMMARY | 2023-09-08 00:57 | External Medical Summary | Summary of Care ---
Author Name Unknown Organization [place] [address] Phone Care Team Providers Care Pipe Fitter Apprentice Name Role Phone Hank Oshea MD Primary Care Provider [phone] Reason for Visit * Reason Comments ADVICE Encounter Details Date Type Department Care Team Description 04/21/2018 Telephone Cardiology, [facility] 132 [facility] [place] [address] Denis Langston MD 132 [facility] [place] [id number] ADVICE Allergies No Known Allergiesas of this encounter Medications Prescription Sig. Disp. Refills Start Date End Date Status VITAMIN D 2000 UNITS PO TABS one tablet daily Active nitroglycerin (NITROSTAT) 0.4 MG SUBLIndications:Rascon ry artery disease involving [place] coronary artery of [place] heart without angina pectoris,Myocardial infarction involving other [...] (HCC) 01/06/2013 CAD (coronary artery disease) 07/25/2012 CT (myocardial infarction) ([facility] [...] advise and call Dr.Robert Hua's office at [phone] in this encounter Plan of Treatment Upcoming Encounters Date Type Specialty Care Team Description 05/03/2018 Pharmacy Pharmacy [facility] [address] [place] [address] 05/19/2018 Cardiac Studies Cardiology [place], [facility] [address] [place] [address] [phone] 08/22/2018 Cardiac Studies Cardiology [place], [facility] [address] [place] [address] [phone] 11/24/2018 Office Visit Cardiology Denis Langston MD [address] [place] [address] [phone] Health Maintenance Due Date Last Done Comments [...]
--- OUTSIDE RECORDS SUMMARY | 2023-09-08 00:57 | External Medical Summary | Summary of Care ---
Author Name Unknown Organization [place] [address] Phone Care Team Providers Care Oil Speculator Name Role Phone Hank Oshea MD Primary Care Provider [phone] Reason for Visit * Reason Comments ADVICE Encounter Details Date Type Department Care Team Description 04/21/2018 Telephone Cardiology, [facility] 132 [facility] [place] [address] Denis Langston MD 132 [facility] [place] [id number] ADVICE Allergies No Known Allergiesas of this encounter Medications Prescription Sig. Disp. Refills Start Date End Date Status VITAMIN D 2000 UNITS PO TABS one tablet daily Active nitroglycerin (NITROSTAT) 0.4 MG SUBLIndications:[place] ry artery disease involving [place] coronary artery of [place] heart without angina pectoris,Myocardial infarction involving [...] (coronary artery disease) 07/25/2012 [place] (myocardial infarction) ([facility]) 012 as [...] advise and call Dr.Robert Hua's office at [phone] in this encounter Plan of Treatment Upcoming Encounters Date Type Specialty Care Team Description 05/03/2018 Pharmacy Pharmacy [facility] [address] [place] [address] 05/19/2018 Cardiac Studies Cardiology [place], [facility] [address] [place] [address] [phone] 08/22/2018 Cardiac Studies Cardiology [place], [facility] [address] [place] [address] [phone] 11/24/2018 Office Visit Cardiology Denis Langston MD [address] [place] [address] [phone] Health Maintenance Due Date Last Done Comments [...]
--- OUTSIDE RECORDS SUMMARY | 2023-09-08 00:57 | External Medical Summary | Summary of Care ---
Author Name Unknown Organization [place] [address] Phone Care Team Providers Care Powder Coat Painter Name Role Phone Hank Oshea MD Primary Care Provider [phone] Reason for Visit * Reason Comments Dosage Adjustment In Person (Anticoag Cl inic) Encounter Details Date Type Department Care Team Description 03/31/2018 Pharmacy Pharmacy, [facility] 200 [facility] [place] [address] [facility] [address] [place] [address] Paroxysmal atrial fibrillation (HCC)*;ST elevation myocardial infarction (STEMI), unspecified artery (HCC);Anticoagulation management encounter;housing development specialist 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 therapy Allergies No Known Allergiesas of this encounter Medications Prescription Sig. Disp. Refills Start Date End Date Status VITAMIN D 2000 UNITS PO TABS one tablet daily Active nitroglycerin (NITROSTAT) 0.4 MG SUBLIndications:Rascon ry artery disease involving [place] coronary artery of [...] (HCC) 01/06/2013 CAD (coronary artery disease) 07/25/2012 PR (myocardial infarction) (HCC) 012 as of this [...] Progress Notes * Anibal Mcfarland RP - 03/31/2018 11:21 AM EDT Formatting of this note may be different from the original. Medication Therapy Disease Management - Anticoagulation Lucian Larson Dylan is an 82 year old male who presents to clinic for anticoagulation management and education. Current Anticoagulation Regimen: warfarin 10mg F, 5mg all other days (5mg tabs) Anticoagulation Medication Adherence: Patient non-compliant: admits to taking dose different than instructed by clinic; he was in [facility] 03/26-03/29 for cellulitis and his INR was 1.8. He was given 10mg one day instead of 5mg. Patient-Reported Symptoms: Bruising: yes from IVs in [facility] Bleeding: no Miscellaneous: yes cellulitis Interval Health and/or Dietary Status Changes: Medication/Co-morbidity change since last follow-up: in [facility], see above Most recent CBC: CBC/DIFF Boris Dt/Tm Resulted [...] CACP Clinical Pharmacist Medication Therapy Disease Management 03/31/2018, 11:21 AM in this encounter Plan of Treatment Upcoming Encounters Date Type Specialty Care Team Description 05/03/2018 Pharmacy [facility] [address] [facility] [address] 05/19/2018 Cardiac Studies Cardiology , [facility] [address] [place] [address] [phone] 08/22/2018 Cardiac Studies Cardiology , [facility] [address] [place] [address] [phone] 11/24/2018 Office Visit Cardiology [facility] [place] [address] [phone] Health Maintenance Due Date Last Done Comments [...] e ncounter Encounter for therapeutic drug monitoring residential 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 ant icoagulant therapy in this encounter
--- OUTSIDE RECORDS SUMMARY | 2023-09-08 00:57 | External Medical Summary | Summary of Care ---
Author Name Unknown Organization [place] [address] Phone Care Team Providers Care Cardiology Fellow Name Role Phone Hank Oshea MD Primary Care Provider [phone] Reason for Visit * Reason Comments Dosage Adjustment In Person (Anticoag Cl inic) Encounter Details Date Type Department Care Team Description 03/08/2018 Pharmacy Pharmacy, [address] [place] [address] [facility] [address] [place] [address] Paroxysmal atrial fibrillation (HCC)*;ST elevation myocardial infarction (STEMI), unspecified artery (HCC);Anticoagulation management encounter;senior care 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 therapy Allergies No Known Allergiesas of this encounter Medications Prescription Sig. Disp. Refills Start Date End Date Status VITAMIN D 2000 UNITS PO TABS one tablet daily Active nitroglycerin (NITROSTAT) 0.4 MG SUBLIndications:Rascon ry artery disease involving [place] coronary artery of [place] heart without angina pectoris,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 25 Tab 11 07/21/2016 Active warfarin sodium (COUMADIN) 5 MG TabletIndications:Atri [...] a day. 90 Tab 3 02/21/2018 Active as of this encounter Active Problems Problem Noted Date AICD (automatic cardioverter/defibrillat or) present 02/10/2013 Heart failure, systolic, due to CAD (HCC ) 01/06/2013 Ischemic cardiomyopathy 01/06/2013 Atrial fibrillation (HCC) 01/06/2013 CAD (coronary artery disease) 07/25/2012 [place] (myocardial infarction) ([facility]) 012 as of this encounter Immunizations [...] Progress Notes * Anibal Mcfarland RP - 03/08/2018 11:22 AM EDT Formatting of this note may [...] health status or dietary changes noted today Most recent CBC: CBC/DIFF Boris Dt/Tm Resulted [...] CACP Clinical Pharmacist Medication Therapy Disease Management 03/08/2018, 11:23 AM in this encounter Plan of Treatment Upcoming Encounters Date Type Specialty Care Team Description 03/08/2018 Pharmacy Pharmacy [place] [place] [address] Paroxysmal atrial fibrillation (HCC)*;ST elevation myocardial infarction (STEMI), unspecified artery (HCC);Anticoagulation management encounter;senior care 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 therapy 03/21/2018 Office Visit Cardiology Wilmar Lay PA-C [address] [place] [address] [phone] 04/05/2018 [facility] [place] [address] [place] [address] 05/19/2018 Cardiac Studies Cardiology , [facility] [address] [place] [address] [phone] 08/22/2018 Cardiac Studies Cardiology , [facility] [address] [place] [address] [phone] Health Maintenance Due Date Last Done Comments [...] of this encounter Results * INR FINGERSTICK (03/08/2018 11:27 AM) Component Value Ref Range FINGERSTICK INR 2.6 INR THERAPEUTIC RANGE Comment: Therapeutic ranges for non-operative patients: Prophylaxsis/treatment of DVT: (Range:2.0-3.0) Treatment of pulmonary embolism:(Range:2.0-3.0) Prevention of systemic embolism from: -tissue heart valves -acute myocardial infarction -valvular heart disease -atrial fibrillation (Range: 2.0-3.0) Mechanical prosthetic valves: (Range: 2.5-3.5) Specimen Performing Laborator y [facility] [address] [place] [address] in this encounter Visit Diagnoses Diagnosis Paroxysmal atrial fibrillati on (HCC) - Primary Atrial fibrillation ST elevation myocardial infa rction (STEMI), unspecified artery (HCC) Anticoagulation management e ncounter Encounter for therapeutic drug monitoring senior care 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 ant icoagulant therapy in this encounter
--- OUTSIDE RECORDS SUMMARY | 2023-09-08 00:57 | External Medical Summary ---
Author Name Unknown Address Unknown Organization R:IT USE ONLY!!! Laboratory Report Ordering Provider Test Date Status KHOA JORGEMINAL 03/31/2018 11:26:00 Final Observation Date Value Abnormality Reference Status INR in Capillary blood by Coagulation assay 03/31/2018 11:26 2.6 Final Days in therapeutic INR range/Days INR result determined [Ratio] 03/31/2018 11:26 Final Therapeutic ranges for non-o perative patients: Prophylaxsis/treatment of DVT: (Range:2.0-3.0) Treatment of pulmonary embolism:(Range:2.0-3.0) Prevention of systemic embolism from: -tissue heart valves -acute myocardial infarction -valvular heart disease -atrial fibrillation (Range: 2.0-3.0) Mechanical prosthetic valves: (Range: 2.5-3.5) Performing Location IT USE ONLY!!!
--- OUTSIDE RECORDS SUMMARY | 2023-09-08 00:57 | External Medical Summary ---
Author Name Unknown Address Unknown Organization R:IT USE ONLY!!! Laboratory Report Ordering Provider Test Date Status [facility] 12/14/2017 11:08:00 Final Observation Date Value Abnormality Reference Status INR in Capillary blood by Coagulation assay 12/14/2017 11:08 3.9 Final Days in therapeutic INR range/Days INR result determined [Ratio] 12/14/2017 11:08 Final Therapeutic ranges for non-o perative patients: Prophylaxsis/treatment of DVT: (Range:2.0-3.0) Treatment of pulmonary embolism:(Range:2.0-3.0) Prevention of systemic embolism from: -tissue heart valves -acute myocardial infarction -valvular heart disease -atrial fibrillation (Range: 2.0-3.0) Mechanical prosthetic valves: (Range: 2.5-3.5) Performing Location IT USE ONLY!!!
--- OUTSIDE RECORDS SUMMARY | 2023-09-08 00:57 | External Medical Summary ---
Author Name Unknown Address Unknown Organization R:IT USE ONLY!!! Laboratory Report Ordering Provider Test Date Status [facility]IDEL[facility] 03/08/2018 11:27:00 Final Observation Date Value Abnormality Reference Status INR in Capillary blood by Coagulation assay 03/08/2018 11:27 2.6 Final Days in therapeutic INR range/Days INR result determined [Ratio] 03/08/2018 11:27 Final Therapeutic ranges for non-o perative patients: Prophylaxsis/treatment of DVT: (Range:2.0-3.0) Treatment of pulmonary embolism:(Range:2.0-3.0) Prevention of systemic embolism from: -tissue heart valves -acute myocardial infarction -valvular heart disease -atrial fibrillation (Range: 2.0-3.0) Mechanical prosthetic valves: (Range: 2.5-3.5) Performing Location IT USE ONLY!!!
--- OUTSIDE RECORDS SUMMARY | 2023-09-08 00:57 | External Medical Summary ---
Author Name Unknown Address [address] [facility] [place] [address] Phone Organization K01:[facility] [address] [facility] [place] [address] Laboratory Report Ordering Provider Test Date Status DOV JORGE 01/11/2018 11:41:00 Final Observation Date Value Abnormality Reference Status Vitamin B12 01/11/2018 18:01 [phone] F inal Performing Location [facility] [address] [facility] [address]
--- OUTSIDE RECORDS SUMMARY | 2023-09-08 00:57 | External Medical Summary | Summary of Care ---
Author Name Unknown Organization [place] [address] Phone Care Team Providers Care Sales Representative Printing Paper Name Role Phone Hank Oshea MD Primary Care Provider [phone] Reason for Visit * Reason Comments Pacemaker Clinic Encounter Details Date Type Department Care Team Description 02/14/2018 Cardiac Studies Cardiology, [facility] [address] [facility], Pacer [facility] [address] [phone] Ischemic cardiomyopathy*;Atria l fibrillation (HCC);AICD (automatic cardioverter/defibril lator) present;Permanent atrial fibrillation (HCC) Allergies No Known Allergiesas of this encounter Medications Prescription Sig. Disp. 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 25 Tab 11 07/21/2016 Active carvedilol (COREG) 25 MG TabletIndications: Heart failure, systolic, due to CAD (HCC) Take 0.5 Tabs by mouth 2 times a day. 90 Tab 3 02/18/2017 Active warfarin sodium (COUMADIN) 5 MG TabletIndications: [...] mouth daily. 90 Tab 3 02/14/2018 Active clopidogrel (PLAVIX) 75 MG TabletIndications: Atrial fibrillation (HCC) Take 1 Tab by mouth daily. 90 Tab 3 02/18/2017 02/14/2018 Discontinued as of this encounter Active Problems Problem Noted Date AICD (automatic cardioverter/defibrillat or) present 02/10/2013 Heart failure, systolic, due to CAD (HCC ) 01/06/2013 Ischemic cardiomyopathy 01/06/2013 Atrial fibrillation (HCC) 01/06/2013 CAD (coronary artery disease) 07/25/2012 ID (myocardial infarction) ([facility]) 012 as of this encounter Immunizations Name [...] Progress Notes * Sosa Cotter LPN - 02/14/2018 1:25 PM EDT HEART RHYTHM DEVICE CLINIC - SINGLE CHAMBER DEFIBRILLATOR TYPE OF VISIT: Threshold testing INDICATION: I25.5 Ischemic cardiomyopathy I50.9, I25.10 Heart failure, systolic, due to cad (hcc) I48.0 Paroxysmal atrial fibrillation (hcc) Z95.810 Aicd (automatic cardioverter/defibrillator) present IMPLANTING PHYSICIAN: Dr. Gonzalez IMPLANT/DEVICE HISTORY: February 02, 2013 CURRENT SYSTEM: ICD: Medtronic, model - Eric II VR [id number] SN: [id number] RV Lead: Medtronic, Model - 6935 SN: [id number] Implant: 02-02-2013 Abandoned leads: none ALERTS/ADVISORIES: none PATIENT EVALUATION: Symptoms: No dizziness, palpitations, syncope, or presyncope. Pocket evaluation: n/a Intrinsic rhythm: Normal sinus rhythm with intact AV node function. DEVICE EVALUATION: RV Pacing threshold: 1.125v/0.5ms Capture management: n/a Sensing (mV): 12.8 Pacing impedance (ohms): 589 Percentage paced: 0.5% HVLI: 67 ohms Battery: 3.03v PANCHO: 2.63v Charge time: 8.8 sec Short V-V intervals: 0 Mode switch episodes: Oral anticoagulant therapy: coumadin VT/VF episodes (since last evaluation): Past VT/VF episodes: 0 First shock: Most recent shock: Total ICD shocks/ATP therapy: 0 Appropriate shocks: Inappropriate shocks: ATP therapy: FINAL ICD PARAMETERS: Pacemaker mode/rate: VVI, 40 bpm RV Amplitude (V): 2.0 Pulse width (mS): 0.5 VT detection: Off FVT detection: 188-231 bpm (Burst x 1, 25J, 35J x 4) VF detection: >188 bpm (ATP during charging, 25J, 35J x 5) PARAMETER CHANGES: none IMPRESSION: Normal ICD function PLAN: HRDC in January 2019 Gas Appliance Repairer: Dr. Kian Cotter LPN This patient was seen in the Heart [...] Description 03/08/2018 Pharmacy Pharmacy [facility] [address] [place] [address] 03/21/2018 Office Visit Cardiology [facility] [address] [phone] 05/19/2018 Cardiac Studies Cardiology , [facility] [address] [phone] 08/22/2018 Cardiac Studies Cardiology , [facility] [address] [phone] Pending Results Name Priority Associated Diagnoses Date/Ti me MULTI-LEAD DEFIBRILLATOR + REPROGRAM Routine Ischemic cardiomyopathy Atrial fibrillation (HCC) AICD (automatic cardioverter/defibrillator ) present 02/14/2018 12:00 AM EDT Health Maintenance Due Date Last Done Comments PNEUMOCOCCAL ADULT 65 YRS AN D OVER (1 of 2 - PCV13) 1999 *ADVANCE DIRECTIVE NOT ON FILE 11/22/2014 *DEPRESSION SCREENING, MENDEZUA Beba FOR PTS 18 AND OVER 12/02/2014 DIABETES [...] present Automatic implantable cardiac defibrillator in situ Permanent atrial fibrillatio n (HCC) Atrial fibrillation in this encounter Insurance Payer Benefit Plan / Group Subscriber ID Type Phone Address MEDICARE MEDICARE A AND B [id number] Medicare [place], [place] BLUE SHIELD FEDERAL BLUE SHIELD [id number] [facility] [id number] as of this encounter
--- OUTSIDE RECORDS SUMMARY | 2023-09-08 00:57 | External Medical Summary ---
Author Name Unknown Address [facility] [place] [address] Phone Organization K01:[facility] [address] [place] [id number] Laboratory Report Ordering Provider Test Date Status DOV JORGE 03/31/2018 11:30:00 Final Observation Date Value Abnormality Reference Status TSH 03/31/2018 17:27 2.93 0.27-4.2 Fin al Performing Location [address] [address]
--- OUTSIDE RECORDS SUMMARY | 2023-09-08 00:57 | External Medical Summary ---
Author Name Unknown Address [facility] [address] [facility] [place] [address] Phone Organization K01:[facility] [address] [facility] [address] Laboratory Report Ordering Provider Test Date Status DOV JORGE 01/11/2018 11:41:00 Final Observation Date Value Abnormality Reference Status 25-OH Vitamin D total 01/11/2018 18:01 54 > 19 Final Deficient: <20 ng/mL Insuffi cient: 20-29 ng/mL Recommended/Optimum:30-50 ng/mL Vitamin D intoxication is rare. If suspicious of Vitamin D toxicity, evaluation of serum Calcium and PTH is recommended. Performing Location [facility] [address] [facility] [address]
--- OUTSIDE RECORDS SUMMARY | 2023-09-08 00:57 | External Medical Summary | Summary of Care ---
Author Name Unknown Organization [place] [address] Phone Care Team Providers Care Tube Handler Name Role Phone Hank Oshea MD Primary Care Provider [phone] Reason for Visit * Reason Comments Dosage Adjustment In Person (Anticoag Cl inic) Encounter Details Date Type Department Care Team Description 01/11/2018 Pharmacy Pharmacy, [address] [place] [address] [facility] [address] [place] [address] Paroxysmal atrial fibrillation (HCC)*;ST elevation myocardial infarction (STEMI), unspecified artery (HCC);Anticoagulation management encounter;[facility] 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 therapy;Atrial fibrillation, unspecified type (HCC) Allergies No Known Allergiesas of this encounter Medications Prescription Sig. Disp. Refills Start Date End Date Status VITAMIN D 2000 UNITS PO TABS one tablet daily Active nitroglycerin (NITROSTAT) 0.4 MG SUBLIndications:Rascon ry artery disease involving [place] coronary artery of [place] heart without angina pectoris,Myocardial infarction involving other [...] (HCC) 01/06/2013 CAD (coronary artery disease) 07/25/2012 CO (myocardial infarction) 07/25/2012 as of this encounter [...] Progress Notes * Anibal Mcfarland RPh - 01/11/2018 11:27 AM EDT Formatting of this note may be different from the original. Medication Therapy Disease Management - Anticoagulation Lucian Reynolds Neo Navarro. is an 82 year old male who presents to clinic for anticoagulation management and education. Current Anticoagulation Regimen: warfarin 10mg F, 5mg all other days (5mg tabs) Anticoagulation Medication Adherence: Patient compliant Patient-Reported Symptoms: Bruising: no Bleeding: no Miscellaneous: no Interval Health and/or Dietary Status Changes: Dietary vitamin K intake increased since last follow-up Most recent CBC: CBC Boris Dt/Tm Resulted Value Status WBC (K/uL) 09/21/17 11:06A 09/21/17 7.32 F RBC (M/uL) 09/21/17 11:06A 09/21/17 4.54 F HGB (g/dL) 09/21/17 11:06A 09/21/17 14.8 F HCT (%) 09/21/17 11:06A 09/21/17 43.9 F MCV (fL) 09/21/17 11:06A 09/21/17 96.7 F MCH (pg) 09/21/17 11:06A 09/21/17 32.6 F MCHC (g/dL) 09/21/17 11:06A 09/21/17 33.7 F RDW (%) 09/21/17 11:06A 09/21/17 14.0 F PLATELET COUNT (K/uL) 09/21/17 11:06A 09/21/17 180 F MPV (fL) 09/21/17 11:06A 09/21/17 10.4 F INR: 3.0 Target range: 2.0-3.0 Recommendations: Continue 10mg F, 5mg all other days (5mg tabs) Follow-up: Patient to repeat PT/INR in 4 week(s). Lorelei Mathew Pharm D Candidate [facility] Anibal Caceres, RPh, CDE, CACP Clinical Pharmacist Medication Therapy Disease Management 01/11/2018, 11:27 AM in this encounter Plan of Treatment Upcoming Encounters Date Type Specialty Care Team Description 01/11/2018 Laboratory Laboratory [facility], Lab Scenery [address] Olivier Almaraz [place], [place] [address] Arrived 02/08/2018 Pharmacy Pharmacy Deborah, Coag Clinic Scenery [address] [place] [address] 02/14/2018 Cardiac Studies Cardiology [facility] [place] [address] [place] [address] [phone] 03/21/2018 Office Visit Cardiology Wilmar Lay PA-C [address] [place] [address] [phone] 05/19/2018 Cardiac Studies Cardiology Huang, Remote [facility] [address] [place] [address] [phone] 08/22/2018 Cardiac Studies Cardiology Gw, [facility] [address] [place] [address] [phone] Health Maintenance Due Date Last Done Comments PNEUMOCOCCAL ADULT 65 YRS AN D OVER (1 of 2 - PCV13) 1999 *ADVANCE DIRECTIVE NOT ON FILE 11/22/2014 *DEPRESSION SCREENING, ANNUA L FOR PTS 18 AND OVER 12/02/2014 DIABETES SCREEN EVERY 3 YRS- AGE 45 AND ABOVE 09/21/2020 09/21/2017, 11/25/2016, 10/27/2016, Additional history exists DTaP,Tdap,and Td Vaccines (2 - Tdap) 07/29/2027 07/29/2017 Influenza Vaccine (FLU shot) Completed 07/29/2017, 08/08/2012 as of this encounter Implants Not on fileas of this encounter Visit Diagnoses Diagnosis Paroxysmal atrial fibrillati on (HCC) - Primary Atrial fibrillation ST elevation myocardial infa rction (STEMI), unspecified artery (HCC) Anticoagulation management e ncounter Encounter for therapeutic drug monitoring [facility] 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 ant icoagulant therapy Atrial fibrillation, unspeci fied type (HCC) in this encounter Insurance Payer Benefit Plan / Group Subscriber ID Type Phone Address MEDICARE MEDICARE A AND B [id number] Medicare [place] BLUE SHIELD FEDERAL BLUE SHIELD [id number] [facility] [id number] as of this encounter
--- OUTSIDE RECORDS SUMMARY | 2023-09-08 00:57 | External Medical Summary | Summary of Care ---
Author Name Unknown Organization [place] [address] Phone Care Team Providers Care Cathode Ray Tube Assembler Name Role Phone Hank Oshea MD Primary Care Provider [phone] Reason for Visit * Reason Comments Dosage Adjustment In Person (Anticoag Cl inic) Encounter Details Date Type Department Care Team Description 11/16/2017 Pharmacy Pharmacy, [facility] [address] [facility] [place] [address] Prim [facility] [address] [place] [address] Paroxysmal atrial fibrillation (HCC)*;ST elevation myocardial infarction (STEMI), unspecified artery (HCC);Anticoagulation management encounter;extermination inspector 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 therapy Allergies No [...] artery disease) 07/25/2012 IA (myocardial infarction) 07/25/2012 as of this encounter [...] of this encounter Progress Notes * Anibal Mcfarladn, [facility] - 11/16/2017 11:03 AM EST Formatting of this note may be different from the original. Medication Therapy Disease Management - Anticoagulation Lucian Rodolfo Larson Jr. is an 81 year old male who presents to clinic for anticoagulation management and education. Current Anticoagulation Regimen: warfarin 10mg F, 5mg all other days (5mg tabs) Anticoagulation Medication Adherence: Patient compliant Patient-Reported Symptoms: Bruising: no Bleeding: no Miscellaneous: no Interval Health and/or Dietary Status Changes: No significant health status or dietary changes noted today Most recent CBC: CBC Boris Dt/Tm Resulted [...] (fL) 09/21/17 11:06A 09/21/17 10.4 F INR: 2.9 Target range: 2.0-3.0 Recommendations: Continue 10mg F, 5mg all other days (5mg tabs) Follow-up: Patient to repeat PT/INR in 4 week(s). Anibal Caceres, RPh, CDE, CACP Clinical Pharmacist Medication Therapy Disease Management 11/16/2017, 11:03 AM in this encounter Plan of Treatment Upcoming Encounters Date Type Specialty Care Team Description 11/16/2017 Pharmacy Pharmacy Prim [facility] [address] [place] [address] Paroxysmal atrial fibrillation (HCC)*;ST elevation myocardial infarction (STEMI), unspecified artery (HCC);Anticoagulation management encounter;extermination inspector 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 therapy 12/14/2017 Pharmacy Pharmacy Prim, Coag [facility] Scenery [address] [facility] [place] [address] 02/14/2018 Cardiac Studies Cardiology [facility] [place] [address] [facility] [place] [address] [phone] 03/21/2018 Office Visit Cardiology Wilmar Lay, MARCE [address] [place] [address] [phone] 05/19/2018 Cardiac Studies Cardiology , [facility] [address] [place] [address] [phone] 08/22/2018 Cardiac Studies Cardiology , [facility] [address] [place] [address] [phone] Health Maintenance Due Date Last Done Comments PNEUMOCOCCAL ADULT 65 YRS AN D OVER (1 of 2 - PCV13) 1999 *ADVANCE DIRECTIVE NOT ON FILE 11/22/2014 *DEPRESSION SCREENING, MENDEZUA Beba FOR PTS 18 AND OVER 12/02/2014 DIABETES SCREEN EVERY 3 YRS- AGE 45 AND ABOVE 09/21/2020 09/21/2017, 11/25/2016, 10/27/2016, Additional history exists TETANUS EVERY 10 YEARS-TDAP (BOOSTRIX OR ADACEL) SUGGESTED IF NOT RECEIVED IN THE PAST. 07/29/2027 07/29/2017 Influenza Vaccine (FLU shot) Completed 07/29/2017, 08/08/2012 as of this encounter Implants Not on fileas of this encounter Results * INR FINGERSTICK (11/16/2017 11:06 AM) Component Value Ref Range FINGERSTICK INR 2.9 INR THERAPEUTIC RANGE Comment: Therapeutic ranges for non-operative patients: Prophylaxsis/treatment of DVT: (Range:2.0-3.0) Treatment of pulmonary embolism:(Range:2.0-3.0) Prevention of systemic embolism from: -tissue heart valves -acute myocardial infarction -valvular heart disease -atrial fibrillation (Range: 2.0-3.0) Mechanical prosthetic valves: (Range: 2.5-3.5) Specimen Performing Laborator y [facility] [address] [place] [address] in this encounter Visit Diagnoses Diagnosis Paroxysmal atrial fibrillati on (HCC) - Primary Atrial fibrillation ST elevation myocardial infa rction (STEMI), unspecified artery (HCC) Anticoagulation management e ncounter Encounter for therapeutic drug monitoring halfway 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 ant icoagulant therapy in this encounter Insurance Payer Benefit Plan / Group Subscriber ID Type Phone Address MEDICARE MEDICARE A AND B [id number] Medicare [place] BLUE SHIELD FEDERAL BLUE SHIELD [id number] [facility] [id number] as of this encounter
--- OUTSIDE RECORDS SUMMARY | 2023-09-08 00:57 | External Medical Summary | Summary of Care ---
Author Name Unknown Organization [place] [address] Phone Care Team Providers Care Crew Car Driver Name Role Phone Hank Oshea MD Primary Care Provider [phone] Reason for Visit * Reason Comments HOSPITAL FOLLOW-UP Encounter Details Date Type Department Care Team Description 03/30/2018 Pharmacy Pharmacy, [facility] [address] [facility] [place] [address] Sp, [facility] [address] [facility] [place] [address] [phone] GA (myocardial infarction) (HCC)*;Atrial fibrillation (HCC) Allergies No Known Allergiesas of [...] (HCC) 01/06/2013 CAD (coronary artery disease) 07/25/2012 GA (myocardial infarction) ([facility]) 012 as of this encounter Immunizations Name [...] this encounter Progress Notes * Luiza Nguyen, [facility] - 03/30/2018 2:31 PM EDT Formatting of this note may be different from the original. Patient Phone Numbers Patient admitted to [facility] on 03/26 for celllulitis. INR on admission was 2.4. Coumadin doses starting03/27 were: 5mg daily. Patient also received doxycycline on discharge. Patient was discharged 03/29 following INR of 1.8 with instructions to take Coumadin at [facility] dose of 10mg Fridays, 5 mg all other days. INR on 03/31. Luiza Masters, Pharm D, BCACP Clinical Pharmacist Medication Therapy Management Clinic 03/30/2018, 2:31 PM * Gabriela Pritchard, KEITH - 03/30/2018 10:41 AM EDT called to schedule a f/s for patient tomorrow at request of [facility] - he was discharged to home yesterday and told to have his INR checked by . Please review. in this encounter Plan of Treatment Upcoming Encounters Date Type Specialty Care Team Description 03/30/2018 Pharmacy Pharmacy [facility] [address] [place] [address] [phone] GA (myocardial infarction) (HCC)*;Atrial fibrillation (HCC) 03/31/2018 Pharmacy Pharmacy [place], Coag Clinic Scenery [address] [place] [address] 05/19/2018 Cardiac Studies Cardiology , Remote Cardiac Devices [address] [facility] [place] [address] [phone] 08/22/2018 Cardiac Studies Cardiology , [facility] Card[facility] [address] [facility] [place] [address] [phone] 11/24/2018 Office Visit Cardiology Denis Langston MD [address] [place] [address] [phone] Health Maintenance Due Date Last Done Comments [...] fileas of this encounter Visit Diagnoses Diagnosis GA (myocardial infarction) ( HCC) - Primary Acute myocardial infarction, unspecified site, episode of care unspecified Atrial fibrillation (HCC) Atrial fibrillation in this encounter
--- OUTSIDE RECORDS SUMMARY | 2023-09-08 00:57 | External Medical Summary ---
Author Name Unknown Address Unknown Organization R:IT USE ONLY!!! Laboratory Report Ordering Provider Test Date Status DOV JORGE 01/11/2018 11:30:00 Final Observation Date Value Abnormality Reference Status INR in Capillary blood by Coagulation assay 01/11/2018 11:30 3.0 Final Days in therapeutic INR range/Days INR result determined [Ratio] 01/11/2018 11:30 Final Therapeutic ranges for non-o perative patients: Prophylaxsis/treatment of DVT: (Range:2.0-3.0) Treatment of pulmonary embolism:(Range:2.0-3.0) Prevention of systemic embolism from: -tissue heart valves -acute myocardial infarction -valvular heart disease -atrial fibrillation (Range: 2.0-3.0) Mechanical prosthetic valves: (Range: 2.5-3.5) Performing Location IT USE ONLY!!!
--- OUTSIDE RECORDS SUMMARY | 2023-09-08 00:57 | External Medical Summary | Summary of Care ---
Author Name Unknown Organization [place] [address] Phone Care Team Providers Care Cloud Subject Matter Expert Name Role Phone Hank Oshea MD Primary Care Provider [phone] Reason for Visit * Reason Comments Dosage Adjustment In Person (Anticoag Cl inic) Encounter Details Date Type Department Care Team Description 12/14/2017 Pharmacy Pharmacy, [facility] [address] 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 therapy Allergies [...] (HCC) 01/06/2013 CAD (coronary artery disease) 07/25/2012 [place] (myocardial infarction) 07/25/2012 as of this encounter [...] encounter Progress Notes * Anibal Mcfarland, [facility] - 12/14/2017 11:02 AM EST Formatting of this note may [...] vitamin K intake decreased since last follow-up Most recent CBC: CBC [...] (fL) 09/21/17 11:06A 09/21/17 10.4 F INR: 3.9 Target range: 2.0-3.0 Recommendations: Skip today's dose then resume the current dose of warfarin 10mg F, 5mg all other days (5mg tabs) Follow-up: Patient to repeat PT/INR in 4 week(s). Anibal Caceres, RPтатьяна, CDE, CACP Clinical Pharmacist Medication Therapy Disease Management 12/14/2017, 11:02 AM in this encounter Plan of Treatment Upcoming Encounters Date Type Specialty Care Team Description 12/14/2017 Pharmacy [facility] [address] [place] [address] Paroxysmal atrial fibrillation (HCC)*;ST elevation myocardial infarction (STEMI), unspecified artery (HCC);Anticoagulation management encounter;shelter 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 therapy 01/11/2018 Pharmacy Pharmacy [place] [address] [place] [address] 02/14/2018 Cardiac Studies Cardiology [facility] [place] [address] [place] [address] [phone] 03/21/2018 Office Visit Cardiology Wilmar Lay PA-C [address] [place], [place] [address] [phone] 05/19/2018 Cardiac Studies Cardiology [facility] [address] [place] [address] [phone] 08/22/2018 Cardiac Studies Cardiology [facility] [address] [place] [address] [phone] Health Maintenance Due Date Last Done Comments [...] of this encounter Results * INR FINGERSTICK (12/14/2017 11:08 AM) Component Value Ref Range FINGERSTICK INR 3.9 INR THERAPEUTIC RANGE Comment: Therapeutic ranges for non-operative patients: Prophylaxsis/treatment of DVT: (Range:2.0-3.0) Treatment of pulmonary embolism:(Range:2.0-3.0) Prevention of systemic embolism from: -tissue heart valves -acute myocardial infarction -valvular heart disease -atrial fibrillation (Range: 2.0-3.0) Mechanical prosthetic valves: (Range: 2.5-3.5) Specimen Performing Laborator y [facility] [address] [facility] [place], [place] [address] in this encounter Visit Diagnoses Diagnosis Paroxysmal atrial fibrillati on (HCC) - Primary Atrial fibrillation ST elevation myocardial infa rction (STEMI), unspecified artery (HCC) Anticoagulation management e ncounter Encounter for therapeutic drug monitoring shelter 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 ant icoagulant therapy in this encounter Insurance Payer Benefit Plan / Group Subscriber ID Type Phone Address MEDICARE MEDICARE A AND B [id number] Medicare [place] BLUE SHIELD FEDERAL BLUE SHIELD [id number] [facility] [id number] as of this encounter
--- OUTSIDE RECORDS SUMMARY | 2023-09-08 00:57 | External Medical Summary ---
Author Name Unknown Address [address] [place] [address] Phone Organization K09:[facility] [address] [place] [address] Laboratory Report Ordering Provider Test Date Status DOV JORGE 01/11/2018 11:41:00 Final Observation Date Value Abnormality Reference Status Fasting status - Reported 01/11/2018 11:43 0 Final Triglyceride 01/11/2018 17:24 79 <200 Final TRIGLYCERIDE REFERENCE RANGE S (mg/dL) <150 NORMAL 150-199 BORDERLINE HIGH 200- 499 HIGH >499 VERY HIGH Cholesterol 01/11/2018 17:24 133 <200 F inal TOTAL CHOLESTEROL REFERENCE RANGES(mg/dL) <200 DESIRABLE 200-239 BORDERLINE HIGH >239 HIGH HDL 01/11/2018 17:24 49 >39 Fin al HDL CHOLESTEROL REFERENCE RA NGES(mg/dL) <40 LOW(UNDESIRABLE) >59 HIGH(DESIRABLE) Cholesterol / HDL ratio 01/11/2018 17:24 2.7 Final LDL, (calculated) 01/11/2018 17:24 68 0-129 Final LDL CHOLESTEROL REFERENCE RA NGES(mg/dL) <100 OPTIMAL GOAL FOR HIGH RISK PATIENTS 100-129 NEAR OR ABOVE NORMAL 130-159 BORDERLINE HIGH 160-189 HIGH >189 VERY HIGH Performing Location [facility] [address] [place] [address]
--- OUTSIDE RECORDS SUMMARY | 2023-09-08 00:58 | External Medical Summary | Summary of Care ---
Author Name Unknown Organization [place] [address] Phone Care Team Providers Care Gusset Maker Name Role Phone Hank Oshea MD Primary Care Provider [phone] Reason for Visit * Reason Comments Dosage Adjustment In Person (Anticoag Cl inic) Encounter Details Date Type Department Care Team Description 09/21/2017 Pharmacy Pharmacy, [facility] [address] [facility] [place] [address] [place] [facility] [address] [place] [address] Paroxysmal atrial fibrillation (HCC)*;ST elevation myocardial infarction (STEMI), unspecified artery (HCC);Anticoagulation management encounter;FPC 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 therapy Allergies No Known Allergiesas of this encounter Medications Prescription Sig. Disp. Refills Start Date End Date Status VITAMIN D 2000 UNITS PO TABS one tablet daily Active nitroglycerin (NITROSTAT) 0.4 MG SUBLIndications:Rascon ry artery disease involving [place] coronary artery of [place] heart without angina pectoris,Myocardial infarction involving other [...] anti-coag clinic 110 Tab 3 02/18/2017 Active rosuvastatin (CRESTOR) 5 MG TabletIndications:Hear t failure, systolic, due to CAD (HCC),Ischemic cardiomyopathy,AICD (automatic cardioverter/defibrill ator) present,CAD (coronary artery disease) Take 1 Tab by mouth every other day. 45 Tab 3 02/18/2017 Active clopidogrel (PLAVIX) 75 [...] mouth daily. 90 Tab 3 09/13/2017 Active as of this encounter Active Problems Problem Noted Date AICD (automatic cardioverter/defibrillat or) present 02/10/2013 Heart failure, systolic, due to CAD (HCC ) 01/06/2013 Ischemic cardiomyopathy 01/06/2013 Atrial fibrillation (HCC) 01/06/2013 CAD (coronary artery disease) 07/25/2012 ID (myocardial infarction) 07/25/2012 as of this encounter [...] Progress Notes * Anibal Mcfarland RP - 09/21/2017 11:15 AM EST Formatting of this note may be different from the original. Medication Therapy Disease Management - Anticoagulation Lucian Larson Jr. is an 81 year old [...] Boris Dt/Tm Resulted Value Status WBC (K/uL) 06/30/16 10:59A 06/30/16 7.44 F RBC (M/uL) 06/30/16 10:59A 06/30/16 4.33* F HGB (g/dL) 06/30/16 10:59A 06/30/16 14.0 F HCT (%) 06/30/16 10:59A 06/30/16 41.6 F MCV (fL) 06/30/16 10:59A 06/30/16 96.1 F MCH (pg) 06/30/16 10:59A 06/30/16 32.3 F MCHC (g/dL) 06/30/16 10:59A 06/30/16 33.7 F RDW (%) 06/30/16 10:59A 06/30/16 13.4 F PLATELET COUNT (K/uL) 06/30/16 10:59A 06/30/16 188 F MPV (fL) 06/30/16 10:59A 06/30/16 10.2 F NEUTS (%) 06/30/16 10:59A 06/30/16 62.7 F LYMPHS (%) 06/30/16 10:59A 06/30/16 26.9 F MONOS (%) 06/30/16 10:59A 06/30/16 8.1 F EOS (%) 06/30/16 10:59A 06/30/16 2.2 F BASOS (%) 06/30/16 10:59A 06/30/16 0.1 F ABS. NEUTS (K/uL) 06/30/16 10:59A 06/30/16 4.67 F ABS. LYMPHS (K/uL) 06/30/16 10:59A 06/30/16 2.00 F ABS. MONOS (K/uL) 06/30/16 10:59A 06/30/16 0.60 F ABS. EOS (K/uL) 06/30/16 10:59A 06/30/16 0.16 F ABS. BASOS (K/uL) 06/30/16 10:59A 06/30/16 0.01 F INR: 2.3 Target range: 2.0-3.0 Intervention: Communication: Patient's present status and/or INR do not dictate an adjustment in warfarin dosage at this time, however, counseled patient concerning the need to communicate any medication/diet/health status changes, recent hospitalizations, or upcoming procedure so Anticoagulation Clinic can manage his warfarin therapy safely and appropriately. Recommendations: Continue 10mg F, 5mg all other days (5mg tabs) Follow-up: Patient to repeat PT/INR in 4 week(s). Patient is aware to contact clinic prior to the next scheduled follow-up with any questions, concerns, or any changes in health status. 5 minutes spent reviewing chart. 10 minutes spent counseling patient Anibal Caceres, RPh, CDE, CACP Clinical Pharmacist Medication Therapy Disease Management 09/21/2017, 11:08 AM in this encounter Plan of Treatment Upcoming Encounters Date Type Specialty Care Team Description 10/19/2017 Pharmacy Pharmacy [facility] [address] [facility] [address] 11/10/2017 Cardiac Studies Cardiology [facility] [address] [place] [address] [phone] 02/14/2018 Cardiac Studies Cardiology [facility] [place] [address] [place] [address] [phone] 03/21/2018 Office Visit Cardiology Denis Langston MD [address] [place] [address] [phone] 05/19/2018 Cardiac Studies Cardiology [facility] [address] [place] [address] [phone] 08/22/2018 Cardiac Studies Cardiology [facility] [address] [place] [address] [phone] Health Maintenance Due Date Last Done Comments PNEUMOCOCCAL ADULT 65 YRS AN D OVER ( 2 - PCV13) 1999 *ADVANCE DIRECTIVE NOT ON FILE 11/22/2014 *DEPRESSION SCREENING, KRYSTYNA Yoder FOR PTS 18 AND OVER 12/02/2014 DIABETES SCREEN EVERY 3 YRS- AGE 45 AND ABOVE 11/25/2019 11/25/2016, 10/27/2016, 06/30/2016, Additional history exists TETANUS EVERY 10 YEARS-TDAP [...] e ncounter Encounter for therapeutic drug monitoring termite exterminator helper 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 ant icoagulant therapy in this encounter Insurance Payer Benefit Plan / Group Subscriber ID Type Phone Address MEDICARE MEDICARE A AND B [id number] Medicare [place] BLUE [place] FEDER[employer] BLUE SHIELD [id number] [facility] [id number] as of this encounter
--- OUTSIDE RECORDS SUMMARY | 2023-09-08 00:58 | External Medical Summary | Summary of Care ---
Author Name Unknown Organization [place] [address] Phone Care Team Providers Care Packer Inspector Name Role Phone Hank Oshea MD Primary Care Provider [phone] Reason for Visit * Reason Comments ADVICE Encounter Details Date Type Department Care Team Description 10/06/2017 Telephone Cardiology, [facility] [address] [facility] [place] [address] Denis Langston MD 132 [facility] [place] [id number] ADVICE Allergies No Known Allergiesas of this encounter Medications Prescription Sig. Disp. Refills Start Date End Date Status VITAMIN D 2000 UNITS PO TABS one tablet daily Active nitroglycerin (NITROSTAT) 0.4 MG SUBLIndications:Rascon ry artery disease involving [place] coronary artery of [...] (HCC) 01/06/2013 CAD (coronary artery disease) 07/25/2012 [place] (myocardial infarction) 07/25/2012 as of this encounter [...] as of this encounter Miscellaneous Notes * Addendum Note - Marquis Freitas LPN - 10/06/2017 4:55 PM EST Addended by: MARQUIS FREITAS on: 10/06/2017 04:55 PM Modules accepted: Orders * Telephone Encounter - Marquis Freitas LPN - 10/06/2017 4:54 PM EST Spoke with pt and provided the information below Pt agreeable Order pended as historical * Telephone Encounter - Denis Langsotn MD - 10/06/2017 4:23 PM EST Restart Crestor at 5 mg 3 days per week. Coenzyme Q10 100 mg p.o. q.day * Telephone Encounter - Yina Elizondo RN - 10/06/2017 4:01 PM EST See information below. Improvement noted with holding Crestor recently. Asking if needing to restart at lower dose or alternative. Also asking if OK to take vitamin b12. * Telephone Encounter - Stephon Jenna Taras, KEITH - 10/06/2017 1:07 PM EST Pt called into the office, stating he had been having back and leg pain so Dr. Langston recommended hestop taking Crestor for 3 weeks to see if he noticed any difference. Pt states it has been 3 weeks and he is feeling better. Pt is asking if he should just completely stop taking the Crestor and try something else or if it is okay to just continue to not take it. Pt also asking if it would be okay for him to take a B12 supplement. Pt states he has several family members that take B12 supplements that seem to help with their pain, so if Dr. Langston is okay with this, he would like to try this too. Please advise and return call to pt. in this encounter Plan of Treatment Upcoming Encounters Date Type Specialty Care Team Description 10/19/2017 Pharmacy Pharmacy [place], [facility] [address] [facility], [place] [address] 11/10/2017 Cardiac Studies Cardiology , [facility] [address] [place] [address] [phone] 02/14/2018 Cardiac Studies Cardiology [facility], [facility] [place] [address] [place] [address] [phone] 03/21/2018 Office Visit Cardiology Denis Langston MD [address] [place] [address] [phone] 05/19/2018 Cardiac Studies Cardiology [facility] [address] [place] [address] [phone] 08/22/2018 Cardiac Studies Cardiology [facility] [address] [place] [address] [phone] Health Maintenance Due Date Last Done Comments [...] Coronary atherosclerosis of unspecified type of vessel, [place] or graft in this encounter Insurance Payer Benefit Plan / Group Subscriber ID Type Phone Address MEDICARE MEDICARE A AND B [id number] Medicare [place] BLUE [place]IELD FEDERAL BLUE SHIELD [id number] [facility] [id number] as of this encounter
--- OUTSIDE RECORDS SUMMARY | 2023-09-08 00:58 | External Medical Summary | Summary of Care ---
Author Name Unknown Organization [place] [address] Phone Care Team Providers Care Food Bagging Machine Operator Name Role Phone Hank Oshea MD Primary Care Provider [phone] Reason for Visit * Reason Comments ADVICE Encounter Details Date Type Department Care Team Description 10/06/2017 Telephone Cardiology, [facility] 132 [facility] [place] [address] Denis Langston MD 132 [facility] [place] [id number] ADVICE Allergies No Known Allergiesas of this encounter Medications Prescription Sig. Disp. Refills Start Date End Date Status VITAMIN D 2000 UNITS PO TABS one tablet daily Active nitroglycerin (NITROSTAT) 0.4 MG SUBLIndications:Rascon ry artery disease involving [place] coronary artery of [place] heart without angina pectoris,Myocardial infarction involving other [...] artery disease) 07/25/2012 [place] (myocardial infarction) 07/25/2012 as of this encounter [...] Telephone Encounter - Denis Langston MD - 10/06/2017 4:23 PM EST Restart [...] take vitamin b12. * Telephone Encounter - Jenna Szymanski OSA - 10/06/2017 1:07 PM EST Pt called [...] Specialty Care Team Description 10/19/2017 Pharmacy Pharmacy [place] [address] [place] [address] 11/10/2017 Cardiac Studies Cardiology [facility] [address] [place] [address] [phone] 02/14/2018 Cardiac Studies Cardiology [facility] [place] [address] [place] [address] [phone] 03/21/2018 Office Visit Cardiology Denis Langston MD [address] [place] [address] [phone] 05/19/2018 Cardiac Studies Cardiology [facility] [address] [place] [address] [phone] 08/22/2018 Cardiac Studies Cardiology , [facility] [address] [place] [address] [phone] Health Maintenance Due Date Last Done Comments PNEUMOCOCCAL ADULT 65 YRS AN D OVER (1 of 2 - PCV13) 1999 *ADVANCE DIRECTIVE NOT ON FILE 11/22/2014 *DEPRESSION SCREENINGKRYSTYNA FOR PTS 18 AND OVER 12/02/2014 DIABETES SCREEN EVERY 3 YRS- AGE 45 AND ABOVE 09/21/2020 09/21/2017, 11/25/2016, 10/27/2016, Additional history exists TETANUS EVERY 10 YEARS-TDAP (BOOSTRIX OR ADACEL) SUGGESTED IF NOT RECEIVED IN THE PAST. 07/29/2027 07/29/2017 Influenza Vaccine (FLU shot) Completed 07/29/2017, 08/08/2012 as of this encounter Implants Not on fileas of this encounter Insurance Payer Benefit Plan / Group Subscriber ID Type Phone Address MEDICARE MEDICARE A AND B [id number] Medicare [place] BLUE [place] FEDERAL BLUE SHIELD [id number] [facility] [id number] as of this encounter
--- OUTSIDE RECORDS SUMMARY | 2023-09-08 00:58 | External Medical Summary | Summary of Care ---
Author Name Unknown Organization [place] [address] Phone Care Team Providers Care Vice President Of Academic Affairs Name Role Phone Hank Oshea MD Primary Care Provider [phone] Reason for Visit * Reason Comments Dosage Adjustment In Person (Anticoag Cl inic) Encounter Details Date Type Department Care Team Description 10/19/2017 Pharmacy Pharmacy, [facility] [address] [facility] [place] [address] [place] [facility] [address] [place] [address] Paroxysmal atrial fibrillation (HCC)*;ST elevation myocardial infarction (STEMI), unspecified artery (HCC);Anticoagulation management encounter;intermediate designer 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 therapy Allergies No Known Allergiesas of this encounter Medications Prescription Sig. Disp. Refills Start Date End Date Status VITAMIN D 2000 UNITS PO TABS one tablet daily Active nitroglycerin (NITROSTAT) 0.4 MG SUBLIndications:Rascon ry artery disease involving [place] [...] this encounter Progress Notes * Anibal Mcfarland [facility] - 10/19/2017 11:15 AM EST Formatting of this note [...] 10.4 F INR: 2.9 Target range: 2.0-3.0 Intervention: Communication: Patient's present [...] 10 minutes spent counseling patient Anibal Caceres, RPтатьяна, CDE, CACP Clinical Pharmacist Medication Therapy Disease Management 10/19/2017, 11:10 AM in this encounter Plan of Treatment Upcoming Encounters Date Type Specialty Care Team Description 11/10/2017 Cardiac Studies Cardiology [facility] [address] [place] [address] [phone] 11/16/2017 Pharmacy Pharmacy [place], [facility] [address] [place] [address] 02/14/2018 Cardiac Studies Cardiology [place] [place] [address] [place] [address] [phone] 03/21/2018 Office Visit Cardiology Denis Langston MD [address] [place] [address] [phone] 05/19/2018 Cardiac Studies Cardiology [facility] [address] [place] [address] [phone] 08/22/2018 Cardiac Studies Cardiology , [facility] [address] [place] [address] [phone] Health Maintenance Due Date Last Done Comments [...] of this encounter Results * INR FINGERSTICK (10/19/2017 11:16 AM) Component Value Ref Range FINGERSTICK INR 2.9 INR THERAPEUTIC RANGE Comment: Therapeutic ranges for non-operative patients: Prophylaxsis/treatment of DVT: (Range:2.0-3.0) Treatment of pulmonary embolism:(Range:2.0-3.0) Prevention of systemic embolism from: -tissue heart valves -acute myocardial infarction -valvular heart disease -atrial fibrillation (Range: 2.0-3.0) Mechanical prosthetic valves: (Range: 2.5-3.5) Specimen Performing Laborator y [facility] [address] [place] [address] in this encounter Visit Diagnoses Diagnosis Paroxysmal atrial fibrillati on (HCC) - Primary Atrial fibrillation ST elevation myocardial infa rction (STEMI), unspecified artery (HCC) Anticoagulation management e ncounter Encounter for therapeutic drug monitoring longterm 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 ant icoagulant therapy in this encounter Insurance Payer Benefit Plan / Group Subscriber ID Type Phone Address MEDICARE MEDICARE A AND B [id number] Medicare [place] BLUE SHIELD FEDERAL BLUE SHIELD [id number] [facility] [id number] as of this encounter
--- OUTSIDE RECORDS SUMMARY | 2023-09-08 00:58 | External Medical Summary | Summary of Care ---
Author Name Unknown Organization [place] [address] Phone Care Team Providers Care Butadiene Converter Helper Name Role Phone Hank Oshea MD Primary Care Provider [phone] Reason for Visit * Reason Comments Defibrillator Clinic Encounter Details Date Type Department Care Team Description 11/10/2017 Cardiac Studies Cardiology, [facility] [address] [facility] [place] [address] , Remote Cardiac Devices [address] [facility] [place] [address] [phone] Ischemic cardiomyopathy*;Atria l fibrillation (HCC);AICD (automatic cardioverter/defibril lator) present Allergies No Known Allergiesas of this encounter Medications Prescription Sig. Disp. Refills Start Date End Date Status VITAMIN D 2000 UNITS PO TABS one tablet daily Active nitroglycerin (NITROSTAT) 0.4 MG SUBLIndications:Rascon ry artery disease involving [place] coronary artery of [place] heart without angina pectoris,Myocardial infarction involving other [...] Progress Notes * Sosa Cotter LPN - 11/10/2017 9:53 AM EST HEART RHYTHM DEVICE CLINIC - SINGLE CHAMBER DEFIBRILLATOR TYPE OF VISIT: Remote transmission INDICATION: I25.5 Ischemic cardiomyopathy I50.9, I25.10 Heart failure, systolic, due to cad (hcc) I48.0 Paroxysmal atrial fibrillation (hcc) Z95.810 Aicd (automatic cardioverter/defibrillator) present IMPLANTING PHYSICIAN: Dr. Gonzalez IMPLANT/DEVICE HISTORY: February 02, 2013 CURRENT SYSTEM: ICD: Medtronic, model - Eric II VR [id number] SN: [id number] RV Lead: [employer], Model - 6935 SN: [id number] Implant: 02-02-2013 Abandoned leads: none ALERTS/ADVISORIES: none PATIENT EVALUATION: Symptoms: No dizziness, palpitations, syncope, or presyncope. Pocket evaluation: n/a Intrinsic rhythm: Normal sinus rhythm with intact AV node function. DEVICE EVALUATION: RV Pacing threshold: n/a Capture management: n/a Sensing (mV): 11.4 Pacing impedance (ohms): 551 Percentage paced: 0.4% HVLI: 65 ohms Battery: 3.06v PANCHO: 2.63v Charge time: 9.4 sec Short V-V intervals: 0 Mode switch episodes: Oral anticoagulant therapy: coumadin VT/VF episodes (since last evaluation): 1-lasting 1 sec Past VT/VF episodes: 0 First shock: Most recent shock: Total ICD shocks/ATP therapy: 0 Appropriate shocks: Inappropriate shocks: ATP therapy: FINAL ICD PARAMETERS: Pacemaker mode/rate: VVI, 40 bpm RV Amplitude (V): 2.0 Pulse width (mS): 0.4 VT detection: Off FVT detection: 188-231 bpm (Burst x 1, 25J, 35J x 4) VF detection: >188 bpm (ATP during charging, 25J, 35J x 5) PARAMETER CHANGES: none IMPRESSION: Normal ICD function PLAN: HRDC in January 2018 Chief Guard: Dr. Kian Cotter LPN This patient was interrogated remotely via the Heart Rhythm Device clinic by the device clinic nurse. The device function was found to be normal. No changes were made to the programmed parameters. I have personally reviewed the results of the device evaluation and I agree with the nurse's finding, conclusions and disposition. Denis Lnagston MD in this encounter Plan of Treatment Upcoming Encounters Date Type Specialty Care Team Description 11/16/2017 Pharmacy Pharmacy [place], Coag Clinic Scenery [address] [place] [address] 02/14/2018 Cardiac Studies Cardiology [place], [facility]er [facility] [place] [address] [place] [address] [phone] 03/21/2018 Office Visit Cardiology Wilmar Lay PA-C [address] [place] [address] [phone] 05/19/2018 Cardiac Studies Cardiology [place], Remote Cardiac Devices [address] [place] [address] [phone] 08/22/2018 Cardiac Studies Cardiology [place], Remote Cardiac Devices [address] [place] [address] [phone] Health Maintenance Due Date Last Done Comments [...] Comments DEFIBRILLATOR REMOTE INTERROGATION EVAL/INTERP,TO 90D Routine 11/10/2017 12:00 AM EST Ischemic cardiomyopathy Atrial fibrillation (HCC) AICD (automatic cardioverter/defibri llator) present in this encounter Results * DEFIBRILLATOR REMOTE INTERROGATION EVAL/INTERP,TO 90D (11/10/2017) Impressions HEART RHYTHM DEVICE CLINIC -SINGLE CHAMBER DEFIBRILLATOR TYPE OF VISIT: Remote transmission INDICATION: I25.5 Ischemic cardiomyopathy I50.9, I25.10 Heart failure, systolic, due to cad (hcc) I48.0 Paroxysmal atrial fibrillation (hcc) Z95.810 Aicd (automatic cardioverter/defibrillator) present IMPLANTING PHYSICIAN: Dr. Gonzalez IMPLANT/DEVICE HISTORY: February 02, 2013 CURRENT SYSTEM: ICD: Medtronic, model - Eric II VR [id number] SN:[id number] RV Lead:Medtronic, Model - 6935SN:[id number]:02-02-2013 Abandoned leads: none ALERTS/ADVISORIES: none PATIENT EVALUATION: Symptoms: No dizziness, palpitations, syncope, or presyncope. Pocket evaluation:n/a Intrinsic rhythm: Normal sinus rhythm with intact AV node function. DEVICE EVALUATION: RV Pacing threshold:n/a Capture management:n/a Sensing (mV): 11.4 Pacing impedance (ohms): 551 Percentage paced:0.4% HVLI: 65 ohms Battery: 3.06v PANCHO: 2.63v Charge time: 9.4 sec Short V-V intervals: 0 Mode switch episodes: Oral anticoagulant therapy: coumadin VT/VF episodes (since last evaluation): 1-lasting 1 sec Past VT/VF episodes: 0 First shock: Most recent shock: Total ICD shocks/ATP therapy: 0 Appropriate shocks: Inappropriate shocks: ATP therapy: FINAL ICD PARAMETERS: Pacemaker mode/rate: VVI, 40 bpm RV Amplitude (V):2.0 Pulse width (mS): 0.4 VT detection: Off FVT detection: 188-231 bpm (Burst x 1, 25J, 35J x 4) VF detection: >188 bpm (ATP during charging, 25J, 35J x 5) PARAMETER CHANGES: none IMPRESSION: Normal ICD function PLAN: HRDC in January 2018 Chief Guard: Dr. Kian Cotter LPN in this encounter Visit Diagnoses Diagnosis Ischemic cardiomyopathy - Pr imary Other specified forms of chronic ischemic heart disease Atrial fibrillation (HCC) Atrial fibrillation AICD (automatic cardioverter /defibrillator) present Automatic implantable cardiac defibrillator in situ in this encounter Insurance Payer Benefit Plan / Group Subscriber ID Type Phone Address MEDICARE MEDICARE A AND B [id number] Medicare [place] BLUE SHIELD FEDERAL BLUE SHIELD [id number] [facility] [id number] as of this encounter
--- OUTSIDE RECORDS SUMMARY | 2023-09-08 00:58 | External Medical Summary | Summary of Care ---
Author Name Unknown Organization [place] [address] Phone Care Team Providers Care Environmental Test Technician Name Role Phone Hank Oshea MD Primary Care Provider [phone] Reason for Visit * Reason Comments ADVICE Encounter Details Date Type Department Care Team Description 10/06/2017 Telephone Cardiology, [facility] 132 [facility] [place] [address] Wesly Langston MD [facility] [place] [id number] ADVICE Allergies No Known Allergiesas of this encounter Medications Prescription Sig. Disp. Refills Start Date End Date Status VITAMIN D 2000 UNITS PO TABS one tablet daily Active nitroglycerin (NITROSTAT) 0.4 MG SUBLIndications:Cor onary artery disease involving [place] coronary artery of [place] heart without angina pectoris,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 25 Tab 11 07/21/2016 Active carvedilol (COREG) 25 MG TabletIndications:H eart failure, systolic, due to CAD (HCC) Take 0.5 Tabs by mouth 2 times a day. 90 Tab 3 02/18/2017 Active warfarin sodium (COUMADIN) 5 MG TabletIndications:A trial fibrillation (HCC) warfarin 7.5mg SuTh, 5mg all other days or as directed by anti-coag clinic 110 Tab 3 02/18/2017 Active clopidogrel (PLAVIX) 75 MG TabletIndications:A trial fibrillation (HCC) Take 1 Tab by mouth [...] 3 09/13/2017 Active rosuvastatin (CRESTOR) 5 MG TabletIndications:H eart failure, systolic, due to CAD (HCC),Ischemic cardiomyopathy,AICD (automatic cardioverter/defibr illator) present,CAD (coronary artery disease) Take 1 tablet every three days 45 Tab 3 10/06/2017 Active rosuvastatin (CRESTOR) 5 MG TabletIndications:H eart failure, systolic, due to CAD (HCC),Ischemic cardiomyopathy,AICD (automatic cardioverter/defibr illator) present,CAD (coronary artery disease) Take 1 Tab by mouth every other day. 45 Tab 3 02/18/2017 10/06/2017 Discontinued as of this encounter Active Problems Problem Noted Date AICD (automatic cardioverter/defibrillat or) present 02/10/2013 Heart failure, systolic, due to CAD (HCC ) 01/06/2013 Ischemic cardiomyopathy 01/06/2013 Atrial fibrillation (HCC) 01/06/2013 CAD (coronary artery disease) 07/25/2012 [place] (myocardial infarction) 07/25/2012 as of this encounter [...] encounter Miscellaneous Notes * Addendum Note - Wesly Langston MD - 10/06/2017 4:57 PM EST Addended by: WESLY LANGSTON on: 10/06/2017 04:57 PM Modules accepted: Orders * Addendum Note - Marquis Freitas LPN - 10/06/2017 4:55 PM EST Addended by: MARQUIS FREITAS on: 10/06/2017 04:55 PM Modules accepted: Orders * Telephone Encounter - Marquis Freitas, CASING CREW PUSHER - 10/06/2017 4:54 PM EST Spoke with pt and provided the information below Pt agreeable Order pended as historical * Telephone Encounter - Wesly Langston MD - 10/06/2017 4:23 PM EST [...] Pharmacy [facility] Scenery [address] [place] [address] 11/10/2017 Cardiac Studies Cardiology [place], Remote Cardiac Devices [address] [place] [address] [phone] 02/14/2018 Cardiac Studies Cardiology [facility] [place] [address] [place] [address] [phone] 03/21/2018 Office Visit Cardiology Wesly Langston MD [address] [place] [address] [phone] 05/19/2018 Cardiac Studies Cardiology [place], Remote Cardiac Devices [address] [place] [address] [phone] 08/22/2018 Cardiac Studies Cardiology [place], Remote Cardiac Devices [address] [place] [address] [phone] Health Maintenance Due Date Last Done Comments [...] Coronary atherosclerosis of unspecified type of vessel, [place] or graft in this encounter Insurance Payer Benefit Plan / Group Subscriber ID Type Phone Address MEDICARE MEDICARE A AND B [id number] Medicare [place] BLUE SHIELD FEDERAL BLUE SHIELD [id number] [facility] [id number] as of this encounter
--- OUTSIDE RECORDS SUMMARY | 2023-09-08 00:58 | External Medical Summary ---
Author Name Unknown Address Unknown Organization R:IT USE ONLY!!! Laboratory Report Ordering Provider Test Date Status FIDELINA HOBSON [facility] 10/19/2017 11:16:00 Final Observation Date Value Abnormality Reference Status INR in Capillary blood by Coagulation assay 10/19/2017 11:16 2.9 Final Days in therapeutic INR range/Days INR result determined [Ratio] 10/19/2017 11:16 Final Therapeutic ranges for non-o perative patients: Prophylaxsis/treatment of DVT: (Range:2.0-3.0) Treatment of pulmonary embolism:(Range:2.0-3.0) Prevention of systemic embolism from: -tissue heart valves -acute myocardial infarction -valvular heart disease -atrial fibrillation (Range: 2.0-3.0) Mechanical prosthetic valves: (Range: 2.5-3.5) Performing Location IT USE ONLY!!!
--- OUTSIDE RECORDS SUMMARY | 2023-09-08 00:58 | External Medical Summary ---
Author Name Unknown Address Unknown Organization R:IT USE ONLY!!! Laboratory Report Ordering Provider Test Date Status FIDELINA HOBSON [facility] 11/16/2017 11:06:00 Final Observation Date Value Abnormality Reference Status INR in Capillary blood by Coagulation assay 11/16/2017 11:07 2.9 Final Days in therapeutic INR range/Days INR result determined [Ratio] 11/16/2017 11:07 Final Therapeutic ranges for non-o perative patients: Prophylaxsis/treatment of DVT: (Range:2.0-3.0) Treatment of pulmonary embolism:(Range:2.0-3.0) Prevention of systemic embolism from: -tissue heart valves -acute myocardial infarction -valvular heart disease -atrial fibrillation (Range: 2.0-3.0) Mechanical prosthetic valves: (Range: 2.5-3.5) Performing Location IT USE ONLY!!!
--- OUTSIDE RECORDS SUMMARY | 2023-09-08 00:58 | External Medical Summary | Summary of Care ---
Author Name Unknown Organization [place] [address] Phone Care Team Providers Care Power Plant Electrician Name Role Phone Hank Oshea MD Primary Care Provider [phone] Reason for Visit * Reason Comments Defibrillator Clinic Encounter Details Date Type Department Care Team Description 11/10/2017 Cardiac Studies Cardiology, [facility] [address] [facility] [place] [address] , Remote Cardiac Devices [address] [facility] [place] [address] [phone] Ischemic cardiomyopathy*;Atria l fibrillation (HCC);AICD (automatic cardioverter/defibril [...] (HCC) 01/06/2013 CAD (coronary artery disease) 07/25/2012 [place] (myocardial infarction) 07/25/2012 as of this encounter [...] ICD: Medtronic, model - Eric II VR [id number] SN: [id number] RV Lead: CO[employer]Stat[employer]onic, Model - 6935 SN: [id number] Implant: 02-02-2013 Abandoned leads: none ALERTS/ADVISORIES: none [...] ICD function PLAN: HRDC in January 2018 Territory Service Representative: Dr. Kian Cotter LPN This patient was [...] Specialty Care Team Description 11/16/2017 Pharmacy Pharmacy [place], Coag Clinic Scenery [address] [place] [address] 02/14/2018 Cardiac Studies Cardiology [place], Pacer Clinic [place] [address] [place] [address] [phone] 03/21/2018 Office Visit Cardiology Wilmar Lay PA-C [address] [place] [address] [phone] 05/19/2018 Cardiac Studies Cardiology [place], Remote Cardiac Devices [address] [place] [address] [phone] 08/22/2018 Cardiac Studies Cardiology [place], Remote Cardiac Devices [address] [place] [address] [phone] Health Maintenance Due Date Last Done Comments [...] ICD: Medtronic, model - Eric II VR [id number] SN:[id number] RV Lead:Medtronic, Model - 6935SN:[id number]:02-02-2013 Abandoned leads: none ALERTS/ADVISORIES: none PATIENT EVALUATION: [...] ICD function PLAN: HRDC in January 2018 Territory Service Representative: Dr. Kian Cotter LPN in this encounter Visit Diagnoses Diagnosis Ischemic cardiomyopathy - Pr imary Other specified forms of chronic ischemic heart disease Atrial fibrillation (HCC) Atrial fibrillation AICD (automatic cardioverter /defibrillator) present Automatic implantable cardiac defibrillator in situ in this encounter Insurance Payer Benefit Plan / Group Subscriber ID Type Phone Address MEDICARE MEDICARE A AND B [id number] Medicare [place] BLUE SHIELD FEDERAL BLUE SHIELD [id number] [facility] [id number] as of this encounter
--- OUTSIDE RECORDS SUMMARY | 2023-09-08 00:58 | External Medical Summary ---
Author Name Unknown Address Unknown Organization : Laboratory Report Ordering Provider Test Date Status GAVINO JARRELL 09/21/2017 11:12:00 Final Observation Date Value Abnormality Reference Status INR in Capillary blood by Coagulation assay 09/21/2017 11:12 2.3 Final Days in therapeutic INR range/Days INR result determined [Ratio] 09/21/2017 11:12 Final Therapeutic ranges for non-o perative patients: Prophylaxsis/treatment of DVT: (Range:2.0-3.0) Treatment of pulmonary embolism:(Range:2.0-3.0) Prevention of systemic embolism from: -tissue heart valves -acute myocardial infarction -valvular heart disease -atrial fibrillation (Range: 2.0-3.0) Mechanical prosthetic valves: (Range: 2.5-3.5) Performing Location
--- OUTSIDE RECORDS SUMMARY | 2023-09-08 00:58 | External Medical Summary | Summary of Care ---
Author Name Unknown Organization [place] [address] Phone Care Team Providers Care Deputy Court Name Role Phone Hank Oshea MD Primary Care Provider [phone] Reason for Visit * Reason Comments ADVICE Encounter Details Date Type Department Care Team Description 10/06/2017 Telephone Cardiology, [facility] 132 [facility] [place] [address] Denis Langston MD 132 [facility] [place] [id number] ADVICE Allergies No Known Allergiesas of this encounter Medications Prescription Sig. Disp. Refills Start Date End Date Status VITAMIN D 2000 UNITS PO TABS one tablet daily Active nitroglycerin (NITROSTAT) 0.4 MG SUBLIndications:Rascon ry artery disease involving [place] coronary artery of [place] heart without angina pectoris,Myocardial infarction involving other [...] (HCC) 01/06/2013 CAD (coronary artery disease) 07/25/2012 [place] (myocardial infarction) 07/25/2012 as of this encounter [...] [place], Coag Clinic Scenery [address] [place] [address] 11/10/2017 Cardiac Studies Cardiology [place], Remote Cardiac Devices [address] [place] [address] [phone] 02/14/2018 Cardiac Studies Cardiology Isi [facility] [place] [address] [place] [address] [phone] 03/21/2018 Office Visit Cardiology Denis Langston MD [address] [place] [address] [phone] 05/19/2018 Cardiac Studies Cardiology [place], Remote Cardiac Devices [address] [place] [address] [phone] 08/22/2018 Cardiac Studies Cardiology , Remote Cardiac Devices [address] [place] [address] [phone] Health Maintenance Due Date Last Done Comments [...] Phone Address MEDICARE MEDICARE A AND B [id number] Medicare [place] BLUE SHIELD FEDERAL BLUE SHIELD [id number] [facility] [id number] as of this encounter
--- OUTSIDE RECORDS SUMMARY | 2023-09-08 00:58 | External Medical Summary ---
Author Name Unknown Address [address] [place] [address] Phone Organization K09:[facility] [address] [place] [address] Laboratory Report Ordering Provider Test Date Status GAVINO JARRELL 09/21/2017 11:06:00 Final Observation Date Value Abnormality Reference Status WBC, Total 09/21/2017 11:37 7.32 4.00-10.80 F inal RBC 09/21/2017 11:37 4.54 4.50-5.25 Fin al Hemoglobin 09/21/2017 11:37 14.8 14.0-16.8 Fi nal HCT 09/21/2017 11:37 43.9 40.0-48.4 Fin al MCV 09/21/2017 11:37 96.7 82.0-99.5 Fin al MCH 09/21/2017 11:37 32.6 27.0-34.0 Fin al MCHC 09/21/2017 11:37 33.7 32.0-36.0 Fin al RDW 09/21/2017 11:37 14.0 11.5-15.5 Fin al Platelets 09/21/2017 11:37 180 140-400 Fin al MPV 09/21/2017 11:37 10.4 6.6-11.1 Fin al Performing Location [facility] [place] [address] [place] [address]
--- OUTSIDE RECORDS SUMMARY | 2023-09-08 00:59 | External Medical Summary ---
Author Name Unknown Address Unknown Organization : Laboratory Report Ordering Provider Test Date Status FIDELINA HOBSON [facility] 03/02/2017 11:04:00 Final Observation Date Value Abnormality Reference Status INR in Capillary blood by Coagulation assay 03/02/2017 11:04 2.9 Final Days in therapeutic INR range/Days INR result determined [Ratio] 03/02/2017 11:04 Final Therapeutic ranges for non-o perative patients: Prophylaxsis/treatment of DVT: (Range:2.0-3.0) Treatment of pulmonary embolism:(Range:2.0-3.0) Prevention of systemic embolism from: -tissue heart valves -acute myocardial infarction -valvular heart disease -atrial fibrillation (Range: 2.0-3.0) Mechanical prosthetic valves: (Range: 2.5-3.5) Performing Location
--- OUTSIDE RECORDS SUMMARY | 2023-09-08 00:59 | External Medical Summary ---
Author Name Unknown Address Unknown Organization : Laboratory Report Ordering Provider Test Date [facility] 08/24/2017 11:21:00 Final Observation Date Value Abnormality Reference Status INR in Capillary blood by Coagulation assay 08/24/2017 11:19 2.4 Final Days in therapeutic INR range/Days INR result determined [Ratio] 08/24/2017 11:19 Final Therapeutic ranges for non-o perative patients: Prophylaxsis/treatment of DVT: (Range:2.0-3.0) Treatment of pulmonary embolism:(Range:2.0-3.0) Prevention of systemic embolism from: -tissue heart valves -acute myocardial infarction -valvular heart disease -atrial fibrillation (Range: 2.0-3.0) Mechanical prosthetic valves: (Range: 2.5-3.5) Performing Location
--- OUTSIDE RECORDS SUMMARY | 2023-09-08 00:59 | External Medical Summary ---
Author Name Unknown Address [address] [place] [address] [place] [address] Phone Organization K0G:[facility] [place] [address] [place] [address] Laboratory Report Ordering Provider Test Date Status JENNIFER LOPEZ [facility] 10/27/2016 14:26:00 Final Obs # Observation Date Value Abnormality Reference Status Performing Location 0 PT 10/27/2016 15:22 22.9 Above high normal 11.5-14.6 Final [facility] [place] [address] [place] [address] [place] [address] 1 INR 10/27/2016 15:22 2.04 Above high normal 0.82-1.12 Final
--- OUTSIDE RECORDS SUMMARY | 2023-09-08 00:59 | External Medical Summary ---
Author Name Unknown Address 132 [facility] [place] [address] Phone Organization K0G:[facility] 132 [facility] [place] [address] Laboratory Report Ordering Provider Test Date Status SERENE ALICEA 10/27/2016 14:27:00 Final Obs # Observation Date Value Abnormality Reference Status Performing Location 0 Digoxin 10/27/2016 15:35 <0.3 Below low normal 0.5-2.0 Final [facility] [place] Hernandez oods 132 [facility] [place] [address]
--- OUTSIDE RECORDS SUMMARY | 2023-09-08 00:59 | External Medical Summary ---
Author Name Unknown Address Unknown Organization : Laboratory Report Ordering Provider Test Date Status FIDELINA HOBSON [facility] 04/27/2017 11:19:00 Final Observation Date Value Abnormality Reference Status INR in Capillary blood by Coagulation assay 04/27/2017 11:18 2.7 Final Days in therapeutic INR range/Days INR result determined [Ratio] 04/27/2017 11:18 Final Therapeutic ranges for non-o perative patients: Prophylaxsis/treatment of DVT: (Range:2.0-3.0) Treatment of pulmonary embolism:(Range:2.0-3.0) Prevention of systemic embolism from: -tissue heart valves -acute myocardial infarction -valvular heart disease -atrial fibrillation (Range: 2.0-3.0) Mechanical prosthetic valves: (Range: 2.5-3.5) Performing Location
--- OUTSIDE RECORDS SUMMARY | 2023-09-08 00:59 | External Medical Summary ---
Author Name Unknown Address Unknown Organization : Laboratory Report Ordering Provider Test Date Status FIDELINA HOBSON [facility] 03/30/2017 11:34:00 Final Observation Date Value Abnormality Reference Status INR in Capillary blood by Coagulation assay 03/30/2017 11:32 2.4 Final Days in therapeutic INR range/Days INR result determined [Ratio] 03/30/2017 11:32 Final Therapeutic ranges for non-o perative patients: Prophylaxsis/treatment of DVT: (Range:2.0-3.0) Treatment of pulmonary embolism:(Range:2.0-3.0) Prevention of systemic embolism from: -tissue heart valves -acute myocardial infarction -valvular heart disease -atrial fibrillation (Range: 2.0-3.0) Mechanical prosthetic valves: (Range: 2.5-3.5) Performing Location
--- OUTSIDE RECORDS SUMMARY | 2023-09-08 00:59 | External Medical Summary ---
Author Name Unknown Address Unknown Organization : Laboratory Report Ordering Provider Test Date Status FIDELINA HOBSON [facility] 05/25/2017 11:18:00 Final Observation Date Value Abnormality Reference Status INR in Capillary blood by Coagulation assay 05/25/2017 11:16 2.4 Final Days in therapeutic INR range/Days INR result determined [Ratio] 05/25/2017 11:16 Final Therapeutic ranges for non-o perative patients: Prophylaxsis/treatment of DVT: (Range:2.0-3.0) Treatment of pulmonary embolism:(Range:2.0-3.0) Prevention of systemic embolism from: -tissue heart valves -acute myocardial infarction -valvular heart disease -atrial fibrillation (Range: 2.0-3.0) Mechanical prosthetic valves: (Range: 2.5-3.5) Performing Location
--- OUTSIDE RECORDS SUMMARY | 2023-09-08 00:59 | External Medical Summary ---
Author Name Unknown Address Unknown Organization : Laboratory Report Ordering Provider Test Date Status FIDELINA santos 01/05/2017 11:20:00 Fin al Obs # Observation Date Value Abnormality Reference Status Performing Location 0 INR in Capillary blood by Coagulation assay 01/05/2017 11:20 2.3 Final 1 Days in therapeutic INR range/Days INR result determined [Ratio] 01/05/2017 11:20 Final Therapeutic ranges for non-o perative patients:Prophylaxsis/treatment of DVT: (Range:2.0-3.0)Treatment of pulmonary embolism:(Range:2.0-3.0)Prevention of systemic embolism from:-tissue heart valves-acute myocardial infarction-valvular heart disease-atrial fibrillation(Range: 2.0-3.0)Mechanical prosthetic valves: (Range: 2.5-3.5)
--- OUTSIDE RECORDS SUMMARY | 2023-09-08 00:59 | External Medical Summary ---
Author Name Unknown Address Unknown Organization : Laboratory Report Ordering Provider Test Date Status FIDELINA santos 11/11/2016 13:16:00 Fin al Obs # Observation Date Value Abnormality Reference Status Performing Location 0 INR in Capillary blood by Coagulation assay 11/11/2016 13:16 2.3 Final 1 Days in therapeutic INR range/Days INR result determined [Ratio] 11/11/2016 13:16 Final Therapeutic ranges for non-o perative patients:Prophylaxsis/treatment of DVT: (Range:2.0-3.0)Treatment of pulmonary embolism:(Range:2.0-3.0)Prevention of systemic embolism from:-tissue heart valves-acute myocardial infarction-valvular heart disease-atrial fibrillation(Range: 2.0-3.0)Mechanical prosthetic valves: (Range: 2.5-3.5)
--- OUTSIDE RECORDS SUMMARY | 2023-09-08 00:59 | External Medical Summary ---
Author Name Unknown Address Unknown Organization : Laboratory Report Ordering Provider Test Date Status FIDELINA santos 07/31/2016 11:21:00 Fin al Obs # Observation Date Value Abnormality Reference Status Performing Location 0 INR in Capillary blood by Coagulation assay 07/31/2016 11:22 1.7 Final 1 Days in therapeutic INR range/Days INR result determined [Ratio] 07/31/2016 11:22 Final Therapeutic ranges for non-o perative patients:Prophylaxsis/treatment of DVT: (Range:2.0-3.0)Treatment of pulmonary embolism:(Range:2.0-3.0)Prevention of systemic embolism from:-tissue heart valves-acute myocardial infarction-valvular heart disease-atrial fibrillation(Range: 2.0-3.0)Mechanical prosthetic valves: (Range: 2.5-3.5)
--- OUTSIDE RECORDS SUMMARY | 2023-09-08 00:59 | External Medical Summary ---
Author Name Unknown Address [address] [address] Phone Organization [id number]:[facility] Antonella Morrell [address] [place] [address] Laboratory Report Ordering Provider Test Date Status SERENE ALICEA PAC 10/27/2016 14:27:00 Final Obs # Observation Date Value Abnormality Reference Status Performing Location 0 BUN 10/27/2016 15:35 20 6-20 Final G Antonella Morrell [address] [place] [address] 1 Creatinine 10/27/2016 15:35 1.3 Above high normal 0.6-1.2 Final GFR should be used to assess renal function. Plasma/Serum creatinine may not be able to properly reflect renal function in some cases. 2 Sodium 10/27/2016 15:35 142 135-146 Final 3 Potassium 10/27/2016 15:35 4.8 3.5-5.1 Final 4 Cl 10/27/2016 15:35 103 98-107 Final 5 CO2 10/27/2016 15:35 28 22-32 Final 6 Anion gap 10/27/2016 15:35 11 7-15 Final 7 Glucose 10/27/2016 15:35 72 70-120 Final 8 Calcium 10/27/2016 15:35 9.5 8.4-10.2 Final 9 E Glom Filt Rate 10/27/2016 15:35 53.1 Below low norm al >60 Final If patient is [place], multiply estimated GFR by 1.159.
--- OUTSIDE RECORDS SUMMARY | 2023-09-08 00:59 | External Medical Summary ---
Author Name Unknown Address Unknown Organization : Laboratory Report Ordering Provider Test Date Status FIDELINA santos MATILDE INDRA 12/08/2016 11:17:00 Fin al Obs # Observation Date Value Abnormality Reference Status Performing Location 0 INR in Capillary blood by Coagulation assay 12/08/2016 11:16 2.3 Final 1 Days in therapeutic INR range/Days INR result determined [Ratio] 12/08/2016 11:16 Final Therapeutic ranges for non-o perative patients:Prophylaxsis/treatment of DVT: (Range:2.0-3.0)Treatment of pulmonary embolism:(Range:2.0-3.0)Prevention of systemic embolism from:-tissue heart valves-acute myocardial infarction-valvular heart disease-atrial fibrillation(Range: 2.0-3.0)Mechanical prosthetic valves: (Range: 2.5-3.5)
--- OUTSIDE RECORDS SUMMARY | 2023-09-08 00:59 | External Medical Summary ---
Author Name Unknown Address Unknown Organization : Laboratory Report Ordering Provider Test Date Status FIDELINA santos 09/25/2016 11:20:00 Fin al Obs # Observation Date Value Abnormality Reference Status Performing Location 0 INR in Capillary blood by Coagulation assay 09/25/2016 11:20 2.3 Final 1 Days in therapeutic INR range/Days INR result determined [Ratio] 09/25/2016 11:20 Final Therapeutic ranges for non-o perative patients:Prophylaxsis/treatment of DVT: (Range:2.0-3.0)Treatment of pulmonary embolism:(Range:2.0-3.0)Prevention of systemic embolism from:-tissue heart valves-acute myocardial infarction-valvular heart disease-atrial fibrillation(Range: 2.0-3.0)Mechanical prosthetic valves: (Range: 2.5-3.5)
--- OUTSIDE RECORDS SUMMARY | 2023-09-08 00:59 | External Medical Summary | Summary of Care ---
Author Name Unknown Organization [place] [address] Phone Care Team Providers Care Executive Communications Manager Name Role Phone Hank Oshea MD Primary Care Provider Reason for Visit * Reason Comments FOLLOW UP Encounter Details Date Type Department Care Team Description 09/13/2017 Office Visit Cardiology, [facility] [address] [facility] [place] [address] Denis Langston MD [address] [place] [address] [phone] Studies, Nurse Arrival Cardiac, RN [address] [place] [address] Ischemic cardiomyopathy*;Chroni c atrial fibrillation (HCC) Allergies No Known Allergiesas [...] 3 02/18/2017 Active rosuvastatin (CRESTOR) 5 MG TabletIndications:H eart [...] mouth daily. 90 Tab 3 09/13/2017 Active furosemide (LASIX) 20 MG Tablet Take 1 Tab by mouth daily. 90 Tab 3 10/27/2016 09/13/2017 Discontinued digoxin (LANOXIN) 125 mcg Tablet 1 tablet on Wednesday, , Wednesday 34 Tab 5 10/27/2016 09/13/2017 Discontinued ramipril (ALTACE) 2.5 MG Capsule Take 1 Cap by mouth daily. 90 Cap 3 01/21/2017 09/13/2017 Discontinued as of this encounter Active Problems [...] Vital Sign Reading Time Taken Blood Pressure 112/70 09/13/2017 12:54 PM EST Pulse 76 09/13/2017 12:54 PM EST Temperature - - Respiratory Rate 20 09/13/2017 12:5 4 PM EST Oxygen Saturation - - Inhaled Oxygen Concentration - - Weight 82.1 kg (180 lb 14.4 oz) 017 12:54 PM EST Height - - Body Mass Index 26.71 09/13/2017 12:54 PM EST in this encounter Progress Notes * Denis Langston MD - 09/13/2017 12:45 PM EST ,See dictated note on 09/13/2017 Denis Langston MD in this encounter Plan of Treatment Upcoming Encounters Date Type Specialty Care Team Description 09/21/2017 Pharmacy Pharmacy [place], [facility] [address] [address] 11/10/2017 Cardiac Studies Cardiology , [facility] [address] [place] [address] [phone] 02/14/2018 Cardiac Studies Cardiology [facility], [facility] Antonella [address] [place] [address] [phone] 03/21/2018 Office Visit Cardiology Denis Langston MD [address] [place] [address] [phone] 05/19/2018 Cardiac Studies Cardiology , [facility] [address] [address] [phone] 08/22/2018 Cardiac Studies Cardiology , [facility] [address] [place] [address] [phone] Scheduled Tests Name Priority Associated Diagnoses Order S chedule CBC Routine Ischemic cardiomyopathy Chronic atrial fibrillation (HCC) Expected: 09/13/2017 (Approximate), Expires: 12/14/2017 COMPR METAB PANEL Routine Ischemic cardiomyopathy Chronic atrial fibrillation (HCC) Expected: 09/13/2017 (Approximate), Expires: 12/14/2017 Health Maintenance Due Date Last Done Comments PNEUMOCOCCAL ADULT 65 YRS AN D OVER (1 of 2 - PCV13) 1999 TETANUS EVERY 10 YEARS-TDAP (BOOSTRIX OR ADACEL) SUGGESTED IF NOT RECEIVED IN THE PAST. 1999 *ADVANCE DIRECTIVE NOT ON FILE 11/22/2014 *DEPRESSION SCREENING, KRYSTYNA Yoder FOR PTS 18 AND OVER 12/02/2014 Influenza Vaccine (FLU shot) (#1) 2017 012 DIABETES SCREEN EVERY 3 YRS- AGE 45 AND ABOVE 11/25/2019 11/25/2016, 10/27/2016, 06/30/2016, Additional history exists as of this encounter Implants Not on fileas of this encounter Visit Diagnoses Diagnosis Ischemic cardiomyopathy - Pr imary Other specified forms of chronic ischemic heart disease Chronic atrial fibrillation (HCC) Atrial fibrillation in this encounter Insurance Payer Benefit Plan / Group Subscriber ID Type Phone Address MEDICARE MEDICARE A AND B [id number] Medicare [place], [place] BLUE SHIELD [employer] BLUE [employer]IELD [id number] [facility] [id number] as of this encounter
--- OUTSIDE RECORDS SUMMARY | 2023-09-08 00:59 | External Medical Summary ---
Author Name Unknown Address [address] [address] [address] Phone Organization K09:[facility] e [address] [place] [address] Laboratory Report Ordering Provider Test Date Status GAVINO JARRELL 09/21/2017 11:06:00 Final Observation Date Value Abnormality Reference Status BUN 09/21/2017 12:42 19 6-20 Fin al Creatinine 09/21/2017 12:42 1.2 0.6-1.2 Fi nal GFR should be used to assess renal function. Plasma/Serum creatinine may not be able to properly reflect renal function in some cases. Sodium 09/21/2017 12:42 141 135-146 Fin al Potassium 09/21/2017 12:42 4.9 3.5-5.1 Fin al Cl 09/21/2017 12:42 103 98-107 Fin al CO2 09/21/2017 12:42 27 22-32 Fin al Anion gap 09/21/2017 12:42 11 7-15 Fin al Glucose 09/21/2017 12:42 77 70-120 Fin al Albumin 09/21/2017 12:42 4.2 3.8-5.0 Fin al AST (Aspartate aminotransferase) 09/21/2017 12:42 19 10-50 Final Alk Phos 09/21/2017 12:42 73 0-153 Fin al Bilirubin, Total 09/21/2017 12:42 0.7 0-1.2 Final Calcium 09/21/2017 12:42 9.8 8.4-10.2 Fin al Protein 09/21/2017 12:42 7.5 6.0-8.3 Fin al ALT (Alanine aminotransferase) 09/21/2017 12:42 11 10-50 Final E Glom Filt Rate 09/21/2017 12:42 57.7 Below low normal >60 Final If patient is [place], multiply estimated GFR by 1.159. Performing Location [facility] [address] [place] [address]
--- OUTSIDE RECORDS SUMMARY | 2023-09-08 00:59 | External Medical Summary ---
Author Name Unknown Address Unknown Organization : Laboratory Report Ordering Provider Test Date Status FIDELINA HOBSON [facility] 02/02/2017 11:18:00 Final Observation Date Value Abnormality Reference Status INR in Capillary blood by Coagulation assay 02/02/2017 11:16 2.5 Final Days in therapeutic INR range/Days INR result determined [Ratio] 02/02/2017 11:16 Final Therapeutic ranges for non-o perative patients: Prophylaxsis/treatment of DVT: (Range:2.0-3.0) Treatment of pulmonary embolism:(Range:2.0-3.0) Prevention of systemic embolism from: -tissue heart valves -acute myocardial infarction -valvular heart disease -atrial fibrillation (Range: 2.0-3.0) Mechanical prosthetic valves: (Range: 2.5-3.5) Performing Location
--- OUTSIDE RECORDS SUMMARY | 2023-09-08 00:59 | External Medical Summary ---
Author Name Unknown Address Unknown Organization : Laboratory Report Ordering Provider Test Date Status FIDELINA HOBSON [facility] 07/27/2017 13:21:00 Final Observation Date Value Abnormality Reference Status INR in Capillary blood by Coagulation assay 07/27/2017 13:20 2.5 Final Days in therapeutic INR range/Days INR result determined [Ratio] 07/27/2017 13:20 Final Therapeutic ranges for non-o perative patients: Prophylaxsis/treatment of DVT: (Range:2.0-3.0) Treatment of pulmonary embolism:(Range:2.0-3.0) Prevention of systemic embolism from: -tissue heart valves -acute myocardial infarction -valvular heart disease -atrial fibrillation (Range: 2.0-3.0) Mechanical prosthetic valves: (Range: 2.5-3.5) Performing Location
--- OUTSIDE RECORDS SUMMARY | 2023-09-08 00:59 | External Medical Summary ---
Author Name Unknown Address [address] [address] Phone Organization K09:[facility] [address] [place] [address] Laboratory Report Ordering Provider Test Date Status SERENE ALICEA PAC 11/25/2016 11:07:00 Final Obs # Observation Date Value Abnormality Reference Status Performing Location 0 BUN 11/25/2016 12:29 17 6-20 Final [place] [facility] [place] [address] [place] [address] 1 Creatinine 11/25/2016 12:29 1.3 Above high normal 0.6-1.2 Final GFR should be used to assess renal function. Plasma/Serum creatinine may not be able to properly reflect renal function in some cases. 2 Sodium 11/25/2016 12:29 141 135-146 Final 3 Potassium 11/25/2016 12:29 4.5 3.5-5.1 Final 4 Cl 11/25/2016 12:29 103 98-107 Final 5 CO2 11/25/2016 12:29 28 22-32 Final 6 Anion gap 11/25/2016 12:29 10 7-15 Final 7 Glucose 11/25/2016 12:29 88 70-120 Final 8 Calcium 11/25/2016 12:29 9.0 8.4-10.2 Final 9 E Glom Filt Rate 11/25/2016 12:29 53.1 Below low norm al >60 Final If patient is [place], multiply estimated GFR by 1.159.
--- OUTSIDE RECORDS SUMMARY | 2023-09-08 00:59 | External Medical Summary ---
Author Name Unknown Address Unknown Organization : Laboratory Report Ordering Provider Test Date Status FIDELINA HOBSON [facility] 06/25/2017 11:22:00 Final Observation Date Value Abnormality Reference Status INR in Capillary blood by Coagulation assay 06/25/2017 11:21 2.0 Final Days in therapeutic INR range/Days INR result determined [Ratio] 06/25/2017 11:21 Final Therapeutic ranges for non-o perative patients: Prophylaxsis/treatment of DVT: (Range:2.0-3.0) Treatment of pulmonary embolism:(Range:2.0-3.0) Prevention of systemic embolism from: -tissue heart valves -acute myocardial infarction -valvular heart disease -atrial fibrillation (Range: 2.0-3.0) Mechanical prosthetic valves: (Range: 2.5-3.5) Performing Location
--- OUTSIDE RECORDS SUMMARY | 2023-09-08 01:00 | External Medical Summary ---
Author Name Unknown Address [address] [facility] [place] [address] Phone Organization K09:[facility] [address] [facility] [place] [address] Laboratory Report Ordering Provider Test Date Status DOV JORGE MD [id number] Final Obs # Observation Date Value Abnormality Reference Status Performing Location 0 BUN [id number] 16 6-20 Final [facility] [address] [facility] [place] [address] 1 Creatinine [id number] 1.2 0.7-1.[address] [place] [address] GFR should be used to assess renal function. Plasma/Serum creatinine may not be able to properly reflect renal function in some cases. 2 Sodium 152804799905 140 135-[address] [place] [address] GFR should be used to assess renal function. Plasma/Serum creatinine may not be able to properly reflect renal function in some cases. 3 Potassium 597813639962 4.8 3.5-5.1 Final [facility] [address] [facility] [place] [address] GFR should be used to assess renal function. Plasma/Serum creatinine may not be able to properly reflect renal function in some cases. 4 Cl 982524647965 103 98-[address] [place] [address] GFR should be used to assess renal function. Plasma/Serum creatinine may not be able to properly reflect renal function in some cases. 5 CO2 943801802841 27 22-[address] [place] [address] GFR should be used to assess renal function. Plasma/Serum creatinine may not be able to properly reflect renal function in some cases. 6 Anion gap 700567835660 10 7-15 Final [facility] [address] [facility] [place] [address] GFR should be used to assess renal function. Plasma/Serum creatinine may not be able to properly reflect renal function in some cases. 7 Glucose 233093803386 99 70-[address] [place] [address] GFR should be used to assess renal function. Plasma/Serum creatinine may not be able to properly reflect renal function in some cases. 8 Albumin [Mass/volume ] in Serum or Plasma by Bromocresol green (BCG) dye binding method [id number] 4.2 3.8-5.[address] [place] [address] GFR should be used to assess renal function. Plasma/Serum creatinine may not be able to properly reflect renal function in some cases. 9 AST (Aspartate aminotransferase) 979981723192 24 10-[address] [place] [address] GFR should be used to assess renal function. Plasma/Serum creatinine may not be able to properly reflect renal function in some cases. 10 Alk Phos 119593464450 72 0-[address] [place] [address] GFR should be used to assess renal function. Plasma/Serum creatinine may not be able to properly reflect renal function in some cases. 11 Bilirubin, Total 258740947075 0.7 0-1.[address] Fi [address] [place] [address] GFR should be used to assess renal function. Plasma/Serum creatinine may not be able to properly reflect renal function in some cases. 12 Calcium 335226711581 9.4 8.3-10.[address] [place] [address] GFR should be used to assess renal function. Plasma/Serum creatinine may not be able to properly reflect renal function in some cases. 13 Protein 098028663875 7.0 6.0-8.[address] [place] [address] GFR should be used to assess renal function. Plasma/Serum creatinine may not be able to properly reflect renal function in some cases. 14 Alanine aminotransfe rase [Enzymatic activity/volume] in Serum or Plasma by With P-5'-P 094992971772 23 10-[address] Fin al [address] [place] [address] GFR should be used to assess renal function. Plasma/Serum creatinine may not be able to properly reflect renal function in some cases. 15 E GLOM FILT RATE [id number] 59.1 Below low normal > [address] [place] [address] If patient is [place], multiply estimated GFR by 1.159.
--- OUTSIDE RECORDS SUMMARY | 2023-09-08 01:00 | External Medical Summary ---
Author Name Unknown Address Unknown Organization : Laboratory Report Ordering Provider Test Date Status FIDELINA santos PK 06/02/2016 11:13:00 Fin al Obs # Observation Date Value Abnormality Reference Status Performing Location 0 INR in Capillary blood by Coagulation assay 06/02/2016 11:15 2.1 Final 1 Days in therapeutic INR range/Days INR result determined [Ratio] 06/02/2016 11:15 Final Therapeutic ranges for non-o perative patients:Prophylaxsis/treatment of DVT: (Range:2.0-3.0)Treatment of pulmonary embolism:(Range:2.0-3.0)Prevention of systemic embolism from:-tissue heart valves-acute myocardial infarction-valvular heart disease-atrial fibrillation(Range: 2.0-3.0)Mechanical prosthetic valves: (Range: 2.5-3.5)
--- OUTSIDE RECORDS SUMMARY | 2023-09-08 01:00 | External Medical Summary ---
Author Name Unknown Address [address] [address] Phone Organization K09:[facility] [address] [place] [address] Laboratory Report Ordering Provider Test Date Status DOV JORGE MD 06/30/2016 10:59:00 Final Obs # Observation Date Value Abnormality Reference Status Performing Location 0 Fasting status - Reported 06/30/2016 11:02 12 Final [facility] [place] [address] [place] [address] 1 Triglyceride 06/30/2016 18:14 125 <200 Final TRIGLYCERIDE REFERENCE RANGE S (mg/dL)<150 [id number] BORDERLINE [id number] HIGH>499 VERY HIGH 2 Cholesterol 06/30/2016 18:14 131 <200 Fin al TOTAL CHOLESTEROL REFERENCE RANGES(mg/dL)<200 [id number] BORDERLINE HIGH>239 HIGH 3 HDL 06/30/2016 18:14 46 >39 Final HDL CHOLESTEROL REFERENCE RA NGES(mg/dL)<40 LOW(UNDESIRABLE)>59 HIGH(DESIRABLE) 4 Cholesterol / HDL ratio 06/30/2016 18:14 2.8 Final 5 LDL, (calculated) 06/30/2016 18:14 60 0-129 Final LDL CHOLESTEROL REFERENCE RA NGES(mg/dL)<100 OPTIMAL GOAL FOR HIGH RISK [id number] NEAR OR ABOVE [id number] BORDERLINE [id number] HIGH>189 VERY HIGH
--- OUTSIDE RECORDS SUMMARY | 2023-09-08 01:00 | External Medical Summary ---
Author Name Unknown Address Unknown Organization : Laboratory Report Ordering Provider Test Date Status [facility] [place] [place] [id number] Final Obs # Observation Date Value Abnormality Reference Status Performing Location 0 INR, fingerstick (POC) 572242497754 2.6 Final 1 Target range [id number] Final Therapeutic ranges for non-o perative patients:Prophylaxsis/treatment of DVT: (Range:2.0-3.0)Treatment of pulmonary embolism:(Range:2.0-3.0)Prevention of systemic embolism from:-tissue heart valves-acute myocardial infarction-valvular heart disease-atrial fibrillation(Range: 2.0-3.0)Mechanical prosthetic valves: (Range: 2.5-3.5)
--- OUTSIDE RECORDS SUMMARY | 2023-09-08 01:00 | External Medical Summary ---
Author Name Unknown Address Unknown Organization : Laboratory Report Ordering Provider Test Date Status [facility] [place] [id number] Final Obs # Observation Date Value Abnormality Reference Status Performing Location 0 INR, fingerstick (POC) 932666333540 2.5 Final 1 Target range [id number] Final Therapeutic ranges for non-o perative patients:Prophylaxsis/treatment of DVT: (Range:2.0-3.0)Treatment of pulmonary embolism:(Range:2.0-3.0)Prevention of systemic embolism from:-tissue heart valves-acute myocardial infarction-valvular heart disease-atrial fibrillation(Range: 2.0-3.0)Mechanical prosthetic valves: (Range: 2.5-3.5)
--- OUTSIDE RECORDS SUMMARY | 2023-09-08 01:00 | External Medical Summary ---
Author Name Unknown Address Unknown Organization : Laboratory Report Ordering Provider Test Date Status [facility] [place] [place] [id number] Final Obs # Observation Date Value Abnormality Reference Status Performing Location 0 INR, fingerstick (POC) 476084977779 2.1 Final 1 Target range [id number] Final Therapeutic ranges for non-o perative patients:Prophylaxsis/treatment of DVT: (Range:2.0-3.0)Treatment of pulmonary embolism:(Range:2.0-3.0)Prevention of systemic embolism from:-tissue heart valves-acute myocardial infarction-valvular heart disease-atrial fibrillation(Range: 2.0-3.0)Mechanical prosthetic valves: (Range: 2.5-3.5)
--- OUTSIDE RECORDS SUMMARY | 2023-09-08 01:00 | External Medical Summary ---
Author Name Unknown Address Unknown Organization : Laboratory Report Ordering Provider Test Date Status DOV JORGE MD [id number] Final Obs # Observation Date Value Abnormality Reference Status Performing Location 0 INR, fingerstick (POC) 022751317995 2.4 Final 1 Target range [id number] Final Therapeutic ranges for non-o perative patients:Prophylaxsis/treatment of DVT: (Range:2.0-3.0)Treatment of pulmonary embolism:(Range:2.0-3.0)Prevention of systemic embolism from:-tissue heart valves-acute myocardial infarction-valvular heart disease-atrial fibrillation(Range: 2.0-3.0)Mechanical prosthetic valves: (Range: 2.5-3.5)
--- OUTSIDE RECORDS SUMMARY | 2023-09-08 01:00 | External Medical Summary ---
Author Name Unknown Address [address] [place] [address] Phone Organization [id number]:[facility] [address] [place] [address] Laboratory Report Ordering Provider Test Date Status DOV JORGE MD 06/30/2016 10:59:00 Final Obs # Observation Date Value Abnormality Reference Status Performing Location 0 BUN 06/30/2016 12:23 15 6-20 Final [facility] [address] [place] [address] 1 Creatinine 06/30/2016 12:23 1.1 0.6-1.2 Final GFR should be used to assess renal function. Plasma/Serum creatinine may not be able to properly reflect renal function in some cases. 2 Sodium 06/30/2016 12:23 140 135-146 Final 3 Potassium 06/30/2016 12:23 4.8 3.5-5.1 Final 4 Cl 06/30/2016 12:23 102 98-107 Final 5 CO2 06/30/2016 12:23 27 22-32 Final 6 Anion gap 06/30/2016 12:23 11 7-15 Final 7 Glucose 06/30/2016 12:23 93 70-120 Final 8 Albumin 06/30/2016 12:23 4.1 3.8-5.0 Final 9 AST (Aspartate aminotransferase) 06/30/2016 12:23 19 10-50 Final 10 Alk Phos 06/30/2016 12:23 74 0-153 Final 11 Bilirubin, Total 06/30/2016 12:23 0.5 0-1.2 Final 12 Calcium 06/30/2016 12:23 9.4 8.4-10.2 Final 13 Protein 06/30/2016 12:23 6.9 6.0-8.3 Final 14 ALT (Alanine aminotransferase) 06/30/2016 12:23 11 10-50 Final 15 E Glom Filt Rate 06/30/2016 12:23 >60.0 >60 Final If patient is [place] an, multiply estimated GFR by 1.159.
--- OUTSIDE RECORDS SUMMARY | 2023-09-08 01:00 | External Medical Summary ---
Author Name Unknown Address Unknown Organization : Laboratory Report Ordering Provider Test Date Status [facility] PK [id number] Final Obs # Observation Date Value Abnormality Reference Status Performing Location 0 INR, fingerstick (POC) [id number] 2.1 Final 1 Target range [id number] Final Therapeutic ranges for non-o perative patients:Prophylaxsis/treatment of DVT: (Range:2.0-3.0)Treatment of pulmonary embolism:(Range:2.0-3.0)Prevention of systemic embolism from:-tissue heart valves-acute myocardial infarction-valvular heart disease-atrial fibrillation(Range: 2.0-3.0)Mechanical prosthetic valves: (Range: 2.5-3.5)
--- OUTSIDE RECORDS SUMMARY | 2023-09-08 01:00 | External Medical Summary ---
Author Name Unknown Address [address] [facility] [place] [address] Phone Organization K09:[facility] [address] [facility] [place] [address] Laboratory Report Ordering Provider Test Date Status DOV JORGE MD [id number] Final Obs # Observation Date Value Abnormality Reference Status Performing Location 0 hours fasting [id number] 12 Final [facility] [address] [facility] [address] 1 Triglyceride [id number] 108 <200 Final [facility] [address] [facility] [address] [place] [address] TRIGLYCERIDE REFERENCE RANGE S (mg/dL)<150 [id number] BORDERLINE [id number] HIGH>499 VERY HIGH 2 Cholesterol 751029107069 145 <200 Final [facility] [address] [facility] [address] [place] [address] TOTAL CHOLESTEROL REFERENCE RANGES(mg/dL)<200 [id number] BORDERLINE HIGH>239 HIGH 3 HDL 453935773975 49 >39 Final [facility] [address] [facility] [address] [place] [address] HDL CHOLESTEROL REFERENCE RA NGES(mg/dL)<40 LOW(UNDESIRABLE)>59 HIGH(DESIRABLE) 4 Cholesterol / HDL ratio 174677932601 3.0 Final [facility] [address] [facility] [address] [place] [address] HDL CHOLESTEROL REFERENCE RA NGES(mg/dL)<40 LOW(UNDESIRABLE)>59 HIGH(DESIRABLE) 5 LDL, (calculated) 988380255312 74 0-129 F inal [facility] [address] [facility] [place] [address] LDL CHOLESTEROL REFERENCE RA NGES(mg/dL)<100 OPTIMAL GOAL FOR HIGH RISK [id number] NEAR OR ABOVE [id number] BORDERLINE [id number] HIGH>189 VERY HIGH
--- OUTSIDE RECORDS SUMMARY | 2023-09-08 01:00 | External Medical Summary ---
Author Name Unknown Address [address] [facility] [place] Ramos [address] Phone Organization K0G:[facility] [place] [address] Laboratory Report Ordering Provider Test Date Status GAVINO JARRELL MD [id number] Final Obs # Observation Date Value Abnormality Reference Status Performing Location 0 Digoxin [id number] 0.3 Below low normal 0.5-2.0 Fi nal [facility] [address] [place] [address]
--- OUTSIDE RECORDS SUMMARY | 2023-09-08 01:00 | External Medical Summary ---
Author Name Unknown Address [facility] [address] [id number] Phone Organization K01:[facility] [address] [id number] Laboratory Report Ordering Provider Test Date Status DOV JORGE MD 06/30/2016 10:59:00 Final Obs # Observation Date Value Abnormality Reference Status Performing Location 0 HbA1C 06/30/2016 18:52 5.4 4.0-6.4 Final [place] [address] [address] [facility] [address] The use of HbA1c to monitor glycemic status is based on normal hemoglobin and HbA composition.This test should not be used in patients with abnormal hemoglobin that affects the half life of the red blood cell or the in vivo glycation rates. 1 Glucose, estimated average 06/30/2016 18:52 108 <126 Final
--- OUTSIDE RECORDS SUMMARY | 2023-09-08 01:00 | External Medical Summary ---
Author Name Unknown Address Unknown Organization : Laboratory Report Ordering Provider Test Date Status [facility] SCEN PK [id number] Final Obs # Observation Date Value Abnormality Reference Status Performing Location 0 INR, fingerstick (POC) 116203453092 2.0 Final 1 Target range 291087355814 Final Therapeutic ranges for non-o perative patients:Prophylaxsis/treatment of DVT: (Range:2.0-3.0)Treatment of pulmonary embolism:(Range:2.0-3.0)Prevention of systemic embolism from:-tissue heart valves-acute myocardial infarction-valvular heart disease-atrial fibrillation(Range: 2.0-3.0)Mechanical prosthetic valves: (Range: 2.5-3.5)
--- OUTSIDE RECORDS SUMMARY | 2023-09-08 01:00 | External Medical Summary ---
Author Name Unknown Address [address] [place] [address] Phone Organization K0G:[facility] Mor[facility] [address] [place] [address] Laboratory Report Ordering Provider Test Date Status GAVINO JARRELL MD [id number] Final Obs # Observation Date Value Abnormality Reference Status Performing Location 0 BUN [id number] 16 6-20 Final [facility] Antonella Morrell [address] [place] [address] 1 Creatinine 285879621525 1.2 0.7-1.3 Final [facility] Antonella Morrell [address] [place] [address] GFR should be used to assess renal function. Plasma/Serum creatinine may not be able to properly reflect renal function in some cases. 2 Sodium 185394540783 142 135-146 Final [facility] Anton[facility] Morrell [address] [place] [address] GFR should be used to assess renal function. Plasma/Serum creatinine may not be able to properly reflect renal function in some cases. 3 Potassium 831183894131 4.3 3.5-5.1 Final [facility] Antonella Morrell [address] [place] [address] GFR should be used to assess renal function. Plasma/Serum creatinine may not be able to properly reflect renal function in some cases. 4 Cl 468397828645 104 98-107 Final [facility] Anton[facility] Morrell [address] [place] [address] GFR should be used to assess renal function. Plasma/Serum creatinine may not be able to properly reflect renal function in some cases. 5 CO2 547020323731 28 22-32 Final [facility] Anton[facility] Morrell [address] [place] [address] GFR should be used to assess renal function. Plasma/Serum creatinine may not be able to properly reflect renal function in some cases. 6 Anion gap 980289675198 10 7-15 Final [facility] Antonella Morrell [address] [place] [address] GFR should be used to assess renal function. Plasma/Serum creatinine may not be able to properly reflect renal function in some cases. 7 Glucose 976089731028 74 70-120 Final [facility] Antonella Morrell [address] [place] [address] GFR should be used to assess renal function. Plasma/Serum creatinine may not be able to properly reflect renal function in some cases. 8 Calcium 084054043473 9.4 8.3-10.5 Final [facility] Antonella Morrell [address] [place] [address] GFR should be used to assess renal function. Plasma/Serum creatinine may not be able to properly reflect renal function in some cases. 9 E GLOM FILT RATE 369226041853 58.5 Below low normal > 60 Final [facility] Anton[facility] Morrell [address] [place] [address] If patient is [place], multiply estimated GFR by 1.159.
--- OUTSIDE RECORDS SUMMARY | 2023-09-08 01:00 | External Medical Summary ---
Author Name Unknown Address Unknown Organization : Laboratory Report Ordering Provider Test Date Status [facility] [place] PK [id number] Final Obs # Observation Date Value Abnormality Reference Status Performing Location 0 INR, fingerstick (POC) 308798225287 2.4 Final 1 Target range [id number] Final Therapeutic ranges for non-o perative patients:Prophylaxsis/treatment of DVT: (Range:2.0-3.0)Treatment of pulmonary embolism:(Range:2.0-3.0)Prevention of systemic embolism from:-tissue heart valves-acute myocardial infarction-valvular heart disease-atrial fibrillation(Range: 2.0-3.0)Mechanical prosthetic valves: (Range: 2.5-3.5)
--- OUTSIDE RECORDS SUMMARY | 2023-09-08 01:00 | External Medical Summary ---
Author Name Unknown Address Unknown Organization : Laboratory Report Ordering Provider Test Date Status [facility] PK [id number] Final Obs # Observation Date Value Abnormality Reference Status Performing Location 0 INR, fingerstick (POC) 209189511434 1.9 Final 1 Target range 697886785350 Final Therapeutic ranges for non-o perative patients:Prophylaxsis/treatment of DVT: (Range:2.0-3.0)Treatment of pulmonary embolism:(Range:2.0-3.0)Prevention of systemic embolism from:-tissue heart valves-acute myocardial infarction-valvular heart disease-atrial fibrillation(Range: 2.0-3.0)Mechanical prosthetic valves: (Range: 2.5-3.5)
--- OUTSIDE RECORDS SUMMARY | 2023-09-08 01:00 | External Medical Summary ---
Author Name Unknown Address [address] [place] [address] Phone Organization K09:[facility] [address] [place] [address] Laboratory Report Ordering Provider Test Date Status DOV JORGE MD 06/30/2016 10:59:00 Final Obs # Observation Date Value Abnormality Reference Status Performing Location 0 WBC, Total 6 11:33 7.44 4.00-10.[address] [facility] [address] [place] [address] 1 RBC 6 11:33 4.33 Below low normal 4.50-5.25 Final 2 Hemoglobin 6 11:33 14.0 14.0-16.8 Final 3 HCT 6 11:33 41.6 40.0-48.4 Final 4 MCV 6 11:33 96.1 82.0-99.5 Final 5 MCH 6 11:33 32.3 27.0-34.0 Final 6 MCHC 6 11:33 33.7 32.0-36.0 Final 7 RDW 6 11:33 13.4 11.5-15.5 Final 8 Platelets 6 11:33 188 140-400 Final 9 MPV 6 11:33 10.2 6.6-11.1 Final 10 NEUT 6 11:33 62.7 40-75 Final 11 Lymphs % 6 11:33 26.9 18-42 Final 12 Monos 6 11:33 8.1 1-11 Final 13 Eosinophils 6 11:33 2.2 0-6 Final 14 Basos 6 11:33 0.1 0-2 Final 15 ANEUT 6 11:33 4.67 1.8-7.7 Final 16 Lymphs, absolute 6 11:33 2.00 1.0-4.8 Final 17 Monos, Abs 6 11:33 0.60 0.0-1.1 Final 18 Eos, Abs 6 11:33 0.16 0.0-0.7 Final 19 Basos, Abs 6 11:33 0.01 0.0-0.2 Final
--- OUTSIDE RECORDS SUMMARY | 2023-09-08 01:00 | External Medical Summary ---
Author Name Unknown Address [address] [place] [address] Phone Organization K09:[facility] [address] [place] [address] Laboratory Report Ordering Provider Test Date Status DOV JORGE MD [id number] Final Obs # Observation Date Value Abnormality Reference Status Performing Location 0 WBC 457223491730 6.86 4.00-10.80 Final [facility] [address] [place] [address] 1 RBC 660755288120 4.49 Below low normal 4.50-5.25 Final [facility] [address] [place] [address] 2 Hemoglobin 486762344085 14.6 14.0-16.8 Final [facility] [address] [place] [address] 3 HCT 886382625614 42.8 40.0-48.4 Final [facility] [address] [place] [address] 4 MCV 508147521752 95.3 82.0-99.5 Final [facility] [address] [place] [address] 5 MCH 689889759586 32.5 27.0-34.0 Final [facility] [address] [place] [address] 6 MCHC [id number] 34.1 32.0-36.0 Final [facility] [address] [place] [address] 7 RDW 431699738288 13.6 11.5-15.5 Final [facility] [place] [address] [place] [address] 8 Platelets 189951193369 175 140-400 Final [facility] [address] [place] [address] 9 MPV 826881192499 9.9 6.6-11.1 Final [facility] [address] [place] [address] 10 Segs 295876974493 56 40-75 Final [facility] [address] [place] [address] 11 Lymphocytes 432470394594 33 18-42 Final [facility] [address] [place] [address] 12 Monos 680192909593 9 1-11 Final [facility] [address] [place] [address] 13 Eosinophils 834000953002 2 0-6 Final [facility] [address] [place] [address] 14 Basos 319644066024 0 0-2 Final [facility] [address] [place] [address] 15 Segmented Neutrophils, Abs 578802950684 3.81 1.8-7.7 Final [facility] [address] [place] [address] 16 Lymphs, Abs 271650827428 2.24 1.0-4.8 Final [facility] [address] [place] [address] 17 Monos, Abs 933906620720 0.63 0.0-1.1 Final [facility] [address] [place] [address] 18 Eos, Abs 855891004982 0.16 0.0-0.7 Final [facility] [address] [place] [address] 19 Basos, Abs 222060687359 0.02 0.0-0.2 Final [facility] [address] [place] [address]
--- OUTSIDE RECORDS SUMMARY | 2023-09-08 01:00 | External Medical Summary ---
Author Name Unknown Address Unknown Organization : Laboratory Report Ordering Provider Test Date Status [facility] PK [id number] Final Obs # Observation Date Value Abnormality Reference Status Performing Location 0 INR, fingerstick (POC) 417085201940 2.4 Final 1 Target range 437753914798 Final Therapeutic ranges for non-o perative patients:Prophylaxsis/treatment of DVT: (Range:2.0-3.0)Treatment of pulmonary embolism:(Range:2.0-3.0)Prevention of systemic embolism from:-tissue heart valves-acute myocardial infarction-valvular heart disease-atrial fibrillation(Range: 2.0-3.0)Mechanical prosthetic valves: (Range: 2.5-3.5)
--- OUTSIDE RECORDS SUMMARY | 2023-09-08 01:00 | External Medical Summary ---
Author Name Unknown Address Unknown Organization : Laboratory Report Ordering Provider Test Date Status [facility] SCEN PK [id number] Final Obs # Observation Date Value Abnormality Reference Status Performing Location 0 INR, fingerstick (POC) 255100724619 2.0 Final 1 Target range 782196365455 Final Therapeutic ranges for non-o perative patients:Prophylaxsis/treatment of DVT: (Range:2.0-3.0)Treatment of pulmonary embolism:(Range:2.0-3.0)Prevention of systemic embolism from:-tissue heart valves-acute myocardial infarction-valvular heart disease-atrial fibrillation(Range: 2.0-3.0)Mechanical prosthetic valves: (Range: 2.5-3.5)
--- OUTSIDE RECORDS SUMMARY | 2023-09-08 01:00 | External Medical Summary ---
Author Name Unknown Address Unknown Organization : Laboratory Report Ordering Provider Test Date Status FIDELINA santos PK 05/05/2016 11:08:00 Fin al Obs # Observation Date Value Abnormality Reference Status Performing Location 0 INR in Capillary blood by Coagulation assay 05/05/2016 11:19 2.1 Final 1 Days in therapeutic INR range/Days INR result determined [Ratio] 05/05/2016 11:19 Final Therapeutic ranges for non-o perative patients:Prophylaxsis/treatment of DVT: (Range:2.0-3.0)Treatment of pulmonary embolism:(Range:2.0-3.0)Prevention of systemic embolism from:-tissue heart valves-acute myocardial infarction-valvular heart disease-atrial fibrillation(Range: 2.0-3.0)Mechanical prosthetic valves: (Range: 2.5-3.5)
--- OUTSIDE RECORDS SUMMARY | 2023-09-08 01:00 | External Medical Summary ---
Author Name Unknown Address Unknown Organization : Laboratory Report Ordering Provider Test Date Status [facility] PK [id number] Final Obs # Observation Date Value Abnormality Reference Status Performing Location 0 INR, fingerstick (POC) 193841098898 2.1 Final 1 Target range 604595552180 Final Therapeutic ranges for non-o perative patients:Prophylaxsis/treatment of DVT: (Range:2.0-3.0)Treatment of pulmonary embolism:(Range:2.0-3.0)Prevention of systemic embolism from:-tissue heart valves-acute myocardial infarction-valvular heart disease-atrial fibrillation(Range: 2.0-3.0)Mechanical prosthetic valves: (Range: 2.5-3.5)
--- OUTSIDE RECORDS SUMMARY | 2023-09-08 01:00 | External Medical Summary ---
Author Name Unknown Address Unknown Organization : Laboratory Report Ordering Provider Test Date Status null[facility] [id number] Final Obs # Observation Date Value Abnormality Reference Status Performing Location 0 INR in Capillary blood by Coagulation assay 709618305656 2.0 Final 1 Days in therapeutic INR range/Days INR result determined [Ratio] [id number] Final Therapeutic ranges for non-o perative patients:Prophylaxsis/treatment of DVT: (Range:2.0-3.0)Treatment of pulmonary embolism:(Range:2.0-3.0)Prevention of systemic embolism from:-tissue heart valves-acute myocardial infarction-valvular heart disease-atrial fibrillation(Range: 2.0-3.0)Mechanical prosthetic valves: (Range: 2.5-3.5)
--- OUTSIDE RECORDS SUMMARY | 2023-09-08 01:00 | External Medical Summary ---
Author Name Unknown Address Unknown Organization : Laboratory Report Ordering Provider Test Date Status DOV JORGE MD 06/30/2016 10:59:00 Final Obs # Observation Date Value Abnormality Reference Status Performing Location 0 INR in Capillary blood by Coagulation assay 06/30/2016 11:02 2.7 Final 1 Days in therapeutic INR range/Days INR result determined [Ratio] 06/30/2016 11:02 Final Therapeutic ranges for non-o perative patients:Prophylaxsis/treatment of DVT: (Range:2.0-3.0)Treatment of pulmonary embolism:(Range:2.0-3.0)Prevention of systemic embolism from:-tissue heart valves-acute myocardial infarction-valvular heart disease-atrial fibrillation(Range: 2.0-3.0)Mechanical prosthetic valves: (Range: 2.5-3.5)
--- OUTSIDE RECORDS SUMMARY | 2023-09-08 01:01 | External Medical Summary ---
Author Name Unknown Organization K01:[facility], [address] [address] Laboratory Report Ordering Provider Test Date Status [facility] 01/26/2014 11:02:00-0400 Fin al Obs # Observation Date Value ABNL Reference Status Pe rforming Location 1 INR, fingerstick (POC) 01/26/2014 11:24-0400 3.5 INR Final 2 Target range 01/26/2014 11:24-0400 Final Therapeutic ranges for non-o perative patients: Prophylaxsis/treatment of DV T: (Range:2.0-3.0) Treatment of pulmonary embol ism:(Range:2.0-3.0) Prevention of systemic embol ism from: -tissue heart valves -acute myocardial infarction -valvular heart disease -atrial fibrillation (Range: 2.0-3.0) Mechanical prosthetic valves : (Range: 2.5-3.5) Therapeutic ranges for non-operative patients: Prophylaxsis/treatment of DVT: (Range:2.0-3.0) Treatment of pulmonary embolism:(Range:2.0-3.0) Prevention of systemic embolism from: -tissue heart valves -acute myocardial infarction -valvular heart disease -atrial fibrillation (Range: 2.0-3.0) Mechanical prosthetic valves: (Range: 2.5-3.5)
--- OUTSIDE RECORDS SUMMARY | 2023-09-08 01:01 | External Medical Summary ---
Author Name Unknown Address Unknown Organization : Laboratory Report Ordering Provider Test Date Status [facility] SCEN PK [id number] Final Obs # Observation Date Value Abnormality Reference Status Performing Location 0 INR, fingerstick (POC) 421232278832 2.3 Final 1 Target range 475819519091 Final Therapeutic ranges for non-o perative patients:Prophylaxsis/treatment of DVT: (Range:2.0-3.0)Treatment of pulmonary embolism:(Range:2.0-3.0)Prevention of systemic embolism from:-tissue heart valves-acute myocardial infarction-valvular heart disease-atrial fibrillation(Range: 2.0-3.0)Mechanical prosthetic valves: (Range: 2.5-3.5)
--- OUTSIDE RECORDS SUMMARY | 2023-09-08 01:01 | External Medical Summary ---
Author Name Unknown Organization K01:[facility], [address] [id number] Laboratory Report Ordering Provider Test Date Status [facility] PK 09/20/2014 14:27:00-0500 Fin al Obs # Observation Date Value ABNL Reference Status Pe rforming Location 1 INR, fingerstick (POC) 09/20/2014 14:29-0500 2.2 INR Final 2 Target range 09/20/2014 14:29-0500 Final Therapeutic ranges for non-o perative patients: [...]
--- OUTSIDE RECORDS SUMMARY | 2023-09-08 01:01 | External Medical Summary ---
Author Name Unknown Organization K01:[facility], [address] [id number] Laboratory Report Ordering Provider Test Date Status [facility] PK 10/19/2014 11:22:00-0500 Fin al Obs # Observation Date Value ABNL Reference Status Pe rforming Location 1 INR, fingerstick (POC) 10/19/2014 11:23-0500 3.1 INR Final 2 Target range 10/19/2014 11:23-0500 Final Therapeutic ranges for non-o perative patients: [...]
--- OUTSIDE RECORDS SUMMARY | 2023-09-08 01:01 | External Medical Summary ---
Author Name Unknown Organization K01:[facility], [address] [address] Laboratory Report Ordering Provider Test Date Status [facility] PK 07/06/2014 11:32:00-0400 Fin al Obs # Observation Date Value ABNL Reference Status Pe rforming Location 1 INR, fingerstick (POC) 07/06/2014 11:42-0400 2.2 INR Final 2 Target range 07/06/2014 11:42-0400 Final Therapeutic ranges for non-o perative patients: [...]
--- OUTSIDE RECORDS SUMMARY | 2023-09-08 01:01 | External Medical Summary ---
Author Name Unknown Organization K01:[facility], [facility] [address] [address] Laboratory Report Ordering Provider Test Date Status LUISITO MONAE MD 11/27/2013 10:53:00-0500 Final Obs # Observation Date Value ABNL Reference Status Pe rforming Location 1 INR, fingerstick (POC) 11/27/2013 10:52-0500 2.2 INR Final 2 Target range 11/27/2013 10:52-0500 Final Therapeutic ranges for non-o perative patients: [...]
--- OUTSIDE RECORDS SUMMARY | 2023-09-08 01:01 | External Medical Summary ---
Author Name Unknown Organization K01:[facility], [address] [id number] Laboratory Report Ordering Provider Test Date Status [facility] PK 04/20/2014 11:03:00-0400 Fin al Obs # Observation Date Value ABNL Reference Status Pe rforming Location 1 INR, fingerstick (POC) 04/20/2014 11:04-0400 2.0 INR Final 2 Target range 04/20/2014 11:04-0400 Final Therapeutic ranges for non-o perative patients: [...]
--- OUTSIDE RECORDS SUMMARY | 2023-09-08 01:01 | External Medical Summary ---
Author Name Unknown Organization K01:[facility], [address] [address] Laboratory Report Ordering Provider Test Date Status [facility] 06/07/2014 15:59:00-0400 Final Obs # Observation Date Value ABNL Reference Status Pe rforming Location 1 PT 06/07/2014 22:15-0400 19.6 H 11.5-14.6 seconds Final 2 INR 06/07/2014 22:15-0400 1.71 H 0.85-1.16 Final
--- OUTSIDE RECORDS SUMMARY | 2023-09-08 01:01 | External Medical Summary ---
Author Name Unknown Organization K01:[facility], [address] [id number] Laboratory Report Ordering Provider Test Date Status [facility] SC[facility] PK 03/23/2014 11:28:00-0400 Fin al Obs # Observation Date Value ABNL Reference Status Pe rforming Location 1 INR, fingerstick (POC) 03/23/2014 11:30-0400 2.2 INR Final 2 Target range 03/23/2014 11:30-0400 Final Therapeutic ranges for non-o perative patients: [...]
--- OUTSIDE RECORDS SUMMARY | 2023-09-08 01:01 | External Medical Summary ---
Author Name Unknown Organization K01:[facility], [address] [address] Laboratory Report Ordering Provider Test Date Status LUISITO MONAE MD 11/27/2013 10:43:00-0500 Final Obs # Observation Date Value ABNL Reference Status Pe rforming Location 1 Vitamin B12 11/27/2013 17:36-0500 630 211-946 pg/mL Final
--- OUTSIDE RECORDS SUMMARY | 2023-09-08 01:01 | External Medical Summary ---
Author Name Unknown Organization K01:[facility], [address] [address] Laboratory Report Ordering Provider Test Date Status [facility] SCEN PK 11/16/2014 11:42:00-0500 Fin al Obs # Observation Date Value ABNL Reference Status Pe rforming Location 1 INR, fingerstick (POC) 11/16/2014 11:44-0500 2.2 INR Final 2 Target range 11/16/2014 11:44-0500 Final Therapeutic ranges for non-o perative patients: [...]
--- OUTSIDE RECORDS SUMMARY | 2023-09-08 01:01 | External Medical Summary ---
Author Name Unknown Organization K01:[facility], [address] [address] Laboratory Report Ordering Provider Test Date Status [facility] SCEN PK 04/09/2015 11:26:00-0400 Fin al Obs # Observation Date Value ABNL Reference Status Pe rforming Location 1 INR, fingerstick (POC) 04/09/2015 11:28-0400 2.1 INR Final 2 Target range 04/09/2015 11:28-0400 Final Therapeutic ranges for non-o perative patients: [...]
--- OUTSIDE RECORDS SUMMARY | 2023-09-08 01:01 | External Medical Summary ---
Author Name Unknown Organization K01:[facility], [address] [id number] Laboratory Report Ordering Provider Test Date Status [facility] SCEN PK 01/11/2015 11:32:00-0400 Fin al Obs # Observation Date Value ABNL Reference Status Pe rforming Location 1 INR, fingerstick (POC) 01/11/2015 11:34-0400 1.9 INR Final 2 Target range 01/11/2015 11:34-0400 Final Therapeutic ranges for non-o perative patients: [...]
--- OUTSIDE RECORDS SUMMARY | 2023-09-08 01:01 | External Medical Summary ---
Author Name Unknown Organization K01[facility], [address] [id number] Laboratory Report Ordering Provider Test Date Status [facility] SCEN PK 02/23/2014 10:53:00-0400 Fin al Obs # Observation Date Value ABNL Reference Status Pe rforming Location 1 INR, fingerstick (POC) 02/23/2014 10:54-0400 2.4 INR Final 2 Target range 02/23/2014 10:54-0400 Final Therapeutic ranges for non-o perative patients: [...]
--- OUTSIDE RECORDS SUMMARY | 2023-09-08 01:01 | External Medical Summary ---
Author Name Unknown Organization K01:[facility], [address] [id number] Laboratory Report Ordering Provider Test Date Status NIXON CAST PAC 06/07/2014 15:53:00-0400 Final Obs # Observation Date Value ABNL Reference Status Pe rforming Location 1 WBC 06/07/2014 22:10-0400 7.65 4.00-10.80 K/uL Final 2 RBC 06/07/2014 22:10-0400 4.60 4.50-5.25 M/uL Final 3 HGB 06/07/2014 22:10-0400 14.7 14.0-16.5 g/dL Final 4 HCT 06/07/2014 22:10-0400 44.3 40.0-47.0 % Final 5 MCV 06/07/2014 22:10-0400 96.3 82.0-99.5 fL Final 6 MCH 06/07/2014 22:10-0400 32.0 27.0-34.0 pg Final 7 MCHC 06/07/2014 22:10-0400 33.2 32.0-36.0 g/dL Final 8 RDW 06/07/2014 22:10-0400 13.7 11.5-15.5 % Final 9 PLT 06/07/2014 22:10-0400 200 140-400 K/uL Final 10 MPV 06/07/2014 22:10-0400 10.4 6.6-11.1 fL Final
--- OUTSIDE RECORDS SUMMARY | 2023-09-08 01:01 | External Medical Summary ---
Author Name Unknown Organization K01:[facility], [address] [id number] Laboratory Report Ordering Provider Test Date Status [facility] SCEN PK 08/21/2014 10:57:00-0400 Fin al Obs # Observation Date Value ABNL Reference Status Pe rforming Location 1 INR, fingerstick (POC) 08/21/2014 10:58-0400 3.2 INR Final 2 Target range 08/21/2014 10:58-0400 Final Therapeutic ranges for non-o perative patients: [...]
--- OUTSIDE RECORDS SUMMARY | 2023-09-08 01:01 | External Medical Summary ---
Author Name Unknown Organization K01:[facility], [address] [id number] Laboratory Report Ordering Provider Test Date Status [facility] SCEN PK 02/08/2015 11:05:00-0400 Fin al Obs # Observation Date Value ABNL Reference Status Pe rforming Location 1 INR, fingerstick (POC) 02/08/2015 11:07-0400 2.1 INR Final 2 Target range 02/08/2015 11:07-0400 Final Therapeutic ranges for non-o perative patients: [...]
--- OUTSIDE RECORDS SUMMARY | 2023-09-08 01:01 | External Medical Summary ---
Author Name Unknown Organization K01:[facility], [address] [id number] Laboratory Report Ordering Provider Test Date Status [facility] SCEN PK 12/14/2014 11:30:00-0500 Fin al Obs # Observation Date Value ABNL Reference Status Pe rforming Location 1 INR, fingerstick (POC) 12/14/2014 11:32-0500 2.0 INR Final 2 Target range 12/14/2014 11:32-0500 Final Therapeutic ranges for non-o perative patients: [...]
--- OUTSIDE RECORDS SUMMARY | 2023-09-08 01:01 | External Medical Summary ---
Author Name Unknown Organization K01:[facility], [address] [address] Laboratory Report Ordering Provider Test Date Status NIXON CAST PAC 06/07/2014 15:53:00-0400 Final Obs # Observation Date Value ABNL Reference Status Pe rforming Location 1 BUN 06/07/2014 21:16-0400 17 6-20 mg/dL Final 2 Creatinine 06/07/2014 21:16-0400 1.2 0.7-1.3 mg/dL Final GFR should be used to assess renal function. Plasma/Serum creatinine may not be able to properly reflect renal function in some cases. 3 Sodium 06/07/2014 21:16-0400 137 135-146 mm ol/L Final 4 Potassium 06/07/2014 21:16-0400 5.1 3.5-5.1 mmol/L Final 5 Cl 06/07/2014 21:16-0400 101 98-111 mmo l/L Final 6 CO2 06/07/2014 21:16-0400 27 22-32 mmol /L Final 7 Anion gap 06/07/2014 21:16-0400 9 7-15 mmo l/L Final 8 Glucose 06/07/2014 21:16-0400 81 70-120 mg/ dL Final 9 Calcium 06/07/2014 21:16-0400 9.5 8.3-10.5 m g/dL Final 10 E GLOM FILT RATE 06/07/2014 21:16-0400 58.3 L > 60 Final If patient is [place], multiply estimated GFR by 1.159. GFR should be used to assess renal function. Plasma/Serum creatinine may not be able to properly reflect renal function in some cases. If patient is , multiply estimated GFR by 1.159.
--- OUTSIDE RECORDS SUMMARY | 2023-09-08 01:01 | External Medical Summary ---
Author Name Unknown Organization K01:[facility], [address] [address] Laboratory Report Ordering Provider Test Date Status [facility] SCEN PK 12/29/2013 11:00:00-0500 Fin al Obs # Observation Date Value ABNL Reference Status Pe rforming Location 1 INR, fingerstick (POC) 12/29/2013 10:59-0500 3.1 INR Final 2 Target range 12/29/2013 10:59-0500 Final Therapeutic ranges for non-o perative patients: [...]
--- OUTSIDE RECORDS SUMMARY | 2023-09-08 01:01 | External Medical Summary ---
Author Name Unknown Organization K01:[facility], [address] [id number] Laboratory Report Ordering Provider Test Date Status [facility] SCEN PK 03/11/2015 11:17:00-0400 Fin al Obs # Observation Date Value ABNL Reference Status Pe rforming Location 1 INR, fingerstick (POC) 03/11/2015 11:18-0400 1.9 INR Final 2 Target range 03/11/2015 11:18-0400 Final Therapeutic ranges for non-o perative patients: [...]
--- OUTSIDE RECORDS SUMMARY | 2023-09-08 01:01 | External Medical Summary ---
Author Name Unknown Organization K01:[facility], [address] [address] Laboratory Report Ordering Provider Test Date Status [facility] SCEN PK 07/25/2014 11:46:00-0400 Fin al Obs # Observation Date Value ABNL Reference Status Pe rforming Location 1 INR, fingerstick (POC) 07/25/2014 11:47-0400 2.3 INR Final 2 Target range 07/25/2014 11:47-0400 Final Therapeutic ranges for non-o perative patients: [...]
--- OUTSIDE RECORDS SUMMARY | 2023-09-08 01:01 | External Medical Summary ---
Author Name Unknown Organization K01:[facility], [address] [id number] Laboratory Report Ordering Provider Test Date Status NIXON KEVIN 06/07/2014 15:53:00-0400 Final Obs # Observation Date Value ABNL Reference Status Pe rforming Location 1 Digoxin 06/07/2014 21:16-0400 0.4 L 0.5-2.0 ng/mL Final
--- OUTSIDE RECORDS SUMMARY | 2023-09-08 01:01 | External Medical Summary ---
Author Name Unknown Organization K01:[facility], [address] [id number] Laboratory Report Ordering Provider Test Date Status [facility] SCEN PK 05/18/2014 11:19:00-0400 Fin al Obs # Observation Date Value ABNL Reference Status Pe rforming Location 1 INR, fingerstick (POC) 05/18/2014 11:20-0400 2.2 INR Final 2 Target range 05/18/2014 11:20-0400 Final Therapeutic ranges for non-o perative patients: [...]
--- OUTSIDE RECORDS SUMMARY | 2023-09-08 01:02 | External Medical Summary ---
Author Name Unknown Organization K09:[facility] [address] [facility] [address] Laboratory Report Ordering Provider Test Date Status LUISITO MONAE MD 11/27/2013 10:43:00-0500 Final Obs # Observation Date Value ABNL Reference Status Pe rforming Location 1 WBC 11/27/2013 10:59-0500 7.22 4.00-10.80 K/uL Final 2 RBC 11/27/2013 10:59-0500 4.49 L 4.50-5.25 M/uL Final 3 HGB 11/27/2013 10:59-0500 14.3 14.0-16.5 g/dL Final 4 HCT 11/27/2013 10:59-0500 42.4 40.0-47.0 % Final 5 MCV 11/27/2013 10:59-0500 94.4 82.0-99.5 fL Final 6 MCH 11/27/2013 10:59-0500 31.8 27.0-34.0 pg Final 7 MCHC 11/27/2013 10:59-0500 33.7 32.0-36.0 g/dL Final 8 RDW 11/27/2013 10:59-0500 13.3 11.5-15.5 % Final 9 PLT 11/27/2013 10:59-0500 197 140-400 K/uL Final 10 MPV 11/27/2013 10:59-0500 9.5 6.6-11.1 fL Final 11 Segs 11/27/2013 10:59-0500 54 40-75 % Final 12 Lymphocytes 11/27/2013 10:59-0500 32 18-42 % Final 13 Monos 11/27/2013 10:59-0500 10 1-11 % Final 14 Eosinophils 11/27/2013 10:59-0500 4 0-6 % Final 15 Basos 11/27/2013 10:59-0500 0 0-2 % Final 16 Segmented Neutrophils, Abs 11/27/2013 10:59-0500 3.90 1.8-7.7 K/uL Final 17 Lymphs, Abs 11/27/2013 10:59-0500 2.32 1.0-4.8 K/uL Final 18 Monos, Abs 11/27/2013 10:59-0500 0.73 0.0-1.1 K/uL Final 19 Eos, Abs 11/27/2013 10:59-0500 0.25 0.0-0.7 K/uL Final 20 Basos, Abs 11/27/2013 10:59-0500 0.02 0.0-0.2 K/uL Final
--- OUTSIDE RECORDS SUMMARY | 2023-09-08 01:02 | External Medical Summary ---
Author Name [facility] Organization K01:[facility], [address] [address] Support Name Relationship Address Phone [facility] PROV Unknown Unavaila ble Laboratory Report Ordering Provider Test Date Status [facility] 02/16/2013 11:23:00-0400 Fin al Obs # Observation Date Value ABNL Reference Status Pe rforming Location 1 INR, fingerstick (POC) 02/16/2013 12:34-0400 4.2 INR Final 2 Target range 02/16/2013 12:34-0400 Final Therapeutic ranges for non-o perative patients: [...]
--- OUTSIDE RECORDS SUMMARY | 2023-09-08 01:02 | External Medical Summary ---
Author Name Unknown Organization K09:[facility], [address], [place] [address] Laboratory Report Ordering Provider Test Date Status LUISITO MONAE MD 11/27/2013 10:43:00-0500 Final Obs # Observation Date Value ABNL Reference Status Pe rforming Location 1 hours fasting 11/27/2013 10:48-0500 12 hours Final 2 Triglyceride 11/27/2013 17:18-0500 77 <200 mg/dL Final TRIGLYCERIDE REFERENCE RANGE S (mg/dL) <150 NORMAL 150-199 BORDERLINE HIGH 200-499 HIGH >499 VERY HIGH 3 Cholesterol 11/27/2013 17:18-0500 130 <200 m g/dL Final TOTAL CHOLESTEROL REFERENCE RANGES(mg/dL) <200 DESIRABLE 200-239 BORDERLINE HIGH >239 HIGH 4 HDL 11/27/2013 17:18-0500 45 >39 mg/dL Final HDL CHOLESTEROL REFERENCE RA NGES(mg/dL) <40 LOW(UNDESIRABLE) >59 HIGH(DESIRABLE) 5 Cholesterol / HDL ratio 11/27/2013 17:18-0500 2.9 Final 6 LDL, (calculated) 11/27/2013 17:18-0500 70 0-129 mg/dL Final LDL CHOLESTEROL REFERENCE RA NGES(mg/dL) <100 OPTIMAL GOAL FOR HIGH R ISK PATIENTS 100-129 NEAR OR ABOVE NORMAL 130-159 BORDERLINE HIGH 160-189 HIGH >189 VERY HIGH TRIGLYCERIDE REFERENCE RANGES (mg/dL) <150 NORMAL 150-199 BORDERLINE HIGH 200-499 HIGH >499 VERY HIGH TOTAL CHOLESTEROL REFERENCE RANGES(mg/dL) <200 DESIRABLE 200-239 BORDERLINE HIGH >239 HIGH HDL CHOLESTEROL REFERENCE RANGES(mg/dL) <40 LOW(UNDESIRABLE) >59 HIGH(DESIRABLE) LDL CHOLESTEROL REFERENCE RANGES(mg/dL) <100 OPTIMAL GOAL FOR HIGH RISK PATIENTS 100-129 NEAR OR ABOVE NORMAL 130-159 BORDERLINE HIGH 160-189 HIGH >189 VERY HIGH
--- OUTSIDE RECORDS SUMMARY | 2023-09-08 01:02 | External Medical Summary ---
Author Name Unknown Organization K09:[facility] [address], [facility] [address] Laboratory Report Ordering Provider Test Date Status LUISITO MONAE MD 05/23/2013 13:20:000400 Final Obs # Observation Date Value ABNL Reference Status Pe rforming Location 1 BUN 05/23/2013 14:0 16 6-20 mg/dL Final 2 Creatinine 05/23/2013 14:0 1.1 0.7-1.3 mg/dL Final GFR should be used to assess renal function. Plasma/Serum creatinine may not be able to properly reflect renal function in some cases. 3 GFR (estimated) 05/23/2013 14:0 >60.0 >6 0 mL/min Final 4 Sodium 05/23/2013 14:0400 138 135-146 mm ol/L Final 5 Potassium 05/23/2013 14:0400 4.3 3.5-5.1 mmol/L Final 6 Cl 05/23/2013 14:0400 102 98-111 mmo l/L Final 7 CO2 05/23/2013 14:0 28 22-32 mmol /L Final 8 Anion gap 05/23/2013 14:0400 8 7-15 mmo l/L Final 9 Glucose 05/23/2013 14:0 89 70-120 mg/ dL Final 10 Albumin 05/23/2013 14:0400 3.9 3.8-5.0 g/ dL Final 11 AST (Aspartate aminotransferase) 05/23/2013 14:0400 20 10-50 U/L Final 12 Alk Phos 05/23/2013 14:0 79 0-153 U/L Final 13 Bilirubin, Total 05/23/2013 14:0400 0.3 0 .3-1.3 mg/dL Final 14 Calcium 05/23/2013 14:0400 9.2 8.3-10.5 m g/dL Final 15 Protein 05/23/2013 14:0400 7.0 6.0-8.3 g/ dL Final 16 ALT (Alanine aminotransferase) 05/23/2013 14:27-0400 11 10-50 U/L Final GFR should be used to assess renal function. Plasma/Serum creatinine may not be able to properly reflect renal function in some cases.
--- OUTSIDE RECORDS SUMMARY | 2023-09-08 01:02 | External Medical Summary ---
Author Name [facility] Organization K01[facility], [address] [address] Support Name Relationship Address Phone [facility] PROV Unknown Unavaila ble Laboratory Report Ordering Provider Test Date Status [facility] 09/26/2012 10:24:00-0500 Fin al Obs # Observation Date Value ABNL Reference Status Pe rforming Location 1 INR, fingerstick (POC) 09/26/2012 10:20-0500 3.0 INR Final 2 Target range 09/26/2012 10:20-0500 Final Therapeutic ranges for non-o perative patients: [...]
--- OUTSIDE RECORDS SUMMARY | 2023-09-08 01:02 | External Medical Summary ---
Author Name [facility], [address] [address] Support Name Relationship Address Phone [facility] PROV Unknown Unavaila ble Laboratory Report Ordering Provider Test Date Status [facility] 03/07/2013 13:51:00-0400 Fin al Obs # Observation Date Value ABNL Reference Status Pe rforming Location 1 INR, fingerstick (POC) 03/07/2013 13:46-0400 3.6 INR Final 2 Target range 03/07/2013 13:46-0400 Final Therapeutic ranges for non-o perative patients: [...]
--- OUTSIDE RECORDS SUMMARY | 2023-09-08 01:02 | External Medical Summary ---
Author Name Unknown Organization K01:[facility], [address] [id number] Laboratory Report Ordering Provider Test Date Status [facility] SCEN PK 06/30/2013 11:22:00-0400 Fin al Obs # Observation Date Value ABNL Reference Status Pe rforming Location 1 INR, fingerstick (POC) 06/30/2013 11:23-0400 3.4 INR Final 2 Target range 06/30/2013 11:23-0400 Final Therapeutic ranges for non-o perative patients: [...]
--- OUTSIDE RECORDS SUMMARY | 2023-09-08 01:02 | External Medical Summary ---
Author Name Unknown Organization K09:[facility], [address], [place] [address] Laboratory Report Ordering Provider Test Date Status LUISITO MONAE MD 05/23/2013 13:20:00-0400 Final Obs # Observation Date Value ABNL Reference Status Pe rforming Location 1 hours fasting 05/23/2013 13:22-0400 0 hours Final 2 Triglyceride 05/23/2013 19:00-0400 265 H <200 mg/dL Final TRIGLYCERIDE REFERENCE RANGE S (mg/dL) __ <150 NORMAL 150-199 BORDERLINE HIGH 200-499 HIGH >499 VERY HIGH 3 Cholesterol 05/23/2013 19:00-0400 149 <200 m g/dL Final TOTAL CHOLESTEROL REFERENCE RANGES(mg/dL) __ <200 DESIRABLE 200-239 BORDERLINE HIGH >239 HIGH 4 HDL 05/23/2013 19:00-0400 43 >39 mg/dL Final HDL CHOLESTEROL REFERENCE RA NGES(mg/dL) __ <40 LOW(UNDESIRABLE) >59 HIGH(DESIRABLE) 5 Cholesterol / HDL ratio 05/23/2013 19:00-0400 3.5 Final 6 LDL, (calculated) 05/23/2013 19:00-0400 53 0-129 mg/dL Final LDL CHOLESTEROL REFERENCE RA NGES(mg/dL) __ <100 OPTIMAL GOAL FOR HIGH R ISK [...]
--- OUTSIDE RECORDS SUMMARY | 2023-09-08 01:02 | External Medical Summary ---
Author Name Unknown Organization K01:[facility], [address] [address] Laboratory Report Ordering Provider Test Date Status [facility] SCEN PK 08/04/2013 11:18:00-0400 Fin al Obs # Observation Date Value ABNL Reference Status Pe rforming Location 1 INR, fingerstick (POC) 08/04/2013 11:18-0400 2.6 INR Final 2 Target range 08/04/2013 11:18-0400 Final Therapeutic ranges for non-o perative [...]
--- OUTSIDE RECORDS SUMMARY | 2023-09-08 01:02 | External Medical Summary ---
Author Name [facility] Organization K01[facility], [address] [address] Support Name Relationship Address Phone [facility] PROV Unknown Unavaila ble Laboratory Report Ordering Provider Test Date Status [facility] 07/29/2012 14:57:00-0400 Fin al Obs # Observation Date Value ABNL Reference Status Pe rforming Location 1 INR, fingerstick (POC) 07/29/2012 14:53-0400 3.3 INR Final 2 Target range 07/29/2012 14:53-0400 Final Therapeutic ranges for non-o perative patients: [...]
--- OUTSIDE RECORDS SUMMARY | 2023-09-08 01:02 | External Medical Summary ---
Author Name Unknown Organization K01:[facility], [address] [id number] Laboratory Report Ordering Provider Test Date Status [facility] SCEN PK 09/29/2013 11:11:00-0500 Fin al Obs # Observation Date Value ABNL Reference Status Pe rforming Location 1 INR, fingerstick (POC) 09/29/2013 11:10-0500 2.6 INR Final 2 Target range 09/29/2013 11:10-0500 Final Therapeutic ranges for non-o perative patients: [...]
--- OUTSIDE RECORDS SUMMARY | 2023-09-08 01:02 | External Medical Summary ---
Author Name Unknown Organization K01:[facility], [address] [address] Laboratory Report Ordering Provider Test Date Status [facility] SCEN PK 09/01/2013 10:43:00-0400 Fin al Obs # Observation Date Value ABNL Reference Status Pe rforming Location 1 INR, fingerstick (POC) 09/01/2013 10:53-0400 2.8 INR Final 2 Target range 09/01/2013 10:53-0400 Final Therapeutic ranges for non-o perative patients: [...]
--- OUTSIDE RECORDS SUMMARY | 2023-09-08 01:02 | External Medical Summary ---
Author Name Unknown Organization K01:[facility], [address] [address] Laboratory Report Ordering Provider Test Date Status LUISITO MONAE MD 11/27/2013 10:43:00-0500 Final Obs # Observation Date Value ABNL Reference Status Pe rforming Location 1 TSH 11/27/2013 17:23-0500 4.47 H 0.27-4.2 uIU/mL Final
--- OUTSIDE RECORDS SUMMARY | 2023-09-08 01:02 | External Medical Summary ---
Author Name DOV HERRING Organization K09:[facility], [address], [place] [address] Support Name Relationship Address Phone DORITA MONAE MD PROV Unknown Unavailab le Laboratory Report Ordering Provider Test Date Status DORITA MONAE MD 11/24/2012 09:43:00-0500 Final Obs # Observation Date Value ABNL Reference Status Pe rforming Location 1 hours fasting 11/24/2012 09:46-0500 13 hours Final 2 Triglyceride 11/24/2012 18:43-0500 85 <200 mg/dL Final TRIGLYCERIDE REFERENCE RANGE S (mg/dL) __ <150 NORMAL 150-199 BORDERLINE HIGH 200-499 HIGH >499 VERY HIGH 3 Cholesterol 11/24/2012 18:43-0500 124 <200 m g/dL Final TOTAL CHOLESTEROL REFERENCE RANGES(mg/dL) __ <200 DESIRABLE 200-239 BORDERLINE HIGH >239 HIGH 4 HDL 11/24/2012 18:43-0500 43 >39 mg/dL Final HDL CHOLESTEROL REFERENCE RA NGES(mg/dL) __ <40 LOW(UNDESIRABLE) >59 HIGH(DESIRABLE) 5 Cholesterol / HDL ratio 11/24/2012 18:43-0500 2.9 Final 6 LDL, (calculated) 11/24/2012 18:43-0500 64 0-129 mg/dL Final LDL CHOLESTEROL REFERENCE RA [...]
--- OUTSIDE RECORDS SUMMARY | 2023-09-08 01:02 | External Medical Summary ---
Author Name [facility] Organization K01:[facility], [address] [address] Support Name Relationship Address Phone [facility] PROV Unknown Unavaila ble Laboratory Report Ordering Provider Test Date Status [facility] 04/25/2013 13:12:00-0400 Fin al Obs # Observation Date Value ABNL Reference Status Pe rforming Location 1 INR, fingerstick (POC) 04/25/2013 13:130400 2.8 INR Final 2 Target range 04/25/2013 13:130400 Final Therapeutic ranges for non-o perative patients: [...]
--- OUTSIDE RECORDS SUMMARY | 2023-09-08 01:02 | External Medical Summary ---
Author Name Unknown Organization K01:[facility], [address] [id number] Laboratory Report Ordering Provider Test Date Status [facility] SCEN PK 10/27/2013 11:03:00-0500 Fin al Obs # Observation Date Value ABNL Reference Status Pe rforming Location 1 INR, fingerstick (POC) 10/27/2013 11:02-0500 2.5 INR Final 2 Target range 10/27/2013 11:02-0500 Final Therapeutic ranges for non-o perative patients: [...]
--- OUTSIDE RECORDS SUMMARY | 2023-09-08 01:02 | External Medical Summary ---
Author Name DOV HERRING Organization K09:[facility], [address] , [place] [address] Support Name Relationship Address Phone DORITA MONAE MD PROV Unknown Unavailab le Laboratory Report Ordering Provider Test Date Status DORITA MONAE MD 11/24/2012 09:43:00-0500 Final Obs # Observation Date Value ABNL Reference Status Pe rforming Location 1 BUN 11/24/2012 10:57-0500 17 6-20 mg/dL Final 2 Creatinine 11/24/2012 10:57-0500 1.1 0.7-1.3 mg/dL Final GFR should be used to assess renal function. Plasma/Serum creatinine may not be able to properly reflect renal function in some cases. 3 GFR (estimated) 11/24/2012 10:57-0500 >60.0 >6 0 mL/min Final 4 Sodium 11/24/2012 10:57-0500 140 135-146 mm ol/L Final 5 Potassium 11/24/2012 10:57-0500 4.6 3.5-5.1 mmol/L Final 6 Cl 11/24/2012 10:57-0500 105 98-111 mmo l/L Final 7 CO2 11/24/2012 10:57-0500 25 22-32 mmol /L Final 8 Anion gap 11/24/2012 10:57-0500 10 7-15 mmo l/L Final 9 Glucose 11/24/2012 10:57-0500 96 70-120 mg/ dL Final 10 Albumin 11/24/2012 10:57-0500 3.9 3.8-5.0 g/ dL Final 11 AST (Aspartate aminotransferase) 11/24/2012 10:57-0500 20 10-50 U/L Final 12 Alk Phos 11/24/2012 10:57-0500 58 0-153 U/L Final 13 Bilirubin, Total 11/24/2012 10:57-0500 0.6 0 .3-1.3 mg/dL Final 14 Calcium 11/24/2012 10:57-0500 9.2 8.3-10.5 m g/dL Final 15 Protein 11/24/2012 10:57-0500 6.5 6.0-8.3 g/ dL Final 16 ALT (Alanine aminotransferase) 11/24/2012 10:57-0500 24 10-50 U/L Final GFR should be used to assess renal function. Plasma/Serum creatinine may not be able to properly reflect renal function in some cases.
--- OUTSIDE RECORDS SUMMARY | 2023-09-08 01:02 | External Medical Summary ---
Author Name [facility] Organization K01:[facility], [address] [address] Support Name Relationship Address Phone [facility] PROV Unknown Unavaila ble Laboratory Report Ordering Provider Test Date Status [facility] 08/29/2012 09:58:00-0400 Fin al Obs # Observation Date Value ABNL Reference Status Pe rforming Location 1 INR, fingerstick (POC) 08/29/2012 09:54-0400 3.2 INR Final 2 Target range 08/29/2012 09:54-0400 Final Therapeutic ranges for non-o perative patients: [...]
--- OUTSIDE RECORDS SUMMARY | 2023-09-08 01:02 | External Medical Summary ---
Author Name Unknown Organization K01:[facility], [address] [address] Laboratory Report Ordering Provider Test Date Status LUISITO MONAE MD 05/23/2013 13:18:00-0400 Final Obs # Observation Date Value ABNL Reference Status Pe rforming Location 1 INR, fingerstick (POC) 05/23/2013 13:0400 2.8 INR Final 2 Target range 05/23/2013 13:19-0400 Final Therapeutic ranges for non-o perative patients: [...]
--- OUTSIDE RECORDS SUMMARY | 2023-09-08 01:02 | External Medical Summary ---
Author Name Unknown Organization K09:[facility] [place] Malia martins Marcus Fernandez, [facility] [address] Laboratory Report Ordering Provider Test Date Status LUISITO MONAE MD 11/27/2013 10:43:00-0500 Final Obs # Observation Date Value ABNL Reference Status Pe rforming Location 1 BUN 11/27/2013 11:49-0500 17 6-20 mg/dL Final 2 Creatinine 11/27/2013 11:49-0500 1.1 0.7-1.3 mg/dL Final GFR should be used to assess renal function. Plasma/Serum creatinine may not be able to properly reflect renal function in some cases. 3 GFR (estimated) 11/27/2013 11:49-0500 >60.0 >6 0 mL/min Final 4 Sodium 11/27/2013 11:49-0500 137 135-146 mm ol/L Final 5 Potassium 11/27/2013 11:49-0500 4.4 3.5-5.1 mmol/L Final 6 Cl 11/27/2013 11:49-0500 102 98-111 mmo l/L Final 7 CO2 11/27/2013 11:49-0500 27 22-32 mmol /L Final 8 Anion gap 11/27/2013 11:49-0500 8 7-15 mmo l/L Final 9 Glucose 11/27/2013 11:49-0500 92 70-120 mg/ dL Final 10 Albumin 11/27/2013 11:49-0500 4.1 3.8-5.0 g/ dL Final 11 AST (Aspartate aminotransferase) 11/27/2013 11:49-0500 20 10-50 U/L Final 12 Alk Phos 11/27/2013 11:49-0500 81 0-153 U/L Final 13 Bilirubin, Total 11/27/2013 11:49-0500 0.5 0 .3-1.3 mg/dL Final 14 Calcium 11/27/2013 11:49-0500 9.1 8.3-10.5 m g/dL Final 15 Protein 11/27/2013 11:49-0500 7.3 6.0-8.3 g/ dL Final 16 ALT (Alanine aminotransferase) 11/27/2013 11:49-0500 14 10-50 U/L Final GFR should be used to assess renal function. Plasma/Serum creatinine may not be able to properly reflect renal function in some cases.
--- OUTSIDE RECORDS SUMMARY | 2023-09-08 01:02 | External Medical Summary ---
Author Name [facility], [address] [address] Support Name Relationship Address Phone [facility] PROV Unknown Unavaila ble Laboratory Report Ordering Provider Test Date Status [facility] 12/22/2012 11:23:00-0500 Fin al Obs # Observation Date Value ABNL Reference Status Pe rforming Location 1 INR, fingerstick (POC) 12/22/2012 11:19-0500 3.2 INR Final 2 Target range 12/22/2012 11:19-0500 Final Therapeutic ranges for non-o perative patients: [...]
--- OUTSIDE RECORDS SUMMARY | 2023-09-08 01:02 | External Medical Summary ---
Author Name DOV HERRING Organization K01:[place] [address] [address] Support Name Relationship Address Phone DORITA MONAE MD PROV Unknown Unavailab le Laboratory Report Ordering Provider Test Date Status DORITA MONAE MD 11/24/2012 09:43:00-0500 Final Obs # Observation Date Value ABNL Reference Status Pe rforming Location 1 TSH 11/24/2012 18:51-0500 2.87 0.27-4.2 uIU/mL Final
--- OUTSIDE RECORDS SUMMARY | 2023-09-08 01:02 | External Medical Summary ---
Author Name [facility], [address] [address] Support Name Relationship Address Phone [facility] PROV Unknown Unavaila ble Laboratory Report Ordering Provider Test Date Status [facility] 10/27/2012 10:44:00-0500 Fin al Obs # Observation Date Value ABNL Reference Status Pe rforming Location 1 INR, fingerstick (POC) 10/27/2012 10:39-0500 2.8 INR Final 2 Target range 10/27/2012 10:39-0500 Final Therapeutic ranges for non-o perative patients: [...]
--- OUTSIDE RECORDS SUMMARY | 2023-09-08 01:02 | External Medical Summary ---
Author Name [facility] Organization K[facility], [address] [address] Support Name Relationship Address Phone [facility] PROV Unknown Unavaila ble Laboratory Report Ordering Provider Test Date Status [facility] 01/19/2013 13:06:00-0400 Fin al Obs # Observation Date Value ABNL Reference Status Pe rforming Location 1 INR, fingerstick (POC) 01/19/2013 13:010400 2.6 INR Final 2 Target range 01/19/2013 13:010400 Final Therapeutic ranges for non-o perative patients: [...]
--- OUTSIDE RECORDS SUMMARY | 2023-09-08 01:02 | External Medical Summary ---
Author Name Unknown Organization K09:[facility] [address] [facility] [address] Laboratory Report Ordering Provider Test Date Status LUISITO MONAE MD 05/23/2013 13:20:00-0400 Final Obs # Observation Date Value ABNL Reference Status Pe rforming Location 1 WBC 05/23/2013 13:53-0400 7.62 4.00-10.80 K/uL Final 2 RBC 05/23/2013 13:53-0400 4.38 L 4.50-5.25 M/uL Final 3 HGB 05/23/2013 13:53-0400 14.2 14.0-16.5 g/dL Final 4 HCT 05/23/2013 13:53-0400 41.4 40.0-47.0 % Final 5 MCV 05/23/2013 13:53-0400 94.5 82.0-99.5 fL Final 6 MCH 05/23/2013 13:53-0400 32.4 27.0-34.0 pg Final 7 MCHC 05/23/2013 13:53-0400 34.3 32.0-36.0 g/dL Final 8 RDW 05/23/2013 13:53-0400 13.7 11.5-15.5 % Final 9 PLT 05/23/2013 13:53-0400 201 140-400 K/uL Final 10 MPV 05/23/2013 13:53-0400 10.1 6.6-11.1 fL Final 11 diff type 05/23/2013 13:53-0400 AUTO Final 12 Segs 05/23/2013 13:54-0400 55 40-75 % Final 13 Lymphocytes 05/23/2013 13:54-0400 32 18-42 % Final 14 Monos 05/23/2013 13:54-0400 11 1-11 % Final 15 Eosinophils 05/23/2013 13:54-0400 2 0-6 % Final 16 Segmented Neutrophils, Abs 05/23/2013 13:54-0400 4.19 1.8-7.7 K/uL Final 17 Lymphs, Abs 05/23/2013 13:54-0400 2.44 1.0-4.8 K/uL Final 18 Monos, Abs 05/23/2013 13:54-0400 0.84 0.0-1.1 K/uL Final 19 Eos, Abs 05/23/2013 13:54-0400 0.15 0.0-0.7 K/uL Final
--- OUTSIDE RECORDS SUMMARY | 2023-09-08 01:02 | External Medical Summary ---
Author Name GAVINO HERRING Organization K01:[employer] [address] [address] Support Name Relationship Address Phone WESLY MANCIA MD PROV Unknown Unavailabl e Laboratory Report Ordering Provider Test Date Status WESLY MANCIA MD 11/24/2012 09:56:00-0500 Final Obs # Observation Date Value ABNL Reference Status Pe rforming Location 1 INR, fingerstick (POC) 11/24/2012 09:51-0500 3.3 INR Final 2 Target range 11/24/2012 09:51-0500 Final Therapeutic ranges for non-o perative patients: [...]
--- OUTSIDE RECORDS SUMMARY | 2023-09-08 01:02 | External Medical Summary ---
Author Name Unknown Organization [facility], [address] [address] Laboratory Report Ordering Provider Test Date Status LUISITO MONAE MD 11/27/2013 10:43:00-0500 Final Obs # Observation Date Value ABNL Reference Status Pe rforming Location 1 25OH VITAMIN D TOTAL 11/27/2013 17:36-0500 26.3 L 30.0-100.0 ng/mL Final Deficient: <20.0 ng/mL Insufficient: 20.0-29.9 ng/m l Sufficient: 30.0-100.0 ng/ml High: >100.0 ng/ml Refer to [facility] for Practitioners Best Pract ice Guidelines for therapeutic recommendations. Deficient: <20.0 ng/mL Insufficient: 20.0-29.9 ng/ml Sufficient: 30.0-100.0 ng/ml High: >100.0 ng/ml Refer to [facility] for Practitioners Best Practice Guidelines for therapeutic recommendations.
--- OUTSIDE RECORDS SUMMARY | 2023-09-08 01:02 | External Medical Summary ---
Author Name [facility], [address] [address] Support Name Relationship Address Phone [facility] PROV Unknown Unavaila ble Laboratory Report Ordering Provider Test Date Status [facility] 03/28/2013 15:02:00-0400 Fin al Obs # Observation Date Value ABNL Reference Status Pe rforming Location 1 INR, fingerstick (POC) 03/28/2013 14:57-0400 2.4 INR Final 2 Target range 03/28/2013 14:57-0400 Final Therapeutic ranges for non-o perative patients: [...]
[2023-09-08] MEDS: ACETAMINOPHEN 500 MG TAB PO SCH ×4 (01:22→17:47)
[2023-09-08 05:29] LABS: Hematocrit (blood only) 36.5 % (42.0-52.0); Mean Corpuscular Hemoglobin 34.6 pg (25.0-34.0); Mean Corpuscular Hgb Conc 35.6 g/dL (32.0-36.0); Mean Corpuscular Volume 97.1 fL (80.0-100.0); Mean Platelet Volume 10.6 fL (9.4-12.4); Platelet Count 143 K/uL (130-400); RDW Coefficient of Variation 13.4 % (11.5-14.5); RDW Standard Deviation 47.3 fL (36.4-46.3); Red Blood Count 3.76 M/uL (4.70-6.10); White Blood Count 7.37 K/ul (4.8-10.8)
[2023-09-08] MEDS: LEVOTHYROXINE SODIUM 75 MCG TABLET PO SCH (05:43)
[2023-09-08 05:45] LABS: Calcium 8.4 mg/dl (8.6-10.3); Potassium 3.6 mmol/L (3.5-5.1)
[2023-09-08 05:51] LABS: BUN Creatinine Ratio 20.9 (10-20); Creatinine Clr Calc Pharmacy 56.7 ml/min; Est GFR (African American) 86.9 ml/min
[2023-09-08 08:47] VITALS: RESP 16
[2023-09-08] MEDS: FUROSEMIDE 20 MG TAB PO SCH (09:53)
[2023-09-08] MEDS: ROSUVASTATIN CALCIUM 5 MG TAB PO SCH (09:54)
[2023-09-08] MEDS: METOPROLOL SUCC 25MG EXT REL TAB PO SCH (09:54)
[2023-09-08] MEDS: VALSARTAN/SACUBITRIL 26/24MG TAB PO SCH ×2 (09:54→19:43)
[2023-09-08] MEDS: CLOPIDOGREL BISULFATE 75 MG TAB PO SCH (10:27)
--- NOTE | 2023-09-08 17:12 | Hospitalist Progress Note ---
Date of Service September 08, 2023 Assessment & Plan (1) Aspiration pneumonia: Plan: Completed course of Unasyn Doing well on room air (2) Delirium: Plan: likely hospital induced delirium in the setting of pneumonia as well as pain contributing. Repeat head CT was negative. Recurrent delirium state, cont to reorient Continue Tylenol, transition to scheduled PO at 500mg q8h (3) Contusion of scalp: Plan: Traumatic scalp hematoma-resolved and optifoam has been removed. secondary to recurrent falls/ambulatory dysfunction (4) Fall: Plan: PT OT (5) Warfarin-induced coagulopathy: Plan: He received vitamin K 10 mg IV for reversal. -Continue to avoid warfarin at this time per cardiology. -Stable hgb, resume plavix (6) Anemia: Plan: Hb stable-new gross hematuria 2/2 traumatic damian manipulation per patient. -Discontinue Warfarin per cardiology. -Resume plavix Per urology there are no clots in tubing and observation is recommended. (7) CKD (chronic kidney disease), stage III: Plan: Chronic, creatinine at baseline. Continue to avoid nephrotoxic substances as able. (8) Gross hematuria: Plan: per plan above. (9) Coronary artery disease: Plan: Known history of ischemic cardiomyopathy. Elevated troponin likely secondary to acute illness in the setting of structural heart disease. Troponin trend re veals no acceleration upward. He is not demonstrating signs or symptoms of ACS at this time. Continue medical therapy. (10) ICD (implantable cardioverter-defibrillator) in place: (11) HTN (hypertension): Plan: Chronic, controlled, continue current therapy (12) Hypothyroidism: Plan: Slightly hypothyroid with a TSH of 6.5. Recheck in outpatient setting. For now continue home levothyroxine. (13) Ischemic cardiomyopathy: Plan: Chronic heart failure with reduced ejection fraction, compensated. -EF 25-25% -Continue guideline directed medical therapy. -Digoxin 0.125mg daily -Furosemide 20mg daily -Entresto 24-26 daily -Metoprolol succinate 25mg bid (14) Permanent atrial fibrillation: Plan: Chronic, stable. Continue digoxin, metoprolol per home regimen. Warfarin reversal given head trauma and therapeutic INR. Cardiology had a long discussion with patient and regarding risk versus benefit of long-term anticoagulation as it relates to his frequent falls and risk of injury. No coumadin moving forward. SCDs Full code Disposition-rehab pending resolution of delirium DO Darci Willams Hospitalist Admission and Anticipated Discharge Date Admission Date: September 02, 2023 Subjective NAEO Patient answered few questions Palliative consulted to discuss options with family Review of Systems Review of Systems: All systems reviewed & are unremarkable except as noted in Subjective Physical Exam Constitutional: resting, laying on side Results & Data Results & Data Vital Signs (Past 12 Hours) Vital Signs Temp Pulse Resp BP Pulse Ox O2 Del Method 09/08/23 16:11 37.1 C 53 L 16 117/66 96 Room Air 09/08/23 08:47 36.7 C 56 L 16 119/62 93 Room Air Laboratory Results Short CBC 09/08/23 Range/Units 04:57 WBC 7.37 (4.8-10.8) K/ul Hgb 13.0 L (14.0-18.0) g/dl Hct 36.5 L (42.0-52.0) % Plt Count 143 (130-400) K/uL BMP 09/08/23 04:57 Sodium 138 Potassium 3.6 Chloride 104 Carbon Dioxide 26 BUN 19 Creatinine 0.91 Glucose 77 Calcium 8.4 L Medications Administered Home Medications Medication Instructions Recorded Confirmed Last Taken nitroglycerin 0.4 mg sublingual 0.4 mg PO UD PRN Chest Pain ##0 07/06/14 09/01/23 Unknown tablet rosuvastatin 5 mg tablet 5 mg PO MWF ##0 07/06/14 09/01/23 09/01/23 clopidogrel 75 mg tablet 75 mg PO HS #0 tabs 03/26/18 09/01/23 08/31/23 coenzyme Q10 200 mg capsule 200 mg PO QAM ##0 03/26/18 09/01/23 09/01/23 digoxin 125 mcg (0.125 mg) tablet 0.125 mg PO 3XWK ##0 03/26/18 09/01/23 08/31/23 furosemide 20 mg tablet 40 mg PO QAM #0 tabs 03/26/18 09/01/23 09/01/23 cholecalciferol (vitamin D3) 50 2,000 units PO DAILY #0 tabs 07/14/19 09/01/23 09/01/23 mcg (2,000 unit) tablet cetirizine 10 mg tablet 10 mg PO QAM 07/16/20 09/01/23 09/01/23 sacubitril 24 mg-valsartan 26 mg 0.5 tab PO AMPM 07/16/20 09/01/23 09/01/23 tablet (Entresto) ipratropium bromide 21 mcg (0.03 2 spray intranasal BID PRN rhinitis 09/01/23 09/01/23 Unknown %) nasal spray levothyroxine 75 mcg tablet 75 mcg PO DAILYBB 09/01/23 09/01/23 09/01/23 metoprolol succinate 50 mg 50 mg PO UD 09/01/23 09/01/23 09/01/23 tablet,extended release 24 hr warfarin 5 mg tablet See Rx Instructions .Route .COMPLEX 09/01/23 09/01/23 09/01/23 Active Medications Generic Name Dose Route Start Last Admin Trade Name Freq PRN Reason Stop Dose Admin Acetaminophen 500 mg 09/08/23 09:00 09/08/23 09:54 Acetaminophen 500 Mg Tab PO 10/08/23 08:59 500 mg Q8H TORY Administration Clopidogrel Bisulfate 75 mg 09/04/23 09:00 09/08/23 10:27 Clopidogrel Bisulfate 75 Mg Tab PO 10/04/23 08:59 75 mg QAM TORY Administration Digoxin 0.125 mg 09/02/23 16:00 09/07/23 16:40 Digoxin 0.125 Mg Tab PO 10/02/23 15:59 0.125 mg [id number]@1600 TORY Administration Furosemide 20 mg 09/04/23 14:30 09/08/23 09:53 Furosemide 20 Mg Tab PO 10/04/23 14:29 20 mg QAM TORY Administration Levothyroxine Sodium 75 mcg 09/02/23 06:30 09/08/23 05:43 Levothyroxine Sodium 75 Mcg Tablet PO 10/02/23 06:29 75 mcg DAILYBB TORY Administration Melatonin 3 mg 09/04/23 19:29 09/06/23 21:10 Melatonin 3 Mg Tab PO 10/04/23 19:28 3 mg HS PRN Administration Sleep Metoprolol Succinate 25 mg 09/02/23 09:00 09/08/23 09:54 Metoprolol Succ 25mg Ext Rel Tab PO 10/02/23 08:59 Not Given BID TORY Olanzapine 2.5 mg 09/03/23 02:32 09/06/23 02:31 Olanzapine 10 Mg/2.1 Ml Sdv IM 10/03/23 02:31 2.5 mg Q4H PRN Administration Agitation Rosuvastatin Calcium 5 mg 09/03/23 09:00 09/08/23 09:54 Rosuvastatin Calcium 5 Mg Tab PO 10/03/23 08:59 5 mg [id number]@0900 TORY Administration Sacubitril/Valsartan 0.5 tab 09/02/23 09:00 09/08/23 09:54 Valsartan/Sacubitril 26/24mg Tab PO 10/02/23 08:59 0.5 tab BID TORY Administration (1) Aspiration pneumonia Aspiration pneumonia type: unspecified (3) Contusion of scalp Encounter type: initial encounter Qualified Code(s): S00.03XA - Contusion of scalp, initial encounter (4) Fall Encounter type: initial encounter Qualified Code(s): W19.XXXA - Unspecified fall, initial encounter (11) HTN (hypertension) Hypertension type: primary hypertension Qualified Code(s): I10 - Essential (primary) hypertension (12) Hypothyroidism Hypothyroidism type: unspecified Qualified Code(s): E03.9 - Hypothyroidism, unspecified
[2023-09-08 20:13] VITALS: TEMP 97.5
[2023-09-09] MEDS: ACETAMINOPHEN 500 MG TAB PO SCH ×2 (00:26→08:14)
[2023-09-09] MEDS: LEVOTHYROXINE SODIUM 75 MCG TABLET PO SCH (06:12)
[2023-09-09 07:33] LABS: Hematocrit (blood only) 35.2 % (42.0-52.0); Hemoglobin 12.3 g/dl (14.0-18.0); Mean Corpuscular Hemoglobin 34.4 pg (25.0-34.0); Mean Corpuscular Hgb Conc 34.9 g/dL (32.0-36.0); Mean Corpuscular Volume 98.3 fL (80.0-100.0); Mean Platelet Volume 9.8 fL (9.4-12.4); Platelet Count 148 K/uL (130-400); RDW Coefficient of Variation 13.8 % (11.5-14.5); RDW Standard Deviation 49.6 fL (36.4-46.3); Red Blood Count 3.58 M/uL (4.70-6.10); White Blood Count 7.22 K/ul (4.8-10.8)
--- NOTE | 2023-09-09 07:51 | Palliative Care Consultation ---
Date of Consultation September 09, 2023 Assessment & Plan (1) Dyspnea and respiratory abnormalities: from PNA which is improving, back to room air. +GUERIN (2) Weakness generalized: (3) Falls frequently: (4) Palliative care by specialist: Met with pt at bedside. Provided overview of Palliative Medicine, a subspecialty that provides specialized medical care for people living with a serious illness by offering a focus on quality of life. Palliative Medicine is often conflated with hospice: I advised patient/family that Palliative and hospice can be partners but we are not the same. It is important to understand the difference so that we may be informed, and not afraid. Palliative Medicine works to improve QOL through reduction of symptom burden/more control over their illness, for both the patient and family. Palliative medicine clinicians are board certified, specially-trained and another member of the patient's medical care team. We often provide an extra layer of support because our care is based on the needs of the patient, not the prognosis; as such, it's appropriate at any age/advancing stage of a serious illness and can be provided along with curative treatment. Palliative Medicine clinicians are also trained in advanced communication methodologies, to facilitate complex discussions about advanced illness planning, which are needed to help assure that the treatment choices match the patient's goals, aka delivering Goal Concordant care. Finally, we discussed that hospice is a visiting nurse service that focuses on care delivered at the very end of life for patients with terminal illness, with life expectancy less than 6 month. (5) Advanced care planning/counseling discussion: Pt was unable to participate in a conversation about goals. He cannot tell me HPI. He is mildly confused and while he can follow simple commands he cannot follow a lengthy discussion. There was no family present. When asked if he agreed he was sick and it is serious, pt replied "I don't know." When asked what would be his desired focus for his care he replied the same Plan * Unclear what the goals of care are at this time. Patient is not decisional. There was no family present. * Suggest a family meeting to review surrogate decision maker and establish goals. I defer meeting arrangement to care mgt and primary team, will be happy to join for the discussion. I am in clinic on but can be available on Wednesday between 930-1230. * I was unable to locate any AD paperwork. Thank you for allowing us to participate in the ongoing care of this patient. Please don't hesitate to call or page with any additional concerns. Dr. Magalis Orlando DNP Director, Palliative Care History of Present Illness Reason for Consultation: "family w/ ?about hospice/palliative" Attending Physician: Kera Mayo MD History of Present Illness 87yo male with aspirtation PNA complicated by delirium which is improving slowly remains on delirium care protocol completed Abtx back to room air worsening ambulatory dysfxn with falls, now with scalp hematoma which is improving, important to note he is anticoagulated for afib with plavix, had bleeding with warfarin +CKD III, CAD,AICD, HTN, hypothyroid, ICM EF 25% pt seen post PT , no family present he is wifty he admits to being tired he is not able to provide HPI he denies acute distress apart from fatigue and mild dyspnea post exertion Allergies Allergy/AdvReac Type Severity Reaction Status Date / Time No Known Allergies Allergy Verified 09/02/23 08:02 Home Medications Medication Instructions Recorded Confirmed Type nitroglycerin 0.4 mg sublingual 0.4 mg PO UD PRN Chest Pain ##0 07/06/14 09/01/23 History tablet rosuvastatin 5 mg tablet 5 mg PO MWF ##0 07/06/14 09/01/23 History clopidogrel 75 mg tablet 75 mg PO HS #0 tabs 03/26/18 09/01/23 History coenzyme Q10 200 mg capsule 200 mg PO QAM ##0 03/26/18 09/01/23 History digoxin 125 mcg (0.125 mg) tablet 0.125 mg PO 3XWK ##0 03/26/18 09/01/23 History furosemide 20 mg tablet 40 mg PO QAM #0 tabs 03/26/18 09/01/23 History cholecalciferol (vitamin D3) 50 2,000 units PO DAILY #0 tabs 07/14/19 09/01/23 History mcg (2,000 unit) tablet cetirizine 10 mg tablet 10 mg PO QAM 07/16/20 09/01/23 History sacubitril 24 mg-valsartan 26 mg 0.5 tab PO AMPM 07/16/20 09/01/23 History tablet (Entresto) ipratropium bromide 21 mcg (0.03 2 spray intranasal BID PRN rhinitis 09/01/23 09/01/23 History %) nasal spray levothyroxine 75 mcg tablet 75 mcg PO DAILYBB 09/01/23 09/01/23 History metoprolol succinate 50 mg 50 mg PO UD 09/01/23 09/01/23 History tablet,extended release 24 hr warfarin 5 mg tablet See Rx Instructions .Route .COMPLEX 09/01/23 09/01/23 History Patient History Medical History (Updated 09/09/23 @ 07:45 by Magalis Orlando DNP) Microcytic anemia Gait abnormality Permanent atrial fibrillation Ischemic cardiomyopathy Systolic heart failure Arthritis Myocardial Infarction Pacemaker Congestive heart failure TIA (transient ischemic attack) Atrial fibrillation with rapid ventricular response Surgical History H/O hernia repair History of appendectomy H/O percutaneous transluminal coronary angioplasty Family History Father Stroke syndrome Sister Coronary heart disease Mother Cardiac disorder Social History Smoking Status: Former smoker Cigarettes Per Day: 20; Second Hand Exposure: Yes; Do You Dip or Chew Tobacco: No; Hx Alcohol Use: Yes Alcohol type: beer Hx Substance Use: No Preferred Language: Turkmen Communication Ability: Effective Visual Impairment: No Limitations Hearing Ability: Normal Digital Photo Printer Required: No Beliefs That Will Affect Care: None Current Living Situation: Spouse Current Living Situation Comment: Independent living at [facility] Feel Safe at Home: Yes Childhood Exposure to Second-Hand Smoke: No caffeine: Yes Dental Care, Regularly: Yes Physical Activity Frequency: 1-2 Times per Week Seatbelt Use: always Sunscreen Use: No Assistive Devices: Cane and Walker Review of Systems Review of Systems: Unobtainable due to mental health condition Physical Exam Physical Exam: resting in bed, NAD mildly confused, alert to self but cannot provide HPI, +delirium respiration easy at rest, mild dyspnea with conversation diminished breath sounds CV irreg irreg abd soft, BS+ +generalized weakness skin pale but warm Results & Data Vital Signs (Past 12 Hours) Vital Signs Temp Pulse Resp BP Pulse Ox O2 Del Method 09/08/23 20:12 36.4 C L 58 L 16 114/70 95 Room Air Laboratory Results data reviewed Diagnostic Findings data reviewed PG Care Time/CCT Total # of Minutes Spent Total Time Spent: 75 Total Time Spent with Patient: Total time spent is greater than 50% in coordination of care (as documented) at patient's floor/unit and/or counseling patient: [place] [address] IN/OBS CONSULT LVL 5,80M Patient Type New History Comprehensive Exam Comprehensive Medical Decision Making Moderate Complexity Diagnoses Dyspnea and respiratory abnormalities R06.00; R06.89 Weakness generalized R53.1 Falls frequently R29.6 Palliative care by specialist Z51.5 Advanced care planning/counseling discussion Z71.89
[2023-09-09 07:56] VITALS: PULSE 52; O2SAT 99
[2023-09-09 08:00] LABS: BUN Creatinine Ratio 19.4 (10-20); Calcium 8.6 mg/dl (8.6-10.3); Creatinine Clr Calc Pharmacy 52.7 ml/min; Est GFR (African American) 79.5 ml/min; Est GFR (Non-African American) 68.6 ml/min; Potassium 3.9 mmol/L (3.5-5.1)
[2023-09-09] MEDS: VALSARTAN/SACUBITRIL 26/24MG TAB PO SCH (08:14)
[2023-09-09] MEDS: FUROSEMIDE 20 MG TAB PO SCH (08:15)
[2023-09-09] MEDS: CLOPIDOGREL BISULFATE 75 MG TAB PO SCH (08:15)
[2023-09-09] MEDS ORDERED: TAMSULOSIN HCL 0.4 MG CAP PO ONE (08:56)
--- NOTE | 2023-09-09 11:48 | Communication Note ---
Date of Service: September 09, 2023 Contacted via primary service due to concerns regarding resting bradycardia. Pacemaker interrogation reveals intermittent ventricular pacing 18%, appropriate for underlying ischemic heart disease with attempting to minimize ventricular paced Pacemaker transiently increased to 60 bpm for additional heart rate but if pacing frequency increases would resume at 50 We will discontinue digoxin
--- NOTE | 2023-09-09 13:20 | Electrocardiogram Report ---
Test Reason : Blood Pressure : / mmHG Vent. Rate : 056 BPM Atrial Rate : 056 BPM P-R Int : 184 ms QRS Dur : 154 ms QT Int : 534 ms P-R-T Axes : 000 -61 208 degrees QTc Int : 515 ms Sinus bradycardia Left axis deviation Non-specific intra-ventricular conduction delay Anteroseptal infarct , age undetermined T wave abnormality, consider inferolateral ischemia Abnormal ECG When compared with ECG of 01-SEP-2023 17:20, Sinus rhythm has replaced Electronic ventricular pacemaker Confirmed by Phill Culver ([id number]) on 09/09/2023 1:20:02 PM Referred By: REFERRED SELF Confirmed By:Phill Culver
[2023-09-09 14:11] VITALS: BP 97/64
--- NOTE | 2023-09-09 15:45 | Discharge Summary ---
Discharge Summary Date of Service September 09, 2023 Notes For Next Care Provider Pacemaker increased pacing from 50 to 60 bpm in interim. Medication Changes From Visit Discontinued Digoxin Disconitined Warfarin Admission HPI Per Admitting Provider History obtained from patient, family, and records. 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 Last confinement 2017 for sepsis secondary to aspiration pneumonitis. Patient seen at [facility] last month for follow-up visit. Concern for ambulatory dysfunction secondary to left knee issues. Patient losing balance easily. 2 falls in 1 month as per documentation. Benefits of anticoagulation still appear to outweigh risks as per note. Patient coughing more than usual the last few days as per . Junky cough symptoms. Occasional sensation of food getting stuck in his throat as per . No recent COVID-19 contacts. Patient was getting out of the vehicle when he lost his balance causing him to fall backwards as he tried to get to his walker. Bleeding wound at the back of the head. Achy head and upper neck pain. No chest pain, no SOB. No syncope/LOC. IV ceftriaxone administered at the ER. 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 Repeat head CT was negative. Recurrent delirium state, cont to reorient Continue Tylenol scheduled PO at 500mg q8h (3) Contusion of scalp: Traumatic scalp hematoma-resolved and optifoam has been removed. secondary to recurrent falls/ambulatory dysfunction (4) Fall: rehab (5) Warfarin-induced coagulopathy: Discontinue warfarin (6) Anemia: Hb stable-new gross hematuria 2/2 traumatic damian manipulation per patient. -Discontinue Warfarin per cardiology. -Resume plavix Per urology there are no clots in tubing and observation is recommended. (7) CKD (chronic kidney disease), stage III: Chronic, creatinine at baseline. Continue to avoid nephrotoxic substances as able. (8) Gross hematuria: Damian discontinued, tamsulosin for urinary retention (9) Coronary artery disease: Known history of ischemic cardiomyopathy. Elevated troponin likely secondary to acute illness in the setting of structural heart disease. Troponin trend reveals no acceleration upward. He is not demonstrating signs or symptoms of ACS at this time. Continue medical therapy. (10) ICD (implantable cardioverter-defibrillator) in place: (11) HTN (hypertension): Chronic, controlled, continue current therapy (12) Hypothyroidism: Slightly hypothyroid with a TSH of 6.5. Recheck in outpatient setting. For now continue home levothyroxine. (13) Ischemic cardiomyopathy: Chronic heart failure with reduced ejection fraction, compensated. -EF 25-25% -Discontinued Digoxin 0.125mg daily -Furosemide 20mg daily -Entresto 24-26 daily -Metoprolol succinate 25mg bid (14) Permanent atrial fibrillation: Continue metorpolol (15) Acute urinary retention: Discotninued damian, started tamsulosin. Plan for PVR monitoring as OP in rehab Discharge Exam Constitutional WD/WN, vitals as above Respiratory normal respiratory effort, lungs clear to auscultation Cardiovascular irregular, juan r Updated Medication List Medication Instructions Recorded Confirmed Type nitroglycerin 0.4 mg sublingual 0.4 mg PO UD PRN Chest Pain ##0 07/06/14 09/01/23 History tablet rosuvastatin 5 mg tablet 5 mg PO MWF ##0 07/06/14 09/01/23 History clopidogrel 75 mg tablet 75 mg PO HS #0 tabs 03/26/18 09/01/23 History coenzyme Q10 200 mg capsule 200 mg PO QAM ##0 03/26/18 09/01/23 History furosemide 20 mg tablet 40 mg PO QAM #0 tabs 03/26/18 09/01/23 History cholecalciferol (vitamin D3) 50 2,000 units PO DAILY #0 tabs 07/14/19 09/01/23 History mcg (2,000 unit) tablet cetirizine 10 mg tablet 10 mg PO QAM 07/16/20 09/01/23 History sacubitril 24 mg-valsartan 26 mg 0.5 tab PO AMPM 07/16/20 09/01/23 History tablet (Entresto) ipratropium bromide 21 mcg (0.03 2 spray intranasal BID PRN rhinitis 09/01/23 09/01/23 History %) nasal spray levothyroxine 75 mcg tablet 75 mcg PO DAILYBB 09/01/23 09/01/23 History acetaminophen 500 mg tablet 500 mg PO Q8H 30 days #90 tabs 09/09/23 Rx (Tylenol Extra Strength) melatonin 3 mg tablet 3 mg PO HS PRN sleep 30 days #30 09/09/23 Rx tabs metoprolol succinate 25 mg 25 mg PO BID #60 tabs 09/09/23 Rx tablet,extended release 24 hr tamsulosin 0.4 mg capsule 0.4 mg PO QPM 30 days #30 caps 09/09/23 Rx Hospital Stay Data Consultations 09/01/23 21:34 ED Decision to Admit Stat 09/02/23 07:43 Consult Cardiology Routine 09/05/23 01:22 Consult Urology Routine 09/08/23 08:23 Consult Palliative Care Routine Diagnostic Imagining Performed 09/01/23 17:03 CT cervical spine wo con Stat CT head/brain wo con Stat 09/03/23 09:29 CT head/brain wo con Urgent Pending Results Patient Have Any Pending Studies at Discharge: No Discharge Instructions Given to Patient (Per Discharging Provider) You were admitted for concerns of pneumonia and were treated with antibiotics. Your course was complicated by delirium, which is not uncommon individuals with signs of dementia who are in a new place, ill, and disoriented. #Aspiration pneumonia: Completed course of Unasyn (antibiotics) Doing well on room air, no oxygen needs #Delirium: [place] to be hospital induced delirium in the setting of pneumonia, as well as pain contributing. Continue Tylenol, 500mg every 8 hours #Fall #High INR level -Cardiology discontinued Warfarin due to falls and risk of bleeding. #Coronary artery disease with ICD #Permanent atrial fibrillation #Chronic heart failure with reduced ejection fraction -Pacemaker was checked, the rate was adjusted to 60 beat per minute -Your digoxin was discontinued -Continue Furosemide 20mg daily -Continue Entresto 24-26 daily -Continue Metoprolol succinate 25mg twice a day, this was increased from daily -Discontinue warfarin -Continue plavix #urinary retention -Started on tamsulosin 0.4mg at bedtime You will need to follow up with Cardiology as an outpatient as well as PCP Patient with damian placement and subsequent trauma this admission. damian discontinued 09/09. Patient voiding post removal with 277ml PVR. Please monitor closely for any signs of retention. Tamsulosin started to assist. Total Time Total Time Spent Total Time Spent (In Minutes): 35
[2023-09-10] MEDS ORDERED: TAMSULOSIN HCL 0.4 MG CAP PO SCH (09:00)
== END 2023-09-09 15:39 | DRG 178 ==
LOC: ED 16:44 → EDINP 16:44 → 2W 09-02 05:07 → SUATTDRO 09-02 15:32
DX: S13.4XXA Sprain of ligaments of cervical spine, initial encounter; T45.515A Adverse effect 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s, initial encounter; I48.21 Permanent atrial fibrillation; Z87.891 Personal history of nicotine dependence; R44.3 Hallucinations, unspecified; Z79.01 Long term (current) use 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s; E03.9 Hypothyroidism, unspecified; R41.0 Disorientation, unspecified; Z95.810 Presence of automatic (implantable) cardiac defibrillator; R33.9 Retention of urine, unspecified; I50.22 Chronic systolic (congestive) heart failure; I25.10 Atherosclerotic heart disease of native coronary artery without angina pectoris; D68.32 Hemorrhagic disorder due to extrinsic circulating anticoagulants; D64.9 Anemia, unspecified; J69.0 Pneumonitis due to inhalation of food and vomit; N18.30 Chronic kidney disease, stage 3 unspecified; I13.0 Hypertensive heart and chronic kidney disease with heart failure and stage 1 through stage 4 chronic kidney disease, or unspecified chronic kidney disease; S51.011A Laceration without foreign body of right elbow, initial encounter; Z79.02 Long term (current) use of antithrombotics/antiplatelets; S51.012A Laceration without foreign body of left elbow, initial encounter; I25.5 Ischemic cardiomyopathy; R31.0 Gross hematuria; Y92.009 Unspecified place in unspecified non-institutional (private) residence as the place of occurrence of the external cause; W18.39XA Other fall on same level, initial encounter; Z79.890 Hormone replacement therapy; S00.03XA Contusion of scalp, initial encounter